=== PATIENT | male | born 1965 | race Caucasian/White ===

== ENCOUNTER 2020-01-31 17:36 | Emergency (ER) | payer BC, SELFPAY ==
[2020-01-31 17:45] VITALS: BP 146/83; PULSE 76; RESP 20; TEMP 36.8; O2SAT 97
--- NOTE | 2020-01-31 18:13 | ED.LOWEXIN ---
HPI - Extremity Injury (Lower) General Chief Complaint: Extremity Injury, Lower Stated Complaint: leg pain Source: patient Mode of arrival: ambulatory Limitations: no limitations History of Present Illness HPI Narrative: 54-year-old male presents to express care with complaints of erythema and swelling to his bilateral lower legs for the past 2 days. Patient reports that he has history of cellulitis to his bilateral lower legs for the past 5 to 7 years. Patient reports that he has increased his Lasix to 40 mg twice daily for the past 2 days but has noticed a decreased urine output. Patient reports history of congestive heart failure and stage III kidney failure. Patient denies chest pain, shortness of breath, fever, body aches or chills. Patient reports that he has not been wearing his compression stockings as instructed. MD complaint: other (BLE swelling and erythema ) Onset (ago): day(s) (2) Relieving factors: nothing Exacerbating factors: nothing Other symptoms: none Related Data Home Medications Medication Instructions Recorded Confirmed allopurinol 100 mg PO 01/31/20 amlodipine 5 mg PO DAILY 01/31/20 01/31/20 atorvastatin 40 mg PO DAILY 01/31/20 01/31/20 buspirone 5 mg PO BID 01/31/20 01/31/20 carvedilol 25 mg PO BID 01/31/20 01/31/20 furosemide 20 mg PO DAILY 01/31/20 01/31/20 gabapentin 300 mg PO TID 01/31/20 01/31/20 isosorbide mononitrate 30 mg PO DAILY 01/31/20 01/31/20 paroxetine HCl 10 mg PO DAILY 01/31/20 01/31/20 Allergies Allergy/AdvReac Type Severity Reaction Status Date / Time No Known Allergies Allergy Verified 01/31/20 17:56 Review of Systems Constitutional: Constitutional: Denies chills, Denies fatigue, Denies fever(s) and Denies weakness ENT: Denies dysphagia, Denies dizziness, Denies epistaxis, Denies nasal congestion and Denies sore throat Cardiovascular: Cardiovascular: Denies chest pain, Denies rapid heart rate, Denies radiating jaw, neck or arm pain and Denies slow heart rate Respiratory: Respiratory: Denies cough, Denies dyspnea and Denies wheezing Gastrointestinal: Gastrointestinal: Denies abdominal pain, Denies diarrhea, Denies nausea and Denies vomiting Integumentary/Breasts: Comments: Erythema and swelling to bilateral lower legs with radial forearm and the last medium minutes Endocrine: Endocrine: Denies fatigue PMFSH Past Medical History Medical History (Updated 01/31/20 @ 18:20 by Shantel Tomlinson APRN) CHF (congestive heart failure) Kidney failure Social History Social History (Updated 01/31/20 @ 18:16 by Shantel Tomlinson APRN) Smoking status: Never smoker Exam Const: General: no acute distress and alert Nutritional Appearance: well nourished and obese Orientation/consciousness: patient oriented x3 Neck: Neck: normal visual inspection Resp: Effort & Inspection: normal respiratory effort Auscultation: clear to auscultation bilaterally Cardio: Rate: regular rate, not bradycardic and not tachycardic Rhythm: regular rhythm Heart sounds: no murmurs Back/Spine/Pelvis: Back: no CVA tenderness Skin: General skin exam: normal color Other: Erythema noted to bilateral lower legs. 2+ edema noted to bilateral lower legs. Full range of motion noted. Neuro: General: patient oriented x3, moves all extremities, no meningeal signs and no focal motor deficits Extrem: General: edema (2+) bilateral (lower legs) Other: Mild cellulitis noted to bilateral lower legs. There are some areas of excoriation noted to lower legs. Psych: Appearance: grossly normal Mental Status: mental status grossly normal Affect: normal affect Attitude: cooperative Course Vital Signs Vital signs: Vital Signs Temperature 36.8 C 01/31/20 17:45 Pulse Rate 76 01/31/20 17:45 Respiratory Rate 20 01/31/20 17:45 Blood Pressure 146/83 H 01/31/20 17:45 Pulse Oximetry 97 01/31/20 17:45 Temperature 36.8 C 01/31/20 17:45 Pulse Rate 76 01/31/20 17:45 Respiratory Rate 2
== END 2020-01-31 18:14 | disposition short-term general hospital (02) ==
LOC: EXPGLEN 17:41
PROVIDERS: Emergency Provider Nurse Practitioner Family; PCP Physician Assistant
DX: L03.116 Cellulitis of left lower limb (principal); L03.115 Cellulitis of right lower limb; R60.0 Localized edema; I13.0 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 chronic kidney disease, or unspecified chronic kidney disease; N18.3 Chronic kidney disease, stage 3 (moderate); I50.9 Heart failure, unspecified
CPT/HCPCS: 99212; G0463

== ENCOUNTER 2020-01-31 18:41 | Emergency (ER) | payer BC, SELFPAY ==
--- NOTE | ~2020-01-31 | XR_ITS ---
EXAMINATION: XR chest 2V EXAM DATE: 01/31/2020 19:28 INDICATION: Shortness of breath, CHF. Leg swelling. Stage III kidney disease. TECHNIQUE: Portable AP frontal chest x-ray was obtained. There is no prior study for comparison. FINDINGS: There is mild cardiomegaly. There is pulmonary vascular congestion. No confluent consolidat ion, pneumothorax or pleural effusion suspected. There are no osseous abnormalities identified. IMPRESSION: Cardiomegaly, pulmonary vascular congestion. Reviewed, dictated and finalized at location A.
[2020-01-31 18:48] VITALS: PULSE 85; RESP 26; TEMP 37; O2SAT 98
[2020-01-31 18:56] VITALS: PULSE 82
--- NOTE | 2020-01-31 18:59 | ECG_ITS ---
Measurements Intervals [place] Rate: 83 P: 60 GA: 167 QRS: 44 QRSD: 118 T: 18 QT: 403 QTc: 476 Interpretive Statements SINUS RHYTHM LEFT ATRIAL ENLARGEMENT INTRAVENTRICULAR CONDUCTION DELAY BASELINE ARTIFACT- I, II, III, AVR, AVL, AVF, V1 BORDERLINE ECG Electronically Signed On 02-01-2020 7:03:59 CDT by José Kline D.O.
[2020-01-31 19:09] LABS: Basophils Absolute Auto 0.1 K/mm3 (0.0-0.1); Basophils Percent Auto 0.5 % (0.2-1.2); Eosinophils Absolute Auto 0.7 K/mm3 (0-0.3); Eosinophils Percent Auto 5.2 % (0-4.4); Hematocrit 41.1 % (42.0-52.0); Immature Granulocyte Absolute 0.04 K/mm3 (0.00-0.031); Immature Granulocyte Percent A 0.3 % (0-0.5); Lymphocytes Absolute Auto 3.29 K/mm3 (0.9-3.2); Lymphocytes Percent Auto 25.3 % (18.3-44.2); Mean Corpuscular HGB Conc 31.6 g/dl (32-36); Mean Corpuscular Volume 91.5 fl (80-100); Mean Platelet Volume 11.7 fl (7.4-10.4); Monocytes Percent Auto 7.9 % (2.6-8.5); Neutrophils Absolute Auto 7.9 K/mm3 (1.3-6.7); Neutrophils Percent Auto 60.8 % (45.5-73.1); Platelet Count Result 271 k/mm3 (150-375); Red Blood Count 4.49 M/mm3 (4.6-6.20); Red Cell Distribution Width 15.3 % (11.5-14.5)
--- NOTE | 2020-01-31 19:09 | ED.SOB ---
HPI - SOB/Dyspnea General Chief Complaint: Shortness of Breath/Dyspnea Stated Complaint: Cellulitis bilateral legs Time Seen by Provider: 01/31/20 18:56 Source: patient Mode of arrival: ambulatory Limitations: no limitations History of Present Illness HPI Narrative: This patient is a 54 year old male with history Chronic kidney disease, CHF, sleep apnea who presents from [facility] care for evaluation of leg swelling and shortness of breath. He states over the past 2 days he has had increase swelling to bilateral leg and he reports some orthopnea. He noticed walking into ER he is little more sob. He also noticed some redness to both of his legs. He denies fever , chills, nausea, vomiting or chest pain. 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 He reports negative stress test in November, Related Data Home Medications Medication Instructions Recorded Confirmed allopurinol 200 mg PO BID 01/31/20 amlodipine 5 mg PO DAILY 01/31/20 01/31/20 atorvastatin 40 mg PO DAILY 01/31/20 01/31/20 buspirone 5 mg PO BID 01/31/20 01/31/20 carvedilol 25 mg PO BID 01/31/20 01/31/20 furosemide 20 mg PO BID 01/31/20 01/31/20 gabapentin 300 mg PO TID 01/31/20 01/31/20 isosorbide mononitrate 45 mg PO DAILY 01/31/20 01/31/20 paroxetine HCl 10 mg PO DAILY 01/31/20 01/31/20 Allergies Allergy/AdvReac Type Severity Reaction Status Date / Time No Known Allergies Allergy Verified 01/31/20 17:56 Review of Systems Review of Systems: All systems reviewed & are unremarkable except as noted in HPI and below Constitutional: Constitutional: Denies chills and Denies fever(s) Respiratory: Respiratory: Denies chest congestion, Denies cough, Reports dyspnea and Denies wheezing Gastrointestinal: Gastrointestinal: Denies abdominal pain, Denies diarrhea, Denies nausea and Denies vomiting [facility] Past Medical History Medical History (Updated 01/31/20 @ 21:55 by Meg Delgado MD) CHF (congestive heart failure) Kidney failure Social History Social History (Updated 01/31/20 @ 18:16 by Shantel Tomlinson APRN) Smoking status: Never smoker Exam Const: General: alert Nutritional Appearance: obese Orientation/consciousness: patient oriented x3 HENMT: Face and sinus: face symmetric Mouth: Yes Normal oral and palatal mucosa present, Yes lip normal and Yes oropharynx normal Eyes: EOM: EOMs intact bilaterally Chest: Chest palpation & inspection: normal inspection of the chest Resp: Effort & Inspection: normal respiratory effort, no retractions and no use of accessory muscles Auscultation: clear to auscultation bilaterally Cardio: Rate: regular rate Rhythm: regular rhythm Heart sounds: no murmurs GI: GI Palp: Yes Soft to palpation, No Tenderness to palpation present (GI), No Guarding due to palpation present (GI) and No Rigid due to palpation Back/Spine/Pelvis: Back: no CVA tenderness Skin: Other: bilateral lower legs with dry scaly mildly erythematous skin, stasis dermatitis Neuro: General: patient oriented x3, moves all extremities and No CN's II-XI intact bilaterally Extrem: General: edema bilateral (leg) Psych: Mental Status: mental status grossly normal Affect: normal affect Course Reevaluation(s) Reevaluation #1: I discussed with patient that chest xray shows congestion and chronic kidney disease. He is not requiring oxygen and he is no acute distress. I discussed option of IV lasix in hospital versus going home. HE states he is comfortable with discharge home . He has follow up with his sheet tailer next week. Date: 01/31/20 Time: 21:49 Vital Signs Vital signs: Vital Signs Temperature 98.6 F 01/31/20 18:48 Pulse Rate 85 01/31/20 18:48 Respiratory Rate 26 H 01/31/20 18:48 Pulse Oximetry 98 01/31/20 18:48 Temperature 98.4 F 01/31/20 22:19 Pulse Rate 96 01/31/20 22:19 Respiratory Rate 18 01/31/20 22:19 Blood Pressure 156/95 H 01/31/20 22:19 Pulse Oximetry 95 01/31/20 22
[2020-01-31 19:14] LABS: INR 1.1; Prothrombin Time 13.4 Seconds (11.1-14.7)
[2020-01-31 19:15] LABS: Partial Thromboplastin Time 20.1 SECONDS (22.3-36.8)
[2020-01-31 19:18] LABS: Anion Gap 6 mmol/L (8-16); Blood Urea Nitrogen 31 mg/dL (9-20); Calcium 8.6 mg/dL (8.4-10.2); Carbon Dioxide 33 mmol/L (22-30); Chloride 100 mmol/L (98-107); Estimated Glomerular Filt Rate 42; Glucose 93 mg/dL (75-110); Potassium 4.3 mmol/L (3.4-5.0); Sodium 139 mmol/L (137-145)
[2020-01-31 19:30] LABS: NT Pro B Type Natriuretic Pept 1360 PG/ML (5-100); Troponin I < 0.012 ng/mL (0.000-0.034)
[2020-01-31] MEDS: FUROSEMIDE INJ 40 MG/4 ML VIAL IV PUSH (20:11)
[2020-01-31 22:19] VITALS: BP 156/95; PULSE 96; RESP 18; TEMP 36.9; O2SAT 95
== END 2020-01-31 22:11 | disposition home or self-care (01) ==
PROVIDERS: Emergency Provider General Practice; PCP Physician Assistant
DX: I50.9 Heart failure, unspecified (principal); N18.9 Chronic kidney disease, unspecified; G47.30 Sleep apnea, unspecified; I45.9 Conduction disorder, unspecified; R94.31 Abnormal electrocardiogram [ECG] [EKG]; I51.7 Cardiomegaly
CPT/HCPCS: 36415; 71046; 80048; 83880; 84484; 85025; 85610; 85730; 93005; 96374; 99284; J1940

== ENCOUNTER 2020-09-10 13:54 | Outpatient (CLI) | payer OTHER, BC, SELFPAY ==
--- NOTE | 2020-09-10 15:00 | NEURO_ITS ---
Impression: # Complains of left upper extremity pain. # No Carpal Tunnel Syndrome. # Left ulnar neuropathy. # Left median response on stimulation at the elbow is polyphasic; Suggestive of neuropathy above the wrist. # Normal needle/EMG exam. # Clinical correlation recommended. Nerve Conduction Studies Anti Sensory Summary Table Stim Site NR Peak (ms) P-T Amp (?V) Site1 Site2 Delta-P (ms) Dist (cm) Antoine (m/s) Left Median Anti Sensory (2-3nd Digit) Wrist 3.4 87.7 Wrist 2-3nd Digit 3.4 14.0 41 Wrist 3.7 55.0 Wrist 2-3nd Digit 3.4 14.0 41 Right Median Anti Sensory (2-3nd Digit) Wrist 3.6 21.1 Wrist 2-3nd Digit 3.6 14.0 39 Wrist 3.6 8.3 Wrist 2-3nd Digit 3.6 14.0 39 Left Radial Anti Sensory (Base 1st Digit) Wrist 2.2 14.1 Wrist Base 1st Digit 2.2 0.0 Right Radial Anti Sensory (Base 1st Digit) Wrist 2.7 10.9 Wrist Base 1st Digit 2.7 0.0 Left Ulnar Anti Sensory (5th Digit) Wrist 3.8 35.4 Wrist 5th Digit 3.8 14.0 37 Right Ulnar Anti Sensory (5th Digit) Wrist 3.0 32.6 Wrist 5th Digit 3.0 14.0 47 Motor Summary Table Stim Site NR Onset (ms) O-P Amp (mV) Site1 Site2 Delta-0 (ms) Dist (cm) Antoine (m/s) Left Median Motor (Abd Poll Brev) Wrist 3.6 2.3 Elbow Wrist 6.2 32.0 52 Elbow 9.8 0.3 Right Median Motor (Abd Poll Brev) Wrist 4.2 1.5 Elbow Wrist 5.6 30.0 54 Elbow 9.8 0.5 Left Ulnar Motor (Abd Dig Minimi) Wrist 3.1 5.6 A Elbow Wrist 6.9 32.0 46 A Elbow 10.0 2.9 B Elbow Wrist 6.1 30.0 49 B Elbow 9.2 4.6 Right Ulnar Motor (Abd Dig Minimi) Wrist 3.5 4.9 A Elbow Wrist 5.5 31.0 56 A Elbow 9.0 2.8 F Wave Studies NR F-Lat (ms) L-R F-Lat (ms) Left Median (Mrkrs) (Abd Poll Brev) 31.65 0.24 Right Median (Mrkrs) (Abd Poll Brev) 31.40 0.24 Left Ulnar (Mrkrs) (Abd Dig Min) 32.91 0.23 Right Ulnar (Mrkrs) (Abd Dig Min) 33.15 0.23 EMG Side Muscle Nerve Root Ins Act Fibs Amp Dur Recrt Comment Right 1stDorInt Ulnar C8-T1 Nml Nml Nml Nml Nml Right Ext Indicis Radial (Post Int) C7-8 Nml Nml Nml Nml Nml Right Ext Digitorum Radial (Post Int) C7-8 Nml Nml Nml Nml Nml Right BrachioRad Radial C5-6 Nml Nml Nml Nml Nml Right PronatorTeres Median C6-7 Nml Nml Nml Nml Nml Right Abd Poll Brev Median C8-T1 Nml Nml Nml Nml Nml Left 1stDorInt Ulnar C8-T1 Nml Nml Nml Nml Nml Left Ext Indicis Radial (Post Int) C7-8 Nml Nml Nml Nml Nml Left Ext Digitorum Radial (Post Int) C7-8 Nml Nml Nml Nml Nml Left BrachioRad Radial C5-6 Nml Nml Nml Nml Nml Left PronatorTeres Median C6-7 Nml Nml Nml Nml Nml Left Abd Poll Brev Median C8-T1 Nml Nml Nml Nml Nml MTDD
== END 2020-09-10 13:55 | disposition home or self-care (01) ==
PROVIDERS: Family Provider Emergency Medicine; PCP Physician Assistant; Visit Provider Orthopaedic Surgery
DX: G56.22 Lesion of ulnar nerve, left upper limb (principal); M48.02 Spinal stenosis, cervical region
CPT/HCPCS: 95886; 95911

== ENCOUNTER 2020-09-15 15:59 | Outpatient (CLI) | payer OTHER, BC, SELFPAY ==
--- NOTE | ~2020-09-15 | MR_ITS ---
EXAMINATION: MR cervical spine wo con DATE: 09/15/2020 16:53 INDICATION: Cervical spinal stenosis. Neck pain. TECHNIQUE: Magnetic resonance imaging (MRI) of the cervical spine was performed without intravenous c ontrast. Sequences included sagittal T2-weighted FSE, sagittal STIR FSE, sagittal T1-weighted FSE, ax ial MERGE, and axial T2-weighted FSE. COMPARISON: None FINDINGS: There is kyphosis of cervical spine. Vertebral body heights are normal. There is mildly dec reased disc height at C5-C6 and C6-C7. The spinal cord signal intensity is normal. The following disc levels are specifically discussed: C2-C3: The disc does not extend beyond the endplate margin. There is no uncovertebral joint osteoarth ritis. There is mild left facet joint osteoarthritis. There is ankylosis of right facet joint with mo derate hypertrophy. There is no neural foraminal stenosis. There is no central canal stenosis. C3-C4: The disc does not extend beyond the endplate margin. There is mild bilateral uncovertebral esther nt hypertrophy. There is mild right facet joint osteoarthritis. There is ankylosis of left facet join t with severe hypertrophy. There is mild left neural foraminal stenosis. There is no central canal st enosis. C4-C5: The disc is bulging. There is mild bilateral uncovertebral joint osteoarthritis. There is iwona re right and moderate left facet joint osteoarthritis. There is mild bilateral neural foraminal steno sis. There is mild central canal stenosis. C5-C6: The disc is bulging. There is severe bilateral uncovertebral joint osteoarthritis. There is mi ld left facet joint osteoarthritis. There is mild right and moderate left neural foraminal stenosis. There is mild central canal stenosis. C6-C7: The disc is bulging. There is severe bilateral uncovertebral joint osteoarthritis. There is no facet joint osteoarthritis. There is moderate right and mild left neural foraminal stenosis. There i s mild central canal stenosis. C7-T1: The disc is bulging. There is mild bilateral uncovertebral joint osteoarthritis. There is mild bilateral facet joint osteoarthritis. There is mild left neural foraminal stenosis. There is no cent ral canal stenosis. IMPRESSION: 1. Moderate cervical spondylosis. Reviewed, dictated and finalized at location A.
== END 2020-09-15 16:00 | disposition home or self-care (01) ==
PROVIDERS: PCP Physician Assistant; Visit Provider Orthopaedic Surgery
DX: M48.02 Spinal stenosis, cervical region (principal); M47.812 Spondylosis without myelopathy or radiculopathy, cervical region
CPT/HCPCS: 72141

== ENCOUNTER 2024-05-15 08:05 | Outpatient (CLI) | payer BC, SELFPAY ==
--- NOTE | ~2024-05-15 | MR_ITS ---
EXAMINATION: MR cervical spine wo con DATE: 05/15/2024 08:45 INDICATION: Neck pain. TECHNIQUE: Magnetic resonance imaging (MRI) of the cervical spine was performed without intravenous c ontrast. COMPARISON: MR cervical spine 09/15/2010 FINDINGS: There is kyphosis of cervical spine. There is 2 mm anterolisthesis of C4 on C5. Vertebral b jody heights are normal. There is mildly decreased disc height at C4-C5, C5-C6, and C6-C7 and moderate ly decreased disc height at C7-T1. The spinal cord signal intensity is normal. The following disc lev els are specifically discussed: C2-C3: The disc does not extend beyond the endplate margin. There is no uncovertebral joint osteoarth ritis. There is ankylosis of the right facet joint with moderate hypertrophy. There is mild right jean ral foraminal stenosis. There is no central canal stenosis. C3-C4: The disc does not extend beyond the endplate margin. There is no uncovertebral joint hypertrop hy. There is moderate right facet joint osteoarthritis. There is ankylosis of left facet joint with m oderate hypertrophy. There is mild bilateral neural foraminal stenosis. There is no central canal ladan nosis. C4-C5: The disc is bulging. There is mild bilateral uncovertebral joint osteoarthritis. There is iwona re bilateral facet joint osteoarthritis. There is mild bilateral neural foraminal stenosis. There is mild central canal stenosis. C5-C6: The disc is bulging. There is moderate right and severe left uncovertebral joint osteoarthriti s. There is mild bilateral facet joint osteoarthritis. There is mild bilateral neural foraminal steno sis. There is mild central canal stenosis. C6-C7: The disc is bulging. There is severe bilateral uncovertebral joint osteoarthritis. There is mi ld bilateral facet joint osteoarthritis. There is mild bilateral neural foraminal stenosis. There is no central canal stenosis. C7-T1: The disc is bulging. There is mild right and moderate left uncovertebral joint osteoarthritis. There is severe bilateral facet joint osteoarthritis. There is mild bilateral neural foraminal steno sis. There is mild central canal stenosis. IMPRESSION: 1. Moderate cervical spondylosis, mildly worsened from 09/15/2020. Reviewed, dictated and finalized at location A. D [facility]
--- OUTSIDE RECORDS SUMMARY | 2024-05-22 05:40 | XMS_ITS | Clinical Summary ---
Author Organization [facility] Address [address] [place] [address] Care Team Providers Care Philosophy And Religion Instructor Name Role Phone Puneet Hughes MD Primary Care Provider [phone] Source Comments [facility],non-owned Affiliates and Associated Physician Practices is amultiple site organization consisting of ambulatory clinics and hospital sitesin [place], [place], [place] and [place]. This disclosure is being madepursuant to the Care Everywhere program and may not contain all information available regarding this patient. Last updated 18.[facility] Allergies Active Allergy Reactions Criticality Noted Date Comments Aspirin Unknown Medium 08/04/2020 hematuria Medications * Be aware that medications may not be up to date on this document. Alwaysverify current medications with the patient. Medication Sig Dispensed Refills Start Date End Date Status atorvastatin (LIPITOR) 40 MG tablet every 24 hours Active Multiple Vitamin (DAILY-RAKESH) TABS Take 1 tablet by mouth once daily Active Cyanocobalamin (B-12 PO) Active CALCIUM PO Active furosemide (LASIX) 40 MG tablet Take 0.5 (one-half) tablet by mouth every other day as needed 05/13/2020 Active acetaminophen (TYLENOL) 325 MG tablet Take 2 (two) tablets by mouth 11/07/2019 Active allopurinol (ZYLOPRIM) 100 MG tablet 03/03/2021 Active gabapentin (NEURONTIN) 600 MG tablet 03/05/2021 Active loratadine (Claritin) 10 MG tablet Take 1 (one) tablet by mouth once daily as directed. 03/03/2023 Active aspirin (Aspirin) 81 MG chew tabletIndications:Ch est pain, unspecified type Take 1 (one) tablet by mouth once daily 100 tablet 4 06/21/2023 Active nitroGLYCERIN (Nitrostat) 0.4 MG tabletIndications:Ch est pain, unspecified type Dissolve 1 (one) tablet under the tongue every 5 minutes as needed for Angina 30 tablet 06/21/2023 Active metoprolol succinate XL 24hr (Toprol XL) 25 MG tabletIndications:Ch est pain, unspecified type TAKE 1 TABLET BY MOUTH EVERY DAY 90 tablet 06/21/2023 Active Active Problems Problem Noted Date Diagnosed Date Chest pain, unspecified type 06/23/2023 Bilateral leg edema 01/16/2021 Lymphedema of both lower extremities 01/16/2021 Acute pain of right knee 11/20/2020 Heart palpitations 07/24/2020 Assessment & Plan (08/26/2020 9:33 AM CDT): Device with no concern for arrhythmia or PVC burden, continue BB. No further work up at this time. Assessment & Plan (07/24/2020 12:59 PM RUBBER GOODS SUPERVISOR): Unclear Etiology, 14 day Holter, BB. Congestive heart failure 02/01/2020 Assessment & Plan (07/24/2020 12:04 PM RU[employer]ER [employer] SUPERVISOR): Stable and Euvolemicon Exam. HFpEF. Continue Coreg 25 mg BID and Imdur 30mg daily. No maco, aldactone or ARB given CKD and Hyperkalemia in the past. Morbid obesity 02/01/2020 Assessment & Plan (05/04/2021 1:46 PM [employer]ER [employer] SUPERVISOR): SP gastric sleeve. Now with weight loss of 90lbs. Stable. Will need to monitor blood pressure as weight loss stabilizes. Pulmonary hypertension 11/07/2019 Assessment & Plan (11/09/2019 11:32 AM CDT): CT mentioned, however ECHO in May said no PHNT, pt has follow up with OSH Pulmonary team. Continue Lasix, CPAP and Oxygen therapy. Orthostasis 11/07/2019 Assessment & Plan (11/09/2019 11:31 AM CDT): Resolved in the setting of dehydration and ETOH and antihypertensives. No further work up at this time. Acute on chronic diastolic heart failure 020 Assessment & Plan (08/26/2020 9:32 AM CDT): Chronic HFpEF with 40lb weight loss since 08/04 following gastric sleeve. Now with orthostatic changes and hypotension at home. No MACO?ARB given CKD. Stop Imdur and change lasix to PRN weight gain, edema. Decrease Coreg to 12.5mg BID. Message in one week with update on SBP at home. Follow up as scheduled with Dr. Moreno in January 2021. Near syncope 11/03/2019 Chest pain 06/11/2019 Assessment & Plan (06/21/2023 8:23 PM RU[employer]ER [employer] SUPERVISOR): The history is very concerning. The characteristics, recent onset, exertional onset, alleviated by rest, frequency and duration are concerning. Conversely, the fact that he had the pain in 2019 for which he underwent cardiac cath demonstrating nonobstructive coronary arteries perhaps makes it slightly less likely to be cardiac. In sum, I still think urgent evaluation is warranted given the history. -Arrange urgent cardiac catheterization within days -Advised the patient if the symptomatology changes (especially duration and intensity), he should revisit the ER before arranged outpatient cardiac catheterization -Start aspirin -Start metoprolol succinate, nitroglycerin as needed -Obtain echo Need for influenza vaccination 05/13/2019 Class 3 severe obesity due t o excess calories without serious comorbidity with body mass index (BMI) of 45.0 to 49.9 in adult 05/13/2019 Essential hypertension 05/13/2019 Assessment & Plan (06/21/2023 8:25 PM RU[employer]ER [employer] SUPERVISOR): Endorses blood pressure within goal at home. Adding metoprolol as mentioned. Assessment & Plan (05/07/2021 11:24 AM RU[employer]ER [employer] SUPERVISOR): SBP 120 at home, with DBP in the 70's per his report. Will continue to monitor at home, can consider resuming low dose Coreg 3.125mg BID if needed. Pt will reach out if warrants. After review of his medications, he has no contraindication to ED medications, PRN. Assessment & Plan (11/09/2019 11:30 AM CDT): Continue Coreg, Norvasc and Lasix. LVH (left ventricular hypert rophy) due to hypertensive disease, with heart failure 05/13/2019 Assessment & Plan (06/21/2023 8:24 PM RU[employer]ER [employer] SUPERVISOR): Repeat echo Assessment & Plan (11/09/2019 11:29 AM CDT): Pt resumed Coreg and Norvasc after hospital discharge. Continue Coreg 25g BID, Norvasc 5mg daily and Lasix 20mg BID BMP next week. Lisinopril stopped hyperklemia. Mixed hyperlipidemia 05/13/2019 Assessment & Plan (06/21/2023 8:24 PM RU[employer]ER [employer] SUPERVISOR): Continue atorvastatin Check lipid profile Pedal edema 05/13/2019 Assessment & Plan (05/04/2021 1:48 PM RU[employer]ER [employer] SUPERVISOR): Resume Lasix daily, will help with hyperkalemia and lower extremity edema. Assessment & Plan (11/09/2019 11:30 AM CDT): Support stockings and Lasix 20mg BID. CRD (chronic renal disease), stage II 05/13/2019 Assessment & Plan (08/26/2020 9:34 AM CDT): Follow up with Nephrology for recs on Hyperkalemia, off all potassium sparing agents. Their team for recs for resuming Valtessa. Appreciate their rec, imdur stopped, coreg decreased and lasix changed to PRN. Assessment & Plan (07/24/2020 12:07 PM RU[employer]ER [employer] SUPERVISOR): Follow up with Nephrology for recs on Hyperkalemia, off all potassium sparing agents. Their team for recs for resuming Valtessa. Chronic right heart failure 05/13/2019 Snoring 05/13/2019 MIRELLA (obstructive sleep apnea) 05/13/2019 Assessment & Plan (08/26/2020 9:34 AM CDT): Compliant with CPAP. Assessment & Plan (07/24/2020 12:04 PM RU[employer]ER [employer] SUPERVISOR): Compliant with CPAP. Assessment & Plan (11/09/2019 11:31 AM CDT): CPAP. Resolved Problems Problem Noted Date Diagnosed Date Resolved Date Cerebrovascular accident (CV A) due to occlusion of cerebral artery 11/20/2020 11/21/2020 Immunizations Name Administration Dates Next Due INFLUENZA 02/24/2020 INFLUENZA VACCINE, QUADR. (F LUZONE; FLULAVAL; FLUARIX; AFLURIA QUADRIVALENT; 6MO+), 0.5 ML (IIV4) 05/11/2019 PNEUMOCOCCAL PPSV23 03/31/2020,04/29/2015 Family History Medical History Relation Name Comments Other Mother pulmonary hyper tension Other Nephew pulmonary hyper tension Relation Name Status Comments Mother Nephew Social History Tobacco Use Types Packs/Day Years Used Date Smoking Tobacco: Never Smokeless Tobacco: Never Tobacco Cessation:Counseling Given: Not Answered Alcohol Use Standard Drinks/Week Comments Yes 0 (1 standard drink = 0.6 oz pur e alcohol) 2 drinks per month Sex and Gender Information Value Date Recorded Sex Assigned at Not on file Gender Identity Not on file Sexual Orientation Not on file Last Filed Vital Signs Vital Sign Reading Time Taken Comments Blood Pressure 130/81 06/23/2023 7:01 PM [employer]ER [employer] SUPERVISOR Pulse 51 06/23/2023 7:01 PM [employer] SUPERVISOR Temperature 36.7 ??C (98.1 ??F) 06/23/2023 4:28 PM CS T Respiratory Rate 15 06/23/2023 7:01 PM [employer] SUPERVISOR Oxygen Saturation 95% 06/23/2023 7:01 PM [employer] SUPERVISOR Inhaled Oxygen Concentration 30% 11/21/2020 4 :22 AM CDT Weight 122.7 kg (270 lb 9.6 oz) 024 11:51 AM [employer]ER [employer] SUPERVISOR Height 185.4 cm (6' 1 ) 06/23/2023 11:5 1 AM [employer] SUPERVISOR Body Mass Index 35.7 06/23/2023 11:51 AM [employer]ER [employer] SUPERVISOR Plan of Treatment Health Maintenance Due Date Last Done Comments COLOGUARD (AGES 45-75) - COLON CA SCREENING 1964 COLON MONITORING 1964 COLONOSCOPY - COLON CA SCREENING 1964 CT COLONOGRAPHY - COLON CA SCREENING 1964 Colorectal Cancer Screening 1964 FIT - COLON CA SCREENING 1964 FLEX SIG - COLON CA SCREENING 1964 DTAP/TDAP/TD VACCINES (1 - Tdap) 11/13/1983 HEPATITIS B VACCINE (1 of 3 - 19+ 3-dose series) 11/13/1983 ZOSTER VACCINE (1 of 2) 2014 PNEUMOCOCCAL VACCINE (2 of 2 - PCV) 03/31/2021 03/31/2020, 04/29/2015 DEPRESSION SCREENING 05/23/2023 COVID-19 VACCINE (4 - season) 2024 04/27/2021, 07/09/2020, 06/06/2020 INFLUENZA VACCINE (#1) 2024 2, 02/24/2020, 05/11/2019, Additional history exists SCREENING FOR DIABETES 06/19/2026 4, 04/20/2021, 04/20/2021, Additional history exists HEPATITIS C SCREENING Completed 06/11/2019 HIV SCREENING Completed 06/11/2019 HIB VACCINE Aged Out No longer eligi ble based on patient's age to complete this topic HPV VACCINE Aged Out No longer eligi ble based on patient's age to complete this topic MENINGOCOCCAL VACCINE Aged Out No leigh ann negrita eligible based on patient's age to complete this topic Goals Goal Patient Goal Type Associated Problems Recent Progress Patient-Stated? Author Medication Management General On track( 021 3:13 PM CDT) Zoraida Conde, RN Note: Expected end date: ongoing Interventions: Take all medications as prescribed Let your doctor know right away about any changes in your medications Make sure to request a refill of your medication at least one week prior to your last dose Procedures Procedure Name Priority Date/Time Associated Diagnosis Comments COMPREHENSIVE METABOLIC PANEL STAT 06/19/2023 3:57 PM [employer]ER [employer] SUPERVISOR HEPATITIS C AB SCREEN RFLX NAAT QUANT STAT 06/11/2019 10:29 PM [employer] SUPERVISOR HIV-1 HIV-2 ANTIGEN/ANTIBODY STAT 06/11/2019 10:29 PM [employer]ER [employer] SUPERVISOR from Last 3 Months or Most Recently Relevant to Health Maintenance Results * (ABNORMAL) COMPREHENSIVE METABOLIC PANEL (06/19/2023 3:57 PM [employer]ER [employer] SUPERVISOR) BUN 23 7 - 26 mg/dL 06/19/2023 4:57 PM [facility] Creatinine 1.36(H) 0.71 - 1.16 mg/dL 06/19/2023 4:57 PM [facility] Sodium 142 136 - 145 mmol/L 06/19/2023 4:57 PM [facility] Potassium 4.2 3.5 - 4.5 mmol/L 06/19/2023 4:57 PM [facility] Chloride 106 98 - 107 mmol/L 06/19/2023 4:57 PM [facility] CO2 28 22 - 29 mmol/L 06/19/2023 4:57 PM [facility] Glucose 88 70 - 115 mg/dL 06/19/2023 4:57 PM [facility] Calcium 9.2 8.4 - 10.2 mg/dL 06/19/2023 4:57 PM [facility] Protein Total 7.5 6.0 - 8.3 g/dL 06/19/2023 4:57 PM [facility] Albumin 3.4 3.4 - 5.0 g/dL 06/19/2023 4:57 PM [facility] Bilirubin Total 0.5 0.2 - 1.2 mg/dL 06/19/2023 4:57 PM [facility] Alkaline Phosphatase 105 40 - 150 U/L 06/19/2023 4:57 PM [facility] ALT 18 5 - 55 U/L 06/19/2023 4:57 PM [facility] AST 24 5 - 34 U/L 06/19/2023 4:57 PM [facility] Anion Gap 8 6 - 16 06/19/2023 4:57 PM [facility] BUN/Creatinine Ratio 17 7 - 23 06/19/2023 4:57 PM [facility] Osmolality Calculated 297(H) 275 - 295 mOsm/kg 06/19/2023 4:57 PM [facility] Albumin/Globulin Ratio 0.8(L) 1.1 - 2.3 06/19/2023 4:57 PM [facility] eGFR by CKD-EPI 60(L) >=90 mL/min/1.7 3 m2 06/19/2023 4:57 PM [facility] Blood BLOOD SPECIMEN / Unknown Venipuncture / Unknown 06/19/2023 3:57 PM [employer] SUPERVISOR 06/19/2023 4:27 PM [employer] SUPERVIS[employer] Nena Ro PA-C LAB - CHEMISTRY OR DERABLES Performing Organization Address [facility]/ZIP Co de Phone Number [facility] [address] [place] [address], [place] [phone] * HIV-1 HIV-2 ANTIGEN/ANTIBODY (06/11/2019 10:29 PM [employer]ER [employer] SUPERVISOR) HIV Antigen/Antibod y 1 & 2 Non-reacti ve Non-react almaz 06/11/2019 11:16 [address] [employer] [facility] Comment: Neither HIV-1 p24 Antigen nor HIV-1/HIV-2 Antibodies are detected. ? Blood BLOOD SPECIMEN / Unknown Venipuncture / Unknown 06/11/2019 10:29 PM [employer]ER [employer] SUPERVISOR 06/11/2019 10:32 PM [employer] SUPERVIS[employer] Yonas Lao MD LAB - HEMATOLOGY ORD ERABLES [facility] [address] [place] [address], [facility] [phone] * HEPATITIS C AB SCREEN RFLX NAAT QUANT (06/11/2019 10:29 PM RU[employer]ER [employer] SUPERVISOR) Hepatitis C Antibody Non-react almaz Non-reac tive 06/11/2019 11:[address] [employer] [address] [facility] Comment: Hepatitis C Antibody screen indicates no serologic evidence of past or current infection with Hepatitis C Virus. Patients with unexplained liver disease who are immunocompromised or suspected of having acute Hepatitis C infection may benefit from Nucleic Acid Test (EARL) for Hepatitis C Viral RNA to confirm Hepatitis C status. Blood BLOOD SPECIMEN / Unknown Venipuncture / Unknown 06/11/2019 10:29 PM RU[employer]ER [employer] SUPERVISOR 06/11/2019 10:32 PM [employer]ER [employer] SUPERVISOR Yonas Lao MD LAB - CHEMISTRY [facility]NAN[facility] Organization Address City/State/ZIP Co de Phone Number [address] [phone] from Last 3 Months or Most Recently Relevant to Health Maintenance Advance Directives * Full Code (Latest Code Status on File) Date Activated Date Inactivated Comments 06/23/2023 4:39 PM 06/23/2023 8:33 PM * Full Code Date Activated Date Inactivated Comments 11/20/2020 8:16 AM 11/21/2020 6:45 PM * Full Code Date Activated Date Inactivated Comments 11/20/2020 8:08 AM 11/20/2020 8:16 AM * Full Code Date Activated Date Inactivated Comments 02/01/2020 11:23 PM 02/04/2020 11:32 AM * Full Code Date Activated Date Inactivated Comments 11/03/2019 10:16 PM 11/07/2019 12:27 PM Care Teams Philosophy And Religion Instructor Relationship Specialty Start Date End Date Puneet Hughes MD PCP - General Internal Medicine 06/21/23
--- OUTSIDE RECORDS SUMMARY | 2024-05-22 05:40 | XMS_ITS | Encounter Summary ---
Author Organization [facility] Address [address] [place] [address] Care Team Providers Care Package Handler Name Role Phone Puneet Hughes MD Primary Care Provider [phone] Encounter Details Date Type Department Care Team (Late st Contact Info) Description 07/27/2023 Orders Only [facility] - Cardiology [address], [facility] [address] [place] [id number] Chen Longoria RN Mixed hyperlipidemia ; LVH (left ventricular hypertrophy) due to hypertensive disease, with heart failure (HCC); Chronic right heart failure (HCC); Chest pain, unspecified type Social History Tobacco Use Types Packs/Day Years Used Date Smoking Tobacco: Never Smokeless Tobacco: Never Alcohol Use Standard Drinks/Week Comments Yes 0 (1 standard drink = 0.6 oz pur e alcohol) 2 drinks per month Sex and Gender Information Value Date Recorded Sex Assigned at Not on file Gender Identity Not on file Sexual Orientation Not on file documented as of this encounter Functional Status Functional Status Response Date of Assess ment Is person deaf or have serious hearing difficult y? No 06/23/2023 Is person blind or have serious difficulty seein g? Yes 06/23/2023 Does person have serious dif ficulty walking/climbing stairs? No 06/23/2023 Does person have difficulty dressing/bathing? No 06/23/2023 Does person have difficulty doing errands alone? No 06/23/2023 Cognitive Status Response Date of Assessm ent Does person have difficulty concentrating/remembering/making decisions? No 06/23/2023 documented as of this encounter Miscellaneous Notes * Addendum Note - Chen Longoria RN - 07/27/2023 2:59 PM CSTAddended by: CHEN LONGORIA on: 07/27/2023 02:59 PM Modules accepted: Orders ALTY CLAIMS SUPERVISOR documented in this encounter Plan of Treatment Scheduled Orders Name Type Priority Associated Diagnoses Orde r Schedule LIPID PROFILE Lab Routine Mixed hyperlipidemia Ordered: 07/27/2023 CBC W AUTO DIFFERENTIAL Lab Routine Mixed hyperlipidemia LVH (left ventricular hypertrophy) due to hypertensive disease, with heart failure (HCC) Chronic right heart failure (HCC) Chest pain, unspecified type 1 Occurrences starting 07/27/2023 until 08/26/2024 BASIC METABOLIC PANEL (CALCIUM TOTAL) Lab Routine Mixed hyperlipidemia LVH (left ventricular hypertrophy) due to hypertensive disease, with heart failure (HCC) Chronic right heart failure (HCC) Chest pain, unspecified type Ordered: 07/27/2023 documented as of this encounter Goals Goal Patient Goal Type Associated Problems Recent Progress Patient-Stated? Author Medication Management General On track( 021 3:13 PM CDT) No Zoraida Velasquez, RN Note: Expected end date: ongoing Interventions: Take all medications as prescribed Let your doctor know right away about any changes in your medications Make sure to request a refill of your medication at least one week prior to your last dose documented as of this encounter Visit Diagnoses Diagnosis Mixed hyperlipidemia- Primary LVH (left ventricular hypertrophy) due to hypertensive disease, with heart failure (HCC) Chronic right heart failure (HCC) Chest pain, unspecified type documented in this encounter Care Teams Package Handler Relationship Specialty Start Date End Date Puneet Hughes MD PCP - General Internal Medicine 06/21/23 documented as of this encounter
--- OUTSIDE RECORDS SUMMARY | 2024-05-22 05:40 | XMS_ITS | CONTINUITY OF CARE DOCUMENT ---
Author Name dwayne rice Address Unknown Organization [facility] Address [id number] [place] [address] [address] [place] [address] Phone [phone] Care Team Providers Care Lock Assembler Name Role Phone Dillon Savage MD Unavailable [phone] INSURANCE PROVIDERS Payer name Policy type / Coverage type [place] red green party ID [id number]
--- OUTSIDE RECORDS SUMMARY | 2024-05-22 05:40 | XMS_ITS | Referral Summary ---
Author Organization [facility] Address [address] [place] [address] Care Team Providers Care Print Shop Stenographer Name Role Phone Puneet Hughes MD Primary Care Provider [phone] Source Comments [facility],non-owned Affiliates and Associated Physician Practices is amultiple site organization consisting of ambulatory clinics and hospital sitesin [place], [place], [place] and [place]. This disclosure is being madepursuant to the Care Everywhere program and may not contain all information available regarding this patient. Last updated 18.[facility] Allergies Active Allergy Reactions Criticality Noted Date [...] time. Assessment & Plan (07/24/2020 12:59 PM MICROBIOLOGY TEACHER): Unclear Etiology, 14 day Holter, BB. Congestive heart failure 02/01/2020 Assessment & Plan (07/24/2020 12:04 PM MICROBIOLOGY TEACHER): Stable and Euvolemicon Exam. HFpEF. Continue Coreg 25 mg BID and Imdur 30mg daily. No maco, aldactone or ARB given CKD and Hyperkalemia in the past. Morbid obesity 02/01/2020 Assessment & Plan (05/04/2021 1:46 PM MICROBIOLOGY TEACHER): SP gastric sleeve. Now with weight loss [...] 06/11/2019 Assessment & Plan (06/21/2023 8:23 PM MICROBIOLOGY TEACHER): The history is very concerning. The characteristics, [...] 05/13/2019 Assessment & Plan (06/21/2023 8:25 PM MICROBIOLOGY TEACHER): Endorses blood pressure within goal at home. Adding metoprolol as mentioned. Assessment & Plan (05/07/2021 11:24 AM MICROBIOLOGY TEACHER): SBP 120 at home, with DBP in [...] 05/13/2019 Assessment & Plan (06/21/2023 8:24 PM MICROBIOLOGY TEACHER): Repeat echo Assessment & Plan (11/09/2019 11:29 AM CDT): Pt resumed Coreg and Norvasc after hospital discharge. Continue Coreg 25g BID, Norvasc 5mg daily and Lasix 20mg BID BMP next week. Lisinopril stopped hyperklemia. Mixed hyperlipidemia 05/13/2019 Assessment & Plan (06/21/2023 8:24 PM MICROBIOLOGY TEACHER): Continue atorvastatin Check lipid profile Pedal edema 05/13/2019 Assessment & Plan (05/04/2021 1:48 PM MICROBIOLOGY TEACHER): Resume Lasix daily, will help with hyperkalemia [...] PRN. Assessment & Plan (07/24/2020 12:07 PM MICROBIOLOGY TEACHER): Follow up with Nephrology for recs on Hyperkalemia, off all potassium sparing agents. Their team for recs for resuming Valtessa. Chronic right heart failure 05/13/2019 Snoring 05/13/2019 MIRELLA (obstructive sleep apnea) 05/13/2019 Assessment & Plan (08/26/2020 9:34 AM CDT): Compliant with CPAP. Assessment & Plan (07/24/2020 12:04 PM MICROBIOLOGY TEACHER): Compliant with CPAP. Assessment & Plan (11/09/2019 11:31 AM CDT): CPAP. Resolved Problems Problem Noted Date Diagnosed Date Resolved Date Cerebrovascular accident (CV A) due to occlusion of cerebral artery 11/20/2020 11/21/2020 Immunizations Name Administration Dates Next Due INFLUENZA 02/24/2020 INFLUENZA VACCINE, QUADR. (F LUZONE; FLULAVAL; FLUARIX; AFLURIA QUADRIVALENT; 6MO+), 0.5 ML (IIV4) 05/11/2019 PNEUMOCOCCAL PPSV23 03/31/2020,04/29/2015 Social History Tobacco Use Types Packs/Day Years [...] Comments Blood Pressure 130/81 06/23/2023 7:01 PM MICROBIOLOGY TEACHER Pulse 51 06/23/2023 7:01 PM MICROBIOLOGY TEACHER Temperature 36.7 ??C (98.1 ??F) 06/23/2023 4:28 PM CS T Respiratory Rate 15 06/23/2023 7:01 PM MICROBIOLOGY TEACHER Oxygen Saturation 95% 06/23/2023 7:01 PM MICROBIOLOGY TEACHER Inhaled Oxygen Concentration 30% 11/21/2020 4 :22 AM CDT Weight 122.7 kg (270 lb 9.6 oz) 024 11:51 AM MICROBIOLOGY TEACHER Height 185.4 cm (6' 1 ) 06/23/2023 11:5 1 AM MICROBIOLOGY TEACHER Body Mass Index 35.7 06/23/2023 11:51 AM MICROBIOLOGY TEACHER Functional Status Functional Status Response Date of [...] person have difficulty concentrating/remembering/making decisions? No 06/23/2023 Plan of Treatment Not on file Goals Goal Patient Goal Type Associated Problems [...] COMPREHENSIVE METABOLIC PANEL STAT 06/19/2023 3:57 PM MICROBIOLOGY TEACHER HEPATITIS C AB SCREEN RFLX NAAT QUANT STAT 06/11/2019 10:29 PM MICROBIOLOGY TEACHER HIV-1 HIV-2 ANTIGEN/ANTIBODY STAT 06/11/2019 10:29 PM MICROBIOLOGY TEACHER from Last 3 Months or Most Recently Relevant to Health Maintenance Results * (ABNORMAL) COMPREHENSIVE METABOLIC PANEL (06/19/2023 3:57 PM MICROBIOLOGY TEACHER) BUN 23 7 - 26 mg/dL 06/19/2023 4:57 PM [facility] Creatinine 1.36(H) 0.71 - 1.16 mg/dL 06/19/2023 4:57 PM [facility] Sodium 142 136 - 145 mmol/L 06/19/2023 4:57 PM [facility] Potassium 4.2 3.5 - 4.5 mmol/L 06/19/2023 4:57 PM [facility] Chloride 106 98 - 107 mmol/L 06/19/2023 4:57 PM [facility] CO2 28 22 - 29 mmol/L 06/19/2023 4:57 PM [facility] Glucose 88 70 - 115 mg/dL 06/19/2023 4:57 PM [facility] Calcium 9.2 8.4 - 10.2 mg/dL 06/19/2023 4:57 PM [facility] Protein Total 7.5 6.0 - 8.3 g/dL 06/19/2023 4:57 PM [facility] Albumin 3.4 3.4 - 5.0 g/dL 06/19/2023 4:57 PM [facility] Bilirubin Total 0.5 0.2 - 1.2 mg/dL 06/19/2023 4:57 PM [facility] Alkaline Phosphatase 105 40 - 150 U/L 06/19/2023 4:57 PM [facility] ALT 18 5 - 55 U/L 06/19/2023 4:57 PM [facility] AST 24 5 - 34 U/L 06/19/2023 4:57 PM [facility] Anion Gap 8 6 - 16 06/19/2023 4:57 PM [facility] BUN/Creatinine Ratio 17 7 - 23 06/19/2023 4:57 PM [facility] Osmolality Calculated 297(H) 275 - 295 mOsm/kg 06/19/2023 4:57 PM [facility] Albumin/Globulin Ratio 0.8(L) 1.1 - 2.3 06/19/2023 4:57 PM [facility] eGFR by CKD-EPI 60(L) >=90 mL/min/1.7 3 m2 06/19/2023 4:57 PM [facility] Blood BLOOD SPECIMEN / Unknown Venipuncture / Unknown 06/19/2023 3:57 PM MICROBIOLOGY TEACHER 06/19/2023 4:27 PM [facility] Nena Ro PA-C LAB - CHEMISTRY OR DERABLES [address] [address], [facility] [phone] * HIV-1 HIV-2 ANTIGEN/ANTIBODY (06/11/2019 10:29 PM MICROBIOLOGY TEACHER) HIV Antigen/Antibod y 1 & 2 Non-reacti ve Non-react almaz 06/11/2019 11:16 PM MICROBIOLOGY TEACHER [facility] Comment: Neither HIV-1 p24 Antigen nor HIV-1/HIV-2 Antibodies are detected. ? Blood BLOOD SPECIMEN / Unknown Venipuncture / Unknown 06/11/2019 10:29 PM MICROBIOLOGY TEACHER 06/11/2019 10:32 PM MICROBIOLOGY TEACHER Yonas Lao MD LAB - HEMATOLOGY ORD ERABLES [address] [phone] * HEPATITIS C AB SCREEN RFLX NAAT QUANT (06/11/2019 10:29 PM MICROBIOLOGY TEACHER) Pathologist [facility] Hepatitis C Antibody Non-react almaz Non-reac tive 06/11/2019 11:16 PM MICROBIOLOGY TEACHER [facility] Comment: Hepatitis C Antibody screen indicates no serologic evidence of past or current infection with Hepatitis C Virus. Patients with unexplained liver disease who are immunocompromised or suspected of having acute Hepatitis C infection may benefit from Nucleic Acid Test (EARL) for Hepatitis C Viral RNA to confirm Hepatitis C status. Blood BLOOD SPECIMEN / Unknown Venipuncture / Unknown 06/11/2019 10:29 PM MICROBIOLOGY TEACHER 06/11/2019 10:32 PM MICROBIOLOGY TEACHER Yonas Lao MD LAB - CHEMISTRY [facility] [address] [phone] from Last 3 Months or Most Recently [...] 10:16 PM 11/07/2019 12:27 PM Care Teams Print Shop Stenographer Relationship Specialty Start Date End Date Puneet Hughes MD PCP - General Internal Medicine 06/21/23
--- OUTSIDE RECORDS SUMMARY | 2024-05-22 05:40 | XMS_ITS | Patient Health Summary ---
Author Organization [facility] [employer] Address [address] [place] [address] Care Team Providers Care Event Promoter Name Role Phone Ashley Hughes MD Primary Care Provider [phone] Note from [facility],non-owned Affiliates and Associated Physician Practices is amultiple site organization consisting of ambulatory clinics and hospital sitesin [place], [place], [place] and [place]. This disclosure is being madepursuant to the Care Everywhere program and may not contain all information available regarding this patient. Last updated 18.[facility] Allergies * Aspirin(Unknown) -Medium Criticality Medications * Be aware that medications may not be up to date on this document. Alwaysverify current medications with the patient. * atorvastatin (LIPITOR) 40 MG tablet every 24 hours * Multiple Vitamin (DAILY-RAKESH) TABS Take 1 tablet by mouth once daily * Cyanocobalamin (B-12 PO) * CALCIUM PO * furosemide (LASIX) 40 MG tablet(Started 05/13/2020) Take 0.5 (one-half) tablet by mouth every other day as needed * acetaminophen (TYLENOL) 325 MG tablet(Started 11/07/2019) Take 2 (two) tablets by mouth * allopurinol (ZYLOPRIM) 100 MG tablet(Started 03/03/2021) * gabapentin (NEURONTIN) 600 MG tablet(Started 03/05/2021) * loratadine (Claritin) 10 MG tablet(Started 03/03/2023) Take 1 (one) tablet by mouth once daily as directed. * aspirin (Aspirin) 81 MG chew tablet(Started 06/21/2023) Take 1 (one) tablet by mouth once daily 4 refills by 06/20/2024 * nitroGLYCERIN (Nitrostat) 0.4 MG tablet(Started 06/21/2023) Dissolve 1 (one) tablet under the tongue every 5 minutes as needed for Angina * metoprolol succinate XL 24hr (Toprol XL) 25 MG tablet(Started 06/21/2023) TAKE 1 TABLET BY MOUTH EVERY DAY Active Problems Problem Noted Date Diagnosed Date Chest pain, unspecified type 06/23/2023 Bilateral leg edema 01/16/2021 Lymphedema of both lower extremities 01/16/2021 Acute pain of right knee 11/20/2020 Heart palpitations 07/24/2020 Congestive heart failure 02/01/2020 Morbid obesity 02/01/2020 Pulmonary hypertension 11/07/2019 Orthostasis 11/07/2019 Acute on chronic diastolic heart failure 020 Near syncope 11/03/2019 Chest pain 06/11/2019 Need for influenza vaccination 05/13/2019 Class 3 severe obesity due t o excess calories without serious comorbidity with body mass index (BMI) of 45.0 to 49.9 in adult 05/13/2019 Essential hypertension 05/13/2019 LVH (left ventricular hypert rophy) due to hypertensive disease, with heart failure 05/13/2019 Mixed hyperlipidemia 05/13/2019 Pedal edema 05/13/2019 CRD (chronic renal disease), stage II 05/13/2019 Chronic right heart failure 05/13/2019 Snoring 05/13/2019 MIRELLA (obstructive sleep apnea) 05/13/2019 Resolved Problems Problem Noted Date Diagnosed Date Resolved Date Cerebrovascular accident (CV A) due to occlusion of cerebral artery 11/20/2020 11/21/2020 Immunizations * INFLUENZA(Given 02/24/2020) * INFLUENZA VACCINE, QUADR. (FLUZONE; FLULAVAL; FLUARIX; AFLURIA QUADRIVALENT; 6MO+), 0.5 ML (IIV4)(Given 05/11/2019) * PNEUMOCOCCAL PPSV23(Given 03/31/2020, 04/29/2015) Social History Tobacco Use Types Packs/Day Years [...] Comments Blood Pressure 130/81 06/23/2023 7:01 PM CLERICAL PROOFREADER Pulse 51 06/23/2023 7:01 PM CLERICAL PROOFREADER Temperature 36.7 ??C (98.1 ??F) 06/23/2023 4:28 PM CS T Respiratory Rate 15 06/23/2023 7:01 PM CLERICAL PROOFREADER Oxygen Saturation 95% 06/23/2023 7:01 PM CLERICAL PROOFREADER Inhaled Oxygen Concentration 30% 11/21/2020 4 :22 AM CDT Weight 122.7 kg (270 lb 9.6 oz) 024 11:51 AM CLERICAL PROOFREADER Height 185.4 cm (6' 1 ) 06/23/2023 11:5 1 AM CLERICAL PROOFREADER Body Mass Index 35.7 06/23/2023 11:51 AM CLERICAL PROOFREADER Procedures * CORONARY ANGIOGRAPHY(Performed 06/23/2023) Performed for Chest pain, unspecified type * CCL LEFT HEART CATH(Performed 06/23/2023) Performed for Chest pain, unspecified type * EKG 12-LEAD(Performed 06/23/2023) Performed for Chest pain, unspecified type * ECHO COMPLETE(Performed 06/23/2023) Performed for Chest pain, unspecified type * CARDIAC EKG ORDER(Performed 06/21/2023) * EKG 12-LEAD(Performed 06/21/2023) Performed for Palpitations * EKG 12-LEAD(Performed 06/19/2023) Performed for Chest pain, unspecified type * TROPONIN-I HIGH SENSITIVE REFLEX 1HOUR(Performed 06/19/2023) * XR CHEST 1VW PORTABLE(Performed 06/19/2023) Performed for Chest pain, unspecified type * TROPONIN-I HIGH SENSITIVE BASELINE + 1HR(Performed 06/19/2023) * B-TYPE NATRIURETIC PEPTIDE(Performed 06/19/2023) * COMPREHENSIVE METABOLIC PANEL(Performed 06/19/2023) * CBC W AUTO DIFFERENTIAL(Performed 06/19/2023) * SARS-COV-2 (COVID-19)+INFLU A+B PCR RAPID(Performed 06/19/2023) * PROC EKG IN CLINIC(Performed 03/18/2022) Performed for Palpitations * CARDIAC HOLTER MONITOR ORDER(Performed 03/18/2022) * TX DESTRUCT BENIGN LESION, 1-14(Performed 05/06/2021) Performed for Seborrheic keratosis, inflamed * URINALYSIS MICROSCOPIC ONLY REFLEXED(Performed 04/20/2021) Performed for Stage 3a chronic kidney disease (HCC) * OSMOLALITY URINE(Performed 04/20/2021) Performed for Stage 3a chronic kidney disease (HCC) * SODIUM URINE RANDOM(Performed 04/20/2021) Performed for Stage 3a chronic kidney disease (HCC) * CHLORIDE URINE RANDOM(Performed 04/20/2021) Performed for Stage 3a chronic kidney disease (HCC) * POTASSIUM URINE RANDOM(Performed 04/20/2021) Performed for Stage 3a chronic kidney disease (HCC) * PROTEIN CREATININE RATIO URINE RANDOM PNL(Performed 04/20/2021) Performed for Stage 3a chronic kidney disease (HCC) * URINALYSIS W/MICROSCOPIC NO CULTURE(Performed 04/20/2021) Performed for Stage 3a chronic kidney disease (HCC) * CBC W AUTO DIFFERENTIAL(Performed 04/20/2021) Performed for Stage 3a chronic kidney disease (HCC) * RENAL FUNCTION PANEL(Performed 04/20/2021) Performed for Stage 3a chronic kidney disease (HCC) * HEMOGLOBIN A1C(Performed 04/20/2021) Performed for Morbid obesity (HCC) * RENAL FUNCTION PANEL(Performed 04/01/2021) Performed for Hyperkalemia, CRD (chronic renal disease), stage II * MRI LUMBAR SPINE WO CONTRAST(Performed 03/12/2021) Performed for Lumbar radiculopathy * BASIC METABOLIC PANEL (CALCIUM TOTAL)(Performed 02/17/2021) Performed for Hyperkalemia * XR TIBIA FIBULA RIGHT 2VW(Performed 12/22/2020) Performed for Closed fracture of proximal end of right fibula, unspecified fracture morphology, initial encounter * CARDIAC EKG ORDER(Performed 11/25/2020) * GLUCOSE - POINT OF CARE(Performed 11/21/2020) * GLUCOSE - POINT OF CARE(Performed 11/21/2020) * TSH(Performed 11/21/2020) * CBC W/O DIFFERENTIAL(Performed 11/21/2020) * BASIC METABOLIC PANEL (CALCIUM TOTAL)(Performed 11/21/2020) * GLUCOSE - POINT OF CARE(Performed 11/20/2020) * ECHO COMPLETE W BUBBLE STUDY(Performed 11/20/2020) Performed for Expressive aphasia * LIPID PROFILE(Performed 11/20/2020) * TROPONIN I(Performed 11/20/2020) * TROPONIN I(Performed 11/20/2020) * XR STRESS ANY JOINT(Performed 11/20/2020) Performed for Closed fracture of proximal end of right fibula, unspecified fracture morphology, initial encounter * XR ANKLE RIGHT 3VW OR MORE(Performed 11/20/2020) Performed for Closed fracture of proximal end of right fibula, unspecified fracture morphology, initial encounter * MRI BRAIN WO CONTRAST(Performed 11/20/2020) Performed for Expressive aphasia * SARS-COV-2 (COVID-19)+INFLU A+B PCR RAPID(Performed 11/20/2020) * BLOOD TYPE VERIFICATION(Performed 11/20/2020) * TROPONIN I(Performed 11/20/2020) * B-TYPE NATRIURETIC PEPTIDE(Performed 11/20/2020) * TROPONIN I(Performed 11/20/2020) * ALCOHOL ETHYL BLOOD(Performed 11/20/2020) * BLOOD GASES CRISTY + COOX PANEL(Performed 11/20/2020) * URINE DRUG SCREEN IMMUNOASSAY(Performed 11/20/2020) * URINALYSIS W/MICROSCOPIC REFLEX TO CULTURE(Performed 11/20/2020) * CT CERVICAL SPINE WO CONTRAST(Performed 11/20/2020) Performed for Expressive aphasia * XR TIBIA FIBULA RIGHT 2VW(Performed 11/20/2020) Performed for Acute pain of right knee * XR KNEE RIGHT 3VW(Performed 11/20/2020) Performed for Expressive aphasia * XR PELVIS W RIGHT HIP 2VW(Performed 11/20/2020) Performed for Expressive aphasia * XR CHEST 1VW PORTABLE(Performed 11/20/2020) Performed for Expressive aphasia * TYPE + SCREEN PANEL(Performed 11/20/2020) * HEMOGLOBIN A1C(Performed 11/20/2020) * TROPONIN I(Performed 11/20/2020) * PT-INR [facility](Performed 11/20/2020) * COMPREHENSIVE METABOLIC PANEL(Performed 11/20/2020) * CBC W AUTO DIFFERENTIAL(Performed 11/20/2020) * EKG 12-LEAD(Performed 11/20/2020) Performed for Expressive aphasia * CT ANGIO BRAIN NECK STROKE(Performed 11/20/2020) Performed for Expressive aphasia * CREATININE - POCT INTERFACED(Performed 11/20/2020) * CT BRAIN STROKE(Performed 11/20/2020) Performed for Expressive aphasia * RENAL FUNCTION PANEL(Performed 09/22/2020) Performed for Essential hypertension, Stage 3 chronic kidney disease, unspecified whether stage 3a or 3b CKD (HCC) * PROC TAX LAWYER READ, 14 DAY(Performed 08/19/2020) Performed for Palpitations * PROTEIN CREATININE RATIO URINE RANDOM PNL(Performed 08/18/2020) Performed for CKD (chronic kidney disease) stage 2, GFR 60-89 ml/min * BASIC METABOLIC PANEL (CALCIUM TOTAL)(Performed 08/18/2020) Performed for LVH (left ventricular hypertrophy) * URINALYSIS MICROSCOPIC ONLY REFLEXED(Performed 08/18/2020) Performed for Essential hypertension, CRD (chronic renal disease), stage II * PROTEIN CREATININE RATIO URINE RANDOM PNL(Performed 08/18/2020) Performed for Essential hypertension, CRD (chronic renal disease), stage II * URINALYSIS W/MICROSCOPIC NO CULTURE(Performed 08/18/2020) Performed for Essential hypertension, CRD (chronic renal disease), stage II * CBC W AUTO DIFFERENTIAL(Performed 08/18/2020) Performed for Essential hypertension, CRD (chronic renal disease), stage II * RENAL FUNCTION PANEL(Performed 08/18/2020) Performed for Essential hypertension, CRD (chronic renal disease), stage II * CARDIAC EKG ORDER(Performed 07/28/2020) * PROC EKG IN CLINIC(Performed 07/24/2020) Performed for Palpitations * CARDIAC HOLTER MONITOR ORDER(Performed 07/24/2020) * PFT OXYGEN DESATURATION STUDY(Performed 04/30/2020) Performed for Dyspnea on exertion * SIX MINUTE WALK(Performed 04/30/2020) Performed for Dyspnea on exertion * COMPLETE PFT W/WO BRONCHODILATOR(Performed 04/30/2020) Performed for Dyspnea on exertion, Pulmonary hypertension (HCC) * COMPLEMENT C3 C4 PANEL(Performed 04/22/2020) Performed for CKD (chronic kidney disease) stage 2, GFR 60-89 ml/min * LAB RESULTS ORDER(Performed 02/20/2020) * BASIC METABOLIC PANEL (CALCIUM TOTAL)(Performed 02/19/2020) * BASIC METABOLIC PANEL (CALCIUM TOTAL)(Performed 02/19/2020) Performed for Heart failure with preserved ejection fraction, unspecified HF chronicity (HCC) * BASIC METABOLIC PANEL (CALCIUM TOTAL)(Performed 02/13/2020) Performed for Heart failure with preserved ejection fraction, unspecified HF chronicity (HCC) * BASIC METABOLIC PANEL (CALCIUM TOTAL)(Performed 02/04/2020) Performed for Congestive heart failure, unspecified HF chronicity, unspecified heart failure type (HCC) * CBC W AUTO DIFFERENTIAL(Performed 02/04/2020) Performed for Congestive heart failure, unspecified HF chronicity, unspecified heart failure type (HCC) * XR CHEST 1VW(Performed 02/04/2020) Performed for Pleural effusion * BASIC METABOLIC PANEL (CALCIUM TOTAL)(Performed 02/03/2020) Performed for Congestive heart failure, unspecified HF chronicity, unspecified heart failure type (HCC) * CBC W AUTO DIFFERENTIAL(Performed 02/03/2020) Performed for Congestive heart failure, unspecified HF chronicity, unspecified heart failure type (HCC) * CARDIAC EKG ORDER(Performed 02/02/2020) * CREATININE URINE RANDOM(Performed 02/02/2020) * PROTEIN URINE RANDOM QUANTITATIVE(Performed 02/02/2020) * BASIC METABOLIC PANEL (CALCIUM TOTAL)(Performed 02/02/2020) Performed for Congestive heart failure, unspecified HF chronicity, unspecified heart failure type (HCC) * CBC W AUTO DIFFERENTIAL(Performed 02/02/2020) Performed for Congestive heart failure, unspecified HF chronicity, unspecified heart failure type (HCC) * SARS-COV-2 (COVID-19) IN HOUSE(Performed 02/02/2020) * XR CHEST 1VW PORTABLE(Performed 02/01/2020) Performed for Congestive heart failure, unspecified HF chronicity, unspecified heart failure type (HCC) * EKG 12-LEAD(Performed 02/01/2020) Performed for Congestive heart failure, unspecified HF chronicity, unspecified heart failure type (HCC) * B-TYPE NATRIURETIC PEPTIDE(Performed 02/01/2020) * TROPONIN I(Performed 02/01/2020) * COMPREHENSIVE METABOLIC PANEL(Performed 02/01/2020) * CBC W AUTO DIFFERENTIAL(Performed 02/01/2020) * CARDIAC HOLTER MONITOR ORDER(Performed 01/11/2020) * CARDIAC PROCEDURE ORDER(Performed 01/07/2020) * US RETROPERITONEAL COMPLETE(Performed 01/03/2020) Performed for Chronic kidney disease (CKD), stage III (moderate) (HCC), ERIC (acute kidney injury) (HCC) * CARDIAC EKG ORDER(Performed 12/31/2019) * PFT(Performed 12/27/2019) * CREATININE URINE RANDOM(Performed 12/26/2019) Performed for Chronic kidney disease (CKD), stage III (moderate) (HCC), ERIC (acute kidney injury) (HCC) * PROTEIN URINE RANDOM QUANTITATIVE(Performed 12/26/2019) Performed for Chronic kidney disease (CKD), stage III (moderate) (HCC), ERIC (acute kidney injury) (HCC) * URINALYSIS REFLEX TO MICROSCOPIC NO CULTURE(Performed 12/26/2019) Performed for Chronic kidney disease (CKD), stage III (moderate) (HCC), ERIC (acute kidney injury) (HCC) * RENAL FUNCTION PANEL(Performed 12/26/2019) Performed for Chronic kidney disease (CKD), stage III (moderate) (HCC), ERIC (acute kidney injury) (HCC) * CCL CATH RIGHT HEART(Performed 12/20/2019) Performed for Chest pain, unspecified type * BASIC METABOLIC PANEL (CALCIUM TOTAL)(Performed 12/20/2019) Performed for Chest pain, unspecified type * PT-INR [facility](Performed 12/14/2019) Performed for Chest pain, unspecified type * BASIC METABOLIC PANEL (CALCIUM TOTAL)(Performed 12/14/2019) Performed for Chest pain, unspecified type * CBC W/O DIFFERENTIAL(Performed 12/14/2019) Performed for Chest pain, unspecified type * CARDIAC PROCEDURE ORDER(Performed 11/28/2019) * CARDIAC PROCEDURE ORDER(Performed 11/08/2019) * CARDIAC EKG ORDER(Performed 11/08/2019) * CARDIAC PROCEDURE ORDER(Performed 11/08/2019) * BASIC METABOLIC PANEL (CALCIUM TOTAL)(Performed 11/07/2019) * CBC W/O DIFFERENTIAL(Performed 11/07/2019) * MAGNESIUM BLOOD(Performed 11/06/2019) Performed for Near syncope * RENAL FUNCTION PANEL(Performed 11/06/2019) Performed for Near syncope * CBC W/O DIFFERENTIAL(Performed 11/06/2019) Performed for Near syncope * CT HEAD WO CONTRAST(Performed 11/05/2019) Performed for Near syncope * CT ANGIO CHEST PULM EMBOLISM(Performed 11/05/2019) Performed for Near syncope * TYPE + SCREEN PANEL(Performed 11/05/2019) Performed for Gross hematuria * PT-INR [facility](Performed 11/05/2019) Performed for Gross hematuria * BASIC METABOLIC PANEL (CALCIUM TOTAL)(Performed 11/05/2019) Performed for Gross hematuria * CBC W/O DIFFERENTIAL(Performed 11/05/2019) Performed for Gross hematuria * PT EVAL AND TREAT(Performed 11/04/2019) * OT EVAL AND TREAT(Performed 11/04/2019) * URINALYSIS REFLEX TO MICROSCOPIC NO CULTURE(Performed 11/04/2019) Performed for Gross hematuria * URINALYSIS REFLEX TO MICROSCOPIC NO CULTURE(Performed 11/04/2019) Performed for Dysuria * CULTURE URINE(Performed 11/04/2019) Performed for Dysuria * SARS-COV-2 (COVID-19) IN HOUSE(Performed 11/03/2019) Performed for Near syncope * CULTURE BLOOD(Performed 11/03/2019) Performed for Near syncope * TSH(Performed 11/03/2019) Performed for Near syncope * CK BLOOD(Performed 11/03/2019) Performed for Near syncope * B-TYPE NATRIURETIC PEPTIDE(Performed 11/03/2019) Performed for Near syncope * PT-INR SL[facility](Performed 11/03/2019) Performed for Near syncope * TROPONIN I(Performed 11/03/2019) Performed for Near syncope * LACTIC ACID BLOOD(Performed 11/03/2019) Performed for Near syncope * PHOSPHORUS BLOOD(Performed 11/03/2019) Performed for Near syncope * MAGNESIUM BLOOD(Performed 11/03/2019) Performed for Near syncope * COMPREHENSIVE METABOLIC PANEL(Performed 11/03/2019) Performed for Near syncope * CBC W AUTO DIFFERENTIAL(Performed 11/03/2019) Performed for Near syncope * CULTURE BLOOD(Performed 11/03/2019) Performed for Near syncope * OXYGEN WITH TITRATION PROTOCOL (ADULT)(Performed 11/03/2019) * EKG 12-LEAD(Performed 11/03/2019) Performed for Near syncope * BASIC METABOLIC PANEL (CALCIUM TOTAL)(Performed 10/30/2019) Performed for Chronic heart failure with preserved ejection fraction (HCC) * RENAL FUNCTION PANEL(Performed 10/30/2019) Performed for CRD (chronic renal disease), stage II * ALDOSTERONE BLOOD(Performed 10/30/2019) Performed for Essential hypertension, CRD (chronic renal disease), stage II * BASIC METABOLIC PANEL (CALCIUM TOTAL)(Performed 07/24/2019) Performed for Chronic kidney disease (CKD), stage II (mild), Hyperkalemia * LIPID PROFILE(Performed 07/24/2019) Performed for Chronic heart failure with preserved ejection fraction (HCC) * SODIUM URINE RANDOM(Performed 07/24/2019) Performed for Chronic kidney disease (CKD), stage II (mild), Hyperkalemia * CARDIAC EKG ORDER(Performed 07/11/2019) * CARDIAC EKG ORDER(Performed 07/11/2019) * HEMOGLOBIN A1C(Performed 07/05/2019) Performed for Establishing care with new doctor, encounter for * BASIC METABOLIC PANEL (CALCIUM TOTAL)(Performed 07/05/2019) Performed for Hyperpotassemia, Kidney dysfunction * CARDIAC EKG ORDER(Performed 07/02/2019) * CARDIAC EKG ORDER(Performed 06/20/2019) * CARDIAC PROCEDURE ORDER(Performed 06/16/2019) * RENAL FUNCTION PANEL(Performed 06/13/2019) * CBC W/O DIFFERENTIAL(Performed 06/13/2019) * BASIC METABOLIC PANEL (CALCIUM TOTAL)(Performed 06/12/2019) * LIPID PROFILE(Performed 06/12/2019) * PROCALCITONIN LEVEL(Performed 06/12/2019) * XR ABDOMEN KUB(Performed 06/11/2019) Performed for Chest pain, unspecified type * LIPASE BLOOD(Performed 06/11/2019) * COMPREHENSIVE METABOLIC PANEL(Performed 06/11/2019) * CBC W AUTO DIFFERENTIAL(Performed 06/11/2019) * HIV-1 HIV-2 ANTIGEN/ANTIBODY(Performed 06/11/2019) * HEPATITIS C AB SCREEN RFLX NAAT QUANT(Performed 06/11/2019) * CARDIAC EKG ORDER(Performed 06/11/2019) * NM MYOCARD PERF STRESS ONLY(Performed 06/11/2019) Performed for Chest pain, unspecified type * ECHO COMPLETE(Performed 06/11/2019) Performed for Hypoxia * TROPONIN I(Performed 06/11/2019) * BLOOD GASES CRISTY(Performed 06/11/2019) * B-TYPE NATRIURETIC PEPTIDE(Performed 06/11/2019) * CT ANGIO CHEST PULM EMBOLISM(Performed 06/11/2019) Performed for Chest pain, unspecified type * D-DIMER(Performed 06/11/2019) * TROPONIN I(Performed 06/11/2019) * EKG 12-LEAD(Performed 06/11/2019) Performed for Chest pain, unspecified type * XR CHEST 2VW(Performed 06/10/2019) Performed for Chest pain, unspecified type * DIFFERENTIAL MANUAL(Performed 06/10/2019) * COMPREHENSIVE METABOLIC PANEL(Performed 06/10/2019) * CBC W AUTO DIFFERENTIAL(Performed 06/10/2019) * TROPONIN I(Performed 06/10/2019) * EKG 12-LEAD(Performed 06/10/2019) Performed for Chest pain, unspecified type * CARDIAC EKG ORDER(Performed 05/28/2019) * PROC EKG IN CLINIC(Performed 05/11/2019) Performed for Establishing care with new doctor, encounter for * CHLORIDE URINE RANDOM(Performed 04/18/2019) Performed for Kidney dysfunction, Hyperpotassemia * POTASSIUM URINE RANDOM(Performed 04/18/2019) Performed for Hyperpotassemia, Kidney dysfunction * RENAL FUNCTION PANEL(Performed 04/18/2019) Performed for Kidney dysfunction * CBC W AUTO DIFFERENTIAL(Performed 04/18/2019) Performed for Kidney dysfunction Results * CCL LEFT HEART CATH, CORONARY ANGIOGRAPHY (06/23/2023 4:07 PM CLERICAL PROOFREADER) Anatomical Region Laterality Modality X-Ray Angiograph y Narrative 06/27/2023 9:58 AM CLERICAL PROOFREADER ?The coronary vessels are normal. ?LVEDP: 25 mmHg. ?Right radial artery access. Reason for Procedure 57 year old male with past medical history HFpEF, HTN, Morbid obesity status post gastric sleeve surgery 07/2020, HLD, MIRELLA presents for [facility]. Has been experiencing pressure-like chest pain over past week- worse with stress and physical activity and alleviated by rest. Procedure Details Estimated Blood Loss: 5 mL Coronary Findings Diagnostic Dominance: Right Left Main: The vessel is large in size and is angiographically normal. Left Anterior Descending: The vessel is large in size. First Diagonal Branch: The vessel is moderate in size and is angiographically normal. Second Diagonal Branch: The vessel is moderate in size and is angiographically normal. Third Diagonal Branch: The vessel is small in size. Left Circumflex: The vessel is large in size and is angiographically normal. First Obtuse Marginal Branch: The vessel is large in size and is angiographically normal. Second Obtuse Marginal Branch: The vessel is moderate in size and is angiographically normal. Right Coronary Artery: The vessel is large in size and is angiographically normal. Intervention No interventions have been documented. Left Ventricle LVEDP: 25 mmHg. Common Conclusions The coronary vessels are normal. Recommendations - Resume previous medications. - Plan for lifestyle intervention with diet, exercise, and weight loss. Kaylynn Pillai MD CV CARDIAC CATH CUPI D PROCS * EKG 12-LEAD (06/23/2023 12:25 PM CLERICAL PROOFREADER) Only the most recent of8 resultswithin the time period is included. Ventricular Rate 51 BPM [facility] MUSE Atrial Rate 51 BPM SL MUSE P-R Interval 162 ms [facility]USE QRS Duration ms 116 ms [facility] MUSE Q-T Interval ms 466 ms SL MUSE QTC Calculation (Bezet) 429 ms [facility] MUSE Calculated P [place] 21 degrees [facility] MUSE Calculated R [place] 45 degrees [facility] MUSE Calculated T [place] 32 degrees [facility] MUSE Interpretation EKG SINUS BRADYCARDIA POSSIBLE LEFT ATRIAL ENLARGEMENT BORDERLINE ECG WHEN COMPARED WITH ECG OF 21-JUN-2023 14:14, SINUS BRADYCARDIA HAS REPLACED NORMAL SINUS RHYTHM Confirmed by MD RITESH, KIMBERLY ([id number]) on 06/24/2023 1:43:17 PM [facility] 06/23/2023 12:2 5 PM CLERICAL PROOFREADER 06/24/2023 1:43 PM CLERICAL PROOFREADER Christie ROGERS ECG ORDERABLES [facility] * ECHO COMPLETE (06/23/2023 10:27 AM CLERICAL PROOFREADER) BSA 2.8859250 m2 [facility] CV FUJ I PACS LV biplane EF 60 52 - 72 % [facility] CV FUJI PACS LV A2C EF 59 48 - 76 % [facility] CV FUJ I PACS LV A4C EF 63 46 - 74 % [facility] CV FUJ I PACS LV stroke vol BP 99.3 mL [facility] CV FUJI PACS LV stroke vol BP index 38.8 mL/m2 [facility] CV FUJI PACS LVOT stroke vol 105.58 mL [facility] CV FUJI PACS LVOT stroke vol index 41.28 mL/m2 [facility] CV FUJI PACS LV stroke vol 2D teich 65.127 ml [facility] CV FUJI PACS LV Stroke Index 2D Teich 25.46 mL/m2 [facility] CV FUJI PACS LV stroke vol index A4C MOD 118.033 ml/m2 [facility] CV FUJI PACS LVIDd 4.75 4.2 - 5.8 cm [facility] CV FUJI PACS LVIDs 3.17 2.5 - 4.0 cm [facility] CV FUJI PACS IVSd 2D 1.454 0.6 - 1 cm [facility] CV FUJI PACS LVPWd 1.49 0.6 - 1 cm [facility] CV FUJI PACS Fractional Shortening 2D 33 28 - 44 % [facility] CV FUJI PACS LV ESV BP 64.96 21 - 61 mL [facility] CV FUJI PACS LV ESV index BP 25.4 11 - 31 mL/m2 [facility] CV FUJI PACS LV ESV A2C 69.455 15 - 75 mL [facility]SM CV FUJI PACS LV ESV index A2C 27.15 9 - 37 mL/m2 [facility] CV FUJI PACS LV EDV BP 164.213 62 - 150 mL SSM CV FUJI PACS LV ESV A4C 59.297 22 - 78 mL SSM CV FUJI PACS LV ESV index A4C 23.18 12 - 40 mL/m2 [facility]SM CV FUJI PACS LV EDV index BP 64.2 34 - 74 mL/m2 [facility]SM CV FUJI PACS LV EDV A2C 143.319 59 - 175 mL SSM CV FUJI PACS LV EDV index A2C 56.03 31 - 87 mL/m2 SSM CV FUJI PACS LV EDV A4C 187.488 mL SSM CV FU JI PACS LV ESV 2D 40.005 21 - 61 mL SSM CV FUJI PACS LV EDV index A4C 73.30 37 - 93 mL/m2 SSM CV FUJI PACS LV ESV index 2D 15.64 11 - 31 mL/m2 SSM CV FUJI PACS LV EDV 2D 105.131 62 - 150 mL SSM CV FUJI PACS LV EDV index 2D 41.10 34 - 74 mL/m2 SSM CV FUJI PACS LVOT diam 2.3 cm SSM CV FUJ I PACS LVOT area 4.04 cm2 SSM CV FUJ I PACS LV RWT 0.626 SSM CV FUJ I PACS LV Ponce A2C 9.697 cm SSM CV F UJI PACS LV [place] A4C 9.755 cm SSM CV F UJI PACS IVS/LVPW 0.977 SSM CV FUJ I PACS LV mass 2D 241.06025 [id number] 96 - 200 g SSM CV FUJI PACS LV mass index 2D 94.49 50 - 102 g/m2 SSM CV FUJI PACS MV E pk bony 78.512 cm/s SSM CV F UJI PACS MV avg E/e' ratio 11.22 SS M CV FUJI PACS MV A pk bony 76.755 cm/s SSM CV F UJI PACS MV E A ratio 1.02 SSM CV FUJI PACS MV E' lateral bony 9.77 cm/s SS M CV FUJI PACS MV DT 244 ms SSM CV FUJ I PACS MV E' septal bony 5.452 cm/s SSM CV FUJI PACS MV A duration 156 ms SSM CV FUJI PACS MV E/e' septal 14.402 SSM C V FUJI PACS MV E/e' lateral 8.036 SSM CV FUJI PACS LA vol BP 93.84 mL SSM CV [facility] I PACS TR pk bony 251.1 cm/s SSM CV [facility] I PACS P vein A bony 24.0 cm/s SSM CV FUJI PACS P vein A duration 152 msec SS M CV FUJI PACS P vein S/D ratio 0.89 SSM CV FUJI PACS LVOT pk bony 1.11 m/s SSM CV F UJI PACS LVOT mn bony 0.71 m/s SSM CV F UJI PACS LVOT mn grad 2.3 mmHg SSM CV FUJI PACS LVOT Cardiac Output 5.09 l/min SSM CV FUJI PACS LVOT Cardiac Index 1.99 l/min/m2 SSM CV FUJI PACS LA vol index 36.7 16 - 34 mL/m2 SSM CV FUJI PACS LA size 4.376 3.0 - 4.0 cm SSM CV FUJI PACS LA vol BP A-L 102.162 mL SSM CV FUJI PACS RVIDd 4.2 cm SSM CV FUJ I PACS TV S' bony 16.584 cm/s SSM CV FUJ I PACS TAPSE 2.656 1.7 cm SSM CV FUJ I PACS AV mn grad 5 mmHg SSM CV FU JI PACS AV pk grad 8 mmHg SSM CV FU JI PACS AV mn bony 1.08 m/s SSM CV FUJ I PACS AV pk bony 1.43 m/s SSM CV FUJ I PACS AV VTI 35.614 cm SSM CV FUJ I PACS LVOT pk grad 4.889 mmHg SSM CV FUJI PACS LVOT VTI 26.109 cm SSM CV FUJ I PACS AV area cont VTI 3.0 cm2 SSM CV FUJI PACS AV area pk bony 3.1 cm2 SSM C V FUJI PACS AV Doppler bony index pk bony 0.772 SSM CV FUJI PACS Dimensionless Index 0.733 SSM CV FUJI PACS MV mn grad 1 mmHg SSM CV FU JI PACS MV pk grad 5 mmHg SSM CV FU JI PACS MV mn bony 0.48 m/s SSM CV FUJ I PACS MV pk bony 107.525 cm/s SSM CV FUJ I PACS MV area cont eq 2.59 cm2 SSM CV FUJI PACS MV VTI 40.782 cm SSM CV FUJ I PACS MV decel slope 321.566 cm/s2 SSM C V FUJI PACS TR VTI 92.7 cm SSM CV FUJ I PACS TR pk grad 25 mmHg SSM CV FU JI PACS TX pk bony 94.839 cm/s SSM CV FUJ I PACS TX pk grad 3 mmHg SSM CV FU JI PACS PV mn grad 2 mmHg SSM CV FU JI PACS PV pk bony 100.898 cm/s SSM CV FUJ I PACS PV pk grad 3 mmHg SSM CV FU JI PACS PV VTI 27.903 cm SSM CV FUJ I PACS PV mn bony 63.55 cm/s SSM CV FUJ I PACS Ascending aorta 3.88 cm SSM CV FUJI PACS IVC size 2.4 cm SSM CV FUJ I PACS LA ESV A4C MOD Index 30 ml/m2 SSM CV FUJI PACS LA ESV A2C MOD Index 43 ml/m2 SSM CV FUJI PACS [id number] 8.639 cm SSM CV FUJ I PACS [id number] 8.318 cm SSM CV FUJ I PACS Prox Asc Ao Diameter Index 1.516 cm SSM CV FUJI PACS LVIDs index 1.24 1.3 - 2.1 cm/m2 SSM CV FUJI PACS LV LVIDd index 1.86 2.2 - 3.0 cm/m2 SSM CV FUJI PACS Sinus of Valsalva 3.70 cm SS M CV FUJI PACS ST junction 3.0 cm SSM CV F UJI PACS Sinus of valsalva index 1.45 cm/m2 SSM CV FUJI PACS ST junction index 1.17 cm/m2 SS M CV FUJI PACS Anatomical Region Laterality Modality Ultrasound Narrative 06/23/2023 11:40 AM CLERICAL PROOFREADER ?Concentric LV hypertrophy. Normal systolic function. EF by 2D Handy biplane is 60%. Normal wall motion. Grade II diastolic dysfunction with elevated left atrial pressure. ?Right ventricle is mildly dilated. Normal systolic function. ?No significant valvular abnormalities. ?PASP est 30 mmHg. ?Biatrial enlargement. ?Dilated IVC with respiratory collapse. ?Normal visualized portion of aorta. Left Ventricle Left ventricle size is normal. Mildly increased wall thickness. Findings consistent with concentric hypertrophy. Normal systolic function. EF by 2D Handy biplane is 60%. Normal wall motion. Grade II diastolic dysfunction with elevated left atrial pressure. Right Ventricle Right ventricle is mildly dilated. Normal systolic function. Left Atrium Left atrium is mildly dilated. Left atrium volume index is 36.7 mL/m2. Right Atrium Right atrium is moderately dilated. IVC/SVC IVC diameter is greater than 21 mm and decreases greater than 50% during inspiration; therefore the estimated right atrial pressure is intermediate (~8 mmHg). Mitral Valve Valve structure is normal. No restricted motion. Trace regurgitation. No stenosis. Tricuspid Valve Valve structure is normal. No restricted motion. Trace regurgitation. No stenosis. Aortic Valve Valve structure is trileaflet. No restricted motion. No regurgitation. No stenosis. Pulmonic Valve Valve structure is normal. No restricted motion. No regurgitation. No stenosis. Ascending Aorta Normal sized sinus of Valsalva (aortic root) and ascending aorta. Pericardium No pericardial effusion. Study Details Study quality was adequate. A complete 2D, color Doppler, spectral Doppler and M-mode echocardiogram was performed. The apical, parasternal, subcostal and suprasternal views were obtained. Patient exhibited sinus rhythm. Technical difficulties due to patient's body habitus. Kaylynn Pillai MD ECHO CUPID * CARDIAC EKG ORDER (06/21/2023 3:13 PM CLERICAL PROOFREADER) Only the most recent of12 resultswithin the time period is included. Narrative 06/21/2023 3:13 PM CLERICAL PROOFREADER Ordered by an unspecified provider. Scanned Document CARDIAC SERVICES ORD ERABLES * TROPONIN-I HIGH SENSITIVE REFLEX 1HOUR (06/19/2023 5:58 PM CLERICAL PROOFREADER) Troponin I High Sensitive 9 <=35 ng/L 06/19/2023 6:39 PM CLERICAL PROOFREADER [facility] Delta Troponin I HS 06/19/2023 6:39 PM CLERICAL PROOFREADER [facility] Comment:Delta value intentio william not calculated. Baseline to 1 hour specimen collection interval exceeded. Blood BLOOD SPECIMEN / Unknown Venipuncture / Unknown 06/19/2023 5:58 PM CLERICAL PROOFREADER 06/19/2023 6:08 PM CLERICAL PROOFREADER Nena Ro PA-C LAB - CHEMISTRY OR DERABLES [facility] [address] [place] [address], [facility] [place] [phone] * XR CHEST 1VW PORTABLE (06/19/2023 4:13 PM CLERICAL PROOFREADER) Only the most recent of3 resultswithin the time period is included. Anatomical Region Laterality Modality Chest Radiographic Maribel ging 06/19/2023 7:40 PM CLERICAL PROOFREADER Impressions 06/20/2023 12:03 AM CLERICAL PROOFREADER IMPRESSION: No acute pulmonary process. Report dictated by Evan Harrison MD, PhD (sr vice president). I, Brandin Mendez MD have personally reviewed and interpreted this examination/study. > Interpreting Provider: Brandin Mendez MD on 06/20/2023 12:03 AM Narrative 06/20/2023 12:03 AM CLERICAL PROOFREADER PROCEDURE: ??XR CHEST 1VW PORTABLE, DATE/TIME OF EXAM: ??06/19/2023 4:13 PM, LOCATION ??[facility] INDICATION: R07.9: Chest pain, unspecified type ADDITIONAL CLINICAL INFORMATION: Ordering Provider Reason For Exam: ??r/o acute process Technologist Note: Additional: COMPARISON: None. FINDINGS: There is no focal consolidation, pleural effusion, or pneumothorax. The mediastinal and cardiac contours are normal. No acute osseous abnormality is seen. Procedure Note Brandin Mendez MD - 06/20/2023 PROCEDURE: XR CHEST 1VW PORTABLE, DATE/TIME OF EXAM: 06/19/2023 4:13PM, LOCATION [facility] INDICATION: R07.9: Chest pain, unspecified type ADDITIONAL CLINICAL INFORMATION: Ordering Provider Reason For Exam: r/o acute process Technologist Note: Additional: COMPARISON: None. FINDINGS: There is no focal consolidation, pleural effusion, or pneumothorax. The mediastinal and cardiac contours are normal. No acute osseousabnormality is seen. IMPRESSION: No acute pulmonary process. Report dictated by Evan Harrison MD, PhD (sr vice president). I, Brandin Mendez MD have personally reviewed and interpreted this examination/study. > Interpreting Provider: Brandin Mendez MD on 06/20/2023 12:03 AM Nena Ro PA-C DIAGNOSTIC IMAGING ORDERABLES * TROPONIN-I HIGH SENSITIVE BASELINE + 1HR (06/19/2023 3:57 PM CLERICAL PROOFREADER) Troponin I High Sensitive 8 <=35 ng/L 06/19/2023 5:01 PM CLERICAL PROOFREADER [facility] Blood BLOOD SPECIMEN / Unknown Venipuncture / Unknown 06/19/2023 3:57 PM CLERICAL PROOFREADER 06/19/2023 4:27 PM CLERICAL PROOFREADER Nena Ro PA-C LAB - CHEMISTRY OR DERABLES [facility] [address] [place] [address], [facility] [place] [phone] * (ABNORMAL) CBC W AUTO DIFFERENTIAL (06/19/2023 3:57 PM [facility]) Only the most recent of12 resultswithin the time period is included. WBC 8.5 4.0 - 10.7 x10E9/L 06/19/2023 4:31 PM [facility] RBC Count 4.44 4.30 - 5.80 x10E12/L 06/19/2023 4:31 PM [facility] Hemoglobin 12.7(L) 13.3 - 17.5 g/dL 06/19/2023 4:31 PM [facility] Hematocrit 39.6 38.7 - 51.1 % 06/19/2023 4:31 PM [facility] MCV 89.2 80.0 - 98.0 fL 06/19/2023 4:31 PM [facility] MCH 28.6 26.7 - 33.6 pg 06/19/2023 4:31 PM [facility] MCHC 32.1 31.7 - 36.3 g/dL 06/19/2023 4:31 PM [facility] RDW-CV 15.3(H) 11.3 - 14.8 % 06/19/2023 4:31 PM [facility] Platelet Count 233 150 - 420 x10E9/L 06/19/2023 4:31 PM [facility] MPV 11.7(H) 7.8 - 11.4 fL 06/19/2023 4:31 PM [facility] Neutrophil % 52.2 41.0 - 74.0 % 06/19/2023 4:31 PM [facility] Lymphocyte % 32.2 17.0 - 47.0 % 06/19/2023 4:31 PM [facility] Monocyte % 10.3 3.0 - 11.0 % 06/19/2023 4:31 PM [facility] Eosinophil % 4.5 0.0 - 7.0 % 06/19/2023 4:31 PM [facility] Basophil % 0.6 0.0 - 1.6 % 06/19/2023 4:31 PM [facility] Immature Granulocytes % 0.2 0.0 - 1.0 % 06/19/2023 4:31 PM [facility] Neutrophil Absolute 4.45 1.60 - 7.50 x10E9/L 06/19/2023 4:31 PM [facility] Lymphocyte Absolute 2.75 1.00 - 4.40 x10E9/L 06/19/2023 4:31 PM [facility] Monocyte Absolute 0.88 0.15 - 1.00 x10E9/L 06/19/2023 4:31 PM [facility] Eosinophil Absolute 0.38 0.00 - 0.60 x10E9/L 06/19/2023 4:31 PM [facility] Basophil Absolute 0.05 0.00 - 0.13 x10E9/L 06/19/2023 4:31 PM [facility] Blood BLOOD SPECIMEN / Unknown Venipuncture / Unknown 06/19/2023 3:57 PM CLERICAL PROOFREADER 06/19/2023 4:27 PM [facility] Nena Ro PA-C LAB - HEMATOLOGY O RDERABLES [facility] [address] [place] [address], [facility] [place] [phone] * (ABNORMAL) B-TYPE NATRIURETIC PEPTIDE (06/19/2023 3:57 PM [facility]) Only the most recent of5 resultswithin the time period is included. BNP 187(H) <100 pg/mL 06/19/2023 5:00 PM [facility] Comment: A decision threshold of 100 pg/mL has been demonstrated to provide the maximal combination of sensitivity, specificity and predictive value for the diagnosis of congestive heart failure (CHF). ??Virtually all patients with no evidence of CHF have BNP values less than 100 pg/mL. A BNP value greater than 100 pg/mL is consistent with the diagnosis of CHF in the appropriate clinical setting. In a study of 693 patients (male and female) with diagnosed CHF, the following values were determined based on the NYHA functional classification system: NYHA Functional Class ?Mean Valule (pg/mL) ? % >100 pg/mL ?I ?320 ? 58.1 ?II ? 432 ? 73.0 ?III ?656 ? 79.0 ?IV ?1635 ? 98.3 ? Blood BLOOD SPECIMEN / Unknown Venipuncture / Unknown 06/19/2023 3:57 PM CLERICAL PROOFREADER 06/19/2023 4:27 PM CLERICAL PROOFREADER Nena Ro PA-C LAB - CHEMISTRY OR DERABLES Performing Organization Address [facility] Phone Number [facility] [address] [place] [address], [facility] [place] [phone] * (ABNORMAL) COMPREHENSIVE METABOLIC PANEL (06/19/2023 3:57 PM CLERICAL PROOFREADER) Only the most recent of6 resultswithin the time period is included. BUN 23 7 - 26 mg/dL 06/19/2023 4:57 PM CLERICAL PROOFREADER [facility] Creatinine 1.36(H) 0.71 - 1.16 mg/dL 06/19/2023 4:57 PM CLERICAL PROOFREADER [facility] Sodium 142 136 - 145 mmol/L 06/19/2023 4:57 PM [facility] Potassium 4.2 3.5 - 4.5 mmol/L 06/19/2023 4:57 PM [facility] Chloride 106 98 - 107 mmol/L 06/19/2023 4:57 PM [facility] CO2 28 22 - 29 mmol/L [...] Unknown Venipuncture / Unknown 06/19/2023 3:57 PM CLERICAL PROOFREADER 06/19/2023 4:27 PM [facility] Nena Ro PA-C LAB - CHEMISTRY OR DERABLES [facility] [address] [place] [address], [facility] [place] [phone] * SARS-COV-2 (COVID-19)+INFLU A+B PCR RAPID (06/19/2023 3:56 PM CLERICAL PROOFREADER) Only the most recent of2 resultswithin the time period is included. COVID-19 PCR Not detected Not detected 06/19/19 4:55 PM CLERICAL PROOFREADER [facility] Influenza A Rapid JERARDO Not Detected Not Detected 06/19/2023 4:55 PM CLERICAL PROOFREADER [facility] Influenza B JERARDO Rapid Not Detected Not Detected 06/19/2023 4:55 PM CLERICAL PROOFREADER [facility] Microbiology SPECIMEN FROM NASOPHARYNGEAL STRUCTURE / Unknown Collection / Unknown 06/19/2023 3:56 PM CLERICAL PROOFREADER 06/19/2023 4:11 PM CLERICAL PROOFREADER Narrative [facility] - 06/19/2023 4:55 PM CLERICAL PROOFREADER Influenza assay performed by Nucleic Acid Amplification. Results do not exclude the possibility of a mixed viral infection. NOTE: ??Detecting and identifying specific viral nucleic acids from individuals exhibiting signs and symptoms of respiratory infection aids in the diagnosis of respiratory infection, if used in conjunction with other clinical and laboratory findings. The results of this test should not be used as the sole basis for diagnosis, treatment, or patient management decisions. This nucleic acid amplification assay performance was validated by [facility]. This test has been authorized by the Food and Drug administration (FDA)under an Emergency??Use Authorization (EUA). This test has been validated in accordance with the FDA's guidance document Policy for Diagnostic Testing in Laboratories Certified to perform High Complexity Testing under CLIA prior to Emergency Use Authorization for Coronavirus Disease-2019 during the Public Health Emergency issued on July 21, 2019. FDA independent review of this validation is pending. This test is only authorized for the duration of time the declaration that circumstances exist justifying the authorization of emergency use of in vitro diagnostic tests for detection of SARS-CoV-2 virus and/or diagnosis of COVID-19 infection under section 564(b)(1) of the Act, 21 U.S.C 360bbb-3 (b)(1), unless the authorization is terminated or revoked sooner. Fact Sheets for this EUA assay are available upon request. Nena Ro PA-C LAB - MICROBIOLOGY ORDERABLES [facility] [address] [place] [address], [facility] [place] [phone] * PROC EKG IN CLINIC (03/18/2022 10:26 AM CDT) Only the most recent of3 resultswithin the time period is included. Narrative Loli Bell. - 03/18/2022 10:26 AM CDT Christie Darby PA ? 03/18/2022 10:38 AM EKG shows NSR Procedure Note Christie Darby PA - 03/18/2022 10:26 AM CDT EKG shows NSR Christie ROGERS ECG ORDERABLES * CARDIAC HOLTER MONITOR ORDER (03/18/2022) Only the most recent of3 resultswithin the time period is included. Narrative 03/18/2022 Ordered by an unspecified provider. Scanned Document CARDIAC SERVICES ORD ERABLES * TX DESTRUCT BENIGN LESION, 1-14 (05/06/2021 12:31 PM CLERICAL PROOFREADER) Narrative Jeremias Haile MD - 05/06/2021 12:31 PM CLERICAL PROOFREADER Ashley Monroy MD ? 05/06/2021 12:31 PM Diagnosis and treatment options discussed. Liquid nitrogen was applied to 1 lesion (R postauricular neck) for 5-7 seconds for 1 cycle. Wound care reviewed. Ashley Monroy MD [facility] Dermatology Resident, PGY-II Jeremias Haile MD PROCEDURE/MINOR SURG ICAL ORDERABLES * (ABNORMAL) URINALYSIS MICROSCOPIC ONLY REFLEXED (04/20/2021 1:24 PM CLERICAL PROOFREADER) Only the most recent of2 resultswithin the time period is included. WBC UA 11-30(A) 0 - 5 /hpf [facility] INSURANCE BILL RBC UA None seen 0 - 2 /hpf [facility] INSURANCE BILL Epithelial Cells (non renal) >10(A) 0 - 10 /hpf [facility] INSURANCE BILL Epithelial Cells (renal) NOT NEEDED [facility] INSURANCE BILL Comment:Ancillary determined the test is not needed. Casts ua None seen None seen /lpf [facility] INSURANCE BILL Casts UA NOT NEEDED [facility] INSURANCE BILL Comment:Ancillary determined the test is not needed. Crystals UA NOT NEEDED [facility] INSURANCE BILL Comment:Ancillary determined the test is not needed. Crystals UA NOT NEEDED [facility] INSURANCE BILL Comment:Ancillary determined the test is not needed. Mucus UA NOT NEEDED [facility] INSURANCE BILL Comment:Ancillary determined the test is not needed. Bacteria UA None seen None seen/Few [facility] INSURANCE BILL Yeast UA NOT NEEDED [facility] INSURANCE BILL Comment:Ancillary determined the test is not needed. Trichomonas UA NOT NEEDED [facility] INSURANCE BILL Comment:Ancillary determined the test is not needed. Comment Urine NOT NEEDED [facility] INSURANCE BILL Comment: FASTING Ancillary determined the test is not needed. 04/20/2021 1:24 PM CLERICAL PROOFREADER 04/20/2021 Narrative Resulting Agency Comment Lab Testing performed at: [facility] [id number] [facility] ??[facility]ly [facility] [phone] Gerardo Oneal MD LAB - UR INALYSIS ORDERABLES [facility] INSURANCE BILL [address] [place] [address] * (ABNORMAL) URINALYSIS W/MICROSCOPIC NO CULTURE (04/20/2021 1:24 PM CLERICAL PROOFREADER) Only the most recent of2 resultswithin the time period is included. Specific [place] UA 1.018 1.005 - 1.030 [facility] INSURANCE BILL pH UA 5.5 5.0 - 7.5 [facility] INSURANCE BILL Color UA Yellow Yellow [facility] INSURANCE BILL Appearance Clear Clear [facility] INSURANCE BILL Leukocyte UA Trace(A) Negative [facility] INSURANCE BILL Protein UA 2+(A) Negative/Tra ce [facility] INSURANCE BILL Glucose UA Negative Negative [facility] INSURANCE BILL Ketone UA Negative Negative [facility] INSURANCE BILL Occult Blood Urine Negative Negative [facility] INSURANCE BILL Bilirubin UA Negative Negative [facility] INSURANCE BILL Urobilinogen 0.2 0.2 - 1.0 mg/dL [facility] INSURANCE BILL Nitrite UA Negative Negative [facility] INSURANCE BILL Microscopic Examination Urine See below: [facility] INSURANCE BILL Comment: Microscopic was indicated and was performed. FASTING Microscopic Examination Urine NOT NEEDED [facility] INSURANCE BILL Comment: FASTING Ancillary determined the test is not needed. Urine URINE SPECIMEN OBTAINED BY CLEAN CATCH PROCEDURE / Unknown 04/20/2021 1:24 PM CLERICAL PROOFREADER 04/20/2021 Narrative Resulting Agency Comment [facility]: [facility] [address] ??[facility] [phone] Gerardo Oneal MD LAB - UR INALYSIS ORDERABLES Performing Organization Address [facility] de Phone Number [facility] [address] [place] [address] * HEMOGLOBIN A1C (04/20/2021 1:24 PM CLERICAL PROOFREADER) Only the most recent of3 resultswithin the time period is included. Hemoglobin A1c 5.5 4.8 - 5.6 % [facility] INSURANCE BILL Comment: ? . ? Prediabetes: 5.7 - 6.4 ? Diabetes: >6.4 ? Glycemic control for adults with diabetes: <7.0 FASTING Blood BLOOD SPECIMEN / Unknown 04/20/2021 1:24 PM CLERICAL PROOFREADER 04/20/2021 Narrative Resulting Agency Comment Lab Testing performed at: [email or web address] [address] ??[facility] [phone] Gerardo Oneal MD LAB - CH EMISTRY ORDERABLES Performing Organization Address [facility] de Phone Number [facility] INSURANCE BILL [address] [place] [address] * SODIUM URINE RANDOM (04/20/2021 1:24 PM CLERICAL PROOFREADER) Only the most recent of2 resultswithin the time period is included. Sodium Urine 51 Not Estab. mmol/L [facility] INSURANCE BILL Comment:FASTING Urine URINE SPECIMEN OBTAINED BY CLEAN CATCH PROCEDURE / Unknown 04/20/2021 1:24 PM CLERICAL PROOFREADER 04/20/2021 Narrative Resulting Agency Comment Lab Testing performed at: [facility] [address] [facility] ??[facility]ly [facility] [phone] Gerardo Oneal MD LAB - UR INE CHEMISTRY ORDERABLES [facility] INSURANCE BILL [address] [place] [address] * (ABNORMAL) RENAL FUNCTION PANEL (04/20/2021 1:24 PM CLERICAL PROOFREADER) Only the most recent of9 resultswithin the time period is included. Pathologist [facility] Glucose 77 65 - 99 mg/dL [facility] INSURANCE BILL BUN 22 6 - 24 mg/dL [facility] INSURANCE BILL Creatinine 1.33(H) 0.76 - 1.27 mg/dL [facility] INSURANCE BILL eGFR by MDRD 59(L) >59 mL/min/1. 73 [facility] INSURANCE BILL eGFR by MDRD 69 >59 mL/min/1. 73 [facility] INSURANCE BILL Comment: In accordance with recommendations from the NKF-ASN Task force, ??[facility] is in the process of updating its eGFR calculation to the ??2020 CKD-EPI creatinine equation that estimates kidney function ??without a race variable. BUN/Creatinine Ratio 17 9 - 20 [facility] INSURANCE BILL Sodium 144 134 - 144 mmol/L [facility] INSURANCE BILL Potassium 5.2 3.5 - 5.2 mmol/L [facility] INSURANCE BILL Chloride 106 96 - 106 mmol/L [facility] INSURANCE BILL CO2 27 20 - 29 mmol/L [facility] INSURANCE BILL Calcium 9.1 8.7 - 10.2 mg/dL [facility] INSURANCE BILL Phosphorus 3.9 2.8 - 4.1 mg/dL [facility] INSURANCE BILL Albumin 3.2(L) 3.8 - 4.9 g/dL [facility] INSURANCE BILL Comment:FASTING Blood BLOOD SPECIMEN / Unknown 04/20/2021 1:24 PM CLERICAL PROOFREADER 04/20/2021 Narrative Resulting Agency Comment Lab Testing performed at: [facility] ??[facility]ly [facility] [phone] Gerardo Oneal MD LAB - CH EMISTRY ORDERABLES Performing Organization Address [facility] de Phone Number [facility] INSURANCE BILL [address] [place] [address] * POTASSIUM URINE RANDOM (04/20/2021 1:24 PM CLERICAL PROOFREADER) Only the most recent of2 resultswithin the time period is included. Potassium Urine 39.7 Not Estab. mmol/L [facility] INSURANCE BILL Comment:FASTING Urine URINE SPECIMEN OBTAINED BY CLEAN CATCH PROCEDURE / Unknown 04/20/2021 1:24 PM CLERICAL PROOFREADER 04/20/2021 Narrative Resulting Agency Comment Lab Testing performed at: [facility] ??[facility]ly [facility] [phone] Gerardo Oneal MD LAB - UR INE CHEMISTRY ORDERABLES Performing Organization Address [facility] Phone Number [facility] INSURANCE BILL [address] [place] [address] * (ABNORMAL) PROTEIN CREATININE RATIO URINE RANDOM PNL (04/20/2021 1:24 PM CLERICAL PROOFREADER) Only the most recent of3 resultswithin the time period is included. Creatinine Urine 121.7 Not Estab. mg/dL [facility] INSURANCE BILL Protein Urine 96.6 Not Estab. mg/dL [facility] INSURANCE BILL Protein/Creatin ine Ratio 794(H) 0 - 200 mg/g creat [facility] INSURANCE BILL Comment:FASTING Urine URINE SPECIMEN OBTAINED BY CLEAN CATCH PROCEDURE / Unknown 04/20/2021 1:24 PM CLERICAL PROOFREADER 04/20/2021 Narrative Resulting Agency Comment Lab Testing performed at: [email or web address] [address] [facility] ??[facility]ly [facility] [phone] Gerardo Oneal MD LAB - UR INE CHEMISTRY ORDERABLES Performing Organization Address [facility] de Phone Number [facility] INSURANCE BILL [address] [place] [address] * OSMOLALITY URINE (04/20/2021 1:24 PM CLERICAL PROOFREADER) Osmolality Urine 478 mOsmol/kg [facility] INSURANCE BILL Comment: ? 24 hr : ?? 300 - ??900 ? Random: ?50 - 1400 ? After 12hr fluid ? restriction: ?>850 FASTING Urine URINE SPECIMEN OBTAINED BY CLEAN CATCH PROCEDURE / Unknown 04/20/2021 1:24 PM CLERICAL PROOFREADER 04/20/2021 Narrative Resulting Agency Comment Lab Testing performed at: [address] ??[facility] [phone] Gerardo Oneal MD LAB - UR INE CHEMISTRY ORDERABLES Performing Organization [facility] System/[facility] de Phone Number [facility] INSURANCE BILL [address] [place] [address] * CHLORIDE URINE RANDOM (04/20/2021 1:24 PM CLERICAL PROOFREADER) Only the most recent of2 resultswithin the time period is included. Chloride Urine 58 Not Estab. mmol/L [facility] INSURANCE BILL Comment:FASTING Urine URINE SPECIMEN OBTAINED BY CLEAN CATCH PROCEDURE / Unknown 04/20/2021 1:24 PM CLERICAL PROOFREADER 04/20/2021 Narrative Resulting Agency Comment Lab Testing performed [facility]: [facility] [address] ??Formerly [facility] [phone] Gerardo Oneal MD LAB - UR INE CHEMISTRY ORDERABLES [facility] INSURANCE BILL [address] [place] [address] * MRI LUMBAR SPINE WO CONTRAST (03/12/2021 12:36 PM CDT) Anatomical Region Laterality Modality Spine Magnetic Resonan ce 03/12/2021 2:33 PM CDT Impressions 03/13/2021 1:59 PM CDT IMPRESSION: 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 There is severe left foraminal stenosis at L4-L5. Dictated by Freya Chowdhury MD (sr vice president). This report was approved ??by Freya Chowdhury ?? on 03/13/2021 1:58 PM . I, Dr. FABRIZIO HENDERSON have personally reviewed and interpreted this examination/study. This report was electronically signed by FABRIZIO HENDERSON ??on 03/13/2021 1:59 PM . Narrative 03/13/2021 1:59 PM CDT MRI LUMBAR SPINE WO CONTRAST DATE: 03/12/2021 12:36 PM EXAMINATION: Magnetic resonance imaging (MRI) of the lumbar spine without contrast HISTORY: M54.16: Lumbar radiculopathy TECHNIQUE: MRI of the lumbar spine was performed without intravenous contrast according to standard protocol. COMPARISON: None FINDINGS: The image quality is degraded by motion artifact. The last well-formed disc is labeled as L5-S1. Straightening of the lumbar lordosis. Mild levocurvature of the lumbar spine. The alignment is otherwise maintained. Vertebral bodies are normal in height without evidence of compression fractures. Marrow signal intensity is normal. The conus medullaris terminates at the level of L1 and the distal spinal cord signal intensity is normal. The anterior and posterior longitudinal ligaments as well as the posterior ligamentous complex appear intact. There is mild disc height loss at multiple levels, worst at L2-L3, and L5-S1. Disc desiccation at multiple levels. Mild fatty atrophy of the paraspinal muscles. Retroperitoneal the lipomatosis displaces the kidneys anteriorly. No soft tissue abnormality is identified. Individual level analysis is as follows: L1-L2: There is mild disc bulge. There is no central canal stenosis. There is moderate to severe facet osteoarthritis. There is mild to moderate bilateral neural foraminal stenosis. L2-L3: There is diffuse disc bulge. There is thickening of the ligamentum flavum. There is no significant central canal stenosis. Mild lateral recess stenosis. There is moderate facet osteoarthritis. There is moderate right and minimal left neural foraminal stenosis. L3-L4: There is diffuse disc bulge. Thickening of the ligamentum flavum. There is moderate left and mild right lateral recess stenosis. There is mild central canal stenosis. There is moderate to severe facet osteoarthritis. There is mild right and ibcb-ji-coribisa left neural foraminal stenosis. L4-L5: There is mild diffuse disc bulge. There is mild thickening of the ligamentum flavum. There is no significant central canal stenosis. There is moderate to severe facet osteoarthritis, worse on the left side. There is mild right and severe left neural foraminal stenosis. L5-S1: There is mild disc bulge eccentric to the left/foraminal/extraforaminal. There is no significant central canal stenosis. There is mild bilateral facet osteoarthritis. There is moderate left neural foraminal stenosis. Procedure Note Fabrizio Henderson MD - 03/13/2021 MRI LUMBAR SPINE WO CONTRAST DATE: 03/12/2021 12:36 PM EXAMINATION: Magnetic resonance imaging (MRI) of the lumbar spinewithout contrast HISTORY: M54.16: Lumbar radiculopathy TECHNIQUE: MRI of the lumbar spine was performed without intravenous contrast according to standard protocol. COMPARISON: None FINDINGS: The image quality is degraded by motion artifact. The last well-formed disc is labeled as L5-S1. Straightening of the lumbar lordosis. Mild levocurvature of the lumbar spine. The alignment is otherwise maintained. Vertebral bodies arenormal in height without evidence of compression fractures. Marrow signal intensity is normal. The conus medullaris terminates at the level of L1 and the distal spinal cord signal intensity is normal. The anterior and posterior longitudinal ligaments as well as the posterior ligamentous complex appear intact. There is mild disc height loss at multiplelevels, worst at L2-L3, and L5-S1. Disc desiccation at multiple levels. Mildfatty atrophy of the paraspinal muscles. Retroperitoneal the lipomatosis displaces the kidneys anteriorly. No soft tissue abnormality is identified. Individual level analysis is as follows: L1-L2: There is mild disc bulge. There is no central canal stenosis.There is moderate to severe facet osteoarthritis. There is mild to moderate bilateral neural foraminal stenosis. L2-L3: There is diffuse disc bulge. There is thickening of theligamentum flavum. There is no significant central canal stenosis. Mild lateral recess stenosis. There is moderate facet osteoarthritis. There ismoderate right and minimal left neural foraminal stenosis. L3-L4: There is diffuse disc bulge. Thickening of the ligamentum flavum. There is moderate left and mild right lateral recess stenosis. There is mild central canal stenosis. There is moderate to severe facet osteoarthritis. There is mild right and dlla-yt-djcjoqpe left neural foraminal stenosis. L4-L5: There is mild diffuse disc bulge. There is mild thickening of the ligamentum flavum. There is no significant central canal stenosis. There is moderate to severe facet osteoarthritis, worse on the left side.There is mild right and severe left neural foraminal stenosis. L5-S1: There is mild disc bulge eccentric to the left/foraminal/extraforaminal. There is no significant central canal stenosis. There is mild bilateral facet osteoarthritis. There ismoderate left neural foraminal stenosis. 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 There is severe left foraminal stenosisat L4-L5. Dictated by Freya Chowdhury MD (sr vice president). This report was approved by Freya Chowdhury on 03/13/2021 1:58 PM . I, Dr. FABRIZIO HENDERSON have personally reviewed and interpreted this examination/study. This report was electronically signed by FABRIZIO HENDERSON on 03/13/2021 1:59 PM . Se Vargas MD MR ORDERABLES * (ABNORMAL) BASIC METABOLIC PANEL (CALCIUM TOTAL) (02/17/2021 11:49 AM CDT) Only the most recent of17 resultswithin the time period is included. Glucose 87 65 - 99 mg/dL [facility] INSURANCE BILL BUN 26(H) 6 - 24 mg/dL [facility] INSURANCE BILL Creatinine 1.45(H) 0.76 - 1.27 mg/dL [facility] INSURANCE BILL eGFR by MDRD 53(L) >59 mL/min/1.7 3 [facility] INSURANCE BILL eGFR by MDRD 62 >59 mL/min/1.7 3 [facility] INSURANCE BILL Comment: [facility] currently reports eGFR in compliance with the current ??recommendations of the National Kid[employer] Foundation. [facility] will ??update reporting as new guidelines are published from the NKF-ASN ??Task force. BUN/Creatinine Ratio 18 9 - 20 [facility] INSURANCE BILL Sodium 145(H) 134 - 144 mmol/L [facility] INSURANCE BILL Potassium 4.9 3.5 - 5.2 mmol/L [facility] INSURANCE BILL Chloride 105 96 - 106 mmol/L [facility] INSURANCE BILL CO2 28 20 - 29 mmol/L [facility] INSURANCE BILL Calcium 9.0 8.7 - 10.2 mg/dL [facility] INSURANCE BILL Comment:FASTING Blood BLOOD SPECIMEN / Unknown 02/17/2021 11:49 AM CDT 02/17/2021 Narrative Resulting Agency Comment Lab Testing performed at: [address] ??Formerly [facility] [phone] Muriel Moreno MD LAB - CHEMISTRY HERNANDEZ SAL [facility] INSURANCE BILL [address] [place] [address] * XR TIBIA FIBULA RIGHT 2VW (12/22/2020 9:46 AM CDT) Only the most recent of2 resultswithin the time period is included. Anatomical Region Laterality Modality Lower Extremity Radiographic Maribel ging 12/22/2020 2:24 PM CDT Impressions 12/22/2020 7:55 PM CDT IMPRESSION: Healing changes of fibular head fracture. Dictated by Flaquito Hernandez MD (sr vice president). Dr. CHAMP Resendiz have personally reviewed and interpreted this examination/study. This report was electronically signed by CHAMP LARSON ??on 12/22/2020 7:55 PM . Narrative 12/22/2020 7:55 PM CDT EXAMINATION: XR TIBIA FIBULA RIGHT 2VW HISTORY: S82.831A: Closed fracture of proximal end of right fibula, unspecified fracture morphology, initial encounter COMPARISON: Tibia-fibula radiograph dated 11/20/2020 FINDINGS: Minimally displaced fracture of the fibular head is redemonstrated with increased sclerosis, less discernible fracture lines, and unchanged alignment. Procedure Note Champ Larson MD - 12/22/2020 EXAMINATION: XR TIBIA FIBULA RIGHT 2VW HISTORY: S82.831A: Closed fracture of proximal end of right fibula, unspecified fracture morphology, initial encounter COMPARISON: Tibia-fibula radiograph dated 11/20/2020 FINDINGS: Minimally displaced fracture of the fibular head is redemonstrated with increased sclerosis, less discernible fracture lines, and unchanged alignment. IMPRESSION: Healing changes of fibular head fracture. Dictated by Flaquito Hernandez MD (sr vice president). Dr. CHAMP Resendiz have personally reviewed and interpreted this examination/study. This report was electronically signed by CHAMP LARSON on 17:55 PM . Tito Crowe MD DIAGNOSTIC IMAGING ORDERABLES * GLUCOSE - POINT OF CARE (11/21/2020 11:29 AM CDT) Only the most recent of3 resultswithin the time period is included. Glucose WB/POC 105 70 - 115 mg/dL 11/21/2020 11:46 AM CDT [facility] Specimen Type Arterial 11/21/2020 11:46 AM CDT [facility] Blood BLOOD SPECIMEN / Unknown 11/21/2020 11:29 AM CDT 11/21/2020 11:46 AM CDT Provider Unknown LAB - POINT OF CARE ORDERABLES [facility] [address] [place] [address], [facility] [place] [phone] * (ABNORMAL) CBC W/O DIFFERENTIAL (11/21/2020 1:44 AM CDT) Only the most recent of6 resultswithin the time period is included. WBC 10.4 3.5 - 10.5 10? 3 /uL 11/21/2020 2:57 AM [facility] RBC 4.27(L) 4.30 - 5.70 10? 6 /uL 11/21/2020 2:57 AM [facility] Hemoglobin 13.1 12.0 - 17.6 g/dL 11/21/2020 2:57 AM [facility] Hematocrit 39.3 35.2 - 51.7 % 11/21/2020 2:57 AM [facility] MCV 92.0 80.7 - 98.3 fL 11/21/2020 2:57 AM [facility] MCH 30.7 26.7 - 34.0 pg 11/21/2020 2:57 AM [facility] MCHC 33.3 30.8 - 35.9 g/dL 11/21/2020 2:57 AM [facility] Platelet Count 189 150 - 400 10? 3 /uL 11/21/2020 2:57 AM [facility] RDW-SD 54.4(H) 36.0 - 50.0 fL 11/21/2020 2:57 AM [facility] RDW-CV 16.3(H) 11.2 - 14.8 % 11/21/2020 2:57 AM [facility] MPV 13.0(H) 9.4 - 12.9 fL 11/21/2020 2:57 AM [facility] nRBC Absolute 0.00 0 10? 3 /uL 11/21/2020 2:57 AM [facility] nRBC Auto 0.0 0 /100 WBC 11/21/2020 2:57 AM [facility] Blood BLOOD SPECIMEN / Unknown Lab Venipuncture / Unknown 11/21/2020 1:44 AM CDT 11/21/2020 2:32 AM CDT Dann Mendoza MD LAB - HEMATOLOGY ORD ERABLES Performing Organization Address City/[facility]/ZIP Co de Phone Number [address] [address], [facility] [place] [phone] * TSH (11/21/2020 1:44 AM CDT) Only the most recent of2 resultswithin the time period is included. TSH 1.443 0.350 - 4.940 uIU/mL 11/21/2020 3:20 AM CDT [facility] Blood BLOOD SPECIMEN / Unknown Lab Venipuncture / Unknown 11/21/2020 1:44 AM CDT 11/21/2020 2:32 AM CDT Calos Marques APRN-LOAN WORKOUT OFFICER LAB - CHEMISTR Y ORDERABLES Performing Organization Address City/[facility]/ZIP Co de Phone Number [address] [address], [facility] [place] [phone] * ECHO COMPLETE W BUBBLE STUDY (11/20/2020 3:36 PM CDT) Anatomical Region Laterality Modality Chest Echo 11/20/2020 2:30 PM CDT Narrative Procedure Note Marely Walker MD - 11/21/2020 Dann Mendoza MD ECHOCARDIOGRAPHY RAD IANT * TROPONIN I (11/20/2020 1:42 PM CDT) Only the most recent of10 resultswithin the time period is included. Troponin I 0.016 <0.032 ng/mL 11/20/2020 2:28 PM CDT [facility] Blood BLOOD SPECIMEN / Unknown Venipuncture / Unknown 11/20/2020 1:42 PM CDT 11/20/2020 1:50 PM CDT Dann Mendoza MD LAB - CHEMISTRY HERNANDEZ SAL [facility] [address] [place] [address], [facility] [place] [phone] * (ABNORMAL) LIPID PROFILE (11/20/2020 1:42 PM CDT) Only the most recent of3 resultswithin the time period is included. [facility] Signature Cholesterol Total 95 <200 mg/dL 11/20/2020 2:21 PM [facility] HDL 34(L) >40 mg/dL 11/20/2020 2:21 PM [facility] Comment: ATP III Classification of HDL Cholesterol: ? <40 mg/dL: ??Considered a major risk factor. ? >60 mg/dL: ??Considered a negative risk factor. ? LDL Calculated 49 <100 mg/dL 11/20/2020 2:21 PM [facility] Comment: ATP III Classification of LDL Cholesterol: ?<100 mg/dL: ??Optimal ? 100 - 129 mg/dL: ??Near Optimal/Above Optimal ? 130 - 159 mg/dL: ??Borderline High ? 160 - 189 mg/dL: ??High ?>190 mg/dL: ??Very High ? Triglycerides 61 <150 mg/dL 11/20/2020 2:21 PM [facility] Comment: ATP III Classification of Triglycerides: ?<150 mg/dL: ??Normal ? 150 - 199 mg/dL: ??Borderline High ? 200 - 400 mg/dL: ??High ?>500 mg/dL: ??Very High Blood BLOOD SPECIMEN / Unknown Venipuncture / Unknown 11/20/2020 1:42 PM CDT 11/20/2020 1:50 PM CDT Dann Mendoza MD LAB - CHEMISTRY HERNANDEZ SAL [facility] Organization Address City/State/ZIP Co de Phone Number [address] [address], [facility] [place] [phone] * XR STRESS ANY JOINT (11/20/2020 1:32 PM CDT) Anatomical Region Laterality Modality Lower Extremity, Upper Extremity Radiographic Imaging 11/20/2020 2:13 PM CDT Impressions 11/20/2020 2:27 PM CDT FINDINGS/IMPRESSION: A single internal oblique stress view of the right ankle shows no widening of the medial clear space. Deformity of the distal tibia is redemonstrated which may indicate a nondisplaced fracture. IDr. HARRISON have personally reviewed and interpreted this examination/study. This report was electronically signed by HARRISON SANDHU ??on 11/20/2020 2:27 PM . Narrative 11/20/2020 2:27 PM CDT EXAMINATION: XR STRESS ANY JOINT HISTORY: S82.831A: Closed fracture of proximal end of right fibula, unspecified fracture morphology, initial encounter COMPARISON: Concurrent radiographs of the ankle Procedure Note Harrison Sandhu, DO - 11/20/2020 EXAMINATION: XR STRESS ANY JOINT HISTORY: S82.831A: Closed fracture of proximal end of right fibula, unspecified fracture morphology, initial encounter COMPARISON: Concurrent radiographs of the ankle FINDINGS/IMPRESSION: A single internal oblique stress view of the right ankle shows nowidening of the medial clear space. Deformity of the distal tibia isredemonstrated which may indicate a nondisplaced fracture. IDr. HARRISON have personally reviewed and interpreted this examination/study. This report was electronically signed by HARRISON SANDHU on 11/20/2020 2:27 PM . Tito Crowe MD DIAGNOSTIC IMAGING ORDERABLES * XR ANKLE RIGHT 3VW OR MORE (11/20/2020 1:31 PM CDT) Anatomical Region Laterality Modality Lower Extremity Radiographic Maribel ging 11/20/2020 2:16 PM CDT Impressions 11/20/2020 2:43 PM CDT IMPRESSION: No acute osseous injury. Report drafted by Kiel Vu M.D. (resident) Dr. HARRISON Resendiz have personally reviewed and interpreted this examination/study. This report was electronically signed by HARRISON SANDHU ??on 11/20/2020 2:43 PM . Narrative 11/20/2020 2:43 PM CDT EXAMINATION: XR ANKLE RIGHT 3VW OR MORE HISTORY: S82.831A: Closed fracture of proximal end of right fibula, unspecified fracture morphology, initial encounter COMPARISON: Same day radiographs of the right tibia/fibula FINDINGS: The osseous structures are intact and well aligned without acute fracture or dislocation. The ankle mortise is intact. No joint effusion is seen. There is a bony island in the distal tibia. Bone density and texture are normal. No soft tissue swelling is present. Procedure Note Harrison Sandhu, - 11/20/2020 EXAMINATION: XR ANKLE RIGHT 3VW OR MORE HISTORY: S82.831A: Closed fracture of proximal end of right fibula, unspecified fracture morphology, initial encounter COMPARISON: Same day radiographs of the right tibia/fibula FINDINGS: The osseous structures are intact and well aligned without acutefracture or dislocation. The ankle mortise is intact. No joint effusion is seen. There is a bony island in the distal tibia. Bone density and texture are normal. No soft tissue swelling is present. IMPRESSION: No acute osseous injury. Report drafted by Kiel Vu M.D. (resident) Dr. HARRISON Resendiz have personally reviewed and interpreted this examination/study. This report was electronically signed by HARRISON SANDHU on 11/20/2020 2:43 PM . Radha Haile MD DIAGNOSTIC IMAGING O RDERABLES * MRI BRAIN WO CONTRAST (11/20/2020 10:54 AM CDT) Anatomical Region Laterality Modality Head Magnetic Resonan ce 11/20/2020 11:2 8 AM CDT Impressions 11/20/2020 1:42 PM CDT IMPRESSION: 1. No acute intracranial hemorrhage or evidence of acute ischemic infarct. This report was approved ??by Lj Womack ?? on 11/20/2020 1:42 PM . I, Dr. FABRIZIO HENDERSON have personally reviewed and interpreted this examination/study. This report was electronically signed by FABRIZIO HENDERSON ??on 11/20/2020 1:42 PM . Narrative 11/20/2020 1:42 PM CDT MRI BRAIN WO CONTRAST DATE: 11/20/2020 10:55 AM EXAM: MR BRAIN WITHOUT CONTRAST CLINICAL INDICATION: R47.01: Expressive aphasia TECHNIQUE: Sagittal T1, axial diffusion, T2 FLAIR, T2, T1, SWI and coronal T2 FLAIR weighted images of the brain were obtained without intravenous contrast administration. COMPARISON: Same day CT head. FINDINGS: No evidence of acute or chronic hemorrhage is identified. No evidence of acute cerebral infarction is seen. The ventricles are of normal size, shape, and morphology. No mass effect or midline shift is seen. Mild periventricular white matter FLAIR hyperintensities are nonspecific, but can be seen in the setting of chronic small vessel ischemic disease. There is a partially empty sella. The corpus callosum is unremarkable. The posterior fossa, brainstem, and craniocervical junction appear normal. The visualized portions of the orbits, paranasal sinuses, and mastoids appear normal aside from a trace mucosal thickening in the ethmoid air cells. Normal flow voids are demonstrated in the carotid arteries and basilar artery. The calvarium and visualized cervical spine appear normal. Procedure Note Fabrizio Henderson MD - 11/20/2020 MRI BRAIN WO CONTRAST DATE: 11/20/2020 10:55 AM EXAM: MR BRAIN WITHOUT CONTRAST CLINICAL INDICATION: R47.01: Expressive aphasia TECHNIQUE: Sagittal T1, axial diffusion, T2 FLAIR, T2, T1, SWI andcoronal T2 FLAIR weighted images of the brain were obtained without intravenous contrast administration. COMPARISON: Same day CT head. FINDINGS: No evidence of acute or chronic hemorrhage is identified. No evidence of acute cerebral infarction is seen. The ventricles are of normal size, shape, and morphology. No mass effect or midline shift is seen. Mild periventricular white matter FLAIR hyperintensities are nonspecific, but can be seen in the setting of chronic small vessel ischemic disease.There is a partially empty sella. The corpus callosum is unremarkable. The posterior fossa, brainstem, and craniocervical junction appear normal. The visualized portions of the orbits, paranasal sinuses, and mastoids appear normal aside from a trace mucosal thickening in the ethmoid air cells. Normal flow voids are demonstrated in the carotid arteries and basilar artery. The calvarium and visualized cervical spine appearnormal. IMPRESSION: 1. No acute intracranial hemorrhage or evidence of acute ischemicinfarct. This report was approved by Lj Womack on 11/20/2020 1:42 PM . I, Dr. FABRIZIO HENDERSON have personally reviewed and interpreted this examination/study. This report was electronically signed by FABRIZIO HENDERSON on11/20/2020 1:42 PM . Sy Cordero MD MR ORDERABLES * (ABNORMAL) BLOOD GASES CRISTY + COOX PANEL (11/20/2020 10:05 AM [facility]) pH Venous 7.37 7.32 - 7.42 pH 11/20/2020 10:35 AM [facility] pO2 Venous 32(L) 35 - 40 mmHg 11/20/2020 10:35 AM [facility] pCO2 Venous 59(H) 40 - 50 mmHg 11/20/2020 10:35 AM [facility] HCO3 Venous 34.1(HH) 20 - 30 mmol/L 11/20/2020 10:35 AM [facility] Comment:Critical value(s) maldonado ve been verified and called to and read back by Audra Solis RN at 10:34 on . Base Excess Venous 6.9(H) -2.0 - 2.0 mmol/L 11/20/2020 10:35 AM [facility] Oxyhemoglobin Venous 51.7 % 05/2020 10:35 AM [facility] Deoxyhemoglobin (HHB) Venous % 47.0 % 11/20/2020 10:35 AM [facility] Methemoglobin <0.8 0.0 - 2.0 % 11/20/2020 10:35 AM [facility] Carboxyhemoglobin 1.1 0.0 - 2.0 % 2020 10:35 AM [facility] O2 Content Venous 9.7 Interpret within clinical context mg/dL 11/20/2020 10:35 AM [facility] Hemoglobin by COOX 13.3 12.0 - 17.6 g/dL 11/20/2020 10:35 AM [facility] O2 Saturation Venous 52(L) >=70 % 05/2020 10:35 AM [facility] FI O2 Mixed Venous 21.0 % 2020 10:35 AM T [facility] Blood BLOOD SPECIMEN / Unknown Venipuncture / Unknown 11/20/2020 10:05 AM CDT 11/20/2020 10:27 AM CDT Narrative [facility] - 11/20/2020 10:35 AM CDT Carboxyhemoglobin Normal Concentration: Non-smokers: 0-2%; Smokers: 0-9%; Toxic: >20% Radha Haile MD LAB - BLOOD GASES OR DERABLES [address] [address], [facility] [place] [phone] * BLOOD TYPE VERIFICATION (11/20/2020 10:05 AM CDT) ABO Rh A POS 11/20/2020 11:05 AM [facility] Blood Bank BLOOD SPECIMEN / Unknown Venipuncture / Unknown 11/20/2020 10:05 AM CDT 11/20/2020 10:36 AM CDT Sy Cordero MD LAB - BLOOD BAN K ORDERABLES [facility] [address] [place] [address], [facility] [phone] * ALCOHOL ETHYL BLOOD (11/20/2020 10:05 AM CDT) Ethanol (mg/dL) <10 <10 mg/dL 10:55 AM [facility] Ethanol Calculated (g/dL) <0.010 <0.010 g/dL 11/20/2020 10:55 AM [facility] Blood BLOOD SPECIMEN / Unknown Venipuncture / Unknown 11/20/2020 10:05 AM CDT 11/20/2020 10:31 AM [facility] - 11/20/2020 10:55 AM [facility] Ethanol Interp <10: None Detected. Depression of C.O.D. CLERK: >100 mg/dl Potentially Critical: >250 mg/dl Potentially Fatal >400 mg/dl Ethanol in the patient's blood will contribute to the osmolar gap. Ethanol's contribution to the osmolar gap can be estimated by dividing the concentration of ethanol in mg/dL by 4.6. This test is for clinical use only and does not equal a BRISSA for legal purposes. Sy Cordero MD LAB - CHEMISTRY ORDERABLES [facility] [address] [place] [phone], [facility] [place] [phone] * URINALYSIS W/MICROSCOPIC REFLEX TO CULTURE (11/20/2020 9:59 AM [facility]) Color UA Straw Straw, Yellow 11/20/2020 10:47 AM [facility] Clarity UA Clear Clear 11/20/2020 10:47 AM [facility] Specific [place] UA 1.012 1.005 - 1.030 11/20/2020 10:47 AM [facility] pH UA 7.0 5.0 - 8.0 pH 11/20/2020 10:47 AM [facility] Protein UA Negative Negative 11/20/2020 10:47 AM [facility] Glucose UA Negative Negative 11/20/2020 10:47 AM [facility] Ketone UA Negative Negative 11/20/2020 10:47 AM [facility] Bilirubin UA Negative Negative 11/20/2020 10:47 AM [facility] Blood UA Negative Negative 11/20/2020 10:47 AM [facility] Nitrite UA Negative Negative 11/20/2020 10:47 AM [facility] Leukocyte Esterase Negative Negative 11/20/2020 10:47 AM [facility] Urobilinogen UA Negative Negative mg/dL 11/20/2020 10:47 AM [facility] RBC UA 0-2 None Seen, 0-2, 3-5 /HPF 11/20/2020 10:47 AM [facility] WBC UA None Seen None Seen, 0-5 /HPF 11/20/2020 10:47 AM [facility] Squamous Epithelial Cells UA None Seen None Seen, 0-2, 3-5 /HPF 11/20/2020 10:47 AM [facility] Urine URINE SPECIMEN OBTAINED BY CLEAN CATCH PROCEDURE / Unknown Collection / Unknown 11/20/2020 9:59 AM T 11/20/2020 10:27 AM [facility] - 11/20/2020 10:47 AM [facility] Culture Not Indicated Radha Haile MD LAB - URINALYSIS ORD ERABLES [facility] [address] [place] [address], [facility] [place] [phone] * URINE DRUG SCREEN IMMUNOASSAY (11/20/2020 9:59 AM [facility]) [facility] Amphetamines Screen Urine Negative Negative: < 1000 ng/mL 11/20/2020 10:46 AM [facility] Barbiturates Screen Urine Negative Negative: < 200 ng/mL 11/20/2020 10:46 AM [facility] Benzodiazepine Screen Urine Negative Negative: < 200 ng/mL 11/20/2020 10:46 AM [facility] Opiates Urine Negative Negative: < 300 ng/mL 11/20/2020 10:46 AM [facility] Cocaine Metabolites Urine Negative Negative: < 300 ng/mL 11/20/2020 10:46 AM [facility] Phencyclidine Screen Urine Negative Negative: < 25 ng/ml 11/20/2020 10:46 AM [facility] Cannabinoids Screen Urine Negative Negative: <50 ng/mL 11/20/2020 10:46 AM [facility] Methadone Screen Urine Negative Negative: < 300 ng/mL 11/20/2020 10:46 AM CDT [facility] Fentanyl Screen Urine Negative Negative: <1.0 ng/mL 11/20/2020 10:46 AM CDT [facility] Urine URINE / Unknown Collection / Unknown 11/20/2020 9:59 AM CDT 11/20/2020 10:27 AM CDT Narrative [facility] - 11/20/2020 10:46 AM CDT The Urine Toxicology Screening Panel does not screen for Propoxyphene, Meprobamate, Carisoprodol, Trazodone, dejc-hxy-cujnryw medications and/or volatiles (Acetone, Isopropanol, Methanol or Ethylene Glycol). Ethanol, Salicylate, Acetaminophen, Tricyclic Antidepressants and several therapeutic drugs may be individually assayed in serum or plasma specimen. Toxicology testing by the [facility] is an aid to medical diagnosis and treatment of patients. No documented chain of custody was maintained. Results are intended to be used for clinical purposes only. ? Radha Haile MD LAB - URINE CHEMISTR Y ORDERABLES Performing Organization Address [facility]/State/[facility] Co de Phone Number [address] [address], [place] [phone] * CT CERVICAL SPINE WO CONTRAST (11/20/2020 9:12 AM CDT) Anatomical Region Laterality Modality Spine Computed Tomogra phy 11/20/2020 9:16 AM CDT Impressions 11/20/2020 11:21 AM CDT IMPRESSION: 1.No acute osseous abnormality. 2.Degenerative changes without critical spinal canal stenosis. 3.Diffuse enlargement and heterogeneity of the thyroid gland. Further evaluation with thyroid sonogram is recommended. Dictated by Mariana Orr M.D. (sr vice president) I, Dr. DIVINA DUDLEY have personally reviewed and interpreted this examination/study. This report was electronically signed by DIVINA DUDLEY ??on 11/20/2020 11:21 AM . Narrative 11/20/2020 11:[address] CERVICAL SPINE WO CONTRAST DATE: 11/20/2020 9:12 AM EXAMINATION: Computed tomography (CT) of the cervical spine without contrast HISTORY: R47.01: Expressive aphasia TECHNIQUE: CT of the cervical spine was performed without contrast according to standard protocol COMPARISON: No prior study is available for comparison at the time of this dictation. FINDINGS: There is straightening of the cervical curvature without significant subluxation. The vertebrae are normal in height without fracture. No aggressive appearing osseous lytic or sclerotic lesions are seen. There is no prevertebral soft tissue swelling. Multilevel degenerative changes are seen, as described below: C2-3: No focal disc herniation. Fusion of right C2-3 facet joint. Uncovertebral hypertrophy, right greater than left. No significant spinal canal or foraminal stenosis. C3-4: Fusion of C3-4 vertebral bodies, development of. Fusion of left C3-4 facet joint. No spinal canal stenosis. Moderate left foraminal stenosis. C4-5: No focal disc herniation. Facet degenerative changes. No spinal canal stenosis. Mild bilateral foraminal stenosis. C5-6: Mild loss of disc space height with endplate degenerative changes. Mild disc bulge. Bilateral facet degenerative changes. Mild spinal canal stenosis. Mild left foraminal stenosis. C6-7: Mild loss of disc space height. Endplate spurring. Mild facet degenerative changes. Mild spinal canal stenosis. Mild bilateral foraminal stenosis. C7-T1: Mild loss of disc space height. Endplate spurring. Mild facet degenerative changes. No significant spinal canal stenosis. Mild bilateral foraminal stenosis. There is diffuse enlargement and heterogeneity of the thyroid gland. Procedure Note Divina Dudley MD - 11/20/2020 CT CERVICAL SPINE WO CONTRAST DATE: 11/20/2020 9:12 AM EXAMINATION: Computed tomography (CT) of the cervical spine without contrast HISTORY: R47.01: Expressive aphasia TECHNIQUE: CT of the cervical spine was performed without contrast according to standard protocol COMPARISON: No prior study is available for comparison at the time ofthis dictation. FINDINGS: There is straightening of the cervical curvature without significant subluxation. The vertebrae are normal in height without fracture. No aggressive appearing osseous lytic or sclerotic lesions are seen. Thereis no prevertebral soft tissue swelling. Multilevel degenerative changes are seen, as described below: C2-3: No focal disc herniation. Fusion of right C2-3 facet joint. Uncovertebral hypertrophy, right greater than left. No significantspinal canal or foraminal stenosis. C3-4: Fusion of C3-4 vertebral bodies, development of. Fusion of leftC3-4 facet joint. No spinal canal stenosis. Moderate left foraminal stenosis. C4-5: No focal disc herniation. Facet degenerative changes. No spinal canal stenosis. Mild bilateral foraminal stenosis. C5-6: Mild loss of disc space height with endplate degenerative changes. Mild disc bulge. Bilateral facet degenerative changes. Mild spinal canal stenosis. Mild left foraminal stenosis. C6-7: Mild loss of disc space height. Endplate spurring. Mild facet degenerative changes. Mild spinal canal stenosis. Mild bilateralforaminal stenosis. C7-T1: Mild loss of disc space height. Endplate spurring. Mild facet degenerative changes. No significant spinal canal stenosis. Mildbilateral foraminal stenosis. There is diffuse enlargement and heterogeneity of the thyroid gland. IMPRESSION: 1.No acute osseous abnormality. 2.Degenerative changes without critical spinal canal stenosis. 3.Diffuse enlargement and heterogeneity of the thyroid gland. Further evaluation with thyroid sonogram is recommended. Dictated by Mariana Orr M.D. (sr vice president) I, Dr. DIVINA DUDLEY have personally reviewed and interpreted this examination/study. This report was electronically signed by DIVINA DUDLEY on 11/20/2020 11:21AM . Radha Haile MD CT ORDERABLES * XR KNEE RIGHT 3VW (11/20/2020 6:57 AM CDT) Anatomical Region Laterality Modality Lower Extremity Radiographic Maribel ging 11/20/2020 8:44 AM CDT Impressions 11/20/2020 8:46 AM CDT IMPRESSION: Fracture of the fibular head. This report was electronically signed by EUGENIO SCHWARTZ M.D. ??on 11/20/2020 8:46 AM . Narrative 11/20/2020 8:46 AM CDT Exam: XR KNEE RIGHT 3VW Date: 11/20/2020 6:58 AM History: R47.01: Expressive aphasia, right knee pain COMPARISON: None FINDINGS: There is a minimally displaced fracture of the fibular head. There are mild tricompartment degenerative changes, greatest at the medial compartment. Bone density is normal. There is minimal joint effusion. Procedure Note Eugenio Schwartz MD - 11/20/2020 Exam: XR KNEE RIGHT 3VW Date: 11/20/2020 6:58 AM History: R47.01: Expressive aphasia, right knee pain COMPARISON: None FINDINGS: There is a minimally displaced fracture of the fibular head. There are mild tricompartment degenerative changes, greatest at themedial compartment. Bone density is normal. There is minimal joint effusion. IMPRESSION: Fracture of the fibular head. This report was electronically signed by EUGENIO SCHWARTZ M.D. on 11/20/2020 8:46 AM . Sy Cordero MD DIAGNOSTIC IMAG ING ORDERABLES * XR PELVIS W RIGHT HIP 2VW (11/20/2020 6:42 AM CDT) Anatomical Region Laterality Modality Pelvis Radiographic Maribel ging 11/20/2020 10:0 4 AM CDT Impressions 11/20/2020 10:31 AM CDT IMPRESSION: No acute osseous abnormality. Report drafted by Shamar Stapleton DO, MPH (resident) IDr. EUGENIO M.D. have personally reviewed and interpreted this examination/study. This report was electronically signed by EUGENIO SCHWARTZ M.D. ??on 11/20/2020 10:31 AM . Narrative 11/20/2020 10:31 AM CDT EXAMINATION: XR PELVIS W RIGHT HIP 2VW HISTORY: R47.01: Expressive aphasia COMPARISON: None. FINDINGS: No acute fracture is identified. The femoral heads appear well-seated within their respective acetabula. The joint spaces are preserved. The pubic symphysis is intact. The osseous architecture and density are normal. The sacroiliac joints are normal. The urinary bladder is distended. Degenerative changes are seen in the lower lumbar spine. Procedure Note Eugenio Schwartz MD - 11/20/2020 EXAMINATION: XR PELVIS W RIGHT HIP 2VW HISTORY: R47.01: Expressive aphasia COMPARISON: None. FINDINGS: No acute fracture is identified. The femoral heads appear well-seated within their respective acetabula. The joint spaces are preserved. The pubic symphysis is intact. The osseous architecture and density are normal. The sacroiliac joints are normal. The urinary bladder is distended. Degenerative changes are seen in the lower lumbar spine. IMPRESSION: No acute osseous abnormality. Report drafted by Shamar Stapleton DO, MPH (resident) I, Dr. EUGENIO SCHWARTZ M.D. have personally reviewed and interpreted this examination/study. This report was electronically signed by EUGENIO SCHWARTZ M.D. on 11/20/2020 10:31 AM . Sy Cordero MD DIAGNOSTIC IMAG ING ORDERABLES * PT-INR [facility] (11/20/2020 6:00 AM CDT) Only the most recent of4 resultswithin the time period is included. PT 13.9 12.1 - 14.8 Seconds 11/20/2020 6:22 AM CDT [facility] INR 1.1 See Comment 11/20/2020 6:22 AM T [facility] Comment:The suggested therap eutic range for standard coumadin (warfarin) therapy is an INR of 2.0-3.0. For high-risk patients (Mechanical Mitral Valve Prosthesis, etc.), the suggested prophylactic therapeutic range is an INR of 2.5-3.5. Blood BLOOD SPECIMEN / Unknown Venipuncture / Unknown 11/20/2020 6:00 AM CDT 11/20/2020 6:04 AM CDT Sy Cordero MD LAB - COAGULATI ON ORDERABLES [facility] [address] [place] [address], [facility] [place] [phone] * TYPE + SCREEN PANEL (11/20/2020 6:00 AM CDT) Only the most recent of2 resultswithin the time period is included. Antibody Screen NEG 6:49 AM CDT [facility] ABO Rh A POS 11/20/2020 6:49 AM CDT [facility] Blood Bank BLOOD SPECIMEN / Unknown Venipuncture / Unknown 11/20/2020 6:00 AM CDT 11/20/2020 6:09 AM CDT Sy Cordero MD LAB - BLOOD BAN K ORDERABLES Performing Organization Address [facility] Co de Phone Number [facility] [address] [place] [address], [facility] [place] [phone] * CT ANGIO BRAIN NECK STROKE (11/20/2020 5:51 AM CDT) Anatomical Region Laterality Modality Head Computed Tomogra phy 11/20/2020 7:45 AM CDT Addenda Addendum by Divina Dudley MD on 11/20/2020 2:10 PM CDT ORIGINAL REPORT EXAMINATION: CT angiography of the brain CT angiography of the neck HISTORY: R47.01: Expressive aphasia TECHNIQUE: CT angiography of the head and neck was obtained after the uneventful administration of 100 mL Isovue 370 intravenous contrast. Three dimensional postprocessing was performed by the technologist and sent to the workstation for review. NASCET criteria was utilized for evaluation of carotid stenosis. COMPARISON: No prior FINDINGS: The common and internal carotid arteries are patent bilaterally without wall calcification or hemodynamically significant stenosis. There is occlusion of a left MCA M3 branch in the distal sylvian fissure (series 8 image). The anterior and middle cerebral arteries are otherwise within normal limits. ??There is a normal anterior communicating artery. The vertebral arteries are normal in intracranial and extracranial course. The basilar artery is normal. ??The posterior cerebral arteries are within normal limits. The right posterior communicating artery is visualized There is fusion of right C2-3 and left C3-4 facet joints. There is fusion of C3-4 vertebrae across the disc, developmental. There is critical stenosis of left C3-4 and mild to moderate stenosis of left C4-5. 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 Otherwise, no abnormality of the intracranial arteries. 2.No stenosis of the cervical segment of carotid and vertebral arteries. The findings were discussed with Dr. Turner at 7:[address] Dudley. This report was electronically signed by DIVINA DUDLEY ??on 11/20/2020 8:00 AM . ADDENDUM #1 Upon further review, the left MCA branch vessel that was originally thought to be occluded is probably a vein. This report was electronically signed by DIVINA DUDLEY ??on 11/20/2020 2:07 PM . Impressions 11/20/2020 8:00 AM CDT IMPRESSION: 1.Occlusion of left MCA M3 branch in the distal sylvian fissure. Otherwise, no abnormality of the intracranial arteries. 2.No stenosis of the cervical segment of carotid and vertebral arteries. The findings were discussed with Dr. Turner at 7:[address] Dudley. This report was electronically signed by DIVINA DUDLEY ??on 11/20/2020 8:00 AM . Narrative 11/20/2020 8:00 AM CDT EXAMINATION: CT angiography of the brain CT angiography of the neck HISTORY: R47.01: Expressive aphasia TECHNIQUE: CT angiography of the head and neck was obtained after the uneventful administration of 100 mL Isovue 370 intravenous contrast. Three dimensional postprocessing was performed by the technologist and sent to the workstation for review. NASCET criteria was utilized for evaluation of carotid stenosis. COMPARISON: No prior FINDINGS: The common and internal carotid arteries are patent bilaterally without wall calcification or hemodynamically significant stenosis. There is occlusion of a left MCA M3 branch in the distal sylvian fissure (series 8 image). The anterior and middle cerebral arteries are otherwise within normal limits. ??There is a normal anterior communicating artery. The vertebral arteries are normal in intracranial and extracranial course. The basilar artery is normal. ??The posterior cerebral arteries are within normal limits. The right posterior communicating artery is visualized There is fusion of right C2-3 and left C3-4 facet joints. There is fusion of C3-4 vertebrae across the disc, developmental. There is critical stenosis of left C3-4 and mild to moderate stenosis of left C4-5. Procedure Note Divina Dudley MD - 11/20/2020 EXAMINATION: CT angiography of the brain CT angiography of the neck HISTORY: R47.01: Expressive aphasia TECHNIQUE: CT angiography of the head and neck was obtained after the uneventful administration of 100 mL Isovue 370 intravenous contrast.Three dimensional postprocessing was performed by the technologist and sent to the workstation for review. NASCET criteria was utilized for evaluationof carotid stenosis. COMPARISON: No prior FINDINGS: The common and internal carotid arteries are patent bilaterally without wall calcification or hemodynamically significant stenosis. There is occlusion of a left MCA M3 branch in the distal sylvian fissure (series8 image). The anterior and middle cerebral arteries are otherwise within normal limits. There is a normal anterior communicating artery. The vertebral arteries are normal in intracranial and extracranialcourse. The basilar artery is normal. The posterior cerebral arteries arewithin normal limits. The right posterior communicating artery is visualized There is fusion of right C2-3 and left C3-4 facet joints. There isfusion of C3-4 vertebrae across the disc, developmental. There is critical stenosis of left C3-4 and mild to moderate stenosis of left C4-5. 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 Otherwise, no abnormality of the intracranial arteries. 2.No stenosis of the cervical segment of carotid and vertebral arteries. The findings were discussed with Dr. Turner at 7:[address] Dudley. This report was electronically signed by DIVINA DUDLEY on 11/20/2020 8:[address] Dann Mendoza MD CT ORDERABLES * INR WHOLE BLOOD - POINT OF CARE (IP) STROKE (11/20/2020 5:47 AM CDT) Blood BLOOD SPECIMEN / Unknown 11/20/2020 5:47 AM CDT 11/20/2020 5:59 AM CDT Provider Unknown LAB - POINT OF CARE ORDERABLES Performing Organization Address City/[facility]/ZIP Co de Phone Number [address] [address], [facility] [place] [phone] * CREATININE - POCT INTERFACED (11/20/2020 5:47 AM CDT) Creatinine POCT 0.99 0.30 - 1.30 mg/dL 11/20/2020 6:09 AM CDT [facility] eGFR >60 >60 mL/min/1.7 3 m2 11/20/2020 6:09 AM CDT [facility] Blood BLOOD SPECIMEN / Unknown 11/20/2020 5:47 AM CDT 11/20/2020 6:09 AM CDT Provider Unknown LAB - POINT OF CARE ORDERABLES Performing Organization Address [facility] Co de Phone Number [address] [address], [facility] [place] [phone] * CT BRAIN - Stroke (11/20/2020 5:45 AM CDT) Anatomical Region Laterality Modality Head Computed Tomogra phy 11/20/2020 7:43 AM CDT Impressions 11/20/2020 7:45 AM CDT IMPRESSION: No acute intracranial abnormality. The preliminary findings were discussed by Dr. Egan with Dr. Burris at 5:57 AM on 11/20/2020. This report was electronically signed by DIVINA DUDLEY ??on 11/20/2020 7:45 AM . Narrative 11/20/2020 7:45 AM CDT EXAMINATION: Computed tomography (CT) of the head without contrast HISTORY: Code Stroke TECHNIQUE: CT of the head was performed without contrast according to standard protocol. COMPARISON: No prior study is available for comparison at the time of this dictation.. FINDINGS: There is no CT evidence of acute infarct. There is no acute hemorrhage. There is no hydrocephalus, midline shift or extra-axial fluid collection. There is no significant parenchymal abnormality. The paranasal sinuses and tympanomastoid cavities are aerated. The orbits are unremarkable. There is no skull fracture. Mild scalp swelling is seen at the vertex. Procedure Note Divina Dudley MD - 11/20/2020 EXAMINATION: Computed tomography (CT) of the head without contrast HISTORY: Code Stroke TECHNIQUE: CT of the head was performed without contrast according to standard protocol. COMPARISON: No prior study is available for comparison at the time ofthis dictation.. FINDINGS: There is no CT evidence of acute infarct. There is no acute hemorrhage. There is no hydrocephalus, midline shift or extra-axial fluidcollection. There is no significant parenchymal abnormality. The paranasal sinuses and tympanomastoid cavities are aerated. Theorbits are unremarkable. There is no skull fracture. Mild scalp swelling isseen at the vertex. IMPRESSION: No acute intracranial abnormality. The preliminary findings were discussed by Dr. Egan with Dr. Salinas 5:57 AM on 11/20/2020. This report was electronically signed by DIVINA DUDLEY on 11/20/2020 7:45 AM. Sy Cordero MD CT ORDERABLES * Holter Read - 14 Day (08/19/2020 8:44 PM CDT) Narrative Luis Wylie MD - 08/19/2020 8:44 PM CDT Luis Wylie MD ? 08/19/2020 ??8:49 PM HOLTER MONITOR REPORT: Patient name: Howie Delaney Patient : ??1965 Patient Age: [age] year old Indication: Palpitations Requesting provider: Berenice Plaza Study Duration: Test Start 24-Jul-2020 10:33:37 Sushila Test End 05-Aug-2020 10:11:58 Tue Test Duration 11d 23h 38min Analysis Duration 9d 18h 29min Summary: *The predominant rhythm was sinus bradycardia to sinus tachycardia with sinus arrhythmia. *The Maximum Heart Rate recorded was 128 bpm, Day :34:20 am, the Minimum Heart Rate recorded was 47 bpm, Day :14:04 am and the Average Heart Rate was 70 bpm. 1. ??289 supraventricular ectopic beats occurred (0.03 % of complexes) mainly as isolated ectopy. 3 couplets and 8 runs of supraventricular ectopy occurred, with the longest run lasting 15 complexes at a rate of 110 BPM, and the fastest run at a rate of 128 BPM. 2. ??0 ventricular ectopic beats occurred. 3. ??No significant bradycardia or pauses occurred. 4. ??Atrial fibrillation/flutter was not detected Manually Triggered events: ??There was 1 manually triggered events. ??During this triggered episode, the patient reported no symptoms and sinus rhythm without rhythm or conduction abnormalities were noted. Other tracings mainly demonstrated sinus rhythm with rare ectopic atrial beats. Conclusion: No sustained arrhythmias. ?? Luis Wylie MD PROCEDURE/MINOR SURG ICAL ORDERABLES * PFT OXYGEN DESATURATION STUDY (04/30/2020 4:15 PM CLERICAL PROOFREADER) Impressions Jasson Mcclure MD - 04/30/2020 4:15 PM CLERICAL PROOFREADER [facility] DEPARTMENT OF PULMONARY, CRITICAL CARE, AND SLEEP MEDICINE OXYGEN TITRATION STUDY Howie Delaney 04/30/2020 INTERPRETATION The test was performed by walking freely for 236 feet at room air. ??The patient was able to complete 2 minutes with lowest SpO2 of 97%. Patient had to stop due to dyspnea. IMPRESSION 1. At the above level of activity the patient's oxygen saturation remained 97 % and above on room air. We can't comment on the need for supplemental oxygen as the test is inadequate. Saba Aldana MD Pulmonary & Critical Care Fellow Division of Pulmonary, Critical Care and Sleep Medicine [facility] Pager: [phone] I have personally reviewed pulmonary function test data and finding. I concur with fellow's note. Jasson Mcclure MD Narrative Jasson Mcclure MD - 04/30/2020 4:15 PM CLERICAL PROOFREADER Saba Aldana MD ? 04/30/2020 ??4:57 PM Jesus Welch MD PFT ORDERABLES * SIX MINUTE WALK (04/30/2020 4:13 PM CLERICAL PROOFREADER) Impressions Jasson Mcclure MD - 04/30/2020 4:13 PM CLERICAL PROOFREADER [facility] DEPARTMENT OF PULMONARY, CRITICAL CARE, AND SLEEP MEDICINE SIX MINUTE WALK TEST Howie Delaney 04/30/2020 Interpretation: The patient walked for 6 minutes on room air and covered total distance of 207 meters. On the Neli scale at baseline, reported dyspnea was 0.5 and fatigue was 2. ??At the end of the study, the Neli reported dyspnea was 3 and fatigue was 5. ??There was dizziness reported and oxygen saturation remained above 97% throughout the test. IMPRESSION: 1. Total 6 minute walk distance is 207 meters, which is below the lower limit of normal of 348 meters for this patient. 2. There is no available study for comparison. Saba Aldana MD Pulmonary & Critical Care Fellow Division of Pulmonary, Critical Care and Sleep Medicine [facility] Pager: [phone] I have personally reviewed pulmonary function test data and finding. I concur with fellow's note. Jasson Mcclure MD Narrative Jasson Mcclure MD - 04/30/2020 4:13 PM CLERICAL PROOFREADER Saba Aldana MD ? 04/30/2020 ??4:57 PM Jesus Welch MD RESPIRATORY THERAPY ORDERABLES * COMPLETE PFT W/WO BRONCHODILATOR (04/30/2020 4:07 PM CLERICAL PROOFREADER) Impressions Jasson Mcclure MD - 04/30/2020 4:07 PM CLERICAL PROOFREADER [facility] DEPARTMENT OF PULMONARY, CRITICAL CARE, AND SLEEP MEDICINE PULMONARY FUNCTION TEST Please see technologist's comments mentioned in the report. INTERPRETATION: SPIROMETRY: ?FVC: decreased ?FEV1: decreased ?FEV1/FVC ratio is normal. BRONCHODILATOR RESPONSE: There is no response to bronchodilators however does not mean the patient wont benefit from bronchodilator therapy FLOW-VOLUME LOOPS: Scooping of the expiratory limbs LUNG VOLUMES: Lung volumes by body plethysmography: TLC is below the lower limit of normal. ERV is low. DLCO: ??not able to perform AIRWAY RESISTANCE: The airway resistance is normal and the specific conductance is decreased ARTERIAL BLOOD GAS ANALYSIS: not performed IMPRESSION: 1. ??Moderate Restrictive Ventilatory Limitation - low ERV is suggestive of extraparenchymal restriction. 2. No bronchodilator response, however this does not preclude the use of bronchodilators 3. There is no previous study available for comparison Saba Aldana MD Pulmonary & Critical Care Fellow Division of Pulmonary, Critical Care and Sleep Medicine [facility] Pager: [phone] I have personally reviewed pulmonary function test data and finding. I concur with fellow's note. Jasson Mcclure MD Narrative Jasson Mcclure MD - 04/30/2020 4:07 PM CLERICAL PROOFREADER Saba Aldana MD ? 04/30/2020 ??4:57 PM Jesus Welch MD RESPIRATORY THERAPY ORDERABLES * COMPLEMENT C3 C4 PANEL (04/22/2020 11:52 AM CLERICAL PROOFREADER) Complement C3 141 82 - 167 mg/dL [facility] INSURANCE BILL Complement C4 30 12 - 38 mg/dL [facility] INSURANCE BILL Blood BLOOD SPECIMEN / Unknown 04/22/2020 11:52 AM CLERICAL PROOFREADER 04/22/2020 Narrative Resulting Agency Comment Lab Testing performed at: [facility] ??Formerly [facility] [phone] Angela Sheikh MD LAB - CHEMISTRY HERNANDEZ [facility] Organization Address City/State/ZIP Co de Phone Number [facility] INSURANCE BILL [address] [place] [address] * LAB RESULTS ORDER (02/20/2020 9:46 AM CDT) Narrative 02/20/2020 9:46 AM CDT Ordered by an unspecified provider. Scanned Document LAB - THERAPEUTIC DR AYALA MONITORING ORDERABLES * XR CHEST 1VW (02/04/2020 5:03 AM CDT) Anatomical Region Laterality Modality Chest Radiographic Maribel ging 02/04/2020 9:18 AM CDT Impressions 02/04/2020 9:52 AM CDT FINDINGS/IMPRESSION: Hazy opacity at the left base may be due to small pleural effusion and/or atelectasis/airspace disease; alternatively, this may be due to large epicardial fat as demonstrated on CT done 11/05/2019. The right lung is clear. There is no right pleural effusion. No pneumothorax. The pulmonary vasculature is borderline congested. Heart size is not well assessed. Mediastinal contours are normal. There is no acute osseous abnormality. IMPRESSION: Hazy opacity in the left lower chest, not definitely due to pleural effusion. Dictated by Freya Chowdhury MD (sr vice president). Dr. EUGENIO Resendiz M.D. have personally reviewed and interpreted this examination/study. This report was electronically signed by EUGENIO SCHWARTZ M.D. ??on 02/04/2020 9:52 AM . Narrative 02/04/2020 9:52 AM CDT EXAMINATION: XR CHEST 1VW HISTORY: The study is ordered to reevaluate left pleural effusion COMPARISON: Portable chest x-ray dated 02/01/2020 Procedure Note Eugenio Schwartz MD - 02/04/2020 EXAMINATION: XR CHEST 1VW HISTORY: The study is ordered to reevaluate left pleural effusion COMPARISON: Portable chest x-ray dated 02/01/2020 FINDINGS/IMPRESSION: Hazy opacity at the left base may be due to small pleural effusionand/or atelectasis/airspace disease; alternatively, this may be due to large epicardial fat as demonstrated on CT done 11/05/2019. The right lung is clear. There is no right pleural effusion. No pneumothorax. Thepulmonary vasculature is borderline congested. Heart size is not well assessed. Mediastinal contours are normal. There is no acute osseous abnormality. IMPRESSION: Hazy opacity in the left lower chest, not definitely due to pleural effusion. Dictated by Freya Chowdhury MD (sr vice president). Dr. EUGENIO Resendiz M.D. have personally reviewed and interpreted this examination/study. This report was electronically signed by EUGENIO SCHWARTZ M.D. on 02/04/2020 9:52 AM . Raul Gonzalez MD DIAGNOSTIC IMAGING O RDERABLES * PROTEIN URINE RANDOM QUANTITATIVE (02/02/2020 8:47 AM CDT) Only the most recent of2 resultswithin the time period is included. Protein Urine 27 Not Established mg/dL 02/02/2020 9:35 AM CDT [facility] Urine URINE SPECIMEN OBTAINED BY CLEAN CATCH PROCEDURE / Unknown Collection / Unknown 02/02/2020 8:47 AM CDT 02/02/2020 9:07 AM CDT Raul Gonzalez MD LAB - URINE CHEMISTR Y ORDERABLES Performing Organization Address City/[facility]/ZIP Co de Phone Number [address] [address], [facility] [place] [phone] * CREATININE URINE RANDOM (02/02/2020 8:47 AM CDT) Only the most recent of2 resultswithin the time period is included. Creatinine Urine 45 Not Established mg/dL 02/02/2020 9:35 AM CDT [facility] Comment:Result obtained by césar hardy. Urine URINE SPECIMEN OBTAINED BY CLEAN CATCH PROCEDURE / Unknown Collection / Unknown 02/02/2020 8:47 AM CDT 02/02/2020 9:07 AM CDT Raul Gonzalez MD LAB - URINE CHEMISTR Y ORDERABLES Performing Organization Address [facility] Co de Phone Number [address] [address], [facility] [place] [phone] * SARS-COV-2 (COVID-19) IN HOUSE (02/02/2020 1:16 AM CDT) Only the most recent of2 resultswithin the time period is included. COVID-19 PCR Not detected Not detected, Invalid 02/03/2020 5:58 AM CDT [facility] Microbiology SPECIMEN FROM NASOPHARYNGEAL STRUCTURE / Unknown Collection / Unknown 02/02/2020 1:16 AM CDT 02/02/2020 1:35 AM CDT Narrative [facility] - 02/03/2020 5:58 AM CDT This Real Time RT-PCR assay was developed and its performance characteristics determined by [facility]. This test has been authorized by the Food and Drug administration (FDA)under an Emergency Use Authorization (EUA). This test has been validated in accordance with the FDA's guidance document Policy for Diagnostic Testing in Laboratories Certified to perform High Complexity Testing under CLIA prior to Emergency Use Authorization for Coronavirus Disease-2019 during the Public Health Emergency issued on July 21, 2019. FDA independent review of this validation is pending. This test is only authorized for the duration of time the declaration that circumstances exist justifying the authorization of emergency use of in vitro diagnostic tests for detection of SARS-CoV-2 virus and/or diagnosis of COVID-19 infection under section 564(b)(1) of the Act, 21 U.S.C 360bbb-3 (b)(1), unless the authorization is terminated or revoked sooner. Anusha Hinds MD LAB - MICROBIOLOGY ORDERABLES [facility] [address] [place] [address], [facility] [place] [phone] * CARDIAC PROCEDURE ORDER (01/07/2020 4:27 PM CDT) Only the most recent of5 resultswithin the time period is included. Narrative 01/07/2020 4:27 PM CDT Ordered by an unspecified provider. Scanned Document CARDIAC SERVICES ORD ERABLES * US RETROPERITONEAL COMPLETE (01/03/2020 3:57 PM CDT) Anatomical Region Laterality Modality Abdomen Ultrasound 01/03/2020 3:46 PM CDT Impressions 01/03/2020 4:19 PM CDT IMPRESSION: Simple appearing right renal cyst. Normal background renal echotexture bilaterally. No evidence of hydronephrosis. Dictated by Dash Barnes MD (Resident). I, Dr. ASHLEY VANEGAS have personally reviewed and interpreted this examination/study. This report was electronically signed by ASHLEY VANEGAS ??on 01/03/2020 4:19 PM . Narrative 01/03/2020 4:19 PM CDT EXAMINATION: Complete retroperitoneal sonogram HISTORY: N18.3: Chronic kidney disease (CKD), stage III (moderate) N17.9: ERIC (acute kidney injury) COMPARISON: Report on abdominal CT on 07/27/2017 FINDINGS: Right kidney: 14 x 6.5 x 5.7 cm Left kidney: 14.5 x 6.2 x 5 cm Renal parenchymal echogenicity is normal. There is a simple cyst measuring 1.8 cm in the upper pole of the right kidney. There is no evidence of a solid renal mass, renal calculi, or hydronephrosis. Blood flow is seen within the renal arteries and veins. The bladder is partially distended. 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 Procedure Note Ashley Vanegas MD - 01/03/2020 EXAMINATION: Complete retroperitoneal sonogram HISTORY: N18.3: Chronic kidney disease (CKD), stage III (moderate) N17.9: ERIC (acute kidney injury) COMPARISON: Report on abdominal CT on 07/27/2017 FINDINGS: Right kidney: 14 x 6.5 x 5.7 cm Left kidney: 14.5 x 6.2 x 5 cm Renal parenchymal echogenicity is normal. There is a simple cystmeasuring 1.8 cm in the upper pole of the right kidney. There is no evidence of a solid renal mass, renal calculi, or hydronephrosis. Blood flow is seen within the renal arteries and veins. The bladder is partially distended. There is a cystic-appearing rounded structure anterior and to the rightof the bladder, likely representing reservoir of the artificial urinary sphincter. IMPRESSION: Simple appearing right renal cyst. Normal background renal echotexture bilaterally. No evidence of hydronephrosis. Dictated by Dash Barnes MD (Resident). I, Dr. ASHLEY VANEGAS have personally reviewed and interpreted this examination/study. This report was electronically signed by ASHLEY VANEGAS on 01/03/2020 4:19 PM . Gerardo Oneal MD ORDER MONTEZ * PFT (12/27/2019 12:47 PM CDT) Narrative 12/27/2019 12:47 PM CDT Ordered by an unspecified provider. Scanned Document SCANNING ONLY * (ABNORMAL) URINALYSIS REFLEX TO MICROSCOPIC NO CULTURE (12/26/2019 3:07 PM CDT) Only the most recent of3 resultswithin the time period is included. Color UA Yellow Straw, Yellow, Colorless 12/26/2019 4:17 PM CDT [facility] Clarity UA Clear Clear, Slt Cloudy 12/26/2019 4:17 PM [facility] Specific [place] UA 1.011 1.005 - 1.030 12/26/2019 4:17 PM [facility] pH UA 5.0 5.0 - 8.0 pH 12/26/2019 4:17 PM [facility] Protein UA 1+(A) Negative mg/dL 12/26/2019 4:17 PM [facility] Glucose UA Negative Negative mg/dL 12/26/2019 4:17 PM [facility] Ketone UA Negative Negative mg/dL 12/26/2019 4:17 PM [facility] Bilirubin UA Negative Negative mg/dL 12/26/2019 4:17 PM [facility] Blood UA Negative Negative 12/26/2019 4:17 PM [facility] Nitrite UA Negative Negative 12/26/2019 4:17 PM [facility] Leukocyte Esterase Negative Negative 12/26/2019 4:17 PM [facility] Urobilinogen UA Negative Negative mg/dL 12/26/2019 4:17 PM [facility] RBC UA 0-2 None Seen, 0-2, 3-5 /HPF 12/26/2019 4:17 PM [facility] WBC UA 6-10(A) None Seen, 0-5 /HPF 12/26/2019 4:17 PM [facility] Bacteria UA Trace None, Trace /HPF 12/26/2019 4:17 PM [facility] Squamous Epithelial Cells UA 11-20(A) None Seen, 0-2 /HPF 12/26/2019 4:17 PM [facility] Urine URINE SPECIMEN OBTAINED BY CLEAN CATCH PROCEDURE / Unknown Collection / Unknown 12/26/2019 3:07 PM CDT 12/26/2019 3:54 PM CDT [facility] - 12/26/2019 4:17 PM CDT Gerardo Oneal MD LAB - UR INALYSIS ORDERABLES [address] [address], [facility] [place] [phone] * CCL CATH RIGHT HEART (12/20/2019 9:27 AM CDT) Anatomical Region Laterality Modality Chest X-Ray Angiograph y Narrative 12/24/2019 12:12 PM CDT [facility] Cardiac Catheterization Procedure Note Patient: Howie Delaney Age: [age] year old Date of : 1965 Procedure Date: 12/20/19 FELLOW / TOOL GRINDER: Ernst Babin MD, Hubert Avila MD ATTENDING PHYSICIAN: Jazmine Lee MD PREVIOUS STRESS STUDIES WITHIN 6 MONTHS: Lexiscan MPI 05/2019 normal DIAGNOSTIC APPROPRIATENESS CRITERIA: Heart failure with preserved ejection fraction with worsening angina and exertional dyspnea HISTORY: Mr. Delaney is a 54 yo gentleman with a known medical history of heart failure with preserved EF, Hypertension, suspected obesity hypoventilation syndrome vs. MIRELLA and family history of pulmonary hypertension (mother) is here in our??Cardiac Catheterization lab??in view of his ongoing anginal symptoms. ACCESS SITE(S): ?? right radial artery and right antecubital vein PROCEDURAL OVERVIEW: After obtaining informed consent and positioning the patient on the catheterization table, a timeout was performed to confirm the patient? s name, date of , and procedure. ??Sedation was initiated and the patient was prepped and draped using standard sterile technique. ?? Lidocaine was used for local anesthesia over the access site, after which the vessel was accessed and a sheath was placed using the modified Seldinger technique. ??Access was uncomplicated. Following catheters and wires were utilized to obtain: hemodynamics: 5F Blythe Marychuy catheter; selective coronary angiography: 6F TIG catheter, short InQwire wire (150cm). At the conclusion of the procedure, hemostasis was achieved using manual compression and a radial compression device after removal of all catheters, wires, and sheaths. ?? SEDATION: Moderate sedation on this adult patient was ordered, administered intravenously in their presence, and monitored by the procedure nurse as an independent trained observer who was present throughout the procedure. The following parameters were monitored: oxygen saturation, heart rate, blood pressure, and response to care. Intra-service sedation start time was 0837 am and end time was 0920 am during which the attending was present. Total physician intra-service sedation time was 45 minutes. For details on pre-moderate sedation and post-moderate sedation patient evaluation, please review the evaluation forms in Epic. For details on monitored clinical parameters during the intra-service sedation time, please review the procedure nurse documentation in [facility]. Total sedation administered as follows: 100 mcg IV fentanyl, 0.5 mg IV midazolam. 6 cc ml of 1% lidocaine was administered subcutaneously at the access site. COMPLICATIONS: None HEMODYNAMIC FINDINGS: ?? Pressures: LV: ??116/24 mmHg LVEDP: ??24 mmHg Aorta: ??100/64 mmHg with MAP of 80 mmHg RA: 15 mmHg RV: 34/14 mmHg RVEDP: ??14 mmHg PA: 36/23 mmHg Mean PA: ??30 mmHg PCWP: ??unable to wedge further. ? Hb: ??11.5 g/dl ? O2 saturation: RA O2 saturation: ??66 on room air PA O2 sauration: ??66 on room air Arterial O2 saturation: ??90 on room air ? Cardiac output: ??8.98 ??L/min Cardiac index: ??3.12 ??L/min/m2 ? Transpulmonary gradient: ??6 mmHg Pulmonary vascular resistance: ??0.67 Lockett units ANGIOGRAPHY: ?? i. Left main: Patent with no angiographic disease. ii. LAD: Patent LAD and its OM branches with no angiographic disease. Wraps around the apex. iii. LCx: Patent LCx and marginal branches. iv. RCA: Non-dominant RCA that is a patent vessel and provides RPDA. DOMINANCE: Left CONTRAST: 15 ml ?? RADIATION DOSE: Cumulative AK: 551.53 mGy Cumulative DAP: 33487 mGycm2 DIAGNOSTIC INTERPRETATIONS: 1) Elevated filling pressure with moderate pulmonary venous hypertension (RA 15 mmHg, PAD 30 mmHg, LVEDP 24 mmHg). 2) Normal coronaries RECOMMENDATIONS AFTER DIAGNOSTIC CATHETERIZATION: ?? Medical management for worsening dyspnea to achieve euvolemic status. Hubert Avila MD? Cardiovascular Medicine Fellow [facility] I was present for the entirety of the described procedure. Jazmine Booth MD Tylor Salazar MD CARDIAC ACADEMIC INTERN RAD IANT * MAGNESIUM BLOOD (11/06/2019 5:59 AM CDT) Only the most recent of2 resultswithin the time period is included. Magnesium 2.2 1.6 - 2.6 mg/dL 11/06/2019 6:44 AM CDT [facility] Blood BLOOD SPECIMEN / Unknown Lab Venipuncture / Unknown 11/06/2019 5:59 AM CDT 11/06/2019 6:19 AM CDT Gemma Heart MD LAB - CHEMISTRY OR DERABLES [address] [address] [phone] * CT HEAD WO CONTRAST (11/05/2019 10:22 PM CDT) Anatomical Region Laterality Modality Head Computed Tomogra phy 11/06/2019 9:13 AM CDT Impressions 11/06/2019 11:09 AM CDT IMPRESSION: No acute intracranial hemorrhage, midline shift, or significant mass effect. Dictated by Veronique Sorto MD (sr vice president). I, Dr. FREDDY MAYO have personally reviewed and interpreted this examination/study. This report was electronically signed by FREDDY MAYO ??on 11/06/2019 11:09 AM . Narrative 11/06/2019 11:09 AM CDT EXAMINATION: CT OF THE HEAD WITHOUT CONTRAST DATE: 11/05/2019 10:22 PM HISTORY: R55: Near syncope TECHNIQUE: CT of the head was performed without contrast according to standard protocol. COMPARISON: No prior study is available for comparison at the time of this dictation. FINDINGS: No acute intracranial hemorrhage or extra-axial fluid collections are identified. ??The brain volume is normal. The ventricles are of normal size, shape, and morphology. The basal cisterns are patent. No mass effect or midline shift is seen. The payton-white matter differentiation is normal. There are no visible white matter changes. No acute calvarial fracture is identified. The orbits appear normal. The paranasal sinuses are clear except for partial opacification of some of bilateral ethmoid air cells. The mastoid air cells are clear. No soft tissue abnormality is identified. Procedure Note Freddy Mayo MD - 11/06/2019 EXAMINATION: CT OF THE HEAD WITHOUT CONTRAST DATE: 11/05/2019 10:22 PM HISTORY: R55: Near syncope TECHNIQUE: CT of the head was performed without contrast according to standard protocol. COMPARISON: No prior study is available for comparison at the time ofthis dictation. FINDINGS: No acute intracranial hemorrhage or extra-axial fluid collections are identified. The brain volume is normal. The ventricles are of normal size, shape, and morphology. The basal cisterns are patent. No masseffect or midline shift is seen. The payton-white matter differentiation isnormal. There are no visible white matter changes. No acute calvarial fractureis identified. The orbits appear normal. The paranasal sinuses are clear except for partial opacification of some of bilateral ethmoid air cells. The mastoid air cells are clear. No soft tissue abnormality isidentified. IMPRESSION: No acute intracranial hemorrhage, midline shift, or significant mass effect. Dictated by Veronique Sorto MD (sr vice president). Dr. FREDDY Resendiz have personally reviewed and interpreted this examination/study. This report was electronically signed by FREDDY MAYO on 11/06/201911:09 AM . Kary Sheikh MD CT ORDERABLES * CT ANGIO CHEST PULM EMBOLISM (11/05/2019 1:19 PM CDT) Only the most recent of2 resultswithin the time period is included. Anatomical Region Laterality Modality Chest Computed Tomogra phy 11/05/2019 1:09 PM CDT Impressions 11/05/2019 1:45 PM CDT IMPRESSION: 1. No evidence of central pulmonary embolism. Evaluation of segmental and subsegmental pulmonary arteries is degraded by suboptimal contrast opacification. 2. Mild air trapping in the bilateral lungs may represent sequelae of reactive airways disease such as asthma. 3. Pulmonary hypertension. Dictated by Lj Womack MD (sr vice president). Dr. ISELA Resendiz M.D. have personally reviewed and interpreted this examination/study. This report was electronically signed by ISELA CHRISTOPHER M.D. ??on 11/05/2019 1:45 PM . Narrative 11/05/2019 1:45 PM CDT EXAMINATION: Computed tomography (CT) of the chest with contrast HISTORY: R55: Near syncope TECHNIQUE: CT of the chest was performed following the uneventful administration of 100 mL of Isovue 370 intravenous contrast according to a pulmonary embolism protocol. COMPARISON: 06/11/2019 FINDINGS: Evaluation for segmental and subsegmental pulmonary embolism is degraded secondary to suboptimal contrast opacification of the distal pulmonary arteries. Otherwise there are no central filling defects in the pulmonary arteries to suggest central pulmonary embolism. There is a left-sided aortic arch. The main pulmonary artery is dilated, measuring 4.6 cm in diameter. The aorta is normal in course and caliber. Scattered regions of linear atelectasis are seen. There are scattered regions of increased lung parenchymal attenuation suggestive of air trapping. No pleural effusion or focal pleural thickening is identified. There is no evidence of pneumothorax. No suspicious pulmonary nodule is identified. The trachea is patent and midline. Layering debris is seen in the trachea. The heart size is normal. No pericardial effusion is present. No mediastinal, hilar, supraclavicular, or axillary lymphadenopathy is seen. The visible portions of the upper abdomen are unremarkable. Bone windows demonstrate no suspicious lytic or blastic lesions. The visible osseous structures are intact. Mild degenerative changes are seen in the spine. Procedure Note Becky Christopher MD - 11/05/2019 EXAMINATION: Computed tomography (CT) of the chest with contrast HISTORY: R55: Near syncope TECHNIQUE: CT of the chest was performed following the uneventful administration of 100 mL of Isovue 370 intravenous contrast according toa pulmonary embolism protocol. COMPARISON: 06/11/2019 FINDINGS: Evaluation for segmental and subsegmental pulmonary embolism is degraded secondary to suboptimal contrast opacification of the distal pulmonary arteries. Otherwise there are no central filling defects in thepulmonary arteries to suggest central pulmonary embolism. There is a left-sided aortic arch. The main pulmonary artery is dilated, measuring 4.6 cm in diameter. The aorta is normal in course and caliber. Scattered regions of linear atelectasis are seen. There are scattered regions of increased lung parenchymal attenuation suggestive of air trapping. No pleural effusion or focal pleural thickening is identified. There is no evidence of pneumothorax. No suspicious pulmonary nodule is identified. The trachea is patent and midline. Layering debris is seenin the trachea. The heart size is normal. No pericardial effusion is present. No mediastinal, hilar, supraclavicular, or axillary lymphadenopathy isseen. The visible portions of the upper abdomen are unremarkable. Bone windows demonstrate no suspicious lytic or blastic lesions. The visible osseous structures are intact. Mild degenerative changes areseen in the spine. IMPRESSION: 1. No evidence of central pulmonary embolism. Evaluation of segmentaland subsegmental pulmonary arteries is degraded by suboptimal contrast opacification. 2. Mild air trapping in the bilateral lungs may represent sequelae of reactive airways disease such as asthma. 3. Pulmonary hypertension. Dictated by Lj Womack MD (sr vice president). I, Dr. ISELA CHRISTOPHER M.D. have personally reviewed and interpretedthis examination/study. This report was electronically signed by ISELA CHRISTOPHER M.D. on 11/05/2019 1:45 PM . Gemma Heart MD CT ORDERABLES * CULTURE URINE (11/04/2019 12:55 AM CDT) Culture Urine No growth (<100 CFU/mL) JAIME 11/05/2019 7:24 AM CDT [facility] Urine URINE SPECIMEN OBTAINED BY CLEAN CATCH PROCEDURE / Unknown Collection / Unknown 11/04/2019 12:55 AM CDT 11/04/2019 1:00 AM CDT Kary Sheikh MD LAB - MICROBIOLOGY O [place] Performing Organization Address [facility] Co de Phone Number [facility] [address] [place] [address], [facility] [place] [phone] * CULTURE BLOOD (11/03/2019 11:50 PM CDT) Only the most recent of2 resultswithin the time period is included. Culture No growth day 5 JAIME 11/09/2019 5:30 AM CDT [facility] Blood PERIPHERAL BLOOD / Unknown Lab Venipuncture / Unknown 11/03/2019 11:50 PM CDT 11/04/2019 12:00 AM CDT Kary Sheikh MD LAB - MICROBIOLOGY O AL [facility] [address] [place] [place] [address], [facility] [place] [phone] * PHOSPHORUS BLOOD (11/03/2019 11:37 PM CDT) Phosphorus 3.9 2.3 - 4.7 mg/dL 11/04/2019 12:07 AM CDT [facility] Blood BLOOD SPECIMEN / Unknown Lab Venipuncture / Unknown 11/03/2019 11:37 PM CDT 11/03/2019 11:45 PM CDT Kary Sheikh MD LAB - CHEMISTRY [facility] [address] [address], [facility] [place] [phone] * LACTIC ACID BLOOD (11/03/2019 11:37 PM CDT) Lactic Acid-Stat 0.8 0.5 - 2.2 mmol/L 11/04/2019 12:03 AM CDT [facility] Blood BLOOD SPECIMEN / Unknown Lab Venipuncture / Unknown 11/03/2019 11:37 PM CDT 11/03/2019 11:45 PM CDT Kary Sheikh MD LAB - CHEMISTRY [facility] [address] [address], [facility] [place] [phone] * CK BLOOD (11/03/2019 11:37 PM CDT) CK Total 94 30 - 200 Units/L 11/04/2019 12:07 AM CDT [facility] Blood BLOOD SPECIMEN / Unknown Lab Venipuncture / Unknown 11/03/2019 11:37 PM CDT 11/03/2019 11:45 PM CDT Kary Sheikh MD LAB - CHEMISTRY [facility] [address] [address] [phone] * ALDOSTERONE BLOOD (10/30/2019 1:49 PM CDT) Aldosterone 2.1 0.0 - 30.0 ng/dL [facility] Comment: This test was developed and its performance characteristics determined by [facility]. It has not been cleared or approved by the Food and Drug Administration. Blood BLOOD SPECIMEN / Unknown 10/30/2019 1:49 PM CDT 10/30/2019 Narrative Resulting Agency Comment Lab Testing performed at: [address] ??[facility] [phone] Gerardo Oneal MD LAB - CH EMISTRY ORDERABLES [facility] INSURANCE BILL [address] [place] [address] * PROCALCITONIN LEVEL (06/12/2019 3:15 AM CLERICAL PROOFREADER) PROCALCITONIN 0.09 <=0.10 ng/mL 06/12/2019 4:38 AM CLERICAL PROOFREADER [facility] Blood BLOOD SPECIMEN / Unknown Lab Venipuncture / Unknown 06/12/2019 3:15 AM CLERICAL PROOFREADER 06/12/2019 3:26 AM CLERICAL PROOFREADER Narrative [facility] - 06/12/2019 4:38 AM CLERICAL PROOFREADER The change in procalcitonin (PCT) concentration over time provides support in decision making on antibiotic discontinuation for suspected or confirmed septic patients. Follow-up samples should be tested once every 1-2 days based upon physician discretion taking into account the patient? s evolution and progress. Consider discontinuation of ??antibiotic therapy ??if the PCT current ??is <= 0.5 ng/mL or if the delta PCT is > 80%. ??Duration of antibiotics should not be determined solely on PCT; established guidelines for the indication should be followed. ? PCT peak: ??Highest observed PCT concentration ? PCT current: Most recent PCT concentration ? Calculate delta PCT using the following equation: ?Delta PCT ??= ?? PCT Peak ? PCT current ??X 100% ? PCT Peak The Change in Procalcitonin Calculator is available at [email or web address] ?? If clinical picture has not improved and PCT remains high, reevaluate and consider treatment failure or other causes. Steve Smith MD LAB - CHEMISTRY [facility] [address] [phone] * XR ABDOMEN KUB (06/11/2019 11:52 PM CLERICAL PROOFREADER) Anatomical Region Laterality Modality Abdomen Radiographic Maribel ging 06/12/2019 9:51 AM CLERICAL PROOFREADER Impressions 06/12/2019 9:55 AM CLERICAL PROOFREADER IMPRESSION: Nonobstructive bowel gas pattern. Dictated by Flaquito Hernandez MD (sr vice president). I, Dr. HARRISON SANDHU have personally reviewed and interpreted this examination/study. This report was electronically signed by HARRISON SANDHU ??on 06/12/2019 9:55 AM . Narrative 06/12/2019 9:55 AM CLERICAL PROOFREADER EXAMINATION: XR ABDOMEN KUB HISTORY: Rule out obstruction COMPARISON: No prior study is available for comparison. FINDINGS: There is no dilatation of small or large bowel. Gas is present within the rectum. No pathological calcifications are seen. Free air cannot be excluded on this supine exam. The visible osseous structures are intact. Procedure Note Harrison Sandhu, DO - 06/12/2019 EXAMINATION: XR ABDOMEN KUB HISTORY: Rule out obstruction COMPARISON: No prior study is available for comparison. FINDINGS: There is no dilatation of small or large bowel. Gas is present withinthe rectum. No pathological calcifications are seen. Free air cannot be excluded on this supine exam. The visible osseous structures are intact. IMPRESSION: Nonobstructive bowel gas pattern. Dictated by Flaquito Hernandez MD (sr vice president). I, Dr. HARRISON SANDHU have personally reviewed and interpreted this examination/study. This report was electronically signed by HARRISON SANDHU on 06/12/2019 9:55 AM . Fabián Lo MD DIAGNOSTIC IMAGI NG ORDERABLES * HIV-1 HIV-2 ANTIGEN/ANTIBODY (06/11/2019 10:29 PM CLERICAL PROOFREADER) Pathologist [facility] HIV Antigen/Antibod y 1 & 2 Non-reacti ve Non-react almaz 06/11/2019 11:16 PM CLERICAL PROOFREADER [facility] Comment: Neither HIV-1 p24 Antigen nor HIV-1/HIV-2 Antibodies are detected. ? Blood BLOOD SPECIMEN / Unknown Venipuncture / Unknown 06/11/2019 10:29 PM CLERICAL PROOFREADER 06/11/2019 10:32 PM CLERICAL PROOFREADER Yonas Lao MD LAB - HEMATOLOGY ORD ANILA Performing Organization Address [facility]/ZIP Co de Phone Number [address] [phone] * HEPATITIS C AB SCREEN RFLX NAAT QUANT (06/11/2019 10:29 PM CLERICAL PROOFREADER) Pathologist [facility] Hepatitis C Antibody Non-react almaz Non-reac tive 06/11/2019 11:16 PM CLERICAL PROOFREADER [facility] Comment: Hepatitis C Antibody screen indicates no serologic evidence of past or current infection with Hepatitis C Virus. Patients with unexplained liver disease who are immunocompromised or suspected of having acute Hepatitis C infection may benefit from Nucleic Acid Test (EARL) for Hepatitis C Viral RNA to confirm Hepatitis C status. Blood BLOOD SPECIMEN / Unknown Venipuncture / Unknown 06/11/2019 10:29 PM CLERICAL PROOFREADER 06/11/2019 10:32 PM CLERICAL PROOFREADER Yonas Lao MD LAB - CHEMISTRY [facility] Performing Organization Address City/[facility]/ZIP Co de Phone Number [place] [phone] [place] [address] * LIPASE BLOOD (06/11/2019 10:29 PM CLERICAL PROOFREADER) Lipase 12 8 - 78 Units/L 06/11/2019 10:53 PM CLERICAL PROOFREADER [facility] Blood BLOOD SPECIMEN / Unknown Venipuncture / Unknown 06/11/2019 10:29 PM CLERICAL PROOFREADER 06/11/2019 10:32 PM CLERICAL PROOFREADER Fabián Lo MD LAB - CHEMISTRY ORDERABLES [place] [id number] [place] [address], [facility] [place] [phone] * NM MYOCARD PERF STRESS ONLY (06/11/2019 5:03 PM CLERICAL PROOFREADER) Anatomical Region Laterality Modality Chest Nuclear Medicine 06/11/2019 5:02 PM CLERICAL PROOFREADER Impressions 06/11/2019 5:08 PM CLERICAL PROOFREADER Impression: 1. No evidence of myocardial infarction or stress-induced ischemia. 2. Normal left ventricular wall motion and thickening. 3. The calculated left ventricular ejection fraction of 71%. This report was electronically signed by MARGE BOLAÑOS D.O. ??on 06/11/2019 5:08 PM . Narrative 06/11/2019 5:08 PM CLERICAL PROOFREADER Pharmacologic stress SPECT/CT myocardial imaging with gating- 1 day protocol History: 53-year-old male with chest pain. Procedure: Pharmacologic stress testing was performed with 0.4 mg of Regadenoson administered IV in the right hand over 10 seconds. No low-level exercise was performed in conjunction with the vasodilator infusion. The patient experienced no chest pain. Preliminary stress ECG demonstrated no evidence of ischemic changes. After approximately 10 seconds, the patient was injected with 26.1 mCi of Tc-99m Myoview IV in the right hand. Gated SPECT/CT myocardial perfusion imaging was performed 30 minutes post-injection. Patient's height 185 cm; weight 345 lb. Low-dose noncontrast CT of the region of the heart was performed for attenuation correction only. Rest images were not needed since the stress images were normal. The heart rate at rest was 70 at baseline and increased to 98 beats per minute during the vasodilator infusion. The BP was 122/55 at rest and 127/66 after the stress procedure. A separate ECG report will be read by Cardiology. Findings: The image quality is technically adequate despite adjacent bowel activity and reduced counts. In the stress and rest SPECT/CT images, the left ventricle is normal in size. The stress SPECT/CT images show a normal pattern of myocardial perfusion. Gated SPECT/CT images show normal myocardial thickening and normal wall motion. The calculated left ventricular ejection fraction is 71%. Procedure Note Marge Bolaños, DO - 06/11/2019 Pharmacologic stress SPECT/CT myocardial imaging with gating- 1 day protocol History: 53-year-old male with chest pain. Procedure: Pharmacologic stress testing was performed with 0.4 mg of Regadenoson administered IV in the right hand over 10 seconds. No low-level exercise was performed in conjunction with the vasodilator infusion. The patient experienced no chest pain. Preliminary stress ECG demonstrated noevidence of ischemic changes. After approximately 10 seconds, the patient was injected with 26.1 mCi of Tc-99m Myoview IV in the right hand. Gated SPECT/CT myocardial perfusion imaging was performed 30 minutes post-injection. Patient's height 185 cm; weight 345 lb. Low-dose noncontrast CT of the region of the heart was performed for attenuation correction only. Rest images were not needed since the stress imageswere normal. The heart rate at rest was 70 at baseline and increased to 98 beats per minute during the vasodilator infusion. The BP was 122/55 at rest and 127/66 after the stress procedure. A separate ECG report will be read by Cardiology. Findings: The image quality is technically adequate despite adjacent bowelactivity and reduced counts. In the stress and rest SPECT/CT images, the left ventricle is normal in size. The stress SPECT/CT images show a normal pattern of myocardial perfusion. Gated SPECT/CT images show normal myocardial thickening and normal wall motion. The calculated left ventricular ejection fraction is 71%. Impression: 1. No evidence of myocardial infarction or stress-induced ischemia. 2. Normal left ventricular wall motion and thickening. 3. The calculated left ventricular ejection fraction of 71%. This report was electronically signed by MARGE BOLAÑOS D.O. on06/11/2019 5:08 PM . Tobias VIRGEN ORDERABLES * ECHO COMPLETE (06/11/2019 3:06 PM CLERICAL PROOFREADER) Anatomical Region Laterality Modality Echo 06/11/2019 2:23 PM CLERICAL PROOFREADER Narrative Procedure Note Kimberly Rodriguez MD - 06/11/2019 Tobias Pagan MD ECHOCARDIOGRAPHY RAD IANT * (ABNORMAL) BLOOD GASES CRISTY (06/11/2019 2:15 AM CLERICAL PROOFREADER) pH Mixed Venous 7.35 7.30 - 7.40 06/11/2019 2:25 AM [facility] pCO2 Mixed Venous 54(H) 40 - 46 mmHg 06/11/2019 2:25 AM [facility] pO2 Mixed Venous 32(L) 35 - 42 mmHg 06/11/2019 2:25 AM [facility] HCO3 Mixed Venous 29.0(H) 22.0 - 26.0 mmol/L 06/11/2019 2:25 AM [facility] TCO2 Mixed Venous 30.7(H) 25.0 - 29.0 mmol/L 06/11/2019 2:25 AM [facility] Base Excess Venous 2.4(H) -2.0 - 2.0 mmol/L 06/11/2019 2:25 AM [facility] Hemoglobin Mixed Venous 12.5(L) 13.5 - 17.5 g/dL 06/11/2019 2:25 AM [facility] Oxyhemoglobin Mixed Venous 63.3(L) 66.0 - 77.0 % 06/11/2019 2:25 AM [facility] Carboxyhemoglobin Venous 0.2 0.0 - 3.0 % 06/11/2019 2:25 AM [facility] Methemoglobin 0.3 0.0 - 2.0 % 06/11/2019 2:25 AM [facility] FI O2 Mixed Venous 27.0 % 2019 2:25 AM [facility] Blood BLOOD SPECIMEN / Unknown Venipuncture / Unknown 06/11/2019 2:15 AM CLERICAL PROOFREADER 06/11/2019 2:21 AM CLERICAL PROOFREADER Mery Meza MD LAB - BLOOD GASES OR DERABLES [facility] [address] [place] [address], [facility] [place] [phone] * (ABNORMAL) D-DIMER (06/11/2019 12:49 AM CLERICAL PROOFREADER) D-Dimer Quantitative 1.21(H) <=0.50 mcg/mL FEU 06/11/2019 1:07 AM CLERICAL PROOFREADER [facility] Comment: In the absence of clinical symptoms, a value less than or equal to 0.5 mcg/mL FEU significantly decreases the probability of PE/DVT (negative predictive value >95%). 1 mcg/mL FEU = 1 Fibrinogen Equivalent Unit (approximates 0.5 mcg/ml of D- Dimer). ?ISTH DIAGNOSTIC SCORING SYSTEM FOR DIC ?Score ?0 ? 1 ? 2 ?3 ?? Platelet Count(x10^3/uL) ?> 100 ?? < 100 ?? < 50 ?N/A PT Prolongation above ? upper limit of normal ?0-3 ? 3-6 ? > 6 ?N/A range (seconds) ? Fibrinogen (mg/dL) ?> 100 ?? < 100 ?N/A ?N/A D-Dimer (mcg/mL FEU) ? < 0.50 ?N/A ? 0.50-5.0 ??> 5 Calculate Cumulative Score: > or = 5 :compatible with overt DIC ? < 5 :suggestive for non-overt DIC N/A = Non applicable Reference: Br. J. Haematol. 145:24-33,2009. Blood BLOOD SPECIMEN / Unknown Venipuncture / Unknown 06/11/2019 12:49 AM CLERICAL PROOFREADER 06/11/2019 12:51 AM CLERICAL PROOFREADER Vincent Harman MD LAB - COAGULATION OR DERABLES [address] [phone] * XR CHEST 2VW (06/10/2019 11:44 PM CLERICAL PROOFREADER) Anatomical Region Laterality Modality Chest Radiographic Maribel ging 06/11/2019 12:1 1 AM CLERICAL PROOFREADER Impressions 06/11/2019 7:38 AM CLERICAL PROOFREADER IMPRESSION: Left lower lobe opacity may represent atelectasis and/or airspace disease. Small left pleural effusion may contribute. Dictated by Adelaide Wiggins MD (sr vice president). Dr. HARRISON Resendiz have personally reviewed and interpreted this examination/study. This report was electronically signed by HARRISON SANDHU ??on 06/11/2019 7:38 AM . Narrative 06/11/2019 7:38 AM CLERICAL PROOFREADER EXAMINATION: XR CHEST 2VW HISTORY: R07.9: Chest pain, unspecified type COMPARISON: ??No prior study is available for comparison at the time of this dictation. FINDINGS: A left lower lobe opacity is identified, likely represent atelectasis and/or airspace disease. Small left pleural effusion may contribute. Right infrahilar opacity is identified. ??There is no pneumothorax. The cardiomediastinal silhouette is normal. The visible bony thorax is intact. Procedure Note Harrison Sandhu DO - 06/11/2019 EXAMINATION: XR CHEST 2VW HISTORY: R07.9: Chest pain, unspecified type COMPARISON: No prior study is available for comparison at the time of this dictation. FINDINGS: A left lower lobe opacity is identified, likely represent atelectasis and/or airspace disease. Small left pleural effusion may contribute.Right infrahilar opacity is identified. There is no pneumothorax. The cardiomediastinal silhouette is normal. The visible bony thorax isintact. IMPRESSION: Left lower lobe opacity may represent atelectasis and/or airspacedisease. Small left pleural effusion may contribute. Dictated by Adelaide Wiggins MD (sr vice president). Dr. HARRISON Resendiz have personally reviewed and interpreted this examination/study. This report was electronically signed by HARRISON SANDHU on 06/11/2019 7:38 AM . Vincent Harman MD DIAGNOSTIC IMAGING O RDERABLES * (ABNORMAL) DIFFERENTIAL MANUAL (06/10/2019 10:57 PM CLERICAL PROOFREADER) WBC (corrected for NRBC) 15.2 10? 3 /uL 06/10/2019 11:46 PM [facility] Total Cell Count 100 06/10/2019 11:46 PM [facility] Neutrophils Absolute Manual 8.82(H) 1.60 - 7.00 10? 3 /uL 06/10/2019 11:46 PM [facility] Comment:(BANDS+SEGS) x WBC = NEUT # (ANC) Lymphocyte Absolute Manual 5.32(H) 0.80 - 2.90 10? 3 /uL 06/10/2019 11:46 PM [facility] Monocytes Absolute Manual 0.61 0.14 - 0.66 10? 3 /uL 06/10/2019 11:46 PM [facility] Eosinophils Absolute Manual 0.46(H) 0.00 - 0.22 10? 3 /uL 06/10/2019 11:46 PM [facility] Neutrophil % Manual 58 30 - 60 % 06/10/2019 11:46 PM [facility] Lymphocyte % Manual 35 20 - 45 % 06/10/2019 11:46 PM [facility] Monocytes % Manual 4 2 - 10 % 06/10/2019 11:46 PM [facility] Eosinophils % Manual 3 1 - 6 % 06/10/2019 11:46 PM [facility] Platelet Estimate Adequate Adequate 06/10/2019 11:46 PM [facility] RBC Morphology Normal 06/10/2019 11:46 PM [facility] Blood BLOOD SPECIMEN / Unknown Venipuncture / Unknown 06/10/2019 10:57 PM CLERICAL PROOFREADER 06/10/2019 11:17 PM CLERICAL PROOFREADER Mery Meza MD LAB - HEMATOLOGY ORD ERABLES [address] [phone] Care Teams Event Promoter Relationship Specialty Start Date End Date Ashley Hughes MD PCP - General Internal Medicine 06/21/23
--- OUTSIDE RECORDS SUMMARY | 2024-05-22 05:40 | XMS_ITS | Encounter Summary ---
Author Organization [facility] Health Address [address] [place] [address] Care Team Providers Care Manager Field Investigations Name Role Phone Puneet Hughes MD Primary Care Provider [phone] Encounter Details Date Type Department Care Team (Latest Contact Info) Description 06/23/2023 Travel Social History Tobacco Use Types Packs/Day Years [...] No 06/23/2023 documented as of this encounter Plan of Treatment Not on file documented as of this encounter Goals Goal [...] documented as of this encounter Visit Diagnoses Not on filedocumented in this encounter Care Teams Manager Field Investigations Relationship Specialty Start Date End Date Puneet Hughes MD PCP - General Internal Medicine 06/21/23 documented as of this encounter
--- OUTSIDE RECORDS SUMMARY | 2024-05-22 05:41 | XMS_ITS | Encounter Summary ---
Author Organization [facility] Health Address [address] [place] [address] Care Team Providers Care Washer Meat Name Role Phone Natasha Bates PA-C Primary Care Provider + Encounter Details Date Type Department Care Team (Late st Contact Info) Description 07/29/2021 Orders Only [facility] - Nephrology [address] [place] [address], [place] [address] Gerardo Zavala MD [address] [place] [address] [place] [phone] Stage 3 chronic kidney disease, unspecified whether stage 3a or 3b CKD (HCC) Social History Tobacco Use Types Packs/Day Years [...] or have serious hearing difficult y? No 11/21/2020 Is person blind or have serious difficulty seein g? Yes 11/21/2020 Does person have serious dif ficulty walking/climbing stairs? No 11/21/2020 Does person have difficulty dressing/bathing? No 11/21/2020 Does person have difficulty doing errands alone? No 11/21/2020 Cognitive Status Response Date of Assessm ent Does person have difficulty concentrating/remembering/making decisions? No 11/21/2020 documented as of this encounter Plan of [...] as of this encounter Visit Diagnoses Diagnosis Stage 3 chronic kidney disease, unspecified whether stage 3a or 3b CKD (HCC)- Primary documented in this encounter Care Teams Washer Meat Relationship Specialty Start Date End Date Natasha Bates PA-C [address] [place] [phone] PCP - General 03/21/19 06/20/23 documented as of this encounter
--- OUTSIDE RECORDS SUMMARY | 2024-05-22 05:41 | XMS_ITS | Encounter Summary ---
Author Organization [facility] Health Address [address] [place] [address] Care Team Providers Care Camp Dining Room Attendant Name Role Phone Natasha Bates PA-C Primary Care Provider + Encounter Details Date Type Department Care Team (Late st Contact Info) Description 11/13/2020 Orders Only [facility] - Nephrology [address] [place] [address], [place] [address] Gerardo Zavala MD [address] [place] [address] [place] [id number] Stage 3a chronic kidney disease (HCC) ; Morbid obesity (HCC) Social History Tobacco Use Types Packs/Day Years Used Date Smoking Tobacco: Never Smokeless Tobacco: Never Alcohol Use Standard Drinks/Week Comments Yes 0 (1 standard drink = 0.6 oz pur e alcohol) maybe 4 drinks a month Sex and Gender Information Value Date Recorded Sex Assigned at Not on file Gender Identity Not on file Sexual Orientation Not on file documented as of this encounter Functional Status Functional Status Response Date of Assess ment Is person deaf or have serious hearing difficult y? No 02/02/2020 Is person blind or have serious difficulty seein g? No 02/02/2020 Does person have serious dif ficulty walking/climbing stairs? No 02/02/2020 Does person have difficulty dressing/bathing? No 02/02/2020 Does person have difficulty doing errands alone? No 02/02/2020 Cognitive Status Response Date of Assessm ent Does person have difficulty concentrating/remembering/making decisions? No 02/02/2020 documented as of this encounter Plan of Treatment Not on file documented as of this encounter Procedures Procedure Name Priority Date/Time Associated Diagnosis Comments URINALYSIS MICROSCOPIC ONLY REFLEXED Routine 04/20/2021 1:24 PM DEMURRAGE AGENT Stage 3a chronic kidney disease (HCC) URINALYSIS W/MICROSCOPIC NO CULTURE Routine 04/20/2021 1:24 PM DEMURRAGE AGENT Stage 3a chronic kidney disease (HCC) HEMOGLOBIN A1C Routine 04/20/2021 1:24 PM DEMURRAGE AGENT Morbid obesity (HCC) CBC W AUTO DIFFERENTIAL Routine 04/20/2021 1:24 PM DEMURRAGE AGENT Stage 3a chronic kidney disease (HCC) SODIUM URINE RANDOM Routine 04/20/2021 1 :24 PM DEMURRAGE AGENT Stage 3a chronic kidney disease (HCC) RENAL FUNCTION PANEL Routine 04/20/2021 1:24 PM DEMURRAGE AGENT Stage 3a chronic kidney disease (HCC) POTASSIUM URINE RANDOM Routine 04/20/2021 1:24 PM DEMURRAGE AGENT Stage 3a chronic kidney disease (HCC) PROTEIN CREATININE RATIO URINE RANDOM PNL Routine 04/20/2021 1:24 PM DEMURRAGE AGENT Stage 3a chronic kidney disease (HCC) OSMOLALITY URINE Routine 04/20/2021 1:24 PM DEMURRAGE AGENT Stage 3a chronic kidney disease (HCC) CHLORIDE URINE RANDOM Routine 04/20/2021 1:24 PM DEMURRAGE AGENT Stage 3a chronic kidney disease (HCC) documented in this encounter Results * (ABNORMAL) URINALYSIS MICROSCOPIC ONLY REFLEXED (04/20/2021 1:24 PM DEMURRAGE AGENT) WBC UA 11-30(A) 0 - 5 /hpf [...] test is not needed. 04/20/2021 1:24 PM DEMURRAGE AGENT 04/20/2021 Narrative Resulting Agency Comment Lab Testing performed at: [facility] ??[facility] [id number] Gerardo Oneal MD LAB - UR INALYSIS ORDERABLES [facility] INSURANCE BILL [address] [place] [address] * OSMOLALITY URINE (04/20/2021 1:24 PM DEMURRAGE AGENT) Osmolality Urine 478 mOsmol/kg [facility] INSURANCE BILL Comment: ? 24 hr : ?? 300 - ??900 ? Random: ?50 - 1400 ? After 12hr fluid ? restriction: ?>850 FASTING Urine URINE SPECIMEN OBTAINED BY CLEAN CATCH PROCEDURE / Unknown 04/20/2021 1:24 PM DEMURRAGE AGENT 04/20/2021 Narrative Resulting Agency Comment Lab Testing performed at: [facility] ??[facility] [id number] Gerardo Oneal MD LAB - UR INE CHEMISTRY ORDERABLES Performing Organization Address [facility] de Phone Number [facility] INSURANCE BILL [address] [place] [address] * SODIUM URINE RANDOM (04/20/2021 1:24 PM DEMURRAGE AGENT) Sodium Urine 51 Not Estab. mmol/L [facility] INSURANCE BILL Comment:FASTING Urine URINE SPECIMEN OBTAINED BY CLEAN CATCH PROCEDURE / Unknown 04/20/2021 1:24 PM DEMURRAGE AGENT 04/20/2021 Narrative Resulting Agency Comment [facility]: [facility] [address] ??[facility] [id number] Gerardo Oneal MD LAB - UR INE CHEMISTRY ORDERABLES Performing Organization Address [facility] de Phone Number [facility] INSURANCE BILL [address] [place] [address] * CHLORIDE URINE RANDOM (04/20/2021 1:24 PM DEMURRAGE AGENT) Chloride Urine 58 Not Estab. mmol/L [facility] INSURANCE BILL Comment:FASTING Urine URINE SPECIMEN OBTAINED BY CLEAN CATCH PROCEDURE / Unknown 04/20/2021 1:24 PM DEMURRAGE AGENT 04/20/2021 Narrative Resulting Agency Comment Lab Testing performed at: [facility] [address] ??[facility] [phone] Gerardo Oneal MD LAB - UR INE CHEMISTRY ORDERABLES Performing Organization Address [facility] de Phone Number [facility] INSURANCE BILL [address] [place] [address] * POTASSIUM URINE RANDOM (04/20/2021 1:24 PM DEMURRAGE AGENT) Potassium Urine 39.7 Not Estab. mmol/L [facility] INSURANCE BILL Comment:FASTING Urine URINE SPECIMEN OBTAINED BY CLEAN CATCH PROCEDURE / Unknown 04/20/2021 1:24 PM DEMURRAGE AGENT 04/20/2021 Narrative Resulting Agency Comment Lab Testing performed at: [address] ??[facility] [phone] Gerardo Oneal MD LAB - UR INE CHEMISTRY ORDERABLES Performing Organization Address [facility] Number [facility] INSURANCE BILL [address] [place] [address] * (ABNORMAL) PROTEIN CREATININE RATIO URINE RANDOM PNL (04/20/2021 1:24 PM DEMURRAGE AGENT) Creatinine Urine 121.7 Not Estab. mg/dL [facility] INSURANCE BILL Protein Urine 96.6 Not Estab. mg/dL [facility] INSURANCE BILL Protein/Creatin ine Ratio 794(H) 0 - 200 mg/g creat [facility] INSURANCE BILL Comment:FASTING Urine URINE SPECIMEN OBTAINED BY CLEAN CATCH PROCEDURE / Unknown 04/20/2021 1:24 PM DEMURRAGE AGENT 04/20/2021 Narrative Resulting Agency Comment Lab Testing performed at: [facility] [address] ??[facility] [phone] Gerardo Oneal MD LAB - UR INE CHEMISTRY ORDERABLES Performing Organization Address [facility] de Phone Number [facility] INSURANCE BILL [address] [place] [address] * (ABNORMAL) URINALYSIS W/MICROSCOPIC NO CULTURE (04/20/2021 1:24 PM DEMURRAGE AGENT) Specific [place] UA 1.018 1.005 - 1.030 [facility] INSURANCE [...] CATCH PROCEDURE / Unknown 04/20/2021 1:24 PM DEMURRAGE AGENT 04/20/2021 Narrative Resulting Agency Comment Lab Testing performed at: [employer] ??[facility] [id number] Gerardo Oneal MD LAB - UR INALYSIS ORDERABLES [facility] INSURANCE BILL [address] [place] [address] * (ABNORMAL) CBC WITH DIFFERENTIAL (04/20/2021 1:24 PM DEMURRAGE AGENT) WBC 10.3 3.4 - 10.8 x10E3/uL [facility] INSURANCE BILL RBC 4.26 4.14 - 5.80 x10E6/uL [facility] INSURANCE BILL Hemoglobin 13.6 13.0 - 17.7 g/dL [facility] INSURANCE BILL Hematocrit 41.9 37.5 - 51.0 % [facility] INSURANCE BILL MCV 98(H) 79 - 97 fL [facility] INSURANCE BILL MCH 31.9 26.6 - 33.0 pg [facility] INSURANCE BILL MCHC 32.5 31.5 - 35.7 g/dL [facility] INSURANCE BILL RDW 14.2 11.6 - 15.4 % [facility] INSURANCE BILL Platelet Count 226 150 - 450 x10E3/uL [facility] INSURANCE BILL Granulocytes % 61 Not Estab. % [facility] INSURANCE BILL Lymphocytes % 27 Not Estab. % [facility] INSURANCE BILL Monocytes % 7 Not Estab. % [facility] INSURANCE BILL Eosinophils % 4 Not Estab. % [facility] INSURANCE BILL Basophils % 1 Not Estab. % [facility] INSURANCE BILL Immature Cells NOT NEEDED [facility] INSURANCE BILL Comment:Ancillary determined the test is not needed. Granulocytes Absolute 6.2 1.4 - 7.0 x10E3/uL [facility] INSURANCE BILL Lymphocytes Absolute 2.8 0.7 - 3.1 x10E3/uL [facility] INSURANCE BILL Monocytes Absolute 0.8 0.1 - 0.9 x10E3/uL [facility] INSURANCE BILL Eosinophils Absolute 0.4 0.0 - 0.4 x10E3/uL [facility] INSURANCE BILL Basophils Absolute 0.1 0.0 - 0.2 x10E3/uL [facility] INSURANCE BILL Immature Granulocytes 0 Not Estab. % [facility] INSURANCE BILL Immature Granulocytes Absolute 0.0 0.0 - 0.1 x10E3/uL [facility] INSURANCE BILL nRBC NOT NEEDED [facility] INSURANCE BILL Comment:Ancillary determined the test is not needed. Comment Hematology NOT NEEDED [facility] INSURANCE BILL Comment: FASTING Ancillary determined the test is not needed. Blood BLOOD SPECIMEN / Unknown 04/20/2021 1:24 PM DEMURRAGE AGENT 04/20/2021 Narrative Resulting Agency Comment Lab Testing performed at: [address] ??[facility] [id number] Gerardo Oneal MD LAB - HE MATOLOGY ORDERABLES [facility] INSURANCE BILL [address] [place] [address] * (ABNORMAL) RENAL FUNCTION PANEL (04/20/2021 1:24 PM DEMURRAGE AGENT) Glucose 77 65 - 99 mg/dL [facility] INSURANCE BILL BUN 22 6 - 24 mg/dL [facility] INSURANCE BILL Creatinine 1.33(H) 0.76 - 1.27 mg/dL [facility] INSURANCE BILL eGFR by MDRD 59(L) >59 mL/min/1. 73 [facility] INSURANCE BILL eGFR by MDRD 69 >59 mL/min/1. 73 [facility] INSURANCE BILL Comment: In accordance with recommendations from the NKF-ASN Task force, ??[facility] is in the process of updating its [...] BLOOD SPECIMEN / Unknown 04/20/2021 1:24 PM DEMURRAGE AGENT 04/20/2021 Narrative Resulting Agency Comment Lab Testing performed at: [address] ??[facility] [phone] Gerardo Oneal MD LAB - CH EMISTRY ORDERABLES [facility] INSURANCE BILL [address] [place] [address] * HEMOGLOBIN A1C (04/20/2021 1:24 PM DEMURRAGE AGENT) Hemoglobin A1c 5.5 4.8 - 5.6 % [facility] INSURANCE BILL Comment: ? . ? Prediabetes: 5.7 - 6.4 ? Diabetes: >6.4 ? Glycemic control for adults with diabetes: <7.0 FASTING Blood BLOOD SPECIMEN / Unknown 04/20/2021 1:24 PM DEMURRAGE AGENT 04/20/2021 Narrative Resulting Agency Comment [facility]: [facility] [address] [facility] ??[facility] [phone] Gerardo Oneal MD LAB - CH EMISTRY ORDERABLES [facility] INSURANCE BILL [address] [place] [address] documented in this encounter Visit Diagnoses Diagnosis Stage 3a chronic kidney disease (HCC)- Primary Morbid obesity (HCC) Morbid obesity documented in this encounter Care Teams Camp Dining Room Attendant Relationship Specialty Start Date End Date Natasha Bates PA-C [facility] [place] [phone] PCP - General 03/21/19 06/20/23 documented as of this encounter
--- OUTSIDE RECORDS SUMMARY | 2024-05-22 05:41 | XMS_ITS | Encounter Summary ---
Author Organization [facility] Health Address [address] [place] [address] Care Team Providers Care Sales Director Name Role Phone Natasha Bates PA-C Primary Care Provider + Encounter Details Date Type Department Care Team (Late st Contact Info) Description 08/20/2020 Orders Only [facility] - Nephrology [address] [place] [address], [place] [address] Gerardo Zavala MD [address] [place] [address] [place] [address] Essential hypertension ; Stage 3 chronic kidney disease, unspecified whether [...] Procedure Name Priority Date/Time Associated Diagnosis Comments RENAL FUNCTION PANEL Routine 09/22/2020 1:43 PM CDT Essential hypertension Stage 3 chronic kidney disease, unspecified whether stage 3a or 3b CKD (HCC) documented in this encounter Results * (ABNORMAL) RENAL FUNCTION PANEL (09/22/2020 1:43 PM CDT) Glucose 94 65 - 99 mg/dL [facility] INSURANCE BILL BUN 26(H) 6 - 24 mg/dL [facility] INSURANCE BILL Creatinine 1.35(H) 0.76 - 1.27 mg/dL [facility] INSURANCE BILL eGFR by MDRD 59(L) >59 mL/min/1.7 3 [facility] INSURANCE BILL eGFR by MDRD 68 >59 mL/min/1.7 3 [facility] INSURANCE BILL Comment: [facility] currently reports eGFR in compliance with the current ??recommendations of the National Kidney Foundation. [facility] will ??update reporting as new guidelines are published from the NKF-ASN ??Task force. BUN/Creatinine Ratio 19 9 - 20 [facility] INSURANCE BILL Sodium 144 134 - 144 mmol/L [facility] INSURANCE BILL Potassium 5.0 3.5 - 5.2 mmol/L [facility] INSURANCE BILL Chloride 101 96 - 106 mmol/L [facility] INSURANCE BILL CO2 28 20 - 29 mmol/L [facility] INSURANCE BILL Calcium 9.3 8.7 - 10.2 mg/dL [facility] INSURANCE BILL Phosphorus 3.2 2.8 - 4.1 mg/dL [facility] INSURANCE BILL Albumin 3.3(L) 3.8 - 4.9 g/dL [facility] INSURANCE BILL Comment:FASTING Blood BLOOD SPECIMEN / Unknown 09/22/2020 1:43 PM CDT 09/22/2020 Narrative Resulting Agency Comment Lab Testing performed at: [facility] [address] ??On license of [facility] [id number] Gerardo Oneal MD LAB - CH EMISTRY ORDERABLES [facility] INSURANCE BILL [address] [place] [address] documented in this encounter Visit Diagnoses Diagnosis Essential hypertension- Primary Stage 3 chronic kidney disease, unspecified whether stage 3a or 3b CKD (HCC) documented in this encounter Care Teams Sales Director Relationship Specialty Start Date End Date Natasha Bates PA-C [address] [place] [phone] PCP - General 03/21/19 06/20/23 documented as of this encounter
--- OUTSIDE RECORDS SUMMARY | 2024-05-22 05:41 | XMS_ITS | Encounter Summary ---
Author Organization [facility] Address [address] [place] [address] Care Team Providers Care Fleet Service Clerk Name Role Phone Natasha Bates PA-C Primary Care Provider + Reason for Visit * Reason Comments Chronic Kidney Disease kidney function a nd K+ and Na elevated Encounter Details Date Type Department Care Team (Late st Contact Info) Description 02/18/2021 3:30 PM CDT Office Visit [facility] - Nephrology [address] [place] [address], [facility] [place] [address] America Zavala MD [address] [place] [address] [place] [address] Stage 3 chronic kidney disease, unspecified whether stage 3a or 3b CKD (HCC) (Primary Dx); Chronic kidney disease, unspecified CKD stage; ERIC (acute kidney injury) (HCC) Social History Tobacco Use Types Packs/Day Years Used Date Smoking Tobacco: Never Smokeless Tobacco: Never Alcohol Use Standard Drinks/Week Comments Yes 0 (1 standard drink = 0.6 oz pur e alcohol) maybe 4 drinks a month Sex and Gender Information Value Date Recorded Sex Assigned at Not on file Gender Identity Not on file Sexual Orientation Not on file COVID-19 Exposure Response Date Recorded In the last month, have you been in contact with someone who was confirmed or suspected to have Coronavirus / COVID-19? No / Unsure 03/12/2021 11:19 AM CDT documented as of this encounter Last Filed Vital Signs Vital Sign Reading Time Taken Comments Blood Pressure 116/68 02/18/2021 3:10 PM CDT Pulse 82 02/18/2021 3:10 PM CDT Temperature 36.8 ??C (98.3 ??F) 02/18/2021 3:10 PM CD T Respiratory Rate - - Oxygen Saturation 95% 02/18/2021 3:10 PM CDT Inhaled Oxygen Concentration - - Weight 132.9 kg (293 lb) 02/18/2021 3:10 PM CDT Height 182.9 cm (6') 02/18/2021 3:10 PM CDT Body Mass Index 39.74 02/18/2021 3:10 PM CDT documented in this encounter Functional Status Functional Status Response [...] No 11/21/2020 documented as of this encounter Progress Notes * America Zavala MD - 02/18/2021 4:21 PM CDT Nephrology Clinic Note Date of Visit: 02/18/2021 Time of Visit: 4:21 PM Chief Complaint Patient presents with ??? Chronic Kidney Disease kidney function and K+ and Na elevated Mr. Delaney is a 54 year old male who presents for follow up of CKD stage 3 and hyperkalemia. Patient has history significant for pulmonary HTN, MIRELLA, obesity, heart failure, with preserved EF. Admitted for syncope in 2019, cardiac catheterization showed normal coronaries, elevated filling pressures. RA 15 mmHg, PAP 30 mmHg, LVEDP 24 mmHg. His kidney function has been relatively stable with a serum creatinine in the range of 1.3 to 1.4, and serum K in the range of 4.7 to 5.8 with moderate proteinuria (0.4 to 0.6 mg/g creatinine). - Patient underwent a gastric sleeve surgery on 08/04/2020. When he was seen in this clinic after surgery he had lost about 24 lbs of weight and had evidence of volume contraction and hypotension. Hiscreatinine was 1.74 and K 4.8. Furosemide and BP medications were omitted and his clinical situation improved. - Het was admitted to [facility] on 11/20/2020 due to fall after sleeping. At that time, he had fallen asleep without his CPAP machine. His labs at [facility] showed respiratory acidosis with hypoxia, creatinine 1.66. CT head did not show evidence of hemorrhage. Fibul XR showed a minimally displaced fracture of the fibular head. MEDS: Carvedilol was ommitted for low BPO. Continues on furosemide 20 mg BID around 1 to 2 times a week for occasional edema in LE. 11/21/2020: serum creatinine 1.32 and K 3.7 with a CO2 of 31. 02/07/2020: creatinine 1.85, BUN 31, Na 139, K 5.7, Cl 103, Ca 8.8, alb 3.3, AST 24, AT 23. WBC 10.9, Hgb 12.4, plt 216. cholesterol 112, triglycerides 65, HDL cholesterol 42, LDL cholesterol 56, VLDL 14. Subjective: Patient has lost about 84 lbs since he underwent gastric sleeve surgery in July/2020 Weakness some times, feels drained . Related to low BP. Good appetite, ingest proteins every day. 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 Device was removed and a souza catheter was placed temporarily Pain in his urethral and bladder area. Denies SB, chest pain or cough. He has minimal or no edema in his legs for which he takes furosemide 40 mg irregularly Some times feels dizzy when his BP is low. Usual BP at home around 110 systolic. Patient Active Problem List Diagnosis Date Noted ??? Bilateral leg edema 01/16/2021 Priority: Not Prioritized ??? Lymphedema of both lower extremities 01/16/2021 Priority: Not Prioritized ??? Acute pain of right knee 11/20/2020 Priority: Not Prioritized ??? Heart palpitations 07/24/2020 Priority: Not Prioritized ??? Congestive heart failure 02/01/2020 Priority: Not Prioritized ??? Morbid obesity 02/01/2020 Priority: Not Prioritized ??? Pulmonary hypertension 11/07/2019 Priority: Not Prioritized ??? Orthostasis 11/07/2019 Priority: Not Prioritized ??? Acute on chronic diastolic heart failure 11/07/2019 Priority: Not Prioritized ??? Near syncope 11/03/2019 Priority: Not Prioritized ??? Chest pain 06/11/2019 Priority: Not Prioritized ??? Need for influenza vaccination 05/13/2019 Priority: Not Prioritized ??? Class 3 severe obesity due to excess calories without serious comorbidity with body mass index (BMI) of 45.0 to 49.9 in adult 05/13/2019 Priority: Not Prioritized ??? Essential hypertension 05/13/2019 Priority: Not Prioritized ??? LVH (left ventricular hypertrophy) due to hypertensive disease, with heart failure 05/13/2019 Priority: Not Prioritized ??? Mixed hyperlipidemia 05/13/2019 Priority: Not Prioritized ??? Pedal edema 05/13/2019 Priority: Not Prioritized ??? CRD (chronic renal disease), stage II 05/13/2019 Priority: Not Prioritized ??? Chronic right heart failure 05/13/2019 Priority: Not Prioritized ??? Snoring 05/13/2019 Priority: Not Prioritized ??? MIRELLA (obstructive sleep apnea) 05/13/2019 Priority: Not Prioritized Current Outpatient Medications on File Prior to Visit Medication Sig Dispense Refill ??? acetaminophen (TYLENOL) 325 MG tablet Take 650 mg by mouth ??? atorvastatin (LIPITOR) 40 MG tablet every 24 hours ??? CALCIUM PO ??? Cyanocobalamin (B-12 PO) ??? furosemide (LASIX) 40 MG tablet Take 20 mg by mouth as needed ??? gabapentin (NEURONTIN) 100 MG capsule Take 200 mg by mouth once daily ??? Multiple Vitamin (DAILY-RAKESH) TABS Take 1 tablet by mouth once daily ??? oxybutynin (DITROPAN) 5 MG tablet TAKE 1 TABLET BY MOUTH TWICE DAILY DIRECTED ??? solifenacin (VESICARE) 10 MG tablet Take 10 mg by mouth once daily No current facility-administered medications on file prior to visit. Allergies Allergen Reactions ??? Aspirin Unknown hematuria Past Surgical History: Procedure Laterality Date ??? BARIATRIC SURGERY, GASTRIC gastric sleeve ??? BLADDER PROCEDURE/SURGERY arteficial EUS Family History Problem Relation Name Age of Onset ??? Other Mother pulmonary hypertension ??? Other Nephew pulmonary hypertension Social History Tobacco Use ??? Smoking status: Never Smoker ??? Smokeless tobacco: Never Used Vaping Use ??? Vaping Use: Never used Substance Use Topics ??? Alcohol use: Yes Comment: maybe 4 drinks a month ??? Drug use: Never Objective: Vitals: 02/18/21 1510 BP: 116/68 Pulse: 82 Temp: 98.3 ??F (36.8 ??C) SpO2: 95% Weight: 132.9 kg (293 lb) Height: 1.829 m (6') Estimated body mass index is 39.74 kg/m?? as calculated from the following: Height as of this encounter: 1.829 m (6'). Weight as of this encounter: 132.9 kg (293 lb). General: Alert, cooperative, no distress, appears stated age. Head/Neck: Normocephalic, without obvious abnormality, atraumatic. Neck supple, symmetrical, trachea midline, no carotid bruit and no thyromegaly. ENT/Mouth: Conjunctivae/corneas clear. Nares normal. Mucus membranes moist, no erythema, drainage or edema. No cervical or supraclavicular LAD. CV: Regular rate and rhythm, S1, S2 normal, no murmur, click, rub or gallop. Pulses + BLE, no lower extremity edema. Respiratory: Clear to auscultation bilaterally. GI: Soft, non-tender. Bowel sounds normal. No masses, No organomegaly. M/S: Back symmetric, no curvature. ROM normal. No CVA tenderness. Extremities normal, atraumatic, no cyanosis. Skin: Skin color normal. No rashes or lesions. Neurologic: Grossly normal. No asterixis. Psychiatric: Normal range mood/affect. Data Review Recent Labs Component Name 11/21/20 0144 11/20/20 0600 08/18/20 1659 02/04/20 0518 02/03/20 0402 02/03/20 0402 06/11/19 2229 06/10/19 2257 WBC 10.4 11.0* 12.7* 9.0 - 9.5 - 15.2* RBC 4.27* 4.28* 4.60 4.54 - 4.20* - 4.67 HGB 13.1 12.9 13.7 12.7* - 12.1* - 13.3* HCT 39.3 39.9 41.6 40.7 - 37.8* - 43.1 MCV 92.0 93.2 90 89.6 - 90.0 - 92.3 MCH 30.7 30.1 29.8 28.0 - 28.8 - 28.5 MCHC 33.3 32.3 32.9 31.2* - 32.0 - 30.9* RDWSD 54.4* 55.0* - 47.8 - 48.1 - 48.3 RDW 16.3* 16.2* 15.3 14.6 - 14.7 - 14.4 MPV 13.0* 12.7 - 11.9 - 11.8 - 11.9 NRBCABS 0.00 0.00 - 0.00 - 0.00 - 0.00 NRBCAUTOPCT 0.0 0.0 - 0.0 - 0.0 - 0.0 NEUTPCT - 56.1 - 57.5 - 55.9 - - LYMPHSPCT - 30.9 - 27.4 - 28.3 - - MONOPCT - 7.6 - 8.4 - 8.6 - - EOSPCT - 4.5 - 6.1* - 6.5* - 3 BASOPCT - 0.5 1 0.4 - 0.5 - - IMMGRANSPCT - 0.4 - 0.2 - 0.2 - - NEUTABS - 6.2 - 5.2 - 5.3 - 8.82* LYMPHS - 3.4 - 2.5 - 2.7 - 5.32* MONO - 0.84 - 0.76* - 0.81* - 0.61 EOS - 0.50* - 0.55* - 0.62* - 0.46* BASO - 0.06 - 0.04 - 0.05 - - TOTCELLCNT - - - - - - - 100 - = values in this interval not displayed. Recent Labs Component Name 02/17/21 1149 11/21/20 0144 11/20/20 0600 08/18/20 1659 02/19/20 1532 02/13/20 1416 02/04/20 0518 02/02/2043502/01/20201312/26/19 1507 12/26/19 1507 11/05/1943511/03/19 2337 BUN 26* 26 29* - 41* - 28* - 30* - 27* - 31* CREATININE 1.45* 1.32* 1.66* - 1.56* - 1.4* - 1.5* - 1.5* - 1.4* NA - 141 141 - - - 136 - 139 - 143 - 146* POTASSIUM 4.9 3.7 4.2 - 4.9 - 3.4* - 4.0 - 5.0* - 4.9* CL - 103 101 - - - 96* - 98 - 105 - 107 CO2 28 31* 31* - 30 - 34* - 35* - 34* - 30* CALCIUM 9.0 8.5 8.6 - 9.4 - 8.9 - 9.3 - 8.6 - 8.9 PROT - - 6.2 - - - - - 7.5 - - - 7.1 ALB - - 2.7* - - - - - 2.9* - 2.8* - 2.7* TBILI - - 0.5 - - - - - 0.7 - - - 0.5 ALKPHOS - - 79 - - - - - 97 - - - 87 ALT - - 16 - - - - - 32 - - - 15 AST - - 20 - - - - - 28 - - - 18 ANIONGAP - 11 13 - 11 - 9 - 10 - 9 - 14 BCR - 20 17 - - - 20 - 20 - 18 - 22 OSMOLALITY - 296 297 - - - 287 - 293 - 301* - 309* AGRATIO - - 0.8* - - - - - 0.6* - - - 0.6* EGFR 53* 60* 45* - 46* - 53* - 49* - 49* - 53* - = values in this interval not displayed. No results for input(s): DSDNAIGGAB in the last 92889 hours. Recent Labs Lab 11/21/20 0144 11/03/19 2337 TSH 1.443 1.196 Recent Labs Component Name 11/20/20 0600 07/05/19 1232 HGBA1C 5.4 5.7* EAG 108 - No results for input(s): FERRITIN in the last 18469 hours. No results for input(s): IRON, TIBC in the last 80140 hours. No results for input(s): PTHINTACT in the last 14710 hours. Lab results smartLinks are not currently available Lab results smartLinks are not currently available Lab results smartLinks are not currently available Urine Studies Recent Labs Component Name 11/20/20 0959 COLORU Straw CLARITYU Clear LABSPEC 1.012 PROTEINU Negative GLUCOSERUR Negative KETONES Negative BILIRUBINUR Negative BLOODU Negative NITRITE Negative LEUKOCYTE Negative UROBILINUA Negative RBCUA 0-2 WBCU None Seen SQUAMOUS None Seen No results for input(s): ALBUMINRA in the last 63898 hours. Invalid input(s): CREATININEUR No results for input(s): MICROALB in the last 00720 hours. Assessment: # ERIC on CKD stage 3. Baseline creatinine usually in the range of 1.3 to 1.6. Moderate proteinuria,443 mg/g creatinine on 08/18/2020. Last creatinine on 11/20/2020, 1.3. Creatinine increased to 1.85 and K 5.7 by 01/06/2021, likely associated to obstructive component dueto dysfunction in his artificial urethral artificial sphincter dysfunction. Device was disabled tod souza catheter was placed. Labs obtained yesterday showed an improvement of creatinine and K to 1.45 and 4.9, respectively. - Will continue follow up - Renal function panel in one week # HTN: BP controlled without medication. BP today 116/68. He is taking furosemide 40 mg irregularly, less bridges 2 times/week as needed for peripheral edema. # Hyperkalemia: K level increased to 5.7 in association with ERIC likely obstructive, see above. K yesterday, 4.9. - Will add veltassa 8.4 g/day - Renal function panel in a week. America Oneal MD Internal Medicine, Div of Nephrology Addendum 04/15/2021 Labs of 04/01/2021 were reviewed: Moderate hyperkalemia, K 5.2. Patient taking veltassa 8.4 mg. Lasix PRN less than once a week. - Plan: Continue veltassa. Lasix 3 times a week. - Follow up in clinic in May 2021 - Renal function panel TRICAL HELPER documented in this encounter Miscellaneous Notes * Addendum Note - America Zavala MD - 04/15/2021 10:47 AM ELECTRICAL HELPER Addended by: AMERICA ZAVALA on: 04/15/2021 10:47 AM Modules accepted: Orders TRICAL HELPER documented in this encounter Plan of Treatment Not on [...] stage 3a or 3b CKD (HCC)- Primary Chronic kidney disease, unspecified CKD stage ERIC (acute kidney injury) (HCC) Acute kidney failure, unspecified documented in this encounter Care Teams Fleet Service Clerk Relationship Specialty Start Date End Date Natasha Bates PA-C [address] [place] [address] PCP - General 03/21/19 06/20/23 documented as of this encounter
--- OUTSIDE RECORDS SUMMARY | 2024-05-22 05:41 | XMS_ITS | Encounter Summary ---
Author Organization [facility] Health Address [address] [place] [address] Care Team Providers Care Boring Machine Operator Helper Name Role Phone Ntaasha Bates PA-C Primary Care Provider + Encounter Details Date Type Department Care Team (Late st Contact Info) Description 08/25/2020 3:00 PM CDT Video Visit [facility] [address] [facility] [address] [place] [address] Berenice Plaza, LIQUOR STORE MANAGER-BAIT PAINTER [address] [facility] [address] [place] [address] Heart palpitations ; MIRELLA (obstructive sleep apnea); CRD (chronic renal disease), stage II; Acute on chronic diastolic heart failure (HCC) Social History Tobacco Use Types Packs/Day [...] on file documented as of this encounter Last Filed Vital Signs Vital Sign Reading Time Taken Comments Blood Pressure - - Pulse - - Temperature - - Respiratory Rate - - Oxygen Saturation - - Inhaled Oxygen Concentration - - Weight 151.5 kg (334 lb) 08/25/2020 2:28 PM CDT Height 185.4 cm (6' 1 ) 08/25/2020 2:28 PM CDT Body Mass Index 44.07 08/25/2020 2:28 PM CDT documented in this encounter Functional [...] No 02/02/2020 documented as of this encounter Patient Instructions * Patient Instructions* Berenice Plaza APRN-CNP - 08/25/2020 3:10 PM CDT Ht 6' 1 (1.854 m) Wt 334 lb (151.5 kg) BMI 44.07 kg/m2 Stop Isosorbide and Decrease Coreg to 12.5mg twice a day. My chart message Berenice in 1 week. Hold COreg for blood pressure under 100. Lasix as needed. documented in this encounter Progress Notes * Berenice Plaza APRN-CNP - 08/25/2020 3:04 PM CDT Telephone Note Today's visit was conducted virtually due to COVID-19 countermeasures. The patient has given verbalconsent to have today's visit conducted by this same means with treatment provided remotely. The patient verbally consents to the billing and collection practices of [facility] and [facility]. Assessment & Plan Howie is a 54 year old male who has completed a telephone encounter regarding: Encounter duration: 12 minutes Patient location: Home This encounter was performed using: Telephone Reason for not using video for visit: Pt preference The plan was reviewed with the patient and the patient confirmed understanding of the plan and all follow-up steps. All aspects of patient's medical history were reviewed and updated as documented in Epic Assessment and Plan: Problem List Items Addressed This Visit Cardiovascular Acute on chronic diastolic heart failure Chronic HFpEF with 40lb weight loss since 08/04 following gastric sleeve. Now with orthostatic changes and hypotension at home. No MACO?ARB given CKD. Stop Imdur and change lasix to PRN weight gain, edema. Decrease Coreg to 12.5mg BID. Message in one week with update on SBP at home. Follow up as scheduled with Dr. Moreno in January 2021. Heart palpitations - Primary Device with no concern for arrhythmia or PVC burden, continue BB. No further work up at this time. Respiratory MIRELLA (obstructive sleep apnea) Compliant with CPAP. Genitourinary CRD (chronic renal disease), stage II Follow up with Nephrology for recs on Hyperkalemia, off all potassium sparing agents. Their team for recs for resuming Valtessa. Appreciate their rec, imdur stopped, coreg decreased and lasix changed to PRN. Follow up with Dr. Moreno in January 2021. Subjective Chief Complaint: Hypotension and LH HPI: Howie Delaney is a 54 year old male with PMH significant for significant for CKD, HTN, Obestiy,HLD, MIRELLA on CPAP, who was last seen in clinic??by Dr. Moreno and Dr. Salazar virtually in July 2020 and at the time had just been doing well following gastric sleeve surgery released from the hospital following on 08/04/20. Has lost 41lbs since 08/04/20. He was seen recently by Nephrology with concern for orthostatic hypotension and his Isosorbide was decreased to 30mg daily and his lasix was stopped he was having dizziness and LH, no syncope. His breathing has improved and has no edema. He decreased his coreg to 25mg daily on his own. He is not having chest pain, palpitations, syncope or pre-syncope ROS is negative except for stated in the HPI. Past Medical History: Diagnosis Date ??? CKD (chronic kidney disease) ??? HFrEF (heart failure with reduced ejection fraction) ??? HLD (hyperlipidemia) ??? HTN (hypertension) ??? MIRELLA (obstructive sleep apnea) 05/13/2019 Objective PHYSICAL EXAM: Unable to complete, telemedicine visit. Reviewed and negative for ankle edema, abdominal swelling. Body mass index is 44.07 kg/m??. Current Outpatient Medications Medication Sig Dispense Refill ??? acetaminophen (TYLENOL) 325 MG tablet Take 2 tablets by mouth every 6 hours as needed Maximum allowable Acetaminophen amount = 4 Grams (4000 mg) / 24 hours. ??? Acetaminophen-Codeine 300-30 MG acetaminophen 300 mg-codeine 30 mg tablet TAKE 1 TABLET BY MOUTH EVERY 8 HOURS FOR 7 DAYS NEEDED ??? albuterol HFA (PROAIR HFA) 108 (90 Base) MCG/ACT inhaler Inhale 2 puffs by mouth every 4 hours as needed for Shortness of Breath, Wheezing or Cough 1 Inhaler 1 ??? allopurinol (ZYLOPRIM) 100 MG tablet Take 100 mg by mouth 2 times daily ??? atorvastatin (LIPITOR) 40 MG tablet every 24 hours ??? CALCIUM PO ??? carvedilol (COREG) 12.5 MG tablet Take 1 (one) tablet by mouth 2 times daily with morning and evening meal 60 tablet 1 ??? Cyanocobalamin (B-12 PO) ??? furosemide (LASIX) 20 MG tablet Take 1 (one) tablet by mouth once daily (Patient not taking: Reported on 08/25/2020) 360 tablet 0 ??? gabapentin (NEURONTIN) 300 MG capsule Take 300 mg by mouth 3 times daily ??? Multiple Vitamin (DAILY-RAKESH) TABS Take 1 tablet by mouth once daily ??? patiromer (VELTASSA) 16.8 g packet Take 1 (one) packet by mouth daily with food Measure 1/3 cupof water. Pour half into a glass, add Veltassa and stir. Add the remaining half and stir. The mixture will look cloudy. Add more water to the mixture as needed for desired consistency. Drink immediately. If powder remains in the glass after drinking, add more water, stir and drink immediately. Repeat as needed. Avoid taking other oral medications 3 hours before or after. 30 packet 3 ??? zolpidem (AMBIEN) 5 MG tablet Take 1 (one) tablet by mouth nightly as needed for Insomnia 30 tablet 3 No current facility-administered medications for this visit. DATA: ECHO: 05/2019 ?? The right atrium is mildly enlarged. The left atrium is mildly enlarged. There is concentric remodeling of the left ventricle. The left ventricle is normal size. Left ventricular segmental wall motion is normal. Left ventricular systolic function is hyperdynamic with an ejection fraction by Biplane Method of Discs of 75 %. The left ventricular diastolic function is normal, consistent with normal left ventricle filling pressures. No significant valvular abnormalities. ?? CATH/STRESS TESTING: [facility] 11/2019 ?? Pressures: LV: ??116/24 mmHg LVEDP: ??24 [...] mmHg Pulmonary vascular resistance: ??0.67 Lockett units ?? ANGIOGRAPHY: ?? i. Left main: Patent with no angiographic disease. ii. LAD: Patent LAD and its OM branches with no angiographic disease. Wraps around the apex. iii. LCx: Patent LCx and marginal branches. iv. RCA: Non-dominant RCA that is a patent vessel and provides RPDA. ?? DOMINANCE: Left ?? CONTRAST:??15 ml ? RADIATION DOSE: Cumulative AK: 551.53 mGy Cumulative DAP: 06763 mGycm2 ?? DIAGNOSTIC INTERPRETATIONS: 1) Elevated filling pressure with moderate pulmonary venous hypertension (RA 15 mmHg, PAD 30 mmHg, LVEDP 24 mmHg). 2) Normal coronaries ?? RECOMMENDATIONS AFTER DIAGNOSTIC CATHETERIZATION:? Medical management for worsening dyspnea to achieve euvolemic status. ?? Hubert Avila MD? Cardiovascular Medicine Fellow [facility] Cardiovascular Care [facility] DEVICE: 08/10 There was 1 manually triggered events. During this triggered episode, the patient reported no symptoms and sinus rhythm without rhythm or conduction abnormalities were noted. NATALIE Aj documented in this encounter Plan of Treatment Not on file documented as of this encounter Visit Diagnoses Diagnosis Heart palpitations- Primary Palpitations MIRELLA (obstructive sleep apnea) Obstructive sleep apnea (adult) (pediatric) CRD (chronic renal disease), stage II Chronic kidney disease, Stage II (mild) Acute on chronic diastolic heart failure (HCC) Acute on chronic diastolic heart failure * Assessment & Plan Note - Berenice Plaza APRN-CNP - 08/26/2020 9:34 AM CDT Associated Problem(s): MIRELLA (obstructive sleep apnea) Compliant with CPAP. * Assessment & Plan Note - Berenice Plaza APRN-CNP - 08/26/2020 9:33 AM CDT Associated Problem(s): CRD (chronic renal disease), stage II Follow up with Nephrology for recs on Hyperkalemia, off all potassium sparing agents. Their team for recs for resuming Valtessa. Appreciate their rec, imdur stopped, coreg decreased and lasix changed to PRN. * Assessment & Plan Note - Berenice Plaza APRN-CNP - 08/26/2020 9:32 AM CDT Associated Problem(s): Heart palpitations Device with no concern for arrhythmia or PVC burden, continue BB. No further work up at this time. * Assessment & Plan Note - Berenice Plaza APRN-CNP - 08/26/2020 9:30 AM CDT Associated Problem(s): Acute on chronic diastolic heart failure (HCC) Chronic HFpEF with 40lb weight loss since 08/04 following gastric sleeve. Now with orthostatic changes and hypotension at home. No MACO?ARB given CKD. Stop Imdur and change lasix to PRN weight gain, edema. Decrease Coreg to 12.5mg BID. Message in one week with update on SBP at home. Follow up as scheduled with Dr. Moreno in January 2021. documented in this encounter Care Teams Boring Machine Operator Helper Relationship Specialty Start Date End Date Natasha Bates PA-C [address] [place] [id number] PCP - General 03/21/19 06/20/23 documented as of this encounter
--- OUTSIDE RECORDS SUMMARY | 2024-05-22 05:41 | XMS_ITS | Encounter Summary ---
Author Organization [facility] Health Address [address] [facility] [place] [address] Care Team Providers Care Top Lift Cutter Name Role Phone Natasha Bates PA-C Primary Care Provider + Reason for Visit * Reason Comments Obstructive Sleep Apnea Encounter Details Date Type Department Care Team (Late st Contact Info) Description 08/29/2020 11:00 AM CDT Video Visit [facility] Sleep Disorder Center [address] [place] [address] Sunshine Mayo, DO [address] [place] [address] MIRELLA (obstructive sleep apnea) ; Sleep related hypoxia; Insomnia, unspecified type Social History Tobacco Use Types [...] - - Weight 151.5 kg (334 lb) 08/29/2020 9:09 AM CDT Height 185.4 cm (6' 1 ) 08/29/2020 9:09 AM CDT Body Mass Index 44.07 08/29/2020 9:09 AM CDT documented in this encounter Functional Status [...] No 02/02/2020 documented as of this encounter Progress Notes * Sunshine Mayo DO - 08/29/2020 11:20 AM CDT [facility] Sleep Disorders Center [facility], First Floor [address] [facility] [place] [address] Telephone : [phone] or Medical Records AUTOMATIC POSITIVE AIRWAY PRESSURE (APAP) PRESCRIPTION FORM Patient Name: Howie Delaney Date of : 1965 Date of Visit: 08/29/2020 Age: [age] year old Sex: male Diagnosis: [x] Obstructive sleep apnea [] Other: APAP Settings: Minimum pressure = 4 cmH2O Maximum pressure = 20 cmH2O Interface: Brand: [] nasal pillows [] nasal mask [] full-face mask [x] fit for mask Size: [] extra-small [] small [] medium [x] Fit for mask [x] Humidifier: [x] heated [] non-heated [x] Heated tubing [] Chin strap [x] Other necessary positive airway pressure therapy supplies (e.g., filters, etc.) [x] Oxygen flow rate = 3 L/min side flow via CPAP [] Overnight oximetry on above settings Sunshine Mayo DO [facility] Sleep Medicine Specialist [facility] This note was electronically signed on 08/29/2020. * Sunshine Mayo DO - 08/29/2020 11:08 AM CDT Telemedicine Note Today's visit was conducted virtually due to COVID-19 countermeasures. The patient has given verbalconsent to have today's visit conducted by this same means with treatment provided remotely. The patient verbally consents to the billing and collection practices of the provider's medical group. Patient location: Home This encounter was performed using: audio Reason for not using video for visit: patient does not have the technology Total time spent on visit on date of encounter is: 15 minutes with 15 minutes spent in medical discussion Subjective Chief Complaint Patient presents with ??? Obstructive Sleep Apnea Had bypass surgery about 3 weeks ago Already lost 40 lb Has been having more difficulty sleeping since surgery, not taking ambien however. It was not helping and he was still staying up very late. His normal sleep time is not until 2 AM. Sleep late until 9-10 AM if not working. If having to get up early for work, feels very tired. Also had a difficult time waking up in the AM after taking Ambien. CPAP: appbackr called to tell him he was not compliant with CPAP, due to the insomnia. Feels CPAP pressure is too high, panic feeling when wearing the machine, like too much air. He is on fixed pressure 10 cmH2o. He was told however he does have an APAP machine. Would like to Eyes: negative Respiratory: negative Musculoskeletal:negative Neurological: negative Behavioral/Psych: negative Allergic/Immunologic: negative Objective General: Well sounding CPAP Compliance Information (06/04-07/03/20): Fixed settin cmH2O % days with device use =87% Average use = 5 hours and 33 min Time in large leak 95th percentile: 17.5 min Average AHI = 2.4/hr Assessment & Plan Howie is a 54 year old male who has completed a telemedicine encounter regarding: ASSESSMENT: 1.??Severe obstructive sleep apnea on PSG 10/10/19 in [place]?? 2. CPAP at the fixed pressure??of 12 cmH2O is effective in eliminating obstructive events. 3. CPAP Adherence: ??[x]??? Good (> 70% of the nights and average use > 4 hours/night) []??? Poor (< 70% of the nights and/or average use < 4 hours/night 4. Pulmonary hypertension (idopathic vs long standing MIRELLA)??. 5.??Recent cardiac cath no blockage but showed??PAD 30 mmHg 6??Shortness of breath, following with pulmonology 7. Obesity - interval weight loss, s/p gastric bypass in 07/2020?? 8. History of chronic respiratory failure with suspected obesity hypoventilation syndrome, 3L??oxygen at night with CPAP.?? 9. Sleep onset and sleep maintenance insomnia PLAN: 1. Adjust CPAP to autotitration given interval weight loss s/p gastric bypass. Would recommend repeat PSG (Split) when wt is stable to re-assess need for CPAP, also to re-evaluate the hypoxia, may not need O2 with CPAP. Send new APAP order to DME today. 2. Will try melatonin for sleep onset; ambien causing daytime drowsiness. 3. Follow up in 3 months or sooner if needed. Sunshine Mayo DO documented in this encounter Plan of Treatment Not on file documented as of this encounter Visit Diagnoses Diagnosis MIRELLA (obstructive sleep apnea)- Primary Obstructive sleep apnea (adult) (pediatric) Sleep related hypoxia Idiopathic sleep related nonobstructive alveolar hypoventilation Insomnia, unspecified type documented in this encounter Care Teams Top Lift Cutter Relationship Specialty Start Date End Date Natasha Bates PA-C [address] [place] [phone] PCP - General 03/21/19 06/20/23 documented as of this encounter
--- OUTSIDE RECORDS SUMMARY | 2024-05-22 05:41 | XMS_ITS | Encounter Summary ---
Author Organization [facility] Health Address [address] [facility] [address] Care Team Providers Care Superintendent Transportation Name Role Phone Natasha Bates PA-C Primary Care Provider + Encounter Details Date Type Department Care Team (Late st Contact Info) Description 02/12/2021 1:40 PM CDT Office Visit [facility] [id number] [place] [address] Muriel Moreno MD [address] [place] [address] Hyperkalemia (Primary Dx) Social History Tobacco Use Types Packs/Day Years [...] Sign Reading Time Taken Comments Blood Pressure 108/72 02/12/2021 1:44 PM CDT Pulse 61 02/12/2021 1:44 PM CDT Temperature 36.6 ??C (97.8 ??F) 02/12/2021 1:44 PM CD T Respiratory Rate - - Oxygen Saturation 97% 02/12/2021 1:44 PM CDT Inhaled Oxygen Concentration - - Weight 133.4 kg (294 lb) 02/12/2021 1:44 PM CDT Height 182.9 cm (6') 02/12/2021 1:44 PM CDT Body Mass Index 39.87 02/12/2021 1:44 PM CDT documented in this encounter Functional [...] No 11/21/2020 documented as of this encounter Patient Instructions * Patient Instructions* Muriel Moreno MD - 02/12/2021 2:13 PM CDT Stop carvedilol Get a blood test to recheck potassium. Reach out to you kidney doctor Follow up in 1 month to check on blood pressure (with Berenice). In the mean time keep a blood pressure log at home. Follow up with me in 6 months documented in this encounter Progress Notes * Muriel Moreno MD - 02/12/2021 1:40 PM CDT Images from the original note were not included. HPI: This a follow up for Mr. Delaney For ongoing evaluation of chest pain and HFpEF. Since 05/2019 - has had ischemic eval for CP with breana scan stress - normal. LHC also normal coronaries but increasedfilling pressures. Post gastric sleeve surgery Fall at home 11/2020 - admitted at [facility]. Pt thinks he had LOC. Recent BPs have been lower and HR also lower - this was the case also during bladder surgery. Review of Systems: History obtained from the patient Negative after 10 pt. system review except for what is already noted in the HPI. Medications (reviewed with patient): Current Outpatient Medications Medication Sig Dispense Refill ??? acetaminophen (TYLENOL) 325 MG tablet Take 650 mg by mouth ??? atorvastatin (LIPITOR) 40 MG tablet every 24 hours ??? CALCIUM PO ??? carvedilol (COREG) 12.5 MG tablet TAKE 1 TABLET BY MOUTH TWICE DAILY WITH THE MORNING AND EVENING MEAL 180 tablet 2 ??? Cyanocobalamin (B-12 PO) ??? furosemide (LASIX) 40 MG tablet Take 20 mg by mouth once daily ??? gabapentin (NEURONTIN) 100 MG capsule Take 200 mg by mouth once daily ??? Multiple Vitamin (DAILY-RAKESH) TABS Take 1 tablet by mouth once daily No current facility-administered medications for this visit. Physical Exam BP 108/72 Pulse 61 Temp 97.8 ??F (36.6 ??C) (Temporal) Ht 6' (1.829 m) Wt 294 lb (133.4 kg) SpO2 97% BMI 39.87 kg/m2 General: NAD HEENT: Mucous membranes are moist. CARDS: Regular rate and rhythm. Normal S1/S2. No gallops. No high-grade murmurs.No JVD. PULM: Clear to auscultation bilaterally Abdomen: Nontender Extremities: No edema. Neuro: AAO x 3. No focal deficits. Skin: no rashes on any exposed skin areas. Data: CBC: Recent Labs Component Name 11/21/20 0144 11/20/20 0600 08/18/20 1659 WBC 10.4 11.0* 12.7* RBC 4.27* 4.28* 4.60 HGB 13.1 12.9 13.7 HCT 39.3 39.9 41.6 BMP: Recent Labs Component Name 11/21/20 0144 11/20/20 0600 09/22/20 1343 02/13/20 1416 02/04/20 0518 NA 141 141 - - 136 CL 103 101 - - 96* CO2 31* 31* 28 - 34* BUN 26 29* 26* - 28* CREATININE 1.32* 1.66* 1.35* - 1.4* CALCIUM 8.5 8.6 9.3 - 8.9 - = values in this interval not displayed. Magnesium: No results for input(s): MG in the last 03495 hours. Phosphorus: Recent Labs Component Name 09/22/20 1343 08/18/20 1659 12/26/19 1507 PHOS 3.2 3.7 3.9 Coagulation: Recent Labs Component Name 11/20/20 0600 11/20/20 0547 12/14/19 0745 11/05/19 0436 11/05/19 0436 PT 13.9 - 13.1 - 13.6 INR 1.1 1.1 1.0 - 1.1 - = values in this interval not displayed. Cardiac profile: Recent Labs Component Name 11/20/20 1342 11/20/20 1005 11/20/20 0600 02/01/20 2014 11/03/19 2337 06/11/19 0556 06/11/19 0215 06/11/19 0049 06/10/19 2257 TROPONINI 0.016 0.027 0.017 0.017 0.013 0.013 0.018 0.017 - 0.024 0.020 BNP - 193* - 124* 328* - 225* - - Cholesterol: Recent Labs Component Name 11/20/20 1342 07/24/19 1304 06/12/19 0315 CHOL 95 110 129 Triglycerides: Recent Labs Component Name 11/20/20 1342 07/24/19 1304 06/12/19 0315 TRIG 61 63 72 HDL: Recent Labs Component Name 11/20/20 1342 07/24/19 1304 06/12/19 0315 HDL 34* 37* 39* LDL: Recent Labs Component Name 11/20/20 1342 07/24/19 1304 06/12/19 0315 LDLCALC 49 60 76 HgbA1c: Recent Labs Component Name 11/20/20 0600 07/05/19 1232 HGBA1C 5.4 5.7* ECHo 11/2020 Technically difficult/suboptimal echocardiogram. Left ventricular systolic function is hyperdynamic with an ejection fraction of 75-80%. The left ventricular diastolic function is normal, consistent with normal left ventricle filling pressures. Normal right ventricular systolic function. No significant valvular dysfuntion. Mild pulmonary hypertension, estimated pulmonary arterial systolic pressure is 37 mmHg. There is no evidence of ASD/PFO by color Doppler and bubble study interrogation LHC/RHC HEMODYNAMIC FINDINGS: ?? Pressures: LV: 116/24 mmHg LVEDP: 24 mmHg Aorta: 100/64 mmHg with MAP of 80 mmHg RA: 15 mmHg RV: 34/14 mmHg RVEDP: 14 mmHg PA: 36/23 mmHg Mean PA: ??30 mmHg PCWP: ??unable to wedge further. ? Hb: 11.5 g/dl ? O2 saturation: RA O2 saturation: 66 on room air PA O2 sauration: 66 on room air Arterial O2 saturation: ??90 on room air ? Cardiac output: 8.98 L/min Cardiac index: 3.12 L/min/m2 ? Transpulmonary gradient: 6 mmHg Pulmonary vascular resistance: ??0.67 Lockett units ?? ANGIOGRAPHY: i. Left main: Patent with no angiographic disease. ii. LAD: Patent LAD and its OM branches with no angiographic disease. Wraps around the apex. iii. LCx: Patent LCx and marginal branches. iv. RCA: Non-dominant RCA that is a patent vessel and provides RPDA. ?? Most recent echo: 05/2019 The right atrium is mildly enlarged. The [...] ventricle filling pressures. No significant valvular abnormalities. Myocardial perfusion 05/2019 Impression: 1. No evidence of myocardial infarction or stress-induced ischemia. 2. Normal left ventricular wall motion and thickening. 3. The calculated left ventricular ejection fraction of 71%. Impression and Plan: 1. HFpEF 2. HTN, not controlled 3. Obesity 4. Likely obesity hypoventilation and sleep apnea 5. Family hx of primary pulmonary HTN; Patient has enlarged PA on CT 6. Recently Fall Stop carvedilol; Recently Fall may be in setting of Low BP and weight loss Get a blood test to recheck potassium. Reach out to you kidney doctor Follow up in 1 month to check on blood pressure (with Berenice). In the mean time keep a blood pressure log at home. Follow up with me in 6 months Muriel Moreno MD, MD Associate Faculty [facility] 02/12/2021 Addendum: BMP with normal K; Cr at baseline documented in this encounter Plan of Treatment [...] last dose documented as of this encounter Procedures Procedure Name Priority Date/Time Associated Diagnosis Comments BASIC METABOLIC PANEL (CALCIUM TOTAL) Routine 02/17/2021 11:49 AM CDT Hyperkalemia documented in this encounter Results * (ABNORMAL) BASIC METABOLIC PANEL (CALCIUM TOTAL) (02/17/2021 11:49 AM CDT) Glucose 87 65 - 99 mg/dL [facility] [...] Resulting Agency Comment Lab Testing performed at: [facility] [address] ??[facility] [id number] Muriel Moreno MD LAB - CHEMISTRY HERNANDEZ [facility] INSURANCE BILL [address] [place] [address] documented in this encounter Visit Diagnoses Diagnosis Hyperkalemia- Primary Hyperpotassemia documented in this encounter Care Teams Superintendent Transportation Relationship Specialty Start Date End Date Natasha Bates PA-C [address] [place] [address] PCP - General 03/21/19 06/20/23 documented as of this encounter
--- OUTSIDE RECORDS SUMMARY | 2024-05-22 05:41 | XMS_ITS | Encounter Summary ---
Author Organization [facility] Health Address [address] [place] [address] Care Team Providers Care Hand Cloth Folder Name Role Phone Natasha Bates PA-C Primary Care Provider + Reason for Visit * Reason Comments Establish Care post MRI cervical sp inal stenosis Encounter Details Date Type Department Care Team (Latest Contact Info) Description 03/16/2021 11:45 AM CDT Office Visit [facility] Neurosurgery [facility] [facility], [address] [place] [address] Se Vargas MD [address] [place] [address] [place] [phone] Lumbar radiculopathy (Primary Dx) Social History Tobacco Use Types [...] Sign Reading Time Taken Comments Blood Pressure 132/74 03/16/2021 11:58 AM CDT Pulse 69 03/16/2021 11:58 AM CDT Temperature 36.5 ??C (97.7 ??F) 03/16/2021 11:58 AM C DT Respiratory Rate - - Oxygen Saturation 94% 03/16/2021 11:58 AM CDT Inhaled Oxygen Concentration - - Weight 130.2 kg (287 lb) 03/16/2021 11:58 AM CDT Height 182.9 cm (6') 03/16/2021 11:58 AM CDT Body Mass Index 38.92 03/16/2021 11:58 AM CDT documented in this encounter Functional [...] this encounter Patient Instructions * Patient Instructions* Qian Mercedes RN - 03/16/2021 12:13 PM CDT Recommend following up with pain management for spinal cord stimulator trial -follow up with Dr. Vargas if you have benefit from trial To schedule an appointment please call [phone] To reach the [place] office please call [phone] For any nursing or surgery questions please call Qian RN at [phone] documented in this encounter Progress Notes * Se Vargas MD - 03/16/2021 12:28 PM CDT NAME: HOWIE DELANEY : 1965 AGE: 55 PROVIDER: Se Vargas MD SEX: M DATE: 03/16/2021 I had the pleasure of seeing Mr. Delaney in the neurosurgery office today. HISTORY OF PRESENT ILLNESS: Mr. Delaney is a very pleasant 55-year-old gentleman with a very complex history from a pain management standpoint. The patient has chronic axial low back pain. He also has chronic axial neck pain. He was diagnosed with a left ulnar neuropathy in the past, according to him from a work-related injury. He reports that the symptoms of left ulnar neuropathy seem to have significantly improved to the point that he is overall asymptomatic. He says that the back pain is his main problem. He has already tried some conservative treatment; however, he has not seen pain management yet. Past Medical History: Diagnosis Date ??? CKD (chronic kidney disease) ??? HFrEF (heart failure with reduced ejection fraction) ??? HLD (hyperlipidemia) ??? HTN (hypertension) ??? MIRELLA (obstructive sleep apnea) 05/13/2019 Past Surgical History: Procedure Laterality Date ??? BARIATRIC SURGERY, GASTRIC gastric sleeve ??? BLADDER PROCEDURE/SURGERY arteficial EUS Family History Problem Relation Name Age of Onset ??? Other Mother pulmonary hypertension ??? Other Nephew pulmonary hypertension Social History Socioeconomic History ??? Marital status: Single Spouse name: Not on file ??? Number of children: Not on file ??? Years of education: Not on file ??? 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 Smoking status: Never Smoker ??? Smokeless tobacco: Never Used Vaping Use ??? Vaping Use: Never used Substance and Sexual Activity ??? Alcohol use: Yes Comment: 2 drinks per month ??? Drug use: Never ??? Sexual activity: Never Other Topics Concern ??? Not on file Social History Narrative Merged History Encounter Social Determinants of Health Financial Resource Strain: Not on file Food Insecurity: Not on file Transportation Needs: Not on file Physical Activity: Not on file Stress: Not on file Social Connections: Not on file Intimate Partner Violence: Not on file Housing Stability: Not on file Current Medications acetaminophen (TYLENOL) 325 MG tablet Take 650 mg by mouth allopurinol (ZYLOPRIM) 100 MG tablet atorvastatin (LIPITOR) 40 MG tablet every 24 hours CALCIUM PO cephalexin (KEFLEX) 500 MG capsule Cyanocobalamin (B-12 PO) FLUoxetine (PROZAC) 20 MG capsule TAKE 1 CAPSULE BY MOUTH EVERY DAY IN THE MORNING furosemide (LASIX) 40 MG tablet Take 20 mg by mouth as needed gabapentin (NEURONTIN) 100 MG capsule Take 200 mg by mouth once daily gabapentin (NEURONTIN) 600 MG tablet Multiple Vitamin (DAILY-RAKESH) TABS Take 1 tablet by mouth once daily oxybutynin (DITROPAN) 5 MG tablet TAKE 1 TABLET BY MOUTH TWICE DAILY DIRECTED patiromer (VELTASSA) 8.4 g packet Take 1 (one) packet by mouth daily with food Measure 1/3 cup of water. Pour half into a glass, add Veltassa and stir. Add the remaining half and stir. The mixture will look cloudy. Add more water to the mixture as needed for desired consistency. Drink immediately. If powder remains in the glass after drinking, add more water, stir and drink immediately. Repeat asneeded. Avoid taking other oral medications 3 hours before or after. solifenacin (VESICARE) 10 MG tablet Take 10 mg by mouth once daily PHYSICAL EXAMINATION: The patient is in mild discomfort, but in no acute distress. He has several myofascial tender points on palpation of the paraspinal muscles in the posterior lumbar and posteriorcervical region. Straight leg raise test is negative bilaterally. Negative Tinel on palpation of the left ulnar nerve at the cubital tunnel. Full strength in the upper limbs for all tested muscles. Negative Spurling, negative Lhermitte. REVIEW OF DIAGNOSTIC STUDIES: The patient had an MRI of the lumbar spine performed on 03/12/2021 that revealed multilevel degenerative disk disease with some degree of bilateral foraminal stenosis, worse at the level of L4-L5 on the left side. MEDICAL DECISION MAKING: I explained to the patient that he presents with a challenging condition with chronic axial low back pain that seems to be his main problem. I recommended him to continue conservative treatment for that. I referred him to pain management for evaluation of possible injections. If the patient fails injections, he may have the option of proceeding with a trial with a dorsal column stimulation system. Regarding his ulnar neuropathy, I released him to return to his regular level of physical activities. Thank you for allowing us to participate in the care of your patient. [email or web address] Doc ID: [id number] Voice Job ID: [id number] cc: documented in this encounter Plan of Treatment Not on file documented as of this encounter Goals Goal Patient Goal Type Associated Problems Recent Progress Patient-Stated? Author Medication Management General On track( 021 3:13 PM CDT) Zoraida Conde RN Note: Expected end date: ongoing Interventions: Take all medications as prescribed Let your doctor know right away about any changes in your medications Make sure to request a refill of your medication at least one week prior to your last dose documented as of this encounter Visit Diagnoses Diagnosis Lumbar radiculopathy- Primary Thoracic or lumbosacral neuritis or radiculitis, unspecified documented in this encounter Care Teams Hand Cloth Folder Relationship Specialty Start Date End Date Natasha Bates PA-C [address] [place] [phone] PCP - General 03/21/19 06/20/23 documented as of this encounter
--- OUTSIDE RECORDS SUMMARY | 2024-05-22 05:41 | XMS_ITS | Encounter Summary ---
Author Organization [facility] Health Address [address] [facility] [place] [address] Care Team Providers Care Treater Name Role Phone Natasha Bates PA-C Primary Care Provider + Encounter Details Date Type Department Care Team (Late st Contact Info) Description 05/26/2021 Orders Only [facility] - Nephrology [address] [place] [address], [place] [address] Gerardo Zavala MD [address] [place] [address] [place] [phone] Hyperkalemia ; Stage 3a chronic kidney disease (HCC); Essential hypertension Social History Tobacco Use Types Packs/Day Years [...] as of this encounter Visit Diagnoses Diagnosis Hyperkalemia- Primary Hyperpotassemia Stage 3a chronic kidney disease (HCC) Essential hypertension documented in this encounter Care Teams Treater Relationship Specialty Start Date End Date Natasha Bates PA-C [address] [place] [phone] PCP - General 03/21/19 06/20/23 documented as of this encounter
--- OUTSIDE RECORDS SUMMARY | 2024-05-22 05:41 | XMS_ITS | Encounter Summary ---
Author Organization [facility] Address [address] [place] [address] Care Team Providers Care Loan Officer Assistant Name Role Phone Natasha Bates PA-C Primary Care Provider + Reason for Visit * Reason Comments Chest Pain Pt states chest pain began this am. Pt states he also had a headache, left arm pain that he described at having a weight on it. Pt is followed by a mechanic helper and states he called them last week due to not feeling well. Pt states discomfort has a waxing waning presentation Encounter Details Date Type Department Care Team (Late st Contact Info) Description 06/19/2023 10:53 PM AGRICULTURAL ECONOMIST - 06/19/2023 11:06 PM [facility] Emergency [facility] EMERGENCY DEPARTMENT [address] [place] [phone] Chest pain, unspecified type Discharge Disposition: Left Against Medical Advice/Discontinued Care Social History Tobacco Use Types Packs/Day Years [...] Sign Reading Time Taken Comments Blood Pressure 143/84 06/19/2023 8:34 PM AGRICULTURAL ECONOMIST Pulse 54 06/19/2023 8:34 PM AGRICULTURAL ECONOMIST Temperature 36.7 ??C (98 ??F) 06/19/2023 8:34 PM AGRICULTURAL ECONOMIST Respiratory Rate 18 06/19/2023 8:34 PM AGRICULTURAL ECONOMIST Oxygen Saturation 100% 06/19/2023 8:34 PM AGRICULTURAL ECONOMIST Inhaled Oxygen Concentration - - Weight 115.7 kg (255 lb) 06/19/2023 3:09 PM AGRICULTURAL ECONOMIST Height 185.4 cm (6' 1 ) 06/19/2023 3:09 PM AGRICULTURAL ECONOMIST Body Mass Index 33.64 06/19/2023 3:09 PM AGRICULTURAL ECONOMIST documented in this encounter Functional Status Functional [...] No 11/21/2020 documented as of this encounter Medications at Time of Discharge Medication Sig Dispensed Refills Start Date End Date acetaminophen (TYLENOL) 325 MG tablet Take 2 (two) tablets by mouth 11/07/2019 allopurinol (ZYLOPRIM) 100 MG tablet 03/03/2021 atorvastatin (LIPITOR) 40 MG tablet every 24 hours CALCIUM PO Cyanocobalamin (B-12 PO) furosemide (LASIX) 40 MG tablet Take 0.5 (one-half) tablet by mouth every other day as needed 05/13/2020 gabapentin (NEURONTIN) 600 MG tablet 03/05/2021 loratadine (Claritin) 10 MG tablet Take 1 (one) tablet by mouth once daily as directed. 03/03/2023 Multiple Vitamin (DAILY-RAKESH) TABS Take 1 tablet by mouth once daily FLUoxetine (PROZAC) 20 MG capsule TAKE 1 CAPSULE BY MOUTH EVERY DAY IN THE MORNING 02/26/2021 06/21/2023 patiromer (VELTASSA) 16.8 g packet Take 1 [...] oral medications 3 hours before or after. Store packets in refrigerator. 30 packet 5 07/06/2021 06/21/2023 triamcinolone acetonide (KENALOG) 0.025 % creamIndications:Venou s stasis dermatitis of left lower extremity Apply to left nelson twice daily when inflamed. 30 days supply. 80 g 2 05/06/2021 06/21/2023 documented as of this encounter ED Notes * Marely Vance - 06/19/2023 10:52 PM CST Pt stated he is leaving, form signed. CULTURAL ECONOMIST * Nena Ro PA-C - 06/19/2023 3:41 PM CST Medical Screening Exam 06/19/2023 3:41 PM Provider contact with the patient Howie Delaney CC: Chest Pain (Pt states chest pain began this am. Pt states he also had a headache, left arm painthat he described at having a weight on it. Pt is followed by a mechanic helper and states he called them last week due to not feeling well) Chief complaint narrative was entered by triage nurse, not by provider Provider in Triage HPI: Howie Delaney is a 57 year old male PMH as noted below who presents with L side CP this AM. Constant but occasionally increases in intensity. No cough or SOB. Takes Lasix prn and last took 3 days ago w/ relief of swelling. No fever or chills, normal urine and BMs. Limited Chart History: Past Medical History: Diagnosis Date ??? CKD (chronic kidney disease) ??? HFrEF (heart failure with reduced ejection fraction) ([facility]) ??? HLD (hyperlipidemia) ??? HTN (hypertension) ??? MIRELLA (obstructive sleep apnea) 05/13/2019 Past Surgical History: Procedure Laterality Date ??? BARIATRIC SURGERY, GASTRIC gastric sleeve ??? BLADDER PROCEDURE/SURGERY arteficial EUS No current facility-administered medications for this encounter. Current Outpatient Medications Medication Sig Dispense Refill ??? acetaminophen (TYLENOL) 325 MG tablet Take 650 mg by mouth ??? allopurinol (ZYLOPRIM) 100 MG tablet ??? atorvastatin (LIPITOR) 40 MG tablet every 24 hours ??? CALCIUM PO ??? Cyanocobalamin (B-12 PO) (Patient not taking: Reported on 03/18/2022) ??? FLUoxetine (PROZAC) 20 MG capsule TAKE 1 CAPSULE BY MOUTH EVERY DAY IN THE MORNING (Patient nottaking: Reported on 03/18/2022) ??? furosemide (LASIX) 40 MG tablet Take 20 mg by mouth every other day as needed ??? gabapentin (NEURONTIN) 600 MG tablet ??? Multiple Vitamin (DAILY-RAKESH) TABS Take 1 [...] oral medications 3 hours before or after. Store packets in refrigerator. (Patient not taking: Reported on 03/18/2022) 30 packet 5 ??? triamcinolone acetonide (KENALOG) 0.025 % cream Apply to left nelson twice daily when inflamed. 30 days supply. (Patient not taking: Reported on 03/18/2022) 80 g 2 Allergies Allergen Reactions ??? Aspirin Unknown hematuria PCP: Natasha Bates PA-C (Above may be pending completion) Vital Signs reviewed in Triage BP 167/90 Pulse 60 Temp 97.6 ??F (36.4 ??C) Resp 20 Ht 1.854 m (6' 1 ) Wt 115.7 kg (255 lb) SpO2 97% Pertinent Physical Findings: Constitutional: vitals as above, WDWN Head: Head normocephalic, atraumatic Eyes: conjunctiva clear ENT: no rhinorrhea Neck: neck supple, no nuchal rigidity Resp: respirations even and unlabored, lungs clear bilaterally CV: Heart RRR, no m/c/r/g Abd: nondistended Skin: warm, dry,color normal for ethnicity MSK: ambulatory, moves all extremities Neuro: A&O x 3, CN 2-12 grossly intact bilat Psych: Normal affect Complete physical exam is limited due to patient sitting in up right position in chair MDM: I have reviewed all lab and imaging resulted ordered during this visit and available at the time ofthis note. Triage notes and available nursing notes reviewed. Previous medical record reviewed whenavailable. Management options include but not limited to: physical exam, laboratory testing, discussion with other providers. PLAN Diagnostic tests ordered: No orders of the defined types were placed in this encounter. MEDICATIONS FOR CURRENT ENCOUNTER: ?? SCHEDULED MEDICATIONS: ?? No current facility-administered medications for this encounter. ?? CONTINUOUS MEDICATIONS: ?? No current facility-administered medications for this encounter. ?? PRN MEDICATIONS: ?? No current facility-administered medications for this encounter. Based on the Medical Screening Exam performed and diagnostic tests at this time, further evaluationis indicated and will be performed. Patient will be transferred to a main ED room when one is available and care will be transferred to ER provider. Nena Ro PA-C CULTURAL ECONOMIST documented in this encounter Plan of Treatment [...] Procedure Name Priority Date/Time Associated Diagnosis Comments CARDIAC EKG ORDER 06/21/2023 3:1 3 PM AGRICULTURAL ECONOMIST EKG 12-LEAD Routine 06/19/2023 6:07 PM AGRICULTURAL ECONOMIST Chest pain, unspecified type TROPONIN-I HIGH SENSITIVE REFLEX 1HOUR Timed 06/19/2023 5:58 PM AGRICULTURAL ECONOMIST XR CHEST 1VW PORTABLE STAT 06/19/2023 4:13 PM AGRICULTURAL ECONOMIST Chest pain, unspecified type TROPONIN-I HIGH SENSITIVE BASELINE + 1HR STAT 06/19/2023 3:57 PM AGRICULTURAL ECONOMIST CBC W AUTO DIFFERENTIAL STAT 06/19/2023 3:57 PM AGRICULTURAL ECONOMIST B-TYPE NATRIURETIC PEPTIDE STAT 06/19/2023 3:57 PM AGRICULTURAL ECONOMIST COMPREHENSIVE METABOLIC PANEL STAT 06/19/2023 3:57 PM AGRICULTURAL ECONOMIST SARS-COV-2 (COVID-19)+INFLU A+B PCR RAPID STAT 06/19/2023 3:56 PM AGRICULTURAL ECONOMIST documented in this encounter Results * CARDIAC EKG ORDER (06/21/2023 3:13 PM AGRICULTURAL ECONOMIST) Narrative 06/21/2023 3:13 PM AGRICULTURAL ECONOMIST Ordered by an unspecified provider. Scanned Document CARDIAC SERVICES ORD ERABLES * EKG 12-LEAD (06/19/2023 6:07 PM AGRICULTURAL ECONOMIST) Ventricular Rate 55 BPM [facility] MUSE Atrial Rate [address] [facility] MUSE P-R Interval [address] [facility] M[facility] QRS Duration ms [address] [facility] MUSE Q-T Interval ms [address] [facility] MUSE QTC Calculation (Bezet) [address] [facility] M[facility] Calculated P [place] [address] [facility] MUSE Calculated R [place] [address] [facility] MUSE Calculated T [place] [address] [facility] M[facility] Interpretation EKG SINUS BRADYCARDIA OTHERWISE NORMAL ECG NO PREVIOUS ECGS AVAILABLE [place] ([id number]) on 06/21/2023 9:49:[address] [facility] MUSE 06/19/2023 6:07 PM AGRICULTURAL ECONOMIST 06/21/2023 9:49 PM AGRICULTURAL ECONOMIST Nena Ro PA-C ECG ORDERABLES [facility] MUSE * TROPONIN-I HIGH SENSITIVE REFLEX 1HOUR (06/19/2023 5:58 PM AGRICULTURAL ECONOMIST) Troponin I High Sensitive 9 <=35 ng/L 06/19/2023 6:[address] [facility] Delta Troponin I HS 06/19/2023 6:39 PM AGRICULTURAL ECONOMIST [facility] Comment:Delta value intentio william not calculated. Baseline to 1 hour specimen collection interval exceeded. Blood BLOOD SPECIMEN / Unknown Venipuncture / Unknown 06/19/2023 5:58 PM AGRICULTURAL ECONOMIST 06/19/2023 6:08 PM AGRICULTURAL ECONOMIST Nena Ro PA-C LAB - CHEMISTRY OR DERABLES [facility] [address] [place] [phone], [facility] [phone] * XR CHEST 1VW PORTABLE (06/19/2023 4:13 PM AGRICULTURAL ECONOMIST) Anatomical Region Laterality Modality Chest Radiographic Maribel ging 06/19/2023 7:40 PM AGRICULTURAL ECONOMIST Impressions 06/20/2023 12:03 AM AGRICULTURAL ECONOMIST IMPRESSION: No acute pulmonary process. Report dictated by Evan Harrison MD, PhD (residential treatment staff). I, Brandin Mendez MD have personally reviewed and interpreted this examination/study. > Interpreting Provider: Brandin Mendez MD on 06/20/2023 12:03 AM Narrative 06/20/2023 12:03 AM AGRICULTURAL ECONOMIST PROCEDURE: ??XR CHEST 1VW PORTABLE, DATE/TIME OF EXAM: ??06/19/2023 4:13 PM, LOCATION ??[facility] INDICATION: R07.9: Chest pain, unspecified type ADDITIONAL CLINICAL INFORMATION: Ordering Provider Reason For Exam: ??r/o acute process Technologist Note: Additional: COMPARISON: None. FINDINGS: There is no focal consolidation, pleural effusion, or pneumothorax. The mediastinal and cardiac contours are normal. No acute osseous abnormality is seen. Procedure Note Brandin Mendez MD - 06/20/2023 PROCEDURE: XR CHEST 1VW PORTABLE, DATE/TIME OF EXAM: 06/19/2023 4:13PM, LOCATION [facility] INDICATION: R07.9: Chest pain, unspecified type ADDITIONAL CLINICAL INFORMATION: Ordering Provider Reason For Exam: r/o acute process Technologist Note: Additional: COMPARISON: None. FINDINGS: There is no focal consolidation, pleural effusion, or pneumothorax. The mediastinal and cardiac contours are normal. No acute osseousabnormality is seen. IMPRESSION: No acute pulmonary process. Report dictated by Evan Harrison MD, PhD (residential treatment staff). I, Brandin Mendez MD have personally reviewed and interpreted this examination/study. > Interpreting Provider: Brandin Mendez MD on 06/20/2023 12:03 AM Nena Ro PA-C DIAGNOSTIC IMAGING ORDERABLES * TROPONIN-I HIGH SENSITIVE BASELINE + 1HR (06/19/2023 3:57 PM AGRICULTURAL ECONOMIST) Troponin I High Sensitive 8 <=35 ng/L 06/19/2023 5:01 PM AGRICULTURAL ECONOMIST [facility] Blood BLOOD SPECIMEN / Unknown Venipuncture / Unknown 06/19/2023 3:57 PM AGRICULTURAL ECONOMIST 06/19/2023 4:27 PM AGRICULTURAL ECONOMIST Nena Ro PA-C LAB - CHEMISTRY OR DERABLES Performing Organization Address [facility]/State/ZIP Co de Phone Number [facility] [address] [place] [phone], [facility] [phone] * (ABNORMAL) B-TYPE NATRIURETIC PEPTIDE (06/19/2023 3:57 PM AGRICULTURAL ECONOMIST) BNP 187(H) <100 pg/mL 06/19/2023 5:00 PM AGRICULTURAL ECONOMIST [facility] Comment: A decision threshold of 100 [...] Unknown Venipuncture / Unknown 06/19/2023 3:57 PM AGRICULTURAL ECONOMIST 06/19/2023 4:27 PM AGRICULTURAL ECONOMIST Nena Ro PA-C LAB - CHEMISTRY OR DERABLES Performing Organization Address [facility] Co de Phone Number [facility] [address] [place] [address], [facility] [phone] * (ABNORMAL) COMPREHENSIVE METABOLIC PANEL (06/19/2023 3:57 PM AGRICULTURAL ECONOMIST) BUN 23 7 - 26 mg/dL 06/19/2023 4:57 PM AGRICULTURAL ECONOMIST [facility] Creatinine 1.36(H) 0.71 - 1.16 mg/dL 06/19/2023 4:57 PM [facility] Sodium 142 136 - 145 mmol/L 06/19/2023 4:57 PM [facility] Potassium 4.2 3.5 - 4.5 mmol/L 06/19/2023 4:57 PM [facility] Chloride 106 98 - 107 mmol/L 06/19/2023 4:57 PM [facility] CO2 28 22 - 29 mmol/L 06/19/2023 4:57 PM [facility] Glucose 88 70 - 115 mg/dL 06/19/2023 4:57 PM [facility] Calcium 9.2 8.4 - 10.2 mg/dL 06/19/2023 4:57 PM [facility] Protein Total 7.5 6.0 - 8.3 g/dL 06/19/2023 4:57 PM [facility] Albumin 3.4 3.4 - 5.0 g/dL 06/19/2023 4:57 PM [facility] Bilirubin Total 0.5 0.2 - 1.2 mg/dL 06/19/2023 4:57 PM [facility] Alkaline Phosphatase 105 40 - 150 U/L 06/19/2023 4:57 PM [facility] ALT 18 5 - 55 U/L 06/19/2023 4:57 PM [facility] AST 24 5 - 34 U/L 06/19/2023 4:57 PM [facility] Anion Gap 8 6 - 16 06/19/2023 4:57 PM [facility] BUN/Creatinine Ratio 17 7 - 23 06/19/2023 4:57 PM [facility] Osmolality Calculated 297(H) 275 - 295 mOsm/kg 06/19/2023 4:57 PM [facility] Albumin/Globulin Ratio 0.8(L) 1.1 - 2.3 06/19/2023 4:57 PM [facility] eGFR by CKD-EPI 60(L) >=90 mL/min/1.7 3 m2 06/19/2023 4:57 PM [facility] Blood BLOOD SPECIMEN / Unknown Venipuncture / Unknown 06/19/2023 3:57 PM [facility] 06/19/2023 4:27 PM AGRICULTURAL ECONOMIST Nena Ro PA-C LAB - CHEMISTRY OR DERABLES [facility] [address] [place] [address], [facility] [phone] * (ABNORMAL) CBC W AUTO DIFFERENTIAL (06/19/2023 3:57 PM AGRICULTURAL ECONOMIST) WBC 8.5 4.0 - 10.7 x10E9/L 06/19/2023 4:31 PM [facility] RBC Count 4.44 4.30 - 5.80 x10E12/L 06/19/2023 4:31 PM [facility] Hemoglobin 12.7(L) 13.3 - 17.5 g/dL 06/19/2023 4:31 PM [facility] Hematocrit 39.6 38.7 - 51.1 % 06/19/2023 4:31 PM [facility] MCV 89.2 80.0 - 98.0 fL 06/19/2023 4:31 PM [facility] MCH 28.6 26.7 - 33.6 pg 06/19/2023 4:31 PM [facility] MCHC 32.1 31.7 - 36.3 g/dL 06/19/2023 4:31 PM [facility] RDW-CV 15.3(H) 11.3 - 14.8 % 06/19/2023 4:31 PM [facility] Platelet Count 233 150 - 420 x10E9/L 06/19/2023 4:31 PM [facility] MPV 11.7(H) 7.8 - 11.4 fL 06/19/2023 4:31 PM [facility] Neutrophil % 52.2 41.0 - 74.0 % 06/19/2023 4:31 PM [facility] Lymphocyte % 32.2 17.0 - 47.0 % 06/19/2023 4:31 PM [facility] Monocyte % 10.3 3.0 - 11.0 % 06/19/2023 4:31 PM [facility] Eosinophil % 4.5 0.0 - 7.0 % 06/19/2023 4:31 PM [facility] Basophil % 0.6 0.0 - 1.6 % 06/19/2023 4:31 PM [facility] Immature Granulocytes % 0.2 0.0 - 1.0 % 06/19/2023 4:31 PM [facility] Neutrophil Absolute 4.45 1.60 - 7.50 x10E9/L 06/19/2023 4:31 PM [facility] Lymphocyte Absolute 2.75 1.00 - 4.40 x10E9/L 06/19/2023 4:31 PM [facility] Monocyte Absolute 0.88 0.15 - 1.00 x10E9/L 06/19/2023 4:31 PM [facility] Eosinophil Absolute 0.38 0.00 - 0.60 x10E9/L 06/19/2023 4:31 PM [facility] Basophil Absolute 0.05 0.00 - 0.13 x10E9/L 06/19/2023 4:31 PM [facility] Blood BLOOD SPECIMEN / Unknown Venipuncture / Unknown 06/19/2023 3:57 PM AGRICULTURAL ECONOMIST 06/19/2023 4:27 PM AGRICULTURAL ECONOMIST Nena Ro PA-C LAB - HEMATOLOGY O RDERABLES Performing Organization Address City/State/[facility] Co de Phone Number [facility] [address] [place] [phone], [facility] [phone] * SARS-COV-2 (COVID-19)+INFLU A+B PCR RAPID (06/19/2023 3:56 PM AGRICULTURAL ECONOMIST) COVID-19 PCR Not detected Not detected 06/19/19 4:55 PM [facility] Influenza A Rapid JERARDO Not Detected Not Detected 06/19/2023 4:55 PM [facility] Influenza B JERARDO Rapid Not Detected Not Detected 06/19/2023 4:55 PM [facility] Microbiology SPECIMEN FROM NASOPHARYNGEAL STRUCTURE / Unknown Collection / Unknown 06/19/2023 3:56 PM AGRICULTURAL ECONOMIST 06/19/2023 4:11 PM AGRICULTURAL ECONOMIST Narrative [facility] - 06/19/2023 4:55 PM AGRICULTURAL ECONOMIST Influenza assay performed by [employer]. [...] acid amplification assay performance was validated by [facility]. This test has been [...] Nena Ro PA-C LAB - MICROBIOLOGY ORDERABLES Performing Organization Address City/State/[facility] Co de Phone Number [facility] [address] [place] [address], [facility] [phone] documented in this encounter Visit Diagnoses Diagnosis Chest pain, unspecified type documented in this encounter Care Teams Loan Officer Assistant Relationship Specialty Start Date End Date Natasha Bates PA-C [address] [place] [phone] PCP - General 03/21/19 06/20/23 documented as of this encounter
--- OUTSIDE RECORDS SUMMARY | 2024-05-22 05:41 | XMS_ITS | Encounter Summary ---
Author Organization [facility] Health Address [address] [place] [address] Care Team Providers Care Diesel Engine Tester Name Role Phone Natasha Bates PA-C Primary Care Provider + Reason for Visit * Reason Comments Establish Care Dov leg swelling Encounter Details Date Type Department Care Team (Late st Contact Info) Description 01/16/2021 10:45 AM CDT Office Visit [facility] Vascular Surgery [address] [place] [address]. [address] [place] [address] Summer Cid, BIOINFORMATICS SOFTWARE ENGINEER-[facility] [address] [facility] [address] [place] [address] Bilateral leg edema (Primary Dx); Lymphedema of both lower extremities; Chronic diastolic congestive heart failure (HCC); CRD (chronic renal disease), stage II Social History Tobacco Use Types Packs/Day Years [...] Sign Reading Time Taken Comments Blood Pressure 125/77 01/16/2021 10:51 AM CDT Pulse 61 01/16/2021 10:51 AM CDT Temperature 36.4 ??C (97.5 ??F) 01/16/2021 10:51 AM C DT Respiratory Rate 20 01/16/2021 10:51 AM CDT Oxygen Saturation - - Inhaled Oxygen Concentration - - Weight 140.2 kg (309 lb) 01/16/2021 10:51 AM CDT Height 182.9 cm (6') 01/16/2021 10:51 AM CDT Body Mass Index 41.91 01/16/2021 10:51 AM CDT documented in this encounter Functional [...] this encounter Patient Instructions * Patient Instructions* Summer Cdi, BIOINFORMATICS SOFTWARE ENGINEER-BOARD DESIGN ENGINEER - 01/16/2021 11:20 AM CDT Patient was given EVLT Brochure Wear compression stockings during the day, remove at bedtime- must be graduated medical grade compression stockings, 20-30mmHg or higher. DEXTER hose are not considered graduated compression. May wash by hand or place in machine on delicate cycle. Line dry only. Do not place in the dryer- this will break down the elastic in the stockings. Lotion to legs twice daily Leg elevation at or above level of the heart, when able Exercise such as walking will help the venous circulation. Biking and swimming are also good options. Anti-inflammatories for discomfort such as Aleve, Motrin/ibuprofen as needed. May also take Tylenolif you cannot tolerate NSAID's Ice to areas of discomfort, as needed May need referral to [facility] for lymphedema pump if cleared by your Nursing Admin Continue diuretic as ordered Varicose Vein Evaluation & Treatment 1. After today's visit, we will call you to schedule your venous reflux study. If you have not beencontacted within 1 week, please call Vascular office test scheduling at [phone]. A venous reflux study is a non-invasive, diagnostic test using an ultrasound to evaluate your veinsand establish whether or not you have venous reflux disease. Please drink plenty of non-caffeinatedbeverages(water or juice) starting 2-3 hours prior to ultrasound and DO NOT wear compression stockings the day of the test. 2. After you have completed the ultrasound, the office will contact you with results. If you have not heard from the office within 1 week, please call the office at the above numbers. If your test results confirm you have venous reflux disease and you desire treatment, there are several options that you may qualify for that may be covered by insurance. -EVLT(Endovenous Laser Vein Treatment) Heat is used to close the vein -Venaseal Adhesive glue seals the vein. Currently only approved for Medicare and [employer]/ patients. -Varithena(Foam Sclerotherapy) Solution is used to close the vein. -Surgery Ligation(tie off), Stripping(removal) or Ambulatory Micro Stab phlebectomy(surgical removal of varicose veins only) The Vascular Office will submit the information to your insurance company, after the appropriate time required to wear compression stockings. Each insurance company requirements differ. Once the pre-certification process has begun, it can take up to 1 month to obtain approval or denial. Please callBishnu Pratt at [phone] to check insurance status. Once your insurance company has authorized treatment, a [facility] Vascular Office staff member ([phone]) will contact you for scheduling and provide you with additional details. The procedures are performed in our [facility] office. The office will call in a script for Xanax for EVLT, and if you desire for Venaseal and Varithena. If you take Xanax, you will need to have someone drive you home. Compression Stockings Compression stockings may be purchased from the [facility] Vascular Surgery Office. You may also obtain a prescription for compression stockings to purchase through a medical supplier or online. We do not submit the purchase of stockings from the [facility] office to your insurance company. You may obtain a receipt of your purchase and submit it to your insurance company for possible reimbursement. Medical grade (20-30mmHg) thigh high compression stockings are required for 3 weeks following EVLT.These can be purchased on the day of the procedure for $30. documented in this encounter Progress Notes * Summer Cid APRN-CNS - 01/16/2021 11:45 AM CDT Images from the original note were not included. 01/16/2021 Howie Delaney 1965 Tylor Salazar MD No address on file Chief Complaint Patient presents with ??? Establish Care Dov leg swelling Patient reports the following: Howie Delaney is a 55 year old year old patient referred by PCP for evaluation of bilateral lower extremity venous problems/edema. PMH significant for significant for CKD, HTN, Obestiy, HLD, MIRELLA on CPAP and CHF. The patient reports the following: broken bones in leg right, aching or tiredness in thelegs bilateral, varicose veins bilateral, pain in legs bilateral, swelling in the legs bilateral, skin color changes bilateral, spider veins bilateral and interferes with activities of daily living. He denies history of DVT. Recently fell and sustained R fibular head fx- no surgical intervention. He also reports abdominal bloating. Family history of venous problems: Father: positive Patient is currently employed. 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 Functional Status Limitation of: Working, Walking, Climbing stairs and Bending/kneeling/stooping The Patient has been treated/evaluated with the following: Compression stockings without relief- 5+ years Exercise without relief- walks daily Anti-inflammatory medication without relief- only able to take Tylenol. No NSAID's due to CKD Leg elevation without relief Allergies Allergen Reactions ??? Aspirin Unknown hematuria Current Outpatient Medications Medication ??? albuterol HFA (PROAIR HFA) 108 (90 Base) MCG/ACT inhaler ??? allopurinol (ZYLOPRIM) 100 MG tablet ??? atorvastatin (LIPITOR) 40 MG tablet ??? CALCIUM PO ??? carvedilol (COREG) 12.5 MG tablet ??? Cyanocobalamin (B-12 PO) ??? furosemide (LASIX) 40 MG tablet ??? gabapentin (NEURONTIN) 300 MG capsule ??? Multiple Vitamin (DAILY-RAKESH) TABS ??? traMADol (ULTRAM) 50 MG tablet No current facility-administered medications for this visit. Past Medical History: Diagnosis Date ??? CKD (chronic kidney disease) ??? HFrEF (heart failure with reduced ejection fraction) ??? HLD (hyperlipidemia) ??? HTN (hypertension) ??? MIRELLA (obstructive sleep apnea) 05/13/2019 Past Surgical History: Procedure Laterality Date ??? BLADDER PROCEDURE/SURGERY arteficial EUS Review of Systems: Constitutional: weight loss. 75lbs since gastric sleeve 08/10 Eyes: Eye disease, Wears glasses / contacts ENT: Hearing loss Cardiovascular: Chest pain/ tightness, Palpitations, Syncope Respiratory: Shortness of breath Vascular: Leg pain with walking, Pain in toes at rest Gastrointestinal: Constipation Genitourinary: Frequent urination, Blood in urine, Impotence Musculoskeletal: Arthritis, Back pain Skin: Negative Neurological: Numbness/tingling Psychiatric: Memory loss, Depression/anxiety Labs/Imaging: CMP 11/20/20 BUN 7 - 26 mg/dL 29High Creatinine 0.71 - 1.16 mg/dL 1.66High Sodium 136 - 145 mmol/L 141 Potassium 3.5 - 4.5 mmol/L 4.2 Chloride 98 - 107 mmol/L 101 CO2 22 - 29 mmol/L 31High Glucose 70 - 115 mg/dL 88 Calcium 8.4 - 10.2 mg/dL 8.6 Protein Total 6.0 - 8.3 g/dL 6.2 Albumin 3.4 - 5.0 g/dL 2.7Low Bilirubin Total 0.2 - 1.2 mg/dL 0.5 Alkaline Phosphatase 40 - 150 U/L 79 ALT 5 - 55 U/L 16 AST 5 - 34 U/L 20 Anion Gap 8 - 18 13 BUN/Creatinine Ratio 7 - 23 17 Osmolality Calculated 270 - 300 mOsm/kg 297 Albumin/Globulin Ratio 1.1 - 2.3 0.8Low eGFR by CKD-EPI >=90 mL/min/1.73 m2 45Low Echo with bubble study- 11/20/20 Summary Technically difficult/suboptimal echocardiogram. Left ventricular systolic function is hyperdynamic with an ejection fraction of 75-80%. The left ventricular diastolic function is normal, consistent with normal left ventricle filling pressures. Normal right ventricular systolic function. No significant valvular dysfuntion. Mild pulmonary hypertension, estimated pulmonary arterial systolic pressure is 37 mmHg. There is no evidence of ASD/PFO by color Doppler and bubble study interrogation. Physical Exam: Lower Extremity: B DP's 1+ Varicose Veins: knee, left, anterior, posterior lower leg, left, anterior, medial Reticular/Spider Vein Locations: Scattered BLE's Edema: 2-3+ pitting present in the left greater than right lower leg(s) Tenderness: absent in the bilateral lower leg(s) Stasis Dermatitis: absent in the bilateral lower leg(s) Hemosiderin Staining: present in the bilateral lower leg(s) Photos taken: Yes Media Information To Print: ??Double Click Image Below Document Information Photographic Image: Photos/Images BLE???s 01/16/2021 11:25 AM Attached To: Office Visit on 01/16/21 with Summer Cid APRN-CNS Source Information Summer Cid APRN-CNS Aff Slu Vas-Uct 550 Measurements: Right thigh: 61 cm Left thigh: 63 cm Right calf: 48 cm Left calf: 49.5 cm Right ankle: 30.5 cm Left ankle: 34 cm Impression: This is a 55 year old year old male who has BLE edema(L>R), BLE truncal and lymphedema, possible venous insufficiency with CHF, CKD and morbid obesity. I discussed multiple causes of leg edema such as cardiac disease, renal disease, hepatic disease, medications, musculoskeletal disease, venous disease and lymphatic disease. I am recommending that he continue to wear medical grade compression stockings on a daily basis. I have discussed the importance of a daily exercise program such as walking and leg elevation when able. I also discussed the use of Tylenol for pain/discomfort.Continue diuretics per Nursing Admin. I will obtain bilateral lower extremity venous duplex examination to assess for chronic venous insufficiency with saphenofemoral/saphenopopliteal reflux. If this is present, he may be a candidate for laser vein ablation. I discussed the risks, benefits, and alternatives to this treatment option. I will contact him after reviewing the results of the venous duplex examination. May need referral to [facility] after venous reflux study is completed, but will need clearance from his Nursing Admin, as he has CHF. The total time spent for this patient's encounter on the date of service was 60 minutes, which included chart review, face to face interaction/examination/counseling and documentation. documented in this encounter Plan of Treatment Not on file documented as of this encounter Visit Diagnoses Diagnosis Bilateral leg edema- Primary Edema Lymphedema of both lower extremities Chronic diastolic congestive heart failure (HCC) Chronic diastolic heart failure CRD (chronic renal disease), stage II Chronic kidney disease, Stage II (mild) documented in this encounter Care Teams Diesel Engine Tester Relationship Specialty Start Date End Date Natasha Bates PA-C [address] [place] [address] PCP - General 03/21/19 06/20/23 documented as of this encounter
--- OUTSIDE RECORDS SUMMARY | 2024-05-22 05:41 | XMS_ITS | Encounter Summary ---
Author Organization [facility] Health Address [address] [facility] [place] [address] Care Team Providers Care Bushwalking Guide Name Role Phone Natasha Bates PA-C Primary Care Provider + Reason for Visit * Reason Comments Holter Monitor READ Encounter Details Date Type Department Care Team (Latest Contact Info) Description 04/12/2022 11:00 AM TYRE FINISHER AND EXAMINER Cardiology Testing [facility] Cardiology [address] [facility] [address] [place] [address] Palpitations ; Expressive aphasia Social History Tobacco Use Types Packs/Day Years [...] No 11/21/2020 documented as of this encounter Procedure Notes * Shahnaz Fernandez MD - 04/25/2022 2:41 PM CSTAssociated Order(s): EKG 12-LEAD Procedure(s): EKG 12-LEAD Pre-Procedure Diagnose(s): Expressive aphasia HOLTER MONITOR REPORT: Patient name: Howie Delaney Patient : 1965 Patient Age: [age] year old Indication: Palpitation Requesting provider: Dr. Darby Study Duration: 1 day 23 hours 52 minutes Summary: 1. Atrial ectopy / premature atrial complexes (PAC) - 196 PSVCs with a burden of 0.09 % with 3 couplet. 2. Ventricular ectopy / premature ventricular complexes (PVC) - 27 PVCs with a burden of 0.01 %, all as isolated PVCs. 3. No significant bradycardia or pauses occurred. 4. Atrial fibrillation/flutter was not detected Manually Triggered events: There were no manually triggered events. Other tracings demonstrated sinus rhythm with rare atrial and ventricular ectopy. Conclusion: No sustained arrhythmias. The patient did have second degree AVN block (Mobitz type 1), lowest HR of 51 bpm. FINISHER AND EXAMINER documented in this encounter Plan of Treatment [...] Procedure Name Priority Date/Time Associated Diagnosis Comments EKG 12-LEAD STAT 11/20/2020 5:52 AM CDT Expressive aphasia documented in this encounter Visit Diagnoses Diagnosis Palpitations- Primary Expressive aphasia Aphasia documented in this encounter Care Teams Bushwalking Guide Relationship Specialty Start Date End Date Natasha Bates PA-C [address] [place] [id number] PCP - General 03/21/19 06/20/23 documented as of this encounter
--- OUTSIDE RECORDS SUMMARY | 2024-05-22 05:41 | XMS_ITS | Encounter Summary ---
Author Organization [facility] Address [address] [place] [address] Care Team Providers Care Clinical Dental Technician Name Role Phone Puneet Hughes MD Primary Care Provider [phone] Reason for Visit * Auth/Cert (Routine) Specialty Diagnoses / Procedures Referred By Malena sagastume Referred To Contact Diagnoses Chest pain, unspecified type Chest pain, unspecified type [R07.9] Procedures CCL LEFT HEART CATH Referral ID Status Reason Start Date Expiration Date Visits Re quested Visits Authorized [id number] 1 1 Encounter Details Date Type Department Care Team (Late st Contact Info) Description 06/23/2023 3:35 PM GAS PROCESSING PLANT OPERATOR - 06/23/2023 4:30 PM GAS PROCESSING PLANT OPERATOR Surgery [facility] - Cardiac Haul Driver [address] [place] [address] Minerva Reeves MD [facility] [address] Coronary Angiography Surgery Details Date/Time Status Location OR Service Patient Class Case Class Case Type Trauma Case? 06/23/2023 3:35 PM Posted [facility] Haul Driver EP Lab Cardiac Cath CCL Outpatient Work Ins >24 Hrs to 5 Days Panel 1 Procedure LRB Anes Op Region Wound Class Comments Left Heart Cath N/A Moderate Sedation Coronary Angiography N/A Moderate Sedation Surgeon Surgeon Role Service Panel Minerva Reeves MD Primary Cardiac Cath CCL 1 Jaylen Gan MD Fellow Cardiac Cath CCL 1 Case Notes anyone to do. First available, within days documented in this encounter Social History Tobacco Use Types Packs/Day Years [...] Sign Reading Time Taken Comments Blood Pressure 130/78 06/23/2023 4:20 PM GAS PROCESSING PLANT OPERATOR Pulse 49 06/23/2023 12:30 PM GAS PROCESSING PLANT OPERATOR Temperature 36.7 ??C (98.1 ??F) 06/23/2023 4:28 PM CS T Respiratory Rate 16 06/23/2023 4:20 PM GAS PROCESSING PLANT OPERATOR Oxygen Saturation 95% 06/23/2023 4:28 PM GAS PROCESSING PLANT OPERATOR Inhaled Oxygen Concentration - - Weight 122.7 kg (270 lb 9.6 oz) 024 11:51 AM GAS PROCESSING PLANT OPERATOR Height 185.4 cm (6' 1 ) 06/23/2023 11:5 1 AM GAS PROCESSING PLANT OPERATOR Body Mass Index 35.7 06/23/2023 11:51 AM GAS PROCESSING PLANT OPERATOR documented in this encounter Functional Status Functional [...] No 06/23/2023 documented as of this encounter Discharge Instructions * Discharge Instructions* Cathy Hughes RN - 06/23/2023 5:09 PM GAS PROCESSING PLANT OPERATOR Avoid excessive bending, flexion, pushing, or pulling with affected arm for 2 days. May shower the next day and remove dressing at that time. No bathtub, hot tub, crawford, pool, or dishwashing for 1 week. No submersion of hand in water for 1 week. No heavy lifting (no more than 5 pounds) for 5 days with the affected arm. PROCESSING PLANT OPERATOR documented in this encounter Medications at Time of Discharge Medication Sig Dispensed Refills Start Date End Date acetaminophen (TYLENOL) 325 MG tablet Take 2 (two) tablets by mouth 11/07/2019 allopurinol (ZYLOPRIM) 100 MG tablet 03/03/2021 aspirin (Aspirin) 81 MG chew tabletIndications:Chest pain, unspecified type Take 1 (one) tablet by mouth once daily 100 tablet 4 06/21/2023 atorvastatin (LIPITOR) 40 MG tablet every 24 hours CALCIUM PO Cyanocobalamin (B-12 PO) furosemide (LASIX) 40 MG tablet Take 0.5 (one-half) tablet by mouth every other day as needed 05/13/2020 gabapentin (NEURONTIN) 600 MG tablet 03/05/2021 loratadine (Claritin) 10 MG tablet Take 1 (one) tablet by mouth once daily as directed. 03/03/2023 metoprolol succinate XL 24hr (Toprol XL) 25 MG tabletIndications:Chest pain, unspecified type TAKE 1 TABLET BY MOUTH EVERY DAY 90 tablet 06/21/2023 Multiple Vitamin (DAILY-RAKESH) TABS Take 1 tablet by mouth once daily nitroGLYCERIN (Nitrostat) 0.4 MG tabletIndications:Chest pain, unspecified type Dissolve 1 (one) tablet under the tongue every 5 minutes as needed for Angina 30 tablet 06/21/2023 documented as of this encounter H&P Notes * Christie Darby PA - 06/23/2023 10:59 AM CST [facility] PRE PROCEDURE H&P AND SEDATION NOTE Planned Course of Treatment/Procedure: Left Heart Cath History of Present Illness: 57 year old male with past medical history HFpEF, HTN, Morbid obesity status post gastric sleeve surgery 07/2020, HLD, MIRELLA presents for [facility] with Dr. Pillai. Has been experiencing pressure-like chest pain over past week- worse with stress and physical activity and alleviated by rest. Did have some chest pain laying in bed last night, as well as this morning walking into the hospital. No chest pain currently- went away after sitting down in pre-op waiting room. Taken 81mg ASA DIRECTOR SURFACE TRANSPORTATION. This patient's prior inpatient/outpatient H&P from last 30 days was reviewed, the patient was examined, and no change has occurred in the patient's condition since the prior H&P was completed. Heart Failure: Yes, History of Heart Failure NYHA Class l, Diastolic Stress Test Preformed: None Medications, vital signs and labs results reviewed prior to procedure: Yes Past Medical & Surgical History Illnesses: Past Medical History: Diagnosis Date ??? CKD (chronic kidney disease) ??? HFrEF (heart failure with reduced ejection fraction) ([facility]) ??? HLD (hyperlipidemia) ??? HTN (hypertension) ??? MIRELLA (obstructive sleep apnea) 05/13/2019 Past Surgical History: Procedure Laterality Date ??? BARIATRIC SURGERY, GASTRIC gastric sleeve ??? BLADDER PROCEDURE/SURGERY arteficial EUS Allergies Allergen Reactions ??? Aspirin Unknown hematuria General: Well-developed in NAD. HEENT: NC/AT. PERRL. Neck: Supple. No tenderness, enlargement, JVD. Lungs: CTAB. No respiratory distress. Heart: Bradycardic, regular rhythm. +S1, S2. No murmurs or gallops appreciated Abdomen: Soft. NT/ND. Ext/MS: No edema, no cyanosis Neuro: A&O x3. No focal deficits noted. Skin: No obvious rashes or lesions noted. Pulses: Radial : 2+ bilateral Pedal pulses: 2+ bilateral Recent Labs Component Name 06/19/23 1557 04/20/21 1324 11/21/20 0144 11/20/20 0600 08/18/20 1659 02/04/20 0518 WBC 8.5 10.3 10.4 11.0* 12.7* 9.0 RBC 4.44 4.26 4.27* 4.28* 4.60 4.54 HGB 12.7* 13.6 13.1 12.9 13.7 12.7* HCT 39.6 41.9 39.3 39.9 41.6 40.7 MCV 89.2 98* 92.0 93.2 90 89.6 MCHC 32.1 32.5 33.3 32.3 32.9 31.2* PLTCOUNT 233 226 189 219 223 235 NEUTPCT 52.2 - - 56.1 - 57.5 LYMPHPCT 32.2 - - - - - MONOCYTPCT - 7 - - 7 - EOSINPCT - 4 - - 9 - NEUTABS 4.45 - - 6.2 - 5.2 LYMPHABS 2.75 2.8 - - 3.5* - MONOCYTABS - 0.8 - - 0.9 - BASOABS 0.05 0.1 - - 0.1 - IMMGRANSABS - 0.0 - - 0.0 - Recent Labs Component Name 06/19/23 1557 04/20/21 1324 04/01/21 1447 02/17/21 1149 11/21/20 0144 11/20/20 0600 11/20/20 0547 09/22/20 1343 02/02/20 0436 02/01/202013 SODIUM - 144 144 145* - - - 144 - - POTASSIUM 4.2 5.2 5.2 4.9 - 4.2 - 5.0 - 4.0 CHLORIDE - 106 108* 105 - - - 101 - - CO2 28 27 28 28 - 31* - 28 - 35* BUN 23 22 26* 26* - 29* - 26* - 30* CREATININE 1.36* 1.33* 1.33* 1.45* - 1.66* - 1.35* - 1.5* GLUCOSE 88 77 71 87 - 88 - 94 - 82 CALCIUM 9.2 9.1 8.7 9.0 - 8.6 - 9.3 - 9.3 ALT 18 - - - - 16 - - - 32 ALKPHOS 105 - - - - 79 - - - 97 AST 24 - - - - 20 - - - 28 EGFR 60* 59* 59* 53* - 45* - 59* - 49* EGFRAFR - 69 69 62 - - - 68 - - ALBUMIN - 3.2* 3.2* - - - - 3.3* - - - = values in this interval not displayed. Recent Labs Component Name 11/20/20 0600 11/20/20 0547 12/14/19 0745 INR 1.1 1.1 1.0 Airway: Mallampati III (soft palate, base of uvula visible) ASA Class: {Class 3 - Severe Systemic Disease, Definite Functional Limitations Impression: Worsening Angina Chest Pain Symptom Assessment: Typical Angina Cardiac Instability: No Procedure Acuity Status: Urgent Sedation: Per cardiology Fentanyl and Versed Indication: Sedation is required to allow for performance of procedure. Monitoring: heart rate, quality assurance monitor, continuous pulse oximetry, frequent blood pressure checks,level of consciousness, IV access, constant attendance until patient recovered, and emergency airway equipment available. Other indicators of a difficult intubation include: Obesity Patient airway and condition has been evaluated immediately prior to sedation and/or analgesia: Yes Cardiology High Risk Variables HFpEF Were these present on admission? Yes Consent: Risk, benefits and alternatives were discussed with patient and consent for procedure was obtained. SUE Chawla 06/22/2023 11:00 AM PROCESSING PLANT OPERATOR documented in this encounter OR Notes * Brief Op Note - Jaylen Gan MD - 06/23/2023 3:37 PM CST [facility] BRIEF POST PROCEDURE AND SEDATION NOTE Howie Delaney is a 57 year old male born on 1965 Pre-Op Diagnosis: Angina Post-Op Diagnosis: Normal coronary arteries, right radial access Attending: Dr. reeves Airplane Pilot Photogrammetry(s): Jaylen Gan MD EBL: 5 cc Type of anesthesia: Moderate 50mcg IV fentanyl and 1mg IV midazolam, was used for sedation. 1% lidocaine was administered subcutaneously. Monitoring: Monitoring consisted of: heart rate, quality assurance monitor, continuous pulse oximetry, continuous capnometry, frequent blood pressure checks, level of consciousness, IV access, constant attendance by RN until patient recovered and constant attendance until patient stable. Response: Vital signs stable, airway patent and O2 saturations greater than 92%. Patient Status Post Procedure: Hemodynamically and neurologically stable. Complications: none Jaylen Gan MD 06/23/2023 PROCESSING PLANT OPERATOR documented in this encounter Plan of Treatment [...] Procedure Name Priority Date/Time Associated Diagnosis Comments CORONARY ANGIOGRAPHY Routine 06/23/2023 4:07 PM GAS PROCESSING PLANT OPERATOR Chest pain, unspecified type CCL LEFT HEART CATH Routine 06/23/2023 4 :07 PM GAS PROCESSING PLANT OPERATOR Chest pain, unspecified type EKG 12-LEAD Routine 06/23/2023 12:25 PM GAS PROCESSING PLANT OPERATOR Chest pain, unspecified type documented in this encounter Results * CCL LEFT HEART CATH, CORONARY ANGIOGRAPHY (06/23/2023 4:07 PM GAS PROCESSING PLANT OPERATOR) Anatomical Region Laterality Modality X-Ray Angiograph y Narrative 06/27/2023 9:58 AM GAS PROCESSING PLANT OPERATOR ?The coronary vessels are normal. ?LVEDP: 25 mmHg. ?Right radial artery access. Reason for Procedure 57 year old male with past medical history HFpEF, HTN, Morbid obesity status post gastric sleeve surgery 07/2020, HLD, MIRELLA presents for [facility]. Has been experiencing pressure-like chest pain over [...] PROCS * EKG 12-LEAD (06/23/2023 12:25 PM GAS PROCESSING PLANT OPERATOR) Ventricular Rate 51 BPM [facility] Atrial Rate 51 BPM [facility] P-R Interval 162 ms [facility] QRS Duration ms 116 ms [facility] Q-T Interval ms 466 ms [facility] QTC Calculation (Bezet) 429 ms [facility]USE Calculated P [place] 21 degrees [facility] Calculated R [place] 45 degrees [facility]USE Calculated T [place] 32 degrees [facility] MUSE Interpretation EKG SINUS BRADYCARDIA POSSIBLE LEFT ATRIAL ENLARGEMENT BORDERLINE ECG WHEN COMPARED WITH ECG OF 21-JUN-2023 14:14, SINUS BRADYCARDIA HAS REPLACED NORMAL SINUS RHYTHM Confirmed by MD RITESH, JAY ([id number]) on 06/24/2023 1:43:17 PM [facility] MUSE 06/23/2023 12:2 5 PM GAS PROCESSING PLANT OPERATOR 06/24/2023 1:43 PM GAS PROCESSING PLANT OPERATOR Christie ROGERS ECG ORDERABLES [facility] MUSE documented in this encounter Visit Diagnoses Diagnosis Chest pain, unspecified type Chest pain, unspecified type documented in this encounter Admitting Diagnoses Diagnosis Chest pain documented in this encounter Administered Medications Inactive Administered Medications - up to 3 most recent administrations Medication Order MAR Action Action Date Dose Rate Site 0.9% NaCl injection 1-10 mL 1-10 mL, Intracatheter, PRN, Other, peripheral line flush, Starting on Sushila 06/23/23 at 1639, Until Tue06/23/23 at 2032, Flush peripheral IV catheter with 1-10 mL of normal saline before and after medications and prn to clear blood from the line or to verify patency., Post-op 0.9% NaCl injection 3 mL 3 mL, Intracatheter, EVERY 8 HOURS, First dose on Sushila 06/23/23 at 1645, Until Discontinued, Flush peripheral IV catheter with 3 mL of normal saline every 8 hours., Post-op acetaminophen (Tylenol) tablet 325 mg 325 mg, Oral, EVERY 4 HOURS PRN, Moderate Pain, Starting on Sushila 06/23/23 at 1757, Until Sushila 06/23/23 at 1810, Patient preference for lesser PRN pain meds may be honored when the patient requests a less strong medication, a lower dose, or a less intrusive route of administration when the lesser drug, dose and route have been ordered for the patient. This patient request must be documented in the MAR. $ Given 06/23/2023 6:02 PM GAS PROCESSING PLANT OPERATOR 325 mg acetaminophen (Tylenol) tablet 325 mg 325 mg, Oral, EVERY 4 HOURS PRN, Moderate Pain, Mild Pain, Severe Pain, Starting on Sushila 06/23/23 at 1810, Until Sushila 06/23/23 at 2031, Patient preference for lesser PRN pain meds may be honored when the patient requests a less strong medication, a lower dose, or a less intrusive route of administration when the lesser drug, dose and route have been ordered for the patient. This patient request must be documented in the MAR. aspirin chew tablet 243 mg 243 mg, Oral, ONCE, 1 dose, On Sushila 06/23/23 at 1215 $ Given 06/23/2023 12:29 PM GAS PROCESSING PLANT OPERATOR 243 mg fentaNYL (PF) (Sublimaze) injection PRN, Starting on Sushila 06/23/23 at 1554, Until Sushila 06/23/23 at 2032, Intra-procedure (CATH) $ Given 06/23/2023 3:54 PM GAS PROCESSING PLANT OPERATOR 50 mcg iopamidol (Isovue 370) 76 % contrast PRN, Starting on Sushila 06/23/23 at 1610, Until Sushila 06/23/23 at 2032, Intra-procedure (CATH) $ Given 06/23/2023 4:10 PM GAS PROCESSING PLANT OPERATOR 70 mL lidocaine (Xylocaine) 1 % injection PRN, Starting on Sushila 06/23/23 at 1555, Until Sushila 06/23/23 at 2032, Intra-procedure (CATH) $ Given 06/23/2023 3:55 PM GAS PROCESSING PLANT OPERATOR 3 mL Right Wrist midazolam (Versed) injection PRN, Starting on Sushila 06/23/23 at 1554, Until Sushila 06/23/23 at 2032, Intra-procedure (CATH) $ Given 06/23/2023 3:54 PM GAS PROCESSING PLANT OPERATOR 1 mg nitroGLYCERIN 200 mcg, verapamil (Isoptin) 5 mg 4 mL Intra-arterial, PRN, Starting on Sushila 06/23/23 at 1558, Until Sushila 06/23/23 at 2032, Intra-procedure (CATH) $ Given 06/23/2023 3:58 PM GAS PROCESSING PLANT OPERATOR 4 mL documented in this encounter Active and Recently Administered Medications Times are shown in GAS PROCESSING PLANT OPERATOR. Scheduled Medication Order 06/21/2023 06/22/2023 06/23/2023 0.9% NaCl injection 3 mL(Linked Group 1) 3 mL, Intracatheter, EVERY 8 HOURS, First dose on Sushila 06/23/23 at 1645, Until Discontinued, Flush peripheral IV catheter with 3 mL of normal saline every 8 hours., Post-op 1645 (Due) aspirin chew tablet 243 mg (COMPLETED) 243 mg, Oral, ONCE, 1 dose, On Sushila 06/23/23 at 1215 1229 ($ Given - Prov ider: Rossana Matute RN) PRN Medication Order 06/21/2023 06/22/2023 06/23/2023 0.9% NaCl injection 1-10 mL(Linked Group 1) 1-10 mL, Intracatheter, PRN, Other, peripheral line flush, Starting on Sushila 06/23/23 at 1639, Until Sushila 06/23/23 at 2032, Flush peripheral IV catheter with 1-10 mL of normal saline before and after medications and prn to clear blood from the line or to verify patency., Post-op acetaminophen (Tylenol) tablet 325 mg (CANCELED) 325 mg, Oral, EVERY 4 HOURS PRN, Moderate Pain, Starting on Sushila 06/23/23 at 1757, Until Sushila 06/23/23 at 1810, Patient preference for lesser PRN pain meds may be honored when the patient requests a less strong medication, a lower dose, or a less intrusive route of administration when the lesser drug, dose and route have been ordered for the patient. This patient request must be documented in the 1801 ($ Given - Prov ider: Meenakshi Toledo RN) acetaminophen (Tylenol) tablet 325 mg 325 mg, Oral, EVERY 4 HOURS PRN, Moderate Pain, Mild Pain, Severe Pain, Starting on Sushila 06/23/23 at 1810, Until Sushila 06/23/23 at 2031, Patient preference for lesser PRN pain meds may be honored when the patient requests a less strong medication, a lower dose, or a less intrusive route of administration when the lesser drug, dose and route have been ordered for the patient. This patient request must be documented in the MAR. fentaNYL (PF) (Sublimaze) injection PRN, Starting on Sushila 06/23/23 at 1554, Until Sushila 06/23/23 at 203, Intra-procedure (CATH) 1554 ($ Given - Prov ider: Jose Roberto Leblanc RN) iopamidol (Isovue 370) 76 % contrast PRN, Starting on Sushila 06/23/23 at 1610, Until Sushila 06/23/23 at 2032, Intra-procedure (CATH) 1610 ($ Given - Prov ider: Minerva Reeves MD) lidocaine (Xylocaine) 1 % injection PRN, Starting on Sushila 06/23/23 at 1555, Until Sushila 06/23/23 at 2032, Intra-procedure (CATH) 1555 ($ Given - Prov ider: Minerva Reeves MD) midazolam (Versed) injection PRN, Starting on Sushila 06/23/23 at 1554, Until Sushila 06/23/23 at 2032, Intra-procedure (CATH) 1554 ($ Given - Prov ider: Jose Roberto Leblanc RN) nitroGLYCERIN 200 mcg, verapamil (Isoptin) 5 mg 4 mL Intra-arterial, PRN, Starting on Sushila 06/23/23 at 1558, Until Sushila 06/23/23 at 203, Intra-procedure (CATH) 1558 ($ Given - Prov ider: Jose Roberto Leblanc RN) Linked Groups Order Group 1: SALINE LOCK, INSERT AND MAINTAIN (CANCELED) Routine, CONTINUOUS, Starting on Sushila 06/23/23 at 1645, Until Specified, Post-op, New collection And 0.9% NaCl injection 3 mLJump to med 3 mL, Intracatheter, EVERY 8 HOURS, First dose on Sushila 06/23/23 at 1645, Until Discontinued, Flush peripheral IV catheter with 3 mL of normal saline every 8 hours., Post-op And 0.9% NaCl injection 1-10 mLJump to med 1-10 mL, Intracatheter, PRN, Other, peripheral line flush, Starting on Sushila 06/23/23 at 1639, Until Sushila 06/23/23 at 2033, Flush peripheral IV catheter with 1-10 mL of normal saline before and after medications and prn to clear blood from the line or to verify patency., Post-op documented in this encounter Care Teams Clinical Dental Technician Relationship Specialty Start Date End Date Puneet Hughes MD PCP - General Internal Medicine 06/21/23 documented as of this encounter
--- OUTSIDE RECORDS SUMMARY | 2024-05-22 05:41 | XMS_ITS | Encounter Summary ---
Author Organization [facility] Health Address [address] [place] [address] Care Team Providers Care Warehouse Laborer Name Role Phone Natasha Bates PA-C Primary Care Provider + Encounter Details Date Type Department Care Team (Late st Contact Info) Description 02/18/2021 Orders Only [facility] - Nephrology [address] [place] [address], [place] [address] Gerardo Zavala MD [address] [place] [address] [place] [id number] Hyperkalemia ; CRD (chronic renal disease), stage II Social [...] track( 021 3:13 PM CDT) No Zoraida Velasquez RN Note: Expected end date: ongoing Interventions: Take all medications as prescribed Let your doctor know right away about any changes in your medications Make sure to request a refill of your medication at least one week prior to your last dose documented as of this encounter Procedures Procedure Name Priority Date/Time Associated Diagnosis Comments RENAL FUNCTION PANEL Routine 04/01/2021 2:47 PM CONCRETE FLOOR INSTALLER Hyperkalemia CRD (chronic renal disease), stage II documented in this encounter Results * (ABNORMAL) RENAL FUNCTION PANEL (04/01/2021 2:47 PM CONCRETE FLOOR INSTALLER) Glucose 71 65 - 99 mg/dL [facility] INSURANCE BILL BUN 26(H) 6 - 24 mg/dL [facility] INSURANCE BILL Creatinine 1.33(H) 0.76 - 1.27 mg/dL [facility] INSURANCE BILL eGFR by MDRD 59(L) >59 mL/min/1. 73 [facility] INSURANCE BILL eGFR by MDRD 69 >59 mL/min/1. 73 [facility] INSURANCE BILL Comment: In accordance with recommendations from the NKF-ASN Task force, ??[facility] is in the process of updating its eGFR calculation to the ??2020 CKD-EPI creatinine equation that estimates kidney function ??without a race variable. BUN/Creatinine Ratio 20 9 - 20 [facility] INSURANCE BILL Sodium 144 134 - 144 mmol/L [facility] INSURANCE BILL Potassium 5.2 3.5 - 5.2 mmol/L [facility] INSURANCE BILL Chloride 108(H) 96 - 106 mmol/L [facility] INSURANCE BILL CO2 28 20 - 29 mmol/L [facility] INSURANCE BILL Calcium 8.7 8.7 - 10.2 mg/dL [facility] INSURANCE BILL Phosphorus 3.9 2.8 - 4.1 mg/dL [facility] INSURANCE BILL Albumin 3.2(L) 3.8 - 4.9 g/dL [facility] INSURANCE BILL Comment:FASTING Blood BLOOD SPECIMEN / Unknown 04/01/2021 2:47 PM CONCRETE FLOOR INSTALLER 04/01/2021 Narrative Resulting Agency Comment Lab Testing performed at: [facility] [address] [place] [address] Road ??[facility] [phone] Gerardo Oneal MD LAB - CH EMISTRY ORDERABLES [facility] INSURANCE BILL [address] [place] [address] documented in this encounter Visit Diagnoses Diagnosis Hyperkalemia- Primary Hyperpotassemia CRD (chronic renal disease), stage II Chronic kidney disease, Stage II (mild) documented in this encounter Care Teams Warehouse Laborer Relationship Specialty Start Date End Date Natasha Bates PA-C [address] [place] [phone] PCP - General 03/21/19 06/20/23 documented as of this encounter
--- OUTSIDE RECORDS SUMMARY | 2024-05-22 05:41 | XMS_ITS | Encounter Summary ---
Author Organization [facility] Health Address [address] [place] [address] Care Team Providers Care Route Driver Salesperson Name Role Phone Natasha Bates PA-C Primary Care Provider + Encounter Details Date Type Department Care Team (Latest Contact Info) Description 06/15/2023 Travel Social History Tobacco Use Types Packs/Day [...] on filedocumented in this encounter Care Teams Route Driver Salesperson Relationship Specialty Start Date End Date Natasha Bates PA-C [address] [place] [phone] PCP - General 03/21/19 06/20/23 documented as of this encounter
--- OUTSIDE RECORDS SUMMARY | 2024-05-22 05:41 | XMS_ITS | Encounter Summary ---
Author Organization [facility] Health Address [address] [facility] [place] [address] Care Team Providers Care Student Loan Counselor Name Role Phone Natasha Bates PA-C Primary Care Provider + Reason for Visit * Reason Onset Date Comments Follow-up 08/03/2021 Encounter Details Date Type Department Care Team (Late st Contact Info) Description 08/03/2021 Telephone [facility] - Nephrology [facility] [place] [address] Letitia Vidal RN Follow-up Social History Tobacco Use Types Packs/Day Years [...] No 11/21/2020 documented as of this encounter Miscellaneous Notes * Telephone Encounter - Letitia Vidal, RN - 08/03/2021 2:55 PM CDT No identified VM. Message to pt; scheduled f/u appointment with Dr. Camacho Oneal, 10/21/21 at 1230 pm.. Refill for Veltassa has been at [facility] since 07/06/21. documented in this encounter Plan of Treatment [...] on filedocumented in this encounter Care Teams Student Loan Counselor Relationship Specialty Start Date End Date Natasha Bates PA-C [address] [place] [phone] PCP - General 03/21/19 06/20/23 documented as of this encounter
--- OUTSIDE RECORDS SUMMARY | 2024-05-22 05:41 | XMS_ITS | Encounter Summary ---
Author Organization [facility] Health Address [address] [place] [address] Care Team Providers Care Tube Room Cashier Name Role Phone Natasha Bates PA-C Primary Care Provider + Encounter Details Date Type Department Care Team (Late st Contact Info) Description 12/22/2020 9:30 AM CDT Office Visit [facility] - Orthopedics [address] [place] [address], [place] [id number] Tito Crowe MD [address] [place] [address] [place] [address] Closed fracture of proximal end of right fibula, unspecified fracture morphology, initial encounter (Primary Dx) Social History Tobacco Use Types [...] this encounter Patient Instructions * Patient Instructions* Navya Helm MD - 12/22/2020 10:49 AM CDT Department of Orthopaedic Surgery Howie Campos Rhett 12/22/2020 Thank you for allowing us to care for you today. You were seen in clinic today for follow up Please use this note as a school/work excuse: patient had appointment on 12/22/2020. Diagnosis: Closed fracture of proximal end of right fibula, unspecified fracture morphology, initial encounter - Plan: Ref to Physical Therapy - [facility] PT Your weight bearing (WB) status will be WBAT of the right lower extremity We recommend that you try the following for your injury: 1. Activities as tolerated 2. 40 lbs weight lifting limits and limited stair climbing, use elevator for 1 month 3. OTC pain management consider gastric sleeve limitations 4. PRN follow up Prescriptions: Medications over the counter: - Acetaminophen (Tylenol) 500mg 1-2 tablets every 6 hours as needed for pain, not exceeding daily total of 4000mg. Please note that narcotic medications can consist of same ingredient. - Ibuprofen (Advil) 200mg 1-3 tablets every 8 hours as needed for pain, not exceeding daily total of 2400mg OR Naproxen (Aleve) 220mg 1-2 tablets every 12 hours as needed for pain. Take with food or milk to prevent stomach upset. Do not take any other NSAIDs while taking this medication. Please take the following to promote bone health: ?? Multivitamin 1 tablet daily ?? Vitamin D3 2000 IU 1 tablet daily ?? Calcium 600mg with Vitamin D 400 IU 2 tablets daily Please make a follow up : PRN Please call the clinic if you have any questions. [facility] Orthopaedic office contact information: [facility] ([facility]) - [address]st Floor [address] [place] [id number] Visit our website at [email or web address] for information about our practice and an interactive health encyclopedia. Please visit [email or web address] to access your health record, ask questions, request medication refills, and request appointments for non-urgent needs after you have configured your [employer] account. If you do not currently have access, please contact one of our staff members or call [phone]. For after hour emergencies, please call and press 0 for the glue line operator in order to page the orthopedic resident requisition approver. documented in this encounter Progress Notes * Navya Helm MD - 12/22/2020 10:43 AM CDT [facility] Orthopaedic Trauma Clinic Note 12/22/2020 Howie Delaney, 55 year old, male : 1965 CSN: [id number] Date of Injury: 11/20/20 Date of Surgery: n/a Time Since injury/surgery: n/a Diagnosis/Procedures: 1.) right fibular head fracture HPI: 55 year old male presents for follow-up clinic appointment, status post above noted injury complex. Patient has been ambulating with single cane since injury. He still complains of mild to moderate pain on the medial aspect of right knee. Lateral aspect knee pain has improved substantially. Heis loosing weight with gastric sleeve surgery he has lost 75 lbs. NSAIDs are contraindicated for him Objective: There were no vitals taken for this visit. Physical Exam General: Alert, cooperative, in no acute distress. Musculoskeletal: Pelvis: no pain with compression or rotational stresses. RUE -Skin: skin intact, compartments soft/compressible -Tenderness: nontender to palpation of clavicle, shoulder, elbow, wrist, fingers -ROM: nontender to passive range of motion of clavicle, shoulder, elbow, wrist, fingers. No crepitation -Motor: Fires EPL/FPL/ EDC/FDP/IO, Flexes/extends wrist -Neuro: SILT in Axillary/Median/Ulnar/Radial distributions -Vascular: 2+ radial pulse with brisk capillary refill, fingers warm and well perfused LUE -Skin: skin intact, compartments soft/compressible -Tenderness: nontender to palpation of clavicle, shoulder, elbow, wrist, fingers -ROM: nontender to passive range of motion of clavicle, shoulder, elbow, wrist, fingers. No crepitation. -Motor: Fires EPL/FPL/ EDC/FDP/IO, Flexes/extends wrist -Neuro: SILT in Axillary/Median/Ulnar/Radial distributions -Vascular: 2+ radial pulse with brisk capillary refill, fingers warm and well perfused RLE -Skin: skin intact, compartments soft/compressible -Tenderness: tenderness over right pes anserine -ROM: nontender to passive range of motion of hip, knee, ankle, foot. Negative log roll. Negative axial load. No crepitation -Motor: Fires EHL/FHL/Gastroc/TA -Neuro: SILT in DP/SP/Sural/Saphenous/Tibial nerve distributions -Vascular: 2+ DP/ PT pulse with brisk capillary refill, toes warm and well perfused LLE -Skin: skin intact, compartments soft/compressible -Tenderness: nontender to palpation of hip, knee, ankle, foot -ROM: nontender to passive range of motion of hip, knee, ankle, foot. Negative log roll. Negative axial load. No crepitation -Motor: Fires EHL/FHL/Gastroc/TA -Neuro: SILT in DP/SP/Sural/Saphenous/Tibial nerve distributions -Vascular: 2+ DP/ PT pulse with brisk capillary refill, toes warm and well perfused Radiographs: Right tib/fib XR demonstrates adequate healing of right fibular head fracture. Assessment/Plan: 55 year old male one month status post Right fibular head fracture with routine healing. Activity as tolerated No more than 40 lbs weight lifting for one month Limited climbing stairs and wherever possible use elevator. Follow up PRN Navya Helm MD Patient seen and examined with Resident. I confirm the previously stated history and exam. I have personally reviewed the imaging and agree with the assessment and plan. Note: 55M w/ R fibula head fx 1 month ago. Doing well. No pain. Ambulating well. neurovascularly intact My review of XRays today show: maintained good alignment of fracture with interval healing. WBAT RLE NSAIDs PRN Rx for PT Released from clinic. Can return as needed. Tito Crowe MD [facility] documented in this encounter Plan of Treatment Not on file documented as of this encounter Visit Diagnoses Diagnosis Closed fracture of proximal end of right fibula, unspecified fracture morphology, initial encounter- Primary documented in this encounter Care Teams Tube Room Cashier Relationship Specialty Start Date End Date Natasha Bates PA-C [address] [place] [address] PCP - General 03/21/19 06/20/23 documented as of this encounter
--- OUTSIDE RECORDS SUMMARY | 2024-05-22 05:41 | XMS_ITS | Encounter Summary ---
Author Organization [facility] Health Address [address] [facility] [place] [address] Care Team Providers Care Grinder Lap Name Role Phone Natasha Bates PA-C Primary Care Provider + Reason for Visit * Reason Comments Follow-up no complaints Encounter Details Date Type Department Care Team (Late st Contact Info) Description 08/20/2020 2:30 PM CDT Office Visit [facility] - Nephrology [address] [place] [address], [place] [address] Gerardo Zavala MD [address] [place] [address] [place] [address] Stage 2 chronic kidney disease (Primary Dx); Essential hypertension Social History Tobacco Use Types [...] Sign Reading Time Taken Comments Blood Pressure 123/78 08/20/2020 2:46 PM CDT Pulse 73 08/20/2020 2:46 PM CDT Temperature 36.4 ??C (97.5 ??F) 08/20/2020 2:46 PM CD T Respiratory Rate - - Oxygen Saturation 92% 08/20/2020 2:46 PM CDT Inhaled Oxygen Concentration - - Weight 155.6 kg (343 lb) 08/20/2020 2:46 PM CDT Height - - Body Mass Index 45.25 08/07/2020 10:49 AM CDT documented in this encounter Functional [...] as of this encounter Progress Notes * Angela Sheikh MD - 08/20/2020 3:48 PM CDT Nephrology Clinic Note CC: follow up his renal function HPI: Howie Delaney is a 54 year-old, male with PMH of HTN, Morbid obesity, HFpEF, MIRELLA, pulmonary HTN, CKD Stage 3 who presented for follow up his renal function after gastric sleeve surgery at [facility] 08/04/20. He states he lost 24 lbs in 2 week. He says he is thirsty and having nausea, mild diarrhea (twice). He feels dizziness while standing up. He states swelling in legs decreased after surgery. He is taking furosemide 10 mg qd, carvedilol 25 bid, ISMN 45 mg, and allopurinol 200 mg. After surgery stopped veltassa. His bl crea level was 1.4-1.5 in 01/2020. Crea increased to 1.74 on 08/18/20 His last Blood work (08/18) showed BUN 31 Na 141 K 4.8 Hgb 13.7 WBC 12.7 UA: 1017 prot+2 No wbc, 0-2 RBC UPCR 438 mg/g crea Review of Systems: Review of Systems Constitutional: Negative for chills and fever. Respiratory: Positive for shortness of breath. Negative for cough and sputum production. Cardiovascular: Positive for leg swelling. Negative for chest pain. Gastrointestinal: Positive for diarrhea and nausea. Negative for abdominal pain and vomiting. Genitourinary: Negative for dysuria, frequency, hematuria and urgency. Neurological: Positive for dizziness. Chronic Conditions: HTN - on carvedilol 25 bid, acceptable BP s at home. He states dizziness while standing up. On PE, he has postural hypotension. sitting BP 110/70 standing BP 98/64 MIRELLA: CPAP for 1 year Past Medical History: Past Medical History: Diagnosis Date ??? CKD (chronic kidney disease) ??? HFrEF (heart failure with reduced ejection fraction) ??? HLD (hyperlipidemia) ??? HTN (hypertension) ??? MIRELLA (obstructive sleep apnea) 05/13/2019 Past Surgical History: Past Surgical History: Procedure Laterality Date ??? BLADDER PROCEDURE/SURGERY arteficial EUS Social History: Social History Socioeconomic History ??? Marital status: Spouse name: Not on file ??? Number of children: Not on file ??? Years of education: Not on file ??? 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 Smoking status: Never Smoker ??? Smokeless tobacco: Never Used Substance and Sexual Activity ??? Alcohol use: Yes Frequency: 2-4 times a month Drinks per session: 1 or 2 Binge frequency: Never Comment: maybe 4 drinks a month ??? Drug use: Never ??? Sexual activity: Never Other Topics Concern ??? Not on file Social History Narrative ??? Not on file Family History: Family History Problem Relation Name Age of Onset ??? Other Mother pulmonary hypertension ??? Other Nephew pulmonary hypertension Allergies: No Known Allergies Medications: Current Outpatient Medications Medication Sig ??? acetaminophen (TYLENOL) 325 MG tablet Take [...] for Shortness of Breath, Wheezing or Cough (Patient not taking: Reported on 08/07/2020) ??? allopurinol (ZYLOPRIM) 100 MG tablet Take 100 mg by mouth 2 times daily ??? atorvastatin (LIPITOR) 40 MG tablet every 24 hours ??? carvedilol (COREG) 25 MG tablet Take 25 mg by mouth 2 times daily with morning and evening meal ??? furosemide (LASIX) 20 MG tablet Take 1 (one) tablet by mouth once daily (Patient taking differently: Take 20 mg by mouth once daily Taking 1/2 pill a day) ??? gabapentin (NEURONTIN) 300 MG capsule Take 300 mg by mouth 3 times daily ??? isosorbide mononitrate CR 24hr (IMDUR) 30 MG tablet Take 1.5 tablets by mouth once daily ??? patiromer (VELTASSA) [...] oral medications 3 hours before or after. (Patient not taking: Reported on 08/20/2020) ??? zolpidem (AMBIEN) 5 MG tablet Take 1 (one) tablet by mouth nightly as needed for Insomnia (Patient not taking: Reported on 08/20/2020) No current facility-administered medications for this visit. Vitals: Vitals: 08/20/20 1446 BP: 123/78 Pulse: 73 Temp: 97.5 ??F (36.4 ??C) SpO2: 92% Weight: (!) 155.6 kg (343 lb) Physical Exam: General: Awake, sitting comfortable, not in acute distress, well developed, morbid obese HEENT: Normocephalic and atraumatic without tenderness, visible or palpable masses, depressions, orscarring, dry mucus membrane Neck: supple without adenopathy. Trachea is midline. Thyroid gland is normal without masses. No JVD. Respiratory: Normal vesicular breathing with equal air entry bilaterally without rales, ronchi, or wheezes. CVS: Heart rate and rhythm are normal. S1 and S2 are heard and are of normal intensity. No murmurs,gallops, or rubs are auscultated. Abdomen: Soft, Lax, Non-distended, Non-tender, audible Bowel sounds, without bruit or visible pulsation, no palpable organomegaly. Musculoskeletal: no tenderness or deformity, no joint swelling, 1+ LE edema. Neuro: AxOx3, no focal signs, no asterixis Skin: Skin in warm, dry and intact without rashes or lesions. Data Review Recent Labs Component Name 08/18/20 1659 02/04/20 0518 02/03/20 0402 02/02/20 0434 02/01/20201312/14/19 0745 11/05/19 0436 11/05/19 0436 11/03/19 2337 HGB 13.7 12.7* 12.1* 11.7* 12.4* 12.1* - 11.9* 12.1* WBC 12.7* 9.0 9.5 11.6* 12.4* 11.3* - 10.8* 12.4* HCT 41.6 40.7 37.8* 37.7* 40.3 39.4 - 39.0 38.5* MCV 90 89.6 90.0 91.3 91.0 92.7 - 94.7 92.8 PT - - - - - 13.1 - 13.6 13.4 INR - - - - - 1.0 - 1.1 1.1 - = values in this interval not displayed. ) Recent Labs Component Name 08/18/20 1704 08/18/20 1659 02/19/20 1532 02/19/20 0000 02/13/20 1416 02/04/20 0518 02/03/20 0402 02/02/20 0436 02/01/20201312/26/19 1507 11/06/19 0559 11/06/19 0559 11/03/19 2337 11/03/19 2337 10/30/19 1350 10/30/19 1350 BUN 31* 30* 41* 41.0* 40* 28* 28* 27* 30* 27* - 18 - 31* - 27* CREATININE 1.74* 1.65* 1.56* 1.56* 1.78* 1.4* 1.5* 1.4* 1.5* 1.5* - 1.3* - 1.4* - 1.41* NA - - - - - 136 138 138 139 143 - 144 - 146* - - CL - - - - - 96* 97* 98 98 105 - 107 - 107 - - CO2 26 24 30 30 32* 34* 33* 34* 35* 34* - 30* - 30* - 30* CALCIUM 9.0 9.0 9.4 9.40 9.3 8.9 9.0 9.0 9.3 8.6 - 8.5 - 8.9 - 9.3 PHOS - 3.7 - - - - - - - 3.9 - 3.1 - 3.9 - 3.5 - = values in this interval not displayed. Recent Labs Component Name 02/01/20201312/26/19 1507 11/06/19 0559 11/03/19 2337 06/13/19 0355 06/11/19 2229 06/10/19 2257 ALB 2.9* 2.8* 2.5* 2.7* 2.7* 2.7* 2.9* TBILI 0.7 - - 0.5 - 0.6 0.4 ALT 32 - - 15 - 18 21 AST 28 - - 18 28 No results for input(s): PHART, OIQ4LLF, PO2ART, BLE1GBZ in the last 80669 hours. Ur WBC: Ur RBC: Ur blood: Ur Protein: UPCr: Assessment and Plan: # CKD stage 3 - The last crea level 1.74 on 08/18/20 - bl crea 1.4-1.5 in 01/2020 - increasing crea level is more likely secondary to dehydration due to decreased fluid intake, diarrhea, and furosemide intake - suggest to stop furosemide tb - recommend to increase PO fluid intake - will check renal function 1 week later - Recommend to avoid nephrotoxins i.e. chronic NSAID use # HTN - orthostatic hypotension (sitting BP 110/70 standing BP 98/64) - was given some information about postural hypotension - will stop furosemide - suggest to decrease ISMN dose to 30 mg. He will follow up cardiology - continue Carvedilol 25 mg bid Patient was seen and discussed with attending physician, Dr. Camacho Sheikh MD Nephrology Fellow #[phone] Associated attestation - Gerardo Zavala MD - 08/20/2020 5:57 PM CDT I have seen and examined the patient with house-staff at nephrology clinic. I agree with the house-staff note with the additions/modificiations listed below. Mr. Delaney is a 54 year old male who presents for follow up of CKD stage 3 and hyperkalemia. Patient has history significant for pulmonary HTN, MIRELLA, heart failure with preserved EF. Admitted for syncope in 2019, cardiac catheterization showed normal coronaries, elevated filling pressures. RA 15 mmHg,PAP 30 mmHg, LVEDP 24 mmHg. Patient underwent gastric sleeve surgery on 08/04/2020. Since then, he has lost more than 24 pounds of weight. He has been feeling dry and dizzy on standing. In addition, he has had diarrhea and his edema in lower extremities has decreased. He reduced his furosemide dose to 10 mg daily, and he did not take his BP medication today. He also stopped veltassa because of diarrhea. I reviewed his labs performed two days ago (08/18/2020) which showed: Na 140, K 4.8, CO2 26, creatinine 1.74, and BUN 31. Protein/creatinine ratio 443 mg/g (from 550 mg/g creatinine). Baseline serum creatinine since 02/13/2020 1.5 to 1.7; previously 1.3-1.4 - Decrease in kidney function likely related with volume contraction due to diuresis, furosemide, diarrhea and relatively low fluid intake. - Orthostatic hypotension: BP 110/70 sitting and 98/64 standing -- Will stop furosemide -- Decrease dose of isosorbide monitrate CR 45 mg from 45 to 30 mg. Suggested to call his high risk ob -- Reccommended to increase fluid intake - Recommended to decrease K intake in his diet. - Ordered renal function panel in a week. - Patient was informed about orthostatic hypotension and recommendation to avoid fall. documented in this encounter Miscellaneous Notes * Communication Body - Letitia Vidal RN - 08/20/2020 2:55 PM CDT No complaints during this assessment documented in this encounter Plan of Treatment Not on file documented as of this encounter Visit Diagnoses Diagnosis Stage 2 chronic kidney disease- Primary Essential hypertension documented in this encounter Care Teams Grinder Lap Relationship Specialty Start Date End Date Natasha Bates PA-C [address] [place] [address] PCP - General 03/21/19 06/20/23 documented as of this encounter
--- OUTSIDE RECORDS SUMMARY | 2024-05-22 05:41 | XMS_ITS | Encounter Summary ---
Author Organization [facility] Address [address] [facility] [address] Care Team Providers Care Tax Compliance Manager Name Role Phone Puneet Hughes MD Primary Care Provider [phone] Reason for Referral * Cardiac (Routine) - Closed Specialty Diagnoses / Procedures Referred By Malena sagastume Referred To Contact Cardiac Rehab Diagnoses Chest pain, unspecified type Procedures Referral to Cardiac Rehab Phase II Kaylynn Pillai MD [address] [facility] [address] [place] [address] Referral ID Status Reason Start Date Expiration Date Visits Re quested Visits Authorized [id number] Closed 06/23/2023 06/22/2024 1 1 CONSULTANT Reason for Visit * Auth/Cert (Routine) Specialty Diagnoses / Procedures Referred By Malena sagastume Referred To Contact Diagnoses Chest pain, unspecified type Chest pain, unspecified type [R07.9] Procedures CCL LEFT HEART CATH Referral ID Status Reason Start Date Expiration Date Visits Re quested Visits Authorized [id number] 1 1 Encounter Details Date Type Department Care Team (Latest Contact Info) Description 06/23/2023 10:45 AM CROP CONSULTANT - 06/23/2023 7:27 PM CROP CONSULTANT Hospital Encounter [facility] [address] [place] [phone] Kaylynn Pillai MD [address] [facility] [address] [place] [address] Cardiac Catheterization Discharge Disposition: Home or Self Care Social History Tobacco Use Types Packs/Day [...] Comments Blood Pressure 130/81 06/23/2023 7:01 PM CROP CONSULTANT Pulse 51 06/23/2023 7:01 PM CROP CONSULTANT Temperature 36.7 ??C (98.1 ??F) 06/23/2023 4:28 PM CS T Respiratory Rate 15 06/23/2023 7:01 PM CROP CONSULTANT Oxygen Saturation 95% 06/23/2023 7:01 PM CROP CONSULTANT Inhaled Oxygen Concentration - - Weight 122.7 kg (270 lb 9.6 oz) 024 11:51 AM CROP CONSULTANT Height 185.4 cm (6' 1 ) 06/23/2023 11:5 1 AM CROP CONSULTANT Body Mass Index 35.7 06/23/2023 11:51 AM CROP CONSULTANT documented in this encounter Functional Status Functional [...] encounter Discharge Instructions * Discharge Instructions* Cathy Hughes, AVA - 06/23/2023 5:09 PM CROP CONSULTANT Avoid excessive bending, flexion, pushing, or pulling with affected arm for 2 days. May shower the next day and remove dressing at that time. No bathtub, hot tub, crawford, pool, or dishwashing for 1 week. No submersion of hand in water for 1 week. No heavy lifting (no more than 5 pounds) for 5 days with the affected arm. CONSULTANT documented in this encounter Medications at Time [...] Darby PA - 06/23/2023 10:59 AM CST [facility] PRE PROCEDURE H&P AND SEDATION NOTE Planned Course of Treatment/Procedure: Left Heart Cath History of Present Illness: 57 year old male with past medical history HFpEF, HTN, Morbid obesity status post gastric sleeve surgery 07/2020, HLD, MIRELLA presents for [facility] with Dr. Pillai. Has been experiencing pressure-like chest pain over past week- worse with stress and physical activity and alleviated by rest. Did have some chest pain laying in bed last night, as well as this morning walking into the hospital. No chest pain currently- went away after sitting down in pre-op waiting room. Taken 81mg ASA REVERSE UNIT OPERATOR. This patient's prior inpatient/outpatient H&P from last [...] HFrEF (heart failure with reduced ejection fraction) ([facility]) ??? HLD (hyperlipidemia) ??? HTN (hypertension) ??? [...] for performance of procedure. Monitoring: heart rate, manager monitoring, continuous pulse oximetry, frequent blood pressure checks,level [...] was obtained. SUE Chawla 06/22/2023 11:00 AM CONSULTANT documented in this encounter OR Notes * Brief Op Note - Jaylen Gan MD - 06/23/2023 3:37 PM CST [facility] BRIEF POST PROCEDURE AND SEDATION NOTE Howie Delaney is a 57 year old male born on 1965 Pre-Op Diagnosis: Angina Post-Op Diagnosis: Normal coronary arteries, right radial access Attending: Dr. reeves Well Shooter(s): Jaylen Gan MD EBL: 5 cc Type of anesthesia: Moderate 50mcg IV fentanyl and 1mg IV midazolam, was used for sedation. 1% lidocaine was administered subcutaneously. Monitoring: Monitoring consisted of: heart rate, manager monitoring, continuous pulse oximetry, continuous capnometry, frequent blood pressure checks, level of consciousness, IV access, constant attendance by RN until patient recovered and constant attendance until patient stable. Response: Vital signs stable, airway patent and O2 saturations greater than 92%. Patient Status Post Procedure: Hemodynamically and neurologically stable. Complications: none Jaylen Gan MD 06/23/2023 CONSULTANT documented in this encounter Plan of Treatment [...] Comments CORONARY ANGIOGRAPHY Routine 06/23/2023 4:07 PM CROP CONSULTANT Chest pain, unspecified type CCL LEFT HEART CATH Routine 06/23/2023 4 :07 PM CROP CONSULTANT Chest pain, unspecified type EKG 12-LEAD Routine 06/23/2023 12:25 PM CROP CONSULTANT Chest pain, unspecified type documented in this encounter Results * CCL LEFT HEART CATH, CORONARY ANGIOGRAPHY (06/23/2023 4:07 PM CROP CONSULTANT) Anatomical Region Laterality Modality X-Ray Angiograph y Narrative 06/27/2023 9:58 AM CROP CONSULTANT ?The coronary vessels are normal. ?LVEDP: 25 mmHg. ?Right radial artery access. Reason for Procedure 57 year old male with past medical history HFpEF, HTN, Morbid obesity status post gastric sleeve surgery 07/2020, HLD, MIRELLA presents for [facility]. Has been experiencing pressure-like chest pain [...] PROCS * EKG 12-LEAD (06/23/2023 12:25 PM CROP CONSULTANT) Ventricular Rate 51 BPM [facility] Atrial Rate 51 BPM [facility] P-R Interval 162 ms [facility] QRS Duration ms 116 ms [facility] Q-T Interval ms 466 ms [facility] QTC Calculation (Bezet) 429 ms [facility] Calculated P [place] 21 degrees [facility] Calculated R [place] 45 degrees [facility] Calculated T [place] 32 degrees [facility] Interpretation EKG SINUS BRADYCARDIA POSSIBLE LEFT ATRIAL ENLARGEMENT BORDERLINE ECG WHEN COMPARED WITH ECG OF 21-JUN-2023 14:14, SINUS BRADYCARDIA HAS REPLACED NORMAL SINUS RHYTHM Confirmed by MD RITESH, JAY ([id number]) on 06/24/2023 1:43:17 PM [facility] MUSE 06/23/2023 12:2 5 PM CROP CONSULTANT 06/24/2023 1:43 PM CROP CONSULTANT Christie ROGERS ECG ORDERABLES [facility] MUSE documented in this encounter Visit Diagnoses [...] PRN, Other, peripheral line flush, Starting on Tue06/23/23 at 1639, Until Tue06/23/23 at 2032, Flush peripheral IV catheter with 1-10 mL of normal saline before and after medications and prn to clear blood from the line or to verify patency., Post-op 0.9% NaCl injection 3 mL 3 mL, Intracatheter, EVERY 8 HOURS, First dose on Tue06/23/23 at 1645, Until Discontinued, Flush peripheral IV catheter with 3 mL of normal saline every 8 hours., Post-op acetaminophen (Tylenol) tablet 325 mg 325 mg, Oral, EVERY 4 HOURS PRN, Moderate Pain, Starting on Tue06/23/23 at 1757, Until Sushila 06/23/23 at 1810, Patient preference for lesser PRN pain meds may be honored when the patient requests a less strong medication, a lower dose, or a less intrusive route of administration when the lesser drug, dose and route have been ordered for the patient. This patient request must be documented in the MAR. $ Given 06/23/2023 6:02 PM CROP CONSULTANT 325 mg acetaminophen (Tylenol) tablet 325 mg 325 mg, Oral, EVERY 4 HOURS PRN, Moderate Pain, Mild Pain, Severe Pain, Starting on Sushila 06/23/23 at 1810, Until Sushila 06/23/23 at 2032, Patient preference for lesser PRN pain meds [...] at 1215 $ Given 06/23/2023 12:29 PM CROP CONSULTANT 243 mg fentaNYL (PF) (Sublimaze) injection PRN, Starting on Sushila 06/23/23 at 1554, Until Sushila 06/23/23 at 2032, Intra-procedure (CATH) $ Given 06/23/2023 3:54 PM CROP CONSULTANT 50 mcg iopamidol (Isovue 370) 76 % contrast PRN, Starting on Sushila 06/23/23 at 1610, Until Sushila 06/23/23 at 2032, Intra-procedure (CATH) $ Given 06/23/2023 4:10 PM CROP CONSULTANT 70 mL lidocaine (Xylocaine) 1 % injection PRN, Starting on Sushila 06/23/23 at 1555, Until Sushila 06/23/23 at 2033, Intra-procedure (CATH) $ Given 06/23/2023 3:55 PM CROP CONSULTANT 3 mL Right Wrist midazolam (Versed) injection PRN, Starting on Sushila 06/23/23 at 1554, Until Sushila 06/23/23 at 2033, Intra-procedure (CATH) $ Given 06/23/2023 3:54 PM CROP CONSULTANT 1 mg nitroGLYCERIN 200 mcg, verapamil (Isoptin) 5 mg 4 mL Intra-arterial, PRN, Starting on Sushila 06/23/23 at 1558, Until Sushila 06/23/23 at 2032, Intra-procedure (CATH) $ Given 06/23/2023 3:58 PM CROP CONSULTANT 4 mL documented in this encounter Active and Recently Administered Medications Times are shown in CROP CONSULTANT. Scheduled Medication Order 06/21/2023 06/22/2023 06/23/2023 0.9% [...] (PF) (Sublimaze) injection PRN, Starting on Sushila 224 at 1554, Until Sushila 2/24 at 2033, Intra-procedure (CATH) 1554 ($ Given - Prov ider: Jose Roberto Leblanc RN) iopamidol (Isovue 370) 76 % contrast PRN, Starting on Sushila 06/23/23 at 1610, Until Sushila 2/24 at 2033, Intra-procedure (CATH) 1610 ($ Given - Prov ider: Minerva Reeves MD) lidocaine (Xylocaine) 1 % injection PRN, Starting on Sushila 06/23/23 at 1555, Until Sushila 224 at 2033, Intra-procedure (CATH) 1555 ($ Given - Prov ider: Minerva Reeves MD) midazolam (Versed) injection PRN, Starting on Sushila 06/23/23 at 1554, Until Sushila 224 at 2033, Intra-procedure (CATH) 1554 ($ Given - Prov ider: Jose Roberto Leblanc RN) nitroGLYCERIN 200 mcg, verapamil (Isoptin) 5 mg 4 mL Intra-arterial, PRN, Starting on Sushila 06/23/23 at 1558, Until Sushila 06/23/23 at 2033, Intra-procedure (CATH) 1558 ($ Given - Prov [...] Post-op documented in this encounter Care Teams Tax Compliance Manager Relationship Specialty Start Date End Date Puneet Hughes MD PCP - General Internal Medicine 06/21/23 documented as of this encounter
--- OUTSIDE RECORDS SUMMARY | 2024-05-22 05:41 | XMS_ITS | Encounter Summary ---
Author Organization [facility] Health Address [address] [place] [address] Care Team Providers Care Shroudman Name Role Phone Natasha Bates PA-C Primary Care Provider + Encounter Details Date Type Department Care Team (Latest Contact Info) Description 06/19/2023 Travel Social History Tobacco Use Types Packs/Day [...] Diagnoses Not on filedocumented in this encounter Additional Health Concerns Infection Onset Date Last Indicated Resolved Time COVID-19 Under Investigation 06/19/2023 06/19/2023 06/19/2023 4:55 PM WHIPPER BEATER documented as of this encounter Care Teams Shroudman Relationship Specialty Start Date End Date Natasha Bates PA-C [address] [place] [phone] PCP - General 03/21/19 06/20/23 documented as of this encounter
--- OUTSIDE RECORDS SUMMARY | 2024-05-22 05:41 | XMS_ITS | Encounter Summary ---
Author Organization [facility] Health Address [address] [place] [address] Care Team Providers Care Induction Furnace Operator Name Role Phone Natasha Bates PA-C Primary Care Provider + Encounter Details Date Type Department Care Team (Latest Contact Info) Description 03/12/2021 Travel Social History Tobacco Use Types Packs/Day [...] AM CDT documented as of this encounter Functional Status [...] on filedocumented in this encounter Care Teams Induction Furnace Operator Relationship Specialty Start Date End Date Natasha Bates PA-C [address] [place] [phone] PCP - General 03/21/19 06/20/23 documented as of this encounter
--- OUTSIDE RECORDS SUMMARY | 2024-05-22 05:41 | XMS_ITS | Encounter Summary ---
Author Organization [facility] Health Address [address] [facility] [place] [address] Care Team Providers Care Marine Cargo Surveyor Name Role Phone Natsaha Bates PA-C Primary Care Provider + Reason for Visit * Reason Comments Refill Request Encounter Details Date Type Department Care Team (Late st Contact Info) Description 01/06/2021 Refill [facility] [address] [facility] [address] [place] [address] [address], FLEET DISPATCH MANAGER-TAPER AND FLOATER [address] [facility] [address] [place] [address] Refill Request Social History Tobacco Use Types Packs/Day Years [...] on filedocumented in this encounter Care Teams Marine Cargo Surveyor Relationship Specialty Start Date End Date Natasha Bates PA-C [address] [place] [phone] PCP - General 03/21/19 06/20/23 documented as of this encounter
--- OUTSIDE RECORDS SUMMARY | 2024-05-22 05:41 | XMS_ITS | Encounter Summary ---
Author Organization [facility] Health Address [address] [place] [address] Care Team Providers Care Traffic Routing Engineer Name Role Phone Natasha Bates PA-C Primary Care Provider + Reason for Visit * Reason Comments Skin Lesion new patient, spot on taoist Rosacea new patient , on fac e Encounter Details Date Type Department Care Team (Late st Contact Info) Description 05/06/2021 11:20 AM NURSING SCHEDULER Office Visit [facility] General Dermatology [address] [facility] [place] [phone] Jeremias Haile MD [address] [place] [address] Venous stasis dermatitis of left lower extremity (Primary Dx); Seborrheic keratosis, inflamed; Seborrheic keratosis; Other rosacea Social History Tobacco Use Types Packs/Day Years [...] this encounter Patient Instructions * Patient Instructions* Puneet Monroy MD - 05/06/2021 11:54 AM NURSING SCHEDULER Thank you for visiting the [facility] today! Please follow these instructions as we discussed in clinic today: 1) Contact our [facility] Dermatology office to schedule consultation for treatment of facial redness / rosacea. Their telephone number is [phone]. 2) We have prescribed a steroid cream (triamcinolone 0.025% cream) for your left nelson that you can apply twice daily to help resolve skin irritation from venous stasis, which we call stasis dermatitis. Wearing your compression stockings regularly will be helpful in preventing recurrence. 3) Please schedule a full body skin exam to check you all over given your family history of melanoma. 4) For wound care of spot we froze, see wound care below. POST CRYOTHERAPY CARE ?? Redness and swelling may occur within minutes of thawing. ?? Avoid any trauma to the treated site. ?? A clear blister or a blood blister may appear on the skin in the treated area within 12 to 48 hours. ?? If the blister is painful, you may drain the blister using a sterile pin. To sterilize the pin, hold it over the flame of a match or wipe the tip with an alcohol-soaked cotton ball. Poke a hole inthe blister and drain the fluid. Do not remove the skin of the blister; this blister acts as a bandage for the area. ?? After 24 hours, clean the areas twice a day with mild soap and water. Pat dry and apply petroleum jelly with a cotton swab. The petroleum jelly will help keep the area moist, help prevent a scab from forming, and less the chance of infection. If you wish, you may cover the area with a bandage. Notify your physician if you have: ?? Yellowish/greenish discharge from the treated area ?? Increasing tenderness or pain ?? Warmth of the area and/or fever over 101 F ?? Red streaks up the arm or leg close to the treated area ING SCHEDULER documented in this encounter Progress Notes * Puneet Monroy MD - 05/06/2021 11:41 AM CST Chief Complaint Patient presents with ??? Skin Lesion new patient, spot on taoist ??? Rosacea new patient , on face HPI: Howie Delaney is a 55 year old male who presents for spot check. Concerns: 1. Left forehead pigmented lesion - has been present for 2-4 months - seems to be enlarging - wants to make sure it is not cancerous. 2. R postauricular neck lesion - pruritic, gets inflamed when gets caught on masks - desires treatment 3. Rosacea - present for many years - described as redness, dilated blood vessels without papules or pustules - no known triggers - previous treatments: benzocaine cream (no relief) - has not tried topicals, orals, or laser treatment in past 4. L nelson rash - has been present for several months - history of venous stasis in left leg - seems to be worsened/irritated by wearing compression stockings - typically is very itchy but has been better recently - reports he has taken multiple courses of antibiotics for this issue in the past for suspected cellulitis Personal history of skin cancer: none Family history of skin cancer: mother and maternal grandmother with MM Physical exam: No acute distress. Mood clear, affect appropriate. Alert and oriented. Sclera anicteric, conjunctiva clear. Mucous membranes moist. Skin exam was conducted to include the scalp, face, neck, and left lower leg, and was normal with the following exceptions: - brown waxy stuck-on flat-topped symmetric papule on L forehead - 2-3 mm pedunculated verrucous keratosis with surrounding inflammation on R postauricular neck - bilateral cheeks: erythematous patches with several telangiectasias - LLE: mild erythema, induration of nelson; 1+ pitting edema Assessment/Plan: Stasis dermatitis, LLE - uncontrolled - rx triamcinolone 0.025% cream bid affected areas - rec daily compression stockings once irritation improved Rosacea, ET type - uncontrolled - discussed treatment options are limited given subtype - provided pt phone number of cosmetics department to discuss treatment with V beam laser, which would likely be most efficacious treatment - discussed daily use of broad-spectrum SPF30+ sunscreen, avoid triggers Inflamed verrucous keratosis, R postauricular neck - LN2 to 1 lesion - see proc note Seborrheic keratosis, L forehead - benign, reassurance Return to clinic in 3 months for TBSE given strong family history of MM Coding Rationale New or est? New Patient Highest problem complexity: 1 or more chronic illnesses with exacerbation, progression, or side effects of treatment Highest level of risk: Moderate Suggested code: 94085 Puneet Monroy MD [facility] Dermatology Resident, PGY-2 ING SCHEDULER Associated attestation - Jeremias Haile MD - 05/12/2021 3:41 PM NURSING SCHEDULER I have seen and examined the patient with the resident and I agree with the findings and plan of care as documented by the resident. Date of Service: 05/06/2021 Jeremias Haile MD documented in this encounter Procedure Notes * Puneet Monroy MD - 05/06/2021 12:31 PM CSTAssociated Order(s): PROC DESTRUCT BENIGN LESION NOT SKIN TAG Procedure(s): IL DESTRUCT BENIGN LESION, 1-14 Pre-Procedure Diagnose(s): Seborrheic keratosis, inflamed Diagnosis and treatment options discussed. Liquid nitrogen was applied to 1 lesion (R postauricularneck) for 5-7 seconds for 1 cycle. Wound care reviewed. Puneet Monroy MD [facility] Dermatology Resident, PGY-II ING SCHEDULER Associated attestation - Jeremias Haile MD - 05/13/2021 12:49 PM NURSING SCHEDULER A procedure was performed. I was present for the stokes and critical portions of the procedure. See procedure note. Jeremias Haile MD documented in this encounter Plan of Treatment [...] Procedure Name Priority Date/Time Associated Diagnosis Comments IL DESTRUCT BENIGN LESION, 1-14 Routine 05/06/2021 12:31 PM NURSING SCHEDULER Seborrheic keratosis, inflamed documented in this encounter Results * IL DESTRUCT BENIGN LESION, -14 (05/06/2021 12:31 PM NURSING SCHEDULER) Narrative Jeremias Haile MD - 05/06/2021 12:31 PM NURSING SCHEDULER Puneet Monroy MD ? 05/06/2021 12:31 PM Diagnosis and treatment options discussed. Liquid nitrogen was applied to 1 lesion (R postauricular neck) for 5-7 seconds for 1 cycle. Wound care reviewed. Puneet Monroy MD [facility] Dermatology Resident, PGY-II Jeremias Haile MD PROCEDURE/MINOR SURG ICAL ORDERABLES documented in this encounter Visit Diagnoses Diagnosis Venous stasis dermatitis of left lower extremity- Primary Seborrheic keratosis, inflamed Inflamed seborrheic keratosis Seborrheic keratosis Other rosacea documented in this encounter Care Teams Traffic Routing Engineer Relationship Specialty Start Date End Date Natasha Bates PA-C [address] [place] [phone] PCP - General 03/21/19 06/20/23 documented as of this encounter
--- OUTSIDE RECORDS SUMMARY | 2024-05-22 05:41 | XMS_ITS | Encounter Summary ---
Author Organization [facility] Health Address [address] [facility] [place] [address] Care Team Providers Care Kettle Coordinator Name Role Phone Natasha Bates PA-C Primary Care Provider + Encounter Details Date Type Department Care Team (Late st Contact Info) Description 03/18/2022 Orders Only [facility] [address] [facility] [address] [place] [address] Christie Darby, PA [address] [place] [address] Palpitations Social History Tobacco Use Types Packs/Day Years [...] as of this encounter Visit Diagnoses Diagnosis Palpitations documented in this encounter Care Teams Kettle Coordinator Relationship Specialty Start Date End Date Natasha Bates PA-C [address] [place] [phone] PCP - General 03/21/19 06/20/23 documented as of this encounter
--- OUTSIDE RECORDS SUMMARY | 2024-05-22 05:41 | XMS_ITS | Encounter Summary ---
Author Organization [facility] Health Address [address] [place] [address] Care Team Providers Care Mail Processing Equipment Mechanic Name Role Phone Puneet Hughes MD Primary Care Provider [phone] Encounter Details Date Type Department Care Team (Latest Contact Info) Description 06/21/2023 Travel Social History Tobacco Use Types Packs/Day [...] on filedocumented in this encounter Care Teams Mail Processing Equipment Mechanic Relationship Specialty Start Date End Date Puneet Hughes MD PCP - General Internal Medicine 06/21/23 documented as of this encounter
--- OUTSIDE RECORDS SUMMARY | 2024-05-22 05:41 | XMS_ITS | Encounter Summary ---
Author Organization [facility] Address [address] [place] [address] Care Team Providers Care Silver Lap Machine Tender Name Role Phone Natasha Bates PA-C Primary Care Provider + Reason for Referral * Radiology Services (Routine) - Canceled Specialty Diagnoses / Procedures Referred By Malena t Referred To Contact Echosonography Diagnoses Palpitations Procedures ECHO COMPLETE Christie Darby PA [address] [place] [address] [facility] Echo-Uct [facility] [address] [facility], [address] [facility] [place] [address] Referral ID Status Reason Start Date Expiration Date V isits Requested Visits Authorized [id number] Canceled 03/18/2022 03/18/2023 1 1 Reason for Visit * Reason Comments Follow-up 6 mos f/u Encounter Details Date Type Department Care Team (Late st Contact Info) Description 03/18/2022 9:30 AM CDT Office Visit [facility] [address] [facility] [address] [facility] [place] [address] Christie Darby PA [address] [place] [address] Palpitations (Primary Dx) Social History Tobacco Use Types [...] Sign Reading Time Taken Comments Blood Pressure 110/64 03/18/2022 9:36 AM CDT Pulse 86 03/18/2022 9:36 AM CDT Temperature - - Respiratory Rate - - Oxygen Saturation 95% 03/18/2022 9:36 AM CDT Inhaled Oxygen Concentration - - Weight 116.6 kg (257 lb) 03/18/2022 9:36 AM CDT Height 182.9 cm (6') 03/18/2022 9:36 AM CDT Body Mass Index 34.86 03/18/2022 9:36 AM CDT documented in this encounter Functional [...] this encounter Patient Instructions * Patient Instructions* Christie Darby PA - 03/18/2022 10:11 AM CDT Follow up in 1 month with Christie Darby with same day echo 48 hour holter documented in this encounter Progress Notes * Christie Darby PA - 03/18/2022 10:24 AM CDT Assessment and Plan: Problem List Items Addressed This Visit None Visit Diagnoses Palpitations - Primary Relevant Orders ECHO COMPLETE Holter Hookup - 24 or 48 hr 1. Palpitations -EKG shows NSR, no PACs or PVCs -LHC in 2019 showed no evidence of coronary disease. Lipid panel in August 2021 well controlled -Likely benign extra beats, Holter in past has been unremarkable -Patient wanting reassurance- will repeat 48 hour holter -Encouraged avoiding stress, caffeine, and other triggers 2. CHFpEF -No longer on medications, takes PRN lasix -Repeat TTE next visit -Follow-up in 1 month 3. HTN -Controlled, no longer requiring medication since gastric sleeve Chief Complaint: palpitations History of Present Illness: 56 year old male with PMHx significant for CKD, HTN,??Obesity s/p gastric sleeve 07/2020 and weight loss of 90lbs, HLD, MIRELLA on CPAP presents to clinic for follow- up. He reports since sleeve doing well, off all blood pressure medications. Lost 100 lbs. Reports for past week has had squeezing sensation in chest with fluttering. Episodes are brief and last seconds to minutes, not correlated with exertion. No caffeine use. 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 If cardiac work-up unremarkable wondering if he should see his PCP regarding anxiety. Review of Systems: ROS negative unless stated in the HPI PHYSICAL EXAM: BP 110/64 Pulse 86 Ht 6' (1.829 m) Wt 257 lb (116.6 kg) SpO2 95% Body mass index is 34.86 kg/m??. GENERAL: No acute distress, pleasant, appears stated age SKIN: Warm and dry with good turgor EYES: Normal sclera LUNGS: Clear to auscultation, no wheezing, crackles, or rales NECK: No JVD, no carotid bruits HEART: Regular rate and rhythm, S1, S2. No murmurs gallups or rubs EXTREMITIES: No edema, cyanosis or clubbing. Pulses are 1-2 plus and symmetrical. NEURO: No focal deficit. MEDICATIONS FOR CURRENT ENCOUNTER: Current Outpatient Medications Medication ??? acetaminophen (TYLENOL) 325 MG tablet ??? allopurinol (ZYLOPRIM) 100 MG tablet ??? atorvastatin (LIPITOR) 40 MG tablet ??? CALCIUM PO ??? Cyanocobalamin (B-12 PO) ??? FLUoxetine (PROZAC) 20 MG capsule ??? furosemide (LASIX) 40 MG tablet ??? gabapentin (NEURONTIN) 600 MG tablet ??? Multiple Vitamin (DAILY-RAKESH) TABS ??? patiromer (VELTASSA) 16.8 g packet ??? triamcinolone acetonide (KENALOG) 0.025 % cream No current facility-administered medications for this visit. DATA: ECHO: 12/10 Summary Technically difficult/suboptimal echocardiogram. Left ventricular systolic function is hyperdynamic with an ejection fraction of 75-80%. The left ventricular diastolic function is normal, consistent with normal left ventricle filling pressures. Normal right ventricular systolic function. No significant valvular dysfuntion. Mild pulmonary hypertension, estimated pulmonary arterial systolic pressure is 37 mmHg. There is no evidence of ASD/PFO by color Doppler and bubble study interrogation. Findings Left Ventricle Left ventricular systolic function is hyperdynamic with an ejection fraction of 75-80%. The left ventricle is normal size. There is mild concentric left ventricular hypertrophy. Left ventricular segmental wall motion is normal. The leftventricular diastolic function is normal, consistent with normal left ventricle filling pressures. Right Ventricle The right ventricular cavity size is normal. Normal right ventricular systolic function. Ventricular Septum The ventricular septum is intact by two-dimensional and color flow interrogation. Left Atrium The left atrium is normal. Right Atrium The right atrium is normal. Atrial Septum There is no evidence of ASD/PFO by color Doppler and bubble study interrogation. Aortic Valve The aortic valve is trileaflet. Heavily calcified non coronary cusp with restricted motion. There is no aortic stenosis with a peak velocity of 1.8 m/sec, mean gradient of 8 mmHg, aortic valve area of 5.7 cm??, and an NSDI of 0.75. There is no aortic regurgitation. Pulmonary Valve The pulmonic valve is structurally normal. There is no Doppler evidence of pulmonic valve sclerosisor stenosis. There is mild pulmonic regurgitation. Agitated Saline 10.00 ml Definity 0.50 ml Mitral Valve The mitral valve leaflets are structurally normal. There is no mitral stenosis. There is mild mitral regurgitation. Tricuspid Valve The tricuspid valve leaflets are structurally normal. There is no tricuspid stenosis. There is mildtricuspid regurgitation. Mild pulmonary hypertension, estimated pulmonary arterial systolic pressure is 37 mmHg. Aorta The aortic measurements are indexed to age and body surface area. The aortic root at the sinus of valsalva is borderline dilated measuring 3.7 cm.. The proximal ascending aorta is normal in size measuring 3.53 cm with an index of 1.28 cm/m2. Inferior Vena Cava The IVC is normal in size (< 2.1 cm), > 50% respiratory variance, RA pressure normal at 3 mmHg. Pericardium / Pleural Effusion The pericardium is normal. There is trace circumferential pericardial effusion visualized. Wall Motion CATH/STRESS TESTIN11/2019 HEMODYNAMIC FINDINGS: ?? Pressures: LV: 116/24 mmHg [...] and provides RPDA. ?? DOMINANCE: Left ?? CONTRAST: 15 ml RADIATION DOSE: Cumulative AK: 551.53 mGy Cumulative DAP: 85459 mGycm2 ?? DIAGNOSTIC INTERPRETATIONS: 1) Elevated filling pressure with moderate pulmonary venous hypertension (RA 15 mmHg, PAD 30 mmHg, LVEDP 24 mmHg). 2) Normal coronaries ?? RECOMMENDATIONS AFTER DIAGNOSTIC CATHETERIZATION: Medical management for worsening dyspnea to achieve euvolemic status. EKG: EKG shows NSR documented in this encounter Procedure Notes * Christie Darby PA - 03/18/2022 10:26 AM CDTAssociated Order(s): PROC EKG IN CLINIC Procedure(s): PROC EKG IN CLINIC Pre-Procedure Diagnose(s): Palpitations EKG shows NSR documented in this encounter Plan of Treatment Scheduled Orders Name Type Priority Associated Diagnoses Orde r Schedule ECHO COMPLETE Echocardiography Radiant Routine Palpitations Expected: 03/18/2022, Expires: 03/18/2023 documented as of this encounter Goals Goal [...] Procedure Name Priority Date/Time Associated Diagnosis Comments PROC EKG IN CLINIC Routine 03/18/2022 10 :26 AM CDT Palpitations documented in this encounter Results * PROC EKG IN CLINIC (03/18/2022 10:26 AM CDT) Narrative Loli Bell. - 03/18/2022 10:26 AM CDT Christie Darby PA ? 03/18/2022 10:38 AM EKG shows NSR Procedure Note Christie Darby PA - 03/18/2022 10:26 AM CDT EKG shows NSR Christie ROGERS ECG ORDERABLES documented in this encounter Visit Diagnoses Diagnosis Palpitations- Primary documented in this encounter Care Teams Silver Lap Machine Tender Relationship Specialty Start Date End Date Natasha Bates PA-C [address] [place] [phone] PCP - General 03/21/19 06/20/23 documented as of this encounter
--- OUTSIDE RECORDS SUMMARY | 2024-05-22 05:41 | XMS_ITS | Encounter Summary ---
Author Organization [facility] Address [address] [facility] [place] [address] Care Team Providers Care Director Of Teenage Activities Name Role Phone Puneet Hughes MD Primary Care Provider [phone] Reason for Visit * Reason Comments Refill Request Encounter Details Date Type Department Care Team (Late st Contact Info) Description 06/21/2023 Refill [facility] - Cardiology [address] [phone] Kaylynn Pillai MD [address] [address] Refill Request Social History Tobacco Use Types [...] as of this encounter Visit Diagnoses Diagnosis Chest pain, unspecified type documented in this encounter Care Teams Director Of Teenage Activities Relationship Specialty Start Date End Date Puneet Hughes MD PCP - General Internal Medicine 06/21/23 documented as of this encounter
--- OUTSIDE RECORDS SUMMARY | 2024-05-22 05:41 | XMS_ITS | Encounter Summary ---
Author Organization [facility] Address [address] [facility] [place] [address] Care Team Providers Care Abrasive Sawyer Name Role Phone Natasha Bates PA-C Primary Care Provider + Encounter Details Date Type Department Care Team (Late st Contact Info) Description 07/06/2021 Orders Only [facility] - Nephrology [address] [place] [address], [place] [address] Gerardo Zavala MD [address] [place] [address] [place] [id number] Social History Tobacco Use Types Packs/Day Years [...] on filedocumented in this encounter Care Teams Abrasive Sawyer Relationship Specialty Start Date End Date Natasha Bates PA-C [address] [place] [phone] PCP - General 03/21/19 06/20/23 documented as of this encounter
--- OUTSIDE RECORDS SUMMARY | 2024-05-22 05:41 | XMS_ITS | Encounter Summary ---
Author Organization [facility] Address [address] [facility] [place] [address] Care Team Providers Care Revenue Accounting Manager Name Role Phone Natasha Bates PA-C Primary Care Provider + Reason for Visit * Reason Comments Follow-up no complaints Encounter Details Date Type Department Care Team (Late st Contact Info) Description 06/17/2021 12:30 PM OPERATION MANAGER Office Visit [facility] - Nephrology [address] [place] [address], [place] [address] Gerardo Zavala MD [address] [place] [address] [place] [address] Hyperkalemia (Primary Dx); CRD (chronic renal disease), stage II; Essential hypertension Social History Tobacco Use Types [...] Sign Reading Time Taken Comments Blood Pressure 115/72 06/17/2021 12:43 PM OPERATION MANAGER Pulse 79 06/17/2021 12:43 PM OPERATION MANAGER Temperature - - Respiratory Rate 24 06/17/2021 12:4 3 PM OPERATION MANAGER Oxygen Saturation 97% 06/17/2021 12: 43 PM OPERATION MANAGER Inhaled Oxygen Concentration - - Weight 125.8 kg (277 lb 6.4 oz) 022 12:43 PM OPERATION MANAGER Height - - Body Mass Index 37.62 05/04/2021 11:00 AM OPERATION MANAGER documented in this encounter Functional Status Functional [...] Progress Notes * Angela Sheikh MD - 06/17/2021 1:40 PM CST Nephrology Clinic Note CC: F/u his kidney function HPI: Mr. Howie Delaney is a 55 year old male PMH of HTN, Morbid obesity, HFpEF (EF 75% in 06/11/19), MIRELLA Home O2 since 05/2019, CPAP for ~ 1 year, pulmonary HTN, CKD Stage 3 , s/p gastric sleeve at [facility] 08/04/20, lost 110 lbs since 11/13, who presents to the clinic for f/u his kidney function. He states He was placed artificial urinary sphincter in 2016 after prostat/bladder procedure. It was taken out in 01/2021 and placed second artificial sphincter on 05/24/2021. After surgery, he experienced difficulty urination, swelling in scrotum and LE edema. Found crea of 1.9 and K 5.8. He states he takes furoemide 20 mg twice a week. He was admitted to [facility] for evaluation. CT revealed no obstruction. He had alsofound asymptomatic COVID19 infection. He states he got 2 vaccine with booster. His crea level decrease to 1.3 on 06/12 within baseline level and K of 5.3. He states that they said his high crea level was more likely due to dehydration. His last Renal US (01/09) revealed that renal size is normal. Renal par echogenicity is normal. There is a simple cyst measuring 1.8 cm in the upper pole of the right kidney. He is on Allopurinol 100 mg, furosemide 20 mg as needed, veltassa 8.4, Prozac , Lipitor 40 Review of Systems: Review of Systems Constitutional: Negative for chills and fever. Respiratory: Negative for cough, hemoptysis, sputum production and shortness of breath. Cardiovascular: Negative for chest pain, palpitations and leg swelling. Gastrointestinal: Negative for abdominal pain, diarrhea, nausea and vomiting. Genitourinary: Positive for dysuria and frequency. Neurological: Negative for dizziness and headaches. Past Medical History: Past Medical History: Diagnosis Date ??? CKD (chronic kidney disease) ??? HFrEF (heart failure with reduced ejection fraction) ??? HLD (hyperlipidemia) ??? HTN (hypertension) ??? MIRELLA (obstructive sleep apnea) 05/13/2019 Past Surgical History: Past Surgical History: Procedure Laterality Date ??? BARIATRIC SURGERY, GASTRIC gastric sleeve ??? BLADDER PROCEDURE/SURGERY arteficial EUS Social History: [...] file Social History Narrative Merged History Encounter Family History: Family History Problem Relation Name Age of Onset ??? Other Mother pulmonary hypertension ??? Other Nephew pulmonary hypertension Allergies: Allergies Allergen Reactions ??? Aspirin Unknown hematuria Medications: Current Outpatient Medications Medication Sig ??? acetaminophen (TYLENOL) 325 MG tablet Take 650 mg by mouth ??? allopurinol (ZYLOPRIM) 100 MG tablet ??? atorvastatin (LIPITOR) 40 MG tablet every 24 hours ??? CALCIUM PO ??? Cyanocobalamin (B-12 PO) ??? FLUoxetine (PROZAC) 20 MG capsule TAKE 1 CAPSULE BY MOUTH EVERY DAY IN THE MORNING ??? furosemide (LASIX) 40 MG tablet Take 20 mg by mouth every other day as needed ??? gabapentin (NEURONTIN) 600 MG tablet ??? Multiple Vitamin (DAILY-RAKESH) TABS Take 1 tablet by mouth once daily ??? patiromer (VELTASSA) 8.4 g packet Take 1 [...] oral medications 3 hours before or after. ??? triamcinolone acetonide (KENALOG) 0.025 % cream Apply to left nelson twice daily when inflamed. 30 days supply. No current facility-administered medications for this visit. Vitals: Vitals: 06/17/21 1243 BP: 115/72 Pulse: 79 Resp: 24 SpO2: 97% Weight: 125.8 kg (277 lb 6.4 oz) Physical Exam: General: sitting comfortable, not in acute distress, well developed, hydrated, nourished, appears stated age. HEENT: Normocephalic and atraumatic without tenderness, visible or palpable masses, depressions, orscarring, moist mucus membrane Neck: supple without adenopathy. Trachea is midline. Thyroid gland is normal without masses. No JVD. Respiratory: Normal vesicular breathing with equal air entry bilaterally without rales, ronchi, or wheezes. CVS: Heart rate and rhythm are normal. S1 and S2 are heard and are of normal intensity. No murmurs,gallops, or rubs are auscultated. Abdomen: Soft, Lax, Non-distended, Non-tender, audible Bowel sounds, Musculoskeletal: no tenderness or deformity, no joint swelling, no LE edema. Neuro: AxOx3, no focal signs, Skin: Skin in warm, dry and intact without rashes or lesions. Data Review Recent Labs Component Name 04/20/21 1324 11/21/20 0144 11/20/20 0600 11/20/20 0547 08/18/20 1659 02/04/20 0518 02/01/20201312/14/19 0745 11/06/19 0559 11/05/19 0436 11/03/19 2337 11/03/19 2337 HGB 13.6 13.1 12.9 - 13.7 12.7* - 12.1* - 11.9* - 12.1* WBC 10.3 10.4 11.0* - 12.7* 9.0 - 11.3* - 10.8* - 12.4* HCT 41.9 39.3 39.9 - 41.6 40.7 - 39.4 - 39.0 - 38.5* MCV 98* 92.0 93.2 - 90 89.6 - 92.7 - 94.7 - 92.8 PT - - 13.9 - - - - 13.1 - 13.6 - 13.4 INR - - 1.1 1.1 - - - 1.0 - 1.1 - 1.1 - = values in this interval not displayed. ) Recent Labs Component Name 04/20/21 1324 04/01/21 1447 02/17/21 1149 11/21/20 0144 11/20/20 0600 09/22/20 1343 08/18/20 1704 08/18/20 1659 02/13/20 1416 02/04/20 0518 02/04/20 0518 02/03/20 0402 02/03/20 0402 02/02/20 0436 02/02/20 0436 02/01/20201312/26/19 1507 BUN 22 26* 26* 26 29* 26* - 30* - - 28* - 28* - 27* - 27* CREATININE 1.33* 1.33* 1.45* 1.32* 1.66* 1.35* - 1.65* - - 1.4* - 1.5* - 1.4* - 1.5* NA - - - 141 141 - - - - - 136 - 138 - 138 - 143 CL - - - 103 101 - - - - - 96* - 97* - 98 - 105 CO2 27 28 28 31* 31* 28 - 24 - - 34* - 33* - 34* - 34* CALCIUM 9.1 8.7 9.0 8.5 8.6 9.3 - 9.0 - - 8.9 - 9.0 - 9.0 - 8.6 PHOS 3.9 3.9 - - - 3.2 - 3.7 - - - - - - - - 3.9 - = values in this interval not displayed. Recent Labs Component Name 11/20/20 0600 02/01/20201312/26/19 1507 11/06/19 0559 11/03/19 2337 06/13/19 0355 06/11/19 2229 06/10/19 2257 06/10/19 225 ALB 2.7* 2.9* 2.8* 2.5* 2.7* - 2.7* - 2.9* TBILI 0.5 0.7 - - 0.5 - 0.6 - 0.4 ALT 16 32 - - AST 20 28 - - - = values in this interval not displayed. No results for input(s): PHART, XJD5XLQ, PO2ART, FAA8HIK in the last 71215 hours. Ur WBC: Ur RBC: Ur blood: Ur Protein: UPCr: Assessment and Plan: Pt is a 55 year old male HTN, Morbid obesity, HFpEF, HTN, CKD Stage 2/3, s/p gastric sleeve at [facility] 08/04/20, lost 110 lbs since 11/13, who presents to the clinic for f/u his kidney function. 1. ERIC on CKD stage 2/3 - crea was 1.9 on 06/03/21 (baseline crea 1.3-1.5 since 2018) - crea reduced to 1.3 on 06/12/2021 - FENa 2.8 FEUrea 48.8 on 06/03/2021 - UPCR 733 mg/g 06/04/2021 - CT abd (06/03/2021) excluded obstruction - ERIC on CKD on 06/03 likely due to dehydration vs relatively obstruction component given newly placed artificial sphincter - Recommend to avoid nephrotoxins i.e. chronic NSAID use 2. Hyperkalemia - Last K level 5.3 on 06/12 - He is on veltassa 8.4 - suggested to increase veltassa to 16.8 g daily Patient was seen and discussed with attending physician, Dr. Suresh Sheikh MD Nephrology Fellow #[phone] ATION MANAGER Associated attestation - Gerardo Zavala MD - 06/18/2021 7:12 PM OPERATION MANAGER I have seen and examined the patient with house-staff at nephrology clinic. I agree with Dr. Sheikh's note the additions/modificiations listed below. Mr. Delaney is a 54 year old male who presents for follow up of CKD stage 3 and hyperkalemia. Patient has history significant for pulmonary HTN, MIRELLA, obesity, heart failure, with preserved EF, artificial urinary sphincter. His artificial sphincter was taken out in Jan 2021 for malfunctioning and patient required permanent souza catheter. A new sphincter was placed early this month. Creatinine elevated to 1.8-1.9 but has now decreased to his baseline of 1.3. At the same time, his K level increasedto 5.3-5.4. # EIRC on CKD stage 3 likely due to obstructive component related with artificial sphincter. Now creatinine is at his baseline. eGFR 64 ml/min/1.73 m2 # Hyperkalemia - Continue veltassa. Increase dose to 16.8 g/day documented in this encounter Plan of Treatment [...] II Chronic kidney disease, Stage II (mild) Essential hypertension documented in this encounter Care Teams Revenue Accounting Manager Relationship Specialty Start Date End Date Natasha Bates PA-C [address] [place] [phone] PCP - General 03/21/19 06/20/23 documented as of this encounter
--- OUTSIDE RECORDS SUMMARY | 2024-05-22 05:41 | XMS_ITS | Encounter Summary ---
Author Organization [facility] Health Address [address] [place] [address] Care Team Providers Care Pet Adoption Counselor Name Role Phone Natasha Bates PA-C Primary Care Provider + Reason for Visit * Reason Comments Follow-up no complaints Encounter Details Date Type Department Care Team (Late st Contact Info) Description 11/26/2020 3:30 PM CDT Office Visit [facility] - Nephrology [address] [place] [address], [place] [address] Gerardo Zavala MD [address] [place] [address] [place] [address] Stage 3 chronic kidney disease, unspecified whether stage 3a or 3b CKD (HCC) (Primary Dx) Social History Tobacco Use Types [...] Sign Reading Time Taken Comments Blood Pressure 116/74 11/26/2020 4:02 PM CDT Pulse 58 11/26/2020 4:02 PM CDT Temperature 36.3 ??C (97.4 ??F) 11/26/2020 4:02 PM CD T Respiratory Rate - - Oxygen Saturation 96% 11/26/2020 4:02 PM CDT Inhaled Oxygen Concentration - - Weight 142 kg (313 lb) 11/26/2020 4:02 PM CDT Height - - Body Mass Index 41.3 11/20/2020 11:13 PM CDT documented in this encounter Functional [...] as of this encounter Progress Notes * Gerardo Zavala MD - 11/26/2020 4:34 PM CDT Nephrology Clinic Note Date of Visit: 11/26/2020 Time of Visit: 4:34 PM No chief complaint on file. Mr. Delaney is a 54 year old [...] the range of 1.3 to 1.4, and K in the range of 4.7 to 5.8 with moderate proteinuria (0.4 to 0.6 mg/g creatinine). Patient underwent a gastric sleeve surgery on 08/04/2020. When he was seen in this clinic after surgery he had lost about 24 lbs of weight and had evidence of volume contraction and hypotension. His creatinine was 1.74 and K 4.8. Furosemide and BP medications were omitted and his clinical situation improved. Het was admitted to [facility] on 11/20/2020 due to fall after sleeping. At that time he had falen asleep without his CPAP machine. His labs at [facility] showed respiratory acidosis with hypoxia, creatinine 1.66. CT head did not show evidence of hemorrhage. Fibul XR showed a minimally displaced fracture of the fibular head. On 11/21/2020, serum creatinine was 1.32 and K 3.7 with a CO2 of 31. Subjective: Patient feels fine now. Denies SB, chest pain or cough. He has some pain in his right ankle and knee as well as moderate limitation to walk after his recent fall. Denies urinary symptoms Denies dizziness He has minimal or no edema in his legs for which he takes furosemide 40 mg irregularly Medications: allopurinol 200 mg BID, atorvastatin 40 mg, carvedilol 12.5 BID, Gabapentin 300 mg. Patient Active Problem List Diagnosis Date Noted ??? Acute pain of right knee 11/20/2020 [...] to Visit Medication Sig Dispense Refill ??? albuterol HFA (PROAIR HFA) 108 (90 [...] DAILY WITH THE MORNING AND EVENING MEAL 60 tablet 1 ??? Cyanocobalamin (B-12 PO) ??? furosemide (LASIX) 40 MG tablet Take 40 mg by mouth 2 times daily ??? gabapentin (NEURONTIN) 300 MG capsule Take 300 mg by mouth 3 times daily ??? Multiple Vitamin (DAILY-RAKESH) TABS Take 1 tablet by mouth once daily ??? traMADol (ULTRAM) 50 MG tablet Take 1 (one) tablet by mouth every 6 hours as needed for Pain 12tablet 0 No current facility-administered medications on file prior to visit. Allergies Allergen Reactions ??? Aspirin Unknown hematuria Past Surgical History: Procedure Laterality Date ??? BLADDER PROCEDURE/SURGERY arteficial EUS Family History Problem Relation Name Age of Onset ??? Other Mother pulmonary hypertension ??? Other Nephew pulmonary hypertension Social History Tobacco Use ??? Smoking status: Never Smoker ??? Smokeless tobacco: Never Used Vaping Use ??? Vaping Use: Never used Substance Use Topics ??? Alcohol use: Yes Comment: maybe 4 drinks a month ??? Drug use: Never Objective: Vitals: 11/26/20 1602 BP: 116/74 Pulse: 58 Temp: 97.4 ??F (36.3 ??C) SpO2: 96% Weight: (!) 142 kg (313 lb) Estimated body mass index is 41.3 kg/m?? as calculated from the following: Height as of 11/20/20: 1.854 m (6' 1 ). Weight as of this encounter: 142 kg (313 lb). General: Alert, cooperative, no distress, appears stated age. Head/Neck: Normocephalic, without obvious abnormality, atraumatic. Neck supple, symmetrical, trachea midline, no carotid bruit and no thyromegaly. ENT/Mouth: Conjunctivae/corneas clear. Nares normal. No cervical or supraclavicular LAD. CV: Regular rate and rhythm, S1, S2 normal, no murmur, click, rub or gallop. Pulses + BLE, trace lower extremity edema. Respiratory: Clear to auscultation bilaterally. GI: Soft, non-tender. Bowel sounds normal. No masses, No organomegaly. M/S: Back symmetric, no curvature. ROM normal. No CVA tenderness. Extremities normal. Moderate pain on palpation on right knee and ankle. Trace edema bilaterally. . Skin: Skin color normal. No rashes or lesions. Neurologic: Grossly normal. No asterixis. Psychiatric: Normal range mood/affect. Data Review Recent Labs Component Name 11/21/20 0144 11/20/20 0600 08/18/20 1659 02/04/20 0518 02/03/20 0402 06/10/19 2257 WBC 10.4 11.0* 12.7* 9.0 9.5 15.2* RBC 4.27* 4.28* 4.60 4.54 4.20* 4.67 HGB 13.1 12.9 13.7 12.7* 12.1* 13.3* HCT 39.3 39.9 41.6 40.7 37.8* 43.1 MCV 92.0 93.2 90 89.6 90.0 92.3 MCH 30.7 30.1 29.8 28.0 28.8 28.5 MCHC 33.3 32.3 32.9 31.2* 32.0 30.9* RDWSD 54.4* 55.0* - 47.8 48.1 48.3 RDW 16.3* 16.2* 15.3 14.6 14.7 14.4 MPV 13.0* 12.7 - 11.9 11.8 11.9 NRBCABS 0.00 0.00 - 0.00 0.00 0.00 NRBCAUTOPCT 0.0 0.0 - 0.0 0.0 0.0 NEUTPCT - 56.1 - 57.5 55.9 - LYMPHSPCT - 30.9 - 27.4 28.3 - MONOPCT - 7.6 - 8.4 8.6 - EOSPCT - 4.5 - 6.1* 6.5* 3 BASOPCT - 0.5 1 0.4 0.5 - IMMGRANSPCT - 0.4 - 0.2 0.2 - NEUTABS - 6.2 - 5.2 5.3 8.82* LYMPHS - 3.4 - 2.5 2.7 5.32* MONO - 0.84 - 0.76* 0.81* 0.61 EOS - 0.50* - 0.55* 0.62* 0.46* BASO - 0.06 - 0.04 0.05 - TOTCELLCNT - - - - - 100 Recent Labs Component Name 11/21/20 0144 11/20/20 0600 11/20/20 0547 09/22/20 1343 02/19/20 1532 02/04/20 0518 02/02/20 0436 02/01/20201312/26/19 1507 11/05/19 0436 11/03/19 2337 BUN 26 29* - 26* 41* 28* - 30* 27* - 31* CREATININE 1.32* 1.66* - 1.35* 1.56* 1.4* - 1.5* 1.5* - 1.4* NA 141 141 - - - 136 - 139 143 - 146* POTASSIUM 3.7 4.2 - 5.0 4.9 3.4* - 4.0 5.0* - 4.9* CL 103 101 - - - 96* - 98 105 - 107 CO2 31* 31* - 28 30 34* - 35* 34* - 30* CALCIUM 8.5 8.6 - 9.3 9.4 8.9 - 9.3 8.6 - 8.9 PROT - 6.2 - - - - - 7.5 - - 7.1 ALB - 2.7* - - - - - 2.9* 2.8* - 2.7* TBILI - 0.5 - - - - - 0.7 - - 0.5 ALKPHOS - 79 - - - - - 97 - - 87 ALT - 16 - - - - - 32 - - 15 AST - 20 - - - - - 28 - - 18 ANIONGAP 11 13 - - 11 9 - 10 9 - 14 BCR 20 17 - - - 20 - 20 18 - 22 OSMOLALITY 296 297 - - - 287 - 293 301* - 309* AGRATIO - 0.8* - - - - - 0.6* - - 0.6* EGFR 60* 45* >60 59* 46* 53* - 49* 49* - 53* - = values in this interval not displayed. No results for input(s): DSDNAIGGAB in the last 21315 hours. Recent Labs Lab 11/21/20 0144 11/03/19 2337 TSH 1.443 1.196 Recent Labs Component Name 11/20/20 0600 07/05/19 1232 HGBA1C 5.4 5.7* EAG 108 - No results for input(s): FERRITIN in the last 64420 hours. No results for input(s): IRON, TIBC in the last 40650 hours. No results for input(s): PTHINTACT in the last 70659 hours. Lab results smartLinks are not currently [...] results for input(s): ALBUMINRA in the last 75563 hours. Invalid input(s): CREATININEUR No results for input(s): MICROALB in the last 14400 hours. Assessment: # CKD stage 3. Creatinine has been stable in the range of 1.3 to 1.6.Moderate proteinuria, 443 mg/gcreatinine on 08/18/2020.Last creatinine on 11/20/2020, 1.3 - Will continue follow up -Renal function panel - Protein/creatinine ratio. # HTN: JOSE controlled without medication. He is taking furosemide 40 mg irregularly. # Hyperkalemia: K level controlled. Now 3.7. he has continued taking furosemide 40 mg daily irregularly. Elevated CO2, 31, likely due to volume contraction dur t furosemide. - Decrease furosemide to 20 mg daily # Hyperuricemia: Taking 200 mg allopurinol BID - Uric acid level Follow up in 6 months No orders of the defined types were placed in this encounter. Gerardo Oneal MD Internal Medicine, Div of Nephrology documented in this encounter Miscellaneous Notes * Communication Body - Letitia Vidal RN - 11/26/2020 6:07 PM CDT No complaints during assessment documented in this encounter Plan of Treatment Not on file documented as of this encounter Visit Diagnoses Diagnosis Stage 3 chronic kidney disease, unspecified whether stage 3a or 3b CKD (HCC)- Primary documented in this encounter Care Teams Pet Adoption Counselor Relationship Specialty Start Date End Date Natasha Bates PA-C [address] [place] [phone] PCP - General 03/21/19 06/20/23 documented as of this encounter
--- OUTSIDE RECORDS SUMMARY | 2024-05-22 05:41 | XMS_ITS | Encounter Summary ---
Author Organization [facility] Health Address [address] [facility] [place] [address] Care Team Providers Care Sock Turner Name Role Phone Natasha Bates PA-C Primary Care Provider + Puneet Hughes MD Primary Care Provider [phone] Reason for Visit * Reason Comments Refill Request Encounter Details Date Type Department Care Team (Late st Contact Info) Description 06/28/2021 Refill [facility] - Nephrology [address] [place] [address], [place] [address] Gerardo Zavala MD [address] [place] [address] [place] [address] Refill Request Social History Tobacco Use Types [...] Under Investigation 06/19/2023 06/19/2023 06/19/2023 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
--- OUTSIDE RECORDS SUMMARY | 2024-05-22 05:41 | XMS_ITS | Encounter Summary ---
Author Organization [facility] Address [address] [facility] [place] [address] Care Team Providers Care Dietetics Director Name Role Phone Natasha Bates PA-C Primary Care Provider + Reason for Visit * Radiology Services (Routine) - Closed Specialty Diagnoses / Procedures Referred By Malena sagastume Referred To Contact MRI Diagnoses Lumbar radiculopathy Procedures MRI LUMBAR SPINE WO CONTRAST Se Vargas MD [address] [facility] [address] [place] [address] [facility] Mri [address] [place] [address] Referral ID Status Reason Start Date Expiration Date Visits Re quested Visits Authorized [id number] Closed 02/20/2021 04/20/2021 1 1 Encounter Details Date Type Department Care Team (Latest Contact Info) Description 03/12/2021 11:29 AM CDT - 03/12/2021 11:59 PM CDT Hospital Encounter [facility] MRI [address] [place] [address] Se Vargas MD [facility] [facility] [address] [place] [address] Discharge Disposition: Home or Self Care Social [...] 05/13/2020 gabapentin (NEURONTIN) 600 MG tablet 03/05/2021 Multiple Vitamin (DAILY-RAKESH) TABS Take 1 tablet by mouth once daily cephalexin (KEFLEX) 500 MG capsule 03/05/2021 05/06/2021 FLUoxetine (PROZAC) 20 MG capsule TAKE 1 CAPSULE BY MOUTH EVERY DAY IN THE MORNING 02/26/2021 06/21/2023 gabapentin (NEURONTIN) 100 MG capsule Take 200 mg by mouth once daily 05/06/2021 oxybutynin (DITROPAN) 5 MG tablet TAKE 1 TABLET BY MOUTH TWICE DAILY DIRECTED 02/10/2021 05/06/2021 patiromer (VELTASSA) 8.4 g packet Take 1 [...] hours before or after. 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 There is severe left foraminal stenosis at L4-L5. Dictated by Freya Chowdhury MD (vice president of customer service). This report was approved ??by Freya Chowdhury ?? on 03/13/2021 1:58 PM . I, Dr. FABRIZIO GUAN have personally reviewed and interpreted this examination/study. This report was electronically signed by FABRIZIO GUAN ??on 03/13/2021 1:59 PM . Narrative 03/13/2021 [...] facet osteoarthritis. There is mild right and [id number] left neural foraminal stenosis. L4-L5: There is [...] left neural foraminal stenosis. Procedure Note Fabrizio Guan MD - 03/13/2021 MRI LUMBAR SPINE WO [...] facet osteoarthritis. There is mild right and soyi-hn-yubyifgu left neural foraminal stenosis. L4-L5: There is [...] stenosisat L4-L5. Dictated by Freya Chowdhury MD (vice president of customer service). This report was approved by Freya Chowdhury on 03/13/2021 1:58 PM . I, Dr. FABRIZIO GUAN have personally reviewed and interpreted this examination/study. This report was electronically signed by FABRIZIO GUAN on 03/13/2021 1:59 PM . Se Vargas MD MR ORDERABLES documented in this encounter Visit Diagnoses Diagnosis Lumbar radiculopathy Thoracic or lumbosacral neuritis or radiculitis, unspecified documented in this encounter Care Teams Dietetics Director Relationship Specialty Start Date End Date Natasha Bates PA-C [address] [place] [phone] PCP - General 03/21/19 06/20/23 documented as of this encounter
--- OUTSIDE RECORDS SUMMARY | 2024-05-22 05:41 | XMS_ITS | Encounter Summary ---
Author Organization [facility] Health Address [address] [place] [address] Care Team Providers Care Double End Tenoner Operator Name Role Phone Natasha Bates PA-C Primary Care Provider + Reason for Visit * Reason Onset Date Comments Future Appointment Hospitalization 06/11/2021 Encounter Details Date Type Department Care Team (Late st Contact Info) Description 06/11/2021 Telephone [facility] - [address] [address] Tenisha Cross RN Future Appointment; Hospitalization Social History Tobacco Use Types Packs/Day Years [...] encounter Miscellaneous Notes * Telephone Encounter - Tenisha Cross RN - 06/11/2021 3:52 PM CST Patient called triage requesting for a sooner appointment with Gerardo Beckham. Was recently hospitalized at [facility] d/t abnormal lab work, covid +,and bladder issue ( records should be in care everywhere) Patient continues to have pain in kidney areas, decreased urine output and abnormal lab work. Patient urologist Through [facility] is requesting patient to be seen maryam. [employer] documented in this encounter Plan of Treatment [...] on filedocumented in this encounter Care Teams Double End Tenoner Operator Relationship Specialty Start Date End Date Natasha Bates PA-C [address] [place] [phone] PCP - General 03/21/19 06/20/23 documented as of this encounter
--- OUTSIDE RECORDS SUMMARY | 2024-05-22 05:41 | XMS_ITS | Encounter Summary ---
Author Organization [facility] Health Address [address] [facility] [place] [address] Care Team Providers Care Glove Parts Inspector Name Role Phone Natasha Bates PA-C Primary Care Provider + Encounter Details Date Type Department Care Team (Late st Contact Info) Description 12/22/2020 9:40 AM CDT - 12/22/2020 11:59 PM CDT Hospital Encounter [facility] [address] [facility] [place] [phone] Tito Crowe MD [facility] [facility] [place] [address] Discharge Disposition: Home or Self Care Social [...] Take 2 (two) tablets by mouth 11/07/2019 atorvastatin (LIPITOR) 40 MG tablet every 24 hours CALCIUM PO Cyanocobalamin (B-12 PO) furosemide (LASIX) 40 MG tablet Take 0.5 (one-half) tablet by mouth every other day as needed 05/13/2020 Multiple Vitamin (DAILY-RAKESH) TABS Take 1 tablet by mouth once daily albuterol HFA (PROAIR HFA) 108 (90 Base) MCG/ACT inhalerIndications:Whe ezing Inhale 2 puffs by mouth every 4 hours as needed for Shortness of Breath, Wheezing or Cough 1 Inhaler 1 03/18/2020 01/29/2021 allopurinol (ZYLOPRIM) 100 MG tablet Take 100 mg by mouth 2 times daily 01/29/2021 carvedilol (COREG) 12.5 MG tablet TAKE 1 TABLET BY MOUTH TWICE DAILY WITH THE MORNING AND EVENING MEAL 60 tablet 1 10/30/2020 01/06/2021 gabapentin (NEURONTIN) 300 MG capsule Take 300 mg by mouth 3 times daily 01/29/2021 traMADol (ULTRAM) 50 MG tablet Take 1 (one) tablet by mouth every 6 hours as needed for Pain 12 tablet 11/21/2020 01/29/2021 documented as of this encounter Plan of Treatment Not on file documented as of this encounter Procedures Procedure Name Priority Date/Time Associated Diagnosis Comments XR TIBIA FIBULA RIGHT 2VW Routine 12/22/2020 9:46 AM CDT Closed fracture of proximal end of right fibula, unspecified fracture morphology, initial encounter documented in this encounter Results * XR TIBIA FIBULA RIGHT 2VW (12/22/2020 9:46 AM CDT) Anatomical Region Laterality Modality Lower Extremity Radiographic Maribel ging 12/22/2020 2:24 PM CDT Impressions 12/22/2020 7:55 PM CDT IMPRESSION: Healing changes of fibular head fracture. Dictated by Flaquito Hernandez MD (radiology therapist). Dr. KODAK Resendiz have personally reviewed and interpreted this examination/study. This report was electronically signed by KODAK HIDALGO ??on 12/22/2020 7:55 PM . Narrative 12/22/2020 7:55 PM CDT EXAMINATION: XR TIBIA FIBULA RIGHT 2VW HISTORY: S82.831A: Closed fracture of proximal end of right fibula, unspecified fracture morphology, initial encounter COMPARISON: Tibia-fibula radiograph dated 11/20/2020 FINDINGS: Minimally displaced fracture of the fibular head is redemonstrated with increased sclerosis, less discernible fracture lines, and unchanged alignment. Procedure Note Kodak Hidalgo MD - 12/22/2020 EXAMINATION: XR TIBIA FIBULA RIGHT 2VW HISTORY: S82.831A: Closed fracture of proximal end of right fibula, unspecified fracture morphology, initial encounter COMPARISON: Tibia-fibula radiograph dated 11/20/2020 FINDINGS: Minimally displaced fracture of the fibular head is redemonstrated with increased sclerosis, less discernible fracture lines, and unchanged alignment. IMPRESSION: Healing changes of fibular head fracture. Dictated by Flaquito Hernandez MD (radiology therapist). Dr. KODAK Resendiz have personally reviewed and interpreted this examination/study. This report was electronically signed by KODAK HIDALGO on 17:55 PM . Tito Crowe MD DIAGNOSTIC IMAGING ORDERABLES documented in this encounter Visit Diagnoses Diagnosis Closed fracture of proximal end of right fibula, unspecified fracture morphology, initial encounter documented in this encounter Care Teams Glove Parts Inspector Relationship Specialty Start Date End Date Natasha Bates PA-C [address] [place] [phone] PCP - General 03/21/19 06/20/23 documented as of this encounter
--- OUTSIDE RECORDS SUMMARY | 2024-05-22 05:41 | XMS_ITS | Encounter Summary ---
Author Organization [facility] Health Address [address] [facility] [place] [address] Care Team Providers Care Employee Development Director Name Role Phone Natasha Bates PA-C Primary Care Provider + Reason for Visit * Reason Onset Date Comments Pain Knee 11/28/2020 Encounter Details Date Type Department Care Team (Late st Contact Info) Description 11/28/2020 Telephone [facility] - Orthopedics [facility] [facility], [place] [address] Rajni Babin PA-C [address] [place] [address] [place] [address] Pain Knee Social History Tobacco Use Types Packs/Day Years [...] encounter Miscellaneous Notes * Telephone Encounter - Rajni Babin PA-C - 11/28/2020 12:44 PM CDT Ortho Trauma Telephone Encounter Howie Delaney ( 63) H/o right proximal fibula fracture and possible MCL injury Discharge: 11/21/20 Next OV: 12/08/20 Returned patient voicemail. States he was kneeling on his LLE and pulled his R knee. He reports increased pain in the R medial knee. A/w swelling. Pt has not really been using the KI as he was instructed at discharge to limit KI to prevent knee stiffness. WBAT. Advised pt that he had a possible MCLinjury and that he may have strained or re-injured the area. Unable to take NSAIDs. Advised him to use ice for inflammation and swelling. Tylenol for pain. He can also use an MACO wrap or knee sleeve for compression and support. Pt agreeable to plan. Comfortable keeping his appointment for 12/08. Allquestions addressed. Ofelia Babin PA-C 11/28/20 12:44PM documented in this encounter Plan of Treatment Not on file documented as of this encounter Visit Diagnoses Not on filedocumented in this encounter Care Teams Employee Development Director Relationship Specialty Start Date End Date Natasha Bates PA-C [address] [place] [phone] PCP - General 03/21/19 06/20/23 documented as of this encounter
--- OUTSIDE RECORDS SUMMARY | 2024-05-22 05:41 | XMS_ITS | Encounter Summary ---
Author Organization [facility] Address [address] [place] [address] Care Team Providers Care Floorwalker Name Role Phone Natasha Bates PA-C Primary Care Provider + Reason for Referral * Radiology Services (Routine) - Closed Specialty Diagnoses / Procedures Referred By Malena sagastume Referred To Contact MRI Diagnoses Lumbar radiculopathy Procedures MRI LUMBAR SPINE WO CONTRAST Se Vargas MD [address] [facility] 2L [place] [address] [facility] Mri [address] [place] [address] Referral ID Status Reason Start Date Expiration Date Visits Re quested Visits Authorized [id number] Closed 02/20/2021 04/20/2021 1 1 Reason for Visit * Reason Comments Establish Care cervical spinal sten osis Encounter Details Date Type Department Care Team (Latest Contact Info) Description 01/29/2021 12:00 PM CDT Office Visit [facility] Neurosurgery [address] [facility], [address] [place] [address] Se Vargas MD [address] [facility] [address]L [place] [address] Lumbar radiculopathy (Primary Dx) Social History Tobacco [...] Sign Reading Time Taken Comments Blood Pressure 138/70 01/29/2021 12:07 PM CDT Pulse 67 01/29/2021 12:07 PM CDT Temperature - - Respiratory Rate - - Oxygen Saturation 93% 01/29/2021 12:07 PM CDT Inhaled Oxygen Concentration - - Weight 140.2 kg (309 lb) 01/29/2021 12:07 PM CDT Height 182.9 cm (6') 01/29/2021 12:07 PM CDT Body Mass Index 41.91 01/29/2021 12:07 PM CDT documented in this encounter Functional [...] encounter Patient Instructions * Patient Instructions* Summer Kent - 01/29/2021 12:30 PM CDT To schedule an appointment please call [phone]. To reach the [place]'s office please call [phone]. For any nursing or surgery questions please call AVA Laughlin at [phone]. documented in this encounter Progress Notes * Se Vargas MD - 01/30/2021 9:11 AM CDT NAME: HOWIE DELANEY : 1965 AGE: 55 PROVIDER: Se Vargas MD SEX: M DATE: 01/29/2021 I had the pleasure of seeing Mr. Delaney in the neurosurgery office today. HISTORY OF PRESENT ILLNESS: Mr. Delaney is a very pleasant 55-year-old gentleman with a very complex history from the pain management standpoint. The patient has chronic axial neck pain as well as chronic axial low back pain. He has been diagnosed with left ulnar neuropathy and a surgeon in [place] proposed a left ulnar nerve release. He comes for evaluation of the MRI of the cervical spine. Past Medical History: Diagnosis Date ??? CKD [...] Sexual Activity ??? Alcohol use: Yes Comment: maybe 4 drinks a month ??? Drug use: Never ??? Sexual activity: Never Other Topics Concern ??? Not on file Social History Narrative Merged History Encounter Social Determinants of Health Financial Resource Strain: ??? Difficulty of Paying Living Expenses: Not on file Food Insecurity: ??? Worried About Running Out of Food in the Last Year: Not on file ??? Ran Out of Food in the Last Year: Not on file Transportation Needs: ??? Lack of Transportation (Medical): Not on file ??? Lack of Transportation (Non-Medical): Not on file Physical Activity: ??? Days of Exercise per Week: Not on file ??? Minutes of Exercise per Session: Not on file Stress: ??? Feeling of Stress : Not on file Social Connections: ??? Frequency of Communication with Friends and Family: Not on file ??? Frequency of Social Gatherings with Friends and Family: Not on file ??? Attends [employer] Services: Not on file ??? Active Member of Clubs or Organizations: Not on file ??? Attends Club or Organization Meetings: Not on file ??? Marital Status: Not on file Intimate Partner Violence: ??? Fear of Current or Ex-Partner: Not on file ??? Emotionally Abused: Not on file ??? Physically Abused: Not on file ??? Sexually Abused: Not on file Housing Stability: ??? Unable to Pay for Housing in the Last Year: Not on file ??? Number of Places Lived in the Last Year: Not on file ??? Unstable Housing in the Last Year: Not on file Current Medications acetaminophen (TYLENOL) 325 MG tablet Take 650 mg by mouth atorvastatin (LIPITOR) 40 MG tablet every 24 hours CALCIUM PO carvedilol (COREG) 12.5 MG tablet TAKE 1 TABLET BY MOUTH TWICE DAILY WITH THE MORNING AND EVENING MEAL Cyanocobalamin (B-12 PO) furosemide (LASIX) 40 MG tablet Take 20 mg by mouth once daily gabapentin (NEURONTIN) 100 MG capsule Take 200 mg by mouth once daily Multiple Vitamin (DAILY-RAKESH) TABS Take 1 tablet by mouth once daily PHYSICAL EXAMINATION: The patient is in mild discomfort, but in no acute distress. He has several myofascial tender points on palpation of the paraspinal muscles in the posterior cervical region as well as posterior lumbar region. Straight leg raise test is negative bilaterally. Reflexes are physiologic and symmetric at 1+ in the lower limbs. Sensation is normal in the lower limbs. Negative Tinelon palpation of median nerves at the carpal tunnel, as well as palpation of the ulnar nerves at thecubital tunnel bilaterally. He has full strength in the upper limbs for all tested muscles. Negative Spurling's, negative Lhermitte. REVIEW OF DIAGNOSTIC STUDIES: Unfortunately, there is no available image for review regarding his lumbar spine. According to him, he had an x-ray with a chiropractor, which revealed some degree of spondylosis. MRI of the cervical spine performed in August 2020 revealed multilevel degenerative disk disease with reversal of the physiological cervical lordosis, and moderate degree of bilateral foraminal stenosis at C4-C5, C5-C6 and C6-C7. According to him, the EMG did not show any signs of cervicalradiculopathy. Unfortunately, we do not have those results for review today. MEDICAL DECISION MAKING: I told the patient that he presents with a challenging condition with chronic axial low back pain. I proposed to obtain an MRI of the lumbar spine for investigation. I recommended him to continue conservative treatment with physical therapy. I told him that at this point I am not convinced that an anterior cervical diskectomy and fusion would lead to significant improvement of his symptoms, especially as the patient has no signs of cervical radiculopathy or myelopathy and the MRI shows multilevel spondylosis. Thank you for allowing us to participate in the care of your patient. DILAN/[email or web address].[email or web address] Doc ID: [id number] Voice Job ID: [id number] cc: documented in this encounter Plan of Treatment Not on file documented as of this encounter Results * MRI LUMBAR SPINE WO CONTRAST (03/12/2021 12:36 PM CDT) Anatomical Region Laterality Modality Spine Magnetic Resonan ce 03/12/2021 2:33 PM CDT Impressions 03/13/2021 1:59 PM CDT IMPRESSION: 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 There is severe left foraminal stenosis at L4-L5. Dictated by Freya Chowdhury MD (vice president process). This report was approved ??by Freya Chowdhury [...] facet osteoarthritis. There is mild right and [id number] left neural foraminal stenosis. L4-L5: There is [...] facet osteoarthritis. There is mild right and essc-kb-ipjnsehx left neural foraminal stenosis. L4-L5: There is [...] Dictated by Freya Chowdhury MD (vice president process). This report was approved by Freya Chowdhury on 03/13/2021 1:58 PM . I, Dr. FABRIZIO GUAN have personally reviewed and interpreted this examination/study. This report was electronically signed by FABRIZIO GUAN on 03/13/2021 1:59 PM . Se Vargas MD MR ORDERABLES documented in this encounter Visit Diagnoses Diagnosis Lumbar radiculopathy- Primary Thoracic or lumbosacral neuritis or radiculitis, unspecified Lumbar radiculopathy Thoracic or lumbosacral neuritis or radiculitis, unspecified documented in this encounter Care Teams Floorwalker Relationship Specialty Start Date End Date Natasha Bates PA-C [address] [place] [phone] PCP - General 03/21/19 06/20/23 documented as of this encounter
--- OUTSIDE RECORDS SUMMARY | 2024-05-22 05:41 | XMS_ITS | Encounter Summary ---
Author Organization [facility] Address [address] [place] [address] Care Team Providers Care Endocrinology Specialist Name Role Phone Puneet Hughes MD Primary Care Provider [phone] Reason for Referral * Cardiac (Routine) - Closed Specialty Diagnoses / Procedures Referred By Malena sagastume Referred To Contact Cardiology Diagnoses Chest pain, unspecified type Procedures ECHO TRANSTHORACIC NE TTE W/DOPPLER, COMPLETE NE TTE W/O DOPPLER, COMPLETE Kaylynn Pillai MD [address] [address] Referral ID Status Reason Start Date Expiration Date Visits Re quested Visits Authorized [id number] Closed 06/22/2023 08/20/2023 1 1 MITE PACKING MACHINE OPERATOR Reason for Visit * Auth/Cert (Routine) Specialty Diagnoses / Procedures Referred By Malena sagastume Referred To Contact Diagnoses Chest pain, unspecified type Chest pain, unspecified type [R07.9] Procedures CCL LEFT HEART CATH Referral ID Status Reason Start Date Expiration Date Visits Re quested Visits Authorized [id number] 1 1 Encounter Details Date Type Department Care Team (Late st Contact Info) Description 06/23/2023 9:23 AM DYNAMITE PACKING MACHINE OPERATOR - 06/23/2023 10:44 AM DYNAMITE PACKING MACHINE OPERATOR Hospital Encounter [facility] ECHO [address] [place] [phone] Kaylynn Pillai MD [address] [facility] [address] [place] [id number] Discharge Disposition: Home or Self Care Social [...] - Inhaled Oxygen Concentration - - Weight 122.9 kg (271 lb) 06/23/2023 9:24 AM DYNAMITE PACKING MACHINE OPERATOR Height 185.4 cm (6' 1 ) 06/23/2023 9:24 AM DYNAMITE PACKING MACHINE OPERATOR Body Mass Index 35.75 06/23/2023 9:24 AM DYNAMITE PACKING MACHINE OPERATOR documented in this encounter Functional Status [...] No 06/23/2023 documented as of this encounter Medications at [...] tablet 06/21/2023 documented as of this encounter Plan of [...] Procedure Name Priority Date/Time Associated Diagnosis Comments ECHO COMPLETE Routine 06/23/2023 10:27 AM DYNAMITE PACKING MACHINE OPERATOR Chest pain, unspecified type documented in this encounter Results * ECHO COMPLETE (06/23/2023 10:27 AM DYNAMITE PACKING MACHINE OPERATOR) BSA 2.4664603 m2 [facility] CV FUJ I PACS LV [...] CV FUJ I PACS LV mass 2D 241.33271 [id number] 96 - 200 g [facility] CV FUJI [...] LA vol BP 93.84 mL [facility] CV FUJ I PACS TR pk bony 251.1 cm/s [facility] CV FUJ I PACS P vein A bony 24.0 [...] MV mn bony 0.48 m/s [facility] CV [facility] I PACS MV pk bony 107.525 cm/s [facility] CV FUJ I PACS MV area cont eq 2.59 cm2 [facility] CV FUJI PACS MV VTI 40.782 cm [facility] CV FUJ I PACS MV decel slope 321.566 cm/s2 S[facility] C V FUJI PACS TR VTI 92.7 cm S[facility] CV FUJ I PACS TR pk grad 25 mmHg S[facility] CV FU JI PACS NE pk bony 94.839 cm/s [facility] CV FUJ I PACS NE pk grad 3 mmHg SSM CV FU [...] Index 43 ml/m2 SSM CV FUJI PACS [id number] 8.639 cm SSM CV FUJ I PACS [id number] 8.318 cm SSM CV FUJ I PACS [...] Laterality Modality Ultrasound Narrative 06/23/2023 11:40 AM DYNAMITE PACKING MACHINE OPERATOR ?Concentric LV hypertrophy. Normal systolic function. EF [...] body habitus. Kaylynn Pillai MD [facility] documented in this encounter Visit Diagnoses Diagnosis Chest pain, unspecified type documented in this encounter Care Teams Endocrinology Specialist Relationship Specialty Start Date End Date Puneet Hughes MD PCP - General Internal Medicine 06/21/23 documented as of this encounter
--- OUTSIDE RECORDS SUMMARY | 2024-05-22 05:41 | XMS_ITS | Encounter Summary ---
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
--- OUTSIDE RECORDS SUMMARY | 2024-05-22 05:41 | XMS_ITS | Encounter Summary ---
Author Organization [facility] Address [address] [facility] [place] [address] Care Team Providers Care Cdl Team Truck Driver Name Role Phone Natasha Bates PA-C Primary Care Provider + Encounter Details Date Type Department Care Team (Late st Contact Info) Description 12/16/2021 Orders Only [facility] [address] [facility] [address] [place] [address] [address], POWER GENERATING PLANT OPERATOR-PUMPER BREWERY [address] [facility] [address] [place] [address] Social History Tobacco Use Types Packs/Day Years [...] on filedocumented in this encounter Care Teams Cdl Team Truck Driver Relationship Specialty Start Date End Date Natasha Bates PA-C [address] [place] [phone] PCP - General 03/21/19 06/20/23 documented as of this encounter
--- OUTSIDE RECORDS SUMMARY | 2024-05-22 05:41 | XMS_ITS | Encounter Summary ---
Author Organization [facility] Health Address [address] [place] [address] Care Team Providers Care Cushion Spring Assembler Name Role Phone Natasha Bates PA-C Primary Care Provider + Reason for Visit * Reason Comments Aphasia Pt FESTUS (Letitia larry) presents to the ED with c/o stroke-like symptoms including expressive aphasia and slurred speech. Pt LKW 0430. Per EMS, daughter found patient leaning against his car and was incoherently babbling. Per EMS, pt fell twice d/t symptoms. C-collar applied to patient on scene. Per EMS, pt was not responding to verbal/painful stimuli en route but became more alert upon ED arrival. Pt arrives with c-collar in place. Pt AOx4. Encounter Details Date Type Department Care Team (Late st Contact Info) Description 11/20/2020 5:44 AM CDT - 11/21/2020 5:40 PM CDT Hospital Encounter [facility] ACUTE [address] [place] [id number] Sy Cordero MD [address] [facility] DIV [place] [address] Dann Mendoza MD [address] [place] [address] Camilo Berrios MD [address] [place] [address] Internal Medicine Discharge Disposition: Home or Self Care Social History Tobacco Use Types Packs/Day Years Used Date Smoking Tobacco: Never Smokeless Tobacco: Never Tobacco Cessation:Counseling Given: No Alcohol Use Standard Drinks/Week Comments Yes 0 (1 standard drink = 0.6 oz pur e alcohol) maybe 4 drinks a month Sex and Gender Information Value Date Recorded Sex Assigned at Not on file Gender Identity Not on file Sexual Orientation Not on file documented as of this encounter Last Filed Vital Signs Vital Sign Reading Time Taken Comments Blood Pressure 106/55 11/21/2020 3:58 PM CDT Pulse 60 11/21/2020 3:58 PM CDT Temperature 36.7 ??C (98.1 ??F) 11/21/2020 3:58 PM CD T Respiratory Rate 16 11/21/2020 3:58 PM CDT Oxygen Saturation 100% 11/21/2020 11:50 AM CDT Inhaled Oxygen Concentration 30% 11/21/2020 4 :22 AM CDT Weight 143.3 kg (316 lb) 11/20/2020 11:13 PM CDT Height 185.4 cm (6' 1 ) 11/20/2020 11:13 PM CDT Body Mass Index 41.69 11/20/2020 11:13 PM CDT documented in this [...] No 11/21/2020 documented as of this encounter Discharge Summaries * Calos Marques, KNOCKOUT MACHINE OPERATOR-BLIND INSTALLER - 11/21/2020 5:40 PM CDT Hospital Discharge Summary Patient ID: Howie Delaney [id number] 55 year old 1965 Admit date: 11/20/2020 Discharge date: 11/21/2020 Admitting Physician: Dann Mendoza MD Discharge Physician: Camilo Berrios Present on admission: Discharge Diagnoses: Admission Condition: poor Discharged Condition: good Indication for Admission: Altered mental status Hospital Course: Howie Delaney is a 55 year old male with history of MIRELLA with nightly CPAP, OSH, CHRF, HTN, HLD, gout, peripheral neuropathy, CKD stage 3, HFpEF with EF75% (05/2020) who presented to [facility] this morning after a fall at home. Per the pt, he normally sleeping with a CPAP with 4L nightly but last night fellasleep while reading a book without the CPAP. Pt expressed difficulty remembering exact details of the event, but at ~0400 he awoke and walked to the restroom to urinate. He believes that he may havefell in the bathroom but unsure. He then walked to the kitchen were he fell on the floor and started to experience what seems to be expressive aphasia. His daughter was alerted to the noise and called EMS. Pt denied recent dizziness, lightheadedness, falls, palpations, chest pain, ADIS, N/V/D, F/C. Pt endorsed constipation, +LUZ, and increased pedal edema. Pt endorsed recently increasing his use of Lasix to 40mg BID d/t BLE swelling. Upon arrival to [facility], pt a afebrile with stable VS. Labs notable for partially compensated respiratory acidosis with hypoxia, trop negative, BNP 193 (chronically elevated), Cr 1.66 (baseline), WBC 11.0, flu and covid negative. Overnight the pt remained stable with VSS. Echocardiogram with EF 75%, normal LV function, no significant valvular dysfunction, mild pulmonary hypertension. Without clearly identifiable neurological or metabolic causes of the transient alert mental status it is possible that the episode may have been related to AHHRF 2/2 the pt not wearing his CPAP the night of the event. VBG showed partially compensated respiratory acidosis with hypoxia that resolved with supplemental oxygen. Stroke service believed that no stroke occurred. Consults: Neurology Pending Labs and Studies: None Discharge Communication: Patient's hospital course was conveyed to Natasha ROGERS. Significant Diagnostic Studies: CBC: Recent Labs Lab Units 11/21/20 0144 11/20/20 0600 WBC 10??3/uL 10.4 11.0* RBC 10??6/uL 4.27* 4.28* HGB g/dL 13.1 12.9 HCT % 39.3 39.9 BMP: Recent Labs Lab Units 11/21/20 0144 11/20/20 0600 NA mmol/L 141 141 CL mmol/L 103 101 CO2 mmol/L 31* 31* BUN mg/dL 26 29* CREATININE mg/dL 1.32* 1.66* CALCIUM mg/dL 8.5 8.6 Magnesium: No results for input(s): MG in the last 168 hours. Phosphorus: No results for input(s): PHOS in the last 168 hours. Coagulation: Recent Labs Lab Units 11/20/20 0600 11/20/20 0547 PT Seconds 13.9 -- INR 1.1 1.1 Endocrine: Recent Labs Lab Units 11/21/20 0144 TSH uIU/mL 1.443 LFTs: Recent Labs Lab Units 11/20/20 0600 AST U/L 20 ALT U/L 16 TBILI mg/dL 0.5 ALB g/dL 2.7* XR TIBIA FIBULA RIGHT 2VW Result Date: 11/20/2020 IMPRESSION: Minimally displaced fracture of the fibular head. Report drafted by Shamar Stapleton DO, MPH(resident) Dr. EUGENIO Resendiz M.D. have personally reviewed and interpreted this examination/study. This report was electronically signed by EUGENIO BENÍTEZ M.D. on 11/20/2020 10:01 AM . XR ANKLE RIGHT 3VW OR MORE Result Date: 11/20/2020 IMPRESSION: No acute osseous injury. Report drafted by Kiel Vu M.D. (resident) IDr. HARRISON have personally reviewed and interpreted this examination/study. This report was electronically signed by HARRISON SANDHU on 11/20/2020 2:[address] CERVICAL SPINE WO CONTRAST Result Date: 11/20/2020 IMPRESSION: 1.No acute osseous abnormality. 2.Degenerative changes without critical spinal canal stenosis. 3.Diffuse enlargement and heterogeneity of the thyroid gland. Further evaluation with thyroid sonogram is recommended. Dictated by Mariana Orr M.D. (cath lab radiology technician) Dr. DIVINA Resendiz have personally reviewed and interpreted this examination/study. This report was electronically signed by DIVINA DUDLEY on 11/20/2020 11:21 AM . MRI BRAIN WO CONTRAST Result Date: 11/20/2020 IMPRESSION: 1. No acute intracranial hemorrhage or evidence of acute ischemic infarct. This report was approved by Lj Womack on 11/20/2020 1:[address] FABRIZIO Resendiz have personally reviewedand interpreted this examination/study. This report was electronically signed by FABRIZIO GUAN on 11/20/2020 1:42 PM . XR CHEST 1VW PORTABLE Result Date: 11/20/2020 FINDINGS/IMPRESSION: The lungs are hypoinflated with associated bronchovascular crowding. Opacity seen in the left lower lung may represent atelectasis versus airspace disease; small left pleural effusion may be associated. No right pleural effusion. No pneumothorax is seen. The cardiac silhouette is borderline enlarged. Evaluation of the mediastinum is limited by mild patient rotation to the left. No acute fractures are seen. Report drafted by Shamar Stapleton DO, MPH (cath lab radiology technician) Dr. EUGENIO Resendiz M.D. have personally reviewed and interpreted this examination/study. This report was electronically signed by EUGENIO BENÍTEZ M.D. on 11/20/2020 10:34 AM . XR KNEE RIGHT 3VW Result Date: 11/20/2020 IMPRESSION: Fracture of the fibular head. This report was electronically signed by EUGENIO BENÍTEZ M.D. on 11/20/2020 8:46 AM . XR PELVIS W RIGHT HIP 2VW Result Date: 11/20/2020 IMPRESSION: No acute osseous abnormality. Report drafted by Shamar Stapleton DO, MPH (resident) Dr. EUGENIO Resendiz M.D. have personally reviewed and interpreted this examination/study. This report was electronically signed by EUGENIO BENÍTEZ M.D. on 11/20/2020 10:[address] ANGIO BRAIN NECK STROKE Addendum Date: 11/20/2020 ORIGINAL REPORT EXAMINATION: CT angiography of the [...] without wall calcification or hemodynamically significant stenosis. Thereis occlusion of a left MCA M3 branch in the distal sylvian fissure (series 8 image). The anterior and middle cerebral arteries are otherwise within normal limits. There is a normal anterior communicating artery. The vertebral arteries are normal in intracranial and extracranial course. The basilar artery is normal. The posterior cerebral arteries are within normal limits. The right posterior commu nicating artery is visualized There is fusion of [...] signed by DIVINA DUDLEY on 11/20/2020 8:00 AM . ADDENDUM #1 Upon further review, the left MCA branch vessel that was originally thought to be occluded is p robably a vein. This report was electronically signed by DIVINA DUDLEY on 11/20/2020 2:07 PM . Result Date: 11/20/2020 IMPRESSION: 1.Occlusion of left MCA M3 branch in the distal sylvian fissure. Otherwise, no abnormality of the intracranial arteries. 2.No stenosis of the cervical segment of carotid and vertebral arteries. The findings were discussed with Dr. Turner at 7:[address] Dudley. This report was electronically signed by DIVINA DUDLEY on 11/20/2020 8:[address] BRAIN - Stroke Result Date: 11/20/2020 IMPRESSION: No acute intracranial abnormality. The preliminary findings were discussed by Dr. Egan with Dr. Burris at 5:57 AM on 11/20/2020. This report was electronically signed by DIVINA DUDLEY on 11/20/2020 7:45 AM . XR STRESS ANY JOINT Result Date: 11/20/2020 FINDINGS/IMPRESSION: A single internal oblique stress view of the right ankle shows no widening of the medial clear space. Deformity of the distal tibia is redemonstrated which may indicate a nondisplaced fracture. I, Dr. HARRISON SANDHU have personally reviewed and interpreted this examination/study. This report was electronically signed by HARRISON SANDHU on 11/20/2020 2:27 PM . Discharge Exam: Blood pressure 106/55, pulse 60, temperature 98.1 ??F (36.7 ??C), resp. rate 16, height 1.854 m (6'1 ), weight (!) 143.3 kg (316 lb), SpO2 100 %. GEN: Well and in NAD CHEST: Clear to auscultation bilaterally HEART: Regular rate and rhythm, Nl S1 and S2 No gallops. GI: Abdomen soft and non tender, non-distended, +BS EXT: KI to RLL. No edema. PSYCH: Alert and oriented to person place time and situation. Good mood, appropriate affect. Disposition: Home Patient Instructions: Medication List START taking these medications traMADol 50 MG tablet Commonly known as: Ultram Take 1 (one) tablet by mouth every 6 hours as needed for Pain CHANGE how you take these medications allopurinol 100 MG tablet Commonly known as: Zyloprim What changed: Another medication with the same name was removed. Continue taking this medication, and follow the directions you see here. atorvastatin 40 MG tablet Commonly known as: Lipitor What changed: Another medication with the same name was removed. Continue taking this medication, and follow the directions you see here. carvedilol 12.5 MG tablet Commonly known as: Coreg TAKE 1 TABLET BY MOUTH TWICE DAILY WITH THE MORNING AND EVENING MEAL What changed: Another medication with the same name was removed. Continue taking this medication, and follow the directions you see here. gabapentin 300 MG capsule Commonly known as: Neurontin What changed: Another medication with the same name was removed. Continue taking this medication, and follow the directions you see here. CONTINUE taking these medications albuterol HFA 108 (90 Base) MCG/ACT inhaler Commonly known as: ProAir HFA Inhale 2 puffs by mouth every 4 hours as needed for Shortness of Breath, Wheezing or Cough B-12 PO CALCIUM PO Daily-Maynor Tabs furosemide 40 MG tablet Commonly known as: Lasix STOP taking these medications acetaminophen 325 MG tablet Commonly known as: Tylenol Acetaminophen-Codeine 300-30 MG zolpidem 5 MG tablet Commonly known as: Ambien Where to Get Your Medications These medications were sent to [id number] - [address] [facility] [address] [address], [facility] [id number] ?? traMADol 50 MG tablet Follow-up Information Natasha Bates PA-C . Specialty: Physician Keyboarding Clerk Why: Follow within two weeks. Contact information: [address] [facility] [address] Discharge Instructions Orthopaedic Surgery follow up appointment for your right leg injury with Dr. Crowe is scheduled on 12/08/2020 at 12:15pm [facility] Medicine, Level I-Orthopaedic Surgery [address] [place] [id number] -You are weight bearing as tolerated to your right leg -Wear knee immobilizer brace to your right leg as instructed. IMPORTANT to remove knee immobilizer brace every 12 hours to check skin while laying down with your leg straight. Do not bend your knee until instructed by your physician. Keep knee immobilizer brace clean and dry. Remove it daily for hyg iene/washing. -No Driving -You may take over the counter or non prescription laxatives as needed for constipation followingyour injury/surgery. The hospital uses generic Miralax and Magnesium Citrate. -Do not smoke cigarettes, vape, chew tobacco or use any nicotine products. Nicotine in any form will delay and can prevent healing. -Please contact the clinic with your current insurance information. If you do not have health insurance coverage you will be expected to pay for your visit. -For after hours orthopaedic emergency calls dial [phone] and page the orthopaedic surgery resident health education aide Howie Delaney, HOSPITAL COURSE: You were admitted for confusion and difficulty speaking after a fall. You were initially seen by our Stroke team that performed a CT without contrast, a CT angiogram, and a MRI. From those images they determined that you did not have a stroke. A echocardiogram show normal function. EKG did not reveal dysrhythmias. Your electrolytes were normal. On one of the CT scans it was noted that your thyroid was enlarged, your TSH level was normal, it is recommended that you speak to you PCP about having a thyroid sonogram performed. You were found to have a right fibula fracture. Our Ortho team and Physical/Occupational therapist evaluated you and felt you were safe to go home with a wheeled walker and follow up as above. It was our pleasure to assist in your care and wish you a speedy recovery. If you need to call [facility] for any reason, you may reach us at [phone] and dial 0 for the gang bore operator. PROBLEM LIST: Patient Active Problem List: Acute pain of right knee Need for influenza vaccination Class 3 severe obesity due to excess calories without serious comorbidity with body mass index (BMI) of 45.0 to 49.9 in adult Essential hypertension LVH (left ventricular hypertrophy) due to hypertensive disease, with heart failure Mixed hyperlipidemia Pedal edema CRD (chronic renal disease), stage II Chronic right heart failure Snoring MIRELLA (obstructive sleep apnea) Chest pain Near syncope Pulmonary hypertension Orthostasis Acute on chronic diastolic heart failure Congestive heart failure Morbid obesity Heart palpitations DISCHARGE MEDICATIONS: You were discharged on the following medications: Howie Delaney Home Medication Instructions BROOKE:[id number] Printed on:11/21/20 1256 Medication Information albuterol HFA (PROAIR HFA) 108 (90 Base) MCG/ACT inhaler Inhale 2 puffs by mouth every 4 hours as needed for Shortness of Breath, Wheezing or Cough allopurinol (ZYLOPRIM) 100 MG tablet Take 100 mg by mouth 2 times daily atorvastatin (LIPITOR) 40 MG tablet every 24 hours CALCIUM PO carvedilol (COREG) 12.5 MG tablet TAKE 1 TABLET BY MOUTH TWICE DAILY WITH THE MORNING AND EVENING MEAL Cyanocobalamin (B-12 PO) furosemide (LASIX) 40 MG tablet Take 40 mg by mouth 2 times daily gabapentin (NEURONTIN) 300 MG capsule Take 300 mg by mouth 3 times daily Multiple Vitamin (DAILY-MAYNOR) TABS Take 1 tablet by mouth once daily traMADol (ULTRAM) 50 MG tablet Take 1 (one) tablet by mouth every 6 hours as needed for Pain Below were changes made to your home medications: Stop Ambien. If you have any questions about your medications, please be sure to ask the pharmacy when you pickle solution maker your prescription. You may also call your primary provider if you are uncertain if you should be taking your medication. INSTRUCTIONS: CONCERNING SYMPTOMS: When to call your healthcare provider: Call your healthcare provider immediately if you have any of the following: - Fever of 100.4??F (38??C) or higher - Shaking chills - Intractable nausea and vomiting - Severe headache - Confusion/altered mental status - Seizures (convulsions) - Weakness in arms/legs - Dizziness If you are unable to reach your primary provider, please go to the nearest emergency room or call EMS (911). FOLLOW-UP: No follow-ups on file. It is essential that you keep all of your follow-up appointments and go to your doctors appointments as scheduled. If a follow-up with your primary care provider has not been scheduled, you need to schedule an appointment tofollow-up on your hospitalization. If there is a conflict, please call the clinic ahead of time and reschedule the appointment. Thanks! Internal Medicine Department [address] [address] Signed: NATALIE Jackson 11/21/2020 Time spent on discharge: 45 minutes. Time was spent on preparation of discharge records, prescriptions, counseling patient, working withsocial work and nursing. documented in this encounter Discharge Instructions * Discharge Instructions* Calos Marques APRN-CNP - 11/21/2020 4:33 PM CDT Orthopaedic Surgery follow up appointment for your right leg injury with Dr. Crowe is scheduled on 12/08/2020 at 12:15pm [facility] Medicine, Level I-Orthopaedic Surgery [address] [place] [id number] -You are weight bearing as tolerated to your right leg -Wear knee immobilizer brace to your right leg as instructed. IMPORTANT to remove knee immobilizer brace every 12 hours to check skin while laying down with your leg straight. Do not bend your knee until instructed by your physician. Keep knee immobilizer brace clean and dry. Remove it daily for hyg iene/washing. -No Driving -You may take over the counter or non prescription laxatives as needed for constipation followingyour injury/surgery. The hospital uses generic Miralax and Magnesium Citrate. -Do not smoke cigarettes, vape, chew tobacco or use any nicotine products. Nicotine in any form will delay and can prevent healing. -Please contact the clinic with your current insurance information. If you do not have health insurance coverage you will be expected to pay for your visit. -For after hours orthopaedic emergency calls dial [phone] and page the orthopaedic surgery resident health education aide Howie Delaney [facility] H[facility] COURSE: You were admitted for confusion and difficulty speaking after a fall. You were initially seen by our Stroke team that performed a CT without contrast, a CT angiogram, and a MRI. From those images they determined that you did not have a stroke. A echocardiogram show normal function. EKG did not reveal dysrhythmias. Your electrolytes were normal. On one of the CT scans it was noted that your thyroid was enlarged, your TSH level was normal, it is recommended that you speak to you PCP about having a thyroid sonogram performed. You were found to have a right fibula fracture. Our Ortho team and Physical/Occupational therapist evaluated you and felt you were safe to go home with a wheeled walker and follow up as above. It was our pleasure to assist in your care and wish you a speedy recovery. If you need to call [facility] for any reason, you may reach us at [phone] and dial 0 for the gang bore operator. PROBLEM LIST: Patient Active Problem List: Acute pain of right knee Need for influenza vaccination Class 3 severe obesity due to excess calories without serious comorbidity with body mass index (BMI) of 45.0 to 49.9 in adult Essential hypertension LVH (left ventricular hypertrophy) due to hypertensive disease, with heart failure Mixed hyperlipidemia Pedal edema CRD (chronic renal disease), stage II Chronic right heart failure Snoring MIRELLA (obstructive sleep apnea) Chest pain Near syncope Pulmonary hypertension Orthostasis Acute on chronic diastolic heart failure Congestive heart failure Morbid obesity Heart palpitations DISCHARGE MEDICATIONS: You were discharged on the following medications: Howie Delaney Home Medication Instructions BROOKE:[id number] Printed on:11/21/20 7151 Medication Information albuterol HFA (PROAIR HFA) 108 (90 Base) MCG/ACT inhaler Inhale 2 puffs by mouth every 4 hours as needed for Shortness of Breath, Wheezing or Cough allopurinol (ZYLOPRIM) 100 MG tablet Take 100 mg by mouth 2 times daily atorvastatin (LIPITOR) 40 MG tablet every 24 hours CALCIUM PO carvedilol (COREG) 12.5 MG tablet TAKE 1 TABLET BY MOUTH TWICE DAILY WITH THE MORNING AND EVENING MEAL Cyanocobalamin (B-12 PO) furosemide (LASIX) 40 MG tablet Take 40 mg by mouth 2 times daily gabapentin (NEURONTIN) 300 MG capsule Take 300 mg by mouth 3 times daily Multiple Vitamin (DAILY-MAYNOR) TABS Take 1 tablet by mouth once daily traMADol (ULTRAM) 50 MG tablet Take 1 (one) tablet by mouth every 6 hours as needed for Pain Below were changes made to your home medications: Stop Ambien. If you have any questions about your medications, please be sure to ask the pharmacy when you pickle solution maker your prescription. You may also call your primary provider if you are uncertain if you should be taking your medication. INSTRUCTIONS: CONCERNING SYMPTOMS: When to call your healthcare provider: Call your healthcare provider immediately if you have any of the following: - Fever of 100.4??F (38??C) or higher - Shaking chills - Intractable nausea and vomiting - Severe headache - Confusion/altered mental status - Seizures (convulsions) - Weakness in arms/legs - Dizziness If you are unable to reach your primary provider, please go to the nearest emergency room or call EMS (911). FOLLOW-UP: No follow-ups on file. It is essential that you keep all of your follow-up appointments and go to your doctors appointments as scheduled. If a follow-up with your primary care provider has not been scheduled, you need to schedule an appointment tofollow-up on your hospitalization. If there is a conflict, please call the clinic ahead of time and reschedule the appointment. Thanks! Internal Medicine Department [address] [id number] documented in this encounter Medications at Time of Discharge Medication Sig Dispensed Refills Start Date End Date acetaminophen (TYLENOL) 325 MG tablet Take 2 (two) tablets by mouth 11/07/2019 atorvastatin (LIPITOR) 40 MG tablet every 24 hours CALCIUM PO Cyanocobalamin (B-12 PO) furosemide (LASIX) 40 MG tablet Take 0.5 (one-half) tablet by mouth every other day as needed 05/13/2020 Multiple Vitamin (DAILY-MAYNOR) TABS Take 1 tablet by mouth once [...] 11/21/2020 01/29/2021 documented as of this encounter Progress Notes * Dc Kenyon RN - 11/21/2020 5:40 PM CDT Case Management Progress Note Anticipated level of care at discharge: Home Discharge Plan: Patient discharged home with no DME or further CM needs. Basic Needs Assessment (BNA) Score: Anticipated Discharge Date: Anticipated Discharge Date: 11/22/20 Transportation at Discharge: Family Transportation to MD:Drives self Equipment at Home: Equipment At Home: Home O2 Additional DME needed: Hunger Screening: Within the past 12 months the food we bought just didn't last and we didn't have money to get more.: Never true Within the past 12 months we worried whether our food would run out before we got money to buy more: Never true Medication affordability concerns: No Auth Number (if required) [place]: DME: Medications: Transportation: Name: Dc Kenyon RN Phone: [phone] * Dc Kenyon RN - 11/21/2020 2:34 PM CDT A Chart Review has been conducted by Case Management. Anticipated level of care at discharge: Home Discharge Plan: Discharge needs pending response to clinical treatment and therapies recommendations. Basic Needs Assessment (BNA) Score: 4 Anticipated Discharge Date: 11/22/20 PCP: Natasha Bates PA-C Per nursing assessments: A/O x 4. VSS Transportation at discharge: Family Transportation (who): Daughter or girlfriend Maintenance Mechanic Technician/Support: Maintenance Mechanic Technician/Support Person - Relationship:: Candis Delaney - Daughter Maintenance Mechanic Technician person: Maintenance Mechanic Technician/Support Person Contact #: [phone] Home/Functional Status: Functional and Cognitive Status Is person deaf or have serious hearing difficulty?: No Is person blind or have serious difficulty seeing?: No Does person have serious difficulty walking/climbing stairs?: Yes Does person have difficulty dressing/bathing?: No Does person have difficulty doing errands alone?: Yes Does person have difficulty concentrating/remembering/making decisions?: No Equipment with patient: None Assistive Devices: None ?. Will continue to follow. For any questions or needs please contact: Doubler Operator Name/Phone number: Dc Kenyon RN [phone] * Ingrid Ding PT - 11/21/2020 11:13 AM CDT [facility] Physical Therapy Initial Evaluation Note Patient: Howie Delaney [facility] Record Number: [id number] Date of : 1965 Age: [age] year old PPE: PT wore procedural mask and gloves. Patient wore procedural mask outside of room. Discharge Recommendation: Patient currently requires stand by assist with wheeled walker for ambulation and min/stand by assist to ascend/descend 1 step. Will continue PT to advance to independence. Patient will need wheeled walker for home. Message sent to CM and RN regarding the need for walker for home. Patient is s/p fx of R proximal fibula and will benefit from use of a wheeled walker to allow the patient to ambulate functional household distances (kitchen, bedroom, bathroom) in a reasonable time frame. Patient continues to be instructed in safety with the device and without the device would otherwise be unable to complete gait/mobility activites. In addition to the 1:1 evaluation of the patient, additional eval time was spent completing the chart review prior to the assessment, completing the multidisciplinary plan of care and education plan post evaluation and communicating results of the eval to other treatment team members. Patient currently using Wheeled Walker and needs equipment if d/c home. OT contacted regarding patient status and/or discharge plan. Physician Orders: Evaluation and Treat PRECAUTIONS: Activity Level as tolerated DIAGNOSIS: Patient Active Problem List: Acute pain of right knee Cerebrovascular accident (CVA) due to occlusion of cerebral artery Need for influenza vaccination Class 3 severe obesity due to excess calories without serious comorbidity with body mass index (BMI) of 45.0 to 49.9 in adult Essential hypertension LVH (left ventricular hypertrophy) due to hypertensive disease, with heart failure Mixed hyperlipidemia Pedal edema CRD (chronic renal disease), stage II Chronic right heart failure Snoring MIRELLA (obstructive sleep apnea) Chest pain Near syncope Pulmonary hypertension Orthostasis Acute on chronic diastolic heart failure Congestive heart failure Morbid obesity Heart palpitations Past Medical History: Diagnosis Date ??? CKD (chronic kidney disease) ??? HFrEF (heart failure with reduced ejection fraction) ??? HLD (hyperlipidemia) ??? HTN (hypertension) ??? MIRELLA (obstructive sleep apnea) 05/13/2019 SUBJECTIVE: Reports he would feel better about going home tomorrow. 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 However, pt c/o pain at ankle and calf, especially with manualmuscle testing. See objective below. Follow-up for pain: Yes, Informed nurse/physician about pain issue and results of LE testing noted below. OBJECTIVE: General Appearance: Large build male sitting EOB in NAD, wearing KI R LE (OK to remove, for comfort, per Ortho notes) Precautions: Skin, Incisions, Edema: Other: Vitals: (*Assess the 3 levels of oxygen saturations both for room air and 02 unless rest on room air is 88% or less). Rest BP: 119/80 HR: Sp02 Sp02 Room Air L O2 Ex/Gait/Activity Without 02 BP: HR: Sp02 Room Air Ex/Gait/Activity With 02 BP: HR: Sp02 L O2 Post Activity BP: HR: Sp02 Sp02 L O2 Room Air Observations: MENTAL STATUS: Alert and oriented times 3 DIRECTION FOLLOWING: Able to follow multi-step commands 100% ROM: Limited R knee ext and R ankle DF due to pain. STRENGTH: R quads at least 4-/5, but limited by pain SENSATION: equal light touch B LE TONE: NORMAL NEGLECT: none OTHER: (+) tenderness in calf, questionable warmth, pain with passive ankle DF. RN informed. FUNCTIONAL MOBILITY Not Tested Not Applicable Independent Stand by Assist Minimal Moderate Maximum Dependent Sit to/from Stand x Bed to/ chair x Observation: after cues BALANCE: Sitting Static: good Dynamic: good Standing Static: good minus Dynamic: fair plus Observation: standing with walker GAIT: Weight Bearing: WBAT R LE (KI optional, for comfort, per ortho note). Patient reported ambulation and transfers was easier without it. Distance: 40 feet Device: Wheeled Walker Assistance: Stand By Assist after cues for 3 point pattern Balance: fair plus Steps: ascended/descended step stool to simulate platform curb/step to enter home with minimal assist and cues for proper sequencing, use of wheeled walker. fair endurance Observation: antalgic with decreased WB R LE due to pain, especially wincing after up/down step stool ACTIVITY TOLERANCE: Patient's activity tolerance: good minus TREATMENT/INTERVENTIONS: evaluation, ROM (A/AAROM LAQ R LE), transfer training, gait training and curb training EDUCATION: While performing PT, Patient was instructed in:Functional mobility training/weight bearing status, Safety awareness/fall precaution and Discharge plan Patient demonstrated Good understanding of instructions given. Patient not applicable for education due to . INFORMED CONSENT TO TREATMENT: Plan of care including recommended therapy, goals and frequency, discussed with patient who understands and agrees to proceed. ASSESSMENT: Patient's functional performance presently limited due to: pain, fracture, decreased ROM, endurance, transfers and gait and Patient would benefit from additional Physical Therapy to achieve the following functional goals to enhance independence. Short Term Goals: Goal Formation With patient Patient will transfer sit to/from stand: Independent Patient will ambulate 100 feet with Independent and appropriate AD Patient will ascend/descend 1 step: Stand By Assist Senior Living Goal(s): Patient to be independent/baseline with functional mobility and self care and be able to safely discharge to prior level of care Equipment Issued: gait belt Plan: If patient is discharged from the facility, this note serves as a discharge summary if further physical therapy visits did not occur. Following therapy session, patient left in patient bedside chair and with chair alarm on, cues on white board for mobility. * Marisel Obrien, OT - 11/21/2020 10:48 AM CDT [facility] Occupational Therapy Initial Evaluation Note Co-eval with PT 2/2 unknown level of assist Patient: Howie Delaney [facility] Record Number: [id number] Date of : 1965 Age: [age] year old Face Mask: Therapist wearing procedural mask and eyewear throughout. Tech: No Discharge Recommendation: Patient should be able to return home when medically cleared by physicianteam. Therapy will continue to treat patient while in hospital. See current amount of assist neededbelow. In addition to the 1:1 evaluation of the patient, additional eval time was spent completing the chart review prior to the assessment, completing the multidisciplinary plan of care and education plan post evaluation and communicating results of the eval to other treatment team members. Plan: ADL training Adaptive equipment training Functional transfer training Endurance training Bed mobility Safety awareness Physician Orders: Evaluation and Treat Precautions: Weight Bearing Status: Lower Extremity (RLE) Weight Bearing: WBAT (in KI) DIAGNOSIS: Patient Active Problem List: Acute pain of right knee Cerebrovascular accident (CVA) due to occlusion of cerebral artery Need for influenza vaccination Class 3 severe obesity due to excess calories without serious comorbidity with body mass index (BMI) of 45.0 to 49.9 in adult Essential hypertension LVH (left ventricular hypertrophy) due to hypertensive disease, with heart failure Mixed hyperlipidemia Pedal edema CRD (chronic renal disease), stage II Chronic right heart failure Snoring MIRELLA (obstructive sleep apnea) Chest pain Near syncope Pulmonary hypertension Orthostasis Acute on chronic diastolic heart failure Congestive heart failure Morbid obesity Heart palpitations Past Medical History: Diagnosis Date ??? CKD (chronic kidney disease) ??? HFrEF (heart failure with reduced ejection fraction) ??? HLD (hyperlipidemia) ??? HTN (hypertension) ??? MIRELLA (obstructive sleep apnea) 05/13/2019 SUBJECTIVE: I'd feel better going home tomorrow. 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 Pain: Patient has 2/10 pain in RLE at rest, increasing with mobility. Follow-up for pain: Yes, Informed nurse/physician about pain issue OBJECTIVE: General Appearance: Pt is a 55 year old male resting comfortably, NAD. Precautions: IV's: Peripheral line Edema: None noted Vitals: Rest BP: 119/20 HR: 73 SpO2 SpO2 98% Room Air L 02 Ex/Gait/Activity Without 02 BP: HR: SpO2 Room Air Ex/Gait/Activity With 02 BP: HR: SpO2 L 02 Post Activity BP: HR: SpO2 SpO2 L 02 Room Air Observations: No c/o dizziness or SOB throughout. Cognitive: A&Ox4. Pt is able to make needs known, demonstrates fair safety awareness and insight, and follows multi-step commands 100% of the time. Perceptual: Pt wears glasses. Upper extremity range of motion: BUE AROM WFL Upper extremity strength: BUE WFL Tone: Normal Coordination: BUE serial opposition intact Sensation: BUE light touch intact Patient's activity tolerance: good minus FUNCTIONAL MOBILITY Not tested Independent Stand by Assist Minimal Moderate Maximum Dependent Rolling x Supine to/from sit x Sit to/from Standing x Bed to/from chair x Functional mobility of ambulation to sink/bathroom with: SBA assist using wheeled walker Balance: Static Sitting: good Dynamic Sitting: good Static Standing: good minus Dynamic Standing: fair plus Activities of Daily Living Feeding: hand to mouth intact Grooming/Bathing: Stand By Assist to complete hand, oral, and facial hygiene while standing at sink. Pt leaning B elbows onto sink for increased balance while allowing hands to be free for tasks. Pt educated to use of long handled sponge for LB bathing and pt reports understanding. Lower Extremity Dressing: Maximal assist to doff and don B socks while seated EOB. Pt educated to sock aid - pt attempted to don R sock using sock aid, but unable 2/2 pain in knee. Pt reports understanding of use. Pt educated to use of fleet service clerk for donning pants, but reports understanding, but politely declines to attempt 2/2 pain. Toileting/Transfers: not tested - pt declined need Splint Issued/Checked: none TREATMENT / EDUCATION / EVALUATION: Purpose of Occupational Therapy evaluation explained. While performing mobility, exercise and self care, Patient was instructed in: Functional mobility training/weight bearing status, Safety awareness/fall precaution, Discharge plan, Self care training and Use of adaptive equipment Presented to patient who demonstrates Good understanding of instructions given. INFORMED CONSENT TO TREATMENT: Plan of care including recommended therapy, goals and frequency, as well as potential risks and benefits of treatment/assessment explained to patient. Patient understands and agrees to proceed. ASSESSMENT: Functional performance limited due to: limited activities of daily living, pain, decreased mobilityand endurance, Patient continues to benefit from skilled Occupational Therapy to achieve the following functional goals. and Equipment Issued: fleet service clerk, sock aide, long handled sponge and gait belt Nurse and PT contacted regarding patient status and/or discharge plan. Short Term Goals: Patient will perform grooming Standing at sink and Independently Patient will perform lower extremity dressing Independently and With adaptive equipment Patient will tolerate treatment 25 minutes and with good endurance Education: good, safety education, weight bearing status and adaptive equipment Retail Shift Supervisor Goal: Patient to be independent/baseline with functional mobility and self care and be able to safely discharge to prior level of care If patient is discharged from the facility, this note serves as a discharge summary if further occupational therapy visits did not occur. Following therapy session, patient left in patient bedside chair, with chair alarm on, with call light within reach and with RN, Pricilla razo. * Elsa Grande, MARIANA - 11/21/2020 9:48 AM CDT [facility] Bedside Swallow Evaluation Patient: Howie Delaney [facility] Record Number: [id number] Date of : 1965 Age: [age] year old Patient Active Problem List: Acute pain of right knee Cerebrovascular accident (CVA) due to occlusion of cerebral artery Need for influenza vaccination Class 3 severe obesity due to excess calories without serious comorbidity with body mass index (BMI) of 45.0 to 49.9 in adult Essential hypertension LVH (left ventricular hypertrophy) due to hypertensive disease, with heart failure Mixed hyperlipidemia Pedal edema CRD (chronic renal disease), stage II Chronic right heart failure Snoring MIRELLA (obstructive sleep apnea) Chest pain Near syncope Pulmonary hypertension Orthostasis Acute on chronic diastolic heart failure Congestive heart failure Morbid obesity Heart palpitations Past Medical History: Diagnosis Date ??? CKD (chronic kidney disease) ??? HFrEF (heart failure with reduced ejection fraction) ??? HLD (hyperlipidemia) ??? HTN (hypertension) ??? MIRELLA (obstructive sleep apnea) 05/13/2019 In addition to the 1:1 evaluation of the patient, additional eval time was spent completing the chart review prior to the assessment, completing the multidisciplinary plan of care and education plan post evaluation and communicating results of the eval to other treatment team members. PPE: N95 mask, gloves, goggles Impressions: Pt referred to PALS NURSE for assessment of swallow. Patient is A&Ox4, currently receiving regular diet and thin liquids. Patient denies any difficulty with PO intake. Patient trialed with thin liquids, puree, and solid. Patient demonstrated 0 overt ssx aspiration. Patient endorsed slurred speech but states it has resolved. Recommend patient continue to receive regular diet and thin liquids, no further ST needs are anticipated Swallow Recommendations Liquids: Thin Diet: Regular Swallowing guidelines: Sit at 90 degrees Sit at 90 degrees 15 to 30 minutes after intake Recommended tests/consults: Other: N/A Discharge Recommendations: No ST needs anticipated at discharge Speech therapy is not recommended at this time. Goals noted above met. Current Diet: DIET CARDIAC SUBJECTIVE: Patient Goals: to go home Pain: Patient has 0/10 pain Follow-up for pain: No follow-up for pain indicated and patient agreed to proceed with treatment OBJECTIVE: Mental Status: Alert and responsive Positioning: Seated in a chair Breathing Status: Room Air Oral function Exam: Grossly intact Laryngeal Function Exam: Grossly intact Trial Swallows: Thin Liquids, Pureed and Solid Oral Phase: Grossly Intact Pharyngeal Phase: Grossly Intact Signs of Aspiration: No overt signs and symptoms of aspiration/penetration Modifications: None attempted ASSESSMENT: Swallow: WFL Behavior: Cooperative Cognitive-Communication: WFL with no further need for assessment. Speech/Language: WFL with no further need for assessment. TREATMENT: Evaluation EDUCATION: Patient instructed in recommendations and indicated understanding. INFORMED CONSENT TO TREATMENT: Plan of care including recommended therapy, goals, and frequency, as well as potential risks and benefits of treatment/assessment explained to patient. Patient understands and agrees to proceed. Short Term Goals Met Retail Shift Supervisor Goal (s): Met Elsa Bobby Speech-Language Pathologist * Dax Fenton MD - 11/21/2020 7:42 AM CDT [facility] Orth[facility] Surgery Progress Note Admit Date: 11/20/2020 5:44 AM November 21, 2020 Subjective Pt. Seen and examined on morning rounds. No acute ortho events overnight. Pain controlled. Data BP 104/58 Pulse 64 Temp 97.3 ??F (36.3 ??C) (Axillary) Resp 13 Ht 6' 1 (1.854 m) Wt 316 lb (143.3 kg) SpO2 96% BMI 41.69 kg/m2Temp (24hrs), Av.3 ??F (36.3 ??C), Min:97.3 ??F (36.3 ??C), Max:97.3??F (36.3 ??C) Labs Recent Labs Component Name 11/21/20 0144 11/20/20 0600 WBC 10.4 11.0* HGB 13.1 12.9 HCT 39.3 39.9 PLTCOUNT 189 219 Recent Labs Component Name 11/20/20 0600 11/20/20 0547 INR 1.1 1.1 Physical Exam General: sleeping comfortably, cooperative Extremities: bilateral Upper Extremity: Exam shows no tenderness. Motor was intact in Median/Radial/Ulnar/Anterior Interosseous/Posterior Interosseous nerve distributions as evidenced by making thumbs up/OK sign/crossing fingers, Flexing/extending all fingers, AB and ADducting all fingers. Sensation to light touch was intact distally. Fingers are warm and well perfused. right Lower Extremity: Exam shows tenderness to knee. Motor was intact EHL/FHL/GS/AT/quad/hamstring/Hip flexion/extension. Sensation to light touch was intact distally. Toes were warm and well perfused. 03016} left Lower Extremity: Exam shows no tenderness. Motor was intact EHL/FHL/GS/AT/quad/hamstring/Hip flexion/extension. Sensation to light touch was intact distally. Toes were warm and well perfused. Assessment/Plan Howie Delaney is a 55 year old male with right proximal fibula fracture and possible MCL injury s/p syncopal episode 1. right lower extremity: WBAT in KI 2. D/c KI before discharge or can use for comfort 3. PT/OT 4. Pain Control 5. DVT Prophylaxis: per primary 6. No ortho intervention 7. Follow up Dr. Flores in 2 weeks after d/c 8. Ortho will follow Please page ortho trauma through the ortho trauma pager via gang bore operator or Amion, rather than securechat Dax Fenton MD Orthopaedic Surgery Resident 11/21/20 7:42 AM * Marta Peraza RN - 11/20/2020 9:20 PM CDT Pt arrival to the floor. Oriented to unit and call light. No distress noted at this time. Dr. Wayne notified of pt arrival. Call light in reach, Bed locked and low position with bed alarm on. Will continue to monitor. documented in this encounter H&P Notes * Dann Mendoza MD - 11/20/2020 3:23 PM CDT I saw and examined the patient with the resident. I have verified all details of the residents' note and agree with the residents documentation with additions and modifications as listed in my separate note. Multidisciplinary rounds were held at 9am and the patient's care and recovery plan were reviewed and developed with the assembled team. The pt is a 55y M who was found down by his daughter with impaired speech. He recalls passing out x1 after a BM in the bathroom and possibly a second time in the kitchen. CTA negative for LVO and MRappears negative for acute infarction. Will need to investigate causes of syncope, including cardiogenic vs orthostatic vs dysautonomia. 0 Disposition: tbd Date Estimated to be Medically Ready for Discharge: 11/21 MEDICATIONS FOR CURRENT ENCOUNTER: ?? SCHEDULED MEDICATIONS: ?? *Hold/Avoid Medication, Other, 0800 and 1999 ?? *Hold/Avoid Medication, Other, DIRECTED ?? 0.9% NaCl injection 10 mL, Intracatheter, intra-Procedure multiple ?? 0.9% NaCl injection 3 mL, Intracatheter, q8h ?? 0.9% NaCl injection 3 mL, Intracatheter, q8h ?? iopamidol (Isovue 370) 76 % contrast, Intravenous, Contrast - Once ?? perflutren Lipid Microsphere (Definity) injection SUSP 0.5 mL, Intravenous, intra-Procedure multiple ?? [COMPLETED] 0.9% NaCl IV bolus, Intravenous, Once ?? [COMPLETED] fentaNYL (PF) (Sublimaze) injection 50 mcg, Intravenous, Now ?? [COMPLETED] fentaNYL (PF) (Sublimaze) injection 50 mcg, Intravenous, Once ?? CONTINUOUS MEDICATIONS: ?? 0.9% NaCl infusion, Intravenous, Continuous ?? PRN MEDICATIONS: ?? Or ?? 0.9% NaCl injection 1-10 mL, Intracatheter, PRN ?? 0.9% NaCl injection 3 mL, Intracatheter, PRN ?? hydrALAZINE (Apresoline) injection 10 mg, Intravenous, q20 min PRN ?? labetalol (Normodyne; Trandate) injection 10 mg, Intravenous, q15 min PRN ?? metoclopramide (Reglan) injection 5 mg, Intramuscular, q6h PRN ?? metoclopramide (Reglan) injection 5 mg, Intravenous, q6h PRN ?? ondansetron (disintegrating) (Zofran ODT) tablet 4 mg, Oral, q6h PRN ?? ondansetron (Zofran) injection 4 mg, Intravenous, q6h PRN ?? polyethylene glycol 3350 (Miralax) packet 17 g, Oral, QDAY PRN Patient Vitals for the past 24 hrs: Temp Pulse Resp BP 11/20/20 1130 -- 64 -- 115/74 11/20/20 0945 -- 68 13 123/70 11/20/20 0930 -- 67 14 119/71 11/20/20 0915 -- 65 22 118/74 11/20/20 0845 -- 70 15 111/67 11/20/20 0830 -- 71 15 113/67 11/20/20 0815 -- 70 15 117/66 11/20/20 0800 -- -- -- 124/72 11/20/20 0759 -- 75 20 -- 11/20/20 0745 -- 71 (!) 8 128/77 11/20/20 0730 -- 71 19 126/71 11/20/20 0715 -- -- -- 134/84 11/20/20 0714 -- 64 12 -- 11/20/20 0700 -- 62 15 120/78 11/20/20 0609 97.3 ??F (36.3 ??C) 76 18 105/95 Recent Labs Component Name 11/20/20 0600 NA 141 CL 101 CO2 31* BUN 29* CREATININE 1.66* CALCIUM 8.6 Recent Labs Component Name 11/20/20 0600 WBC 11.0* RBC 4.28* HGB 12.9 HCT 39.9 Recent Labs Component Name 11/20/20 1342 CHOL 95 TRIG 61 HDL 34* LDLCALC 49 Recent Labs Component Name 11/20/20 0600 HGBA1C 5.4 EAG 108 Recent Labs Component Name 11/20/20 0600 PLTCOUNT 219 * Tre Burris MD - 11/20/2020 5:49 AM CDT [facility] Stroke History and Physical Howie Delaney Age: [age] year old Date of : 11/13/1956 Date of Admission: 11/20/2020 Hospital Day: 0 Subjective COVID-19 Screening questionnaire for Code Stroke 1. Do you have a fever, cough, shortness of breath or other respiratory complaints? a. Yes b. No 2. Do you have nausea, vomiting, diarrhea or any other GI symptoms? a. Yes b. No 3. Have you recently traveled? (interstate or international) a. Yes b. No 4. Have you been around anyone who has been ill with similar symptoms? a. Yes b. No 5. Have you been in close contact with someone suspected or known to be positive for COVID-19? a. Yes b. No In addition to this list: Is this a young patient with few comorbidities that presents as an atypical candidate for acute stroke? N/A Patient is a 64 year old male presents with aphasia. Date last known well: 11/20/20 Time last known well: 1:00 AM Blood Glucose: 86 Blood Pressure: 105/95 Timeline Code Stroke Paged 5:28 Arrival at [facility] ED 5:32 NIHSS Completed 5:37 First Imaging Slice 5:45 tPA orders placed N/A tPA begun N/A History of Present Illness 55 year old male presented with expressive aphasia that started upon awakening from his sleep. Spoke to patient's daughter over the phone who explained he was last known normal at 1AM when he went tobed. He woke up and had a fall in the kitchen yelled out her name. She went to find him on the floor with extremely slurred speech and unintelligible words. On arrival to [facility] ED his NIHSS was 23 mostly secondary to severe aphasia and inability to follow commands. He had significant right hip pain limiting movement on the right lower extremity. CTH was done which showed NAICP. CTA on prelim read showed no concern for LVO per radiology. Later attending aclled with final read that showed occlusion of left MCA M3 branch in the distal sylvian fissure. Medical history significant for HFpEF No past medical history on file. No past surgical history on file. (Not in a hospital admission) Allergy No Known Allergies Family History No family history on file. Social History Social History Socioeconomic History ??? Marital status: Not on file Spouse name: Not on file ??? Number of children: Not on file ??? Years of education: Not on file ??? Highest education level: Not on file Occupational History ??? Not on file Tobacco Use ??? Smoking status: Not on file Substance and Sexual Activity ??? Alcohol use: Not on file ??? Drug use: Not on file ??? Sexual activity: Not on file Other Topics Concern ??? Not on file Social History Narrative ??? Not on file Review of Systems Unable to review 2/2 AMS Objective No data found. Exam: General: Expressive aphasia HEENT: HC/AT Heart: RRR Lungs: NLB on RA Abdomen: ND Neuro Exam: Mental Status: Severe expressive aphasia with babbling of unintelligible words. Cranial Nerves: PERRL, EOMI, VF intact, facial expression symmetric, hearing intact to voice. Motor: Normal muscle bulk Normal muscle tone Moves b/l UE against gravity with out drift Unable to move RLE against garvity 2/2 right hip pain Unable to move LLE against gravity 2.2 to pain Reflexes: Diminished throughout Sensory: ARASELI Cerebellar: ARASELI Gait and Station: deferred ECG: pending Ischemic Stroke Documentation Comorbidities CHF Cardiovascular/Cerebrovascular Comorbidities CHF NIHSS Stroke Scale: Interval: Baseline Time: 5:37 Person Administering Scale: Tre Burris MD 1a Level of consciousness 0 = Alert; keenly responsive. 1b LOC questions 2 = Answers neither question correctly. 1c LOC commands 2 = Performs neither task correctly. 2 Best gaze 0 = Normal. 3 Visual 0 = No visual loss. 4 Facial Palsy 0 = Symmetrical movements. 5a Motor Left Arm 3 = No effort against gravity; limb falls. 5b Motor Right Arm 3 = No effort against gravity; limb falls. 6a Motor Left Leg 4 = No movement. 6b Motor Right Leg 4 = No movement. 7 Limb Ataxia 0 = Absent. 8 Sensory 0 = Normal; no sensory loss. 9 Best Language 3 = Mute, global aphasia; no usable speech or auditory comprehension. 10 Dysarthria 2 = Severe dysarthria; patient's speech is so slurred as to be unintelligible in the absence of or out of proportion to any dysphasia, or is mute/anarthric. 11 Extinction/Inattention 0 = No abnormality. Total - 23 tPA - INCLUSION criteria for treatment 0-3 hours from last known well: 1. Age greater than or equal to 18 years old? Y 2. Clinical presentation consistent with acute ischemic stroke? Y 3. Head CT excludes ICH as primary cause of stroke symptoms? Y tPA - EXCLUSION criteria for treatment 0-3 hours from last known well: 1. Current intracranial hemorrhage or subarachnoid hemorrhage? N 2. Active internal bleeding? N 3. Recent (<3 months) intracranial/intra-spinal surgery or serious head trauma? N 4. Presence of intracranial conditions that may increase the risk of bleeding (some neoplasms, AVMs, or aneurysms)? N 5. Bleeding diathesis? N 6. Current severe uncontrolled hypertension? N tPA - Additional EXCLUSION criteria for treatment 3-4.5 hours from last known well: 1. Age greater than 80 years old? N 2. NIHSS greater than 25? N 3. History of stroke and diabetes mellitus? N 4. Oral anticoagulant use regardless of INR? N tPA was not given due to: LKW > 4.5 hrs Alteplase Administered?: No IF NO - Contraindication: Last Known Well > 4.5 Hours or Unknown IF YES - Door to Needle >30 Minutes? No IF YES - Reason for Delay: Not Applicable Large Vessel Occlusion Suspected?: Yes IF YES - Thrombectomy Candidate?: NO IF YES - IVR Activated: YES Mechanical Thrombectomy - INCLUSION criteria: 1. Age greater than or equal to 18 years old? Y 2. Clinical presentation consistent with acute ischemic stroke? Y 3. Head CT excludes ICH as primary cause of stroke symptoms? Y Mechanical Thrombectomy - EXCLUSION criteria: 1. Evidence of proximal large vessel intracranial occlusion? N 2. Completed large infarction on neuroimaging? N 3. Baseline disability with modified [place] score greater than or equal to 3? N 4. Patient and/or family refusal of treatment? N 5. Mild/non-disabling neurological deficits? N Mechanical Thrombectomy not considered due to: Distal M3 occlusion Assessment Howie Delaney is a 64 year old male presenting for expressive aphasia. Stroke Type: Ischemic Stroke Mechanism: Cardioembolic vs Large Artery vs Small Vessel/HTN vs Cryptogenic vs Aneurysm vs. AVM Plan TIA/Stroke Workup; active - Patient will be admitted to the stroke service. - MRI brain - TTE and Telemetry; if TTE negative, consider SEAN - HbA1C, Lipid Panel, Cardiac Enzymes - UA and UDS - NPO until passes swallow - q4h vitals and neurological checks Blood Pressure Goals: Stroke/TIA without tPA < 220/120 Core Measures tPA administration: no Anti-thrombotic: ASA Statin: pending DVT prophylaxis: pending Swallow Evaluation: pending PT/OT Evaluation: pending Smoking cessation; will membership counselor: pending Individual Modifiable Risk Factors Hypertension: no Hyperlipidemia: no Diabetes: no Atrial Fibrillation: no Tobacco: no Additional Hospital Problems: Right hip pain -Xray right hip with fracture Tre Burris MD Neurology Resident documented in this encounter Consult Notes * Nanda Powell RD/SAHARA - 11/21/2020 10:33 AM CDTAssociated Order(s): IP CONSULT TO NUTRITIONAL SERV Clinical Nutrition Comments: Consult per Stroke Protocol. MRI negative for stroke. Pt on Cardiac diet, no intakes noted as of yet; will continue to follow for supplement need. 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 Skin intact. A1c 5.4%. No nutrition intervention warranted at this time. Will continue to follow Pt and plan of care through admission. Diet order accuracy Current diet order: Cardiac Standard Nutrition recommendation: agree with current nutrition order P.O.Intake for the past 48 hrs:No data recorded Height: 6' 1 (185.4 cm) Weight: (!) 316 lb (143.3 kg) Body mass index is 41.69 kg/m??.BMI Range: Morbidly Obese Class 3 Laboratory values and medication reviewed. No acute nutrition issues identified at this time. Recommendations: Continue with Cardiac diet as ordered and encourage adequate intakes. Monitoring per nutrition guidelines. RD Office: [id number] Pager: [phone] * Savi Spangler SLP - 11/21/2020 7:49 AM CDTAssociated Order(s): IP CONSULT TO PHYSICAL MED AND REHAB [facility] Acute Rehab received this consult through stroke protocol. Will follow and update pending medical work up and completion of therapy evaluations. Will need to verify financial status for further consideration. Thank you for this referral. Savi Spangler MA/CCC-PALS NURSE Clinical Liaison [facility] * Calos Marques APRN-BLIND INSTALLER - 11/20/2020 4:02 PM CDTAssociated Order(s): IP CONSULT TO INTERNAL MEDICINE Images from the original note were not included. GENERAL INTERNAL MEDICINE Consult Note Chief Complaint: Fall History of Present Illness: Howie Delaney is a 55 year old male with history of MIRELLA with nightly CPAP, OSH, CHRF, HTN, HLD, gout, peripheral neuropathy, CKD stage 3, HFpEF with EF75% (05/2020) who presented to [facility] this morning after a fall at home. Per the pt, he normally sleeping with a CPAP with 4L nightly but last night fellasleep while reading a book without the CPAP. Pt expressed difficulty remembering exact details of the event, but at ~0400 he awoke and walked to the restroom to urinate. He believes that he may havefell in the bathroom but unsure. He then walked to the kitchen were he fell on the floor and started to experience what seems to be expressive aphasia. His daughter was alerted to the noise and called EMS. Notably, the pt ED chart was not connected with his primary chart under name Howie Delaney, 1965. CSN: [id number] E#: [id number] Pt denied recent dizziness, lightheadedness, falls, palpations, chest pain, ADIS, N/V/D, F/C. Pt endorsed constipation, +LUZ, and increased pedal edema. Pt endorsed recently increasing his use of Lasix to 40mg BID d/t BLE swelling. Upon arrival to [facility], pt a afebrile with stable VS. Labs notable for partially compensated respiratory acidosis with hypoxia, trop negative, BNP 193 (chronically elevated), Cr 1.66 (baseline), WBC 11.0, flu and covid negative. Review of Systems: Pertinent positives in bold Constitutional: Negative for fevers, chills, fatigue, appetite changes, weight gain or weight loss. Eyes: Negative for visual disturbance. Ears, nose, mouth, throat, and face: Negative for sore throat, rhinorrhea. Respiratory: +LUZ. Negative for cough, shortness of breath or wheezing. Cardiovascular: Negative for chest pain or palpitations. Gastrointestinal: constipation. Negative for abdominal pain, nausea, vomiting, diarrhea, hematemesis, hematochezia and melena. Genitourinary: Negative for dysuria, frequency, urgency or incontinence. Hematologic/lymphatic: Negative for bleeding or easy bruising Integument: Negative for rash or ulcers Musculoskeletal: Negative for myalgias or arthralgias. Neurological: Negative for dizziness, lightheadedness, headache. Past Medical History: No past medical history on file. Surgical History: No past surgical history on file. Social History: Social History Socioeconomic History ??? Marital status: Single Spouse name: Not on file ??? Number of children: Not on file ??? Years of education: Not on file ??? Highest education level: Not on file Occupational History ??? Not on file Tobacco Use ??? Smoking status: Not on file Substance and Sexual Activity ??? Alcohol use: Not on file ??? Drug use: Not on file ??? Sexual activity: Not on file Other Topics Concern ??? Not on file Social History Narrative ??? Not on file Family History: No family history on file. Allergies: No Known Allergies Physical Examination: Pertinent positives in bold BP 115/74 Pulse 64 Temp 97.3 ??F (36.3 ??C) (Temporal) Resp 13 Wt 141.5 kg (312 lb) SpO2 97% GEN: Obese, well appearing in NAD HEENT: NCAT, EOMI, MMM RESP: Clear to auscultation bilaterally CARDIO: heart tone distant, regular rate and rhythm, Nl S1 and S2 No gallops. GI: Abdomen soft and non tender, non-distended, +BS, no organomegaly EXT: Fracture to RLE, 1+ pedal edema. NEURO: No focal deficits PSYCH: A+Ox3 SKIN: Warm and dry, no rashes or lesions Labs: CBC: Recent Labs Lab Units 11/20/20 0600 WBC 10??3/uL 11.0* RBC 10??6/uL 4.28* HGB g/dL 12.9 HCT % 39.9 BMP: Recent Labs Lab Units 11/20/20 0600 NA mmol/L 141 CL mmol/L 101 CO2 mmol/L 31* BUN mg/dL 29* CREATININE mg/dL 1.66* CALCIUM mg/dL 8.6 Magnesium: No results for input(s): MG in the last 168 hours. Phosphorus: No results for input(s): PHOS in the last 168 hours. Coagulation: Recent Labs Lab Units 11/20/20 0600 11/20/20 0547 PT Seconds 13.9 -- INR 1.1 1.1 Endocrine: No results for input(s): TSH, A1C in the last 168 hours. LFTs: Recent Labs Lab Units 11/20/20 0600 AST U/L 20 ALT U/L 16 TBILI mg/dL 0.5 ALB g/dL 2.7* Radiology: XR TIBIA FIBULA RIGHT 2VW Result Date: 11/20/2020 IMPRESSION: Minimally displaced fracture of the fibular head. Report drafted by Shamar Stapleton DO, MPH(resident) Dr. EUGENIO Resendiz M.D. have personally reviewed and interpreted this examination/study. This report was electronically signed by EUGENIO BENÍTEZ M.D. on 11/20/2020 10:01 AM . XR ANKLE RIGHT 3VW OR MORE Result Date: 11/20/2020 IMPRESSION: No acute osseous injury. Report drafted by Kiel Vu M.D. (resident) Dr. HARRISON Resendiz have personally reviewed and interpreted this examination/study. This report was electronically signed by HARRISON SANDHU on 11/20/2020 2:[address] CERVICAL SPINE WO CONTRAST Result Date: 11/20/2020 IMPRESSION: 1.No acute osseous abnormality. 2.Degenerative changes without critical spinal canal stenosis. 3.Diffuse enlargement and heterogeneity of the thyroid gland. Further evaluation with thyroid sonogram is recommended. Dictated by Mariana Orr M.D. (cath lab radiology technician) Dr. DIVINA Resendiz have personally reviewed and interpreted this examination/study. This report was electronically signed by DIVINA DUDLEY on 11/20/2020 11:21 AM . MRI BRAIN WO CONTRAST Result Date: 11/20/2020 IMPRESSION: 1. No acute intracranial hemorrhage or evidence of acute ischemic infarct. This report was approved by Lj Womack on 11/20/2020 1:[address] FABRIZIO Resendiz have personally reviewedand interpreted this examination/study. This report was electronically signed by FABRIZIO GUAN on 11/20/2020 1:42 PM . XR CHEST 1VW PORTABLE Result Date: 11/20/2020 FINDINGS/IMPRESSION: The lungs are hypoinflated with associated bronchovascular crowding. Opacity seen in the left lower lung may represent atelectasis versus airspace disease; small left pleural effusion may be associated. No right pleural effusion. No pneumothorax is seen. The cardiac silhouette is borderline enlarged. Evaluation of the mediastinum is limited by mild patient rotation to the left. No acute fractures are seen. Report drafted by Shamar Stapleton DO, MPH (cath lab radiology technician) Dr. EUGENIO Resendiz M.D. have personally reviewed and interpreted this examination/study. This report was electronically signed by EUGENIO BENÍTEZ M.D. on 11/20/2020 10:34 AM . XR KNEE RIGHT 3VW Result Date: 11/20/2020 IMPRESSION: Fracture of the fibular head. This report was electronically signed by EUGENIO BENÍTEZ M.D. on 11/20/2020 8:46 AM . XR PELVIS W RIGHT HIP 2VW Result Date: 11/20/2020 IMPRESSION: No acute osseous abnormality. Report drafted by Shamar Stapleton DO, MPH (resident) Dr. EUGENIO Resendiz M.D. have personally reviewed and interpreted this examination/study. This report was electronically signed by EUGENIO BENÍTEZ M.D. on 11/20/2020 10:[address] ANGIO BRAIN NECK STROKE Addendum Date: 11/20/2020 ORIGINAL REPORT EXAMINATION: CT angiography of the [...] without wall calcification or hemodynamically significant stenosis. Thereis occlusion of a left MCA M3 branch in the distal sylvian fissure (series 8 image). The anterior and middle cerebral arteries are otherwise within normal limits. There is a normal anterior communicating artery. The vertebral arteries are normal in intracranial and extracranial course. The basilar artery is normal. The posterior cerebral arteries are within normal limits. The right posterior commu nicating artery is visualized There is fusion of [...] signed by DIVINA DUDLEY on 11/20/2020 8:00 AM . ADDENDUM #1 Upon further review, the left MCA branch vessel that was originally thought to be occluded is probably a vein. This report was electronically signed by DIVINA DUDLEY on 11/20/2020 2:07 PM . Result Date: 11/20/2020 IMPRESSION: 1.Occlusion of left MCA M3 branch in the distal sylvian fissure. Otherwise, no abnormality of the intracranial arteries. 2.No stenosis of the cervical segment of carotid and vertebral arteries. The findings were discussed with Dr. Turner at 7:[address] Dudley. This report was electronically signed by DIVINA DUDLEY on 11/20/2020 8:[address] BRAIN - Stroke Result Date: 11/20/2020 IMPRESSION: No acute intracranial abnormality. The preliminary findings were discussed by Dr. Egan with Dr. Burris at 5:57 AM on 11/20/2020. This report was electronically signed by DIVINA DUDLEY on 11/20/2020 7:45 AM . XR STRESS ANY JOINT Result Date: 11/20/2020 FINDINGS/IMPRESSION: A single internal oblique stress view of the right ankle shows no widening of the medial clear space. Deformity of the distal tibia is redemonstrated which may indicate a nondisplaced fracture. I, Dr. HARRISON SANDHU have personally reviewed and interpreted this examination/study. This report was electronically signed by HARRISON SANDHU on 11/20/2020 2:27 PM . Assessment: Howie Delaney is a 55 year old male with history of MIRELLA with nightly CPAP, OSH, CHRF, HTN, HLD, gout, peripheral neuropathy, CKD stage 3, HFpEF with EF75% (05/2020) who presented to [facility] this morning after a fall at home. Recommendations: # Fall # Near syncope # Alerted mental status, resolved - CT Stroke without evidence of acute infarct or hemorrhage, no skull fx - CT Brain angio with occlusion of left MCA M3 branch - CT Cervical Spine without acute osseous abnormality, degenerative changes without critical spinalcanal stenosis - MRI without acute intracranial hemorrhage or evidence of acute ischemic infarct To Do: - Assess orthostatic VS - F/U ECHO with bubble study # Acute on chronic hypoxic hypercapniec respiratory faliure - VBG with ph 7.37, pco2 59, po2 32, hco3 34.1 To Do: - Titrate O2 with keep SpO2 >92% - Nightly CPAP, at home settings # Enlarged thyroid gland - Incidental finding on CT cervical spine To Do: - Order thyroid sonogram - Check TSH # HTN # HFpEF - Home coreg 12.5 BID - Lasix 40mg BID To Do: - Hold if normotensive pending ECHO # CKD - Cr 1.66, at baseline # RLE fracture - Per Ortho management Internal Medicine Team 1 will become primary for this pt at 0700 11/21/2020, thank you. DVT PPx: Hold per Neurology order, consider heparin given CKD once neurological cleared. Code Status: Full This will be discussed with the Attending Physician. Calos Marques APRN-BLIND INSTALLER General Internal Medicine 11/20/2020 4:03 PM Associated attestation - Evan TomlinDO - 11/20/2020 8:28 PM CDT Symptoms resolved. TIA vs cardiac vs blood pressure vs respiratory etiology. Plan to transfer to medicine on 11/21/20. Evan Tomlin DO 11/20/2020 * Lucinda Castro MD - 11/20/2020 1:11 PM CDT [facility] Orthopedic Tra[facility] Surgery Consultation Note Howie Delaney, 55 year old, male : 1965 CSN: [id number] Primary Care Physician: No primary care provider on file. Chief Complaint Chief Complaint Patient presents with ??? Aphasia Pt FESTUS ([place]) presents to the ED with c/o stroke-like symptoms including expressive aphasia and slurred speech. Pt LKW 0430. Per EMS, daughter found patient leaning against his car and wasincoherently babbling. Per EMS, pt fell twice d/t symptoms. C-collar applied to patient on scene. Per EMS, pt was not responding to verbal/painful stimuli en route but became more alert upon ED arrival. Pt arrives with c-collar in place. Pt AOx4. Admission Date/Time: 11/20/2020 5:44 AM Today's Date/Time: 11/20/2020 1:12 PM HPI Consulting Service: Emergency Dept [facility] Orthopedic Trauma Surgery consulted for evaluation/management of: right knee pain Howie Delaney is a 55 year old male who presented to [facility] on 11/20/2020 after sustaining a syncopal episode. Patient presents with right knee pain and head pain. Patient is unsure if he hit his head when he fell and is amnestic to the event. Patient was ambulatory on the scene. Patient describes the pain as sharp/shooting without radiation. Symptoms are aggravated by movement. Symptoms improve with rest. Patient denies numbness/paresthesias. 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 PSHx No past surgical history on file. Social Hx Social History Tobacco Use ??? Smoking status: Not on file Substance Use Topics ??? Alcohol use: Not on file Family Hx family history is not on file. Allergies No Known Allergies Medications Current Facility-Administered Medications Medication ??? *Hold/Avoid Medication ??? *Hold/Avoid Medication ??? 0.9% NaCl infusion ??? 0.9% NaCl injection 3 mL And ??? 0.9% NaCl injection 1-10 mL ??? 0.9% NaCl injection 3 mL And ??? 0.9% NaCl injection 3 mL ??? labetalol (Normodyne; Trandate) injection 10 mg Or ??? hydrALAZINE (Apresoline) injection 10 mg ??? iopamidol (Isovue 370) 76 % contrast ??? metoclopramide (Reglan) injection 5 mg ??? metoclopramide (Reglan) injection 5 mg ??? ondansetron (disintegrating) (Zofran ODT) tablet 4 mg ??? ondansetron (Zofran) injection 4 mg ??? polyethylene glycol 3350 (Miralax) packet 17 g No current outpatient medications on file. Review of Systems A 12 point review of systems was performed and was negative except for: what was mentioned in the HPI Physical Exam Blood pressure 115/74, pulse 64, temperature 97.3 ??F (36.3 ??C), temperature source Temporal, resp. rate 13, weight (!) 141.5 kg (312 lb), SpO2 97 %. General: Awake, cooperative, in no acute distress. CV: Regular rate Pulm: No audible wheezing, no use of accessory muscles Abd: soft, nontender, nondistended Musculoskeletal: Right lower extremity: -Appearance: skin intact, compartments soft/compressible -Tenderness: TTP over fibular head, TTP over medial knee and with valgus stress, TTP over anterior ankle -ROM: mild tenderness to passive range of motion of knee and ankle; no tenderness to passive range of motion of hip and foot. Negative log roll. Negative axial load. No crepitation -Motor: Able to plantarflex ankle, able to dorsiflex ankle, able to plantarflex great toe, able to dorsiflex great toe -Sensation: intact to light touch in DP/SP/Sural/Saphenous/Tibial nerve distributions -Vascular: toes warm and well perfused Imaging - XR right knee reviewed. Demonstrates fibular head fracture. - Stress XR of right ankle negative Assessment/Plan: 55 year old male with right fibular head fracture s/p syncopal episode 1. Weight bearing Status: RLE WBAT in KI with assistive device 2. Dispo: Patient is OK for Discharge from OrthoTrauma perspective. They can follow up with Dr. Crowe in 2 week(s) with XR views of right knee. They will need to call [phone] to schedule/confirm appointment. Please call with any questions or concerns 3. Patient was counseled to the nature of their diagnosis and demonstrated understanding. Questionssolicited and answered Lucinda Castro MD 11/20/2020 1:12 PM Follow up Contact Information: Orthopaedic Surgery [facility] Medicine, Level I-Orthopaedic Surgery [address] [place] [id number] Visit our website at [email or web address] for information about our practice and an interactive health encyclopedia. Please visit [email or web address] to access your health record, ask questions, request medication refills, and request appointments for non-urgent needs after you have configured your [employer] account. If you do not currently have access, please contact one of our staff members or call [phone]. For after hour emergencies, please call and press 0 for the gang bore operator in order to page the orthopedic resident health education aide. documented in this encounter ED Notes * Flaquito Tejada RN - 11/20/2020 7:20 PM CDT Bedside NIH and handoff done with Audra ESCALANTE * Audra Solis RN - 11/20/2020 6:16 PM CDT Pt resting in bed at this time ordering dinner. Respirations even unlabored, NAD noted. All concerns addressed. Fiance at bedside. * Audra Solis RN - 11/20/2020 4:47 PM CDT Ortho Resident to pt bedside to apply knee immoblizer. * Audra Solis RN - 11/20/2020 4:46 PM CDT IM NUT SORTER Jerald to pt bedside for assessment at this time. * Audra Solis RN - 11/20/2020 2:20 PM CDT Pt resting in bed eating meal tray at this time. NAD noted. Pt fiance at bedside. * Audra Solis RN - 11/20/2020 1:22 PM CDT Ortho & X-ray to pt bedside at this time. * Yamila Bettencourt RN - 11/20/2020 12:50 PM CDT c-collar removed per erp. * Audra Solis RN - 11/20/2020 11:41 AM CDT Pt appears asleep at this time. Respirations even, unlabored. NAD noted. Fiance at bedside. Call light w/in reach. * Audra Solis RN - 11/20/2020 10:09 AM CDT Pt to MRI at this time. * Audra Solis RN - 11/20/2020 9:04 AM CDT Pt to CT at this time. * Radha Haile MD - 11/20/2020 7:04 AM CDT ASSUMED CARE NOTE Patient signed out to me by Dr. Cordero at 7:04 AM. Howie Delaney is a 55 year old male with history of CHF with preserved ejection fraction, HTN, MIRELLA on CPAP being evaluated for altered mental status. Arrived as stroke alert as patient could not get outwords, gradually improving over time in the ED. Following commands, RLE pain/?pain-limited weaknessnoted on examination with NIHSS. Head CT with no ICH, CTA head/neck with no obvious occlusion. Arrived as stroke alert, not tPA candidate. CXR with LLL opacity but similar to prior X-rays. At this time the patient's condition is Stable. Plan for f/u on stroke recommendations. Vitals: 11/20/20 0609 BP: 105/95 Pulse: 76 Resp: 18 Temp: 97.3 ??F (36.3 ??C) SpO2: 96% Weight: (!) 141.5 kg (312 lb) ED Course: 7:30am - Patient reassessed, LLE weakness, aphasic, tearful in room as he cannot get words out. Concern for CVA, called stroke team to discuss. 8:00am - Stroke team called, they state that M3 occlusion noted on CTA. Possible still tPA candidate. They will come to assess. 9:00am - Upon reassessment by stroke team, the initial time of onset was fairly vague, and patient is not good tPA candidate. Will plan on admission to stroke floor. Clinical Impression: 1. Expressive aphasia 2. Acute pain of right knee Disposition: Admission to stroke floor. * Ella Jasso - 11/20/2020 6:09 AM CDT Pt [place]ST[place] ([place]) presents to the ED with c/o stroke-like symptoms including expressive aphasia and slurred speech. Pt LKW 0430. Per EMS, daughter found patient leaning against his car and wasincoherently babbling. Per EMS, pt fell twice d/t symptoms. C-collar applied to patient on scene. Per EMS, pt was not responding to verbal/painful stimuli en route but became more alert upon ED arrival. Pt arrives with c-collar in place. Pt AOx4. No past medical history on file. No past surgical history on file. * Raul Sauceda RN - 11/20/2020 6:00 AM CDT Bed: [facility] Expected date: Expected time: Means of arrival: Comments: CODE STROKE @ 0527 * Sy Cordero MD - 11/20/2020 5:46 AM CDT Emergency Medicine Attending Note Interval History : Chief Complaint Patient presents with ??? Aphasia Pt FESTUS [facility]) presents to the ED with c/o stroke-like symptoms including expressive aphasia and slurred speech. Pt LKW 0430. Per EMS, daughter found patient leaning against his car and wasincoherently babbling. Per EMS, pt fell twice d/t symptoms. C-collar applied to patient on scene. Per EMS, pt was not responding to verbal/painful stimuli en route but became more alert upon ED arrival. Pt arrives with c-collar in place. Pt AOx4. Howie Delaney is a 55 year old male with a PMHx (per daughter) of COPD, CHF, unspecified lung and kidney problems, and recent gastric bypass surgery who was BIBEMS to the ED c/o stroke-like symptoms. Ptwas found leaning over his car at home incoherently babbling. Per EMS, pt stated his sx started within the last hour and his daughter states he has fallen twice d/t the symptoms. His LKW was 0430. Hehas slurred speech and expressive aphasia. En route pt went unresponsive even to painful stimuli, but returned to his symptomatic condition prior to arrival in the ED. HPI limited 2/2 AMS and acuity of condition. No past medical history on file. No past surgical history on file. Social History Socioeconomic History ??? Marital status: Single Spouse name: Not on file ??? Number of children: Not on file ??? Years of education: Not on file ??? Highest education level: Not on file Occupational History ??? Not on file Tobacco Use ??? Smoking status: Not on file Substance and Sexual Activity ??? Alcohol use: Not on file ??? Drug use: Not on file ??? Sexual activity: Not on file Other Topics Concern ??? Not on file Social History Narrative ??? Not on file Social Determinants of Health Financial Resource Strain: ??? Difficulty of Paying Living Expenses: Food Insecurity: ??? Worried About Running Out of Food in the Last Year: ??? Ran Out of Food in the Last Year: Transportation Needs: ??? Lack of Transportation (Medical): ??? Lack of Transportation (Non-Medical): Physical Activity: ??? Days of Exercise per Week: ??? Minutes of Exercise per Session: Stress: ??? Feeling of Stress : Social Connections: ??? Frequency of Communication with Friends and Family: ??? Frequency of Social Gatherings with Friends and Family: ??? Attends Orthodox Services: ??? Active Member of Clubs or Organizations: ??? Attends Club or Organization Meetings: ??? Marital Status: Intimate Partner Violence: ??? Fear of Current or Ex-Partner: ??? Emotionally Abused: ??? Physically Abused: ??? Sexually Abused: No Known Allergies Review of Systems: (+) positive Review of Systems Reason unable to perform ROS: AMS. Physical Exam Vitals: 11/20/20 0609 BP: 105/95 Pulse: 76 Resp: 18 Temp: 97.3 ??F (36.3 ??C) SpO2: 96% Weight: (!) 141.5 kg (312 lb) Physical Exam Vitals and nursing note reviewed. Constitutional: General: He is awake. He is not in acute distress. Appearance: He is well-developed and well-groomed. HENT: Head: Normocephalic and atraumatic. Mouth/Throat: Mouth: Mucous membranes are moist. Eyes: Conjunctiva/sclera: Conjunctivae normal. Pupils: Pupils are equal, round, and reactive to light. Comments: Pupils 3 mm Cardiovascular: Rate and Rhythm: Normal rate and regular rhythm. Pulmonary: Effort: Pulmonary effort is normal. No respiratory distress. Breath sounds: Normal breath sounds. No wheezing. Abdominal: General: There is no distension. Palpations: Abdomen is soft. Tenderness: There is no abdominal tenderness. There is no guarding or rebound. Musculoskeletal: Cervical back: Normal range of motion and neck supple. Comments: no point ttp of pelvis or lower extremities Skin: General: Skin is warm and dry. Neurological: Mental Status: He is alert. Comments: expressive aphasia repetitive nonsensical babbling follows commands no drift of upper or lower extremities however yells with movement of RLE Medical Decision Making: Problem List: 1. Expressive aphasia 2. RLE pain - Ddx: ICH vs ischemic CVA vs ACS vs electrolyte abnormality vs EtOH intoxication vs polysubstance use vs hip fracture vs conversion disorder vs other - PLAN: labs, CXR, CT imaging, stroke neuro at bedside on arrival see below for further orders/plan. Orders Placed This Encounter ??? SARS-COV-2 (COVID-19)+INFLU A+B PCR RAPID ??? CT BRAIN - Stroke ??? CT ANGIO BRAIN NECK STROKE ??? XR PELVIS W RIGHT HIP 2VW ??? XR CHEST 1VW PORTABLE ??? XR KNEE RIGHT 3VW ??? CBC W AUTO DIFFERENTIAL ??? COMPREHENSIVE METABOLIC PANEL ??? PT-INR [facility] ??? TROPONIN I ??? TROPONIN I ??? URINALYSIS W/MICROSCOPIC REFLEX TO CULTURE ??? URINE DRUG SCREEN IMMUNOASSAY ??? BLOOD GASES CRISTY + COOX PANEL ??? ALCOHOL ETHYL BLOOD ??? CONSULT TO MEDICAL EQUIPMENT TECHNICIAN ??? INR WHOLE BLOOD - POINT OF CARE (IP) STROKE ??? EKG 12-LEAD ??? AND Linked Order Group ??? 0.9% NaCl injection 3 mL ??? 0.9% NaCl injection 1-10 mL ??? iopamidol (Isovue 370) 76 % contrast Data Review: (All Labs/Imaging/ECG, other diagnostics independently interpreted by me.) - MONITORING: The patient's Produce Buyer Rhythm was interpreted by me. The machine cloth measurer showed 76. The patient's Oxygen Saturation Monitor was interpreted by me. The reading was 96%. The patient wason RA at the time of the reading. This is interpreted as nml. - ECG: Interpreted by me: Date: 11/20/2020 Time: 0552 R&R: NSR with a ventricular rate of 70 bpm Additional findings: No ST elevation or depression QTC - 475 Otherwise nml EKG No prior EKG for comparison - LABS: Labs Reviewed CBC W AUTO DIFFERENTIAL - Abnormal; Notable for the following components: Result Value WBC 11.0 (*) RBC 4.28 (*) RDW-SD 55.0 (*) RDW-CV 16.2 (*) Eosinophils Absolute 0.50 (*) All other components within normal limits COMPREHENSIVE METABOLIC PANEL - Abnormal; Notable for the following components: BUN 29 (*) Creatinine 1.66 (*) CO2 31 (*) Albumin 2.7 (*) Albumin/Globulin Ratio 0.8 (*) eGFR by CKD-EPI 45 (*) All other components within normal limits PT-INR [facility] - Normal TROPONIN I - Normal CREATININE - POCT INTERFACED - Normal SARS-COV-2 (COVID-19)+INFLU A+B PCR RAPID URINALYSIS W/MICROSCOPIC REFLEX TO CULTURE URINE DRUG SCREEN IMMUNOASSAY BLOOD GASES CRISTY + COOX PANEL ALCOHOL ETHYL BLOOD TROPONIN I INR WHOLE BLOOD - POINT OF CARE (IP) STROKE TYPE + SCREEN PANEL BLOOD TYPE VERIFICATION - IMAGING: CT BRAIN - Stroke (Results Pending) CT ANGIO BRAIN NECK STROKE (Results Pending) XR PELVIS W RIGHT HIP 2VW (Results Pending) XR CHEST 1VW PORTABLE (Results Pending) XR KNEE RIGHT 3VW (Results Pending) No results found. - MEDS: Medications 0.9% NaCl injection 3 mL (has no administration in time range) And 0.9% NaCl injection 1-10 mL (has no administration in time range) iopamidol (Isovue 370) 76 % contrast (100 mL Intravenous $ Given - Contrast 11/20/20 0553) ED COURSE 4:42 AM - Pt arrived in the ED with Stroke Neuro at bedside. Creatinine 1.66, remainder of electrolytes overall within reasonable normal limits. Hemoglobin normal at 12.9, WBC not significantly elevated at 11. Preliminary radiology report: CTA Brain Neck: 11/20/2020 6:03:42 AM? No large vessel stenosis, occlusion or aneurysm of the head or neck CT Head: 11/20/2020 6:17:47 AM? Correction: There is no area of focal hypoattenuation in the left insular lobe No large vessel occlusions noted CT imaging per Radiology reads, however high concern for stroke given patient's aphasia. Following commands in no focal weakness appreciated. Awaiting stroke neurology recommendations. 6:50 AM - Spoke with daughter. Per daughter, pt fell prior to symptoms. He states this has never happened before. Pt also states that he can not have a souza d/t foreign body in bladder. 7:00 AM - Signed out to Dr. Haile, pending Stroke Neuro recommendations and further workup. This patient was evaluated during the COVID-19 pandemic. CRITICAL CARE IN THE ED: Patient is critically ill due to: 1. Expressive aphasia 2. Acute pain of right knee - Patient is at high risk for complications and morbidity or mortality. YES - Patient is critically ill with vital organ impairment or failure. YES - There is high probability of imminent or life threatening deterioration in the patient's condition. YES - Patient is unable or incompetent to participate in giving a history and/or making decisions and discussion is necessary for determining treatment decisions. YES Time involved in the performance of separately billable procedures, teaching, reviewing education material was not counted towards critical care time. Time with bedside care: 20 minutes Time in discussion with family: 5 minutes Time reviewing old medical records: 0 minutes Time reviewing labs/radiographs/ECG (and other diagnostics): 5 minutes Time with Tv Host services: 5 minutes Time completing documentation: 5 minutes I was directly involved in the patient's care for a Total Critical Care Time of: 40 minutes Orders and Medicine administered during this encounter: Orders Placed This Encounter ??? SARS-COV-2 (COVID-19)+INFLU A+B PCR RAPID ??? CT BRAIN - Stroke ??? CT ANGIO BRAIN NECK STROKE ??? XR PELVIS W RIGHT HIP 2VW ??? XR CHEST 1VW PORTABLE ??? XR KNEE RIGHT 3VW ??? CBC W AUTO DIFFERENTIAL ??? COMPREHENSIVE METABOLIC PANEL ??? PT-INR [facility] ??? TROPONIN I ??? TROPONIN I ??? URINALYSIS W/MICROSCOPIC REFLEX TO CULTURE ??? URINE DRUG SCREEN IMMUNOASSAY ??? BLOOD GASES CRISTY + COOX PANEL ??? ALCOHOL ETHYL BLOOD ??? CONSULT TO MEDICAL EQUIPMENT TECHNICIAN ??? INR WHOLE BLOOD - POINT OF CARE (IP) STROKE ??? EKG 12-LEAD ??? AND Linked Order Group ??? 0.9% NaCl injection 3 mL ??? 0.9% NaCl injection 1-10 mL ??? iopamidol (Isovue 370) 76 % contrast Medications 0.9% NaCl injection 3 mL (has no administration in time range) And 0.9% NaCl injection 1-10 mL (has no administration in time range) iopamidol (Isovue 370) 76 % contrast (100 mL Intravenous $ Given - Contrast 11/20/20 4581) Clinical Impression: 1. Expressive aphasia 2. Acute pain of right knee Disposition: Signed out to Dr. Haile By signing my name below, I, Felix Puentes, attest that this documentation has been prepared under the direction and in the presence of Dr. Cordero. Signed: Richard Molina. Date: 11/20/2020. I, Dr. Cordero, personally performed the services described in this documentation. All medical record entries made by the scribe were at my direction and in my presence. I have reviewed the chart and agree that the record reflects my personal performance and is accurate and complete. documented in this encounter Plan of Treatment Scheduled Orders Name Type Priority Associated Diagnoses Order Schedule INR WHOLE BLOOD - POINT OF CARE (IP) STROKE Point of Care Testing Routine ONCE for 1 Occurrences starting 11/20/2020 until 11/20/2020 REASSESSMENT PARAMETERS Respiratory Care Routine ONCE for 1 Occurrences starting 11/20/2020 until 11/20/2020 documented as of this encounter Procedures Procedure Name Priority Date/Time Associated Diagnosis Comments CARDIAC EKG ORDER 11/25/2020 7:1 1 AM CDT GLUCOSE - POINT OF CARE Routine 11/21/2020 11:29 AM CDT GLUCOSE - POINT OF CARE Routine 11/21/2020 7:29 AM CDT CBC W/O DIFFERENTIAL Routine 11/21/2020 1:44 AM CDT BASIC METABOLIC PANEL (CALCIUM TOTAL) Routine 11/21/2020 1:44 AM CDT TSH AM Draw 11/21/2020 1:44 AM CDT GLUCOSE - POINT OF CARE Routine 11/20/2020 9:37 PM CDT ECHO COMPLETE W BUBBLE STUDY Routine 11/20/2020 3:36 PM CDT Expressive aphasia TROPONIN I Timed 11/20/2020 1:42 PM CDT TROPONIN I Timed 11/20/2020 1:42 PM CDT LIPID PROFILE STAT 11/20/2020 1:42 PM CDT XR STRESS ANY JOINT STAT 11/20/2020 1 :32 PM CDT Closed fracture of proximal end of right fibula, unspecified fracture morphology, initial encounter XR ANKLE RIGHT 3VW OR MORE STAT 11/20/2020 1:31 PM CDT Closed fracture of proximal end of right fibula, unspecified fracture morphology, initial encounter MRI BRAIN WO CONTRAST STAT 11/20/2020 10:54 AM CDT Expressive aphasia SARS-COV-2 (COVID-19)+INFLU A+B PCR RAPID STAT 11/20/2020 10:09 AM CDT BLOOD GASES CRISTY + COOX PANEL STAT 11/20/2020 10:05 AM CDT BLOOD TYPE VERIFICATION STAT 11/20/2020 10:05 AM CDT TROPONIN I Timed 11/20/2020 10:05 AM CDT TROPONIN I Timed 11/20/2020 10:05 AM CDT B-TYPE NATRIURETIC PEPTIDE STAT 11/20/2020 10:05 AM CDT ALCOHOL ETHYL BLOOD STAT 11/20/2020 1 0:05 AM CDT URINALYSIS W/MICROSCOPIC REFLEX TO CULTURE STAT 11/20/2020 9:59 AM CDT URINE DRUG SCREEN IMMUNOASSAY STAT 11/20/2020 9:[address] CERVICAL SPINE WO CONTRAST STAT 11/20/2020 9:12 AM CDT Expressive aphasia XR TIBIA FIBULA RIGHT 2VW STAT 11/20/2020 7:57 AM CDT Acute pain of right knee XR KNEE RIGHT 3VW STAT 11/20/2020 6:5 7 AM CDT Expressive aphasia XR PELVIS W RIGHT HIP 2VW STAT 11/20/2020 6:42 AM CDT Expressive aphasia XR CHEST 1VW PORTABLE STAT 11/20/2020 6:42 AM CDT Expressive aphasia PT-INR [facility] STAT 11/20/2020 6:00 AM CDT TROPONIN I STAT 11/20/2020 6:00 AM CDT HEMOGLOBIN A1C Add on 11/20/2020 6:00 AM CDT TYPE + SCREEN PANEL STAT 11/20/2020 6 :00 AM CDT CBC W AUTO DIFFERENTIAL STAT 11/20/2020 6:00 AM CDT COMPREHENSIVE METABOLIC PANEL STAT 11/20/2020 6:[address] ANGIO BRAIN NECK STROKE STAT 11/20/2020 5:51 AM CDT Expressive aphasia CREATININE - POCT INTERFACED Routine 11/20/2020 5:[address] BRAIN STROKE STAT 11/20/2020 5:45 AM CDT Expressive aphasia documented in this encounter Results * CARDIAC EKG ORDER (11/25/2020 7:11 AM CDT) Narrative 11/25/2020 7:11 AM CDT Ordered by an unspecified provider. Scanned Document CARDIAC SERVICES ORD ERABLES * GLUCOSE - POINT OF CARE (11/21/2020 11:29 AM CDT) Glucose WB/POC 105 70 - 115 mg/dL 11/21/2020 11:46 AM CDT [facility] Specimen Type Arterial 11/21/2020 11:46 AM CDT [facility] Blood BLOOD SPECIMEN / Unknown 11/21/2020 11:29 AM CDT 11/21/2020 11:46 AM CDT Provider Unknown LAB - POINT OF CARE ORDERABLES [facility] [address] [place] [address], [facility] [phone] * GLUCOSE - POINT OF CARE (11/21/2020 7:29 AM CDT) Glucose WB/POC 84 70 - 115 mg/dL 11/21/2020 7:38 AM CDT [facility] Specimen Type Arterial 11/21/2020 7:38 AM CDT [facility] Blood BLOOD SPECIMEN / Unknown 11/21/2020 7:29 AM CDT 11/21/2020 7:38 AM CDT Provider Unknown LAB - POINT OF CARE ORDERABLES [facility] [address] [place] [address], [facility] [phone] * (ABNORMAL) CBC W/O DIFFERENTIAL (11/21/2020 1:44 AM CDT) WBC 10.4 3.5 - 10.5 10? 3 /uL 11/21/2020 2:57 AM [facility] RBC 4.27(L) 4.30 - 5.70 10? 6 /uL 11/21/2020 2:57 AM [facility] Hemoglobin 13.1 12.0 - 17.6 g/dL 11/21/2020 2:57 AM [facility] Hematocrit 39.3 35.2 - 51.7 % 11/21/2020 2:57 AM [facility] MCV 92.0 80.7 - 98.3 fL 11/21/2020 2:57 AM [facility] MCH 30.7 26.7 - 34.0 pg 11/21/2020 2:57 AM [facility] MCHC 33.3 30.8 - 35.9 g/dL 11/21/2020 2:57 AM [facility] Platelet Count 189 150 - 400 10? 3 /uL 11/21/2020 2:57 AM [facility] RDW-SD 54.4(H) 36.0 - 50.0 fL 11/21/2020 2:57 AM [facility] RDW-CV 16.3(H) 11.2 - 14.8 % 11/21/2020 2:57 AM [facility] MPV 13.0(H) 9.4 - 12.9 fL 11/21/2020 2:57 AM [facility] nRBC Absolute 0.00 0 10? 3 /uL 11/21/2020 2:57 AM [facility] nRBC Auto 0.0 0 /100 WBC 11/21/2020 2:57 AM [facility] Blood BLOOD SPECIMEN / Unknown Lab Venipuncture / Unknown 11/21/2020 1:44 AM CDT 11/21/2020 2:32 AM CDT Dann Mendoza MD LAB - HEMATOLOGY ORD ERABLES [facility] [address] [place] [address], [facility] [phone] * (ABNORMAL) BASIC METABOLIC PANEL (CALCIUM TOTAL) (11/21/2020 1:44 AM CDT) BUN 26 7 - 26 mg/dL 11/21/2020 3:02 AM [facility] Creatinine 1.32(H) 0.71 - 1.16 mg/dL 11/21/2020 3:02 AM [facility] Sodium 141 136 - 145 mmol/L 11/21/2020 3:02 AM [facility] Potassium 3.7 3.5 - 4.5 mmol/L 11/21/2020 3:02 AM [facility] Chloride 103 98 - 107 mmol/L 11/21/2020 3:02 AM [facility] CO2 31(H) 22 - 29 mmol/L 11/21/2020 3:02 AM [facility] Glucose 81 70 - 115 mg/dL 11/21/2020 3:02 AM [facility] Calcium 8.5 8.4 - 10.2 mg/dL 11/21/2020 3:02 AM [facility] Anion Gap 11 8 - 18 11/21/2020 3:02 AM [facility] BUN/Creatinine Ratio 20 7 - 23 11/21/2020 3:02 AM [facility] Osmolality Calculated 296 270 - 300 mOsm/kg 11/21/2020 3:02 AM [facility] eGFR by CKD-EPI 60(L) >=90 mL/min/1.7 3 m2 11/21/2020 3:02 AM [facility] Blood BLOOD SPECIMEN / Unknown Lab Venipuncture / Unknown 11/21/2020 1:44 AM CDT 11/21/2020 2:32 AM CDT Dann Mendoza MD LAB - CHEMISTRY ORDE JONELLE [address] [address], [facility] [phone] * TSH (11/21/2020 1:44 AM CDT) Pathologist [facility] TSH 1.443 0.350 - 4.940 uIU/mL 11/21/2020 3:20 AM CDT [facility] Blood BLOOD SPECIMEN / Unknown Lab Venipuncture / Unknown 11/21/2020 1:44 AM CDT 11/21/2020 2:32 AM CDT Calos Marques KNOCKOUT MACHINE OPERATOR-BLIND INSTALLER LAB - CHEMISTR Y ORDERABLES Performing Organization Address City/[facility]/ZIP Co de Phone Number [address] [address], [facility] [phone] * (ABNORMAL) GLUCOSE - POINT OF CARE (11/20/2020 9:37 PM CDT) Pathologist [facility] Glucose WB/POC 143(H) 70 - 115 mg/dL 11/20/2020 9:46 PM CDT [facility] Specimen Type Cap Fingerstick 2020 9:46 PM CDT [facility] Blood BLOOD SPECIMEN / Unknown 11/20/2020 9:37 PM CDT 11/20/2020 9:46 PM CDT Dann Mendoza MD LAB - POINT OF CARE ORDERABLES Performing Organization Address City/[facility]/ZIP Co de Phone Number [address] [address], [facility] [phone] * ECHO COMPLETE W BUBBLE STUDY (11/20/2020 3:36 PM CDT) Anatomical Region Laterality Modality Chest Echo 11/20/2020 2:30 PM CDT Narrative Procedure Note Marely Walker MD - 11/21/2020 Dann Mendoza MD ECHOCARDIOGRAPHY RAD IANT * (ABNORMAL) LIPID PROFILE (11/20/2020 1:42 PM CDT) Cholesterol Total 95 <200 mg/dL 11/20/2020 2:21 PM T [facility] HDL 34(L) >40 mg/dL 11/20/2020 2:21 PM CDT [facility] Comment: ATP III Classification of HDL Cholesterol: ? <40 mg/dL: ??Considered a major risk factor. ? >60 mg/dL: ??Considered a negative risk factor. ? LDL Calculated 49 <100 mg/dL 11/20/2020 2:21 PM T [facility] Comment: ATP III Classification of LDL Cholesterol: ?<100 mg/dL: ??Optimal ? 100 - 129 mg/dL: ??Near Optimal/Above Optimal ? 130 - 159 mg/dL: ??Borderline High ? 160 - 189 mg/dL: ??High ?>190 mg/dL: ??Very High ? Triglycerides 61 <150 mg/dL 11/20/2020 2:21 PM [facility] Comment: ATP III Classification of Triglycerides: ?<150 mg/dL: ??Normal ? 150 - 199 mg/dL: ??Borderline High ? 200 - 400 mg/dL: ??High ?>500 mg/dL: ??Very High Blood BLOOD SPECIMEN / Unknown Venipuncture / Unknown 11/20/2020 1:42 PM CDT 11/20/2020 1:50 PM CDT Dann Mendoza MD LAB - CHEMISTRY HERNANDEZ SAL Performing Organization Address [facility]/State/ZIP Co de Phone Number [facility] [address] [place] [phone], [facility] [phone] * TROPONIN I (11/20/2020 1:42 PM CDT) Troponin I 0.016 <0.032 ng/mL 11/20/2020 2:28 PM CDT [facility] Blood BLOOD SPECIMEN / Unknown Venipuncture / Unknown 11/20/2020 1:42 PM CDT 11/20/2020 1:50 PM CDT Dann Mendoza MD LAB - CHEMISTRY HERNANDEZ SAL Performing Organization Address City/[facility]/ZIP Co de Phone Number [address] [address], [facility] [phone] * TROPONIN I (11/20/2020 1:42 PM CDT) Pathologist [facility] Troponin I 0.027 <0.032 ng/mL 11/20/2020 2:27 PM CDT [facility] Blood BLOOD SPECIMEN / Unknown Venipuncture / Unknown 11/20/2020 1:42 PM CDT 11/20/2020 1:50 PM CDT Sy Cordero MD LAB - CHEMISTRY ORDERABLES Performing Organization Address [facility]/ZIP Co de Phone Number [address] [address], [facility] [phone] * XR STRESS ANY JOINT (11/20/2020 1:32 PM CDT) Anatomical Region Laterality Modality Lower Extremity, Upper Extremity Radiographic Imaging 11/20/2020 2:13 PM CDT Impressions 11/20/2020 2:27 PM CDT FINDINGS/IMPRESSION: A single internal oblique stress view of the right ankle shows no widening of the medial clear space. Deformity of the distal tibia is redemonstrated which may indicate a nondisplaced fracture. I, Dr. HARRISON SANDHU have personally reviewed [...] isredemonstrated which may indicate a nondisplaced fracture. Dr. HARRISON Resendiz have personally reviewed and [...] swelling is present. Procedure Note Harrison Sandhu, DO - 11/20/2020 EXAMINATION: XR ANKLE RIGHT 3VW [...] Womack ?? on 11/20/2020 1:[address] FABRIZIO Resendiz have personally reviewed and interpreted this examination/study. This report was electronically signed by FABRIZIO GUAN ??on 11/20/2020 1:42 PM . Narrative 11/20/2020 [...] cervical spine appear normal. Procedure Note Fabrizio Guan MD - 11/20/2020 MRI BRAIN WO CONTRAST [...] 11/20/2020 1:42 PM . I, Dr. FABRIZIO GUAN have personally reviewed and interpreted this examination/study. This report was electronically signed by FABRIZIO GUAN on11/20/2020 1:42 PM . Sy Cordero MD MR ORDERABLES * SARS-COV-2 (COVID-19)+INFLU A+B PCR RAPID (11/20/2020 10:09 AM CDT) COVID-19 PCR Not detected Not detected 11/21/19 10:54 AM CDT [facility] Influenza A Rapid JERARDO Not Detected Not Detected 11/20/2020 10:54 AM CDT [facility] Influenza B JERARDO Rapid Not Detected Not Detected 11/20/2020 10:54 AM CDT [facility] Microbiology SPECIMEN FROM NASOPHARYNGEAL STRUCTURE / Unknown Collection / Unknown 11/20/2020 10:09 AM CDT 11/20/2020 10:24 AM CDT Narrative [facility] - 11/20/2020 10:54 AM CDT Influenza assay performed by Nucleic Acid Amplification. [...] acid amplification assay performance was validated by [facility]. This test has been authorized by the [...] this EUA assay are available upon request. Radha Haile MD LAB - MICROBIOLOGY O AL [address] [address], [facility] [phone] * TROPONIN I (11/20/2020 10:05 AM CDT) Troponin I 0.017 <0.032 ng/mL 11/20/2020 11:01 AM CDT [facility] Blood BLOOD SPECIMEN / Unknown Venipuncture / Unknown 11/20/2020 10:05 AM CDT 11/20/2020 10:31 AM CDT Dann Mendoza MD LAB - CHEMISTRY HERNANDEZ SAL Performing Organization Address City/State/[facility] de Phone Number [facility] [address] [place] [address], [facility] [phone] * (ABNORMAL) B-TYPE NATRIURETIC PEPTIDE (11/20/2020 10:05 AM CDT) BNP 193(H) <100 pg/mL 11/20/2020 11:01 AM CDT [facility] Comment: A decision threshold of 100 [...] 11/20/2020 10:05 AM CDT 11/20/2020 10:31 AM CDT Radha Haile MD LAB - CHEMISTRY ORDE JONELLE Performing Organization Address [facility] de Phone Number [address] [address], [facility] [phone] * ALCOHOL ETHYL BLOOD (11/20/2020 10:05 AM CDT) Ethanol (mg/dL) <10 <10 mg/dL 10:55 AM CDT [facility] Ethanol Calculated (g/dL) <0.010 <0.010 g/dL 11/20/2020 10:55 AM CDT [facility] Blood BLOOD SPECIMEN / Unknown Venipuncture / Unknown 11/20/2020 10:05 AM CDT 11/20/2020 10:31 AM CDT Narrative [facility] - 11/20/2020 10:55 AM CDT Ethanol Interp <10: None Detected. Depression of GREEN LUMBER GRADER: >100 mg/dl Potentially Critical: >250 mg/dl Potentially Fatal >400 mg/dl Ethanol in the patient's blood will contribute to the osmolar gap. Ethanol's contribution to the osmolar gap can be estimated by dividing the concentration of ethanol in mg/dL by 4.6. This test is for clinical use only and does not equal a BRISSA for legal purposes. Sy Cordero MD LAB - CHEMISTRY ORDERABLES Performing Organization Address [facility] de Phone Number [address] [address], [facility] [phone] * BLOOD TYPE VERIFICATION (11/20/2020 10:05 AM CDT) ABO Rh A POS 11/20/2020 11:05 AM T [facility] Blood Bank BLOOD SPECIMEN / Unknown Venipuncture / Unknown 11/20/2020 10:05 AM CDT 11/20/2020 10:36 AM CDT Sy Cordero MD LAB - BLOOD BAN K ORDERABLES [facility] [address] [place] [address], [facility] [phone] * (ABNORMAL) BLOOD GASES CRISTY + COOX PANEL (11/20/2020 10:05 AM CDT) pH Venous 7.37 7.32 - 7.42 pH 11/20/2020 10:35 AM [facility] pO2 Venous 32(L) 35 - 40 mmHg 11/20/2020 10:35 AM [facility] pCO2 Venous 59(H) 40 - 50 mmHg 11/20/2020 10:35 AM [facility] HCO3 Venous 34.1(HH) 20 - 30 mmol/L 11/20/2020 10:35 AM [facility] Comment:Critical value(s) maldonado ve been verified and called to and read back by Audra Solis RN at 10:34 on . Base Excess Venous 6.9(H) -2.0 - 2.0 mmol/L 11/20/2020 10:35 AM [facility] Oxyhemoglobin Venous 51.7 % 05/2020 10:35 AM [facility] Deoxyhemoglobin (HHB) Venous % 47.0 % 11/20/2020 10:35 AM [facility] Methemoglobin <0.8 0.0 - 2.0 % 11/20/2020 10:35 AM [facility] Carboxyhemoglobin 1.1 0.0 - 2.0 % 2020 10:35 AM [facility] O2 Content Venous 9.7 Interpret within clinical context mg/dL 11/20/2020 10:35 AM [facility] Hemoglobin by COOX 13.3 12.0 - 17.6 g/dL 11/20/2020 10:35 AM [facility] O2 Saturation Venous 52(L) >=70 % 05/2020 10:35 AM [facility] FI O2 Mixed Venous 21.0 % 2020 10:35 AM T [facility] Blood BLOOD SPECIMEN / Unknown Venipuncture / Unknown 11/20/2020 10:05 AM CDT 11/20/2020 10:27 AM CDT Narrative [facility] - 11/20/2020 10:35 AM CDT Carboxyhemoglobin Normal Concentration: Non-smokers: 0-2%; Smokers: 0-9%; Toxic: >20% Radha Haile MD LAB - BLOOD GASES OR DERABLES [address] [address], [facility] [phone] * TROPONIN I (11/20/2020 10:05 AM CDT) [facility] Troponin I 0.017 <0.032 ng/mL 11/20/2020 11:01 AM T [facility] Blood BLOOD SPECIMEN / Unknown Venipuncture / Unknown 11/20/2020 10:05 AM CDT 11/20/2020 10:31 AM CDT Sy Cordero MD LAB - CHEMISTRY ORDERABLES [address] [address], [facility] [phone] * URINE DRUG SCREEN IMMUNOASSAY (11/20/2020 9:59 AM CDT) Pathologist [facility] Amphetamines Screen Urine Negative Negative: < 1000 ng/mL 11/20/2020 10:46 AM T [facility] Barbiturates Screen Urine Negative Negative: < 200 ng/mL 11/20/2020 10:46 AM [facility] Benzodiazepine Screen Urine Negative Negative: < 200 ng/mL 11/20/2020 10:46 AM [facility] Opiates Urine Negative Negative: < 300 ng/mL 11/20/2020 10:46 AM [facility] Cocaine Metabolites Urine Negative Negative: < 300 ng/mL 11/20/2020 10:46 AM [facility] Phencyclidine Screen Urine Negative Negative: < 25 ng/ml 11/20/2020 10:46 AM [facility] Cannabinoids Screen Urine Negative Negative: <50 ng/mL 11/20/2020 10:46 AM [facility] Methadone Screen Urine Negative Negative: < 300 ng/mL 11/20/2020 10:46 AM [facility] Fentanyl Screen Urine Negative Negative: <1.0 ng/mL 11/20/2020 10:46 AM [facility] Urine URINE / Unknown Collection / Unknown 11/20/2020 9:59 AM T 11/20/2020 10:[address] [facility] Narrative [facility] - 11/20/2020 10:[address] [facility] The Urine Toxicology Screening Panel does not screen for Propoxyphene, Meprobamate, Carisoprodol, Trazodone, idvq-koo-uthnfyo medications and/or volatiles (Acetone, Isopropanol, Methanol or Ethylene Glycol). Ethanol, Salicylate, Acetaminophen, Tricyclic Antidepressants and several therapeutic drugs may be individually assayed in serum or plasma specimen. Toxicology testing by the [facility] is an aid to medical diagnosis and treatment of patients. No documented chain of custody was maintained. Results are intended to be used for clinical purposes only. ? Radha Haile MD LAB - URINE CHEMISTR Y ORDERABLES Performing Organization Address [facility]/State/ZIP Co de Phone Number [facility] [address] [place] [address], [facility] [phone] * URINALYSIS W/MICROSCOPIC REFLEX TO CULTURE (11/20/2020 9:[address] [facility]) Color UA Straw Straw, Yellow 11/20/2020 10:47 AM [facility] Clarity UA Clear Clear 11/20/2020 10:47 AM [facility] Specific [place] UA 1.012 1.005 - 1.030 11/20/2020 10:47 AM [facility] pH UA 7.0 5.0 - 8.0 pH 11/20/2020 10:47 AM [facility] Protein UA Negative Negative 11/20/2020 10:47 AM [facility] Glucose UA Negative Negative 11/20/2020 10:47 AM [facility] Ketone UA Negative Negative 11/20/2020 10:47 AM [facility] Bilirubin UA Negative Negative 11/20/2020 10:47 AM [facility] Blood UA Negative Negative 11/20/2020 10:47 AM [facility] Nitrite UA Negative Negative 11/20/2020 10:47 AM [facility] Leukocyte Esterase Negative Negative 11/20/2020 10:47 AM [facility] Urobilinogen UA Negative Negative mg/dL 11/20/2020 10:47 AM [facility] RBC UA 0-2 None Seen, 0-2, 3-5 /HPF 11/20/2020 10:47 AM [facility] WBC UA None Seen None Seen, 0-5 /HPF 11/20/2020 10:47 AM [facility] Squamous Epithelial Cells UA None Seen None Seen, 0-2, 3-5 /HPF 11/20/2020 10:47 AM CDT [facility] Urine URINE SPECIMEN OBTAINED BY CLEAN CATCH PROCEDURE / Unknown Collection / Unknown 11/20/2020 9:59 AM CDT 11/20/2020 10:27 AM CDT Narrative [facility] - 11/20/2020 10:47 AM CDT Culture Not Indicated Radha Haile MD LAB - URINALYSIS ORD ERABLES Performing Organization Address City/State/[facility] Co de Phone Number [facility] [address] [place] [address], [facility] [phone] * CT CERVICAL SPINE WO CONTRAST (11/20/2020 9:12 AM CDT) Anatomical Region Laterality Modality Spine Computed Tomogra phy 11/20/2020 9:16 AM CDT Impressions 11/20/2020 11:21 AM CDT IMPRESSION: 1.No acute osseous abnormality. 2.Degenerative changes without critical spinal canal stenosis. 3.Diffuse enlargement and heterogeneity of the thyroid gland. Further evaluation with thyroid sonogram is recommended. Dictated by Mariana Orr M.D. (cath lab radiology technician) I, Dr. DIVINA DUDLEY have personally reviewed [...] is recommended. Dictated by Mariana Orr M.D. (cath lab radiology technician) IDr. DIVINA have personally reviewed and interpreted this examination/study. This report was electronically signed by DIVINA DUDLEY on 11/20/2020 11:21AM . Radha Haile MD CT ORDERABLES * XR TIBIA FIBULA RIGHT 2VW (11/20/2020 7:57 AM CDT) Anatomical Region Laterality Modality Lower Extremity Radiographic Maribel ging 11/20/2020 8:44 AM CDT Impressions 11/20/2020 10:01 AM CDT IMPRESSION: Minimally displaced fracture of the fibular head. Report drafted by Shamar Stapleton DO, MPH (resident) IDr. EUGENIO M.D. have personally reviewed and interpreted this examination/study. This report was electronically signed by EUGENIO BENÍTEZ M.D. ??on 11/20/2020 10:01 AM . Narrative 11/20/2020 10:01 AM CDT EXAMINATION: XR TIBIA FIBULA RIGHT 2VW HISTORY: M25.561: Acute pain of right knee COMPARISON: None. FINDINGS: There is a minimally displaced fracture of the fibular head. There is no dislocation. Mild degenerative change is seen at the knee. Bone density and texture are normal. Procedure Note Eugenio Benítez MD - 11/20/2020 EXAMINATION: XR TIBIA FIBULA RIGHT 2VW HISTORY: M25.561: Acute pain of right knee COMPARISON: None. FINDINGS: There is a minimally displaced fracture of the fibular head. There is no dislocation. Mild degenerative change is seen at the knee. Bone density and texture are normal. IMPRESSION: Minimally displaced fracture of the fibular head. Report drafted by Shamar Stapleton DO, MPH (resident) Dr. EUGENIO Resendiz M.D. have personally reviewed and interpreted this examination/study. This report was electronically signed by EUGENIO BENÍTEZ M.D. on 11/20/2020 10:01 AM . Sy Cordero MD DIAGNOSTIC IMAG ING ORDERABLES * XR KNEE RIGHT 3VW (11/20/2020 6:57 AM CDT) Anatomical Region Laterality Modality Lower Extremity Radiographic Maribel ging 11/20/2020 8:44 AM CDT Impressions 11/20/2020 8:46 AM CDT IMPRESSION: Fracture of the fibular head. This report was electronically signed by EUGENIO BENÍTEZ M.D. ??on 11/20/2020 8:46 AM . Narrative 11/20/2020 8:46 AM CDT Exam: XR KNEE RIGHT 3VW Date: 11/20/2020 6:58 AM History: R47.01: Expressive aphasia, right knee pain COMPARISON: None FINDINGS: There is a minimally displaced fracture of the fibular head. There are mild tricompartment degenerative changes, greatest at the medial compartment. Bone density is normal. There is minimal joint effusion. Procedure Note Eugenio Benítez MD - 11/20/2020 Exam: XR KNEE RIGHT [...] This report was electronically signed by EUGENIO BENÍTEZ M.D. on 11/20/2020 8:46 AM . Sy Cordero MD DIAGNOSTIC IMAG ING ORDERABLES * XR PELVIS W RIGHT HIP 2VW (11/20/2020 6:42 AM CDT) Anatomical Region Laterality Modality Pelvis Radiographic Maribel ging 11/20/2020 10:0 4 AM CDT Impressions 11/20/2020 10:31 AM CDT IMPRESSION: No acute osseous abnormality. Report drafted by Shamar Stapleton DO, MPH (resident) Dr. EUGENIO Resendiz M.D. have personally reviewed and interpreted this examination/study. This report was electronically signed by EUGENIO BENÍTEZ M.D. ??on 11/20/2020 10:31 AM . Narrative [...] the lower lumbar spine. Procedure Note Eugenio Benítez MD - 11/20/2020 EXAMINATION: XR PELVIS W [...] drafted by Shamar Stapleton DO, MPH (resident) Dr. EUGENIO Resendiz M.D. have personally reviewed and interpreted this examination/study. This report was electronically signed by EUGENIO BENÍTEZ M.D. on 11/20/2020 10:31 AM . Sy Cordero MD DIAGNOSTIC IMAG ING ORDERABLES * XR CHEST 1VW PORTABLE (11/20/2020 6:42 AM CDT) Anatomical Region Laterality Modality Chest Radiographic Maribel ging 11/20/2020 9:53 AM CDT Impressions 11/20/2020 10:34 AM CDT FINDINGS/IMPRESSION: The lungs are hypoinflated with associated bronchovascular crowding. Opacity seen in the left lower lung may represent atelectasis versus airspace disease; small left pleural effusion may be associated. No right pleural effusion. No pneumothorax is seen. The cardiac silhouette is borderline enlarged. Evaluation of the mediastinum is limited by mild patient rotation to the left. No acute fractures are seen. Report drafted by Shamar Stapleton DO, MPH (cath lab radiology technician) Dr. EUGENIO Resendiz M.D. have personally reviewed and interpreted this examination/study. This report was electronically signed by EUGENIO BENÍTEZ M.D. ??on 11/20/2020 10:34 AM . Narrative 11/20/2020 10:34 AM CDT EXAMINATION: XR CHEST 1VW PORTABLE HISTORY: R47.01: Expressive aphasia COMPARISON: None. Procedure Note Eugenio Benítez MD - 11/20/2020 EXAMINATION: XR CHEST 1VW PORTABLE HISTORY: R47.01: Expressive aphasia COMPARISON: None. FINDINGS/IMPRESSION: The lungs are hypoinflated with associated bronchovascular crowding. Opacity seen in the left lower lung may represent atelectasis versus airspace disease; small left pleural effusion may be associated. Noright pleural effusion. No pneumothorax is seen. The cardiac silhouette is borderline enlarged. Evaluation of the mediastinum is limited by mild patient rotation to the left. No acute fractures are seen. Report drafted by Shamar Stapleton DO, MPH (cath lab radiology technician) Dr. EUGENIO Resendiz M.D. have personally reviewed and interpreted this examination/study. This report was electronically signed by EUGENIO BENÍTEZ M.D. on 11/20/2020 10:34 AM . Radha Haile MD DIAGNOSTIC IMAGING O RDERABLES * HEMOGLOBIN A1C (11/20/2020 6:00 AM CDT) Hemoglobin A1c 5.4 4.4 - 6.3 % 11/20/2020 10:21 AM CDT [facility] Estimated Average Glucose 108 mg/dL 11/20/2020 10:21 AM CDT [facility] Comment: HbA1c Interpretation: Treatment target values recommended by ADA and other clinical organizations should be used to evaluate metabolic control in patients. Treatment Target Values: Normal : < 5.7% Pre-diabetes: 5.7-6.4% Diabetes: Equal to or greater than 6.5% Reference: [place] [employer] Standards of Care in Diabetes -2014 In patients 70 years and older consider HbA1c target range of 7.0-7.5% Reference: ??Diabetes Mellitus in Older People: Position Statement on behalf of the International Association of Gerontology and Geriatrics (IAGG), the Diabetes Working Constitution Party for Older People (EDWPOP), and the International Task Force of Experts in Diabetes. ??Crispin Willams, et al. J [place] [employer]. 2012 Test results diagnostic of diabetes should be repeated for confirmation. The Sebia Capillary 2 assay for the measurement of HbA1c is a National Glycohemoglobin Standardization Program (NGSP)certified method. Blood BLOOD SPECIMEN / Unknown Venipuncture / Unknown 11/20/2020 6:00 AM CDT 11/20/2020 6:05 AM CDT Dann Mendoza MD LAB - CHEMISTRY HERNANDEZ SAL Performing Organization Address City/[facility]/ZIP Co de Phone Number [address] [address], [facility] [phone] * TYPE + SCREEN PANEL (11/20/2020 6:00 AM CDT) Antibody Screen NEG 6:49 AM CDT [facility] ABO Rh A POS 11/20/2020 6:49 AM CDT [facility] Blood Bank BLOOD SPECIMEN / Unknown Venipuncture / Unknown 11/20/2020 6:00 AM CDT 11/20/2020 6:09 AM CDT Sy Cordero MD LAB - BLOOD BAN K ORDERABLES [facility] [address] [place] [phone], [facility] [phone] * TROPONIN I (11/20/2020 6:00 AM CDT) Troponin I 0.013 <0.032 ng/mL 11/20/2020 6:36 AM CDT [facility] Blood BLOOD SPECIMEN / Unknown Venipuncture / Unknown 11/20/2020 6:00 AM CDT 11/20/2020 6:05 AM CDT Sy Cordero MD LAB - CHEMISTRY ORDERABLES Performing Organization Address [facility] Co de Phone Number [address] [address], [facility] [phone] * PT-INR [facility] (11/20/2020 6:00 AM CDT) PT 13.9 12.1 - 14.8 Seconds 11/20/2020 6:22 AM T [facility] INR 1.1 See Comment 11/20/2020 6:22 AM [facility] Comment:The suggested therap eutic range for standard coumadin (warfarin) therapy is an INR of 2.0-3.0. For high-risk patients (Mechanical Mitral Valve Prosthesis, etc.), the suggested prophylactic therapeutic range is an INR of 2.5-3.5. Blood BLOOD SPECIMEN / Unknown Venipuncture / Unknown 11/20/2020 6:00 AM CDT 11/20/2020 6:04 AM CDT Sy Cordero MD LAB - COAGULATI ON ORDERABLES Performing Organization Address [facility] Co de Phone Number [address] [address], [facility] [phone] * (ABNORMAL) COMPREHENSIVE METABOLIC PANEL (11/20/2020 6:00 AM CDT) BUN 29(H) 7 - 26 mg/dL 11/20/2020 6:31 AM T [facility] Creatinine 1.66(H) 0.71 - 1.16 mg/dL 11/20/2020 6:31 AM T [facility] Sodium 141 136 - 145 mmol/L 11/20/2020 6:31 AM T [facility] Potassium 4.2 3.5 - 4.5 mmol/L 11/20/2020 6:31 AM [facility] Chloride 101 98 - 107 mmol/L 11/20/2020 6:31 AM [facility] CO2 31(H) 22 - 29 mmol/L 11/20/2020 6:31 AM [facility] Glucose 88 70 - 115 mg/dL 11/20/2020 6:31 AM [facility] Calcium 8.6 8.4 - 10.2 mg/dL 11/20/2020 6:31 AM [facility] Protein Total 6.2 6.0 - 8.3 g/dL 11/20/2020 6:31 AM [facility] Albumin 2.7(L) 3.4 - 5.0 g/dL 11/20/2020 6:31 AM [facility] Bilirubin Total 0.5 0.2 - 1.2 mg/dL 11/20/2020 6:31 AM [facility] Alkaline Phosphatase 79 40 - 150 U/L 11/20/2020 6:31 AM [facility] ALT 16 5 - 55 U/L 11/20/2020 6:31 AM [facility] AST 20 5 - 34 U/L 11/20/2020 6:31 AM [facility] Anion Gap 13 8 - 18 11/20/2020 6:31 AM [facility] BUN/Creatinine Ratio 17 7 - 23 11/20/2020 6:31 AM [facility] Osmolality Calculated 297 270 - 300 mOsm/kg 11/20/2020 6:31 AM [facility] Albumin/Globulin Ratio 0.8(L) 1.1 - 2.3 11/20/2020 6:31 AM [facility] eGFR by CKD-EPI 45(L) >=90 mL/min/1.7 3 m2 11/20/2020 6:31 AM [facility] Blood BLOOD SPECIMEN / Unknown Venipuncture / Unknown 11/20/2020 6:00 AM T 11/20/2020 6:[address] [facility] Sy Cordero MD LAB - CHEMISTRY ORDERABLES [facility] [address] [address] [phone] * (ABNORMAL) CBC W AUTO DIFFERENTIAL (11/20/2020 6:00 AM CDT) [facility] WBC 11.0(H) 3.5 - 10.5 10? 3 /uL 11/20/2020 6:18 AM [facility] RBC 4.28(L) 4.30 - 5.70 10? 6 /uL 11/20/2020 6:18 AM [facility] Hemoglobin 12.9 12.0 - 17.6 g/dL 11/20/2020 6:18 AM [facility] Hematocrit 39.9 35.2 - 51.7 % 11/20/2020 6:18 AM [facility] MCV 93.2 80.7 - 98.3 fL 11/20/2020 6:18 AM [facility] MCH 30.1 26.7 - 34.0 pg 11/20/2020 6:18 AM [facility] MCHC 32.3 30.8 - 35.9 g/dL 11/20/2020 6:18 AM [facility] Platelet Count 219 150 - 400 10? 3 /uL 11/20/2020 6:18 AM [facility] RDW-SD 55.0(H) 36.0 - 50.0 fL 11/20/2020 6:18 AM [facility] RDW-CV 16.2(H) 11.2 - 14.8 % 11/20/2020 6:18 AM [facility] MPV 12.7 9.4 - 12.9 fL 11/20/2020 6:18 AM [facility] nRBC Absolute 0.00 0 10? 3 /uL 11/20/2020 6:18 AM [facility] nRBC Auto 0.0 0 /100 WBC 11/20/2020 6:18 AM [facility] Neutrophils % 56.1 35.0 - 70.0 % 11/20/2020 6:18 AM [facility] Lymphocytes % 30.9 20.0 - 43.0 % 11/20/2020 6:18 AM [facility] Monocytes % 7.6 5.0 - 13.0 % 11/20/2020 6:18 AM [facility] Eosinophils % 4.5 0.0 - 6.0 % 11/20/2020 6:18 AM [facility] Basophil % 0.5 0.0 - 2.0 % 11/20/2020 6:18 AM [facility] Neutrophils Absolute 6.2 1.6 - 7.0 10? 3 /uL 11/20/2020 6:18 AM [facility] Lymphocyte Absolute 3.4 1.1 - 3.9 10? 3 /uL 11/20/2020 6:18 AM [facility] Monocytes Absolute 0.84 0.26 - 1.07 10? 3 /uL 11/20/2020 6:18 AM [facility] Eosinophils Absolute 0.50(H) 0.00 - 0.47 10? 3 /uL 11/20/2020 6:18 AM [facility] Basophils Absolute 0.06 0.00 - 0.08 10? 3 /uL 11/20/2020 6:18 AM [facility] Immature Granulocytes % 0.4 0.0 - 1.0 % 11/20/2020 6:18 AM [facility] Immature Granulocytes Absolute 0.04 11/20/2020 6:18 AM [facility] Blood BLOOD SPECIMEN / Unknown Venipuncture / Unknown 11/20/2020 6:00 AM CDT 11/20/2020 6:05 AM CDT Sy Cordero MD LAB - HEMATOLOG Y ORDERABLES [facility] [address] [place] [address], [facility] [phone] * EKG 12-LEAD (11/20/2020 5:52 AM CDT) Ventricular Rate 70 BPM [facility] MUSE Atrial Rate 70 BPM [facility] P-R Interval 172 ms [facility] QRS Duration ms 116 ms [facility] Q-T Interval ms 440 ms [facility] QTC Calculation (Bezet) 475 ms [facility] M[facility] Calculated P [place] 70 degrees [facility] M[facility] Calculated R [place] 63 degrees [facility] Calculated T [place] 49 degrees [facility] Interpretation EKG NORMAL SINUS RHYTHM POSSIBLE LEFT ATRIAL ENLARGEMENT BORDERLINE ECG NO PREVIOUS ECGS AVAILABLE Confirmed by MD Michael, Kimberly ([id number]) on 11/21/2020 12:46:33 PM [facility] 11/20/2020 5:52 AM CDT 11/21/2020 12:46 PM CDT Narrative [facility] - 11/21/2020 12:46 PM CDT Luis Wylie MD ? 04/26/2022 ??4:12 AM [facility] REPORT: Patient name: Howie Delaney Patient : ??1965 Patient Age: [age] year old Indication: Palpitation Requesting provider: Dr. Darby Study Duration: 1 day 23 hours 52 minutes Summary: 1. ??Atrial ectopy / premature atrial complexes (PAC) ??- 196 PSVCs with a burden of 0.09 % with 3 couplet. 2. ??Ventricular ectopy / premature ventricular complexes (PVC) ??- 27 PVCs with a burden of 0.01 %, all as isolated PVCs. 3. ??No significant bradycardia or pauses occurred. 4. ??Atrial fibrillation/flutter was not detected Manually Triggered events: ??There were no manually triggered events. ?? Other tracings demonstrated sinus rhythm with rare atrial and ventricular ectopy. ?? Conclusion: No sustained arrhythmias. ?? The patient did have second degree AVN block (Mobitz type 1), lowest HR of 51 bpm. Sy Cordero MD ECG ORDERABLES [facility] * CT ANGIO BRAIN NECK STROKE (11/20/2020 [...] AM. Dann Mendoza MD CT ORDERABLES * CREATININE - POCT INTERFACED (11/20/2020 5:47 AM CDT) [facility] Creatinine POCT 0.99 0.30 - 1.30 mg/dL 11/20/2020 6:09 AM CDT [facility] eGFR >60 >60 mL/min/1.7 3 m2 11/20/2020 6:09 AM CDT [facility] Blood BLOOD SPECIMEN / Unknown 11/20/2020 5:47 AM CDT 11/20/2020 6:09 AM CDT Provider Unknown LAB - POINT OF CARE ORDERABLES [address] [id number], [facility] [phone] * INR WHOLE BLOOD - POINT OF CARE (IP) STROKE (11/20/2020 5:47 AM CDT) Blood BLOOD SPECIMEN / Unknown 11/20/2020 5:47 AM CDT 11/20/2020 5:59 AM CDT Provider Unknown LAB - POINT OF CARE ORDERABLES [address] [id number], [facility] [phone] * CT BRAIN - Stroke (11/20/2020 5:45 [...] 7:45 AM. Sy Cordero MD CT ORDERABLES documented in this encounter Visit Diagnoses Diagnosis Expressive aphasia- Primary Aphasia Acute pain of right knee Cerebrovascular accident (CVA) due to occlusion of cerebral artery (HCC) Closed fracture of proximal end of right fibula, unspecified fracture morphology, initial encounter Acute pain of right knee documented in this encounter Administered Medications Inactive Administered Medications - up to 3 most recent administrations Medication Order MAR Action Action Date Dose Rate Site *Hold/Avoid Medication DIRECTED, Starting on Sushila 11/20/20 at 0805, Until Tue11/21/20 at 1840, Medications to be held/avoided: NO ANTICOAGULANTS OR ANTIPLATELET AGENTS. *Hold/Avoid Medication EVERY 12 HOURS (08 and 20), First dose on Tue11/20/20 at 0815, Until Discontinued, Please place medication(s) named below on MAR hold. See Tip Sheet for instructions. 0.9% NaCl infusion at 50 mL/hr, Intravenous, CONTINUOUS, Starting on Tue11/20/20 at 0845, Until Tue11/21/20 at 1840, .. Right AC preferred site. 0.9% NaCl injection 1-10 mL 1-10 mL, Intracatheter, PRN, Other, peripheral line flush, Starting on Tue11/20/20 at 0533, Until Tue11/21/20 at 1840, Flush peripheral IV catheter with 1-10 mL of normal saline before and after medications and prn to clear blood from the line or to verify patency. 0.9% NaCl injection 10 mL 10 mL, Intracatheter, INTRA-PROCEDURE MULTIPLE, Starting on Tue11/20/20 at 1515, Until Tue11/20/20 at 1914, For Echo Procedure - Per Protocol Agitate saline before administration. $ Given 11/20/2020 3:36 PM CDT 10 mL $ Given 11/20/2020 3:35 PM CDT 10 mL 0.9% NaCl injection 3 mL 3 mL, Intracatheter, EVERY 8 HOURS, First dose on Tue11/20/20 at 0615, Until Discontinued, Flush peripheral IV catheter with 3 mL of normal saline every 8 hours. $ Given 11/21/2020 1:50 PM CDT 3 mL $ Given 11/20/2020 2:00 PM CDT 3 mL $ Given 11/20/2020 10:10 AM CDT 3 mL 0.9% NaCl injection 3 mL 3 mL, Intracatheter, EVERY 8 HOURS, First dose on Tue11/20/20 at 0845, Until Discontinued $ Given 11/21/2020 1:50 PM CDT 3 mL $ Given 11/20/2020 10:02 PM CDT 3 mL $ Given 11/20/2020 2:00 PM CDT 3 mL 0.9% NaCl injection 3 mL 3 mL, Intracatheter, PRN, Other, peripheral line flush, Starting on Sushila 11/20/20 at 0805, Until Tue11/21/20 at 1840, Flush after each use and blood draws. $ Given 11/20/2020 10:03 PM CDT 3 mL 0.9% NaCl IV bolus 1,000 mL, at 983.61 mL/hr, Administer over 61 Minutes, ONCE, 1 dose, On Tue11/20/20 at 0845 $ New Bag/Syringe 11/20/2020 11:40 AM CDT 1,000 mL 983.61 mL/hr acetaminophen (Tylenol) tablet 650 mg 650 mg, Oral, EVERY 4 HOURS PRN, Fever, Mild Pain, Starting on Sushila 11/20/20 at 2228, Until Tue11/21/20 at 1840 $ Given 11/21/2020 1:52 PM CDT 650 mg $ Given 11/20/2020 11:14 PM CDT 650 mg fentaNYL (PF) (Sublimaze) injection 50 mcg 50 mcg, Intravenous, ONCE, 1 dose, On Tue11/20/20 at 1300 $ Given 11/20/2020 1:01 PM CDT 50 mcg fentaNYL (PF) (Sublimaze) injection 50 mcg 50 mcg, Intravenous, NOW, 1 dose, On Tue11/20/20 at 1330 $ Given 11/20/2020 1:44 PM CDT 50 mcg hydrALAZINE (Apresoline) injection 10 mg 10 mg, Intravenous, EVERY 20 MIN PRN, Hypertension, SBP > 220, Starting on Sushila 11/20/20 at 0813, Until Tue11/21/20 at 1840, Over 1-2 minutes until target BP is reached. Use if labetalol is ineffective or patient meets exclusion criteria for labetalol. iopamidol (Isovue 370) 76 % contrast Intravenous, CONTRAST ONCE, Starting on Sushila 11/20/20 at 0547, Until Tue11/21/20 at 1840 $ Given - Contrast 11/20/2020 5:48 AM CDT 100 mL labetalol (Normodyne; Trandate) injection 10 mg 10 mg, Intravenous, EVERY 15 MIN PRN, Hypertension, SBP > 220, Starting on Sushila 11/20/20 at 0813, Until Tue11/21/20 at 1840, IVP over 1-2 minutes until target blood pressure goal is reached. If BP out of goal range after 2 doses may use alternative agent or contact physician. Cumulative dose not to exceed 300 mg/24 hrs. Exclusion criteria for Labetolol: Asthma, Cardiac Failure, Heart Block, Heart rate less than 60, or Severe Cardiac Abnormalites. metoclopramide (Reglan) injection 5 mg 5 mg, Intravenous, EVERY 6 HOURS PRN, Nausea/Vomiting, Starting on Sushila 11/20/20 at 0815, Until Tue11/21/20 at 1840, If no relief from ondansetron (ZOFRAN), use metoclopramide (REGLAN) in addition to ondansetron. metoclopramide (Reglan) injection 5 mg 5 mg, Intramuscular, EVERY 6 HOURS PRN, Nausea/Vomiting, Starting on Sushila 11/20/20 at 0815, Until Tue11/21/20 at 1840, If no relief from ondansetron (ZOFRAN), use metoclopramide (REGLAN) in addition to ondansetron. Use IM route if IV is unavailable. ondansetron (disintegrating) (Zofran ODT) tablet 4 mg 4 mg, Oral, EVERY 6 HOURS PRN, Nausea/Vomiting, Starting on Sushila 11/20/20 at 0815, Until Tue11/21/20 at 1840, Dissolved orally on tongue Dissolved orally on tongue ondansetron (Zofran) injection 4 mg 4 mg, Intravenous, EVERY 6 HOURS PRN, Nausea/Vomiting, Starting on Sushila 11/20/20 at 0815, Until Tue11/21/20 at 1840, Administer IV if patient is NPO, actively vomiting, or unable to swallow. perflutren Lipid Microsphere (Definity) injection SUSP 0.5 mL 0.5 mL, Intravenous, INTRA-PROCEDURE MULTIPLE, 6 doses, Starting on Sushila 11/20/20 at 1515, Until Tue11/21/20 at 1840, For Echo Procedure - Per Protocol Give slowly Shake well before using. $ Given 11/20/2020 3:36 PM CDT 0.5 mL polyethylene glycol 3350 (Miralax) packet 17 g 17 g, Oral, DAILY PRN, Constipation, Starting on Tue11/20/20 at 0815, Until Tue11/21/20 at 1840, Mix in 8 ounces of water, juice, soda, coffee or tea prior to administration documented in this encounter Active and Recently Administered Medications Times are shown in CDT. Scheduled Medication Order 11/19/2020 11/20/2020 11/21/2020 *Hold/Avoid Medication DIRECTED, Starting on Sushila 11/20/20 at 0805, Until Tue11/21/20 at 1840, Medications to be held/avoided: NO ANTICOAGULANTS OR ANTIPLATELET AGENTS. *Hold/Avoid Medication EVERY 12 HOURS (08 and 20), First dose on Sushila 11/20/20 at 0815, Until Discontinued, Please place medication(s) named below on MAR hold. See Tip Sheet for instructions. 0815 (Due)2202 (*Reviewed - Provider: Marta Peraza RN) 1200 (Held - Provider: Pricilla Su RN - Reason: Procedural Hold) 0.9% NaCl injection 10 mL () 10 mL, Intracatheter, INTRA-PROCEDURE MULTIPLE, Starting on Sushila 11/20/20 at 1515, Until Sushila 11/20/20 at 1914, For Echo Procedure - Per Protocol Agitate saline before administration. 1535 ($ Given - Provider: Rachelle Mckenna RDCS)1536 ($ Given - Provider: Rachelle Mckenna RDCS) 0.9% NaCl injection 3 mL(Linked Group 1) 3 mL, Intracatheter, EVERY 8 HOURS, First dose on Sushila 11/20/20 at 0615, Until Discontinued, Flush peripheral IV catheter with 3 mL of normal saline every 8 hours. 1010 ($ Given - Provider: Audra Solis RN)1400 ($ Given - Provider: Audra Solis RN)2203 (Canceled Entry - Provider: Marta Peraza RN) 0635 (Not Administered - Provider: Marta Peraza RN - Reason: Patient sleeping)1350 ($ Given - Provider: Pricilla Su RN) 0.9% NaCl injection 3 mL(Linked Group 2) 3 mL, Intracatheter, EVERY 8 HOURS, First dose on Sushila 11/20/20 at 0845, Until Discontinued 1003 ($ Given - Provider: Audra Solis RN)1400 ($ Given - Provider: Audra Solis RN)2202 ($ Given - Provider: Marta Peraza, AVA) 0635 (Not Administered - Provider: Marta Peraza RN - Reason: Patient sleeping)1350 ($ Given - Provider: Pricilla Su RN) 0.9% NaCl IV bolus (COMPLETED) 1,000 mL, at 983.61 mL/hr, Administer over 61 Minutes, ONCE, 1 dose, On Sushila 11/20/20 at 0845 1140 ($ New Bag/Syringe - Provider: Audra Solis RN)1808 (Stopped - Provider: Audra Solis RN) fentaNYL (PF) (Sublimaze) injection 50 mcg (COMPLETED) 50 mcg, Intravenous, ONCE, 1 dose, On Sushila 11/20/20 at 1300 1301 ($ Given - Provider: Yamila Bettencourt RN) fentaNYL (PF) (Sublimaze) injection 50 mcg (COMPLETED) 50 mcg, Intravenous, NOW, 1 dose, On Sushila 11/20/20 at 1330 1344 ($ Given - Provider: Audra Solis RN) iopamidol (Isovue 370) 76 % contrast Intravenous, CONTRAST ONCE, Starting on Sushila 11/20/20 at 0547, Until Tue11/21/20 at 1840 0548 ($ Given - Contrast - Provider: Roland Pearson, RT(R)CT) perflutren Lipid Microsphere (Definity) injection SUSP 0.5 mL 0.5 mL, Intravenous, INTRA-PROCEDURE MULTIPLE, 6 doses, Starting on Sushila 11/20/20 at 1515, Until Tue11/21/20 at 1840, For Echo Procedure - Per Protocol Give slowly Shake well before using. 1536 ($ Given - Provider: Rachelle Mckenna [facility]) Continuous Medication Order 11/19/2020 11/20/2020 11/21/2020 0.9% NaCl infusion at 50 mL/hr, Intravenous, CONTINUOUS, Starting on Sushila 11/20/20 at 0845, Until Tue11/21/20 at 1840, .. Right AC preferred site. 0845 (Due) PRN Medication Order 11/19/2020 11/20/2020 11/21/2020 0.9% NaCl injection 1-10 mL(Linked Group 1) 1-10 mL, Intracatheter, PRN, Other, peripheral line flush, Starting on Tue11/20/20 at 0533, Until Tue11/21/20 at 1840, Flush peripheral IV catheter with 1-10 mL of normal saline before and after medications and prn to clear blood from the line or to verify patency. 0.9% NaCl injection 3 mL(Linked Group 2) 3 mL, Intracatheter, PRN, Other, peripheral line flush, Starting on Tue11/20/20 at 0805, Until Tue11/21/20 at 1840, Flush after each use and blood draws. 2203 ($ Given - Provider: Marta Peraza, AVA) acetaminophen (Tylenol) tablet 650 mg 650 mg, Oral, EVERY 4 HOURS PRN, Fever, Mild Pain, Starting on Tue11/20/20 at 2228, Until Tue11/21/20 at 1840 2314 ($ Given - Provider: Marta Peraza, AVA) 1352 ($ Given - Provider: Pricilla Su RN) hydrALAZINE (Apresoline) injection 10 mg(Linked Group 3) 10 mg, Intravenous, EVERY 20 MIN PRN, Hypertension, SBP > 220, Starting on Tue11/20/20 at 0813, Until Tue11/21/20 at 1840, Over 1-2 minutes until target BP is reached. Use if labetalol is ineffective or patient meets exclusion criteria for labetalol. labetalol (Normodyne; Trandate) injection 10 mg(Linked Group 3) 10 mg, Intravenous, EVERY 15 MIN PRN, Hypertension, SBP > 220, Starting on Tue11/20/20 at 0813, Until Tue11/21/20 at 1840, IVP over 1-2 minutes until target blood pressure goal is reached. If BP out of goal range after 2 doses may use alternative agent or contact physician. Cumulative dose not to exceed 300 mg/24 hrs. Exclusion criteria for Labetolol: Asthma, Cardiac Failure, Heart Block, Heart rate less than 60, or Severe Cardiac Abnormalites. metoclopramide (Reglan) injection 5 mg 5 mg, Intravenous, EVERY 6 HOURS PRN, Nausea/Vomiting, Starting on Tue11/20/20 at 0815, Until Tue11/21/20 at 1840, If no relief from ondansetron (ZOFRAN), use metoclopramide (REGLAN) in addition to ondansetron. metoclopramide (Reglan) injection 5 mg 5 mg, Intramuscular, EVERY 6 HOURS PRN, Nausea/Vomiting, Starting on Tue11/20/20 at 0815, Until Tue11/21/20 at 1840, If no relief from ondansetron (ZOFRAN), use metoclopramide (REGLAN) in addition to ondansetron. Use IM route if IV is unavailable. ondansetron (disintegrating) (Zofran ODT) tablet 4 mg 4 mg, Oral, EVERY 6 HOURS PRN, Nausea/Vomiting, Starting on Tue11/20/20 at 0815, Until Tue11/21/20 at 1840, Dissolved orally on tongue Dissolved orally on tongue ondansetron (Zofran) injection 4 mg 4 mg, Intravenous, EVERY 6 HOURS PRN, Nausea/Vomiting, Starting on Tue11/20/20 at 0815, Until Tue11/21/20 at 1840, Administer IV if patient is NPO, actively vomiting, or unable to swallow. polyethylene glycol 3350 (Miralax) packet 17 g 17 g, Oral, DAILY PRN, Constipation, Starting on Tue11/20/20 at 0815, Until Tue11/21/20 at 1840, Mix in 8 ounces of water, juice, soda, coffee or tea prior to administration Linked Groups Order Group 1: SALINE LOCK, INSERT AND MAINTAIN (CANCELED) Routine, CONTINUOUS, Starting on Tue11/20/20 at 0545, Until Specified, New collection, Task Completed: Yes And 0.9% NaCl injection 3 mLJump to med 3 mL, Intracatheter, EVERY 8 HOURS, First dose on Tue11/20/20 at 0615, Until Discontinued, Flush peripheral IV catheter with 3 mL of normal saline every 8 hours. And 0.9% NaCl injection 1-10 mLJump to med 1-10 mL, Intracatheter, PRN, Other, peripheral line flush, Starting on Tue11/20/20 at 0533, Until Tue11/21/20 at 1840, Flush peripheral IV catheter with 1-10 mL of normal saline before and after medications and prn to clear blood from the line or to verify patency. Group 2: SALINE LOCK, INSERT AND MAINTAIN (CANCELED) Routine, CONTINUOUS, Starting on Sushila 11/20/20 at 0815, Until Specified, IN OPPOSITE ARM., New collection And 0.9% NaCl injection 3 mLJump to med 3 mL, Intracatheter, EVERY 8 HOURS, First dose on Sushila 11/20/20 at 0845, Until Discontinued And 0.9% NaCl injection 3 mLJump to med 3 mL, Intracatheter, PRN, Other, peripheral line flush, Starting on Tue11/20/20 at 0805, Until Tue11/21/20 at 1840, Flush after each use and blood draws. Group 3: labetalol (Normodyne; Trandate) injection 10 mgJump to med 10 mg, Intravenous, EVERY 15 MIN PRN, Hypertension, SBP > 220, Starting on Sushila 11/20/20 at 0813, Until Tue11/21/20 at 1840, IVP over 1-2 minutes until target blood pressure goal is reached. If BP out of goal range after 2 doses may use alternative agent or contact physician. Cumulative dose not to exceed 300 mg/24 hrs. Exclusion criteria for Labetolol: Asthma, Cardiac Failure, Heart Block, Heart rate less than 60, or Severe Cardiac Abnormalites. Or hydrALAZINE (Apresoline) injection 10 mgJump to med 10 mg, Intravenous, EVERY 20 MIN PRN, Hypertension, SBP > 220, Starting on Sushila 11/20/20 at 0813, Until Tue11/21/20 at 1840, Over 1-2 minutes until target BP is reached. Use if labetalol is ineffective or patient meets exclusion criteria for labetalol. documented in this encounter Care Teams Cushion Spring Assembler Relationship Specialty Start Date End Date Natasha Bates PA-C [address] [place] [phone] PCP - General 03/21/19 06/20/23 documented as of this encounter
--- OUTSIDE RECORDS SUMMARY | 2024-05-22 05:41 | XMS_ITS | Encounter Summary ---
Author Organization [facility] Health Address [address] [facility] [address] Care Team Providers Care Boarder Steam Name Role Phone Natasha Bates PA-C Primary Care Provider + Encounter Details Date Type Department Care Team (Late st Contact Info) Description 02/18/2021 Orders Only [facility] - Nephrology [address] [place] [address], [place] [address] Gerardo Zavala MD [address] [place] [address] [place] [phone] Social History Tobacco Use Types Packs/Day Years [...] on filedocumented in this encounter Care Teams Boarder Steam Relationship Specialty Start Date End Date Natasha Bates PA-C [address] [place] [phone] PCP - General 03/21/19 06/20/23 documented as of this encounter
--- OUTSIDE RECORDS SUMMARY | 2024-05-22 05:41 | XMS_ITS | Encounter Summary ---
Author Organization [facility] Health Address [address] [facility] [place] [address] Care Team Providers Care Quality Systems Engineer Name Role Phone Natasha Bates PA-C Primary Care Provider + Reason for Visit * Reason Onset Date Comments Follow-up 06/12/2021 Encounter Details Date Type Department Care Team (Late st Contact Info) Description 06/12/2021 Telephone [facility] - Nephrology [facility] [place] [address] Letitia Vidal RN Follow-up Social [...] Notes * Telephone Encounter - Letitia Vidal, AVA - 06/12/2021 2:40 PM CST Spoke with pt. Scheduled appointment with Dr. Camacho Oneal 07/18/21 at 1230 pm. Pt instructed to bring discharge information from [facility] to clinic visit. Pt verbalized understanding. Pt had no concerns/questions at end to telephone conversation. GER WEB documented in this encounter Plan of Treatment [...] on filedocumented in this encounter Care Teams Quality Systems Engineer Relationship Specialty Start Date End Date Natasha Bates PA-C [address] [place] [phone] PCP - General 03/21/19 06/20/23 documented as of this encounter
--- OUTSIDE RECORDS SUMMARY | 2024-05-22 05:41 | XMS_ITS | Encounter Summary ---
Author Organization [facility] Health Address [address] [facility] [place] [address] Care Team Providers Care High School Guidance Counselor Name Role Phone Puneet Hughes MD Primary Care Provider [phone] Reason for Visit * Reason Onset Date Comments Pre-op Instructions 06/21/2023 Updates for cardiac cath instructions Encounter Details Date Type Department Care Team (Late st Contact Info) Description 06/21/2023 Telephone [facility] - Cardiology [address] [facility] [address] [place] [address] Cassia Crespo RN Pre-op Instructions (Updates for cardiac cath instructions) Social History Tobacco Use Types Packs/Day Years [...] on filedocumented in this encounter Care Teams High School Guidance Counselor Relationship Specialty Start Date End Date Puneet Hughes MD PCP - General Internal Medicine 06/21/23 documented as of this encounter
--- OUTSIDE RECORDS SUMMARY | 2024-05-22 05:41 | XMS_ITS | Encounter Summary ---
Author Organization [facility] Health Address [address] [facility] [place] [address] Care Team Providers Care Training Project Manager Name Role Phone Natasha Bates PA-C Primary Care Provider + Reason for Visit * Reason Onset Date Comments Follow-up 08/25/2020 Encounter Details Date Type Department Care Team (Late st Contact Info) Description 08/25/2020 Telephone [facility] [address] [facility] [address] [place], [place] [id number] Rajni Webb RN Follow-up Social History Tobacco Use Types [...] No 02/02/2020 documented as of this encounter Miscellaneous Notes * Telephone Encounter - Rajni Webb RN - 08/25/2020 9:03 AM CDT Pt called and left vm message Tuesday that he has lost 40 lbs after gastric sleeve and now with low b/p.pt states that proof machine operator asked him to review with cardiology. Called pt back and left vm message x 2-please call office appt made to tele health visit for today @ 3 pm with Berenice Plaza ANP-per 08/20/2020 nephrology note: I reviewed his labs performed two days [...] to 30 mg. 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 - Ordered renal function panel in a week. - Patient was informed about orthostatic hypotension and recommendation to avoid fall. Pt called back-aware of telehealth visit this afternoon @ 3 pm today documented in this encounter Plan of Treatment Not on file documented as of this encounter Visit Diagnoses Not on filedocumented in this encounter Care Teams Training Project Manager Relationship Specialty Start Date End Date Natasha Bates PA-C [address] [place] [phone] PCP - General 03/21/19 06/20/23 documented as of this encounter
--- OUTSIDE RECORDS SUMMARY | 2024-05-22 05:41 | XMS_ITS | Encounter Summary ---
Author Organization [facility] Health Address [address] [place] [address] Care Team Providers Care Custom Garment Designer Name Role Phone Natasha Bates PA-C Primary Care Provider + Encounter Details Date Type Department Care Team (Late st Contact Info) Description 07/29/2021 Orders Only [facility] - Nephrology [address] [place] [address], [place] [address] Gerardo Zavala MD [address] [place] [address] [place] [phone] Chronic kidney disease, stage 3b (HCC); Proteinuria, unspecified type; Hyperkalemia Social History Tobacco Use Types Packs/Day Years [...] as of this encounter Plan of Treatment Scheduled Orders Name Type Priority Associated Diagnoses Orde r Schedule PROTEIN CREATININE RATIO URINE RANDOM PNL Lab Routine Chronic kidney disease, stage 3b (HCC) Proteinuria, unspecified type Hyperkalemia Ordered: 07/29/2021 URINALYSIS REFLEX TO MICROSCOPIC NO CULTURE Lab Routine Chronic kidney disease, stage 3b (HCC) Proteinuria, unspecified type Hyperkalemia Ordered: 07/29/2021 CBC WITH DIFFERENTIAL Lab Routine Chronic kidney disease, stage 3b (HCC) Proteinuria, unspecified type Hyperkalemia Ordered: 07/29/2021 RENAL FUNCTION PANEL Lab Routine Chronic kidney disease, stage 3b (HCC) Proteinuria, unspecified type Hyperkalemia Ordered: 07/29/2021 documented as of this encounter Goals Goal [...] as of this encounter Visit Diagnoses Diagnosis Chronic kidney disease, stage 3b (HCC) Proteinuria, unspecified type Hyperkalemia Hyperpotassemia documented in this encounter Care Teams Custom Garment Designer Relationship Specialty Start Date End Date Natasha Bates PA-C [address] [place] [phone] PCP - General 03/21/19 06/20/23 documented as of this encounter
--- OUTSIDE RECORDS SUMMARY | 2024-05-22 05:41 | XMS_ITS | Encounter Summary ---
Author Organization [facility] Health Address [address] [facility] [place] [address] Care Team Providers Care Wheel Cutter Name Role Phone Natasha Bates PA-C Primary Care Provider + Reason for Visit * Reason Onset Date Comments LABS ONLY 11/13/2020 Encounter Details Date Type Department Care Team (Late st Contact Info) Description 11/13/2020 Telephone [facility] - [address] [phone] Tenisha Cross, AVA LABS ONLY Social History Tobacco Use Types Packs/Day Years [...] Telephone Encounter - Tenisha Cross RN - 11/13/2020 10:03 AM CDT Patient called triage regarding upcoming appointment with Dr. Camacho Oneal on 11/19. He plans to goto [facility] for these & he is inquiring if he can have full work up including A1C as patient has lost 70 lbs. Patient plans to go to [facility] tomorrow or Tuesday. documented in this encounter Plan of Treatment Not on file documented as of this encounter Visit Diagnoses Not on filedocumented in this encounter Care Teams Wheel Cutter Relationship Specialty Start Date End Date Natasha Bates PA-C [address] [place] [phone] PCP - General 03/21/19 06/20/23 documented as of this encounter
--- OUTSIDE RECORDS SUMMARY | 2024-05-22 05:41 | XMS_ITS | Encounter Summary ---
Author Organization [facility] Health Address [address] [facility] [place] [address] Care Team Providers Care Extruder Operator Name Role Phone Natasha Bates PA-C Primary Care Provider + Encounter Details Date Type Department Care Team (Late st Contact Info) Description 12/05/2020 Orders Only [facility] - Orthopedics [address] [place] [address], [place] [address] Tito Crowe MD [address] [place] [address] [place] [address] Closed fracture of proximal end of right fibula, unspecified fracture morphology, initial encounter Social History Tobacco Use Types Packs/Day [...] documented as of this encounter Results * XR TIBIA FIBULA RIGHT 2VW (12/22/2020 9:46 AM CDT) Anatomical Region Laterality Modality Lower Extremity Radiographic Maribel ging 12/22/2020 2:24 PM CDT Impressions 12/22/2020 7:55 PM CDT IMPRESSION: Healing changes of fibular head fracture. Dictated by Flaquito Hernandez MD (president sales and marketing). Dr. KODAK Resendiz have personally reviewed and [...] head fracture. Dictated by Flaquito Hernandez MD (president sales and marketing). Dr. KODAK Resendiz have personally reviewed and interpreted this examination/study. This report was electronically signed by KODAK HIDALGO on 17:55 PM . Tito Crowe MD DIAGNOSTIC IMAGING ORDERABLES documented in this encounter Visit Diagnoses Diagnosis Closed fracture of proximal end of right fibula, unspecified fracture morphology, initial encounter- Primary Closed fracture of proximal end of right fibula, unspecified fracture morphology, initial encounter documented in this encounter Care Teams Extruder Operator Relationship Specialty Start Date End Date Natasha Bates PA-C [address] [place] [phone] PCP - General 03/21/19 06/20/23 documented as of this encounter
--- OUTSIDE RECORDS SUMMARY | 2024-05-22 05:41 | XMS_ITS | Encounter Summary ---
Author Organization [facility] Address [address] [place] [address] Care Team Providers Care [place] Marshal Name Role Phone Puneet Hughes MD Primary Care Provider [phone] Reason for Referral * Cardiac (Routine) - Closed Specialty Diagnoses / Procedures Referred By Contac t Referred To Contact Cardiology Diagnoses Chest pain, unspecified type Procedures ECHO TRANSTHORACIC AK TTE W/DOPPLER, COMPLETE AK TTE W/O DOPPLER, COMPLETE Kaylynn Hopkins MD [address] [address] Referral ID Status Reason Start Date Expiration Date Visits Re quested Visits Authorized [id number] Closed 06/22/2023 08/20/2023 1 1 VISION NEWS VIDEO EDITOR * OP/Amb RFL Auth (Routine) - Closed Specialty Diagnoses / Procedures Referred By Contac t Referred To Contact Cardiology Diagnoses Palpitations Procedures EKG 12-LEAD Kaylynn Hopkins MD [address] [address] [facility] [address] [facility] [place] [address] Referral ID Status Reason Start Date Expiration Date Visits Re quested Visits Authorized [id number] Closed 06/21/2023 06/20/2024 1 1 VISION NEWS VIDEO EDITOR Reason for Visit * Reason Comments Annual Follow-Up Encounter Details Date Type Department Care Team (Late st Contact Info) Description 06/21/2023 2:00 PM TELEVISION NEWS VIDEO EDITOR Office Visit [facility] - Cardiology [address] [facility] [place] [address] Kaylynn Hopkins MD [id number] [place] [address] Palpitations (Primary Dx); Mixed hyperlipidemia; Chest pain, unspecified type; Essential hypertension Social History Tobacco Use Types [...] Taken Comments Blood Pressure - - Pulse 69 06/21/2023 2:02 PM TELEVISION NEWS VIDEO EDITOR Temperature - - Respiratory Rate - - Oxygen Saturation 95% 06/21/2023 2:02 PM TELEVISION NEWS VIDEO EDITOR Inhaled Oxygen Concentration - - Weight 122.9 kg (271 lb) 06/21/2023 2:02 PM TELEVISION NEWS VIDEO EDITOR Height 185.4 cm (6' 1 ) 06/21/2023 2:02 PM TELEVISION NEWS VIDEO EDITOR Body Mass Index 35.75 06/21/2023 2:02 PM TELEVISION NEWS VIDEO EDITOR documented in this encounter Functional Status Functional [...] this encounter Patient Instructions * Patient Instructions* Cassia Crespo, RN - 06/21/2023 2:52 PM TELEVISION NEWS VIDEO EDITOR Please start Aspirin daily. Please start Metoprolol daily. Please try Nitroglycerin as needed. Please obtain blood work at [facility] We will obtain echo (ultrasound of your heart). They will call you to schedule. To schedule echocardiogram at the hospital, call [phone] We will obtain cardiac catheterization They will call you to schedule. If symptoms worsen, please go to ER. I look forward to seeing you back in clinic in 1 months. = You have been scheduled for a cardiac cath in the [facility] at [facility] on 23 June at [address] [facility] is located at [address] [place] [address], turn in at the Main Entrance or you can enter by going west on [facility]. You may park on the Bertie side of garage directly across from the Hospital. Parking tickets will not print until after 5:30am. Press help button on parking meter if not open. Please bring your parking ticket with you for validation. Take elevator to Level 1, exit the elevator to your right and walk straight down the hallway to [facility] desk then the [employer] unge. During the hours of 8-8:30, visitors will also need to check in at the [facility]. Please arrive to the [facility] on First Level at [facility] by 1000 (two hours before start time). The doors will be locked prior 5:30 am. Before your surgery, you can expect to have an IV catheter placed, blood drawn, and vital signs measured. You will also clean your skin with a surgical soap and change into a hospital gown. You can expect to store your belongings in a small locker while in the confectionery laboratory manager. After sedation, you can expect to spend a few hours being monitored while you wake up. Visitors are not allowed in therecovery area during this monitoring period. If groin access was used, you can expect to lay flat for 4-6 hours. Please contact the office with any questions you may have prior to your procedure at [phone]. To schedule / re-schedule a procedure, call [phone] If you have questions for the hospital on the day of procedure call [phone] DO NOT eat any solid food after midnight the night before surgery including gum, cough drops, candy. You may have CLEAR LIQUIDS UNTIL: 1000 (2 HOURS PRIOR TO YOUR SCHEDULED START TIME) (Examples: Water, clear fruit juice (no pulp, no orange juice, vegetable juice), Gatorade, clear soda such as Sprite or 7-up (No radha or root beer), fruit flavored carbonated beverages, coffee or tea (no cream, milk or sugar), fat-free broth. This does NOT include alcoholic beverages Bring a list of your current medications. Please bring an overnight bag in case you are admitted to the hospital following your procedure. Leave all valuables at home. Leave all home medications at home. If needed, the hospital will provide medications for you. If you are discharged the same day you will NOT be able to drive, please arrange for a ride home. Wear comfortable clothing that is loose fitting and not restrictive. Bring your insurance card and a photo ID. If you have an Advanced Directive please bring a copy with you. Medication instructions: Continue these medications: Aspirin 81mg Do not take these medications below: Lasix (furosemide): do not take morning of the procedure Continue all other medications as prescribed if not listed above. AVA Antony [phone] VISION NEWS VIDEO EDITOR documented in this encounter Progress Notes * Kaylynn Hopkins MD - 06/21/2023 8:14 PM CST [facility] CONSULTATION NOTE Howie Delaney Age: [age] year old Date of : 1965 Date: 06/21/2023 REASON FOR CONSULT: Chest pain REFERRING PROVIDER: Natasha Bates PA-C CHIEF COMPLAINT: Chest pain DIAGNOSES: -Heart failure with preserved LVEF -Hypertension -Morbid obesity status post gastric sleeve surgery 07/2020 -Hyperlipidemia -MIRELLA on CPAP HISTORY: It was my pleasure to see Mr. Howie Delaney in consultation at [facility]. He is a 57 year old years-old male with a history of above-mentioned issues. Presents today for chest pain. Started last week. Characteristic is pressure- like. Location is leftchest, radiating to shoulder. Associated with lightheadedness dizziness, nausea. Aggravated by emotional stress and physical activity. Alleviated by rest. Occurring multiple times daily. Lasting few m inutes. Went to [facility] ER on 06/19/2023 when high-sensitivity troponin was negative x 2. Left due to having to wait multiple multiple hours. Presents today for evaluation as such. Notably, in 2019 he has had similar symptoms and underwent cardiac catheterization. Coronary angiography demonstrated no obstructive CAD. The symptoms subsequently resolved after bariatric surgery and loss of weight. He did notice recently the symptomatic development is associated with him gaining a bout 20 pounds. At baseline he is physically active, able to work more than 10-hour days. Since last week, he has intentionally reduced work hours as a result. The patient denies shortness of breath, dyspnea of exertion, orthopnea, paroxysmal nocturnal dyspnea, lower extremity swelling, palpitations, syncope, presyncopal symptoms. PAST MEDICAL HISTORY: He has a past medical history of CKD (chronic kidney disease), HFrEF (heart failure with reduced ejection fraction) ([facility]), HLD (hyperlipidemia), HTN (hypertension), and MIRELLA (obstructive sleep apnea) (05/13/2019). PAST SURGICAL HISTORY: His has a past surgical history that includes bladder procedure/surgery and bariatric surgery, gastric. FAMILY HISTORY: His family history includes Other in his mother and nephew . He He indicated that the status of his mother is unknown. He indicated that the status of his nephew is unknown. SOCIAL HISTORY: He reports that he has never smoked. He has never used smokeless tobacco. He reports current alcohol use. He reports that he does not use drugs. ALLERGIES: Allergies Allergen Reactions ??? Aspirin Unknown hematuria HOME MEDICATIONS: Current Outpatient Medications Medication Sig Dispense Refill ??? acetaminophen (TYLENOL) 325 MG tablet Take 2 (two) tablets by mouth ??? allopurinol (ZYLOPRIM) 100 MG tablet ??? aspirin (Aspirin) 81 MG chew tablet Take 1 (one) tablet by mouth once daily 100 tablet 4 ??? atorvastatin (LIPITOR) 40 MG tablet every 24 hours ??? CALCIUM PO ??? Cyanocobalamin (B-12 PO) ??? furosemide (LASIX) 40 MG tablet Take 0.5 (one-half) tablet by mouth every other day as needed ??? gabapentin (NEURONTIN) 600 MG tablet ??? loratadine (Claritin) 10 MG tablet Take 1 (one) tablet by mouth once daily as directed. ??? metoprolol succinate XL 24hr (Toprol XL) 25 MG tablet TAKE 1 TABLET BY MOUTH EVERY DAY 90 tablet 0 ??? Multiple Vitamin (DAILY-RAKESH) TABS Take 1 tablet by mouth once daily ??? nitroGLYCERIN (Nitrostat) 0.4 MG tablet Dissolve 1 (one) tablet under the tongue every 5 minutes as needed for Angina 30 tablet 0 No current facility-administered medications for this visit. REVIEW OF SYSTEMS: All other systems negative except noted in HPI. PHYSICAL EXAM: Pulse 69 Ht 1.854 m (6' 1 ) Wt 122.9 kg (271 lb) SpO2 95% Estimated body mass index is 35.75 kg/m?? as calculated from the following: Height as of this encounter: 1.854 m (6' 1 ). Weight as of this encounter: 122.9 kg (271 lb). General appearance: Well developed, well nourished. No pain, distress. HEENT: Normocephalic. Neck: The thyroid is not enlarged and is symmetric, without tenderness, masses or nodules. Chest: Clear to auscultation bilaterally. Heart: regular rate and rhythm. S1, S2. No murmur, clicks, rubs or gallops. There is no jugular venous distension noted. Normal carotid upstrokes without bruits. Abdomen: Soft, non-tender. Normal appearance. Bowel sounds normal. Extremities: No cyanosis, ulcers. No edema. Musculoskeletal: Normal range of motion. Pulses: All pulses 2+ and symmetric. Skin: Skin color, texture, turgor normal. No rashes or lesions. Neuro: Awake, alert, oriented, no focal deficits. DATA REVIEWED: LABS: CBC: Recent Labs Component Name 06/19/23 1557 04/20/21 1324 11/21/20 0144 WBC 8.5 10.3 10.4 HGB 12.7* 13.6 13.1 HCT 39.6 41.9 39.3 MCV 89.2 98* 92.0 BMP: Recent Labs Component Name 06/19/23 1557 04/20/21 1324 04/01/21 1447 02/17/21 1149 11/21/20 0144 11/20/20 0600 NA 142 - - - 141 141 CL 106 - - - 103 101 CO2 28 27 28 - 31* 31* BUN 23 22 26* - 26 29* CREATININE 1.36* 1.33* 1.33* - 1.32* 1.66* CALCIUM 9.2 9.1 8.7 - 8.5 8.6 - = values in this interval not displayed. Lipid Panel: Recent Labs Component Name 11/20/20 1342 LDLCALC 49 HDL 34* ECG: I independently interpreted. Obtained 06/21/2023. Normal sinus rhythm. Left atrial enlargement.Nonspecific ST changes with less than [address] elevation seen in all leads, a finding present in prior EKG 02/2022. 2-D ECHO: 11/2020 Summary Technically difficult/suboptimal echocardiogram. Left ventricular systolic function is??hyperdynamic??with an ejection fraction of 75-80%. The left ventricular diastolic function is normal, consistent with normal left ventricle filling pressures. Normal??right ventricular systolic function.No significant valvular dysfuntion.?? Mild??pulmonary hypertension, estimated pulmonary??arterial systolic pressure is?? 37 mmHg. There is no evidence of ASD/PFO by color Doppler and bubble study interrogation.?? HEART CATHETERIZATION: I independently interpreted. 11/2019. Nonobstructive coronary arteries. I personally reviewed EKG, echo, cath from our archives. Impression: Palpitations (primary encounter diagnosis) Mixed hyperlipidemia Chest pain, unspecified type Essential hypertension Plan: Chest pain The history is very concerning. The characteristics, [...] metoprolol succinate, nitroglycerin as needed -Obtain echo LVH (left ventricular hypertrophy) due to hypertensive disease, with heart failure ([facility]) Repeat echo Mixed hyperlipidemia Continue atorvastatin Check lipid profile Essential hypertension Endorses blood pressure within goal at home. Adding metoprolol as mentioned. Patient Instructions Please start Aspirin daily. Please start Metoprolol daily. Please try Nitroglycerin as needed. Please obtain blood work at [facility] We will obtain echo (ultrasound of your heart). They will call you to schedule. To schedule echocardiogram at the hospital, call [phone] We will obtain cardiac catheterization They will call you to schedule. If symptoms worsen, please go to ER. I look forward to seeing you back in clinic in 1 months. = You have been scheduled for a cardiac cath in the [facility] at [facility] on 23 June at [address] [facility] is located at [address] [place] [address], turn in at the Main Entrance or you can enter by going west on [facility]. You may park on the Bertie side of garage directly across from the Hospital. Parking tickets will not print until after 5:30am. Press help button on parking meter if not open. Please bring your parking ticket with you for validation. Take elevator to Level 1, exit the elevator to your right and walk straight down the hallway to [facility] desk then the [employer]. During the hours of 8-8:30, visitors will also need to check in at the [employer]. Please arrive to the [facility] on First Level at [facility] by 1000 (two hours before start time). The doors will be locked prior 5:30 am. Before your surgery, you can expect to have an IV catheter placed, blood drawn, and vital signs measured. You will also clean your skin with a surgical soap and change into a hospital gown. You can expect to store your belongings in a small locker while in the confectionery laboratory manager. After sedation, you can expect to spend a few hours being monitored while you wake up. Visitors are not allowed in therecovery area during this monitoring period. If groin access was used, you can expect to lay flat for 4-6 hours. Please contact the office with any questions you may have prior to your procedure at [phone]. To schedule / re-schedule a procedure, call [phone] If you have questions for the hospital on the day of procedure call [phone] DO NOT eat any solid food after midnight the night before surgery including gum, cough drops, candy. You may have CLEAR LIQUIDS UNTIL: 1000 (2 HOURS PRIOR TO YOUR SCHEDULED START TIME) (Examples: Water, clear fruit juice (no pulp, no orange juice, vegetable juice), Gatorade, clear soda such as Sprite or 7-up (No radha or root beer), fruit flavored carbonated beverages, coffee or tea (no cream, milk or sugar), fat-free broth. This does NOT include alcoholic beverages Bring a list of your current medications. Please bring an overnight bag in case you are admitted to the hospital following your procedure. Leave all valuables at home. Leave all home medications at home. If needed, the hospital will provide medications for you. If you are discharged the same day you will NOT be able to drive, please arrange for a ride home. Wear comfortable clothing that is loose fitting and not restrictive. Bring your insurance card and a photo ID. If you have an Advanced Directive please bring a copy with you. Medication instructions: Continue these medications: Aspirin 81mg Do not take these medications below: Lasix (furosemide): do not take morning of the procedure Continue all other medications as prescribed if not listed above. AVA Antony [phone] DISPOSITION: We plan to see the patient back in clinic in 1 months' time, or sooner if issues arise. Thank you for your consultation and please do not hesitate to contact us with any question or concern. I appreciate the opportunity to participate in the care of your patients and look forward to being of service in the future as well. Kaylynn Hopkins MD, PhD Reagent Tenderhandle attacher Interventional Cardiology Division of Cardiology [facility] Pager: [phone] VISION NEWS VIDEO EDITOR documented in this encounter Plan of Treatment Scheduled Orders Name Type Priority Associated Diagnoses Orde r Schedule LIPID PROFILE Lab Routine Mixed hyperlipidemia 1 Occurrences starting 06/21/2023 until 07/15/2024 documented as of this encounter Goals Goal [...] Priority Date/Time Associated Diagnosis Comments EKG 12-LEAD Routine 06/21/2023 2:14 PM TELEVISION NEWS VIDEO EDITOR Palpitations documented in this encounter Results * ECHO COMPLETE (06/23/2023 10:27 AM TELEVISION NEWS VIDEO EDITOR) BSA 2.3344655 m2 [facility] CV FUJ I PACS LV [...] CV FUJ I PACS LV mass 2D 241.14235 [id number] 96 - 200 g SSM CV FUJI [...] TR pk bony 251.1 cm/s [facility] CV [facility] I PACS P vein A bony 24.0 cm/s SSM CV FUJI PACS P vein A duration 152 msec SS M CV FUJI PACS P vein S/D ratio 0.89 S[facility] CV FUJI PACS LVOT pk bony 1.11 m/s SSM CV F U PACS LVOT mn bony 0.71 m/s SSM [...] vol BP A-L 102.162 mL [facility] RVIDd 4.2 cm [facility] CV [facility] I PACS TV S' bony 16.584 cm/s [facility] CV [facility] I PACS TAPSE 2.656 1.7 cm [facility] CV [facility] I PACS AV mn grad 5 mmHg SSM CV FU JI PACS AV pk grad 8 mmHg SSM CV FU JI PACS AV mn bony 1.08 m/s S[facility] CV [facility] I PACS AV pk bony 1.43 m/s S[facility] CV [facility] I PACS AV VTI 35.614 cm [facility] CV [facility] I PACS LVOT pk grad 4.889 mmHg [facility] LVOT VTI 26.109 cm [facility] CV [facility] I PACS AV area cont VTI 3.0 cm2 S[facility] CV FUJI PACS AV area pk bony 3.1 cm2 SSM C V FUJI PACS AV Doppler bony index pk bony 0.772 [facility] Dimensionless Index 0.733 [facility] CV FUJI [...] 25 mmHg SSM CV FU JI PACS AK pk bony 94.839 cm/s SSM CV FUJ I PACS AK pk grad 3 mmHg SSM CV FU [...] Index 43 ml/m2 SSM CV FUJI PACS [id number] 8.639 cm SSM CV FUJ I PACS [id number] 8.318 cm SSM CV FUJ I PACS [...] Laterality Modality Ultrasound Narrative 06/23/2023 11:40 AM TELEVISION NEWS VIDEO EDITOR ?Concentric LV hypertrophy. Normal systolic function. EF [...] difficulties due to patient's body habitus. Kaylynn Hopkins MD ECHO CUPID * EKG 12-LEAD (06/21/2023 2:14 PM TELEVISION NEWS VIDEO EDITOR) Ventricular Rate 62 BPM [facility] Atrial Rate 62 BPM [facility] P-R Interval 148 ms [facility] QRS Duration ms 108 ms [facility] Q-T Interval ms 428 ms [facility] QTC Calculation (Bezet) 434 ms [facility] Calculated P [place] 30 degrees [facility] Calculated R [place] 34 degrees [facility] Calculated T [place] 32 degrees [facility] Interpretation EKG NORMAL SINUS RHYTHM POSSIBLE LEFT ATRIAL ENLARGEMENT BORDERLINE ECG NO PREVIOUS ECGS AVAILABLE Confirmed by KAYLYNN HOPKINS MD ([id number]) on 07/26/2023 2:25:34 PM KENNEDY LOPEZ 06/21/2023 2:14 PM TELEVISION NEWS VIDEO EDITOR 07/26/2023 2:25 PM TELEVISION NEWS VIDEO EDITOR Kaylynn Hopkins MD ECG ORDERABLES KENNEDY LOPEZ documented in this encounter Visit Diagnoses Diagnosis Palpitations- Primary Mixed hyperlipidemia Chest pain, unspecified type Essential hypertension Chest pain, unspecified type * Assessment & Plan Note - Kaylynn Hopikns MD - 06/21/2023 8:25 PM TELEVISION NEWS VIDEO EDITOR Associated Problem(s): Essential hypertension Endorses blood pressure within goal at home. Adding metoprolol as mentioned. VISION NEWS VIDEO EDITOR * Assessment & Plan Note - Kaylynn Hopkins MD - 06/21/2023 8:24 PM TELEVISION NEWS VIDEO EDITOR Associated Problem(s): Mixed hyperlipidemia Continue atorvastatin Check lipid profile VISION NEWS VIDEO EDITOR * Assessment & Plan Note - Kaylynn Hopkins MD - 06/21/2023 8:24 PM TELEVISION NEWS VIDEO EDITOR Associated Problem(s): LVH (left ventricular hypertrophy) due to hypertensive disease, with heart failure (HCC) Repeat echo VISION NEWS VIDEO EDITOR * Assessment & Plan Note - Kaylynn Hopkins MD - 06/21/2023 8:21 PM TELEVISION NEWS VIDEO EDITOR Associated Problem(s): Chest pain The history is very concerning. The characteristics, [...] metoprolol succinate, nitroglycerin as needed -Obtain echo VISION NEWS VIDEO EDITOR documented in this encounter Care Teams United [place] Marshal Relationship Specialty Start Date End Date Puneet Hughes MD PCP - General Internal Medicine 06/21/23 documented as of this encounter
--- OUTSIDE RECORDS SUMMARY | 2024-05-22 05:41 | XMS_ITS | Encounter Summary ---
Author Organization [facility] Address [address] [place] [address] Care Team Providers Care Sales And Marketing Coordinator Name Role Phone Natasha Bates PA-C Primary Care Provider + Encounter Details Date Type Department Care Team (Latest Contact Info) Description 05/06/2023 Travel Social History Tobacco Use Types Packs/Day [...] on filedocumented in this encounter Care Teams Sales And Marketing Coordinator Relationship Specialty Start Date End Date Natasha Bates PA-C [address] [place] [id number] PCP - General 03/21/19 06/20/23 documented as of this encounter
--- OUTSIDE RECORDS SUMMARY | 2024-05-22 05:41 | XMS_ITS | Encounter Summary ---
Author Organization [facility] Address [address] [facility] [place] [address] Care Team Providers Care Economics Consultant Name Role Phone Natasha Bates PA-C Primary Care Provider + Encounter Details Date Type Department Care Team (Late st Contact Info) Description 05/04/2021 11:00 AM SEWAGE SCREEN OPERATOR Office Visit [facility] [address] [facility] [address] [place] [address] Berenice Plaza, NURSE PLASTICS-MARKETING PLANNER [address] [facility] [address] [place] [phone] Essential hypertension (Primary Dx); Morbid obesity (HCC); LVH (left ventricular hypertrophy) due to hypertensive disease, with heart failure (HCC); Pedal edema Social History Tobacco Use Types Packs/Day Years [...] Sign Reading Time Taken Comments Blood Pressure 132/80 05/04/2021 11:27 AM SEWAGE SCREEN OPERATOR Pulse 83 05/04/2021 11:27 AM SEWAGE SCREEN OPERATOR Temperature 36.4 ??C (97.5 ??F) 05/04/2021 11:[address] Respiratory Rate - - Oxygen Saturation 97% 05/04/2021 11:00 AM SEWAGE SCREEN OPERATOR Inhaled Oxygen Concentration - - Weight 134.7 kg (297 lb) 05/04/2021 11:00 AM SEWAGE SCREEN OPERATOR Height 182.9 cm (6') 05/04/2021 11:00 AM SEWAGE SCREEN OPERATOR Body Mass Index 40.28 05/04/2021 11:00 AM SEWAGE SCREEN OPERATOR documented in this encounter Functional Status [...] * Patient Instructions* Berenice Plaza APRN-CNP - 05/04/2021 11:26 AM SEWAGE SCREEN OPERATOR BP 138/70 Pulse 83 Temp 97.5 ??F (36.4 ??C) (Temporal) Ht 6' (1.829 m) Wt 297 lb (134.7 kg) SpO2 97% BMI 40.28 kg/m2 Continue to monitor your blood pressure if your blood pressure remains consistently above 130 at home then let me know, we can consider adding back a small dose of Coreg. Follow up with Berenice in 6 months. GE SCREEN OPERATOR documented in this encounter Progress Notes * Berenice Plaza APRN-CNP - 05/04/2021 11:00 AM CST Assessment and Plan: Problem List Items Addressed This Visit Endocrine Morbid obesity SP gastric sleeve. Now with weight loss of 90lbs. Stable. Will need to monitor blood pressure as weight loss stabilizes. Cardiovascular Essential hypertension - Primary SBP 120 at home, with DBP in the 70's per his report. Will continue to monitor at home, can consider resuming low dose Coreg 3.125mg BID if needed. Pt will reach out if warrants. After review of his medications, he has no contraindication to ED medications, PRN. LVH (left ventricular hypertrophy) due to hypertensive disease, with heart failure Pedal edema Resume Lasix daily, will help with hyperkalemia and lower extremity edema. Follow up with Berenice in 6 months. Log BP. Chief Complaint: BP Follow Up History of Present Illness: Howie Delaney is a 55 year old male with PMH significant for CKD, HTN,??Obesity sp gastric sleeve 07/2020 and weight loss of 90lbs, HLD, MIRELLA on CPAP, who was last seen in clinic??by??Dr. Moreno??inSeptember and his coreg was stopped for orthostasis in the setting of weight loss. And today he is following up for BP check, since we have last seen him he,??states at home his BP is in the 12-130/70s at home. Dizziness and LH is much improved since stopping Coreg. No chest pain, residual LUZ and SOB he is walking 3x a week at a gym which he just started. No palpitations. ROS is negative except for stated in the HPI. Past Medical History: Diagnosis Date ??? CKD (chronic kidney disease) ??? HFrEF (heart failure with reduced ejection fraction) ??? HLD (hyperlipidemia) ??? HTN (hypertension) ??? MIRELLA (obstructive sleep apnea) 05/13/2019 PHYSICAL EXAM: BP 132/80 (BP SITE: RIGHT ARM, BP POSITION: SITTING) Pulse 83 Temp 97.5 ??F (36.4 ??C) (Temporal) Ht 6' (1.829 m) Wt 297 lb (134.7 kg) SpO2 97% BMI 40.28 kg/m2 Body mass index is 40.28 kg/m??. GENERAL: No acute distress, pleasant, appears stated age alert and oriented x 3 SKIN: Warm and dry with good turgor EYES: PERRLA, EOMI LUNGS: Clear to auscultation, no wheezing, crackles, or rales HEAD: Normocephalic atraumatic, Moist mucus membranes NECK: No JVD, no carotid bruits or thyromegaly HEART: Regular rate and rhythm, S1, S2. No murmurs gallups or rubs ABDOMEN: No organomegaly. Soft. Nontender, no guarding or rigidity, normoactive bowel sounds x 4 EXTREMITIES: Bilateral lower extremity Right>Left edema, cyanosis or clubbing. Pulses are 1-2 plus and symmetrical. NEURO: Cranial nerves II-XII grossly intact, no focal deficit. Current Outpatient Medications Medication Sig Dispense Refill [...] before or after. 30 packet 3 ??? triamcinolone acetonide (KENALOG) 0.025 % cream Apply to left nelson twice daily when inflamed. 30 days supply. 80 g 2 No current facility-administered medications for this visit. DATA: ECHO: 11/2020 ?? Technically difficult/suboptimal echocardiogram. Left ventricular systolic function is hyperdynamic with an ejection fraction of 75-80%. The left ventricular diastolic function is normal, consistent with normal left ventricle filling pressures. Normal right ventricular systolic function. No significant valvular dysfuntion. Mild pulmonary hypertension, estimated pulmonary arterial systolic pressure is 37 mmHg. There is no evidence of ASD/PFO by color Doppler and bubble study interrogation. ?? 05/2019 ?? The right atrium is mildly [...] pressures. No significant valvular abnormalities. ?? CATH/STRESS TESTING:??[facility] 11/2019 ?? Pressures: LV: ??116/24 mmHg LVEDP: [...] DOSE: Cumulative AK: 551.53 mGy Cumulative DAP: 23829 mGycm2 ?? DIAGNOSTIC INTERPRETATIONS: 1) Elevated filling pressure with moderate pulmonary venous hypertension (RA 15 mmHg, PAD 30 mmHg, LVEDP 24 mmHg). 2) Normal coronaries ?? RECOMMENDATIONS AFTER DIAGNOSTIC CATHETERIZATION:? Medical management for worsening dyspnea to achieve euvolemic status. ?? Hubert Avila MD? Cardiovascular Medicine Fellow [facility] ?? DEVICE:??08/10 ?There was 1??manually triggered events. ??During this??triggered episode, the patient reported??no symptoms??and sinus rhythm without rhythm or conduction abnormalities were noted. No orders found for this or any previous visit. GE SCREEN OPERATOR documented in this encounter Plan of [...] as of this encounter Visit Diagnoses Diagnosis Essential hypertension- Primary Morbid obesity (HCC) Morbid obesity LVH (left ventricular hypertrophy) due to hypertensive disease, with heart failure (HCC) Pedal edema Edema * Assessment & Plan Note - Berenice Plaza APRN-CNP - 05/04/2021 1:48 PM SEWAGE SCREEN OPERATOR Associated Problem(s): Pedal edema Resume Lasix daily, will help with hyperkalemia and lower extremity edema. GE SCREEN OPERATOR * Assessment & Plan Note - Berenice Plaza APRN-CNP - 05/04/2021 1:44 PM SEWAGE SCREEN OPERATOR Associated Problem(s): Morbid obesity (HCC) SP gastric sleeve. Now with weight loss of 90lbs. Stable. Will need to monitor blood pressure as weight loss stabilizes. GE SCREEN OPERATOR * Assessment & Plan Note - Berenice Plaza APRN-CNP - 05/04/2021 1:43 PM SEWAGE SCREEN OPERATOR Associated Problem(s): Essential hypertension SBP 120 at home, with DBP in the 70's per his report. Will continue to monitor at home, can consider resuming low dose Coreg 3.125mg BID if needed. Pt will reach out if warrants. After review of his medications, he has no contraindication to ED medications, PRN. GE SCREEN OPERATOR documented in this encounter Care Teams Economics Consultant Relationship Specialty Start Date End Date Natasha Bates PA-C [address] [place] [phone] PCP - General 03/21/19 06/20/23 documented as of this encounter
--- OUTSIDE RECORDS SUMMARY | 2024-05-22 05:42 | XMS_ITS | Encounter Summary ---
Author Organization [facility] Address [address] [place] [address] Care Team Providers Care Director Of Sports Performance Name Role Phone Natasha Bates PA-C Primary Care Provider + Reason for Visit * Reason Comments Follow-up Encounter Details Date Type Department Care Team (Late st Contact Info) Description 02/04/2020 Telephone [facility] - Nephrology [address] [address], [place] [address] Letitia Vidal, RN Follow-up Social History Tobacco Use Types [...] as of this encounter Progress Notes * Letitia Vidal, RN - 02/04/2020 2:05 PM CDT Pt in hospital, Dr. Camacho [place] notified. documented in this encounter Plan of Treatment Not on file documented as of this encounter Visit Diagnoses Not on filedocumented in this encounter Care Teams Director Of Sports Performance Relationship Specialty Start Date End Date Natasha Bates PA-C [address] [place] [phone] PCP - General 03/21/19 06/20/23 documented as of this encounter
--- OUTSIDE RECORDS SUMMARY | 2024-05-22 05:42 | XMS_ITS | Encounter Summary ---
Author Organization [facility] Address [address] [facility] [place] [address] Care Team Providers Care Computational Sciences Professor Name Role Phone Natasha Bates PA-C Primary Care Provider + Encounter Details Date Type Department Care Team (Latest Contact Info) Description 04/30/2020 Travel Social History Tobacco Use Types Packs/Day [...] have Coronavirus / COVID-19? No / Unsure 04/30/2020 1:48 PM ROOF TILE LAYER documented as of this encounter Functional Status [...] on filedocumented in this encounter Care Teams Computational Sciences Professor Relationship Specialty Start Date End Date Natasha Bates PA-C [facility] [place] [phone] PCP - General 03/21/19 06/20/23 documented as of this encounter
--- OUTSIDE RECORDS SUMMARY | 2024-05-22 05:42 | XMS_ITS | Encounter Summary ---
Author Organization [facility] Address [address] [facility] [place] [address] Care Team Providers Care Freight And Passenger Agent Name Role Phone Natasha Bates PA-C Primary Care Provider + Reason for Visit * Reason Comments Follow-up Encounter Details Date Type Department Care Team (Late st Contact Info) Description 12/27/2019 Telephone [facility] - Nephrology [address] [place] [address], [facility] [place] [address] Letitia Vidal RN Follow-up Social [...] or suspected to have Coronavirus / COVID-19? Unable to assess 12/14/2019 11:06 AM CDT documented as of this encounter Functional Status Functional Status Response Date of Assess ment Is person deaf or have serious hearing difficult y? No 11/06/2019 Is person blind or have serious difficulty seein g? No 11/06/2019 Does person have serious dif ficulty walking/climbing stairs? No 11/06/2019 Does person have difficulty dressing/bathing? No 11/06/2019 Does person have difficulty doing errands alone? No 11/06/2019 Cognitive Status Response Date of Assessm ent Does person have difficulty concentrating/remembering/making decisions? No 11/06/2019 documented as of this encounter Progress Notes * Letitia Vidal RN - 12/27/2019 11:58 AM CDT Progress notes faxed to insurance; bariatric surgery attn Chelsea per pt's request. documented in this encounter Plan of Treatment Not on file documented as of this encounter Visit Diagnoses Not on filedocumented in this encounter Care Teams Freight And Passenger Agent Relationship Specialty Start Date End Date Natasha Bates PA-C [address] [place] [phone] PCP - General 03/21/19 06/20/23 documented as of this encounter
--- OUTSIDE RECORDS SUMMARY | 2024-05-22 05:42 | XMS_ITS | Encounter Summary ---
Author Organization [facility] Address [address] [facility] [place] [address] Care Team Providers Care Hand I Cutter Name Role Phone Natasha Bates PA-C Primary Care Provider + Encounter Details Date Type Department Care Team (Latest Contact Info) Description 04/30/2020 2:06 PM CAR SEAT COVERER - 04/30/2020 11:59 PM CAR SEAT COVERER Hospital Encounter [facility] [address] [place] [phone] Jesus Welch MD [address] [place] [phone] Discharge Disposition: Home or Self Care Social [...] COVID-19? No / Unsure 04/30/2020 1:48 PM CAR SEAT COVERER documented as of this encounter Functional Status [...] No 02/02/2020 documented as of this encounter Medications at Time of Discharge Medication Sig Dispensed Refills Start Date End Date acetaminophen (TYLENOL) 325 MG tablet Take 2 (two) tablets by mouth 11/07/2019 atorvastatin (LIPITOR) 40 MG tablet every 24 hours acetaminophen (TYLENOL) 325 MG tablet Take 2 tablets by mouth every 6 hours as needed Maximum allowable Acetaminophen amount = 4 Grams (4000 mg) / 24 hours. 11/07/2019 11/21/2020 albuterol HFA (PROAIR HFA) 108 (90 Base) MCG/ACT inhalerIndications:W heezing Inhale 2 puffs by mouth every 4 hours as needed for Shortness of Breath, Wheezing or Cough 1 Inhaler 1 03/18/2020 01/29/2021 allopurinol (ZYLOPRIM) 100 MG tablet Take 100 mg by mouth 2 times daily 01/29/2021 amLODIPine (NORVASC) 5 MG tablet Take 1 tablet by mouth once daily 90 tablet 4 12/10/2019 05/08/2020 carvedilol (COREG) 25 MG tablet Take 12.5 mg by mouth 2 times daily with morning and evening meal 08/25/2020 furosemide (LASIX) 40 MG tablet Take 2 tablets by mouth 2 times daily for 90 days 360 tablet 3 02/07/2020 05/07/2020 gabapentin (NEURONTIN) 300 MG capsule Take 300 mg by mouth 3 times daily 01/29/2021 isosorbide mononitrate CR 24hr (IMDUR) 30 MG tablet Take 1.5 tablets by mouth once daily 90 tablet 4 12/14/2019 08/25/2020 PARoxetine (PAXIL) 10 MG tablet Take 10 mg by mouth once daily 05/02/2020 traZODone (DESYREL) 50 MG tabletIndications:OS A (obstructive sleep apnea),Anxiety Take 1 tablet by mouth at bedtime 30 tablet 5 03/18/2020 05/02/2020 traZODone (DESYREL) 50 MG tabletIndications:OS A (obstructive sleep apnea) Take 1 tablet by mouth at bedtime 30 tablet 5 03/18/2020 05/02/2020 documented as of this encounter Plan of Treatment Not on file documented as of this encounter Procedures Procedure Name Priority Date/Time Associated Diagnosis Comments SIX MINUTE WALK Routine 04/30/2020 4:13 PM CAR SEAT COVERER Dyspnea on exertion documented in this encounter Results * SIX MINUTE WALK (04/30/2020 4:13 PM CAR SEAT COVERER) Impressions Jasson Mcclure MD - 04/30/2020 4:13 PM CAR SEAT COVERER [facility] DEPARTMENT OF PULMONARY, CRITICAL CARE, AND SLEEP [...] of Pulmonary, Critical Care and Sleep Medicine [facility] Pager: [phone] I have personally reviewed pulmonary function test data and finding. I concur with fellow's note. Jasson Mcclure MD Narrative Jasson Mcclure MD - 04/30/2020 4:13 PM CAR SEAT COVERER Saba Aldana MD ? 04/30/2020 ??4:57 PM Jesus Welch MD RESPIRATORY THERAPY ORDERABLES documented in this encounter Visit Diagnoses Diagnosis Dyspnea on exertion Other dyspnea and respiratory abnormality documented in this encounter Care Teams Hand I Cutter Relationship Specialty Start Date End Date Natasha Bates PA-C [address] [place] [phone] PCP - General 03/21/19 06/20/23 documented as of this encounter
--- OUTSIDE RECORDS SUMMARY | 2024-05-22 05:42 | XMS_ITS | Encounter Summary ---
Author Organization [facility] Address [address] [facility] [place] [address] Care Team Providers Care Allied Health Teacher Name Role Phone Natasha Bates PA-C Primary Care Provider + Reason for Visit * Reason Onset Date Comments Follow-up 06/02/2020 Encounter Details Date Type Department Care Team (Late st Contact Info) Description 06/02/2020 Telephone [facility] [address] [facility] [address] [place], [place] [phone] Rajni Webb RN Follow-up Social History Tobacco [...] Telephone Encounter - Rajni Webb RN - 06/02/2020 12:57 PM NOZZLE CEMENT SPRAYER HELPER Pt called to request cardiac stress test and R heart cath be sent to [facility] for pre-op for bariatricsurgery Pre-op referenced in office note from 04/28/2020 information faxed to [phone] Pt asking about order for labs Pt aware that BMP ordered 04/28/2020 [facility] Lab ordered mailed to pt LE CEMENT SPRAYER HELPER documented in this encounter Plan of Treatment Not on file documented as of this encounter Visit Diagnoses Not on filedocumented in this encounter Care Teams Allied Health Teacher Relationship Specialty Start Date End Date Natasha Bates PA-C [address] [place] [phone] PCP - General 03/21/19 06/20/23 documented as of this encounter
--- OUTSIDE RECORDS SUMMARY | 2024-05-22 05:42 | XMS_ITS | Encounter Summary ---
Author Organization [facility] Address [address] [place] [address] Care Team Providers Care Crop Scout Name Role Phone Natasha Bates PA-C Primary Care Provider + Reason for Visit * Reason Comments Shortness of Breath PBIBEMS for shortnes s of breath and BLE edema x4 days. Per EMS SPO2 on RA was 88%-EMS placed patient on 4L/NC-SPO2 then 100%. Patient reports h/o HTN, CHF, HLD and recent cardiac cath that showed possible pulm. HTN. Swelling Leg * Auth/Cert Specialty Diagnoses / Procedures Referred By Malena t Referred To Contact Referral ID Status Reason Start Date Expiration Date Visits Re quested Visits Authorized [id number] 1 1 Encounter Details Date Type Department Care Team (Late st Contact Info) Description 02/01/2020 6:01 PM CDT - 02/04/2020 10:27 AM CDT Emergency [facility] 6S ACUTE [address] [place] [phone] Robert Weldon MD [address] [facility] DIV [place] [phone] Estevan Lerma MD [address] [place] [address] Raul Gonzalez MD [address] [facility] 2L DIV OF [facility] [place] [address] Ash Wayne MD [address] [place] [address] General Medicine Discharge Disposition: Home or Self Care [...] Sign Reading Time Taken Comments Blood Pressure 117/75 02/04/2020 8:05 AM CDT Pulse 70 02/04/2020 8:05 AM CDT Temperature 36.5 ??C (97.7 ??F) 02/04/2020 8:05 AM CD T Respiratory Rate 18 02/04/2020 8:05 AM CDT Oxygen Saturation 94% 02/04/2020 8:05 AM CDT Inhaled Oxygen Concentration - - Weight 165.5 kg (364 lb 13.8 oz) 2019 12:42 AM CDT Height 185.4 cm (6' 1 ) 02/01/2020 6:12 PM CDT Body Mass Index 48.14 02/01/2020 6:12 PM CDT documented in this encounter Functional [...] No 02/02/2020 documented as of this encounter Discharge Summaries * Raul Gonzalez MD - 02/04/2020 8:14 AM CDT Physician Discharge Summary ?? Patient ID: Howie Delaney [id number] 54 year old 1965 Admit date: 02/01/2020 ?? Discharge date: 02/04/2020 ?? Admitting Physician: Ash Wayne MD ?? Discharge Physician: Raul Gonzalez MD ?? Admission Diagnoses: Acute on Chronic HFpEF, Acute on Chronic Hypoxic Respiratory Failure ?? Discharge Diagnoses: Same ?? Discharged Condition: Excellent ?? Hospital Course: Mr. Delaney is a 54yo male with a PMH of Morbid Obesity, MIRELLA, Pulmonary Hypertension, Essential HTN, Chronic Hypoxic Respiratory Failure, HFpEF and CKD who presented to the hospital on 01/31 with worsening orthopnea, PND, and lower extremity edema despite having increased his home dose of lasix. On arrival he was noted to require more oxygen than normal (required 4L but was usually on 2 at home) and and had significantly worse LE edema. CXR revealed a worsening left pleural effusion however interestingly BNP was only 124. He was treated with aggressive diuresis (40mg IV BID) to good effect and onday of discharge had significantly reduced edema and was able to lie in bed without requiring oxygen while awake. Of note given ECHO from May did not show significant diastolic dysfunction or lowEF and recent left/right heart cath did not reveal significant evidence of heart failure (although PCWP could not be completed per report) I pursued additional workup to look for significant proteinuria. However spot urine creatinine/protein estimated only 600g of proteinuria daily. As mentioned above he improved dramatically with diuresis and was discharged in excellent condition on 02/03. Of note his home diuretics were temporarily increased to 80mg PO lasix BID until his followup with cardiology in 3 days time. ?? Consults: None ?? Significant Diagnostic Studies: Xr Chest 1vw Result Date: 02/04/2020 FINDINGS/IMPRESSION: Hazy opacity at the left base [...] pleural effusion. Dictated by Freya Chowdhury MD (head resident). I, Dr. SELIN BENÍTEZ M.D. have personally reviewed and interpreted this examination/study. This report was electronically signed by SEILN BENÍTEZ M.D. on 02/04/2020 9:52 AM . Xr Chest 1vw Portable Result Date: 02/03/2020 FINDINGS/IMPRESSION: There is interval worsening of small to moderate left pleural effusion with associated left lower lobe atelectasis. Streaky/linear retrocardiac opacities may represent subsegmental atelectasis and/or airspace disease. Slight prominence of interstitial markings. There is no right pleural effusion, or pneumothorax. The cardiomediastinal silhouette is normal. Dictated by Roshan Whittaker MD (head resident). I, Dr. HARRISON SANDHU have personally reviewed and interpreted this examination/study. This report was electronically signed by HARRISON SANDHU on 02/03/2020 9:52 AM . ?? Discharge Exam: ?? Vitals: 02/04/20 0040 02/04/20 0042 02/04/20 0347 02/04/20 0805 BP: 107/69 112/62 117/75 Pulse: 54 75 70 Resp: 19 15 18 Temp: 98.1 ??F (36.7 ??C) 98 ??F (36.7 ??C) 97.7 ??F (36.5 ??C) SpO2: 95% 91% 94% Weight: (!) 165.5 kg (364 lb 13.8 oz) Height: Estimated body mass index is 48.14 kg/m?? as calculated from the following: Height as of this encounter: 1.854 m (6' 1 ). Weight as of this encounter: 165.5 kg (364 lb 13.8 oz). Gen: Alert cooperative male sitting in chair in no acute distress HEENT: Normocephalic, Atraumatic, Oropharynx Clear Neck: Unable to assess for JVD due to body habitus. CV: Heart sounds are distant, likely due to body habitus but within confines of limited exam, has regular rate and rhythm without murmur, rub or gallop. Lungs: Clear to Auscultation Bilaterally, No Cough Abdomen: Obese, Soft, Non-tender, Non-distended. No Rebound/Guarding, Normoactive Bowel Sounds Extremities: Trace to 1+ edema bilaterally. Skin: No rashes, wounds or color changes noted Neuro: Alert and oriented to person, place and time. No gross focal deficits. Disposition: Home ?? Patient Instructions: ?? Discharge Instructions Dear Mr. Delaney, You were admitted to the hospital with shortness of breath and swelling. We determined your symptoms were due to excessive volume and think the most likely explanation for this is blood backing up behind your heart which we call heart failure . To continue caring for this condition we recommend the followin) For the next few days please take an INCREASED dose of the diuretic Lasix. I have prescribed a week's worth of 40mg tablets. You will take 80mg twice a day (which will be 2 40mg tablets twice per day). 2) Please take your weight daily and record these to bring to your next doctor's appointment 3) Please attend your follow up visit with Cardiology on 02/06. Make sure to discuss your lasix doseand get recommendations on any changes they might recommend at that time. 4) If you experience any worsening shortness of breath, chest pain, fevers, chills or other concerning symptoms please contact your doctor right away, or if severe call 911 and go to the nearest emergency room for treatment and further evaluation. It was a pleasure taking care of you and we wish you good health moving forward! Medication List CHANGE how you take these medications furosemide 40 MG tablet Commonly known as: LASIX Take 2 tablets by mouth 2 times daily for 7 days What changed: ?? medication strength ?? how much to take ?? when to take this CONTINUE taking these medications acetaminophen 325 MG tablet Commonly known as: TYLENOL Take 2 tablets by mouth every 6 hours as needed Maximum allowable Acetaminophen amount = 4 Grams (4000 mg) / 24 hours. allopurinol 100 MG tablet Commonly known as: ZYLOPRIM amLODIPine 5 MG tablet Commonly known as: NORVASC Take 1 tablet by mouth once daily atorvastatin 40 MG tablet Commonly known as: LIPITOR busPIRone 5 MG tablet Commonly known as: BUSPAR carvedilol 25 MG tablet Commonly known as: COREG gabapentin 300 MG capsule Commonly known as: NEURONTIN isosorbide mononitrate CR 24hr 30 MG tablet Commonly known as: IMDUR Take 1.5 tablets by mouth once daily PARoxetine 10 MG tablet Commonly known as: PAXIL Where to Get Your Medications These medications were sent to [id number] - [address] [facility] [phone] [address], [facility] [phone] Hours: 24-hours ?? furosemide 40 MG tablet ??I personally participated in greater than 30 minutes of discharge related activities for this patient. Signed: Raul Gonzalez MD 02/04/2020 8:14 AM documented in this encounter Discharge Instructions * Discharge Instructions* Raul Gonzalez MD - 02/04/2020 8:12 AM CDT Dear Mr. Delaney, You were admitted to the hospital with shortness of breath and swelling. We determined your symptoms were due to excessive volume and think the most likely explanation for this is blood backing up behind your heart which we call heart failure . To continue caring for this condition we recommend the followin) For the next few days please take an INCREASED dose of the diuretic Lasix. I have prescribed a week's worth of 40mg tablets. You will take 80mg twice a day (which will be 2 40mg tablets twice per day). 2) Please take your weight daily and record these to bring to your next doctor's appointment 3) Please attend your follow up visit with Cardiology on 02/06. Make sure to discuss your lasix doseand get recommendations on any changes they might recommend at that time. 4) If you experience any worsening shortness of breath, chest pain, fevers, chills or other concerning symptoms please contact your doctor right away, or if severe call 911 and go to the nearest emergency room for treatment and further evaluation. It was a pleasure taking care of you and we wish you good health moving forward! documented in this encounter Medications at Time [...] (4000 mg) / 24 hours. 11/07/2019 11/21/2020 allopurinol (ZYLOPRIM) 100 MG tablet Take 100 mg by mouth 2 times daily 01/29/2021 amLODIPine (NORVASC) 5 MG tablet Take 1 tablet by mouth once daily 90 tablet 4 12/10/2019 05/08/2020 busPIRone (BUSPAR) 5 MG tablet Take 10 mg by mouth 2 times daily 03/18/2020 carvedilol (COREG) 25 MG tablet Take 12.5 mg by mouth 2 times daily with morning and evening meal 08/25/2020 furosemide (LASIX) 40 MG tablet Take 2 tablets by mouth 2 times daily for 7 days 28 tablet 02/04/2020 02/07/2020 gabapentin (NEURONTIN) 300 MG capsule Take 300 mg by mouth 3 times daily 01/29/2021 isosorbide mononitrate CR 24hr (IMDUR) 30 MG tablet Take 1.5 tablets by mouth once daily 90 tablet 4 12/14/2019 08/25/2020 PARoxetine (PAXIL) 10 MG tablet Take 10 mg by mouth once daily 05/02/2020 documented as of this encounter Progress Notes * Eda Rocha RN - 02/04/2020 1:45 AM CDT Problem: Fall Risk Goal: Fall risk and fall related injury risk are minimized Outcome: Ongoing * Raul Gonzalez MD - 02/03/2020 1:11 PM CDT INTERNAL MEDICINE DAILY PROGRESS NOTE Date: 02/03/2020 Patient: Howie Delaney Age: [age] year old Admit Date: 02/01/2020 Subjective: Overnight no significant events. On exam today reports significant improvement in shortness of breath and swelling although not quite back to baseline. No new concerns/complaints. Objective: Physical Exam: BP 119/66 Pulse 68 Temp 97.8 ??F (36.6 ??C) (Oral) Resp 17 Ht 1.854 m (6' 1 ) Wt 171 kg (377 lb) SpO2 91% BMI 49.74 kg/m2 GEN: Alert male sitting in chair in NAD HEENT: NCAT, MMM, Oropharynx clear. Neck: Unable to assess for JVD given body habitus. RESP: Clear to auscultation bilaterally, Lung sounds in bases much improved from yesterday. CARDIO: Heart sounds still somewhat distant, likely 2/2 body habitus. Within confines of limited exam heart regular rate and rhythm, No murmurs/rubs/gallops GI: Abdomen obese, soft and non tender, non-distended, +BS EXT: 1+ Edema in LE bilaterally left somewhat larger than right, much improved from yesterday. SKIN: warm and dry, no rashes/wounds/sores appreciated. NEURO: Alert and oriented to person, place, time and situation. No focal deficits Labs Reviewed Assessment & Plan: Acute on Chronic Hypoxic Respiratory Failure, Lower Extremity Edema, Worsening Left Pleural Effusion, Appears to be volume overloaded. Exact etiology is not entirely clear. - Symptoms and presentation seem consistent with HF exacerbation, however patient has unimpressive cardiac workup recently relative to the severity of his presentation - BNP on arrival 124 - ECHO on 06/11 with EF 75%, mild LA enlargement but normal noted diastolic dysfunction - Had recent Left/Right Heart Cath on 12/19 with findings of moderate pulmonary HTN, Elevated PA pressures but they were unable to obtain a wedge pressure. - Spot Urine/Protein ratio without significant proteineuria. - Improving significantly with diuresis. - Will convert to 80mg PO lasix BID today. - Continue supplemental Oxygen, now back to baseline requirements (reportedly on 2L at night/with exertion) ?? HFpEF/Essential HTN - Continue Carvedilol 25mg BID - Continue Imdur 45mg QD - Continue Amlodipine 5mg QD, may be culprit in LE edema but doesn't explain hypoxia/pleural effusion ?? Pulm HTN/MIRELLA - CPAP ?? CKD, Baseline Creatinine ~1.4 - Remains at baseline - Urine creatinine/protein ratio estamates ~600mg of proteinuria daily. Consider ACEI but will defer to outpatient Ballistics Professor. - Continue to monitor - Minimize nephrotoxic agents ?? Depression - Continue Paroxetine 10mg QD ?? Chronic Pain - Continue Gabapentin 300mg TID ?? HLD - Continue Atorvastatin 40mg QD ?? Gout - Continue Allopurinol 100mg BID ?? Diet - Cardiac/Low Sodium ?? DVT Prophylaxis - Lovenox ?? Code Status - Full, TSL1 Raul Gonzalez MD 02/03/2020 1:11 PM * Raul Gonzalez MD - 02/03/2020 7:54 AM CDT COVID testing done on admission negative. OK to discontinue COVID isolation at this time. Raul Gonzalez MD 02/03/2020 7:55 AM * Raul Gonzalez MD - 02/02/2020 7:28 AM CDT INTERNAL MEDICINE DAILY PROGRESS NOTE Date: 02/02/2020 Patient: Howie eDlaney Age: [age] year old Admit Date: 02/01/2020 Subjective: Overnight no significant events. On exam today patient reports still having significant orthopnea and swelling but that both are improved since arrival. Denies any new symptoms or concerns. Objective: Physical Exam: BP 108/69 Pulse 62 Temp 98 ??F (36.7 ??C) (Oral) Resp 15 Ht 1.854 m (6' 1 ) Wt 171 kg (377 lb) DiJ782% BMI 49.74 kg/m2 GEN: Alert male sitting upright in bed in NAD HEENT: NCAT, MMM, Oropharynx clear. Neck: Due to body habitus unable to assess accurately for JVD RESP: Lung sounds blunted in left lung base. No CARDIO: Heart sounds distant, likey 2/2 body habitus. Within confines of limited exam, Regular rateand rhythm, No murmurs/rubs/gallops GI: Abdomen obese, soft and non tender, not significantly distended EXT: 1-2+ LE edema to knee bilaterally. SKIN: warm and dry, no rashes/wounds/sores appreciated. NEURO: Alert and oriented to person, place, time and situation. No focal deficits Labs Reviewed Imaging Reviewed Assessment & Plan: Acute on Chronic Hypoxic Respiratory Failure, Lower Extremity Edema, Worsening Left Pleural Effusion, Appears to be volume overloaded. Exact etiology is not entirely clear. - Symptoms and presentation seem consistent with HF exacerbation, however patient has unimpressive cardiac workup recently relative to the severity of his presentation - BNP on arrival 124 - ECHO on 06/11 with EF 75%, mild LA enlargement but normal noted diastolic dysfunction - Had recent Left/Right Heart Cath on 12/19 with findings of moderate pulmonary HTN, Elevated PA pressures but they were unable to obtain a wedge pressure. - Given known CKD and recent proteinuria on 12/25, will screen for any significant proteinuria but obtaining spot Urine Protien/Creatinine, consider 24 hour urine study depending on results - No significant derangement in LFTs and recent INR WNL. Will obtain RUQ US to estimate portal venous pressure. - Continue diuresis for now with Lasix 40mg IV BID and monitor volume status closely - Continue supplemental Oxygen (reportedly on 2L at night/with exertion) HFpEF/Essential HTN - Continue Carvedilol 25mg BID - Continue Imdur 45mg QD - Continue Amlodipine 5mg QD, may be culprit in LE edema but doesn't explain hypoxia/pleural effusion Pulm HTN/MIRELLA - CPAP CKD, Baseline Creatinine ~1.4 - At baseline, but will evaluate for significant proteinuria as per above. - Continue to monitor - Minimize nephrotoxic agents Depression - Continue Paroxetine 10mg QD Chronic Pain - Continue Gabapentin 300mg TID HLD - Continue Atorvastatin 40mg QD Gout - Continue Allopurinol 100mg BID Diet - Cardiac/Low Sodium DVT Prophylaxis - Lovenox Code Status - Full, TSL1 Raul Gonzalez MD 02/02/2020 7:28 AM documented in this encounter H&P Notes * Ash Wayne MD - 02/01/2020 11:25 PM CDT Hospital Medicine History and Physical Name: Howie Delaney Age: [age] year old [facility]: [facility] Date Admitted: 02/01/2020 Chief Complaint: Shortness of breath and B/l Lower extremity swelling History of Present Illness: Howie Delaney is a 54 year old male with past medical history significant for CKD, HFrEF, HLD, HTN, MIRELLA, and pulmonary hypertension who presents to the ER for bilateral lower extremity swelling and shortness of breath that started on 01/29/20 for which he visited an ER in [place]. He was thought to be in heart failure and was given 1 dose of IV lasix and was discharged. On 01/30/20 his PCP had increased his lasix from 20 mg BID to 40 mg BID. His symptoms did not improve at home and his PCP told him to come to the [facility] ER where all his care is based. He says he does not walk more than a block because he gets short of breath at baseline but in the past two days it has been worst where he has trouble walking around his home. He also sleeps with his bed elevated because of shortness of breath and says that he has found that he is more short of breath while laying on an inclined bed as well. He currently does not have any chest pain and has been compliant with all his medications. He is supposed to be on NC O2 at 3L at home as per his surgical specialist but he does not take it. He has a portable oxygen tank and uses it when his O2 sats drop. He does not remember checking his O2 sats at home recently. In the ER CXR reveals a prominence of interstitial markings and left sided pleural effusion. He is given IV Bumex 2 mg. 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 CKD (chronic kidney disease) ??? HFrEF (heart failure with reduced ejection fraction) ??? HLD (hyperlipidemia) ??? HTN (hypertension) ??? MIRELLA (obstructive sleep apnea) 05/13/2019 Past Surgical History: Past Surgical History: Procedure Laterality Date ??? BLADDER PROCEDURE/SURGERY arteficial EUS Family History: Family History Problem Relation Name Age of Onset ??? Other Mother pulmonary hypertension ??? Other Nephew pulmonary hypertension Home Medications: No current facility-administered medications on file prior to encounter. Current Outpatient Medications on File Prior to Encounter Medication Sig Dispense Refill ??? acetaminophen (TYLENOL) 325 MG tablet Take 2 tablets by mouth every 6 hours as needed Maximum allowable Acetaminophen amount = 4 Grams (4000 mg) / 24 hours. ??? allopurinol (ZYLOPRIM) 100 MG tablet Take 100 mg by mouth 2 times daily ??? amLODIPine (NORVASC) 5 MG tablet Take 1 tablet by mouth once daily 90 tablet 4 ??? atorvastatin (LIPITOR) 40 MG tablet every 24 hours ??? busPIRone (BUSPAR) 5 MG tablet Take 10 mg by mouth 2 times daily ??? carvedilol (COREG) 25 MG tablet Take 25 mg by mouth 2 times daily with morning and evening meal ??? furosemide (LASIX) 20 MG tablet Take 1 tablet by mouth once daily (Patient taking differently: Take 20 mg by mouth 2 times daily ) 60 tablet 11 ??? gabapentin (NEURONTIN) 300 MG capsule Take 300 mg by mouth 3 times daily ??? isosorbide mononitrate CR 24hr (IMDUR) 30 MG tablet Take 1.5 tablets by mouth once daily 90 tablet 4 ??? PARoxetine (PAXIL) 10 MG tablet Take 10 mg by mouth once daily Allergies: No Known Allergies Review of Systems: Review of Systems Constitutional: Negative for chills and fever. HENT: Negative for congestion, sinus pain and sore throat. Eyes: Negative for blurred vision. Respiratory: Positive for cough and shortness of breath. Negative for hemoptysis, sputum productionand wheezing. Cardiovascular: Positive for orthopnea and leg swelling. Negative for chest pain and palpitations. Gastrointestinal: Negative for abdominal pain, constipation, diarrhea, heartburn, nausea and vomiting. Genitourinary: Negative for dysuria, frequency, hematuria and urgency. Musculoskeletal: Negative for back pain and myalgias. Neurological: Negative for dizziness, weakness and headaches. Objective: Vitals: 02/01/20 1812 02/01/20 2200 02/01/20 2240 02/01/20 2312 BP: 111/62 104/59 Pulse: 80 62 67 Resp: 21 13 Temp: 98.7 ??F (37.1 ??C) 97.8 ??F (36.6 ??C) SpO2: 100% 98% Weight: (!) 152 kg (335 lb) Height: 1.854 m (6' 1 ) Estimated body mass index is 44.2 kg/m?? as calculated from the following: Height as of this encounter: 1.854 m (6' 1 ). Weight as of this encounter: 152 kg (335 lb). Physical Exam: General: Alert, cooperative, NAD, overweight, NC O2 @3L Skin: No rashes or lesions noted HEENT: NC,AT, PERRL, EOMI, thick neck Neck: Supple, no JVD Heart: RRR, normal S1 and S2 Lungs: Clear to auscultation. No wheezes, rales or rhonchi Abdomen: Soft, non-tender, normal bowel sounds Extremities: Bilateral lower extremity pitting edema with some erythema and scaly skin, cool to touch minimal tenderness Pulses: 2+ and symmetric MSKL: Normal bulk and tone. Intact ROM in all extremities Neuro: Alert and oriented X 3 Labs: Recent Labs Component Name 02/01/20201312/26/19 1507 12/14/19 0745 WBC 12.4* - - 11.3* HGB 12.4* - - 12.1* HCT 40.3 - - 39.4 NA 139 143 - 141 CL 98 105 - 105 BUN 30* 27* - 37* CREATININE 1.5* 1.5* - 1.7* PHOS - 3.9 - - CALCIUM 9.3 8.6 - 8.7 PT - - - 13.1 INR - - - 1.0 AST 28 - - - ALT 32 - - - ALKPHOS 97 - - - TBILI 0.7 - - - - = values in this interval not displayed. Microbiology: Imaging: No results found. Assessment and Plan: 54 year old male with past medical history significant for CKD, HFrEF, HLD, HTN, MIRELLA, and pulmonaryhypertension who presents to the ER for shortness of breath and bilateral lower extremity swelling starting 01/29/20 1. Acute on chronic HFpEF exacerbation: BNP not extremely elevated (obesity can underestimate actually number), CXR with pleural effusion, start IV lasix 40 mg BID, monitor IO and daily weights, COVID sent in ER 2. Pulmonary hypertension: observe 3. MIRELLA: continue CPAP 4. CKD: CR at baseline; continue diuresis 5. HLD: continue Lipitor 6. Stasis dermatitis: keep legs elevated and continue diuresis 7. Obesity: bariatric surgery workup in progress as out patient Lines: PIV Disposition: Inpatient Diet: Cardiac Prophylaxis: sq heparin Code: Full Ash Wayne MD Acid Crane Operator, Internal Medicine documented in this encounter ED Notes * Vanessa Meyers RN - 02/02/2020 10:09 AM CDT Pt appears to be resting on ED bed with eyes closed. Bed brakes locked and side rails in up position for Pt's safety. NAD, VS as documented, even and unlabored respirations noted. No new orders at this time. * Vanessa Meyers RN - 02/02/2020 7:45 AM CDT MD Lisa Corey, called for consult on heparin administration. Per MD: Heparin to be changed to Lovenox. * Leonardo Marin RN - 02/02/2020 6:50 AM CDT Pt reports previous events of hematuria after receiving heparin. Medication withheld until consulting medic team which was paged * Oh Crawford MD - 02/02/2020 6:09 AM CDT Physician Transition Note 6:09 AM Care assumed from Dr. Lao Briefly, this is a 54 year old male with Chief Complaint Patient presents with ??? Shortness of Breath PBIBEMS for shortness of breath and BLE edema x4 days. Per EMS SPO2 on RA was 88%-EMS placed patient on 4L/NC-SPO2 then 100%. Patient reports h/o HTN, CHF, HLD and recent cardiac cath that showed possible pulm. HTN. ??? Swelling Leg Significant Findings: PTN, PUI Workup (labs/Imaging) pending:none Working Differential: Pulm Htn Current Plan/Dispo: admit Please refer to previous Attending note for further details. BP 113/68 Pulse 67 Temp 97.8 ??F (36.6 ??C) (Oral) Resp 15 Ht 1.854 m (6' 1 ) Wt 171 kg (377 lb) SpO2 96% BMI 49.74 kg/m2 ED Course Labs Reviewed CBC W AUTO DIFFERENTIAL - Abnormal; Notable for the following components: Result Value WBC 12.4 (*) Hemoglobin 12.4 (*) MCHC 30.8 (*) RDW-CV 14.9 (*) Neutrophils Absolute 8.1 (*) Monocytes Absolute 0.97 (*) Eosinophils Absolute 0.57 (*) All other components within normal limits COMPREHENSIVE METABOLIC PANEL - Abnormal; Notable for the following components: BUN 30 (*) Creatinine 1.5 (*) CO2 35 (*) Albumin 2.9 (*) Albumin/Globulin Ratio 0.6 (*) eGFR 49 (*) All other components within normal limits B-TYPE NATRIURETIC PEPTIDE - Abnormal; Notable for the following components: BNP 124 (*) All other components within normal limits CBC W AUTO DIFFERENTIAL - Abnormal; Notable for the following components: WBC 11.6 (*) RBC 4.13 (*) Hemoglobin 11.7 (*) Hematocrit 37.7 (*) MCHC 31.0 (*) RDW-CV 14.9 (*) Lymphocyte Absolute 3.0 (*) Monocytes Absolute 1.06 (*) Eosinophils Absolute 0.70 (*) All other components within normal limits BASIC METABOLIC PANEL (CALCIUM TOTAL) - Abnormal; Notable for the following components: BUN 27 (*) Creatinine 1.4 (*) CO2 34 (*) eGFR 53 (*) All other components within normal limits TROPONIN I - Normal SARS-COV-2 (COVID-19) IN HOUSE 6:54 AM In no distress awaiting admission DX: 1. Pulmonary hypertension 2. Congestive heart failure, unspecified HF chronicity, unspecified heart failure type 3. Morbid obesity * Leonardo Marin RN - 02/01/2020 11:51 PM CDT Pt weighed at bedside on scale per provider request * Yonas Lao MD - 02/01/2020 10:05 PM CDT ASSUMED CARE NOTE Patient signed out to me by Dr. Weldon at 10:05 PM. Briefly, Howie Delaney is a 54 year old male with pmhx of CKD, HFrEF, HLD, HTN, MIRELLA, and pulmonary hypertension is being evaluated for SOB and leg swelling. Patient was discharged from [facility] yesterday for the same complaint and was discharged with IV Lasix. Patient uses L NC as well as CPAP at night. At this time the patient's condition is Stable. Pending EKG. Plan is likely admission to Medicine. Vitals: 02/02/20 0259 02/02/20 0300 02/02/20 0429 02/02/20 0430 BP: 118/65 113/68 Pulse: 67 65 63 67 Resp: 16 18 15 15 Temp: SpO2: 95% 96% Weight: Height: Clinical Impression: 1. Pulmonary hypertension 2. Congestive heart failure, unspecified HF chronicity, unspecified heart failure type 3. Morbid obesity ED Course: 10:43 PM: After discussion with Medicine, the patient will be admitted to their service for furthermanagement of care. -I have reviewed the diagnostic findings with the patient and they have had an opportunity to ask me any questions they have about care, diagnosis, and reason for admission. The patient states understanding and agrees to admission. Disposition: Admit to Medicine Sign out to Dr. Wayne By signing my name below, I, Andrew Hawthorne, attest that this documentation has been prepared under thedirection and in the presence of Dr. Lao. Signed: Richard Urbano. I, Dr. Lao, personally performed the services described in this documentation. All medical record entries made by the scribe were at my direction and in my presence. I have reviewed the chart and agree that the record reflects my personal performance and is accurate and complete. * Robert Weldon MD - 02/01/2020 8:42 PM CDT [facility] ED Attending Note HPI: Howie Delaney is a 54 year old male with hx of CKD, HFrEF, HLD, HTN, MIRELLA, and pulmonary hypertensionwho presents to the ED today with a chief complaint of shortness of breath. Patient reports worsening shortness of breath and leg swelling for the past 4 days. He states he went to [facility] yesterday for evaluation of these complaints and was discharged home after receiving IV Lasix. He then called his PCP today who told him he should have been admitted to the hospital so he came here for evaluation. Patient states he has been taking double his daily Lasix dose for the past two days but has had a decrease in frequency of urination. He notes additional symptoms of orthopnea, dyspnea on exertion, and intermittent chest pain associated with SOB. Patient states he uses 3L NC at home aswell as CPAP at night. Denies cough, fever, or chills. Other PMHx as listed below. No other questions or complaints at this time. Past Medical History: Diagnosis Date ??? CKD (chronic kidney disease) ??? HFrEF (heart failure with reduced ejection fraction) ??? HLD (hyperlipidemia) ??? HTN (hypertension) ??? MIRELLA (obstructive sleep apnea) 05/13/2019 Past Surgical History: Procedure Laterality Date ??? BLADDER PROCEDURE/SURGERY arteficial EUS Social History Socioeconomic History ??? Marital status: Spouse name: Not on file ??? Number of children: Not on file ??? Years of education: Not on file ??? 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 Financial resource strain: Not on file ??? Food insecurity Worry: Not on file Inability: Not on file ??? Transportation needs Medical: Not on file Non-medical: Not on file Tobacco Use ??? Smoking status: Never Smoker ??? Smokeless tobacco: Never Used Substance and Sexual Activity ??? Alcohol use: Yes Frequency: 2-4 times a month Drinks per session: 1 or 2 Binge frequency: Never Comment: maybe 4 drinks a month ??? Drug use: Never ??? Sexual activity: Never Lifestyle ??? Physical activity Days per week: Not on file Minutes per session: Not on file ??? Stress: Not on file Relationships ??? Social connections Talks on phone: Not on file Gets together: Not on file Attends quaker service: Not on file Active member of club or organization: Not on file Attends meetings of clubs or organizations: Not on file Relationship status: Not on file ??? Intimate partner violence Fear of current or ex partner: Not on file Emotionally abused: Not on file Physically abused: Not on file Forced sexual activity: Not on file Other Topics Concern ??? Not on file Social History Narrative ??? Not on file Review of Systems: Review of Systems Constitutional: Negative for chills, diaphoresis, fever and malaise/fatigue. HENT: Negative for congestion and sore throat. Eyes: Negative for blurred vision and double vision. Respiratory: Positive for shortness of breath. Negative for cough, sputum production and wheezing. Cardiovascular: Positive for chest pain, orthopnea and leg swelling. Negative for palpitations. Gastrointestinal: Negative for abdominal pain, constipation, diarrhea, melena, nausea and vomiting. Genitourinary: Negative for dysuria, frequency and hematuria. Musculoskeletal: Negative for joint pain and myalgias. Skin: Negative for itching and rash. Neurological: Negative for dizziness, sensory change, speech change, focal weakness, weakness and headaches. Endo/Heme/Allergies: Negative. Psychiatric/Behavioral: Negative for depression and substance abuse. All other systems reviewed and are negative. Vitals: 02/01/20 1812 02/01/20 2200 BP: 111/62 104/59 Pulse: 80 62 Resp: 21 13 Temp: 98.7 ??F (37.1 ??C) SpO2: 100% 98% Weight: (!) 152 kg (335 lb) Height: 1.854 m (6' 1 ) Physical Exam: Physical Exam Vitals signs and nursing note reviewed. Constitutional: General: He is not in acute distress. Appearance: Normal appearance. He is well-developed. He is not diaphoretic. Comments: Morbidly obese HENT: Head: Normocephalic and atraumatic. Nose: No rhinorrhea. Mouth/Throat: Mouth: Mucous membranes are moist. Pharynx: Oropharynx is clear. Eyes: Extraocular Movements: Extraocular movements intact. Conjunctiva/sclera: Conjunctivae normal. Neck: Musculoskeletal: Normal range of motion and neck supple. Thyroid: No thyromegaly. Vascular: No carotid bruit or JVD. Trachea: No tracheal deviation. Cardiovascular: Rate and Rhythm: Normal rate and regular rhythm. Pulses: Normal pulses. Heart sounds: S1 normal and S2 normal. No murmur. Pulmonary: Effort: Pulmonary effort is normal. No respiratory distress. Breath sounds: No stridor. Comments: Lung sounds clear but distant d/t body habitus Chest: Chest wall: No tenderness. Abdominal: General: Bowel sounds are normal. There is no distension. Palpations: Abdomen is soft. Tenderness: There is no abdominal tenderness. Musculoskeletal: General: No tenderness or deformity. Comments: Anasarca Lymphadenopathy: Cervical: No cervical adenopathy. Skin: General: Skin is warm and dry. Coloration: Skin is not pale. Findings: No rash. Neurological: Mental Status: He is alert and oriented to person, place, and time. GCS: GCS eye subscore is 4. GCS verbal subscore is 5. GCS motor subscore is 6. Cranial Nerves: No cranial nerve deficit. Motor: No tremor or abnormal muscle tone. Gait: Gait normal. Deep Tendon Reflexes: Reflexes are normal and symmetric. Psychiatric: Behavior: Behavior normal. MDM/DDx: Anasarca and SOB, likely CHF exacerbation vs worsening kidney disease Plan: Labs, EKG, CXR Data: Labs Reviewed CBC W AUTO DIFFERENTIAL - Abnormal; Notable for the following components: Result Value WBC 12.4 (*) Hemoglobin 12.4 (*) MCHC 30.8 (*) RDW-CV 14.9 (*) Neutrophils Absolute 8.1 (*) Monocytes Absolute 0.97 (*) Eosinophils Absolute 0.57 (*) All other components within normal limits COMPREHENSIVE METABOLIC PANEL - Abnormal; Notable for the following components: BUN 30 (*) Creatinine 1.5 (*) CO2 35 (*) Albumin 2.9 (*) Albumin/Globulin Ratio 0.6 (*) eGFR 49 (*) All other components within normal limits B-TYPE NATRIURETIC PEPTIDE - Abnormal; Notable for the following components: BNP 124 (*) All other components within normal limits TROPONIN I - Normal SARS-COV-2 (COVID-19) IN HOUSE XR CHEST 1VW PORTABLE (Results Pending) Pulse oximetry was interpreted by me. The reading was 100% on 4L NC at the time of the reading. This is interpreted as adequate with supplementation. ED Course: 9:52 PM- Labs reviewed- BNP 124. Cr 1.5 (baseline). WBC 12.4. CXR appears similar to prior. EKG pending. Will discuss admission with internal medicine. Consults: NO Procedures: NO Ultrasound: NO CRITICAL CARE IN THE ED: NO Orders and Medications: Orders Placed This Encounter ??? SARS-COV-2 (COVID-19) IN HOUSE ??? XR CHEST 1VW PORTABLE ??? CBC W AUTO DIFFERENTIAL ??? COMPREHENSIVE METABOLIC PANEL ??? TROPONIN I ??? B-TYPE NATRIURETIC PEPTIDE ??? EKG 12-LEAD ??? bumetanide (BUMEX) injection 2 mg Medications bumetanide (BUMEX) injection 2 mg (has no administration in time range) Clinical Impression: 1. Pulmonary hypertension 2. Congestive heart failure, unspecified HF chronicity, unspecified heart failure type 3. Morbid obesity Disposition: Pending admit By signing my name below, I, Harrison Del Cid, attest that this documentation has been prepared under the direction and in the presence of Dr. Weldon. Signed: Richard Butts. I personally performed the services described in this documentation. All medical record entries made by the scribe were at my direction and in my presence. I have reviewed the chart and agree that the record reflects my personal performance and is accurate and complete. * Wilman Nelson - 02/01/2020 7:47 PM CDT Howie Delaney [id number] [facility] EMERGENCY DEPARTMENT History Chief Complaint Patient presents with ??? Shortness of Breath PBIBEMS for shortness of breath and BLE edema x4 days. Per EMS SPO2 on RA was 88%-EMS placed patient on 4L/NC-SPO2 then 100%. Patient reports h/o HTN, CHF, HLD and recent cardiac cath that showed possible pulm. HTN. ??? Swelling Leg Mr. Delaney is a 54yo M with a PMH of HfpEF, HTN, CKD stage 3 with hyperkalemia, obesity, MIRELLA, and possible pulmonary HTN who presents to the ED for increased SOB and swelling. He was seen at an OSH yesterday and was found to have pulmonary edema but was discharged after being given IV lasix. Since Tuesday, he has been taking 40mg Lasix BID which is double his dose, but he has been having reduced urine output, increased shortness of breath, and swelling. He reports orthopnea and sleeps in an electric chair propped up. He also reports transient L chest pain chronically that has historically resulted in negative troponins. He is following with cardiology, nephrology, and pulmonology here at [facility] and has multiple follow up appointments in the near future. Past Medical History: Diagnosis Date ??? 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 Financial resource strain: Not on file ??? Food insecurity Worry: Not on file Inability: Not on file ??? Transportation needs Medical: Not on file Non-medical: Not on file Tobacco Use ??? Smoking status: Never Smoker ??? Smokeless tobacco: Never Used Substance and Sexual Activity ??? Alcohol use: Yes Frequency: 2-4 times a month Drinks per session: 1 or 2 Binge frequency: Never Comment: maybe 4 drinks a month ??? Drug use: Never ??? Sexual activity: Never Lifestyle ??? Physical activity Days per week: Not on file Minutes per session: Not on file ??? Stress: Not on file Relationships ??? Social connections Talks on phone: Not on file Gets together: Not on file Attends quaker service: Not on file Active member of club or organization: Not on file Attends meetings of clubs or organizations: Not on file Relationship status: Not on file ??? Intimate partner violence Fear of current or ex partner: Not on file Emotionally abused: Not on file Physically abused: Not on file Forced sexual activity: Not on file Other Topics Concern ??? Not on file Social History Narrative ??? Not on file Review of Systems Review of Systems Constitutional: Negative for chills and fever. HENT: Negative for congestion, sinus pain and sore throat. Respiratory: Positive for shortness of breath. Negative for cough and hemoptysis. Cardiovascular: Positive for chest pain, orthopnea and leg swelling. Negative for palpitations. Gastrointestinal: Positive for abdominal pain. Negative for nausea. Genitourinary: Negative for flank pain. Neurological: Negative for tingling, tremors and focal weakness. Physical Exam BP 111/62 Pulse 80 Temp 98.7 ??F (37.1 ??C) (Oral) Resp 21 Ht 1.854 m (6' 1 ) Wt (!) 152 kg (335 lb) SpO2 100% BMI 44.20 kg/m?? Physical Exam Constitutional: General: He is not in acute distress. Appearance: He is obese. He is not ill-appearing. HENT: Head: Normocephalic and atraumatic. Eyes: Extraocular Movements: Extraocular movements intact. Pupils: Pupils are equal, round, and reactive to light. Neck: Musculoskeletal: Normal range of motion. Vascular: No JVD. Cardiovascular: Rate and Rhythm: Normal rate and regular rhythm. Pulses: Normal pulses. Heart sounds: Normal heart sounds. No murmur. No friction rub. No gallop. Pulmonary: Effort: Pulmonary effort is normal. Breath sounds: Normal breath sounds. No wheezing, rhonchi or rales. Abdominal: Comments: Abdomen is markedly distended. Also tender bilaterally on the upper quadrants to palpation Musculoskeletal: Right lower leg: Edema present. Left lower leg: Edema present. Skin: General: Skin is warm. Findings: No erythema. Neurological: General: No focal deficit present. Mental Status: He is alert. Psychiatric: Mood and Affect: Mood normal. Behavior: Behavior normal. Medications Current Outpatient Medications Medication Sig Dispense Refill ??? acetaminophen (TYLENOL) 325 MG tablet Take 2 tablets by mouth every 6 hours as needed Maximum allowable Acetaminophen amount = 4 Grams (4000 mg) / 24 hours. ??? allopurinol (ZYLOPRIM) 100 MG tablet Take 100 mg by mouth 2 times daily ??? amLODIPine (NORVASC) 5 MG tablet Take 1 tablet by mouth once daily 90 tablet 4 ??? atorvastatin (LIPITOR) 40 MG tablet every 24 hours ??? busPIRone (BUSPAR) 5 MG tablet Take 10 mg by mouth 2 times daily ??? carvedilol (COREG) 25 MG tablet Take 25 mg by mouth 2 times daily with morning and evening meal ??? furosemide (LASIX) 20 MG tablet Take 1 tablet by mouth once daily (Patient taking differently: Take 20 mg by mouth 2 times daily ) 60 tablet 11 ??? gabapentin (NEURONTIN) 300 MG capsule Take 300 mg by mouth 3 times daily ??? isosorbide mononitrate CR 24hr (IMDUR) 30 MG tablet Take 1.5 tablets by mouth once daily 90 tablet 4 ??? PARoxetine (PAXIL) 10 MG tablet Take 10 mg by mouth once daily Procedures Procedures Lab/SPO2 Interpretation No results found for this visit on 02/01/20. XR CHEST 1VW PORTABLE (Results Pending) Progress Notes ED Course Clinical Impressions as of Jan 31 1947 Congestive heart failure, unspecified HF chronicity, unspecified heart failure type Medical Decision Making #Anasarca - DDx: likely multifactorial; CHF, pulmonary HTN, renal failure, cirrhosis. - ordered CMP and BNP Reassessment: renal function unchanged from previously, liver function wnl, BNP is 124 - could benefit from a formal echo - patient wants to be admitted for IV lasix and more workup ; he also says his symptoms have worsened to a point where he can't perform his job and endure standing for long #Shortness of breath - likely associated with swelling - DDx: pulmonary edema 2/2 CHF and/or renal failure - CXR unchanged from previous imaging and troponins are negative - benign EKG, suggestive of R heart strain Dispo: admit to medicine Wilmna Nelson, * Jimmy Reaves RN - 02/01/2020 7:32 PM CDT Report given to AVA Reed for care handoff. * Jimmy Reaves RN - 02/01/2020 6:11 PM CDT PBIBEMS for shortness of breath and BLE edema x4 days. Per EMS SPO2 on RA was 88%-EMS placed patient on 4L/NC-SPO2 then 100%. Patient reports h/o HTN, CHF, HLD and recent cardiac cath that showed possible pulm. HTN. * Sunshine Vargas RN - 02/01/2020 6:01 PM CDT Bed: [facility] Expected date: Expected time: Means of arrival: Comments: [place]: CHF exac, 4 liters, 94% documented in this encounter Plan of Treatment Not on file documented as of this encounter Procedures Procedure Name Priority Date/Time Associated Diagnosis Comments CBC W AUTO DIFFERENTIAL Routine 02/04/2020 5:18 AM CDT Congestive heart failure, unspecified HF chronicity, unspecified heart failure type (HCC) BASIC METABOLIC PANEL (CALCIUM TOTAL) Routine 02/04/2020 5:18 AM CDT Congestive heart failure, unspecified HF chronicity, unspecified heart failure type (HCC) XR CHEST 1VW Routine 02/04/2020 5:03 AM CDT Pleural effusion CBC W AUTO DIFFERENTIAL Routine 02/03/2020 4:02 AM CDT Congestive heart failure, unspecified HF chronicity, unspecified heart failure type (HCC) BASIC METABOLIC PANEL (CALCIUM TOTAL) Routine 02/03/2020 4:02 AM CDT Congestive heart failure, unspecified HF chronicity, unspecified heart failure type (HCC) CARDIAC EKG ORDER 02/02/2020 9:3 3 PM CDT PROTEIN URINE RANDOM QUANTITATIVE STAT 02/02/2020 8:47 AM CDT CREATININE URINE RANDOM STAT 02/02/2020 8:47 AM CDT BASIC METABOLIC PANEL (CALCIUM TOTAL) STAT 02/02/2020 4:36 AM CDT Congestive heart failure, unspecified HF chronicity, unspecified heart failure type (HCC) CBC W AUTO DIFFERENTIAL STAT 02/02/2020 4:34 AM CDT Congestive heart failure, unspecified HF chronicity, unspecified heart failure type (HCC) SARS-COV-2 (COVID-19) IN HOUSE STAT 02/02/2020 1:16 AM CDT XR CHEST 1VW PORTABLE STAT 02/01/2020 8:39 PM CDT Congestive heart failure, unspecified HF chronicity, unspecified heart failure type (HCC) EKG 12-LEAD Routine 02/01/2020 8:20 PM CDT Congestive heart failure, unspecified HF chronicity, unspecified heart failure type (HCC) TROPONIN I STAT 02/01/2020 8:14 PM CDT CBC W AUTO DIFFERENTIAL STAT 02/01/2020 8:14 PM CDT B-TYPE NATRIURETIC PEPTIDE STAT 02/01/2020 8:14 PM CDT COMPREHENSIVE METABOLIC PANEL STAT 02/01/2020 8:14 PM CDT documented in this encounter Results * (ABNORMAL) BASIC METABOLIC PANEL (CALCIUM TOTAL) (02/04/2020 5:18 AM CDT) BUN 28(H) 7 - 26 mg/dL 02/04/2020 6:18 AM [facility] Creatinine 1.4(H) 0.6 - 1.2 mg/dL 02/04/2020 6:18 AM [facility] Sodium 136 136 - 145 mmol/L 02/04/2020 6:18 AM [facility] Potassium 3.4(L) 3.5 - 4.5 mmol/L 02/04/2020 6:18 AM [facility] Chloride 96(L) 98 - 107 mmol/L 02/04/2020 6:18 AM [facility] CO2 34(H) 22 - 29 mmol/L 02/04/2020 6:18 AM [facility] Glucose 87 70 - 115 mg/dL 02/04/2020 6:18 AM [facility] Calcium 8.9 8.4 - 10.2 mg/dL 02/04/2020 6:18 AM [facility] Anion Gap 9 8 - 18 02/04/2020 6:18 AM [facility] BUN/Creatinine Ratio 20 7 - 23 02/04/2020 6:18 AM [facility] Osmolality Calculated 287 270 - 300 mOsm/kg 02/04/2020 6:18 AM [facility] eGFR 53(L) >60 mL/min/1.7 3 m2 02/04/2020 6:18 AM [facility] Blood BLOOD SPECIMEN / Unknown Lab Venipuncture / Unknown 02/04/2020 5:18 AM CDT 02/04/2020 5:45 AM CDT Ash Wayne MD LAB - CHEMISTRY ORD ERABLES [facility] [address] [place] [address], [facility] [phone] * (ABNORMAL) CBC W AUTO DIFFERENTIAL (02/04/2020 5:18 AM CDT) WBC 9.0 3.5 - 10.5 10? 3 /uL 02/04/2020 5:59 AM [facility] RBC 4.54 4.30 - 5.70 10? 6 /uL 02/04/2020 5:59 AM [facility] Hemoglobin 12.7(L) 13.5 - 17.5 g/dL 02/04/2020 5:59 AM [facility] Hematocrit 40.7 39.0 - 50.0 % 02/04/2020 5:59 AM [facility] MCV 89.6 81.0 - 97.0 fL 02/04/2020 5:59 AM [facility] MCH 28.0 28.0 - 34.0 pg 02/04/2020 5:59 AM [facility] MCHC 31.2(L) 32.0 - 36.0 g/dL 02/04/2020 5:59 AM [facility] Platelet Count 235 150 - 400 10? 3 /uL 02/04/2020 5:59 AM [facility] RDW-SD 47.8 36.0 - 50.0 fL 02/04/2020 5:59 AM [facility] RDW-CV 14.6 11.2 - 14.8 % 02/04/2020 5:59 AM [facility] MPV 11.9 9.3 - 12.8 fL 02/04/2020 5:59 AM [facility] nRBC Absolute 0.00 0 10? 3 /uL 02/04/2020 5:59 AM [facility] nRBC Auto 0.0 0 /100 WBC 02/04/2020 5:59 AM [facility] Neutrophils % 57.5 35.0 - 70.0 % 02/04/2020 5:59 AM [facility] Lymphocytes % 27.4 19.7 - 55.1 % 02/04/2020 5:59 AM [facility] Monocytes % 8.4 3.0 - 15.0 % 02/04/2020 5:59 AM [facility] Eosinophils % 6.1(H) 0.0 - 6.0 % 02/04/2020 5:59 AM [facility] Basophil % 0.4 0.0 - 1.5 % 02/04/2020 5:59 AM [facility] Neutrophils Absolute 5.2 1.6 - 7.0 10? 3 /uL 02/04/2020 5:59 AM [facility] Lymphocyte Absolute 2.5 0.8 - 2.9 10? 3 /uL 02/04/2020 5:59 AM [facility] Monocytes Absolute 0.76(H) 0.14 - 0.66 10? 3 /uL 02/04/2020 5:59 AM [facility] Eosinophils Absolute 0.55(H) 0.00 - 0.45 10? 3 /uL 02/04/2020 5:59 AM [facility] Basophils Absolute 0.04 0.00 - 0.06 10? 3 /uL 02/04/2020 5:59 AM [facility] Immature Granulocytes % 0.2 0.0 - 1.0 % 02/04/2020 5:59 AM [facility] Blood BLOOD SPECIMEN / Unknown Lab Venipuncture / Unknown 02/04/2020 5:18 AM CDT 02/04/2020 5:48 AM CDT Ash Wayne MD LAB - HEMATOLOGY OR DERABLES [address] [address], [facility] [phone] * XR CHEST 1VW (02/04/2020 5:03 AM [...] pleural effusion. Dictated by Freya Chowdhury MD (head resident). IDr. SELIN M.D. have personally reviewed and interpreted this examination/study. This report was electronically signed by SELIN BENÍTEZ M.D. ??on 02/04/2020 9:52 AM . Narrative 02/04/2020 9:52 AM CDT EXAMINATION: XR CHEST 1VW HISTORY: The study is ordered to reevaluate left pleural effusion COMPARISON: Portable chest x-ray dated 02/01/2020 Procedure Note Selin Benítez MD - 02/04/2020 EXAMINATION: XR CHEST 1VW [...] pleural effusion. Dictated by Freya Chowdhury MD (head resident). I, Dr. SELIN BENÍTEZ M.D. have personally reviewed and interpreted this examination/study. This report was electronically signed by SELIN BENÍTEZ M.D. on 02/04/2020 9:52 AM . Raul Gonzalez MD DIAGNOSTIC IMAGING O RDERABLES * (ABNORMAL) BASIC METABOLIC PANEL (CALCIUM TOTAL) (02/03/2020 4:02 AM CDT) BUN 28(H) 7 - 26 mg/dL 02/03/2020 4:38 AM [facility] Creatinine 1.5(H) 0.6 - 1.2 mg/dL 02/03/2020 4:38 AM [facility] Sodium 138 136 - 145 mmol/L 02/03/2020 4:38 AM [facility] Potassium 3.5 3.5 - 4.5 mmol/L 02/03/2020 4:38 AM [facility] Chloride 97(L) 98 - 107 mmol/L 02/03/2020 4:38 AM [facility] CO2 33(H) 22 - 29 mmol/L 02/03/2020 4:38 AM [facility] Glucose 86 70 - 115 mg/dL 02/03/2020 4:38 AM [facility] Calcium 9.0 8.4 - 10.2 mg/dL 02/03/2020 4:38 AM [facility] Anion Gap 12 8 - 18 02/03/2020 4:38 AM [facility] BUN/Creatinine Ratio 19 7 - 23 02/03/2020 4:38 AM [facility] Osmolality Calculated 291 270 - 300 mOsm/kg 02/03/2020 4:38 AM [facility] eGFR 49(L) >60 mL/min/1.7 3 m2 02/03/2020 4:38 AM [facility] Blood BLOOD SPECIMEN / Unknown Lab Venipuncture / Unknown 02/03/2020 4:02 AM CDT 02/03/2020 4:08 AM T Ash Wayne MD LAB - CHEMISTRY ORD ERABLES [address] [address], [facility] [phone] * (ABNORMAL) CBC W AUTO DIFFERENTIAL (02/03/2020 4:02 AM CDT) WBC 9.5 3.5 - 10.5 10? 3 /uL 02/03/2020 4:22 AM [facility] RBC 4.20(L) 4.30 - 5.70 10? 6 /uL 02/03/2020 4:22 AM [facility] Hemoglobin 12.1(L) 13.5 - 17.5 g/dL 02/03/2020 4:22 AM [facility] Hematocrit 37.8(L) 39.0 - 50.0 % 02/03/2020 4:22 AM [facility] MCV 90.0 81.0 - 97.0 fL 02/03/2020 4:22 AM [facility] MCH 28.8 28.0 - 34.0 pg 02/03/2020 4:22 AM [facility] MCHC 32.0 32.0 - 36.0 g/dL 02/03/2020 4:22 AM [facility] Platelet Count 220 150 - 400 10? 3 /uL 02/03/2020 4:22 AM [facility] RDW-SD 48.1 36.0 - 50.0 fL 02/03/2020 4:22 AM [facility] RDW-CV 14.7 11.2 - 14.8 % 02/03/2020 4:22 AM [facility] MPV 11.8 9.3 - 12.8 fL 02/03/2020 4:22 AM [facility] nRBC Absolute 0.00 0 10? 3 /uL 02/03/2020 4:22 AM [facility] nRBC Auto 0.0 0 /100 WBC 02/03/2020 4:22 AM [facility] Neutrophils % 55.9 35.0 - 70.0 % 02/03/2020 4:22 AM [facility] Lymphocytes % 28.3 19.7 - 55.1 % 02/03/2020 4:22 AM [facility] Monocytes % 8.6 3.0 - 15.0 % 02/03/2020 4:22 AM [facility] Eosinophils % 6.5(H) 0.0 - 6.0 % 02/03/2020 4:22 AM [facility] Basophil % 0.5 0.0 - 1.5 % 02/03/2020 4:22 AM [facility] Neutrophils Absolute 5.3 1.6 - 7.0 10? 3 /uL 02/03/2020 4:22 AM [facility] Lymphocyte Absolute 2.7 0.8 - 2.9 10? 3 /uL 02/03/2020 4:22 AM [facility] Monocytes Absolute 0.81(H) 0.14 - 0.66 10? 3 /uL 02/03/2020 4:22 AM [facility] Eosinophils Absolute 0.62(H) 0.00 - 0.45 10? 3 /uL 02/03/2020 4:22 AM [facility] Basophils Absolute 0.05 0.00 - 0.06 10? 3 /uL 02/03/2020 4:22 AM [facility] Immature Granulocytes % 0.2 0.0 - 1.0 % 02/03/2020 4:22 AM [facility] Blood BLOOD SPECIMEN / Unknown Lab Venipuncture / Unknown 02/03/2020 4:02 AM CDT 02/03/2020 4:08 AM CDT Ash Wayne MD LAB - HEMATOLOGY OR DERABLES Performing Organization Address [facility] Co de Phone Number [facility] [address] [place] [address], [facility] [phone] * CARDIAC EKG ORDER (02/02/2020 9:33 PM CDT) Narrative 02/02/2020 9:33 PM CDT Ordered by an unspecified provider. Scanned Document CARDIAC SERVICES ORD ERABLES * CREATININE URINE RANDOM (02/02/2020 8:47 AM CDT) Creatinine Urine 45 Not Established mg/dL 02/02/2020 9:35 AM T [facility] Comment:Result obtained by césar hardy. Urine URINE SPECIMEN OBTAINED BY CLEAN CATCH PROCEDURE / Unknown Collection / Unknown 02/02/2020 8:47 AM CDT 02/02/2020 9:07 AM CDT Raul Gonzalez MD LAB - URINE CHEMISTR Y ORDERABLES Performing Organization Address City/[facility]/ZIP Co de Phone Number [address] [address], [facility] [phone] * PROTEIN URINE RANDOM QUANTITATIVE (02/02/2020 8:47 AM CDT) Protein Urine 27 Not Established mg/dL 02/02/2020 9:35 AM CDT [facility] Urine URINE SPECIMEN OBTAINED BY CLEAN CATCH PROCEDURE / Unknown Collection / Unknown 02/02/2020 8:47 AM CDT 02/02/2020 9:07 AM CDT Raul Gonzalez MD LAB - URINE CHEMISTR Y ORDERABLES Performing Organization Address City/[facility]/ZIP Co de Phone Number [address] [address], [facility] [phone] * (ABNORMAL) BASIC METABOLIC PANEL (CALCIUM TOTAL) (02/02/2020 4:36 AM CDT) BUN 27(H) 7 - 26 mg/dL 02/02/2020 5:16 AM [facility] Creatinine 1.4(H) 0.6 - 1.2 mg/dL 02/02/2020 5:16 AM [facility] Sodium 138 136 - 145 mmol/L 02/02/2020 5:16 AM [facility] Potassium 3.9 3.5 - 4.5 mmol/L 02/02/2020 5:16 AM [facility] Chloride 98 98 - 107 mmol/L 02/02/2020 5:16 AM [facility] CO2 34(H) 22 - 29 mmol/L 02/02/2020 5:16 AM [facility] Glucose 81 70 - 115 mg/dL 02/02/2020 5:16 AM [facility] Calcium 9.0 8.4 - 10.2 mg/dL 02/02/2020 5:16 AM [facility] Anion Gap 10 8 - 18 02/02/2020 5:16 AM [facility] BUN/Creatinine Ratio 19 7 - 23 02/02/2020 5:16 AM [facility] Osmolality Calculated 290 270 - 300 mOsm/kg 02/02/2020 5:16 AM [facility] eGFR 53(L) >60 mL/min/1.7 3 m2 02/02/2020 5:16 AM [facility] Blood BLOOD SPECIMEN / Unknown Venipuncture / Unknown 02/02/2020 4:36 AM CDT 02/02/2020 4:51 AM T Ash Wayne MD LAB - CHEMISTRY ORD ERABLES [facility] [address] [place] [address], [facility] [phone] * (ABNORMAL) CBC W AUTO DIFFERENTIAL (02/02/2020 4:34 AM T) WBC 11.6(H) 3.5 - 10.5 10? 3 /uL 02/02/2020 5:04 AM [facility] RBC 4.13(L) 4.30 - 5.70 10? 6 /uL 02/02/2020 5:04 AM [facility] Hemoglobin 11.7(L) 13.5 - 17.5 g/dL 02/02/2020 5:04 AM [facility] Hematocrit 37.7(L) 39.0 - 50.0 % 02/02/2020 5:04 AM [facility] MCV 91.3 81.0 - 97.0 fL 02/02/2020 5:04 AM [facility] MCH 28.3 28.0 - 34.0 pg 02/02/2020 5:04 AM [facility] MCHC 31.0(L) 32.0 - 36.0 g/dL 02/02/2020 5:04 AM [facility] Platelet Count 245 150 - 400 10? 3 /uL 02/02/2020 5:04 AM [facility] RDW-SD 49.7 36.0 - 50.0 fL 02/02/2020 5:04 AM [facility] RDW-CV 14.9(H) 11.2 - 14.8 % 02/02/2020 5:04 AM [facility] MPV 11.8 9.3 - 12.8 fL 02/02/2020 5:04 AM [facility] nRBC Absolute 0.00 0 10? 3 /uL 02/02/2020 5:04 AM [facility] nRBC Auto 0.0 0 /100 WBC 02/02/2020 5:04 AM [facility] Neutrophils % 58.7 35.0 - 70.0 % 02/02/2020 5:04 AM [facility] Lymphocytes % 25.4 19.7 - 55.1 % 02/02/2020 5:04 AM [facility] Monocytes % 9.1 3.0 - 15.0 % 02/02/2020 5:04 AM [facility] Eosinophils % 6.0 0.0 - 6.0 % 02/02/2020 5:04 AM [facility] Basophil % 0.5 0.0 - 1.5 % 02/02/2020 5:04 AM [facility] Neutrophils Absolute 6.8 1.6 - 7.0 10? 3 /uL 02/02/2020 5:04 AM [facility] Lymphocyte Absolute 3.0(H) 0.8 - 2.9 10? 3 /uL 02/02/2020 5:04 AM [facility] Monocytes Absolute 1.06(H) 0.14 - 0.66 10? 3 /uL 02/02/2020 5:04 AM [facility] Eosinophils Absolute 0.70(H) 0.00 - 0.45 10? 3 /uL 02/02/2020 5:04 AM [facility] Basophils Absolute 0.06 0.00 - 0.06 10? 3 /uL 02/02/2020 5:04 AM [facility] Immature Granulocytes % 0.3 0.0 - 1.0 % 02/02/2020 5:04 AM [facility] Blood BLOOD SPECIMEN / Unknown Venipuncture / Unknown 02/02/2020 4:34 AM CDT 02/02/2020 4:51 AM CDT Ash Wayne MD LAB - HEMATOLOGY OR DERABLES [facility] [address] [facility] [place] [address], [facility] [phone] * SARS-COV-2 (COVID-19) IN HOUSE (02/02/2020 1:16 AM CDT) COVID-19 PCR Not detected Not detected, Invalid 02/03/2020 5:58 AM CDT [facility] Microbiology SPECIMEN FROM NASOPHARYNGEAL STRUCTURE / Unknown Collection / Unknown 02/02/2020 1:16 AM CDT 02/02/2020 1:35 AM CDT Narrative [facility] - 02/03/2020 5:58 AM CDT This Real Time RT-PCR assay was developed and its performance characteristics determined by [facility]. This test has been authorized [...] Anusha Hinds MD LAB - MICROBIOLOGY ORDERABLES [facility] [address] [place] [address], [facility] [phone] * XR CHEST 1VW PORTABLE (02/01/2020 8:39 PM CDT) Anatomical Region Laterality Modality Chest Radiographic Maribel ging 02/01/2020 10:1 7 PM CDT Impressions 02/03/2020 9:52 AM CDT FINDINGS/IMPRESSION: There is interval worsening of small to moderate left pleural effusion with associated left lower lobe atelectasis. Streaky/linear retrocardiac opacities may represent subsegmental atelectasis and/or airspace disease. Slight prominence of interstitial markings. There is no right pleural effusion, or pneumothorax. The cardiomediastinal silhouette is normal. Dictated by Roshan Whittaker MD (head resident). Dr. HARRISON Resendiz have personally reviewed and interpreted this examination/study. This report was electronically signed by HARRISON SANDHU ??on 02/03/2020 9:52 AM . Narrative 02/03/2020 9:52 AM CDT EXAMINATION: XR CHEST 1VW PORTABLE HISTORY: I50.9: Congestive heart failure, unspecified HF chronicity, unspecified heart failure type COMPARISON: 06/10/2019 Procedure Note Harrison Sandhu DO - 02/03/2020 EXAMINATION: XR CHEST 1VW PORTABLE HISTORY: I50.9: Congestive heart failure, unspecified HF chronicity, unspecified heart failure type COMPARISON: 06/10/2019 FINDINGS/IMPRESSION: There is interval worsening of small to moderate left pleural effusion with associated left lower lobe atelectasis. Streaky/linear retrocardiac opacities may represent subsegmental atelectasis and/or airspacedisease. Slight prominence of interstitial markings. There is no right pleural effusion, or pneumothorax. Thecardiomediastinal silhouette is normal. Dictated by Roshan Whittaker MD (head resident). Dr. HARRSION Resendiz have personally reviewed and interpreted this examination/study. This report was electronically signed by HARRISON SANDHU on 02/03/2020 9:52 AM . Anusha Hinds MD DIAGNOSTIC IMAGING ORDERABLES * EKG 12-LEAD (02/01/2020 8:20 PM CDT) Ventricular Rate 63 BPM [facility] MUSE Atrial Rate 63 BPM [facility] P-R Interval 154 ms [facility] QRS Duration ms 110 ms [facility] Q-T Interval ms 456 ms [facility] QTC Calculation (Bezet) 466 ms [facility] Calculated P Canadian 56 degrees [facility] Calculated R Canadian 46 degrees [facility] Calculated T Canadian 37 degrees [facility] Interpretation EKG NORMAL SINUS RHYTHM POSSIBLE LEFT ATRIAL ENLARGEMENT BORDERLINE ECG WHEN COMPARED WITH ECG OF 03-NOV-2019 22:17, NO SIGNIFICANT CHANGE WAS FOUND Confirmed by Luis Wylie ([id number]) on 03/08/2020 11:09:19 PM [facility] 02/01/2020 8:20 PM CDT 03/08/2020 11:09 PM CDT Anusha Hinds MD ECG ORDERABLES [facility] * (ABNORMAL) B-TYPE NATRIURETIC PEPTIDE (02/01/2020 8:14 PM CDT) BNP 124(H) See Comment pg/mL 02/01/2020 9:03 PM CDT [facility] Comment: * Disclaimer: BNP results may be falsely high by 20% due * * to shift observed secondary to new reagent lot. Lab ?* * working with voice pathologist to resolve. ?* * ?* * Please contact [facility] Speech Correction Consultant with any questions ??* A decision threshold of 100 pg/mL has [...] BLOOD SPECIMEN / Unknown Venipuncture / Unknown 02/01/2020 8:14 PM CDT 02/01/2020 6:13 PM CDT Anusha Hinds MD LAB - CHEMISTRY OR DERABLES [facility] [address] [place] [address], [facility] [phone] * TROPONIN I (02/01/2020 8:14 PM CDT) [facility] Troponin I 0.013 <0.032 ng/mL 02/01/2020 9:03 PM [facility] Blood BLOOD SPECIMEN / Unknown Venipuncture / Unknown 02/01/2020 8:14 PM CDT 02/01/2020 6:13 PM CDT Anusha Hinds MD LAB - CHEMISTRY OR DERABLES [facility] [address] [place] [address], [facility] [phone] * (ABNORMAL) COMPREHENSIVE METABOLIC PANEL (02/01/2020 8:14 PM CDT) [facility] BUN 30(H) 7 - 26 mg/dL 02/01/2020 8:56 PM [facility] Creatinine 1.5(H) 0.6 - 1.2 mg/dL 02/01/2020 8:56 PM [facility] Sodium 139 136 - 145 mmol/L 02/01/2020 8:56 PM [facility] Potassium 4.0 3.5 - 4.5 mmol/L 02/01/2020 8:56 PM [facility] Chloride 98 98 - 107 mmol/L 02/01/2020 8:56 PM [facility] CO2 35(H) 22 - 29 mmol/L 02/01/2020 8:56 PM [facility] Glucose 82 70 - 115 mg/dL 02/01/2020 8:56 PM [facility] Calcium 9.3 8.4 - 10.2 mg/dL 02/01/2020 8:56 PM [facility] Protein Total 7.5 6.0 - 8.3 g/dL 02/01/2020 8:56 PM [facility] Albumin 2.9(L) 3.4 - 5.0 g/dL 02/01/2020 8:56 PM [facility] Bilirubin Total 0.7 0.2 - 1.2 mg/dL 02/01/2020 8:56 PM [facility] Alkaline Phosphatase 97 40 - 150 Units/L 02/01/2020 8:56 PM [facility] ALT 32 0 - 55 Units/L 02/01/2020 8:56 PM [facility] AST 28 5 - 34 Units/L 02/01/2020 8:56 PM [facility] Anion Gap 10 8 - 18 02/01/2020 8:56 PM [facility] BUN/Creatinine Ratio 20 7 - 23 02/01/2020 8:56 PM [facility] Osmolality Calculated 293 270 - 300 mOsm/kg 02/01/2020 8:56 PM [facility] Albumin/Globulin Ratio 0.6(L) 1.1 - 2.3 02/01/2020 8:56 PM [facility] eGFR 49(L) >60 mL/min/1.7 3 m2 02/01/2020 8:56 PM [facility] Blood BLOOD SPECIMEN / Unknown Venipuncture / Unknown 02/01/2020 8:14 PM CDT 02/01/2020 6:13 PM CDT Anusha Hinds MD LAB - CHEMISTRY OR DERABLES Performing Organization Address City/State/[facility] Co de Phone Number [facility] [address] [place] [address], [facility] [phone] * (ABNORMAL) CBC W AUTO DIFFERENTIAL (02/01/2020 8:14 PM CDT) WBC 12.4(H) 3.5 - 10.5 10? 3 /uL 02/01/2020 8:56 PM [facility] RBC 4.43 4.30 - 5.70 10? 6 /uL 02/01/2020 8:56 PM [facility] Hemoglobin 12.4(L) 13.5 - 17.5 g/dL 02/01/2020 8:56 PM [facility] Hematocrit 40.3 39.0 - 50.0 % 02/01/2020 8:56 PM [facility] MCV 91.0 81.0 - 97.0 fL 02/01/2020 8:56 PM [facility] MCH 28.0 28.0 - 34.0 pg 02/01/2020 8:56 PM [facility] MCHC 30.8(L) 32.0 - 36.0 g/dL 02/01/2020 8:56 PM [facility] Platelet Count 257 150 - 400 10? 3 /uL 02/01/2020 8:56 PM [facility] RDW-SD 49.5 36.0 - 50.0 fL 02/01/2020 8:56 PM [facility] RDW-CV 14.9(H) 11.2 - 14.8 % 02/01/2020 8:56 PM [facility] MPV 11.9 9.3 - 12.8 fL 02/01/2020 8:56 PM [facility] nRBC Absolute 0.00 0 10? 3 /uL 02/01/2020 8:56 PM [facility] nRBC Auto 0.0 0 /100 WBC 02/01/2020 8:56 PM [facility] Neutrophils % 65.9 35.0 - 70.0 % 02/01/2020 8:56 PM [facility] Lymphocytes % 20.9 19.7 - 55.1 % 02/01/2020 8:56 PM [facility] Monocytes % 7.9 3.0 - 15.0 % 02/01/2020 8:56 PM [facility] Eosinophils % 4.6 0.0 - 6.0 % 02/01/2020 8:56 PM [facility] Basophil % 0.4 0.0 - 1.5 % 02/01/2020 8:56 PM [facility] Neutrophils Absolute 8.1(H) 1.6 - 7.0 10? 3 /uL 02/01/2020 8:56 PM [facility] Lymphocyte Absolute 2.6 0.8 - 2.9 10? 3 /uL 02/01/2020 8:56 PM [facility] Monocytes Absolute 0.97(H) 0.14 - 0.66 10? 3 /uL 02/01/2020 8:56 PM [facility] Eosinophils Absolute 0.57(H) 0.00 - 0.45 10? 3 /uL 02/01/2020 8:56 PM CDT [facility] Basophils Absolute 0.05 0.00 - 0.06 10? 3 /uL 02/01/2020 8:56 PM CDT [facility] Immature Granulocytes % 0.3 0.0 - 1.0 % 02/01/2020 8:56 PM CDT [facility] Blood BLOOD SPECIMEN / Unknown Venipuncture / Unknown 02/01/2020 8:14 PM CDT 02/01/2020 6:13 PM CDT Anusha Hinds MD LAB - HEMATOLOGY O RDERABLES [facility] [address] [place] [address], [facility] [phone] documented in this encounter Visit Diagnoses Diagnosis Pulmonary hypertension (HCC)- Primary Other chronic pulmonary heart diseases Congestive heart failure, unspecified HF chronicity, unspecified heart failure type (HCC) Pulmonary hypertension (HCC) Other chronic pulmonary heart diseases Morbid obesity (HCC) Morbid obesity Pleural effusion Unspecified pleural effusion Encounter for screening for other viral diseases Congestive heart failure (HCC) Congestive heart failure, unspecified Morbid obesity (HCC) Morbid obesity documented in this encounter Administered Medications Inactive Administered Medications - up to 3 most recent administrations Medication Order MAR Action Action Date Dose Rate Site 0.9% NaCl injection 1-10 mL 1-10 mL, Intracatheter, PRN, Other, peripheral line flush, Starting on Tue02/01/20 at 2323, Until Tue02/04/20 at 1127, Flush peripheral IV catheter with 1-10 mL of normal saline before and after medications and prn to clear blood from the line or to verify patency. $ Given 02/03/2020 5:35 PM CDT 10 mL 0.9% NaCl injection 3 mL 3 mL, Intracatheter, EVERY 8 HOURS, First dose on 02/02/20 at 0600, Until Discontinued, Flush peripheral IV catheter with 3 mL of normal saline every 8 hours. $ Given 02/04/2020 6:30 AM CDT 3 mL $ Given 02/03/2020 9:21 PM CDT 3 mL $ Given 02/03/2020 1:15 PM CDT 3 mL acetaminophen (TYLENOL) tablet 650 mg 650 mg, Oral, EVERY 6 HOURS, 20 doses, First dose on Tue02/02/20 at 0000, Last dose on Tue02/06/20 at 1800 $ Given 02/04/2020 6:29 AM CDT 650 mg $ Given 02/03/2020 5:35 PM CDT 650 mg $ Given 02/03/2020 1:14 PM CDT 650 mg allopurinol (ZYLOPRIM) tablet 100 mg 100 mg, Oral, 2 TIMES DAILY, First dose on 02/02/20 at 0900, Until Discontinued $ Given 02/04/2020 9:31 AM CDT 100 mg $ Given 02/03/2020 9:20 PM CDT 100 mg $ Given 02/03/2020 9:31 AM CDT 100 mg amLODIPine (NORVASC) tablet 5 mg 5 mg, Oral, DAILY, First dose on 02/02/20 at 0900, Until Discontinued $ Given 02/04/2020 9:31 AM CDT 5 mg $ Given 02/03/2020 9:31 AM CDT 5 mg $ Given 02/02/2020 8:33 AM CDT 5 mg atorvastatin (LIPITOR) tablet 40 mg 40 mg, Oral, AT BEDTIME, First dose on 02/02/20 at 2100, Until Discontinued $ Given 02/03/2020 9:20 PM CDT 40 mg $ Given 02/02/2020 8:47 PM CDT 40 mg bumetanide (BUMEX) injection 2 mg 2 mg, Intravenous, ONCE, 1 dose, On Tue02/01/20 at 2245 $ Given 02/01/2020 11:05 PM CDT 2 mg carvedilol (COREG) tablet 25 mg 25 mg, Oral, 2 TIMES DAILY WITH MEALS, First dose on 02/02/20 at 0800, Until Discontinued, Take with food $ Given 02/04/2020 9:31 AM CDT 25 mg $ Given 02/03/2020 5:35 PM CDT 25 mg $ Given 02/03/2020 9:31 AM CDT 25 mg enoxaparin (LOVENOX) injection 40 mg 40 mg, Subcutaneous, DAILY, First dose on 02/02/20 at 0900, Until Discontinued, (for prefilled syringes) do not expel air bubble from the syringe prior to the injection Remind Patient to not rub injection site. Could cause hematoma. $ Given 02/04/2020 9:30 AM CDT 40 mg Ab dominal Tissue $ Given 02/03/2020 9:31 AM CDT 40 mg Ab dominal Tissue $ Given 02/02/2020 8:34 AM CDT 40 mg Ab d Right Lower Quadrant furosemide (LASIX) injection 40 mg 40 mg, Intravenous, 2 TIMES DAILY, First dose on 02/02/20 at 0900, Until Discontinued $ Given 02/02/2020 5:50 PM CDT 40 mg $ Given 02/02/2020 8:34 AM CDT 40 mg furosemide (LASIX) tablet 80 mg 80 mg, Oral, 2 TIMES DAILY, First dose on 02/03/20 at 0915, Until Discontinued $ Given 02/04/2020 9:31 AM CDT 80 m g $ Given 02/03/2020 5:35 PM CDT 80 mg $ Given 02/03/2020 9:31 AM CDT 80 mg gabapentin (NEURONTIN) capsule 300 mg 300 mg, Oral, 3 TIMES DAILY, First dose on 02/02/20 at 0900, Until Discontinued $ Given 02/04/2020 9:30 AM CDT 300 mg $ Given 02/03/2020 9:20 PM CDT 300 mg $ Given 02/03/2020 1:04 PM CDT 300 mg isosorbide mononitrate CR 24hr (IMDUR) tablet 45 mg 45 mg, Oral, DAILY, First dose on 02/02/20 at 0900, Until Discontinued, May cut in half but do not crush or chew $ Given 02/04/2020 9:31 AM CDT 45 mg $ Given 02/03/2020 9:31 AM CDT 45 mg $ Given 02/02/2020 8:34 AM CDT 45 mg PARoxetine (PAXIL) tablet 10 mg 10 mg, Oral, DAILY, First dose on 02/02/20 at 0900, Until Discontinued $ Given 02/04/2020 9:31 AM CDT 10 mg $ Given 02/03/2020 9:31 AM CDT 10 mg $ Given 02/02/2020 8:34 AM CDT 10 mg potassium chloride ER (KLOR-CON M) tablet 40 mEq 40 mEq, Oral, ONCE, 1 dose, On 02/04/20 at 0800, Do not crush or chew. $ Given 02/04/2020 9:30 AM CDT 40 mEq documented in this encounter Active and Recently Administered Medications Times are shown in CDT. Scheduled Medication Order 02/02/2020 02/03/2020 02/04/2020 0.9% NaCl injection 3 mL(Linked Group 1) 3 mL, Intracatheter, EVERY 8 HOURS, First dose on 02/02/20 at 0600, Until Discontinued, Flush peripheral IV catheter with 3 mL of normal saline every 8 hours. 0647 ($ Given - Provider: Leonardo Marin RN)1441 ($ Given - Provider: Vanessa Meyers RN)2047 ($ Given - Provider: Sunshine Marina RN) 0546 (Not Administered - Provider: Sunshine Marina RN - Reason: Patient sleeping)1315 ($ Given - Provider: Zenaida Wells RN)2121 ($ Given - Provider: Eda Rocha RN) 0630 ($ Given - Provider: Eda Rocha RN) acetaminophen (TYLENOL) tablet 650 mg 650 mg, Oral, EVERY 6 HOURS, 20 doses, First dose on 02/02/20 at 0000, Last dose on Tue02/06/20 at 1800 0040 ($ Given - Provider: Leonardo Marin RN)0644 ($ Given - Provider: Leonardo Marin RN)1203 ($ Given - Provider: Vanessa Meyers RN)1750 ($ Given - Provider: Maria Del Rosario Barros RN) 0022 ($ Given - Provider: Sunshine Marina RN)0546 (Not Administered - Provider: Sunshine Marina RN - Reason: Patient sleeping)1314 ($ Given - Provider: Zenaida Wells RN)1735 ($ Given - Provider: Zenaida Wells RN) 0034 (Not Administered - Provider: Eda Rocha RN - Reason: Refused-Patient)0629 ($ Given - Provider: Eda Rocha, AVA) allopurinol (ZYLOPRIM) tablet 100 mg 100 mg, Oral, 2 TIMES DAILY, First dose on 02/02/20 at 0900, Until Discontinued 0833 ($ Given - Provider: Vanessa Meyers RN)2047 ($ Given - Provider: Sunshine Marina RN) 0931 ($ Given - Provider: Zenaida Wells RN)2120 ($ Given - Provider: Eda Rocha, AVA) 09 ($ Given - Provider: Nola Scherer, RN) amLODIPine (NORVASC) tablet 5 mg 5 mg, Oral, DAILY, First dose on 02/02/20 at 0900, Until Discontinued 0833 ($ Given - Provider: Vanessa Meyers RN) 0931 ($ Given - Provider: Zenaida Wells, AVA) 0931 ($ Given - Provider: Nola Scherer, RN) atorvastatin (LIPITOR) tablet 40 mg 40 mg, Oral, AT BEDTIME, First dose on 02/02/20 at 2100, Until Discontinued 2046 ($ Given - Provider: Sunshine Marina RN) 2119 ($ Given - Provider: Eda Rocha, AVA) carvedilol (COREG) tablet 25 mg 25 mg, Oral, 2 TIMES DAILY WITH MEALS, First dose on 02/02/20 at 0800, Until Discontinued, Take with food 0833 ($ Given - Provider: Vanessa Meyers RN)1750 ($ Given - Provider: Maria Del Rosario Barros, AVA) 09 ($ Given - Provider: Zenaida Wells, AVA)1735 ($ Given - Provider: Zenaida Wells, AVA) 09 ($ Given - Provider: Nola Scherer, AVA) enoxaparin (LOVENOX) injection 40 mg 40 mg, Subcutaneous, DAILY, First dose on 02/02/20 at 0900, Until Discontinued, (for prefilled syringes) do not expel air bubble from the syringe prior to the injection Remind Patient to not rub injection site. Could cause hematoma. 0834 ($ Given - Provider: Vanessa Meyers RN) 0931 ($ Given - Provider: Zenaida Wells, AVA) 0930 ($ Given - Provider: Nola Scherer, RN) furosemide (LASIX) injection 40 mg (CANCELED) 40 mg, Intravenous, 2 TIMES DAILY, First dose on 02/02/20 at 0900, Until Discontinued 0834 ($ Given - Provider: Vanessa Meyers RN)1750 ($ Given - Provider: Maria Del Rosario Barros RN) furosemide (LASIX) tablet 80 mg 80 mg, Oral, 2 TIMES DAILY, First dose on 02/02/20 at 0915, Until Discontinued 0931 ($ Given - Provider: Zenaida Wells RN)1735 ($ Given - Provider: Zenaida Wells RN) 0931 ($ Given - Provider: Nola Scherer, AVA) gabapentin (NEURONTIN) capsule 300 mg 300 mg, Oral, 3 TIMES DAILY, First dose on 02/02/20 at 0900, Until Discontinued 0833 ($ Given - Provider: Vanessa Meyers RN)1441 ($ Given - Provider: Vanessa Meyers RN)2047 ($ Given - Provider: Sunshine Marina RN) 0931 ($ Given - Provider: Zenaida Wells, AVA)1304 ($ Given - Provider: Zenaida Wells RN)2120 ($ Given - Provider: Eda Rocha RN) 0930 ($ Given - Provider: Nola Scherer, AVA) isosorbide mononitrate CR 24hr (IMDUR) tablet 45 mg 45 mg, Oral, DAILY, First dose on 02/02/20 at 0900, Until Discontinued, May cut in half but do not crush or chew 0834 ($ Given - Provider: Vanessa Meyers RN) 0931 ($ Given - Provider: Zenaida Wells RN) 0931 ($ Given - Provider: Nola Scherer, AVA) PARoxetine (PAXIL) tablet 10 mg 10 mg, Oral, DAILY, First dose on 02/02/20 at 0900, Until Discontinued 0834 ($ Given - Provider: Vanessa Meyers RN) 0931 ($ Given - Provider: Zenaida Wells, AVA) 0931 ($ Given - Provider: Nola Scherer, RN) potassium chloride ER (KLOR-CON M) tablet 40 mEq (COMPLETED) 40 mEq, Oral, ONCE, 1 dose, On 02/04/20 at 0800, Do not crush or chew. 0930 ($ Given - Provider: Nola Scherer, AVA) PRN Medication Order 02/02/2020 02/03/2020 02/04/2020 0.9% NaCl injection 1-10 mL(Linked Group 1) 1-10 mL, Intracatheter, PRN, Other, peripheral line flush, Starting on Tue02/01/20 at 2323, Until Tue02/04/20 at 1127, Flush peripheral IV catheter with 1-10 mL of normal saline before and after medications and prn to clear blood from the line or to verify patency. 1735 ($ Given - Provider: Jeana Wells, RN) Linked Groups Order Group 1: SALINE LOCK, INSERT AND MAINTAIN (CANCELED) Routine, CONTINUOUS, Starting on Tue02/01/20 at 2330, Until Specified, New collection And 0.9% NaCl injection 3 mLJump to med 3 mL, Intracatheter, EVERY 8 HOURS, First dose on Tue02/02/20 at 0600, Until Discontinued, Flush peripheral IV catheter with 3 mL of normal saline every 8 hours. And 0.9% NaCl injection 1-10 mLJump to med 1-10 mL, Intracatheter, PRN, Other, peripheral line flush, Starting on Tue02/01/20 at 2323, Until Tue02/04/20 at 1127, Flush peripheral IV catheter with 1-10 mL of normal saline before and after medications and prn to clear blood from the line or to verify patency. 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
--- OUTSIDE RECORDS SUMMARY | 2024-05-22 05:42 | XMS_ITS | Encounter Summary ---
Author Organization [facility] Health Address [address] [facility] [place] [address] Care Team Providers Care Offset Platemaker Name Role Phone Natasha Bates PA-C Primary Care Provider + Reason for Visit * Reason Onset Date Comments Forms 05/07/2020 Encounter Details Date Type Department Care Team (Late st Contact Info) Description 05/07/2020 Telephone [facility] Pulmonary, Critical Care and Sleep Medicine [address] [facility] [place] [address] Jesus Welch MD [address] [place] [address] Forms Social History Tobacco Use Types Packs/Day Years [...] COVID-19? No / Unsure 04/30/2020 1:48 PM KETTLE SKIMMER documented as of this encounter Functional Status [...] encounter Miscellaneous Notes * Telephone Encounter - Ashley Fowler LPN - 05/07/2020 8:43 AM CST Pt will be faxing over paper work to give to Dr Welch for surgical clearance. LE SKIMMER documented in this encounter Plan of Treatment Not on file documented as of this encounter Visit Diagnoses Not on filedocumented in this encounter Care Teams Offset Platemaker Relationship Specialty Start Date End Date Natasha Bates PA-C [address] [place] [phone] PCP - General 03/21/19 06/20/23 documented as of this encounter
--- OUTSIDE RECORDS SUMMARY | 2024-05-22 05:42 | XMS_ITS | Encounter Summary ---
Author Organization [facility] Address [address] [place] [address] Care Team Providers Care Plumber Supervisor Name Role Phone Natasha Bates PA-C Primary Care Provider + Reason for Referral * Procedure (Routine) - Closed Specialty Diagnoses / Procedures Referred By Malena sagastume Referred To Contact Pulmonary Disease Diagnoses Dyspnea on exertion Pulmonary hypertension (HCC) Procedures COMPLETE PFT W/WO BRONCHODILATOR Jesus Welch MD [address] [place] [address] [facility] Pft [address] [place] [phone] Referral ID Status Reason Start Date Expiration Date Visits Re quested Visits Authorized [id number] Closed 12/31/2019 12/30/2020 1 1 DETASSELER MACHINE OPERATOR Reason for Visit * Procedure (Routine) - Closed Specialty Diagnoses / Procedures Referred By Contjhonny t Referred To Contact Pulmonary Disease Diagnoses Dyspnea on exertion Pulmonary hypertension (HCC) Procedures COMPLETE PFT W/WO BRONCHODILATOR Jesus Welch MD [address] [place] [address] [facility] Pft [address] [place] [address] Referral ID Status Reason Start Date Expiration Date Visits Re quested Visits Authorized [id number] Closed 12/31/2019 12/30/2020 1 1 Encounter Details Date Type Department Care Team (Latest Contact Info) Description 04/30/2020 2:06 PM CORN DETASSELER MACHINE OPERATOR - 04/30/2020 11:59 PM CORN DETASSELER MACHINE OPERATOR Hospital Encounter [facility] PFT [address] [place] [address] Jesus Welch MD [address] [place] [address] Discharge Disposition: Home or Self [...] COVID-19? No / Unsure 04/30/2020 1:48 PM CORN DETASSELER MACHINE OPERATOR documented as of this encounter Functional Status [...] 03/18/2020 05/02/2020 documented as of this encounter Procedure Notes * Saba Aldana MD - 04/30/2020 4:15 PM CSTAssociated Order(s): PFT OXYGEN DESATURATION STUDY Images from the original note were not included. DETASSELER MACHINE OPERATOR * Saba Aldana MD - 04/30/2020 4:13 PM CSTAssociated Order(s): SIX MINUTE WALK Images from the original note were not included. DETASSELER MACHINE OPERATOR * Saba Aldana MD - 04/30/2020 4:07 PM CSTAssociated Order(s): COMPLETE PFT W/WO BRONCHODILATOR Images from the original note were not included. DETASSELER MACHINE OPERATOR documented in this encounter Plan of Treatment Not on file documented as of this encounter Procedures Procedure Name Priority Date/Time Associated Diagnosis Comments PFT OXYGEN DESATURATION STUDY Routine 04/30/2020 4:15 PM CORN DETASSELER MACHINE OPERATOR Dyspnea on exertion SIX MINUTE WALK Routine 04/30/2020 4:13 PM CORN DETASSELER MACHINE OPERATOR Dyspnea on exertion COMPLETE PFT W/WO BRONCHODILATOR Routine 04/30/2020 4:07 PM CORN DETASSELER MACHINE OPERATOR Dyspnea on exertion Pulmonary hypertension (HCC) documented in this encounter Results * PFT OXYGEN DESATURATION STUDY (04/30/2020 4:15 PM CORN DETASSELER MACHINE OPERATOR) Impressions Jasson Mcclure MD - 04/30/2020 4:15 PM CORN DETASSELER MACHINE OPERATOR [facility] DEPARTMENT OF PULMONARY, CRITICAL CARE, AND SLEEP [...] of Pulmonary, Critical Care and Sleep Medicine [facility] Pager: [phone] I have personally reviewed pulmonary function test data and finding. I concur with fellow's note. Jasson Mcclure MD Narrative Jasson Mcclure MD - 04/30/2020 4:15 PM CORN DETASSELER MACHINE OPERATOR Saba Aldana MD ? 04/30/2020 ??4:57 PM Jesus Welch MD PFT ORDERABLES * COMPLETE PFT W/WO BRONCHODILATOR (04/30/2020 4:07 PM CORN DETASSELER MACHINE OPERATOR) Impressions Jasson Mcclure MD - 04/30/2020 4:07 PM CORN DETASSELER MACHINE OPERATOR [facility] DEPARTMENT OF PULMONARY, CRITICAL CARE, [...] of Pulmonary, Critical Care and Sleep Medicine [facility] Pager: [phone] I have personally reviewed pulmonary function test data and finding. I concur with fellow's note. Jasson Mcclure MD Narrative Jasson Mcclure MD - 04/30/2020 4:07 PM CORN DETASSELER MACHINE OPERATOR Saba Aldana MD ? 04/30/2020 ??4:57 PM Jesus Welch MD RESPIRATORY THERAPY ORDERABLES documented in this encounter Visit Diagnoses Diagnosis Dyspnea on exertion Other dyspnea and respiratory abnormality Pulmonary hypertension (HCC) Other chronic pulmonary heart diseases documented in this encounter Care Teams Plumber Supervisor Relationship Specialty Start Date End Date Natasha Bates PA-C [address] [place] [phone] PCP - General 03/21/19 06/20/23 documented as of this encounter
--- OUTSIDE RECORDS SUMMARY | 2024-05-22 05:42 | XMS_ITS | Encounter Summary ---
Author Organization [facility] Health Address [address] [facility] [place] [address] Care Team Providers Care Emergency Detail Driver Name Role Phone Natasha Bates PA-C Primary Care Provider + Reason for Visit * Reason Onset Date Comments Medication Issue 02/14/2020 Encounter Details Date Type Department Care Team (Late st Contact Info) Description 02/14/2020 Telephone [facility] Cardiology [address] [facility] [address] [place] [address] Tylor Salazar MD [address] [facility] [address] [place] [address] Medication Issue Social History Tobacco Use Types Packs/Day Years [...] encounter Miscellaneous Notes * Telephone Encounter - Tylor Salazar MD - 02/14/2020 12:44 PM CDT Spoke to patient regarding Cr 1.78 (b/l 1.4). I have asked him to decrease lasix from 80mg BID to 40mg BID with BMP in one week. He was also asked to watch out for swelling, LUZ, and/or 5lb weight gain in about 24-48hrs and to give our office a call. Patient voiced understanding. documented in this encounter Plan of Treatment Not on file documented as of this encounter Results * (ABNORMAL) BASIC METABOLIC PANEL (CALCIUM TOTAL) (02/19/2020 12:00 AM CDT) Glucose 82 74 - 106 mg/dL [facility] ACCOUNT BILL BUN 41.0(H) 8.4 - 25.7 mg/dL [facility] ACCOUNT BILL Creatinine 1.56(H) 0.50 - 1.30 mg/dL [facility] ACCOUNT BILL eGFR by MDRD 46 >60 [facility] ACCOUNT BILL Comment:mL/min/1.73m2 eGFR by MDRD 56 >60 [facility] ACCOUNT BILL Comment:mL/min/1.73m2 Sodium 142 136 - 145 mmol/L [facility] ACCOUNT BILL Potassium 4.9 3.5 - 5.1 mmol/L [facility] ACCOUNT BILL Chloride 101 98 - 107 mmol/L [facility] ACCOUNT BILL CO2 30 22 - 31 mmol/L [facility] ACCOUNT BILL Calcium 9.40 8.40 - 10.20 mg/dL [facility] ACCOUNT BILL Blood BLOOD SPECIMEN / Unknown 02/19/2020 02/19/2020 Narrative [facility] ACCOUNT BILL - 02/20/2020 10:36 AM CDT CALLED TO DR VAZQUEZ, 02-19-20,8:25PM,EST,SKYLER N Resulting Agency Comment Lab Testing performed at: [address] ??[place] [id number] Tylor Salazar MD LAB - CHEMISTRY HERNANDE[facility] Organization Address City/State/ZIP Co de Phone Number [facility] ACCOUNT BILL [address] [place] [address] documented in this encounter Visit Diagnoses Diagnosis Heart failure with preserved ejection fraction, unspecified HF chronicity (HCC)- Primary Heart failure with preserved ejection fraction, unspecified HF chronicity (HCC) documented in this encounter Care Teams Emergency Detail Driver Relationship Specialty Start Date End Date Natasha Bates PA-C [address] [place] [phone] PCP - General 03/21/19 06/20/23 documented as of this encounter
--- OUTSIDE RECORDS SUMMARY | 2024-05-22 05:42 | XMS_ITS | Encounter Summary ---
Author Organization [facility] Address [address] [facility] [place] [address] Care Team Providers Care Manufacturers Service Representative Name Role Phone Natasha Bates PA-C Primary Care Provider + Reason for Referral * Radiology Services (Routine) - Closed Specialty Diagnoses / Procedures Referred By Malena sagastume Referred To Contact Ultrasound Diagnoses Chronic kidney disease (CKD), stage III (moderate) (HCC) ERIC (acute kidney injury) (HCC) Procedures US RETROPERITONEAL COMPLETE US ABDOMEN COMPLETE Gerardo Zavala MD [address] [place] [address] [facility] Us [address] [place] [phone] Referral ID Status Reason Start Date Expiration Date Visits Re quested Visits Authorized [id number] Closed 01/03/2020 12/25/2020 1 1 Reason for Visit * Radiology Services (Routine) - Closed Specialty Diagnoses / Procedures Referred By Malena sagastume Referred To Contact Ultrasound Diagnoses Chronic kidney disease (CKD), stage III (moderate) (HCC) ERIC (acute kidney injury) (HCC) Procedures US RETROPERITONEAL COMPLETE US ABDOMEN COMPLETE Gerardo Zavala MD [address] [place] [address] [facility] [address] [place] [address] Referral ID Status Reason Start Date Expiration Date Visits Re quested Visits Authorized [id number] Closed 01/03/2020 12/25/2020 1 1 Encounter Details Date Type Department Care Team (Latest Contact Info) Description 01/03/2020 2:30 PM CDT - 01/03/2020 11:59 PM CDT Hospital Encounter [facility] [address] [place] [phone] Gerardo Zavala MD [address] [place] [address] Discharge Disposition: Home or Self [...] have Coronavirus / COVID-19? Unable to assess 12/31/2019 2:00 PM CDT documented as of this encounter Functional [...] No 11/06/2019 documented as of this encounter Medications at [...] morning and evening meal 08/25/2020 furosemide (LASIX) 20 MG tablet Take 1 tablet by mouth once daily 60 tablet 11 11/07/2019 02/04/2020 gabapentin (NEURONTIN) 300 MG capsule Take 300 mg by mouth 3 times daily 01/29/2021 isosorbide mononitrate CR 24hr (IMDUR) 30 MG tablet Take 1.5 tablets by mouth once daily 90 tablet 4 12/14/2019 08/25/2020 sertraline (ZOLOFT) 25 MG tablet Take 25 mg by mouth once daily 01/15/2020 documented as of this encounter Plan of Treatment Not on file documented as of this encounter Procedures Procedure Name Priority Date/Time Associated Diagnosis Comments US RETROPERITONEAL COMPLETE Routine 01/03/2020 3:57 PM CDT Chronic kidney disease (CKD), stage III (moderate) (HCC) ERIC (acute kidney injury) (HCC) documented in this encounter Results * US RETROPERITONEAL COMPLETE (01/03/2020 3:57 PM CDT) Anatomical Region Laterality Modality Abdomen Ultrasound 01/03/2020 3:46 PM CDT Impressions 01/03/2020 4:19 PM CDT IMPRESSION: Simple appearing right renal cyst. Normal background renal echotexture bilaterally. No evidence of hydronephrosis. Dictated by Dash Barnes MD (Resident). I, Dr. PUNEET VANEGAS have personally reviewed and interpreted this examination/study. This report was electronically signed by PUNEET VANEGAS ??on 01/03/2020 4:19 PM . Narrative [...] of the artificial urinary sphincter. Procedure Note Puneet Vanegas MD - 01/03/2020 EXAMINATION: Complete retroperitoneal [...] by Dash Barnes MD (Resident). I, Dr. PUNEET VANEGAS have personally reviewed and interpreted this examination/study. This report was electronically signed by PUNEET VANEGAS on 01/03/2020 4:19 PM . Gerardo Oneal MD US ORDER MONTEZ documented in this encounter Visit Diagnoses Diagnosis Chronic kidney disease (CKD), stage III (moderate) (HCC) Chronic kidney disease, Stage III (moderate) ERIC (acute kidney injury) (HCC) Acute kidney failure, unspecified documented in this encounter Care Teams Manufacturers Service Representative Relationship Specialty Start Date End Date Natasha Bates PA-C [address] [place] [phone] PCP - General 03/21/19 06/20/23 documented as of this encounter
--- OUTSIDE RECORDS SUMMARY | 2024-05-22 05:42 | XMS_ITS | Encounter Summary ---
Author Organization [facility] Health Address [address] [facility] [place] [address] Care Team Providers Care Cassandra Developer Name Role Phone Natasha Bates PA-C Primary Care Provider + Reason for Visit * Reason Comments Chronic Kidney Disease Encounter Details Date Type Department Care Team (Late st Contact Info) Description 02/01/2020 Telephone [facility] - Nephrology [address] [place] [address], [facility] [place] [address] Ying Aranda sba business development officer Kidney Disease Social History Tobacco Use Types Packs/Day Years [...] No 11/06/2019 documented as of this encounter Miscellaneous Notes * Telephone Encounter - Ying Aranda RN - 02/01/2020 11:31 AM CDT Pt called and wants to speak with Dr Camacho Oneal concerning his condition. Says he went to ER at [facility] concerning his swelling in his legs and SOB. Also says he has been taking double dose of Lasix 40 mg and still is not having a good urine output. Pt was given IV lasix in the ER twice and still had minimal urine output. Did not want to be admitted to hospital, told to follow up with his Formulator. documented in this encounter Plan of Treatment Not on file documented as of this encounter Visit Diagnoses Not on filedocumented in this encounter Care Teams Cassandra Developer Relationship Specialty Start Date End Date Natasha Bates PA-C [address] [place] [phone] PCP - General 03/21/19 06/20/23 documented as of this encounter
--- OUTSIDE RECORDS SUMMARY | 2024-05-22 05:42 | XMS_ITS | Encounter Summary ---
Author Organization [facility] Health Address [address] [place] [address] Care Team Providers Care Automotive Tire Tester Name Role Phone Natasha Bates PA-C Primary Care Provider + Encounter Details Date Type Department Care Team (Late st Contact Info) Description 07/23/2020 Orders Only [facility] - Nephrology [address] [place] [address], [place] [address] Gerardo Zavala MD [address] [place] [address] [place] [phone] Social History Tobacco Use Types Packs/Day Years [...] on filedocumented in this encounter Care Teams Automotive Tire Tester Relationship Specialty Start Date End Date Natasha Bates PA-C [address] [place] [phone] PCP - General 03/21/19 06/20/23 documented as of this encounter
--- OUTSIDE RECORDS SUMMARY | 2024-05-22 05:42 | XMS_ITS | Encounter Summary ---
Author Organization [facility] Address [address] [place] [address] Care Team Providers Care Assistant Manager/Embalmer Name Role Phone Natasha Bates PA-C Primary Care Provider + Reason for Referral * Evaluate & Treat (Routine) - Closed Specialty Diagnoses / Procedures Referred By Malena sagastume Referred To Contact Sleep Center Diagnoses MIRELLA (obstructive sleep apnea) Jesus Welch MD [address] [place] [phone] [facility] [address] [place] [id number] Referral ID Status Reason Start Date Expiration Date V isits Requested Visits Authorized [id number] Closed Specialty Services Required 12/31/2019 12/30/2020 1 1 * Procedure (Routine) - Closed Specialty Diagnoses / Procedures Referred By Malena sagastume Referred To Contact Pulmonary Disease Diagnoses Dyspnea on exertion Pulmonary hypertension (HCC) Procedures COMPLETE PFT W/WO BRONCHODILATOR Jesus Welch MD [address] [place] [phone] [facility] [address]ft [address] [place] [phone] Referral ID Status Reason Start Date Expiration Date Visits Re quested Visits Authorized [id number] Closed 12/31/2019 12/30/2020 1 1 Reason for Visit * Reason Comments Establish Care Encounter Details Date Type Department Care Team (Late st Contact Info) Description 12/31/2019 1:00 PM CDT Office Visit [facility] [address] [place] [address] Jesus Welch MD [address] [place] [phone] Dyspnea on exertion (Primary Dx); MIRELLA (obstructive sleep apnea); Pulmonary hypertension (HCC); Class 3 severe obesity with serious comorbidity and body mass index (BMI) of 45.0 to 49.9 in adult, unspecified obesity type (HCC) Social History Tobacco Use Types Packs/Day [...] PM CDT documented as of this encounter Last Filed Vital Signs Vital Sign Reading Time Taken Comments Blood Pressure 118/76 12/31/2019 1:07 PM CDT Pulse 86 12/31/2019 1:07 PM CDT Temperature 37.3 ??C (99.1 ??F) 12/31/2019 1 :07 PM CDT Respiratory Rate - - Oxygen Saturation 89% 12/31/2019 1:0 7 PM CDT Room air uses oxygen under 90% Inhaled Oxygen Concentration - - Weight 165.7 kg (365 lb 6.4 oz) 12/31/2019 1:07 PM CDT Height 185.4 cm (6' 1 ) 12/31/2019 1:07 PM CDT Body Mass Index 48.21 12/31/2019 1:07 PM CDT documented in this encounter Functional [...] No 11/06/2019 documented as of this encounter Patient Instructions * Patient Instructions* Jesus Welch MD - 12/31/2019 1:47 PM CDT Six minute walk test Complete PFT w/wo bronchodilator Desaturation study Continue using 2L nasal oxygen with exertion until desaturation study is resulted Ambulatory referral to sleep specialist Follow up in 6 weeks documented in this encounter Progress Notes * Jesus Welch MD - 12/31/2019 1:00 PM CDT Images from the original note were not included. PULMONARY CLINIC NOTE The patient is a 54 year old male who was referred to the Pulmonary Clinic for elevated pulmonary pressure. HPI: Howie Delaney is a 54 year old male with pmhx of CKD, HFpEF, HLD, MIRELLA recently started on CPAP and oxygen PRN, morbid obesity presents to Pulmonary Clinic for evaluation of Pulmonary hypertension. Recent admission with syncope and upon evaluation, he was found to have elevated pulmonary artery pressures. And was referred to pulmonary clinic for further management. Shortness of breath on minimal exertion, can walk up to half a block without getting short of breath. Has to stop many times while climbing flight of stairs. History of chest pain with negative ischemic work up and was likely related heart failure- improved now. History of PND and orthopnea. Swelling of feet and gets worse at the end of the day. History of one episode of non exertional syncope with negative work up for work. History of MIRELLA and sleeps with CPAP with 2L oxygen bleed in at night. F/h/o PAH in mother, aunt and nephew. Trying to get bariatric surgery, as he is trying to lose weight. Systemic ROS: negative as below (unless BOLDED) Gen: fever, chills, weight changes, night sweats, HEENT: Swollen glands, Nasal discharge, blurred vision CV: palpitations, chest pain, edema GI: diarrhea, constipation, nausea, vomiting : dysuria, frequency, hematuria, urgency. Hem: bleeding, easy bruising. Skin: rash, pruritus Neuro:weakness, numbness, headache. Psych: depression, suicidal ideation, homicidal ideation. Past Medical History: Diagnosis Date ??? CKD (chronic kidney disease) ??? HFrEF (heart failure with reduced ejection fraction) ??? HLD (hyperlipidemia) ??? HTN (hypertension) ??? MIRELLA (obstructive sleep apnea) 05/13/2019 No past surgical history on file. No Known Allergies No family history on file. Social History Socioeconomic History [...] ??? Drug use: Never ??? Sexual activity: Not on file Other Topics Concern ??? Not on file Social History Narrative ??? Not on file Current Outpatient Medications: ??? acetaminophen (TYLENOL) 325 MG tablet, Take 2 tablets by mouth every 6 hours as needed Maximum allowable Acetaminophen amount = 4 Grams (4000 mg) / 24 hours., Disp: , Rfl: ??? allopurinol (ZYLOPRIM) 100 MG tablet, Take 100 mg by mouth 2 times daily, Disp: , Rfl: ??? amLODIPine (NORVASC) 5 MG tablet, Take 1 tablet by mouth once daily, Disp: 90 tablet, Rfl: 4 ??? atorvastatin (LIPITOR) 20 MG tablet, Take 40 mg by mouth at bedtime , Disp: 90 tablet, Rfl: 4 ??? Biotin 5 MG, , Disp: , Rfl: ??? busPIRone (BUSPAR) 5 MG tablet, Take 10 mg by mouth 2 times daily , Disp: , Rfl: ??? carvedilol (COREG) 25 MG tablet, Take 25 mg by mouth 2 times daily with morning and evening meal, Disp: , Rfl: ??? furosemide (LASIX) 20 MG tablet, Take 1 tablet by mouth once daily (Patient taking differently:Take 20 mg by mouth 2 times daily ), Disp: 60 tablet, Rfl: 11 ??? gabapentin (NEURONTIN) 300 MG capsule, Take 300 mg by mouth at bedtime, Disp: , Rfl: ??? isosorbide mononitrate CR 24hr (IMDUR) 30 MG tablet, Take 1.5 tablets by mouth once daily, Disp: 90 tablet, Rfl: 4 ??? sertraline (ZOLOFT) 25 MG tablet, Take 25 mg by mouth once daily, Disp: , Rfl: Cannot display prior to admission medications because the patient has not been admitted in this contact. Immunization History Administered Date(s) Administered ??? FLU VACCINE QUAD IIV4 SPLIT PF IM 05/11/2019 Immunizations: Uptodate with influenza, will schedule Pneumovax next visit PE: There were no vitals filed for this visit. Estimated body mass index is 49.34 kg/m?? as calculated from the following: Height as of 12/20/19: 6' 1 (1.854 m). Weight as of 12/26/19: 374 lb (169.6 kg). Gen: Morbidly obese HEENT: NC/AT, EOMI. Sclera non-icteric, clear conjunctiva, MMM. Neck: No LAD, or cartoid bruit. Trachea midline. CV: RRR, Normal S1 and S2. No murmur. No JVD. Chest: CTAB no wheezing, crackles, or rhonchi appreciated. Non-labored breathing. Abd: Soft, NT/ND, + normal bowel sounds, no HSM. Neuro: No focal neurologic deficits noted. Skin: Warm and dry, no rashes or lesions Ext: +2 bilateral pitting edema LABS: Reviewed Recent Labs Component Name 12/14/19 0745 11/07/19 0413 11/06/19 0559 11/03/19 2337 06/11/19 2229 06/10/19 2257 04/18/19 1505 WBC 11.3* 8.8 10.3 - 12.4* - 11.7* 15.2* 13.7* RBC 4.25* 4.26* 4.18* - 4.15* - 4.32 4.67 4.66 HGB 12.1* 12.1* 12.0* - 12.1* - 12.2* 13.3* 13.2* HCT 39.4 39.0 38.7* - 38.5* - 39.5 43.1 42.9 MCV 92.7 91.5 92.6 - 92.8 - 91.4 92.3 92.1 MCHC 30.7* 31.0* 31.0* - 31.4* - 30.9* 30.9* 30.8* PLTCOUNT 233 201 193 - 235 - 239 276 263 NEUTPCT - - - - 73.7* - 64.1 - 60.3 NEUTABS - - - - 9.1* - 7.5* 8.82* 8.3* - = values in this interval not displayed. Recent Labs Component Name 12/26/19 1507 12/20/19 0700 12/14/19 0745 11/03/19 2337 10/30/19 1351 10/30/19 1350 07/24/19 1304 06/11/19 2229 06/10/19 2257 SODIUM - - - - - 144 144 142 - - - POTASSIUM 5.0* 4.1 4.5 - 4.9* 4.2 4.3 5.0 - 4.0 4.7* CHLORIDE - - - - - 100 100 100 - - - CO2 34* 26 28 - 30* 29 30* 29 - 30* 23 BUN 27* 36* 37* - 31* 26* 27* 20 - 20 26 CREATININE 1.5* 1.7* 1.7* - 1.4* 1.43* 1.41* 1.32* - 1.3* 1.4* GLUCOSE 90 105 103 - 100 88 89 94 - 86 91 CALCIUM 8.6 8.8 8.7 - 8.9 9.4 9.3 9.6 - 9.4 9.2 ALT - - - - 15 - - - - 18 21 ALKPHOS - - - - 87 - - - - 81 80 AST - - - - 18 - - - - 18 28 EGFR 49* 42* 42* - 53* 55* 56* 61 - 58* 53* EGFRAFR - - - - - 64 65 70 - - - ALBUMIN - - - - - - 3.7* - - - - - = values in this interval not displayed. Recent Labs Component Name 11/03/19 2337 TSH 1.196 IMAGING REVIEWED: Computed tomography (CT) of the chest with contrast 11/05/2019 ?? FINDINGS: ?? Evaluation for segmental and subsegmental pulmonary embolism is degraded secondary to suboptimal contrast opacification of the distal pulmonary arteries. Otherwise there are no central filling defects in the pulmonary arteries to suggest central pulmonary embolism. There is a left-sided aortic arch. The main pulmonary artery is dilated, measuring 4.6 cm in diameter. The aorta is normal in course and caliber. ??Scattered regions of linear atelectasis are seen. There are scattered regions of increased lung parenchymal attenuation suggestive of air trapping. No pleural effusion or focal pleural thickening is identified. There is no evidence of pneumothorax. No suspicious pulmonary nodule is identified. The trachea is patent and midline. Layering debris is seen in the trachea. ?? The heart size is normal. No pericardial effusion is present. No mediastinal, hilar, supraclavicular, or axillary lymphadenopathy is seen. The visible portions of the upper abdomen are unremarkable. Bone windows demonstrate no suspicious lytic or blastic lesions. The visible osseous structures are intact. Mild degenerative changes are seen in the spine. ? IMPRESSION: ?? 1. No evidence of central pulmonary embolism. Evaluation of segmental and subsegmental pulmonary arteries is degraded by suboptimal contrast opacification. ?? 2. Mild air trapping in the bilateral lungs may represent sequelae of reactive airways disease suchas asthma. 3. Pulmonary hypertension. Right heart catheterization done on 12/20/19 ?? HEMODYNAMIC FINDINGS: ?? Pressures: LV: 116/24 mmHg LVEDP: 24 mmHg Aorta: 100/64 mmHg with MAP of 80 mmHg RA: 15 mmHg RV: 34/14 mmHg RVEDP: 14 mmHg PA: 36/23 mmHg Mean PA: ??30 mmHg PCWP: ??unable to wedge further. Echo done on 06/11/2019 ??Summary The right atrium is mildly enlarged. The [...] ventricle filling pressures. No significant valvular abnormalities. ASSESSMENT: # Dyspnea on exertion likely 2/2 morbid obesity, Heart failure with preserved EF, and CKD with volume overload # MIRELLA on CPAP with bleed in oxygen 2L at night # Chronic hypoxic respiratory failure, uses oxygen as needed # Pulmonary hypertension likely related to Group II and Group V- PVR is low and less likely to be due to Group III # Morbid obesity and following up with Bariatric surgery PLAN: Diagnostic: - Six minute walk test - Oxygen Desaturation study - Complete PFT with and without Bronchodilator Therapeutic: - To complete diagnostic work up - Use 2L oxygen with exertion until desaturation study is resulted - follow up with cardiology and nephrology to optimize diuretic regimen and to keep him euvolemic - Ambulatory referral to Sleep clinic - will evaluate surgical risk for bariatric surgery after the testing Follow-up in [address]. [address] Wolfe (Pulmonary Attending) Jesus Welch MD Pulmonary Disease and Critical Care Medicine- PGY4 12/31/2019 11:48 AM Associated attestation - Jose Wolfe MD - 12/31/2019 2:45 PM CDT I have seen and examined the patient with the resident and I agree with the findings and plan of care as documented by the resident except as noted below: Patient referred for pulmonary HTN. The patient has been having LUZ for > 1 year, can walk around 1 block. No dyspnea at rest. Has orthopnea and PND. Uses o2 prn and with CPAP at night. Recently admitted for syncope, had LHC and RHCperformed, showed increased mPAP and elevated LVEDP with normal PVR. Prior CT chest was unrevealing. Has elevated BMI. Wants to have bariatric surgery. Echo shows dilated RA and LA. BP 118/76 Pulse 86 Temp 99.1 ??F (37.3 ??C) (Temporal) Ht 6' 1 (1.854 m) Wt 365 lb 6.4 oz (165.7 kg) SpO2 89% BMI 48.21 kg/m2 Dyspnea on exertion likely multifactorial including obesity, fluid overload, pulmonary HTN and HFpEF Chronic respiratory failure with hypoxia Pulmonary HTN likely group 3 and 5 MIRELLA on CPAP - Obtain PFT's, O2 desat study and 6 MWT - Optimize diuretics per cardiology and keep euvolemic as much as possible - Continue CPAP with o2 at night - I told him to use 2 liters o2 with exertion until we do the above tests, he already has O2 at home - Flu vaccine in the fall RTC in 6 months. See fellow's note for more details. Date of service: 12/31/2019 Jose Wolfe MD General [facility] of Internal Medicine Division of Pulmonary, Critical Care and Sleep Medicine [facility] Pager: [phone] documented in this encounter Plan of Treatment Scheduled Referrals Name Type Priority Associated Diagnoses Order Schedule AMB Ref to [place] Specialist - [facility] [place] Referral Routine MIRELLA (obstructive sleep apnea) 1 Occurrences starting 12/31/2019 until 12/30/2020 documented as of this encounter Results * PFT OXYGEN DESATURATION STUDY (04/30/2020 4:15 PM RECREATION WORKER) Impressions Jasson Mcclure MD - 04/30/2020 4:15 PM RECREATION WORKER [facility] DEPARTMENT OF PULMONARY, CRITICAL CARE, AND SLEEP MEDICINE OXYGEN TITRATION STUDY Howei Campos Rhett 04/30/2020 INTERPRETATION The test was performed by [...] of Pulmonary, Critical Care and Sleep Medicine [facility] Pager: [phone] I have personally reviewed pulmonary function test data and finding. I concur with fellow's note. Jasson Mcclure MD Narrative Jasson Mcclure MD - 04/30/2020 4:15 PM RECREATION WORKER Saba Aldana MD ? 04/30/2020 ??4:57 PM Jesus Welch MD PFT ORDERABLES * SIX MINUTE WALK (04/30/2020 4:13 PM RECREATION WORKER) Impressions Jasson Mcclure MD - 04/30/2020 4:13 PM RECREATION WORKER [facility] DEPARTMENT OF PULMONARY, CRITICAL [...] of Pulmonary, Critical Care and Sleep Medicine [facility] Pager: [phone] I have personally reviewed pulmonary function test data and finding. I concur with fellow's note. Jasson Mcclure MD Narrative Jasson Mcclure MD - 04/30/2020 4:13 PM RECREATION WORKER Saba Aldana MD ? 04/30/2020 ??4:57 PM Jesus Welch MD RESPIRATORY THERAPY ORDERABLES * COMPLETE PFT W/WO BRONCHODILATOR (04/30/2020 4:07 PM RECREATION WORKER) Impressions Jasson Mcclure MD - 04/30/2020 4:07 PM RECREATION WORKER [facility] DEPARTMENT OF PULMONARY, CRITICAL [...] of Pulmonary, Critical Care and Sleep Medicine [facility] Pager: [phone] I have personally reviewed pulmonary function test data and finding. I concur with fellow's note. Jasson Mcclure MD Narrative Jasson Mcclure MD - 04/30/2020 4:07 PM RECREATION WORKER Saba Aldana MD ? 04/30/2020 ??4:57 PM Jesus Welch MD RESPIRATORY THERAPY ORDERABLES documented in this encounter Visit Diagnoses Diagnosis Dyspnea on exertion- Primary Other dyspnea and respiratory abnormality MIRELLA (obstructive sleep apnea) Obstructive sleep apnea (adult) (pediatric) Pulmonary hypertension (HCC) Other chronic pulmonary heart diseases Class 3 severe obesity with serious comorbidity and body mass index (BMI) of 45.0 to 49.9 in adult, unspecified obesity type (HCC) Dyspnea on exertion Other dyspnea and respiratory abnormality Pulmonary hypertension (HCC) Other chronic pulmonary heart diseases Dyspnea on exertion Other dyspnea and respiratory abnormality documented in this encounter Care Teams Assistant Manager/Embalmer Relationship Specialty Start Date End Date Natasha Bates PA-C [address] [place] [phone] PCP - General 03/21/19 06/20/23 documented as of this encounter
--- OUTSIDE RECORDS SUMMARY | 2024-05-22 05:42 | XMS_ITS | Encounter Summary ---
Author Organization [facility] Address [address] [place] [address] Care Team Providers Care Hog Scraper Name Role Phone Natasha Bates PA-C Primary Care Provider + Reason for Referral * Consultation (Routine) - Closed Specialty Diagnoses / Procedures Referred By Malena sagastume Referred To Contact Nutrition Services Diagnoses Heart failure with preserved ejection fraction, unspecified HF chronicity (HCC) Tylor Salazar MD [address] [facility] [address] [place] [address] Referral ID Status Reason Start Date Expiration Date V isits Requested Visits Authorized [id number] Closed Specialty Services Required 02/07/2020 02/06/2021 1 1 Encounter Details Date Type Department Care Team (Late st Contact Info) Description 02/07/2020 12:00 PM CDT Office Visit [facility] [address] [facility] [address] [place] [address] Tylor Salazar MD [address] [facility] [address] [place] [address] Heart failure with preserved ejection fraction, unspecified HF chronicity (HCC) (Primary Dx) Social History Tobacco Use [...] Sign Reading Time Taken Comments Blood Pressure 110/68 02/07/2020 12:01 PM CDT Pulse 66 02/07/2020 12:01 PM CDT Temperature - - Respiratory Rate - - Oxygen Saturation 95% 02/07/2020 12:01 PM CDT Inhaled Oxygen Concentration - - Weight 167.8 kg (370 lb) 02/07/2020 12:01 PM CDT Height 185.4 cm (6' 1 ) 02/07/2020 12:01 PM CDT Body Mass Index 48.82 02/07/2020 12:01 PM CDT documented in this encounter Functional [...] this encounter Patient Instructions * Patient Instructions* Tylor Salazar MD - 02/07/2020 12:37 PM CDT Continue with lasix 80mg twice a day. We will see you back in 3 months. Watch your salt intake. documented in this encounter Progress Notes * Tylor Salazar MD - 02/07/2020 12:45 PM CDT [facility] History Of Present Illness: Howie Delaney is a 54 year old with CKD, HTN, morbid obesity, HLD who presents to critical access hospital care. SOB with 1-2 flights. Sleep study ordered. Remote history of cardiac catherization 10 years ago at [facility], per patient report. No chest pain, chest discomfort, light headedness/dizziness, palpitations, claudications, edema, orthopnea or PND. In the interm, patient hospitalized with HFpEF (LUZ with 50-100 feet) that improved with IV fursemide (patient mistakingly taking 10mg furosemide instead of 20mg BID). Lexiscan negative. Still fatigued since hospitalization. Denies chest discomfort. Baseline 3-4 city blocks. Still some LUZ. 02/07/2020: Hospitalized for ADHF due to dietary indiscretion with increase to lasix from 40mg BID to 80mg BID. Feels better today. FHx: -HTN SHx: -Tobacco: Denies -EtoH: Occasional -Illicits: Denies Review of Systems: As per HPI. Past Medical/Surgical History: Past Medical History: Diagnosis Date ??? CKD (chronic kidney disease) ??? HFrEF (heart failure with reduced ejection fraction) ??? HLD (hyperlipidemia) ??? HTN (hypertension) ??? MIRELLA (obstructive sleep apnea) 05/13/2019 Past Surgical History: Procedure Laterality Date ??? BLADDER PROCEDURE/SURGERY arteficial EUS Family History: Family History Problem Relation Name Age of Onset ??? Other Mother pulmonary hypertension ??? Other Nephew pulmonary hypertension Social History: Social History Tobacco Use ??? Smoking status: Never Smoker ??? Smokeless tobacco: Never Used Substance Use Topics ??? Alcohol use: Yes Frequency: 2-4 times a month Drinks per session: 1 or 2 Binge frequency: Never Comment: maybe 4 drinks a month ??? Drug use: Never Home Medications: Current Outpatient Medications Medication Sig Dispense Refill [...] morning and evening meal ??? furosemide (LASIX) 40 MG tablet Take 2 tablets by mouth 2 times daily for 90 days 360 tablet 3 ??? gabapentin (NEURONTIN) 300 MG capsule Take 300 mg by mouth 3 times daily ??? isosorbide mononitrate CR 24hr (IMDUR) 30 MG tablet Take 1.5 tablets by mouth once daily 90 tablet 4 ??? PARoxetine (PAXIL) 10 MG tablet Take 10 mg by mouth once daily No current facility-administered medications for this visit. Allergies: No Known Allergies OBJECTIVE: Vitals: 02/07/20 1201 BP: 110/68 Pulse: 66 SpO2: 95% Weight: (!) 370 lb (167.8 kg) Height: 6' 1 (1.854 m) Body mass index is 48.82 kg/m??. PHYSICAL EXAM: General: Morbidly Obese, Alert and Oriented to person, place, time and situation, no acute distress Eyes: Anicteric sclerae, moist conjunctiva Neck: Unable to assess JVD. Trachea midline. Heart: RRR, Normal S1 and S2, No S3/S4. No murmurs appreciated. Respiratory: Normal breath sounds and effort, no wheezes or rhonchi Chest: Non-tender Abdomen: Soft, Non-tender, Non-distended MSK: +1 lower extremity edema, Normal ROM Integumentary: No rashes, lesions, or ulcers Psychiatric: Appropriate affect. Judgement intact Neurological: CN II-XII grossly intact LABS: Reviewed EKG: Reviewed. HOLTER/EVENT MONITOR: TTE/SEAN: 06/11/2019 The right atrium is mildly enlarged. The [...] ventricle filling pressures. No significant valvular abnormalities. STRESS: 2018 Lexiscan normal, per patient report ([facility]) 06/11/2019 Lexiscan Findings: The image quality is technically adequate despite adjacent bowel activity and reduced counts. In the stress and rest SPECT/CT images, the left ventricle is normal in size. The stress SPECT/CT images show a normal pattern of myocardial perfusion. Gated SPECT/CT images show normal myocardial thickening and normal wall motion. The calculated left ventricular ejection fraction is 71%. ?? Impression: 1. No evidence of myocardial infarction or stress-induced ischemia. 2. Normal left ventricular wall motion and thickening. 3. The calculated left ventricular ejection fraction of 71%. CTA CORONARY: n/a CATHERIZATIONS: 11/2019 LHC/RHC 1) Elevated filling pressure with moderate pulmonary venous hypertension (RA 15 mmHg, PAD 30 mmHg, LVEDP 24 mmHg). 2) Normal coronaries Assessment/Plan: Morbid Obesity -Coronary angiogram normal with LVEDP 24mmHg -Low risk patient from cardiac stand-point; will need meticulous volume status assessment jerry-op -atorvastatin 40mg qday HFpEF -TTE with diastolic dysfunction -Lasix 80mg BID (BMP pending); continue this dose if BMP ok -Coreg 25mg BID -Imdur 45mg qday for atypical chest pain (can consider discontinuing at next OV) HLD -Atorvastatin 40mg qday Tylor Salazar MD Cardiovascular [facility] P: [phone] * Muriel Moreno MD - 02/07/2020 12:14 PM CDT Patient seen and examined with the fellow. I agree with their findings, assessment, and plan. In addition I note: HPI: Mr. Delaney presents for evaluation of chest pain. Since 05/2019 - has had ischemic eval for CP with breana scan stress - normal. Recent LHC with increased LVEDP (24) and normal coronary arteries; RA was 15 Review of Systems: History obtained from the [...] morning and evening meal ??? furosemide (LASIX) 40 MG tablet Take 2 tablets by mouth 2 times daily for 7 days 28 tablet 0 ??? gabapentin (NEURONTIN) 300 MG capsule Take 300 mg by mouth 3 times daily ??? isosorbide mononitrate CR 24hr (IMDUR) 30 MG tablet Take 1.5 tablets by mouth once daily 90 tablet 4 ??? PARoxetine (PAXIL) 10 MG tablet Take 10 mg by mouth once daily No current facility-administered medications for this visit. Physical Examination: BP at home 140/150/90s Data: CBC: Recent Labs Component Name 02/04/20 0518 02/03/20 0402 02/02/20 0434 WBC 9.0 9.5 11.6* RBC 4.54 4.20* 4.13* HGB 12.7* 12.1* 11.7* HCT 40.7 37.8* 37.7* BMP: Recent Labs Component Name 02/04/20 0518 02/03/20 0402 02/02/20 0436 NA 136 138 138 CL 96* 97* 98 CO2 34* 33* 34* BUN 28* 28* 27* CREATININE 1.4* 1.5* 1.4* CALCIUM 8.9 9.0 9.0 Magnesium: No results for input(s): MG in the last [id number] hours. Phosphorus: Recent Labs Component Name 12/26/19 1507 11/06/19 0559 11/03/19 2337 PHOS 3.9 3.1 3.9 Coagulation: Recent Labs Component Name 12/14/19 0745 11/05/19 0436 11/03/19 2337 PT 13.1 13.6 13.4 INR 1.0 1.1 1.1 Cardiac profile: Recent Labs Component Name 02/01/20201311/03/19 2337 06/11/19 0556 06/11/19 0215 06/11/19 0049 06/10/19 2257 TROPONINI 0.013 0.018 0.017 - 0.024 0.020 BNP 124* 328* - 225* - - Cholesterol: Recent Labs Component Name 07/24/19 1304 06/12/19 0315 CHOL 110 129 Triglycerides: Recent Labs Component Name 07/24/19 1304 06/12/19 0315 TRIG 63 72 HDL: Recent Labs Component Name 07/24/19 1304 06/12/19 0315 HDL 37* 39* LDL: Recent Labs Component Name 07/24/19 1304 06/12/19 0315 LDLCALC 60 76 HgbA1c: Recent Labs Component Name 07/05/19 1232 HGBA1C 5.7* LHC/RHC HEMODYNAMIC FINDINGS: ?? Pressures: LV: 116/24 [...] HTN; Patient has enlarged PA on CT Plan to further increase lasix and check BMP Rest of plan per fellow note. Muriel Moreno MD, MD Mop Worker [facility] 02/07/2020 documented in this encounter Plan of Treatment Scheduled Referrals Name Type Priority Associated Diagnoses Orde r Schedule AMB Ref Dietitian - CAR-UCT 1120 Outpatient Referral Routine Heart failure with preserved ejection fraction, unspecified HF chronicity (HCC) 1 Occurrences starting 02/07/2020 until 02/06/2021 documented as of this encounter Procedures Procedure Name Priority Date/Time Associated Diagnosis Comments BASIC METABOLIC PANEL (CALCIUM TOTAL) Routine 02/13/2020 2:16 PM CDT Heart failure with preserved ejection fraction, unspecified HF chronicity (HCC) documented in this encounter Results * (ABNORMAL) BASIC METABOLIC PANEL (CALCIUM TOTAL) (02/13/2020 2:16 PM CDT) Glucose 94 65 - 99 mg/dL [facility] INSURANCE BILL BUN 40(H) 6 - 24 mg/dL [facility] INSURANCE BILL Creatinine 1.78(H) 0.76 - 1.27 mg/dL [facility] INSURANCE BILL eGFR by MDRD 42(L) >59 mL/min/1.7 3 [facility] INSURANCE BILL eGFR by MDRD 49(L) >59 mL/min/1.7 3 [facility] INSURANCE BILL BUN/Creatinine Ratio 22(H) 9 - 20 [facility] INSURANCE BILL Sodium 146(H) 134 - 144 mmol/L [facility] INSURANCE BILL Potassium 4.8 3.5 - 5.2 mmol/L [facility] INSURANCE BILL Chloride 99 96 - 106 mmol/L [facility] INSURANCE BILL CO2 32(H) 20 - 29 mmol/L [facility] INSURANCE BILL Calcium 9.3 8.7 - 10.2 mg/dL [facility] INSURANCE BILL Comment:FASTING Blood BLOOD SPECIMEN / Unknown 02/13/2020 2:16 PM CDT 02/13/2020 Narrative Resulting Agency Comment Lab Testing performed at: [facility] [address] ??[facility] [phone] Tylor Salazar MD LAB - CHEMISTRY HERNANDEZ SAL [facility] INSURANCE BILL [address] [place] [address] documented in this encounter Visit Diagnoses Diagnosis Heart failure with preserved ejection fraction, unspecified HF chronicity (HCC)- Primary documented in this encounter Care Teams [place] Scraper Relationship Specialty Start Date End Date Natasha Bates PA-C [address] [place] [phone] PCP - General 03/21/19 06/20/23 documented as of this encounter
--- OUTSIDE RECORDS SUMMARY | 2024-05-22 05:42 | XMS_ITS | Encounter Summary ---
Author Organization [facility] Address [address] [place] [address] Care Team Providers Care Benefits Consulting Analyst Name Role Phone Natasha Bates PA-C Primary Care Provider + Encounter Details Date Type Department Care Team (Latest Contact Info) Description 04/30/2020 2:00 PM MOSAICIST - 04/30/2020 2:05 PM MOSAICIST Hospital Encounter [facility] PFT [address] [place] [phone] Jesus Welch MD [address] [place] [phone] Discharge Disposition: Home or Self Care Social [...] COVID-19? No / Unsure 04/30/2020 1:48 PM MOSAICIST documented as of this encounter Functional Status [...] on filedocumented in this encounter Care Teams Benefits Consulting Analyst Relationship Specialty Start Date End Date Natasha Bates PA-C [address] [place] [address] PCP - General 03/21/19 06/20/23 documented as of this encounter
--- OUTSIDE RECORDS SUMMARY | 2024-05-22 05:42 | XMS_ITS | Encounter Summary ---
Author Organization [facility] Address [address] [place] [address] Care Team Providers Care Commissioned Police Officer Name Role Phone Natasha Bates PA-C Primary Care Provider + Reason for Visit * Reason Onset Date Comments Follow-up 07/22/2020 Encounter Details Date Type Department Care Team (Late st Contact Info) Description 07/22/2020 Telephone [facility] [address] [facility] [address] [place], [place] [id number] Rajni Webb RN Follow-up Social History Tobacco [...] Telephone Encounter - Rajni Webb RN - 07/22/2020 11:11 AM SENIOR CHEMIST Pt called and left vm message to report that he had labs @ [facility] in preporation for upcoming gastric shelve surgery. K+was 5.4 @ [facility]-still having skipped beats and chest pressure. Called pt back-he is aware that we have not received labs Per 07/03/2020 note- pt has dc'd spironolactone per Dr Moreno K+ 5.3 07/01/2020. Pt aware that for skipped beats and chest pressure-he should be evaluated in ER if sxs persist or increase in frequency, duration, intensity. Pt mentioned that his cfo had had him taking veltassa in past-and then dc'd-asked pt aboutf/u with nephrology-he states he missed last appt with that office. Advised that he please follow up with nephrology office CB for recommendation regarding hyperkalemia. Asked that pt please send copy of labs to this office. Pt scheduled with this office 07/24/2020 as surgery scheduled for August 04, 2020- but aware that for skipped beats, chest pressure ER if sxs merit immediate evaluation- as per previous instructions as well-see 07/01/2020 note OR CHEMIST documented in this encounter Plan of Treatment Not on file documented as of this encounter Visit Diagnoses Not on filedocumented in this encounter Care Teams Commissioned Police Officer Relationship Specialty Start Date End Date Natasha Bates PA-C [address] [place] [phone] PCP - General 03/21/19 06/20/23 documented as of this encounter
--- OUTSIDE RECORDS SUMMARY | 2024-05-22 05:42 | XMS_ITS | Encounter Summary ---
Author Organization [facility] Address [address] [place] [address] Care Team Providers Care Fat Pressroom Worker Name Role Phone Natasha Bates PA-C Primary Care Provider + Reason for Referral * Radiology Services (Routine) - Closed Specialty Diagnoses / Procedures Referred By Malena sagastume Referred To Contact Cardiac Cath Diagnoses Chest pain, unspecified type Procedures CCL CATH RIGHT HEART Tylor Salazar MD [address] [place] [address] [facility] Cardiac Ticket Attendant [address] [place] [address] Referral ID Status Reason Start Date Expiration Date Visits Re quested Visits Authorized [id number] Closed 12/20/2019 12/13/2020 1 1 Reason for Visit * Auth/Cert Specialty Diagnoses / Procedures Referred By Contjhonny t Referred To Contact Diagnoses Chest pain, unspecified type Procedures CCL CATH RIGHT HEART Referral ID Status Reason Start Date Expiration Date Visits Re quested Visits Authorized [id number] 1 1 Encounter Details Date Type Department Care Team (Late st Contact Info) Description 12/20/2019 6:52 AM CDT - 12/20/2019 1:30 PM CDT Hospital Encounter [facility] Cardiac Ticket Attendant/EPS [address] [place] [address] Tylor Salazar MD [address] [address] [address] [place] [address] Carroll Thakur MD [address] [place] [address] Cardiology Discharge Disposition: Home or Self Care Social [...] Sign Reading Time Taken Comments Blood Pressure 114/63 12/20/2019 11:30 AM CDT Pulse 62 12/20/2019 11:30 AM CDT Temperature - - Respiratory Rate 18 12/20/2019 11:30 AM CDT Oxygen Saturation 91% 12/20/2019 11:30 AM CDT Inhaled Oxygen Concentration - - Weight 161 kg (355 lb) 12/20/2019 7:07 AM CDT Height 185.4 cm (6' 1 ) 12/20/2019 7:07 AM CDT Body Mass Index 46.84 12/20/2019 7:07 AM CDT documented in this encounter Functional [...] No 11/06/2019 documented as of this encounter Discharge Instructions * Discharge Instructions* Hubert Avila MD - 12/20/2019 11:51 AM CDT No tub bathing, hot tubs or swimming for 1 week. May remove dressing and shower tomorrow but do not scrub site, lightly wipe area and allow the water to rinse off. No lifting more than 5-7 lbs for 1 week. No driving for 24 hours. If there is any questions or concerns please call and ask the hospital mill and coal transport operator to contact the dna analyst window air conditioner installer. Follow up with Doctor as directed. If you develop bleeding hold pressure for 10 min if you are unable to control bleeding please go the nearest Emergency Department. MEDICATION INSTRUCTIONS: RESUME YOUR LASIX TO 20MG ORALLY TWICE DAILY. documented in this encounter Medications at Time of Discharge Medication Sig Dispensed Refills Start Date End Date acetaminophen (TYLENOL) 325 MG tablet Take 2 (two) tablets by mouth 11/07/2019 acetaminophen (TYLENOL) 325 MG tablet Take 2 tablets by mouth every 6 hours as needed Maximum allowable Acetaminophen amount = 4 Grams (4000 mg) / 24 hours. 11/07/2019 11/21/2020 allopurinol (ZYLOPRIM) 100 MG tablet Take 100 mg by mouth 2 times daily 01/29/2021 amLODIPine (NORVASC) 5 MG tablet Take 1 tablet by mouth once daily 90 tablet 4 12/10/2019 05/08/2020 atorvastatin (LIPITOR) 20 MG tablet Take 40 mg by mouth at bedtime 90 tablet 4 07/06/2019 01/01/2020 Biotin 5 MG 01/01/2020 busPIRone (BUSPAR) 5 MG tablet Take 10 mg by mouth 2 times daily 03/18/2020 furosemide (LASIX) 20 MG tablet Take 1 tablet by mouth once daily 60 tablet 11 11/07/2019 02/04/2020 gabapentin (NEURONTIN) 300 MG capsule Take 300 mg by mouth 3 times daily 01/29/2021 isosorbide mononitrate CR 24hr (IMDUR) 30 MG tablet Take 1.5 tablets by mouth once daily 90 tablet 4 12/14/2019 08/25/2020 documented as of this encounter Progress Notes * Lizandro Lamb RN - 12/20/2019 1:10 PM CDT Discharged via wheelchair to go home with daughter * Jesscia Niño RN - 12/20/2019 12:43 PM CDT Pt states his nausea has resolved. * Lizandro Lamb RN - 12/20/2019 12:00 PM CDT Pt ambulated to bathroom to void, pt states that he voided yellow urine no blood present. No bleeding or hematoma noted to right wrist circulation good to right hand, dressing remains in place to right AC no bleeding or hematoma noted. * Lizandro Lamb RN - 12/20/2019 11:30 AM CDT Takes juice without problems, states that he has had intermittent slight nausea after heart cath. title i paraprofessional cont without problems. * Lizandro Lamb RN - 12/20/2019 11:20 AM CDT Air removed from radial compression device no bleeding or hematoma noted circulations good to righthand, color pink skin warm and dry. 4x4 and tegaderm dressing applied. * Lizandro Lamb RN - 12/20/2019 11:00 AM CDT Resting quietly at present, no pain to right wrist. No bleeding or hematoma to right wrist noted, no bleeding or hematoma to right A/C. title i paraprofessional NSR to Sinus bradycardia no ectopy noted. Resp non labored. * Lizandro Lamb RN - 12/20/2019 10:15 AM CDT Color of right hand improved, states that pain in right hand has improved. No bleeding or hematoma to right wrist or right A/C. title i paraprofessional NSR - Sinus bradycardia no ectopy noted. Resp non labored, takes sips of water but does not wish any food at this time. * Lizandro Lamb RN - 12/20/2019 10:00 AM CDT Pt seems more comfortable, States right hand cont to hurt some, slight cyanosis noted, 1 ml of air removed from hand, no bleeding or hematoma noted, dressing dry and in place to right AC no bleeding or hematoma noted. title i paraprofessional cont NSR no ectopy noted. * Lizandro Lamb RN - 12/20/2019 9:45 AM CDT Pt uncomfortable, states that right hand is painful, hand warm slight cyanosis noted, no bleeding or hematoma noted. title i paraprofessional sinus bradycardia no ectopy noted. Dressing dry and in place to right AC * Yonas Jonas RN - 12/20/2019 9:21 AM CDT Patient able to ambulate self off table and to stretcher. SBAR with AVA Bone in cath bay 4 for postprocedure recovery. documented in this encounter H&P Notes * Hubert Avila MD - 12/20/2019 7:12 AM CDT CARDIAC SALES OPERATIONS ASSOCIATE PRE PROCEDURE APPROPRIATE USE CRITERIA TOOL History of Present Illness: ?? Mr. Delaney is a 54 yo gentleman with a known medical history of heart failure with preserved EF, Hypertension, suspected obesity hypoventilation syndrome vs. MIRELLA and family history of pulmonary hypertension (mother) is here in our Cardiac Catheterization lab in view of his ongoing anginal symptoms. ?? Heart Failure: Yes, History of Heart Failure NYHA Class ll Diastolic ?? Stress Test Preformed: Nuc Med MPI, Result: Negative ?? Home Med List: Current Outpatient Medications Medication Sig Dispense Refill [...] daily 90 tablet 4 ??? atorvastatin (LIPITOR) 20 MG tablet Take 40 mg by mouth at bedtime 90 tablet 4 ??? Biotin 5 MG ??? busPIRone (BUSPAR) 5 MG tablet Take 10 mg by mouth 2 times daily ??? furosemide (LASIX) 20 MG tablet Take 1 tablet by mouth once daily (Patient taking differently: Take 20 mg by mouth 2 times daily ) 60 tablet 11 ??? gabapentin (NEURONTIN) 300 MG capsule Take 300 mg by mouth at bedtime ??? isosorbide mononitrate CR 24hr (IMDUR) 30 MG tablet Take 1.5 tablets by mouth once daily 90 tablet 4 ??? PARoxetine (PAXIL) 10 MG tablet Take 10 mg by mouth once daily No current facility-administered medications for this visit. Anti-Anginal Medication within 2 Weeks: Yes: Beta Wade, Calcium Channel Wade and Long Acting Nitrates Past Medical & Surgical History Illnesses: Past Medical History: Diagnosis Date ??? CKD (chronic kidney disease) ??? HFrEF (heart failure with reduced ejection fraction) ??? HLD (hyperlipidemia) ??? HTN (hypertension) ??? MIRELLA (obstructive sleep apnea) 05/13/2019 No past surgical history on file. No Known Allergies Physical Exam: General: well appearing Neck: supple, non-tender, with full ROM, and no lymphadenopathy Cardiovascular: regular rate and rhythm, normal S1 and S2, no murmurs Chest: breath sounds symmetrical without rales or wheezes Abdomen: soft, non-tender, non-distended and no hepatosplenomegaly or masses Pulses: Barbeau test normal bilaterally, 2+ femoral pulses with palpable distal dorsalis pedis. ?? This patient's prior H&P was reviewed, the patient was examined, and no change has occurred in the patient's condition since the prior H&P was completed. ?? Consent: Risk, benefits and alternatives were discussed with patient and consent for procedure was obtained. Airway: Mallampati III (soft palate, base of uvula visible) ?? ASA Class: {Class 2 - Mild Systemic Disease,No Acute Problems, No Functional Limitations. ?? Impression/Cardiac Catheterization Indication(Choose all that apply): Suspected Coronary Artery Disease/Stable Angina ?? Chest Pain Symptom Assessment: Typical Angina ?? Cardiac Instability: No ?? Procedure Acuity Status: Elective ?? Planned Course of Treatment/Procedure: Coronary angiography and Left and Right Heart Cath ?? Sedation: Fentanyl and Versed Expected Level: Minimal anxiolysis Indication: Sedation is required to allow for performance of procedure. Monitoring: heart rate, welder railcar mechanic, continuous pulse oximetry, frequent blood pressure checks,level of consciousness, IV access, constant attendance by RN until patient recovered, and emergencyairway equipment available. ?? Based on the above criteria, I believe that patient meets clinical indications for a cardiac catheterization. ?? Hubert Avila MD? Cardiovascular Medicine Fellow [facility] documented in this encounter Procedure Notes * Hubert Avila MD - 12/20/2019 9:30 AM CDT Post Sedation Note Howie Delaney is a 54 year old male born on 1965 Unit that procedure is to be preformed: Cardiac Catheterization lab Pre-Procedure Diagnosis: heart failure with preserved EF, Hypertension, suspected obesity hypoventilation syndrome vs. MIRELLA Procedure: Left and Right Heart Catheterization and Coronary Angiography Post Procedure Diagnosis: Normal coronaries, elevated filling pressures. RA 15 mmHg, PAP 30 mmHg, LVEDP 24 mmHg Complications: none Monitoring: Monitoring consisted of: heart rate, welder railcar mechanic, continuous pulse oximetry, continuous capnometry, frequent blood pressure checks, level of consciousness, IV access, constant attendance by RN until patient recovered and constant attendance by MD until patient stable. Response: Vital signs stable, airway patent and O2 saturations greater than 92%. Patient Status Post Procedure: Activity: Able to move four extremities voluntarily on command = 2 Respiration: Able to breathe deeply and cough freely = 2 Circulation: Blood pressure +/- 20mm Hg of normal = 2 Consciousness: Fully awake =2 Color: 2 - color is WNL Rustam Score: 10 Temperature: Normalthermic Pain: 0 Post sedation nausea & vomiting present: no nausea and no vomiting Post-sedation hydration status Is adequate: Yes Total Physician Drug Administration / Monitoring Time: 45 minutes. Patient was monitored during recovery and returned to pre-procedure baseline. Discharge plan: Recovery Hubert Avila MD? Cardiovascular Medicine Fellow [facility] Cardiovascular [facility] * Hubert Aivla MD - 12/20/2019 7:12 AM CDT Pre-Sedation Note Howie Delaney is a 54 year old male born on 1965 Unit where the procedure was preformed: Cardiac Catheterization lab H&P I have reviewed this H&P written on 12/20/2019 and there are no significant changes since the time of the exam. Pertinent review of system Cardiac - no chest pain or dyspnea on exertion Resp - no cough, shortness of breath, or wheezing Patient status - alert Allergies No Known Allergies Home Meds Current Outpatient Medications Medication Sig Dispense Refill [...] daily 90 tablet 4 ??? atorvastatin (LIPITOR) 20 MG tablet Take 40 mg by mouth at bedtime 90 tablet 4 ??? Biotin 5 MG ??? busPIRone (BUSPAR) 5 MG tablet Take 10 mg by mouth 2 times daily ??? furosemide (LASIX) 20 MG tablet Take 1 tablet by mouth once daily (Patient taking differently: Take 20 mg by mouth 2 times daily ) 60 tablet 11 ??? gabapentin (NEURONTIN) 300 MG capsule Take 300 mg by mouth at bedtime ??? isosorbide mononitrate CR 24hr (IMDUR) 30 MG tablet Take 1.5 tablets by mouth once daily 90 tablet 4 ??? PARoxetine (PAXIL) 10 MG tablet Take 10 mg by mouth once daily No current facility-administered medications for this visit. Patient Active Problem List: Need for influenza vaccination Class 3 severe [...] Orthostasis Acute on chronic diastolic heart failure There were no vitals filed for this visit. Status Test none Anesthesis History no past endotracheal intubation no past general anesthesia no past regional anesthesia History of airway problems: none Expected Level: Moderate Sedation Indication: Sedation is required to allow for Left and right Heart Catheterization and Coronary Angiography. Consent: Risks, benefits and alternatives were discussed with patient and consent for procedure wasobtained. PO Intake: Clear Liquids > 2 hours and Regular Meal > 8 hours ASA Class: Class 2 - Mild Systemic Disease,No Acute Problems, No Functional Limitations. Mallampati: Grade 3: Soft palate visible, posterior pharyngeal wall not visible. Medication: Fentanyl: IV and Versed: IV. Immediate Pre-Procedure Assessment: Review of vital signs:Yes Patient reports or my clinical evaluation indicates there have been no changes in the patient's condition prior to the start of the procedure: Yes Hubert Avila MD? Cardiovascular Medicine Fellow [facility] documented in this encounter OR Notes * Brief Op Note - Ernst Babin MD - 12/20/2019 9:23 AM CDT Brief Op Note Procedure: RHC and LHC Patient Name: Howie Delaney Date of Service: 12/20/2019 Pre-Op Diagnosis: Angina equivalent Post-Op Diagnosis: Clean coronaries, elevated filling pressures. RA 15 mmHg, PAD 30 mmHg, LVEDP 24 mmHg Cost Estimating Clerk(s): Dr. Ernst Babin, Dr. Cheko Avila Anesthesia Type: Moderate sedation Complications: none Ernst Babin MD documented in this encounter Plan of Treatment Not on file documented as of this encounter Procedures Procedure Name Priority Date/Time Associated Diagnosis Comments CARDIAC PROCEDURE ORDER 01/07/2020 4:27 PM CDT CCL CATH RIGHT HEART Routine 12/20/2019 9:27 AM CDT Chest pain, unspecified type BASIC METABOLIC PANEL (CALCIUM TOTAL) STAT 12/20/2019 7:00 AM CDT Chest pain, unspecified type documented in this encounter Results * CARDIAC PROCEDURE ORDER (01/07/2020 4:27 PM CDT) Narrative 01/07/2020 4:27 PM CDT Ordered by an unspecified provider. Scanned Document CARDIAC SERVICES ORD ERABLES * CCL CATH RIGHT HEART (12/20/2019 9:27 AM CDT) Anatomical Region Laterality Modality Chest X-Ray Angiograph y Narrative 12/24/2019 12:12 PM CDT [facility] Cardiac Catheterization Procedure Note Patient: Howie Delaney Age: [age] year old Date of : 1965 Procedure Date: 12/20/19 FELLOW / SALES MARKETING COORDINATOR: Ernst Babin MD, Hubert Avila MD ATTENDING [...] wires were utilized to obtain: hemodynamics: 5F [place] catheter; selective coronary angiography: 6F TIG [...] evaluation, please review the evaluation forms in [facility]. For details on monitored clinical parameters during the intra-service sedation time, please review the procedure nurse documentation in [facility]. Total sedation administered as follows: 100 [...] DOSE: Cumulative AK: 551.53 mGy Cumulative DAP: 14810 mGycm2 DIAGNOSTIC INTERPRETATIONS: 1) Elevated filling pressure with moderate pulmonary venous hypertension (RA 15 mmHg, PAD 30 mmHg, LVEDP 24 mmHg). 2) Normal coronaries RECOMMENDATIONS AFTER DIAGNOSTIC CATHETERIZATION: ?? Medical management for worsening dyspnea to achieve euvolemic status. Hubert Avila MD? Cardiovascular Medicine Fellow [facility] I was present for the entirety of the described procedure. Jazmine Booth MD Tylor Salazar MD CARDIAC SALES OPERATIONS ASSOCIATE RAD IANT * (ABNORMAL) BASIC METABOLIC PANEL (CALCIUM TOTAL) (12/20/2019 7:00 AM CDT) BUN 36(H) 7 - 26 mg/dL 12/20/2019 7:28 AM [facility] Creatinine 1.7(H) 0.6 - 1.2 mg/dL 12/20/2019 7:28 AM [facility] Sodium 137 136 - 145 mmol/L 12/20/2019 7:28 AM [facility] Potassium 4.1 3.5 - 4.5 mmol/L 12/20/2019 7:28 AM [facility] Chloride 107 98 - 107 mmol/L 12/20/2019 7:28 AM [facility] CO2 26 22 - 29 mmol/L 12/20/2019 7:28 AM [facility] Glucose 105 70 - 115 mg/dL 12/20/2019 7:28 AM [facility] Calcium 8.8 8.4 - 10.2 mg/dL 12/20/2019 7:28 AM CDT [facility] Anion Gap 8 8 - 18 12/20/2019 7:28 AM CDT [facility] BUN/Creatinine Ratio 21 7 - 23 12/20/2019 7:28 AM CDT [facility] Osmolality Calculated 293 270 - 300 mOsm/kg 12/20/2019 7:28 AM CDT [facility] eGFR 42(L) >60 mL/min/1.7 3 m2 12/20/2019 7:28 AM T [facility] Blood BLOOD SPECIMEN / Unknown Venipuncture / Unknown 12/20/2019 7:00 AM CDT 12/20/2019 7:04 AM CDT Tylor Salazar MD LAB - CHEMISTRY HERNANDEZ SAL [facility] Organization Address City/State/ZIP Co de Phone Number [address] [address], [facility] [phone] documented in this encounter Visit Diagnoses Diagnosis Chest pain, unspecified type documented in this encounter Administered Medications Inactive Administered Medications - up to 3 most recent administrations Medication Order MAR Action Action Date Dose Rate Site 0.9% NaCl infusion Intravenous, CONTINUOUS PRN, Starting on Sushila 12/20/19 at 0825, Until Sushila 12/20/19 at 0919 $ New Bag/Syringe 12/20/2019 8:25 AM CDT 50 mL/hr 50 mL/hr fentaNYL (PF) (SUBLIMAZE) injection Intravenous, ONCE PRN, Starting on Sushila 12/20/19 at 0836, Until Sushila 12/20/19 at 0905 $ Given 12/20/2019 9:05 AM CDT 50 mcg $ Given 12/20/2019 8:51 AM CDT 25 mcg $ Given 12/20/2019 8:36 AM CDT 25 mcg heparin injection Intravenous, ONCE PRN, Starting on Sushila 12/20/19 at 0900, Until Sushila 12/20/19 at 0900 $ Given 12/20/2019 9:00 AM CDT 8,200 Units heparinized saline 2 units/ml infusion Intravenous, CONTINUOUS PRN, Starting on Sushila 12/20/19 at 0825, Until Sushila 12/20/19 at 0825 $ New Bag/Syringe 12/20/2019 8:25 AM CDT 1,500 mL iopamidol (ISOVUE 370) 76 % contrast Intravenous, ONCE PRN, Starting on Sushila 12/20/19 at 0920, Until Sushila 12/20/19 at 0920 $ Given 12/20/2019 9:20 AM CDT 15 mL lidocaine (XYLOCAINE) 1 % injection Infiltration, ONCE PRN, Starting on Sushila 12/20/19 at 0849, Until Sushila 12/20/19 at 0900 $ Given 12/20/2019 9:00 AM CDT 4 mL $ Given 12/20/2019 8:51 AM CDT 2 mL $ Given 12/20/2019 8:49 AM CDT 2 mL midazolam (VERSED) injection Intravenous, ONCE PRN, Starting on Sushila 12/20/19 at 0837, Until Sushila 12/20/19 at 0837 $ Given 12/20/2019 8:37 A M CDT 0.5 mg nitroGLYCERIN 100 mcg/ml injection Intra-coronary, ONCE PRN, Starting on Sushila 12/20/19 at 0901, Until Sushila 12/20/19 at 0901 $ Given 12/20/2019 9:01 A M CDT 200 mcg documented in this encounter Active and Recently Administered Medications Times are shown in CDT. PRN Medication Order 12/18/2019 12/19/2019 12/20/2019 0.9% NaCl infusion (COMPLETED) Intravenous, CONTINUOUS PRN, Starting on Sushila 12/20/19 at 0825, Until Sushila 12/20/19 at 0919 0825 ($ New Bag/Syri nge - Provider: Yonas Jonas RN)0919 (Stopped - Provider: Yonas Jonas RN) fentaNYL (PF) (SUBLIMAZE) injection (COMPLETED) Intravenous, ONCE PRN, Starting on Sushila 12/20/19 at 0836, Until Sushila 12/20/19 at 0905 0836 ($ Given - Prov ider: Yonas Jonas RN)0851 ($ Given - Provider: Yonas Jonas RN)0905 ($ Given - Provider: Yonas Jonas, AVA) heparin injection (COMPLETED) Intravenous, ONCE PRN, Starting on Sushila 12/20/19 at 0900, Until Sushila 12/20/19 at 0900 0900 ($ Given - Prov ider: Yonas Jonas, AVA) heparinized saline 2 units/ml infusion (COMPLETED) Intravenous, CONTINUOUS PRN, Starting on Sushila 12/20/19 at 0825, Until Sushila 12/20/19 at 0825 0825 ($ New Bag/Syri nge - Provider: Yonas Jonas, RN - Comment: For table and Acist) iopamidol (ISOVUE 370) 76 % contrast (COMPLETED) Intravenous, ONCE PRN, Starting on Sushila 12/20/19 at 0920, Until Sushila 12/20/19 at 0920 0920 ($ Given - Prov ider: Jazmine Booth MD) lidocaine (XYLOCAINE) 1 % injection (COMPLETED) Infiltration, ONCE PRN, Starting on Sushila 12/20/19 at 0849, Until Sushila 12/20/19 at 0900 0849 ($ Given - Prov ider: Ernst Babin MD - Comment: R radial)0851 ($ Given - Provider: Ernst Babin MD - Comment: R radial)0900 ($ Given - Provider: Ernst Babin MD - Comment: R radial) midazolam (VERSED) injection (COMPLETED) Intravenous, ONCE PRN, Starting on Sushila 12/20/19 at 0837, Until Sushila 12/20/19 at 0837 0837 ($ Given - Prov ider: Yonas Jonas, AVA) nitroGLYCERIN 100 mcg/ml injection (COMPLETED) Intra-coronary, ONCE PRN, Starting on Sushila 12/20/19 at 0901, Until Sushila 12/20/19 at 0901 0901 ($ Given - Prov ider: Jazmine Booth MD) documented in this encounter Care Teams Fat Pressroom Worker Relationship Specialty Start Date End Date Natasha Bates PA-C [address] [place] [phone] PCP - General 03/21/19 06/20/23 documented as of this encounter
--- OUTSIDE RECORDS SUMMARY | 2024-05-22 05:42 | XMS_ITS | Encounter Summary ---
Author Organization [facility] Health Address [address] [facility] [place] [address] Care Team Providers Care Pie Icer Machine Name Role Phone Natasha Bates PA-C Primary Care Provider + Reason for Visit * Reason Onset Date Comments Follow-up 07/01/2020 Encounter Details Date Type Department Care Team (Late st Contact Info) Description 07/01/2020 Telephone [facility] [address] [facility] [address] [place], [place] [id number] Rajni Webb RN Follow-up Social History Tobacco [...] Telephone Encounter - Rajni Webb RN - 07/03/2020 2:48 PM PARTS BACK COUNTER MAN Labs reviewed by Dr Moreno Called pt with her recommendations Pt to dc spironolactone Will repeat BMP week before next office visit-08/07/2020 Lab ordered mailed to pt S BACK COUNTER MAN * Telephone Encounter - Rajni Webb RN - 07/02/2020 9:02 AM PARTS BACK COUNTER MAN Called pt he states that he is feeling ok this am-is aware that Dr Moreno agrees with recommendation if pt with chest pressure and dizziness and palpitations to ER Pt states he had labs @ PCP office and they will fax to this office Pt aware we have not received results S BACK COUNTER MAN * Telephone Encounter - Rajni Webb RN - 07/01/2020 3:16 PM PARTS BACK COUNTER MAN Pt called and left vm message that he was feeling dizzy, lightheaded and having palpitations Called pt back-asked about sxs-he states he has been out of town and feeling as above last 4-5 days Pt also states that he is feeling chest pressure CR 1.6 K+ 5.5 06/18/2920 spironolactone decreased to 12.5 and pt was to get repeat labs Pt aware that for increased chest pressure/pain along with palpitations and dizziness he should be evaluated in ER. Pt states he understands and will call back with update or for any change in status. S BACK COUNTER MAN documented in this encounter Plan of Treatment Not on file documented as of this encounter Procedures Procedure Name Priority Date/Time Associated Diagnosis Comments BASIC METABOLIC PANEL (CALCIUM TOTAL) Routine 08/18/2020 5:04 PM CDT LVH (left ventricular hypertrophy) documented in this encounter Results * (ABNORMAL) BASIC METABOLIC PANEL (CALCIUM TOTAL) (08/18/2020 5:04 PM CDT) Glucose 83 65 - 99 mg/dL [facility] INSURANCE BILL BUN 31(H) 6 - 24 mg/dL [facility] INSURANCE BILL Creatinine 1.74(H) 0.76 - 1.27 mg/dL [facility] INSURANCE BILL eGFR by MDRD 43(L) >59 mL/min/1.7 3 [facility] INSURANCE BILL eGFR by MDRD 50(L) >59 mL/min/1.7 3 [facility] INSURANCE BILL BUN/Creatinine Ratio 18 9 - 20 [facility] INSURANCE BILL Sodium 141 134 - 144 mmol/L [facility] INSURANCE BILL Potassium 4.8 3.5 - 5.2 mmol/L [facility] INSURANCE BILL Chloride 100 96 - 106 mmol/L [facility] INSURANCE BILL CO2 26 20 - 29 mmol/L [facility] INSURANCE BILL Calcium 9.0 8.7 - 10.2 mg/dL [facility] INSURANCE BILL Comment:FASTING Blood BLOOD SPECIMEN / Unknown 08/18/2020 5:04 PM CDT 08/18/2020 Narrative Resulting Agency Comment Lab Testing performed at: [facility] [address] [facility] ??[facility] [id number] Muriel Moreno MD LAB - CHEMISTRY HERNANDEZ SAL [facility] INSURANCE BILL [address] [place] [address] documented in this encounter Visit Diagnoses Diagnosis LVH (left ventricular hypertrophy)- Primary Cardiomegaly documented in this encounter Care Teams Pie Icer Machine Relationship Specialty Start Date End Date Natasha Bates PA-C [address] [place] [phone] PCP - General 03/21/19 06/20/23 documented as of this encounter
--- OUTSIDE RECORDS SUMMARY | 2024-05-22 05:42 | XMS_ITS | Encounter Summary ---
Author Organization [facility] Health Address [address] [place] [address] Care Team Providers Care Show Dog Trainer Name Role Phone Natasha Bates PA-C Primary Care Provider + Reason for Visit * Reason Comments General Encounter Details Date Type Department Care Team (Late st Contact Info) Description 02/01/2020 Telephone [facility] - [address] [place] [phone] Kimberly Solis, RN General Social History Tobacco Use Types Packs/Day Years [...] encounter Miscellaneous Notes * Telephone Encounter - Kimberly Solis RN - 02/01/2020 4:12 PM CDT Patient calls in to see if there were any new messages from Dr. Camacho Oneal about his previous phone call this AM. He states that his PCP told him that he has fluid around his heart, I encouraged him that he needed go to an ER for treatment. Patient asked if Dr. Dima Oneal would direct admit him to [facility], I told him he needed to come over to ER to be seen. Patient asks that Dr. Camacho Oneal call himback when he gets the messages. documented in this encounter Plan of Treatment Not on file documented as of this encounter Visit Diagnoses Not on filedocumented in this encounter Care Teams Show Dog Trainer Relationship Specialty Start Date End Date Natasha Bates PA-C [address] [place] [address] PCP - General 03/21/19 06/20/23 documented as of this encounter
--- OUTSIDE RECORDS SUMMARY | 2024-05-22 05:42 | XMS_ITS | Encounter Summary ---
Author Organization [facility] Health Address [address] [facility] [place] [address] Care Team Providers Care Welder 2Nd Shift Name Role Phone Natasha Bates PA-C Primary Care Provider + Encounter Details Date Type Department Care Team (Latest Contact Info) Description 12/14/2019 Travel Social History Tobacco Use Types Packs/Day [...] No 11/06/2019 documented as of this encounter Plan of Treatment Not on file documented as of this encounter Visit Diagnoses Not on filedocumented in this encounter Care Teams Welder 2Nd Shift Relationship Specialty Start Date End Date Natasha Bates PA-C [facility] [place] [address] PCP - General 03/21/19 06/20/23 documented as of this encounter
--- OUTSIDE RECORDS SUMMARY | 2024-05-22 05:42 | XMS_ITS | Encounter Summary ---
Author Organization [facility] Health Address [address] [facility] [place] [address] Care Team Providers Care Mannequin Sander And Finisher Name Role Phone Natasha Bates PA-C Primary Care Provider + Reason for Visit * Reason Onset Date Comments MEDICATION REFILL 12/07/2019 Encounter Details Date Type Department Care Team (Late st Contact Info) Description 12/07/2019 Refill [facility] [id number] [place] [address] Muriel Moreno MD [id number] [place] [address] MEDICATION REFILL Social History Tobacco Use Types Packs/Day Years [...] Telephone Encounter - Rajni Webb RN - 12/10/2019 10:42 AM CDT start amlodipine 5 mg daily ??per 12/07/2019 office note documented in this encounter Plan of Treatment Not on file documented as of this encounter Visit Diagnoses Not on filedocumented in this encounter Care Teams Mannequin Sander And Finisher Relationship Specialty Start Date End Date Natasha Bates PA-C [address] [place] [phone] PCP - General 03/21/19 06/20/23 documented as of this encounter
--- OUTSIDE RECORDS SUMMARY | 2024-05-22 05:42 | XMS_ITS | Encounter Summary ---
Author Organization [facility] Health Address [address] [place] [address] Care Team Providers Care Absorber Operator Name Role Phone Natasha Bates PA-C Primary Care Provider + Encounter Details Date Type Department Care Team (Late st Contact Info) Description 02/19/2020 Orders Only [facility] [address] [facility] [address] [place] [address] Tylor Salazar MD [address] [facility] [address] [place] [address] Heart failure with preserved ejection fraction, unspecified HF chronicity (HCC) Social History Tobacco Use Types Packs/Day [...] Comments BASIC METABOLIC PANEL (CALCIUM TOTAL) Routine 02/19/2020 12:00 AM CDT Heart failure with preserved ejection fraction, [...] 10:36 AM CDT CALLED TO [address] VAZQUEZ, 02-19-20,8:25PM,[facility],[place] Resulting Agency Comment Lab Testing performed at: [facility] [address] [facility] ??[facility] [id number] Tylor Salazar MD LAB - CHEMISTRY HERNANDEZ SAL [facility] ACCOUNT BILL [address] [place] [address] documented in this encounter Visit Diagnoses Diagnosis Heart failure with preserved ejection fraction, unspecified HF chronicity (HCC) documented in this encounter Care Teams Absorber Operator Relationship Specialty Start Date End Date Natasha Bates PA-C [address] [place] [address] PCP - General 03/21/19 06/20/23 documented as of this encounter
--- OUTSIDE RECORDS SUMMARY | 2024-05-22 05:42 | XMS_ITS | Encounter Summary ---
Author Organization [facility] Health Address [address] [facility] [place] [address] Care Team Providers Care Instrumental Musician Name Role Phone Natasha Bates PA-C Primary Care Provider + Reason for Visit * Reason Comments Holter Monitor READ Encounter Details Date Type Department Care Team (Late st Contact Info) Description 08/14/2020 4:15 PM CDT Cardiology Testing [facility] Cardiology [address] [facility] [address] [place] [address] Palpitations Social History Tobacco Use Types Packs/Day [...] No 02/02/2020 documented as of this encounter Procedure Notes * Luis Wylie MD - 08/19/2020 8:44 PM CDTAssociated Order(s): PROC ROAD MAKER READ, 14 DAY Pre-Procedure Diagnose(s): Palpitations HOLTER MONITOR REPORT: Patient name: Howie Delaney Patient : 1965 Patient Age: [age] year old Indication: Palpitations [...] Average Heart Rate was 70 bpm. 1. 289 supraventricular ectopic beats occurred (0.03 % of complexes) mainly as isolated ectopy. 3 couplets and 8 runs of supraventricular ectopy occurred, with the longest run lasting 15 complexes latrell rate of 110 BPM, and the fastest run at a rate of 128 BPM. 2. 0 ventricular ectopic beats occurred. 3. No significant bradycardia or pauses occurred. 4. Atrial fibrillation/flutter was not detected Manually Triggered events: There was 1 manually triggered events. During this triggered episode, the patient reported no symptoms and sinus rhythm without rhythm or conduction abnormalities were noted. Other tracings mainly demonstrated sinus rhythm with rare ectopic atrial beats. Conclusion: No sustained arrhythmias. documented in this encounter Plan of Treatment Not on file documented as of this encounter Procedures Procedure Name Priority Date/Time Associated Diagnosis Comments PROC ROAD MAKER READ, 14 DAY Routine 08/19/2020 8:44 PM CDT Palpitations documented in this encounter Results * Holter Read - 14 Day (08/19/2020 [...] Luis Wylie MD PROCEDURE/MINOR SURG ICAL ORDERABLES documented in this encounter Visit Diagnoses Diagnosis Palpitations- Primary documented in this encounter Care Teams Instrumental Musician Relationship Specialty Start Date End Date Natasha Bates PA-C [address] [place] [phone] PCP - General 03/21/19 06/20/23 documented as of this encounter
--- OUTSIDE RECORDS SUMMARY | 2024-05-22 05:42 | XMS_ITS | Encounter Summary ---
Author Organization [facility] Health Address [address] [facility] [place] [address] Care Team Providers Care Core Analysis Operator Name Role Phone Natasha Bates PA-C Primary Care Provider + Encounter Details Date Type Department Care Team (Late st Contact Info) Description 05/08/2020 11:00 AM ETIOLOGIST Video Visit [facility] Cardiology [address] [facility] [address] [place] [address] Tylor Salazar MD [address] [facility] [address] [place] [address] Heart failure with preserved ejection [...] COVID-19? No / Unsure 04/30/2020 1:48 PM ETIOLOGIST documented as of this encounter Last Filed Vital Signs Vital Sign Reading Time Taken Comments Blood Pressure 126/72 05/08/2020 10:41 AM ETIOLOGIST Pulse - - Temperature - - Respiratory Rate - - Oxygen Saturation - - Inhaled Oxygen Concentration - - Weight 168.3 kg (371 lb) 05/08/2020 10:41 AM ETIOLOGIST Height 185.4 cm (6' 1 ) 05/08/2020 10:41 AM ETIOLOGIST Body Mass Index 48.95 05/08/2020 10:41 AM ETIOLOGIST documented in this encounter Functional Status Functional [...] as of this encounter Progress Notes * Muriel Moreno MD - 05/08/2020 11:16 AM CST Patient Verification & Telemedicine Based Consent I am proceeding with this evaluation at the direct request of the patient. I have verified this is the correct patient and have obtained verbal consent from the patient/surrogate to perform this voluntary telemedicine encounter evaluation. I have explained risks (including potential loss of confiden tiality), benefits, alternatives, and the potential need for subsequent face to face care. Patient/surrogate understands that there is a risk of medical inaccuracies given that our recommendations will be made based on reported data. Knowing that there is a risk that this information is not reported accurately, and that the telemedicine audio, or data feed may be incomplete, the patient agrees toproceed with evaluation and holds us harmless knowing these risks. In this evaluation, we will be providing recommendations only. The patient/surrogate has been notified that other healthcare professionals (including students, residents and technical personnel) may be involved in this audio evaluation. All laws concerning confidentiality and patient access to medical records and copies of medicalrecords apply to telemedicine. I have reviewed this above verification and consent paragraph with the patient/surrogate. Patient current location: In a Parked Car Type of encounter: Video Patient seen and examined with the fellow. I agree with their findings, assessment, and plan. In addition I note: HPI: This a telephone visit for Mr. Delaney For ongoing evaluation of chest pain and HFpEF. Since 05/2019 - has had ischemic eval for CP with breana scan stress - normal. LHC also normal coronaries but increased filling pressures. Currently on 40 BID of lasix - this was increased from 20 BID by nephrology. This works well - getsswelling when standing for a long time at work. No chest pain. No increased SOB. Review of Systems: History obtained from the [...] daily with morning and evening meal ??? gabapentin (NEURONTIN) 300 MG capsule Take 300 mg by mouth 3 times daily ??? isosorbide mononitrate CR 24hr (IMDUR) 30 MG tablet Take 1.5 tablets by mouth once daily 90 tablet 4 No current facility-administered medications for this visit. Physical Examination: General: NAD on the video Pulm: no labored breathing Data: CBC: Recent Labs Component Name 02/04/20 0518 02/03/20 0402 02/02/20 0434 WBC 9.0 9.5 11.6* RBC 4.54 4.20* 4.13* HGB 12.7* 12.1* 11.7* HCT 40.7 37.8* 37.7* BMP: Recent Labs Component Name 02/19/20 1532 02/19/20 0000 02/13/20 1416 02/04/20 0518 02/03/20 0402 02/02/20 0436 NA - - - 136 138 138 CL - - - 96* 97* 98 CO2 30 30 32* 34* 33* 34* BUN 41* 41.0* 40* 28* 28* 27* CREATININE 1.56* 1.56* 1.78* 1.4* 1.5* 1.4* CALCIUM 9.4 9.40 9.3 8.9 9.0 9.0 Magnesium: No results for input(s): MG in the last 00814 hours. Phosphorus: Recent Labs Component Name 12/26/19 1507 11/06/19 0559 11/03/19 2337 PHOS 3.9 3.1 3.9 Coagulation: Recent Labs Component Name 12/14/19 0745 11/05/19 0436 11/03/19 2337 PT 13.1 13.6 13.4 INR 1.0 1.1 1.1 Cardiac profile: Recent Labs Component Name 02/01/20 2014 11/03/19 2337 06/11/19 0556 06/11/19 [...] HTN; Patient has enlarged PA on CT Stop amlodipine (which may be contribute to leg swelling). Start aldactone 25 daily - however need the Cr and K level after starting Continue all other meds Continue Imdure for anginal pain (possible microvascular disease) Rest of plan per fellow note. Total of 25 minutes was spent reviewing history, current symptoms, medications, and plan. Muriel Moreno MD, MD Enrollment Management Coordinator [facility] 05/08/2020 LOGIST * Tylor Salazar MD - 05/08/2020 11:00 AM CST [facility] History Of Present Illness: Howie Delaney is a 54 year old with CKD, HTN, morbid obesity, HLD who presents to establish care. SOB with 1-2 flights. Sleep study ordered. Remote history of cardiac catherization 10 years ago at [facility], per patient report. No chest pain, chest [...] BID to 80mg BID. Feels better today. 05/08/20: Feeling back to baseline despite having some lower extremity edema after a long days of work standing. Denies chest discomfort, light- headedness/dizziness. BP controlled. Bariatric surgery in May, at [facility]. Today's visit was conducted virtually due to COVID-19 countermeasures. The patient has given verbalconsent to have today's visit conducted by this same means with treatment provided remotely. The patient verbally consents to the billing and collection practices of the provider's medical group. Patient location: Home This encounter was performed using: audio and video Total time spent on visit on date of encounter is: 25 minutes with 10 minutes spent in medical discussion FHx: -HTN SHx: -Tobacco: Denies -EtoH: Occasional [...] daily with morning and evening meal ??? gabapentin (NEURONTIN) 300 MG capsule Take 300 mg by mouth 3 times daily ??? isosorbide mononitrate CR 24hr (IMDUR) 30 MG tablet Take 1.5 tablets by mouth once daily 90 tablet 4 No current facility-administered medications for this visit. Allergies: No Known Allergies OBJECTIVE: Vitals: 05/08/20 1041 BP: 126/72 Weight: (!) 371 lb Height: 6' 1 Body mass index is 48.95 kg/m??. PHYSICAL EXAM: Not obtained as this was a tele-medicine visit. LABS: Reviewed EKG: Reviewed. HOLTER/EVENT MONITOR: TTE/SEAN: [...] STRESS: 2018 Lexiscan normal, per patient report ([facility]) 06/11/2019 Lexiscan Findings: The image quality is [...] of 71%. CTA CORONARY: n/a CATHERIZATIONS: 11/2019 C/[facility] 1) Elevated filling pressure with moderate pulmonary venous hypertension (RA 15 mmHg, PAD 30 mmHg, LVEDP 24 mmHg). 2) Normal coronaries Assessment/Plan: HFpEF -TTE with diastolic dysfunction -Lasix 40mg BID (BMP pending) -Start Spironolactone 25mg qday for HFpEF and in lieu of amlodipine 5mg (as it can cause LE edema) -Coreg 25mg BID -Imdur 45mg qday for atypical chest pain (can consider discontinuing at next OV) Morbid Obesity -Coronary angiogram normal with LVEDP 24mmHg -Low risk patient from cardiac stand-point; will need meticulous volume status assessment jerry-op (pre-op risk stratification for bariatric surgery at [facility] signed). -Atorvastatin 40mg qday HLD -Atorvastatin 40mg qday RTC 3 months. Tylor Salazar MD Cardiovascular Fellow [facility] P: [phone] documented in this encounter Plan of Treatment Not on file documented as of this encounter Visit Diagnoses Diagnosis Heart failure with preserved ejection fraction, unspecified HF chronicity (HCC)- Primary documented in this encounter Care Teams Core Analysis Operator Relationship Specialty Start Date End Date Natasha Bates PA-C [address] [place] [phone] PCP - General 03/21/19 06/20/23 documented as of this encounter
--- OUTSIDE RECORDS SUMMARY | 2024-05-22 05:42 | XMS_ITS | Encounter Summary ---
Author Organization [facility] Health Address [address] [facility] [place] [address] Care Team Providers Care Benzene Still Utility Operator Name Role Phone Natasha Bates PA-C Primary Care Provider + Encounter Details Date Type Department Care Team (Late st Contact Info) Description 07/29/2020 Orders Only [facility] - Nephrology [address] [place] [address], [place] [address] Gerardo Zavala MD [address] [place] [address] [place] [id number] Essential hypertension ; CRD (chronic renal disease), stage II [...] Diagnosis Comments URINALYSIS MICROSCOPIC ONLY REFLEXED Routine 08/18/2020 4:59 PM CDT Essential hypertension CRD (chronic renal disease), stage II URINALYSIS W/MICROSCOPIC NO CULTURE Routine 08/18/2020 4:59 PM CDT Essential hypertension CRD (chronic renal disease), stage II CBC W AUTO DIFFERENTIAL Routine 08/18/2020 4:59 PM CDT Essential hypertension CRD (chronic renal disease), stage II RENAL FUNCTION PANEL Routine 08/18/2020 4:59 PM CDT Essential hypertension CRD (chronic renal disease), stage II PROTEIN CREATININE RATIO URINE RANDOM PNL Routine 08/18/2020 4:59 PM CDT Essential hypertension CRD (chronic renal disease), stage II documented in this encounter Results * (ABNORMAL) URINALYSIS MICROSCOPIC ONLY REFLEXED (08/18/2020 4:59 PM CDT) WBC UA 0-5 0 - 5 /hpf [facility] INSURANCE BILL RBC UA 0-2 0 - 2 /hpf [facility] INSURANCE BILL Epithelial Cells (non renal) 0-10 0 - 10 /hpf [facility] INSURANCE BILL Epithelial Cells (renal) NOT NEEDED [facility] INSURANCE BILL Comment:Ancillary determined the test is not needed. Casts ua Present(A) None seen /lpf [facility] INSURANCE BILL Casts UA Hyaline casts N/A [facility] INSURANCE BILL Crystals UA NOT NEEDED [facility] INSURANCE BILL Comment:Ancillary determined the test is not needed. Crystals UA NOT NEEDED [facility] INSURANCE BILL Comment:Ancillary determined the test is not needed. Mucus UA Present Not Estab. [facility] INSURANCE BILL Bacteria UA None seen None seen/Few [facility] INSURANCE BILL Yeast UA NOT NEEDED [facility] INSURANCE BILL Comment:Ancillary determined the test is not needed. Trichomonas UA NOT NEEDED [facility] INSURANCE BILL Comment:Ancillary determined the test is not needed. Comment Urine NOT NEEDED [facility] INSURANCE BILL Comment: FASTING Ancillary determined the test is not needed. 08/18/2020 4:59 PM CDT 08/18/2020 Narrative Resulting Agency Comment Lab Testing performed at: [facility] ??[facility] [id number] Gerardo Oneal MD LAB - UR INALYSIS ORDERABLES Performing Organization Address [facility] Co de Phone Number [facility] INSURANCE BILL [address] [place] [address] * (ABNORMAL) PROTEIN CREATININE RATIO URINE RANDOM PNL (08/18/2020 4:59 PM CDT) Pathologist [facility] Creatinine Urine 165.7 Not Estab. mg/dL [facility] INSURANCE BILL Protein Urine 72.6 Not Estab. mg/dL [facility] INSURANCE BILL Protein/Creatin ine Ratio 438(H) 0 - 200 mg/g creat [facility] INSURANCE BILL Comment:FASTING Urine URINE SPECIMEN OBTAINED BY CLEAN CATCH PROCEDURE / Unknown 08/18/2020 4:59 PM CDT 08/18/2020 Narrative Resulting Agency Comment Lab Testing performed at: [facility] [address] ??[facility] [id number] Gerardo Oneal MD LAB - UR INE CHEMISTRY ORDERABLES Performing Organization Address [facility] [[email or web address]] de Phone Number [facility] INSURANCE BILL [address] [place] [address] * (ABNORMAL) URINALYSIS W/MICROSCOPIC NO CULTURE (08/18/2020 4:59 PM CDT) Specific [place] UA 1.017 1.005 - 1.030 [facility] INSURANCE BILL pH UA 5.5 5.0 - 7.5 [facility] INSURANCE BILL Color UA Yellow Yellow [facility] INSURANCE BILL Appearance Clear Clear [facility] INSURANCE BILL Leukocyte UA Negative Negative [facility] INSURANCE BILL Protein UA 2+(A) Negative/Tra ce [facility] INSURANCE BILL Glucose UA Negative Negative [facility] INSURANCE BILL Ketone UA Trace(A) Negative [facility] INSURANCE BILL Occult Blood Urine [...] OBTAINED BY CLEAN CATCH PROCEDURE / Unknown 08/18/2020 4:59 PM CDT 08/18/2020 Narrative Resulting Agency Comment Lab Testing performed at: [facility] ??[facility] [id number] Gerardo Oneal MD LAB - UR INALYSIS ORDERABLES [facility] INSURANCE BILL [address] [place] [address] * (ABNORMAL) CBC WITH DIFFERENTIAL (08/18/2020 4:59 PM CDT) WBC 12.7(H) 3.4 - 10.8 x10E3/uL [facility] INSURANCE BILL RBC 4.60 4.14 - 5.80 x10E6/uL [facility] INSURANCE BILL Hemoglobin 13.7 13.0 - 17.7 g/dL [facility] INSURANCE BILL Hematocrit 41.6 37.5 - 51.0 % [facility] INSURANCE BILL MCV 90 79 - 97 fL [facility] INSURANCE BILL MCH 29.8 26.6 - 33.0 pg [facility] INSURANCE BILL MCHC 32.9 31.5 - 35.7 g/dL [facility] INSURANCE BILL RDW 15.3 11.6 - 15.4 % [facility] INSURANCE BILL Platelet Count 223 150 - 450 x10E3/uL [facility] INSURANCE BILL Granulocytes % 55 Not Estab. % [facility] INSURANCE BILL Lymphocytes % 28 Not Estab. % [facility] INSURANCE BILL Monocytes % 7 Not Estab. % [facility] INSURANCE BILL Eosinophils % 9 Not Estab. % [facility] INSURANCE BILL Basophils % 1 Not Estab. % [facility] INSURANCE BILL Immature Cells NOT NEEDED [facility] INSURANCE BILL Comment:Ancillary determined the test is not needed. Granulocytes Absolute 7.0 1.4 - 7.0 x10E3/uL [facility] INSURANCE BILL Lymphocytes Absolute 3.5(H) 0.7 - 3.1 x10E3/uL [facility] INSURANCE BILL Monocytes Absolute 0.9 0.1 - 0.9 x10E3/uL [facility] INSURANCE BILL Eosinophils Absolute 1.2(H) 0.0 - 0.4 x10E3/uL [facility] INSURANCE BILL [...] not needed. Blood BLOOD SPECIMEN / Unknown 08/18/2020 4:59 PM CDT 08/18/2020 Narrative Resulting Agency Comment Lab Testing performed at: [facility] ??[facility] [id number] Gerardo Oneal MD LAB - HE MATOLOGY ORDERABLES [facility] INSURANCE BILL [address] [place] [address] * (ABNORMAL) RENAL FUNCTION PANEL (08/18/2020 4:59 PM CDT) Glucose 82 65 - 99 mg/dL [facility] INSURANCE BILL BUN 30(H) 6 - 24 mg/dL [facility] INSURANCE BILL Creatinine 1.65(H) 0.76 - 1.27 mg/dL [facility] INSURANCE BILL eGFR by MDRD 46(L) >59 mL/min/1.7 3 [facility] INSURANCE BILL eGFR by MDRD 53(L) >59 mL/min/1.7 3 [facility] INSURANCE BILL BUN/Creatinine Ratio 18 9 - 20 [facility] INSURANCE BILL Sodium 138 134 - 144 mmol/L [facility] INSURANCE BILL Potassium 4.6 3.5 - 5.2 mmol/L [facility] INSURANCE BILL Chloride 98 96 - 106 mmol/L [facility] INSURANCE BILL CO2 24 20 - 29 mmol/L [facility] INSURANCE BILL Calcium 9.0 8.7 - 10.2 mg/dL [facility] INSURANCE BILL Phosphorus 3.7 2.8 - 4.1 mg/dL [facility] INSURANCE BILL Albumin 3.7(L) 3.8 - 4.9 g/dL [facility] INSURANCE BILL Comment:FASTING Blood BLOOD SPECIMEN / Unknown 08/18/2020 4:59 PM CDT 08/18/2020 Narrative Resulting Agency Comment Lab Testing performed at: [facility] [address] ??[facility] [id number] Gerardo Oneal MD LAB - CH EMISTRY ORDERABLES [facility] INSURANCE BILL [address] [place] [address] documented in this encounter Visit Diagnoses Diagnosis Essential hypertension- Primary CRD (chronic renal disease), stage II Chronic kidney disease, Stage II (mild) documented in this encounter Care Teams Benzene Still Utility Operator Relationship Specialty Start Date End Date Natasha Bates PA-C [address] [place] [phone] PCP - General 03/21/19 06/20/23 documented as of this encounter
--- OUTSIDE RECORDS SUMMARY | 2024-05-22 05:42 | XMS_ITS | Encounter Summary ---
Author Organization [facility] Health Address [address] [facility] [place] [address] Care Team Providers Care Sulfur Burner Name Role Phone Natasha Bates PA-C Primary Care Provider + Reason for Visit * Reason Comments Follow-up some shortness of br eath; lasix lower 2 weeks ago by clinical courier noticed swelling in legs Encounter Details Date Type Department Care Team (Late st Contact Info) Description 02/27/2020 1:00 PM CDT Office Visit [facility] - Nephrology [address] [place] [address], [place] [address] Gerardo Zavala MD [address] [place] [address] [place] [address] CKD (chronic kidney disease) stage 2, GFR 60-89 ml/min (Primary Dx) Social History Tobacco Use Types [...] Sign Reading Time Taken Comments Blood Pressure 131/70 02/27/2020 12:45 PM CDT Pulse 68 02/27/2020 12:45 PM CDT Temperature 36.2 ??C (97.1 ??F) 02/27/2020 1 2:45 PM CDT Respiratory Rate - - Oxygen Saturation 95% 02/27/2020 12: 45 PM CDT Inhaled Oxygen Concentration - - Weight 171.7 kg (378 lb 9.6 oz) 020 12:45 PM CDT Height 185.4 cm (6' 1 ) 02/27/2020 12:4 5 PM CDT Body Mass Index 49.95 02/27/2020 12:45 PM CDT documented in this encounter Functional [...] Progress Notes * Angela Sheikh MD - 02/27/2020 1:38 PM CDT Nephrology Clinic Note CC: f/u for CKD stage 3 and hyperkalemia HPI: Pt is a 54 year old male with PMH of MIRELLA, pulmonary HTN, HFpEF, CKD stage 3 and hyperkalemia who visit this clinic for follow up CKD and potassium level. He said he has home O2 since May 2019 and CPAP for six months. He states [facility] with shortness of breath (sPO2: 87).and swelling in his legs 3-4 weeks ago and stayed 3 days at ER. After taking Lasix 80 mg tb BID (about 2 weeks), He is on lasix 20 mg BID now as his clinical courier suggested him. The patient also states he lost 13 pounds but gained again. His bl crea level 1.3-1.4 between 03/2019-10/2019. Crea level increased to 1.7 on 12/14/2019. Crea level is stable at 1.56 last month. 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 This was followed by placement of AUS in 2018. Review of Systems: Review of Systems Constitutional: Negative for chills and fever. Respiratory: Positive for cough, shortness of breath and wheezing. Negative for hemoptysis and sputum production. Cardiovascular: Positive for leg swelling. Negative for chest pain and palpitations. Gastrointestinal: Negative for abdominal pain, diarrhea, nausea and vomiting. Genitourinary: Negative for dysuria and flank pain. Neurological: Positive for weakness. Negative for headaches. Chronic Conditions: MIRELLA, Pulmonary HTN CKD Stage 3 Past Medical History: Past Medical History: Diagnosis [...] pulmonary hypertension ??? Other Nephew pulmonary hypertension Family history of renal disease: Allergies: No Known Allergies Medications: Current Outpatient [...] 1 tablet by mouth once daily ??? atorvastatin (LIPITOR) 40 MG tablet every 24 hours ??? busPIRone (BUSPAR) 5 MG tablet Take 10 mg by mouth 2 times daily ??? carvedilol (COREG) 25 MG tablet Take 25 mg by mouth 2 times daily with morning and evening meal ??? furosemide (LASIX) 40 MG tablet Take 2 tablets by mouth 2 times daily for 90 days (Patient taking differently: Take 20 mg by mouth 2 times daily ) ??? gabapentin (NEURONTIN) 300 MG capsule Take 300 mg by mouth 3 times daily ??? isosorbide mononitrate CR 24hr (IMDUR) 30 MG tablet Take 1.5 tablets by mouth once daily ??? PARoxetine (PAXIL) 10 MG tablet Take 10 mg by mouth once daily No current facility-administered medications for this visit. Vitals: Vitals: 02/27/20 1245 BP: 131/70 Pulse: 68 Temp: 97.1 ??F (36.2 ??C) SpO2: 95% Weight: (!) 171.7 kg (378 lb 9.6 oz) Height: 1.854 m (6' 1 ) Physical Exam: General: morbid obesity, in nad, no O2 therapy Cardiovascular: s1s2, rrr, no murmur, no rubs Respiratory: lungs clear b/l GI: obese, abd distend, bs+ Extremities: Bilaterally LE edema + no joint deformities Neuro: grossly normal Psych: normal mood Skin: no skin lesions apparent Data Review Recent Labs Component Name 02/04/20 0518 02/03/20 0402 02/02/20 0434 02/01/20201312/14/19 0745 11/05/19 0436 11/03/19 2337 HGB 12.7* 12.1* 11.7* 12.4* 12.1* - 11.9* 12.1* WBC 9.0 9.5 11.6* 12.4* 11.3* - 10.8* 12.4* HCT 40.7 37.8* 37.7* 40.3 39.4 - 39.0 38.5* MCV 89.6 90.0 91.3 91.0 92.7 - 94.7 92.8 PT - - - - 13.1 - 13.6 13.4 INR - - - - 1.0 - 1.1 1.1 - = values in this interval not displayed. ) Recent Labs Component Name 02/19/20 1532 02/19/20 0000 02/13/20 1416 02/04/20 0518 02/03/20 0402 02/02/20 0436 02/01/20201312/26/19 1507 11/06/19 0559 11/03/19 2337 10/30/19 1350 06/13/19 0355 BUN 41* 41.0* 40* 28* 28* 27* 30* 27* - 18 - 31* - 27* - 21 CREATININE 1.56* 1.56* 1.78* 1.4* 1.5* 1.4* 1.5* 1.5* - 1.3* - 1.4* - 1.41* - 1.5* NA - - - 136 138 138 139 143 - 144 - 146* - - - 142 CL - - - 96* 97* 98 98 105 - 107 - 107 - - - 102 CO2 30 30 32* 34* 33* 34* 35* 34* - 30* - 30* - 30* - 29 CALCIUM 9.4 9.40 9.3 8.9 9.0 9.0 9.3 8.6 - 8.5 - 8.9 - 9.3 - 9.2 PHOS - - - - - - - 3.9 - 3.1 - 3.9 - 3.5 - 3.5 - = values in this interval not displayed. Recent Labs Component Name 02/01/20201312/26/19 1507 11/06/19 0559 11/03/19 2337 06/13/19 0355 06/11/19 2229 06/10/19 2257 ALB 2.9* 2.8* 2.5* 2.7* 2.7* 2.7* 2.9* TBILI 0.7 - - 0.5 - 0.6 0.4 ALT 32 - - 15 - 18 21 AST 28 - - 18 - 18 28 No results for input(s): PHART, GFS4LWE, PO2ART, UAW8DJK in the last 89981 hours. Ur WBC: Ur RBC: Ur blood: Ur Protein: UPCr: Assessment and Plan: Pt is a 54 year old male with PMH of MIRELLA, pulmonary HTN, HFpEF, CKD stage 3 and hyperkalemia who admitted to this clinic for follow up CKD stage 3 and hyperkalemia. CKD stage 3 - Most recent Cr was 1.56 on 02/19/2020. Increased creatinine levels may be due to heart failure and2/2 diuretic therapy - ordered renal panels, urin analysis, complement C3/4, and urine prot/crea ratio - Recommend to avoid nephrotoxins i.e. chronic NSAID use Hyperkalemia - last K level is 4.9 on 02/19/2020 MIRELLA Pulmonary HTN - on CPAP and home O2 therapy Patient was seen and discussed with attending physician, Dr. Oneal-Camacho Sheikh MD Nephrology Fellow #[phone] Associated attestation - Gerardo Zavala MD - 02/27/2020 4:41 PM CDT I have seen and examined the patient with house-staff at outpatient clinic. I agree with the house-staff note with the additions/modificiations listed below. Patient is a 54 year old male who presents for follow up of CKD stage 3. Baseline creatinine around1.3 to 1.4, and episodes of hyperkalemia. Patient has history significant for pulmonary HTN, MIRELLA, heart failure with preserved EF. Patient was admitted for for presyncope in October 2019. A cardiac catheterization showed normal coronaries, elevated filling pressures. RA 15 mmHg, PAP 30 mmHg, LVEDP 24 mmHg. Recently admitted to ED or SOB and edema. Improved with increasing dose of furosemide. Patientstates he lost about 13 pounds, but has gained it again since his furosemide dose was decreased from 80 mg BID to 20 mg BID. In addition, he is been having SOB with regular exercise. Creatinine during recent admission increased to 1.78 and then, decreased to 1.56 by the time of discharge (02/19/2020). # CKD stage 3, etiology not clear. He has a proteinuria of 600 mg/g creatinine. Renal function relatively stable, with a recent increase in creatinine during episode of decompensated heart failure. Consider also, side effect of high dose furosemide. - Will increase furosemide to 40 mg BID (from 20 mg BID) given progressive weight gain and edema together with SOB. - Follow labs in 2 weeks. documented in this encounter Miscellaneous Notes * Communication Body - Letitia Vidal RN - 02/27/2020 12:55 PM CDT Shortness upon exertion. Fatigue more. Swelling to lower legs after lowering lasix beny 20 mg BID. documented in this encounter Plan of Treatment Not on file documented as of this encounter Procedures Procedure Name Priority Date/Time Associated Diagnosis Comments PROTEIN CREATININE RATIO URINE RANDOM PNL Routine 08/18/2020 5:05 PM CDT CKD (chronic kidney disease) stage 2, GFR 60-89 ml/min COMPLEMENT C3 C4 PANEL Routine 04/22/2020 11:[address] CLERK CKD (chronic kidney disease) stage 2, GFR 60-89 ml/min documented in this encounter Results * (ABNORMAL) PROTEIN CREATININE RATIO URINE RANDOM PNL (08/18/2020 5:05 PM CDT) Creatinine Urine 167.6 Not Estab. mg/dL [facility] INSURANCE BILL Protein Urine 72.2 Not Estab. mg/dL [facility] INSURANCE BILL Protein/Creatin ine Ratio 431(H) 0 - 200 mg/g creat [facility] INSURANCE BILL Comment:FASTING Urine URINE SPECIMEN OBTAINED BY CLEAN CATCH PROCEDURE / Unknown 08/18/2020 5:05 PM CDT 08/18/2020 Narrative Resulting Agency Comment Lab Testing performed at: [place] [address] [facility] ??[facility] [id number] Angela Sheikh MD LAB - URINE CHEMISTR Y ORDERABLES [facility] INSURANCE BILL [address] [place] [address] * COMPLEMENT C3 C4 PANEL (04/22/2020 11:[address] CLERK) Complement C3 141 82 - 167 mg/dL [facility] INSURANCE BILL Complement C4 30 12 - 38 mg/dL [facility] INSURANCE BILL Blood BLOOD SPECIMEN / Unknown 04/22/2020 11:[address] CLERK 04/22/2020 Narrative Resulting Agency Comment Lab Testing performed at: [facility] [address] ??[facility] [id number] Angela Sheikh MD LAB - CHEMISTRY HERNANDEZ SAL [facility] INSURANCE BILL [address] [place] [address] documented in this encounter Visit Diagnoses Diagnosis CKD (chronic kidney disease) stage 2, GFR 60-89 ml/min- Primary Chronic kidney disease, Stage II (mild) documented in this encounter Care Teams Sulfur Burner Relationship Specialty Start Date End Date Natasha Bates PA-C [address] [place] [phone] PCP - General 03/21/19 06/20/23 documented as of this encounter
--- OUTSIDE RECORDS SUMMARY | 2024-05-22 05:42 | XMS_ITS | Encounter Summary ---
Author Organization [facility] Health Address [address] [facility] [place] [address] Care Team Providers Care Drug And Alcohol Counselor Name Role Phone Natasha Bates PA-C Primary Care Provider + Reason for Visit * Reason Comments CHF Follow-up Encounter Details Date Type Department Care Team (Late st Contact Info) Description 08/07/2020 11:00 AM CDT Video Visit [facility] Cardiology [address] [facility] [address] [place] [address] Tylor Salazar MD [address] [facility] [address] [place] [address] Chronic heart failure with preserved ejection fraction (HCC) Social History Tobacco Use Types Packs/Day [...] Sign Reading Time Taken Comments Blood Pressure 112/74 08/07/2020 10:49 AM CDT Pulse - - Temperature - - Respiratory Rate - - Oxygen Saturation - - Inhaled Oxygen Concentration - - Weight 159.2 kg (351 lb) 08/07/2020 10:49 AM CDT Height 185.4 cm (6' 1 ) 08/07/2020 10:49 AM CDT Body Mass Index 46.31 08/07/2020 10:49 AM CDT documented in this [...] * Patient Instructions* Tylor Salazar MD - 08/07/2020 11:42 AM CDT Continue with current medications. We will see you back in 6 months. documented in this encounter Progress Notes * Muriel Moreno MD - 08/07/2020 11:37 AM CDT Patient seen and examined with the fellow. I agree with their findings, assessment, and plan. In addition I note: Patient Verification & Telemedicine Based Consent I [...] also normal coronaries but increased filling pressures. Just got a gastric sleeve. Previously had high K and aldactone stopped. Most recent labs have been normal at [facility]. Also recently palpitaotins and just sent in a 14 day monitor. Decreased his lasix 40 BID to 20 BID because his mouth was getting dry. No worsening edema. BP at home 110-120s/70-80s Review of Systems: History obtained from the [...] Cough (Patient not taking: Reported on 08/07/2020) 1 Inhaler 1 ??? allopurinol (ZYLOPRIM) 100 [...] mouth once daily 90 tablet 4 ??? patiromer (VELTASSA) 16.8 g packet Take [...] results for input(s): MG in the last 16054 hours. Phosphorus: Recent Labs Component Name 12/26/19 1507 11/06/19 0559 11/03/19 2337 PHOS 3.9 3.1 3.9 Coagulation: Recent Labs Component Name 12/14/19 0745 11/05/19 0436 11/03/19 2337 PT 13.1 13.6 13.4 INR 1.0 1.1 1.1 Cardiac profile: Recent Labs Component Name 02/01/20 2014 11/03/19 2337 06/11/19 0556 06/11/19 0215 06/11/19 0049 06/10/197 TROPONINI 0.013 0.018 0.017 - 0.024 0.020 [...] HTN; Patient has enlarged PA on CT Continue imdur, coreg Continue lasix at 20 BID Continue statin No aldactone due to prior hyper K Rest of plan per fellow note. Total of 25 minutes was spent reviewing history, current symptoms, medications, and plan. Muriel Moreno MD, MD Chucking And Sawing Machine Operator [facility] 08/07/2020 * Tylor Salazar MD - 08/07/2020 11:10 AM CDT [facility] History Of Present Illness: Howie Delaney is a 54 year old with CKD, HTN, morbid obesity, HLD who presents to [facility] care. SOB with 1-2 flights. Sleep study ordered. Remote history of cardiac catherization 10 years ago at [facility], per patient report. No chest pain, chest [...] BID to 80mg BID. Feels better today. 05/08/2021 Feeling back to baseline despite having some lower extremity edema after a long days of work standing. Denies chest discomfort, light- headedness/dizziness. BP controlled. Bariatric surgeryin May, at [facility]. Today's visit was conducted virtually due to [...] with 10 minutes spent in medical discussion 08/07/2020: S/p Gastric Sleeve at [facility] 08/04/2020 and lost 24lbs since. Did have hyperkalemia with spironolactone (d/c'ed now). 08/05/2020 K+4.6 and Cr 1.6 at [facility]. 112/74 at [facility]. Heart Monitor 2 weeks. PalpitationsLasix self decreased 20mg BID 1 month, legs w/o edema. No chest pain, chest discomfort, dypsnea, light headedness/dizziness, claudications, edema, orthopnea or PND. FHx: -HTN SHx: -Tobacco: Denies -EtoH: Occasional [...] Cough (Patient not taking: Reported on 08/07/2020) 1 Inhaler 1 ??? allopurinol (ZYLOPRIM) 100 [...] mouth once daily 90 tablet 4 ??? patiromer (VELTASSA) 16.8 g packet Take [...] visit. Allergies: No Known Allergies OBJECTIVE: Vitals: 08/07/20 1049 BP: 112/74 Weight: (!) 351 lb (159.2 kg) Height: 6' 1 (1.854 m) Body mass index is 46.31 kg/m??. PHYSICAL EXAM: Not obtained as this [...] STRESS: 2018 Lexiscan normal, per patient report ([facility]) 06/11/2019 Lexiscan Findings: The image quality [...] of 71%. CTA CORONARY: n/a CATHERIZATIONS: 11/2019 C/C 1) Elevated filling pressure with moderate pulmonary venous hypertension (RA 15 mmHg, PAD 30 mmHg, LVEDP 24 mmHg). 2) Normal coronaries Assessment/Plan: HFpEF -TTE with diastolic dysfunction -BP well controlled 110-120/70s with Coreg 25mg BID and Imdur 45mg qday -Lasix 20mg BID and euvolemic -Imdur 45mg qday for atypical chest pain (can consider first discontinuing if BP cannot tolerate) -No spironolactone due to hyperkalemia. Palpitations -14d Monitor pending HLD -Atorvastatin 40mg qday RTC 6 months. Tylor Salazar MD Cardiovascular Fellow [facility] P: [phone] documented in this encounter Plan of Treatment Not on file documented as of this encounter Visit Diagnoses Diagnosis Chronic heart failure with preserved ejection fraction (HCC)- Primary documented in this encounter Care Teams Drug And Alcohol Counselor Relationship Specialty Start Date End Date Natasha Bates PA-C [address] [place] [phone] PCP - General 03/21/19 06/20/23 documented as of this encounter
--- OUTSIDE RECORDS SUMMARY | 2024-05-22 05:42 | XMS_ITS | Encounter Summary ---
Author Organization [facility] Health Address [address] [place] [address] Care Team Providers Care Pants Cutter Name Role Phone Natasha Bates PA-C Primary Care Provider + Encounter Details Date Type Department Care Team (Late st Contact Info) Description 07/04/2020 11:20 AM BODY AND FENDER MECHANIC Office Visit [facility] [address] [place] [address] Sunshine Mayo, DO [address] [address] MIRELLA (obstructive sleep apnea) (Primary Dx); Insomnia, unspecified type; Pulmonary hypertension (HCC); Acute on chronic diastolic heart failure (HCC); Morbid obesity (HCC); Essential hypertension; CPAP use counseling Social History Tobacco Use Types Packs/Day Years [...] Progress Notes * Sunshine Mayo DO - 07/04/2020 11:56 AM CST [facility] Sleep Disorders [facility], First Floor [address] [place] [address] Telephone : [phone] or Medical Records AUTOMATIC POSITIVE AIRWAY PRESSURE (APAP) PRESCRIPTION FORM Patient Name: Howie Delaney Date of : 1965 Date of Visit: 07/04/2020 Age: [age] year old Sex: male Diagnosis: [x] Obstructive sleep apnea [] Other: CPAP Settings: Fixed settin cmH2O Interface: Brand: [] nasal pillows [] nasal mask [] full-face mask [x] fit for mask Size: [] extra-small [] small [] medium [] large [x] Humidifier: [x] heated [] non-heated [x] Heated tubing [] Chin strap [x] Other necessary positive airway pressure therapy supplies (e.g., filters, etc.) [] Oxygen flow rate = L/min side flow via CPAP [] Overnight oximetry on above settings Sunshine Mayo DO Family and Community Medicine Sleep Medicine Specialist [facility] NPI #[id number] This note was electronically signed on 07/04/2020. AND FENDER MECHANIC * Sunshine Mayo DO - 07/04/2020 11:29 AM CST [facility] Sleep Disorders [facility], First Floor [address] [place] [address] Telephone : [phone] Medical Records Patient Name: Howie Delaney Date of :1965 Date of Visit: 07/04/2020 Age: [age] year old Sex: male CPAP ADHERENCE CLINIC VISIT NOTE The patient is a 54 year old male who follows-up for obstructive sleep apnea. S> Since the patient's last visit in 03/18, the patient has had no new health problems. Insomnia continues; difficulty falling back asleep after waking up, is up for at least 30 min before being able to fall asleep again. He estimates he sleeps 5-6 hours/ night. He has also been busy with work and working long hours lately. Tried trazadone for a few weeks but did not like it, caused him to feel extra groggy the next day. Tried other medication for anxiety with PCP including ave, did not like it either. It didn't really help him sleep, it just made him feel drowsy. He is being evaluated for gastric bypass and plans to have surgery in the next month or two. He is following with pulmonology and is instructed to use O2 with exertion but he does not do this often. Millis Sleepiness Scale Score = 20 Sleep Schedule: Bedtime: sometimes late, 10:30- 11 PM: usually ok to fall asleep, but sometimes it takes a long time. sometimes reads quietly, wakes up 2- 3 times due to using the bathroom, sometimes hard to fall back asleep. Usually up by 7-8 AM. Rarely naps. Interface: [] nasal pillows [] Airfit P10 [] Morris FX [] Dreamwear [] nasal mask [] Airfit N20 [x] full face mask [] Combination nasal pillows oral mask Other: Patient's Subjective Report of PAP Compliance : [x] Nightly, throughout the night [] Nightly, part of the night [x] > 4 hr/night [] < 4 hr/night [] Not nightly [] 4-6 nights/week [] 1-3 nights/week [] Not at all Humidifier: [] Yes [] No Heat setting: Distilled H2O: [x] Yes [] No, specify: Problems with PAP therapy: [x] none [] excessive airflow pressure [] air leak Medications: Current Outpatient Medications on File Prior to [...] mouth once daily 90 tablet 4 ??? spironolactone (ALDACTONE) 25 MG tablet Take 0.5 (one-half) tablet by mouth once daily 90 tablet 4 No current facility-administered medications on file prior to visit. No Known Allergies Social History Socioeconomic History ??? Marital status: [...] file Gets together: Not on file Attends pentecostal service: Not on file Active member of [...] Social History Narrative ??? Not on file Exercise: [] Yes [x] No : stands frequently at work Type: [] walking [] jogging/running [] cycling [] weights/machines [] swimming [] other, describe: Immunization History Administered Date(s) Administered ??? FLU VACCINE QUAD IIV4 SPLIT PF IM 05/11/2019 ??? PNEUMOCOCCAL PPSV23 03/31/2020 Physical Examination: There were no vitals taken for this visit. General: The patient is coherent and not in cardiopulmonary distress. [place] and anicteric conjunctivae. Normal tympanic membranes. No nasal congestion or drainage. No tonsillopharyngeal congestion. Mallampati score = Neck circumference = inches No cervical lymphadenopathy. No JVD. No thyromegaly. Vesicular breath sounds. No crackles. No rhonchi. No wheezing. Regular heart rhythm. No S3 or S4. No murmurs. No cyanosis. No clubbing. No edema. CPAP Compliance Information (06/04-07/03/20): Fixed settin cmH2O % days with device use =87% Average use = 5 hours and 33 min Time in large leak 95th percentile: 17.5 min Average AHI = 2.4/hr Overnight oximetry report reviewed on 3L w/CPAP (01/23/2020): >90% for 95.7% of the night <90% for 18 min Low 77% Mean 93.5% ASSESSMENT: 1.??Severe obstructive sleep apnea on PSG 10/10/19 in [place]?? 2. CPAP at the fixed pressure of 12 cmH2O is effective in eliminating obstructive events. 3. CPAP Adherence: [x] Good (> 70% of the nights and average use > 4 hours/night) [] Poor (< 70% of the nights and/or average use < 4 hours/night 4. Pulmonary hypertension (idopathic vs long standing MIRELLA)??. 5.??Recent cardiac cath no blockage but showed??PAD 30 mmHg 6 Shortness of breath, following with pulmonology 7. Obesity BMI 44. - plan for bariatric surgery soon. 8. History of chronic respiratory failure with suspected obesity hypoventilation syndrome, 3L oxygen at night with CPAP.?? 9. Sleep onset and sleep maintenance insomnia PLAN: 1. Continue Continue CPAP fixed 10 cmH2O with oxygen 3L 2. OK to try ambien for sleep onset / maitenence insomnia. We also discussed good sleep hygiene techniques. 3. Gastric bypass coming up soon: encouraged to bring CPAP to the hospital overnight, continue using nightly after surgery. 4. Follow up in 3 months after surgery; if significant wt loss may repeat split study. He does not have an APAP machine; fixed CPAP only, settings may need to be adjusted. 5. Needs new supplies- has never changed filters in the machine, and is due for new mask. Rx sent to supply [email or web address] ([employer]) Sunshine Mayo DO Family and Community Medicine Sleep Medicine Specialist [facility] AND FENDER MECHANIC documented in this encounter Plan of Treatment Not on file documented as of this encounter Visit Diagnoses Diagnosis MIRELLA (obstructive sleep apnea)- Primary Obstructive sleep apnea (adult) (pediatric) Insomnia, unspecified type Pulmonary hypertension (HCC) Other chronic pulmonary heart diseases Acute on chronic diastolic heart failure (HCC) Acute on chronic diastolic heart failure Morbid obesity (HCC) Morbid obesity Essential hypertension CPAP use counseling documented in this encounter Care Teams Pants Cutter Relationship Specialty Start Date End Date Natasha Bates PA-C [address] [place] [phone] PCP - General 03/21/19 06/20/23 documented as of this encounter
--- OUTSIDE RECORDS SUMMARY | 2024-05-22 05:42 | XMS_ITS | Encounter Summary ---
Author Organization [facility] Health Address [address] [place] [address] Care Team Providers Care Donor Recruiter Name Role Phone Natasha Bates PA-C Primary Care Provider + Encounter Details Date Type Department Care Team (Latest Contact Info) Description 12/31/2019 Travel Social History Tobacco Use Types Packs/Day [...] on filedocumented in this encounter Care Teams Donor Recruiter Relationship Specialty Start Date End Date Natasha Bates PA-C [facility] [place] [address] PCP - General 03/21/19 06/20/23 documented as of this encounter
--- OUTSIDE RECORDS SUMMARY | 2024-05-22 05:42 | XMS_ITS | Encounter Summary ---
Author Organization [facility] Health Address [address] [place] [address] Care Team Providers Care Supervisor Opening And Picking Name Role Phone Natasha Bates PA-C Primary Care Provider + Encounter Details Date Type Department Care Team (Latest Contact Info) Description 12/28/2019 Travel Social History Tobacco Use Types Packs/Day [...] have Coronavirus / COVID-19? Unable to assess 12/28/2019 8:56 AM CDT documented as of this encounter [...] on filedocumented in this encounter Care Teams Supervisor Opening And Picking Relationship Specialty Start Date End Date Natasha Bates PA-C [facility] [place] [address] PCP - General 03/21/19 06/20/23 documented as of this encounter
--- OUTSIDE RECORDS SUMMARY | 2024-05-22 05:42 | XMS_ITS | Encounter Summary ---
Author Organization [facility] Health Address [address] [place] [address] Care Team Providers Care Machine Inspector Name Role Phone Natasha Bates PA-C Primary Care Provider + Encounter Details Date Type Department Care Team (Late st Contact Info) Description 11/09/2019 10:30 AM CDT Video Visit [facility] [address] [facility] [address] [place] [address] Berenice Plaza, PROFESSOR OF OCEANOGRAPHY-ECOLOGY PROFESSOR [address] [facility] [address] [place] [address] Hyperkalemia ; LVH (left ventricular hypertrophy) due to hypertensive disease, with heart failure (HCC); Essential hypertension; Pedal edema; Orthostasis; MIRELLA (obstructive sleep apnea); Pulmonary hypertension (HCC) Social History Tobacco Use Types Packs/Day [...] * Patient Instructions* Berenice Plaza APRN-CNP - 11/09/2019 4:48 PM CDT Follow up [address] Salazar in 6 months. Resume Coreg 25mg BID, Norvaac 5 mg and BMP in on week Lasix BID. documented in this encounter Progress Notes * Berenice Plaza APRN-CNP - 11/09/2019 10:30 AM CDT Telephone Note Today's visit was conducted virtually due to COVID-19 countermeasures. The patient has given verbalconsent to have today's visit conducted by this same means with treatment provided remotely. The patient verbally consents to the billing and collection practices of [facility] and [facility]. Assessment & Plan Howie is a 53 year old male who has completed a telephone encounter regarding: Encounter duration: 30 minutes Patient location: Home This encounter was performed using: Telephone. Reason for not using video for visit: pt preference The plan was reviewed with the patient and the patient confirmed understanding of the plan and all follow-up steps. All aspects of patient's medical history were reviewed and updated as documented in Epic Assessment and Plan: Problem List Items Addressed This Visit Cardiovascular Essential hypertension Continue Coreg, Norvasc and Lasix. LVH (left ventricular hypertrophy) due to hypertensive disease, with heart failure Pt resumed Coreg and Norvasc after hospital discharge. Continue Coreg 25g BID, Norvasc 5mg daily and Lasix 20mg BID BMP next week. Lisinopril stopped hyperklemia. Pedal edema Support stockings and Lasix 20mg BID. Pulmonary hypertension CT mentioned, however ECHO in May said no PHNT, pt has follow up with OSH Pulmonary team. Continue Lasix, CPAP and Oxygen therapy. Orthostasis Resolved in the setting of dehydration and ETOH and antihypertensives. No further work up at this time. Respiratory MIRELLA (obstructive sleep apnea) CPAP. Other Visit Diagnoses Hyperkalemia - Primary Relevant Orders BASIC METABOLIC PANEL (CALCIUM TOTAL) Follow up with Dr. Salazar in 6 months. Subjective Chief Complaint: Hospital Follow Up HPI: Howie Delaney is a 53 year old male with PMH significant for CKD, HTN, OBestiy, HLD, who was last seen in clinic by Dr. Stratton/Tylor in April 2019 to establish care for upcoming bariatric surgery. He was seen by Dr. Moreno in August and was doing well, his BP was elevated and his medications were adjusted. He was recently discharged from [facility] on 11/06, for presyncopal episodes that was thought secondary to dehydration and ETOH consumption. His coreg, Norvasc, valtessa were stopped and his lasix was changed to 20mg daily. He was contacted today for follow up, since he has been home he has resumed his Coreg at 25mg BID, Norvasc 5mg and Lasix 20mg BID and he feels much better he continues to have some edema. It is over all improved. His BP is 120/70 at home back on his BP medications and he denies any syncopal or presyncopal episodes and he denies palpations. . ROS is negative except for stated in the HPI. Past Medical History: Diagnosis Date ??? CKD (chronic kidney disease) ??? HFrEF (heart failure with reduced ejection fraction) ??? HLD (hyperlipidemia) ??? HTN (hypertension) ??? MIRELLA (obstructive sleep apnea) 05/13/2019 Objective PHYSICAL EXAM: Unable to complete, telemedicine visit. Reviewed and + for ankle edema, abdominal swelling. Current Outpatient Medications Medication Sig Dispense Refill ??? acetaminophen (TYLENOL) 325 MG tablet Take 2 tablets by mouth every 6 hours as needed Maximum allowable Acetaminophen amount = 4 Grams (4000 mg) / 24 hours. ??? allopurinol (ZYLOPRIM) 100 MG tablet Take 100 mg by mouth 2 times daily ??? atorvastatin (LIPITOR) 20 MG tablet Take [...] Take 300 mg by mouth at bedtime No current facility-administered medications for this visit. DATA: ECHO: 05/2019 The right atrium is mildly enlarged. [...] ventricle filling pressures. No significant valvular abnormalities. CATH/STRESS TESTING: Nuclear Study: Impression: 1. No evidence of myocardial infarction or stress-induced ischemia. 2. Normal left ventricular wall motion and thickening. 3. The calculated left ventricular ejection fraction of 71%. NATALIE Aj documented in this encounter Plan of Treatment Not on file documented as of this encounter Visit Diagnoses Diagnosis Hyperkalemia- Primary Hyperpotassemia LVH (left ventricular hypertrophy) due to hypertensive disease, with heart failure (HCC) Essential hypertension Pedal edema Edema Orthostasis Orthostatic hypotension MIRELLA (obstructive sleep apnea) Obstructive sleep apnea (adult) (pediatric) Pulmonary hypertension (HCC) Other chronic pulmonary heart diseases * Assessment & Plan Note - Berenice Plaza APRN-CNP - 11/09/2019 11:32 AM CDT Associated Problem(s): Pulmonary hypertension (HCC) CT mentioned, however ECHO in May said no PHNT, pt has follow up with OSH Pulmonary team. Continue Lasix, CPAP and Oxygen therapy. * Assessment & Plan Note - Berenice Plaza APRN-CNP - 11/09/2019 11:31 AM CDT Associated Problem(s): MIRELLA (obstructive sleep apnea) CPAP. * Assessment & Plan Note - Berenice Plaza APRN-CNP - 11/09/2019 11:30 AM CDT Associated Problem(s): Orthostasis Resolved in the setting of dehydration and ETOH and antihypertensives. No further work up at this time. * Assessment & Plan Note - Berenice Plaza APRN-CNP - 11/09/2019 11:30 AM CDT Associated Problem(s): Pedal edema Support stockings and Lasix 20mg BID. * Assessment & Plan Note - Berenice Plaza APRN-CNP - 11/09/2019 11:30 AM CDT Associated Problem(s): Essential hypertension Continue Coreg, Norvasc and Lasix. * Assessment & Plan Note - eBrenice Plaza APRN-CNP - 11/09/2019 11:28 AM CDT Associated Problem(s): LVH (left ventricular hypertrophy) due to hypertensive disease, with heart failure (HCC) Pt resumed Coreg and Norvasc after hospital discharge. Continue Coreg 25g BID, Norvasc 5mg daily and Lasix 20mg BID BMP next week. Lisinopril stopped hyperklemia. documented in this encounter Care Teams Machine Inspector Relationship Specialty Start Date End Date Natasha Bates PA-C [address] [place] [phone] PCP - General 03/21/19 06/20/23 documented as of this encounter
--- OUTSIDE RECORDS SUMMARY | 2024-05-22 05:42 | XMS_ITS | Encounter Summary ---
Author Organization [facility] Address [address] [place] [address] Care Team Providers Care Crown Presser Name Role Phone Natasha Bates PA-C Primary Care Provider + Reason for Referral * Radiology Services (Routine) - Closed Specialty Diagnoses / Procedures Referred By Contac t Referred To Contact Cardiac Cath Diagnoses Angina pectoris (HCC) Procedures CCL CARDIAC CATH RIGHT AND LEFT Muriel Moreno MD [address] [address] [facility] Cardiac Annealing Operator [address] [place] [address] Referral ID Status Reason Start Date Expiration Date Visits Re quested Visits Authorized [id number] Closed 12/14/2019 12/05/2020 1 1 * Radiology Services (Routine) - Closed Specialty Diagnoses / Procedures Referred By Contjhonny t Referred To Contact Diagnoses Angina pectoris (HCC) Procedures CCL CATH RIGHT HEART Muriel Moreno MD [address] [address] Referral ID Status Reason Start Date Expiration Date Visits Re quested Visits Authorized [id number] Closed 12/06/2019 12/05/2020 1 1 * Radiology Services (Routine) - Closed Specialty Diagnoses / Procedures Referred By Malena t Referred To Contact Diagnoses Angina pectoris (HCC) Procedures CCL CARDIAC CATH LEFT HEART ONLY Muriel Moreno MD [address] [address] Referral ID Status Reason Start Date Expiration Date Visits Re quested Visits Authorized [id number] Closed 12/06/2019 12/05/2020 1 1 Reason for Visit * Reason Comments CHF Follow-up Encounter Details Date Type Department Care Team (Late st Contact Info) Description 12/06/2019 11:00 AM CDT Office Visit [facility] [address] [address] Muriel Moreno MD [address] [address] Angina pectoris (HCC) (Primary Dx) Social History Tobacco Use [...] Sign Reading Time Taken Comments Blood Pressure 150/90 12/06/2019 11:01 AM CDT Pulse 67 12/06/2019 11:01 AM CDT Temperature - - Respiratory Rate - - Oxygen Saturation 93% 12/06/2019 11:01 AM CDT Inhaled Oxygen Concentration - - Weight 169.2 kg (373 lb) 12/06/2019 11:01 AM CDT Height 185.4 cm (6' 1 ) 12/06/2019 11:01 AM CDT Body Mass Index 49.21 12/06/2019 11:01 AM CDT documented in this encounter Functional [...] Progress Notes * Muriel Moreno MD - 12/06/2019 9:04 AM CDT HPI: Mr. Delaney presents for evaluation of chest pain. Since 05/2019 - has had ischemic eval for CP with breana scan stress - normal. Today reports exertional chest pressure when walking and also lasting at rest. Used to be on isosorbide - came off this n BP now controlled - in past CP attributed to elevated BP Now takes coreg25 BID Amlodipine 5 mg once a day Atovastatin at night Lasix 20 BID Taken off isosorbide likely in the hospital Review of Systems: History obtained from the [...] 140/150/90s Data: CBC: Recent Labs Component Name 11/07/19 0413 11/06/19 0559 11/05/19 0436 WBC 8.8 10.3 10.8* RBC 4.26* 4.18* 4.12* HGB 12.1* 12.0* 11.9* HCT 39.0 38.7* 39.0 BMP: Recent Labs Component Name 11/07/19 0413 11/06/19 0559 11/05/19 0436 NA 141 144 144 CL 106 107 107 CO2 30* 30* 30* BUN 17 18 22 CREATININE 1.4* 1.3* 1.3* CALCIUM 8.3* 8.5 8.5 Magnesium: No results for input(s): MG in the last 77475 hours. Phosphorus: Recent Labs Component Name 11/06/19 0559 11/03/19 2337 10/30/19 1350 PHOS 3.1 3.9 3.5 Coagulation: Recent Labs Component Name 11/05/19 0436 11/03/19 2337 PT 13.6 13.4 INR 1.1 1.1 Cardiac profile: Recent Labs Component Name 11/03/19 2337 06/11/19 0556 06/11/19 0215 06/11/19 0049 06/10/19 2257 TROPONINI 0.018 0.017 - 0.024 0.020 BNP 328* - 225* - - Cholesterol: Recent Labs Component Name 07/24/19 1304 06/12/19 0315 CHOL 110 129 Triglycerides: Recent Labs Component Name 07/24/19 1304 06/12/19 0315 TRIG 63 72 HDL: Recent Labs Component Name 07/24/19 1304 06/12/19 0315 HDL 37* 39* LDL: Recent Labs Component Name 07/24/19 1304 06/12/19 0315 LDLCALC 60 76 HgbA1c: Recent Labs Component Name 07/05/19 1232 HGBA1C 5.7* Most recent echo: 05/2019 The right atrium [...] HTN; Patient has enlarged PA on CT Recommend ER evaluation for typical chest pain. EKG in the office is normal. Patient reluctant to go to the ER. Restart isosorbide and also given SL Nitro If CP resolves and decides against ER eval - will plan for a [facility] for the typical anginal symptoms Also has an enlarged PA on prior chest CT and concern for PHTN - this was not seen on echo. Patienthas Fhx (mother) with primary pulmonary HTN - plan to follow up in 6 months Muriel Moreno MD, MD Distributor [facility] 12/06/2019 documented in this encounter Plan of Treatment Scheduled Orders Name Type Priority Associated Diagnoses Orde r Schedule CCL CARDIAC CATH LEFT HEART ONLY Cardiac Annealing Operator Radiant Routine Angina pectoris (HCC) Expected: 12/06/2019, Expires: 12/05/2020 CCL CATH RIGHT HEART Cardiac Annealing Operator Radiant Routine Angina pectoris (HCC) Expected: 12/06/2019, Expires: 12/05/2020 CCL CARDIAC CATH RIGHT AND LEFT Cardiac Annealing Operator Radiant Routine Angina pectoris (HCC) Expected: 12/06/2019, Expires: 12/05/2020 documented as of this encounter Visit Diagnoses Diagnosis Angina pectoris (HCC)- Primary documented in this encounter Care Teams Crown Presser Relationship Specialty Start Date End Date Natasha Bates PA-C [address] [place] [phone] PCP - General 03/21/19 06/20/23 documented as of this encounter
--- OUTSIDE RECORDS SUMMARY | 2024-05-22 05:42 | XMS_ITS | Encounter Summary ---
Author Organization [facility] Health Address [address] [place] [address] Care Team Providers Care Concrete Smoother Name Role Phone Natasha Bates PA-C Primary Care Provider + Reason for Visit * Reason Onset Date Comments Transitions Of Care 2019 Transition C are Coordinator post discharge scheduling outreach Encounter Details Date Type Department Care Team (Late st Contact Info) Description 2019 Telephone [facility] [address] [place] [phone] Calos Tinoco, [facility] Transitions Of Care ([employer] Assistant Football Coach post discharge scheduling outreach ) Social History Tobacco Use Types Packs/Day Years [...] encounter Miscellaneous Notes * Telephone Encounter - Calos Tinoco, TELEPRINTER INSTALLER - 2019 2:47 PM CDT ?? 11/12/19 1432 Follow up appointment/arrangements made Physician Follow Up Appointment(s) Made No Appointment(s) made with the following physician providers PCP Follow up date with PCP 11/13/19 Follow up time with PCP 0815 Reason why no appointment was made with physician Appointment already made ?? [employer] Assistant Football Coach (TCC) care management screening/scheduling request: TCC providing assistance to and coverage for discharge senior scheduler (Edd Bennett) and received request from Dr. Cancino re: Patient admitted for Acute on chronic diastolic heart failure and needs follow-up with his PCP (Natasha Bates PA-C) within 1-2 weeks of discharge. ?? TCC confirmed Patient already had an appointment scheduled prior to discharge with [facility] Cardiology within 2 days on 11/09/2019 at 10:30 AM with CARBURETOR REBUILDER Berenice Plaza via Video. ?? TCC completed outreach call today (2019) with Patient to inquire about scheduling PCP appointment. Patient informed this service writer that he is already scheduled to see his PCP (Natasha Bates PA-C) tomorrow (11/13/2019) at 8:15 AM. Patient inquired how he could obtain some outpatient test results from Cardiology with [facility]. TCC encouraged Patient to contact clinic directly to inquire whether records can be faxed to his requesting Supervisor [employer] and/or to have his Supervisor Kos[employer] Dietary Service or PCP request the records via [facility] Everywhere. Patient verbalized understanding and thanked TCC for the call. ?? No further scheduling needs indicated. ?? Discharge Date: 11/07/2019 Discharge Disposition: Home Or Self Care Discharge Patient Class/Status: Inpatient ?? Patient's current BNA score is: 6 ?? Screenings: Social Support Domain Score: not applicable (BNA < 10) Complex Needs Assessment Score: not applicable (BNA < 10) Care Management: BNA/ELECTRIC POWER LINE EXAMINER < 10. 30 day telephonic care management post discharge from hospital transitional care team is not indicated. ?? No further f/u needs are indicated for this TCC. Case Closed. ?? Future Appointments ?? Thursday November 21, 2019 2:00 PM ?? Appointment with Gerardo Zavala at [facility] 308 ([phone]) [address], [address] [facility] [address] ? February 2:40 PM ?? Appointment with Muriel Moreno at [facility] Cardiology ([phone]) [address] [facility] [address] ? April 11:30 AM ?? Appointment with Tylor Salazar at [facility] Cardiology ([phone]) [address] [facility] [address] ? As directed ?? Cardiac Services: MONITOR - HOLTER ? Contact Information for Follow-Up Providers ? Natasha Bates PA-C Specialty: Physician Development Administrator Relationship: PCP - General [facility] Henrietta (PROJECTION ENGINEER) [address] [place] [phone] ?? Follow-up on 11/13/2019 at 8:15 AM with your PCP. ?? Our records show your Primary Care Provider (PCP) is Natasha Bates PA-C. ?? Follow Up Instructions: Follow-up in 1-2 weeks ? Call Duration: 3 minutes SHIRIN Kuo, TRUCK BRACER [employer] Assistant Football Coach Office: [phone] 2019 documented in this encounter Plan of Treatment Not on file documented as of this encounter Visit Diagnoses Not on filedocumented in this encounter Care Teams Concrete Smoother Relationship Specialty Start Date End Date Natasha Bates PA-C [address] [place] [phone] PCP - General 03/21/19 06/20/23 documented as of this encounter
--- OUTSIDE RECORDS SUMMARY | 2024-05-22 05:42 | XMS_ITS | Encounter Summary ---
Author Organization [facility] Health Address [address] [facility] [place] [address] Care Team Providers Care Commodity Manager Name Role Phone Natasha Bates PA-C Primary Care Provider + Reason for Visit * Reason Comments Obstructive Sleep Apnea Cpap Follow-up Encounter Details Date Type Department Care Team (Late st Contact Info) Description 03/18/2020 3:20 PM CDT Office Visit [facility] [address] [place] [address] Sunshine Mayo, DO [address] [address] MIRELLA (obstructive sleep apnea) (Primary Dx); Sleep related hypoxia; Insomnia, unspecified type; Anxiety; Wheezing Social History Tobacco Use Types Packs/Day Years [...] - Inhaled Oxygen Concentration - - Weight 172.8 kg (381 lb) 03/18/2020 3:30 PM CDT Height 185.4 cm (6' 1 ) 03/18/2020 3:30 PM CDT Body Mass Index 50.27 03/18/2020 3:30 PM CDT documented in this encounter Functional [...] of this encounter Progress Notes * Sunshine Mayo, DO - 03/18/2020 3:35 PM CDT [facility], First Floor [address] [facility] [place] [address] Telephone : [phone] Medical Records Patient Name: Howie Delaney Date of :1965 Date of Visit: 03/18/2020 Age: [age] year old Sex: male SLEEP DISORDERS CLINIC SUBSEQUENT VISIT NOTE The patient is a 54 year old male who follows-up for obstructive sleep apnea. S> Since the patient's last visit in 12/2019, Mr. Delaney had to be in the hospital for fluid build up realted to ? CHF exacerbation. Lately he feels he has been wheezing more, wondering if it is related to fluid build up. He has PFTS coming up soon. He has been using the CPAP. He has an electric bed and has to keep the head of the bed elevated. Hefinds sometimes he wakes up without the machine on. Not every day but at least once a week. He feels his lungs are still tired . He is using a full face mask goes over the nose, mouth and forehead. Used 2-3 masks and has tried a few nasal masks but didn't work as well. If lying flat he feels he would not be able to breathe at all. He has been using 3L O2 bled throughCPAP machine at night and was supposed to use it during the day as needed but hasnt' really used it. Needs to rest when walking any long distance really. Going to work on diet and exercise more, possibly gastric bypass/band coming up beginning of next year. He has been keeping track of his oxygen levels with pulse ox. He notices that with exertion his oxygen levels are around 89, he believes that with the O2 it is around 95 while sleeping. [place] Sleepiness Scale Score = 19 Sleep Schedule: Bedtime: sometimes late, 10:30- 11 PM: usually ok to fall asleep, but sometimes it takes a long time. sometimes reads quietly, wakes up 2- 3 times due to using the bathroom, sometimes hard to fall back asleep. Usually up by 7-8 AM. Rarely naps. Medications: Current Outpatient Medications on File Prior [...] mg by mouth 2 times daily ) 360 tablet 3 ??? gabapentin (NEURONTIN) 300 [...] file Gets together: Not on file Attends sikh service: Not on file Active member of [...] History Narrative ??? Not on file Exercise: No Immunization History Administered Date(s) Administered ??? FLU VACCINE QUAD IIV4 SPLIT PF IM 05/11/2019 Physical Examination: Ht 6' 1 (1.854 m) Wt 381 lb (172.8 kg) BMI 50.27 kg/m2 General: The patient is coherent and not in cardiopulmonary distress. [place] and anicteric conjunctivae. Normal tympanic membranes. No nasal congestion or drainage. No tonsillopharyngeal congestion. Mallampati score = 4 No cervical lymphadenopathy. No JVD. No thyromegaly. Vesicular breath sounds. No crackles. No rhonchi. No wheezing. Regular heart rhythm. No S3 or S4. No murmurs. No cyanosis. No clubbing. No edema. 12/18-03/17 Usage : 86/90: 96% Usage > 4 hours: 71% Average usage (days used): 5 hours 30 min Set pressure: 10 cmH2O Leak: 7.7 l/min AHI: 2.9 per hour Emir wilkes: 1 min (1%). ASSESSMENT: 1. Severe obstructive sleep apnea on PSG 10/10/19 in [place] 2. CPAP at the fixed pressure of 12 cmH2O is effective in eliminating obstructive events. 3. Excellent CPAP compliance. 4. Pulmonary hypertension (idopathic vs long standing MIRELLA) . 5. Recent cardiac cath no blockage but showed PAD 30 mmHg 6 Shortness of breath, following with pulmonology 7. Obesity BMI 44. - plan for bariatric surgery soon. 8. History of chronic respiratory failure with suspected obesity hypoventilation syndrome, 3L oxygen at night with CPAP. 9. Sleep onset and sleep maintenance insomnia PLAN: Diagnostic: 1. Still needs overnight oximetery- we will plan to get this done soon. Order sent again to DME. Therapeutic: 1. Continue efforts at weight loss via healthy eating and exercise. Exercise (e.g., walking) up to 30-60 minutes 3-5 days a week. Eat more fruits, vegetables, beans, nuts, seeds, whole grains, etc. Avoid or minimize meat, dairy, eggs, fast food, processed foods, or refined carbohydrates. Avoid or mi nimize salt intake. 2. Following with pulmonology re: pulm HTN 3. For sleep onset insomnia/anxiety: ok to add trazadone 50 mg tab at bedtime. 4. He has continued dyspnea on exertion and has PFT coming up this week. He would like to try an inhaler in the meantime to see if this gives him any relief. Albuterol sent to pharmacy. Follow-up in 4-6 weeks. Sunshine Mayo DO [facility] Sleep Medicine Specialist [facility] This note was electronically signed on 03/18/2020. documented in this encounter Plan of Treatment Not on file documented as of this encounter Visit Diagnoses Diagnosis MIRELLA (obstructive sleep apnea)- Primary Obstructive sleep apnea (adult) (pediatric) Sleep related hypoxia Idiopathic sleep related nonobstructive alveolar hypoventilation Insomnia, unspecified type Anxiety Anxiety state, unspecified Wheezing documented in this encounter Care Teams Commodity Manager Relationship Specialty Start Date End Date Natasha Bates PA-C [address] [place] [phone] PCP - General 03/21/19 06/20/23 documented as of this encounter
--- OUTSIDE RECORDS SUMMARY | 2024-05-22 05:42 | XMS_ITS | Encounter Summary ---
Author Organization [facility] Health Address [address] [place] [address] Care Team Providers Care Fiberglass Luggage Molder Name Role Phone Natasha Bates PA-C Primary Care Provider + Reason for Visit * Reason Comments Follow-up Encounter Details Date Type Department Care Team (Late st Contact Info) Description 11/07/2019 Telephone [facility] [phone], [address]ER[address] [place], [place] [phone] Henrietta Walker, RN Follow-up Social History Tobacco Use Types [...] as of this encounter Progress Notes * Henrietta Walker RN - 11/07/2019 10:30 AM CDT Pt calls triage line, states he is currently admitted at [facility] with tentative discharge home today. Pt will be unable to keep neph appt today, but states he had his neph labs drawn at [facility] approx 1 week ago. Pt can be reached at mobile # on file if any new orders from Dr. Camacho Oneal based on results. Transferred call to scheduling line for new follow up appt. documented in this encounter Plan of Treatment Not on file documented as of this encounter Visit Diagnoses Not on filedocumented in this encounter Care Teams Fiberglass Luggage Molder Relationship Specialty Start Date End Date Natasha Bates PA-C [address] [place] [phone] PCP - General 03/21/19 06/20/23 documented as of this encounter
--- OUTSIDE RECORDS SUMMARY | 2024-05-22 05:42 | XMS_ITS | Encounter Summary ---
Author Organization [facility] Health Address [address] [facility] [place] [address] Care Team Providers Care Welder Production Line Gas Name Role Phone Natasha Bates PA-C Primary Care Provider + Encounter Details Date Type Department Care Team (Latest Contact Info) Description 12/26/2019 2:54 PM CDT - 12/26/2019 11:59 PM CDT Hospital Encounter [facility] DRAW [facility]ATION [address] [place] [address] Gerardo Zavala MD [address] [facility] [address] [facility] [place] [phone] Discharge Disposition: Home or Self Care Social [...] Name Priority Date/Time Associated Diagnosis Comments URINALYSIS REFLEX TO MICROSCOPIC NO CULTURE Routine 12/26/2019 3:07 PM CDT Chronic kidney disease (CKD), stage III (moderate) (HCC) ERIC (acute kidney injury) (HCC) PROTEIN URINE RANDOM QUANTITATIVE Routine 12/26/2019 3:07 PM CDT Chronic kidney disease (CKD), stage III (moderate) (HCC) ERIC (acute kidney injury) (HCC) RENAL FUNCTION PANEL Routine 12/26/2019 3:07 PM CDT Chronic kidney disease (CKD), stage III (moderate) (HCC) ERIC (acute kidney injury) (HCC) CREATININE URINE RANDOM Routine 12/26/2019 3:07 PM CDT Chronic kidney disease (CKD), stage III (moderate) (HCC) ERIC (acute kidney injury) (HCC) documented in this encounter Results * CREATININE URINE RANDOM (12/26/2019 3:07 PM CDT) Creatinine Urine 85 Not Established mg/dL 12/26/2019 4:13 PM CDT [facility] Comment:Result obtained by césar hardy. Urine URINE SPECIMEN OBTAINED BY CLEAN CATCH PROCEDURE / Unknown Collection / Unknown 12/26/2019 3:07 PM CDT 12/26/2019 3:54 PM CDT Gerardo nOeal MD LAB - UR INE CHEMISTRY ORDERABLES Performing Organization Address [facility]/ZIP Co de Phone Number [address] [phone] [phone] * PROTEIN URINE RANDOM QUANTITATIVE (12/26/2019 3:07 PM CDT) Protein Urine 47 Not Established mg/dL 12/26/2019 4:13 PM CDT [facility] Urine URINE SPECIMEN OBTAINED BY CLEAN CATCH PROCEDURE / Unknown Collection / Unknown 12/26/2019 3:07 PM CDT 12/26/2019 3:54 PM CDT Gerardo Oneal MD LAB - UR INE CHEMISTRY ORDERABLES [address] [phone] [phone] * (ABNORMAL) URINALYSIS REFLEX TO MICROSCOPIC NO CULTURE (12/26/2019 3:07 PM T) Color UA Yellow Straw, Yellow, Colorless 12/26/2019 4:17 PM [facility] Clarity UA Clear Clear, t Cloudy 12/26/2019 4:17 PM [facility] Specific [place] UA 1.011 1.005 - 1.030 12/26/2019 4:17 PM [facility] pH UA 5.0 5.0 - 8.0 pH 12/26/2019 4:17 PM [facility] Protein UA 1+(A) Negative mg/dL 12/26/2019 4:17 PM [facility] Glucose UA Negative Negative mg/dL 12/26/2019 4:17 PM [facility] Ketone UA Negative Negative mg/dL 12/26/2019 4:17 PM [facility] Bilirubin UA Negative Negative mg/dL 12/26/2019 4:17 PM [facility] Blood UA Negative Negative 12/26/2019 4:17 PM [facility] Nitrite UA Negative Negative 12/26/2019 4:17 PM [facility] Leukocyte Esterase Negative Negative 12/26/2019 4:17 PM [facility] Urobilinogen UA Negative Negative mg/dL 12/26/2019 4:17 PM [facility] RBC UA 0-2 None Seen, 0-2, 3-5 /HPF 12/26/2019 4:17 PM [facility] WBC UA 6-10(A) None Seen, 0-5 /HPF 12/26/2019 4:17 PM [facility] Bacteria UA Trace None, Trace /HPF 12/26/2019 4:17 PM [facility] Squamous Epithelial Cells UA 11-20(A) None Seen, 0-2 /HPF 12/26/2019 4:17 PM [facility] Urine URINE SPECIMEN OBTAINED BY CLEAN CATCH PROCEDURE / Unknown Collection / Unknown 12/26/2019 3:07 PM CDT 12/26/2019 3:54 PM [facility] - 12/26/2019 4:17 PM CDT Gerardo Nam Oneal MD LAB - UR INALYSIS ORDERABLES [facility] [address] [place] [phone], [facility] [phone] * (ABNORMAL) RENAL FUNCTION PANEL (12/26/2019 3:07 PM CDT) BUN 27(H) 7 - 26 mg/dL 12/26/2019 4:12 PM [facility] Creatinine 1.5(H) 0.6 - 1.2 mg/dL 12/26/2019 4:12 PM [facility] Sodium 143 136 - 145 mmol/L 12/26/2019 4:12 PM [facility] Potassium 5.0(H) 3.5 - 4.5 mmol/L 12/26/2019 4:12 PM [facility] Chloride 105 98 - 107 mmol/L 12/26/2019 4:12 PM [facility] CO2 34(H) 22 - 29 mmol/L 12/26/2019 4:12 PM [facility] Glucose 90 70 - 115 mg/dL 12/26/2019 4:12 PM [facility] Albumin 2.8(L) 3.4 - 5.0 g/dL 12/26/2019 4:12 PM [facility] Calcium 8.6 8.4 - 10.2 mg/dL 12/26/2019 4:12 PM [facility] Phosphorus 3.9 2.3 - 4.7 mg/dL 12/26/2019 4:12 PM [facility] Anion Gap 9 8 - 18 12/26/2019 4:12 PM [facility] BUN/Creatinine Ratio 18 7 - 23 12/26/2019 4:12 PM [facility] Osmolality Calculated 301(H) 270 - 300 mOsm/kg 12/26/2019 4:12 PM [facility] eGFR 49(L) >60 mL/min/1.7 3 m2 12/26/2019 4:12 PM [facility] Blood BLOOD SPECIMEN / Unknown Lab Venipuncture / Unknown 12/26/2019 3:07 PM CDT 12/26/2019 3:54 PM CDT Gerardo Oneal MD LAB - CH EMISTRY ORDERABLES [address] [phone], [facility] [phone] documented in this encounter Visit Diagnoses Diagnosis Chronic kidney disease (CKD), stage III (moderate) (HCC) Chronic kidney disease, Stage III (moderate) ERIC (acute kidney injury) (HCC) Acute kidney failure, unspecified documented in this encounter Care Teams Welder Production Line Gas Relationship Specialty Start Date End Date Natasha Bates PA-C [address] [place] [phone] PCP - General 03/21/19 06/20/23 documented as of this encounter
--- OUTSIDE RECORDS SUMMARY | 2024-05-22 05:42 | XMS_ITS | Encounter Summary ---
Author Organization [facility] Address [address] [facility] [place] [address] Care Team Providers Care Credit Relationship Manager Name Role Phone Natasha Bates PA-C Primary Care Provider + Reason for Visit * Reason Comments Dyspnea Encounter Details Date Type Department Care Team (Late st Contact Info) Description 03/31/2020 4:00 PM AUTOMATION MECHANIC Office Visit [facility] [address] [facility], [facility] [address] Jesus Welch MD [address] [place] [address] Pneumococcal vaccine administered (Primary Dx); Dyspnea on exertion; MIRELLA (obstructive sleep apnea); Pulmonary hypertension (HCC); Class 3 severe obesity with serious comorbidity and body mass index (BMI) of 45.0 to 49.9 in adult, unspecified obesity type (HCC) Social History Tobacco Use Types Packs/Day Years Used Date Smoking Tobacco: Never Smokeless Tobacco: Never Tobacco Cessation:Counseling Given: Yes Alcohol Use Standard Drinks/Week Comments Yes 0 [...] as of this encounter Progress Notes * Jesus Welch MD - 03/31/2020 4:03 PM CST Images from the original note were not included. PULMONARY CLINIC NOTE HPI: Howie Delaney is a 54 year old male with pmhx of CKD, HFpEF, HLD, MIRELLA recently started on CPAP and oxygen PRN, morbid obesity presents to Pulmonary Clinic after his recent hospital admission. [facility] for acute on chronic hypoxic respiratory failure with worsening of LE edema, CXR with left pleural effusion, treated for volume overload with IV diuretic and was discharged. His home lasix was temporarily increased to Lasix 80 mg BID upon discharge. Shortness of breath on minimal exertion, can [...] Laterality Date ??? BLADDER PROCEDURE/SURGERY arteficial EUS No Known Allergies Family History Problem Relation Name Age of [...] / 24 hours., Disp: , Rfl: ??? albuterol HFA (PROAIR HFA) 108 (90 Base) MCG/ACT inhaler, Inhale 2 puffs by mouth every 4 hoursas needed for Shortness of Breath, Wheezing or Cough, Disp: 1 Inhaler, Rfl: 1 ??? allopurinol (ZYLOPRIM) 100 MG tablet, Take 100 mg by mouth 2 times daily, Disp: , Rfl: ??? amLODIPine (NORVASC) 5 MG tablet, Take 1 tablet by mouth once daily, Disp: 90 tablet, Rfl: 4 ??? atorvastatin (LIPITOR) 40 MG tablet, every 24 hours, Disp: , Rfl: ??? carvedilol (COREG) 25 MG tablet, Take 25 mg by mouth 2 times daily with morning and evening meal, Disp: , Rfl: ??? furosemide (LASIX) 40 MG tablet, Take 2 tablets by mouth 2 times daily for 90 days (Patient taking differently: Take 20 mg by mouth 2 times daily ), Disp: 360 tablet, Rfl: 3 ??? gabapentin (NEURONTIN) 300 MG capsule, Take 300 mg by mouth 3 times daily , Disp: , Rfl: ??? isosorbide mononitrate CR 24hr (IMDUR) 30 MG tablet, Take 1.5 tablets by mouth once daily, Disp: 90 tablet, Rfl: 4 ??? PARoxetine (PAXIL) 10 MG tablet, Take 10 mg by mouth once daily, Disp: , Rfl: ??? traZODone (DESYREL) 50 MG tablet, Take 1 tablet by mouth at bedtime (Patient not taking: Reported on 03/31/2020), Disp: 30 tablet, Rfl: 5 ??? traZODone (DESYREL) 50 MG tablet, Take 1 tablet by mouth at bedtime (Patient not taking: Reported on 03/31/2020), Disp: 30 tablet, Rfl: 5 Cannot display prior to admission medications because the patient has not been admitted in this contact. Immunization History Administered Date(s) Administered ??? FLU VACCINE QUAD IIV4 SPLIT PF IM 05/11/2019 Immunizations: Uptodate with influenza, will schedule Pneumovax next visit PE: There were no vitals filed for this visit. Estimated body mass index is 50.27 kg/m?? as calculated from the following: Height as of 03/18/20: 6' 1 (1.854 m). Weight as of 03/18/20: 381 lb (172.8 kg). Gen: Morbidly obese HEENT: NC/AT, EOMI. [...] edema LABS: Reviewed Recent Labs Component Name 02/04/20 0518 02/03/20 0402 02/02/20 0434 WBC 9.0 9.5 11.6* RBC 4.54 4.20* 4.13* HGB 12.7* 12.1* 11.7* HCT 40.7 37.8* 37.7* MCV 89.6 90.0 91.3 MCHC 31.2* 32.0 31.0* PLTCOUNT 235 220 245 NEUTPCT 57.5 55.9 58.7 NEUTABS 5.2 5.3 6.8 Recent Labs Component Name 02/19/20 1532 02/19/20 0000 02/13/20 1416 02/01/20201302/01/20201311/03/19 2337 11/03/19 2337 10/30/19 1350 10/30/19 1350 06/11/199 06/11/192228 SODIUM 142 142 146* - - - - - 144 - - POTASSIUM 4.9 4.9 4.8 - 4.0 - 4.9* - 4.3 - 4.0 CHLORIDE 101 101 99 - - - - - 100 - - CO2 30 30 32* - 35* - 30* - 30* - 30* BUN 41* 41.0* 40* - 30* - 31* - 27* - 20 CREATININE 1.56* 1.56* 1.78* - 1.5* - 1.4* - 1.41* - 1.3* GLUCOSE 82 82 94 - 82 - 100 - 89 - 86 CALCIUM 9.4 9.40 9.3 - 9.3 - 8.9 - 9.3 - 9.4 ALT - - - - 32 - 15 - - - 18 ALKPHOS - - - - 97 - 87 - - - 81 AST - - - - 28 - 18 - - - 18 EGFR 46* 46 42* - 49* - 53* - 56* - 58* EGFRAFR 56* 56 49* - - - - - 65 - - ALBUMIN - - - - - - - - 3.7* - - - = values in this [...] 2/2 morbid obesity, Heart failure with preserved EF with volume overload # MIRELLA on CPAP with bleed in oxygen 2L at night # Chronic hypoxic respiratory failure, uses oxygen as needed # Pulmonary hypertension likely related to Group II and Group III # Morbid obesity and following up with Bariatric surgery PLAN: Diagnostic: Follow up on- - Six minute walk test - Oxygen Desaturation study - Complete PFT with and without Bronchodilator Therapeutic: - To complete diagnostic work up - Use 2L oxygen with exertion and with CPAP until desaturation study is resulted - follow up with cardiology and nephrology to optimize diuretic regimen and to keep him euvolemic Surgical risk Evaluation: - KINGASCAT score of 41 places him at intermediate risk for post-operative complication - Consider extubation to CPAP after the surgery and encourage patient to bring his CPAP to the hospital - Consider optimization of volume status prior to the surgery- kindly follow cardiology recommedation Follow-up after the testing. Jesus Welch MD Pulmonary Disease and Critical Care Medicine- PGY4 12/31/2019 4:04 PM MATION MECHANIC Associated attestation - Andrew Lam MD - 03/31/2020 9:11 PM AUTOMATION MECHANIC I have seen, examined and discussed the patient with the fellow and I agree with the the findings and plan of care/recommendations as documented by the fellow. Date of service: 03/31/2020 Andrew Lam M.D. Air Brakes Inspector of Internal Medicine Division of Pulmonary, Critical Care and Sleep Medicine [facility] documented in this encounter Plan of Treatment Not on file documented as of this encounter Visit Diagnoses Diagnosis Pneumococcal vaccine administered- Primary Dyspnea on exertion Other dyspnea and respiratory abnormality MIRELLA (obstructive sleep apnea) Obstructive sleep apnea (adult) (pediatric) Pulmonary hypertension (HCC) Other chronic pulmonary heart diseases Class 3 severe obesity with serious comorbidity and body mass index (BMI) of 45.0 to 49.9 in adult, unspecified obesity type (HCC) documented in this encounter Care Teams Credit Relationship Manager Relationship Specialty Start Date End Date Natasha Bates PA-C [address] [place] [address] PCP - General 03/21/19 06/20/23 documented as of this encounter
--- OUTSIDE RECORDS SUMMARY | 2024-05-22 05:42 | XMS_ITS | Encounter Summary ---
Author Organization [facility] Address [address] [facility] [place] [address] Care Team Providers Care Electrophysiology Scientist Name Role Phone Natasha Bates PA-C Primary Care Provider + Encounter Details Date Type Department Care Team (Late st Contact Info) Description 08/15/2020 Orders Only [facility] - COVID Vaccine [address] [place] [address] Agusto Smart MD [address] [place] [address] Need for vaccination Social History Tobacco Use Types Packs/Day Years [...] as of this encounter Visit Diagnoses Diagnosis Need for vaccination Need for prophylactic vaccination and inoculation against unspecified single disease documented in this encounter Care Teams Electrophysiology Scientist Relationship Specialty Start Date End Date Natasha Bates PA-C [address] [place] [address] PCP - General 03/21/19 06/20/23 documented as of this encounter
--- OUTSIDE RECORDS SUMMARY | 2024-05-22 05:42 | XMS_ITS | Encounter Summary ---
Author Organization [facility] Address [address] [place] [address] Care Team Providers Care Sheet Ironworker Name Role Phone Natasha Bates PA-C Primary Care Provider + Reason for Visit * Reason Onset Date Comments Follow-up 06/19/2020 Encounter Details Date Type Department Care Team (Late st Contact Info) Description 06/19/2020 Telephone [facility] [address] [facility] [address] [place], [place] [id number] Rajni Webb RN Follow-up Social History Tobacco [...] Telephone Encounter - Rajni Webb RN - 06/23/2020 3:16 PM ORDER PACKER OR PACKAGER Cr 1.6-per Dr Moreno repeat in 2 weeks Called pt and reviewed labs results Pt is aware repeat BMP order mailed to pt R PACKER OR PACKAGER documented in this encounter Plan of Treatment Not on file documented as of this encounter Visit Diagnoses Diagnosis Congestive heart failure, unspecified HF chronicity, unspecified heart failure type (HCC)- Primary Renal insufficiency Unspecified disorder of kidney and ureter documented in this encounter Care Teams Sheet Ironworker Relationship Specialty Start Date End Date Natasha Bates PA-C [address] [place] [address] PCP - General 03/21/19 06/20/23 documented as of this encounter
--- OUTSIDE RECORDS SUMMARY | 2024-05-22 05:42 | XMS_ITS | Encounter Summary ---
Author Organization [facility] Address [address] [facility] [place] [address] Care Team Providers Care Project Consultant Name Role Phone Natasha Bates PA-C Primary Care Provider + Reason for Visit * Reason Comments Obstructive Sleep Apnea Cpap Follow-up * Evaluate & Treat (Routine) - Closed Specialty Diagnoses / Procedures Referred By Malena sagastume Referred To Contact Sleep Center Diagnoses MIRELLA (obstructive sleep apnea) Jesus Welch MD [address] [place] [address] Aff u [facility] [address] [place] [address] Referral ID Status Reason Start Date Expiration Date V isits Requested Visits Authorized [id number] Closed Specialty Services Required 12/31/2019 12/30/2020 1 1 Encounter Details Date Type Department Care Team (Late st Contact Info) Description 01/15/2020 4:00 PM CDT Video Visit [facility] [address] [place] [address] Jesus Welch MD [address] [place] [address] Sunshine Mayo DO [address] [address] MIRELLA (obstructive sleep apnea) ; Sleep related hypoxia Social History Tobacco Use Types Packs/Day Years [...] - Inhaled Oxygen Concentration - - Weight 152 kg (335 lb) 01/15/2020 3:35 PM CDT Height 185.4 cm (6' 1 ) 01/15/2020 3:35 PM CDT Body Mass Index 44.2 01/15/2020 3:35 PM CDT documented in this encounter Functional [...] Progress Notes * Sunshine Mayo, DO - 01/15/2020 4:19 PM CDT [facility], First Floor [address] [place] [address] Telephone : [phone] Medical Records OVERNIGHT OXIMETRY REQUEST FORM Name: Howie Delaney Date of : 1965 Date of Request: 01/15/2020 Age: [age] year old Sex: male Test Ordered: [] Room air [x] O2 at 3 L/min (through CPAP) [] CPAP at ___ cmH2O [x] APAP at : current settings [] BPAP at EPAP = ___ cmH2O and IPAP = ___ cmH2O Impression: [x] Obstructive sleep apnea [x] Sleep-related hypoxemia disorder [] Sleep-related hypoventilation syndrome [] Central sleep apnea [] Chronic obstructive pulmonary disease (COPD) [] Interstitial lung disease, specify: [x] Pulmonary hypertension [] Hepatopulmonary syndrome [x] Other causes, specify: chronic respiratory failure, obesity hypoventilation syndrome, DME Provider: Please fax results to . Sunshine Mayo DO Family and [facility] Medicine Sleep Medicine Specialist [facility] NPI #[id number] This note was electronically signed on 01/15/2020. * Sunshine Mayo DO - 01/15/2020 3:51 PM CDT Telemedicine Note Today's visit was conducted [...] on visit on date of encounter is: 20 minutes with 20 minutes spent in medical discussion [facility], First Floor [address] [place] [address] Telephone : [phone] Medical Records SLEEP DISORDERS CLINIC INITIAL VISIT NOTE Patient Name:Howie Delaney Date of : 1965 Date of Visit: 01/15/2020 Age: [age] year old Sex: male Chief Complaint: [x] Snoring [x] Excessive sleepiness [x] Sleep apnea History of Present Illness: He believes he has a long hisroy of snoring for many years. He has not been told he stops breathingduring sleep. His weight has been high for a long time (BMI 44). He had a sleep study at [facility] about 3 months ago. He has had CPAP for about 3 months he uses it nightly. Additionally, he has been bleeding oxygen through his CPAP. He states that priorto that, he was only on oxygen at night time. He has been feeling more rested since using the PAP but notes that he sometiems wakes up in the middle of the night wihout the machine on. His lungs feel somewhat dry / dry mouth in the AM after using machine. He feels his lungs are still tired . He is using a full face mask goes over the nose, mouth and forehead. Used 2-3 masks and has tried a few nasal masks but didn't work as well. His DME is: [facility] in [place]. Fax: Phone number: [phone] About a month ago he had chest pains with a syncopal episode. He was found on the floor and taken by ambulace to [place], transferred to [facility]. Sleep ROS: No sleep walking, sleep talking, sleep terrors. No nightmares or dream-enactment behaviors. No bruxism. No RLS or leg cramps No cataplexy, sleep paralysis, hypnagogic/hypnopompic hallucinations, or automatic behavior No dozing or falling asleep while driving No car accidents due to sleepiness No sleep attacks Past Medical History: Diagnosis Date ??? CKD (chronic kidney disease) ??? HFrEF (heart failure with reduced ejection fraction) ??? HLD (hyperlipidemia) ??? HTN (hypertension) ??? MIRELLA (obstructive sleep apnea) 05/13/2019 Past Surgical History: Procedure Laterality Date ??? 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 Exercise: [] Yes [x] No Type: [] walking [] jogging/running [] cycling [] weights/machines [] swimming [] other, describe: Family History Problem Relation Name Age of Onset ??? Other Mother pulmonary hypertension ??? Other Nephew pulmonary hypertension Current Outpatient Medications: ??? acetaminophen (TYLENOL) 325 [...] every 24 hours, Disp: , Rfl: ??? busPIRone (BUSPAR) 5 [...] by mouth once daily, Disp: , Rfl: No Known Allergies Social History Socioeconomic History [...] file Gets together: Not on file Attends confucianist service: Not on file Active member of [...] Social History Narrative ??? Not on file Sleep Screening Tools [place] = 16 STOP-BANG = 8 REVIEW OF OTHER SYSTEMS The patient denies any current respiratory symptoms: no cough, phlegm, chest pain, wheezing, dyspnea, orthopnea, or paroxysmal nocturnal dyspnea. No nasal congestion or drainage. Heartburn is controlled. No fever, chills No weight loss No nausea, vomiting No abdominal pain No heartburn No diarrhea, constipation No rash No joint pains All other systems unremarkable. Data review: PSG 09/21/19: (split) Baseline AHI: 30.2 Low O2 sat: 86 % mintues with O2 below 88%: not reported CPAP titration: did best on 11-12 cmH2o however no AHI at this level is reported. It is not clear if he has sleep hypoxemia or if it resolved on adequate levels of PAP as this information is not reported. Physical Examination: General Survey: General: The patient is coherent and not in cardiopulmonary distress. Ht 6' 1 (1.854 m) Wt 335 lb (152 kg) BMI 44.2 kg/m2 [place] and anicteric conjunctivae. Normal tympanic membranes. No cervical lymphadenopathy. No JVD. No thyromegaly. Vesicular breath sounds. No crackles. No rhonchi. No wheezing. Regular heart rhythm. No S3 or S4. No murmurs. No cyanosis. No clubbing. No edema. No rash No joint swelling or tenderness ASSESSMENT: 1. Severe obstructive sleep apnea on PSG 10/10/19 in [place] 2. Pulmonary hypertension (idopathic vs long standing MIRELLA) 3. Recent cardiac cath no blockage but showed PAD 30 mmHg 4. Shortness of breath, following with pulmonology 5. Obesity BMI 44. - plan for bariatric surgery soon. 6. History of chronic respiratory failure with suspected obesity hypoventilation syndrome on oxygenat night with CPAP. PLAN: 1. MIRELLA (obstructive sleep apnea) I explained to the patient the mechanism and adverse health effects of untreated MIRELLA. Adverse health effects may include sleepiness, fatigue, depression, and insomnia as well as and increased risk ofmotor vehicle accidents, hypertension, heart disease, stroke, diabetes, pulmonary hypertension, arrhythmia, and . I discussed the efficacy, benefits, and risks of the following therapeutic options for MIRELLA: Continuous positive airway pressure (CPAP). If he is not able to tolerate CPAP, additional treatment options will be discussed. PSG reviewed from [place] in 09/2019. Baseline AHI is reported as 30.2. He did best on 11-12 cmH2O however no AHI at this level is reported. He reports a history of sleep hypoxemia though this isnot well documented. It is not clear if he has sleep hypoxemia or if it resolved on adequate levelsof PAP. He is currently using PAP with 3L O2 bled through the machine. We will order overnight oximetry on this setting. We will have him follow up in 4-6 weeks to review the overnight oximetery study and also CPAP download. He has PFT's coming up soon. Sunshine Mayo DO Family and Community [facility] Sleep Medicine Specialist [facility] documented in this encounter Plan of Treatment Not on file documented as of this encounter Visit Diagnoses Diagnosis MIRELLA (obstructive sleep apnea)- Primary Obstructive sleep apnea (adult) (pediatric) Sleep related hypoxia Idiopathic sleep related nonobstructive alveolar hypoventilation documented in this encounter Care Teams Project Consultant Relationship Specialty Start Date End Date Natasha Bates PA-C [facility] [place] [address] PCP - General 03/21/19 06/20/23 documented as of this encounter
--- OUTSIDE RECORDS SUMMARY | 2024-05-22 05:42 | XMS_ITS | Encounter Summary ---
Author Organization [facility] Health Address [address] [place] [address] Care Team Providers Care Audit Tech Name Role Phone Natasha Bates PA-C Primary Care Provider + Reason for Visit * Reason Comments Establish Care INCONTINENCE Encounter Details Date Type Department Care Team (Late st Contact Info) Description 01/01/2020 9:00 AM CDT Office Visit [facility] Urology [address] [place] [address] Deric Hamilton MD Urinary incontinence, stress, male (Primary Dx); Recurrent UTI; History of gross hematuria; Erectile dysfunction following prostate ablative therapy Social History Tobacco Use Types Packs/Day Years [...] Sign Reading Time Taken Comments Blood Pressure 119/76 01/01/2020 8:46 AM CDT Pulse 72 01/01/2020 8:46 AM CDT Temperature 36.2 ??C (97.2 ??F) 01/01/2020 8:46 AM CD T Respiratory Rate - - Oxygen Saturation 92% 01/01/2020 8:46 AM CDT Inhaled Oxygen Concentration - - Weight 165.6 kg (365 lb) 01/01/2020 8:46 AM CDT Height 185.4 cm (6' 1 ) 01/01/2020 8:46 AM CDT Body Mass Index 48.16 01/01/2020 8:46 AM CDT documented in this encounter Functional [...] as of this encounter Progress Notes * Deric Hamilton MD - 01/01/2020 10:26 AM CDT [facility] Division of Urologic Surgery Deric Hamilton MD Date of Visit: 01/01/2020 Patient Name: Howie Delaney : 1965 Medical Record: [id number] Contact (home) Age: [age] year old Sex: male Referring Physician: No referring provider defined for this encounter. Chief Complaint: Incontinence, ED, intermittent gross hematuria History of Present Illness: 54 y.o. male with extensive urologic history - has been followed by [facility], but is transferring care to [facility] at this time and is here to establish care. 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 This was followed by placement of AUS in 2018. Pt is mostly dry with this, but still have urgency and post void dribbling. Also has intermittent gross hematuriawhich has had negative workups in the past. Most recently was scoped by Dr. Rogers at [facility] just 2 months ago with a normal post TUR prostate and an appropriately functioning AUS without erosion. Pt has had some recurrent uti's. Finally, pt has had ED since his TURP as well. Unable to get any erections. Has not tried any treatments. Is unable to take oral meds due to isosorbide use. Past Medical History; Past Medical History: Diagnosis Date ??? CKD (chronic kidney disease) ??? HFrEF (heart failure with reduced ejection fraction) ??? HLD (hyperlipidemia) ??? HTN (hypertension) ??? MIRELLA (obstructive sleep apnea) 05/13/2019 Past Surgical History: Past Surgical History: Procedure Laterality Date ??? BLADDER PROCEDURE/SURGERY arteficial EUS Current Medications: Current Outpatient Medications Medication Sig Dispense [...] mouth once daily 90 tablet 4 ??? sertraline (ZOLOFT) 25 MG tablet Take 25 mg by mouth once daily No current facility-administered medications for this visit. Allergies; Patient has no known allergies. Family History: Family History Problem Relation Name Age of Onset ??? Other Mother pulmonary hypertension ??? Other Nephew pulmonary hypertension Fam history is noncontributory to this problem. Social History: Social History Socioeconomic History ??? [...] file Gets together: Not on file Attends mosque service: Not on file Active member of [...] ??? Not on file Review of Systems: General: Negative Skin: Negative Eyes: Negative Ears/nose/mouth: Negative Lungs:+ SOB on exertion Heart:Negative Gastrointestinal: negative Genitourinary: See HPI Musculoskeletal: Negative Nervous system: Negative Reproductive system: Negative Hematologic: Negative Lymphatic: Negative Endocrine: Negative Physical Exam: Vital Signs: BP 119/76 Pulse 72 Temp 97.2 ??F (36.2 ??C) (Temporal Artery) Ht 6' 1 (1.854 m) Wt 365 lb (165.6 kg) SpO2 92% BMI 48.16 kg/m2 Gen - WN, WD male in NAD HEENT - NC/AT, EOMI Chest - normal respiratory rate and effort CV - RRR Abd - nondistended, obese Ext - no c/c/e Skin - no rash/erythema noted, good skin turgor Neuro - normal gait, normal speech, A&Ox3 UA today + protein only, otherwise normal PVR by noninvasive bladder scan is 30 ml Diagnosis: ED, incontinence, recurrent uti, and hx of hematuria Recommendations: As far as his incontinence, he already has an AUS in place that is working appropriately and looks fine on cysto (by Dr. Rogers, his operative surgeon). I offered uds to look further but advised pt thateven with an AUS, he can still have a small amount of leakage. He does not wish to pursue this as he has problems with invasive office procedures. As for his hematuria - this has also been previously looked at and he had a cysto within the past few months. I do not feel he needs to have this repeated. We did discuss addition of proscar in case there is still a prostatic source of the bleed. He declines. For his UTI's, he has already been scoped. His urine looks fine today and he empties well. Without a surgically correctable cause for his uti's, I recommend these be treated as needed by his primary care. Finally, his ED cannot be treated with oral medications due to his isosorbide. We discussed muse, ici, and luc as options. I would not consider IPP until after weight loss - pt is currently seeing a bariatric surgeon. Pt is not interested in the other treatments mentioned. Plan follow up in one year, sooner as needed. Pt understands and agrees with treatment plan. Deric Hamilton MD 01/01/2020 10:26 AM documented in this encounter Plan of Treatment Not on file documented as of this encounter Visit Diagnoses Diagnosis Urinary incontinence, stress, male- Primary Stress incontinence, male Recurrent UTI Urinary tract infection, site not specified History of gross hematuria Erectile dysfunction following prostate ablative therapy documented in this encounter Care Teams Audit Tech Relationship Specialty Start Date End Date Natasha Bates PA-C [address] [place] [id number] PCP - General 03/21/19 06/20/23 documented as of this encounter
--- OUTSIDE RECORDS SUMMARY | 2024-05-22 05:42 | XMS_ITS | Encounter Summary ---
Author Organization [facility] Address [address] [place] [address] Care Team Providers Care Inventory And Pricing Associate Name Role Phone Natasha Bates PA-C Primary Care Provider + Reason for Referral * Radiology Services (Routine) - Closed Specialty Diagnoses / Procedures Referred By Malena sagastume Referred To Contact Ultrasound Diagnoses Chronic kidney disease (CKD), stage III (moderate) (HCC) ERIC (acute kidney injury) (HCC) Procedures US RETROPERITONEAL COMPLETE US ABDOMEN COMPLETE Gerardo Zavala MD [address] [place] [address] [facility] [address] [place] [address] Referral ID Status Reason Start Date Expiration Date Visits Re quested Visits Authorized [id number] Closed 01/03/2020 12/25/2020 1 1 Reason for Visit * Reason Comments Follow-up shortness of breath, lower extremity swelling wearing support socks Encounter Details Date Type Department Care Team (Late st Contact Info) Description 12/26/2019 1:00 PM CDT Office Visit [facility] - Nephrology [address] [place] [address], [place] [address] Gerardo Zavala MD [address] [place] [address] [place] [address] ERIC (acute kidney injury) (HCC) (Primary Dx); CRD (chronic renal disease), stage II; Chronic kidney disease (CKD), stage III (moderate) (HCC) Social History Tobacco Use Types Packs/Day [...] Sign Reading Time Taken Comments Blood Pressure 120/63 12/26/2019 12:57 PM CDT Pulse 65 12/26/2019 12:57 PM CDT Temperature 36.4 ??C (97.6 ??F) 12/26/2019 12:57 PM C DT Respiratory Rate 18 12/26/2019 12:57 PM CDT Oxygen Saturation 99% 12/26/2019 12:57 PM CDT Inhaled Oxygen Concentration - - Weight 169.6 kg (374 lb) 12/26/2019 12:57 PM CDT Height - - Body Mass Index 49.34 12/20/2019 7:07 AM CDT documented in this [...] this encounter Patient Instructions * Patient Instructions* Toya Jameson - 12/26/2019 2:37 PM CDT PLEASE CALL [facility] TO SCHEDULE ULTRASOUND AT [phone]. documented in this encounter Progress Notes * Gerardo Zavala MD - 12/26/2019 1:52 PM CDT Nephrology Clinic Note Date of Visit: 12/26/2019 Time of Visit: 1:52 PM Chief Complaint Patient presents with ??? Follow-up shortness of breath, lower extremity swelling wearing support socks Patient is a 53 year old male who presents for follow up of CKD stage 3 and hyperkalemia.Patient has history significant for pulmonary HTN, MIRELLA, heart failure with preserved EF. He was initially referred by his PCP for hyperkalemia and CKD. His renal function was moderately decreased with a creatinine of 1.37 (eGFR 58) and hyperkalemia with serum K 5 to 6 meq/l. Patient was started on f urosemide and veltassa and K levels improved Recently, he was admitted for presyncope in October 2019. A cardiac catheterization on 12/20/2019 showed normal coronaries, elevated filling pressures. RA 15 mmHg, PAP 30 mmHg, LVEDP 24 mmHg. He did not get IV contrast because creatinine was elevated. Recent labs: 12/20/2019: Na 137, K 4.1, CO2 26, creatinine and BUN 1.7 and 36, respectively (stable). Subjective: Patient is feeling relatively fine, except for shortness of breath on exercise. He had to stop twice from the parking garage to this office. At night he uses CPAP He has swelling in his legs, which increases during the day and improves at night when resting. Denies chest pain, but it has occurred several times, reason for which he has consulted several times to ED. He urinates by pressure over his lower abdomen as he had an implanted sphincter. He urinates about 3 times at night. He has gain weight. Medications: Furosemide 20 mg BID, amlodipine 5, carvedilol 25 BID. Patient Active Problem List Diagnosis Date Noted ??? Pulmonary hypertension 11/07/2019 Priority: Not Prioritized [...] file prior to visit. No Known Allergies No past surgical history on file. No family history on file. Social History Tobacco Use ??? Smoking status: Never Smoker ??? Smokeless tobacco: Never Used Substance Use Topics ??? Alcohol use: Yes Frequency: 2-4 times a month Drinks per session: 1 or 2 Binge frequency: Never Comment: maybe 4 drinks a month ??? Drug use: Never Objective: Vitals: 12/26/19 1257 BP: 120/63 Pulse: 65 Resp: 18 Temp: 97.6 ??F (36.4 ??C) SpO2: 99% Weight: (!) 169.6 kg (374 lb) Estimated body mass index is 49.34 kg/m?? as calculated from the following: Height as of 12/20/19: 1.854 m (6' 1 ). Weight as of this encounter: 169.6 kg (374 lb). General: Alert, cooperative, no distress, appears stated age. Obese Head/Neck: Normocephalic, without obvious abnormality, atraumatic. Neck supple, symmetrical, trachea midline, no carotid bruit and no thyromegaly. ENT/Mouth: Conjunctivae/corneas clear. No cervical or supraclavicular LAD. CV: Regular rate and rhythm, S1, S2 normal, no murmur, click, rub or gallop. Pulses + symmetric BLE, 2+ edema in lower extremities Respiratory: Clear to auscultation bilaterally. GI: Soft, non-tender. Bowel sounds normal. No masses, No organomegaly. M/S: Back symmetric, no curvature. ROM normal. No CVA tenderness. Extremities normal, atraumatic, no cyanosis. Skin: Skin color normal. No rashes or lesions. Neurologic: No asterixis. Patient can walk, mobilizes all extremities. Psychiatric: Normal range mood/affect. Data Review Recent Labs Component Name 12/14/19 0745 11/07/19 [...] 92.6 - 92.8 - 91.4 92.3 92.1 MCH 28.5 28.4 28.7 - 29.2 - 28.2 28.5 28.3 MCHC 30.7* 31.0* 31.0* - 31.4* - 30.9* 30.9* 30.8* RDWSD 52.0* 49.1 50.0 - 49.8 - 48.2 48.3 49.1 RDW 15.3* 14.8 14.8 - 14.7 - 14.4 14.4 14.6 MPV 12.1 12.0 12.2 - 12.0 - 11.2 11.9 12.0 NRBCABS 0.00 0.00 0.00 - 0.00 - 0.00 0.00 0.00 NRBCAUTOPCT 0.0 0.0 0.0 - 0.0 - 0.0 0.0 0.0 NEUTPCT - - - - 73.7* - 64.1 - 60.3 LYMPHSPCT - - - - 18.2* - 23.6 - 27.2 MONOPCT - - - - 6.1 - 7.7 - 7.4 EOSPCT - - - - 1.5 - 4.0 3 4.1 BASOPCT - - - - 0.3 - 0.3 - 0.6 IMMGRANSPCT - - - - 0.2 - 0.3 - 0.4 NEUTABS - - - - 9.1* - 7.5* 8.82* 8.3* LYMPHS - - - - 2.3 - 2.8 5.32* 3.7* MONO - - - - 0.75* - 0.90* 0.61 1.02* EOS - - - - 0.18 - 0.47* 0.46* 0.56* BASO - - - - 0.04 - 0.04 - 0.08* TOTCELLCNT - - - - - - - 100 - - = values in this interval not displayed. Recent Labs Component Name 12/20/19 0700 12/14/19 0745 11/07/19 0413 11/06/19 0559 11/03/19 2337 06/13/19 0355 06/11/19 2229 06/10/19 2257 BUN 36* 37* 17 18 - 31* - 21 - 20 26 CREATININE 1.7* 1.7* 1.4* 1.3* - 1.4* - 1.5* - 1.3* 1.4* NA 137 141 141 144 - 146* - 142 - 145 142 POTASSIUM 4.1 4.5 3.6 3.7 - 4.9* - 3.9 - 4.0 4.7* CL 107 105 106 107 - 107 - 102 - 106 106 CO2 26 28 30* 30* - 30* - 29 - 30* 23 CALCIUM 8.8 8.7 8.3* 8.5 - 8.9 - 9.2 - 9.4 9.2 PROT - - - - - 7.1 - - - 7.1 7.8 ALB - - - 2.5* - 2.7* - 2.7* - 2.7* 2.9* TBILI - - - - - 0.5 - - - 0.6 0.4 ALKPHOS - - - - - 87 - - - 81 80 ALT - - - - - 15 - - - 18 21 AST - - - - - 18 - - - 18 28 ANIONGAP 8 13 9 11 - 14 - 15 - 13 18 BCR 21 22 12 14 - 22 - 14 - 15 19 OSMOLALITY 293 301* 293 299 - 309* - 296 - 302* 298 AGRATIO - - - - - 0.6* - - - 0.6* 0.6* EGFR 42* 42* 53* 58* - 53* - 49* - 58* 53* - = values in this interval not displayed. No results for input(s): DSDNAIGGAB in the last 12877 hours. Recent Labs Lab 11/03/19 2337 TSH 1.196 Recent Labs Component Name 07/05/19 1232 HGBA1C 5.7* No results for input(s): FERRITIN in the last 39633 hours. No results for input(s): IRON, TIBC in the last 65014 hours. No results for input(s): PTHINTACT in the last 25064 hours. Lab results smartLinks are not currently available Lab results smartLinks are not currently available Lab results smartLinks are not currently available Urine Studies Recent Labs Component Name 11/04/19 1441 COLORU Yellow CLARITYU Clear LABSPEC 1.010 PROTEINU 1+* GLUCOSERUR Negative KETONES Negative BILIRUBINUR Negative BLOODU 3+* NITRITE Negative LEUKOCYTE Negative UROBILINUA Negative RBCUA 51-100* WBCU 0-5 SQUAMOUS 0-2 No results for input(s): ALBUMINRA in the last 72335 hours. Invalid input(s): CREATININEUR No results for input(s): MICROALB in the last 36677 hours. Assessment: # CKD stage 3: Creatinine 1.7 (increased from his previous BL 1.3 to 1.5) until October 2019. Possiblypre-renal (?). No clear cause of CKD. Pending results of proteinuria - Renal function panel - Protein/creatinine ratio - Urinalysis - Renal ultrasound # Hyperkalemia: Potassium controlled, recent level 4.1. - Maintain furosemide dose 20 mg PO BID - Follow K level and kidney function closely. # HF, cardiology following. See cardiac cath # Obesity: BMI 47. - Patient counseled about risks associated to obesity including renal disease, heart disease. - Strongly recommend important weight loss. - Suggest evaluation by pulmonology. Addendum 12/27/2019, 9:28 AM Lab results from were reviewed: K 5.0, creatinine decreased from 1.7 to 1.5. Urine protein/creatinine ratio 0.55. Urinalysis showed WBC WBC. Called patient and explained results. Patient understood Will follow K level in 2 weeks. Will order urine culture Follow up in 2 months No orders of the defined types were placed in this encounter. Gerardo Oneal MD Internal Medicine, Div of Nephrology documented in this encounter Miscellaneous Notes * Communication Body - Letitia Vidal RN - 12/26/2019 1:20 PM CDT No complaints during this assessment documented in this encounter Plan of Treatment Not on file documented as of this encounter Results * US RETROPERITONEAL COMPLETE [...] PUNEET VANEGAS on 01/03/2020 4:19 PM . Gerardojose Oneal MD US ORDER MONTEZ * (ABNORMAL) URINALYSIS REFLEX TO MICROSCOPIC NO CULTURE (12/26/2019 3:07 PM CDT) Color UA Yellow Straw, Yellow, Colorless 12/26/2019 4:17 PM [facility] Clarity UA Clear Clear, Slt Cloudy 12/26/2019 4:17 PM [facility] Specific [place] UA 1.011 1.005 - 1.030 12/26/2019 4:17 PM [facility] pH UA 5.0 5.0 - 8.0 pH 12/26/2019 4:17 PM [facility] Protein UA 1+(A) Negative mg/dL 12/26/2019 4:17 PM [facility] Glucose UA Negative Negative mg/dL 12/26/2019 4:17 PM [facility] Ketone UA Negative Negative mg/dL 12/26/2019 4:17 PM [facility] Bilirubin UA Negative Negative mg/dL 12/26/2019 4:17 PM [facility] Blood UA Negative Negative 12/26/2019 4:17 PM [facility] Nitrite UA Negative Negative 12/26/2019 4:17 PM [facility] Leukocyte Esterase Negative Negative 12/26/2019 4:17 PM [facility] Urobilinogen UA Negative Negative mg/dL 12/26/2019 4:17 PM [facility] RBC UA 0-2 None Seen, 0-2, 3-5 /HPF 12/26/2019 4:17 PM [facility] WBC UA 6-10(A) None Seen, 0-5 /HPF 12/26/2019 4:17 PM [facility] Bacteria UA Trace None, Trace /HPF 12/26/2019 4:17 PM [facility] Squamous Epithelial Cells UA 11-20(A) None Seen, 0-2 /HPF 12/26/2019 4:17 PM [facility] Urine URINE SPECIMEN OBTAINED BY CLEAN CATCH PROCEDURE / Unknown Collection / Unknown 12/26/2019 3:07 PM CDT 12/26/2019 3:54 PM CDT [facility] - 12/26/2019 4:17 PM CDT Gerardo Oneal MD LAB - UR INALYSIS ORDERABLES [address] [address], [facility] [phone] * (ABNORMAL) RENAL FUNCTION PANEL (12/26/2019 3:07 PM CDT) BUN 27(H) 7 - 26 mg/dL 12/26/2019 4:12 PM [facility] Creatinine 1.5(H) 0.6 - 1.2 mg/dL 12/26/2019 4:12 PM [facility] Sodium 143 136 - 145 mmol/L 12/26/2019 4:12 PM [facility] Potassium 5.0(H) 3.5 - 4.5 mmol/L 12/26/2019 4:12 PM [facility] Chloride 105 98 - 107 mmol/L 12/26/2019 4:12 PM [facility] CO2 34(H) 22 - 29 mmol/L 12/26/2019 4:12 PM [facility] Glucose 90 70 - 115 mg/dL 12/26/2019 4:12 PM [facility] Albumin 2.8(L) 3.4 - 5.0 g/dL 12/26/2019 4:12 PM [facility] Calcium 8.6 8.4 - 10.2 mg/dL 12/26/2019 4:12 PM [facility] Phosphorus 3.9 2.3 - 4.7 mg/dL 12/26/2019 4:12 PM [facility] Anion Gap 9 8 - 18 12/26/2019 4:12 PM [facility] BUN/Creatinine Ratio 18 7 - 23 12/26/2019 4:12 PM [facility] Osmolality Calculated 301(H) 270 - 300 mOsm/kg 12/26/2019 4:12 PM [facility] eGFR 49(L) >60 mL/min/1.7 3 m2 12/26/2019 4:12 PM [facility] Blood BLOOD SPECIMEN / Unknown Lab Venipuncture / Unknown 12/26/2019 3:07 PM CDT 12/26/2019 3:54 PM CDT Gerardo Oneal MD LAB - CH EMISTRY ORDERABLES Performing Organization Address City/State/[facility] Co de Phone Number [address] [address], [facility] [phone] documented in this encounter Visit Diagnoses Diagnosis ERIC (acute kidney injury) (HCC)- Primary Acute kidney failure, unspecified CRD (chronic renal disease), stage II Chronic kidney disease, Stage II (mild) Chronic kidney disease (CKD), stage III (moderate) (HCC) Chronic kidney disease, Stage III (moderate) Chronic kidney disease (CKD), stage III (moderate) (HCC) Chronic kidney disease, Stage III (moderate) ERIC (acute kidney injury) (HCC) Acute kidney failure, unspecified documented in this encounter Care Teams Inventory And Pricing Associate Relationship Specialty Start Date End Date Natasha Bates PA-C [address] [place] [address] PCP - General 03/21/19 06/20/23 documented as of this encounter
--- OUTSIDE RECORDS SUMMARY | 2024-05-22 05:42 | XMS_ITS | Encounter Summary ---
Author Organization [facility] Health Address [address] [facility] [place] [address] Care Team Providers Care Senior Clinical Consultant Name Role Phone Natasha Bates PA-C Primary Care Provider + Reason for Visit * Reason Comments Palpitations Encounter Details Date Type Department Care Team (Late st Contact Info) Description 07/24/2020 9:30 AM WARE FINISHER Office Visit [facility] [address] [facility] [address] [place] [address] Berenice Plaza, URGENT CARE TECHNICIAN-CLINICAL SUPERVISOR [address] [facility] [address] [place] [address] Palpitations (Primary Dx); Chronic diastolic congestive heart failure (HCC); MIRELLA (obstructive sleep apnea); CRD (chronic renal disease), stage II; Heart palpitations Social History Tobacco Use Types Packs/Day Years [...] Sign Reading Time Taken Comments Blood Pressure 118/72 07/24/2020 9:27 AM WARE FINISHER Pulse 57 07/24/2020 9:27 AM WARE FINISHER Temperature 36.4 ??C (97.5 ??F) 07/24/2020 9:27 AM CS T Respiratory Rate - - Oxygen Saturation - - Inhaled Oxygen Concentration - - Weight 170.1 kg (375 lb) 07/24/2020 9:27 AM WARE FINISHER Height 185.4 cm (6' 1 ) 07/24/2020 9:27 AM WARE FINISHER Body Mass Index 49.48 07/24/2020 9:27 AM WARE FINISHER documented in this encounter Functional Status Functional [...] * Patient Instructions* Berenice Plaza APRN-CNP - 07/24/2020 10:16 AM WARE FINISHER BP 118/72 Pulse 57 Temp 97.5 ??F (36.4 ??C) (Temporal) Ht 6' 1 (1.854 m) Wt 375 lb (170.1 kg) BMI 49.48 kg/m2 Follow up with Kidney team this week. 14 day holter and follow up as scheduled Dr. Snider 08/07. FINISHER documented in this encounter Progress Notes * Berenice Plaza APRN-CNP - 07/24/2020 9:30 AM CST Assessment and Plan: Problem List Items Addressed This Visit Cardiovascular Congestive heart failure Stable and Euvolemicon Exam. HFpEF. Continue Coreg 25 mg BID and Imdur 30mg daily. No prisca, aldactone or ARB given CKD and Hyperkalemia in the past. Heart palpitations Unclear Etiology, 14 day Holter, BB. Respiratory MIRELLA (obstructive sleep apnea) Compliant with CPAP. Genitourinary CRD (chronic renal disease), stage II Follow up with Nephrology for recs on Hyperkalemia, off all potassium sparing agents. Their team for recs for resuming Valtessa. Other Visit Diagnoses Palpitations - Primary Relevant Orders EKG - Clinic Performed (Completed) Holter Read - 14 Day Chief Complaint: Palpitations. History of Present Illness: Howie Delaney is a 54 year old male with PMH significant for significant for CKD, HTN, Obestiy, HLD,MIRELLA on CPAP, who was last seen in clinic by Dr. Moreno and Dr. Salazar virtually in April 2020 and at the time had just been released from the hospital following a HFpEF exacerbation. He called clinic today with complaints of chest palpations, heart thumps , no syncope. Does have baseline o rthostatic hypotension. Some chest discomfort with the palpations, he has these multiple times a week for several seconds at at time. He called nephrology to review his high potassium and remains offAldactone. Has been on Valtessa in the past. He does has noticed for the past few weeks he has had worsening fatigue as well, no SOB or chest pain, edema, PND or orthopnea. ROS is negative except for stated in the HPI. Past Medical History: Diagnosis Date ??? CKD (chronic kidney disease) ??? HFrEF (heart failure with reduced ejection fraction) ??? HLD (hyperlipidemia) ??? HTN (hypertension) ??? MIRELLA (obstructive sleep apnea) 05/13/2019 PHYSICAL EXAM: BP 118/72 Pulse 57 Temp 97.5 ??F (36.4 ??C) (Temporal) Ht 6' 1 (1.854 m) Wt 375 lb (170.1 kg) BMI 49.48 kg/m2 GENERAL: No acute distress, pleasant, appears stated [...] rigidity, normoactive bowel sounds x 4 EXTREMITIES: No edema, cyanosis or clubbing. Pulses [...] before or after. 30 packet 3 ??? spironolactone (ALDACTONE) 25 MG tablet Take 0.5 (one-half) tablet by mouth once daily 90 tablet 4 ??? zolpidem (AMBIEN) 5 MG tablet Take [...] pressures. No significant valvular abnormalities. CATH/STRESS TESTING: [facility] 11/2019 Pressures: LV: 116/24 mmHg LVEDP: 24 mmHg [...] DOSE: Cumulative AK: 551.53 mGy Cumulative DAP: 71124 mGycm2 ?? DIAGNOSTIC INTERPRETATIONS: 1) Elevated filling pressure with moderate pulmonary venous hypertension (RA 15 mmHg, PAD 30 mmHg, LVEDP 24 mmHg). 2) Normal coronaries ?? RECOMMENDATIONS AFTER DIAGNOSTIC CATHETERIZATION: Medical management for worsening dyspnea to achieve euvolemic status. ?? Hubert Avila MD? Cardiovascular Medicine Fellow [facility] ?? EKG; Sinus Jude 57 FINISHER documented in this encounter Plan of Treatment Not on file documented as of this encounter Procedures Procedure Name Priority Date/Time Associated Diagnosis Comments PROC EKG IN CLINIC Routine 07/24/2020 9:27 AM WARE FINISHER Palpitations documented in this encounter Results * EKG - Clinic Performed (07/24/2020 9:27 AM WARE FINISHER) Berenice ESTRADA ECG ORDERABLES documented in this encounter Visit Diagnoses Diagnosis Palpitations- Primary Chronic diastolic congestive heart failure (HCC) Chronic diastolic heart failure MIRELLA (obstructive sleep apnea) Obstructive sleep apnea (adult) (pediatric) CRD (chronic renal disease), stage II Chronic kidney disease, Stage II (mild) Heart palpitations Palpitations * Assessment & Plan Note - Berenice Plaza APRN-CNP - 07/24/2020 12:58 PM WARE FINISHER Associated Problem(s): Heart palpitations Unclear Etiology, 14 day Holter, BB. FINISHER * Assessment & Plan Note - Berenice Plaza APRN-CNP - 07/24/2020 12:04 PM WARE FINISHER Associated Problem(s): CRD (chronic renal disease), stage II Follow up with Nephrology for recs on Hyperkalemia, off all potassium sparing agents. Their team for recs for resuming Valtessa. FINISHER * Assessment & Plan Note - Berenice Plaza APRN-CNP - 07/24/2020 12:04 PM WARE FINISHER Associated Problem(s): MIRELLA (obstructive sleep apnea) Compliant with CPAP. FINISHER * Assessment & Plan Note - Berenice Plaza APRN-CNP - 07/24/2020 12:02 PM WARE FINISHER Associated Problem(s): Congestive heart failure (HCC) Stable and Euvolemicon Exam. HFpEF. Continue Coreg 25 mg BID and Imdur 30mg daily. No prisca, aldactone or ARB given CKD and Hyperkalemia in the past. FINISHER documented in this encounter Care Teams Senior Clinical Consultant Relationship Specialty Start Date End Date Natasha Bates PA-C [address] [place] [phone] PCP - General 03/21/19 06/20/23 documented as of this encounter
--- OUTSIDE RECORDS SUMMARY | 2024-05-22 05:42 | XMS_ITS | Encounter Summary ---
Author Organization [facility] Health Address [address] [place] [address] Care Team Providers Care Contract Administrative Assistant Name Role Phone Natasha Bates PA-C Primary Care Provider + Reason for Visit * Reason Comments Refill Request Encounter Details Date Type Department Care Team (Late st Contact Info) Description 05/31/2020 Refill [facility] [address] [place] [address] Sunshine Mayo, DO [address] [place] [address] Refill Request Social History Tobacco Use Types [...] as of this encounter Visit Diagnoses Diagnosis Wheezing documented in this encounter Care Teams Contract Administrative Assistant Relationship Specialty Start Date End Date Natasha Bates PA-C [address] [place] [phone] PCP - General 03/21/19 06/20/23 documented as of this encounter
--- OUTSIDE RECORDS SUMMARY | 2024-05-22 05:42 | XMS_ITS | Encounter Summary ---
Author Organization [facility] Health Address [address] [facility] [place] [address] Care Team Providers Care Fish Fryer Name Role Phone Natasha Bates PA-C Primary Care Provider + Encounter Details Date Type Department Care Team (Latest Contact Info) Description 12/12/2019 Travel Social History Tobacco Use Types Packs/Day [...] have Coronavirus / COVID-19? Unable to assess 12/12/2019 4:07 PM CDT documented as of this encounter [...] on filedocumented in this encounter Care Teams Fish Fryer Relationship Specialty Start Date End Date Natasha Bates PA-C [facility] [place] [address] PCP - General 03/21/19 06/20/23 documented as of this encounter
--- OUTSIDE RECORDS SUMMARY | 2024-05-22 05:42 | XMS_ITS | Encounter Summary ---
Author Organization [facility] Health Address [address] [facility] [place] [address] Care Team Providers Care Cut Filer Name Role Phone Natasha Bates PA-C Primary Care Provider + Encounter Details Date Type Department Care Team (Late st Contact Info) Description 12/06/2019 Orders Only [facility] [id number] [place] [address] Muriel Moreno MD [address] [facility] [address] [place] [address] Angina pectoris (HCC) Social History Tobacco Use Types Packs/Day [...] this encounter Visit Diagnoses Diagnosis Angina pectoris (HCC) documented in this encounter Care Teams Cut Filer Relationship Specialty Start Date End Date Natasha Bates PA-C [address] [place] [phone] PCP - General 03/21/19 06/20/23 documented as of this encounter
--- OUTSIDE RECORDS SUMMARY | 2024-05-22 05:42 | XMS_ITS | Encounter Summary ---
Author Organization [facility] Health Address [address] [place] [address] Care Team Providers Care Speaker Mounter Name Role Phone Natasha Bates PA-C Primary Care Provider + Puneet Hughes MD Primary Care Provider [phone] Encounter Details Date Type Department Care Team (Late st Contact Info) Description 02/19/2020 Lab Requisition [facility] [address] [place] [address] Tylor Salazar MD [facility] [address] [facility] [address] [place] [address] Social History Tobacco Use Types Packs/Day Years [...] Diagnosis Comments BASIC METABOLIC PANEL (CALCIUM TOTAL) STAT 02/19/2020 3:32 PM CDT documented in this encounter Results * (ABNORMAL) BASIC METABOLIC PANEL (CALCIUM TOTAL) (02/19/2020 3:32 PM CDT) Glucose 82 70 - 105 mg/dL 02/19/2020 6:00 PM CDT [facility] Sodium 142 136 - 145 mmol/L 02/19/2020 6:00 PM CDT [facility] Potassium 4.9 3.5 - 5.1 mmol/L 02/19/2020 6:00 PM CDT [facility] Chloride 101 98 - 107 mmol/L 02/19/2020 6:00 PM CDT [facility] CO2 30 23 - 31 mmol/L 02/19/2020 6:00 PM CDT [facility] Calcium 9.4 8.4 - 10.4 mg/dL 02/19/2020 6:00 PM CDT [facility] Anion Gap 11 8 - 16 mmol/L 02/19/2020 6:00 PM CDT [facility] BUN 41(H) 8.4 - 25.7 mg/dL 02/19/2020 6:00 PM CDT [facility] Creatinine 1.56(H) 0.72 - 1.25 mg/dL 02/19/2020 6:00 PM CDT [facility] eGFR by MDRD 46(L) >60 mL/min/1.7 3m2 02/19/2020 6:00 PM CDT [facility] eGFR by MDRD 56(L) >60 mL/min/1.7 3m2 02/19/2020 6:00 PM CDT [facility] Blood BLOOD SPECIMEN / Unknown Venipuncture / Unknown 02/19/2020 3:32 PM CDT 02/19/2020 5:36 PM CDT Tylor Salazar MD LAB - CHEMISTRY HERNANDEZ SAL [facility] Organization Address City/State/ZIP Co de Phone Number [facility] [address] [place] [address] documented in this encounter Visit Diagnoses Not on filedocumented in this encounter Additional Health Concerns Infection Onset Date Last Indicated Resolved Time COVID-19 Under Investigation 06/19/2023 06/19/2023 06/19/2023 4:55 PM MEMBER SERVICES COORDINATOR documented as of this encounter Care Teams Speaker Mounter Relationship Specialty Start Date End Date Natasha Bates PA-C [address] [place] [phone] PCP - General 03/21/19 06/20/23 Puneet Hughes MD [address] [place] [phone] PCP - General Internal Medicine 06/21/23 documented as of this encounter
--- OUTSIDE RECORDS SUMMARY | 2024-05-22 05:42 | XMS_ITS | Encounter Summary ---
Author Organization [facility] Health Address [address] [facility] [place] [address] Care Team Providers Care Shroud Line Tier Name Role Phone Natasha Bates PA-C Primary Care Provider + Reason for Visit * Reason Onset Date Comments Follow-up 12/06/2019 Encounter Details Date Type Department Care Team (Late st Contact Info) Description 12/06/2019 Telephone [facility] [address] [facility] [address] [place], [place] [id number] Rajni Webb RN Follow-up Social History Tobacco [...] Encounter - Rajni Webb RN - 12/10/2019 10:28 AM CDT Called and left message for [place] in [facility] Pt in clinic 12/07/[address] Moreno-cath CB Pt awaiting call to schedule R and L cath * Telephone Encounter - Rajni Webb RN - 12/06/2019 12:42 PM CDT Pt in clinic with chest pain Dr Morataya recommended ER Pt declined-cath ordered by Dr Moreno Cath instructions reviewed with pt message left for [place] in [facility] Needs scheduled CB per Dr. Moreno-pt with angina documented in this encounter Plan of Treatment Not on file documented as of this encounter Visit Diagnoses Not on filedocumented in this encounter Care Teams Shroud Line Tier Relationship Specialty Start Date End Date Natasha Bates PA-C [facility] [place] [phone] PCP - General 03/21/19 06/20/23 documented as of this encounter
--- OUTSIDE RECORDS SUMMARY | 2024-05-22 05:42 | XMS_ITS | Encounter Summary ---
Author Organization [facility] Address [address] [facility] [place] [address] Care Team Providers Care Wall Mirror Department Supervisor Name Role Phone Natasha Bates PA-C Primary Care Provider + Reason for Referral * Radiology Services (Routine) - Closed Specialty Diagnoses / Procedures Referred By Malena t Referred To Contact Cardiac Cath Diagnoses Chest pain, unspecified type Procedures CCL CATH RIGHT HEART Tylor Salazar MD [address] [facility] [address] [place] [address] [facility] Cardiac Qualitative Executive Researcher [address] [place] [phone] Referral ID Status Reason Start Date Expiration Date Visits Re quested Visits Authorized [id number] Closed 12/20/2019 12/13/2020 1 1 Reason for Visit * Radiology Services (Routine) - Closed Specialty Diagnoses / Procedures Referred By Contac t Referred To Contact Cardiac Cath Diagnoses Angina pectoris (HCC) Procedures CCL CARDIAC CATH RIGHT AND LEFT Muriel Moreno MD [address] [facility] [address] [place] [address] [facility] Cardiac Qualitative Executive Researcher [facility] [place] [address] Referral ID Status Reason Start Date Expiration Date Visits Re quested Visits Authorized [id number] Closed 12/14/2019 12/05/2020 1 1 Encounter Details Date Type Department Care Team (Late st Contact Info) Description 12/14/2019 7:25 AM CDT - 12/14/2019 11:58 PM CDT Hospital Encounter [facility] Cardiac Qualitative Executive Researcher/EPS [address] [place] [address] Muriel Moreno MD [address] [facility] [address] [place] [address] Carroll Thakur MD [address] [place], [place] [id number] Discharge Disposition: Home or Self Care Social [...] Sign Reading Time Taken Comments Blood Pressure 113/58 12/14/2019 7:51 AM CDT Pulse 68 12/14/2019 7:51 AM CDT Temperature - - Respiratory Rate 18 12/14/2019 7:51 AM CDT Oxygen Saturation 94% 12/14/2019 7:51 AM CDT Inhaled Oxygen Concentration - - Weight 171.5 kg (378 lb) 12/14/2019 7:51 AM CDT Height 185.4 cm (6' 1 ) 12/14/2019 7:51 AM CDT Body Mass Index 49.87 12/14/2019 7:51 AM CDT documented in this encounter Functional [...] this encounter Discharge Instructions * Discharge Instructions* Tylor Salazar MD - 12/14/2019 9:24 AM CDT Increase your Imdur from 30mg once a day (1tablet) to 45mg once a day (1 tablet and a half). Decrease your lasix to 20mg once a day on Tuesday and Tuesday. Do not take any lasix morning. Please return here on 12/20/2019 at 0630. All other medications stay the same. If your chest discomfort worsens, please visit nearest emergency room. documented in this encounter Medications at Time [...] Take 10 mg by mouth once daily 12/20/2019 documented as of this encounter Progress Notes * Letitia Edwards RN - 12/14/2019 9:31 AM CDT Discharge instructions given to patient by Richardson Niño RN. Medication changes discussed with patientby Dr. Salazar. Patient and his daughter escorted to [facility] and discharged home. * Tylor aSlazar MD - 12/14/2019 9:06 AM CDT Patient's creatinine 1.7 (b/l 1.3). Reports improvement with Imdur 30mg qday although still some exertional chest discomfort, not a rest. Will increase Imdur to 45mg qday (SBP 110s), continue Coreg 25mg BID and have patient decrease lasix to 20mg qday two days before LHC/RHC on 12/20/2019 (patient reported becoming severely dyspneic with complete cessation of lasix, even for a few days). On date of admission, if Cr 1.3-1.5, will hydrate patient for three hours and repeat Cr, if still elevated, will likely admit and hydrate further for next day LHC/RHC. Patient voiced understanding. documented in this encounter Procedure Notes * Hubert Avila MD - 12/14/2019 8:01 AM CDT Pre-Sedation Note Howie Delaney is a 54 year old male born on 1965 Unit where the procedure was preformed: Cardiac Catheterization lab H&P I have reviewed this H&P written on 12/14/2019 and there are no significant changes since the time of the exam. Pertinent review of system Cardiac - no chest pain or dyspnea on exertion Resp - no cough, shortness of breath, or wheezing Patient status - alert Allergies No Known Allergies Home Meds No medications prior to admission. Patient Active Problem List: Need for influenza [...] Orthostasis Acute on chronic diastolic heart failure Vitals: 12/14/19 0751 BP: 113/58 Pulse: 68 Resp: 18 SpO2: 94% Weight: (!) 378 lb Height: 6' 1 Status Test none Anesthesis History no past endotracheal intubation no past general anesthesia no past regional anesthesia History of airway problems: none Expected Level: Moderate Sedation Indication: Sedation is required to allow for Left Heart Catheterization and Coronary Angiography. Consent: Risks, [...] Medicine Fellow [facility] documented in this encounter Plan of Treatment Scheduled Orders Name Type Priority Associated Diagnoses Orde r Schedule CCL CATH RIGHT HEART Cardiac Qualitative Executive Researcher Radiant Routine MIRELLA (obstructive sleep apnea) Pulmonary hypertension (HCC) For radiant use only for 1 Occurrences starting 12/14/2019 until 12/14/2019 CCL CARDIAC CATH LEFT Cardiac Qualitative Executive Researcher Radiant Routine Chest pain, unspecified type For radiant use only for 1 Occurrences starting 12/14/2019 until 12/14/2019 documented as of this encounter Procedures Procedure Name Priority Date/Time Associated Diagnosis Comments PT-INR [facility] STAT 12/14/2019 7:45 AM CDT Chest pain, unspecified type CBC W/O DIFFERENTIAL STAT 12/14/2019 7:45 AM CDT Chest pain, unspecified type BASIC METABOLIC PANEL (CALCIUM TOTAL) STAT 12/14/2019 7:45 AM CDT Chest pain, unspecified type documented in this encounter Results * CCL CATH RIGHT HEART (12/20/2019 9:27 AM CDT) Anatomical Region Laterality Modality Chest X-Ray Angiograph y Narrative 12/24/2019 12:12 PM CDT [facility] Cardiac Catheterization Procedure Note Patient: Howie Delaney Age: [age] year old Date of : 1965 Procedure Date: 12/20/19 FELLOW / MOTION GRAPHICS ARTIST: Ernst Babin MD, Hubert Avila MD ATTENDING PHYSICIAN: Nilay Lee MD PREVIOUS STRESS STUDIES WITHIN 6 [...] wires were utilized to obtain: hemodynamics: 5F [place] catheter; selective coronary angiography: 6F TIG [...] evaluation, please review the evaluation forms in [facility]. For details on monitored clinical parameters during the intra-service sedation time, please review the procedure nurse documentation in [facility]. Total sedation administered as follows: 100 [...] DOSE: Cumulative AK: 551.53 mGy Cumulative DAP: 34779 mGycm2 DIAGNOSTIC INTERPRETATIONS: 1) Elevated filling pressure with moderate pulmonary venous hypertension (RA 15 mmHg, PAD 30 mmHg, LVEDP 24 mmHg). 2) Normal coronaries RECOMMENDATIONS AFTER DIAGNOSTIC CATHETERIZATION: ?? Medical management for worsening dyspnea to achieve euvolemic status. Hubert Avila MD? Cardiovascular Medicine Fellow [facility] Cardiovascular Care [facility] I was present for the entirety of the described procedure. Nilay Booth MD Tylor Salazar MD CARDIAC UTILITY AGENT RAD IANT * PT-INR [facility] (12/14/2019 7:45 AM CDT) PT 13.1 12.1 - 14.8 Seconds 12/14/2019 8:30 AM CDT [facility] INR 1.0 See Comment 12/14/2019 8:30 AM T [facility] Comment:The suggested therap eutic range for standard coumadin (warfarin) therapy is an INR of 2.0-3.0. For high-risk patients (Mechanical Mitral Valve Prosthesis, etc.), the suggested prophylactic therapeutic range is an INR of 2.5-3.5. Blood BLOOD SPECIMEN / Unknown Venipuncture / Unknown 12/14/2019 7:45 AM CDT 12/14/2019 8:00 AM CDT Nilay Booth MD LAB - COAGULATION O RDERABLES [address] [address] [phone] * (ABNORMAL) BASIC METABOLIC PANEL (CALCIUM TOTAL) (12/14/2019 7:45 AM CDT) BUN 37(H) 7 - 26 mg/dL 12/14/2019 8:22 AM CDT [facility] Creatinine 1.7(H) 0.6 - 1.2 mg/dL 12/14/2019 8:22 AM CDT [facility] Sodium 141 136 - 145 mmol/L 12/14/2019 8:22 AM CDT [facility] Potassium 4.5 3.5 - 4.5 mmol/L 12/14/2019 8:22 AM T [facility] Chloride 105 98 - 107 mmol/L 12/14/2019 8:22 AM [facility] CO2 28 22 - 29 mmol/L 12/14/2019 8:22 AM [facility] Glucose 103 70 - 115 mg/dL 12/14/2019 8:22 AM [facility] Calcium 8.7 8.4 - 10.2 mg/dL 12/14/2019 8:22 AM [facility] Anion Gap 13 8 - 18 12/14/2019 8:22 AM [facility] BUN/Creatinine Ratio 22 7 - 23 12/14/2019 8:22 AM [facility] Osmolality Calculated 301(H) 270 - 300 mOsm/kg 12/14/2019 8:22 AM [facility] eGFR 42(L) >60 mL/min/1.7 3 m2 12/14/2019 8:22 AM [facility] Blood BLOOD SPECIMEN / Unknown Venipuncture / Unknown 12/14/2019 7:45 AM CDT 12/14/2019 8:00 AM CDT Nilay Booth MD LAB - CHEMISTRY ORD ERABLES [address] [address], [facility] [phone] * (ABNORMAL) CBC W/O DIFFERENTIAL (12/14/2019 7:45 AM CDT) WBC 11.3(H) 3.5 - 10.5 10? 3 /uL 12/14/2019 8:08 AM [facility] RBC 4.25(L) 4.30 - 5.70 10? 6 /uL 12/14/2019 8:08 AM [facility] Hemoglobin 12.1(L) 13.5 - 17.5 g/dL 12/14/2019 8:08 AM [facility] Hematocrit 39.4 39.0 - 50.0 % 12/14/2019 8:08 AM [facility] MCV 92.7 81.0 - 97.0 fL 12/14/2019 8:08 AM [facility] MCH 28.5 28.0 - 34.0 pg 12/14/2019 8:08 AM [facility] MCHC 30.7(L) 32.0 - 36.0 g/dL 12/14/2019 8:08 AM [facility] Platelet Count 233 150 - 400 10? 3 /uL 12/14/2019 8:08 AM [facility] RDW-SD 52.0(H) 36.0 - 50.0 fL 12/14/2019 8:08 AM [facility] RDW-CV 15.3(H) 11.2 - 14.8 % 12/14/2019 8:08 AM [facility] MPV 12.1 9.3 - 12.8 fL 12/14/2019 8:08 AM [facility] nRBC Absolute 0.00 0 10? 3 /uL 12/14/2019 8:08 AM [facility] nRBC Auto 0.0 0 /100 WBC 12/14/2019 8:08 AM [facility] Blood BLOOD SPECIMEN / Unknown Venipuncture / Unknown 12/14/2019 7:45 AM CDT 12/14/2019 8:00 AM [facility] Nilay Booth MD LAB - HEMATOLOGY OR DERABLES Performing Organization Address City/State/[facility] Co de Phone Number [address] [address] [phone] documented in this encounter Visit Diagnoses Diagnosis Chest pain, unspecified type- Primary MIRELLA (obstructive sleep apnea) Obstructive sleep apnea (adult) (pediatric) Pulmonary hypertension (HCC) Other chronic pulmonary heart diseases Chest pain, unspecified type documented in this encounter Care Teams Wall Mirror Department Supervisor Relationship Specialty Start Date End Date Natasha Bates PA-C [address] [place] [address] PCP - General 03/21/19 06/20/23 documented as of this encounter
--- OUTSIDE RECORDS SUMMARY | 2024-05-22 05:42 | XMS_ITS | Encounter Summary ---
Author Organization [facility] Health Address [address] [place] [address] Care Team Providers Care Otr Owner Operator Truck Driver Name Role Phone Natasha Bates PA-C Primary Care Provider + Reason for Visit * Reason Onset Date Comments Chest Pain 12/05/2019 Encounter Details Date Type Department Care Team (Late st Contact Info) Description 12/05/2019 Telephone [facility] [address] [facility] [address] [place], [place] [phone] Rajni Webb RN Chest Pain Social History Tobacco Use Types Packs/Day Years [...] Telephone Encounter - Rajni Webb RN - 12/05/2019 1:43 PM CDT Called pt after reviewing schedule for tomorrow am -pt added on to Dr Moreno'a schedule for tomorrow. Pt states he called call center for appt because he was having chest pain Pt is aware that for chest pain, accompanied by SOB and/or n/v, lightheadedness he needs to be evaluated in ER. Pt states he has appt with pulmonary this afternoon and understands in sxs increase he needs to go to ED Pt will call for any change in status. documented in this encounter Plan of Treatment Not on file documented as of this encounter Visit Diagnoses Not on filedocumented in this encounter Care Teams Otr Owner Operator Truck Driver Relationship Specialty Start Date End Date Natasha Bates PA-C [address] [place] [address] PCP - General 03/21/19 06/20/23 documented as of this encounter
--- OUTSIDE RECORDS SUMMARY | 2024-05-22 05:42 | XMS_ITS | Encounter Summary ---
Author Organization [facility] Health Address [address] [place] [address] Care Team Providers Care Wafer Fabrication Operator Name Role Phone Natasha Bates PA-C Primary Care Provider + Reason for Visit * Reason Comments Follow-up Encounter Details Date Type Department Care Team (Late st Contact Info) Description 05/05/2020 1:30 PM TYPEWRITER REPAIRER Video Visit [facility] Pulmonary, Critical Care and Sleep Medicine [address] [facility] [place] [address] Jesus Welch MD [address] [place] [address] Dyspnea on exertion ; Pulmonary hypertension (HCC); MIRELLA (obstructive sleep apnea); Class 3 severe obesity with serious comorbidity [...] COVID-19? No / Unsure 04/30/2020 1:48 PM TYPEWRITER REPAIRER documented as of this encounter Functional Status [...] of this encounter Progress Notes * Jesus Welhc MD - 05/05/2020 1:39 PM CST Images from the original note were not included. PULMONARY CLINIC TELEMEDICINE NOTE Today's visit was conducted virtually due to [...] date of encounter is: 25 minutes with 20 minutes spent in medical discussion HPI: Howie Delaney is a 54 year old male with pmhx of CKD, HFpEF, HLD, MIRELLA recently started on CPAP and oxygen PRN, morbid obesity presents to Pulmonary Clinic for video visit for follow up of his pulmonary testing. Shortness of breath on minimal exertion, can [...] once daily, Disp: 90 tablet, Rfl: 4 Cannot display prior to admission medications because the patient has not been admitted in this contact. Immunization History Administered Date(s) Administered ??? FLU VACCINE QUAD IIV4 SPLIT PF IM 05/11/2019 ??? PNEUMOCOCCAL PPSV23 03/31/2020 Immunizations: Uptodate with influenza, will schedule Pneumovax next visit PE: There were no vitals filed for this visit. Estimated body mass index is 50.27 kg/m?? as calculated from the following: Height as of 03/18/20: 6' 1 (1.854 m). Weight as of 03/18/20: 381 lb (172.8 kg). Gen: Morbidly obese HEENT: NC/AT, EOMI. LABS: Reviewed Recent Labs Component Name 02/04/20 [...] 2337 11/03/19 2337 10/30/19 1350 10/30/19 1350 06/11/19 2229 06/11/19 222 SODIUM 142 142 146* - - - [...] ventricle filling pressures. No significant valvular abnormalities. Pulmonary Function test done on 04/30/2020 IMPRESSION: 1. ??Moderate Restrictive Ventilatory Limitation - low ERV is suggestive of extraparenchymal restriction. 2. No bronchodilator response, however this does not preclude the use of bronchodilators 3. There is no previous study available for comparison Six minute walk test done on 04/30/2020 IMPRESSION: 1. Total 6 minute walk distance is 207 meters, which is below the lower limit of normal of 348 meters for this patient. 2. There is no available study for comparison. Oxygen desaturation study done on 04/30/2020 At the above level of activity the patient's oxygen saturation remained 97 % and above on room air. We can't comment on the need for supplemental oxygen as the test is inadequate. ASSESSMENT: # Dyspnea on exertion likely 2/2 morbid obesity, Heart failure with preserved EF with volume overload # MIRELLA on CPAP with bleed in oxygen 2L at night # Chronic hypoxic respiratory failure, uses oxygen as needed # Pulmonary hypertension likely related to Group II and Group III # Morbid obesity and following up with Bariatric surgery PLAN: Therapeutic: - To complete diagnostic work up - Take albuterol inhaler Q6H prn for wheezing - Use 2L oxygen with exertion and with CPAP until desaturation study is resulted - follow up with cardiology and nephrology to optimize diuretic regimen and to keep him euvolemic Surgical risk Evaluation: - ARISCAT score of 41 places him at intermediate risk for post-operative complication - Consider extubation to CPAP after the surgery and encourage patient to bring his CPAP to the hospital - Consider optimization of volume status prior to the surgery- kindly follow cardiology recommedation No further follow up needed in Pulmonary clinic. Discussed with Dr. Lam (Pulmonary attending) Jesus Welch MD Pulmonary Disease and Critical Care Medicine- PGY4 12/31/2019 1:41 PM WRITER REPAIRER Associated attestation - Andrew Lam MD - 05/05/2020 4:07 PM TYPEWRITER REPAIRER I have spoken with the patient (for approximately 5 mins) and discussed the patient with the fellowand I agree with the the findings and plan of care/recommendations as documented by the fellow. Date of service: 05/05/2020 Andrew Lam M.D. Supervisor In Circuit Testing of Internal Medicine Division of Pulmonary, Critical Care and Sleep Medicine [facility] documented in this encounter Plan of Treatment Not on file documented as of this encounter Visit Diagnoses Diagnosis Dyspnea on exertion- Primary Other dyspnea and respiratory abnormality Pulmonary hypertension (HCC) Other chronic pulmonary heart diseases MIRELLA (obstructive sleep apnea) Obstructive sleep apnea (adult) (pediatric) Class 3 severe obesity with serious comorbidity and body mass index (BMI) of 45.0 to 49.9 in adult, unspecified obesity type (HCC) documented in this encounter Care Teams Wafer Fabrication Operator Relationship Specialty Start Date End Date Natasha Bates PA-C [facility] [place] [address] PCP - General 03/21/19 06/20/23 documented as of this encounter
--- OUTSIDE RECORDS SUMMARY | 2024-05-22 05:43 | XMS_ITS | Encounter Summary ---
Author Organization [facility] Address [address] [facility] [place] [address] Care Team Providers Care Hebrew Cantor Name Role Phone Natasha Bates PA-C Primary Care Provider + Reason for Visit * Reason Comments Follow-up Encounter Details Date Type Department Care Team (Late st Contact Info) Description 04/13/2019 Telephone [facility] - Nephrology [address] [place] [phone] Letitia Vidal, RN Follow-up Social History Tobacco Use Types Packs/Day Years Used Date Smoking Tobacco: Never Assessed Sex and Gender Information Value Date Recorded Sex Assigned at Not on file Gender Identity Not on file Sexual Orientation Not on file documented as of this encounter Progress Notes * Letitia Vidal, RN - 04/13/2019 12:25 PM CST Spoke with patient, confirmed appointment with Dr. Nelson 04/18 at 110 pm. UNT EXECUTIVE TRAINEE documented in this encounter Plan of Treatment Not on file documented as of this encounter Visit Diagnoses Not on filedocumented in this encounter Care Teams Hebrew Cantor Relationship Specialty Start Date End Date Natasha Bates PA-C [address] [place] [address] PCP - General 03/21/19 06/20/23 documented as of this encounter
--- OUTSIDE RECORDS SUMMARY | 2024-05-22 05:43 | XMS_ITS | Encounter Summary ---
Author Organization [facility] Health Address [address] [facility] [place] [address] Care Team Providers Care Medical Program Specialist Name Role Phone Natasha Bates PA-C Primary Care Provider + Encounter Details Date Type Department Care Team (Late st Contact Info) Description 04/18/2019 Orders Only [facility] - Nephrology [address] [place] [address], [place] [address] Gerardo Zavala MD [address] [place] [address] [place] [phone] Hyperpotassemia ; Kidney dysfunction Social History Tobacco Use Types Packs/Day Years [...] on file documented as of this encounter Plan of Treatment Not on file documented as of this encounter Procedures Procedure Name Priority Date/Time Associated Diagnosis Comments BASIC METABOLIC PANEL (CALCIUM TOTAL) Routine 07/05/2019 12:31 PM COLLAR TURNER Hyperpotassemia Kidney dysfunction documented in this encounter Results * (ABNORMAL) BASIC METABOLIC PANEL (CALCIUM TOTAL) (07/05/2019 12:31 PM COLLAR TURNER) Glucose 92 65 - 99 mg/dL [facility] INSURANCE BILL BUN 26(H) 6 - 24 mg/dL [facility] INSURANCE BILL Creatinine 1.28(H) 0.76 - 1.27 mg/dL [facility] INSURANCE BILL eGFR by MDRD 63 >59 mL/min/1.7 3 [facility] INSURANCE BILL eGFR by MDRD 73 >59 mL/min/1.7 3 [facility] INSURANCE BILL BUN/Creatinine Ratio 20 9 - 20 [facility] INSURANCE BILL Sodium 143 134 - 144 mmol/L [facility] INSURANCE BILL Potassium 5.8(H) 3.5 - 5.2 mmol/L [facility] INSURANCE BILL Chloride 103 96 - 106 mmol/L [facility] INSURANCE BILL CO2 28 20 - 29 mmol/L [facility] INSURANCE BILL Calcium 9.6 8.7 - 10.2 mg/dL [facility] INSURANCE BILL Comment:FASTING Blood BLOOD SPECIMEN / Unknown 07/05/2019 12:31 PM COLLAR TURNER 07/05/2019 Narrative Resulting Agency Comment Lab Testing performed at: [facility] [address] ??[facility] [phone] Gerardo Oneal MD LAB - CH EMISTRY ORDERABLES [facility] INSURANCE BILL [address] [place] [address] documented in this encounter Visit Diagnoses Diagnosis Hyperpotassemia- Primary Kidney dysfunction Unspecified disorder of kidney and ureter documented in this encounter Care Teams Medical Program Specialist Relationship Specialty Start Date End Date Natasha Bates PA-C [address] [place] [phone] PCP - General 03/21/19 06/20/23 documented as of this encounter
--- OUTSIDE RECORDS SUMMARY | 2024-05-22 05:43 | XMS_ITS | Encounter Summary ---
Author Organization [facility] Address [address] [facility] [place] [address] Care Team Providers Care Mushroom Farmer Name Role Phone Natasha Bates PA-C Primary Care Provider + Reason for Visit * Reason Comments Refill Request [email or web address] Encounter Details Date Type Department Care Team (Late st Contact Info) Description 05/21/2019 Refill [facility] - Nephrology [address] [place] [address], [place] [address] Gerardo Zavala MD [address] [place] [address] [place] [phone] Refill Request ([email or web address]) Social History Tobacco Use Types Packs/Day Years [...] on filedocumented in this encounter Care Teams Mushroom Farmer Relationship Specialty Start Date End Date Natasha Bates PA-C [address] [place] [address] PCP - General 03/21/19 06/20/23 documented as of this encounter
--- OUTSIDE RECORDS SUMMARY | 2024-05-22 05:43 | XMS_ITS | Encounter Summary ---
Author Organization [facility] Health Address [address] [place] [address] Care Team Providers Care Assemblies And Installations Inspector Name Role Phone Natasha Bates PA-C Primary Care Provider + Reason for Visit * Auth/Cert Specialty Diagnoses / Procedures Referred By Malena sagastume Referred To Contact Diagnoses Near Syncope Referral ID Status Reason Start Date Expiration Date Visits Re quested Visits Authorized [id number] 1 1 Encounter Details Date Type Department Care Team (Latest Contact Info) Description 11/03/2019 10:00 PM CDT - 11/07/2019 11:22 AM CDT Hospital Encounter [facility] [address] [address] Kary Sheikh MD [address] [place] [id number] Camilo William MD [address] [place] [phone] Gemma Heart MD [address] [place] [id number] Coleman Cancino MD [address] [place] [id number] Internal Medicine Discharge Disposition: Home or Self [...] Sign Reading Time Taken Comments Blood Pressure 111/62 11/07/2019 8:32 AM CDT Pulse 63 11/07/2019 8:32 AM CDT Temperature 36.4 ??C (97.5 ??F) 11/07/2019 8:32 AM CD T Respiratory Rate 18 11/07/2019 5:41 AM CDT Oxygen Saturation 97% 11/07/2019 8:32 AM CDT Inhaled Oxygen Concentration - - Weight 164.5 kg (362 lb 11.2 oz) 11/07/2019 6:11 AM CDT Height 185.4 cm (6' 1 ) 11/03/2019 11:0 9 PM CDT Body Mass Index 47.85 11/03/2019 11:09 PM CDT documented in this encounter Functional [...] 11/06/2019 documented as of this encounter Discharge Summaries * Coleman Cancino MD - 11/07/2019 9:43 AM CDT Hospital Discharge Summary Patient ID: Sandy Carr [id number] 53 year old 1965 Admit date: 11/03/2019 Discharge date: 11/07/2019 Admitting Physician: Kary Sheikh MD Discharge Physician: Coleman Cancino MD Present on Admission: ??? Near syncope ??? Essential hypertension ??? LVH (left ventricular hypertrophy) due to hypertensive disease, with heart failure ??? MIRELLA (obstructive sleep apnea) ??? Chronic right heart failure ??? Chest pain ??? Acute on chronic diastolic heart failure Discharge Diagnoses: Acute on chronic diastolic heart failure, pulmonary hypertension, obstructive sleep apnea, presyncope Admission Condition: poor Discharged Condition: good Indication for Admission: presyncope Hospital Course: Sandy Carr is a 53 year old male with past medical history of diastolic heart failure and sleep apnea who presented with presyncope. He stated that he felt lightheaded and had R sided chest pain while attempting ambulate about his house. He reported that prior to presentation he had drank 3-4 beers which was unusual for him. The etiology for his presyncope was unclear initially. Consideration wa raised for orthostasis given his presumed dehydration in the setting of his alcohol intake and numerous antihypertensive and diuretic medications he takes at his baseline. - He was placed on telemetry that revealed no significant abnormalities. - He had undergone echocardiogram and stress test May which revealed no significant abnormalities. No indication to repeat the studies at this time. - EKG and troponin were obtained and found to be unremarkable. - No signs of PE on CT PE. - CT head obtained and without abnormalities. Ultimately it was felt that his presentation was secondary to dehydration as noted above, likely exacerbated by worsening of his diastolic heart failure and pulmonary hypertension. His case was discussed with the specialty molder patient relations representative on November 05 who felt that he may benefit from outpatient evaluation as previously scheduled. He was evaluated for resting and ambulatory hypoxia which was not noted. He remained asymptomatic throughout the remainder of his hospitalization. He was felt to be medically stable and appropriate for discharge on November 06. A Holter monitor was ordered and would be provided to him shortly after discharge. Of note he reports recurrent hematuria at time his presentation. He has history of TURP an artificial urethral sphincter. His case was discussed with Urology who recommended continued follow-up as previously scheduled with his established outpatient providers. Consults: Urology Pending Labs and Studies: None Discharge Communication: Patient's hospital course was conveyed via discharge summary completed at the time of discharge. Significant Diagnostic Studies: CBC: Recent Labs Lab Units 11/07/19 0413 11/06/19 0559 11/05/19 0436 WBC 10??3/uL 8.8 10.3 10.8* RBC 10??6/uL 4.26* 4.18* 4.12* HGB g/dL 12.1* 12.0* 11.9* HCT % 39.0 38.7* 39.0 BMP: Recent Labs Lab Units 11/07/19 0413 11/06/19 0559 11/05/19 0436 NA mmol/L 141 144 144 CL mmol/L 106 107 107 CO2 mmol/L 30* 30* 30* BUN mg/dL 17 18 22 CREATININE mg/dL 1.4* 1.3* 1.3* CALCIUM mg/dL 8.3* 8.5 8.5 Magnesium: No results for input(s): MG in the last 168 hours. Phosphorus: Recent Labs Lab Units 11/06/19 0559 11/03/19 2337 PHOS mg/dL 3.1 3.9 Coagulation: Recent Labs Lab Units 11/05/19 0436 11/03/19 2337 PT Seconds 13.6 13.4 INR 1.1 1.1 Endocrine: Recent Labs Lab Units 11/03/19 2337 TSH uIU/mL 1.196 LFTs: Recent Labs Lab Units 11/06/19 0559 11/03/19 2337 AST Units/L -- 18 ALT Units/L -- 15 TBILI mg/dL -- 0.5 ALB g/dL 2.5* 2.7* Ct Head Wo Contrast Result Date: 11/06/2019 IMPRESSION: No acute intracranial hemorrhage, midline shift, or significant mass effect. Dictated by Veronique Sorto MD (oral and maxillofacial surgery resident). IDr. RED have personally reviewed and interpreted this examination/study. This report was electronically signed by RED FRIED on 11/06/2019 11:[address] Angio Chest Pulm Embolism Result Date: 11/05/2019 IMPRESSION: 1. No evidence of central pulmonary embolism. Evaluation of segmental and subsegmental pulmonary arteries is degraded by suboptimal contrast opacification. 2. Mild air trapping in the bilateral lungs may represent sequelae of reactive airways disease such as asthma. 3. Pulmonary hypertension. Dictated by Lj Womack MD (oral and maxillofacial surgery resident). Dr. ISELA Resendiz M.D. have personallyreviewed and interpreted this examination/study. This report was electronically signed by ISELA CONNELL M.D. on 11/05/2019 1:45 PM . Discharge Exam: Blood pressure 111/62, pulse 63, temperature 97.5 ??F (36.4 ??C), temperature source Axillary, resp. rate 18, height 1.854 m (6' 1 ), weight (!) 164.5 kg (362 lb 11.2 oz), SpO2 97 %. GEN:??NAD. RESP: Clear to auscultation bilaterally. No wheezing or??crackles noted. CARDIAC: Regular rate and rhythm. No murmurs, rubs, or gallops noted. GI: Abdomen soft, non tender, and non-distended. Bowel sounds noted. NEURO:??Alert and interactive Disposition: Home Patient Instructions: Medication List START taking these medications acetaminophen 325 MG tablet Commonly known as: TYLENOL Take 2 tablets by mouth every 6 hours as needed Maximum allowable Acetaminophen amount = 4 Grams (4000 mg) / 24 hours. CHANGE how you take these medications furosemide 20 MG tablet Commonly known as: LASIX Take 1 tablet by mouth once daily What changed: when to take this CONTINUE taking these medications allopurinol 100 MG tablet Commonly known as: ZYLOPRIM atorvastatin 20 MG tablet Commonly known as: LIPITOR Biotin 5 MG busPIRone 5 MG tablet Commonly known as: BUSPAR gabapentin 300 MG capsule Commonly known as: NEURONTIN STOP taking these medications amLODIPine 5 MG tablet Commonly known as: NORVASC carvedilol 25 MG tablet Commonly known as: COREG isosorbide mononitrate CR 24hr 30 MG tablet Commonly known as: IMDUR patiromer 8.4 g packet Commonly known as: VELTASSA Where to Get Your Medications You can get these medications from any pharmacy You don't need a prescription for these medications ?? acetaminophen 325 MG tablet Information about where to get these medications is not yet available Ask your nurse or doctor about these medications ?? furosemide 20 MG tablet Discharge Instructions Please contact your primary care provider or go to emergency room for worsening chest pain, worsening trouble breathing, feeling your heart skipping beats, or if you have episodes where you feel you may pass out or if you do pass out. Signed: Coleman Cancino MD 11/07/2019 Time spent on discharge: 30 minutes. Time was spent on preparation of discharge records, prescriptions, counseling patient, working withsocial work and nursing. documented in this encounter Discharge Instructions * Discharge Instructions* Coleman Cancino MD - 11/07/2019 9:43 AM CDT Please contact your primary care provider or go to emergency room for worsening chest pain, worsening trouble breathing, feeling your heart skipping beats, or if you have episodes where you feel you may pass out or if you do pass out. documented in this encounter Medications at Time [...] mg by mouth 2 times daily 01/29/2021 atorvastatin (LIPITOR) 20 MG tablet Take 40 [...] mg by mouth 3 times daily 01/29/2021 documented as of this encounter Progress Notes * Calos Tinoco MSW - 11/07/2019 11:22 AM CDT 11/12/19 1432 Follow up appointment/arrangements made Physician Follow Up Appointment(s) Made No Appointment(s) made with the following physician providers PCP Follow up date with PCP 11/13/19 Follow up time with PCP 0815 Reason why no appointment was made with physician Appointment already made Transition Fire Protection Engineer (TCC) care management screening/scheduling request: TCC providing assistance to and coverage for discharge wire turning machine operator (Edd Bennett) and received request from Dr. Cancino re: Patient admitted for Acute on chronic diastolic heart failure and needs follow-up with his PCP (Natasha Bates PA-C) within 1-2 weeks of discharge. TCC confirmed Patient already had an appointment scheduled prior to discharge with [facility] within 2 days on 11/09/2019 at 10:30 AM with LITHOGRAPHERS PRINTER Berenice Plaza via Video. TCC completed outreach call today (2019) with Patient to inquire about scheduling PCP appointment. Patient informed this designer/writer that he is already scheduled to see his PCP (aNtasha Bates PA-C) tomorrow (11/13/2019) at 8:15 AM. Patient inquired how he could obtain some outpatient test results from Cardiology with [facility]. TCC encouraged Patient to contact clinic directly to inquire whether records can be faxed to his requesting Surgical Nurse and/or to have his Surgical Nurse or PCP request the records via [facility] Everywhere. Patient verbalized understanding and thanked [facility] for the call. No further scheduling needs indicated. Discharge Date: 11/07/2019 Discharge Disposition: Home Or Self Care Discharge Patient Class/Status: Inpatient Patient's current BNA score is: 6 Screenings: Social Support Domain Score: not applicable (BNA < 10) Complex Needs Assessment Score: not applicable (BNA < 10) Care Management: BNA/LEAD CASTER HELPER < 10. 30 day telephonic care management post discharge from hospital transitional care team is not indicated. No further f/u needs are indicated for this TCC. Case Closed. Future Appointments Thursday November 21, 2019 2:00 PM Appointment with Gerardo Zavala at [facility] 308 ([phone]) [address] [facility] [address] [facility] [address] February 2:40 PM Appointment with Muriel Moreno at [facility] ([phone]) [address] [address] April 11:30 AM Appointment with Tylor Salazar at [facility] ([phone]) [address] [place] [id number] As directed Cardiac Services: MONITOR - HOLTER Contact Information for Follow-Up Providers Natasha Bates PA-C Specialty: Physician Oven Technician Relationship: PCP - General JAKOBGustabo Shrestha (SQL DATA ARCHITECT) [address] [place] [phone] Follow-up on 11/13/2019 at 8:15 AM with your PCP. Our records show your Primary Care Provider (PCP) is Natasha Bates PA-C. Follow Up Instructions: Follow-up in 1-2 weeks Call Duration: 3 minutes SHIRIN Kuo, CAR CARDER Transition Fire Protection Engineer Office: [phone] 2019 * Lakesha Galindo RN - 11/07/2019 10:39 AM CDT Mr Carr received discharge orders. He stated understanding of orders, medicine changes and follow up, Iv was removed. He is waiting for his ride. * Lakesha Galindo RN - 11/07/2019 10:22 AM CDT Left message with Edd Bennett for follow up appointment. * Lakesha Galindo RN - 11/07/2019 9:30 AM CDT Problem: Fall Risk Goal: Patient will remain free of falls Outcome: Ongoing Problem: Hemodynamic Status/Cardiac Output Goal: Patient has stable vital signs and fluid balance Outcome: Ongoing Problem: Fall Risk Goal: Fall risk and fall related injury risk are minimized Outcome: Ongoing * Coleman Cancino MD - 11/06/2019 12:08 PM CDT GENERAL INTERNAL MEDICINE Progress note 11/06/2019 12:09 PM Admit Date: 11/03/2019 Subjective: Mr. Carr reports that he noted a few episodes of dyspnea overnight. He reports no associated anginaor palpitations. He does not report any recurrence of his pre-syncopal symptoms. He does not endorse any new concerns at this time: no fevers, chills, nausea, or vomiting. No acute events reported overnight per staff. Medications: MAR reviewed Physical Examination: BP 114/57 Pulse 60 Temp 97.5 ??F (36.4 ??C) (Oral) Resp 18 Ht 1.854 m (6' 1 ) Wt 166.3 kg (366 lb 9.6 oz) SpO2 97% BMI 48.37 kg/m2 GEN: NAD, resting in bed. RESP: Clear to auscultation bilaterally. No wheezing or crackles noted. CARDIAC: Regular rate and rhythm. No murmurs, rubs, or gallops noted. GI: Abdomen soft, non tender, and non-distended. Bowel sounds noted. NEURO: Alert and interactive Labs: Relevant labs reviewed, discussed below Radiology: Relevant imaging reviewed, discussed below Assessment: Sandy Carr is a 53 year old male who presented with Dyspnea with exertion / presyncopal symptoms Plan: # Presyncope # Dyspnea on exertion # Heart failure with preserved ejection fraction at # Pulmonary hypertension - Etiology for his symptoms remains unclear. - EKG and troponin obtained at presentation were unremarkable. COVID-19 negative. D-dimer positive with CT PE without signs of pulmonary embolism. No abnormalities noted on telemetry overnight. - CT PE was suggestive of pulmonary hypertension which appears to be new compared to echocardiogramobtained in May,. We would expect Mr. Carr to have displayed an ambulatory oxygen requirement if his symptoms were secondary to hypoxia from his pulmonary hypertension, There were no signs ambulatory hypoxia when he was evaluated physical therapy - We will discuss his case with cardiology as he may benefit from Holter monitoring and further evaluation as an outpatient. - Should he remain asymptomatic during other 24 hr period of observation likely be stable appropriate for discharge on . # Hematuria # History of TURP, artificial urethral sphincter - Hematuria at presentation appears to have improved. - His case was discussed with Urology who recommended that he continue to follow-up with his outpatient urology team. - EMR review of neruology note that he had previously been diagosed with a a urinary tract infection and his outpatient urologist recommended treatment with Macrobid. Mr. Carr did not pick pulling machine operator this prescription. We will not reinitiate this treatment as Mr. Ndiaye appears to be asymptomatic and his UA presentation was not suggestive of a urinary tract infection. # Chronic medical conditions - Hypertension: Holding home amlodipine, carvedilol, isosorbide, and furosemide to concern for S possibly relating to his presyncopal symptoms. Will resume his able. - Hyperlipidemia : Continue home atorvastatin - CKD stage 3: Creatinine baseline. Continue home valtessa - Obstructive sleep apnea: Continue CPAP with 2 L supplemental oxygen q.h.s. - Depression: Continue home buspirone DVT PPx: SCDs, pharmacologic prophylaxis held due to hematuria. Coleman Cancino MD General Internal Medicine 11/06/2019 12:09 PM * Meg Dudley RN - 11/05/2019 9:09 PM CDT Asked RR nurse and MD to eval pt as pt reports difficulty with word choice, slight weakness noted to LUE. Oriented to 4. Tongue midline and can easily perform side to side motion. Clenches teeth whenasked to smile, very difficult to assess as symptoms seem intermittent. Bedside eval by MD at RR nurse [phone], pt to head CT for eval. * Becky Caruso OT - 11/05/2019 1:08 PM CDT [facility] Department of Physical Medicine & Rehabilitation Progress Note Patient: Sandy Carr [facility] Record Number: [id number] Date of : 1965 Age: [age] year old 11/05/19 1300 Evaluation Status Initial evaluation done Yes (11/04 independent) Per PT, pt is independent with ADLs and functional transfers and has no skilled OT needs at this time. D/C Occupational Therapy. Becky Caruso OT 11/05/2019 1:09 PM * Gemma Heart MD - 11/05/2019 10:22 AM CDT GENERAL INTERNAL MEDICINE Progress note 11/05/2019 10:22 AM Admit Date: 11/03/2019 Subjective: Patient was seen and examined at bedside. He is complaining of hematuria. He denies chest pain, shortness of breath, abdominal pain, nausea vomiting. No acute event overnight. Medications:: Current Facility-Administered Medications Medication ??? 0.9% NaCl injection 3 mL And ??? 0.9% NaCl injection 1-10 mL ??? acetaminophen (TYLENOL) tablet 650 mg ??? allopurinol (ZYLOPRIM) tablet 100 mg ??? atorvastatin (LIPITOR) tablet 20 mg ??? busPIRone (BUSPAR) tablet 10 mg ??? docusate sodium (COLACE) capsule 100 mg ??? famotidine (PEPCID) tablet 20 mg ??? gabapentin (NEURONTIN) capsule 300 mg ??? ondansetron (ZOFRAN) injection 4 mg ??? polyethylene glycol 3350 (MIRALAX) packet 17 g Physical Examination: BP 116/61 Pulse 65 Temp 97.8 ??F (36.6 ??C) (Oral) Resp 20 Ht 1.854 m (6' 1 ) Wt 166.4 kg (366 lb 12.8 oz) SpO2 95% BMI 48.39 kg/m2 GEN: Alert and oriented in NAD HEENT: NCAT, EOMI, MMM RESP: Clear to auscultation bilaterally CARDIO: Regular rate and rhythm, Nl S1 and S2 No gallops. GI: Abdomen soft and non tender, non-distended, +BS, no organomegaly EXT: No edema. NEURO: No focal deficits PSYCH: A+Ox3 SKIN: Warm and dry, no rashes or lesions Labs: CBC: Recent Labs Lab Units 11/05/1943511/03/19 2337 WBC 10??3/uL 10.8* 12.4* RBC 10??6/uL 4.12* 4.15* HGB g/dL 11.9* 12.1* HCT % 39.0 38.5* BMP: Recent Labs Lab Units 11/05/19 0436 11/03/19 2337 10/30/19 1351 NA mmol/L 144 146* -- CL mmol/L 107 107 -- CO2 mmol/L 30* 30* 29 BUN mg/dL 22 31* 26* CREATININE mg/dL 1.3* 1.4* 1.43* CALCIUM mg/dL 8.5 8.9 9.4 Magnesium: No results for input(s): MG in the last 168 hours. Phosphorus: Recent Labs Lab Units 11/03/19 2337 10/30/19 1350 PHOS mg/dL 3.9 3.5 Coagulation: Recent Labs Lab Units 11/05/19 0436 11/03/19 2337 PT Seconds 13.6 13.4 INR 1.1 1.1 Endocrine: Recent Labs Lab Units 11/03/19 2337 TSH uIU/mL 1.196 LFTs: Recent Labs Lab Units 11/03/19 2337 AST Units/L 18 ALT Units/L 15 TBILI mg/dL 0.5 ALB g/dL 2.7* Radiology: No results found. Microbiology Results (Displays last 21 days for this encounter ONLY) Procedure Component Value - Date/Time CULTURE URINE [[id number]] (Normal) Collected: 11/04/19 0055 Lab Status: Final result Specimen: Urine Clean Catch Updated: 11/05/19 0724 Culture Urine No growth (<100 CFU/mL) SARS-COV-2 (COVID-19) IN HOUSE [[id number]] (Normal) Collected: 11/03/192358 Lab Status: Final result Specimen: Microbiology from Nasopharyngeal Updated: 11/04/19 1340 COVID-19 Not detected Narrative: This nucleic acid amplification assay performance was validated by [facility]. This test has been authorized by the Food and Drug administration (FDA)under an Emergency??Use Authorization (EUA). This test has been validated in accordance withthe FDA's guidance document Policy for Diagnostic Testing in Laboratories Certified to perform High Complexity Testing under CLIA prior to Emergency Use Authorization for Coronavirus Disease-2019 during the Public Health Emergency issued on July 21, 2019. FDA independent review of this validation is pending. This test is only authorized for the duration of time the declaration that circums tances exist justifying the authorization of emergency use of in vitro diagnostic tests for detection of SARS-CoV-2 virus and/or diagnosis of COVID-19 infection under section 564(b)(1) of the Act, 21U.S.C 360bbb-3 (b)(1), unless the authorization is terminated or revoked sooner. CULTURE BLOOD [[id number]] Collected: 11/03/192349 Lab Status: Preliminary result Specimen: Blood Peripheral Updated: 11/05/19 0530 Culture No growth 24 hours CULTURE BLOOD [[id number]] Collected: 11/03/19 2337 Lab Status: Preliminary result Specimen: Blood Peripheral Updated: 11/05/19 0530 Culture No growth 24 hours Assessment: Problem List/Plan: # presyncope: EKG negative for acute ischemic changes Troponin negative Echo and stress test on 06/11/[address] chest rule out PE On tele monitoring Will continue monitor # hematuria: UA showed 3+ blood, 51-100 RBC Urology team on board Need CT urogram and cystoscopy as outpatient # gout: Continue with allopurinol # GERD: Continue with Pepcid # MIRELLA: CPAP # HLD: On statin DVT PPx: SCDs Code Status: Full Discharge Planning: Inpatient Gemma Heart MD General Internal Medicine 11/05/2019 10:22 AM * Elaine Block, PT - 11/05/2019 10:00 AM CDT [facility] Physical Therapy Initial Evaluation Discharge Note Patient: Sandy Carr Med Record Number: [id number] Date of : 1965 Age: [age] year old Face mask: PT wore throughout Tech: none Discharge Recommendation: home Patient currently using no assistive device. Nurse and Occupational Therapy contacted regarding patient status and/or discharge plan. Physician Orders: Evaluation and Treat PRECAUTIONS: Fall Activity Level as tolerated DIAGNOSIS: Patient Active Problem List: Need for influenza [...] (obstructive sleep apnea) Chest pain Near syncope Past Medical History: Diagnosis Date ??? CKD (chronic kidney disease) ??? HFrEF (heart failure with reduced ejection fraction) ??? HLD (hyperlipidemia) ??? HTN (hypertension) ??? MIRELLA (obstructive sleep apnea) 05/13/2019 SUBJECTIVE: pt denies SOB, lightheadedness throughout PATIENT GOALS: pt would like to go home Home living: Type of Residence: Private Residence Lives with:: Daughter Steps to Enter: 1 Ramp: No Handrails: None Home Structure: One Story Primary Bedroom: First Floor Primary Bathroom: First Floor Bathroom : Tub/Shower Combo Equipment At Home: None Prior Function: Mobility: Ambulate-In Community;Independent;Without Assistive Device;Driving Fallen Within 6 Mos: No Have Help at Home?: Yes, there is help at home now Level of Help Sufficient?: Yes Oxygen at Home: 2L;CPAP at night Activity at Home: Active Vision: Corrected with glasses Hearing Exceptions: Hearing concerns Who manages medications?: (self) At start of therapy session, patient found in bed and with no alarm Pain: Patient has no c/o pain and pt agrees to participate OBJECTIVE: General Appearance: Obese, UE PIV, NAD Vitals: (*Assess the 3 levels of oxygen saturations both for room air and 02 unless rest on room air is 88% or less). Rest BP: HR: Sp02 Sp02 Room Air L O2 Ex/Gait/Activity Without 02: at EOB BP: 137/73 HR: 74 Sp02 90 Room Air RA Standing BP: 116/59 HR: 78 Sp02 90 L O2 RA Post Activity BP: HR: Sp02 Sp02 94 L O2 Room Air RA Observations: pt reports some LUZ; pt to continue using 2L home O2 as needed during activity MENTAL STATUS: Alert and oriented times 3 DIRECTION FOLLOWING: Able to follow multi-step commands 100% ROM: B LE WFL STRENGTH: B LE WFL SENSATION: B LE SILT TONE: B LE WNL NEGLECT: none noted COORDINATION: No deficits noted FUNCTIONAL MOBILITY Not Tested Not Applicable Independent Stand by Assist Minimal Moderate Maximum Dependent Rolling x Scooting x Supine to/from sit x Sit to/from Stand x Bed to/ chair x Observation: pt chose back to bed after eval; RNBella, aware; call light and needs within reach BALANCE: Sitting Static: good Dynamic: good Standing Static: good Dynamic: good minus Observation: cues for upright posture GAIT: Weight Bearing: no WBing restrictions Distance: 300 feet Device: none Assistance: Independent Balance: Good Steps: ascend/descend one step independently fair endurance Observation: cues for energy efficiency, pacing, upright posture ACTIVITY TOLERANCE: Patient's activity tolerance: fair TREATMENT/INTERVENTIONS: evaluation, bed mobility training, transfer training, gait training, stairtraining, balance activities and monitoring of vitals EDUCATION: While performing PT, Patient was instructed in:Functional mobility training/weight bearing status, Energy conservation, Pulmonary education, Safety awareness/fall precaution, Home exerciseprogram and Discharge plan Patient demonstrated Good understanding of instructions given. INFORMED CONSENT TO TREATMENT: Plan of care including recommended therapy, goals and frequency, discussed with patient who understands and agrees to proceed. ASSESSMENT: Patient demonstrates independence/ baseline with mobility/exercise. No continued Physical Therapy indicated at this time. Equipment Issued: gait belt Plan: If patient is discharged from the facility, this note serves as a discharge summary if further physical therapy visits did not occur. Elaine Block, PT 11/05/2019 * Damion Ty RN - 11/05/2019 5:18 AM CDT Pt urine yellow with no notable blood in urinal; however, pt states he has some bleeding AFTER urinating and wipes it away with kleenex. Pt confirms no actual blood in the stream and no tinge noted. * Damion Ty RN - 11/04/2019 11:41 PM CDT EMR reviewed and POC continued. Denies pain or needs. Still has some dyspnea at times and on exertion. Telemetry shows sinus bradycardia at present. Will continue to monitor. * Camilo William MD - 11/04/2019 4:25 PM CDT Hospitalist Progress Note Subjective: Patient resting in bed this morning. Reports chronic dyspnea and is on 3 L NC. No new cardiopulmonary symptoms. Patient reports gross hematuria and dysuria. Objective: Blood pressure 115/63, pulse 72, temperature 97.3 ??F (36.3 ??C), temperature source Oral, resp. rate 20, height 1.854 m (6' 1 ), weight (!) 166.4 kg (366 lb 12.8 oz), SpO2 95 %. Gen: NAD. Morbidly obese male. HEENT: NCAT, EOMI. On 3 L NC. RESP: Clear to auscultation. Nonlabored breathing. CV: Nl S1 and S2 No gallops. GI: Soft and non tender. +BS, obese belly. EXT: No edema. NEURO: A&O x 3. Moving all extremity. MAR reviewed Relevant labs reviewed Relevant imaging reviewed Assessment/Plan: Presyncope Unclear etiology. TTE and stress testing 06/11/2019 largely normal. EKG and troponin remarkable. COVID negative. D-dimer +ve, awaiting V/Q test. Could be related to low BP. PT/OT. Telemetry monitoring. Gross hematuria History of TURP, AUS placement and male stress incontinence Patient with gross hematuria. Pictures in media tab. Urology consulted, appreciate recommendations.No straight cath. Patient reports dysuria but no evidence of UTI on UA. His urine culture from 11/01/2019 (Care everywhere records) was also negative. HTN/cardiomyopathy Holding home antihypertensives due to low-normal BP. Hyperlipidemia: Continue statin CKD/hyperkalemia: Creatinine at baseline. Continue home veltassa. Morbid obesity Sleep apnea Continue supplemental oxygen 3 L NC. CPAP at night. Diet: Renal DVT prophylaxis: SCD given gross hematuria Code status: Full Camilo William MD Hospital Medicine 11/04/2019 Feel free to text page me through [employer], login [employer] * Evan Alvarez MD - 11/04/2019 1:14 PM CDT Urologic Surgery Plan of Care Note Reason for consult: hematuria Sandy Crar is a 53 year old male With history BPH s/p TURP who then developed stress incontinenceand had AUS placed 08/2017 (Dr. Rogers, [facility], records in care everywhere) who presented to [facility] 11/02 withpre-syncopal episode. Workup of syncopal episode thus far with unclear etiology, however since arrival he has had episode of samantha blood at his meatus. Patient was recently seen by his outside urologist Dr. Rogers on 10/31 with complaints of intermittent scrotal swelling, scrotal pain and dysuria. Examand cystoscopy by Dr. Rogers was done 10/31 to ensure no erosion of AUS, which was found to be well functioning and not eroding. He was found to have positive urine culture (Enterococcus) on 10/[address] Rogers prescribed him course of macrobid, however patient reportedly did not pick pulling machine operator or start prescription. Urinalysis at [facility] shows 0-2 RBC , 0-5WBC, no LE or nitrite. Urine culture in process. Repeat UAordered but not collected after episode of reported hematuria. He has not been catheterized since arriving at [facility]. Not on anti-coagulation. Non-smoker. PMH: CKD, CHF, HTN, HLD, MIRELLA, PSH: TURP, AUS placement SocHx: non-smoker. Infrequent alcohol use ROS and physical exam deferred until patient is cleared of COVID-19 Plan: -No acute urologic intervention -If patient has subsequent episode of blood in his urine, please collect and document picture in chart. -Patient recently seen by outside urologist and diagnosed with UTI, treat accordingly with antibiotics (urine culture record in care everywhere, enterococcus sensitive to macrobid) -If patient would require catheterization, please do not attempt souza without calling urology for AUS deactivation -When discharge patient can follow up with outside urologist for his urologic care -As consult is non-urgent, if hematuria persists can see patient after he is cleared of COVID Evan Alvarez MD Urology Resident, PGY-1 11/04/2019 1:14 PM Associated attestation - Deric Hamilton MD - 11/04/2019 8:16 PM CDT Agree with documentation. Pt may follow up with his operative urologist, especially given the recent placement of his AUS. No catheter placement without urology involvement. Deric Hamilton MD * Coleman Woods RN - 11/04/2019 10:39 AM CDT Problem: Fall Risk Goal: Patient will remain free of falls Outcome: Ongoing Problem: Hemodynamic Status/Cardiac Output Goal: Patient has stable vital signs and fluid balance Outcome: Ongoing Problem: Fall Risk Goal: Fall risk and fall related injury risk are minimized Outcome: Ongoing Problem: Thrombocytopenia/Bleeding Precautions Goal: Excessive bleeding will be minimized Outcome: Ongoing Goal: Precautionary measures taken to prevent bleeding Outcome: Ongoing * Yumiko Morales MSW - 11/04/2019 7:19 AM CDT A Chart Review has been conducted by Case Management. Anticipated level of care at discharge: Home Discharge Plan: home Basic Needs Assessment (BNA) Score: 9 ..Extended Emergency Contact Information Primary Emergency Contact: Candis Carr Mobile Relation: Daughter Secondary Emergency Contact: Candis Carr [address]: [address] [place] [address] Relation: Other .. Payor/Plan Subscriber Name Rel Member # Group # ANTHEM - STEVEN ENGEL O* SANDY CARR [id number] Anticipated Discharge Date: 11/05/19 PCP: Natasha Bates PA-C Per nursing assessments: Transportation at discharge: Family Transportation (who): Appeals Representative/Support: Appeals Representative person: Home/Functional Status: Pt A and Ox4 and independent in ADLs prior to admission. Equipment with patient: None Assistive Devices: None ?. Will continue to follow. For any questions or needs please contact: AVA Mendozaoverlay plastician [phone] Wheelchair Van Driver Name/Phone number: SHIRIN Sue, ED Hand Heel Seat Fitter [phone] * Dot Moss RN - 11/03/2019 11:32 PM CDT Problem: Fall Risk Goal: Patient will remain free of falls Outcome: Ongoing Problem: Hemodynamic Status/Cardiac Output Goal: Patient has stable vital signs and fluid balance Outcome: Ongoing documented in this encounter H&P Notes * Kary Sheikh MD - 11/03/2019 10:04 PM CDT Images from the original note were not included. GENERAL INTERNAL MEDICINE HISTORY AND PHYSICAL Chief Complaint: Near syncope and chest pain History of Present Illness: Sandy Carr is a 53 year old male with history of CKD3, HFpEF, HTN, HLD, MIRELLA (recently started on CPAP a week ago and on oxygen prn), hematuria, artificial urethral sphincter, morbid obesity, transferred from OSH for near syncopal episode. Patient was feeling weak today, then around 3:30 pm, he felt dizzy and lightheaded and felt he was about to pass out. He didn't fall but brought himself down to the floor and laid there for an hour. He also had multiple episodes of non bloody, yellow vomiting. He denies fall or head trauma. He denie s loss of consciousness. He had 4 beers last night which is not usual for him (rarely drinks alcohol). His girlfriend found him and called EMS. He complained of sharp, non radiating, right-sided chest pain and shortness of breath in the ambulance which improved with nitro. Her refused aspirin because of prior serious history of hematuria. He presented to [facility] where BP was 104/62, HR 71, afebrile, SpO2 98% on 2L. EKG showed NSR and no ST-T abnormalities. Troponin was negative. BNP 550. D-Ddimer positive at 0.88. Creatinine 1.3 with eGFR 58 (around baseline). CXR showed cardiomegaly with increased Insterstitial markings. They don't do V/Q scans on the weekend and his creative director is here at [facility] which is why they transferred him here. He currently denies any chest pain or shortness of breath. He has had some chills in the past few days but no fevers. He also had mild abdominal pain in the past week which he attributes to constipation and some left flank pain. He was diagnosed with UTI yesterday by his urologist at [facility] but didn'tpick up his prescription yet. 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 Review of Systems: Positives in bold Constitutional: fevers, chills, sweats, fatigue, weight loss/gain, chronic pain HEENT: head trauma, vision/hearing/voice changes, eye/ear/throat pain Respiratory: cough, shortness of breath, hemoptysis, sputum Cardiovascular: chest pain/discomfort, dyspnea on exertion, orthopnea, PND, palpitations Gastrointestinal: nausea/vomiting, diarrhea, constipation, melena, abdominal pain Genitourinary: dysuria, urgency, frequency, incontinence, hematuria Integument: rash, ulcers, itching Hematologic/lymphatic: easy bruising, bleeding Musculoskeletal: myalgias, arthralgias, leg swelling (chronic) Neurological: headaches, dizziness, numbness, tingling, seizures, pre-syncope Behavioral/Psych: anxiety, depression, memory problems Endocrine: polyuria, polydipsia, polyphagia, heat/cold intolerance Past Medical History: Past Medical History: Diagnosis Date ??? CKD (chronic kidney disease) ??? HFrEF (heart failure with reduced ejection fraction) ??? HLD (hyperlipidemia) ??? HTN (hypertension) ??? MIRELLA (obstructive sleep apnea) 05/13/2019 Surgical History: No past surgical history Social History: Social History Socioeconomic History ??? [...] Narrative ??? Not on file Family History: Non contributory Allergies: No Known Allergies Home Medications: Current Medications allopurinol (ZYLOPRIM) 100 MG tablet Take 100 mg by mouth 2 times daily amLODIPine (NORVASC) 5 MG tablet Take 1 tablet by mouth once daily atorvastatin (LIPITOR) 20 MG tablet Take 40 mg by mouth at bedtime Biotin 5 MG busPIRone (BUSPAR) 5 MG tablet Take 10 mg by mouth 2 times daily carvedilol (COREG) 25 MG tablet Take 1 tablet by mouth 2 times daily with morning and evening meal furosemide (LASIX) 20 MG tablet Take 1 tablet by mouth 2 times daily gabapentin (NEURONTIN) 300 MG capsule Take 300 mg by mouth at bedtime isosorbide mononitrate CR 24hr (IMDUR) 30 MG tablet Take 30 mg by mouth once daily patiromer (VELTASSA) 8.4 g packet Take 2 packets by mouth daily with food Measure 1/3 cup of water.Pour half into a glass, add Veltassa and stir. Add the remaining half and stir. The mixture will look cloudy. Add more water to the mixture as needed for desired consistency. Drink immediately. If powder remains in the glass after drinking, add more water, stir and drink immediately. Repeat as needed. Avoid taking other oral medications 3 hours before or after. Physical Examination: BP 106/67 Pulse 61 Temp 97.6 ??F (36.4 ??C) (Oral) Resp 20 Ht 1.854 m (6' 1 ) SpO2 93% BMI 47.01 kg/m2 GEN: in no acute distress. Morbidly obese HEENT: NCAT, MMM NECK: Supple PULM: lungs clear to auscultation bilaterally on anterior ausculation. No crackles or wheezes CARDIO: Regular rate and rhythm, Nl S1 and S2. No murmurs or gallops. GI: Abdomen obese, soft, non tender, non-distended. Normoactive bowel sounds EXT: 2+ lower extremity edema bilaterally NEURO: Alert and oriented x 3. Follows commands, moves all 4 extremities. No focal deficits appreciated. MSK: no joint tenderness, no decrease in ROM SKIN: Warm and dry, no rashes or lesions Labs: pending EKG 11/03/2019: per my personal interpretation: NSR. QTc 467 msec. Radiology: OSH CXR: cardiomegaly with increased interstitial markings. Left basilar opacity (old and unchangedfrom prior) Review of outside records/Care Everywhere revealed: As summarized in HPI Assessment and plan Sandy Carr is a 53 year old male with history of CKD3, HFpEF, HTN, HLD, MIRELLA (recently started on CPAP a week ago), hematuria, artificial urethral sphincter, morbid obesity, transferred from OSH fornear syncopal episode. # near-syncope associated with right-sided atypical chest pain and vomiting - EKG without ST-T changes. Troponin negative. Stress test in May negative so unlikely cardiac - check orthostatics. He drank 4 beers last night which is not typical for him and it likely made him dehydrated - hold home amlodipine, coreg and lasix. Can resume if orthostatics are negative - D-Dimer positive. Obtain V/Q scan given history of CKD - rule out COVID-19 given exposure and + chills - monitor on telemetry - start pepcid for possible gastritis # UTI: diagnosed yesterday by his urologist but doesn't know what antibiotics he was prescribed. Didn't fill his prescription yet. Will check UA and urine culture Other chronic medical problems # HFrEF/HTN: Holding home amlodipine, coreg, Imdur and lasix as above # HLD: continue home lipitor # CKD3 with hyperkalemia: creatinine at baseline. Continue home Veltassa # MIRELLA: CPAP qhs if COVID-19 negative. Continuous pulse ox and supplemental oxygen as needed # morbid obesity: He is scheduled for bariatric surgery in December # depression/anxiety: continue home Buspirone # artificial urethral sphincter: please no straight cath (CI) # constipation: bowel regimen Diet: renal Activity: as tolerated DVT PPx: SQH TID Code Status: Full code PT/OT Consulted: no Dispo: inpatient monitoring This patient was seen by me at 22:00 on 11/03/2019 and total time spent on this admission including review of outside records was about 60 minutes. Kary Sheikh MD Oil Drilling Engineer of Internal Medicine Hospitalist 11/03/2019 11:11 PM documented in this encounter Consult Notes * Evan Alvarez MD - 11/04/2019 6:48 PM CDT [facility] Division of Urologic Surgery New Consult Note Attending: Deric Hamilton III, MD Patient Name: Sandy Carr Age/Gender: 53 year old male : 1965 Date: 11/04/2019 Reason for Consult: gross hematuria HPI: Sandy Carr is a 53 year old male with PMH hematuria s/p TURP , stress urinary incontinence with AUS placement [id number] (Dr. Rogers, [facility], record in care everywhere) who presented to [facility] ??11/02 with pre-syncopal episode. Workup of syncopal episode thus far with unclear cause, however since arrival hehas had episode of gross hematuria prompting consult. Patient was recently seen by his outside urologist Dr. Rogers on 10/31 with complaints of intermittent scrotal swelling, scrotal pain and dysuria.Exam and cystoscopy by Dr. Rogers was done 10/31 to ensure no erosion of AUS, which was found to be well functioning and not eroding. He was found to have positive urine culture (Enterococcus) on 10/[address] Rogers prescribed him course of macrobid, however patient reportedly did not pick pulling machine operator or start prescription. At [facility] initially his urine culture was negative for blood or any evidence of infection. (0-2 RBC, 0-5WBC, - nitrite and LE, urine culture currently in progress). He was given two doses of SQH, and later in the day developed gross hematuria (picutre in epic media tab, fruit punch red, 50-100RBC on repeat UA). SQH was then held. Continues to to have dysuria however his void following the hematuria was clear yellow. Patient cycled AUS pump for me during my exam and urine was again clear yellow. He does have history of prior gross hematuria, per patient in 2017 had ~20 day hospital stay at OSH, requiring CBI and OR cystoscopy and TURP (patient says urologist did not think prostate was sourceof hematuria). It was during this surgery that damage occurred to his sphincter requiring his AUS. Also says outside urologist said bladder looks as if it had been radiated. He has no radiation history. 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 Non-smoker. His family history is pertinent for mother and brother both with bladder cancer. (mother from metastatic disease, brother non-invasive). No further episodes of gross hematuria since 2017 until now. He does not recall if CT was ever done to complete initial hematuria workup. Also per patient (and Dr. Rogers note), bladder not evaluated on recent cystoscopy, only urethra. Past Medical History: Diagnosis Date ??? CKD (chronic kidney disease) ??? HFrEF (heart failure with reduced ejection fraction) ??? HLD (hyperlipidemia) ??? HTN (hypertension) ??? MIRELLA (obstructive sleep apnea) 05/13/2019 No current facility-administered medications on file prior to encounter. Current Outpatient Medications on File Prior to Encounter Medication Sig Dispense Refill ??? allopurinol (ZYLOPRIM) 100 MG tablet Take [...] ??? carvedilol (COREG) 25 MG tablet Take 1 tablet by mouth 2 times daily with morning and evening meal 180 tablet 4 ??? furosemide (LASIX) 20 MG tablet Take 1 tablet by mouth 2 times daily (Patient taking differently: Take 40 mg by mouth 2 times daily ) 60 tablet 11 ??? gabapentin (NEURONTIN) 300 MG capsule Take 300 mg by mouth at bedtime ??? isosorbide mononitrate CR 24hr (IMDUR) 30 MG tablet Take 30 mg by mouth once daily ??? patiromer (VELTASSA) 8.4 g packet Take 2 packets by mouth daily with food Measure 1/3 [...] hours before or after. 30 packet 3 No Known Allergies No past surgical history on file. Social [...] Social History Narrative ??? Not on file No family history on file. REVIEW OF SYSTEMS Constitutional: Negative for fatigue, fevers, chills, weight change Eyes: Negative for visual changes CV: Negative for chest pain Pulm: Negative for dyspnea GI: Negative for abdominal pain, nausea, vomiting, diarrhea : Negative for dysuria, hematuria MSK: Negative for myalgias, arthralgias Skin: Negative for skin changes Neuro: Negative for weakness, +lightheadedness Remainder of ROS negative unless documented in HPI PHYSICAL EXAM Vitals: 11/04/19 0400 11/04/19 0444 11/04/19 0907 11/04/19 1729 BP: 112/67 115/63 117/67 Pulse: 73 72 71 Resp: Temp: 97.2 ??F (36.2 ??C) 97.3 ??F (36.3 ??C) 97.3 ??F (36.3 ??C) SpO2: 96% 95% 95% Weight: (!) 366 lb 12.8 oz (166.4 kg) Height: Estimated body mass index is 48.39 kg/m?? as calculated from the following: Height as of this encounter: 6' 1 (1.854 m). Weight as of this encounter: 366 lb 12.8 oz (166.4 kg). Gen: No acute distress, obese HEENT: AT/NC, EOMI CV: Regular rate Pulm: Nonlabored respirations, on nasal cannula Abd: Soft, non-distended, mild lower abdominal TTP. Non-peritoneal. : male phallus, circumcised. Hypoglandular erosion of meatus. AUS pump palpable in right hemiscrotum. Patient cycled pump during exam and cycles appropriately, voided clear yellow urine. Small red clot at meatus following void. Testicles seem enlarged, R>L (unclear baseline), no palpable masses. MSK: WWP, no cyanosis Skin: Normal color and turgor, no lesions noted Neuro: Moving all extremities spontaneously, no focal deficits Psych: Appropriate mood and affect Recent Labs: CBC: Recent Labs Component Name 11/03/19 2337 WBC 12.4* HGB 12.1* HCT 38.5* BMP: Recent Labs Component Name 11/03/19 2337 NA 146* CL 107 CO2 30* BUN 31* CREATININE 1.4* Recent Labs Component Name 11/03/19 2337 PT 13.4 INR 1.1 Imaging: No pertinent imaging available Microbiology: Urine culture (11/03) in process Blood culture (11/02) in process COVID-19 (11/02): negative Pathology: None available Assessment and Plan: Sandy Carr is a 53 year old male history of TURP, c/b LIZET With AUS placement 2017 and history of gross hematuria in 2017 (undetermined cause reported), who presented to [facility] with gross pre-syncope, developed gross hematuria while admitted. Possibly due to UTI, anti-coagulation, vs possible bladderpathology. -No acute urologic intervention -Urine currently clear yellow, continue to monitor for recurrence of hematuira -Continue to hold anti-coagulation and anti-platelets -Follow up urine culture, if positive treat accordingly -Strict I/Os, trend Hb and Cr -If patient unable to void and requires catheterization, do not perform CIC or place souza in patient, please call for assistance as patient has artificial urinary sphincter, needs to be deflated prior to any instrumentation -If hematuria recurs please upload picture in Epic chart -Given fam history of bladder cancer and occupational exposures, patient requires CT urogram and cystoscopy to rule out bladder malignancy. Can be done with patient's outside established urologist asoutpatient, will discuss this with attending. Evan Alvarez MD Urology Resident, PGY-1 11/04/2019 6:48 PM Associated attestation - Deric Hamilton MD - 11/05/2019 7:10 AM CDT Discussed with team. Agree with documentation. Pt does need full hematuria workup, this may be completed as an outpatient with his operative urologist. Deric Hamilton MD documented in this encounter Plan of Treatment Scheduled Orders Name Type Priority Associated Diagnoses Order Schedule REASSESSMENT PARAMETERS Respiratory Care Routine ONCE for 1 Occurrences starting 11/03/2019 until 11/03/2019 SIX MINUTE WALK Respiratory Care Routine ONC E for 1 Occurrences starting 11/06/2019 until 11/06/2019 documented as of this encounter Procedures Procedure Name Priority Date/Time Associated Diagnosis Comments CARDIAC PROCEDURE ORDER 11/08/2019 8:27 PM CDT CARDIAC EKG ORDER 11/08/2019 8:2 7 PM CDT CBC W/O DIFFERENTIAL AM Draw 11/07/2019 4:13 AM CDT BASIC METABOLIC PANEL (CALCIUM TOTAL) AM Draw 11/07/2019 4:13 AM CDT CBC W/O DIFFERENTIAL AM Draw 11/06/2019 5:59 AM CDT Near syncope RENAL FUNCTION PANEL AM Draw 11/06/2019 5:59 AM CDT Near syncope MAGNESIUM BLOOD Routine 11/06/2019 5:[address] HEAD WO CONTRAST STAT 11/05/2019 1 0:[address] ANGIO CHEST PULM EMBOLISM Routine 11/05/2019 1:19 PM CDT Near syncope PT-INR [facility] AM Draw 11/05/2019 4:36 AM CDT Gross hematuria TYPE + SCREEN PANEL Routine 11/05/2019 4 :36 AM CDT Gross hematuria CBC W/O DIFFERENTIAL AM Draw 11/05/2019 4:36 AM CDT Gross hematuria BASIC METABOLIC PANEL (CALCIUM TOTAL) AM Draw 11/05/2019 4:36 AM CDT Gross hematuria OT EVAL AND TREAT Routine 11/04/2019 4:2 9 PM CDT PT EVAL AND TREAT Routine 11/04/2019 4:2 9 PM CDT URINALYSIS REFLEX TO MICROSCOPIC NO CULTURE Routine 11/04/2019 2:41 PM CDT Gross hematuria URINALYSIS REFLEX TO MICROSCOPIC NO CULTURE Routine 11/04/2019 12:55 AM CDT Dysuria CULTURE URINE Routine 11/04/2019 12:55 AM CDT Dysuria SARS-COV-2 (COVID-19) IN HOUSE Routine 11/03/2019 11:59 PM CDT Near syncope CULTURE BLOOD STAT 11/03/2019 11:50 PM CDT Near syncope PT-INR [facility] STAT 11/03/2019 11:37 PM CDT Near syncope TROPONIN I STAT 11/03/2019 11:37 PM CDT Near syncope CULTURE BLOOD STAT 11/03/2019 11:37 PM CDT Near syncope CBC W AUTO DIFFERENTIAL STAT 11/03/2019 11:37 PM CDT Near syncope B-TYPE NATRIURETIC PEPTIDE STAT 11/03/2019 11:37 PM CDT Near syncope COMPREHENSIVE METABOLIC PANEL STAT 11/03/2019 11:37 PM CDT Near syncope PHOSPHORUS BLOOD STAT 11/03/2019 11:3 7 PM CDT Near syncope MAGNESIUM BLOOD STAT 11/03/2019 11:37 PM CDT Near syncope LACTIC ACID BLOOD STAT 11/03/2019 11: 37 PM CDT Near syncope CK BLOOD STAT 11/03/2019 11:37 PM CDT Near syncope TSH CB 11/03/2019 11:37 PM CDT Near syncope OXYGEN WITH TITRATION PROTOCOL (ADULT) Routine 11/03/2019 10:28 PM CDT EKG 12-LEAD STAT 11/03/2019 10:17 PM CDT Near syncope documented in this encounter Results * CARDIAC PROCEDURE ORDER (11/08/2019 8:27 PM CDT) Narrative 11/08/2019 8:27 PM CDT Ordered by an unspecified provider. Scanned Document CARDIAC SERVICES ORD ERABLES * CARDIAC EKG ORDER (11/08/2019 8:27 PM CDT) Narrative 11/08/2019 8:27 PM CDT Ordered by an unspecified provider. Scanned Document CARDIAC SERVICES ORD ERABLES * (ABNORMAL) BASIC METABOLIC PANEL (CALCIUM TOTAL) (11/07/2019 4:13 AM CDT) BUN 17 7 - 26 mg/dL 11/07/2019 4:52 AM [facility] Creatinine 1.4(H) 0.6 - 1.2 mg/dL 11/07/2019 4:52 AM [facility] Sodium 141 136 - 145 mmol/L 11/07/2019 4:52 AM [facility] Potassium 3.6 3.5 - 4.5 mmol/L 11/07/2019 4:52 AM [facility] Chloride 106 98 - 107 mmol/L 11/07/2019 4:52 AM [facility] CO2 30(H) 22 - 29 mmol/L 11/07/2019 4:52 AM [facility] Glucose 89 70 - 115 mg/dL 11/07/2019 4:52 AM [facility] Calcium 8.3(L) 8.4 - 10.2 mg/dL 11/07/2019 4:52 AM [facility] Anion Gap 9 8 - 18 11/07/2019 4:52 AM [facility] BUN/Creatinine Ratio 12 7 - 23 11/07/2019 4:52 AM [facility] Osmolality Calculated 293 270 - 300 mOsm/kg 11/07/2019 4:52 AM [facility] eGFR 53(L) >60 mL/min/1.7 3 m2 11/07/2019 4:52 AM [facility] Blood BLOOD SPECIMEN / Unknown Lab Venipuncture / Unknown 11/07/2019 4:13 AM CDT 11/07/2019 4:25 AM CDT Coleman Cancino MD LAB - CHEMISTRY HERNANDEZ SAL [facility] [address] [place] [phone], [facility] [phone] * (ABNORMAL) CBC W/O DIFFERENTIAL (11/07/2019 4:13 AM CDT) WBC 8.8 3.5 - 10.5 10? 3 /uL 11/07/2019 4:37 AM T [facility] RBC 4.26(L) 4.30 - 5.70 10? 6 /uL 11/07/2019 4:37 AM [facility] Hemoglobin 12.1(L) 13.5 - 17.5 g/dL 11/07/2019 4:37 AM [facility] Hematocrit 39.0 39.0 - 50.0 % 11/07/2019 4:37 AM [facility] MCV 91.5 81.0 - 97.0 fL 11/07/2019 4:37 AM [facility] MCH 28.4 28.0 - 34.0 pg 11/07/2019 4:37 AM [facility] MCHC 31.0(L) 32.0 - 36.0 g/dL 11/07/2019 4:37 AM [facility] Platelet Count 201 150 - 400 10? 3 /uL 11/07/2019 4:37 AM [facility] RDW-SD 49.1 36.0 - 50.0 fL 11/07/2019 4:37 AM [facility] RDW-CV 14.8 11.2 - 14.8 % 11/07/2019 4:37 AM [facility] MPV 12.0 9.3 - 12.8 fL 11/07/2019 4:37 AM [facility] nRBC Absolute 0.00 0 10? 3 /uL 11/07/2019 4:37 AM [facility] nRBC Auto 0.0 0 /100 WBC 11/07/2019 4:37 AM [facility] Blood BLOOD SPECIMEN / Unknown Lab Venipuncture / Unknown 11/07/2019 4:13 AM CDT 11/07/2019 4:25 AM CDT Coleman Cancino MD LAB - HEMATOLOGY ORD ERABLES Performing Organization Address [place]/[facility]/ZIP Co de Phone Number [address] [address], [facility] [phone] * MAGNESIUM BLOOD (11/06/2019 5:59 AM CDT) Magnesium 2.2 1.6 - 2.6 mg/dL 11/06/2019 6:44 AM T [facility] Blood BLOOD SPECIMEN / Unknown Lab Venipuncture / Unknown 11/06/2019 5:59 AM CDT 11/06/2019 6:19 AM CDT Gemma Heart MD LAB - CHEMISTRY OR DERABLES [address] [address], [facility] [phone] * (ABNORMAL) RENAL FUNCTION PANEL (11/06/2019 5:59 AM CDT) BUN 18 7 - 26 mg/dL 11/06/2019 6:44 AM [facility] Creatinine 1.3(H) 0.6 - 1.2 mg/dL 11/06/2019 6:44 AM [facility] Sodium 144 136 - 145 mmol/L 11/06/2019 6:44 AM T [facility] Potassium 3.7 3.5 - 4.5 mmol/L 11/06/2019 6:44 AM [facility] Chloride 107 98 - 107 mmol/L 11/06/2019 6:44 AM [facility] CO2 30(H) 22 - 29 mmol/L 11/06/2019 6:44 AM [facility] Glucose 85 70 - 115 mg/dL 11/06/2019 6:44 AM [facility] Albumin 2.5(L) 3.4 - 5.0 g/dL 11/06/2019 6:44 AM [facility] Calcium 8.5 8.4 - 10.2 mg/dL 11/06/2019 6:44 AM [facility] Phosphorus 3.1 2.3 - 4.7 mg/dL 11/06/2019 6:44 AM [facility] Anion Gap 11 8 - 18 11/06/2019 6:44 AM [facility] BUN/Creatinine Ratio 14 7 - 23 11/06/2019 6:44 AM [facility] Osmolality Calculated 299 270 - 300 mOsm/kg 11/06/2019 6:44 AM [facility] eGFR 58(L) >60 mL/min/1.7 3 m2 11/06/2019 6:44 AM [facility] Blood BLOOD SPECIMEN / Unknown Lab Venipuncture / Unknown 11/06/2019 5:59 AM CDT 11/06/2019 6:19 AM CDT Gemma Heart MD LAB - CHEMISTRY OR DERABLES Performing Organization Address [place]/State/ZIP Co de Phone Number [address] [address], [facility] [phone] * (ABNORMAL) CBC W/O DIFFERENTIAL (11/06/2019 5:59 AM CDT) WBC 10.3 3.5 - 10.5 10? 3 /uL 11/06/2019 6:33 AM [facility] RBC 4.18(L) 4.30 - 5.70 10? 6 /uL 11/06/2019 6:33 AM [facility] Hemoglobin 12.0(L) 13.5 - 17.5 g/dL 11/06/2019 6:33 AM [facility] Hematocrit 38.7(L) 39.0 - 50.0 % 11/06/2019 6:33 AM [facility] MCV 92.6 81.0 - 97.0 fL 11/06/2019 6:33 AM [facility] MCH 28.7 28.0 - 34.0 pg 11/06/2019 6:33 AM [facility] MCHC 31.0(L) 32.0 - 36.0 g/dL 11/06/2019 6:33 AM CDT [facility] Platelet Count 193 150 - 400 10? 3 /uL 11/06/2019 6:33 AM CDT [facility] RDW-SD 50.0 36.0 - 50.0 fL 11/06/2019 6:33 AM CDT [facility] RDW-CV 14.8 11.2 - 14.8 % 11/06/2019 6:33 AM CDT [facility] MPV 12.2 9.3 - 12.8 fL 11/06/2019 6:33 AM CDT [facility] nRBC Absolute 0.00 0 10? 3 /uL 11/06/2019 6:33 AM CDT [facility] nRBC Auto 0.0 0 /100 WBC 11/06/2019 6:33 AM CDT [facility] Blood BLOOD SPECIMEN / Unknown Lab Venipuncture / Unknown 11/06/2019 5:59 AM CDT 11/06/2019 6:19 AM CDT Gemma Heart MD LAB - HEMATOLOGY O RDERABLES [address] [address] [phone] * CT HEAD WO CONTRAST (11/05/2019 10:22 PM CDT) Anatomical Region Laterality Modality Head Computed Tomogra phy 11/06/2019 9:13 AM CDT Impressions 11/06/2019 11:09 AM CDT IMPRESSION: No acute intracranial hemorrhage, midline shift, or significant mass effect. Dictated by Veronique Sorto MD (oral and maxillofacial surgery resident). I, Dr. RED FRIED have personally reviewed and interpreted this examination/study. This report was electronically signed by RED FRIED ??on 11/06/2019 11:09 AM . Narrative 11/06/2019 [...] soft tissue abnormality is identified. Procedure Note Red Fried MD - 11/06/2019 EXAMINATION: CT OF THE [...] mass effect. Dictated by Veronique Sorto MD (oral and maxillofacial surgery resident). IDr. RED have personally reviewed and interpreted this examination/study. This report was electronically signed by RED FRIED on 11/06/201911:09 AM . Kary Sheikh MD CT ORDERABLES * CT ANGIO CHEST PULM EMBOLISM (11/05/2019 1:19 PM CDT) Anatomical Region Laterality Modality Chest Computed Tomogra [...] Pulmonary hypertension. Dictated by Lj Womack MD (oral and maxillofacial surgery resident). I, Dr. ISELA CONNELL M.D. have personally reviewed and interpreted this examination/study. This report was electronically signed by ISELA CONNELL M.D. ??on 11/05/2019 1:45 PM . Narrative [...] seen in the spine. Procedure Note Becky Connell MD - 11/05/2019 EXAMINATION: Computed tomography (CT) [...] Pulmonary hypertension. Dictated by Lj Womack MD (oral and maxillofacial surgery resident). I, Dr. ISELA CONNELL M.D. have personally reviewed and interpretedthis examination/study. This report was electronically signed by ISELA CONNELL M.D. on 11/05/2019 1:45 PM . Gemma Heart MD CT ORDERABLES * TYPE + SCREEN PANEL (11/05/2019 4:36 AM CDT) Antibody Screen NEG 0 5:27 AM CDT [facility] BLOOD BANK LAB ABO Rh A POS 11/05/2019 5:27 AM CDT [facility] BLOOD B[facility] LAB Blood Bank BLOOD SPECIMEN / Unknown Lab Venipuncture / Unknown 11/05/2019 4:36 AM CDT 11/05/2019 4:50 AM CDT Camilo William MD LAB - BLOOD BANK ORD ERABLES [facility] BLOOD [facility] LAB [address] [place] [phone], [facility] * PT-INR [facility] (11/05/2019 4:36 AM CDT) PT 13.6 12.1 - 14.8 Seconds 11/05/2019 5:00 AM [facility] INR 1.1 See Comment 11/05/2019 5:00 AM [facility] Comment:The suggested therap eutic range for standard coumadin (warfarin) therapy is an INR of 2.0-3.0. For high-risk patients (Mechanical Mitral Valve Prosthesis, etc.), the suggested prophylactic therapeutic range is an INR of 2.5-3.5. Blood BLOOD SPECIMEN / Unknown Lab Venipuncture / Unknown 11/05/2019 4:36 AM CDT 11/05/2019 4:47 AM CDT Camilo William MD LAB - COAGULATION OR DERABLES Performing Organization Address [place]/State/ZIP Co de Phone Number [address] [address] [phone] * (ABNORMAL) BASIC METABOLIC PANEL (CALCIUM TOTAL) (11/05/2019 4:36 AM CDT) BUN 22 7 - 26 mg/dL 11/05/2019 5:05 AM [facility] Creatinine 1.3(H) 0.6 - 1.2 mg/dL 11/05/2019 5:05 AM [facility] Sodium 144 136 - 145 mmol/L 11/05/2019 5:05 AM [facility] Potassium 3.7 3.5 - 4.5 mmol/L 11/05/2019 5:05 AM [facility] Chloride 107 98 - 107 mmol/L 11/05/2019 5:05 AM [facility] CO2 30(H) 22 - 29 mmol/L 11/05/2019 5:05 AM [facility] Glucose 85 70 - 115 mg/dL 11/05/2019 5:05 AM [facility] Calcium 8.5 8.4 - 10.2 mg/dL 11/05/2019 5:05 AM [facility] Anion Gap 11 8 - 18 11/05/2019 5:05 AM [facility] BUN/Creatinine Ratio 17 7 - 23 11/05/2019 5:05 AM [facility] Osmolality Calculated 301(H) 270 - 300 mOsm/kg 11/05/2019 5:05 AM [facility] eGFR 58(L) >60 mL/min/1.7 3 m2 11/05/2019 5:05 AM [facility] Blood BLOOD SPECIMEN / Unknown Lab Venipuncture / Unknown 11/05/2019 4:36 AM CDT 11/05/2019 4:47 AM CDT Camilo William MD LAB - CHEMISTRY HERNANDEZ SAL [address] [address], [facility] [phone] * (ABNORMAL) CBC W/O DIFFERENTIAL (11/05/2019 4:36 AM CDT) WBC 10.8(H) 3.5 - 10.5 10? 3 /uL 11/05/2019 4:54 AM [facility] RBC 4.12(L) 4.30 - 5.70 10? 6 /uL 11/05/2019 4:54 AM [facility] Hemoglobin 11.9(L) 13.5 - 17.5 g/dL 11/05/2019 4:54 AM [facility] Hematocrit 39.0 39.0 - 50.0 % 11/05/2019 4:54 AM [facility] MCV 94.7 81.0 - 97.0 fL 11/05/2019 4:54 AM [facility] MCH 28.9 28.0 - 34.0 pg 11/05/2019 4:54 AM [facility] MCHC 30.5(L) 32.0 - 36.0 g/dL 11/05/2019 4:54 AM [facility] Platelet Count 195 150 - 400 10? 3 /uL 11/05/2019 4:54 AM [facility] RDW-SD 52.1(H) 36.0 - 50.0 fL 11/05/2019 4:54 AM [facility] RDW-CV 14.9(H) 11.2 - 14.8 % 11/05/2019 4:54 AM [facility] MPV 12.1 9.3 - 12.8 fL 11/05/2019 4:54 AM [facility] nRBC Absolute 0.00 0 10? 3 /uL 11/05/2019 4:54 AM [facility] nRBC Auto 0.0 0 /100 WBC 11/05/2019 4:54 AM [facility] Blood BLOOD SPECIMEN / Unknown Lab Venipuncture / Unknown 11/05/2019 4:36 AM CDT 11/05/2019 4:47 AM CDT Camilo William MD LAB - HEMATOLOGY ORD ERABLES [address] [address], [facility] [phone] * (ABNORMAL) URINALYSIS REFLEX TO MICROSCOPIC NO CULTURE (11/04/2019 2:41 PM CDT) Color UA Yellow Straw, Yellow, Colorless 11/04/2019 3:03 PM [facility] Clarity UA Clear Clear, Slt Cloudy 11/04/2019 3:03 PM [facility] Specific [place] UA 1.010 1.005 - 1.030 11/04/2019 3:03 PM [facility] pH UA 6.0 5.0 - 8.0 pH 11/04/2019 3:03 PM [facility] Protein UA 1+(A) Negative mg/dL 11/04/2019 3:03 PM [facility] Glucose UA Negative Negative mg/dL 11/04/2019 3:03 PM [facility] Ketone UA Negative Negative mg/dL 11/04/2019 3:03 PM [facility] Bilirubin UA Negative Negative mg/dL 11/04/2019 3:03 PM [facility] Blood UA 3+(A) Negative 11/04/2019 3:03 PM [facility] Nitrite UA Negative Negative 11/04/2019 3:03 PM [facility] Leukocyte Esterase Negative Negative 11/04/2019 3:03 PM CDT [facility] Urobilinogen UA Negative Negative mg/dL 11/04/2019 3:03 PM CDT [facility] RBC UA 51-100(A) None Seen, 0-2, 3-5 /HPF 11/04/2019 3:03 PM CDT [facility] WBC UA 0-5 None Seen, 0-5 /HPF 11/04/2019 3:03 PM CDT [facility] Bacteria UA Trace None, Trace /HPF 11/04/2019 3:03 PM CDT [facility] Squamous Epithelial Cells UA 0-2 None Seen, 0-2 /HPF 11/04/2019 3:03 PM CDT [facility] Mucus UA 1+ None, 1+ /LPF 11/04/2019 3:03 PM CDT [facility] Urine URINE SPECIMEN OBTAINED BY CLEAN CATCH PROCEDURE / Unknown Collection / Unknown 11/04/2019 2:41 PM CDT 11/04/2019 2:50 PM CDT Narrative [facility] - 11/04/2019 3:03 PM CDT Camilo William MD LAB - URINALYSIS ORD ERABLES [facility] [address] [place] [phone], [facility] [phone] * CULTURE URINE (11/04/2019 12:55 AM CDT) Culture Urine No growth (<100 CFU/mL) JAIME 11/05/2019 7:24 AM CDT [facility] Urine URINE SPECIMEN OBTAINED BY CLEAN CATCH PROCEDURE / Unknown Collection / Unknown 11/04/2019 12:55 AM CDT 11/04/2019 1:00 AM CDT Kary Sheikh MD LAB - MICROBIOLOGY O RDERABLES [facility] [address] [place] [address], [facility] [phone] * (ABNORMAL) URINALYSIS REFLEX TO MICROSCOPIC NO CULTURE (11/04/2019 12:55 AM CDT) Color UA Straw Straw, Yellow, Colorless 11/04/2019 1:13 AM [facility] Clarity UA Clear Clear, Slt Cloudy 11/04/2019 1:13 AM [facility] Specific Norton UA 1.011 1.005 - 1.030 11/04/2019 1:13 AM [facility] pH UA 5.0 5.0 - 8.0 pH 11/04/2019 1:13 AM [facility] Protein UA 1+(A) Negative mg/dL 11/04/2019 1:13 AM [facility] Glucose UA Negative Negative mg/dL 11/04/2019 1:13 AM [facility] Ketone UA Negative Negative mg/dL 11/04/2019 1:13 AM [facility] Bilirubin UA Negative Negative mg/dL 11/04/2019 1:13 AM [facility] Blood UA Negative Negative 11/04/2019 1:13 AM [facility] Nitrite UA Negative Negative 11/04/2019 1:13 AM [facility] Leukocyte Esterase Negative Negative 11/04/2019 1:13 AM [facility] Urobilinogen UA Negative Negative mg/dL 11/04/2019 1:13 AM [facility] RBC UA 0-2 None Seen, 0-2, 3-5 /HPF 11/04/2019 1:13 AM [facility] WBC UA 0-5 None Seen, 0-5 /HPF 11/04/2019 1:13 AM [facility] Squamous Epithelial Cells UA 0-2 None Seen, 0-2 /HPF 11/04/2019 1:13 AM [facility] Urine URINE SPECIMEN OBTAINED BY CLEAN CATCH PROCEDURE / Unknown Collection / Unknown 11/04/2019 12:55 AM T 11/04/2019 1:00 AM [facility] - 11/04/2019 1:13 AM [facility] Kary Sheikh MD LAB - URINALYSIS ORD ERABLES [address] [address], [facility] [phone] * SARS-COV-2 (COVID-19) IN HOUSE (11/03/2019 11:59 PM CDT) COVID-19 PCR Not detected Not detected, Invalid 11/04/2019 1:40 PM CDT [facility] Microbiology SPECIMEN FROM NASOPHARYNGEAL STRUCTURE / Unknown Collection / Unknown 11/03/2019 11:59 PM CDT 11/04/2019 12:06 AM CDT Narrative [facility] - 11/04/2019 1:40 PM CDT This nucleic acid amplification assay performance was validated by [facility]. This test has been [...] the authorization is terminated or revoked sooner. Kary Sheikh MD LAB - MICROBIOLOGY O RDERAIVÁN [facility] [address] [place], [place] [address] [place] [address] * CULTURE BLOOD (11/03/2019 11:50 PM CDT) Culture No growth day 5 JAIME 11/09/2019 5:30 AM CDT [facility] Blood PERIPHERAL BLOOD / Unknown Lab Venipuncture / Unknown 11/03/2019 11:50 PM CDT 11/04/2019 12:00 AM CDT Kary Sheikh MD LAB - MICROBIOLOGY O RDERAIVÁN Performing Organization Address City/[facility]/ZIP Co de Phone Number [facility] [address] [place] [address], [facility] [phone] * TSH (11/03/2019 11:37 PM CDT) Pathologist [facility] TSH 1.196 0.350 - 4.940 uIU/mL 11/04/2019 12:28 AM CDT [facility] Blood BLOOD SPECIMEN / Unknown Lab Venipuncture / Unknown 11/03/2019 11:37 PM CDT 11/03/2019 11:45 PM CDT Kary Sheikh MD LAB - CHEMISTRY HERNANDEZ SAL Performing Organization Address [place]/[facility] Co de Phone Number [address] [address], [facility] [phone] * CK BLOOD (11/03/2019 11:37 PM CDT) [facility] CK Total 94 30 - 200 Units/L 11/04/2019 12:07 AM CDT [facility] Blood BLOOD SPECIMEN / Unknown Lab Venipuncture / Unknown 11/03/2019 11:37 PM CDT 11/03/2019 11:45 PM CDT Kary Sheikh MD LAB - CHEMISTRY HERNANDEZ SAL Performing Organization Address [place]/[facility] Co de Phone Number [address] [address], [facility] [phone] * CULTURE BLOOD (11/03/2019 11:37 PM CDT) [facility] Culture No growth day 5 JAIME 11/09/2019 5:30 AM CDT [facility] Blood PERIPHERAL BLOOD / Unknown Lab Venipuncture / Unknown 11/03/2019 11:37 PM CDT 11/03/2019 11:44 PM CDT Kary Sheikh MD LAB - MICROBIOLOGY O RDERABLES [facility] [address] [place], [place] [address], [facility] [phone] * (ABNORMAL) B-TYPE NATRIURETIC PEPTIDE (11/03/2019 11:37 PM CDT) [facility] Signature BNP 328(H) See Comment pg/mL 11/04/2019 12:13 AM CDT [facility] Comment: * Disclaimer: BNP results may be falsely high by 20% due * * to shift observed secondary to new reagent lot. Lab ?* * working with butcher helper to resolve. ?* * ?* * Please contact Core Lab Manager Women with any questions ??* A decision threshold [...] 98.3 ? Blood BLOOD SPECIMEN / Unknown Lab Venipuncture / Unknown 11/03/2019 11:37 PM CDT 11/03/2019 11:45 PM CDT Kary Sheikh MD LAB - CHEMISTRY HERNANDEZ SAL Performing Organization Address [place]/State/[facility] Co de Phone Number [address] [address], [facility] [phone] * PT-INR [facility] (11/03/2019 11:37 PM CDT) PT 13.4 12.1 - 14.8 Seconds 11/03/2019 11:56 PM CDT [facility]OR[facility] INR 1.1 See Comment 11/03/2019 11:56 PM CDT [facility] Comment:The suggested therap eutic range for standard coumadin (warfarin) therapy is an INR of 2.0-3.0. For high-risk patients (Mechanical Mitral Valve Prosthesis, etc.), the suggested prophylactic therapeutic range is an INR of 2.5-3.5. Blood BLOOD SPECIMEN / Unknown Lab Venipuncture / Unknown 11/03/2019 11:37 PM CDT 11/03/2019 11:45 PM CDT Kary Sheikh MD LAB - COAGULATION OR DERABLES [address] [address], [facility] [phone] * TROPONIN I (11/03/2019 11:37 PM CDT) Troponin I 0.018 <0.032 ng/mL 11/04/2019 12:13 AM CDT [facility] Blood BLOOD SPECIMEN / Unknown Lab Venipuncture / Unknown 11/03/2019 11:37 PM CDT 11/03/2019 11:45 PM CDT Kary Sheikh MD LAB - CHEMISTRY HERNANDEZ SAL Performing Organization Address City/[facility]/ZIP Co de Phone Number [address], [facility] [phone] * LACTIC ACID BLOOD (11/03/2019 11:37 PM CDT) Lactic Acid-Stat 0.8 0.5 - 2.2 mmol/L 11/04/2019 12:03 AM CDT [facility] Blood BLOOD SPECIMEN / Unknown Lab Venipuncture / Unknown 11/03/2019 11:37 PM CDT 11/03/2019 11:45 PM CDT Kary Sheikh MD LAB - CHEMISTRY HERNANDEZ SAL [address] [address], [facility] [phone] * PHOSPHORUS BLOOD (11/03/2019 11:37 PM CDT) Phosphorus 3.9 2.3 - 4.7 mg/dL 11/04/2019 12:07 AM CDT [facility] Blood BLOOD SPECIMEN / Unknown Lab Venipuncture / Unknown 11/03/2019 11:37 PM CDT 11/03/2019 11:45 PM CDT Kary Sheikh MD LAB - CHEMISTRY HERNANDEZ SAL [address] [address], [facility] [phone] * MAGNESIUM BLOOD (11/03/2019 11:37 PM CDT) Pathologist [facility] Magnesium 2.1 1.6 - 2.6 mg/dL 11/04/2019 12:07 AM [facility] Blood BLOOD SPECIMEN / Unknown Lab Venipuncture / Unknown 11/03/2019 11:37 PM CDT 11/03/2019 11:45 PM CDT Kary Sheikh MD LAB - CHEMISTRY HERNANDEZ SAL Performing Organization Address [place]/[facility]/ZIP Co de Phone Number [address] [address], [facility] [phone] * (ABNORMAL) COMPREHENSIVE METABOLIC PANEL (11/03/2019 11:37 PM CDT) BUN 31(H) 7 - 26 mg/dL 11/04/2019 12:07 AM [facility] Creatinine 1.4(H) 0.6 - 1.2 mg/dL 11/04/2019 12:07 AM [facility] Sodium 146(H) 136 - 145 mmol/L 11/04/2019 12:07 AM [facility] Potassium 4.9(H) 3.5 - 4.5 mmol/L 11/04/2019 12:07 AM [facility] Chloride 107 98 - 107 mmol/L 11/04/2019 12:07 AM [facility] CO2 30(H) 22 - 29 mmol/L 11/04/2019 12:07 AM [facility] Glucose 100 70 - 115 mg/dL 11/04/2019 12:07 AM [facility] Calcium 8.9 8.4 - 10.2 mg/dL 11/04/2019 12:07 AM [facility] Protein Total 7.1 6.0 - 8.3 g/dL 11/04/2019 12:07 AM [facility] Albumin 2.7(L) 3.4 - 5.0 g/dL 11/04/2019 12:07 AM [facility] Bilirubin Total 0.5 0.2 - 1.2 mg/dL 11/04/2019 12:07 AM [facility] Alkaline Phosphatase 87 40 - 150 Units/L 11/04/2019 12:07 AM [facility] ALT 15 0 - 55 Units/L 11/04/2019 12:07 AM [facility] AST 18 5 - 34 Units/L 11/04/2019 12:07 AM [facility] Anion Gap 14 8 - 18 11/04/2019 12:07 AM [facility] BUN/Creatinine Ratio 22 7 - 23 11/04/2019 12:07 AM [facility] Osmolality Calculated 309(H) 270 - 300 mOsm/kg 11/04/2019 12:07 AM [facility] Albumin/Globulin Ratio 0.6(L) 1.1 - 2.3 11/04/2019 12:07 AM [facility] eGFR 53(L) >60 mL/min/1.7 3 m2 11/04/2019 12:07 AM [facility] Blood BLOOD SPECIMEN / Unknown Lab Venipuncture / Unknown 11/03/2019 11:37 PM CDT 11/03/2019 11:45 PM T Kary Sheikh MD LAB - CHEMISTRY [facility] SAL [address] [id number] [phone] * (ABNORMAL) CBC W AUTO DIFFERENTIAL (11/03/2019 11:37 PM CDT) WBC 12.4(H) 3.5 - 10.5 10? 3 /uL 11/03/2019 11:48 PM [facility] RBC 4.15(L) 4.30 - 5.70 10? 6 /uL 11/03/2019 11:48 PM [facility] Hemoglobin 12.1(L) 13.5 - 17.5 g/dL 11/03/2019 11:48 PM [facility] Hematocrit 38.5(L) 39.0 - 50.0 % 11/03/2019 11:48 PM [facility] MCV 92.8 81.0 - 97.0 fL 11/03/2019 11:48 PM [facility] MCH 29.2 28.0 - 34.0 pg 11/03/2019 11:48 PM [facility] MCHC 31.4(L) 32.0 - 36.0 g/dL 11/03/2019 11:48 PM [facility] Platelet Count 235 150 - 400 10? 3 /uL 11/03/2019 11:48 PM [facility] RDW-SD 49.8 36.0 - 50.0 fL 11/03/2019 11:48 PM [facility] RDW-CV 14.7 11.2 - 14.8 % 11/03/2019 11:48 PM [facility] MPV 12.0 9.3 - 12.8 fL 11/03/2019 11:48 PM [facility] nRBC Absolute 0.00 0 10? 3 /uL 11/03/2019 11:48 PM [facility] nRBC Auto 0.0 0 /100 WBC 11/03/2019 11:48 PM [facility] Neutrophils % 73.7(H) 35.0 - 70.0 % 11/03/2019 11:48 PM [facility] Lymphocytes % 18.2(L) 19.7 - 55.1 % 11/03/2019 11:48 PM [facility] Monocytes % 6.1 3.0 - 15.0 % 11/03/2019 11:48 PM [facility] Eosinophils % 1.5 0.0 - 6.0 % 11/03/2019 11:48 PM [facility] Basophil % 0.3 0.0 - 1.5 % 11/03/2019 11:48 PM [facility] Neutrophils Absolute 9.1(H) 1.6 - 7.0 10? 3 /uL 11/03/2019 11:48 PM [facility] Lymphocyte Absolute 2.3 0.8 - 2.9 10? 3 /uL 11/03/2019 11:48 PM CDT [facility] Monocytes Absolute 0.75(H) 0.14 - 0.66 10? 3 /uL 11/03/2019 11:48 PM CDT [facility] Eosinophils Absolute 0.18 0.00 - 0.45 10? 3 /uL 11/03/2019 11:48 PM CDT [facility] Basophils Absolute 0.04 0.00 - 0.06 10? 3 /uL 11/03/2019 11:48 PM CDT [facility] Immature Granulocytes % 0.2 0.0 - 1.0 % 11/03/2019 11:48 PM CDT [facility] Blood BLOOD SPECIMEN / Unknown Lab Venipuncture / Unknown 11/03/2019 11:37 PM CDT 11/03/2019 11:45 PM CDT Kary Sheikh MD LAB - HEMATOLOGY ORD ERABLES [address] [id number] [phone] * EKG 12-LEAD (11/03/2019 10:17 PM CDT) Pathologist [facility] Ventricular Rate 61 BPM SL MUSE Atrial Rate 61 BPM [facility] MUSE P-R Interval 154 ms [facility] QRS Duration ms 104 ms [facility] Q-T Interval ms 464 ms [facility] QTC Calculation (Bezet) 467 ms [facility] M[facility] Calculated P [place] 33 degrees [facility] M[facility] Calculated R [place] 40 degrees [facility] M[facility] Calculated T [place] 40 degrees [facility] M[facility] Interpretation EKG NORMAL SINUS RHYTHM POSSIBLE LEFT ATRIAL ENLARGEMENT BORDERLINE ECG WHEN COMPARED WITH ECG OF 11-JUN-2019 00:22, NO SIGNIFICANT CHANGE WAS FOUND Confirmed by Luis Wylie ([id number]) on 11/06/2019 5:51:23 PM [facility] MUSE 11/03/2019 10:1 7 PM CDT 11/06/2019 5:51 PM CDT Kary Sheikh MD ECG ORDERABLES H MUSE documented in this encounter Visit Diagnoses Diagnosis Acute on chronic diastolic heart failure (HCC)- Primary Acute on chronic diastolic heart failure Near syncope Syncope and collapse Dysuria Gross hematuria LVH (left ventricular hypertrophy) due to hypertensive disease, with heart failure (HCC) Pulmonary hypertension (HCC) Other chronic pulmonary heart diseases Near syncope Syncope and collapse Essential hypertension LVH (left ventricular hypertrophy) due to hypertensive disease, with heart failure (HCC) MIRELLA (obstructive sleep apnea) Obstructive sleep apnea (adult) (pediatric) Chronic right heart failure (HCC) Chest pain Pulmonary hypertension (HCC) Other chronic pulmonary heart diseases Orthostasis Orthostatic hypotension documented in this encounter Administered Medications Inactive Administered Medications - up to 3 most recent administrations Medication Order MAR Action Action Date Dose Rate Site 0.9% NaCl injection 1-10 mL 1-10 mL, Intracatheter, PRN, Other, peripheral line flush, Starting on 11/03/19 at 2215, Until Tue11/07/19 at 1222, Flush peripheral IV catheter with 1-10 mL of normal saline before and after medications and prn to clear blood from the line or to verify patency. 0.9% NaCl injection 3 mL 3 mL, Intracatheter, EVERY 8 HOURS, First dose on 11/03/19 at 2300, Until Discontinued, Flush peripheral IV catheter with 3 mL of normal saline every 8 hours. $ Given 11/07/2019 5:50 AM CDT 3 mL $ Given 11/06/2019 8:12 PM CDT 3 mL $ Given 11/06/2019 6:26 AM CDT 3 mL acetaminophen (TYLENOL) tablet 650 mg 650 mg, Oral, EVERY 6 HOURS PRN, Mild Pain, Starting on 11/03/19 at 2216, Until 11/07/19 at 1222 $ Given 11/07/2019 5:53 AM CDT 650 mg $ Given 11/06/2019 8:10 PM CDT 650 mg $ Given 11/06/2019 11:18 AM CDT 650 mg allopurinol (ZYLOPRIM) tablet 100 mg 100 mg, Oral, 2 TIMES DAILY, First dose on 11/04/19 at 0900, Until Discontinued $ Given 11/07/2019 8:12 AM CDT 100 mg $ Given 11/06/2019 8:09 PM CDT 100 mg $ Given 11/06/2019 8:12 AM CDT 100 mg atorvastatin (LIPITOR) tablet 20 mg 20 mg, Oral, AT BEDTIME, First dose on 11/03/19 at 2330, Until Discontinued $ Given 11/06/2019 8:10 PM CDT 20 mg $ Given 11/05/2019 9:05 PM CDT 20 mg $ Given 11/04/2019 9:28 PM CDT 20 mg busPIRone (BUSPAR) tablet 10 mg 10 mg, Oral, 2 TIMES DAILY, First dose on 11/03/19 at 2330, Until Discontinued $ Given 11/07/2019 8:12 AM CDT 10 m g $ Given 11/06/2019 8:10 PM CDT 10 mg $ Given 11/06/2019 8:12 AM CDT 10 mg docusate sodium (COLACE) capsule 100 mg 100 mg, Oral, DAILY, First dose on 11/03/19 at 2245, Until Discontinued $ Given 11/07/2019 8:12 AM CDT 100 mg $ Given 11/06/2019 8:13 AM CDT 100 mg $ Given 11/04/2019 12:41 AM CDT 100 mg famotidine (PEPCID) tablet 20 mg 20 mg, Oral, 2 TIMES DAILY, First dose on 11/03/19 at 2330, Until Discontinued $ Given 11/07/2019 8:12 AM CDT 20 m g $ Given 11/06/2019 8:10 PM CDT 20 mg $ Given 11/06/2019 8:12 AM CDT 20 mg gabapentin (NEURONTIN) capsule 300 mg 300 mg, Oral, AT BEDTIME, First dose on 11/04/19 at 2100, Until Discontinued $ Given 11/06/2019 8:10 PM CDT 300 mg $ Given 11/05/2019 9:05 PM CDT 300 mg $ Given 11/04/2019 9:28 PM CDT 300 mg heparin injection 5,000 Units 5,000 Units, Subcutaneous, EVERY 8 HOURS, First dose on 11/03/19 at 2300, Until Discontinued $ Given 11/04/2019 7:18 AM CDT 5,000 Units Left Arm $ Given 11/04/2019 12:41 AM CDT 5,000 Units Abdominal Tissue iopamidol (ISOVUE 370) 76 % contrast Intravenous, CONTRAST ONCE, Starting on 11/05/19 at 1116, Until Tue11/07/19 at 1115 $ Given - Contrast 11/05/2019 12:55 PM CDT 100 mL ondansetron (ZOFRAN) injection 4 mg 4 mg, Intravenous, EVERY 6 HOURS PRN, Nausea/Vomiting, Starting on 11/03/19 at 2241, Until Tue11/07/19 at 1222, Administer over 2 to 5 minutes. patiromer (VELTASSA) packet 16.8 g 16.8 g, Oral, DAILY WITH FOOD, First dose on Tue11/04/19 at 0900, Until Discontinued, Measure 1/3 cup of water. Pour half [...] other oral medications 3 hours before or after.? $ Given 11/04/2019 9:10 AM CDT 16.8 g polyethylene glycol 3350 (MIRALAX) packet 17 g 17 g, Oral, DAILY, First dose on 11/03/19 at 2245, Until Discontinued, Mix in 8 ounces of water, juice, soda, coffee or tea prior to administration $ Given 11/07/2019 8:12 AM CDT 17 g $ Given 11/06/2019 8:13 AM CDT 17 g $ Given 11/05/2019 8:07 AM CDT 17 g documented in this encounter Active and Recently Administered Medications Times are shown in CDT. Scheduled Medication Order 11/05/2019 11/06/2019 11/07/2019 0.9% NaCl injection 3 mL(Linked Group 1) 3 mL, Intracatheter, EVERY 8 HOURS, First dose on 11/03/19 at 2300, Until Discontinued, Flush peripheral IV catheter with 3 mL of normal saline every 8 hours. 0440 ($ Given - Provider: Damion Ty RN)1356 (Not Administered - Provider: Bella Urias RN - Reason: See Comments)2105 ($ Given - Provider: Meg Dudley RN) 0626 ($ Given - Provider: Meg Dudely RN)1426 (Not Administered - Provider: Cecy Cazares RN - Reason: Patient sleeping)2011 ($ Given - Provider: Shorty Persaud RN) 0550 ($ Given - Provider: Shorty Persaud RN) allopurinol (ZYLOPRIM) tablet 100 mg 100 mg, Oral, 2 TIMES DAILY, First dose on 11/04/19 at 0900, Until Discontinued 806 ($ Given - Provider: Bella Urias RN)2104 ($ Given - Provider: Meg Dudley RN) 811 ($ Given - Provider: Cecy Cazares RN)2008 ($ Given - Provider: Shorty Persaud RN) 811 ($ Given - Provider: Lakesha Galindo, AVA) atorvastatin (LIPITOR) tablet 20 mg 20 mg, Oral, AT BEDTIME, First dose on 11/03/19 at 2330, Until Discontinued 2104 ($ Given - Provider: Meg Dudley RN) 2009 ($ Given - Provider: Shorty Persaud RN) busPIRone (BUSPAR) tablet 10 mg 10 mg, Oral, 2 TIMES DAILY, First dose on 11/03/19 at 2330, Until Discontinued 806 ($ Given - Provider: Bella Urias RN)2104 ($ Given - Provider: Meg Dudley RN) 811 ($ Given - Provider: Cecy Cazares RN)2009 ($ Given - Provider: Shorty Persaud RN) 811 ($ Given - Provider: Lakesha Galindo, AVA) docusate sodium (COLACE) capsule 100 mg 100 mg, Oral, DAILY, First dose on 11/03/19 at 2245, Until Discontinued 806 (Not Administered - Provider: Bella Urias RN - Reason: Refused-Patient) 812 ($ Given - Provider: Cecy Cazares RN) 811 ($ Given - Provider: Lakesha Galindo, AVA) famotidine (PEPCID) tablet 20 mg 20 mg, Oral, 2 TIMES DAILY, First dose on 11/03/19 at 2330, Until Discontinued 806 ($ Given - Provider: Bella Urias RN)2104 ($ Given - Provider: Meg Dudley RN) 811 ($ Given - Provider: Cecy Cazares RN)2009 ($ Given - Provider: Shorty Persaud, RN) 811 ($ Given - Provider: Lakesha Galindo, RN) gabapentin (NEURONTIN) capsule 300 mg 300 mg, Oral, AT BEDTIME, First dose on 11/04/19 at 2100, Until Discontinued 2105 ($ Given - Provider: Meg Dudley, RN) 2009 ($ Given - Provider: Shorty Persaud, RN) iopamidol (ISOVUE 370) 76 % contrast () Intravenous, CONTRAST ONCE, Starting on 11/05/19 at 1116, Until 11/07/19 at 1115 1255 ($ Given - Contrast - Provider: Tiffani Parra, RT(R)) polyethylene glycol 3350 (MIRALAX) packet 17 g 17 g, Oral, DAILY, First dose on 11/03/19 at 2245, Until Discontinued, Mix in 8 ounces of water, juice, soda, coffee or tea prior to administration 0807 ($ Given - Provider: Bella Urias RN) 08 ($ Given - Provider: Cecy Cazares RN) 08 ($ Given - Provider: Lakesha Galindo, RN) PRN Medication Order 11/05/2019 11/06/2019 11/07/2019 0.9% NaCl injection 1-10 mL(Linked Group 1) 1-10 mL, Intracatheter, PRN, Other, peripheral line flush, Starting on 11/03/19 at 2215, Until Tue11/07/19 at 1222, Flush peripheral IV catheter with 1-10 mL of normal saline before and after medications and prn to clear blood from the line or to verify patency. acetaminophen (TYLENOL) tablet 650 mg 650 mg, Oral, EVERY 6 HOURS PRN, Mild Pain, Starting on 11/03/19 at 2216, Until 11/07/19 at 1222 1118 ($ Given - Provider: Cecy Cazares RN)2009 ($ Given - Provider: Shorty Persaud, RN) 05 ($ Given - Provider: Shorty Persaud, RN) ondansetron (ZOFRAN) injection 4 mg 4 mg, Intravenous, EVERY 6 HOURS PRN, Nausea/Vomiting, Starting on 11/03/19 at 2241, Until 11/07/19 at 1222, Administer over 2 to 5 minutes. Linked Groups Order Group 1: SALINE LOCK, INSERT AND MAINTAIN (COMPLETED) Routine, CONTINUOUS, Starting on 11/03/19 at 2230, Until Specified, New collection And 0.9% NaCl injection 3 mLJump to med 3 mL, Intracatheter, EVERY 8 HOURS, First dose on 11/03/19 at 2300, Until Discontinued, Flush peripheral IV catheter with 3 mL of normal saline every 8 hours. And 0.9% NaCl injection 1-10 mLJump to med 1-10 mL, Intracatheter, PRN, Other, peripheral line flush, Starting on 11/03/19 at 2215, Until 11/07/19 at 1222, Flush peripheral IV catheter with 1-10 mL of normal saline before and after medications and prn to clear blood from the line or to verify patency. documented in this encounter Additional Health Concerns Infection Onset Date Last Indicated Resolved Time COVID-19 Under Investigation 11/03/2019 11/03/2019 11/04/2019 1:40 PM CDT documented as of this encounter Care Teams Assemblies And Installations Inspector Relationship Specialty Start Date End Date Natasha Bates PA-C [address] [place] [address] PCP - General 03/21/19 06/20/23 documented as of this encounter
--- OUTSIDE RECORDS SUMMARY | 2024-05-22 05:43 | XMS_ITS | Encounter Summary ---
Author Organization [facility] Health Address [address] [place] [address] Care Team Providers Care Field Pipe Lines Supervisor Name Role Phone Natasha Bates PA-C Primary Care Provider + Encounter Details Date Type Department Care Team (Latest Contact Info) Description 08/14/2019 Travel Social History Tobacco Use Types Packs/Day [...] or have serious hearing difficult y? No 06/13/2019 Is person blind or have serious difficulty seein g? No 06/13/2019 Does person have serious dif ficulty walking/climbing stairs? No 06/13/2019 Does person have difficulty dressing/bathing? No 06/13/2019 Does person have difficulty doing errands alone? No 06/13/2019 Cognitive Status Response Date of Assessm ent Does person have difficulty concentrating/remembering/making decisions? No 06/13/2019 documented as of this encounter Plan of Treatment Not on file documented as of this encounter Visit Diagnoses Not on filedocumented in this encounter Care Teams Field Pipe Lines Supervisor Relationship Specialty Start Date End Date Natasha Bates PA-C [address] [place] [address] PCP - General 03/21/19 06/20/23 documented as of this encounter
--- OUTSIDE RECORDS SUMMARY | 2024-05-22 05:43 | XMS_ITS | Encounter Summary ---
Author Organization [facility] Health Address [address] [address] Care Team Providers Care Au Pair Name Role Phone Natasha Bates PA-C Primary Care Provider + Encounter Details Date Type Department Care Team (Late st Contact Info) Description 04/26/2019 Orders Only [facility] - Nephrology [address] [place] [address], [place] [phone] Gerardo Zavala MD [address] [place] [address] [place] [id number] Social History Tobacco Use Types Packs/Day Years [...] on filedocumented in this encounter Care Teams Au Pair Relationship Specialty Start Date End Date Natasha Bates PA-C [address] [place] [address] PCP - General 03/21/19 06/20/23 documented as of this encounter
--- OUTSIDE RECORDS SUMMARY | 2024-05-22 05:43 | XMS_ITS | Encounter Summary ---
Author Organization [facility] Health Address [address] [facility] [address] [facility] [place] [address] Care Team Providers Care Casino Investigator Name Role Phone Natasha Bates PA-C Primary Care Provider + Reason for Visit * Reason Comments Follow-up Encounter Details Date Type Department Care Team (Late st Contact Info) Description 05/21/2019 Telephone [facility] - Nephrology [address] [place] [address], [place] [phone] Letitia Vidal, RN Follow-up Social History Tobacco [...] Progress Notes * Letitia Vidal, RN - 05/21/2019 3:41 PM CST Message to patient; appointment scheduled for 05/30/19 at 210 pm. Labs needs to be done prior to clinic visit. F DIETITIAN documented in this encounter Plan of Treatment Not on file documented as of this encounter Visit Diagnoses Not on filedocumented in this encounter Care Teams Casino Investigator Relationship Specialty Start Date End Date Natasha Bates PA-C [address] [place] [address] PCP - General 03/21/19 06/20/23 documented as of this encounter
--- OUTSIDE RECORDS SUMMARY | 2024-05-22 05:43 | XMS_ITS | Encounter Summary ---
Author Organization [facility] Health Address [address] [facility] [place] [address] Care Team Providers Care Sterile Tech Name Role Phone Natasha Bates PA-C Primary Care Provider + Encounter Details Date Type Department Care Team (Late st Contact Info) Description 10/12/2019 Orders Only [facility] - Nephrology [address] [place] [address], [place] [address] Gerardo Zavala MD [address] [place] [address] [place] [address] Essential hypertension ; CRD (chronic renal disease), [...] Procedure Name Priority Date/Time Associated Diagnosis Comments ALDOSTERONE BLOOD Routine 10/30/2019 1:4 9 PM CDT Essential hypertension CRD (chronic renal disease), stage II documented in this encounter Results * ALDOSTERONE BLOOD (10/30/2019 1:49 PM CDT) Aldosterone 2.1 0.0 - 30.0 ng/dL [facility] INSURANCE BILL Comment: This test was developed and its performance characteristics determined by [facility]. It has not been cleared or approved by the Food and Drug Administration. Blood BLOOD SPECIMEN / Unknown 10/30/2019 1:49 PM CDT 10/30/2019 Narrative Resulting Agency Comment Lab Testing performed at: [address] ??[facility] [id number] Gerardo Oneal MD LAB - CH EMISTRY ORDERABLES [facility] INSURANCE BILL [address] [place] [address] documented in this encounter Visit Diagnoses Diagnosis Essential hypertension- Primary CRD (chronic renal disease), stage II Chronic kidney disease, Stage II (mild) documented in this encounter Care Teams Sterile Tech Relationship Specialty Start Date End Date Natasha Bates PA-C [address] [place] [phone] PCP - General 03/21/19 06/20/23 documented as of this encounter
--- OUTSIDE RECORDS SUMMARY | 2024-05-22 05:43 | XMS_ITS | Encounter Summary ---
Author Organization [facility] Health Address [address] [place] [address] Care Team Providers Care Cnc Set Up Operator Name Role Phone Natasha Bates PA-C Primary Care Provider + Reason for Visit * Reason Comments Refill Request [email or web address] Encounter Details Date Type Department Care Team (Late st Contact Info) Description 08/23/2019 Refill [facility] - Nephrology [address] [place] [address], [place] [address] Gerardo Zavala MD [address] [place] [address] [place] [phone] Refill Request ([email or web address]) Social History Tobacco Use [...] on filedocumented in this encounter Care Teams Cnc Set Up Operator Relationship Specialty Start Date End Date Natasha Bates PA-C [address] [place] [address] PCP - General 03/21/19 06/20/23 documented as of this encounter
--- OUTSIDE RECORDS SUMMARY | 2024-05-22 05:43 | XMS_ITS | Encounter Summary ---
Author Organization [facility] Health Address [address] [facility] [place] [address] Care Team Providers Care Fishing Tool Operator Name Role Phone Natasha Bates PA-C Primary Care Provider + Reason for Visit * Reason Comments Follow-up Encounter Details Date Type Department Care Team (Late st Contact Info) Description 08/23/2019 Telephone [facility] - Nephrology [address] [place] [address], [place] [address] Letitia Vidal, RN Follow-up Social [...] No 06/13/2019 documented as of this encounter Progress Notes * Letitia Vidal, RN - 08/23/2019 9:21 AM CDT Spoke with patient. Informed refill sent to pharmacy listed for [facility]. Instructed to get labs done prior to scheduled appointment 10/10/19. Patient confirmed scheduled appointment and will get labsdone prior to clinic visit at [facility]. No concerns/questions asked at end of telephone conversation. documented in this encounter Plan of Treatment Not on file documented as of this encounter Visit Diagnoses Not on filedocumented in this encounter Care Teams Fishing Tool Operator Relationship Specialty Start Date End Date Natasha Bates PA-C [facility] [place] [phone] PCP - General 03/21/19 06/20/23 documented as of this encounter
--- OUTSIDE RECORDS SUMMARY | 2024-05-22 05:43 | XMS_ITS | Encounter Summary ---
Author Organization [facility] Address [address] [place] [address] Care Team Providers Care Assistant Infant Toddler Teacher Name Role Phone Natasha Bates PA-C Primary Care Provider + Encounter Details Date Type Department Care Team (Latest Contact Info) Description 04/18/2019 3:00 PM DOT COMPLIANCE COORDINATOR - 04/18/2019 11:59 PM [facility] Hospital Encounter SL LAB DRAW STATION [address] [place] [phone] Gerardo Zavala MD [address] [facility] [place] [address] [place] [address] Discharge Disposition: Home or Self Care Social [...] on file documented as of this encounter Medications at Time of Discharge Medication Sig Dispensed Refills Start Date End Date amitriptyline (ELAVIL) 25 MG tablet Take 25 mg by mouth at bedtime 11/03/2019 amoxicillin (AMOXIL) 500 MG tablet Take 500 mg by mouth every 8 hours 06/13/2019 Biotin 5 MG 01/01/2020 busPIRone (BUSPAR) 5 MG tablet Take 10 mg by mouth 2 times daily 03/18/2020 dexlansoprazole (DEXILANT) 60 MG capsule Take 60 mg by mouth once daily 11/03/2019 furosemide (LASIX) 20 MG tablet Take 20 mg by mouth once daily 07/06/2019 ISOSORBIDE MONONITRATE PO Take 30 mg by mouth 2 times daily 06/13/2019 metoprolol succinate XL 24hr (TOPROL XL) 50 MG tablet Take 50 mg by mouth 2 times daily 06/13/2019 pravastatin (PRAVACHOL) 20 MG tablet Take 20 mg by mouth at bedtime 07/06/2019 documented as of this encounter Plan of Treatment Not on file documented as of this encounter Procedures Procedure Name Priority Date/Time Associated Diagnosis Comments CBC W AUTO DIFFERENTIAL Routine 04/18/2019 3:05 PM DOT COMPLIANCE COORDINATOR Kidney dysfunction RENAL FUNCTION PANEL Routine 04/18/2019 3:05 PM DOT COMPLIANCE COORDINATOR Kidney dysfunction POTASSIUM URINE RANDOM Routine 04/18/2019 3:05 PM DOT COMPLIANCE COORDINATOR Hyperpotassemia Kidney dysfunction CHLORIDE URINE RANDOM Routine 04/18/2019 3:05 PM DOT COMPLIANCE COORDINATOR Kidney dysfunction Hyperpotassemia documented in this encounter Results * CHLORIDE URINE RANDOM (04/18/2019 3:05 PM DOT COMPLIANCE COORDINATOR) Chloride Random Urine 85 Not Established mmol/L 04/18/2019 4:24 PM DOT COMPLIANCE COORDINATOR [facility] Urine URINE SPECIMEN OBTAINED BY CLEAN CATCH PROCEDURE / Unknown Collection / Unknown 04/18/2019 3:05 PM DOT COMPLIANCE COORDINATOR 04/18/2019 3:54 PM DOT COMPLIANCE COORDINATOR Gerardo Oneal MD LAB - UR INE CHEMISTRY ORDERABLES [address] [phone] * POTASSIUM URINE RANDOM (04/18/2019 3:05 PM DOT COMPLIANCE COORDINATOR) Potassium Urine 40 Not Established mmol/L 04/18/2019 4:24 PM DOT COMPLIANCE COORDINATOR [facility] Urine URINE SPECIMEN OBTAINED BY CLEAN CATCH PROCEDURE / Unknown Collection / Unknown 04/18/2019 3:05 PM DOT COMPLIANCE COORDINATOR 04/18/2019 3:54 PM DOT COMPLIANCE COORDINATOR Gerardo Nam Oneal MD LAB - UR INE CHEMISTRY ORDERABLES [facility] [address] [phone] * (ABNORMAL) RENAL FUNCTION PANEL (04/18/2019 3:05 PM DOT COMPLIANCE COORDINATOR) BUN 24 7 - 26 mg/dL 04/18/2019 4:13 PM [facility] Creatinine 1.3(H) 0.6 - 1.2 mg/dL 04/18/2019 4:13 PM [facility] Sodium 144 136 - 145 mmol/L 04/18/2019 4:13 PM [facility] Potassium 5.4(H) 3.5 - 4.5 mmol/L 04/18/2019 4:13 PM [facility] Chloride 104 98 - 107 mmol/L 04/18/2019 4:13 PM [facility] CO2 32(H) 22 - 29 mmol/L 04/18/2019 4:13 PM [facility] Glucose 87 70 - 115 mg/dL 04/18/2019 4:13 PM [facility] Albumin 2.9(L) 3.4 - 5.0 g/dL 04/18/2019 4:13 PM [facility] Calcium 9.4 8.4 - 10.2 mg/dL 04/18/2019 4:13 PM [facility] Phosphorus 3.0 2.3 - 4.7 mg/dL 04/18/2019 4:13 PM [facility] Anion Gap 13 8 - 18 04/18/2019 4:13 PM [facility] BUN/Creatinine Ratio 18 7 - 23 04/18/2019 4:13 PM [facility] Osmolality Calculated 301(H) 270 - 300 mOsm/kg 04/18/2019 4:13 PM [facility] eGFR 58(L) >60 mL/min/1.7 3 m2 04/18/2019 4:13 PM [facility] Blood BLOOD SPECIMEN / Unknown Lab Venipuncture / Unknown 04/18/2019 3:05 PM DOT COMPLIANCE COORDINATOR 04/18/2019 3:15 PM DOT COMPLIANCE COORDINATOR Gerardo Oneal MD LAB - CH EMISTRY ORDERABLES [facility] [address] [place] [address] * (ABNORMAL) CBC WITH DIFFERENTIAL (04/18/2019 3:05 PM DOT COMPLIANCE COORDINATOR) WBC 13.7(H) 3.5 - 10.5 10? 3 /uL 04/18/2019 3:49 PM [facility] RBC 4.66 4.30 - 5.70 10? 6 /uL 04/18/2019 3:49 PM [facility] Hemoglobin 13.2(L) 13.5 - 17.5 g/dL 04/18/2019 3:49 PM [facility] Hematocrit 42.9 39.0 - 50.0 % 04/18/2019 3:49 PM [facility] MCV 92.1 81.0 - 97.0 fL 04/18/2019 3:49 PM [facility] MCH 28.3 28.0 - 34.0 pg 04/18/2019 3:49 PM [facility] MCHC 30.8(L) 32.0 - 36.0 g/dL 04/18/2019 3:49 PM [facility] Platelet Count 263 150 - 400 10? 3 /uL 04/18/2019 3:49 PM [facility] RDW-SD 49.1 36.0 - 50.0 fL 04/18/2019 3:49 PM [facility] RDW-CV 14.6 11.2 - 14.8 % 04/18/2019 3:49 PM [facility] MPV 12.0 9.3 - 12.8 fL 04/18/2019 3:49 PM [facility] nRBC Absolute 0.00 0 10? 3 /uL 04/18/2019 3:49 PM [facility] nRBC Auto 0.0 0 /100 WBC 04/18/2019 3:49 PM [facility] Neutrophils % 60.3 35.0 - 70.0 % 04/18/2019 3:49 PM [facility] Lymphocytes % 27.2 19.7 - 55.1 % 04/18/2019 3:49 PM [facility] Monocytes % 7.4 3.0 - 15.0 % 04/18/2019 3:49 PM [facility] Eosinophils % 4.1 0.0 - 6.0 % 04/18/2019 3:49 PM [facility] Basophil % 0.6 0.0 - 1.5 % 04/18/2019 3:49 PM [facility] Neutrophils Absolute 8.3(H) 1.6 - 7.0 10? 3 /uL 04/18/2019 3:49 PM [facility] Lymphocyte Absolute 3.7(H) 0.8 - 2.9 10? 3 /uL 04/18/2019 3:49 PM [facility] Monocytes Absolute 1.02(H) 0.14 - 0.66 10? 3 /uL 04/18/2019 3:49 PM [facility] Eosinophils Absolute 0.56(H) 0.00 - 0.45 10? 3 /uL 04/18/2019 3:49 PM [facility] Basophils Absolute 0.08(H) 0.00 - 0.06 10? 3 /uL 04/18/2019 3:49 PM [facility] Immature Granulocytes % 0.4 0.0 - 1.0 % 04/18/2019 3:49 PM [facility] Blood BLOOD SPECIMEN / Unknown Lab Venipuncture / Unknown 04/18/2019 3:05 PM DOT COMPLIANCE COORDINATOR 04/18/2019 3:15 PM DOT COMPLIANCE COORDINATOR Gerardo Oneal MD LAB - HE MATOLOGY ORDERABLES [facility] [address] [place] [address] documented in this encounter Visit Diagnoses Diagnosis Kidney dysfunction Unspecified disorder of kidney and ureter Hyperpotassemia documented in this encounter Care Teams Assistant Infant Toddler Teacher Relationship Specialty Start Date End Date Natasha Bates PA-C [address] [place] [phone] PCP - General 03/21/19 06/20/23 documented as of this encounter
--- OUTSIDE RECORDS SUMMARY | 2024-05-22 05:43 | XMS_ITS | Encounter Summary ---
Author Organization [facility] Address [address] [facility] [place] [address] Care Team Providers Care Convenience Store Clerk Name Role Phone Natasha Bates PA-C Primary Care Provider + Reason for Visit * Reason Comments Med Question Encounter Details Date Type Department Care Team (Late st Contact Info) Description 04/18/2019 Telephone [facility] [phone] [place] [address] Radha Duron RN Med Question Social History Tobacco Use Types Packs/Day Years [...] as of this encounter Progress Notes * Radha Duron RN - 04/18/2019 4:15 PM CST Pt contacts triage line asking about the veltassa script that Dr Shipley told him he would write. Informed pt it has not been written yet. Also informed pt that most likely he will not be able to afford it and to call back on Mon if this is the case. Pt will not have insurance until May 23. TENDER documented in this encounter Plan of Treatment Not on file documented as of this encounter Visit Diagnoses Not on filedocumented in this encounter Care Teams Convenience Store Clerk Relationship Specialty Start Date End Date Natasha Bates PA-C [address] [place] [address] PCP - General 03/21/19 06/20/23 documented as of this encounter
--- OUTSIDE RECORDS SUMMARY | 2024-05-22 05:43 | XMS_ITS | Encounter Summary ---
Author Organization [facility] Address [address] [facility] [place] [address] Care Team Providers Care Mash Filter Press Operator Name Role Phone Natasha Bates PA-C Primary Care Provider + Encounter Details Date Type Department Care Team (Late st Contact Info) Description 05/11/2019 Orders Only [facility] [address] [facility] [address] [place] [address] Tylor Salazar MD [address] [facility] [address] [place] [address] Establishing care with new doctor, encounter for Social History Tobacco Use Types Packs/Day Years [...] as of this encounter Visit Diagnoses Diagnosis Establishing care with new doctor, encounter for documented in this encounter Care Teams Mash Filter Press Operator Relationship Specialty Start Date End Date Natasha Bates PA-C [address] [place] [address] PCP - General 03/21/19 06/20/23 documented as of this encounter
--- OUTSIDE RECORDS SUMMARY | 2024-05-22 05:43 | XMS_ITS | Encounter Summary ---
Author Organization [facility] Address [address] [place] [address] Care Team Providers Care Stud Sheep Farmer Name Role Phone Natasha Bates PA-C Primary Care Provider + Reason for Visit * Reason Comments Follow-up Encounter Details Date Type Department Care Team (Late st Contact Info) Description 08/14/2019 Telephone [facility] - Nephrology [address] [place] [address], [place] [address] Letitia Vidal, RN Follow-up Social [...] Progress Notes * Letitia Vidal, RN - 08/14/2019 10:34 AM CDT Spoke with patient. Appointment scheduled for 08/15/19 has been cancelled due to COVD-19 precautions. Patient agreeable to rescheduling of appointment to 10/10/[address] Nelson. documented in this encounter Plan of Treatment Not on file documented as of this encounter Visit Diagnoses Not on filedocumented in this encounter Care Teams Stud Sheep Farmer Relationship Specialty Start Date End Date Natasha Bates PA-C [address] [place] [phone] PCP - General 03/21/19 06/20/23 documented as of this encounter
--- OUTSIDE RECORDS SUMMARY | 2024-05-22 05:43 | XMS_ITS | Encounter Summary ---
Author Organization [facility] Address [address] [facility] [place] [address] Care Team Providers Care Curb Attendant Name Role Phone Natasha Bates PA-C Primary Care Provider + Reason for Visit * Reason Comments Hospital Discharge Encounter Details Date Type Department Care Team (Late st Contact Info) Description 07/06/2019 4:00 PM CUSTOMER ADVISOR Office Visit [facility] Cardiology [address] [facility] [address] [place] [address] Tylor Salazar MD [address] [facility] [address] [place] [address] Chronic heart failure with preserved ejection fraction (HCC) (Primary Dx); Class 3 severe obesity due to excess calories without serious comorbidity with body mass index (BMI) of 45.0 to 49.9 in adult (HCC); Essential hypertension; LVH (left ventricular hypertrophy) due to hypertensive disease, with heart failure (HCC); Mixed hyperlipidemia; Chronic right heart failure (HCC); MIRELLA (obstructive sleep apnea) Social History Tobacco Use Types Packs/Day Years [...] Sign Reading Time Taken Comments Blood Pressure 110/66 07/06/2019 4:02 PM CUSTOMER ADVISOR Pulse 72 07/06/2019 4:02 PM CUSTOMER ADVISOR Temperature - - Respiratory Rate - - Oxygen Saturation - - Inhaled Oxygen Concentration - - Weight 162.4 kg (358 lb) 07/06/2019 4:02 PM CUSTOMER ADVISOR Height 185.4 cm (6' 1 ) 07/06/2019 4:02 PM CUSTOMER ADVISOR Body Mass Index 47.23 07/06/2019 4:02 PM CUSTOMER ADVISOR documented in this encounter Functional Status Functional [...] No 06/13/2019 documented as of this encounter Patient Instructions * Patient Instructions* Tylor Salazar MD - 07/06/2019 5:26 PM CUSTOMER ADVISOR Water pill (fursemide) 20mg twice a day Stop metoprolol and start Carvedilol 12.5mg twice a day Lab work in one week Return to clinic 2 months OMER ADVISOR documented in this encounter Progress Notes * Yonas Stratton MD - 07/06/2019 5:17 PM CST ATTENDING PHYSICIAN NOTE Patient seen and examined with the resident. I confirm the history, exam, assessment and plan. In addition I note: Chief complaint: HTN, HL, CKD not near HD History: Obese and HTN, LVH/HL. Mild CRF. Cath 10 yrs ago and nonobstructive. ECHO also done at [facility]. Followed by PCP. LUZ 1-2 flights. Edema. Bariatric surgery to be considered. Sleep study planned. No FH of CAD. No CP. Lasix 20 mg QD. Edema for yrs. ImDur for 10 years. ? After bout of CP 10 yrs ago. On BB and statin. Under 400 lbs. BP up. ECG with sinus rhythm. No LVH. Compression stockings. No recent fever chills. 07/06/19 Admitted for volume overload. ECHO with HFpEF. ECHO with severe LV diastolic dysfunction. PV to MV A duration difference > 80 msec. Very high filling pressure. Better now. Social History Socioeconomic History Marital status: Single Spouse name: Not on file Number of children: Not on file Years of education: Not on file Highest education level: Not on file Occupational History Not on file Tobacco Use Smoking status: Never Smoker Smokeless tobacco: Never Used Substance and Sexual Activity Alcohol use: Yes Comment: maybe 4 drinks a month Drug use: Never Sexual activity: Not on file Other Topics Concerns: Not on file Social History Narrative Not on file family history is not on file. No Known Allergies No past medical history on file. A full 12 point review of systems was performed and was otherwise negative besides what was mentioned in the HPI. Exam: BP 164/84 Pulse 78 Ht 6' 2 (1.88 m) Wt 370 lb (167.8 kg) SpO2 94% BMI 47.51 kg/m2 NAD. HEENT: neck supple. Atraumatic. Cor: RRR. No JVD. S4 no murmur .No S3 Resp: clear bilaterally. GI: soft. NT. Ext: 1-2+ edema Medications were reviewed; please see the resident's note for complete list. Data Review: pertinent lab and cardiac data reviewed Lab Results: Recent Labs Component Name 06/13/19 0355 06/11/19222806/10/192256 WBC 11.1* 11.7* 15.2* HGB 12.6* 12.2* 13.3* HCT 40.8 39.5 43.1 PLTCOUNT 239 239 276 Recent Labs Component Name 07/05/19 1231 06/13/19 0355 06/12/19 0315 SODIUM 143 - - POTASSIUM 5.8* 3.9 3.6 CHLORIDE 103 - - CO2 28 29 27 BUN 26* 21 18 CREATININE 1.28* 1.5* 1.2 GLUCOSE 92 - - CALCIUM 9.6 9.2 9.3 No results for input(s): INR, PT, PTT in the last 53856 hours. Recent Labs Component Name 06/11/19222806/10/19 2257 ALKPHOS 81 80 ALT 18 21 AST 18 28 No results for input(s): TSH in the last 80878 hours. No results for input(s): CKMB, TROPONIN, MYOGLOBIN in the last 92349 hours. Recent Labs Component Name 06/11/19 0215 FIO2 27.0 Recent Labs Component Name 06/12/19 0315 CHOL 129 HDL 39* TRIG 72 LDLCALC 76 ECG reviewed: Sinus normal ECG. CXR reviewed: none Assessment/Plan: Obese and HTN, LVH/HL. Mild CRF. Cath 10 yrs ago and nonobstructive. ECHO also done at [facility]. Followed by PCP. LUZ 1-2 flights. Edema. Bariatric surgery to be considered. Sleep study planned. No FH of CAD. No CP. Lasix 20 mg QD. Edema for yrs. ImDur for 10 years. ? After bout of CP 10 yrs ago. On BB and statin. Under 400 lbs. BP up. ECG with sinus rhythm. No LVH. Compression stockings. No recent fever chills. 07/06/19 Admitted for volume overload. ECHO with HFpEF. ECHO with severe LV diastolic dysfunction. PV to MV A duration difference > 80 msec. Very high filling pressure. Better now. No Dobi ECHO. CT if nondiagnostic. Headed for bariatric surgery. Final plans for statin after lipid panel. K issues. No ACEI. Needs vasodilation. Switch metoprolol to coreg 12.5 mg bid. Follow status, weight, vitals and edema, Titrate meds prn. Keep K > 4, Mg > 2, SaO2 > 92% and Hgb > 9. FU in 4 weeks. Please see the resident's note for further details. Yonas Stratton MD, F.A.C.C. mechanical press operator 05/11/2019 2:00 PM OMER ADVISOR * Tylor Salazar MD - 07/06/2019 4:02 PM CST [facility] History Of Present Illness: Howie Delaney is a 53 year old with CKD, HTN, morbid obesity, HLD who presents to [facility] care. SOB with 1-2 flights. Sleep study ordered. Remote history of cardiac catherization 10 years ago at [facility], per patient report. No chest pain, chest discomfort, light headedness/dizziness, palpitations, claudications, edema, orthopnea or PND. In the interm, patient hospitalized with HFpEF (LUZ with 50-100 feet) that improved with IV fursemide (patient mistakingly taking 10mg furosemide instead of 20mg BID). Lexiscan negative. Still fatigued since hospitalization. Denies chest discomfort. Baseline 3-4 city blocks. Still some LUZ. FHx: -HTN SHx: -Tobacco: Denies -EtoH: Occasional -Illicits: Denies Review of Systems: As per HPI. Past Medical/Surgical History: Past Medical History: Diagnosis Date ??? HTN (hypertension) ??? Kidney disease ??? MIRELLA (obstructive sleep apnea) 05/13/2019 No past surgical history on file. Family History: No family history on file. Social History: Social History Tobacco Use ??? Smoking status: Never Smoker ??? Smokeless tobacco: Never Used Substance Use Topics ??? Alcohol use: Yes Comment: maybe 4 drinks a month ??? Drug use: Never Home Medications: Current Outpatient Medications Medication Sig Dispense Refill ??? amitriptyline (ELAVIL) 25 MG tablet Take 25 mg by mouth at bedtime ??? Biotin 5 MG ??? busPIRone (BUSPAR) 5 MG tablet Take 10 mg by mouth 2 times daily ??? dexlansoprazole (DEXILANT) 60 MG capsule Take 60 mg by mouth once daily ??? furosemide (LASIX) 20 MG tablet Take 20 mg by mouth once daily ??? isosorbide mononitrate CR 24hr (IMDUR) 30 MG tablet Take 1 tablet by mouth once daily for 30 days 30 tablet 0 ??? metoprolol succinate XL 24hr (TOPROL XL) 50 MG tablet Take 1 tablet by mouth once daily 30 tablet 1 ??? patiromer (VELTASSA) 8.4 g packet Take 1 packet by mouth daily with food Measure 1/3 cup of water. Pour half into a glass, add Veltassa and stir. Add the remaining half and stir. The mixture willlook cloudy. Add more water to the mixture as needed for desired consistency. Drink immediately. Ifpowder remains in the glass after drinking, add more water, stir and drink immediately. Repeat as needed. Avoid taking other oral medications 3 hours before or after. 30 packet 1 ??? pravastatin (PRAVACHOL) 20 MG tablet Take 20 mg by mouth at bedtime No current facility-administered medications for this visit. Allergies: No Known Allergies OBJECTIVE: Vitals: 07/06/19 1602 Weight: (!) 358 lb (162.4 kg) Height: 6' 1 (1.854 m) Body mass index is 47.23 kg/m??. PHYSICAL EXAM: General: Morbidly Obese, Alert and Oriented to person, place, time and situation, no acute distress Eyes: Anicteric sclerae, moist conjunctiva Neck: Unable to assess JVD. Trachea midline. Heart: RRR, Normal S1 and S2, No S3/S4. No murmurs appreciated. Respiratory: Normal breath sounds and effort, no wheezes or rhonchi Chest: Non-tender Abdomen: Soft, Non-tender, Non-distended MSK: Mild lower extremity edema, Normal ROM Integumentary: No [...] filling pressures. No significant valvular abnormalities. STRESS: 2017 Lexiscan normal, per patient report ([facility]) 06/11/2019 Lexiscan Findings: The image quality is technically adequate despite adjacent bowel activity and reduced counts. In the stress and rest SPECT/CT images, the left ventricle is normal in size. The stress SPECT/CT images show a normal pattern of myocardial perfusion. Gated SPECT/CT images show normal myocardial thickening and normal wall motion. The calculated left ventricular ejection fraction is 71%. ? Impression: 1. No evidence of myocardial infarction or stress-induced ischemia. 2. Normal left ventricular wall motion and thickening. 3. The calculated left ventricular ejection fraction of 71%. CTA CORONARY: n/a CATHERIZATIONS:2006 Normal, per patient report. Assessment/Plan: Morbid Obesity -DSE to risk stratify for bariatric surgery -Lipid panel and likely atorvastatin 40mg qday HFpEF -TTE with diastolic dysfunction -Increase lisinopril from 10mg qday to 20mg BID -Coreg 12.5mg BID for after-load reduction as he cannot take MACO-I with hyperkalemia (stopped metoprolol) Hyperkalemia -K 5.8 -Lasix 20mg BID -BMP in one week HLD -Atorvastatin 20mg qday -Lipid panel pending Tylor Salazar MD [facility] P: [phone] OMER ADVISOR documented in this encounter Plan of Treatment Not on file documented as of this encounter Procedures Procedure Name Priority Date/Time Associated Diagnosis Comments BASIC METABOLIC PANEL (CALCIUM TOTAL) Routine 10/30/2019 1:51 PM CDT Chronic heart failure with preserved ejection fraction (HCC) LIPID PROFILE Routine 07/24/2019 1:04 PM CUSTOMER ADVISOR Chronic heart failure with preserved ejection fraction (HCC) documented in this encounter Results * (ABNORMAL) BASIC METABOLIC PANEL (CALCIUM TOTAL) (10/30/2019 1:51 PM CDT) Glucose 88 65 - 99 mg/dL [facility] INSURANCE BILL BUN 26(H) 6 - 24 mg/dL [facility] INSURANCE BILL Creatinine 1.43(H) 0.76 - 1.27 mg/dL [facility] INSURANCE BILL eGFR by MDRD 55(L) >59 mL/min/1.7 3 [facility] INSURANCE BILL eGFR by MDRD 64 >59 mL/min/1.7 3 [facility] INSURANCE BILL BUN/Creatinine Ratio 18 9 - 20 [facility] INSURANCE BILL Sodium 144 134 - 144 mmol/L [facility] INSURANCE BILL Potassium 4.2 3.5 - 5.2 mmol/L [facility] INSURANCE BILL Chloride 100 96 - 106 mmol/L [facility] INSURANCE BILL CO2 29 20 - 29 mmol/L [facility] INSURANCE BILL Calcium 9.4 8.7 - 10.2 mg/dL [facility] INSURANCE BILL Blood BLOOD SPECIMEN / Unknown 10/30/2019 1:51 PM CDT 10/30/2019 Narrative Resulting Agency Comment Lab Testing performed at: [facility] [address] ??[facility] [phone] Tylor Salazar MD LAB - CHEMISTRY HERNANDEZ SAL [facility] INSURANCE BILL [address] [place] [address] * (ABNORMAL) LIPID PROFILE (07/24/2019 1:04 PM CUSTOMER ADVISOR) Cholesterol 110 100 - 199 mg/dL [facility] INSURANCE BILL Triglycerides 63 0 - 149 mg/dL [facility] INSURANCE BILL HDL Cholesterol 37(L) >39 mg/dL [facility] INSURANCE BILL VLDL Calculated 13 5 - 40 mg/dL [facility] INSURANCE BILL LDL Calculated 60 0 - 99 mg/dL [facility] INSURANCE BILL Comment NOT NEEDED [facility] INSURANCE BILL Comment: FASTING Ancillary determined the test is not needed. Blood BLOOD SPECIMEN / Unknown 07/24/2019 1:04 PM CUSTOMER ADVISOR 07/24/2019 Narrative Resulting Agency Comment Lab Testing performed at: [facility] [address] [facility] ??[facility] [phone] Tylor Salazar MD LAB - CHEMISTRY HERNANDEZ SAL Performing Organization Address City/[facility] Co de Phone Number [facility] INSURANCE BILL [address] [place] [address] documented in this encounter Visit Diagnoses Diagnosis Chronic heart failure with preserved ejection fraction (HCC)- Primary Class 3 severe obesity due to excess calories without serious comorbidity with body mass index (BMI) of 45.0 to 49.9 in adult (HCC) Essential hypertension LVH (left ventricular hypertrophy) due to hypertensive disease, with heart failure (HCC) Mixed hyperlipidemia Chronic right heart failure (HCC) MIRELLA (obstructive sleep apnea) Obstructive sleep apnea (adult) (pediatric) documented in this encounter Care Teams Curb Attendant Relationship Specialty Start Date End Date Natasha Bates PA-C [address] [place] [phone] PCP - General 03/21/19 06/20/23 documented as of this encounter
--- OUTSIDE RECORDS SUMMARY | 2024-05-22 05:43 | XMS_ITS | Encounter Summary ---
Author Organization [facility] Health Address [address] [facility] [place] [address] Care Team Providers Care Blocker And Polisher Name Role Phone Natasha Bates PA-C Primary Care Provider + Reason for Visit * Reason Comments Medication Issue Encounter Details Date Type Department Care Team (Late st Contact Info) Description 08/22/2019 Telephone [facility] - [address], [place] [phone] Star Davidson, periodicals clerk Issue Social History Tobacco Use Types Packs/Day [...] No 06/13/2019 documented as of this encounter Miscellaneous Notes * Telephone Encounter - Star Davidson RN - 08/22/2019 4:09 PM CDT Calls triage seeking refill of [facility] pharmacy has attempted to obtain this. [facility]/pharmacy #[id number] - [address] [facility] [address] (Phone) [phone] (Fax documented in this encounter Plan of Treatment Not on file documented as of this encounter Visit Diagnoses Not on filedocumented in this encounter Care Teams Blocker And Polisher Relationship Specialty Start Date End Date Natasha Bates PA-C [address] [place] [phone] PCP - General 03/21/19 06/20/23 documented as of this encounter
--- OUTSIDE RECORDS SUMMARY | 2024-05-22 05:43 | XMS_ITS | Encounter Summary ---
Author Organization [facility] Health Address [address] [facility] [place] [address] Care Team Providers Care Radio Sportscaster Name Role Phone Natasha Bates PA-C Primary Care Provider + Encounter Details Date Type Department Care Team (Late st Contact Info) Description 08/14/2019 Orders Only [facility] - Nephrology [address] [place] [address], [place] [address] Gerardo Zavala MD [address] [place] [address] [place] [phone] CRD (chronic renal disease), stage II Social [...] Associated Diagnosis Comments RENAL FUNCTION PANEL Routine 10/30/2019 1:50 PM CDT CRD (chronic renal disease), stage II documented in this encounter Results * (ABNORMAL) RENAL FUNCTION PANEL (10/30/2019 1:50 PM CDT) Glucose 89 65 - 99 mg/dL [facility] INSURANCE BILL BUN 27(H) 6 - 24 mg/dL [facility] INSURANCE BILL Creatinine 1.41(H) 0.76 - 1.27 mg/dL [facility] INSURANCE BILL eGFR by MDRD 56(L) >59 mL/min/1.7 3 [facility] INSURANCE BILL eGFR by MDRD 65 >59 mL/min/1.7 3 [facility] INSURANCE BILL BUN/Creatinine Ratio 19 9 - 20 [facility] INSURANCE BILL Sodium 144 134 - 144 mmol/L [facility] INSURANCE BILL Potassium 4.3 3.5 - 5.2 mmol/L [facility] INSURANCE BILL Chloride 100 96 - 106 mmol/L [facility] INSURANCE BILL CO2 30(H) 20 - 29 mmol/L [facility] INSURANCE BILL Calcium 9.3 8.7 - 10.2 mg/dL [facility] INSURANCE BILL Phosphorus 3.5 2.8 - 4.1 mg/dL [facility] INSURANCE BILL Albumin 3.7(L) 3.8 - 4.9 g/dL [facility] INSURANCE BILL Blood BLOOD SPECIMEN / Unknown 10/30/2019 1:50 PM CDT 10/30/2019 Narrative Resulting Agency Comment [facility] at: [facility] [address] [facility] [phone] Gerardo Oneal MD LAB - CH EMISTRY ORDERABLES [facility] INSURANCE BILL [address] [place] [address] documented in this encounter Visit Diagnoses Diagnosis CRD (chronic renal disease), stage II- Primary Chronic kidney disease, Stage II (mild) documented in this encounter Care Teams Radio Sportscaster Relationship Specialty Start Date End Date Natasha Bates PA-C [address] [place] [phone] PCP - General 03/21/19 06/20/23 documented as of this encounter
--- OUTSIDE RECORDS SUMMARY | 2024-05-22 05:43 | XMS_ITS | Encounter Summary ---
Author Organization [facility] Health Address [address] [facility] [place] [address] Care Team Providers Care Area Mechanic Name Role Phone Natasha Bates PA-C Primary Care Provider + Encounter Details Date Type Department Care Team (Late st Contact Info) Description 09/07/2019 3:30 PM CDT Video Visit [facility] [address] [place] [address] Muriel Moreno MD [address] [place] [address] Essential hypertension Social History Tobacco Use Types [...] * Patient Instructions* Muriel Moreno MD - 09/07/2019 2:38 PM CDT Please increase Coreg to 25 mg twice a day Please start taking amlodipine 5 mg once a day Please follow up in 6 months documented in this encounter Progress Notes * Muriel Moreno MD - 09/07/2019 2:18 PM CDT Patient Verification & Telephone Based Consent: I am proceeding with this evaluation at the direct request of the patient. I have verified this is the correct patient and have obtained verbal consent from the patient/surrogate to perform this voluntary telephone encounter evaluation. I have explained risks (including potential loss of confidentiality), benefits, alternatives, and the potential need for subsequent face to face care. Patient/ surrogate understands that there is a risk of medical inaccuracies given that our recommendations willbe made based on reported data. Knowing that there is a risk that this information is not reported accurately, and that the telemedicine audio, or data feed may be incomplete, the patient agrees to proceed with evaluation and holds us harmless knowing these risks. In this evaluation, we will be providing recommendations only. The patient/surrogate has been notified that other healthcare professionals (including students, residents and technical personnel) may be involved in this audio evaluation. All laws concerning confidentiality and patient access to medical records and copies of medical re cords apply to telemedicine. I have reviewed this above verification and consent paragraph with thepatient/surrogate. Patient current location: HOME Type of encounter: Telephone HPI: Mr. Delaney presents telephone visit for follow-up of . Since his last visit, he states that he feels better with the increased dose of lasix. Still has the O2 at home while sleeping (3L). Sleeps upright. Also has a sleep study set up now. Still occasionally gets chest pain - much less than in the past. Still has some LUZ/SOB but not worsening. BP now runs 150-140/90 Was taken off the lisinopril (due to hyperkalemia) Planning on bariatric surgery for December to January. Medications reviewed Review of Systems: History obtained from the patient Negative after 10 pt. system review except for what is already noted in the HPI. Medications (reviewed with patient): Current Outpatient Medications Medication Sig Dispense Refill ??? amitriptyline (ELAVIL) 25 MG tablet Take 25 mg by mouth at bedtime ??? atorvastatin (LIPITOR) 20 MG tablet Take 1 tablet by mouth once daily 90 tablet 4 ??? Biotin 5 MG ??? busPIRone (BUSPAR) 5 MG tablet Take 10 mg by mouth 2 times daily ??? carvedilol (COREG) 12.5 MG tablet Take 1 tablet by mouth 2 times daily with morning and eveningmeal 180 tablet 4 ??? dexlansoprazole (DEXILANT) 60 MG capsule Take 60 mg by mouth once daily ??? furosemide (LASIX) 20 MG tablet Take 1 tablet by mouth 2 times daily 60 tablet 11 ??? patiromer (VELTASSA) 8.4 g packet Take [...] before or after. 30 packet 3 No current facility-administered medications for this visit. Physical Examination: BP at home 140/150/90s Data: CBC: Recent Labs Component Name 06/13/19 0355 06/11/19 2229 06/10/19 2257 WBC 11.1* 11.7* 15.2* RBC 4.46 4.32 4.67 HGB 12.6* 12.2* 13.3* HCT 40.8 39.5 43.1 BMP: Recent Labs Component Name 07/24/19 1304 07/05/19 1231 06/13/19 0355 06/12/19 0315 06/11/19 2229 NA - - 142 143 145 CL - - 102 106 106 CO2 29 28 29 27 30* BUN 20 26* 21 18 20 CREATININE 1.32* 1.28* 1.5* 1.2 1.3* CALCIUM 9.6 9.6 9.2 9.3 9.4 Magnesium: No results for input(s): MG in the last 14831 hours. Phosphorus: Recent Labs Component Name 06/13/19 0355 04/18/19 1505 PHOS 3.5 3.0 Coagulation: No results for input(s): PT, INR, APTT in the last 29259 hours. Cardiac profile: Recent Labs Component Name 06/11/19 0556 06/11/19 0215 06/11/19 0049 06/10/19 2257 TROPONINI 0.017 - 0.024 0.020 BNP - 225* - - Cholesterol: Recent Labs [...] 4. Likely obesity hypoventilation and sleep apnea - BP not controlled now that he is off lisinopril (due to hyperkalemia) Previously controlled on two agents Plan to increase coreg to 25 BID and start amlodipine 5 mg daily - upcoming bariatric surgery: perioperative evaluation - patient OK to proceed with surgery withoutadditional cardiac testing; main risks include respiratory given the likely presence of sleep apneaand volume overload given the HFpEF. Recommend fluid monitoring and as need diuresis in the post operative period Total of 19 minutes was spent reviewing history, current symptoms, medications, and plan. - plan to follow up in 6 months Muriel Moreno MD, MD [facility] 09/07/2019 documented in this encounter Plan of Treatment Not on file documented as of this encounter Visit Diagnoses Diagnosis Essential hypertension- Primary documented in this encounter Care Teams Area Mechanic Relationship Specialty Start Date End Date Natasha Bates PA-C [address] [place] [phone] PCP - General 03/21/19 06/20/23 documented as of this encounter
--- OUTSIDE RECORDS SUMMARY | 2024-05-22 05:43 | XMS_ITS | Encounter Summary ---
Author Organization [facility] Address [address] [facility] [place] [address] Care Team Providers Care Sports Psychologist Name Role Phone Natasha Bates PA-C Primary Care Provider + Reason for Visit * Reason Comments Follow-up Encounter Details Date Type Department Care Team (Late st Contact Info) Description 04/18/2019 Telephone [facility] - Nephrology [address] [place] [address], [place] [address] Letitia Vidal, RN Follow-up Social [...] Progress Notes * Letitia Vidal, RN - 04/18/2019 4:33 PM CST [place] 8.4 gr packets, called into patient's pharmacy. 30 days suppy with no refills. Unable to escribe medication. ICULTURALIST documented in this encounter Plan of Treatment Not on file documented as of this encounter Visit Diagnoses Not on filedocumented in this encounter Care Teams Sports Psychologist Relationship Specialty Start Date End Date Natasha Bates PA-C [address] [place] [phone] PCP - General 03/21/19 06/20/23 documented as of this encounter
--- OUTSIDE RECORDS SUMMARY | 2024-05-22 05:43 | XMS_ITS | Encounter Summary ---
Author Organization [facility] Address [address] [place] [place] [address] Care Team Providers Care Green End Worker Name Role Phone Natasha Bates PA-C Primary Care Provider + Reason for Visit * Reason Comments Chronic Kidney Disease past hx hematuria . thick,bright yellow with odor. slight burning during urination. * Evaluate & Treat (Routine) - Closed Specialty Diagnoses / Procedures Referred By Malena sagastume Referred To Contact Nephrology Diagnoses CKD (chronic kidney disease) ckd 3 Procedures DE OFFICE/OUTPT VISIT,SOTO RILEY IV, Taylor Marie, PA-C [address] [place] [address] Gerardo Zavala MD [address] [place] [address] Referral ID Status Reason Start Date Expiration Date Visits Re quested Visits Authorized [id number] Closed 03/28/2019 09/24/2019 1 1 Encounter Details Date Type Department Care Team (Late st Contact Info) Description 04/18/2019 1:10 PM BOOTH OPERATOR Office Visit [facility] - Nephrology [address] [place] [address], [place] [address] Gerardo Zavala MD [address] [place] [address] [place] [address] Hyperpotassemia (Primary Dx); Kidney dysfunction Social History Tobacco Use Types [...] Sign Reading Time Taken Comments Blood Pressure 132/73 04/18/2019 1:23 PM BOOTH OPERATOR Pulse 73 04/18/2019 1:23 PM BOOTH OPERATOR Temperature 36.8 ??C (98.3 ??F) 04/18/2019 1:23 PM CS T Respiratory Rate 18 04/18/2019 1:23 PM BOOTH OPERATOR Oxygen Saturation 94% 04/18/2019 1:23 PM BOOTH OPERATOR Inhaled Oxygen Concentration - - Weight 168.4 kg (371 lb 4.8 oz) 04/18/2019 1:23 PM BOOTH OPERATOR Height 188 cm (6' 2 ) 04/18/2019 1:23 PM BOOTH OPERATOR Body Mass Index 47.67 04/18/2019 1:23 PM BOOTH OPERATOR documented in this encounter Progress Notes * Gerardo Zavala MD - 04/26/2019 2:14 PM CST Lab results from 04/18/19 showed creatinine stable, 1.3; moderate hyperkalemia. Patient receiving partiromer (Veltassa) 8.4 mg for the last 3 days. Will continue same dose. Will see him as a follow up in one month approximately. Patient was informed by phone and agreed to continue treatment H OPERATOR * Gerardo Zavala MD - 04/18/2019 2:39 PM CST Nephrology Clinic Note Date of Visit: 04/18/2019 Time of Visit: 2:40 PM Chief Complaint Patient presents with ??? Chronic Kidney Disease past hx hematuria. thick,bright yellow with odor. slight burning during urination. PCP: Dr. Natasha Ulloa Subjective: Patient is a 53 year old male who presents referred from his PCP for hyperkjalemia and CKD. Patient PMH is also significant for obesity and angina with heart catheterization in 2018. Patient informs that results of catheterization was probable a spasm. His renal function is moderately decreased with a creatinine of 1.37 (eGFR 58). His serum K has been in the 5s. Last K was 6.1 8 weeks ago. Patient was on lisinopril, but it was stopped after his K was found elevated. Patient is taking furosemide 20 mg. Patient had hematuria in 2017. 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 He has been seen before by a Production Superintendent, Dr. Diop, who informed him that his renal function was altered. Patients brought recent labs that show creatinine 1.37, BUN 28, Na 142, K 5.6, Cl 104, CO2 27, glucose 107. Patient denies SOB, but he has had edema in lower extremity for quite some time. Denies use of NSAIDs. Denies SOB, chest pain. No recent hematuria. Chronic conditions: CKD, moderate with eGFR 58. Obesity: Patient has been obese for long time. He has made effort to loose weight, but has regained it again D: Patient denies DM HTN: Mild HTN. Was on lisinopril, but it was discontinued for hyperkalemia. Current Outpatient Medications on File Prior to Visit Medication Sig Dispense Refill ??? amitriptyline (ELAVIL) 25 MG tablet Take 25 mg by mouth at bedtime ??? amoxicillin (AMOXIL) 500 MG tablet Take 500 mg by mouth every 8 hours ??? Biotin 5 MG ??? busPIRone (BUSPAR) 5 MG tablet Take 5 mg by mouth 3 times daily ??? dexlansoprazole (DEXILANT) 60 MG capsule Take 60 mg by mouth once daily ??? furosemide (LASIX) 20 MG tablet Take 20 mg by mouth once daily ??? ISOSORBIDE MONONITRATE PO Take 30 mg by mouth ??? metoprolol succinate XL 24hr (TOPROL XL) 50 MG tablet Take 50 mg by mouth once daily ??? pravastatin (PRAVACHOL) 20 MG tablet Take 20 mg by mouth at bedtime No current facility-administered medications on file prior to visit. Allergies not on file Surgical Hx: Bladder surgery in 2017 for hematuria ?? Family Hx: Hypertension - mother, brother, sister Denies any family hx of chronic kidney disease or dialysis ?? 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 Smoking status: Never Smoker ??? Smokeless tobacco: Never Used Substance Use Topics ??? Alcohol use: Yes Comment: maybe 4 drinks a month ??? Drug use: Never Review of Systems - positive in bold General ROS: negative for - chills or fever ENT ROS: negative for - headaches or visual changes Respiratory ROS: no cough, shortness of breath, or wheezing Cardiovascular ROS: no chest pain or dyspnea on exertion Gastrointestinal ROS: no abdominal pain, change in bowel habits, or black or bloody stools Genito-Urinary ROS: negative for - dysuria, incontinence or nocturia Musculoskeletal ROS: negative for - muscular weakness or swelling in leg - bilateral Neurological ROS: negative for - bowel and bladder control changes, headaches, numbness/tingling ortremors Dermatological ROS: negative for - pruritus Objective: Vitals: 04/18/19 1323 BP: 132/73 Pulse: 73 Resp: 18 Temp: 98.3 ??F (36.8 ??C) SpO2: 94% Weight: (!) 168.4 kg (371 lb 4.8 oz) Height: 1.88 m (6' 2 ) Estimated body mass index is 47.67 kg/m?? as calculated from the following: Height as of this encounter: 1.88 m (6' 2 ). Weight as of this encounter: 168.4 kg (371 lb 4.8 oz). General: Alert, cooperative, no distress, appears stated age. Head/Neck: Normocephalic, without obvious abnormality, atraumatic. Neck supple, symmetrical, trachea midline, no carotid bruit and no thyromegaly. ENT/Mouth: Conjunctivae/corneas clear. Nares normal. Mucus membranes moist, no erythema, drainage or edema.Oropharynx clear, mucus membranes, moist, no erythema or edema. CV: Regular rate and rhythm, S1, S2 normal, no murmur, click, rub or gallop. Respiratory: Clear to auscultation bilaterally. GI: Soft, non-tender. Bowel sounds normal. No masses, No organomegaly. Extremities normal, atraumatic, no cyanosis. Skin: Skin color normal. No rashes or lesions. Neurologic: AOx3. Grossly normal Psychiatric: Normal range mood/affect. Data Review Urine Studies: Not available Assessment: # CKD stage 3: Creatinine 1.37, estimated GFR 58. No clear cause of CKD. - Renal function panel - Protein/creatinine ratio in random urine - Urine protein/creatinine ratio - Urine sodium, K and Cl - Urinanlysis # Hyperkalemia: Persistent high levels of serum K. For several months. Etiology not known at the present time. Levels of K to high than expected for the renal function. No apparent evidence of acidosis (CO2 27). - Will start veltassa 8.4 g PO daily - Increase furosemide dose from 20 mg daily to 20 mg BID - Patient was counseled on low potassium diet # Obesity: BMI 47. - Patient counseled about risks associated to obesity including renal disease, heart disease. FU in 1 months Plan: Renal function panel CBC Protein/creatinie ratio. Urine K, creatinine, Cl, Na Start veltassa 8.4 g daily Increases furosemide to 20 mg BID Orders Placed This Encounter ??? CBC WITH DIFFERENTIAL ??? RENAL FUNCTION PANEL ??? PROTEIN CREATININE RATIO URINE RANDOM PNL ??? POTASSIUM URINE RANDOM ??? CHLORIDE URINE RANDOM Gerardo Oneal MD Internal Medicine, Div of Nephrology H OPERATOR * Ranjana Lockwood - 04/18/2019 2:22 PM CST Nephrology Clinic Note - PA Student Note Date of Visit: 04/18/2019 Time of Visit: 2:48 PM Chief Complaint Patient presents with ??? Chronic Kidney Disease past hx hematuria. thick,bright yellow with odor. slight burning during urination. Subjective: HPI Patient is a 53 year old male who presents to establish care for hyperkalemia and chronickidney disease stage 3. PMH, per patient, is also significant for: cellulitis, hematuria, angina with heart catheterization in 2018, and fatty liver. Patient referred to clinic by PCP, Natasha Joseph, due to potassium levels of 5.4 for several months, with a level of 6.1 about 8 weeks ago. He states that he was stopped on his Lisinopril due to the high potassium, and that he has tried eatinga low potassium diet. He was seen by a micropaleontologist, Dr. Diop, about 3-4 years ago, and he doesn'trecall being told that he had hyperkalemia at the time. Patient brought in his lab work today with the following results: Na: 142, K 5.6, Cl 104, CO2 27, Cr: 1.37, Glucose 107, BUN 26. Patient states that he takes his blood pressures at home and it typically is 130/70. The patient has experienced lower extremity edema and hematuria, shortness of breath with exertion, and deeper yellow and thick urine. The patient has not experienced any nausea, vomiting, incontinence, chest pain, headache and weakness. He reports drinking lots of water. Patient reports having hematuria since Fall 2016. Per patient, he was treated at [facility] and received a procedure that damaged bladder sphincter and had to have repair of bladder with artifical muscle. 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 amitriptyline (ELAVIL) 25 MG tablet Take 25 mg by mouth at bedtime ??? amoxicillin (AMOXIL) 500 MG tablet Take 500 mg by mouth every 8 hours ??? Biotin 5 MG ??? busPIRone (BUSPAR) 5 MG tablet Take 5 mg by mouth 3 times daily ??? dexlansoprazole (DEXILANT) 60 MG capsule Take 60 mg by mouth once daily ??? furosemide (LASIX) 20 MG tablet Take 20 mg by mouth once daily ??? ISOSORBIDE MONONITRATE PO Take 30 mg by mouth ??? metoprolol succinate XL 24hr (TOPROL XL) 50 MG tablet Take 50 mg by mouth once daily ??? pravastatin (PRAVACHOL) 20 MG tablet Take 20 mg by mouth at bedtime No current facility-administered medications on file prior to visit. Social History Tobacco Use ??? Smoking status: Never Smoker ??? Smokeless tobacco: Never Used Substance Use Topics ??? Alcohol use: Yes Comment: maybe 4 drinks a month ??? Drug use: Never Review of Systems - positive in bold General ROS: negative for - chills or fever ENT ROS: negative for - headaches or visual changes Respiratory ROS: no cough, shortness of breath, or wheezing Cardiovascular ROS: no chest pain or dyspnea on exertion Gastrointestinal ROS: no abdominal pain, change in bowel habits, or black or bloody stools Genito-Urinary ROS: negative for - dysuria, hematuria, incontinence or nocturia Musculoskeletal ROS: negative for - muscular weakness or swelling in leg - bilateral Neurological ROS: negative for - bowel and bladder control changes, headaches, numbness/tingling ortremors Dermatological ROS: negative for - pruritus Objective: Vitals: 04/18/19 1323 BP: 132/73 Pulse: 73 Resp: 18 Temp: 98.3 ??F (36.8 ??C) SpO2: 94% Weight: (!) 168.4 kg (371 lb 4.8 oz) Height: 1.88 m (6' 2 ) Estimated body mass index is 47.67 kg/m?? as calculated from the following: Height as of this encounter: 1.88 m (6' 2 ). Weight as of this encounter: 168.4 kg (371 lb 4.8 oz). General: Alert, cooperative, no distress, appears stated age. Obesity Class III. Head/Neck: Normocephalic, without obvious abnormality, atraumatic. Neck supple, symmetrical, trachea midline, no carotid bruit and no thyromegaly. ENT/Mouth: Conjunctivae/corneas clear. Nares normal. No cervical or supraclavicular LAD. CV: Regular rate and rhythm, S1, S2 normal, no murmur, click, rub or gallop. Pulses 2+ BLE, 1+ lower extremity edema. Respiratory: Clear to auscultation bilaterally. GI: Soft, non-tender. Bowel sounds normal. No masses, No organomegaly. M/S: Back symmetric, no curvature. ROM normal. No CVA tenderness. Extremities normal, atraumatic, no cyanosis. Skin: Skin color normal. No rashes or lesions. Neurologic: No asterixis. Psychiatric: Normal range mood/affect. Data Review Assessment: 1. Hyperpotassemia 2. Kidney dysfunction Plan: #CKD Stage 3 - Cr 1.37, BUN 28. EGFR: 58 - repeat labs ordered today: CBC, RFP, UA with Cl and K, Pr/Cr UA - patient already has order per PCP for renal US - counseled on weight loss. #Hyperkalemia - K: 5.6 from most recent labs. Patient reports elevated potassium for months with level of 6.1 about 8 weeks ago. - start Veltassa once daily - increase Furosemide to 20mg BID - counseled on low potassium diet and cardiac arrhythmias Return to clinic in 1 month. CELIA Stewart PA-S 04/18/19 H OPERATOR documented in this encounter Miscellaneous Notes * Communication Body - Letitia Vidal, RN - 04/18/2019 1:37 PM CST Occasional kidney pain about twice a month. H OPERATOR documented in this encounter Plan of Treatment Not on file documented as of this encounter Results * CHLORIDE URINE RANDOM (04/18/2019 3:05 PM BOOTH OPERATOR) Chloride Random Urine 85 Not Established mmol/L 04/18/2019 4:24 PM BOOTH OPERATOR [facility] Urine URINE SPECIMEN OBTAINED BY CLEAN CATCH PROCEDURE / Unknown Collection / Unknown 04/18/2019 3:05 PM BOOTH OPERATOR 04/18/2019 3:54 PM BOOTH OPERATOR Gerardo Oneal MD LAB - UR INE CHEMISTRY ORDERABLES [address] [phone] * POTASSIUM URINE RANDOM (04/18/2019 3:05 PM BOOTH OPERATOR) Potassium Urine 40 Not Established mmol/L 04/18/2019 4:24 PM BOOTH OPERATOR [facility] Urine URINE SPECIMEN OBTAINED BY CLEAN CATCH PROCEDURE / Unknown Collection / Unknown 04/18/2019 3:05 PM BOOTH OPERATOR 04/18/2019 3:54 PM BOOTH OPERATOR Gerardo Oneal MD LAB - UR INE CHEMISTRY ORDERABLES [facility] [address] [phone] * (ABNORMAL) RENAL FUNCTION PANEL (04/18/2019 3:05 PM BOOTH OPERATOR) BUN 24 7 - 26 mg/dL 04/18/2019 4:13 PM [facility] Creatinine 1.3(H) 0.6 - 1.2 mg/dL 04/18/2019 4:13 PM [facility] Sodium 144 136 - 145 mmol/L 04/18/2019 4:13 PM [facility] Potassium 5.4(H) 3.5 - 4.5 mmol/L 04/18/2019 4:13 PM [facility] Chloride 104 98 - 107 mmol/L 04/18/2019 4:13 PM [facility] CO2 32(H) 22 - 29 mmol/L 04/18/2019 4:13 PM [facility] Glucose 87 70 - 115 mg/dL 04/18/2019 4:13 PM [facility] Albumin 2.9(L) 3.4 - 5.0 g/dL 04/18/2019 4:13 PM [facility] Calcium 9.4 8.4 - 10.2 mg/dL 04/18/2019 4:13 PM [facility] Phosphorus 3.0 2.3 - 4.7 mg/dL 04/18/2019 4:13 PM [facility] Anion Gap 13 8 - 18 04/18/2019 4:13 PM [facility] BUN/Creatinine Ratio 18 7 - 23 04/18/2019 4:13 PM [facility] Osmolality Calculated 301(H) 270 - 300 mOsm/kg 04/18/2019 4:13 PM [facility] eGFR 58(L) >60 mL/min/1.7 3 m2 04/18/2019 4:13 PM [facility] Blood BLOOD SPECIMEN / Unknown Lab Venipuncture / Unknown 04/18/2019 3:05 PM BOOTH OPERATOR 04/18/2019 3:15 PM BOOTH OPERATOR Gerardo Oneal MD LAB - CH EMISTRY ORDERABLES [facility] [address] [place] [address] * (ABNORMAL) CBC WITH DIFFERENTIAL (04/18/2019 3:05 PM BOOTH OPERATOR) WBC 13.7(H) 3.5 - 10.5 10? 3 /uL 04/18/2019 3:49 PM [facility] RBC 4.66 4.30 - 5.70 10? 6 /uL 04/18/2019 3:49 PM [facility] Hemoglobin 13.2(L) 13.5 - 17.5 g/dL 04/18/2019 3:49 PM [facility] Hematocrit 42.9 39.0 - 50.0 % 04/18/2019 3:49 PM [facility] MCV 92.1 81.0 - 97.0 fL 04/18/2019 3:49 PM [facility] MCH 28.3 28.0 - 34.0 pg 04/18/2019 3:49 PM [facility] MCHC 30.8(L) 32.0 - 36.0 g/dL 04/18/2019 3:49 PM [facility] Platelet Count 263 150 - 400 10? 3 /uL 04/18/2019 3:49 PM [facility] RDW-SD 49.1 36.0 - 50.0 fL 04/18/2019 3:49 PM [facility] RDW-CV 14.6 11.2 - 14.8 % 04/18/2019 3:49 PM [facility] MPV 12.0 9.3 - 12.8 fL 04/18/2019 3:49 PM [facility] nRBC Absolute 0.00 0 10? 3 /uL 04/18/2019 3:49 PM [facility] nRBC Auto 0.0 0 /100 WBC 04/18/2019 3:49 PM [facility] Neutrophils % 60.3 35.0 - 70.0 % 04/18/2019 3:49 PM [facility] Lymphocytes % 27.2 19.7 - 55.1 % 04/18/2019 3:49 PM [facility] Monocytes % 7.4 3.0 - 15.0 % 04/18/2019 3:49 PM [facility] Eosinophils % 4.1 0.0 - 6.0 % 04/18/2019 3:49 PM [facility] Basophil % 0.6 0.0 - 1.5 % 04/18/2019 3:49 PM [facility] Neutrophils Absolute 8.3(H) 1.6 - 7.0 10? 3 /uL 04/18/2019 3:49 PM [facility] Lymphocyte Absolute 3.7(H) 0.8 - 2.9 10? 3 /uL 04/18/2019 3:49 PM [facility] Monocytes Absolute 1.02(H) 0.14 - 0.66 10? 3 /uL 04/18/2019 3:49 PM [facility] Eosinophils Absolute 0.56(H) 0.00 - 0.45 10? 3 /uL 04/18/2019 3:49 PM [facility] Basophils Absolute 0.08(H) 0.00 - 0.06 10? 3 /uL 04/18/2019 3:49 PM [facility] Immature Granulocytes % 0.4 0.0 - 1.0 % 04/18/2019 3:49 PM [facility] Blood BLOOD SPECIMEN / Unknown Lab Venipuncture / Unknown 04/18/2019 3:05 PM BOOTH OPERATOR 04/18/2019 3:15 PM BOOTH OPERATOR Gerardo Oneal MD LAB - HE MATOLOGY ORDERABLES [facility] [address] [place] [address] documented in this encounter Visit Diagnoses Diagnosis Hyperpotassemia- Primary Kidney dysfunction Unspecified disorder of kidney and ureter documented in this encounter Care Teams Green End Worker Relationship Specialty Start Date End Date Natasha Bates PA-C [address] [place] [phone] PCP - General 03/21/19 06/20/23 documented as of this encounter
--- OUTSIDE RECORDS SUMMARY | 2024-05-22 05:43 | XMS_ITS | Encounter Summary ---
Author Organization [facility] Address [address] [place] [address] Care Team Providers Care Placement Officer Name Role Phone Natasha Bates PA-C Primary Care Provider + Reason for Visit * Reason Comments Chest Pain Pt complains of ches t pain and SOB x2 hours. Complains of left sided dull chest pain. Complains of pressure and left arm numbness. * Auth/Cert Specialty Diagnoses / Procedures Referred By Malena t Referred To Contact Referral ID Status Reason Start Date Expiration Date Visits Re quested Visits Authorized [id number] 1 1 Encounter Details Date Type Department Care Team (Late st Contact Info) Description 06/10/2019 11:00 PM WEIR FISHERMAN - 06/13/2019 3:45 PM [facility] Hospital Encounter [facility] [address] [address] Mery Meza MD [address] [place] [address] [place] [address] [facility] [place] [address] Benny Sánchez MD [address] [facility] [place] [address] Gemma Heart MD [address] [place], [place] [id number] Steve Smith MD [address] [place] [address] Internal Medicine Discharge Disposition: Home or Self [...] Sign Reading Time Taken Comments Blood Pressure 115/59 06/13/2019 11:30 AM WEIR FISHERMAN Pulse 69 06/13/2019 11:30 AM WEIR FISHERMAN Temperature 36.7 ??C (98.1 ??F) 06/13/2019 1 1:30 AM WEIR FISHERMAN Respiratory Rate 20 06/13/2019 11:3 0 AM WEIR FISHERMAN Oxygen Saturation 92% 06/13/2019 11: 30 AM WEIR FISHERMAN Inhaled Oxygen Concentration - - Weight 161.2 kg (355 lb 6.4 oz) 06/13/2019 6:48 AM WEIR FISHERMAN Height 185.4 cm (6' 1 ) 06/12/2019 12:1 0 AM WEIR FISHERMAN Body Mass Index 46.89 06/12/2019 12:10 AM WEIR FISHERMAN documented in this encounter Functional Status Functional [...] No 06/13/2019 documented as of this encounter Discharge Summaries * Gemma Heart MD - 06/13/2019 9:44 AM CST Images from the original note were not included. Hospital Discharge Summary Patient ID: Howie Armstrong [id number] 53 year old 1965 Admit date: 06/10/2019 Discharge date: 06/13/2019 Admitting Physician: Benny Sánchez MD Discharge Physician: Gemma Heart Present on Admission: None Discharge Diagnoses: Acute respiratory failure, fluid overload, small pleural effusion, chest pain, HTN, ERIC on CKD stage 3, MIRELLA, morbid obesity Admission Condition: Fair Discharged Condition: Good Indication for Admission: Acute respiratory failure Hospital Course: Howie Armstrong is a 53 year old male with past medical history of morbid obesity, CKD, HTN, sleep apnea, presenting with chest pain and shortness of breath. Shortness of breath was with activity. Chest was on middle of chest radiating to left arm. Troponin was negative. EKG was negative for acute ischemic changes. Cardiac stress test was unremarkable. Chest pain resolved. Chest x-ray showed small pleural effusion, CT PE protocol was negative for PE. BNP was slightly elevated. Echo showed EF 75 percent, normal diastolic function. No pulmonary hypertension. Treatment continued with IV Lasix. Patient was feeling better. His shortness of breath was improving. Patient also has chronic leg swelling. Swelling was getting better with Lasix. Physical therapy recommended 2 L oxygen with activity. Discussed with case assembler and oxygen was provided for patient. Patient was discharged home. He should follow up with his urologist, vice chairman, PCP. He should follow with PCP for a sleep study asoutpatient. Discussed with patient about weight loss, low-fat, low-salt diet. Patient should discuss with his vice chairman and his urologist about starting aspirin. Significant Diagnostic Studies: CBC: Recent Labs Lab Units 06/13/19 0355 06/11/199 06/10/19 2257 WBC 10??3/uL 11.1* 11.7* 15.2* RBC 10??6/uL 4.46 4.32 4.67 HGB g/dL 12.6* 12.2* 13.3* HCT % 40.8 39.5 43.1 BMP: Recent Labs Lab Units 06/13/19 0355 06/12/19 0315 06/11/19 2229 NA mmol/L 142 143 145 CL mmol/L 102 106 106 CO2 mmol/L 29 27 30* BUN mg/dL CREATININE mg/dL 1.5* 1.2 1.3* GLU mg/dL 85 98 86 CALCIUM mg/dL 9.2 9.3 9.4 Magnesium: No results for input(s): MG in the last 168 hours. Phosphorus: Recent Labs Lab Units 06/13/19 0355 PHOS mg/dL 3.5 Coagulation: No results for input(s): PT, INR, APTT in the last 168 hours. Endocrine: No results for input(s): TSH, A1C in the last 168 hours. LFTs: Recent Labs Lab Units 06/13/19 0355 06/11/19 2229 06/10/19 2257 AST Units/L -- 18 28 ALT Units/L -- 18 21 TBILI mg/dL -- 0.6 0.4 ALB g/dL 2.7* 2.7* 2.9* Xr Chest 2vw Result Date: 06/11/2019 IMPRESSION: Left lower lobe opacity may represent atelectasis and/or airspace disease. Small left pleural effusion may contribute. Dictated by Adelaide Hernandez MD (residential real estate agent). IDr. HARRISON have personally reviewed and interpreted this examination/study. This report was electronically signed by HARRISON SANDHU on 06/11/2019 7:38 AM . Xr Abdomen Kub Result Date: 06/12/2019 IMPRESSION: Nonobstructive bowel gas pattern. Dictated by Flaquito Hernandez MD (residential real estate agent). Dr. HARRISON Resendiz have personally reviewed and interpreted this examination/study. This report was electronically signed by HARRISON SANDHU on 06/12/2019 9:55 AM . Nm Myocard Perf Stress Only Result Date: 06/11/2019 Impression: 1. No evidence of myocardial infarction or stress-induced ischemia. 2. Normal left ventricular wall motion and thickening. 3. The calculated left ventricular ejection fraction of 71%. This report was electronically signed by KATHRYN TENORIO D.O. on 06/11/2019 5:[address] Angio Chest Pulm Embolism Result Date: 06/11/2019 IMPRESSION: 1. No evidence of central pulmonary embolism. Evaluation of segmental and subsegmental pulmonary arteries is degraded by suboptimal contrast opacification. 2. Dilated main pulmonary artery, likely representing pulmonary hypertension. 3. Enlarged thyroid gland. Dictated by Adelaide Wiggins MD (residential real estate agent). I, Dr. Sohail JOHNSON M.D. have personally reviewed and interpreted this examination/study. This report was electronically signed by Sohail JOHNSON M.D. on 06/11/2019 9:05 AM . Discharge Exam: Blood pressure 115/59, pulse 69, temperature 98.1 ??F (36.7 ??C), temperature source Oral, resp. rate 20, height 1.854 m (6' 1 ), weight (!) 161.2 kg (355 lb 6.4 oz), SpO2 92 %. GEN: Alert oriented in NAD CHEST: Clear to auscultation bilaterally HEART: Regular rate and rhythm, Nl S1 and S2 No gallops. GI: Abdomen soft and non tender, non-distended, +BS EXT: Bilateral lower extremities 1+ edema PSYCH: Alert and oriented to person place time and situation. Good mood, appropriate affect. Disposition: home Patient Instructions: Medication List START taking these medications isosorbide mononitrate CR 24hr 30 MG tablet Commonly known as: IMDUR Take 1 tablet by mouth once daily for 30 days Start taking on: June 14, 2019 Replaces: ISOSORBIDE MONONITRATE PO CHANGE how you take these medications metoprolol succinate XL 24hr 50 MG tablet Commonly known as: TOPROL XL Take 1 tablet by mouth once daily What changed: when to take this CONTINUE taking these medications amitriptyline 25 MG tablet Commonly known as: ELAVIL Biotin 5 MG busPIRone 5 MG tablet Commonly known as: BUSPAR DEXILANT 60 MG capsule Generic drug: dexlansoprazole furosemide 20 MG tablet Commonly known as: LASIX patiromer 8.4 g packet Commonly known as: VELTASSA Take 1 packet by mouth daily with [...] oral medications 3 hours before or after. pravastatin 20 MG tablet Commonly known as: PRAVACHOL STOP taking these medications amoxicillin 500 MG tablet Commonly known as: AMOXIL ISOSORBIDE MONONITRATE PO Replaced by: isosorbide mononitrate CR 24hr 30 MG tablet POTASSIUM PO Where to Get Your Medications These medications were sent to [facility]/pharmacy #[id number] - [address] [facility] [address] [address] [address] ?? isosorbide mononitrate CR 24hr 30 MG tablet ?? metoprolol succinate XL 24hr 50 MG tablet Follow-up Information Natasha Bates PA-C . Specialty: Physician Dope And Fabric Worker Why: Please follow with PCP in 1 week Contact information: [address] [facility] [address] Follow up with provider . Why: Please follow with your Cardiology in 2-4 weeks Follow up with provider . Why: Please follow with Nephrology Clinic in 1-2 weeks Discharge Instructions Patient Education Patient Education Chest Pain MOTORIZED SQUAD CAPTAIN: Chest pain can be caused by a range of conditions, from not serious to life- threatening. It may be caused by a heart attack or a blood clot in your lungs. Sometimes chest pain or pressure is caused by poor blood flow to your heart (angina). Infection, inflammation, or a fracture in the bones or cartilage in your chest can cause pain or discomfort. Chest pain can also be a symptom of a digestive problem, such as acid reflux or a stomach ulcer. An anxiety attack or a strong emotion such as anger can also cause chest pain. It is important to follow up with your healthcare provider to find the cause of your chest pain. Common symptoms you may have with chest pain: ?? Fever or sweating ?? Nausea or vomiting ?? Shortness of breath ?? Discomfort or pressure that spreads from your chest to your back, jaw, or arm ?? A racing or slow heartbeat ?? Feeling weak, tired, or faint Call 911 if: ?? You have any of the following signs of a heart attack: ? Squeezing, pressure, or pain in your chest ? You may also have any of the following: ?? Discomfort or pain in your back, neck, jaw, stomach, or arm ?? Shortness of breath ?? Nausea or vomiting ?? Lightheadedness or a sudden cold sweat Seek care immediately if: ?? You have chest discomfort that gets worse, even with medicine. ?? You cough or vomit blood. ?? Your bowel movements are black or bloody. ?? You cannot stop vomiting, or it hurts to swallow. Contact your healthcare provider if: ?? You have questions or concerns about your condition or care. Treatment for chest pain may include medicine to treat your symptoms while your healthcare providerfinds the cause of your chest pain. ?? Medicines may be given to treat the cause of your chest pain. Examples include pain medicine, anxiety medicine, or medicines to increase blood flow to your heart. ?? Do not take certain medicines without asking your healthcare provider first. These include NSAIDs, herbal or vitamin supplements, or hormones (estrogen or progestin). ?? One or more stents may need to be placed in your heart if pain was caused by blockage. A stent is a wire mesh tube that helps hold your artery open. Follow up with your healthcare provider within 72 hours, or as directed: You may need to return formore tests to find the cause of your chest pain. You may be referred to a specialist, such as a vice chairman or personal service representative. Write down your questions so you remember to ask them during your visits. Healthy living tips: The following are general healthy guidelines. If your chest pain is caused by a heart problem, your healthcare provider will give you specific guidelines to follow. ?? Do not smoke. Nicotine and other chemicals in cigarettes and cigars can cause lung and heart damage. Ask your healthcare provider for information if you currently smoke and need help to quit. E-cigarettes or smokeless tobacco still contain nicotine. Talk to your healthcare provider before you use these products. ?? Eat a variety of healthy, low-fat, low-salt foods. Healthy foods include fruits, vegetables, whole-grain breads, low-fat dairy products, beans, lean meats, and fish. Ask for more information abouta heart healthy diet. ?? Drink plenty of water every day. Your body is made of mostly water. Water helps your body to control your temperature and blood pressure. Ask your healthcare provider how much water you should drink every day. ?? Ask about activity. Your healthcare provider will tell you which activities to limit or avoid. Ask when you can drive, return to work, and have sex. Ask about the best exercise plan for you. ?? Maintain a healthy weight. Ask your healthcare provider how much you should weigh. Ask him or her to help you create a weight loss plan if you are overweight. ?? Get the flu and pneumonia vaccines. All adults should get the influenza (flu) vaccine. Get it every year as soon as it becomes available. The pneumococcal vaccine is given to adults aged 65 years or older. The vaccine is given every 5 years to prevent pneumococcal disease, such as pneumonia. If you have a stent: ?? Carry your stent card with you at all times. ?? Let all healthcare providers know that you have a stent. ?? Copyright [employer] 2019 Information is for End User's use only and may not be sold, redistributed or otherwise used for commercial purposes. All illustrations and images included in CareNotes?? are the copyrighted property of [employer] or [employer] The above information is an medicaid business analyst only. It is not intended as medical advice for individual conditions or treatments. Talk to your doctor, nurse or pharmacist before following any medical regimen to see if it is safe and effective for you. Chronic Kidney Disease WHAT YOU NEED TO KNOW: Chronic kidney disease (CKD) is the gradual and permanent loss of kidney function. It is also called chronic kidney failure, or chronic renal insufficiency. Normally, the kidneys remove fluid, chemicals, and waste from your blood. These wastes are turned into urine by your kidneys. CKD may worsen over time and lead to kidney failure. Your CKD team will help you and your family plan for your care at home. The team will help you create goals and find ways to meet your goals. Your care plan may foreign exchange student coordinator time as your needs change. DISCHARGE INSTRUCTIONS: Call your local emergency number (911 in the ) if: ?? You have a seizure. ?? You have shortness of breath. Call your doctor or library services assistant if: ?? You are confused and very drowsy. ?? You suddenly gain or lose more weight than your healthcare provider has told you is okay. ?? You have itchy skin or a rash. ?? You urinate more or less than you normally do. ?? You have blood in your urine. ?? You have nausea and are vomiting. ?? You have fatigue or muscle weakness. ?? You have hiccups that will not stop. ?? You have questions or concerns about your condition or care. Medicines: ?? Medicines may be given to decrease blood pressure and get rid of extra fluid. You may also receive medicine to manage health conditions that may occur with CKD, such as anemia, diabetes, and heartdisease. ?? Take your medicine as directed. Contact your healthcare provider if you think your medicine is not helping or if you have side effects. Tell him or her if you are allergic to any medicine. Keep a list of the medicines, vitamins, and herbs you take. Include the amounts, and when and why you take them. Bring the list or the pill bottles to follow-up visits. Carry your medicine list with you in case of an emergency. What you can do to manage CKD: Management may include making some lifestyle changes. Tell your healthcare provider if you have any concerns about being able to make the changes. He or she can help you find solutions, including working with specialists. Ask for help creating a plan to break large goals into smaller steps. Your plan may include any of the following: ?? Manage other health conditions. Your healthcare provider will work with you to make a care plan that meets your needs. You will be checked regularly for heart disease or other conditions that can make CKD worse, such as diabetes. Your blood pressure will be closely monitored. You will also get atarget blood pressure and help making a plan to reach your target. This may include taking your blood pressure at home. ?? Maintain a healthy weight. Extra weight can strain your kidneys. Ask what a healthy weight is for you. Your provider can help you create a weight loss plan if you are overweight. ?? Create an exercise plan. Regular exercise can help you manage CKD, high blood pressure, and diabetes. Exercise also helps control weight. Your provider can help you create exercise goals and a plan to reach those goals. For example, your goal may be to exercise for 30 minutes in a day. Your plancan include breaking exercise into 10 minute sessions, 3 times during the day. ?? Create a healthy eating plan. Your provider may tell you to eat food low in sodium (salt), potassium, phosphorus, or protein. A dietitian can help you plan meals if needed. Ask how much liquid to drink each day and which liquids are best for you. ?? Limit alcohol as directed. Alcohol can cause fluid retention and can affect your kidneys. Ask how much alcohol is safe for you. A drink of alcohol is 12 ounces of beer, 5 ounces of wine, or 1?? ounces of liquor. ?? Do not smoke. Nicotine and other chemicals in cigarettes and cigars can cause kidney damage. Askyour provider for information if you currently smoke and need help to quit. E-cigarettes or smokeless tobacco still contain nicotine. Talk to your provider before you use these products. ?? Ask about pfsa-pqm-dwbhsub medicines. Medicines such as NSAIDs and laxatives may harm your kidneys. Some cough and cold medicines can raise your blood pressure. Always ask if a medicine is safe before you take it. ?? Ask about vaccines you may need. Infections such as pneumonia, influenza, and hepatitis can be more harmful or more likely to occur in a person who has CKD. Vaccines lower your risk for infection. Follow up with your doctor as directed: You will need to return for tests to monitor your kidney and nerve function, and your parathyroid hormone level. Your medicines may be changed, based on certain test results. You may also be referred to a library services assistant (kidney specialist). Write down your questions so you remember to ask them during your visits. ?? Copyright [employer] 2019 Information is for End User's use only and may not be sold, redistributed or otherwise used for commercial purposes. All illustrations and images included in CareNotes?? are the copyrighted property of [employer] or [employer] The above information is an medicaid business analyst only. It is not intended as medical advice for individual conditions or treatments. Talk to your doctor, nurse or pharmacist before following any medical regimen to see if it is safe and effective for you. Patient Education Isosorbide Mononitrate (By mouth) Isosorbide Mononitrate (hqa-vtl-JIG-bide mxi-rl-LWS-trate) Prevents angina. This medicine is a nitrate. Brand Name(s): There may be other brand names for this medicine. When This Medicine Should Not Be Used: This medicine is not right for everyone. Do not use it if you had an allergic reaction to isosorbide or similar medicines. How to Use This Medicine: Tablet, Long Acting Tablet ?? Take your medicine as directed. Your dose may need to be changed several times to find what works best for you. You should take this medicine first thing in the morning. Carefully follow the same schedule each day so the medicine will work properly. ?? It is best to take this medicine on an empty stomach with at least half a glass of water. ?? Swallow the extended-release tablet whole. Do not crush, break, or chew it. ?? Missed dose: Take a dose as soon as you remember. If it is almost time for your next dose, wait until then and take a regular dose. Do not take extra medicine to make up for a missed dose. ?? Store the medicine in a closed container at room temperature, away from heat, moisture, and direct light. Drugs and Foods to Avoid: Ask your doctor or pharmacist before using any other medicine, including jgdk-rbb-hszywdp medicines, vitamins, and herbal products. ?? Do not use this medicine together with riociguat, sildenafil, tadalafil, or vardenafil. ?? Some foods and medicines can affect how isosorbide mononitrate works. Tell your doctor if you are using blood pressure medicine or if you drink alcohol. Warnings While Using This Medicine: ?? Tell your doctor if you are or . Tell him if you had a recent heart attackor you have heart failure, an enlarged heart, low blood pressure, or other heart problems. ?? This medicine may cause the following problems: ? Severe low blood pressure ? Worsening of chest pain caused by an enlarged heart ?? Medicines that treat chest pain sometimes cause headaches. These headaches are a sign that the medicine is working. Do not stop taking the medicine or change the time you take it in order to avoidthe headaches. Ask your doctor if you can take aspirin or acetaminophen to treat the headache. ?? This medicine may make you dizzy. Do not drive or do anything else that could be dangerous untilyou know how this medicine affects you. You may feel lightheaded when standing, so stand up slowly.Drinking alcohol may make these symptoms worse. ?? Do not stop using this medicine suddenly. Your doctor will need to slowly decrease your dose before you stop it completely. ?? Your doctor will do lab tests at regular visits to check on the effects of this medicine. Keep all appointments. ?? Keep all medicine out of the reach of children. Never share your medicine with anyone. Possible Side Effects While Using This Medicine: Call your doctor right away if you notice any of these side effects: ?? Allergic reaction: Itching or hives, swelling in your face or hands, swelling or tingling in your mouth or throat, chest tightness, trouble breathing ?? Severe or ongoing dizziness, lightheadedness, or fainting ?? Severe headache ?? Slow heartbeat, increased chest pain If you notice these less serious side effects, talk with your doctor: ?? Mild headache If you notice other side effects that you think are caused by this medicine, tell your doctor. Call your doctor for medical advice about side effects. You may report side effects to [facility] at 2-780-SVC-8521 ?? Copyright [employer] 2018 Information is for End User's use only and may not be sold, redistributed or otherwise used for commercial purposes. The above information is an medicaid business analyst only. It is not intended as medical advice for individual conditions or treatments. Talk to your doctor, nurse or pharmacist before following any medical regimen to see if it is safe and effective for you. Signed: Gemma Heart MD 06/13/2019 Time spent on discharge: 45 minutes. Time was spent on preparation of discharge records, prescriptions, counseling patient, working withsocial work and nursing. FISHERMAN documented in this encounter Discharge Instructions * Discharge Instructions* Becky Porras RN - 06/13/2019 12:06 PM WEIR FISHERMAN Images from the original note were not included. Patient Education Patient Education Chest Pain MOTORIZED SQUAD CAPTAIN: Chest pain can be caused by a range of conditions, from not serious to life- threatening. It may be caused by a heart attack or a blood clot in your lungs. Sometimes chest pain or pressure is caused by poor blood flow to your heart (angina). Infection, inflammation, or a fracture in the bones or cartilage in your chest can cause pain or discomfort. Chest pain can also be a symptom of a digestive problem, such as acid reflux or a stomach ulcer. An anxiety attack or a strong emotion such as anger can also cause chest pain. It is important to follow up with your healthcare provider to find the cause of your chest pain. Common symptoms you may have with chest pain: ?? Fever or sweating ?? Nausea or vomiting ?? Shortness of breath ?? Discomfort or pressure that spreads from your chest to your back, jaw, or arm ?? A racing or slow heartbeat ?? Feeling weak, tired, or faint Call 911 if: ?? You have any of the following signs of a heart attack: ? Squeezing, pressure, or pain in your chest ? You may also have any of the following: ?? Discomfort or pain in your back, neck, jaw, stomach, or arm ?? Shortness of breath ?? Nausea or vomiting ?? Lightheadedness or a sudden cold sweat Seek care immediately if: ?? You have chest discomfort that gets worse, even with medicine. ?? You cough or vomit blood. ?? Your bowel movements are black or bloody. ?? You cannot stop vomiting, or it hurts to swallow. Contact your healthcare provider if: ?? You have questions or concerns about your condition or care. Treatment for chest pain may include medicine to treat your symptoms while your healthcare providerfinds the cause of your chest pain. ?? Medicines may be given to treat the cause of your chest pain. Examples include pain medicine, anxiety medicine, or medicines to increase blood flow to your heart. ?? Do not take certain medicines without asking your healthcare provider first. These include NSAIDs, herbal or vitamin supplements, or hormones (estrogen or progestin). ?? One or more stents may need to be placed in your heart if pain was caused by blockage. A stent is a wire mesh tube that helps hold your artery open. Follow up with your healthcare provider within 72 hours, or as directed: You may need to return formore tests to find the cause of your chest pain. You may be referred to a specialist, such as a vice chairman or personal service representative. Write down your questions so you remember to ask them during your visits. Healthy living tips: The following are general healthy guidelines. If your chest pain is caused by a heart problem, your healthcare provider will give you specific guidelines to follow. ?? Do not smoke. Nicotine and other chemicals in cigarettes and cigars can cause lung and heart damage. Ask your healthcare provider for information if you currently smoke and need help to quit. E-cigarettes or smokeless tobacco still contain nicotine. Talk to your healthcare provider before you use these products. ?? Eat a variety of healthy, low-fat, low-salt foods. Healthy foods include fruits, vegetables, whole-grain breads, low-fat dairy products, beans, lean meats, and fish. Ask for more information abouta heart healthy diet. ?? Drink plenty of water every day. Your body is made of mostly water. Water helps your body to control your temperature and blood pressure. Ask your healthcare provider how much water you should drink every day. ?? Ask about activity. Your healthcare provider will tell you which activities to limit or avoid. Ask when you can drive, return to work, and have sex. Ask about the best exercise plan for you. ?? Maintain a healthy weight. Ask your healthcare provider how much you should weigh. Ask him or her to help you create a weight loss plan if you are overweight. ?? Get the flu and pneumonia vaccines. All adults should get the influenza (flu) vaccine. Get it every year as soon as it becomes available. The pneumococcal vaccine is given to adults aged 65 years or older. The vaccine is given every 5 years to prevent pneumococcal disease, such as pneumonia. If you have a stent: ?? Carry your stent card with you at all times. ?? Let all healthcare providers know that you have a stent. ?? Copyright [employer] 2019 Information is for End User's use only and may not be sold, redistributed or otherwise used for commercial purposes. All illustrations and images included in CareNotes?? are the copyrighted property of [employer]. or [employer] The above information is an medicaid business analyst only. It is not intended as medical advice for individual conditions or treatments. Talk to your doctor, nurse or pharmacist before following any medical regimen to see if it is safe and effective for you. Chronic Kidney Disease WHAT YOU NEED TO KNOW: Chronic kidney disease (CKD) is the gradual and permanent loss of kidney function. It is also called chronic kidney failure, or chronic renal insufficiency. Normally, the kidneys remove fluid, chemicals, and waste from your blood. These wastes are turned into urine by your kidneys. CKD may worsen over time and lead to kidney failure. Your CKD team will help you and your family plan for your care at home. The team will help you create goals and find ways to meet your goals. Your care plan may foreign exchange student coordinator time as your needs change. DISCHARGE INSTRUCTIONS: Call your local emergency number (911 in the [place]) if: ?? You have a seizure. ?? You have shortness of breath. Call your doctor or library services assistant if: ?? You are confused and very drowsy. ?? You suddenly gain or lose more weight than your healthcare provider has told you is okay. ?? You have itchy skin or a rash. ?? You urinate more or less than you normally do. ?? You have blood in your urine. ?? You have nausea and are vomiting. ?? You have fatigue or muscle weakness. ?? You have hiccups that will not stop. ?? You have questions or concerns about your condition or care. Medicines: ?? Medicines may be given to decrease blood pressure and get rid of extra fluid. You may also receive medicine to manage health conditions that may occur with CKD, such as anemia, diabetes, and heartdisease. ?? Take your medicine as directed. Contact your healthcare provider if you think your medicine is not helping or if you have side effects. Tell him or her if you are allergic to any medicine. Keep a list of the medicines, vitamins, and herbs you take. Include the amounts, and when and why you take them. Bring the list or the pill bottles to follow-up visits. Carry your medicine list with you in case of an emergency. What you can do to manage CKD: Management may include making some lifestyle changes. Tell your healthcare provider if you have any concerns about being able to make the changes. He or she can help you find solutions, including working with specialists. Ask for help creating a plan to break large goals into smaller steps. Your plan may include any of the following: ?? Manage other health conditions. Your healthcare provider will work with you to make a care plan that meets your needs. You will be checked regularly for heart disease or other conditions that can make CKD worse, such as diabetes. Your blood pressure will be closely monitored. You will also get atarget blood pressure and help making a plan to reach your target. This may include taking your blood pressure at home. ?? Maintain a healthy weight. Extra weight can strain your kidneys. Ask what a healthy weight is for you. Your provider can help you create a weight loss plan if you are overweight. ?? Create an exercise plan. Regular exercise can help you manage CKD, high blood pressure, and diabetes. Exercise also helps control weight. Your provider can help you create exercise goals and a plan to reach those goals. For example, your goal may be to exercise for 30 minutes in a day. Your plancan include breaking exercise into 10 minute sessions, 3 times during the day. ?? Create a healthy eating plan. Your provider may tell you to eat food low in sodium (salt), potassium, phosphorus, or protein. A dietitian can help you plan meals if needed. Ask how much liquid to drink each day and which liquids are best for you. ?? Limit alcohol as directed. Alcohol can cause fluid retention and can affect your kidneys. Ask how much alcohol is safe for you. A drink of alcohol is 12 ounces of beer, 5 ounces of wine, or 1?? ounces of liquor. ?? Do not smoke. Nicotine and other chemicals in cigarettes and cigars can cause kidney damage. Askyour provider for information if you currently smoke and need help to quit. E-cigarettes or smokeless tobacco still contain nicotine. Talk to your provider before you use these products. ?? Ask about szgv-sjt-isnqags medicines. Medicines such as NSAIDs and laxatives may harm your kidneys. Some cough and cold medicines can raise your blood pressure. Always ask if a medicine is safe before you take it. ?? Ask about vaccines you may need. Infections such as pneumonia, influenza, and hepatitis can be more harmful or more likely to occur in a person who has CKD. Vaccines lower your risk for infection. Follow up with your doctor as directed: You will need to return for tests to monitor your kidney and nerve function, and your parathyroid hormone level. Your medicines may be changed, based on certain test results. You may also be referred to a library services assistant (kidney specialist). Write down your questions so you remember to ask them during your visits. ?? Copyright [employer] 2019 Information is for End User's use only and may not be sold, redistributed or otherwise used for commercial purposes. All illustrations and images included in CareNotes?? are the copyrighted property of [employer] or [employer] The above information is an medicaid business analyst only. It is not intended as medical advice for individual conditions or treatments. Talk to your doctor, nurse or pharmacist before following any medical regimen to see if it is safe and effective for you. Patient Education Isosorbide Mononitrate (By mouth) Isosorbide Mononitrate (qyx-jjo-OOZ-bide aou-ac-KCQ-trate) Prevents angina. This medicine is a nitrate. Brand Name(s): There may be other brand names for this medicine. When This Medicine Should Not Be Used: This medicine is not right for everyone. Do not use it if you had an allergic reaction to isosorbide or similar medicines. How to Use This Medicine: Tablet, Long Acting Tablet ?? Take your medicine as directed. Your dose may need to be changed several times to find what works best for you. You should take this medicine first thing in the morning. Carefully follow the same schedule each day so the medicine will work properly. ?? It is best to take this medicine on an empty stomach with at least half a glass of water. ?? Swallow the extended-release tablet whole. Do not crush, break, or chew it. ?? Missed dose: Take a dose as soon as you remember. If it is almost time for your next dose, wait until then and take a regular dose. Do not take extra medicine to make up for a missed dose. ?? Store the medicine in a closed container at room temperature, away from heat, moisture, and direct light. Drugs and Foods to Avoid: Ask your doctor or pharmacist before using any other medicine, including tsdo-ffe-arphyfs medicines, vitamins, and herbal products. ?? Do not use this medicine together with riociguat, sildenafil, tadalafil, or vardenafil. ?? Some foods and medicines can affect how isosorbide mononitrate works. Tell your doctor if you are using blood pressure medicine or if you drink alcohol. Warnings While Using This Medicine: ?? Tell your doctor if you are or . Tell him if you had a recent heart attackor you have heart failure, an enlarged heart, low blood pressure, or other heart problems. ?? This medicine may cause the following problems: ? Severe low blood pressure ? Worsening of chest pain caused by an enlarged heart ?? Medicines that treat chest pain sometimes cause headaches. These headaches are a sign that the medicine is working. Do not stop taking the medicine or change the time you take it in order to avoidthe headaches. Ask your doctor if you can take aspirin or acetaminophen to treat the headache. ?? This medicine may make you dizzy. Do not drive or do anything else that could be dangerous untilyou know how this medicine affects you. You may feel lightheaded when standing, so stand up slowly.Drinking alcohol may make these symptoms worse. ?? Do not stop using this medicine suddenly. Your doctor will need to slowly decrease your dose before you stop it completely. ?? Your doctor will do lab tests at regular visits to check on the effects of this medicine. Keep all appointments. ?? Keep all medicine out of the reach of children. Never share your medicine with anyone. Possible Side Effects While Using This Medicine: Call your doctor right away if you notice any of these side effects: ?? Allergic reaction: Itching or hives, swelling in your face or hands, swelling or tingling in your mouth or throat, chest tightness, trouble breathing ?? Severe or ongoing dizziness, lightheadedness, or fainting ?? Severe headache ?? Slow heartbeat, increased chest pain If you notice these less serious side effects, talk with your doctor: ?? Mild headache If you notice other side effects that you think are caused by this medicine, tell your doctor. Call your doctor for medical advice about side effects. You may report side effects to FDA at 6-761-UWP-7143 ?? Copyright [employer] 2019 Information is for End User's use only and may not be sold, redistributed or otherwise used for commercial purposes. The above information is an medicaid business analyst only. It is not intended as medical advice for individual conditions or treatments. Talk to your doctor, nurse or pharmacist before following any medical regimen to see if it is safe and effective for you. FISHERMAN documented in this encounter Medications at Time of Discharge Medication Sig Dispensed Refills Start Date End Date amitriptyline (ELAVIL) 25 MG tablet Take 25 mg by mouth at bedtime 11/03/2019 Biotin 5 MG 01/01/2020 busPIRone (BUSPAR) 5 MG tablet Take 10 mg by mouth 2 times daily 03/18/2020 dexlansoprazole (DEXILANT) 60 MG capsule Take 60 mg by mouth once daily 11/03/2019 furosemide (LASIX) 20 MG tablet Take 20 mg by mouth once daily 07/06/2019 isosorbide mononitrate CR 24hr (IMDUR) 30 MG tablet Take 1 tablet by mouth once daily for 30 days 30 tablet 06/14/2019 07/14/2019 metoprolol succinate XL 24hr (TOPROL XL) 50 MG tablet Take 1 tablet by mouth once daily 30 tablet 1 06/13/2019 07/06/2019 patiromer (VELTASSA) 8.4 g packet Take 1 [...] hours before or after. 30 packet 1 05/21/2019 07/11/2019 pravastatin (PRAVACHOL) 20 MG tablet Take 20 mg by mouth at bedtime 07/06/2019 documented as of this encounter Progress Notes * Becky Porras RN - 06/13/2019 3:45 PM CST Patient discharged in stable condition. Discharge instructions given and understood. IV and telemetry removed. Patient sent with home oxygen tank. FISHERMAN * Kelly Zaragoza RN - 06/13/2019 11:39 AM CST Referral received for home oxygen. Referral completed with [facility]. Kelly Zaragoza RN Case Manager [phone] FISHERMAN * Becky Porras RN - 06/13/2019 11:03 AM CST Mr. Armstrong will be monitored on telemetry vitals and I/O's' q4h and prn. garde manager helping set up home oxygen for discharge. FISHERMAN * Deena Nance PT - 06/12/2019 3:30 PM CST [facility] Physical Medicine and Rehabilitation Physical Therapy Initial Evaluation Note Patient: Howie Armstrong Med Record Number: [id number] Date of : 1965 Age: [age] year old Discharge Recommendation: Patient should be able to return home when functionally able (see currentamount of assist needed below). Frequency: Patient to be scheduled 5x/week while in hospital. Patient currently using no assistive device. Nurse contacted regarding patient status and/or discharge plan. Physician Orders: Evaluation and Treat PRECAUTIONS: Fall Activity Level ambulate DIAGNOSIS: Patient Active Problem List: Need for [...] Snoring MIRELLA (obstructive sleep apnea) Chest pain Past Medical History: Diagnosis Date ??? HTN (hypertension) ??? Kidney disease ??? 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 Rest: BP: 129/69 HR: 82 75 O2 SAT: 94% 97% RA 2.0L Room Air L O2 Ex/Gait/Activity BP: HR: 94 96 O2 SAT: 85% 96% RA 2.0L Room Air L O2 Cool Down BP: HR: 88 O2 SAT: 93% 97% RA 2.0L Room Air L O2 Observations:pt with increased work of breathing during long distance gait MENTAL STATUS: Alert and oriented times 3 DIRECTION FOLLOWING: Able to follow 1 step commands 100 % ROM: WFL B LE STRENGTH: WFL B LE SENSATION:intact lt touch TONE: normal FUNCTIONAL MOBILITY Not Tested Not Applicable Independent Stand by Assist Minimal Moderate Maximum Dependent Rolling x Scooting x Supine to/from sit x Sit to/from Stand x Bed to/ chair x Observation: pt sat EOB several minutes working on upright posture BALANCE: Sitting Static: good Dynamic: good Standing Static: good Dynamic: good minus Observation: GAIT: Weight Bearing: no restrictions Distance: 270 feet, 150'x1 Device: none Assistance: Stand By Assist Balance: fair+ Steps: NT good endurance Observation: slow aston, brief standing rest break x 2 during long distance gait ACTIVITY TOLERANCE: Patient's activity tolerance: good TREATMENT/INTERVENTIONS: evaluation, bed mobility training, transfer training, gait training, balance activities and monitoring of vitals EDUCATION: While performing PT, Patient was instructed in:Functional mobility training/weight bearing status and Safety awareness/fall precaution Patient demonstrated Good understanding of instructions given. INFORMED CONSENT TO TREATMENT: Plan of care including recommended therapy, goals and frequency, discussed with patient who understands and agrees to proceed. ASSESSMENT: Patient's functional performance presently limited due to: medical condition, endurance, transfers,gait and balance and Patient would benefit from additional Physical Therapy to achieve the following functional goals to enhance independence. Short Term Goals: Goal Formation With patient Patient will perform bed mobility: Independent Patient will transfer sit to/from stand: Independent Patient will ambulate 270 feet with Independent and appropriate AD Long-Term Goal(s): Patient to be independent/baseline with functional mobility and self care and be able to safely discharge to prior level of care Equipment Issued: gait belt Plan: If patient is discharged from the facility, this note serves as a discharge summary if further physical therapy visits did not occur. Following therapy session, patient left in bed, with call light within reach, with family in room and with RNBecky, PT 06/12/2019 FISHERMAN * Gemma Heart MD - 06/12/2019 1:25 PM CST GENERAL INTERNAL MEDICINE Progress note 06/12/2019 1:25 PM Admit Date: 06/10/2019 Subjective: Patient was seen and examined at bedside. He is feeling better. His shortness of breath is improving. He denies chest pain, abdominal pain, nausea vomiting. No acute event overnight. Medications:: Current Facility-Administered Medications Medication ??? 0.9% NaCl injection 3 mL And ??? 0.9% NaCl injection 1-10 mL ??? amitriptyline (ELAVIL) tablet 25 mg ??? aspirin chew tablet 81 mg ??? busPIRone (BUSPAR) tablet 5 mg ??? furosemide (LASIX) injection 40 mg ??? iopamidol (ISOVUE 370) 76 % contrast ??? isosorbide mononitrate CR 24hr (IMDUR) tablet 30 mg ??? metoprolol succinate XL 24hr (TOPROL XL) tablet 50 mg ??? nitroGLYCERIN (NITROSTAT) tablet 0.4 mg ??? patiromer (VELTASSA) packet 8.4 g ??? perflutren Lipid Microsphere (DEFINITY) injection SUSP 0.5 mL ??? pravastatin (PRAVACHOL) tablet 20 mg Physical Examination: BP 112/63 Pulse 67 Temp 97.6 ??F (36.4 ??C) (Oral) Resp 20 Ht 1.854 m (6' 1 ) Wt 156.5 kg (345 lb) SpO2 95% BMI 45.52 kg/m2 GEN: Alert and oriented in NAD HEENT: NCAT, EOMI, MMM RESP: Clear to auscultation bilaterally CARDIO: Regular rate and rhythm, Nl S1 and S2 No gallops. GI: Abdomen soft and non tender, non-distended, +BS, no organomegaly EXT: Bilateral lower extremities 1+ edema NEURO: No focal deficits PSYCH: A+Ox3 SKIN: Warm and dry, no rashes or lesions Labs: CBC: Recent Labs Lab Units 06/11/19222806/10/19 2257 WBC 10??3/uL 11.7* 15.2* RBC 10??6/uL 4.32 4.67 HGB g/dL 12.2* 13.3* HCT % 39.5 43.1 BMP: Recent Labs Lab Units 06/12/19 0315 06/11/19222806/10/19 2257 NA mmol/L 143 145 142 CL mmol/L 106 106 106 CO2 mmol/L 27 30* 23 BUN mg/dL 18 20 26 CREATININE mg/dL 1.2 1.3* 1.4* GLU mg/dL 98 86 91 CALCIUM mg/dL 9.3 9.4 9.2 Magnesium: No results for input(s): MG in the last 168 hours. Phosphorus: No results for input(s): PHOS in the last 168 hours. Coagulation: No results for input(s): PT, INR, APTT in the last 168 hours. Endocrine: No results for input(s): TSH, A1C in the last 168 hours. LFTs: Recent Labs Lab Units 06/11/19 2229 06/10/19 2257 AST Units/L 18 28 ALT Units/L 18 21 TBILI mg/dL 0.6 0.4 ALB g/dL 2.7* 2.9* Radiology: Xr Chest 2vw Result Date: 06/11/2019 IMPRESSION: Left lower lobe opacity may represent atelectasis and/or airspace disease. Small left pleural effusion may contribute. Dictated by Adelaide Hernandez MD (residential real estate agent). IDr. HARRISON have personally reviewed and interpreted this examination/study. This report was electronically signed by HARRISON SANDHU on 06/11/2019 7:38 AM . Xr Abdomen Kub Result Date: 06/12/2019 IMPRESSION: Nonobstructive bowel gas pattern. Dictated by Flaquito Hernandez MD (residential real estate agent). Dr. HARRISON Resendiz have personally reviewed and interpreted this examination/study. This report was electronically signed by HARRISON SANDHU on 06/12/2019 9:55 AM . Nm Myocard Perf Stress Only Result Date: 06/11/2019 Impression: 1. No evidence of myocardial infarction or stress-induced ischemia. 2. Normal left ventricular wall motion and thickening. 3. The calculated left ventricular ejection fraction of 71%. This report was electronically signed by KATHRYN TENORIO D.O. on 06/11/2019 5:[address] Angio Chest Pulm Embolism Result Date: 06/11/2019 IMPRESSION: 1. No evidence of central pulmonary embolism. Evaluation of segmental and subsegmental pulmonary arteries is degraded by suboptimal contrast opacification. 2. Dilated main pulmonary artery, likely representing pulmonary hypertension. 3. Enlarged thyroid gland. Dictated by Adelaide Wiggins MD (residential real estate agent). Dr. Sohail Resendiz M.D. have personally reviewed and interpreted this examination/study. This report was electronically signed by Sohail JOHNSON M.D. on 06/11/2019 9:05 AM . Microbiology Results (Displays last 21 days for this encounter ONLY) No results found for the last 504 hours. Assessment: Problem List/Plan: # acute respiratory failure: Improving Possible secondary to fluid overload CT: Negative for PE Continue Lasix PT consulted for 5 min walk and evaluate O2 saturation with activity Will continue monitor # chest pain: Resolved Troponin negative EKG did not show acute ischemic changes Lexiscan unremarkable, EF 71 percent Continue with aspirin, statin, metoprolol Will continue monitor # history of CHF: Echo showed EF 75 percent Continue with aspirin, statin, metoprolol, Imdur Will continue monitor # HTN Continue with metoprolol, Lasix Will continue monitor # Eric on CKD stage III: Improving Continue Lasix Will continue monitor # MIRELLA Needs follow-up as outpatient # morbid obesity Encouraged on weight loss DVT PPx: Heparin Code Status: Full Discharge Planning: Inpatient Gemma Heart MD General Internal Medicine 06/12/2019 1:25 PM FISHERMAN * Kelly Zaragoza RN - 06/12/2019 10:51 AM CST A Chart Review has been conducted by Case Management. Anticipated level of care at discharge: Unknown Home Discharge Plan: discharge to home Basic Needs Assessment (BNA) Score: 9 PCP: Natasha Bates PA-C Per nursing assessments: Transportation (who): patient states he will have a ride home at discharge Commutator Inspector/Support: Commutator Inspector/Support Person - Relationship:: servando armstrong/tianna martinez Commutator Inspector person: Commutator Inspector/Support Person Contact #: [phone] / [phone] Home/Functional Status: Functional and Cognitive Status Is person deaf or have serious hearing difficulty?: No Is person blind or have serious difficulty seeing?: No Does person have serious difficulty walking/climbing stairs?: No Does person have difficulty dressing/bathing?: No Does person have difficulty doing errands alone?: No Does person have difficulty concentrating/remembering/making decisions?: No Equipment with patient: None Assistive Devices: None ?. Will continue to follow. For any questions or needs please contact: [employer] Name/Phone number: Kelly Zaragoza RN [phone] FISHERMAN * Becky Porras RN - 06/12/2019 10:15 AM CST Mr. Armstrong will be monitored continuously on telemetry and VS and I/O's monitored Q4H to assure stability. FISHERMAN * Livia Martinez RN - 06/11/2019 3:55 PM CST 1530 pt present for Nuc med Lexiscan stress test; possible 2 day stress test, pt aware; VSS; LS diminished throughout; pt on 2L RESEARCH RN SPEC sats 97%[id number] informed consent obtained per Dr. Call 1536 Lexiscan/ Myoview adm'd pt c/o mild chest pressure and nausea and mild headache; VSS 1540 test completed; pt tolerated well; chest pressure and headache resolved; nausea resolving; VSS; pt resting comfortably in bed; given water to sip; awaiting post stress images FISHERMAN * Tobias Pagan MD - 06/11/2019 10:06 AM CST GENERAL INTERNAL MEDICINE Progress note 06/11/2019 10:58 AM Admit Date: 06/10/2019 Subjective: Patient was seen and examined at bedside. Complaints of shortness breath that is improving. Also complaints of bilateral leg swelling. No fever, chills, cough, or sputum production. Medications:: Current Facility-Administered Medications Medication ??? 0.9% NaCl injection 3 mL And ??? 0.9% NaCl injection 1-10 mL ??? amitriptyline (ELAVIL) tablet 25 mg ??? aspirin chew tablet 324 mg ??? aspirin chew tablet 81 mg ??? busPIRone (BUSPAR) tablet 5 mg ??? furosemide (LASIX) injection 40 mg ??? iopamidol (ISOVUE 370) 76 % contrast ??? isosorbide mononitrate CR 24hr (IMDUR) tablet 30 mg ??? nitroGLYCERIN (NITROSTAT) tablet 0.4 mg ??? patiromer (VELTASSA) packet 8.4 g ??? pravastatin (PRAVACHOL) tablet 20 mg Current Outpatient Medications Medication Sig ??? amitriptyline (ELAVIL) 25 MG tablet Take [...] 50 mg by mouth once daily ??? patiromer [...] medications 3 hours before or after. ??? POTASSIUM PO ??? pravastatin (PRAVACHOL) 20 MG tablet Take 20 mg by mouth at bedtime Physical Examination: BP 123/43 Pulse 72 Temp 97.6 ??F (36.4 ??C) (Oral) Resp 20 Ht 1.854 m (6' 1 ) Wt 156.5 kg (345 lb) SpO2 95% BMI 45.52 kg/m2 GEN: Alert and oriented in NAD, morbidly obese HEENT: NCAT, EOMI, MMM RESP: Crackles on auscultation bilaterally CARDIO: Regular rate and rhythm, Nl S1 and S2 GI: Abdomen soft and non tender, non-distended, +BS EXT: 1 to 2+ edema in lower extremities bilaterally NE URO: No focal deficits Labs: CBC: Recent Labs Lab Units 06/10/19 2257 WBC 10??3/uL 15.2* RBC 10??6/uL 4.67 HGB g/dL 13.3* HCT % 43.1 BMP: Recent Labs Lab Units 06/10/19 2257 NA mmol/L 142 CL mmol/L 106 CO2 mmol/L 23 BUN mg/dL 26 CREATININE mg/dL 1.4* GLU mg/dL 91 CALCIUM mg/dL 9.2 Mag LFTs: Recent Labs Lab Units 06/10/19 2257 AST Units/L 28 ALT Units/L 21 TBILI mg/dL 0.4 ALB g/dL 2.9* Radiology: Xr Chest 2vw Result Date: 06/11/2019 IMPRESSION: Left lower lobe opacity may represent atelectasis and/or airspace disease. Small left pleural effusion may contribute. Dictated by Adelaide Hernandez MD (residential real estate agent). Dr. HARRISON Resendiz have personally reviewed and interpreted this examination/study. This report was electronically signed by HARRISON SANDHU on 06/11/2019 7:[address] Angio Chest Pulm Embolism Result Date: 06/11/2019 IMPRESSION: 1. No evidence of central pulmonary embolism. Evaluation of segmental and subsegmental pulmonary arteries is degraded by suboptimal contrast opacification. 2. Dilated main pulmonary artery, likely representing pulmonary hypertension. 3. Enlarged thyroid gland. Dictated by Adelaide Wiggins MD (residential real estate agent). Dr. Sohail Resendiz M.D. have personally reviewed and interpreted this examination/study. This report was electronically signed by Sohali JOHNSON M.D. on 06/11/2019 9:05 AM . Assessment: Howie Armstrong is a 53 year old male with history of morbid obesity, hypertension and obstructive sleep apnea who presented with complaints of chest pain and shortness of breath. Problem List/Plan: # chest pain rule out acute coronary syndrome. Will obtain Lexiscan stress test. Continue aspirin, pravastatin and resume metoprolol XL after stress test # acute CHF diastolic versus systolic/ possible pulmonary hypertension on CT chest; check echocardiogram to assess structure and function of heart. Continue IV Lasix. Resume metoprolol XL after stress test. Continue Imdur # possible pneumonia is ruled out. On CTA of chest there is no consolidation and patient denies anysymptoms of pneumonia including fever, chills, cough, mucus, sputum production. Will discontinue IVantibiotics # hypertension; continue Imdur and resume metoprolol XL after stress test # CKD stage 3; patient follows up with library services assistant at [facility]. monitor renal function while on IV Lasix # morbid obesity # obstructive sleep apnea; patient to follow up with PCP for sleep study and setting up CPAP at home DVT PPx: Lovenox Code Status: Code Tobias Pagan MD General Internal Medicine 06/11/2019 10:58 AM FISHERMAN documented in this encounter H&P Notes * Steve Smith MD - 06/11/2019 3:23 AM CST Images from the original note were not included. Internal Medicine Admission Note Name: Howie Armstrong Admit Date and Time: 06/10/2019 11:00 PM Chief Complaint: Chest Pain History of Present Illness: Howie Armstrong is a 53 year old male with history of morbid obesity, CKD, hypertension and sleep apnea presented to ER with chest pain and shortness of breath. His chest pain started 2 hrs prior to arrival to hospital. He also reports exertional dyspnea with a few steps since Tuesday. Before then hewas able to walk without having any problem. He describes his chest pain as dull/pressure, radiating to left arm, mild to moderate. Denies having any palpitation, nausea, vomiting, fever, chills, lightheadedness, dizziness, orthopnea or PND. He says he was having productive cough about a week ago and he thought he was having viral illness which has been improving since then. Patient reports he had chemical cardiac stress test 2 years ago and it was negative. He was recently seen by Cardiology in the clinic dobutamine stress test was scheduled. On presentation to ER; pt was found to have left lower opacity on chest x-ray. CT PE protocol was negative for PE. Troponin was unremarkable. His labs were remarkable for leukocytosis. BNP was slightly elevated. Care Everywhere/OSH MR reviewed. ROS Positives are in bold. GEN: Denies change in weight, appetite, fever, chills, fatigue, night sweats Eye/Ear/Nose: Denies visual changes, rhinitis, epistaxis Throat: Denies sore throat, dysphagia RESP: Denies cough, sputum, shortness of breath CARDIAC: Denies chest pain, palpitations, orthopnea, edema GI: Denies nausea, vomiting, abdominal pain, diarrhea, constipation : Denies urinary urgency, dysuria, incontinence Male/Female Denies sores, discharge M/S: Denies arthralgias, myalgias Heme: Denies bleeding, bruising SKIN: Denies rash, pruritis, erythema NEURO: Denies headache, dizziness, lightheadedness Past Medical History: Past Medical History: Diagnosis Date ??? HTN (hypertension) ??? Kidney disease ??? MIRELLA (obstructive sleep apnea) 05/13/2019 Surgical History: Bladder surgery in 2017 for hematuria Social History: Social History Socioeconomic History ??? [...] Narrative ??? Not on file Family History: Hypertension and some type of heart disease - mother, brother, sister Denies any family hx of chronic kidney disease or dialysis Allergies: No Known Allergies Home Medications: Current Medications amitriptyline (ELAVIL) 25 MG tablet Take 25 mg by mouth at bedtime amoxicillin (AMOXIL) 500 MG tablet Take 500 mg by mouth every 8 hours Biotin 5 MG busPIRone (BUSPAR) 5 MG tablet Take 5 mg by mouth 3 times daily dexlansoprazole (DEXILANT) 60 MG capsule Take 60 mg by mouth once daily furosemide (LASIX) 20 MG tablet Take 20 mg by mouth once daily ISOSORBIDE MONONITRATE PO Take 30 mg by mouth metoprolol succinate XL 24hr (TOPROL XL) 50 MG tablet Take 50 mg by mouth once daily patiromer (VELTASSA) 8.4 g packet Take 1 [...] oral medications 3 hours before or after. POTASSIUM PO pravastatin (PRAVACHOL) 20 MG tablet Take 20 mg by mouth at bedtime Objective: BP 122/71 Pulse 76 Temp 97.6 ??F (36.4 ??C) (Oral) Resp 19 Ht 1.854 m (6' 1 ) Wt 156.5 kg (345 lb) SpO2 99% BMI 45.52 kg/m2 Estimated body mass index is 45.52 kg/m?? as calculated from the following: Height as of this encounter: 1.854 m (6' 1 ). Weight as of this encounter: 156.5 kg (345 lb). Exam GEN No acute distress. Morbidly obese. HEENT Sclera anicteric. NECK Supple, no lymphadenopathy CHEST CTA&P B, normal diaphragmatic movement. HEART RRR, Normal S1, S2. No murmurs/rubs/gallops. ABD Soft, NT, ND, +BS. BACK No CVA tenderness. No scoliosis EXT No clubbing, cyanosis or edema. NEURO Alert, oriented, and appropriately interactive. Moving all extremities LABS: Labs reviewed Recent Labs Component Name 06/10/19225604/18/19 1505 WBC 15.2* 13.7* HGB 13.3* 13.2* HCT 43.1 42.9 MCV 92.3 92.1 Recent Labs Component Name 06/10/19225604/18/19 1505 NA 142 144 CL 106 104 CO2 23 32* BUN 26 24 CREATININE 1.4* 1.3* GLU 91 87 Recent Labs Component Name 06/10/19 2257 04/18/19 1505 PROT 7.8 - ALB 2.9* 2.9* ALKPHOS 80 - AST 28 - ALT 21 - TBILI 0.4 - Recent Labs Component Name 06/11/19 0049 06/10/192256 TROPONINI 0.024 0.020 ECG: My personal interpretation of the EKG: Normal rate and rhythm. Normal axis and intervals. Nonspecific ST-T changes. Enlarged left atrium. Imaging reviewed Assessment/Plan: Active Problems: Chest pain Chest pain-patient will need stress test. Will wait his respiratory distress to improve and do Lexiscan or dobutamine stress echo. Heart score is 3-4. -start aspirin, resume home dose metoprolol XL 50 daily and pravastatin. Check lipid panel. Respiratory distress-possible CHF (BNP might be falsely low in the setting of morbid obesity) and possible pneumonia. -start diuresis with IV Lasix -cap treatment with ceftriaxone and azithromycin. Check procalcitonin. -echo in the morning CKD stage 3-patient is following with Nephrology here. Morbid obesity Likely sleep apnea-patient will need sleep and CPAP at home. DVT PPx: Lovenox Code Status: Full code Diet: Regular diet Discharge Planning: PCP: Natasha Bates PA-C PT/OT Consulted: Yes SW/Dispo: inpatient This patient was seen by me at 5 am on 06/11/2019 and total time spent on this admission including review of outside records was about 50 minutes. Steve Smith MD 06/11/2019 6:06 AM [phone] FISHER[place] documented in this encounter Procedure Notes * Kimberly Rodriguez MD - 06/13/2019 3:45 PM CST [facility] Department Myocardial Perfusion Imaging Pharmacological Stress ECG Interpretation Procedure: 1. The patient received 0.4 mg of intravenous Lexiscan over ten seconds. 2. The resting heart rate was 77 bpm; maximum heart rate was 98 bpm. 3. The resting blood pressure was 122/55 mmHg and was 127/66 mmHg 4 minutes after termination of the pharmacologic vasodilator. 4. Side Effects:None 5. Chest pain: None Interpretation: 1. Rest ECG: NSR with PACs. 2. Stress ST segment depression: None 3. Stress ST segment elevation: None 4. T wave changes were absent Impression: Normal Lexiscan Cardiolyte stress test Please see nuclear imaging under separate report Electronically signed by: Kimberly Rodriguez MD FISHERMAN documented in this encounter ED Notes * Claudia Rossi RN - 06/12/2019 5:20 PM CST Spoke with Mr. Armstrong, verified and provided results. HIV Ag/Ab and HCV Ab screens negative. Educated patient about both communicable diseases. Pt verbalized understanding and gratitude. Claudia Rossi HARNESS TIER Nurse Navigator Emergency Department [place] [id number] FISHERMAN * Shirin Mckenna RN - 06/11/2019 11:30 PM CST Report called to [facility] for admit to [facility] FISHERMAN * Corina Wills MD - 06/11/2019 11:00 PM CST ASSUMED CARE NOTE Patient signed out to me by Dr. Lo at 11:00 PM. Briefly, Howie Armstrong is a 53 year old male is being evaluated for CP and SOB. Pmhx of CKD. At thistime the patient's condition is Stable. Thus far, studies reveal neg trop. Pending bed availability. Plan is Admit to medicine. Vitals: 06/11/19 1539 06/11/19 1540 06/11/19 1720 06/11/19 1728 BP: 120/70 127/66 124/69 Pulse: 93 83 77 75 Resp: 13 Temp: SpO2: 98% 98% 98% Weight: Height: ED Course: 11:59 PM: Pt assigned bed and admitted during rounds Clinical Impression: 1. Chest pain, unspecified type 2. Hypoxia Disposition: Admit to medicine By signing my name below, I, Andrew Casas, attest that this documentation has been prepared under the direction and in the presence of Dr. Wills. Signed: Richard Knapp. I, Dr. Wills, personally performed the services described in this documentation. All medical record entries made by the scribe were at my direction and in my presence. I have reviewed the chart and agree that the record reflects my personal performance and is accurate and complete. Electronically signed: Corina Wills MD, MPH FISHERMAN * Shirin Mckenna RN - 06/11/2019 8:33 PM CST Resting on stretcher in no apparent distress. FISHERMAN * Shirin Mckenna RN - 06/11/2019 6:01 PM CST Pt reports pain to left foot. States he is prone to getting cellulitis several times a year and thinks it is beginning again. has faint redness and warmth to top of foot near the 2d/3rd toe. FISHERMAN * Shirin Mckenna RN - 06/11/2019 5:29 PM CST Assumed care of pt. Pt resting in bed in no apparent distress. Denies any complaints at this time FISHERMAN * Fabián Lo MD - 06/11/2019 2:46 PM CST ASSUMED CARE NOTE Patient signed out to me by Dr. Martinez at 3:00 PM. Briefly, Howie Armstrong is a 53 year old male is being evaluated for chest pain and SOB. Pt has history of CKD. At this time the patient's condition is Stable. Thus far, studies reveal troponin negative Plan is admit to medicine Reassessment: 3:47 PM Patient is resting comfortably. Vitals are stable. Patient Vitals for the past 6 hrs: Pulse Resp BP 06/11/19 1728 75 -- -- 06/11/19 1720 77 13 124/69 ED Course: 10:03 PM: Spoke with patient regarding symptoms and workup at this time. Patient states he is having epigastric and periumbilucal fullness and minor pain since his stress test. Denies chest pain or symptoms from his previous admission symptoms. Patient ordered for repeat labs and KUB as he feels gassy . Will continue to monitor. Clinical Impression: 1. Chest pain, unspecified type 2. Hypoxia Disposition: Patient signed out to Dr. Wills at 11:00 PM. At this time the patient's condition is Stable. Pending bed availability Disposition admit to Medicine By signing my name below, I, Adrianne Mccormick, attest that this documentation has been prepared under the direction and in the presence of Dr. Lo. Signed: Richard Duenas. Date: 06/11/2019. Time:2:46 PM. I, Dr. Fabián Lo, personally performed the services described in this documentation. All medical record entries made by the scribe were at my direction and in my presence. I have reviewed the chart and agree that the record reflects my personal performance and is accurate and complete. Electronically signed: Dr. Fabián Lo Date: 06/13/2019 Time: 6:34 AM FISHERMAN * Khushi Martinez MD - 06/11/2019 6:56 AM CST ASSUMED CARE NOTE Patient signed out to me by Dr. Meza at 6:56 AM. Briefly, Howie Armstrong is a 53 year old male is being evaluated for SOB and chest pain. Hx of CKD. Pt followed with cardiology in April. He had dull, off-and-on chest pain beginning last night and decided to come in for evaluation. Here, pt became hypoxic to low 90s. Placed on 2L O2. At this timethe patient's condition is Stable. Thus far, studies reveal 2 negative trops, EKG unremarkable. Pending available bed. Plan is admit to medicine. Vitals: 06/11/19 0820 06/11/19 0900 06/11/19 1140 06/11/19 1200 BP: 123/43 103/50 114/53 Pulse: 72 67 66 Resp: Temp: 97.8 ??F (36.6 ??C) SpO2: 95% 96% 96% Weight: Height: ED Course: 7:36 AM: Pt has no complaints at this time. Awaiting admission. 2:03 PM: Pt going to stress test. Patient signed out to Dr. Lo at 3:00 PM. At this time the patient's condition is Stable . Pending available bed Disposition admit to medicine Clinical Impression: 1. Chest pain, unspecified type 2. Hypoxia Disposition: Signed out to Dr. Lo By signing my name below, I, Dennise Page, attest that this documentation has been prepared underthe direction and in the presence of Dr. Martinez. Signed: Richard Myrick. I, Dr. martinez, personally performed the services described in this documentation. All medical recordentries made by the scribe were at my direction and in my presence. I have reviewed the chart and agree that the record reflects my personal performance and is accurate and complete. Electronically signed: Dr. martinez Date: 06/11/19 Time: 3:11 PM FISHERMAN * Myriam Agudelo RN - 06/11/2019 4:01 AM CST Patient to room 4 for closer observation. Patient placed on inpatient hospital bed for increased comfort. FISHERMAN * Aby Fortune RN - 06/11/2019 12:29 AM CST Repeat EKG done, pt noted to have blue lips and be flushed in the checks. MD notified. Placed on 2LNC. 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 He states that it began while he was at rest at home. Nothing makes it better or worse. He thought the pain might have been indigestion but it did not improve when he took a Tums. He states SOB as an associated sx. He states that it began 24 hours ago. Pt states that he normally does not have a problem moving around but he cannot walk more than a few feet without getting winded since the onset of the SOB. Pt also reports that he had a viral illness with a productive cough a week ago that resolved a few days ago. He describes his CP as dull and like an ache. It sometimes radiates to the left arm but not to the back. Pt denies nausea and vomiting. Pthas no other medical complaints at this time. Past Medical History: Diagnosis Date ??? HTN (hypertension) ??? Kidney disease ??? MIRELLA (obstructive sleep apnea) 05/13/2019 No past surgical history on file. Social History Socioeconomic History ??? Marital status: Spouse name: Not on file ??? Number of children: Not on file ??? Years of education: Not on file ??? Highest education level: Not on file Occupational History ??? Not on file Social Needs ??? Financial resource strain: Not on file ??? Food insecurity: Worry: Not on file Inability: Not on file ??? Transportation needs: Medical: Not on file Non-medical: Not on file Tobacco Use ??? Smoking status: Never Smoker ??? Smokeless tobacco: Never Used Substance and Sexual Activity ??? Alcohol use: Yes Comment: maybe 4 drinks a month ??? Drug use: Never ??? Sexual activity: Not on file Lifestyle ??? Physical activity: Days per week: Not on file Minutes per session: Not on file ??? Stress: Not on file Relationships ??? Social connections: Talks on phone: Not on file Gets together: Not on file Attends [employer] service: Not on file Active member of club or organization: Not on file Attends meetings of clubs or organizations: Not on file Relationship status: Not on file ??? Intimate partner violence: Fear of current or ex partner: Not on file Emotionally abused: Not on file Physically abused: Not on file Forced sexual activity: Not on file Other Topics Concern ??? Not on file Social History Narrative ??? Not on file Review of Systems: (+) positive All systems negative except as marked. Constitutional: Negative for fever, +recent illness HENT: Negative for sore throat. Eyes: Negative for visual changes Respiratory: + SOB Cardiovascular: +CP Gastrointestinal: Negative abdominal pain, nausea, vomiting, diarrhea Genitourinary: Negative for difficulty urinating, hematuria, dysuria Musculoskeletal: Negative for neck pain, back pain, myalgia Skin: Negative for rash, itching Neurological: Negative for NEVAREZ, dizziness, weakness, numbness, tingling Psychiatric: Negative for SI, hallucinations, anxiety Vitals: 06/11/19 0029 06/11/19 0129 06/11/19 0346 06/11/19 0508 BP: 132/71 153/67 122/71 Pulse: 89 84 93 76 Resp: 14 16 16 19 Temp: SpO2: 92% 100% 95% 99% Weight: Height: Exam: Constitutional: well developed, well nourished, no acute distress HENT: normocephalic, atraumatic, moist oral mucosa, conjunctiva normal, cyanotic lips Eyes: PERRL, no drainage Neck: supple, normal ROM Cardiovascular: regular rate and rhythm, no murmur Respiratory: clear to auscultation bilaterally, no wheezes Abdomen: soft, non-tender, non-distended Musculoskeletal: no edema or deformities Skin: warm, dry, no lesions Neurological: awake, alert&Ox4, moving all extremities, no focal motor/sensation deficits. Psychiatric: mood and affect normal MDM: Problem List: 1) CP 2) SOB Differential diagnosis to evaluate in the emergent setting: ACS PNA PE other Workup: See lab testing and radiography ordered Treatment plan: Symptom control nitro, ASA, albuterol treatment. Workup with labs/imaging Reassess Results: Labs Reviewed CBC W AUTO DIFFERENTIAL - Abnormal; Notable for the following components: Result Value WBC 15.2 (*) Hemoglobin 13.3 (*) MCHC 30.9 (*) All other components within normal limits COMPREHENSIVE METABOLIC PANEL - Abnormal; Notable for the following components: Creatinine 1.4 (*) Potassium 4.7 (*) Albumin 2.9 (*) Albumin/Globulin Ratio 0.6 (*) eGFR 53 (*) All other components within normal limits DIFFERENTIAL MANUAL - Abnormal; Notable for the following components: Neutrophils Absolute Manual 8.82 (*) Lymphocyte Absolute 5.32 (*) Eosinophils Absolute Manual 0.46 (*) All other components within normal limits D-DIMER - Abnormal; Notable for the following components: D-Dimer Quantitative 1.21 (*) All other components within normal limits B-TYPE NATRIURETIC PEPTIDE - Abnormal; Notable for the following components: BNP 225 (*) All other components within normal limits BLOOD GASES CRISTY - Abnormal; Notable for the following components: pCO2 Mixed Venous 54 (*) pO2 Mixed Venous 32 (*) HCO3 Mixed Venous 29.0 (*) TCO2 Mixed Venous 30.7 (*) Base Excess Venous 2.4 (*) Hemoglobin Mixed Venous 12.5 (*) Oxyhemoglobin Mixed Venous 63.3 (*) All other components within normal limits TROPONIN I - Normal TROPONIN I - Normal TROPONIN I - Normal XR CHEST 2VW (Results Pending) CT ANGIO CHEST PULM EMBOLISM (Results Pending) EKG Interpretation: Interpreted by me: Date: 06/11/2019 Time: 12:22 R&R: NSR with a ventricular rate of 79 bpm Additional findings: Q waves anteriorly ED course: The patient's Oxygen Saturation Monitor was interpreted by me. The reading was 98%. The patient wason 2L NC at the time of the reading. This is interpreted as adequate with supplementation. D-dimer positive. Plan for PE scan. Drain ill last week, but just occasional cough presently. Afebrile. 3:10 AM Scan negative for PE, blood gas is within normal limits, BNP within normal limits, still requiring oxygen. Will admit to medicine. 3:21 AM After discussion with medicine, the patient will be admitted to their service for further management of care. -I have reviewed the diagnostic findings with the patient and they have had an opportunity to ask me any questions they have about care, diagnosis, and reason for admission. The patient states understanding and agrees to admission. Consult No Procedure done at this time No Ultrasound done at this time No CRITICAL CARE IN THE ED No Orders and Medicine administered during this encounter: Orders Placed This Encounter ??? XR CHEST 2VW ??? CT ANGIO CHEST PULM EMBOLISM ??? TROPONIN I ??? TROPONIN I ??? CBC W AUTO DIFFERENTIAL ??? COMPREHENSIVE METABOLIC PANEL ??? DIFFERENTIAL MANUAL ??? D-DIMER ??? B-TYPE NATRIURETIC PEPTIDE ??? BLOOD GASES CRISTY ??? PROCALCITONIN LEVEL ??? LIPID PROFILE ??? OXYGEN ??? EKG 12-LEAD ??? EKG 12-LEAD ??? AND Linked Order Group ??? 0.9% NaCl injection 3 mL ??? 0.9% NaCl injection 1-10 mL ??? aspirin chew tablet 324 mg ??? nitroGLYCERIN (NITROSTAT) tablet 0.4 mg ??? albuterol-ipratropium (DUO-NEB) nebulizer solution 3 mL ??? 0.9% NaCl IV Bolus ??? iopamidol (ISOVUE 370) 76 % contrast ??? furosemide (LASIX) injection 40 mg ??? aspirin chew tablet 81 mg ??? atorvastatin (LIPITOR) tablet 20 mg ??? busPIRone (BUSPAR) tablet 5 mg ??? metoprolol succinate XL 24hr (TOPROL XL) tablet 50 mg ??? patiromer (VELTASSA) packet 8.4 g ??? cefTRIAXone (ROCEPHIN) 2,000 mg in 0.9% NaCl 50 mL IVPB ??? azithromycin (ZITHROMAX) tablet 250 mg Medications 0.9% NaCl injection 3 mL (3 mL Intracatheter $ Given 06/11/19 0117) And 0.9% NaCl injection 1-10 mL (has no administration in time range) aspirin chew tablet 324 mg (324 mg Oral Not Administered 06/10/19 2257) nitroGLYCERIN (NITROSTAT) tablet 0.4 mg (0.4 mg Sublingual $ Given 06/11/19 0031) iopamidol (ISOVUE 370) 76 % contrast (100 mL Intravenous $ Given - Contrast 06/11/19 0148) furosemide (LASIX) injection 40 mg (has no administration in time range) aspirin chew tablet 81 mg (has no administration in time range) atorvastatin (LIPITOR) tablet 20 mg (has no administration in time range) busPIRone (BUSPAR) tablet 5 mg (has no administration in time range) metoprolol succinate XL 24hr (TOPROL XL) tablet 50 mg (has no administration in time range) patiromer (VELTASSA) packet 8.4 g (has no administration in time range) cefTRIAXone (ROCEPHIN) 2,000 mg in 0.9% NaCl 50 mL IVPB (has no administration in time range) azithromycin (ZITHROMAX) tablet 250 mg (has no administration in time range) albuterol-ipratropium (DUO-NEB) nebulizer solution 3 mL (3 mL Inhalation $ Given 06/11/19 0129) 0.9% NaCl IV Bolus (0 mL Intravenous Stopped 06/11/19 0322) Clinical Impression: 1. Chest pain, unspecified type 2. Hypoxia Scripts: Disposition: Patient signed out to Dr. Martinez at 7:00 AM. At this time the patient's condition is Stable . Pending bed availability Disposition admit to medicine Follow-up: By signing my name below, I, Marisel Alegre, attest that this documentation has been prepared under the direction and in the presence of Dr. Meza. Signed: Richard Humphrey. I, Dr. Meza, personally performed the services described in this documentation. All medical record entries made by the scribe were at my direction and in my presence. I have reviewed the chart and agree that the record reflects my personal performance and is accurate and complete. FISHERMAN documented in this encounter Miscellaneous Notes * Coding Query - Gemma Heart MD - 06/13/2019 3:45 PM CST DOCUMENTATION CLARIFICATION REQUEST TO: Dr. Herbert Heart FROM: No Reed, MSN, RN, CDS Email: [email or web address] Acute diastolic (congestive) heart failure treated and resolved. Acute diastolic heart failure ruled out. Other explanation of clinical findings Unable to determine (no explanation for clinical findings) The medical record reflects the following clinical evidence: Clinical Indicators: BNP 225; SOB; Echo: Left ventricular systolic function is hyperdynamic with anejection fraction by Biplane Method of Discs of 75 %. The left ventricular diastolic function is normal H&P: respiratory distress - poss CHF (BNP might be falsely low in the setting of morbid obesity) - start diuresis with IV Lasix 06/11 IM PN: acute CHF diastolic versus systolic. 1 to 2+ edema in lower extremities bilaterally 06/12 IM PN: acute respiratory failure improving, poss 2/2 fluid overload - cont Lasix. h/o CHF - Echo showed 75% - Continue with aspirin, statin, metoprolol, Imdur Risk Factor(s): hypertension; history of CHF Treatment: IV Lasix, ASA, statin, Metoprolol, Imdur, Echo Please clarify and document your clinical opinion in the progress notes and discharge summary including the definitive and/or presumptive diagnosis, (suspected or probable), related to the above clinical findings. Please include clinical findings supporting your diagnosis. PHYSICIAN CLARIFICATION OF PATIENT DIAGNOSIS/PROCEDURE Acute diastolic heart failure ruled out FISHERMAN documented in this encounter Plan of Treatment Not on file documented as of this encounter Procedures Procedure Name Priority Date/Time Associated Diagnosis Comments CARDIAC EKG ORDER 07/11/2019 10: 24 AM [facility] CARDIAC EKG ORDER 07/11/2019 10: 24 AM [facility] CARDIAC EKG ORDER 07/02/2019 12: 45 PM [facility] CARDIAC EKG ORDER 06/20/2019 3:5 6 PM [facility] CARDIAC PROCEDURE ORDER 06/16/2019 4:12 PM [facility] CBC W/O DIFFERENTIAL AM Draw 06/13/2019 3:55 AM [facility] RENAL FUNCTION PANEL AM Draw 06/13/2019 3:55 AM [facility] PROCALCITONIN LEVEL AM Draw 06/12/2019 3 :15 AM [facility] BASIC METABOLIC PANEL (CALCIUM TOTAL) AM Draw 06/12/2019 3:15 AM [facility] LIPID PROFILE Routine 06/12/2019 3:15 AM [facility] XR ABDOMEN KUB STAT 06/11/2019 11:52 PM [facility] Chest pain, unspecified type HIV-1 HIV-2 ANTIGEN/ANTIBODY STAT 06/11/2019 10:29 PM [facility] HEPATITIS C AB SCREEN RFLX NAAT QUANT STAT 06/11/2019 10:29 PM [facility] CBC W AUTO DIFFERENTIAL STAT 06/11/2019 10:29 PM [facility] COMPREHENSIVE METABOLIC PANEL STAT 06/11/2019 10:29 PM [facility] LIPASE BLOOD STAT 06/11/2019 10:29 PM [facility] CARDIAC EKG ORDER 06/11/2019 9:3 6 PM [facility] NM MYOCARD PERF STRESS ONLY STAT 06/11/2019 5:03 PM [facility] Chest pain, unspecified type ECHO COMPLETE Routine 06/11/2019 3:06 PM [facility] Hypoxia TROPONIN I Timed 06/11/2019 5:56 AM [facility] BLOOD GASES CRISTY STAT 06/11/2019 2:15 AM [facility] B-TYPE NATRIURETIC PEPTIDE STAT 06/11/2019 2:[address] ANGIO CHEST PULM EMBOLISM STAT 06/11/2019 2:00 AM [facility] Chest pain, unspecified type TROPONIN I Timed 06/11/2019 12:49 AM [facility] D-DIMER STAT 06/11/2019 12:49 AM [facility] EKG 12-LEAD Routine 06/11/2019 12:22 AM [facility] Chest pain, unspecified type XR CHEST 2VW STAT 06/10/2019 11:44 PM [facility] Chest pain, unspecified type TROPONIN I STAT 06/10/2019 10:57 PM [facility] DIFFERENTIAL MANUAL STAT 06/10/2019 1 0:57 PM [facility] CBC W AUTO DIFFERENTIAL STAT 06/10/2019 10:57 PM [facility] COMPREHENSIVE METABOLIC PANEL STAT 06/10/2019 10:57 PM [facility] EKG 12-LEAD STAT 06/10/2019 10:49 PM [facility] Chest pain, unspecified type documented in this encounter Results * CARDIAC EKG ORDER (07/11/2019 10:24 AM [facility]) Narrative 07/11/2019 10:24 AM [facility] Ordered by an unspecified provider. Scanned Document CARDIAC SERVICES ORD ERABLES * CARDIAC EKG ORDER (07/11/2019 10:24 AM [facility]) Narrative 07/11/2019 10:24 AM [facility] Ordered by an unspecified provider. Scanned Document CARDIAC SERVICES ORD ERABLES * CARDIAC EKG ORDER (07/02/2019 12:45 PM [facility]) Narrative 07/02/2019 12:45 PM [facility] Ordered by an unspecified provider. Scanned Document CARDIAC SERVICES ORD ERABLES * CARDIAC EKG ORDER (06/20/2019 3:56 PM [facility]) Narrative 06/20/2019 3:56 PM [facility] Ordered by an unspecified provider. Scanned Document CARDIAC SERVICES ORD ERABLES * CARDIAC PROCEDURE ORDER (06/16/2019 4:12 PM [facility]) Narrative 06/16/2019 4:12 PM [facility] Ordered by an unspecified provider. Scanned Document CARDIAC SERVICES ORD ERABLES * (ABNORMAL) RENAL FUNCTION PANEL (06/13/2019 3:55 AM [facility]) [facility] BUN 21 7 - 26 mg/dL 06/13/2019 5:17 AM [facility] Creatinine 1.5(H) 0.6 - 1.2 mg/dL 06/13/2019 5:17 AM [facility] Sodium 142 136 - 145 mmol/L 06/13/2019 5:17 AM [facility] Potassium 3.9 3.5 - 4.5 mmol/L 06/13/2019 5:17 AM [facility] Chloride 102 98 - 107 mmol/L 06/13/2019 5:17 AM [facility] CO2 29 22 - 29 mmol/L 06/13/2019 5:17 AM [facility] Glucose 85 70 - 115 mg/dL 06/13/2019 5:17 AM [facility] Albumin 2.7(L) 3.4 - 5.0 g/dL 06/13/2019 5:17 AM [facility] Calcium 9.2 8.4 - 10.2 mg/dL 06/13/2019 5:17 AM [facility] Phosphorus 3.5 2.3 - 4.7 mg/dL 06/13/2019 5:17 AM [facility] Anion Gap 15 8 - 18 06/13/2019 5:17 AM [facility] BUN/Creatinine Ratio 14 7 - 23 06/13/2019 5:17 AM [facility] Osmolality Calculated 296 270 - 300 mOsm/kg 06/13/2019 5:17 AM [facility] eGFR 49(L) >60 mL/min/1.7 3 m2 06/13/2019 5:17 AM [facility] Blood BLOOD SPECIMEN / Unknown Lab Venipuncture / Unknown 06/13/2019 3:55 AM [facility] 06/13/2019 4:54 AM [facility] Gemma Heart MD LAB - CHEMISTRY OR DERABLES Performing Organization Address City/State/[facility] Co de Phone Number [address] [phone] * (ABNORMAL) CBC W/O DIFFERENTIAL (06/13/2019 3:55 AM [facility]) WBC 11.1(H) 3.5 - 10.5 10? 3 /uL 06/13/2019 5:01 AM [facility] RBC 4.46 4.30 - 5.70 10? 6 /uL 06/13/2019 5:01 AM [facility] Hemoglobin 12.6(L) 13.5 - 17.5 g/dL 06/13/2019 5:01 AM [facility] Hematocrit 40.8 39.0 - 50.0 % 06/13/2019 5:01 AM [facility] MCV 91.5 81.0 - 97.0 fL 06/13/2019 5:01 AM [facility] MCH 28.3 28.0 - 34.0 pg 06/13/2019 5:01 AM [facility] MCHC 30.9(L) 32.0 - 36.0 g/dL 06/13/2019 5:01 AM [facility] Platelet Count 239 150 - 400 10? 3 /uL 06/13/2019 5:01 AM [facility] RDW-SD 48.0 36.0 - 50.0 fL 06/13/2019 5:01 AM [facility] RDW-CV 14.3 11.2 - 14.8 % 06/13/2019 5:01 AM [facility] MPV 11.7 9.3 - 12.8 fL 06/13/2019 5:01 AM [facility] nRBC Absolute 0.00 0 10? 3 /uL 06/13/2019 5:01 AM [facility] nRBC Auto 0.0 0 /100 WBC 06/13/2019 5:01 AM [facility] Blood BLOOD SPECIMEN / Unknown Lab Venipuncture / Unknown 06/13/2019 3:55 AM [facility] 06/13/2019 4:54 AM [facility] Gemma Heart MD LAB - HEMATOLOGY O RDERABLES Performing Organization Address City/State/[facility] Co de Phone Number [address] [phone] * BASIC METABOLIC PANEL (CALCIUM TOTAL) (06/12/2019 3:15 AM [facility]) BUN 18 7 - 26 mg/dL 06/12/2019 4:03 AM [facility] Creatinine 1.2 0.6 - 1.2 mg/dL 06/12/2019 4:03 AM [facility] Sodium 143 136 - 145 mmol/L 06/12/2019 4:03 AM [facility] Potassium 3.6 3.5 - 4.5 mmol/L 06/12/2019 4:03 AM [facility] Chloride 106 98 - 107 mmol/L 06/12/2019 4:03 AM [facility] CO2 27 22 - 29 mmol/L 06/12/2019 4:03 AM [facility] Glucose 98 70 - 115 mg/dL 06/12/2019 4:03 AM [facility] Calcium 9.3 8.4 - 10.2 mg/dL 06/12/2019 4:03 AM [facility] Anion Gap 14 8 - 18 06/12/2019 4:03 AM [facility] BUN/Creatinine Ratio 15 7 - 23 06/12/2019 4:03 AM [facility] Osmolality Calculated 298 270 - 300 mOsm/kg 06/12/2019 4:03 AM [facility] eGFR >60 >60 mL/min/1.7 3 m2 06/12/2019 4:03 AM [facility] Blood BLOOD SPECIMEN / Unknown Lab Venipuncture / Unknown 06/12/2019 3:15 AM [facility] 06/12/2019 3:25 AM [facility] Tobias Pagan MD LAB - CHEMISTRY [facility] Organization Address City/State/ZIP Co de Phone Number [address] [phone] * (ABNORMAL) LIPID PROFILE (06/12/2019 3:15 AM [facility]) Cholesterol Total 129 <200 mg/dL 06/12/2019 4:03 AM [facility] HDL 39(L) >40 mg/dL 06/12/2019 4:03 AM [facility] Comment: ATP III Classification of HDL Cholesterol: ? <40 mg/dL: ??Considered a major risk factor. ? >60 mg/dL: ??Considered a negative risk factor. ? LDL Calculated 76 <100 mg/dL 06/12/2019 4:03 AM [facility] Comment: ATP III Classification of LDL Cholesterol: ?<100 mg/dL: ??Optimal ? 100 - 129 mg/dL: ??Near Optimal/Above Optimal ? 130 - 159 mg/dL: ??Borderline High ? 160 - 189 mg/dL: ??High ?>190 mg/dL: ??Very High ? Triglycerides 72 <150 mg/dL 06/12/2019 4:03 AM [facility] Comment: ATP III Classification of Triglycerides: ?<150 mg/dL: ??Normal ? 150 - 199 mg/dL: ??Borderline High ? 200 - 400 mg/dL: ??High ?>500 mg/dL: ??Very High Blood BLOOD SPECIMEN / Unknown Lab Venipuncture / Unknown 06/12/2019 3:15 AM [facility] 06/12/2019 3:25 AM [facility] Steve Smith MD LAB - CHEMISTRY [facility] Performing Organization Address City/State/[facility] [place] [address], [facility] [phone] * PROCALCITONIN LEVEL (06/12/2019 3:15 AM [facility]) PROCALCITONIN 0.09 <=0.10 ng/mL 06/12/2019 4:38 AM [facility] Blood BLOOD SPECIMEN / Unknown Lab Venipuncture / Unknown 06/12/2019 3:15 AM [facility] 06/12/2019 3:26 AM [facility] Narrative [facility] - 06/12/2019 4:38 AM [facility] The change in procalcitonin (PCT) concentration over [...] Change in Procalcitonin Calculator is available at [email or web address] ?? If clinical picture has not improved and PCT remains high, reevaluate and consider treatment failure or other causes. Steve Smith MD LAB - CHEMISTRY [facility] [address] [phone] * XR ABDOMEN KUB (06/11/2019 11:52 PM [facility]) Anatomical Region Laterality Modality Abdomen Radiographic Maribel ging 06/12/2019 9:51 AM [facility] Impressions 06/12/2019 9:55 AM [facility] IMPRESSION: Nonobstructive bowel gas pattern. Dictated by Flaquito Hernandez MD (residential real estate agent). I, Dr. HARRISON SANDHU have personally reviewed and interpreted this examination/study. This report was electronically signed by HARRISON SANDHU ??on 06/12/2019 9:55 AM . Narrative 06/12/2019 9:55 AM [facility] EXAMINATION: XR ABDOMEN KUB HISTORY: Rule out obstruction COMPARISON: No prior study is available for comparison. FINDINGS: There is no dilatation of small or large bowel. Gas is present within the rectum. No pathological calcifications are seen. Free air cannot be excluded on this supine exam. The visible osseous structures are intact. Procedure Note Harrison Sandhu DO - 06/12/2019 EXAMINATION: XR ABDOMEN KUB [...] gas pattern. Dictated by Flaquito Hernandez MD (residential real estate agent). I, Dr. HARRISON SANDHU have personally reviewed and interpreted this examination/study. This report was electronically signed by HARRISON SANDHU on 06/12/2019 9:55 AM . Fabián Lo MD DIAGNOSTIC IMAGI NG ORDERABLES * LIPASE BLOOD (06/11/2019 10:29 PM [facility]) Pathologist [facility] Lipase 12 8 - 78 Units/L 06/11/2019 10:53 PM [facility] Blood BLOOD SPECIMEN / Unknown Venipuncture / Unknown 06/11/2019 10:29 PM [facility] 06/11/2019 10:32 PM [facility] Fabián Lo MD LAB - CHEMISTRY ORDERABLES [address] [phone] * (ABNORMAL) COMPREHENSIVE METABOLIC PANEL (06/11/2019 10:29 PM [facility]) Pathologist [facility] BUN 20 7 - 26 mg/dL 06/11/2019 10:54 PM [facility] Creatinine 1.3(H) 0.6 - 1.2 mg/dL 06/11/2019 10:54 PM [facility] Sodium 145 136 - 145 mmol/L 06/11/2019 10:54 PM [facility] Potassium 4.0 3.5 - 4.5 mmol/L 06/11/2019 10:54 PM [facility] Chloride 106 98 - 107 mmol/L 06/11/2019 10:54 PM [facility] CO2 30(H) 22 - 29 mmol/L 06/11/2019 10:54 PM [facility] Glucose 86 70 - 115 mg/dL 06/11/2019 10:54 PM [facility] Calcium 9.4 8.4 - 10.2 mg/dL 06/11/2019 10:54 PM [facility] Protein Total 7.1 6.0 - 8.3 g/dL 06/11/2019 10:54 PM [facility] Albumin 2.7(L) 3.4 - 5.0 g/dL 06/11/2019 10:54 PM [facility] Bilirubin Total 0.6 0.2 - 1.2 mg/dL 06/11/2019 10:54 PM [facility] Alkaline Phosphatase 81 40 - 150 Units/L 06/11/2019 10:54 PM [facility] ALT 18 0 - 55 Units/L 06/11/2019 10:54 PM [facility] AST 18 5 - 34 Units/L 06/11/2019 10:54 PM [facility] Anion Gap 13 8 - 18 06/11/2019 10:54 PM [facility] BUN/Creatinine Ratio 15 7 - 23 06/11/2019 10:54 PM [facility] Osmolality Calculated 302(H) 270 - 300 mOsm/kg 06/11/2019 10:54 PM [facility] Albumin/Globulin Ratio 0.6(L) 1.1 - 2.3 06/11/2019 10:54 PM [facility] eGFR 58(L) >60 mL/min/1.7 3 m2 06/11/2019 10:54 PM [facility] Blood BLOOD SPECIMEN / Unknown Venipuncture / Unknown 06/11/2019 10:29 PM [facility] 06/11/2019 10:32 PM [facility] Fabián Lo MD LAB - CHEMISTRY ORDERABLES [address] [phone] * (ABNORMAL) CBC W AUTO DIFFERENTIAL (06/11/2019 10:29 PM [facility]) WBC 11.7(H) 3.5 - 10.5 10? 3 /uL 06/11/2019 10:45 PM [facility] RBC 4.32 4.30 - 5.70 10? 6 /uL 06/11/2019 10:45 PM [facility] Hemoglobin 12.2(L) 13.5 - 17.5 g/dL 06/11/2019 10:45 PM [facility] Hematocrit 39.5 39.0 - 50.0 % 06/11/2019 10:45 PM [facility] MCV 91.4 81.0 - 97.0 fL 06/11/2019 10:45 PM [facility] MCH 28.2 28.0 - 34.0 pg 06/11/2019 10:45 PM [facility] MCHC 30.9(L) 32.0 - 36.0 g/dL 06/11/2019 10:45 PM [facility] Platelet Count 239 150 - 400 10? 3 /uL 06/11/2019 10:45 PM [facility] RDW-SD 48.2 36.0 - 50.0 fL 06/11/2019 10:45 PM [facility] RDW-CV 14.4 11.2 - 14.8 % 06/11/2019 10:45 PM [facility] MPV 11.2 9.3 - 12.8 fL 06/11/2019 10:45 PM [facility] nRBC Absolute 0.00 0 10? 3 /uL 06/11/2019 10:45 PM [facility] nRBC Auto 0.0 0 /100 WBC 06/11/2019 10:45 PM [facility] Neutrophils % 64.1 35.0 - 70.0 % 06/11/2019 10:45 PM [facility] Lymphocytes % 23.6 19.7 - 55.1 % 06/11/2019 10:45 PM [facility] Monocytes % 7.7 3.0 - 15.0 % 06/11/2019 10:45 PM [facility] Eosinophils % 4.0 0.0 - 6.0 % 06/11/2019 10:45 PM [facility] Basophil % 0.3 0.0 - 1.5 % 06/11/2019 10:45 PM [facility] Neutrophils Absolute 7.5(H) 1.6 - 7.0 10? 3 /uL 06/11/2019 10:45 PM [facility] Lymphocyte Absolute 2.8 0.8 - 2.9 10? 3 /uL 06/11/2019 10:45 PM [facility] Monocytes Absolute 0.90(H) 0.14 - 0.66 10? 3 /uL 06/11/2019 10:45 PM [facility] Eosinophils Absolute 0.47(H) 0.00 - 0.45 10? 3 /uL 06/11/2019 10:45 PM [facility] Basophils Absolute 0.04 0.00 - 0.06 10? 3 /uL 06/11/2019 10:45 PM [facility] Immature Granulocytes % 0.3 0.0 - 1.0 % 06/11/2019 10:45 PM [facility] Blood BLOOD SPECIMEN / Unknown Venipuncture / Unknown 06/11/2019 10:29 PM [facility] 06/11/2019 10:32 PM [facility] Fabián Lo MD LAB - HEMATOLOGY ORDERABLES Performing Organization Address [facility] Co de Phone Number [address] [phone] * HIV-1 HIV-2 ANTIGEN/ANTIBODY (06/11/2019 10:29 PM [facility]) Pathologist [facility] HIV Antigen/Antibod y 1 & 2 Non-reacti ve Non-react almaz 06/11/2019 11:16 PM [facility] Comment: Neither HIV-1 p24 Antigen nor HIV-1/HIV-2 Antibodies are detected. ? Blood BLOOD SPECIMEN / Unknown Venipuncture / Unknown 06/11/2019 10:29 PM [facility] 06/11/2019 10:32 PM [facility] Yonas Lao MD LAB - HEMATOLOGY ORD ERABLES Performing Organization Address [facility]/[place] [address], [facility] [phone] * HEPATITIS C AB SCREEN RFLX NAAT QUANT (06/11/2019 10:29 PM [facility]) Pathologist [facility] Hepatitis C Antibody Non-react almaz Non-reac tive 06/11/2019 11:16 PM [facility] Comment: Hepatitis C Antibody screen indicates no serologic evidence of past or current infection with Hepatitis C Virus. Patients with unexplained liver disease who are immunocompromised or suspected of having acute Hepatitis C infection may benefit from Nucleic Acid Test (EARL) for Hepatitis C Viral RNA to confirm Hepatitis C status. Blood BLOOD SPECIMEN / Unknown Venipuncture / Unknown 06/11/2019 10:29 PM [facility] 06/11/2019 10:32 PM [facility] Yonas Lao MD LAB - CHEMISTRY [place] JONELLE [address] [phone] * CARDIAC EKG ORDER (06/11/2019 9:36 PM [facility]) Narrative 06/11/2019 9:36 PM [facility] Ordered by an unspecified provider. Scanned Document CARDIAC SERVICES ORD ERABLES * NM MYOCARD PERF STRESS ONLY (06/11/2019 5:03 PM [facility]) Anatomical Region Laterality Modality Chest Nuclear Medicine 06/11/2019 5:02 PM [facility] Impressions 06/11/2019 5:08 PM [facility] Impression: 1. No evidence of myocardial infarction or stress-induced ischemia. 2. Normal left ventricular wall motion and thickening. 3. The calculated left ventricular ejection fraction of 71%. This report was electronically signed by KATHRYN TENORIO D.O. ??on 06/11/2019 5:08 PM . Narrative 06/11/2019 5:08 PM [facility] Pharmacologic stress SPECT/CT myocardial imaging with gating- [...] ventricular ejection fraction is 71%. Procedure Note Kathryn Tenorio, DO - 06/11/2019 Pharmacologic stress SPECT/CT myocardial [...] 71%. This report was electronically signed by KATHRYN TENORIO D.O. on06/11/2019 5:08 PM . Tobias Pagna MD NM ORDERABLES * ECHO COMPLETE (06/11/2019 3:06 PM [facility]) Anatomical Region Laterality Modality Echo 06/11/2019 2:23 PM [facility] Narrative Procedure Note Kimberly Rodriguez MD - 06/11/2019 Tobias Pagan MD ECHOCARDIOGRAPHY RAD IANT * TROPONIN I (06/11/2019 5:56 AM [facility]) Troponin I 0.017 <0.032 ng/mL 06/11/2019 6:23 AM [facility] Blood BLOOD SPECIMEN / Unknown Venipuncture / Unknown 06/11/2019 5:56 AM [facility] 06/11/2019 6:02 AM [facility] Mery Meza MD LAB - CHEMISTRY [facility] Organization Address City/State/ZIP Co de Phone Number [address] [phone] * (ABNORMAL) BLOOD GASES CRISTY (06/11/2019 2:15 AM [facility]) pH Mixed Venous 7.35 7.30 - 7.40 06/11/2019 2:25 AM [facility] pCO2 Mixed Venous 54(H) 40 - 46 mmHg 06/11/2019 2:25 AM [facility] pO2 Mixed Venous 32(L) 35 - 42 mmHg 06/11/2019 2:25 AM [facility] HCO3 Mixed Venous 29.0(H) 22.0 - 26.0 mmol/L 06/11/2019 2:25 AM [facility] TCO2 Mixed Venous 30.7(H) 25.0 - 29.0 mmol/L 06/11/2019 2:25 AM [facility] Base Excess Venous 2.4(H) -2.0 - 2.0 mmol/L 06/11/2019 2:25 AM [facility] Hemoglobin Mixed Venous 12.5(L) 13.5 - 17.5 g/dL 06/11/2019 2:25 AM [facility] Oxyhemoglobin Mixed Venous 63.3(L) 66.0 - 77.0 % 06/11/2019 2:25 AM [facility] Carboxyhemoglobin Venous 0.2 0.0 - 3.0 % 06/11/2019 2:25 AM [facility] Methemoglobin 0.3 0.0 - 2.0 % 06/11/2019 2:25 AM [facility] FI O2 Mixed Venous 27.0 % 2019 2:25 AM [facility] Blood BLOOD SPECIMEN / Unknown Venipuncture / Unknown 06/11/2019 2:15 AM [facility] 06/11/2019 2:21 AM [facility] Mery Meza MD LAB - BLOOD GASES OR DERABLES Performing Organization Address [facility]/State/ZIP Co de Phone Number [address] [phone] * (ABNORMAL) B-TYPE NATRIURETIC PEPTIDE (06/11/2019 2:15 AM [facility]) BNP 225(H) See Comment pg/mL 06/11/2019 2:46 AM [facility] Comment: * Disclaimer: BNP results may be falsely high by 20% due * * to shift observed secondary to new reagent lot. Lab ?* * working with director security management to resolve. ?* * ?* * Please contact [facility] with any questions ??* A decision threshold [...] Unknown Venipuncture / Unknown 06/11/2019 2:15 AM [facility] 06/11/2019 2:21 AM [facility] Mery Meza MD LAB - CHEMISTRY [facility] SAL [address] [phone] * CT ANGIO CHEST PULM EMBOLISM (06/11/2019 2:00 AM [facility]) Anatomical Region Laterality Modality Chest Computed Tomogra phy 06/11/2019 2:43 AM [facility] Impressions 06/11/2019 9:05 AM [facility] IMPRESSION: 1. No evidence of central pulmonary embolism. Evaluation of segmental and subsegmental pulmonary arteries is degraded by suboptimal contrast opacification. 2. Dilated main pulmonary artery, likely representing pulmonary hypertension. 3. Enlarged thyroid gland. Dictated by Adelaide Wiggins MD (residential real estate agent). I, Dr. Sohail JOHNSON M.D. have personally reviewed and interpreted this examination/study. This report was electronically signed by Sohail JOHNSON M.D. ??on 06/11/2019 9:05 AM . Narrative 06/11/2019 9:05 AM [facility] EXAMINATION: Computed tomography (CT) of the chest with contrast HISTORY: R07.9: Chest pain, unspecified type TECHNIQUE: CT of the chest was performed following the uneventful administration of 100 mL of Isovue 370 intravenous contrast according to a pulmonary embolism protocol. COMPARISON: No prior study is available for comparison. FINDINGS: Evaluation for segmental and subsegmental pulmonary embolism is degraded secondary to suboptimal contrast opacification of the distal pulmonary arteries. Otherwise there are no central filling defects in the pulmonary arteries to suggest central pulmonary embolism. There is a left-sided aortic arch. The main pulmonary artery is dilated, measuring 4.5 cm in diameter. The aorta is normal in course and caliber. Mild bilateral dependent atelectasis is present. Otherwise no focal consolidation is seen. No pleural effusion or focal pleural thickening is identified. There is no evidence of pneumothorax. No suspicious pulmonary nodule is identified. The trachea is patent and midline. The heart size is normal. No pericardial effusion is present. No mediastinal, hilar, supraclavicular, or axillary lymphadenopathy is seen. The thyroid gland is diffusely enlarged. Mild bilateral gynecomastia. The visible portion of the abdominal organs appear unremarkable. A 1 cm hypoattenuating structure in the right renal mid zone likely represents a cyst. Bone windows demonstrate no suspicious lytic or blastic lesions. The visible osseous structures are intact. Multilevel degenerative changes are noted in the spine. Procedure Note Citlalli Johnson MD - 06/11/2019 EXAMINATION: Computed tomography (CT) of the chest with contrast HISTORY: R07.9: Chest pain, unspecified type TECHNIQUE: CT of the chest was performed following the uneventful administration of 100 mL of Isovue 370 intravenous contrast according toa pulmonary embolism protocol. COMPARISON: No prior study is available for comparison. FINDINGS: Evaluation for segmental and subsegmental pulmonary embolism is degraded secondary to suboptimal contrast opacification of the distal pulmonary arteries. Otherwise there are no central filling defects in thepulmonary arteries to suggest central pulmonary embolism. There is a left-sided aortic arch. The main pulmonary artery is dilated, measuring 4.5 cm in diameter. The aorta is normal in course and caliber. Mild bilateral dependent atelectasis is present. Otherwise no focal consolidation is seen. No pleural effusion or focal pleural thickeningis identified. There is no evidence of pneumothorax. No suspiciouspulmonary nodule is identified. The trachea is patent and midline. The heart size is normal. No pericardial effusion is present. No mediastinal, hilar, supraclavicular, or axillary lymphadenopathy isseen. The thyroid gland is diffusely enlarged. Mild bilateral gynecomastia. The visible portion of the abdominal organs appear unremarkable. A 1 cm hypoattenuating structure in the right renal mid zone likely representsa cyst. Bone windows demonstrate no suspicious lytic or blastic lesions. The visible osseous structures are intact. Multilevel degenerative changesare noted in the spine. IMPRESSION: 1. No evidence of central pulmonary embolism. Evaluation of segmentaland subsegmental pulmonary arteries is degraded by suboptimal contrast opacification. 2. Dilated main pulmonary artery, likely representing pulmonary hypertension. 3. Enlarged thyroid gland. Dictated by Adelaide Wiggins MD (residential real estate agent). I, Dr. E. ISIN AKDUMAN, M.D. have personally reviewed and interpretedthis examination/study. This report was electronically signed by Sohail JOHNSON M.D. on 06/11/2019 9:05 AM . Vincent Harman MD CT ORDERABLES * (ABNORMAL) D-DIMER (06/11/2019 12:49 AM [facility]) D-Dimer Quantitative 1.21(H) <=0.50 mcg/mL FEU 06/11/2019 1:07 AM [facility] Comment: In the absence of clinical [...] Unknown Venipuncture / Unknown 06/11/2019 12:49 AM [facility] 06/11/2019 12:51 AM [facility] Vincent Harman MD LAB - COAGULATION OR DERABLES [address] [phone] * TROPONIN I (06/11/2019 12:49 AM [facility]) Pathologist [facility] Troponin I 0.024 <0.032 ng/mL 06/11/2019 1:12 AM [facility] Blood BLOOD SPECIMEN / Unknown Venipuncture / Unknown 06/11/2019 12:49 AM [facility] 06/11/2019 12:51 AM [facility] Mery Meza MD LAB - CHEMISTRY ORDE JONELLE Performing Organization Address City/[facility]/ZIP Co de Phone Number [address] [phone] * EKG 12-LEAD (06/11/2019 12:22 AM [facility]) Pathologist [facility] Ventricular Rate 79 BPM [facility] Atrial Rate 79 BPM [facility] P-R Interval 162 ms [facility] QRS Duration ms 104 ms [facility] Q-T Interval ms 398 ms [facility] QTC Calculation (Bezet) 456 ms [facility] Calculated P [place] 55 degrees [facility] Calculated R [place] 21 degrees [facility] Calculated T [place] 48 degrees [facility] Interpretation EKG NORMAL SINUS RHYTHM POSSIBLE LEFT ATRIAL ENLARGEMENT ABNORMAL ECG WHEN COMPARED WITH ECG OF 10-JUN-2019 22:49, NO SIGNIFICANT CHANGE WAS FOUND Confirmed by Adelaide Figueroa ([id number]), continuity editor NESHA MCMAHON ([id number]) on 06/24/2019 2:34:58 PM [facility] 06/11/2019 12:2 2 AM [facility] 06/24/2019 2:34 PM [facility] Mery Meza MD ECG ORDERABLES Performing Organization Address [facility] de Phone Number [facility] * XR CHEST 2VW (06/10/2019 11:44 PM [facility]) Anatomical Region Laterality Modality Chest Radiographic Maribel ging 06/11/2019 12:1 1 AM [facility] Impressions 06/11/2019 7:38 AM [facility] IMPRESSION: Left lower lobe opacity may represent atelectasis and/or airspace disease. Small left pleural effusion may contribute. Dictated by Adelaide Wiggins MD (residential real estate agent). IDr. HARRISON have personally reviewed and interpreted this examination/study. This report was electronically signed by HARRISON SANDHU ??on 06/11/2019 7:38 AM . Narrative 06/11/2019 7:38 AM [facility] EXAMINATION: XR CHEST 2VW HISTORY: R07.9: Chest [...] bony thorax is intact. Procedure Note Harrison Sandhu, - 06/11/2019 EXAMINATION: XR CHEST 2VW HISTORY: [...] may contribute. Dictated by Adelaide Wiggins MD (residential real estate agent). IDr. HARRISON have personally reviewed and interpreted this examination/study. This report was electronically signed by HARRISON SANDHU on 06/11/2019 7:38 AM . Vincent Harman MD DIAGNOSTIC IMAGING O RDERABLES * (ABNORMAL) DIFFERENTIAL MANUAL (06/10/2019 10:57 PM [facility]) WBC (corrected for NRBC) 15.2 10? 3 /uL 06/10/2019 11:46 PM [facility] Total Cell Count 100 06/10/2019 11:46 PM [facility] Neutrophils Absolute Manual 8.82(H) 1.60 - 7.00 10? 3 /uL 06/10/2019 11:46 PM [facility] Comment:(BANDS+SEGS) x WBC = NEUT # (ANC) Lymphocyte Absolute Manual 5.32(H) 0.80 - 2.90 10? 3 /uL 06/10/2019 11:46 PM [facility] Monocytes Absolute Manual 0.61 0.14 - 0.66 10? 3 /uL 06/10/2019 11:46 PM [facility] Eosinophils Absolute Manual 0.46(H) 0.00 - 0.22 10? 3 /uL 06/10/2019 11:46 PM [facility] Neutrophil % Manual 58 30 - 60 % 06/10/2019 11:46 PM [facility] Lymphocyte % Manual 35 20 - 45 % 06/10/2019 11:46 PM [facility] Monocytes % Manual 4 2 - 10 % 06/10/2019 11:46 PM [facility] Eosinophils % Manual 3 1 - 6 % 06/10/2019 11:46 PM [facility] Platelet Estimate Adequate Adequate 06/10/2019 11:46 PM [facility] RBC Morphology Normal 06/10/2019 11:46 PM [facility] Blood BLOOD SPECIMEN / Unknown Venipuncture / Unknown 06/10/2019 10:57 PM [facility] 06/10/2019 11:17 PM [facility] Mery Meza MD LAB - HEMATOLOGY ORD ERABLES [address] [phone] * (ABNORMAL) COMPREHENSIVE METABOLIC PANEL (06/10/2019 10:57 PM [facility]) BUN 26 7 - 26 mg/dL 06/10/2019 11:40 PM [facility] Creatinine 1.4(H) 0.6 - 1.2 mg/dL 06/10/2019 11:40 PM [facility] Sodium 142 136 - 145 mmol/L 06/10/2019 11:40 PM [facility] Potassium 4.7(H) 3.5 - 4.5 mmol/L 06/10/2019 11:40 PM [facility] Chloride 106 98 - 107 mmol/L 06/10/2019 11:40 PM [facility] CO2 23 22 - 29 mmol/L 06/10/2019 11:40 PM [facility] Glucose 91 70 - 115 mg/dL 06/10/2019 11:40 PM [facility] Calcium 9.2 8.4 - 10.2 mg/dL 06/10/2019 11:40 PM [facility] Protein Total 7.8 6.0 - 8.3 g/dL 06/10/2019 11:40 PM [facility] Albumin 2.9(L) 3.4 - 5.0 g/dL 06/10/2019 11:40 PM [facility] Bilirubin Total 0.4 0.2 - 1.2 mg/dL 06/10/2019 11:40 PM [facility] Alkaline Phosphatase 80 40 - 150 Units/L 06/10/2019 11:40 PM [facility] ALT 21 0 - 55 Units/L 06/10/2019 11:40 PM [facility] AST 28 5 - 34 Units/L 06/10/2019 11:40 PM [facility] Anion Gap 18 8 - 18 06/10/2019 11:40 PM [facility] BUN/Creatinine Ratio 19 7 - 23 06/10/2019 11:40 PM [facility] Osmolality Calculated 298 270 - 300 mOsm/kg 06/10/2019 11:40 PM [facility] Albumin/Globulin Ratio 0.6(L) 1.1 - 2.3 06/10/2019 11:40 PM [facility] eGFR 53(L) >60 mL/min/1.7 3 m2 06/10/2019 11:40 PM [facility] Blood BLOOD SPECIMEN / Unknown Venipuncture / Unknown 06/10/2019 10:57 PM [facility] 06/10/2019 11:17 PM [facility] Mery Meza MD LAB - CHEMISTRY [place]NDEZ SAL [address] [phone] * (ABNORMAL) CBC W AUTO DIFFERENTIAL (06/10/2019 10:57 PM [facility]) WBC 15.2(H) 3.5 - 10.5 10? 3 /uL 06/10/2019 11:27 PM [facility] RBC 4.67 4.30 - 5.70 10? 6 /uL 06/10/2019 11:27 PM [facility] Hemoglobin 13.3(L) 13.5 - 17.5 g/dL 06/10/2019 11:27 PM [facility] Hematocrit 43.1 39.0 - 50.0 % 06/10/2019 11:27 PM [facility] MCV 92.3 81.0 - 97.0 fL 06/10/2019 11:27 PM [facility] MCH 28.5 28.0 - 34.0 pg 06/10/2019 11:27 PM [facility] MCHC 30.9(L) 32.0 - 36.0 g/dL 06/10/2019 11:27 PM [facility] Platelet Count 276 150 - 400 10? 3 /uL 06/10/2019 11:27 PM [facility] RDW-SD 48.3 36.0 - 50.0 fL 06/10/2019 11:27 PM [facility] RDW-CV 14.4 11.2 - 14.8 % 06/10/2019 11:27 PM [facility] MPV 11.9 9.3 - 12.8 fL 06/10/2019 11:27 PM [facility] nRBC Absolute 0.00 0 10? 3 /uL 06/10/2019 11:27 PM [facility] nRBC Auto 0.0 0 /100 WBC 06/10/2019 11:27 PM [facility] Blood BLOOD SPECIMEN / Unknown Venipuncture / Unknown 06/10/2019 10:57 PM [facility] 06/10/2019 11:17 PM [facility] Mery Meza MD LAB - HEMATOLOGY ORD ERABLES [facility] [address] [place] [address] * TROPONIN I (06/10/2019 10:57 PM [facility]) Troponin I 0.020 <0.032 ng/mL 06/10/2019 11:43 PM [facility] Blood BLOOD SPECIMEN / Unknown Venipuncture / Unknown 06/10/2019 10:57 PM [facility] 06/10/2019 11:17 PM [facility] Mery Meza MD LAB - CHEMISTRY HERNANDEZ SAL Performing Organization Address City/[facility]/ZIP Co de Phone Number [place] [phone] [address] [phone] * EKG 12-LEAD (06/10/2019 10:49 PM [facility]) Ventricular Rate 88 BPM [facility] Atrial Rate 88 BPM [facility] M[facility] P-R Interval 154 ms [facility] QRS Duration ms 106 ms [facility] Q-T Interval ms 388 ms [facility] QTC Calculation (Bezet) 469 ms [facility] Calculated P [place] 64 degrees [facility] Calculated R [place] 70 degrees [facility] Calculated T [place] 50 degrees [facility] Interpretation EKG NORMAL SINUS RHYTHM POSSIBLE LEFT ATRIAL ENLARGEMENT BORDERLINE ECG NO PREVIOUS ECGS AVAILABLE Confirmed by Adelaide Figueroa ([id number]), continuity editor NESHA MCMAHON ([id number]) on 06/24/2019 2:37:47 PM [facility] 06/10/2019 10:4 9 PM [facility] 06/24/2019 2:37 PM [facility] Mery Meza MD ECG ORDERABLES Performing Organization Address [facility] Co de Phone Number [facility] documented in this encounter Visit Diagnoses Diagnosis Essential hypertension- Primary Chest pain, unspecified type Hypoxia Hypoxemia Pedal edema Edema Chest pain documented in this encounter Administered Medications Inactive Administered Medications - up to 3 most recent administrations Medication Order MAR Action Action Date Dose Rate Site 0.9% NaCl injection 1-10 mL 1-10 mL, Intracatheter, PRN, Other, peripheral line flush, Starting on 06/10/19 at 2247, Until Tue06/13/19 at 1717, Flush peripheral IV catheter with 1-10 mL of normal saline before and after medications and prn to clear blood from the line or to verify patency. 0.9% NaCl injection 3 mL 3 mL, Intracatheter, EVERY 8 HOURS, First dose on Tue06/10/19 at 2330, Until Discontinued, Flush peripheral IV catheter with 3 mL of normal saline every 8 hours. $ Given 06/12/2019 8:41 PM [facility] 3 mL $ Given 06/12/2019 2:11 PM [facility] 3 mL $ Given 06/12/2019 6:03 AM [facility] 3 mL 0.9% NaCl IV Bolus 1,000 mL, at 983.61 mL/hr, Administer over 61 Minutes, NOW, 1 dose, On Tue06/11/19 at 0115 $ New Bag/Syringe 06/11/2019 1:17 AM [facility] 1,000 mL 983.61 mL/hr albuterol-ipratropium (DUO-NEB) nebulizer solution 3 mL 3 mL, Inhalation, NOW, 1 dose, On Tue06/11/19 at 0045 $ Given 06/11/2019 1:29 AM [facility] 3 mL aluminum & magnesium hydroxide (MAALOX) suspension 30 mL 30 mL, Oral, ONCE, 1 dose, On Tue06/11/19 at 2300, Shake well before using. $ Given 06/11/2019 11:17 PM [facility] 30 mL amitriptyline (ELAVIL) tablet 25 mg 25 mg, Oral, AT BEDTIME, First dose on Tue06/11/19 at 2100, Until Discontinued $ Given 06/12/2019 8:41 PM [facility] 25 mg $ Given 06/11/2019 10:32 PM [facility] 25 mg azithromycin (ZITHROMAX) tablet 250 mg 250 mg, Oral, DAILY, 5 doses, First dose on Tue06/11/19 at 0900, Last dose on Tue06/15/19 at 0900, Indication for anti-infective therapy: Suspected infection, Site of anti-infective therapy: Lower Respiratory $ Given 06/11/2019 8:10 AM [facility] 250 mg busPIRone (BUSPAR) tablet 5 mg 5 mg, Oral, 3 TIMES DAILY, First dose on Tue06/11/19 at 0900, Until Discontinued $ Given 06/13/2019 8:29 AM [facility] 5 mg $ Given 06/12/2019 8:40 PM [facility] 5 mg $ Given 06/12/2019 2:05 PM [facility] 5 mg cefTRIAXone (ROCEPHIN) 2,000 mg in 0.9% NaCl 50 mL IVPB 2,000 mg (2 g), at 100 mL/hr, Intravenous, EVERY 24 HOURS, First dose on Tue06/11/19 at 0645, Until Discontinued, Ceftriaxone can cause precipitation when administered with calcium-containing fluids, including LR. Flush lines with a compatible fluid, such as D5W or NS before and after ceftriaxone dose. Admin through separate lumens is acceptable. , Indication for anti-infective therapy: Suspected infection, Site of anti-infective therapy: Lower Respiratory $ New Bag/Syringe 06/11/2019 6:48 AM [facility] 2,000 mg 100 mL/hr furosemide (LASIX) injection 20 mg 20 mg, Intravenous, DAILY, First dose (after last modification) on Tue06/13/19 at 0900, Until Discontinued $ Given 06/13/2019 8:32 AM [facility] 20 mg furosemide (LASIX) injection 40 mg 40 mg, Intravenous, 2 TIMES DAILY, First dose on Tue06/11/19 at 0615, Until Discontinued $ Given 06/11/2019 6:36 AM [facility] 40 mg furosemide (LASIX) injection 40 mg 40 mg, Intravenous, DAILY, First dose (after last modification) on Tue06/12/19 at 0900, Until Discontinued $ Given 06/12/2019 8:23 AM [facility] 40 mg iopamidol (ISOVUE 370) 76 % contrast Intravenous, CONTRAST ONCE, Starting on Tue06/11/19 at 0148, Until Tue06/13/19 at 0147 $ Given - Contrast 06/11/2019 1:48 AM [facility] 100 mL isosorbide mononitrate CR 24hr (IMDUR) tablet 30 mg 30 mg, Oral, DAILY, First dose on Tue06/11/19 at 0900, Until Discontinued, May cut in half but do not crush or chew $ Given 06/13/2019 8:29 AM [facility] 30 mg $ Given 06/12/2019 8:23 AM [facility] 30 mg $ Given 06/11/2019 8:10 AM [facility] 30 mg lidocaine (XYLOCAINE) 2 % viscous solution 10 mL 10 mL, Mouth/Throat, ONCE, 1 dose, On Tue06/11/19 at 2300, Maximum 8 doses per day. $ Given 06/11/2019 11:16 PM CS T 10 mL metoprolol succinate XL 24hr (TOPROL XL) tablet 50 mg 50 mg, Oral, DAILY, First dose on Tue06/11/19 at 1930, Until Discontinued, May cut in half but do not crush or chew $ Given 06/13/2019 8:29 AM [facility] 50 mg $ Given 06/12/2019 8:23 AM [facility] 50 mg $ Given 06/11/2019 7:33 PM [facility] 50 mg nitroGLYCERIN (NITROSTAT) tablet 0.4 mg 0.4 mg, Sublingual, EVERY 5 MIN PRN, Angina, Chest pain, 3 doses, Starting on Tue06/10/19 at 2247, Until Tue06/13/19 at 1717, Notify physician after 3 doses if chest pain not relieved. $ Given 06/11/2019 12:31 AM [facility] 0.4 mg patiromer (VELTASSA) packet 8.4 g 8.4 g, Oral, DAILY at 1300, First dose on Tue06/11/19 at 1300, Until Discontinued, Measure 1/3 cup of water. [...] 3 hours before or after.? $ Given 06/12/2019 2:06 PM [facility] 8.4 g $ Given 06/11/2019 5:59 PM [facility] 8.4 g perflutren Lipid Microsphere (DEFINITY) injection SUSP 0.5 mL 0.5 mL, Intravenous, INTRA-PROCEDURE MULTIPLE, 6 doses, Starting on Tue06/11/19 at 1410, Until Tue06/13/19 at 1717, For Echo Procedure - Per Protocol Give slowly Shake well before using. $ Given 06/11/2019 2:55 PM [facility] 0.5 mL pravastatin (PRAVACHOL) tablet 20 mg 20 mg, Oral, AT BEDTIME, First dose on Tue06/11/19 at 2100, Until Discontinued $ Given 06/12/2019 8:41 PM [facility] 20 mg $ Given 06/11/2019 10:32 PM [facility] 20 mg regadenoson (LEXISCAN) injection 0.4 mg 0.4 mg, Intravenous, ONCE, 1 dose, On Tue06/11/19 at 1615, Administer as a rapid injection over 10 seconds. Follow with 5ml saline flush. $ Given 06/11/2019 3:36 PM [facility] 0.4 mg Tc-99m tetrofosmin (MYOVIEW) injection KIT 26.1 millicurie 26.1 millicurie, Intravenous, ONCE, 1 dose, On Tue06/11/19 at 1615 $ Given 06/11/2019 3:36 PM [facility] 26.1 millicuries documented in this encounter Active and Recently Administered Medications Times are shown in [facility]. Scheduled Medication Order 06/11/2019 06/12/2019 06/13/2019 0.9% NaCl injection 3 mL(Linked Group 1) 3 mL, Intracatheter, EVERY 8 HOURS, First dose on Tue06/10/19 at 2330, Until Discontinued, Flush peripheral IV catheter with 3 mL of normal saline every 8 hours. 0117 ($ Given - Provider: Myriam Agudelo RN)0636 ($ Given - Provider: Elijah Bray, AVA)1400 (Due)2234 ($ Given - Provider: Shirin Mckenna RN) 0603 ($ Given - Provider: Reyna Reynolds RN)1411 ($ Given - Provider: Becky Porras, RN)2041 ($ Given - Provider: Rossana Downs, AVA) 0507 (Not Administered - Provider: Rossana Downs RN - Reason: Patient sleeping)1400 (Due) 0.9% NaCl IV Bolus (COMPLETED) 1,000 mL, at 983.61 mL/hr, Administer over 61 Minutes, NOW, 1 dose, On Tue06/11/19 at 0115 0117 ($ New Bag/Syringe - Provider: Myriam Agudelo RN)0322 (Stopped - Provider: Aby Fortune RN) albuterol-ipratropium (DUO-NEB) nebulizer solution 3 mL (COMPLETED) 3 mL, Inhalation, NOW, 1 dose, On Tue06/11/19 at 0045 0129 ($ Given - Provider: Edwar Jorge RCP) aluminum & magnesium hydroxide (MAALOX) suspension 30 mL (COMPLETED)(Linked Group 2) 30 mL, Oral, ONCE, 1 dose, On Tue06/11/19 at 2300, Shake well before using. 2317 ($ Given - Provider: Shirin Mckenna RN) amitriptyline (ELAVIL) tablet 25 mg 25 mg, Oral, AT BEDTIME, First dose on Tue06/11/19 at 2100, Until Discontinued 2232 ($ Given - Provider: Shirin Mckenna RN) 204 ($ Given - Provider: Rossana Downs, AVA) azithromycin (ZITHROMAX) tablet 250 mg (CANCELED) 250 mg, Oral, DAILY, 5 doses, First dose on Tue06/11/19 at 0900, Last dose on Tue06/15/19 at 0900, Indication for anti-infective therapy: Suspected infection, Site of anti-infective therapy: Lower Respiratory 0810 ($ Given - Provider: Jose Solis, AVA) busPIRone (BUSPAR) tablet 5 mg 5 mg, Oral, 3 TIMES DAILY, First dose on Tue06/11/19 at 0900, Until Discontinued 0810 ($ Given - Provider: Jose Solis RN)1759 ($ Given - Provider: Shirin Mckenna RN)2232 ($ Given - Provider: Shirin Mckenna RN) 0823 ($ Given - Provider: Becky Porras RN)1405 ($ Given - Provider: Becky Porras RN)2040 ($ Given - Provider: Rossana Downs, AVA) 0829 ($ Given - Provider: Becky Porras RN)1400 (Due) cefTRIAXone (ROCEPHIN) 2,000 mg in 0.9% NaCl 50 mL IVPB (CANCELED) 2,000 mg (2 g), at 100 mL/hr, Intravenous, EVERY 24 HOURS, First dose on Tue06/11/19 at 0645, Until Discontinued, Ceftriaxone can cause precipitation when administered with calcium-containing fluids, including LR. Flush lines with a compatible fluid, such as D5W or NS before and after ceftriaxone dose. Admin through separate lumens is acceptable. , Indication for anti-infective therapy: Suspected infection, Site of anti-infective therapy: Lower Respiratory 0648 ($ New Bag/Syringe - Provider: Elijah Bray, AVA)0718 (Stopped - Provider: Elijah Bray, AVA) furosemide (LASIX) injection 20 mg 20 mg, Intravenous, DAILY, First dose (after last modification) on Tue06/13/19 at 0900, Until Discontinued 0832 ($ Given - Provider: Becky Porras, AVA) furosemide (LASIX) injection 40 mg (CANCELED) 40 mg, Intravenous, 2 TIMES DAILY, First dose on Tue06/11/19 at 0615, Until Discontinued 0636 ($ Given - Provider: Elijah Bray RN) furosemide (LASIX) injection 40 mg (CANCELED) 40 mg, Intravenous, DAILY, First dose (after last modification) on Tue06/12/19 at 0900, Until Discontinued 0823 ($ Given - Provider: Becky Porras, AVA) iopamidol (ISOVUE 370) 76 % contrast () Intravenous, CONTRAST ONCE, Starting on Tue06/11/19 at 0148, Until Tue06/13/19 at 0147 0148 ($ Given - Contrast - Provider: Natalee Manzano, RT(R)CT) isosorbide mononitrate CR 24hr (IMDUR) tablet 30 mg 30 mg, Oral, DAILY, First dose on Tue06/11/19 at 0900, Until Discontinued, May cut in half but do not crush or chew 0810 ($ Given - Provider: Jose Solis RN) 0823 ($ Given - Provider: Becky Porras, AVA) 0829 ($ Given - Provider: Bceky Porras RN) lidocaine (XYLOCAINE) 2 % viscous solution 10 mL (COMPLETED)(Linked Group 2) 10 mL, Mouth/Throat, ONCE, 1 dose, On Tue06/11/19 at 2300, Maximum 8 doses per day. 2316 ($ Given - Provider: Shirin Mckenna, AVA) metoprolol succinate XL 24hr (TOPROL XL) tablet 50 mg 50 mg, Oral, DAILY, First dose on Tue06/11/19 at 1930, Until Discontinued, May cut in half but do not crush or chew 1933 ($ Given - Provider: Shirin Mckenna, RN) 0823 ($ Given - Provider: Becky Porras, AVA) 0829 ($ Given - Provider: Becky Porras, AVA) patiromer (VELTASSA) packet 8.4 g (CANCELED) 8.4 g, Oral, DAILY at 1300, First dose on Tue06/11/19 at 1300, Until Discontinued, Measure 1/3 cup of water. [...] oral medications 3 hours before or after.? 3347 ($ Given - Provider: Shirin Mckenna, RN) 1406 ($ Given - Provider: Becky Porras, RN) perflutren Lipid Microsphere (DEFINITY) injection SUSP 0.5 mL 0.5 mL, Intravenous, INTRA-PROCEDURE MULTIPLE, 6 doses, Starting on Tue06/11/19 at 1410, Until 06/13/19 at 1717, For Echo Procedure - Per Protocol Give slowly Shake well before using. 1455 ($ Given - Provider: Shmuel Wilson) pravastatin (PRAVACHOL) tablet 20 mg 20 mg, Oral, AT BEDTIME, First dose on Tue06/11/19 at 2100, Until Discontinued 2232 ($ Given - Provider: Shirin Mckenna RN) 2040 ($ Given - Provider: Rossana Downs, AVA) regadenoson (LEXISCAN) injection 0.4 mg (COMPLETED) 0.4 mg, Intravenous, ONCE, 1 dose, On Tue06/11/19 at 1615, Administer as a rapid injection over 10 seconds. Follow with 5ml saline flush. 1536 ($ Given - Provider: Livia Martinez, AVA) Tc-99m tetrofosmin (MYOVIEW) injection KIT 26.1 millicurie (COMPLETED) 26.1 millicurie, Intravenous, ONCE, 1 dose, On Tue06/11/19 at 1615 1536 ($ Given - Provider: Livia Martinez, RN) PRN Medication Order 06/11/2019 06/12/2019 06/13/2019 0.9% NaCl injection 1-10 mL(Linked Group 1) 1-10 mL, Intracatheter, PRN, Other, peripheral line flush, Starting on Tue06/10/19 at 2247, Until 06/13/19 at 1717, Flush peripheral IV catheter with 1-10 mL of normal saline before and after medications and prn to clear blood from the line or to verify patency. nitroGLYCERIN (NITROSTAT) tablet 0.4 mg 0.4 mg, Sublingual, EVERY 5 MIN PRN, Angina, Chest pain, 3 doses, Starting on Tue06/10/19 at 2247, Until Tue06/13/19 at 1717, Notify physician after 3 doses if chest pain not relieved. 0031 ($ Given - Provider: Aby Fortune RN) Linked Groups Order Group 1: SALINE LOCK, INSERT AND MAINTAIN (CANCELED) Routine, CONTINUOUS, Starting on Tue06/10/19 at 2300, Until Specified, New collection And 0.9% NaCl injection 3 mLJump to med 3 mL, Intracatheter, EVERY 8 HOURS, First dose on Tue06/10/19 at 2330, Until Discontinued, Flush peripheral IV catheter with 3 mL of normal saline every 8 hours. And 0.9% NaCl injection 1-10 mLJump to med 1-10 mL, Intracatheter, PRN, Other, peripheral line flush, Starting on Tue06/10/19 at 2247, Until Tue06/13/19 at 1717, Flush peripheral IV catheter with 1-10 mL of normal saline before and after medications and prn to clear blood from the line or to verify patency. Group 2: aluminum & magnesium hydroxide (MAALOX) suspension 30 mL (COMPLETED)Jump to med 30 mL, Oral, ONCE, 1 dose, On Tue06/11/19 at 2300, Shake well before using. And lidocaine (XYLOCAINE) 2 % viscous solution 10 mL (COMPLETED)Jump to med 10 mL, Mouth/Throat, ONCE, 1 dose, On Tue06/11/19 at 2300, Maximum 8 doses per day. documented in this encounter Care Teams Placement Officer Relationship Specialty Start Date End Date Natasha Bates PA-C [address] [place] [phone] PCP - General 03/21/19 06/20/23 documented as of this encounter
--- OUTSIDE RECORDS SUMMARY | 2024-05-22 05:43 | XMS_ITS | Encounter Summary ---
Author Organization [facility] Health Address [address] [place] [address] Care Team Providers Care Continuing Education Specialist Name Role Phone Natasha Bates PA-C Primary Care Provider + Reason for Visit * Reason Comments Follow-up no complaints * Auth/Cert Specialty Diagnoses / Procedures Referred By Malena t Referred To Contact Referral ID Status Reason Start Date Expiration Date Visits Re quested Visits Authorized [id number] 1 1 Encounter Details Date Type Department Care Team (Late st Contact Info) Description 07/11/2019 3:10 PM PRESSROOM WORKER Office Visit [facility] - Nephrology [address] [place] [address], [place] [id number] America Zavala MD [address] [place] [address] DIV OF [place] [phone] Hyperkalemia (Primary Dx); Chronic kidney disease (CKD), stage II (mild) Social History Tobacco Use Types Packs/Day Years [...] Sign Reading Time Taken Comments Blood Pressure 156/83 07/11/2019 3:24 PM PRESSROOM WORKER Pulse 84 07/11/2019 3:24 PM PRESSROOM WORKER Temperature 36.6 ??C (97.9 ??F) 07/11/2019 3:24 PM CS T Respiratory Rate 19 07/11/2019 3:24 PM PRESSROOM WORKER Oxygen Saturation 93% 07/11/2019 3:24 PM PRESSROOM WORKER Inhaled Oxygen Concentration - - Weight 161.6 kg (356 lb 4.8 oz) 07/11/2019 3:24 PM PRESSROOM WORKER Height 185.4 cm (6' 1 ) 07/11/2019 3:24 PM PRESSROOM WORKER Body Mass Index 47.01 07/11/2019 3:24 PM PRESSROOM WORKER documented in this encounter Functional Status Functional [...] Progress Notes * America Zavala MD - 07/30/2019 10:35 AM CDT New lab result reviewed. K level decreased to 5. Will keep current treatment for K control with veltassa and furosemide. Urine chemistry pending. Patient informed by phone * America Zavala MD - 07/23/2019 10:27 AM CST Addendum: Lab results showed hyperkalemia with K level 5.8. Valtassa dose was increased to 16.4 and Lasix to 20 mg BID at his clinic visit. Patient was called and informed. Will repeat BMP tomorrow. Order placed. SROOM WORKER * America Zavala MD - 07/11/2019 3:31 PM CST Nephrology Clinic Note Date of Visit: 07/11/2019 Time of Visit: 3:32 PM Patient is a 53 year old male who presents for follow up for hyperkalemia. He was initially referred by his PCP for hyperkalemia and CKD. Patient PMH is also significant for obesity and angina with heart catheterization in 2018. Patient informs that results of catheterization was probablean spasm. His renal function was moderately decreased with a creatinine of 1.37 (eGFR 58). His serum K has been in the 5s. Weeks before his first evaluation in our clinic, K was was 6.1o. Patient was on lisinopril, but it was stopped after his K was found elevated. Patient is taking furosemide 20 mg. ?? [facility] pain and volume overload.Troponin was negative. EKG was negative for acute ischemic changes.Cardiac stress test was unremarkable. Chest pain resolved. Subjective: today Recent labs on 07/05/19 by his PCP: K 5.8, creatinine 1.28 Patient taking veltassa 8.4 g daily and furosemide 20 mg BID. Denies SOB on resting, but he has had edema in lower extremity for quite some time. Denies use of NSAIDs. Planning bariatric surgery. Current meds: Amytriptiline 25, buspirone 5, coreg 12.5, lasix 20 bid, imdur 30, pqartiromer 8.4 Patient Active Problem List Diagnosis Date Noted ??? Chest pain 06/11/2019 Priority: Not Prioritized [...] 2 times daily 60 tablet 11 ??? isosorbide mononitrate CR 24hr (IMDUR) 30 MG tablet Take 1 tablet by mouth once daily for 30 days 30 tablet 0 ??? patiromer (VELTASSA) 8.4 g packet Take [...] hours before or after. 30 packet 1 No current facility-administered medications on file prior to visit. No Known Allergies No past surgical history on file. No family history on file. Social History Tobacco Use ??? Smoking status: Never Smoker ??? Smokeless tobacco: Never Used Substance Use Topics ??? Alcohol use: Yes Comment: maybe 4 drinks a month ??? Drug use: Never Review of Systems Negative except BOLD History obtained from patient General ROS: dyspnea on exercise about a block distance Psychological ROS: denies Ophthalmic: denies ENT ROS: denies Allergy and Immunology: denies Hematological and Lymphatic: denies Endocrine ROS: Denies Respiratory: dyspnea, O2 at home (2L) Cardiovascular: dyspnea, LE edema Gastrointestinal: denies Genito-Urinary: artificial sphincter 2017; some leakage Musculoskeletal : cramps at night, not recently Neurological ROS:denies Dermatological ROS: denies Objective: Vitals: 07/11/19 1524 BP: 156/83 Pulse: 84 Resp: 19 Temp: 97.9 ??F (36.6 ??C) SpO2: 93% Weight: (!) 161.6 kg (356 lb 4.8 oz) Height: 1.854 m (6' 1 ) Estimated body mass index is 47.01 kg/m?? as calculated from the following: Height as of this encounter: 1.854 m (6' 1 ). Weight as of this encounter: 161.6 kg (356 lb 4.8 oz). General: Alert, cooperative, no distress, appears stated age. Head/Neck: Normocephalic, without obvious abnormality, atraumatic. Neck supple, symmetrical, trachea midline, no carotid bruit and no thyromegaly. ENT/Mouth: Conjunctivae/corneas clear. Nares normal. Mucus membranes moist, no erythema, drainage or edema.Oropharynx clear, mucus membranes moist, no erythema or edema. No cervical or supraclavicular LAD. CV: Regular rate and rhythm, S1, S2 normal, no murmur, click, rub or gallop. Pulses + BLE, 1+lower extremity edema. Respiratory: Clear to auscultation bilaterally. GI: Soft, non-tender. Bowel sounds normal. No masses, No organomegaly. Extremities normal, atraumatic, no cyanosis. Skin: Skin color normal. No rashes or lesions. Neurologic: Oriented, conscious, grossly normal.. Psychiatric: Normal range mood/affect. Data Review Recent Labs Component Name 06/13/19 0355 06/11/19 2229 06/10/19 2257 04/18/19 1505 WBC 11.1* 11.7* 15.2* 13.7* RBC 4.46 4.32 4.67 4.66 HGB 12.6* 12.2* 13.3* 13.2* HCT 40.8 39.5 43.1 42.9 MCV 91.5 91.4 92.3 92.1 MCH 28.3 28.2 28.5 28.3 MCHC 30.9* 30.9* 30.9* 30.8* RDWSD 48.0 48.2 48.3 49.1 RDW 14.3 14.4 14.4 14.6 MPV 11.7 11.2 11.9 12.0 NRBCABS 0.00 0.00 0.00 0.00 NRBCAUTOPCT 0.0 0.0 0.0 0.0 NEUTPCT - 64.1 - 60.3 LYMPHSPCT - 23.6 - 27.2 MONOPCT - 7.7 - 7.4 EOSPCT - 4.0 3 4.1 BASOPCT - 0.3 - 0.6 IMMGRANSPCT - 0.3 - 0.4 NEUTABS - 7.5* 8.82* 8.3* LYMPHS - 2.8 5.32* 3.7* MONO - 0.90* 0.61 1.02* EOS - 0.47* 0.46* 0.56* BASO - 0.04 - 0.08* TOTCELLCNT - - 100 - Recent Labs Component Name 07/05/19 1231 06/13/19 0355 06/12/19 0315 06/11/19 2229 06/10/19 2257 BUN 26* 21 18 20 26 CREATININE 1.28* 1.5* 1.2 1.3* 1.4* NA - 142 143 145 142 POTASSIUM 5.8* 3.9 3.6 4.0 4.7* CL - 102 106 106 106 CO2 28 29 27 30* 23 CALCIUM 9.6 9.2 9.3 9.4 9.2 PROT - - - 7.1 7.8 ALB - 2.7* - 2.7* 2.9* TBILI - - - 0.6 0.4 ALKPHOS - - - 81 80 ALT - - - 18 21 AST - - - 18 28 ANIONGAP - 15 14 13 18 BCR - 14 15 15 19 OSMOLALITY - 296 298 302* 298 AGRATIO - - - 0.6* 0.6* EGFR 63 49* >60 58* 53* No results for input(s): DSDNAIGGAB in the last 27067 hours. No results for input(s): TSH in the last 66319 hours. Recent Labs Component Name 07/05/19 1232 HGBA1C 5.7* No results for input(s): FERRITIN in the last 98101 hours. No results for input(s): IRON, TIBC in the last 43954 hours. No results for input(s): PTHINTACT in the last 81530 hours. Lab results smartLinks are not currently available Lab results smartLinks are not currently available Lab results smartLinks are not currently available Urine Studies No results for input(s): COLORU, CLARITYU, LABSPEC, PHUR, PROTEINU, GLUCOSERUR, KETONES, BILIRUBINUR, BLOODU, NITRITE, LEUKOCYTE, UROBILINUA, RBCUA, WBCU, SQUAMOUS in the last 10787 hours. No results for input(s): ALBUMINRA in the last 13430 hours. Invalid input(s): CREATININEUR No results for input(s): MICROALB in the last 14971 hours. Assessment: # CKD stage 3: Creatinine 1.28, estimated GFR 63. No clear cause of CKD. Pending results of proteinuria - BMP - Protein/creatinine ratio in random urine - Urine creatinine, K, sodium, chloride and osmolality ?? # Hyperkalemia: Persistent high levels of serum K. For several months. Etiology not known at the present time. Levels of K higher than expected for the renal function. No apparent evidence of acidosis (CO2 27). - Will increase veltassa to 16.8 g PO daily - Maintain furosemide dose 20 mg BID (was taking only 20) - Patient was counseled on low potassium diet ?? # Obesity: BMI 47. - Patient counseled about risks associated to obesity including renal disease, heart disease. - He is planning bariatric surgery ?? FU in 3 omths ?? Plan: Renal function panel CBC Protein/creatinine ratio. Urine K, creatinine, Cl, Na Veltassa 16.4 g daily Increases furosemide to 20 mg BID Plan: No orders of the defined types were placed in this encounter. America Oneal MD Internal Medicine, Div of Nephrology SROOM WORKER documented in this encounter Miscellaneous Notes * Addendum Note - America Zavala MD - 07/24/2019 8:39 AM PRESSROOM WORKER Addended by: AMERICA ZAVALA on: 07/24/2019 08:39 AM Modules accepted: Orders SROOM WORKER * Addendum Note - America Zavala MD - 07/23/2019 10:31 AM PRESSROOM WORKER Addended by: AMERICA ZAVALA on: 07/23/2019 10:31 AM Modules accepted: Orders SROOM WORKER * Communication Body - Letitia Vidal RN - 07/11/2019 3:39 PM CST No complaints during this assessment SROOM WORKER documented in this encounter Plan of Treatment Scheduled Orders Name Type Priority Associated Diagnoses Orde r Schedule BMP8 ABAXIS (FLORES WAIVED) Lab Routine Chronic kidney disease (CKD), stage II (mild) Hyperkalemia Ordered: 07/11/2019 documented as of this encounter Procedures Procedure Name Priority Date/Time Associated Diagnosis Comments BASIC METABOLIC PANEL (CALCIUM TOTAL) Routine 07/24/2019 1:04 PM PRESSROOM WORKER Chronic kidney disease (CKD), stage II (mild) Hyperkalemia SODIUM URINE RANDOM Routine 07/24/2019 1 :03 PM PRESSROOM WORKER Chronic kidney disease (CKD), stage II (mild) Hyperkalemia documented in this encounter Results * (ABNORMAL) BASIC METABOLIC PANEL (CALCIUM TOTAL) (07/24/2019 1:04 PM PRESSROOM WORKER) Glucose 94 65 - 99 mg/dL [facility] INSURANCE BILL BUN 20 6 - 24 mg/dL [facility] INSURANCE BILL Creatinine 1.32(H) 0.76 - 1.27 mg/dL [facility] INSURANCE BILL eGFR by MDRD 61 >59 mL/min/1.7 3 [facility] INSURANCE BILL eGFR by MDRD 70 >59 mL/min/1.7 3 [facility] INSURANCE BILL BUN/Creatinine Ratio 15 9 - 20 [facility] INSURANCE BILL Sodium 142 134 - 144 mmol/L [facility] INSURANCE BILL Potassium 5.0 3.5 - 5.2 mmol/L [facility] INSURANCE BILL Chloride 100 96 - 106 mmol/L [facility] INSURANCE BILL CO2 29 20 - 29 mmol/L [facility] INSURANCE BILL Calcium 9.6 8.7 - 10.2 mg/dL [facility] INSURANCE BILL Comment:FASTING Blood BLOOD SPECIMEN / Unknown 07/24/2019 1:04 PM PRESSROOM WORKER 07/24/2019 Narrative Resulting Agency Comment Lab Testing performed at: [facility] [place] [address] ??[facility] [phone] America Oneal MD LAB - CH EMISTRY ORDERABLES [facility] INSURANCE BILL [address] [place] [address] * SODIUM URINE RANDOM (07/24/2019 1:03 PM PRESSROOM WORKER) Sodium Urine 53 Not Estab. mmol/L [facility] INSURANCE BILL Urine URINE SPECIMEN OBTAINED BY CLEAN CATCH PROCEDURE / Unknown 07/24/2019 1:03 PM PRESSROOM WORKER 10/30/2019 Narrative Resulting Agency Comment Lab Testing performed at: [facility] [place] [address] ??[facility] [phone] America Oneal MD LAB - UR INE CHEMISTRY ORDERABLES [facility] INSURANCE BILL [address] [place] [address] documented in this encounter Visit Diagnoses Diagnosis Hyperkalemia- Primary Hyperpotassemia Chronic kidney disease (CKD), stage II (mild) Chronic kidney disease, Stage II (mild) documented in this encounter Care Teams Continuing Education Specialist Relationship Specialty Start Date End Date Natasha Bates PA-C [address] [place] [phone] PCP - General 03/21/19 06/20/23 documented as of this encounter
--- OUTSIDE RECORDS SUMMARY | 2024-05-22 05:43 | XMS_ITS | Encounter Summary ---
Author Organization [facility] Address [address] [place] [address] Care Team Providers Care Hospice Home Health Aide Name Role Phone Natasha Bates PA-C Primary Care Provider + Reason for Referral * Radiology Services (Routine) - Closed Specialty Diagnoses / Procedures Referred By Malena sagastume Referred To Contact Echosonography Diagnoses Establishing care with new doctor, encounter for Procedures ECHO STRESS W DOBUTAMINE Tylor Salazar MD [address] [facility] [address] [place] [address] [facility] Echo [address] [place] [address] Referral ID Status Reason Start Date Expiration Date Visits Re quested Visits Authorized [id number] Closed 05/11/2019 11/07/2019 1 1 ARCH MANAGER Reason for Visit * Reason Comments Establish Care Encounter Details Date Type Department Care Team (Late st Contact Info) Description 05/11/2019 1:30 PM RESEARCH MANAGER Office Visit [facility] [address] [facility] [address] [place] [address] Tylor Salazar MD [address] [facility] [address] [place] [address] Class 3 severe obesity due to excess calories without serious comorbidity with body mass index (BMI) of 45.0 to 49.9 in adult (HCC) (Primary Dx); Establishing care with new doctor, encounter for; Need for influenza vaccination; Essential hypertension; LVH (left ventricular hypertrophy) due to hypertensive disease, with heart failure (HCC); Mixed hyperlipidemia; CRD (chronic renal disease), stage II; Pedal edema; Chronic right heart failure (HCC); Snoring; MIRELLA (obstructive sleep apnea) Social History Tobacco [...] Sign Reading Time Taken Comments Blood Pressure 164/84 05/11/2019 1:34 PM RESEARCH MANAGER Pulse 78 05/11/2019 1:34 PM RESEARCH MANAGER Temperature - - Respiratory Rate - - Oxygen Saturation 94% 05/11/2019 1:34 PM RESEARCH MANAGER Inhaled Oxygen Concentration - - Weight 167.8 kg (370 lb) 05/11/2019 1:34 PM RESEARCH MANAGER Height 188 cm (6' 2 ) 05/11/2019 1:34 PM RESEARCH MANAGER Body Mass Index 47.51 05/11/2019 1:34 PM RESEARCH MANAGER documented in this encounter Patient Instructions * Patient Instructions* Tylor Salazar MD - 05/11/2019 2:13 PM RESEARCH MANAGER Please obtain the stress test and lab work. We will see you back in 4-6 weeks to discuss the results. Increase your furosemide from 20mg once a day to 40mg once a day. Thank you. ARCH MANAGER documented in this encounter Progress Notes * Yonas Stratton MD - 05/11/2019 2:00 PM CST ATTENDING PHYSICIAN NOTE Patient seen and examined with the resident. I confirm the history, exam, assessment and plan. In addition I note: Chief complaint: HTN, HL, CKD not near HD History: Obese and HTN, LVH/HL. Mild CRF. Cath 10 yrs ago and nonobstructive. ECHO also done at [facility]. Followed by PCP. LUZ 1-2 flights. Edema. Bariatric surgery to be considered. Sleep study planned. No FH of CAD. No CP. Lasix 20 mg QD. Edema for yrs. ImDur for 10 years. ? After bout of CP 10 yrs ago. On BB and statin. Under 400 lbs. BP up. ECG with sinus rhythm. No LVH. Compression stockings. No recent fever chills. Social History Socioeconomic History Marital status: Single [...] reviewed Lab Results: Recent Labs Component Name 04/18/19 1505 WBC 13.7* HGB 13.2* HCT 42.9 PLTCOUNT 263 Recent Labs Component Name 04/18/19 1505 POTASSIUM 5.4* CO2 32* BUN 24 CREATININE 1.3* CALCIUM 9.4 No results for input(s): INR, PT, PTT in the last 69029 hours. No results for input(s): ALBUMIN, ALKPHOS, ALT, AST, TBIL, DBIL, TPROT in the last 94927 hours. No results for input(s): TSH in the last 85107 hours. No results for input(s): CKMB, TROPONIN, MYOGLOBIN in the last 85434 hours. No results for input(s): LMS0QUW, PO2ART, V1ZGFQDU, BEART, FIO2 in the last 27907 hours. Invalid input(s): PHART, PYR8PTC No results for input(s): CHOL, HDL, TRIG, LDLCALC in the last 94540 hours. ECG reviewed: Sinus normal ECG. CXR reviewed: none Assessment/Plan: Obese and HTN, LVH/HL. Mild CRF. Cath 10 yrs ago and nonobstructive. ECHO also done at [facility]. Followed by PCP. LUZ 1-2 flights. Edema. Bariatric surgery to be considered. Sleep study planned. No FH of CAD. No CP. Lasix 20 mg QD. Edema for yrs. ImDur for 10 years. ? After bout of CP 10 yrs ago. On BB and statin. Under 400 lbs. BP up. ECG with sinus rhythm. No LVH. Compression stockings. No recent fever chills. Dobi ECHO. CT if nondiagnostic. Headed for bariatric surgery. Final plans for statin after lipid panel. Follow status, weight, vitals and edema, Titrate meds prn. Keep K > 4, Mg > 2, SaO2 > 92% and Hgb > 9. FU in 6 weeks. Please see the resident's note for further details. Yonas Stratton MD, F.A.C.C. audit intern 05/11/2019 2:00 PM ARCH MANAGER * Tylor Salazar MD - 05/11/2019 1:47 PM CST [facility] History Of Present Illness: Howie Delaney is a 53 year old with CKD, HTN, morbid obesity, HLD who presents to [facility]. SOB with 1-2 flights. Sleep study ordered. Remote history of cardiac catherization 10 years ago at [facility], per patient report. No chest pain, chest discomfort, light headedness/dizziness, palpitations, claudications, edema, orthopnea or PND. The ASCVD Risk score ([place] KRZYSZTOF Baron, et al., 2013) failed to calculate for the following reasons: Cannot find a previous HDL lab Cannot find a previous total cholesterol lab FHx: -HTN SHx: -Tobacco: Denies -EtoH: Occasional -Illicits: Denies Review of Systems: As per HPI. Past Medical/Surgical History: No past medical history on file. No past surgical history on file. Family [...] ??? patiromer (VELTASSA) 8.4 g packet Take 8.4 g by mouth daily with food Measure 1/3 [...] oral medications 3 hours before or after.? POTASSIUM PO ??? pravastatin (PRAVACHOL) 20 MG tablet Take 20 mg by mouth at bedtime No current facility-administered medications for this visit. Allergies: No Known Allergies OBJECTIVE: Vitals: 05/11/19 1334 BP: 164/84 Pulse: 78 SpO2: 94% Weight: (!) 370 lb (167.8 kg) Height: 6' 2 (1.88 m) Body mass index is 47.51 kg/m??. PHYSICAL EXAM: General: Morbidly Obese, Alert [...] LABS: Reviewed EKG: Reviewed. HOLTER/EVENT MONITOR: TTE/SEAN: 2006 STRESS: 2017 Lexiscan normal, per patient report ([facility]) CTA CORONARY: n/a CATHERIZATIONS:2006 Normal, per patient report. Assessment/Plan: Morbid Obesity -DSE to risk stratify for bariatric surgery -Lipid panel and likely atorvastatin 40mg qday HFpEF (undiagonsed) -TTE -Increase lisinopril from 20mg qday to 40mg qday Tylor Salazar MD Cardiovascular Fellow [facility] P: [phone] ARCH MANAGER documented in this encounter Plan of Treatment Scheduled Orders Name Type Priority Associated Diagnoses Order Schedule ECHO STRESS W DOBUTAMINE Echocardiography Radiant Routine Establishing care with new doctor, encounter for Expected: 05/11/2019, Expires: 05/11/2020 documented as of this encounter Procedures Procedure Name Priority Date/Time Associated Diagnosis Comments HEMOGLOBIN A1C Routine 07/05/2019 12:32 PM RESEARCH MANAGER Establishing care with new doctor, encounter for PROC EKG IN CLINIC Routine 05/11/2019 1: 34 PM RESEARCH MANAGER Establishing care with new doctor, encounter for documented in this encounter Results * (ABNORMAL) HEMOGLOBIN A1C (07/05/2019 12:32 PM RESEARCH MANAGER) Hemoglobin A1c 5.7(H) 4.8 - 5.6 % [facility] INSURANCE BILL Comment: ? . ? Prediabetes: 5.7 - 6.4 ? Diabetes: >6.4 ? Glycemic control for adults with diabetes: <7.0 FASTING Blood BLOOD SPECIMEN / Unknown 07/05/2019 12:32 PM RESEARCH MANAGER 07/05/2019 Narrative Resulting Agency Comment Lab Testing performed at: [facility] [address] ??[facility] [phone] Tylor Salazar MD LAB - CHEMISTRY [facility] INSURANCE BILL [address] [place] [address] * EKG - Clinic Performed (05/11/2019 1:34 PM RESEARCH MANAGER) Tylor Salazar MD ECG ORDERABLES documented in this encounter Visit Diagnoses Diagnosis Class 3 severe obesity due to excess calories without serious comorbidity with body mass index (BMI) of 45.0 to 49.9 in adult (HCC)- Primary Establishing care with new doctor, encounter for Need for influenza vaccination Need for prophylactic vaccination and inoculation against influenza Essential hypertension LVH (left ventricular 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
--- OUTSIDE RECORDS SUMMARY | 2024-05-22 05:48 | XMS_ITS | Encounter Summary ---
Author Organization [facility] Address [address] [place] [address]. [place], [place] [id number] [place] [id number] Care Team Providers Care Tool Smith Name Role Phone Cristofer Cruz PA-C Primary Care Provider + Neurology, [facility] Unavailable [phone] Reason for Referral * Consultation (Routine) - Closed Specialty Diagnoses / Procedures Referred By Malena sagastume Referred To Contact NEUROLOGY Diagnoses Ptosis of both eyelids Emely Andersen DO Neurology, [facility] [address] [place] [address] Phone: tel: fax: Referral ID Status Reason Start Date Expiration Date V isits Requested Visits Authorized [id number] Closed Specialty Services 08/27/2021 09/26/2022 1 1 * Imaging (Urgent) - Closed Specialty Diagnoses / Procedures Referred By Malena sagastume Referred To Contact RADIOLOGY Procedures CT CHEST WO CON Ayush Abreu MD Phone: tel: fax: Referral ID Status Reason Start Date Expiration Date Visits Re quested Visits Authorized [id number] Closed 08/26/2021 09/25/2022 1 1 * (Routine) - Canceled Specialty Diagnoses / Procedures Referred By Malena sagastume Referred To Contact Procedures OT eval and treat Ayush Abreu MD Phone: tel: fax: Referral ID Status Reason Start Date Expiration Date V isits Requested Visits Authorized [id number] Canceled 08/26/2021 09/25/2022 1 1 * (Routine) - Canceled Specialty Diagnoses / Procedures Referred By Contac t Referred To Contact Procedures PT eval and treat Ayush Abreu MD Phone: tel: fax: Referral ID Status Reason Start Date Expiration Date V isits Requested Visits Authorized [id number] Canceled 08/26/2021 09/25/2022 1 1 * Imaging (Urgent) - Closed Specialty Diagnoses / Procedures Referred By Contac t Referred To Contact RADIOLOGY Procedures MRI BRAIN WWO CON Gregory Keith MD [address] [place] [address] Phone: tel: fax: Referral ID Status Reason Start Date Expiration Date Visits Re quested Visits Authorized [id number] Closed 08/26/2021 09/25/2022 1 1 * Imaging (Emergency) - Closed Specialty Diagnoses / Procedures Referred By Contac t Referred To Contact RADIOLOGY Procedures CTA HEAD+NECK Lori Garnica FNP [address] [facility] [address] [place] [address] Phone: tel: fax: Referral ID Status Reason Start Date Expiration Date Visits Re quested Visits Authorized [id number] Closed 08/26/2021 09/25/2022 1 1 * Imaging (Urgent) - Closed Specialty Diagnoses / Procedures Referred By Contac t Referred To Contact RADIOLOGY Procedures CT HEAD WO CON Lori Garnica FNP [address] [facility] [address] [place] [address] Phone: tel: fax: Referral ID Status Reason Start Date Expiration Date Visits Re quested Visits Authorized [id number] Closed 08/26/2021 09/25/2022 1 1 Reason for Visit * Reason Comments Eye Problem * Auth/Cert Specialty Diagnoses / Procedures Referred By Malena sagastume Referred To Contact Diagnoses 3rd cranial nerve palsy 3rd cranial nerve palsy Procedures GENERAL Referral ID Status Reason Start Date Expiration Date Visits Re quested Visits Authorized [id number] 1 1 Encounter Details Date Type Department Care Team (Late st Contact Info) Description 08/26/2021 6:22 PM CDT - 08/27/2021 4:28 PM CDT Hospital Encounter [facility] [place] [address] Gregory Keith MD [address] [facility] [address] [place], [place] [id number] Flaquito Gómez, [address] [facility] [address] [place] [id number] Eye Problem Discharge Disposition: Home or Self Care (Routine Discharge) Social History Tobacco Use Types Packs/Day Years Used Date Smoking Tobacco: Never Smokeless Tobacco: Never Alcohol Use Standard Drinks/Week Comments Never 0 (1 standard drink = 0.6 oz pur e alcohol) Sex and Gender Information Value Date Recorded Sex Assigned at Not on file Legal Sex Male 10:45 PM CDT Gender Identity Not on file Sexual Orientation Not on file COVID-19 Exposure Response Date Recorded In the last 10 days, have yo u been in contact with someone who was confirmed or suspected to have Coronavirus/COVID-19? No / Unsure 08/26/2021 6:07 PM CDT documented as of this encounter Last Filed Vital Signs Vital Sign Reading Time Taken Comments Blood Pressure 117/72 08/27/2021 1:35 PM CDT Pulse 80 08/27/2021 1:35 PM CDT Temperature 36.8 ??C (98.2 ??F) 08/27/2021 1:35 PM CD T Respiratory Rate 18 08/27/2021 1:35 PM CDT Oxygen Saturation 97% 08/27/2021 1:35 PM CDT Inhaled Oxygen Concentration - - Weight 118.7 kg (261 lb 11 oz) 08/26/2021 6:17 P M CDT Height 182.9 cm (6') 08/26/2021 6:17 PM CDT Body Mass Index 35.49 08/26/2021 6:17 PM CDT documented in this encounter Discharge Summaries * Emely Andersen, DO - 08/27/2021 1:08 PM CDT Images from the original note were not included. Discharge Summary Sandy Carr male 1965 Notes to PCP: - Recommend discontinuation of B12 supplementation as levels elevated on admission. Patient has hadgastric sleeve, so should follow up with surgeon to determine need for re-starting. Follow Up Appointments: Specialty: PCP, Date: 1 week, patient to schedule Specialty: Neurology, Date: 2 weeks, patient to schedule Specialty: Ophthalmology, Date: 2 weeks, patient to schedule Admit Date: 08/26/2021 6:22 PM Discharge date and time: 08/27/21 Discharged to home Admitting Physician: Dr. Gómez Primary Care Physician: CRISTOFER CRUZ PA-C Discharge Physician: Dr. 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 CT head, CTA head and neck and MRI brain WWO had no acute findings. Neurology was consulted, who evaluated the patient and found no evidence of oculomotor nerve palsy. They recommended myasthenia gravis labs and to follow up with neurology and ophthalmology in 2 weeks. At the time of discharge, the patient was hemodynamically stable and their questions were answered.They were given instructions to return to the emergency department if they developed any new concerning symptoms such as weakness, chest pain or shortness of breath. Imaging Requiring Follow Up: CTA Head + Neck: Diffuse enlargement and heterogeneous enhancement of the thyroid. Probable multinodular goiter which could be followed up with nonemergent ultrasound. Discharge Medications: Medication List CONTINUE taking these medications Morning Afternoon Evening Bedtime As Needed acetaminophen 500 MG tablet Commonly known as: TYLENOL Take 1,000 mg by mouth every 6 (six) hours as needed. allopurinol 100 MG tablet Commonly known as: ZYLOPRIM allopurinol 100 mg tablet TAKE 2 TABLETS BY MOUTH TWICE DAILY DIRECTED Last time this was given: 200 mg on August 27, 2021 11:12 AM atorvastatin 40 MG tablet Commonly known as: LIPITOR Take 40 mg by mouth daily. Calcium 1000 + D 1000-800 MG-UNIT Tabs Take 1 tablet by mouth daily. Last time this was given: Ask your nurse or doctor Generic drug: Calcium Carb-Cholecalciferol Daily-Maynor Tabs Take 1 tablet by mouth daily. FLUoxetine 20 MG capsule Commonly known as: PROzac Take 1 capsule by mouth every morning. Last time this was given: 20 mg on August 27, 2021 8:15 AM furosemide 20 MG tablet Commonly known as: LASIX Take 20 mg by mouth daily as needed. gabapentin 600 MG tablet Commonly known as: NEURONTIN Take 1,200 mg by mouth daily. Last time this was given: Ask your nurse or doctor triamcinolone 0.025 % cream Commonly known as: KENALOG Apply to left nelson twice daily when inflammed STOP taking these medications vitamin B-12 500 MCG tablet Commonly known as: CYANOCOBALAMIN Discharge Exam: Filed Vitals: 08/27/21 0700 08/27/21 0819 08/27/21 1118 08/27/21 1335 BP: 113/68 109/61 117/72 Pulse: 59 82 80 Resp: 18 18 18 Temp: 98.2 ??F (36.8 ??C) TempSrc: Oral SpO2: 95% 98% 94% 97% Weight: Height: Physical Exam Vitals and nursing note reviewed. Constitutional: General: He is not in acute distress. HENT: Head: Normocephalic and atraumatic. Eyes: General: Vision grossly intact. No visual field deficit. Extraocular Movements: Extraocular movements intact. Conjunctiva/sclera: Conjunctivae normal. Comments: Medial wandering of left eye on accomodation Cardiovascular: Rate and Rhythm: Normal rate and regular rhythm. Pulses: Normal pulses. Pulmonary: Effort: Pulmonary effort is normal. No respiratory distress. Abdominal: General: There is no distension. Palpations: Abdomen is soft. Musculoskeletal: General: No swelling. Normal range of motion. Cervical back: Normal range of motion and neck supple. Skin: General: Skin is warm and dry. Capillary Refill: Capillary refill takes less than 2 seconds. Neurological: Mental Status: He is alert and oriented to person, place, and time. GCS: GCS eye subscore is 4. GCS verbal subscore is 5. GCS motor subscore is 6. Cranial Nerves: Facial asymmetry (Left facial droop) present. No dysarthria. Psychiatric: Mood and Affect: Mood normal. Behavior: Behavior normal. Thought Content: Thought content normal. Judgment: Judgment normal. Emely Andersen DO PGY-1 Family Medicine Cosigned by Flaquito Gómez DO at 08/27/2021 4:58 PM CDT documented in this encounter Discharge Instructions * Discharge Instructions* Emely Andersen DO - 08/27/2021 3:37 PM CDT Ophthalmology referral was 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 placed, please contact your PCP and ask them to place an ophthalmology referral. * Attachments The following attachments cannot be sent through Care Everywhere. * Ramirez's Palsy (U[place]ayan) * Myasthenia Gravis Discharge Instructions (U[place]ayan) documented in this encounter Medications at Time of Discharge acetaminophen 500 MG tablet Take 1,000 mg by mouth every 6 (six) hours as needed. 01/30/2021 allopurinol 100 MG tablet allopurinol 100 mg tablet TAKE 2 TABLETS BY MOUTH TWICE DAILY DIRECTED 03/03/2021 atorvastatin 40 MG tablet Take 40 mg by mouth daily. Calcium Carb-Cholecalcif randal (CALCIUM 1000 + D) 1000-800 MG-UNIT Tab Take 1 tablet by mouth daily. FLUoxetine 20 MG capsule Take 1 capsule by mouth every morning. 02/26/2021 furosemide 20 MG tablet Take 20 mg by mouth daily as needed. gabapentin 600 MG tablet Take 1,200 mg by mouth daily. 06/29/2021 Multiple Vitamin (DAILY-MAYNOR) Tab Take 1 tablet by mouth daily. triamcinolone 0.025 % cream Apply to left nelson twice daily when inflammed 05/06/2021 documented as of this encounter Progress Notes * Tiffani Elias RN - 08/27/2021 1:44 PM CDT NCM performed bedside interview: Patient name and verified. Support: Family members. Home: Lives at home alone, daughter there when home from school. Ambulation: Reports independent prior to admission. DME products: None Medical Devices: None ADLs: Reports independent prior to admission. Transport Home: Self Skin/Bladder/Bowel: No deficits reported. A/O: Answers questions with intent and clarity. Communication: No deficits noted or reported. Home Health: None Occupation: None Pharmacy: [facility] Concerns: None PCP/Insurance Plan: Paulo / JOANNA Discharge needs: No needs identified at this time. NCM will provide discharge planning as needed, and will re-evaluate based on recommendations and treatment course. 08/27/21 1343 Referral Data Referral Reason Discharge Planning Source of Information Patient Patient Information Primary Caregiver Self Support System Immediate family Baseline ADL's Functional Status Independent Living Arrangements Alone Type of Residence Private residence Ambulation Assistance No Bathing/Grooming Assistance No Dressing Assistance No Behavior Cooperative;Oriented Communication Talks;Understands speaking;Understands [place] Anticipated DC Plan Living Arrangements Alone Support Systems Family members Type of Residence Private residence Assistance Needed No Patient expects to be discharged to: Home documented in this encounter H&P Notes * Ayush Abrue MD - 08/27/2021 1:09 AM CDT HISTORY AND PHYSICAL EXAM DATE: 08/26/2021 CC: eye weakness HPI: Sandy Carr is a 55-year-old male With pmhx of history of HTN, gout, HLD, CHF, pulmonary HTN, MIRELLA onCPAP with supplemental O2, fatty liver, CKD stage III, gastric sleeve in 2020 and AUS on 05/27. He is coming in with a 3 day history of eye weakness that occurs while he is driving. He went to an opthalmology appointment today for glasses but they became concerned for ptosis and pupil problems anddirected him to ED. He has no pain or pressure in eye as well as no headache. Resting makes it suzette and he says after prolonged driving, it gets worse. No other sx's except feels dehydrated. He is working more and having less sleep, per the fiance. She states that he is more tired than usual as heis working more and sleep on average 5 hours a night. 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 His diet is well balanced and consists of fish, chicken and carbs. He endorses no alcohol and no recreational drug use other than remote marijuana use. He does have 10 pack year smoking history He takes B12 and calcium, and multivitamin. Other than a father with thyroid and adrenal issues he has no personal or family history of autoimmune diseases or neuro history. REVIEW OF SYSTEMS: Review of Systems Constitutional: Negative. HENT: Negative. Respiratory: Negative. Cardiovascular: Negative. Gastrointestinal: Negative. Genitourinary: Negative. Musculoskeletal: Negative. Skin: Negative. Neurological: Positive for weakness. Negative for dizziness, tingling, tremors, sensory change, speech change, focal weakness, seizures, loss of consciousness and headaches. PAST MEDICAL HISTORY: Past Medical History: Diagnosis Date ??? CHF (congestive heart failure) (CMS/HCC) ??? Neuropathy ??? Renal disorder ??? Sleep apnea SURGICAL HISTORY: Past Surgical History: Procedure Laterality Date ??? IMPLANT ARTIFICIAL SPHINCTER ALLERGIES: No Known Allergies MEDICATIONS: Prior to Admission medications Medication Sig Start Date End Date Taking? Authorizing Provider allopurinol 100 MG tablet allopurinol 100 mg tablet TAKE 2 TABLETS BY MOUTH TWICE DAILY DIRECTED 03/03/21 Yes Doc Abstract FLUoxetine 20 MG capsule Take 1 capsule by mouth every morning. 02/26/21 Yes Doc Abstract Calcium Carb-Cholecalciferol (CALCIUM 1000 + D) 1000-800 MG-UNIT Tab Doc Abstract furosemide 20 MG tablet Take 20 mg by mouth daily as needed. Doc Abstract gabapentin 600 MG tablet Take 600 mg by mouth 3 (three) times daily as needed. 06/29/21 Doc Abstract vitamin B-12 (CYANOCOBALAMIN) 500 MCG tablet Take 1 capsule by mouth daily. Doc Abstract SOCIAL HISTORY: Social History Socioeconomic History ??? Marital status: Single Spouse name: Not on file ??? Number of children: Not on file ??? Years of education: Not on file ??? Highest education level: Not on file Occupational History ??? Not on file Tobacco Use ??? Smoking status: Never Smoker ??? Smokeless tobacco: Never Used Substance and Sexual Activity ??? Alcohol use: Never ??? Drug use: Not on file ??? [...] file Intimate Partner Violence: Not on file FAMILY HISTORY: No family history on file. PRIMARY CARE PROVIDER: CRISTOFER CRUZ PA-C CODE STATUS: Full Code PHYSICAL EXAM: Vitals: Blood pressure 128/85, pulse 65, temperature 97.2 ??F (36.2 ??C), resp. rate 20, height 6' (1.829 m), weight 118.7 kg (261 lb 11 oz), SpO2 100 %., Body mass index is 35.49 kg/m??. Temp: [97.2 ??F (36.2 ??C)] 97.2 ??F (36.2 ??C) Pulse: [65-70] 65 Resp: [18-20] 20 BP: (128-152)/(85-93) 128/85 Physical Exam HENT: Head: Normocephalic and atraumatic. Mouth/Throat: Mouth: Mucous membranes are moist. Cardiovascular: Pulses: Normal pulses. Heart sounds: Normal heart sounds. Pulmonary: Effort: Pulmonary effort is normal. Breath sounds: Normal breath sounds. Abdominal: General: Abdomen is flat. Palpations: Abdomen is soft. Neurological: Mental Status: He is alert and oriented to person, place, and time. Cranial Nerves: Cranial nerve deficit (right pupil does not constrict to light or accomdation as much as left eye, there is some ptosis w/ EOM, rest of cranial nerves intactr) and facial asymmetry present. Sensory: Sensation is intact. Motor: Motor function is intact. No weakness, tremor, atrophy or abnormal muscle tone. Coordination: Coordination is intact. Gait: Gait is intact. Psychiatric: Mood and Affect: Mood normal. Behavior: Behavior normal. Labs: Recent Labs Lab 08/26/21 1833 NA 139 K 3.8 CL 104 CO2 31.7 AGAP 3.3* BUN 23* GFR 72* GFRNON 62* CA 8.7 GLU 82 , Recent Labs Lab 08/26/21 1833 NA 139 K 3.8 CL 104 CO2 31.7 AGAP 3.3* CA 8.7 GLU 82 BUN 23* GFR 72* GFRNON 62* AST 23 ALT 26 ALB 2.9* TP 8.1 , Recent Labs Lab 08/26/21 1833 WBC 12.5* RBC 4.52* HGB 14.3 HCT 44.8 MCV 99.1* MCH 31.6* MCHC 31.9* RDW 14.8* PLT 235 MPV 12.3* PERLYM 29.9 PERMON 7.6 BASO 0.6 DTYPE AUTOMATED DIFFERENTIAL , Recent Labs Lab 08/26/21 1833 PTT 30.0 INR 1.1 , Recent Labs Lab 08/26/21 1833 TROP 15 TSH 1.84 Cultures: none Cardiac: Results for orders placed or performed during the hospital encounter of 08/26/21 ECG 12 lead Narrative [place] [address] Test Date: 2021-08-26 Pat Name: SANDY CARR Department: 41 Room: 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 A dose lowering technique was used for this procedure, which may include, but is not limited to, dose reduction technique, automated exposure control, iterative reconstruction, ALARA (As Low As Reasonably Achievable), or Image Gently techniques. Referred By: Interpreted By: Camilo Beckman MD, 08/26/2021 7:38 PM 08/26/211935 CTA HEAD+NECK Final result Impression: IMPRESSION: 1. Less than 50% stenosis in the proximal right ICA. 2. Tortuous internal carotid arteries bilaterally in the neck. 3. Probable multinodular goiter. Referred By: Interpreted By: Camilo Beckman MD, 08/26/2021 8:02 PM 08/26/21 185 XR CHEST PORTABLE Final result Impression: =====IMPRESSION:===== No definite focal infiltrates. Incomplete visualization of the right lower lateral rib cage and the chest wall as described. Would consider repeat chest radiograph. Ordered By: LORI GARNICA Interpreted By: Anjum Rivera MD, 08/26/2021 7:16 PM ASSESSMENT AND PLAN: Patient is a 55-year-old male with PMHx of HTN, gout, HLD, CHF, pulmonary HTN, MIRELLA on CPAP with supplemental O2, fatty liver, CKD stage III, gastric sleeve in 2020 and AUS on 05/27 admitted for bilateral ptosis and right sided cranial nerve 3 palsy. #cranial nerve 3 palsy #left facial droop Ddx includes ramirez's palsy vs TIA vs Myasthenia gravis vs Vitamin Deficiency vs Apical vs Mediastinal Tumor vs Fatigue. Less likely include thyroid opthalmopathy and B12 deficiency due to (TSH normal,Vitamin b12 1.506). CT head an neck are all reassuring. WBC is high at 12.5. ESR and CRP are elevated at 38 and 1.06, respectively. Lipid panel WNL. Patient does not endorse any other sick sx's. There are no other focal deficits or weakness in the body. -neurology is consulted -Nerve studies -MRI head -given 1 dose of ASA -ct chest -Vitamin E, magnesium, and folate levels Stable Chronic Conditions: HLD diet controlled HTN diet controlled CHF- on lasix 20mg PRN Pulm HTN/ can continue home MIRELLA CKD stage 3- see a nephrologists, NTD at this visit, Cr is 1.28 Fluids: none Diet: general VTE Prophylaxis: none Patient Status: Appropriate for observation due to history of cranial nerve 3 palsy with a extensive work up. Expected length of stay >48 hours. DISPOSITION: Will need to cleared by neurology prior to leaving Ayush Abreu MD PGY-1, Family Medicine Cosigned by Flaquito Gómez DO at 08/27/2021 8:58 AM CDT Associated attestation - Flaquito Gómez DO - 08/27/2021 8:58 AM CDT I saw the patient and discussed the plan with the residents. I agree with the documented assessmentand plan. Dg Gómez DO Staff Physician documented in this encounter Consult Notes * Kun Avila MD - 08/27/2021 3:20 PM CDT Consults Attending Provider: Flaquito Gómez* PCP: ADILSON HANNAmoises Carr is an 55-year-old male. Reason for Admission: 3rd cranial nerve palsy History of Present Illness: HPI Seen during telemedicine session, using secure, HIPAA compliant, real-time audiovideo connection. RN at bedside. Chart reviewed. Events noted. History was obtained from patient and chart. Patient was sent to emergency room by foam gun operator with a probable diagnosis of oculomotor nerve palsy. Dr abreu noted right pupil not reacting very well compared to left and left facial droop. Patient reports droopy eyelids for last few days while driving. No history of double vision, unusual fatigue, slurred speech, shortness of breath, tick bite, travail, consumption of canned food, tingling and numbness in extremities, focal weakness, headache and incoordination. Past Medical History: Diagnosis Date ??? CHF (congestive heart failure) (CMS/HCC) ??? Neuropathy ??? Renal disorder ??? Sleep apnea Allergies: Allergies Allergen Reactions ??? Aspirin Other (see comment) and Unknown hematuria hematuria Social History Tobacco Use ??? Smoking status: Never Smoker ??? Smokeless tobacco: Never Used Substance Use Topics ??? Alcohol use: Never Past Surgical History: Procedure Laterality Date ??? IMPLANT ARTIFICIAL SPHINCTER No family history on file. Travel Exposure: No current facility-administered medications on file prior to encounter. Current Outpatient Medications on File Prior to Encounter Medication Sig ??? acetaminophen 500 MG tablet Take 1,000 mg by mouth every 6 (six) hours as needed. ??? allopurinol 100 MG tablet allopurinol 100 mg tablet TAKE 2 TABLETS BY MOUTH TWICE DAILY DIRECTED ??? FLUoxetine 20 MG capsule Take 1 capsule by mouth every morning. ??? Patiromer Sorbitex Calcium 16.8 g Pack Take 16.8 g by mouth daily. ??? triamcinolone 0.025 % cream Apply to left nelson twice daily when inflammed ??? atorvastatin 40 MG tablet Take 40 mg by mouth daily. ??? Calcium Carb-Cholecalciferol (CALCIUM 1000 + D) 1000-800 MG-UNIT Tab ??? furosemide 20 MG tablet Take 20 mg by mouth daily as needed. ??? gabapentin 600 MG tablet Take 600 mg by mouth 3 (three) times daily as needed. Blood pressure 117/72, pulse 80, temperature 98.2 ??F (36.8 ??C), temperature source Oral, resp. rate 18, height 6' (1.829 m), weight 118.7 kg (261 lb 11 oz), SpO2 97 %. Review of Systems Constitutional: Negative. HENT: Negative. Eyes: Negative. Respiratory: Negative. Cardiovascular: Negative. Gastrointestinal: Negative. Genitourinary: Negative. Musculoskeletal: Negative. Skin: Negative. Neurological: Negative. Endo/Heme/Allergies: Negative. Psychiatric/Behavioral: Negative. Physical Exam Not in acute distress. Head: Normocephalic atraumatic. Nonlabored breathing. Neurological examination: Alert, awake, oriented ??4. Speech and language parameters are intact. Cranial nerves: 2-12 are intact. No objective diplopia, ptosis, nystagmus and facial asymmetry. Application of ice to eyelids did not affect. Sensory: Intact to light touch. Motor: Able to hold bilateral upper extremities at 90?? for 10 seconds and lower extremities at 45?? for 5 seconds. Coordination: Intact bilateral [id number] test. Gait: Deferred. Assessment: I am not able to confirm any oculomotor nerve palsy by clinical exam. Patient reports ptosis while driving for last few days raising possibility of myasthenia gravis. MRI brain: No acute finding, 6 mm focus of attenuation on FLAIR image appears nonspecific. Visualized cranial 3 unremarkable. CTA head and neck: Unremarkable. CT thorax: No mass in the lung apexes and mediastinum. Unremarkable B12, folate, TSH, lipid profile, A1c and RPR. Medical problems per chart noted. Recommendations: I have ordered acetyl choline receptor antibody panel. Patient should arrange follow-up with outside neurologist and grinder brake lining with the hospital record in 2 weeks. Lab results may take up to 1 week. I agree with the workup so far. No medication is prescribed. Diagnostic workup was discussed with patient. Patient can be discharged from neurological perspective Thanks for referral Time spent 30 minutes. My location: [facility] KUN AVILA MD 08/27/2021 documented in this encounter ED Notes * Gregory Keith MD - 08/27/2021 4:28 PM CDT + Lyme antibodies noted. I contacted the patient who has no history of Lyme disease. So, we will treat presumptively for early disseminated Lyme with 21 day course of doxycycline. Rx called in to [facility] [address] He is arranging neurology followup. Gregory Keith MD 08/30/21 1314 * Rambo Benitez RN - 08/27/2021 1:33 PM CDT Lunch has been ordered for PT * Lakshmi Paulino CNA - 08/27/2021 1:12 PM CDT Patient Experience rounding completed. Lakshmi Paulino CNA, Rn Lab, Patient Experience * Rambo Benitez RN - 08/27/2021 10:01 AM CDT Ordered Pt breakfast tray. * Aby White RN - 08/27/2021 1:52 AM CDT Updated with plan of care, jello and juice given per patient request. Declined ASA due to having issues with bleeding in his urine with aspirins and blood thinners on prior admits. * Gregory Keith MD - 08/26/2021 7:04 PM CDT Chief Complaint Chief Complaint Patient presents with ??? Eye Problem History of Present Illness This patient is a 55yo male with PMH HTN, HFpEF who presents to the ED for evaluation of ptosis. The patient reports that for the past week he has felt as though it is difficult to keep his eyelids open. This difficulty is rather constant and does not vary throughout the day/worsen in the evening. He denies headache, double vision, speech disturbance, or focal weakness/numbness. 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 He was then referred to the ED for evaluation. He reports that his eyes were otherwise normal. The patient does not eat canned food. Unrelated, he has experienced some vague chest pressure today. He reports a history of this issue that was evaluated at [facility]. Medical History ALLERGIES: No Known Allergies MEDICATIONS: Prior to Admission medications Not on File PAST MEDICAL HISTORY: Past Medical History: Diagnosis Date ??? CHF (congestive heart failure) (CMS/HCC) ??? Neuropathy ??? Renal disorder ??? Sleep apnea PAST SURGICAL HISTORY: Past Surgical History: Procedure Laterality Date ??? IMPLANT ARTIFICIAL SPHINCTER FAMILY HISTORY: No family history on file. SOCIAL HISTORY: Social History Tobacco Use ??? Smoking status: Never Smoker ??? Smokeless tobacco: Never Used Substance Use Topics ??? Alcohol use: Never ??? Drug use: Not on file Review of Systems Review of Systems Constitutional: Negative. HENT: Negative. Eyes: Positive for visual disturbance. Negative for photophobia. Respiratory: Negative. Cardiovascular: Positive for chest pain. Negative for palpitations and leg swelling. Gastrointestinal: Negative. Musculoskeletal: Negative. Skin: Negative. Neurological: Negative. All other systems reviewed and are negative. Physical Exam Filed Vitals: 08/26/21 1817 08/26/21 1950 BP: (!) 152/93 128/85 Pulse: 70 65 Resp: 18 20 Temp: 97.2 ??F (36.2 ??C) SpO2: 96% 100% Weight: 118.7 kg (261 lb 11 oz) Height: 6' (1.829 m) Physical Exam Vitals and nursing note reviewed. Constitutional: Appearance: Normal appearance. He is well-developed. HENT: Head: Normocephalic and atraumatic. Nose: Nose normal. Mouth/Throat: Mouth: Mucous membranes are moist. Eyes: Conjunctiva/sclera: Conjunctivae normal. Pupils: Pupils are equal, round, and reactive to light. Neck: Vascular: No JVD. Trachea: No tracheal deviation. Cardiovascular: Rate and Rhythm: Normal rate and regular rhythm. Heart sounds: Normal heart sounds. Pulmonary: Effort: Pulmonary effort is normal. Breath sounds: Normal breath sounds. Abdominal: General: There is no distension. Palpations: Abdomen is soft. There is no mass. Tenderness: There is no abdominal tenderness. There is no guarding or rebound. Musculoskeletal: General: Swelling (Mod symmetric LE edema.) present. Normal range of motion. Cervical back: Normal range of motion and neck supple. Skin: General: Skin is warm and dry. Capillary Refill: Capillary refill takes less than 2 seconds. Neurological: General: No focal deficit present. Mental Status: He is alert and oriented to person, place, and time. Sensory: No sensory deficit. Motor: No weakness. Comments: Left eye ptosis. Intranuclear ophthalmoplegia. Right eye lateral hemianopia. Left facial droop. Diagnostic Studies / Procedures ELECTROCARDIOGRAMS: I have interpreted the patient's EKG timed 18:30 as NSR at rate of [address]/T changes. No old EKG available for comparison. 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1965 Requested By: LORI GARNICA Order Number: [id number] Reading MD: Measurements Intervals [place] Rate: 65 P: 12 VT: 154 QRS: 31 QRSD: 111 T: 32 QT: 395 QTc: 413 Interpretive Statements SINUS RHYTHM LEFT ATRIAL ENLARGEMENT [-0.15mV P-WAVE IN V1/V2] MODERATE INTRAVENTRICULAR CONDUCTION DELAY [110+ ms QRS DURATION] Compared to ECG 04/27/2015 11:07:29 Intraventricular conduction delay now present T-wave abnormality no longer present LABORATORY STUDIES: Results for orders placed or performed during the hospital encounter of 08/26/21 PROTIME/INR, VENOUS Result Value Ref Range Protime 12.8 10.2 - 12.9 SEC INR 1.1 CBC W/DIFF AUTOMATED Result Value Ref Range WBC 12.5 (H) 4.5 - 11.0 x10'3/uL RBC 4.52 (L) 4.70 - 6.10 x10'6/uL HGB 14.3 14.0 - 18.0 G/DL HCT 44.8 43.0 - 54.0 % MCV 99.1 (H) 80.0 - 94.0 FL MCH 31.6 (H) 27.0 - 31.0 PG MCHC 31.9 (L) 32.0 - 36.0 G/DL RDW 14.8 (H) 11.5 - 14.5 % PLT 235 130 - 400 x10'3/uL MPV 12.3 (H) 9.3 - 12.2 FL DIFFERENTIAL TYPE AUTOMATED DIFFERENTIAL NEUTROPHILS 59.2 % LYMPHOCYTES 29.9 % MONOCYTES 7.6 % EOSINOPHILS 2.5 % BASOPHILS 0.6 % IMMATURE GRANS 0.2 % ABS. NEUTROPHILS TOTAL 7.40 1.80 - 7.70 x10'3/uL ABS. LYMPHOCYTES 3.73 1.00 - 4.80 x10'3/uL ABS. MONOCYTES 0.95 (H) 0.30 - 0.82 x10'3/uL ABS. EOSINOPHILS 0.31 0.04 - 0.54 x10'3/uL ABS. BASOPHILS 0.07 0.01 - 0.08 x10'3/uL ABS. IMMATURE GRANULOCYTES 0.03 0.00 - 0.49 x10'3/uL PARTIAL THROMBOPLASTIN TIME,PTT Result Value Ref Range PTT 30.0 25.1 - 36.5 SEC COMPREHENSIVE METABOLIC PANEL Result Value Ref Range GLUCOSE 82 70 - 99 MG/DL BUN 23 (H) 7 - 18 MG/DL CREATININE S/P/B 1.28 0.7 - 1.3 MG/DL SODIUM 139 136 - 145 MMOL/L POTASSIUM 3.8 3.5 - 5.1 MMOL/L CHLORIDE S/P/B 104 100 - 108 MMOL/L CO2 31.7 21 - 32 MMOL/L CALCIUM 8.7 8.5 - 10.1 MG/DL BILIRUBIN TOTAL S/P/B 0.5 0.2 - 1.2 MG/DL TOTAL PROTEIN S/P/B 8.1 6.4 - 8.2 G/DL ALBUMIN S/P/B 2.9 (L) 3.4 - 5.0 G/DL AST 23 15 - 37 U/L ALT 26 16 - 60 U/L ALKALINE PHOSPHATASE S/P/B 115 50 - 136 U/L ANION GAP 3.3 (L) 5 - 15 MMOL/L BUN CREATININE RATIO 18.0 6 - 26 A/G RATIO 0.6 (L) 1.0 - 2.0 RATIO eGFR Non-Afr. Amer. 62 (L) >90 ML/MIN/1.73 M2 eGFR Afr. Amer. 72 (L) >90 ML/MIN/1.73 M2 TROPONIN, QUANT Result Value Ref Range TROPONIN I HIGH SENSITIVITY 15 <79 ng/L URINALYSIS Result Value Ref Range Specimen Type URINE CLEAN CATCH COLOR (U) LIGHT YELLOW TRANSPARENCY CLEAR Specific [place] (U) 1.015 1.001 - 1.030 U PH 5.5 5.0 - 9.0 LEUKOCYTE ESTERASE NEGATIVE NEGATIVE NITRITES NEGATIVE NEGATIVE PROTEIN (U) 70 (H) <30 MG/DL URINE GLUCOSE NORMAL NORMAL MG/DL U KETONES NEGATIVE NEGATIVE MG/DL UROBILINOGEN NORMAL NORMAL MG/DL BILIRUBIN (U) NEGATIVE NEGATIVE MG/DL BLOOD NEGATIVE NEGATIVE CULTURE & SENSITIVITY INDICATED? CULTURE IS NOT INDICATED MUCUS RARE /LPF WBC/HPF 2 <6 /HPF RBC/HPF 1 <6 /HPF SQUAMOUS EPITHELIALS RARE /HPF CK (CPK) Result Value Ref Range CPK 114 35 - 232 U/L TSH W/REFLEX Result Value Ref Range TSH 1.840 0.358 - 3.74 uIU/ML IMAGING STUDIES CT HEAD WO CON Final Result by User, [id number] (08/27 1943) EXAM: CT HEAD WO CON DATE: 08/26/2021 COMPARISON: None INDICATION: 3rd nerve palsy. TECHNIQUE: Noncontrast imaging FINDINGS: No hemorrhage, mass effect, or extra-axial fluid collection. Normal ventricular size. No evidence of an acute stroke. Mild flattening of the pituitary gland by CSF can be associated with empty sella syndrome. Normal appearance of the eyes and orbits. Conjugate gaze. No acute bone findings. IMPRESSION: No acute findings. A dose lowering technique was used for this procedure, which may include, but is not limited to, dose reduction technique, automated exposure control, iterative reconstruction, ALARA (As Low As Reasonably Achievable), or Image Gently techniques. Referred By: Interpreted By: Camilo Beckman MD, 08/26/2021 7:38 PM CTA HEAD+NECK Final Result by User, [id number] (08/26 2014) EXAM: CT angiography of the head and neck TECHNIQUE: Study performed after intravenous administration of [address] dose reduction techniques were utilized. Internal carotid stenosis measured according to NASCET criteria. Additional 3D and/or MIP images were created. INDICATION: 3rd nerve palsy A dose lowering technique was used for this procedure, which may include, but is not limited to, dose reduction technique, automated exposure control, the use of iterative reconstruction, and ALARA (As Low As Reasonably Achievable) / Image Gently techniques. COMPARISON: None. FINDINGS: CTA NECK: Aorta and great vessel origins: Normal variation common origin of the brachiocephalic and left common carotid arteries. Right carotid artery: Small calcification at the proximal internal carotid artery. Less than 50% stenosis. Markedly tortuous mid ICA. Left carotid artery: No stenosis. Marked tortuosity of the mid ICA. Vertebral arteries: Normal. CTA HEAD: Small right posterior communicating artery is normal variation. No intracranial stenosis or occlusion. SOFT TISSUES: Diffuse enlargement and heterogeneous enhancement of the thyroid. Probable multinodular goiter which could be followed up with nonemergent ultrasound. Mild ill-defined densities in the upper lobes, left greater than right. Potential edema or infection. Diffuse degenerative disc disease in the cervical spine. IMPRESSION: 1. Less than 50% stenosis in the proximal right ICA. 2. Tortuous internal carotid arteries bilaterally in the neck. 3. Probable multinodular goiter. Referred By: Interpreted By: Camilo Beckman MD, 08/26/2021 8:02 PM XR CHEST PORTABLE Final Result by User, [id number] (08/26 1918) Examination: Chest x-ray 1 view Exam date/time: 08/26/2021 6:26 PM Reason For Exam: chest pressure Comparison: Old studies are from April 2015 Technique: Upright AP view of the chest demonstrated. Findings: Heart size is unchanged and within normal limits. Unremarkable mediastinum. Small atelectatic changes in the left lung base. In the right lung no definite focal infiltrates. There is no pneumothorax. The right lateral costophrenic angle is not completely included including the right lower lateral rib cage. There is a smoothly marginated opacity superimposed to the right lower lateral chest wall which may be a composite shadow due to superimposition of adjacent normal structures. Please correlate clinically and if indicated consider repeat chest imaging including coverage of the right lower chest, right lower rib cage. =====IMPRESSION:===== No definite focal infiltrates. Incomplete visualization of the right lower lateral rib cage and the chest wall as described. Would consider repeat chest radiograph. Ordered By: LORI GARNIAC Interpreted By: Anjum Rivera MD, 08/26/2021 7:16 PM MRI BRAIN WWO CON (Results Pending) ED Course / Medical Decision Making [facility] 12/20/19 -- no CAD. Mod pHTN. The patient rested comfortably throughout his ED stay. He has an odd combination of visual field deficit, left facial droop, ptosis, and internuclear ophthalmoplegia vs. 3rd CN deficit. Diagnostic studies thus far are unrevealing. He was seen in consultation by Dr. Ann (tele-neurology) who favors a neuromuscular etiology. (A brain process needs to be excluded, but a more diffuse process would be required for his constellation of symptoms.) He recommends assorted labs which were added on and admission for MRI with/without contrast and nerve conduction studies tomorrow. Clinical Impression Weakness (Primary) Disposition: Admit Gregory Keith MD 08/26/212107 * Luis Killian RN - 08/26/2021 6:14 PM CDT Pt ambulatory to ED complaining of not being able to keep his eyes open for approx 1 week. 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 Pt denies any other stroke like symptoms documented in this encounter Plan of Treatment Scheduled Referrals Name Type Priority Associated Diagnoses Orde r Schedule Ambulatory referral to Neurology Referral Routine Ptosis of both eyelids Ordered: 08/27/2021 documented as of this encounter Procedures Procedure Name Priority Date/Time Associated Diagnosis Comments ACHR BINDING AB STAT 08/27/2021 2:26 PM CDT ACETYLCHOLINE RECEPTOR BLK STAT 08/27/2021 2:26 PM CDT SYPHILIS IGG AB STAT 08/27/2021 10:12 AM CDT LYME DISEASE ANTIBODY STAT 08/27/2021 10:12 AM CDT LYME DISEASE WESTERN BLOT STAT 08/27/2021 10:12 AM CDT HEMOGLOBIN, GLYCOSYLATED STAT 08/27/2021 5:49 AM CDT COMPREHENSIVE METABOLIC PANEL STAT 08/27/2021 5:49 AM CDT CBC W/DIFF AUTOMATED STAT 08/27/2021 5:49 AM CDT VITAMIN E STAT 08/27/2021 5:[address] CHEST WO CON STAT 08/26/2021 11:46 PM CDT MRI BRAIN WWO CON STAT 08/26/2021 10: 26 PM CDT NERVE CONDUCTION TEST STAT 08/26/2021 9:39 PM CDT CTA HEAD+NECK STAT 08/26/2021 7:[address] HEAD WO CON STAT 08/26/2021 7:36 PM CDT XR CHEST PORTABLE STAT 08/26/2021 6:5 3 PM CDT SED RATE, ERYTHROCYTE (ESR) STAT 08/26/2021 6:37 PM CDT LIPID PANEL STAT 08/26/2021 6:37 PM CDT C-REACTIVE PROTEIN STAT 08/26/2021 6: 37 PM CDT FOLIC ACID SERUM STAT 08/26/2021 6:37 PM CDT MAGNESIUM STAT 08/26/2021 6:37 PM CDT TSH W/REFLEX Routine 08/26/2021 6:33 PM CDT HC URINALYSIS AUTO W/O MICRO STAT 08/26/2021 6:33 PM CDT VITAMIN B-12 Routine 08/26/2021 6:33 PM CDT PARTIAL THROMBOPLASTIN TIME,PTT STAT 08/26/2021 6:33 PM CDT PROTHROMBIN TIME, VENOUS STAT 08/26/2021 6:33 PM CDT COMPREHENSIVE METABOLIC PANEL STAT 08/26/2021 6:33 PM CDT CBC W/DIFF AUTOMATED STAT 08/26/2021 6:33 PM CDT TROPONIN, QUANT STAT 08/26/2021 6:33 PM CDT CK (CPK) Routine 08/26/2021 6:33 PM CDT ECG 12-LEAD Routine 08/26/2021 6:30 PM CDT documented in this encounter Results * ACHR BINDING AB (08/27/2021 2:26 PM CDT) [facility] ACHR BINDING AB <0.30 nmol/L 9:52 PM CDT [facility] Comment: Reference Ranges for Acetylcholine Receptor Binding Antibody: Negative: < or =0.30 nmol/L Equivocal: ??0.31-0.49 nmol/L Positive: > or =0.50 nmol/L Test performed by [facility] ? [address] [facility], ? [place] [address] ? Whittling Room Operator: Radha Knapp MD,PHD,TRUDY Test Reported by [facility] [employer] [place], [address] [place] [address] Shmuel Weldon M.D., Ph.D., Director of Laboratories , CLIA [id number] 08/27/2021 2:26 PM CDT Kun Avila MD LABORATORY Final Resu lt Performing Organization Address [facility] Co de Phone Number [facility] [address] , * ACETYLCHOLINE RECEPTOR BLK (08/27/2021 2:26 PM CDT) ACHR BLOCKING AB <15 <15 09/04/19 11:50 PM CDT [facility] Comment: Units: ??% Inhibition Test performed by [facility] ? [address], ? [place] [address] ? Whittling Room Operator: Radha Knapp MD,PHD,TRUDY Test Reported by [facility] [place], [employer] [place], [address] [place] [address] Shmuel Weldon M.D., Ph.D., Director of Laboratories , CLIA [id number] 08/27/2021 2:26 PM CDT Kun Avila MD LABORATORY Final Resu lt Performing Organization Address City/[facility]/ZIP Co de Phone Number [facility] [address] [place] [address], * (ABNORMAL) LYME DISEASE WESTERN BLOT (08/27/2021 10:12 AM CDT) [facility] LYME AB IGG WESTERN BLOT Negative Negative 09/01/2021 2:25 PM CDT [facility] LYME 18 KD IGG REACTIVE(A) 2 2:25 PM CDT [facility] LYME 23 KD IGG Nonreactive 2 2:25 PM CDT [facility] LYME 28 KD IGG Nonreactive 2 2:25 PM CDT [facility] LYME 30 KD IGG Nonreactive 2 2:25 PM CDT [facility] LYME 39 KD IGG Nonreactive 2 2:25 PM CDT [facility] LYME 41 KD IGG Nonreactive 2 2:25 PM CDT [facility] LYME 45 KD IGG Nonreactive 2 2:25 PM CDT [facility] LYME 58 KD IGG Nonreactive 2 2:25 PM CDT [facility] LYME 66 KD IGG Nonreactive 2 2:25 PM CDT [facility] LYME 93 KD IGG Nonreactive 2 2:25 PM CDT [facility] LYME AB IGM WESTERN BLOT Negative Negative 09/01/2021 2:25 PM CDT [facility] LYME 23 KD IGM Nonreactive 2 2:25 PM CDT [facility] LYME 39 KD IGM Nonreactive 2 2:25 PM CDT [facility] LYME 41 KD IGM Nonreactive 2 2:25 PM CDT [facility] Comment: As per CDC criteria, a Lyme disease IgG immunoblot must show reactivity to at least 5 of 10 specific borrelial proteins to be considered positive; similarly, a positive Lyme disease IgM immunoblot requires reactivity to 2 of 3 specific borrelial proteins. Although considered negative, IgG reactivity to fewer specific borrelial proteins or IgM reactivity to only 1 protein may indicate recent B. burgdorferi infection and warrant testing of a later sample. A positive IgM but negative IgG result obtained more than a month after onset of symptoms likely represents a false IgM result rather than acute Lyme disease. In rare instances, Lyme disease immunoblot reactivity may represent antibodies induced by exposure to other spirochetes. Lyme Immunoblot testing should only be performed on samples from patients who have had a Positive or Equivocal result in a screening assay. [facility], Article 1 of Chapter 5 of Title 32.1, section 32.1-137.06, requires that the following language must be included on every Lyme disease test report issued by a [place] laboratory: Patients undergoing a Lyme disease test should be aware that Lyme disease tests vary and may produce results that are inaccurate. This means a patient may not be able to rely on a positive or negative result. Health care providers are encouraged to discuss Lyme disease test results with the patient for whom the test was ordered. Test Performed by [facility], [facility], [address] [place] [address] Shmuel Weldon M.D., Ph.D., Director of Laboratories , [facility] [id number] 08/27/2021 10:1 2 AM CDT us Emely Allred Nathaly DO LABORATORY Final Result [facility] [address] [place] [address] , * (ABNORMAL) LYME DISEASE ANTIBODY (08/27/2021 10:12 AM CDT) [facility] LYME IGG/IGM 1.71(H) <0.90 Index 08/30/2021 12:48 PM CDT [facility] ANNABEL PAK Comment: Reference ranges: Index ? Interpretation ----- ? <0.90 ? Negative 0.90-1.09 ? Equivocal >1.09 ? Positive As recommended by the Food and Drug Administration (FDA), all samples with positive or equivocal results in a Borrelia burgdorferi antibody screen will be tested using a blot method. Positive or equivocal screening test results should not be interpreted as truly positive until verified as such using a supplemental assay (e.g., B. burgdorferi blot). The screening test and/or blot for B. burgdorferi antibodies may be falsely negative in early stages of Lyme disease, including the period when erythema migrans is apparent. [facility], Article 1 of Chapter 5 of Title 32.1, section 32.1-137.06, requires that the following language must be included on every Lyme disease test report issued by a [place] laboratory: Patients undergoing a Lyme disease test should be aware that Lyme disease tests vary and may produce results that are inaccurate. This means a patient may not be able to rely on a positive or negative result. Health care providers are encouraged to discuss Lyme disease test results with the patient for whom the test was ordered. Test Performed by [facility] [place], [employer] [place], [address] [place] [address] Shmuel Weldon M.D., Ph.D., Director of Laboratories , [facility] [id number] 08/27/2021 10:1 2 AM CDT us Emely Allred Nathaly DO LABORATORY Final Result [facility] [address], * SYPHILIS IGG AB (RPR) (08/27/2021 10:12 AM CDT) SYPHILIS IGG AB NON-REACTI VE NON-REACTI VE 08/27/2021 11:10 AM CDT [facility] 08/27/2021 10:1 2 AM CDT Emely Allred Nathaly DO LABORATORY Final Result [facility] [address] [place] [address], [place] [phone] * HEMOGLOBIN, GLYCOSYLATED (08/27/2021 5:49 AM CDT) HGB A1C 5.4 <5.7 % 08/27/2021 10:22 AM CDT [facility] Comment: ADA GUIDELINES 2010 5.7 TO 6.4% INCREASED RISK OF DIABETES > OR = 6.5% CONSISTENT WITH DIABETES ESTIMATED AVG GLUCOSE 108 mg/dL 08/27/2021 10:22 AM CDT [facility] 08/27/2021 5:49 AM CDT Emely Allred Nathaly DO LABORATORY Final Result Performing Organization Address City/[facility]/ZIP Co de Phone Number [facility] [address] [place] [address], [place] [phone] * VITAMIN E (08/27/2021 5:49 AM CDT) ALPHA-TOCOPHEROL S/P/B 6.4 5.7 - 19.9 mg/L 09/01/2021 11:41 PM CDT [facility] Comment: Levels of alpha-tocopherol <5 mg/L are consistent with Vitamin E deficiency in adults. BETA-GAMMA TOCOPHEROL S/P/B <1.0 <=4.3 mg/L 09/01/2021 11:41 PM CDT [facility] Comment: Vitamin supplementation within 24 hours prior to blood draw may affect the accuracy of the results. This test was developed and its analytical performance characteristics have been determined by [facility] [place], [place]. It has not been cleared or approved by the U.S. Food and Drug Administration. This assay has been validated pursuant to the CLIA regulations and is used for clinical purposes. Test Performed by [facility], [facility], [address] [place], [place] Shmuel Weldon M.D., Ph.D., Director of Laboratories , CLIA [id number] 08/27/2021 5:49 AM CDT Ayush Abreu MD LABORATORY Final Result [facility] [address] [place], [place] , * (ABNORMAL) COMPREHENSIVE METABOLIC PANEL (08/27/2021 5:49 AM CDT) GLUCOSE 85 70 - 99 MG/DL 08/27/2021 6:46 AM CDT [facility] BUN 19(H) 7 - 18 MG/DL 08/27/2021 6:46 AM CDT [facility] CREATININE S/P/B 1.05 0.7 - 1.3 MG/DL 08/27/2021 6:46 AM CDT [facility] SODIUM S/P/B 141 136 - 145 MMOL/L 08/27/2021 6:46 AM CDT [facility] POTASSIUM S/P/B 3.8 3.5 - 5.1 MMOL/L 08/27/2021 6:46 AM CDT [facility] CHLORIDE S/P/B 109(H) 100 - 108 MMOL/L 08/27/2021 6:46 AM CDT [facility] CO2 30.3 21 - 32 MMOL/L 08/27/2021 6:46 AM CDT [facility] CALCIUM S/P/B 8.9 8.5 - 10.1 MG/DL 08/27/2021 6:46 AM CDT [facility] BILIRUBIN TOTAL S/P/B 0.5 0.2 - 1.2 MG/DL 08/27/2021 6:46 AM [facility] Comment: THIS ASSAY IS NOT RECOMMENDED FOR PATIENTS UNDERGOING TREATMENT WITH ELTROMBOPAG DUE TO THE POTENTIAL FOR FALSELY ELEVATED RESULTS. TOTAL PROTEIN S/P/B 6.6 6.4 - 8.2 G/DL 08/27/2021 6:46 AM T [facility] ALBUMIN S/P/B 2.5(L) 3.4 - 5.0 G/DL 08/27/2021 6:46 AM T [facility] [facility] AST 17 15 - 37 U/L 08/27/2021 6:46 AM [facility] ALT 19 16 - 60 U/L 08/27/2021 6:46 AM [facility] ALKALINE PHOSPHATASE S/P/B 93 50 - 136 U/L 08/27/2021 6:46 AM [facility] ANION GAP 1.7(L) 5 - 15 MMOL/L 08/27/2021 6:46 AM [facility] BUN CREATININE RATIO 18.1 6 - 26 08/27/2021 6:46 AM [facility] A/G RATIO 0.6(L) 1.0 - 2.0 RATIO 08/27/2021 6:46 AM [facility] EGFR NON-AFR. AMER. 79(L) >90 ML/MIN/1.7 3 M2 08/27/2021 6:46 AM [facility] EGFR AFR. AMER. >90 >90 ML/MIN/1.7 3 M2 08/27/2021 6:46 AM [facility] Comment: NOTE: eGFR is not calculated for patients <18 years of age. This is an estimated GFR (CKD EPI) and should not be used for calculating drug doses. 08/27/2021 5:49 AM CDT Ayush Abreu MD LABORATORY Final Result [facility] [address] [place] [address], * (ABNORMAL) CBC W/DIFF AUTOMATED (08/27/2021 5:49 AM CDT) WBC 9.7 4.5 - 11.0 x10'3/uL 08/27/2021 6:10 AM CDT [facility] RBC 3.97(L) 4.70 - 6.10 x10'6/uL 08/27/2021 6:10 AM CDT [facility] HGB 12.7(L) 14.0 - 18.0 G/DL 08/27/2021 6:10 AM CDT [facility] HCT 38.3(L) 43.0 - 54.0 % 08/27/2021 6:10 AM CDT [facility] MCV 96.5(H) 80.0 - 94.0 FL 08/27/2021 6:10 AM CDT [facility] MCH 32.0(H) 27.0 - 31.0 PG 08/27/2021 6:10 AM CDT [facility] MCHC 33.2 32.0 - 36.0 G/DL 08/27/2021 6:10 AM CDT [facility] RDW 14.7(H) 11.5 - 14.5 % 08/27/2021 6:10 AM CDT [facility] PLT 191 130 - 400 x10'3/uL 08/27/2021 6:10 AM CDT [facility] MPV 12.1 9.3 - 12.2 FL 08/27/2021 6:10 AM CDT [facility] DIFFERENTIAL TYPE AUTOMATED DIFFERENTIAL 08/27/2021 6:10 AM CDT [facility] NEUTROPHILS % 57.4 % 08/27/2021 6:10 AM CDT [facility] LYMPHOCYTES % 30.7 % 08/27/2021 6:10 AM CDT [facility] MONOCYTES % 7.9 % 08/27/2021 6:10 AM CDT [facility] EOSINOPHILS 3.3 % 08/27/2021 6:10 AM CDT [facility] BASOPHILS 0.5 % 08/27/2021 6:10 AM CDT [facility] IMMATURE GRANS % 0.2 % 08/28/19 6:10 AM CDT [facility] ABS. NEUTROPHILS TOTAL 5.54 1.80 - 7.70 x10'3/uL 08/27/2021 6:10 AM CDT [facility] ABS. LYMPHOCYTES 2.96 1.00 - 4.80 x10'3/uL 08/27/2021 6:10 AM CDT [facility] ABS. MONOCYTES 0.76 0.30 - 0.82 x10'3/uL 08/27/2021 6:10 AM CDT [facility] ABS. EOSINOPHILS 0.32 0.04 - 0.54 x10'3/uL 08/27/2021 6:10 AM CDT [facility] ABS. BASOPHILS 0.05 0.01 - 0.08 x10'3/uL 08/27/2021 6:10 AM CDT [facility] ABS. IMMATURE GRANULOCYTES 0.02 0.00 - 0.49 x10'3/uL 08/27/2021 6:10 AM CDT [facility] 08/27/2021 5:49 AM CDT Ayush Abreu MD LABORATORY Final Result [facility] [address] [place] [address], * CT CHEST WO CON (08/26/2021 11:46 PM CDT) Anatomical Region Laterality Modality Chest Computed Tomogra phy 08/27/2021 1:07 AM CDT Impressions 08/27/2021 1:31 AM CDT IMPRESSION: 1. ??Findings suspect for bronchitis or bronchopneumonia in the left lower lobe 2. ??Chronic appearing underlying findings suggestive of reactive airway disease such as asthma or bronchitis 3. ??No consolidative pneumonia or pleural effusion or pulmonary edema 4. ??Apices of the lungs are clear and the upper ribs intact 5. ??SVC normal caliber, unremarkable 6. ??Bilateral thyroid gland enlargement and each lobe contains ill-defined hypodense nodules. 7. ??Consider further evaluation which can begin with thyroid panel and thyroid ultrasound and/or nuclear medicine thyroid scan and uptake. Referred By: ?? Interpreted By: Lakeshia Singh DO, 08/27/2021 1:07 AM Narrative 08/27/2021 1:31 AM CDT CLINICAL INDICATION: [id number] FOR POSSIBLE MASS LEADING TO SYMPATHETIC DISRUPTION AND PTOSIS OF EYES E: Pt ambulatory to ED complaining of not being able to keep his eyes open for approx 1 week. 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 Pt denies any other stroke like symptoms. 2 TECHNIQUE: CT of the chest is obtained at 2 mm increments without the use of oral or intravenous contrast. ??Images obtained from the thoracic inlet to the upper abdomen. ??Additional coronal and sagittal reconstructions were performed. .Dose lowering technique was used for this study which may include, but is not limited to, dose reduction techniques, automated exposure control, use of iterative ??reconstruction and ALARA (As low As Reasonably Achievable)/Image Gently techniques. COMPARISON: No previous CT chest FINDINGS: Interstitial thickening around area of smooth bronchial wall thickening with traction bronchiectasis in the medial basal segment of left lower lobe; possible interstitial pneumonia or bronchopneumonia.. ??Additionally there is segmental and subsegmental smooth bronchial wall thickening without traction bronchiectasis; this may indicate underlying chronic reactive airway disease such as asthma or bronchitis. ??No endobronchial lesion or mucous plugging. ??No CT findings that would suggest lobar pneumonia. ??There is no consolidation. ??There is no pleural effusion. ??No findings of pulmonary edema. ??There is no noncalcified pulmonary nodule. ??The apices of the lungs are clear. No mediastinal or hilar or axillary lymphadenopathy on this unenhanced study. ??The superior vena cava is normal in caliber into the right atrium. The heart is normal in size. ??No pericardial effusion. ??Scattered coronary artery calcifications. All segments of the thoracic aorta are normal in caliber. ??Conjoined origin brachiocephalic trunk left common carotid artery. ??No calcific or atheromatous disease in the thoracic aorta. Small, 3 cm diameter hiatal hernia with surgical clips which may represent bariatric surgery. ??Included portions of the liver and spleen and adrenal glands and pancreas are unremarkable. ??Hypodense cystic structure in the upper pole of each kidney incompletely included. Bone window imaging: No acute or pathologic abnormality in the thorax with special attention to each upper rib.. Soft tissue findings: Bilateral gynecomastia Bilateral thyroid gland enlargement each containing ill-defined hypodense nodules.. ??The entire thyroid gland is not included. Procedure Note Lakeshia Singh MD - 08/27/2021 CLINICAL INDICATION: [id number] FOR POSSIBLE MASS LEADING TO SYMPATHETIC DISRUPTIONAND PTOSIS OF EYES E: Pt ambulatory to ED complaining of not being able to keep his eyesopen for approx 1 week. Pt went to Eye doctor and they sent him in with dxof 3rd nerve palsy compressive, microvasuclar, pupil involvement. Ptdenies any other stroke like symptoms. 2 TECHNIQUE: CT of the chest is obtained at 2 mm increments without the use of oral orintravenous contrast. Images obtained from the thoracic inlet to theupper abdomen. Additional coronal and sagittal reconstructions wereperformed. .Dose lowering technique was used for this study which may include, but isnot limited to, dose reduction techniques, automated exposure control, useof iterative reconstruction and ALARA (As low As ReasonablyAchievable)/Image Gently techniques. COMPARISON: No previous CT chest FINDINGS: Interstitial thickening around area of smooth bronchial wall thickeningwith traction bronchiectasis in the medial basal segment of left lowerlobe; possible interstitial pneumonia or bronchopneumonia.. Additionallythere is segmental and subsegmental smooth bronchial wall thickeningwithout traction bronchiectasis; this may indicate underlying chronicreactive airway disease such as asthma or bronchitis. No endobronchiallesion or mucous plugging. No CT findings that would suggest lobarpneumonia. There is no consolidation. There is no pleural effusion. Nofindings of pulmonary edema. There is no noncalcified pulmonary nodule.The apices of the lungs are clear. No mediastinal or hilar or axillary lymphadenopathy on this unenhancedstudy. The superior vena cava is normal in caliber into the rightatrium. The heart is normal in size. No pericardial effusion. Scattered coronaryartery calcifications. All segments of the thoracic aorta are normal in caliber. Conjoinedorigin brachiocephalic trunk left common carotid artery. No calcific oratheromatous disease in the thoracic aorta. Small, 3 cm diameter hiatal hernia with surgical clips which may representbariatric surgery. Included portions of the liver and spleen and adrenalglands and pancreas are unremarkable. Hypodense cystic structure in theupper pole of each kidney incompletely included. Bone window imaging: No acute or pathologic abnormality in the thorax with special attention toeach upper rib.. Soft tissue findings: Bilateral gynecomastia Bilateral thyroid gland enlargement each containing ill-defined hypodensenodules.. The entire thyroid gland is not included. IMPRESSION: 1. Findings suspect for bronchitis or bronchopneumonia in the left lowerlobe 2. Chronic appearing underlying findings suggestive of reactive airwaydisease such as asthma or bronchitis 3. No consolidative pneumonia or pleural effusion or pulmonary edema 4. Apices of the lungs are clear and the upper ribs intact 5. SVC normal caliber, unremarkable 6. Bilateral thyroid gland enlargement and each lobe contains ill- definedhypodense nodules. 7. Consider further evaluation which can begin with thyroid panel andthyroid ultrasound and/or nuclear medicine thyroid scan and uptake. Referred By: Interpreted By: Lakeshia Singh DO, 08/27/2021 1:07 AM us Ayush Abreu MD CT Final Result * MRI BRAIN WWO CON (08/26/2021 10:26 PM CDT) Anatomical Region Laterality Modality Head Magnetic Resonan ce 08/26/2021 11:0 3 PM CDT Impressions 08/26/2021 11:36 PM CDT IMPRESSION: 1. ??No evidence of acute infarction or intracranial mass lesion. 2. ??No abnormal enhancement within the brain or meninges. 3. ??Short segment of symmetric cranial nerve III is visualized. 4. ??Single 6 mm rounded foci of attenuation seen only on FLAIR images most commonly indicates small vessel ischemic disease however other etiologies can cause this appearance as above. Referred By: ?? Interpreted By: Lakeshia Singh DO, 08/26/2021 11:03 PM Narrative 08/26/2021 11:36 PM CDT EXAMINATION: MRI BRAIN WITH AND WITHOUT CONTRAST. CLINICAL INDICATION: 55-year-old SENT FROM [facility] WITH CONCERN FOR 3RD NERVE PALSY WITH PUPIL INVOVLEMENT, DIFFICULTY KEEPING EYES OPEN FOR 3 DAYS Pt ambulatory to ED complaining of not being able to keep his eyes open for approx 1 week. 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 Pt denies any other stroke like symptoms TECHNIQUE: Sagittal and axial T1, and axial T2, FLAIR, gradient (T2*), and DWI images with ADC map reconstructions obtained. Additional axial and coronal post contrast T1 images were obtained after administration of ??20ML Dotarem ??intravenously without adverse event. COMPARISON: No previous MRI brain. ??Nonenhanced CT brain and CTA head and neck obtained this evening at 19:30. FINDINGS: There is no evidence of acute infarct or restricted diffusion. ??There is no evidence of abnormal enhancement within the brain or meninges. ??No evidence of abnormal intracranial mass or mass effect or midline shift.There is a single ??small, 6 mm rounded foci of attenuation on the FLAIR images and seen as subtle hyperintensity on the diffusion and ADC map without gradient echo correlate; nonspecific finding with broad differential, most commonly is small foci small vessel ischemic disease however can also be seen with small subacute to recent infarction, small foci of gliosis or focal demyelinating pathology such as MS.. ??Short segment of symmetric cranial nerve III is visualized. ??(best seen on axial image 64 of the 3-D MP rage contrast-enhanced sequence) The ventricles and extra-axial CSF spaces are symmetric and unremarkable. There are no abnormal extra-axial collections. ??No signal abnormality on the gradient echo images.. ??The major intracranial arterial flow voids are grossly patent. The craniocervical junction, sellar content, and pineal region appear unremarkable. Limited imaging of the orbits was grossly intact and symmetric. The included paranasal sinuses and mastoid air cells are clear. . Procedure Note Lakeshia Singh MD - 08/26/2021 EXAMINATION: MRI BRAIN WITH AND WITHOUT CONTRAST. CLINICAL INDICATION: 55-year-old SENT FROM [facility] WITH CONCERN FOR 3RD NERVE PALSY WITHPUPIL INVOVLEMENT, DIFFICULTY KEEPING EYES OPEN FOR 3 DAYS Pt ambulatory to ED complaining of not being able to keep his eyes openfor approx 1 week. Pt went to [facility] doctor and they sent him in with dx of3rd nerve palsy compressive, microvasuclar, pupil involvement. Pt deniesany other stroke like symptoms TECHNIQUE: Sagittal and axial T1, and axial T2, FLAIR, gradient (T2*), and DWI imageswith ADC map reconstructions obtained. Additional axial and coronal postcontrast T1 images were obtained after administration of 20ML Dotaremintravenously without adverse event. COMPARISON: No previous MRI brain. Nonenhanced CT brain and CTA head and neckobtained this evening at 19:30. FINDINGS: There is no evidence of acute infarct or restricted diffusion. There isno evidence of abnormal enhancement within the brain or meninges. Noevidence of abnormal intracranial mass or mass effect or midlineshift.There is a single small, 6 mm rounded foci of attenuation on theFLAIR images and seen as subtle hyperintensity on the diffusion and ADCmap without gradient echo correlate; nonspecific finding with broaddifferential, most commonly is small foci small vessel ischemic diseasehowever can also be seen with small subacute to recent infarction, smallfoci of gliosis or focal demyelinating pathology such as MS.. Shortsegment of symmetric cranial nerve III is visualized. (best seen on axialimage 64 of the 3-D MP rage contrast- enhanced sequence) The ventricles andextra-axial CSF spaces are symmetric and unremarkable. There are noabnormal extra-axial collections. No signal abnormality on the gradientecho images.. The major intracranial arterial flow voids are grosslypatent. The craniocervical junction, sellar content, and pineal regionappear unremarkable. Limited imaging of the orbits was grossly intact and symmetric. The included paranasal sinuses and mastoid air cells are clear. . IMPRESSION: 1. No evidence of acute infarction or intracranial mass lesion. 2. No abnormal enhancement within the brain or meninges. 3. Short segment of symmetric cranial nerve III is visualized. 4. Single 6 mm rounded foci of attenuation seen only on FLAIR images mostcommonly indicates small vessel ischemic disease however other etiologiescan cause this appearance as above. Referred By: Interpreted By: Lakeshia Singh DO, 08/26/2021 11:03 PM Gregory Keith MD MRI Final Re sult * CTA HEAD+NECK (08/26/2021 7:36 PM CDT) Anatomical Region Laterality Modality Head, Neck Computed Tomogra phy 08/26/2021 8:02 PM CDT Impressions 08/26/2021 8:13 PM CDT IMPRESSION: 1. ??Less than 50% stenosis in the proximal right ICA. 2. ??Tortuous internal carotid arteries bilaterally in the neck. 3. ??Probable multinodular goiter. Referred By: ?? Interpreted By: Camilo Beckman MD, 08/26/2021 8:02 PM Narrative 08/26/2021 8:13 PM CDT EXAM: CT angiography of the head and neck TECHNIQUE: Study performed after intravenous administration of [address] dose reduction techniques were utilized. Internal carotid stenosis measured according to NASCET criteria. Additional 3D and/or MIP images were created. INDICATION: 3rd nerve palsy A dose lowering technique was used for this procedure, which may include, but is not limited to, dose reduction technique, automated exposure control, the use of iterative reconstruction, and ALARA (As Low As Reasonably Achievable) / Image Gently techniques. COMPARISON: None. ? FINDINGS: CTA NECK: Aorta and great vessel origins: Normal variation common origin of the brachiocephalic and left common carotid arteries. Right carotid artery: Small calcification at the proximal internal carotid artery. ??Less than 50% stenosis. ??Markedly tortuous mid ICA. Left carotid artery: No stenosis. ??Marked tortuosity of the mid ICA. Vertebral arteries: Normal. ?? CTA HEAD: Small right posterior communicating artery is normal variation. ??No intracranial stenosis or occlusion. SOFT TISSUES: Diffuse enlargement and heterogeneous enhancement of the thyroid. ??Probable multinodular goiter which could be followed up with nonemergent ultrasound. ??Mild ill-defined densities in the upper lobes, left greater than right. ??Potential edema or infection. ??Diffuse degenerative disc disease in the cervical spine. Procedure Note Camilo Beckman MD - 08/26/2021 EXAM: CT angiography of the head and neck TECHNIQUE: Study performed after intravenous administration of [address] dose reduction techniques were utilized. Internal carotid stenosis measured according to NASCET criteria. Additional 3D and/or MIP images were created. INDICATION: 3rd nerve palsy A dose lowering technique was used for this procedure, which may include,but is not limited to, dose reduction technique, automated exposurecontrol, the use of iterative reconstruction, and ALARA (As Low AsReasonably Achievable) / Image Gently techniques. COMPARISON: None. FINDINGS: CTA NECK: Aorta and great vessel origins: Normal variation common origin of thebrachiocephalic and left common carotid arteries. Right carotid artery: Small calcification at the proximal internal carotidartery. Less than 50% stenosis. Markedly tortuous mid ICA. Left carotid artery: No stenosis. Marked tortuosity of the mid ICA. Vertebral arteries: Normal. CTA HEAD: Small right posterior communicating artery is normal variation. Nointracranial stenosis or occlusion. SOFT TISSUES: Diffuse enlargement and heterogeneous enhancement of the thyroid.Probable multinodular goiter which could be followed up with nonemergentultrasound. Mild ill-defined densities in the upper lobes, left greaterthan right. Potential edema or infection. Diffuse degenerative discdisease in the cervical spine. IMPRESSION: 1. Less than 50% stenosis in the proximal right ICA. 2. Tortuous internal carotid arteries bilaterally in the neck. 3. Probable multinodular goiter. Referred By: Interpreted By: Camilo Beckman MD, 08/26/2021 8:02 PM Lori Breen Jarrodnelda TRAINING DESIGNER CT Final Resul t * CT HEAD WO CON (08/26/2021 7:36 PM CDT) Anatomical Region Laterality Modality Head Computed Tomogra phy 08/26/2021 7:38 PM CDT Impressions 08/26/2021 7:43 PM CDT IMPRESSION: No acute findings. A dose lowering technique was used for this procedure, which may include, but is not limited to, dose reduction technique, automated exposure control, iterative reconstruction, ALARA (As Low As Reasonably Achievable), or Image Gently techniques. Referred By: ?? Interpreted By: Camilo Beckman MD, 08/26/2021 7:38 PM Narrative 08/26/2021 7:43 PM CDT EXAM: CT HEAD WO CON DATE: 08/26/2021 COMPARISON: None INDICATION: 3rd nerve palsy. TECHNIQUE: Noncontrast imaging FINDINGS: No hemorrhage, mass effect, or extra-axial fluid collection. ??Normal ventricular size. ??No evidence of an acute stroke. ??Mild flattening of the pituitary gland by CSF can be associated with empty sella syndrome. ??Normal appearance of the eyes and orbits. ??Conjugate gaze. ??No acute bone findings. Procedure Note Camilo Beckman MD - 08/26/2021 EXAM: CT HEAD WO CON DATE: 08/26/2021 COMPARISON: None INDICATION: 3rd nerve palsy. TECHNIQUE: Noncontrast imaging FINDINGS: No hemorrhage, mass effect, or extra-axial fluid collection.Normal ventricular size. No evidence of an acute stroke. Mild flatteningof the pituitary gland by CSF can be associated with empty sella syndrome.Normal appearance of the eyes and orbits. Conjugate gaze. No acute bonefindings. IMPRESSION: No acute findings. A dose lowering technique was used for this procedure, which may include,but is not limited to, dose reduction technique, automated exposurecontrol, iterative reconstruction, ALARA (As Low As ReasonablyAchievable), or Image Gently techniques. Referred By: Interpreted By: Camilo Beckman MD, 08/26/2021 7:38 PM Lori Garnica TRAINING DESIGNER CT Final Resul t * XR CHEST PORTABLE (08/26/2021 6:53 PM CDT) Anatomical Region Laterality Modality Chest Radiographic Maribel ging 08/26/2021 7:16 PM CDT Impressions 08/26/2021 7:18 PM CDT =====IMPRESSION:===== No definite focal infiltrates. Incomplete visualization of the right lower lateral rib cage and the chest wall as described. Would consider repeat chest radiograph. Ordered By: LORI GARNICA Interpreted By: Anjum Rivera MD, 08/26/2021 7:16 PM Narrative 08/26/2021 7:18 PM CDT Examination: Chest x-ray 1 view Exam date/time: 08/26/2021 6:26 PM Reason For Exam: ??chest pressure ? Comparison: Old studies are from April 2015 Technique: Upright AP view of the chest demonstrated. Findings: ??Heart size is unchanged and within normal limits. Unremarkable mediastinum. Small atelectatic changes in the left lung base. In the right lung no definite focal infiltrates. There is no pneumothorax. The right lateral costophrenic angle is not completely included including the right lower lateral rib cage. There is a smoothly marginated opacity superimposed to the right lower lateral chest wall which may be a composite shadow due to superimposition of adjacent normal structures. Please correlate clinically and if indicated consider repeat chest imaging including coverage of the right lower chest, right lower rib cage. Procedure Note Anjum Rivera MD - 08/26/2021 Examination: Chest x-ray 1 view Exam date/time: 08/26/2021 6:26 PM Reason For Exam: chest pressure Comparison: Old studies are from April 2015 Technique: Upright AP view of the chest demonstrated. Findings: Heart size is unchanged and within normal limits. Unremarkablemediastinum. Small atelectatic changes in the left lung base. In the rightlung no definite focal infiltrates. There is no pneumothorax. The rightlateral costophrenic angle is not completely included including the rightlower lateral rib cage. There is a smoothly marginated opacitysuperimposed to the right lower lateral chest wall which may be acomposite shadow due to superimposition of adjacent normal structures.Please correlate clinically and if indicated consider repeat chest imagingincluding coverage of the right lower chest, right lower rib cage. =====IMPRESSION:===== No definite focal infiltrates. Incomplete visualization of the right lower lateral rib cage and the chestwall as described. Would consider repeat chest radiograph. Ordered By: LORI GARNICA Interpreted By: Anjum Rivera MD, 08/26/2021 7:16 PM us Lori Garnica TRAINING DESIGNER GENERAL [facility] Final Resul t * (ABNORMAL) SED RATE, ERYTHROCYTE (ESR) (08/26/2021 6:37 PM CDT) ESR 38(H) <20 MM/HR 08/26/2021 10:43 PM CDT [facility] Comment:Testing performed on Alf iSABDELRAHMAN. 08/26/2021 6:37 PM CDT us Ayush Abreu MD LABORATORY Final Result Performing Organization Address City/[facility]/ZIP Co de Phone Number [facility] [address] [place] [address], [place] [phone] * (ABNORMAL) C-REACTIVE PROTEIN (08/26/2021 6:37 PM CDT) C-REACTIVE PROTEIN 1.06(H) <0.29 mg/dL 08/26/2021 10:56 PM CDT [facility] 08/26/2021 6:37 PM CDT us Ayush Abreu MD LABORATORY Final Result Performing Organization Address [facility]/ZIP Co de Phone Number [facility] [address] [place] [address], [place] [phone] * LIPID PANEL (08/26/2021 6:37 PM CDT) CHOLESTEROL 103 <200 MG/DL 08/26/2021 11:02 PM CDT [facility] TRIGLYCERIDES 40 <150 MG/DL 08/26/2021 11:02 PM CDT [facility] HDL 50 >40.0 MG/DL 08/26/2021 11:02 PM CDT [facility] LDL (CALCULATED) 45 <100 MG/DL 08/27/19 11:02 PM CDT [facility] LAB NON HDL CHOLESTEROL 53 <130 MG/DL 08/26 11:02 PM CDT [facility] CHOL/HDL RATIO 2.1 0.0 - 4.5 08/26/2021 11:02 PM CDT [facility] VLDL CALCULATION 8 5 - 55 MG/DL 08/26/2021 11:02 PM CDT [facility] LIPID INTERPRETATION 08/26/2021 11:02 PM CDT [facility] Comment: NIH CONCENSUS REPORT RECOMMENDATIONS: ?ADULT ?CHILD ??LOW RISK: ?CHOLESTEROL ? <200 ? <170 ?TRIGLYCERIDE ?<150 ?--- ?HDL ? >=60 ?--- ?LDL ? <100 ? <110 ??BORDERLINE: ?CHOLESTEROL ? 200-239 ?? 170-199 ?TRIGLYCERIDE ?150-199 ? --- ?HDL ?40-59 ?--- ?LDL ? 100-159 ?? 110-129 ??HIGH RISK: ?CHOLESTEROL ? >=240 ?>=200 ?TRIGLYCERIDE ?>=200 ? --- ?HDL ?<40 ?--- ?LDL ? >=160 ?>=130 08/26/2021 6:37 PM CDT us Ayush Abreu MD LABORATORY Final Result Performing Organization Address [facility] Co de Phone Number [facility] [address] [place] [address], [place] [phone] * FOLIC ACID SERUM (08/26/2021 6:37 PM CDT) FOLATE 8.0 3.1 - 17.5 NG/ML 08/26/2021 11:12 PM CDT [facility] 08/26/2021 6:37 PM CDT us Ayush Abreu MD LABORATORY Final Result Performing Organization Address [facility] Co de Phone Number [facility] [address] [place] [address], [place] [phone] * MAGNESIUM (08/26/2021 6:37 PM CDT) MAGNESIUM 1.9 1.8 - 2.4 MG/DL 08/26/2021 11:02 PM CDT [facility] 08/26/2021 6:37 PM CDT us Ayush Abreu MD LABORATORY Final Result Performing Organization Address City/[facility] Co de Phone Number [facility] [address] [place] [address], [place] [phone] * (ABNORMAL) VITAMIN B-12 (08/26/2021 6:33 PM CDT) VITAMIN B12 S/P/B 1,506(H) 254 - 1,320 PG/ML 08/26/2021 9:22 PM CDT [facility] 08/26/2021 6:33 PM CDT us Gregory Keith MD LABORATORY Final Re sult Performing Organization Address City/[facility]/ZIP Co de Phone Number [facility] [address] [place] [address], [place] [phone] * TSH W/REFLEX (08/26/2021 6:33 PM CDT) TSH 1.840 0.358 - 3.74 uIU/ML 08/26/2021 9:05 PM CDT [facility] Comment: HIGH DOSES OF BIOTIN MAY INTERFERE WITH THIS TEST RESULT. CORRELATION TO CLINICAL HISTORY AND PRESENTATION RECOMMENDED. FREE T4 NOT INDICATED 08/26/2021 6:33 PM CDT us Gregory Keith MD LABORATORY Final Re sult Performing Organization Address [facility]/ZIP Co de Phone Number [facility] [address] [place] [address], [place] [phone] * CK (CPK) (08/26/2021 6:33 PM CDT) CPK 114 35 - 232 U/L 08/26/2021 9:05 PM CDT [facility] 08/26/2021 6:33 PM CDT us Gregory Keith MD LABORATORY Final Re sult [facility] [address] [place] [address], [place] [phone] * (ABNORMAL) URINALYSIS (08/26/2021 6:33 PM CDT) SPECIMEN TYPE URINE CLEAN CATCH 08/26/2021 6:33 PM CDT [facility] COLOR (U) LIGHT YELLOW 08/26/2021 6:49 PM CDT [facility] TRANSPARENCY CLEAR 08/26/2021 6:49 PM CDT [facility] SPECIFIC GRAVITY (U) 1.015 1.001 - 1.030 08/26/2021 6:49 PM CDT [facility] U PH 5.5 5.0 - 9.0 08/26/2021 6:49 PM CDT [facility] LEUKOCYTES (U) NEGATIVE NEGATIVE 08/26/2021 6:49 PM CDT [facility] NITRITES NEGATIVE NEGATIVE 08/26/2021 6:49 PM CDT [facility] PROTEIN (U) 70(H) <30 MG/DL 08/26/2021 6:49 PM CDT [facility] URINE GLUCOSE NORMAL NORMAL MG/DL 08/26/2021 6:49 PM CDT [facility] KETONES MG/DL (U) NEGATIVE NEGATIVE MG/DL 08/26/2021 6:49 PM CDT [facility] UROBILINOGEN NORMAL NORMAL MG/DL 08/26/2021 6:49 PM CDT [facility] BILIRUBIN (U) NEGATIVE NEGATIVE MG/DL 08/26/2021 6:49 PM CDT [facility] BLOOD (U) NEGATIVE NEGATIVE 08/26/2021 6:49 PM CDT [facility] CULTURE & SENSITIVITY INDICATED? CULTURE IS NOT INDICATED 08/26/2021 6:49 PM CDT [facility] MUCUS RARE /LPF 08/26/2021 6:49 PM CDT [facility] WBC/HPF 2 <6 /HPF 08/26/2021 6:49 PM CDT [facility] RBC/HPF 1 <6 /HPF 08/26/2021 6:49 PM CDT [facility] SQUAMOUS EPITHELIALS RARE /HPF 08/26/2021 6:49 PM CDT [facility] URINE SPECIMEN OBTAINED BY CLEAN CATCH PROCEDURE / Unknown 08/26/2021 6:33 PM CDT Lori Garnica [facility] URINE ORDERABLES Final Resu lt Performing Organization Address City/[facility]/ZIP Co de Phone Number [facility] [address] [place] [address], [place] [phone] * TROPONIN, QUANT (08/26/2021 6:33 PM CDT) Pathologist [facility] TROPONIN I HIGH SENSITIVITY 15 <79 ng/L 08/26/2021 7:15 PM CDT [facility] Comment: HIGH DOSES OF BIOTIN, TROPONIN-SPECIFIC AUTOANTIBODIES, AND ANTIBODY THERAPY CONTAINING HAMA MAY INTERFERE WITH THIS TEST RESULT. CORRELATION TO CLINICAL HISTORY AND PRESENTATION RECOMMENDED. 08/26/2021 6:33 PM CDT Lori Garnica [facility] LABORATORY Final Resul t Performing Organization Address City/[facility]/ZIP Co de Phone Number [facility] [address] [place] [address], [place] [phone] * (ABNORMAL) COMPREHENSIVE METABOLIC PANEL (08/26/2021 6:33 PM CDT) GLUCOSE 82 70 - 99 MG/DL 08/26/2021 7:15 PM CDT [facility] BUN 23(H) 7 - 18 MG/DL 08/26/2021 7:15 PM CDT [facility] CREATININE S/P/B 1.28 0.7 - 1.3 MG/DL 08/26/2021 7:15 PM CDT [facility] SODIUM S/P/B 139 136 - 145 MMOL/L 08/26/2021 7:15 PM CDT [facility] POTASSIUM S/P/B 3.8 3.5 - 5.1 MMOL/L 08/26/2021 7:15 PM CDT [facility] CHLORIDE S/P/B 104 100 - 108 MMOL/L 08/26/2021 7:15 PM CDT [facility] CO2 31.7 21 - 32 MMOL/L 08/26/2021 7:15 PM CDT [facility] CALCIUM S/P/B 8.7 8.5 - 10.1 MG/DL 08/26/2021 7:15 PM CDT [facility] BILIRUBIN TOTAL S/P/B 0.5 0.2 - 1.2 MG/DL 08/26/2021 7:15 PM CDT [facility] Comment: THIS ASSAY IS NOT RECOMMENDED FOR PATIENTS UNDERGOING TREATMENT WITH ELTROMBOPAG DUE TO THE POTENTIAL FOR FALSELY ELEVATED RESULTS. TOTAL PROTEIN S/P/B 8.1 6.4 - 8.2 G/DL 08/26/2021 7:15 PM CDT [facility] ALBUMIN S/P/B 2.9(L) 3.4 - 5.0 G/DL 08/26/2021 7:15 PM CDT [facility] AST 23 15 - 37 U/L 08/26/2021 7:15 PM CDT [facility] ALT 26 16 - 60 U/L 08/26/2021 7:15 PM CDT [facility] ALKALINE PHOSPHATASE S/P/B 115 50 - 136 U/L 08/26/2021 7:15 PM CDT [facility] ANION GAP 3.3(L) 5 - 15 MMOL/L 08/26/2021 7:15 PM CDT [facility] BUN CREATININE RATIO 18.0 6 - 26 08/26/2021 7:15 PM CDT [facility] A/G RATIO 0.6(L) 1.0 - 2.0 RATIO 08/26/2021 7:15 PM CDT [facility] EGFR NON-AFR. AMER. 62(L) >90 ML/MIN/1.7 3 M2 08/26/2021 7:15 PM CDT [facility] EGFR AFR. AMER. 72(L) >90 ML/MIN/1.7 3 M2 08/26/2021 7:15 PM CDT [facility] Comment: NOTE: eGFR is not calculated for patients <18 years of age. This is an estimated GFR (CKD EPI) and should not be used for calculating drug doses. 08/26/2021 6:33 PM CDT Lori Garnica [facility] LABORATORY Final Resul t [facility] [address] [place], [place] [address], [place] [phone] * PARTIAL THROMBOPLASTIN TIME,PTT (08/26/2021 6:33 PM CDT) PTT 30.0 25.1 - 36.5 SEC 08/26/2021 7:10 PM CDT [facility] 08/26/2021 6:33 PM CDT Lori Garnica [facility] LABORATORY Final Resul t [facility] [address] [place] [address], [place] [phone] * (ABNORMAL) CBC W/DIFF AUTOMATED (08/26/2021 6:33 PM CDT) [facility] WBC 12.5(H) 4.5 - 11.0 x10'3/uL 08/26/2021 6:49 PM CDT [facility] RBC 4.52(L) 4.70 - 6.10 x10'6/uL 08/26/2021 6:49 PM CDT [facility] HGB 14.3 14.0 - 18.0 G/DL 08/26/2021 6:49 PM CDT [facility] HCT 44.8 43.0 - 54.0 % 08/26/2021 6:49 PM CDT [facility] MCV 99.1(H) 80.0 - 94.0 FL 08/26/2021 6:49 PM CDT [facility] MCH 31.6(H) 27.0 - 31.0 PG 08/26/2021 6:49 PM CDT [facility] MCHC 31.9(L) 32.0 - 36.0 G/DL 08/26/2021 6:49 PM CDT [facility] RDW 14.8(H) 11.5 - 14.5 % 08/26/2021 6:49 PM CDT [facility] PLT 235 130 - 400 x10'3/uL 08/26/2021 6:49 PM CDT [facility] MPV 12.3(H) 9.3 - 12.2 FL 08/26/2021 6:49 PM CDT [facility] DIFFERENTIAL TYPE AUTOMATED DIFFERENTIAL 08/26/2021 6:49 PM CDT [facility] NEUTROPHILS % 59.2 % 08/26/2021 6:49 PM CDT [facility] LYMPHOCYTES % 29.9 % 08/26/2021 6:49 PM CDT [facility] MONOCYTES % 7.6 % 08/26/2021 6:49 PM CDT [facility] EOSINOPHILS 2.5 % 08/26/2021 6:49 PM CDT [facility] BASOPHILS 0.6 % 08/26/2021 6:49 PM CDT [facility] IMMATURE GRANS % 0.2 % 08/27/19 6:49 PM CDT [facility] ABS. NEUTROPHILS TOTAL 7.40 1.80 - 7.70 x10'3/uL 08/26/2021 6:49 PM CDT [facility] ABS. LYMPHOCYTES 3.73 1.00 - 4.80 x10'3/uL 08/26/2021 6:49 PM CDT [facility] ABS. MONOCYTES 0.95(H) 0.30 - 0.82 x10'3/uL 08/26/2021 6:49 PM CDT [facility] ABS. EOSINOPHILS 0.31 0.04 - 0.54 x10'3/uL 08/26/2021 6:49 PM CDT [facility] ABS. BASOPHILS 0.07 0.01 - 0.08 x10'3/uL 08/26/2021 6:49 PM CDT [facility] ABS. IMMATURE GRANULOCYTES 0.03 0.00 - 0.49 x10'3/uL 08/26/2021 6:49 PM CDT [facility] 08/26/2021 6:33 PM CDT us Lori Garnica TRAINING DESIGNER LABORATORY Final Resul t [facility] [address] [place] [address], * PROTIME/INR, VENOUS (08/26/2021 6:33 PM CDT) PROTIME 12.8 10.2 - 12.9 SEC 08/26/2021 7:10 PM CDT [facility] INR 1.1 08/26/2021 7:10 PM CDT [facility] Comment: Recommended INR Therapeutic Goals: ??2.0-3.0 Routine Therapy ??2.5-3.5 Mechanical Prosthetic Valves (High Risk) 08/26/2021 6:33 PM CDT Lori Garnica TRAINING DESIGNER LABORATORY Final Resul t [address] [address], * ECG 12 lead (08/26/2021 6:30 PM CDT) 08/26/2021 6:30 PM CDT Narrative [facility] - 08/27/2021 9:54 PM CDT ?[place] [place] ? [address] [place] ? Test Date: ?2021-08-26 Pat Name: ? SANDY CARR ? Department: ?? 41 ? Room: ? EXAM21 Gender: ? Male ? 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 Requested By: LORI GARNICA Order Number: [id number] ? Reading MD: ?? Johnny Ochieng ? Measurements Intervals ?[place] ? Rate: ? 65 ? P: ?12 VT: ? 154 ?QRS: ?31 QRSD: ? 111 ?T: ?32 QT: ? 395 ? QTc: ?413 ? Interpretive Statements SINUS RHYTHM LEFT ATRIAL ENLARGEMENT ??[-0.15mV P-WAVE IN V1/V2] MODERATE INTRAVENTRICULAR CONDUCTION DELAY ??[110+ ms QRS DURATION] Compared to ECG 04/27/2015 11:07:29 Intraventricular conduction delay now present T-wave abnormality no longer present Procedure Note Johnny Fitzpatrick MD - 08/27/[address] [facility] 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, third or oculomotor nerve palsy, partial documented in this encounter Administered Medications Inactive Administered Medications - up to 3 most recent administrations Medication Order MAR Action Action Date Dose Rate Site allopurinol (ZYLOPRIM) tablet 200 mg 200 mg, Oral, 2 times daily, First dose on Sushila 08/27/21 at 0900, Until Discontinued Given 08/27/2021 11:12 AM CDT 200 mg calcium carbonate-vitamin D (OS-FRANCISCO + D) 500 mg-5 mcg tablet 1 tablet 1 tablet, Oral, Daily, First dose on Tue08/27/21 at 0900, Until Discontinued Given 08/27/2021 8:15 AM CDT 1 tablet FLUoxetine (PROzac) capsule 20 mg 20 mg, Oral, Every morning, First dose on Tue08/27/21 at 0700, Until Discontinued Given 08/27/2021 8:15 AM CDT 20 mg gabapentin (NEURONTIN) capsule 600 mg 600 mg, Oral, 3 times daily, First dose on Tue08/27/21 at 0900, Until Discontinued Given 08/27/2021 8:15 AM CDT 600 mg gadoterate meglumine (DOTAREM) 10 MMOL/20ML injection 20 mL 20 mL, Intravenous, IMG once as needed, Contrast, 1 dose, Starting on Tue08/26/21 at 2218, Until Tue08/26/21 at 2218 Given 08/26/2021 10:18 PM CDT 20 mLs Right Arm iopamidol (ISOVUE-370) 76 % injection 80 mL 80 mL, Intravenous, IMG once as needed, Contrast, 1 dose, Starting on Tue08/26/21 at 1936, Until Tue08/26/21 at 1936 Given 08/26/2021 7:36 PM CDT 80 mLs Right Arm thiamine (B-1) injection 100 mg 100 mg, Intravenous, Daily, First dose on Tue08/27/21 at 0900, Until Discontinued, IF diluting medication, dilute with normal saline to a volume of 10 mL. Administer over 5 minutes. Given 08/27/2021 11:13 AM CDT 100 mg vitamin B-12 (CYANOCOBALAMIN) tablet 500 mcg 500 mcg, Oral, Daily, First dose on Tue08/27/21 at 0900, Until Discontinued Given 08/27/2021 8:15 AM CDT 500 mcg documented in this encounter Active and Recently Administered Medications Times are shown in CDT. Scheduled Medication Order 08/25/2021 08/26/2021 08/27/2021 allopurinol (ZYLOPRIM) tablet 200 mg 200 mg, Oral, 2 times daily, First dose on Tue08/27/21 at 0900, Until Discontinued 1112 (Given - Provid er: Rambo Benitez RN) aspirin tablet 325 mg 325 mg, Oral, Once, 1 dose, On Tue08/27/21 at 0145 0147 (Not Given - Pr ovider: Aby White RN - Reason: Patient/family declined) calcium carbonate-vitamin D (OS-FRANCISCO + D) 500 mg-5 mcg tablet 1 tablet 1 tablet, Oral, Daily, First dose on Tue08/27/21 at 0900, Until Discontinued 0815 (Given - Provid er: Rambo Benitez RN) FLUoxetine (PROzac) capsule 20 mg 20 mg, Oral, Every morning, First dose on Tue08/27/21 at 0700, Until Discontinued 08 (Given - Provid er: Rambo Benitez RN) gabapentin (NEURONTIN) capsule 600 mg 600 mg, Oral, 3 times daily, First dose on Sushila 08/27/21 at 0900, Until Discontinued 08 (Given - Provid er: Rambo Benitez RN)1600 (Canceled Entry - Provider: Automatic Discharge Provider - Comment: Automatically canceled at discontinue of medication order) thiamine (B-1) injection 100 mg 100 mg, Intravenous, Daily, First dose on Sushila 08/27/21 at 0900, Until Discontinued, IF diluting medication, dilute with normal saline to a volume of 10 mL. Administer over 5 minutes. 1113 (Given - Provid er: Rambo Benitez RN) vitamin B-12 (CYANOCOBALAMIN) tablet 500 mcg 500 mcg, Oral, Daily, First dose on Tue08/27/21 at 0900, Until Discontinued 08 (Given - Provid er: Rambo Benitez RN) PRN Medication Order 08/25/2021 08/26/2021 08/27/2021 furosemide (LASIX) tablet 20 mg 20 mg, Oral, Daily as needed, swelling, Starting on Tue08/26/21 at 2139, Until Tue08/27/21 at 1828 gadoterate meglumine (DOTAREM) 10 MMOL/20ML injection 20 mL (COMPLETED) 20 mL, Intravenous, IMG once as needed, Contrast, 1 dose, Starting on Tue08/26/21 at 2218, Until Tue08/26/21 at 2218 2218 (Given - Provider: Ranjana Baker, RTR) iopamidol (ISOVUE-370) 76 % injection 80 mL (COMPLETED) 80 mL, Intravenous, IMG once as needed, Contrast, 1 dose, Starting on Tue08/26/21 at 1936, Until Tue08/26/21 at 1936 1936 (Given - Provider: Carmelo Mon, RTR) documented in this encounter Care Teams Tool Smith Relationship Specialty Start Date End Date Cristofer Cruz PA-C [address] [place] [phone] PCP - General PHYSICIAN [employer] 08/26/21 Neurology, [address] [address] NEUROLOGY 08/27/21 09/26/22 documented as of this encounter
--- OUTSIDE RECORDS SUMMARY | 2024-05-22 05:48 | XMS_ITS | Encounter Summary ---
Author Organization [facility] Address [address] [place] [address]. [place] [address] [place] [address] Care Team Providers Care Right Of Way Agent Name Role Phone Rossy Conn Conversion Primary Care Provider Unavailable Encounter Details Date Type Department Care Team (Late st Contact Info) Description 04/26/2015 Abstract [facility] [place] [address] Carmen San MD [address] [place] [address] Blanquita Dimas MD Social History Tobacco Use Types Packs/Day Years [...] Priority Date/Time Associated Diagnosis Comments COMPREHENSIVE METABOLIC PNL W/LIVER,RENAL Routine 04/29/2015 5:24 AM COMMERCIAL LOAN CLOSER LIPID PANEL Routine 04/29/2015 5:24 AM COMMERCIAL LOAN CLOSER CBC W/DIFF AUTOMATED Routine 04/29/2015 5:24 AM COMMERCIAL LOAN CLOSER MAGNESIUM Routine 04/29/2015 5:24 AM COMMERCIAL LOAN CLOSER BASIC METABOLIC PANEL Routine 04/28/2015 5:43 AM COMMERCIAL LOAN CLOSER CBC W/DIFF AUTOMATED Routine 04/28/2015 5:43 AM COMMERCIAL LOAN CLOSER MAGNESIUM Routine 04/28/2015 5:43 AM COMMERCIAL LOAN CLOSER VITAMIN B12 / FOLATE Routine 04/27/2015 1:45 PM COMMERCIAL LOAN CLOSER IRON SAT PANEL (IRON,IBC,%SAT) Routine 04/27/2015 1:45 PM COMMERCIAL LOAN CLOSER BNP TIMED 04/27/2015 1:45 PM COMMERCIAL LOAN CLOSER COMPREHENSIVE METABOLIC PANEL STAT 04/27/2015 1:45 PM COMMERCIAL LOAN CLOSER BLOOD GAS, ARTERIAL, W/LACTATE Routine 04/27/2015 11:22 AM COMMERCIAL LOAN CLOSER URINALYSIS WI REFLEX TO CULTURE Routine 04/27/2015 9:10 AM COMMERCIAL LOAN CLOSER BASIC METABOLIC PANEL Routine 04/27/2015 5:23 AM COMMERCIAL LOAN CLOSER CBC W/DIFF AUTOMATED Routine 04/27/2015 5:23 AM COMMERCIAL LOAN CLOSER MAGNESIUM Routine 04/27/2015 5:23 AM COMMERCIAL LOAN CLOSER TROPONIN, QUANT TIMED 04/26/2015 10:37 PM COMMERCIAL LOAN CLOSER COMPREHENSIVE METABOLIC PANEL STAT 04/26/2015 3:01 PM COMMERCIAL LOAN CLOSER CBC W/DIFF AUTOMATED STAT 04/26/2015 3:01 PM COMMERCIAL LOAN CLOSER AMYLASE STAT 04/26/2015 3:01 PM COMMERCIAL LOAN CLOSER LIPASE STAT 04/26/2015 3:01 PM COMMERCIAL LOAN CLOSER documented in this encounter Results * MAGNESIUM (04/29/2015 5:24 AM COMMERCIAL LOAN CLOSER) MAGNESIUM 2.1 1.70 - 2.55 mg/dL 04/29/2015 6:14 AM COMMERCIAL LOAN CLOSER [facility] SERUM OR PLASMA SPECIMEN / Unknown 04/29/2015 5:24 AM COMMERCIAL LOAN CLOSER 04/29/2015 5:27 AM COMMERCIAL LOAN CLOSER us Generic Conversion Md CONN LABORATORY Final R esult [facility] [address] [place] [address], * (ABNORMAL) LIPID PANEL (04/29/2015 5:24 AM COMMERCIAL LOAN CLOSER) LIPID INTERPRETATION 04/29/2015 6:14 AM COMMERCIAL LOAN CLOSER [facility] Comment: [facility] CONCENS[facility] REPORT RECOMMENDATIONS: ?ADULT ?CHILD ??LOW RISK: ?CHOLESTEROL ? <200 ? <170 ?TRIGLYCERIDE ?<150 ?--- ?HDL ? >=60 ?--- ?LDL ? <100 ? <110 ??BORDERLINE: ?CHOLESTEROL ? 200-239 ?? 170-199 ?TRIGLYCERIDE ?150-199 ? --- ?HDL ?40-59 ?--- ?LDL ? 100-159 ?? 110-129 ??HIGH RISK: ?CHOLESTEROL ? >=240 ?>=200 ?TRIGLYCERIDE ?>=200 ? --- ?HDL ?<40 ?--- ?LDL ? >=160 ?>=130 CHOL/HDL RATIO 4.9(H) 0.0 - 4.5 04/29/2015 6:14 AM [facility] CHOLESTEROL 117 <200 mg/dL 04/29/2015 6:14 AM [facility] Comment: NOTE: Acetaminophen, N Acetyl p benzoquinone imine (NAPQI), N acetylcysteine (NAC), Metamizole, 4 Aminoantipyrine (4 AAP) and 4 Methylamino antipyrine (4 MAP) at high concentrations can cause falsely low results on Lactate, Uric Acid, Cholesterol, Triglyceride, HDL, and Direct LDL. HDL 24(L) >59 mg/dL 04/29/2015 6:14 AM [facility] DIRECT LDL 78 <100 mg/dL 04/29/2015 6:14 AM [facility] NON HDL CHOLESTEROL 93 <130 mg/dL 04/29/2015 6:14 AM [facility] Comment: NOTE: WHEN THE TRIGLYCERIDES ARE >200 mg/dL, NON HDL C IS A SECONDARY TARGET OF THERAPY, WITH A GOAL 30 mg/dL HIGHER THAN THE IDENTIFIED LDL C GOAL. TRIGLYCERIDES 76 <150 mg/dL 04/29/2015 6:14 AM [facility] VLDL CALCULATION 15 5 - 55 mg/dL 04/29/2015 6:14 AM [facility] 04/29/2015 5:24 AM COMMERCIAL LOAN CLOSER 04/29/2015 5:27 AM COMMERCIAL LOAN CLOSER us Generic Conversion Md CONN LABORATORY Final R esult [facility] [address] [place] [address], [place] [phone] * (ABNORMAL) COMPREHENSIVE METABOLIC PNL W/LIVER,RENAL (04/29/2015 5:24 AM COMMERCIAL LOAN CLOSER) GLUCOSE 96 70 - 99 mg/dL 04/29/2015 6:14 AM [facility] BUN 7(L) 8 - 23 mg/dL 04/29/2015 6:14 AM [facility] CREATININE S/P/B 0.90 0.70 - 1.20 mg/dL 04/29/2015 6:14 AM [facility] SODIUM S/P/B 138 136 - 145 mmol/L 04/29/2015 6:14 AM [facility] POTASSIUM S/P/B 4.2 3.5 - 5.1 mmol/L 04/29/2015 6:14 AM [facility] CHLORIDE S/P/B 101 98 - 107 mmol/L 04/29/2015 6:14 AM [facility] CO2 28 22 - 29 mmol/L 04/29/2015 6:14 AM [facility] BILIRUBIN TOTAL S/P/B 0.2 0.2 - 1.2 mg/dL 04/29/2015 6:14 AM [facility] CALCIUM S/P/B 8.4(L) 8.6 - 10.2 mg/dL 04/29/2015 6:14 AM [facility] ALKALINE PHOSPHATASE S/P/B 42 40 - 129 IU/L 04/29/2015 6:14 AM [facility] AST 11 0 - 40 IU/L 04/29/2015 6:14 AM [facility] TOTAL PROTEIN S/P/B 6.4 6.4 - 8.3 g/dL 04/29/2015 6:14 AM [facility] ALBUMIN S/P/B 2.5(L) 3.5 - 5.2 g/dL 04/29/2015 6:14 AM [facility] ALT 8 0 - 41 IU/L 04/29/2015 6:14 AM [facility] BILIRUBIN DIRECT S/P/B <0.20 0.0 - 0.3 mg/dL 04/29/2015 6:14 AM [facility] PHOSPHORUS 3.0 2.7 - 4.5 mg/dL 04/29/2015 6:14 AM [facility] BILIRUBIN INDIRECT S/P/B NOT CALCULATED 0.0 - 0.9 mg/dL 04/29/2015 6:14 AM [facility] GLOBULIN 3.9(H) 2.3 - 3.6 g/dL 04/29/2015 6:14 AM [facility] A/G RATIO 0.6(L) 1.0 - 2.0 04/29/2015 6:14 AM [facility] ANION GAP 13 8 - 20 04/29/2015 6:14 AM [facility] EGFR NON-AFR. AMER. >60 >60 mL/min/1. 73m'2 04/29/2015 6:14 AM [facility] EGFR AFR. AMER. >60 >60 mL/min/1. 73m'2 04/29/2015 6:14 AM [facility] Comment: NOTE: eGFR is not calculated for patients <18 years of age. This is an estimated GFR (CKD EPI) and should not be used for calculating drug doses. 04/29/2015 5:24 AM COMMERCIAL LOAN CLOSER 04/29/2015 5:27 AM COMMERCIAL LOAN CLOSER us Generic Conversion Md CONN LABORATORY Final R esult [facility] [address] [place] [address], [place] [phone] * (ABNORMAL) CBC W/DIFF AUTOMATED (04/29/2015 5:24 AM COMMERCIAL LOAN CLOSER) [facility] WBC 10.2 4.8 - 10.8 X10'3/uL 04/29/2015 5:45 AM [facility] RBC 3.58(L) 4.70 - 6.10 X10'6/uL 04/29/2015 5:45 AM [facility] HGB 9.0(L) 14.0 - 18.0 g/dL 04/29/2015 5:45 AM [facility] HCT 30.0(L) 43.0 - 54.0 % 04/29/2015 5:45 AM [facility] MCV 83.8 80.0 - 94.0 fL 04/29/2015 5:45 AM [facility] MCH 25.1(L) 27.0 - 31.0 pg 04/29/2015 5:45 AM [facility] MCHC 30.0(L) 32.0 - 36.0 g/dL 04/29/2015 5:45 AM [facility] RDW 15.3(H) 11.5 - 14.5 % 04/29/2015 5:45 AM [facility] PLT 355 130 - 400 X10'3/uL 04/29/2015 5:45 AM [facility] MPV 11.2 9.3 - 12.2 fL 04/29/2015 5:45 AM [facility] DIFFERENTIAL TYPE AUTOMATED 04/29/2015 5:45 AM [facility] NEUTROPHILS % 68.6(H) 43.0 - 65.0 % 04/29/2015 5:45 AM [facility] LYMPHOCYTES % 19.1(L) 20.0 - 46.0 % 04/29/2015 5:45 AM COMMERCIAL LOAN CLOSER [facility] MONOCYTES % 6.3 5.0 - 12.0 % 04/29/2015 5:45 AM [facility] EOSINOPHILS 5.0(H) 1.0 - 3.0 % 04/29/2015 5:45 AM COMMERCIAL LOAN CLOSER [facility] BASOPHILS 0.6 0.0 - 1.0 % 04/29/2015 5:45 AM COMMERCIAL LOAN CLOSER [facility] IMMATURE GRANS % 0.4 0.0 - 1.0 % 04/29/2015 5:45 AM [facility] 04/29/2015 5:24 AM COMMERCIAL LOAN CLOSER 04/29/2015 5:27 AM COMMERCIAL LOAN CLOSER us Generic Conversion Md CONN LABORATORY Final R esult Performing Organization Address City/[facility]/ZIP Co de Phone Number [facility] [address] [place] [address], * MAGNESIUM (04/28/2015 5:43 AM COMMERCIAL LOAN CLOSER) MAGNESIUM 2.2 1.70 - 2.55 mg/dL 04/28/2015 6:26 AM [facility] SERUM OR PLASMA SPECIMEN / Unknown 04/28/2015 5:43 AM COMMERCIAL LOAN CLOSER 04/28/2015 5:45 AM COMMERCIAL LOAN CLOSER us Generic Conversion Md CONN LABORATORY Final R esult Performing Organization Address City/[facility]/ZIP Co de Phone Number [facility] [address] [place] [address], * (ABNORMAL) BASIC METABOLIC PANEL (04/28/2015 5:43 AM COMMERCIAL LOAN CLOSER) GLUCOSE 103(H) 70 - 99 mg/dL 04/28/2015 6:26 AM COMMERCIAL LOAN CLOSER [facility] BUN 13 8 - 23 mg/dL 04/28/2015 6:26 AM [facility] CREATININE S/P/B 1.16 0.70 - 1.20 mg/dL 04/28/2015 6:26 AM [facility] SODIUM S/P/B 137 136 - 145 mmol/L 04/28/2015 6:26 AM [facility] POTASSIUM S/P/B 4.3 3.5 - 5.1 mmol/L 04/28/2015 6:26 AM [facility] CHLORIDE S/P/B 100 98 - 107 mmol/L 04/28/2015 6:26 AM [facility] CO2 30(H) 22 - 29 mmol/L 04/28/2015 6:26 AM [facility] CALCIUM S/P/B 8.3(L) 8.6 - 10.2 mg/dL 04/28/2015 6:26 AM [facility] ANION GAP 11 8 - 20 04/28/2015 6:26 AM [facility] EGFR NON-AFR. AMER. >60 >60 mL/min/1.7 3m'2 04/28/2015 6:26 AM [facility] EGFR AFR. AMER. >60 >60 mL/min/1.7 3m'2 04/28/2015 6:26 AM [facility] Comment: NOTE: eGFR is not calculated for patients <18 years of age. This is an estimated GFR (CKD EPI) and should not be used for calculating drug doses. 04/28/2015 5:43 AM COMMERCIAL LOAN CLOSER 04/28/2015 5:45 AM COMMERCIAL LOAN CLOSER us Generic Conversion Md CONN LABORATORY Final R esult [facility] [address] [place] [address], * (ABNORMAL) CBC W/DIFF AUTOMATED (04/28/2015 5:43 AM COMMERCIAL LOAN CLOSER) [facility] WBC 11.8(H) 4.8 - 10.8 X10'3/uL 04/28/2015 6:08 AM [facility] RBC 3.54(L) 4.70 - 6.10 X10'6/uL 04/28/2015 6:08 AM [facility] HGB 9.1(L) 14.0 - 18.0 g/dL 04/28/2015 6:08 AM [facility] HCT 29.8(L) 43.0 - 54.0 % 04/28/2015 6:08 AM [facility] MCV 84.2 80.0 - 94.0 fL 04/28/2015 6:08 AM [facility] MCH 25.7(L) 27.0 - 31.0 pg 04/28/2015 6:08 AM [facility] MCHC 30.5(L) 32.0 - 36.0 g/dL 04/28/2015 6:08 AM [facility] RDW 15.4(H) 11.5 - 14.5 % 04/28/2015 6:08 AM [facility] PLT 381 130 - 400 X10'3/uL 04/28/2015 6:08 AM [facility] MPV 11.1 9.3 - 12.2 fL 04/28/2015 6:08 AM [facility] DIFFERENTIAL TYPE AUTOMATED 04/28/2015 6:08 AM [facility] NEUTROPHILS % 70.7(H) 43.0 - 65.0 % 04/28/2015 6:08 AM [facility] LYMPHOCYTES % 17.5(L) 20.0 - 46.0 % 04/28/2015 6:08 AM COMMERCIAL LOAN CLOSER [facility] MONOCYTES % 5.8 5.0 - 12.0 % 04/28/2015 6:08 AM COMMERCIAL LOAN CLOSER [facility] EOSINOPHILS 5.2(H) 1.0 - 3.0 % 04/28/2015 6:08 AM COMMERCIAL LOAN CLOSER [facility] BASOPHILS 0.4 0.0 - 1.0 % 04/28/2015 6:08 AM COMMERCIAL LOAN CLOSER [facility] IMMATURE GRANS % 0.4 0.0 - 1.0 % 04/28/2015 6:08 AM COMMERCIAL LOAN CLOSER [facility] 04/28/2015 5:43 AM COMMERCIAL LOAN CLOSER 04/28/2015 5:45 AM COMMERCIAL LOAN CLOSER us Generic Conversion Md CONN LABORATORY Final R esult Performing Organization Address City/[facility] Co de Phone Number [facility] [address] [place] [address], [place] [phone] * (ABNORMAL) IRON SATURATION PANEL (04/27/2015 1:45 PM COMMERCIAL LOAN CLOSER) IRON 15(L) 59 - 158 mcg/dL 04/27/2015 2:42 PM COMMERCIAL LOAN CLOSER [facility] IRON BINDING CAPACITY 163(L) 250 - 450 mcg/dL 04/27/2015 2:42 PM COMMERCIAL LOAN CLOSER [facility] IRON SATURATION 9(L) 20 - 55 % 5 2:42 PM COMMERCIAL LOAN CLOSER [facility] UNBOUND IRON BINDING CAPACITY 148 112 - 360 mcg/dL 04/27/2015 2:42 PM COMMERCIAL LOAN CLOSER [facility] 04/27/2015 1:45 PM COMMERCIAL LOAN CLOSER 04/27/2015 1:50 PM COMMERCIAL LOAN CLOSER us Generic Conversion Md CONN LABORATORY Final R esult Performing Organization Address City/[facility]/ZIP Co de Phone Number [facility] [address] [place] [address], [place] [phone] * (ABNORMAL) COMPREHENSIVE METABOLIC PANEL (04/27/2015 1:45 PM COMMERCIAL LOAN CLOSER) [facility] GLUCOSE 84 70 - 99 mg/dL 04/27/2015 2:35 PM COMMERCIAL LOAN CLOSER [facility] BUN 15 8 - 23 mg/dL 04/27/2015 2:35 PM [facility] CREATININE S/P/B 1.50(H) 0.70 - 1.20 mg/dL 04/27/2015 2:35 PM [facility] SODIUM S/P/B 138 136 - 145 mmol/L 04/27/2015 2:35 PM [facility] POTASSIUM S/P/B 4.4 3.5 - 5.1 mmol/L 04/27/2015 2:35 PM [facility] CHLORIDE S/P/B 99 98 - 107 mmol/L 04/27/2015 2:35 PM [facility] CO2 26 22 - 29 mmol/L 04/27/2015 2:35 PM [facility] BILIRUBIN TOTAL S/P/B 0.3 0.2 - 1.2 mg/dL 04/27/2015 2:35 PM [facility] CALCIUM S/P/B 8.7 8.6 - 10.2 mg/dL 04/27/2015 2:35 PM [facility] ALKALINE PHOSPHATASE S/P/B 47 40 - 129 IU/L 04/27/2015 2:35 PM [facility] AST 11 0 - 40 IU/L 04/27/2015 2:35 PM [facility] TOTAL PROTEIN S/P/B 6.9 6.4 - 8.3 g/dL 04/27/2015 2:35 PM [facility] ALBUMIN S/P/B 2.8(L) 3.5 - 5.2 g/dL 04/27/2015 2:35 PM COMMERCIAL LOAN CLOSER [facility] ALT 9 0 - 41 IU/L 04/27/2015 2:35 PM [facility] GLOBULIN 4.1(H) 2.3 - 3.6 g/dL 04/27/2015 2:35 PM [facility] A/G RATIO 0.7(L) 1.0 - 2.0 04/27/2015 2:35 PM COMMERCIAL LOAN CLOSER [facility] ANION GAP 17 8 - 20 04/27/2015 2:35 PM [facility] EGFR NON-AFR. AMER. 54(L) >60 mL/min/1.7 3m'2 04/27/2015 2:35 PM [facility] EGFR AFR. AMER. >60 >60 mL/min/1.7 3m'2 04/27/2015 2:35 PM [facility] Comment: NOTE: eGFR is not calculated for patients <18 years of age. This is an estimated GFR (CKD EPI) and should not be used for calculating drug doses. 04/27/2015 1:45 PM COMMERCIAL LOAN CLOSER 04/27/2015 1:50 PM COMMERCIAL LOAN CLOSER us Generic Conversion Md CONN LABORATORY Final R esult [facility] [address] [place] [address], * (ABNORMAL) BNP (04/27/2015 1:45 PM COMMERCIAL LOAN CLOSER) B TYPE NATRIURETIC PEPTIDE 163.0(H) <100.0 pg/mL 04/27/2015 2:30 PM COMMERCIAL LOAN CLOSER [facility] ORDERS INTERFACE WHOLE BLOOD SPECIMEN / Unknown 04/27/2015 1:45 PM COMMERCIAL LOAN CLOSER 04/27/2015 1:50 PM COMMERCIAL LOAN CLOSER us Generic Conversion Md CONN LABORATORY Final R esult [facility] [place] [address], [place] * VITAMIN B12 / FOLATE (04/27/2015 1:45 PM COMMERCIAL LOAN CLOSER) VITAMIN B12 S/P/B 581 211 - 946 pg/mL 04/27/2015 2:48 PM COMMERCIAL LOAN CLOSER [facility] FOLATE 11.0 7.3 - 26.1 ng/mL 04/27/2015 2:48 PM COMMERCIAL LOAN CLOSER [facility] 04/27/2015 1:45 PM COMMERCIAL LOAN CLOSER 04/27/2015 1:50 PM COMMERCIAL LOAN CLOSER us Generic Conversion Md CONN LABORATORY Final R esult [facility] [address] [place] [address], * (ABNORMAL) BLOOD GAS, ARTERIAL, W/LACTATE (04/27/2015 11:22 AM COMMERCIAL LOAN CLOSER) TIME TEST WAS PERFORMED: 1128 04/27/2015 11:30 AM [facility] SAMPLE TYPE ARTERIAL 04/27/2015 11:27 AM [facility] DRAW SITE RT RADIAL 04/27/2015 11:27 AM [facility] LENORA TEST LENORA TEST PERFORMED 04/27/2015 11:27 AM [facility] CERTIFIED SCRUM MASTER CODE 79,749 04/27/2015 11:27 AM [facility] PH ARTERIAL 7.38 7.35 - 7.45 04/27/2015 11:30 AM [facility] PCO2 49(H) 35.0 - 45.0 MM HG 04/27/2015 11:30 AM [facility] PO2 57(L) 80.0 - 100.0 MM HG 04/27/2015 11:30 AM [facility] BICARB ARTERIAL 29.0(H) 22.0 - 26.0 MEQ/L 04/27/2015 11:30 AM [facility] TCO2 30.5 MEQ/L 04/27/2015 11:30 AM [facility] BE/BASE EXCESS 3.3 MEQ/L 04/27/2015 11:30 AM [facility] HEMOGLOBIN ARTERIAL 9.5(L) 14.0 - 18.0 G/DL 04/27/2015 11:30 AM [facility] % O2 HEMOGLOBIN ARTERIAL 89.0(L) 90.0 - 100.0 % 04/27/2015 11:30 AM [facility] CARBON MONOXIDE 2.4 <3.0 % 5 11:30 AM [facility] METHEMOGLOBIN 0.8 <3.0 % 04/27/2015 11:30 AM [facility] O2 CONTENT 11.9 10 - 20 VOL% 04/27/2015 11:30 AM [facility] POC HEMATOCRIT 31.0(L) 43.0 - 54.0 % 04/27/2015 11:30 AM [facility] LACTIC ACID VENOUS 0.5 0.5 - 2.2 MMOL/L 04/27/2015 11:30 AM [facility] FIO2 21.0 % 04/27/2015 11:30 AM [facility] AADO2 31 04/27/2015 11:30 AM [facility] P/F RATIO (TIDAL VOL CALC) 271 04/27/2015 11:30 AM [facility] 04/27/2015 11:2 2 AM COMMERCIAL LOAN CLOSER 04/27/2015 11:26 AM COMMERCIAL LOAN CLOSER us Generic Conversion Md CONN LABORATORY Final R esult [facility] [address] [place] [address], * (ABNORMAL) URINALYSIS WI REFLEX TO CULTURE (04/27/2015 9:10 AM COMMERCIAL LOAN CLOSER) SOURCE (FLUID) URINE, CATHETERIZED 04/27/2015 10:17 AM [facility] COLOR (U) YELLOW 04/27/2015 12:58 PM [facility] TRANSPARENCY CLEAR 04/27/2015 12:58 PM [facility] SPECIFIC GRAVITY (U) 1.024 1.001 - 1.030 04/27/2015 12:58 PM [facility] U PH 5.0 5.0 - 9.0 04/27/2015 12:58 PM [facility] LEUKOCYTES (U) NEGATIVE NEGATIVE 04/27/2015 12:58 PM [facility] NITRITES NEGATIVE NEGATIVE 04/27/2015 12:58 PM [facility] PROTEIN (U) NEGATIVE <30 MG/DL 04/27/2015 12:58 PM [facility] URINE GLUCOSE NEGATIVE NEGATIVE MG/DL 04/27/2015 12:58 PM [facility] KETONES MG/DL (U) NEGATIVE NEGATIVE MG/DL 04/27/2015 12:58 PM [facility] UROBILINOGEN NEGATIVE NEGATIVE MG/DL 04/27/2015 12:58 PM [facility] BILIRUBIN (U) NEGATIVE NEGATIVE MG/DL 04/27/2015 12:58 PM [facility] BLOOD (U) SMALL(A) NEGATIVE 04/27/2015 12:58 PM [facility] CULTURE & SENSITIVITY INDICATED? CULTURE IS NOT INDICATED 04/27/2015 12:58 PM COMMERCIAL LOAN CLOSER [facility] SQUAMOUS EPITHELIALS FEW /LPF 04/27/2015 12:58 PM [facility] WBC/HPF 2 <6 /HPF 04/27/2015 12:58 PM [facility] RBC/HPF 3 <6 /HPF 04/27/2015 12:58 PM COMMERCIAL LOAN CLOSER [facility] 04/27/2015 9:10 AM COMMERCIAL LOAN CLOSER 04/27/2015 12:29 PM COMMERCIAL LOAN CLOSER us Generic Conversion Md CONN URINE ORDERABLES Final Result Performing Organization Address [facility] Co de Phone Number [facility] [address] [place] [address], * MAGNESIUM (04/27/2015 5:23 AM COMMERCIAL LOAN CLOSER) MAGNESIUM 2.1 1.70 - 2.55 mg/dL 04/27/2015 6:36 AM [facility] SERUM OR PLASMA SPECIMEN / Unknown 04/27/2015 5:23 AM [employer]CIAL LOAN [employer] 04/27/2015 5:26 AM COMMERCIAL LOAN [employer]ER us Generic Conversion Md CONN LABORATORY Final R esult Performing Organization Address City/[facility]/ZIP Co de Phone Number [facility] [address] [place] [address], [place] [phone] * (ABNORMAL) BASIC METABOLIC PANEL (04/27/2015 5:23 AM [employer]CIAL [employer]) GLUCOSE 89 70 - 99 mg/dL 04/27/2015 6:36 AM [employer]CIAL [employer] [facility] BUN 16 8 - 23 mg/dL 04/27/2015 6:36 AM [facility] CREATININE S/P/B 1.55(H) 0.70 - 1.20 mg/dL 04/27/2015 6:36 AM [facility] SODIUM S/P/B 135(L) 136 - 145 mmol/L 04/27/2015 6:36 AM [facility] POTASSIUM S/P/B 4.5 3.5 - 5.1 mmol/L 04/27/2015 6:36 AM [facility] CHLORIDE S/P/B 98 98 - 107 mmol/L 04/27/2015 6:36 AM [facility] CO2 29 22 - 29 mmol/L 04/27/2015 6:36 AM [facility] CALCIUM S/P/B 8.4(L) 8.6 - 10.2 mg/dL 04/27/2015 6:36 AM [facility] ANION GAP 13 8 - 20 04/27/2015 6:36 AM [facility] EGFR NON-AFR. AMER. 51(L) >60 mL/min/1.7 3m'2 04/27/2015 6:36 AM [facility] EGFR AFR. AMER. 60(L) >60 mL/min/1.7 3m'2 04/27/2015 6:36 AM [facility] Comment: NOTE: eGFR is not calculated for patients <18 years of age. This is an estimated GFR (CKD EPI) and should not be used for calculating drug doses. 04/27/2015 5:23 AM [employer]CIAL LOAN [employer] 04/27/2015 5:26 AM [employer]CIAL LOAN [employer] us Generic Conversion Md CONN LABORATORY Final R esult [facility] [address] [place] [address], * (ABNORMAL) CBC W/DIFF AUTOMATED (04/27/2015 5:23 AM [employer]ERCIAL LO[employer]ER) WBC 12.7(H) 4.8 - 10.8 X10'3/uL 04/27/2015 6:07 AM [facility] RBC 3.58(L) 4.70 - 6.10 X10'6/uL 04/27/2015 6:07 AM [facility] HGB 9.0(L) 14.0 - 18.0 g/dL 04/27/2015 6:07 AM [facility] HCT 30.1(L) 43.0 - 54.0 % 04/27/2015 6:07 AM [facility] MCV 84.1 80.0 - 94.0 fL 04/27/2015 6:07 AM [facility] MCH 25.1(L) 27.0 - 31.0 pg 04/27/2015 6:07 AM [facility] MCHC 29.9(L) 32.0 - 36.0 g/dL 04/27/2015 6:07 AM [facility] RDW 15.6(H) 11.5 - 14.5 % 04/27/2015 6:07 AM [facility] PLT 397 130 - 400 X10'3/uL 04/27/2015 6:07 AM [facility] MPV 11.1 9.3 - 12.2 fL 04/27/2015 6:07 AM [facility] DIFFERENTIAL TYPE AUTOMATED 04/27/2015 6:07 AM [facility] NEUTROPHILS % 73.8(H) 43.0 - 65.0 % 04/27/2015 6:07 AM [facility] LYMPHOCYTES % 14.7(L) 20.0 - 46.0 % 04/27/2015 6:07 AM [facility] MONOCYTES % 7.6 5.0 - 12.0 % 04/27/2015 6:07 AM [employer] LO[employer] [facility] EOSINOPHILS 3.1(H) 1.0 - 3.0 % 04/27/2015 6:07 AM [employer] LO[employer] [facility] BASOPHILS 0.4 0.0 - 1.0 % 04/27/2015 6:07 AM [employer]CIAL LO[employer] [facility] IMMATURE GRANS % 0.4 0.0 - 1.0 % 04/27/2015 6:07 AM COMMER[employer] LO[employer] [facility] 04/27/2015 5:23 AM COMM[employer]CIAL LOAN [employer]ER 04/27/2015 5:26 AM [employer] LOAN [employer]ER us Generic Conversion Md CONN LABORATORY Final R lakshmi Performing Organization Address City/[facility]/ZIP Co de Phone Number [facility] [address] [place] [address], * TROPONIN, QUANT (04/26/2015 10:37 PM COMMERCIAL LOAN CLOSER) TROPONIN I <0.30 <0.30 ng/mL 04/26/2015 11:28 PM [employer] LOAN [employer]ER [facility] SERUM OR PLASMA SPECIMEN / Unknown 04/26/2015 10:37 PM [employer]CIAL LO[employer]ER 04/26/2015 10:40 PM [employer]CIAL LOAN [employer]ER us Generic Conversion Md CONN LABORATORY Final R lakshmi [facility] [address] [place] [address], [place] [phone] * LIPASE (04/26/2015 3:01 PM COMMERCIAL LOAN CLOSER) LIPASE 15 13 - 60 U/L 04/26/2015 3:43 PM COMMERCIAL LOAN [employer]ER [facility] SERUM OR PLASMA SPECIMEN / Unknown 04/26/2015 3:01 PM COMMERCIAL LOAN [employer]ER 04/26/2015 3:02 PM COMMERCIAL LOAN [employer]ER us Generic Conversion Md CONN LABORATORY Final R esult [facility] [address] [place] [address], * (ABNORMAL) COMPREHENSIVE METABOLIC PANEL (04/26/2015 3:01 PM COMMERCIAL LOAN CLOSER) [facility] GLUCOSE 97 70 - 99 mg/dL 04/26/2015 3:43 PM [facility] BUN 13 8 - 23 mg/dL 04/26/2015 3:43 PM [facility] CREATININE S/P/B 1.03 0.70 - 1.20 mg/dL 04/26/2015 3:43 PM [facility] SODIUM S/P/B 135(L) 136 - 145 mmol/L 04/26/2015 3:43 PM [facility] POTASSIUM S/P/B 4.4 3.5 - 5.1 mmol/L 04/26/2015 3:43 PM [facility] CHLORIDE S/P/B 96(L) 98 - 107 mmol/L 04/26/2015 3:43 PM [facility] CO2 31(H) 22 - 29 mmol/L 04/26/2015 3:43 PM [facility] BILIRUBIN TOTAL S/P/B 0.4 0.2 - 1.2 mg/dL 04/26/2015 3:43 PM [facility] CALCIUM S/P/B 8.9 8.6 - 10.2 mg/dL 04/26/2015 3:43 PM [facility] ALKALINE PHOSPHATASE S/P/B 51 40 - 129 IU/L 04/26/2015 3:43 PM [facility] AST 13 0 - 40 IU/L 04/26/2015 3:43 PM [facility] TOTAL PROTEIN S/P/B 7.7 6.4 - 8.3 g/dL 04/26/2015 3:43 PM [facility] ALBUMIN S/P/B 3.0(L) 3.5 - 5.2 g/dL 04/26/2015 3:43 PM [facility] ALT 10 0 - 41 IU/L 04/26/2015 3:43 PM [facility] GLOBULIN 4.7(H) 2.3 - 3.6 g/dL 04/26/2015 3:43 PM [facility] A/G RATIO 0.6(L) 1.0 - 2.0 04/26/2015 3:43 PM [facility] ANION GAP 12 8 - 20 04/26/2015 3:43 PM [facility] EGFR NON-AFR. AMER. >60 >60 mL/min/1.7 '2 04/26/2015 3:43 PM [facility] EGFR AFR. AMER. >60 >60 mL/min/1.7 '2 04/26/2015 3:43 PM [facility] Comment: NOTE: eGFR is not calculated for patients <18 years of age. This is an estimated GFR (CKD EPI) and should not be used for calculating drug doses. 04/26/2015 3:01 PM [employer]CIAL LOAN [employer]OS[employer] 04/26/2015 3:02 PM COMMERCIAL LOAN CLOSER us Generic Conversion Md [facility] Final R esult [facility] [address] [place] [address], * (ABNORMAL) AMYLASE (04/26/2015 3:01 PM COMMERCIAL LOAN CLOSER) AMYLASE S/P/B 18(L) 28 - 100 U/L 04/26/2015 3:43 PM [facility] SERUM OR PLASMA SPECIMEN / Unknown 04/26/2015 3:01 PM COMMERCIAL LOAN CLOSER 04/26/2015 3:02 PM COMMERCIAL LOAN CLOSER us Generic Conversion Md [facility] Final R esult [facility] [address] [place] [id number], * (ABNORMAL) CBC W/DIFF AUTOMATED (04/26/2015 3:01 PM COMMERCIAL LOAN CLOSER) WBC 14.1(H) 4.8 - 10.8 X10'3/uL 04/26/2015 3:11 PM [facility] RBC 4.14(L) 4.70 - 6.10 X10'6/uL 04/26/2015 3:11 PM [facility] HGB 10.4(L) 14.0 - 18.0 g/dL 04/26/2015 3:11 PM COMMERCIAL LOAN CLOSER [facility] HCT 34.6(L) 43.0 - 54.0 % 04/26/2015 3:11 PM [facility] MCV 83.6 80.0 - 94.0 fL 04/26/2015 3:11 PM [facility] MCH 25.1(L) 27.0 - 31.0 pg 04/26/2015 3:11 PM [facility] MCHC 30.1(L) 32.0 - 36.0 g/dL 04/26/2015 3:11 PM [facility] RDW 15.5(H) 11.5 - 14.5 % 04/26/2015 3:11 PM [facility] PLT 420(H) 130 - 400 X10'3/uL 04/26/2015 3:11 PM [facility] MPV 10.8 9.3 - 12.2 fL 04/26/2015 3:11 PM COMMERCIAL LOAN CLOSER [facility] DIFFERENTIAL TYPE AUTOMATED 04/26/2015 3:11 PM COMMERCIAL LOAN [employer]OSER [facility] NEUTROPHILS % 65.6(H) 43.0 - 65.0 % 04/26/2015 3:11 PM COMMERCIAL LOAN [employer]ER [facility] LYMPHOCYTES % 23.2 20.0 - 46.0 % 04/26/2015 3:11 PM COMMERCIAL LOAN [employer]ER [facility] MONOCYTES % 6.5 5.0 - 12.0 % 04/26/2015 3:11 PM COMMERCIAL LOAN [employer]OSER [facility] EOSINOPHILS 3.8(H) 1.0 - 3.0 % 04/26/2015 3:11 PM [facility] BASOPHILS 0.6 0.0 - 1.0 % 04/26/2015 3:11 PM [facility] IMMATURE GRANS % 0.3 0.0 - 1.0 % 04/26/2015 3:11 PM [facility] 04/26/2015 3:01 PM COMMERCIAL LOAN CLOSER 04/26/2015 3:02 PM COMMERCIAL LOAN CLOSER us Generic Conversion Md [facility] Final R esult [facility] [address] [place] [address], documented in this encounter Visit Diagnoses Diagnosis Acute cholecystitis with chronic cholecystitis Acute and chronic cholecystitis documented in this encounter Care Teams Right Of Way Agent Relationship Specialty Start Date End Date Rossy Conn MD PCP - General 04/26/15 documented as of this encounter
--- OUTSIDE RECORDS SUMMARY | 2024-05-22 05:48 | XMS_ITS | Clinical Summary ---
Author Organization [facility] Address [address] [place] [address]. [place] [address] [place] [address] Care Team Providers Care Cop Examiner Name Role Phone Natasha Bates PA-C Primary Care Provider + Allergies Active Allergy Reactions Criticality Noted Date Comments Aspirin Other (see comment),Unknown Medium 08/04/2020 hematuria hematuria Medications Calcium Carb-Cholecalci ferol (CALCIUM 1000 + D) 1000-800 MG-UNIT Tab Take 1 tablet by mouth daily. Active allopurinol 100 MG tablet allopurinol 100 mg tablet TAKE 2 TABLETS BY MOUTH TWICE DAILY DIRECTED 1 Active FLUoxetine 20 MG capsule Take 1 capsule by mouth every morning. 1 Active furosemide 20 MG tablet Take 20 mg by mouth daily as needed. Active gabapentin 600 MG tablet Take 1,200 mg by mouth daily. 2 Active triamcinolone 0.025 % cream Apply to left nelson twice daily when inflammed 1 Active acetaminophen 500 MG tablet Take 1,000 mg by mouth every 6 (six) hours as needed. 1 Active atorvastatin 40 MG tablet Take 40 mg by mouth daily. Active Multiple Vitamin (DAILY-RAKESH) Tab Take 1 tablet by mouth daily. 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 Social History Tobacco Use Types Packs/Day Years [...] Mass Index 35.49 08/26/2021 6:17 PM CDT Plan of Treatment Health Maintenance Due Date Last Done Comments Colorectal Cancer Screening Colonoscopy (10 Years) 1964 Annual Physical 11/13/1967 Hepatitis C 1982 DTaP, Tdap and Td Vaccines (1 - Tdap) 11/13/1983 Zoster Vaccines (1 of 2) 2014 COVID-19 Vaccine ( - season) 2024 04/27/2021, 07/09/2020, 06/06/2020 Influenza Adult (#1) 2024 05/28/2021, 02/24/2020, 05/11/2019, Additional history exists Pneumococcal Vaccine: Pediatrics (0 to 5 Years) and At-Risk Patients (6 to 64 Years) Aged Out 03/31/2020, 04/29/2015 No longer eligibl e based on patient's age to complete this topic Meningococcal Vaccine Aged Out No leigh ann negrita eligible based on patient's age to complete this topic RSV Immunizations Under 20 Months Aged Out No longer eligible based on patient's age to complete this topic Insurance Advance Directives * Full Code (Latest Code Status on File) Date Activated Date Inactivated Comments 08/26/2021 9:39 PM 08/27/2021 6:33 PM Care Teams Cop Examiner Relationship Specialty Start Date End Date Natasha Bates PA-C [address] [place] [address] PCP - General PHYSICIAN RECORDING STUDIO SETUP WORKER 08/26/21
--- OUTSIDE RECORDS SUMMARY | 2024-05-22 05:48 | XMS_ITS | Encounter Summary ---
Author Organization [facility] Address [address] [place] [address]. [place], [place] [id number] [place] [id number] Care Team Providers Care Expansion Joint Builder Name Role Phone Rossy Ordoñez MD Primary Care Provider Unavailable Encounter Details Date Type Department Care Team (Late st Contact Info) Description 04/27/2015 Abstract [facility] [address] [place] [address] [phone] Rossy Ordoñez MD Social History Tobacco Use Types Packs/Day [...] on filedocumented in this encounter Care Teams Expansion Joint Builder Relationship Specialty Start Date End Date Rossy Ordoñez MD PCP - General 04/26/15 documented as of this encounter
--- OUTSIDE RECORDS SUMMARY | 2024-05-22 05:48 | XMS_ITS | Encounter Summary ---
Author Organization [facility] Address [address] [place] [address]. [place], [place] [id number] [place] [id number] Care Team Providers Care Deli Department Manager Name Role Phone Rossy Ordoñez MD Primary Care Provider Unavailable Encounter Details Date Type Department Care Team (Late st Contact Info) Description 04/27/2015 [facility] [address] [place] [address] [phone] Rossy Ordoñez MD Social History Tobacco Use [...] on filedocumented in this encounter Care Teams Deli Department Manager Relationship Specialty Start Date End Date Rossy Ordoñez MD PCP - General 04/26/15 documented as of this encounter
--- OUTSIDE RECORDS SUMMARY | 2024-05-22 05:48 | XMS_ITS | Encounter Summary ---
Author Organization [facility] Address [address] [place] [address]. [place], [place] [phone] [place] [address] Care Team Providers Care Psychiatric Aide Name Role Phone Natasha Bates PA-C Primary Care Provider + Encounter Details Date Type Department Care Team (Latest Contact Info) Description 08/26/2021 Travel Social History Tobacco Use Types Packs/Day [...] PM CDT documented as of this encounter Plan of Treatment Not on file documented as of this encounter Visit Diagnoses Not on filedocumented in this encounter Care Teams Psychiatric Aide Relationship Specialty Start Date End Date Natasha Bates PA-C [address] [place] [address] PCP - General PHYSICIAN QUESTIONED DOCUMENTS EXAMINER 08/26/21 documented as of this encounter
--- OUTSIDE RECORDS SUMMARY | 2024-05-22 05:50 | XMS_ITS | Clinical Summary ---
Author Organization [facility] Address [address] [place] [address] Phone Care Team Providers Care Rotogravure Press Operator Name Role Phone Puneet Hughes MD Primary Care Provider [phone] Allergies Active Allergy Reactions Criticality Noted Date Comments Aspirin Other (See Comments) Medium 08/04/2020 hematuria Medications Medication Sig Dispensed Refills Start Date End Date Status gabapentin (NEURONTIN) 300 mg capsule Take 600 mg by mouth daily at bedtime. Active atorvastatin (LIPITOR) 40 mg tablet Take 40 mg by mouth daily at bedtime. Active allopurinoL (ZYLOPRIM) 100 mg tablet Take 200 mg by mouth 2 times daily. Active albuterol HFA 90 mcg inhaler Take 2 Puffs by inhalation every 4 hours as needed for Shortness of Breath. 0 Active metoprolol succinate (TOPROL XL) 25 mg Extended Release 24 hour tablet Take 25 mg by mouth daily. Active oxyCODONE (ROXICODONE) 5 mg/5 mL solutionIndicat ions:Diaphragma tic hernia Take 5 mL (5 mg) by mouth every 4 hours as needed for Pain, Break-Through. Max Daily Amount: 30 mg 210 mL 4 Active omeprazole (PriLOSEC) 20 mg Capsule, Delayed Release(E.C.) Take 1 Capsule (20 mg) by mouth daily before breakfast. 30 Capsule 4 Active ondansetron (ZOFRAN ODT) 4 mg Tablet, Rapid Dissolve Take 1 Tablet (4 mg) by mouth every 8 hours as needed for Nausea. Dissolve tablet on top of tongue, then swallow with saliva. 28 Tablet 4 Active multivitamin (DAILY-RAKESH) tablet Take 1 Tablet by mouth daily. 05/03/20 Discontinued isosorbide mononitrate (IMDUR) 30 mg Extended Release 24 hour tablet Take 45 mg by mouth daily. 0 04/24/20 Discontinued(Alt ernate therapy prescribed) furosemide (LASIX) 20 mg tablet Take 40 mg by mouth 1 time daily as needed. 05/03/20 Discontinued carvediloL (COREG) 25 mg tablet Take 25 mg by mouth 2 times daily. 04/24/20 Discontinued(Alt ernate therapy prescribed) acetaminophen (TYLENOL) 325 mg tablet Take 650 mg by mouth every 6 hours as needed for Pain. Neck and arm pain 0 05/03/20 Discontinued ondansetron (Zofran ODT) 8 mg Tablet, Rapid Dissolve Dissolve 1 tablet on top of tongue then swallow with saliva every 8 hours as needed for nausea or vomiting 20 Tablet 2 1 05/03/20 Discontinued cyanocobalamin 1,000 mcg Tablet Take 5,000 mcg by mouth daily. 05/03/20 Discontinued cetirizine (ZyrTEC) 10 mg tablet Take 10 mg by mouth daily. 05/03/20 Discontinued semaglutide, weight loss, (WEGOVY) 1.7 mg/0.75 mL Pen Injector Inject 1.7 mg by subcutaneous injection every 7 days. 05/03/20 Discontinued ondansetron (ZOFRAN ODT) 4 mg Tablet, Rapid Dissolve Take 1 Tablet (4 mg) by mouth every 8 hours as needed for Nausea. Dissolve tablet on top of tongue, then swallow with saliva. 28 Tablet 4 05/03/20 Discontinued(Marta reynaga) Active Problems Problem Noted Date Diagnosed Date Severe obesity (BMI 35.0-39.9) with comorbidity 05/02/2024 Postoperative nausea 05/02/2024 Postoperative pain 05/02/2024 General medical exam 05/02/2024 Hypertension Hyperlipidemia Obstructive sleep apnea Overview (05/02/2024): C-pap Cervical stenosis of spine Encounters Date Type Department Care Team Description 05/08/2024 External Device Data STL ABSTRACTION Provider, Abstract 05/02/2024 9:16 AM REGIONAL ACCOUNT EXECUTIVE Anesthesia Event [facility] Operating Room [address] [address] [place] [address] Shmuel Guerra MD Hale, Eric K, CRNA 05/02/2024 8:14 AM REGIONAL ACCOUNT EXECUTIVE - 05/02/2024 11:39 AM REGIONAL ACCOUNT EXECUTIVE Surgery [facility] Operating Room [address] [address] [place] [address] Lilo Basilio MD GASTRIC BYPASS LAPAROSCOPIC, HERNIA HIATAL REPAIR LAPAROSCOPIC PEH REPAIR (REVISION) 05/02/2024 6:38 AM REGIONAL ACCOUNT EXECUTIVE - 05/03/2024 3:51 PM REGIONAL ACCOUNT EXECUTIVE Hospital Encounter [facility] Surgical [address] [address] [place] [address] Lilo Basilio MD Snow, Jay M, MD Crisp, Agusto Pickett MD Severe obesity (BMI 35.0-39.9) with comorbidity Discharge Disposition: Home or Self Care 05/02/2024 Travel 04/25/2024 Abstract [facility] Operating Room [address] [address] [place] [address] Gavin Pitts MD 04/24/2024 Travel 03/27/2024 External Device Data STL ABSTRACTION Provider, Abstract 03/06/2024 External Device Data STL ABSTRACTION Provider, Abstract 03/06/2024 External Device Data STL ABSTRACTION Provider, Abstract 03/02/2024 8:57 AM CDT Anesthesia Event [facility] [address] [place] [address] Wallace Brizuela MD 03/02/2024 8:45 AM CDT - 03/02/2024 9:00 AM CDT Surgery [facility] [address] [place] [address] Lilo Basilio MD ESOPHAGOGASTRODUODENOSCOPY 03/02/2024 7:38 AM CDT - 03/02/2024 9:50 AM CDT Hospital Encounter [facility] [address] [place] [address] Lilo Basilio MD Bariatric surgery status Discharge Disposition: Home or Self Care from Last 3 Months Immunizations Name Administration Dates Next Due INFLUENZA VACCINE QUADRIVALENT 6 MOS UP PF IM Influenza Seasonal Unspecified Formulation IM Pneumococcal Polysaccharide Vacc 23-charly IM SCHIP 03/31/2020 Family History Medical History Relation Name Comments Heart Disease Mother Relation Name Status Comments Mother Social History Tobacco Use Types Packs/Day Years Used Date Smoking Tobacco: Never Smokeless Tobacco: Never Alcohol Use Standard Drinks/Week Comments Not Currently 0 (1 standard drink = 0.6 oz pur e alcohol) Feeling Safe Answer Date Recorded Are you in a relationship wi th someone who hurts you emotionally and/or physically? No 05/02/2024 Food Insecurity Answer Date Recorded Social/Environmental Concerns No concerns Transportation Needs Answer Date Record ed Social/Environmental Concerns No concerns Housing Stability Answer Date Recorded Social/Environmental Concerns No concerns Utility Needs Answer Date Recorded Social/Environmental Concerns No concerns Sex and Gender Information Value Date Recorded Sex Assigned at Not on file Gender Identity Not on file Sexual Orientation Not on file Last Filed Vital Signs Vital Sign Reading Time Taken Comments Blood Pressure 147/76 05/03/2024 11:33 AM REGIONAL ACCOUNT EXECUTIVE RN notified Pulse 61 05/03/2024 11:33 AM REGIONAL ACCOUNT EXECUTIVE Temperature 36.6 ??C (97.8 ??F) 05/03/2024 11:[address] Respiratory Rate 18 05/03/2024 11:33 AM REGIONAL ACCOUNT EXECUTIVE Oxygen Saturation 96% 05/03/2024 11:33 AM REGIONAL ACCOUNT EXECUTIVE Inhaled Oxygen Concentration - - Weight 131.5 kg (290 lb) 05/02/2024 3:02 PM REGIONAL ACCOUNT EXECUTIVE Height 185.4 cm (6' 1 ) 05/02/2024 3:02 PM REGIONAL ACCOUNT EXECUTIVE Body Mass Index 38.26 05/02/2024 3:02 PM REGIONAL ACCOUNT EXECUTIVE Plan of Treatment Health Maintenance Due Date Last Done Comments Pre-Diabetes and Diabetes Screening 1965 DTAP/TDAP/TD VACCINES (1 - Tdap) 11/13/1983 HEPATITIS B VACCINES (1 of 3 - 19+ 3-dose series) 11/13/1983 COLORECTAL SCREENING 2009 Colorectal Cancer Screening 2009 FIT-DNA Q 3 years 2009 FIT/FOBT Q 1 year 2009 Flex Sig/CT Colonography Q 5 years 2009 ZOSTER VACCINE (1 of 2) 2014 PNEUMOCOCCAL VACCINE 0-64 YE ARS (2 of 2 - PCV) 03/31/2021 03/31/2020, 04/29/2015 INFLUENZA VACCINE (#1) 2023 2, 02/24/2020, 05/11/2019, Additional history exists Medical Devices Implanted Type Area Oil Rig Driller Device Identifier Shelf Expiration Date Model / Serial / Lot Seamguard Endogia 60 Blk [id number] - [id number] Implanted:Qty : 2 on 08/04/2020 by Kelvin Woods MD at [facility] [employer] 12/11/2022 12BSGTRI 60B / / [id number] Seamguard Endogia 60 Prpl [id number] - [id number] Implanted:Qty : 2 on 08/04/2020 by Kelvin Woods MD at [facility] N/A: Abdomen [employer] 02/11/2023 12BSGTRI 60P / / [id number] Seamguard Endogia 60 Prpl [id number] - [id number] Implanted:Qty : 1 on 05/02/2024 by Lilo Basilio MD at [facility] N/A: Duodenum [employer] [id number] 12/31/2026 12BSGTRI 60P / / [id number] Seamguard Endogia 60 Prpl [id number] - [id number] Implanted:Qty : 1 on 05/02/2024 by Lilo Basilio MD at [facility] N/A: Duodenum [employer] [id number] 12/31/2026 12BSGTRI 60P / / [id number] Seamguard Endogia 60 Prpl [id number] - [id number] Implanted:Qty : 1 on 05/02/2024 by Lilo Basilio MD at [facility] N/A: Duodenum [employer] [id number] 12/31/2026 12BSGTRI 60P / / [id number] Seamguard Endogia 60 Prpl [id number] - [id number] Implanted:Qty : 1 on 05/02/2024 by Lilo Basilio MD at [facility] Biological N/A: Duodenum [employer] [id number] 12/31/2026 12BSGTRI 60P / / [id number] Informal Waiter/Waitress Endoclip Iii 5mm W/Cliplogic [id number] - [id number] Implanted:Qty : 1 on 05/02/2024 by Lilo Basilio MD at [facility] Clip N/A: Duodenum [employer] [id number] 01/20/2027 [id number] / / [id number] Hemostatic Surgiflo 8ml W/ Thrombin 2994 - [id number] Implanted:Qty : 1 on 05/02/2024 by Lilo Basilio MD at [facility] Hemostatic N/A: Duodenum [employer] [id number] 03/22/2025 2994 / / [id number] Procedures Procedure Name Priority Date/Time Associated Diagnosis Comments HEMOGLOBIN AND HEMATOCRIT Routine 05/03/2024 1:01 PM REGIONAL ACCOUNT EXECUTIVE DIFFERENTIAL, MANUAL Routine 05/03/2024 5:15 AM REGIONAL ACCOUNT EXECUTIVE BASIC METABOLIC PANEL Routine 05/03/2024 5:15 AM REGIONAL ACCOUNT EXECUTIVE CBC WITH DIFFERENTIAL Routine 05/03/2024 5:15 AM REGIONAL ACCOUNT EXECUTIVE HEMOGLOBIN AND HEMATOCRIT Routine 05/02/2024 7:52 PM REGIONAL ACCOUNT EXECUTIVE HEMOGLOBIN AND HEMATOCRIT Routine 05/02/2024 3:38 PM REGIONAL ACCOUNT EXECUTIVE PATHOLOGY Pathology 05/02/2024 12:36 PM REGIONAL ACCOUNT EXECUTIVE Diaphragmatic hernia Morbid (severe) obesity due to excess calories MI ANES INSERT ENDOTRACHEAL AIRWAY Routine 05/02/2024 9:25 AM REGIONAL ACCOUNT EXECUTIVE MI LAPS GSTR RSTCV PX W/BYP HARSHA-EN-Y LIMB <150 CM 05/02/2024 8:14 AM REGIONAL ACCOUNT EXECUTIVE Diaphragmatic hernia Morbid (severe) obesity due to excess calories BASIC METABOLIC PANEL Routine 05/02/2024 7:28 AM REGIONAL ACCOUNT EXECUTIVE UPPER ENDOSCOPY REPORT 03/02/2024 9:08 AM CDT HELICOBACTER PYLORI RAPID UREASE TEST Routine 03/02/2024 9:00 AM CDT Bariatric surgery status MI EGD TRANSORAL BIOPSY SINGLE/MULTIPLE 03/02/2024 8:45 AM CDT Bariatric surgery status from Last 3 Months Results * (ABNORMAL) HEMOGLOBIN AND HEMATOCRIT (05/03/2024 1:01 PM REGIONAL ACCOUNT EXECUTIVE) Only the most recent of3 resultswithin the time period is included. HEMOGLOBIN 11.9(L) 13.5 - 17.0 g/dL 05/03/2024 1:09 PM [facility] [place] HEMATOCRIT 37.9(L) 40.0 - 54.0 % 05/03/2024 1:09 PM [facility] [employer] [facility] Blood Venipuncture / Unknown 05/03/2024 1:01 PM REGIONAL ACCOUNT EXECUTIVE 05/03/2024 1:08 PM REGIONAL ACCOUNT EXECUTIVE Lilo Basilio MD HEMATOLOGY ORDERAB LES [facility] [employer] [facility] - [place] CLIA # [id number] [facility] [address] [place] [address] * MANUAL DIFFERENTIAL (05/03/2024 5:15 AM REGIONAL ACCOUNT EXECUTIVE) PLATELET EST. Adequate 05/03/2024 5:53 AM [facility] [place] ANISOCYTOSIS 1+ /hpf 05/03/2024 5:53 AM [facility] [place] POIKILOCYTES 1+ /hpf 05/03/2024 5:53 AM [facility] [place] MACROCYTES 1+ /hpf 05/03/2024 5:53 AM [facility] [place] STOMATOCYTES Present /hpf 05/03/2024 5:53 AM [facility] [employer] [facility] Blood Venipuncture / Unknown 05/03/2024 5:15 AM REGIONAL ACCOUNT EXECUTIVE 05/03/2024 5:23 AM REGIONAL ACCOUNT EXECUTIVE Lilo Basilio MD HEMATOLOGY ORDERAB LES COM [facility] [employer] [facility] [place] CLIA # [id number] [address] [place] [address] * (ABNORMAL) CBC WITH DIFFERENTIAL (05/03/2024 5:15 AM REGIONAL ACCOUNT EXECUTIVE) WBC 10.5 4.0 - 11.0 K/uL 05/03/2024 5:53 AM [facility] [employer] [facility] [place] RBC 4.00(L) 4.60 - 6.20 M/uL 05/03/2024 5:53 AM [facility] [place] HEMOGLOBIN 11.7(L) 13.5 - 17.0 g/dL 05/03/2024 5:53 AM [facility] [employer] [facility] [place] HEMATOCRIT 37.5(L) 40.0 - 54.0 % 05/03/2024 5:53 AM [facility] [employer] - [place] MCV 93.8 80.0 - 98.0 fL 05/03/2024 5:53 AM [facility] [place] MCH 29.3 26.0 - 34.0 pg 05/03/2024 5:53 AM [facility] [place] MCHC 31.2 31.0 - 37.0 g/dL 05/03/2024 5:53 AM [facility] [employer] [facility] [place] RDW 16.9(H) 11.5 - 14.5 % 05/03/2024 5:53 AM [facility] RDW-STDEV 58.8(H) 34.0 - 54.0 fL 05/03/2024 5:53 AM [facility] [place] PLATELETS 172 150 - 400 K/uL 05/03/2024 5:53 AM [facility] [place] MPV 12.4 8.5 - 12.5 fL 05/03/2024 5:53 AM [facility] [employer] [facility] [place] NEUTROPHILS 79(H) 50 - 70 % 05/03/2024 5:53 AM [facility] [employer] [facility] [place] LYMPHOCYTES 12(L) 20 - 40 % 05/03/2024 5:53 AM [facility] [employer] [facility] [place] MONOCYTES 7 2 - 8 % 05/03/2024 5:53 AM REGIONAL ACCOUNT EXECUTIVE [employer] [facility] [place] EOSINOPHILS 2 1 - 3 % 05/03/2024 5:53 AM REGIONAL ACCOUNT EXECUTIVE [employer] [facility] [place] BASOPHILS 0 0 - 1 % 05/03/2024 5:53 AM REGIONAL ACCOUNT EXECUTIVE [employer] [facility] [place] IMMATURE GRANULOCYTES 0 0 - 2 % 05/03/2024 5:53 AM [facility] [employer] [facility] [place] NEUTROPHIL ABSOLUTE 8.26(H) 1.80 - 7.70 K/uL 05/03/2024 5:53 AM [facility] [employer] [facility] [place] LYMPHOCYTE ABSOLUTE 1.24 1.00 - 3.30 K/uL 05/03/2024 5:53 AM REGIONAL ACCOUNT EXECUTIVE [employer] [facility] [place] MONOCYTE ABSOLUTE 0.77 0.00 - 0.80 K/uL 05/03/2024 5:53 AM REGIONAL ACCOUNT EXECUTIVE [employer] [facility] [place] EOSINOPHIL ABSOLUTE 0.19 0.00 - 0.45 K/uL 05/03/2024 5:53 AM [facility] [employer] [facility] [place] BASOPHILS ABSOLUTE 0.04 0.00 - 0.20 K/uL 05/03/2024 5:53 AM [facility] [employer] [facility] [place] IMMATURE GRANULOCYTES ABSOLUTE 0.02 0.00 - 0.31 K/uL 05/03/2024 5:53 AM [facility] [employer] [facility] Blood Venipuncture / Unknown 05/03/2024 5:15 AM REGIONAL ACCOUNT EXECUTIVE 05/03/2024 5:23 AM REGIONAL ACCOUNT EXECUTIVE Lilo Basilio MD HEMATOLOGY ORDERAB LES [facility] [employer] [facility] [place] CLIA # [id number] [facility] [address] [place] [id number] * (ABNORMAL) BASIC METABOLIC PANEL (05/03/2024 5:15 AM REGIONAL ACCOUNT EXECUTIVE) Only the most recent of2 resultswithin the time period is included. SODIUM 140 136 - 145 mmol/L 05/03/2024 6:03 AM [facility] [employer] [facility] [place] POTASSIUM 5.1 3.5 - 5.1 mmol/L 05/03/2024 6:03 AM [facility] Comment:Moderate hemolysis p resent. Can cause significant falsely elevated result. Redraw if indicated. CHLORIDE 111(H) 98 - 107 mmol/L 05/03/2024 6:03 AM [facility] CO2 22 22 - 29 mmol/L 05/03/2024 6:03 AM [facility] CALCIUM 8.0(L) 8.6 - 10.0 mg/dL 05/03/2024 6:03 AM [facility] BUN 15 6 - 20 mg/dL 05/03/2024 6:03 AM [facility] CREATININE 1.04 0.67 - 1.17 mg/dL 05/03/2024 6:03 AM [facility] GLUCOSE 93 74 - 99 mg/dL 05/03/2024 6:03 AM [facility] GFR >60 >=60 mL/min/1.7 3 sq meter 05/03/2024 6:03 AM [facility] Comment:eGFR calculated with 2020 CKD-EPI equation. Vegetarian diet, extremely high or low muscle mass, and may affect results. Cystatin C with Glomerular Filtration Rate is a suitable alternative for these patients. ANION GAP 7 5 - 15 mmol/L 05/03/2024 6:03 AM [facility] [employer] [facility] Blood Venipuncture / Unknown 05/03/2024 5:15 AM REGIONAL ACCOUNT EXECUTIVE 05/03/2024 5:35 AM REGIONAL ACCOUNT EXECUTIVE Lilo Basilio MD CHEMISTRY ORDERABL ES [facility] [employer] [facility] CLIA # [id number] [facility] [address] [place] [address] * PATHOLOGY (05/02/2024 12:36 PM REGIONAL ACCOUNT EXECUTIVE) CASE REPORT Surgical Pathology Report ? Case: [id number] ? Authorizing Provider: ??Lilo Basilio MD ?Collected: ? 05/02/2024 12:36 PM ? Ordering Location: ? [facility] ?? Received: ?05/03/2024 10:55 AM ? Operating Room ? Pathologist: ? Nicolas Moura MD ? Specimen: ?Stomach, portion of ? 05/07/2024 7:53 AM REGIONAL ACCOUNT EXECUTIVE [facility] FINAL DIAGNOSIS Gastric, partial gastrectomy -Thickened gastric wall and focal chronic inflammation -See description 05/07/2024 7:53 AM [facility] [employer] [facility] S DESCRIPTION Received in a formalin container labeled with patient's name and stomach portion of is a segment of stomach, 5.8 x 3.4 x 2.4 cm. It is closed with a row of metal shannan. The specimen is opened to show a small amount of submucosal hemorrhage. Washer Off sections are submitted in 3 cassettes. 05/07/2024 7:53 AM [facility] MICROSCOPIC DESCRIPTION Sections from the partial gastrectomy specimen show partially tangential cuts of gastric mucosa and wall. The sections show a focally thickened muscular gastric wall and mucosa demonstrating occasional chronic inflammatory cells though these are not markedly increased. Some extravasated peripheral blood elements are present though this is presumed procedure related. Clinical correlation and continued follow-up are recommended. 05/07/2024 7:53 AM [facility] OPERATIVE PROCEDURE 1: GASTRIC BYPASS LAPAROSCOPIC 05/07/2024 7:53 AM [facility] CLINICAL INFORMATION Diaphragmatic hernia [K44.9] Morbid (severe) obesity due to excess calories [E66.01] K44.9-Diaphragmat ic hernia E66.01-Morbid (severe) obesity due to excess calories 05/07/2024 7:53 AM [facility] Tissue ENTIRE STOMACH / Unknown Collection / Unknown 05/02/2024 12:36 PM REGIONAL ACCOUNT EXECUTIVE 05/03/2024 10:55 AM REGIONAL ACCOUNT EXECUTIVE Lilo Basilio MD PATHOLOGY/CYTOLOGY ORDERABLES Performing Organization Address City/State/[facility] Co de Phone Number [facility] CLIA # [id number] [facility] [address] [place] [address] * [place] ANES INSERT ENDOTRACHEAL AIRWAY (05/02/2024 9:25 AM REGIONAL ACCOUNT EXECUTIVE) Narrative Elbert Lujan CRNA - 05/02/2024 9:25 AM REGIONAL ACCOUNT EXECUTIVE Elbert Lujan CRNA ? 05/02/2024 ??9:38 AM Airway Date/Time: 05/02/2024 9:25 AM Location: OR Plan: routine intubation Patient Identity Confirmed by: ??Verbally with patient and armband Staffing Performed: CHUTE LOADER/CAA Authorized by: Shmuel Guerra MD ?? Performed by: Elbert Lujan CRNA Indications and Patient Condition: ??Indications for Airway Management: ??Anesthesia ??Sedation Level: general anesthesia ??Preoxygenated: yes ?Patient Position: ??Sniffing ??Mask Difficulty Assessment: ??0 - not attempted ??Plan to extubate at end of case: Yes ?? Final Airway Details: ??Final Airway Type: ??Endotracheal airway ??ETT ??Cuffed: Yes ?Cuff Volume (mL): ??5 ??Technique Used for Successful ETT Placement: ??Direct laryngoscopy ??Devices/Methods Used in Placement: ??Cricoid pressure, intubating stylet and modified RSI ??Blade Type: straight blade ??Blade Size: ??2 ??Insertion Site: ??Oral ??ETT Size (mm): ??8.0 ??Measured from: ??Teeth ??Tube secured with: ??Tape ??Placement Verified by: auscultation, end tidal CO2 and chest rise ?Cormack-Lehane Classification: ??Grade I - full view of glottis ??Number of Attempts at Approach: ??1 Additional Procedure Information: atraumatic and dentition unchanged Shmuel Guerra MD PROCEDURE/MINOR SURG ICAL ORDERABLES * UPPER ENDOSCOPY REPORT (03/02/2024 9:08 AM CDT) Narrative Procedure Note Lilo Basilio MD - 03/02/2024 9:08 AM CDT [facility] Endoscopy Patient Name: Howie Delaney Procedure Date: 03/02/2024 Date of : 1965 Attending MD: Lilo Basilio MD, Procedure: Upper GI endoscopy Indications: Postoperative assessment Providers: Lilo Basilio MD Referring MD: Medicines: Monitored Anesthesia Care Complications: No immediate complications. Procedure: Informed consent was obtained for the procedure, including moderate sedation after risks were discussed. Based on the pre-procedure assessment, including review of the patient's medical history, medications, allergies, and review of systems, the patient was deemed to be an appropriate candidate for sedation. A timeout was performed. Continuous ECG monitoring, pulse oximetry, blood pressure monitoring, and direct observation were performed. The Endoscope was introduced through the mouth, and advanced to the second part of duodenum. The upper GI endoscopy was accomplished without difficulty. The patient tolerated the procedure well. Findings: No gross lesions were noted in the entire esophagus. The Z-line was irregular and was found 39 cm from the incisors. No gross lesions were noted in the entire examined stomach. Biopsies were taken with a cold forceps for Helicobacter pylori testing. A 2 cm hiatal hernia was present. Evidence of a sleeve gastrectomy was found in the stomach. This was characterized by healthy appearing mucosa. No gross lesions were noted in the entire examined duodenum. Impression: - No gross lesions in the entire esophagus. - Z-line irregular, 39 cm from the incisors. - No gross lesions in the entire stomach. Biopsied. - 2 cm hiatal hernia. - A sleeve gastrectomy was found, characterized by healthy appearing mucosa. - No gross lesions in the entire examined duodenum. Recommendation: - Discharge patient to home (ambulatory). - Return to my office as previously scheduled. Procedure Code(s): --- Professional --- 39558, Esophagogastroduodenoscopy, flexible, transoral; with biopsy, single or multiple CPT copyright 2020 [employer]. All rights reserved. The codes documented in this report are preliminary and upon senior pl sql developer review may be revised to meet current compliance requirements. Lilo Basilio MD 03/02/2024 9:08:01 AM Number of Addenda: [phone] [id number] [place] [address] Lilo Basilio MD GI PROCEDURE ORDER MONTEZ * HELICOBACTER PYLORI RAPID UREASE TEST (03/02/2024 9:00 AM CDT) H. PYLORI RAPID UREASE TEST Negative Negative, Indeterminate 03/03/2024 9:22 AM CDT [facility] Tissue ENTIRE STOMACH / Unknown Collection / Unknown 03/02/2024 9:00 AM CDT 03/02/2024 9:53 AM CDT Lilo Basilio MD MICROBIOLOGY - GEN ERAL ORDERABLES [facility]# [id number] [address] [place] [address] [address] from Last 3 Months Advance Directives For more information, please contact: [phone] Documents on File Type Date Recorded Patient Washer Off Expl anation Advance Directive POA 08/07/2020 3:57 PM A dvance Directive POA * Full Code (Latest Code Status on File) Date Activated Date Inactivated Comments 05/02/2024 3:08 PM 05/03/2024 5:51 PM * Full Code Date Activated Date Inactivated Comments 05/02/2024 8:22 AM 05/02/2024 3:08 PM * Full Code Date Activated Date Inactivated Comments 05/02/2024 7:01 AM 05/02/2024 8:22 AM Care Teams Rotogravure Press Operator Relationship Specialty Start Date End Date Puneet Hughes MD [address] [place] [address] PCP - General Internal Medicine 01/03/24
--- OUTSIDE RECORDS SUMMARY | 2024-05-22 05:50 | XMS_ITS | Encounter Summary ---
Author Organization [facility] Address [address] [place] [address] Care Team Providers Care Manager Grant Name Role Phone Puneet Hughes MD Primary Care Provider [phone] Reason for Visit * Auth/Cert (Routine) Specialty Diagnoses / Procedures Referred By Contac t Referred To Contact Perioperative Diagnoses Diaphragmatic hernia Morbid (severe) obesity due to excess calories Procedures AK LAPS RPR PARAESPHGL HRNA INCL FUNDPLSTY W/O MESH AK LAPS GSTR RSTCV PX W/BYP HARSHA-EN-Y LIMB <150 CM HERNIA HIATAL REPAIR LAPAROSCOPIC PEH REPAIR GASTRIC [place] [id number] [address] [place] [address] [place] [address] [facility] Operating Room [address] [address] Referral ID Status Reason Start Date Expiration Date Visits Re quested Visits Authorized [id number] 1 1 Encounter Details Date Type Department Care Team (Late st Contact Info) Description 05/02/2024 9:16 AM PRODUCTION OPERATOR Anesthesia Event [facility] Operating Room [address] [address] Shmuel Guerra MD [address] [place] [address] Elbert Lujan, ADULT DAY CARE WORKER [address] [address] Anesthesia Record Procedure Summary Procedure Name Responsible Anesthesiologist Anesthesia Start Time Anesthesia Stop Time GASTRIC BYPASS LAPAROSCOPIC, HERNIA HIATAL REPAIR LAPAROSCOPIC PEH REPAIR (REVISION) (Abdomen) Shmuel Guerra MD 05/02/24 0916 05/02/24 1314 Events Date Time Event Comment 05/02/2024 0815 AN Equip Check Anesthesia eq uipment and materials checked in accordance with local policy. 0821 0916 An Start 0916 An Start Data 0916 In Room This event disp lays the In Room time documented in the Surgical Log. Deleting this event will not remove it from the log but will remove it from the Grid and Graph timeline. 0920 Pre-Induction Immediate pre- induction anesthetic assessment performed. Vital signs as noted on graphic. 0924 An Induction 0925 An Intubation 0931 Anesthesia Ready 0945 Procedure Start This event d isplays the Procedure Start time documented in the Surgical Log. Deleting this event will not remove it from the log but will remove it from the Grid and Graph timeline. 1256 An Extubation Emergence unev entful Awake, spontaneous respirations. Adequate muscle strength demonstrated Adequate tidal volume. Orapharynx suctioned. Extubated with positive pressure ventilation. 1305 Procedure Stop This event di splays the Procedure Stop time documented in the Surgical Log. Deleting this event will not remove it from the log but will remove it from the Grid and Graph timeline. 1309 Out of Room This event disp lays the Out of Room time documented in the Surgical Log. Deleting this event will not remove it from the log but will remove it from the Grid and Graph timeline. 1309 an stop data 1314 An Stop 1314 Hand-off to Receiving Clinic moises Meds Name Total midazolam PF (VERSED) 1 mg/mL injection 2 mg fentaNYL (SUBLIMAZE) PF 50??mcg/mL injec tion 100 mcg lidocaine PF (XYLOCAINE MPF) 2% injectio n 2.5 mL propofol (DIPRIVAN) 10??mg/mL injection 2,868.19 mg rocuronium (ZEMURON) 10mg/mL injection 1 30 mg lidocaine (XYLOCAINE) 2% injection 391.5 1 mg dexmedetomidine (PRECEDEX) in NS 400??mc g/100??mL infusion 103.96 mcg norepinephrine (LEVOPHED) 4 mg in dextro se 5% 250 mL infusion 100 mcg ceFAZolin (ANCEF,KEFZOL) 2,0 00 mg in sodium chloride 0.9% 50 mL IVPB (MBP) 2,000 mg glycopyrrolate (ROBINUL) 0.2 mg/mL injec tion 0.4 mg phenylephrine 100 mcg/mL injection 100 m cg ondansetron (ZOFRAN) 4??mg/2 mL injectio n 8 mg sugammadex (BRIDION) 100 mg/mL injection 275 mg sodium chloride 0.9% infusion 3,400 mL * Agents Name Air Sevoflurane % Sevoflurane O2 N2O Inspired N2O O2 * Blood No blood administrations on file. Lines, Drains, and Airways Type Details Placement Removal Pain Pump 05/02/24; 1228; 05/02/24; No; On Q; [id number]; Abdomen; MARCAINE 0.5% 05/02/24 1228 by Leonela Lombardi, AVA Peripheral IV Pre-Hospital Start: No; Orientation: Lower, Posterior, Right; Location: Arm; Device: Angiocath; Gauge: 20 gauge; Removal Indication: no longer indicated; Removal Interventions: direct pressure 05/02/24 0733 by Massimo Lira RN 05/03/24 1507 by Tosha Fisher, RN Endotracheal Airway Type: ETT; Size: 8; Attempts: 1; Verification: Auscultated bilateral breath sounds, Equal chest movement, Continuous waveform capnography 05/02/24 0925 by Elbert Lujan, ADULT DAY CARE WORKER 05/02/24 1256 by Elbert Lujan CRNA Incision 05/02/24; 1009; surgical incision; abdomen; 05/04/24; 0351 05/02/24 1009 by Leonela Lombardi, AVA 05/04/24 0351 by PROVIDER, DISCHARGE PATIENT documented in this encounter Social History Tobacco [...] on file documented as of this encounter OR Notes * Anesthesia Postprocedure Evaluation - Shmuel Guerra MD - 05/02/2024 3:20 PM CST Phase I Postanesthesia Evaluation Including Modified Rustam Score Patient seen and evaluated: Modified Rustam Score: Score: 9 (05/02/24 144) COMMENTS: No apparent Anesthesia related complications RESPIRATORY FUNCTION: Respiration: able to breath and cough freely (05/02/241444) [2=able to breathe and cough freely, 1=dyspnea, limited breathing or tachypnea, 0=apnea or mechanicventilator] O2 Saturation: needs O2 inhalation to maintain O2 saturation greater than 90% (05/02/24 144) [2=able to maintain O2 saturation greater than 92% on room air, 1=needs O2 inhalation to maintain O2 saturation greater than 90%, 0=O2 saturation less than 90% even with O2 supplement] Resp: 12 (05/02/24 1502)SpO2: 98 % (05/02/24 1502) CARDIOVASCULAR FUNCTION: Heart Rate: (!) 49 bpm (05/02/24 1450) BP: 117/76 (05/02/24 1502) Circulation: BP within 20% of preanesthetic level (05/02/24 144) [2=BP within 20% of preanesthetic level, 1=BP within 20-49% of preanesthetic level, 0=BP within 50%of preanesthetic level] MENTAL STATUS, NEURO, ACTIVITY: PATIENT PARTICIPATION IN EVALUATION:yes Consciousness: fully awake (05/02/241444) [2=fully awake, 1=arousable on calling, 0=not responding] Activity: able to move 4 extremities voluntarily or on command (05/02/24 144) [2=able to move 4 extremities voluntarily or on command, 1=able to move 2 extremities voluntarily or on command, 0=unable to move extremities voluntarily or on command] TEMPERATURE: Temp: (!) 35.8 ??C (05/02/24 1312) PAIN: NAUSEA AND VOMITING: no nausea and no vomiting POSTOPERATIVE HYDRATION: well hydrated Intake/Output Summary (Last 24 hours) at 05/02/2024 1521 Last data filed at 05/02/2024 1301 Gross per 24 hour Intake 3400 ml Output 20 ml Net 3380 ml Shmuel Guerra MD 05/02/2024 3:21 PM Post Anesthesia Evaluation Vitals: Vitals Value Taken Time BP 117/76 05/02/24 1502 Temp 35.8 ??C 05/02/24 1312 Resp 12 05/02/24 1502 SpO2 98 % 05/02/24 1502 Pulse 52 05/02/24 1502 Heart Rate 49 bpm 05/02/24 1450 Pain Rating: Anesthesia Post Evaluation No notable events documented. Shmuel Guerra MD UCTION OPERATOR * Anesthesia Handoff - Elbert Lujan CRNA - 05/02/2024 1:14 PM CST Post-Anesthetic transfer of care report elements to appropriate post-anesthesia recovery environment completed in accordance with procedure. I completed my handoff to the receiving nurse during which we: 1. Identified the patient 2. Identified the responsible provider 3. Reviewed the pertinent medical history 4. Discussed the surgical course 5. Reviewed intra-op anesthesia management and issues during anesthesia 6. Set expectations for post-procedure period 7. Orders as necessary and appropriate for continuation of care are present in Epic. 8. Allowed opportunity for questions and acknowledgement of understanding. Vital Signs: Vitals Value Taken Time BP 97/54 05/02/24 1312 Temp 35.8 ??C 05/02/24 1312 Resp 10 05/02/24 1312 SpO2 97 % 05/02/24 1312 Pulse 61 05/02/24 1312 Heart Rate 63 bpm 05/02/24 1313 Vitals shown include unfiled device data. 1:14 PM Elbert Lujan CRNA UCTION OPERATOR * Anesthesia Procedure Notes - Elbert Lujan CRNA - 05/02/2024 9:38 AM PRODUCTION OPERATOR Associated Order(s): Airway Airway Date/Time: 05/02/2024 9:25 AM Location: OR Plan: routine intubation Patient Identity Confirmed by: Verbally with patient and armband Staffing Performed: ELLIS/CAA Authorized by: Shmuel Guerra MD Performed by: Elbert Lujan CRNA Indications and Patient Condition: Indications for Airway Management: Anesthesia Sedation Level: general anesthesia Preoxygenated: yes Patient Position: Sniffing Mask Difficulty Assessment: 0 - not attempted Plan to extubate at end of case: Yes Final Airway Details: Final Airway Type: Endotracheal airway ETT Cuffed: Yes Cuff Volume (mL): 5 Technique Used for Successful ETT Placement: Direct laryngoscopy Devices/Methods Used in Placement: Cricoid pressure, intubating stylet and modified RSI Blade Type: straight blade Blade Size: 2 Insertion Site: Oral ETT Size (mm): 8.0 Measured from: Teeth Tube secured with: Tape Placement Verified by: auscultation, end tidal CO2 and chest rise Cormack-Lehane Classification: Grade I - full view of glottis Number of Attempts at Approach: 1 Additional Procedure Information: atraumatic and dentition unchanged UCTION OPERATOR * Anesthesia Preprocedure Evaluation - Shmuel Guerra MD - 05/02/2024 8:04 AM CST Relevant Problems No relevant active problems Anesthesia Evaluation Airway Mallampati: II TM distance: >3 FB Neck ROM: full Dental Comment: No loose dentition Pulmonary breath sounds clear to auscultation (+) sleep apnea on CPAP (-) recent URI Cardiovascular Exercise tolerance: good (+) hypertension (toprol, lasix) (-) angina, murmur Rhythm: regular Rate: normal ROS comment: 2020 TTE: Technically difficult/suboptimal echocardiogram. Left ventricular systolic function is hyperdynamicwith an ejection fraction of 75-80%. The left ventricular diastolic function is normal, consistent with normal left ventricle filling pressures. Normal right ventricular systolic function. No significant valvular dysfuntion. Mild pulmonary hypertension, estimated pulmonary arterial systolic pressure is 37 mmHg. There is no evidence of ASD/PFO by color Doppler and bubble study interrogation. Neuro/Psych (+) psychiatric history GI/Hepatic/Renal (+) GERD, bowel prep (liquid diet x 7 days) Comments: 58 yo male presents for GASTRIC BYPASS LAPAROSCOPIC, HERNIA HIATAL REPAIR LAPAROSCOPIC PEH REPAIR (REVISION) (Abdomen) Notes severe nausea at present Endo/Other Comments: Body mass index is 38.29 kg/m??. Wegovy Abdominal Anesthesia History History of anesthetic complications (emergence agitation) and history of PONV. Other findings: 05/02/24 0714 BP: (!) 140/85 Pulse: 66 Resp: 18 Temp: 36.2 ??C SpO2: 99% Anesthesia Plan ASA Final: 3 General Intravenous induction Oral ETT airway maintenance NPO status > 8 hours Anesthetic plan and risks discussed with Patient and Spouse. Plan discussed with Compactor Driver. Post-op Pain Control Plan to use IV or IM medication for post-op pain control. Plan for postoperative opioid use Smoking Compliance patient did not smoke on day of surgery UCTION OPERATOR documented in this encounter Plan of Treatment Not on file documented as of this encounter Procedures Procedure Name Priority Date/Time Associated Diagnosis Comments AK ANES INSERT ENDOTRACHEAL AIRWAY Routine 05/02/2024 9:25 AM PRODUCTION OPERATOR documented in this encounter Results * AK ANES INSERT ENDOTRACHEAL AIRWAY (05/02/2024 9:25 AM PRODUCTION OPERATOR) Narrative Elbert Lujan CRNA - 05/02/2024 9:25 AM PRODUCTION OPERATOR Elbert Lujan CRNA ? 05/02/2024 ??9:38 AM Airway Date/Time: 05/02/2024 9:25 AM Location: OR Plan: routine intubation Patient Identity Confirmed by: ??Verbally with patient and armband Staffing Performed: ADULT DAY CARE WORKER/CAA Authorized by: Shmuel Guerra MD ?? Performed [...] Shmuel Guerra MD PROCEDURE/MINOR SURG ICAL ORDERABLES documented in this encounter Visit Diagnoses Not on filedocumented in this encounter Administered Medications Inactive Administered Medications - up to 3 most recent administrations Medication Order MAR Action Action Date Dose Rate Site ceFAZolin (ANCEF,KEFZOL) 2,000 mg in sodium chloride 0.9% 50 mL IVPB (MBP) 2,000 mg, IV, PRE-PROCEDURE ONCE, 1 dose, Starting on Tue05/02/24 at 0700, Until Tue05/02/24 at 0935, Stat, Pre-op, Antibiotic Indication: Surgical prophylaxis New Bag 05/02/2024 9:30 AM PRODUCTION OPERATOR 2,000 mg dexmedeTOMIDine in NS (PRECEDEX) 400 mcg/100 mL (4 mcg/mL) infusion IV, INTRA-PROCEDURE CONTINUOUS PRN, Starting on Tue05/02/24 at 0927, Until Tue05/02/24 at 1314, Anesthesia Intra-op Rate Change 05/02/2024 9:57 AM PRODUCTION OPERATOR 0.2 mcg/kg/hr 6.58 mL/hr New Bag 05/02/2024 9:27 AM PRODUCTION OPERATOR 0.4 mcg/kg/hr 13.16 mL/h r fentaNYL PF (SUBLIMAZE) 50 mcg/mL injection IV, INTRA-PROCEDURE PRN, Starting on Tue05/02/24 at 0924, Until Tue05/02/24 at 1314, Routine, Anesthesia Intra-op Given 05/02/2024 1:05 PM PRODUCTION OPERATOR 25 mcg Given 05/02/2024 1:00 PM PRODUCTION OPERATOR 25 mcg Given 05/02/2024 10:55 AM PRODUCTION OPERATOR 25 mcg glycopyrrolate (ROBINUL) injection IV, INTRA-PROCEDURE PRN, Starting on Tue05/02/24 at 0956, Until Tue05/02/24 at 1314, Routine, Anesthesia Intra-op Given 05/02/2024 10:07 AM PRODUCTION OPERATOR 0.2 mg Given 05/02/2024 9:56 AM PRODUCTION OPERATOR 0.2 mg lidocaine 2 % (XYLOCAINE) injection IV, INTRA-PROCEDURE CONTINUOUS PRN, Starting on Tue05/02/24 at 0927, Until Tue05/02/24 at 1314, Routine, Anesthesia Intra-op Rate Change 05/02/2024 9:58 AM PRODUCTION OPERATOR 0.75 mg/kg/hr 4.935 mL/hr New Bag 05/02/2024 9:27 AM PRODUCTION OPERATOR 1.5 mg/kg/hr 9.87 mL/hr lidocaine PF 2% (XYLOCAINE MPF) injection IV, INTRA-PROCEDURE PRN, Starting on Tue05/02/24 at 0924, Until Tue05/02/24 at 1314, Routine, Anesthesia Intra-op Given 05/02/2024 9:24 AM PRODUCTION OPERATOR 2.5 mL midazolam (PF) (VERSED) injection IV, INTRA-PROCEDURE PRN, Starting on Tue05/02/24 at 0912, Until Tue05/02/24 at 1314, Routine, Anesthesia Intra-op Given 05/02/2024 9:12 AM PRODUCTION OPERATOR 2 mg norepinephrine (LEVOPHED) 4 mg in dextrose 5% 250 mL infusion IV, INTRA-PROCEDURE CONTINUOUS PRN, Starting on Tue05/02/24 at 0935, Until Tue05/02/24 at 1314, Anesthesia Intra-op Bolus 05/02/2024 12:20 PM PRODUCTION OPERATOR 4 mcg Bolus 05/02/2024 12:17 PM PRODUCTION OPERATOR 4 mcg Bolus 05/02/2024 12:15 PM PRODUCTION OPERATOR 4 mcg ondansetron (ZOFRAN) 4 mg/2 mL injection IV, INTRA-PROCEDURE PRN, Starting on Tue05/02/24 at 1219, Until Tue05/02/24 at 1314, Routine, Anesthesia Intra-op Given 05/02/2024 12:33 PM PRODUCTION OPERATOR 4 mg Given 05/02/2024 12:19 PM PRODUCTION OPERATOR 4 mg phenylephrine syringe IV, INTRA-PROCEDURE PRN, Starting on Tue05/02/24 at 1133, Until Tue05/02/24 at 1314, Routine, Anesthesia Intra-op Given 05/02/2024 11:33 AM PRODUCTION OPERATOR 100 mcg propofoL (DIPRIVAN) injection IV, INTRA-PROCEDURE PRN, Starting on Tue05/02/24 at 0924, Until Tue05/02/24 at 1314, Anesthesia Intra-op Rate Change 05/02/2024 12:49 PM PRODUCTION OPERATOR 25 mcg/kg/min 19.74 mL/hr Rate Change 05/02/2024 12:39 PM PRODUCTION OPERATOR 50 mcg/kg/min 39.48 mL /hr Rate Change 05/02/2024 12:37 PM PRODUCTION OPERATOR 75 mcg/kg/min 59.22 mL /hr rocuronium injection IV, INTRA-PROCEDURE PRN, Starting on Tue05/02/24 at 0924, Until Tue05/02/24 at 1314, Routine, Anesthesia Intra-op Given 05/02/2024 11:59 AM PRODUCTION OPERATOR 10 mg Given 05/02/2024 11:35 AM PRODUCTION OPERATOR 10 mg Given 05/02/2024 10:59 AM PRODUCTION OPERATOR 10 mg sodium chloride 0.9% infusion IV, at 30 mL/hr, PRE-PROCEDURE CONTINUOUS, Starting on Tue05/02/24 at 0715, Until Tue05/02/24 at 1502, Routine, Pre-op New Bag 05/02/2024 11:46 AM PRODUCTION OPERATOR New Bag 05/02/2024 9:17 AM PRODUCTION OPERATOR Restarted 05/02/2024 9:16 AM PRODUCTION OPERATOR sugammadex (BRIDION) 100 mg/mL injection IV, INTRA-PROCEDURE PRN, Starting on Tue05/02/24 at 1240, Until Tue05/02/24 at 1314, Routine, Anesthesia Intra-op Given 05/02/2024 12:40 PM PRODUCTION OPERATOR 275 mg documented in this encounter Care Teams Manager Grant Relationship Specialty Start Date End Date Puneet Hughes MD [address] [place] [address] PCP - General Internal Medicine 01/03/24 documented as of this encounter
--- OUTSIDE RECORDS SUMMARY | 2024-05-22 05:50 | XMS_ITS | Encounter Summary ---
Author Organization [facility] Address [address] [place] [address] Care Team Providers Care Stone Carver Name Role Phone Puneet Hughes MD Primary Care Provider [phone] Encounter Details Date Type Department Care Team (Late st Contact Info) Description 04/25/[address] [facility] Operating Room [address] [place] [phone] Gavin Pitts MD [address] [place] [address] Social History Tobacco Use Types Packs/Day Years Used Date Smoking Tobacco: Never Smokeless Tobacco: Never Alcohol Use Standard Drinks/Week Comments Not Currently 0 (1 standard drink = 0.6 oz pur e alcohol) Feeling Safe Answer Date Recorded Are you in a relationship wi th someone who hurts you emotionally and/or physically? No 04/24/2024 Food Insecurity Answer Date Recorded Social/Environmental Concerns [...] on filedocumented in this encounter Care Teams Stone Carver Relationship Specialty [place] [address] [place] [phone] PCP - General Internal Medicine 01/03/24 documented as of this encounter
--- OUTSIDE RECORDS SUMMARY | 2024-05-22 05:50 | XMS_ITS | Encounter Summary ---
Author Organization [facility] Address [address] [place] [address] Care Team Providers Care Crinkling Machine Operator Name Role Phone Puneet Hughes MD Primary Care Provider [phone] Reason for Visit * Auth/Cert (Routine) Specialty Diagnoses / Procedures Referred By Malena t Referred To Contact Perioperative Diagnoses Diaphragmatic hernia Morbid (severe) obesity due to excess calories Procedures HI LAPS RPR PARAESPHGL HRNA INCL FUNDPLSTY W/O MESH HI LAPS GSTR RSTCV PX W/BYP HARSHA-EN-Y LIMB <150 CM HERNIA HIATAL REPAIR LAPAROSCOPIC PEH REPAIR GASTRIC [place] [address] [place] [address] [place] [address] [facility] Operating Room [address] [address] Referral ID Status Reason Start Date Expiration Date Visits Re quested Visits Authorized [id number] 1 1 Encounter Details Date Type Department Care Team (Late st Contact Info) Description 05/02/2024 8:14 AM FLASH DRIER OPERATOR - 05/02/2024 11:39 AM FLASH DRIER OPERATOR Surgery [facility] Operating Room [address] [address] [place] [address] [place] [address] [place] [address] GASTRIC BYPASS LAPAROSCOPIC, HERNIA HIATAL REPAIR LAPAROSCOPIC PEH REPAIR (REVISION) Surgery Details Date/Time Status Location OR Service Patient Class Case Class Case Type Trauma Case? 05/02/2024 8:14 AM Posted [facility] 01 General Surgery Surgical OP/Extended Care Elective No Panel 1 Procedure LRB Anes Op Region Wound Class Comments GASTRIC BYPASS LAPAROSCOPIC, HERNIA HIATAL REPAIR LAPAROSCOPIC PEH REPAIR (REVISION) N/A General Abdomen Clean Contaminated-II Surgeon Surgeon Role Service Panel Gavin Pitts MD Assisting General Surgery 1 Lilo Basilio MD Primary General Surgery 1 documented in this encounter Social History Tobacco [...] Sign Reading Time Taken Comments Blood Pressure 140/85 05/02/2024 7:14 AM FLASH DRIER OPERATOR Pulse 66 05/02/2024 7:14 AM FLASH DRIER OPERATOR Temperature 36.2 ??C (97.1 ??F) 05/02/2024 7:14 AM CS T Respiratory Rate 18 05/02/2024 7:14 AM FLASH DRIER OPERATOR Oxygen Saturation 99% 05/02/2024 7:14 AM FLASH DRIER OPERATOR Inhaled Oxygen Concentration - - Weight 131.6 kg (290 lb 3.2 oz) 05/02/2024 7:14 AM FLASH DRIER OPERATOR Height 185.4 cm (6' 1 ) 04/24/2024 2:35 PM FLASH DRIER OPERATOR Body Mass Index 38.26 05/02/2024 3:02 PM FLASH DRIER OPERATOR documented in this encounter Discharge Summaries * Aby Ferris, SIMONE - 05/03/2024 8:25 AM CST Shannon Ruizerson Adult Hospitalist Discharge Summary Howie Delaney 58 y.o. male 1965 CSN: [id number] Date of Admission: 05/02/2024 Date of Discharge: 05/03/2024 Discharging Physician: Dr. Montoya / Aby Ferris DNP LOS: 1 day PCP: Puneet Hughes MD Activity: Per Dr. Basilio. Dispo: home Diet: DIET BARIATRIC Additional restrictions: No Soda,, No Sugar,; Food Texture: Clear Liquid, Code Status at Discharge: Full Code Wound Care: Per Dr. Basilio Admitting Dx and Chief Complaint Severe obesity (BMI 35.0-39.9) with comorbidity Discharge Diagnoses: Principal Problem: Severe obesity (BMI 35.0-39.9) with comorbidity Active Problems: Postoperative nausea Postoperative pain Hypertension Hyperlipidemia Obstructive sleep apnea Overview: C-pap Cervical stenosis of spine General medical exam Discharge medications and new prescriptions: Medication List START taking these medications omeprazole 20 mg Capsule, Delayed Release(E.C.) Commonly known as: PriLOSEC Take 1 Capsule (20 mg) by mouth daily before breakfast. Signed by: Nurse Practitioner Екатерина Ferris Quantity: 30 Capsule Refills: 0 oxyCODONE 5 mg/5 mL solution Commonly known as: ROXICODONE Take 5 mL (5 mg) by mouth every 4 hours as needed for Pain, Break-Through. Max Daily Amount: 30 mg Signed by: Dr. Hayley Basilio Quantity: 260 mL Refills: 0 CHANGE how you take these medications ondansetron 4 mg Tablet, Rapid Dissolve Commonly known as: ZOFRAN ODT What changed: medication strength how much to take how to take this when to take this reasons to take this additional instructions Take 1 Tablet (4 mg) by mouth every 8 hours as needed for Nausea. Dissolve tablet on top of tongue,then swallow with saliva. Signed by: Nurse Practitioner Екатерина Ferris Quantity: 28 Tablet Refills: 0 CONTINUE taking these medications albuterol sulfate 90 mcg/Actuation inhaler Take 2 Puffs by inhalation every 4 hours as needed for Shortness of Breath. Refills: 0 allopurinoL 100 mg tablet Commonly known as: ZYLOPRIM Take 200 mg by mouth 2 times daily. Refills: 0 atorvastatin 40 mg tablet Commonly known as: LIPITOR Take 40 mg by mouth daily at bedtime. Refills: 0 gabapentin 300 mg capsule Commonly known as: NEURONTIN Take 600 mg by mouth daily at bedtime. Refills: 0 metoprolol succinate 25 mg Extended Release 24 hour tablet Commonly known as: TOPROL XL Take 25 mg by mouth daily. Refills: 0 STOP taking these medications acetaminophen 325 mg tablet Commonly known as: TYLENOL cetirizine 10 mg tablet Commonly known as: ZyrTEC cyanocobalamin 1,000 mcg Tablet furosemide 20 mg tablet Commonly known as: LASIX multivitamin tablet Commonly known as: DAILY-MAYNOR semaglutide (weight loss) 1.7 mg/0.75 mL Pen Injector Commonly known as: KENNEY Where to Get Your Medications These medications were sent to [facility] [address] [address] [address], [place] [address] Hours: Tuesday - Tuesday: 7:30 am - 5 pm, Tuesday: 9 am - 1 pm (Closed for Lunch 1:30 pm - 2 pm Tue-Tue) omeprazole 20 mg Capsule, Delayed Release(E.C.) ondansetron 4 mg Tablet, Rapid Dissolve Information about where to get these medications is not yet available Ask your nurse or doctor about these medications oxyCODONE 5 mg/5 mL solution Consultants: IP CONSULT TO HOSPITALIST Brief Synopsis of Diagnostic Studies This Admission (Please see full report for details): N/A Labs and Studies from this Hospitalization Needing Follow Up: None Discharge Lab Data (Please note date of lab as some may have preceeded admission) Lab Results Component Value Date WBC 10.5 05/03/2024 HGB 11.7 (L) 05/03/2024 HCT 37.5 (L) 05/03/2024 PLT 172 05/03/2024 NA 140 05/03/2024 CL 111 (H) 05/03/2024 K 5.1 05/03/2024 CO2 22 05/03/2024 BUN 15 05/03/2024 CREAT 1.04 05/03/2024 GLUCOSE 93 05/03/2024 AST 40 08/05/2020 ALT 27 08/05/2020 Discharge Exam: BP 119/62 (BP Location: Right arm, Patient Position (BP): Sitting) Pulse 60 Temp 97.7 ??F (36.5??C) (Oral) Resp 18 Ht 6' 1 (1.854 m) Wt 131.5 kg (290 lb) SpO2 96% BMI 38.26 kg/m?? Last documented weight: Weight: 131.5 kg (290 lb) (05/02/24 1502) Physical Exam: Appearance: Well-appearing, no pain distress, well-nourished, obese. HEENT: Normocephalic, atraumatic, EOMI, PERRLA. Neck: Full range of motion. No lymphadenopathy, no JVD or thyromegaly. Cardiovascular: s1,s2 Regular rate and rhythm without murmurs, rubs or clicks. Pulmonary: No dullness to percussion. Clear to all weir bilaterally. GI / : Abdomen, large, soft, nondistended. Bowel sounds normoactive. Laparoscopic incisions well approximated, dry, and intact. On-Q ball present and intact. Extremities: No clubbing, cyanosis or edema. MS: Strength / ROM intact, no calf tenderness. Skin: Warm and dry, color normal. Neurologic: Alert and oriented times 3. No apparent focal deficits. Psychiatric: Affect / mood appropriate. Hospital Course: Patient was admitted on a same day admission basis and underwent a Laparoscopic revision Divided Gastric Bypass with Short Limb Harsha-en-Y Intestinal Bypass with reduction and repair of paraesophagealhernia by Dr. Basilio. POD #1 patient was tolerating a clear liquid diet, up ad jude activity andreporting adequate pain management. Prior to discharge it was discussed with patient s/s to report to surgeon, ie fever, increased pain, incisional redness or drainage. Discussed pharmacy recommendations and scripts with patient. Patient was instructed no driving while on pain medications and to avoid NSAID medications. Patient voiced understanding. Discharge Condition: stable. Follow-up: You must follow up with Puneet Hughes MD in 5 DAYS. More than 48 minutes spent in the care of the patient today; more than 50% of time wasspent in discussion of plan of care, going over lab and test results, expected course of disease, prognosis, counselling, discharge planning, and coordination of care. Signed: Aby Ferris DNP 05/03/2024, 8:25 AM H DRIER OPERATOR documented in this encounter Discharge Instructions * Discharge Instructions* Aby Ferris DNP - 05/02/2024 3:34 PM FLASH DRIER OPERATOR MEDICATIONS: Zofralondra Hycet Home Medications: Acetaminophen (Tylenol) 3235 mg tablet - may crush, available in liquid and chewable forms also, (NOTE: Maximum combined Acetaminophen total daily dose is 3000 mg, (500 mg tablet x6 and 325 mg tabletx9). Use caution for total daily dosing when combination pain medication products used for post op pain). Albuterol HFA 90 mcg inhaler - inhaler Allopurinol (Zyloprim) 100 mg tablet - may crush Atorvastatin (Lipitor) 40 mg tablet - may be halved BUT divided portion should be swallowed whole, not crushed or chewed Furosemide (Lasix) 20 mg tablet -STOP- may crush Gabapentin (Neurontin) 300 mg capsule - Capsules may be opened, sprinkle contents over soft food and take immediately. Metoprolol Succinate (Toprol XL) 25 mg extended release 24 hour tablet - Extended release tablets may be divided in half; do not crush or chew. Recommend changing to Lopressor (immediate release), per physician dosing recommendation, which may be crushed. Monitor blood pressure. Multivitamin (Daily-Maynor) tablet - STOP- recommend change to chewable form if unable to swallow whole. Follow vitamin recommendation of surgeon or primary physician post surgery. Ondansetron (Zofran ODT) 8 mg rapid dissolve tablet- dissolve in mouth- CHANGED TO 4 MG Do not start vitamins for one week. Start on day #7 when you start your full liquid diet. Start protein water on your first day home. Start protein shakes at the direction of your surgeon. Pain ball: Remove as instructed on May [address] Basilio as scheduled. Follow up with Puneet Hughes MD in 5 days for continued medical management. NSAIDs: This includes all over the counter preparations containing a non- steroidal anti-inflammatory agent (i.e.: Motrin, Ibuprofen, Advil, Naprosyn, Aleve, Aspirin and Aspirin containing products, all combination products containing Ibuprofen or Naprosyn) Resume/take at the direction of your surgeon. SIGNS AND SYMPTOMS TO REPORT Contact your health care provider if you experience any of the following symptoms: fever greater than 100.4, redness from incision sites, or unrelieved nausea/vomiting. For Diabetic patients: Blood sugar consistently greater than 180 or less than 70. ACTIVITY Your activity level is: Per direction of surgeon. You may return to work/school once you follow up with your doctor. Weight restriction: less than [address] you are no longer taking pain medication. You may shower. Do not take any baths or submerge in water for 4 weeks or until instructed by your surgeon. DIET Your diet is: clear liquid, advance as instructed in your bariatric diet manual. WOUND CARE For your wound/incision: Shower daily. Notify Dr. Basilio if: There is redness, swelling, or increased pain at incision sites/wounds. Pus is coming from incision sites/wounds. You develop an unexplained oral temperature above 100.4?? F. You notice a foul smell coming from incision sites/wounds. You are unable to tolerate fluids. You have persistent nausea or vomiting. Blood Pressure Log Monitor blood pressure twice daily and record. Take your Blood pressure Log with you to your next doctors office appointment: Call your primary are physician for systolic blood pressure (top number) greater than 180 or less than 100 Call for diastolic blood pressure (bottom number) greater that 100 or less than 60. Date AM PM H DRIER OPERATOR documented in this encounter Medications at Time of Discharge Medication Sig Dispensed Refills Start Date End Date ondansetron (ZOFRAN ODT) 4 mg Tablet, Rapid Dissolve Take 1 Tablet (4 mg) by mouth every 8 hours as needed for Nausea. Dissolve tablet on top of tongue, then swallow with saliva. 28 Tablet 05/03/2024 oxyCODONE (ROXICODONE) 5 mg/5 mL solutionIndications:Di aphragmatic hernia Take 5 mL (5 mg) by mouth every 4 hours as needed for Pain, Break-Through. Max Daily Amount: 30 mg 210 mL 05/02/2024 omeprazole (PriLOSEC) 20 mg Capsule, Delayed Release(E.C.) Take 1 Capsule (20 mg) by mouth daily before breakfast. 30 Capsule 05/02/2024 metoprolol succinate (TOPROL XL) 25 mg Extended Release 24 hour tablet Take 25 mg by mouth daily. gabapentin (NEURONTIN) 300 mg capsule Take 600 mg by mouth daily at bedtime. atorvastatin (LIPITOR) 40 mg tablet Take 40 mg by mouth daily at bedtime. allopurinoL (ZYLOPRIM) 100 mg tablet Take 200 mg by mouth 2 times daily. albuterol HFA 90 mcg inhaler Take 2 Puffs by inhalation every 4 hours as needed for Shortness of Breath. 03/18/2020 documented as of this encounter Progress Notes * Sunshine Contreras RN - 05/03/2024 11:30 AM CST Discharge instructions and contents of discharge education folder were reviewed and discussed with patient. Included in that discussion were diet, activity, medications, use of Incentive Spirometer, incision care, removal of On Q ball and signs and symptoms of possible post-operative complications.Patient was given the opportunity to ask questions but he didn't ask any questions. H DRIER OPERATOR * Lilo Basilio MD - 05/03/2024 8:45 AM CST Hospital day: 1 This is a Virtual Visit. Subjective: Mr. Delaney denies heart racing, lightheadedness, shortness of breath/dyspnea, vomiting Medication side effects: none Current Facility-Administered Medications Medication Dose Route Frequency Provider Last Rate Last Admin sodium chloride flush injection 5 mL 5 mL IV every 12 hours (2 times daily) Agusto Montoya MD sodium chloride flush injection 5 mL 5 mL IV see admin instructions Agusto Montoya MD sodium chloride 0.9 % flush bag 25 mL 25 mL IV see admin instructions Agusto Montoya MD dextrose 5 % in water 250 mL flush bag 25 mL 25 mL IV see admin instructions Agusto Montoya MD scopolamine (TRANSDERM-SCOP) 1 mg/72 hr transdermal patch 1 Patch 1 Patch Transdermal ONE time Shmuel Dumont MD 1 Patch at 05/02/24 0735 [COMPLETED] ceFAZolin (ANCEF,KEFZOL) 2,000 mg in sodium chloride 0.9% 50 mL IVPB (MBP) 2,000 mg IV pre-proc one time Lilo Basilio MD Stopped at 05/02/24 0935 [COMPLETED] metroNIDAZOLE (FLAGYL) IVPB 500 mg 500 mg IV ONE time only Lilo Basilio MD Stopped at 05/02/24 0917 BUPivacaine PF (SENSORCAINE MPF) 5 mg/mL (0.5%) 270 mL unilateral fixed rate On- Q pump Infiltrationcontinuous Lilo Baislio MD 4 mL/hr at 05/02/24 1319 4 mL/hr at 05/02/24 1319 naloxone (NARCAN) 0.4 mg/mL injection 0.1-0.4 mg 0.1-0.4 mg IV see admin instructions Shmuel Guerra MD [COMPLETED] acetaminophen (OFIRMEV) 10 mg/mL injection 1,000 mg 1,000 mg IV ONE time only Lilo Basilio MD Stopped at 05/02/24 2246 [COMPLETED] acetaminophen (OFIRMEV) 10 mg/mL injection 1,000 mg 1,000 mg IV ONE time only Lilo Basilio MD Stopped at 05/02/24 1845 simethicone (MYLICON) 40 mg/0.6 mL drops 40 mg 40 mg Oral every 6 hours PRN Lilo Basilio MD lactated ringers infusion IV continuous Lilo Basilio MD Stopped at 05/03/24 0443 HYDROcodone-acetaminophen 2.5-108 mg/5 mL oral solution 15 mL 7.5 mg Oral every 4 hours PRN Lilo Basilio MD morphine 4 mg/mL injection 2 mg 2 mg IV every 4 hours PRN Lilo Basilio MD 2 mg at 05/03/24 0337 HYDROcodone-acetaminophen 2.5-108 mg/5 mL oral solution 15 mL 7.5 mg Oral every 4 hours PRN Lilo Basilio MD HYDROmorphone (PF) (DILAUDID) injection 0.3 mg 0.3 mg IV every 4 hours PRN Lilo Basilio MD morphine 4 mg/mL injection 2 mg 2 mg IV every 3 hours PRN Lilo Basilio MD ondansetron (ZOFRAN) 4 mg/2 mL injection 4 mg 4 mg IV every 6 hours PRN Lilo Basilio MD 4 mg at 05/03/24 0807 metoclopramide (REGLAN) 5 mg/mL injection 10 mg 10 mg IV every 6 hours PRN Lilo Baislio MD ondansetron (ZOFRAN) 4 mg/2 mL injection 4 mg 4 mg IV every 6 hours PRN Lilo Basilio MD diphenhydrAMINE (BENADRYL) injection 25 mg 25 mg IV every 6 hours PRN Lilo Basilio MD famotidine PF (PEPCID) 20 mg/2 mL injection 20 mg 20 mg IV BID Lilo Basilio MD 20 mg at 05/03/24 0808 [COMPLETED] ceFAZolin (ANCEF,KEFZOL) 2,000 mg in sodium chloride 0.9% 50 mL IVPB (MBP) 2,000 mg IV post-proc every 8 hours Lilo Basilio MD Stopped at 05/03/24 0513 And [COMPLETED] metroNIDAZOLE (FLAGYL) IVPB 500 mg 500 mg IV post-proc every 8 hours Lilo Basilio MD Stopped at 05/03/24 0354 metoprolol succinate (TOPROL XL) SR 24 hour tablet 25 mg 25 mg Oral daily Aby Ferris DNP 25 mg at 05/03/24 0808 albuterol (PROVENTIL,VENTOLIN) 2.5 mg /3 mL (0.083 %) inhalation solution 2.5 mg 2.5 mg Inhalation resp, every 6 hours PRN Aby Ferris DNP [COMPLETED] acetaminophen (OFIRMEV) 10 mg/mL injection 1,000 mg 1,000 mg IV ONE time only Lilo Basilio MD Stopped at 05/03/24 0418 cloNIDine HCL (CATAPRES) tablet 0.1 mg 0.1 mg Oral every 8 hours PRN Aby Ferris DNP [DISCONTINUED] sodium chloride 0.9% infusion IV pre-proc continuous Shmuel Guerra MD 30 mL/hr at107/03/23 0819 New Bag at 05/02/24 1146 [DISCONTINUED] sodium chloride 0.9% infusion IV continuous Shmuel Guerra MD [DISCONTINUED] HYDROmorphone (PF) (DILAUDID) injection 0.5 mg 0.5 mg IV post- proc every 5 minutes PRN Shmuel Guerra MD [DISCONTINUED] prochlorperazine (COMPAZINE) injection 5 mg 5 mg IV post-proc one time PRN Shmuel Guerra MD [DISCONTINUED] fentaNYL PF (SUBLIMAZE) 50 mcg/mL injection 25 mcg 25 mcg IV post-proc every 3 minutes PRN Shmuel Guerra MD [DISCONTINUED] BUPivacaine PF (SENSORCAINE MPF) 5 mg/mL (0.5%) injection intra- proc PRN Lilo Basilio MD 30 mL at 05/02/24 1006 [DISCONTINUED] lactated ringers irrigation solution intra-proc PRN Lilo Basilio MD 3,000 mLat 05/02/24 1007 [DISCONTINUED] sodium chloride 0.9% irrigation solution intra-proc PRN Lilo Basilio MD 1,000 mL at 05/02/24 1007 [DISCONTINUED] acetaminophen (OFIRMEV) 10 mg/mL injection 1,000 mg 1,000 mg IV ONE time only Lilo Basilio MD [DISCONTINUED] albuterol sulfate 90 mcg/Actuation inhaler 2 Puff 2 Puff Inhalation resp, every 6 hours PRN Aby Ferris DNP Facility-Administered Medications Ordered in Other Encounters Medication Dose Route Frequency Provider Last Rate Last Admin [DISCONTINUED] midazolam (PF) (VERSED) injection IV intra-proc PRN Lujan, Elbert K, WINE CONSULTANT 2 mg at 05/02/24 0912 [DISCONTINUED] fentaNYL PF (SUBLIMAZE) 50 mcg/mL injection IV intra-proc PRN Lujan, Elbert K, WINE CONSULTANT 25 mcg at 05/02/24 1305 [DISCONTINUED] lidocaine PF 2% (XYLOCAINE MPF) injection IV intra-proc PRN Lujan, Elbert K, WINE CONSULTANT 2.5 mL at 05/02/24 0924 [DISCONTINUED] propofoL (DIPRIVAN) injection IV intra-proc PRN Lujan, Elbert K, WINE CONSULTANT 25 mcg/kg/min at 05/02/24 1249 [DISCONTINUED] rocuronium injection IV intra-proc PRN Lujna, Elbert K, WINE CONSULTANT 10 mg at 05/02/24 1159 [DISCONTINUED] lidocaine 2 % (XYLOCAINE) injection IV intra-proc continuous PRN Lujan, Elbert K, WINE CONSULTANT Stopped at 05/02/24 1254 [DISCONTINUED] dexmedeTOMIDine in NS (PRECEDEX) 400 mcg/100 mL (4 mcg/mL) infusion IV intra-proc continuous PRN Lujan, Elbert K, WINE CONSULTANT Stopped at 05/02/24 1254 [DISCONTINUED] norepinephrine (LEVOPHED) 4 mg in dextrose 5% 250 mL infusion IV intra-proc continuous PRN Lujan, Elbert K, WINE CONSULTANT 4 mcg at 05/02/24 1220 [DISCONTINUED] glycopyrrolate (ROBINUL) injection IV intra-proc PRN Lujan, Elbert K, WINE CONSULTANT 0.2 mg at 05/02/24 1007 [DISCONTINUED] phenylephrine syringe IV intra-proc PRN Lujan, Elbert K, WINE CONSULTANT 100 mcg at 05/02/24 1133 [DISCONTINUED] ondansetron (ZOFRAN) 4 mg/2 mL injection IV intra-proc PRN Lujan, Elbert K, WINE CONSULTANT 4 mg at 05/02/24 1233 [DISCONTINUED] sugammadex (BRIDION) 100 mg/mL injection IV intra-proc PRN Lujan, Elbert K, WINE CONSULTANT 275 mgat 05/02/24 1240 Objective: Physical Exam: BP 119/62 (BP Location: Right arm, Patient Position (BP): Sitting) Pulse 60 Temp 97.7 ??F (36.5??C) (Oral) Resp 18 Ht 6' 1 (1.854 m) Wt 131.5 kg (290 lb) SpO2 96% BMI 38.26 kg/m?? General appearance: alert, in no distress Abdomen: Wounds healthy. Data Review: Chemistry: Lab Results Component Value Date/Time NA 140 05/03/2024 05:15 AM K 5.1 05/03/2024 05:15 AM CL 111 (H) 05/03/2024 05:15 AM CO2 22 05/03/2024 05:15 AM BUN 15 05/03/2024 05:15 AM CREAT 1.04 05/03/2024 05:15 AM CA 8.0 (L) 05/03/2024 05:15 AM CBC: Lab Results Component Value Date/Time WBC 10.5 05/03/2024 05:15 AM RBC 4.00 (L) 05/03/2024 05:15 AM HGB 11.7 (L) 05/03/2024 05:15 AM HCT 37.5 (L) 05/03/2024 05:15 AM PLT 172 05/03/2024 05:15 AM Cardiac markers: No results found for: CKMB Assessment: Expected post op day 1 recovery. Patient Active Problem List Diagnosis Date Noted Severe obesity (BMI 35.0-39.9) with comorbidity 05/02/2024 Postoperative nausea 05/02/2024 Postoperative pain 05/02/2024 General medical exam 05/02/2024 Hypertension Hyperlipidemia Obstructive sleep apnea Overview Note: C-pap Cervical stenosis of spine Plan: Plan: No other testing at this time I advised diet,ambulate and discharge planning. Instructions given regarding fluid intake,incentive spirometry and need for maintaining mobility. H DRIER OPERATOR * Sunshine Contreras RN - 04/26/2024 8:27 AM CST Spoke to patient via phone to obtain his CPAP settings and they are set between 11 and 20. Patient asked to bring his home CPAP machine, mask and hoses with him on the day of his Bariatric surgery which is scheduled for 05/02/24. H DRIER OPERATOR * Rosey Henson PHARMACIST - 04/25/2024 8:24 AM CST Bariatric Medication Review Per home medication list viewed 04-25-24 Acetaminophen (Tylenol) 3235 mg tablet - may crush, available in liquid and chewable forms also, (NOTE: Maximum combined Acetaminophen total daily dose is 3000 mg, (500 mg tablet x6 and 325 mg tabletx9). Use caution for total daily dosing when combination pain medication products used for post op pain). Albuterol HFA 90 mcg inhaler - inhaler Allopurinol (Zyloprim) 100 mg tablet - may crush Atorvastatin (Lipitor) 40 mg tablet - may be halved BUT divided portion should be swallowed whole, not crushed or chewed Furosemide (Lasix) 20 mg tablet - may crush Gabapentin (Neurontin) 300 mg capsule - Capsules may be opened, sprinkle contents over soft food and take immediately. Metoprolol Succinate (Toprol XL) 25 mg extended release 24 hour tablet - Extended release tablets may be divided in half; do not crush or chew. Recommend changing to Lopressor (immediate release), per physician dosing recommendation, which may be crushed. Monitor blood pressure. Multivitamin (Daily-Maynor) tablet - recommend change to chewable form if unable to swallow whole. Follow vitamin recommendation of surgeon or primary physician post surgery. Ondansetron (Zofran ODT) 8 mg rapid dissolve tablet- dissolve in mouth R Elaine Henson H DRIER OPERATOR documented in this encounter H&P Notes * Lilo Basilio MD - 05/02/2024 8:06 AM CST Subjective: The patient is a 58 y.o. obese male admitted for gastric bypass surgery. Body mass index is 38.29 kg/m??. Bariatric comorbidities present: GERD. There are no problems to display for this patient. Past Medical History: Diagnosis Date Anginal pain Anxiety Cervical stenosis of spine CHF (congestive heart failure) Chronic kidney failure, stage 3 (moderate) Depression Difficulty sleeping UNABLE TO LAY FLAT Edema legs Fainted with BP dropping Fatty liver and enlarged GERD (gastroesophageal reflux disease) h/o Gout Gross hematuria History of complications due to general anesthesia difficulty awakening, got belligerent, N/V Hyperlipidemia Hypertension Hypotension Generally runs low BP around 90/70, can be orthostatic Neuropathy feet Obstructive sleep apnea C-pap Panic attack Post-operative nausea and vomiting Prediabetes PVD (peripheral vascular disease) Possible, being tested for this-have numbess and tingling in legs 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 Varicose vein of leg Past Surgical History: Procedure Laterality Date HX BLADDER SURGERY 2016 x2- exploratory surgery, sphincter muscles were cut; prostate was damaged, and hole in bladder HX URETHRAL DILATION HX URINARY SURGERY Artificial urinary sphincter-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 catheterized HI EGD TRANSORAL BIOPSY SINGLE/MULTIPLE N/A 03/02/2024 ESOPHAGOGASTRODUODENOSCOPY performed by Lilo Basilio MD at [facility] ENDOSCOPY HI LAPS GSTRC RSTRICTIV PX LONGITUDINAL GASTRECTOMY N/A 08/04/2020 SLEEVE GASTRECTOMY performed by Kelvin Woods MD at [facility] OR Medications Prior to Admission Medication Sig Dispense Refill Last Dose cyanocobalamin 1,000 mcg Tablet Take 5,000 mcg by mouth daily. 05/01/2024 cetirizine (ZyrTEC) 10 mg tablet Take 10 mg by mouth daily. 05/01/2024 semaglutide, weight loss, (WEGOVY) 1.7 mg/0.75 mL Pen Injector Inject 1.7 mg by subcutaneous injection every 7 days. 04/25/2024 metoprolol succinate (TOPROL XL) 25 mg Extended Release 24 hour tablet Take 25 mg by mouth daily. 05/02/2024 gabapentin (NEURONTIN) 300 mg capsule Take 600 mg by mouth daily at bedtime. 05/01/2024 furosemide (LASIX) 20 mg tablet Take 40 mg by mouth 1 time daily as needed. Past Week atorvastatin (LIPITOR) 40 mg tablet Take 40 mg by mouth daily at bedtime. 05/01/2024 allopurinoL (ZYLOPRIM) 100 mg tablet Take 200 mg by mouth 2 times daily. 05/01/2024 acetaminophen (TYLENOL) 325 mg tablet Take 650 mg by mouth every 6 hours as needed for Pain. Neck and arm pain Past Month ondansetron (Zofran ODT) 8 mg Tablet, Rapid Dissolve Dissolve 1 tablet on top of tongue then swallow with saliva every 8 hours as needed for nausea or vomiting 20 Tablet 2 > Month multivitamin (DAILY-MAYNOR) tablet Take 1 Tablet by mouth daily. 04/25/2024 albuterol HFA 90 mcg inhaler Take 2 Puffs by inhalation every 4 hours as needed for Shortness of Breath. > Month Allergies Allergen Reactions Aspirin Other (See Comments) hematuria Social History Tobacco Use Smoking status: Never Smokeless tobacco: Never Substance Use Topics Alcohol use: Not Currently Family History Problem Relation Name Age of Onset Heart Disease Mother Review of Systems Negative Objective: Patient Vitals for the past 8 hrs: BP Temp Temp src Pulse Resp SpO2 Weight 05/02/24 0714 (!) 140/85 97.1 ??F (36.2 ??C) Temporal 66 18 99 % 131.6 kg (290 lb 3.2 oz) General appearance: alert, in no distress Lungs: clear to auscultation bilaterally, normal respiratory effort Heart: normal rate, regular rhythm, normal S1, S2, no murmurs, rubs, clicks or gallops Abdomen: Soft, non-tender. Bowel sounds normal. No masses, no organomegaly. Extremities: extremities normal, atraumatic, no cyanosis or edema, intact distal pulses, moves all extremities equally, no edema, redness or tenderness in the calves or thighs, normal strength, normal tone Skin: Skin color, texture, turgor normal. No rashes or lesions Data Review: CBC: Lab Results Component Value Date/Time WBC 8.5 08/05/2020 05:26 AM RBC 4.48 (L) 08/05/2020 05:26 AM HGB 13.3 (L) 08/05/2020 05:26 AM HCT 40.6 08/05/2020 05:26 AM PLT 215 08/05/2020 05:26 AM BMP: Lab Results Component Value Date/Time GLUCOSE 104 (H) 05/02/2024 07:28 AM NA 142 05/02/2024 07:28 AM K 3.8 05/02/2024 07:28 AM CL 106 05/02/2024 07:28 AM CO2 26 05/02/2024 07:28 AM BUN 20 05/02/2024 07:28 AM CREAT 1.33 (H) 05/02/2024 07:28 AM CA 9.4 05/02/2024 07:28 AM Assessment: Morbid obesity with failure of conservative therapy for gastric bypass surgery. Plan: The patient was informed that risks include, but are not limited to: , anastomotic leak, obstruction, bleeding, and sepsis. Any of these could require further surgery. Other risks include DVT, PE, pneumonia, wound dehiscence, hernia, wound infection, the need for dilatations of his gastrojejunostomy, and the inability to lose appropriate weight and keep it off. We discussed that our goal is to ameliorate his medical problems and not to obtain a specific body mass index. He understands the risks and benefits and wishes to proceed with the procedure. He has signed a consent form. Date of Surgery Update: There have been no significant clinical changes since the completion of theabove H&P. Patient identified by surgeon and surgical site confirmed by patient and surgeon. Lilo Basilio MD H DRIER OPERATOR documented in this encounter Consult Notes * Aby Ferris, DNP - 05/02/2024 4:00 PM CSTAssociated Order(s): IP CONSULT TO HOSPITALIST Hospitalist Consultation Note Patient Name: Howie Delaney [id number] Primary Care Doctor: Puneet Hughes MD Requesting Physician: Gavin Pitts MD Date of Admission: 05/02/2024 Date of Service: 05/02/2024 Reason for Consultation: Status post laparoscopic vertical sleeve gastrectomy with placement of tunneled abdominal wall catheters x2 secondary to morbid obesity by Dr. Basilio. Hospitalist group was consulted for ongoing medical issues: Cervical stenosis, hyperlipidemia, hypertension, obstructive sleep apnea, postoperative nausea, postoperative pain and general medical exam. HPI: Patient is 58 y.o. male patient who is status post Laparoscopic revision Divided Gastric Bypass with Short Limb Harsha-en-Y Intestinal Bypass with reduction and repair of paraesophageal hernia with placement of tunneled abdominal wall catheters x2 secondary to morbid obesity by Dr. Allison Hospitalist group was consulted for ongoing medical issues: Cervical stenosis, hyperlipidemia, hypertension, obstructive sleep apnea, postoperative nausea, postoperative pain and general medical exam. Seen while laying in bed. at bedside. Discussed health history and home medications. Reports ahistory of high cholesterol, MIRELLA, hypertension, cervical stenosis. Reports that he does have a history of CHF but no longer having that diagnosis since having sleeve surgery in 2020. Denies any othermedical needs or concerns at this time. Denies chest pain shortness of breath and GI upset. Past Medical History: Diagnosis Date Anginal pain Anxiety Cervical stenosis of spine CHF (congestive heart failure) Chronic kidney failure, stage 3 (moderate) Depression Difficulty sleeping UNABLE TO LAY FLAT Edema legs Fainted with BP dropping Fatty liver and enlarged GERD (gastroesophageal reflux disease) h/o Gout Gross hematuria History of complications due to general anesthesia difficulty awakening, got belligerent, N/V Hyperlipidemia Hypertension Hypotension Generally runs low BP around 90/70, can be orthostatic Neuropathy feet Obstructive sleep apnea C-pap Panic attack Post-operative nausea and vomiting Prediabetes PVD (peripheral vascular disease) Possible, being tested for this-have numbess and tingling in legs 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 Varicose vein of leg Past Surgical History: Procedure Laterality Date HX BLADDER SURGERY 2016 x2- exploratory surgery, sphincter muscles were cut; prostate was damaged, and hole in bladder HX URETHRAL DILATION HX URINARY SURGERY Artificial urinary sphincter-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 catheterized HI EGD TRANSORAL BIOPSY SINGLE/MULTIPLE N/A 03/02/2024 ESOPHAGOGASTRODUODENOSCOPY performed by Lilo Basilio MD at [facility] ENDOSCOPY HI LAPS [facility] RSTRICTIV PX LONGITUDINAL GASTRECTOMY N/A 08/04/2020 SLEEVE GASTRECTOMY performed by Kelvin Woods MD at [facility] OR Current Medications: Medications Prior to Admission Medication Sig Dispense Refill Last Dose cyanocobalamin 1,000 mcg Tablet Take 5,000 mcg by mouth daily. 05/01/2024 cetirizine (ZyrTEC) 10 mg tablet Take 10 mg by mouth daily. 05/01/2024 semaglutide, weight loss, (WEGOVY) 1.7 mg/0.75 mL Pen Injector Inject 1.7 mg by subcutaneous injection every 7 days. 04/25/2024 metoprolol succinate (TOPROL XL) 25 mg Extended Release 24 hour tablet Take 25 mg by mouth daily. 05/02/2024 gabapentin (NEURONTIN) 300 mg capsule Take 600 mg by mouth daily at bedtime. 05/01/2024 furosemide (LASIX) 20 mg tablet Take 40 mg by mouth 1 time daily as needed. Past Week atorvastatin (LIPITOR) 40 mg tablet Take 40 mg by mouth daily at bedtime. 05/01/2024 allopurinoL (ZYLOPRIM) 100 mg tablet Take 200 mg by mouth 2 times daily. 05/01/2024 acetaminophen (TYLENOL) 325 mg tablet Take 650 mg by mouth every 6 hours as needed for Pain. Neck and arm pain Past Month ondansetron (Zofran ODT) 8 mg Tablet, Rapid Dissolve Dissolve 1 tablet on top of tongue then swallow with saliva every 8 hours as needed for nausea or vomiting 20 Tablet 2 > Month multivitamin (DAILY-MAYNOR) tablet Take 1 Tablet by mouth daily. 04/25/2024 albuterol HFA 90 mcg inhaler Take 2 Puffs by inhalation every 4 hours as needed for Shortness of Breath. > Month Medication Allergies: Allergies Allergen Reactions Aspirin Other (See Comments) hematuria Family History Problem Relation Name Age of Onset Heart Disease Mother Social History: Social History Tobacco Use Smoking status: Never Smokeless tobacco: Never Substance Use Topics Alcohol use: Not Currently ROS: Constitutional: denies: chills, fever, diaphoresis HEENT: denies: nasal drainage, nasal congestion dysphagia or sore throat Respiratory: denies: cough, or shortness of breath Cardiovascular: denies: chest pain Gastrointestinal/Abdominal: denies: nausea, vomiting. Reports: Abdominal pain 0/10 Genitourinary: denies: discharge, dysuria, frequency, hematuria, pain Musculoskeletal: denies: back pain, joint swelling, muscle pain Skin: denies: dryness, rash Neurological/Psych: denies: headache, numbness, tingling, weakness All other systems reviewed and negative; non-contributory for chief complaint. Physical Exam: BP 117/76 (BP Location: Left arm, Patient Position (BP): Supine) Pulse (!) 52 Temp (!) 96.4 ??F(35.8 ??C) (Temporal) Resp 12 Ht 6' 1 (1.854 m) Wt 131.6 kg (290 lb 3.2 oz) SpO2 98% BMI38.29 kg/m?? Appearance: Morbidly obese, well-appearing, NAD HEENT: Normocephalic, atraumatic, PERRLA Neck: Supple, no lymphadenopathy, no JVD, full ROM Cardiovascular: Regular rate and rhythm, without murmurs, rubs or clicks Pulmonary: Respirations even and unlabored, lung sounds are clear bilaterally GI / : Abdomen soft, mild tenderness, non distended; abdominal incisions well approximated without erythema or drainage, tunneled abdominal wall catheters x2 and on-Q ball present and intact, bowelsounds hypoactive Extremities: No clubbing, cyanosis, or edema MS: Strength/ROM intact, no calf tenderness, SCDs intact Skin: Warm and dry, color normal Neurologic: Alert and oriented times 3 Data Base: Lab: Results for orders placed or performed during the hospital encounter of 05/02/24 (from the past 24 hour(s)) BASIC METABOLIC PANEL Result Value Ref Range SODIUM 142 136 - 145 mmol/L POTASSIUM 3.8 3.5 - 5.1 mmol/L CHLORIDE 106 98 - 107 mmol/L CO2 26 22 - 29 mmol/L CALCIUM 9.4 8.6 - 10.0 mg/dL BUN 20 6 - 20 mg/dL CREATININE 1.33 (H) 0.67 - 1.17 mg/dL GLUCOSE 104 (H) 74 - 99 mg/dL GFR >60 >=60 mL/min/1.73 sq meter ANION GAP 10 5 - 15 mmol/L Labs reviewed on chart by policy writer typist done prior to arrival Assessment:PLAN 1. Morbid obesity Status post Laparoscopic revision Divided Gastric Bypass with Short Limb Harsha-en-Y Intestinal Bypass with reduction and repair of paraesophageal hernia with placement of tunneled abdominal wall catheters x2 secondary to morbid obesity by Dr. Basilio. IV fluids/antiemetics/pain control using pain scale/incentive spirometer encourage frequently tolerating ice chips without difficulty/tolerated procedure well 2. DVT/GI prophylaxis Heparin/SCDs/H2 jim 3. Cervical stenosis Reports taking gabapentin as home medication May continue gabapentin after discharge 4. Hyperlipidemia Reports taking atorvastatin as home medication May continue atorvastatin after discharge 5. Hypertension Reports taking metoprolol as home medication May continue metoprolol and tolerating fluids 6. Obstructive sleep apnea CPAP compliant 7. Postop nausea Administer antiemetic as ordered 8. Postoperative pain Administer pain medication as ordered 9. General Medical exam As charted above This patient was discussed with Dr. Montoya and he agrees with the above plan. More than 35 minutes spent in the care of the patient today; more than 50% of time was spent in discussion of plan of care, going over lab and test results, expected course of disease, prognosis, counselling, discharge planning, and coordination of care. Thank you for consulting [facility]. We will gladly follow the patient throughout their stay. Aby Ferris, SIMONE This note was transcribed using Speech Recognition software. May contain unintended grammar and spelling errors. If there are any questions or major errors, please contact me. H DRIER OPERATOR documented in this encounter OR Notes * Operative Report - Lilo Basilio MD - 05/02/2024 1:47 PM CST PREOPERATIVE DIAGNOSIS: Severe GERD,Hiatal Hernia, Morbid Obesity POSTOPERATIVE DIAGNOSIS: Severe GERD,Hiatal Hernia, Morbid Obesity. PROCEDURE: 1.Laparoscopic Extensive Lysis of previous sleeve surgery adhesions. 2.Laparoscopic revision Divided Gastric Bypass with Short Limb Harsha-en-Y Intestinal Bypass.Conversion of sleeve to Harsha Y gastric Bypass. 3.Laparoscopic Partial Gastrectomy. 4.Insertion of Tunneled Abdominal Wall Catheters x2. 5.Reduction and repair of Para Esophageal Hernia 5.Intraoperative Upper GI endoscopy. SURGEON: Lilo Basilio MD STOCK PREPARER: Gavin Pitts MD Preoperative Diagnosis: 1. Severe GERD 2. Paraesophageal hernia ANESTHESIA: General Endotracheal SPECIMEN: Excised Jejunum was not sent to pathology. Partial gastrectomy specimen. ESTIMATED BLOOD LOSS: 25 ml COMPLICATIONS: None OPERATIVE PROCEDURE: Patient has had previous sleeve gastrectomy. She has intractable heartburn andongoing problems with her sleeve surgery and also she has developed weight regain. She was evaluated and decision was made about doing a revision surgery to gastric bypass. The patient was given intravenous antibiotics, sequential stockings, and subcutaneous heparin in the preoperative area. After informed consent, the patient was brought to the operating room, placed in a supine position, and underwent general anesthesia. The abdomen was prepped and draped in the usual sterile fashion. A supraumbilical incision was made with a scalpel. A 5 mm non-bladed obturator was placed into the peritoneal cavity under direct vision. Pneumoperitoneum was established with CO2 to a maximum pressure of 15. The camera was placed. The exposed liver was unremarkable without mass, and there was no protruding pelvic mass. Next a 12 mm right subcostal, 5 mm right upper quadrant, 12 mm cutting left flank, and 5 mm left subcostal trocars were placed. The supraumbilical trocar was replaced with a 12 mm non-bladed trocar, and the 45 degree 10 mm scopewas utilized. Findings as below was noticed: -Intra abdominal obesity. -The sleeve stomach was densely adherent to the liver,retroperitoneum and the diaphragm. -Hiatal Hernia - Thickened Residual stomach This needed 2 hours extra time and technical difficulty in completing the surgery. Procedure: The greater omentum was divided with the harmonic scalpel to the transverse colon. The ligament of Treitz was identified, then 50 cm of proximal jejunum was measured and the bowel was transected witha Covidien linear stapler. The mesentery was divided with the harmonic scalpel. The distal jejunum was measured for 150 cm. Openings were made in the jejunum with the harmonic scalpel. A Sim coloured linear stapler was placed in the lumen and fired. There was good hemostasis. The jejunal opening was closed with a running 2-0 Silk suture. The mesenteric opening was closed with continuous 2-0 V Loc sutures, which also helped to suspend the Harsha limb. The patient was placed in reverse trendelenberg position. I proceeded with dissection of the proximal part of the sleeve stomach.There was thick adhesions between liver, stomach, transverse colon and diaphragm. This was taken down by sharp and blunt dissection to achieve normal anatomy and liver was completely dissected free and a live retractor was placed. Further dissection was needed to free the stomach,colon and from diaphragm. All the adhesions and scar tissue were taken down to define the anatomy of the stomach.Due to denseadhesions the divion of the scar tissue was technically difficult.This needed extra amount of time to achieve the objective. This added 80 minutes of extra dissection time and technical difficulty. The liver was seperated from the proximal stomach. The proximal sleeve stomach itself was dissectedfree from the diaphragm. Dense omental adhesions to the sleeve stomach was lysed free. The stomach staple line was defined. The lumen and GE junction itself were defined with a VISIG tube being passed into the stomach. A paraesophageal hiatal hernia was noticed with stomach and paraesophageal structures herniated into the thorax.The Decision was made to reduce and repair the hernia in view of the anatomic abnormality and due to the patient's symptoms.The gastro hepatic ligament was incised.The right crura was identified. Dissection was performed along the right crura.The hernia sac and herniated stomach was dissected and freed.Left crura was identified. The hernia sac and the herniated stomach was dissected free and reduced.The esophagus was dissected free and the gastro esophageal junction was reduced backin to the abdomen for a length of 5 cms.The crura was approximated posteriorly by placing Non absorb able O V Loc sutures running fashion..Hemostasis was achieved and confirmed. Once this was done I made the conventional underwriter to insert a calibration tube.The gastric pouch sizeand shape was well defined with the help of the tube in the stomach. A sharp dissection was performed along the lesser curve at the site of the gastric pouch division. By sharp and blunt dissection the lesser sac was entered.A Purple color linear stapler with seamguard was used to divide the stomach and by serial firing the stomach pouch was created. There was a complete gastric division and good hemostasis. At this time, I noticed that the distal portion of the sleeve pouch was thickened. It was interposing in the site of future Gastric jejunal anastamosis. I decided to perform a partial gastrectomy. The distal stomach was dissected free from the lesser omentum and along the greater curvature. A Purple color linear stapler with seam guard was fired across the distal stomach just proximal to the antrum and partial gastrectomy was completed. The specimen was removed and sent for pathology. At this time the conventional underwriter inserted the Lyndon 21 mm anvil into the esophagus.This was guided by an orogastric tube.The tip of the orogastric tube was made to abett on the anterior wall of the stomach and using an L hook electrocautery,I made a gastrotomy on the gastric pouch at the site of the OG tube. The OG tube was pulled into the peritoneal cavity and out through the left subcostal 12 mm port. Care was taken to avoid contamination the operative field. The suture connecting the anvil and the OG tube was divided and the OG tube was removed. The anvil was in the right postion in the gastric pouch. The Harsha limb staple line was opened up with the harmonic scalpel, a 21 mm circular blue stapler was placed into the peritoneal cavity, and the jejunum was telescoped over the circular stapler. The connector was brought out through the antimesenteric border, it was attached to the anvil, the circular stapler was tightened with the proper orientation, and the stapler was fired. Both rings were inspected, they were both completely intact and they were discarded. The excess jejunum was resected with a Sim linear stapler. The excess jejunum was removed and discarded. The gastrojejunostomy was reinforced with 3-0 V Loc continuous running sutures. An upper GI endoscope was inserted into the esophagus. The anastamosis was found to be intact and no bleeding was noticed. The pouch was distended with air as the anastamosis was placed under water under irrigation fluid.There was excellent distension of the gastrojejunostomy and absolutely no evidence of an air leak. The endoscope was removed, the saline was suctioned free. The jejunojejunostomy defects was closed with running 2-0 V loc sutures. The cárdenas's space was closed using 2-0 V Loc continuous suture. Then an abdominal wall introducer was placed through a separate incision in the xiphoid region. It was tunneled through the subcutaneous fat, through the abdominal wall fascia, into the preperitonealplane along the right subcostal margin. A catheter was placed, the sheath was removed, and the catheter was irrigated with half percent Marcaine. A second abdominal wall introducer was placed througha separate incision in the xiphoid region. The second was tunneled through the subcutaneous fat, through the abdominal wall fascia into the preperitoneal plane along the left subcostal margin. A catheter was placed, the sheath was removed, and the catheter was irrigated with half percent Marcaine. Both catheters had good patency, they were secured to the skin with 4-0 PDS, Dermabond, Steri-Strips, and Tegaderm. Both catheters were placed under direct laparoscopic visualization. The 12 mm left flank trocar site was closed with an 0 Vicryl suture using the Granny needle.The prot site was infiltrated with marcaine.Then the pneumoperitoneum was released, as the trocars were removed, and there was no bleeding. The wound was irrigated, there was good hemostasis, and the skin edges were approximated with interrupted subcuticular 4-0 PDS suture. A 1 inch pack left in the left incision. The patient did tolerate the procedure well, there were no complications, and the patient was brought to the recovery room awake and in stable condition. H DRIER OPERATOR * Jessie-OP - Leonela Lombardi RN - 05/02/2024 10:25 AM CST [employer] [id number] LOT# [id number] EXP. 01/20/29 [employer] [id number] LOT# [id number] EXP. 12/20/28, LOT# EXP. 11/19/28 AND LOT# [id number] EXP. 11/19/28 H DRIER OPERATOR * Jessie-OP - Leonela Lombardi RN - 05/02/2024 9:16 AM CST IDENTIFIED VERBALLY/WRIST BAND AND PER DATE. PROCEDURE VERIFIED AND CONSENT NOTED. SEEN PER SURGEON. ASSISTED TO BATHROOM PRIOR TO COMING TO OR. TO OR PER CART. TRANSFERRED TO OR TABLE PER HOVER MAT. POSITIONED FOR SAFETY AND COMFORT. TIME OUT AND FIRE SAFETY DONE. H DRIER OPERATOR documented in this encounter Miscellaneous Notes * Care Plan - Tosha Fisher RN - 05/03/2024 12:18 PM CST Problem: Pain, Potential/Actual Goal: Verbalizes/displays acceptable comfort level or baseline comfort level Description: Outcome: Variance Problem: Gastrointestinal Goal: Achieve optimal gastrointestinal function by discharge or maintain baseline function Outcome: Variance Problem: Nutrition/Endocrine Goal: Achieve optimal nutrition and fluid status to meet metabolic needs throughout hospitalization Outcome: Variance Problem: Musculoskeletal Goal: Achieve optimal musculoskeletal function by discharge or maintain baseline function Outcome: Variance Problem: Infection Risk/Actual Goal: Infection Risk/Actual: Infection prevention, control, or resolution by discharge Description: Outcome: Progressing Problem: Safety/Fall Goal: Safety/Fall: Absence of fall, injury, harm during hospitalization Description: Absence of/reduce fall risk during current hospitalization related to: 1. History of falls 2. Mobility deficits 3. Medications 4. Mental status/LOC/awareness 5. Toileting needs 6. Volume/electrolyte status 7. Communication/sensory 8. Behavior Outcome: Progressing Problem: Discharge Planning Goal: Identify discharge needs upon admission and through discharge Description: Outcome: Progressing Problem: Cardiovascular Goal: Achieve optimal cardiovascular function by discharge or maintain baseline function Outcome: Progressing Problem: Genitourinary/Renal Goal: Achieve optimal genitourinary and renal function by discharge or maintain baseline function Outcome: Progressing Problem: Skin Goal: Maintain skin integrity and/or promote wound healing by discharge Outcome: Progressing Problem: Respiratory Goal: Achieve optimal respiratory function by discharge and/or maintain baseline function Outcome: Progressing Problem: Cognitive/Perceptual/Neuro Goal: Achieve optimal cognitive/perceptual/neurological function by discharge or maintain baseline function Outcome: Progressing Problem: Peripheral Neurovascular Goal: Achieve optimal peripheral neurovascular function by discharge or maintain baseline function Outcome: Progressing H DRIER OPERATOR * Care Plan - Kimberly Lu RN - 05/03/2024 10:09 AM CST Problem: Discharge Planning Goal: Identify discharge needs upon admission and through discharge Description: Outcome: Progressing Clinical documentation reviewed. Comprehensive Discharge Planning Risk Assessment was completed. Documentation Related to CDPA score CDPA Documentation Ambulation: independent Transferring: independent Toileting: independent Bathing: independent Dressing: independent Eating: independent Communication: understands/communicates w/o difficulty Weight-Bearing Status: no weight-bearing restrictions Living Arrangements: Lives with spouse/significant other Total Score of 9 or below does not identify immediate needs for discharge. CDPA Risk Score Total Score: 4 4 Age Criteria that do not apply: Self-reported walking limitation Disability Prior Living Status Please place consult if needs for discharge are identified. Care Management will continue to follow for discharge planning. CDPA-4. Readmit risk 0. Patient received surgery yesterday: PROCEDURE: 1.Laparoscopic Extensive Lysis of previous sleeve surgery adhesions. 2.Laparoscopic revision Divided Gastric Bypass with Short Limb Harsha-en-Y Intestinal Bypass.Conversion of sleeve to Harsha Y gastric Bypass. 3.Laparoscopic Partial Gastrectomy. 4.Insertion of Tunneled Abdominal Wall Catheters x2. 5.Reduction and repair of Para Esophageal Hernia 5.Intraoperative Upper GI endoscopy. RICKI Scott, RN, [facility] Care Management H DRIER OPERATOR * Care Plan - Kimberly Bell RN - 05/03/2024 4:46 AM CST Mr. Delaney continues to progress towards goals. He had bouts of dizziness at the start of the shift and was unable to ambulate without taking several breaks, however, he states the dizziness has reduced significantly throughout the night and he was able to ambulate longer distances each time. Pain was managed as well, with pt requesting pain relief x1 for pain 11/29. No nausea reported. Ice chips tolerated and pt is motivated to start clear liquids this morning. Spouse remains at bedside and call light is within reach. Problem: Cardiovascular Goal: Achieve optimal cardiovascular function by discharge or maintain baseline function Outcome: Variance Problem: Genitourinary/Renal Goal: Achieve optimal genitourinary and renal function by discharge or maintain baseline function Outcome: Variance Problem: Skin Goal: Maintain skin integrity and/or promote wound healing by discharge Outcome: Variance Problem: Gastrointestinal Goal: Achieve optimal gastrointestinal function by discharge or maintain baseline function Outcome: Variance H DRIER OPERATOR * Treatment Plan - Kimberly Bell RN - 05/03/2024 12:13 AM CST Images from the original note were not included. H DRIER OPERATOR * Treatment Plan - Azeb Loo RN - 05/02/2024 8:44 PM CST Initiate this protocol in place of provider order or pathway order for vital sign frequency while patient is admitted to Medical/Surgical unit. Discontinue the protocol if patient is transferred to anther unit of the hospital. The protocol will need to be re-ordered if the patient is readmitted to M edical/Surgical unit. Exclusions: Post-operative/procedure vitals signs Sepsis Bundle or Code Hour One Blood administration and vital signs FLAT EXAMINER medication administration Per nurse's discretion based on patient's condition. Clinical [place] Withdrawal Assessment (CIWA) patients Clinical Opiate Withdrawal Scale Rule out CVA patients Nursing Communication: If NEWS2 score is less than or equal to 4, two hours prior to 0001, nursing will hold the standard vital signs between 2300 and 0400. Standard Vital Signs will resume at 0400. Nursing Order by protocol to be placed: Enter the order in [facility] under [id number] Nursing Communication (aka Miscellaneous) with the following comment: Hold 2300 to 0400 Standard Vital Sign if NEWS2 Score is less than or equal to 4 while admitted to Medical/Surgical H DRIER OPERATOR * Care Plan - Ana Quinones RN - 05/02/2024 2:49 PM CST Potential for pain related to surgical/procedural intervention Interventions: Assess level of pain/comfort utilizing verbal/nonverbal pain scales; assess culturalor christian indicators attached to pain; administer pain medications as prescribed; utilize non-pharmacologic pain control and comfort measures Expected Outcome: Patient demonstrates and reports adequate pain control Outcome Met: Pt denies discomfort at this time. H DRIER OPERATOR * Treatment Plan - Massimo Lira RN - 05/02/2024 7:32 AM CST Knowledge deficit related to procedure/environment Interventions: Assess learning needs and willingness to learn; give clear, concise explanations of the environment and sequence of events surrounding the periop experience; address patient/family questions and concerns; provide teaching as indicated, provide teaching related to postoperative pain assessment utilizing pain scales Expected Outcome: Patient verbalizes or demonstrates awareness/understanding of surgery and perioperative experience Outcome Met: Discussed pre op protocols, questions answered, verbalized understanding. H DRIER OPERATOR documented in this encounter Plan of Treatment Not on file documented as of this encounter Procedures Procedure Name Priority Date/Time Associated Diagnosis Comments HEMOGLOBIN AND HEMATOCRIT Routine 05/03/2024 1:01 PM FLASH DRIER OPERATOR DIFFERENTIAL, MANUAL Routine 05/03/2024 5:15 AM FLASH DRIER OPERATOR CBC WITH DIFFERENTIAL Routine 05/03/2024 5:15 AM FLASH DRIER OPERATOR BASIC METABOLIC PANEL Routine 05/03/2024 5:15 AM FLASH DRIER OPERATOR HEMOGLOBIN AND HEMATOCRIT Routine 05/02/2024 7:52 PM FLASH DRIER OPERATOR HEMOGLOBIN AND HEMATOCRIT Routine 05/02/2024 3:38 PM FLASH DRIER OPERATOR PATHOLOGY Pathology 05/02/2024 12:36 PM FLASH DRIER OPERATOR Diaphragmatic hernia Morbid (severe) obesity due to excess calories HI LAPS GSTR RSTCV PX W/BYP HARSHA-EN-Y LIMB <150 CM 05/02/2024 8:14 AM FLASH DRIER OPERATOR Diaphragmatic hernia Morbid (severe) obesity due to excess calories BASIC METABOLIC PANEL Routine 05/02/2024 7:28 AM FLASH DRIER OPERATOR documented in this encounter Results * (ABNORMAL) HEMOGLOBIN AND HEMATOCRIT (05/03/2024 1:01 PM FLASH DRIER OPERATOR) HEMOGLOBIN 11.9(L) 13.5 - 17.0 g/dL 05/03/2024 1:09 PM FLASH DRIER OPERATOR [facility] HEMATOCRIT 37.9(L) 40.0 - 54.0 % 05/03/2024 1:09 PM FLASH DRIER OPERATOR [facility] Blood Venipuncture / Unknown 05/03/2024 1:01 PM FLASH DRIER OPERATOR 05/03/2024 1:08 PM FLASH DRIER OPERATOR Lilo Basilio MD HEMATOLOGY ORDERAB LES [facility] CLIA # [id number] [address] [place] [address] * MANUAL DIFFERENTIAL (05/03/2024 5:15 AM FLASH DRIER OPERATOR) PLATELET EST. Adequate 05/03/2024 5:53 AM FLASH DRIER OPERATOR [facility] [place] ANISOCYTOSIS 1+ /hpf 05/03/2024 5:53 AM FLASH DRIER OPERATOR [facility] [place] POIKILOCYTES 1+ /hpf 05/03/2024 5:53 AM FLASH DRIER OPERATOR [facility] [place] MACROCYTES 1+ /hpf 05/03/2024 5:53 AM FLASH DRIER OPERATOR [facility] [place] STOMATOCYTES Present /hpf 05/03/2024 5:53 AM FLASH DRIER OPERATOR [facility] Blood Venipuncture / Unknown 05/03/2024 5:15 AM FLASH DRIER OPERATOR 05/03/2024 5:23 AM FLASH DRIER OPERATOR Lilo Basilio MD HEMATOLOGY ORDERAB LES COM [facility] CLIA # [id number] [address] [place] [address] * (ABNORMAL) BASIC METABOLIC PANEL (05/03/2024 5:15 AM FLASH DRIER OPERATOR) SODIUM 140 136 - 145 mmol/L 05/03/2024 6:03 AM [facility] [employer] [facility] POTASSIUM 5.1 3.5 - 5.1 mmol/L 05/03/2024 6:03 AM [facility] Comment:Moderate hemolysis p resent. Can cause significant falsely elevated result. Redraw if indicated. CHLORIDE 111(H) 98 - 107 mmol/L 05/03/2024 6:03 AM [facility] CO2 22 22 - 29 mmol/L 05/03/2024 6:03 AM [facility] CALCIUM 8.0(L) 8.6 - 10.0 mg/dL 05/03/2024 6:03 AM [facility] BUN 15 6 - 20 mg/dL 05/03/2024 6:03 AM [facility] CREATININE 1.04 0.67 - 1.17 mg/dL 05/03/2024 6:03 AM [facility] GLUCOSE 93 74 - 99 mg/dL 05/03/2024 6:03 AM [facility] GFR >60 >=60 mL/min/1.7 3 sq meter 05/03/2024 6:03 AM [facility] Comment:eGFR calculated with 2020 CKD-EPI equation. Vegetarian diet, extremely high or low muscle mass, and may affect results. Cystatin C with Glomerular Filtration Rate is a suitable alternative for these patients. ANION GAP 7 5 - 15 mmol/L 05/03/2024 6:03 AM [facility] [employer] [facility] Blood Venipuncture / Unknown 05/03/2024 5:15 AM FLASH DRIER OPERATOR 05/03/2024 5:35 AM FLASH DRIER OPERATOR Lilo Basilio MD CHEMISTRY ORDERABL ES [facility] [employer] [facility] CLIA # [id number] [address] [place] [address] * (ABNORMAL) CBC WITH DIFFERENTIAL (05/03/2024 5:15 AM FLASH DRIER OPERATOR) [facility] WBC 10.5 4.0 - 11.0 K/uL 05/03/2024 5:53 AM [facility] [employer] [facility] [place] RBC 4.00(L) 4.60 - 6.20 M/uL 05/03/2024 5:53 AM [facility] [place] HEMOGLOBIN 11.7(L) 13.5 - 17.0 g/dL 05/03/2024 5:53 AM [facility] [employer] [facility] [place] HEMATOCRIT 37.5(L) 40.0 - 54.0 % 05/03/2024 5:53 AM [facility] [employer] [facility] [place] MCV 93.8 80.0 - 98.0 fL 05/03/2024 5:53 AM [facility] [employer] [facility] [place] MCH 29.3 26.0 - 34.0 pg 05/03/2024 5:53 AM [facility] [place] MCHC 31.2 31.0 - 37.0 g/dL 05/03/2024 5:53 AM [facility] [place] RDW 16.9(H) 11.5 - 14.5 % 05/03/2024 5:53 AM [facility] [place] RDW-STDEV 58.8(H) 34.0 - 54.0 fL 05/03/2024 5:53 AM [facility] [place] PLATELETS 172 150 - 400 K/uL 05/03/2024 5:53 AM [facility] [employer] [facility] [place] MPV 12.4 8.5 - 12.5 fL 05/03/2024 5:53 AM [facility] [place] NEUTROPHILS 79(H) 50 - 70 % 05/03/2024 5:53 AM [facility] [place] LYMPHOCYTES 12(L) 20 - 40 % 05/03/2024 5:53 AM [facility] [employer] [facility] [place] MONOCYTES 7 2 - 8 % 05/03/2024 5:53 AM [facility] [employer] [facility] [place] EOSINOPHILS 2 1 - 3 % 05/03/2024 5:53 AM FLASH DRIER OPERATOR [employer] [facility] [place] BASOPHILS 0 0 - 1 % 05/03/2024 5:53 AM FLASH DRIER OPERATOR [employer] [facility] IMMATURE GRANULOCYTES 0 0 - 2 % 05/03/2024 5:53 AM FLASH DRIER OPERATOR [facility] [place] NEUTROPHIL ABSOLUTE 8.26(H) 1.80 - 7.70 K/uL 05/03/2024 5:53 AM FLASH DRIER OPERATOR [employer] [facility] LYMPHOCYTE ABSOLUTE 1.24 1.00 - 3.30 K/uL 05/03/2024 5:53 AM FLASH DRIER OPERATOR [employer] [facility] [place] MONOCYTE ABSOLUTE 0.77 0.00 - 0.80 K/uL 05/03/2024 5:53 AM FLASH DRIER OPERATOR [employer] [facility] [place] EOSINOPHIL ABSOLUTE 0.19 0.00 - 0.45 K/uL 05/03/2024 5:53 AM FLASH DRIER OPERATOR [employer] [facility] [place] BASOPHILS ABSOLUTE 0.04 0.00 - 0.20 K/uL 05/03/2024 5:53 AM FLASH DRIER OPERATOR [employer] [facility] [place] IMMATURE GRANULOCYTES ABSOLUTE 0.02 0.00 - 0.31 K/uL 05/03/2024 5:53 AM FLASH DRIER OPERATOR [employer] [facility] Blood Venipuncture / Unknown 05/03/2024 5:15 AM FLASH DRIER OPERATOR 05/03/2024 5:23 AM FLASH DRIER OPERATOR Lilo Basilio MD HEMATOLOGY ORDERAB LES [facility] CLIA # [id number] [facility] [address] [place] [address] * (ABNORMAL) HEMOGLOBIN AND HEMATOCRIT (05/02/2024 7:52 PM FLASH DRIER OPERATOR) [facility] HEMOGLOBIN 12.3(L) 13.5 - 17.0 g/dL 05/02/2024 8:13 PM FLASH DRIER OPERATOR [employer] [facility] [place] HEMATOCRIT 40.0 40.0 - 54.0 % 05/02/2024 8:13 PM FLASH DRIER OPERATOR [employer] [facility] Blood Venipuncture / Unknown 05/02/2024 7:52 PM FLASH DRIER OPERATOR 05/02/2024 8:12 PM FLASH DRIER OPERATOR Lilo Basilio MD HEMATOLOGY ORDERAB LES Performing Organization Address [facility] Co de Phone Number [facility] [place] CLIA # [id number] [address] [address] * (ABNORMAL) HEMOGLOBIN AND HEMATOCRIT (05/02/2024 3:38 PM FLASH DRIER OPERATOR) HEMOGLOBIN 13.4(L) 13.5 - 17.0 g/dL 05/02/2024 3:44 PM FLASH DRIER OPERATOR [facility] [place] HEMATOCRIT 43.8 40.0 - 54.0 % 05/02/2024 3:44 PM FLASH DRIER OPERATOR [facility] Blood Venipuncture / Unknown 05/02/2024 3:38 PM FLASH DRIER OPERATOR 05/02/2024 3:43 PM FLASH DRIER OPERATOR Lilo Basilio MD HEMATOLOGY ORDERAB LES Performing Organization Address City/[facility] Co de Phone Number [facility] [place] CLIA # [id number] [address] [address] * PATHOLOGY (05/02/2024 12:36 PM FLASH DRIER OPERATOR) CASE REPORT Surgical Pathology Report ? Case: [id number] ? Authorizing Provider: ??Lilo Basilio MD ?Collected: ? 05/02/2024 12:36 PM ? Ordering Location: ? [facility] ?? Received: ?05/03/2024 10:55 AM ? Operating Room ? Pathologist: ? Nicolas Mouar MD ? Specimen: ?Stomach, portion of ? 05/07/2024 7:53 AM [facility] FINAL DIAGNOSIS Gastric, partial gastrectomy -Thickened gastric wall and focal chronic inflammation -See description 05/07/2024 7:53 AM [facility] S DESCRIPTION Received in a formalin container labeled with patient's name and stomach portion of is a segment of stomach, 5.8 x 3.4 x 2.4 cm. It is closed with a row of metal shannan. The specimen is opened to show a small amount of submucosal hemorrhage. Bender Hand sections are submitted in 3 cassettes. 05/07/2024 7:53 AM [facility] MICROSCOPIC DESCRIPTION Sections from the partial gastrectomy specimen show partially tangential cuts of gastric mucosa and wall. The sections show a focally thickened muscular gastric wall and mucosa demonstrating occasional chronic inflammatory cells though these are not markedly increased. Some extravasated peripheral blood elements are present though this is presumed procedure related. Clinical correlation and continued follow-up are recommended. 05/07/2024 7:53 AM [facility] OPERATIVE PROCEDURE 1: GASTRIC BYPASS LAPAROSCOPIC 05/07/2024 7:53 AM [facility] [employer] [facility] CLINICAL INFORMATION Diaphragmatic hernia [K44.9] Morbid (severe) obesity due to excess calories [E66.01] K44.9-Diaphragmat ic hernia E66.01-Morbid (severe) obesity due to excess calories 05/07/2024 7:53 AM [facility] Tissue ENTIRE STOMACH / Unknown Collection / Unknown 05/02/2024 12:36 PM FLASH DRIER OPERATOR 05/03/2024 10:55 AM FLASH DRIER OPERATOR Lilo Basilio MD PATHOLOGY/CYTOLOGY ORDERABLES [facility] [employer] [facility] CLIA # [id number] [address] [place] [address] * (ABNORMAL) BASIC METABOLIC PANEL (05/02/2024 7:28 AM FLASH DRIER OPERATOR) SODIUM 142 136 - 145 mmol/L 05/02/2024 7:58 AM [facility] POTASSIUM 3.8 3.5 - 5.1 mmol/L 05/02/2024 7:58 AM [facility] [place] CHLORIDE 106 98 - 107 mmol/L 05/02/2024 7:58 AM [facility] [place] CO2 26 22 - 29 mmol/L 05/02/2024 7:58 AM [facility] CALCIUM 9.4 8.6 - 10.0 mg/dL 05/02/2024 7:58 AM [facility] [place] BUN 20 6 - 20 mg/dL 05/02/2024 7:58 AM [facility] CREATININE 1.33(H) 0.67 - 1.17 mg/dL 05/02/2024 7:58 AM [facility] [employer] [facility] [place] GLUCOSE 104(H) 74 - 99 mg/dL 05/02/2024 7:58 AM [facility] GFR >60 >=60 mL/min/1.7 3 sq meter 05/02/2024 7:58 AM [facility] Comment:eGFR calculated with 2020 CKD-EPI equation. Vegetarian diet, extremely high or low muscle mass, and may affect results. Cystatin C with Glomerular Filtration Rate is a suitable alternative for these patients. ANION GAP 10 5 - 15 mmol/L 05/02/2024 7:58 AM FLASH DRIER OPERATOR [facility] Blood Venipuncture / Unknown 05/02/2024 7:28 AM FLASH DRIER OPERATOR 05/02/2024 7:43 AM FLASH DRIER OPERATOR Shmuel Guerra MD CHEMISTRY ORDERABLES [facility] CLIA # [id number] [address] [place] [id number] documented in this encounter Visit Diagnoses Diagnosis Diaphragmatic hernia Diaphragmatic hernia without mention of obstruction or gangrene Morbid (severe) obesity due to excess calories Diaphragmatic hernia Diaphragmatic hernia without mention of obstruction or gangrene Morbid (severe) obesity due to excess calories documented in this encounter Administered Medications Inactive Administered Medications - up to 3 most recent administrations Medication Order MAR Action Action Date Dose Rate Site albuterol (PROVENTIL,VENTOLIN) 2.5 mg /3 mL (0.083 %) inhalation solution 2.5 mg 2.5 mg, Inhalation, EVERY 6 HOURS PRN RESPIRATORY, Starting on Tue05/02/24 at 1538, Until Sushila 05/03/24 at 1801, Shortness of Breath, Routine BUPivacaine PF (SENSORCAINE MPF) 5 mg/mL (0.5%) 270 mL unilateral fixed rate On-Q pump Infiltration, CONTINUOUS, Starting on Tue05/02/24 at 0815, Until Tue05/03/24 at 1801, 270 mL, Routine, Pre-op, PUMP USE: Incisional Infiltration, FILL CAPACITY: 270-335 mL, LUMEN QTY: Dual Lumen, RATE: ALL OPTIONS EXCEED MAX RECOMMENDED RATE: EXCEED MAX RATE, SPECIFY RATE: 2 mL/hr/lumen (4 mL/hr total) New Bag 05/02/2024 1:19 PM FLASH DRIER OPERATOR 4 mL/hr 4 mL/hr BUPivacaine PF (SENSORCAINE MPF) 5 mg/mL (0.5%) injection INTRA-PROCEDURE PRN, Starting on Tue05/02/24 at 1006, Until Tue05/02/24 at 1309, Routine, Intra-op Given 05/02/2024 10:06 AM FLASH DRIER OPERATOR 30 mL Operative Site cloNIDine HCL (CATAPRES) tablet 0.1 mg 0.1 mg, Oral, EVERY 8 HOURS PRN, Starting on Tue05/02/24 at 1556, Until Sushila 05/03/24 at 1801, Blood Pressure, Blood pressure, Routine dextrose 5 % in water 250 mL flush bag 25 mL 25 mL, IV, SEE ADMIN INSTRUCTIONS, Starting on Tue05/03/24 at 0013, Until Tue05/03/24 at 1801, Routine diphenhydrAMINE (BENADRYL) injection 25 mg 25 mg, IV, EVERY 6 HOURS PRN, Starting on Tue05/02/24 at 1508, Until Sushila 05/03/24 at 1801, Itching, Routine, Post-op - Floor famotidine PF (PEPCID) 20 mg/2 mL injection 20 mg 20 mg, IV, TWO TIMES DAILY, First dose on Tue05/02/24 at 2100, Until Discontinued, Routine, Post-op - Floor Given 05/03/2024 8:08 AM FLASH DRIER OPERATOR 20 mg Given 05/02/2024 9:22 PM FLASH DRIER OPERATOR 20 mg HYDROcodone-acetaminophen 2.5-108 mg/5 mL oral solution 15 mL 15 mL (7.5 mg), Oral, EVERY 4 HOURS PRN, Starting on Tue05/03/24 at 1000, Until Sushila 05/03/24 at 1801, Pain (See admin instructions), Routine, Post-op - Floor HYDROcodone-acetaminophen 2.5-108 mg/5 mL oral solution 15 mL 15 mL (7.5 mg), Oral, EVERY 4 HOURS PRN, Starting on Tue05/03/24 at 1000, Until Sushila 05/03/24 at 1801, Pain (See admin instructions), Routine, Post-op - Floor HYDROmorphone (PF) (DILAUDID) injection 0.3 mg 0.3 mg, IV, EVERY 4 HOURS PRN, Starting on Tue05/02/24 at 1508, Until Sushila 05/03/24 at 1801, Pain (See admin instructions), Routine, Post-op - Floor lactated ringers infusion IV, at 200 mL/hr, CONTINUOUS, Starting on Tue05/02/24 at 1515, Until Tue05/03/24 at 1801, Routine, Post-op - Floor New Bag 05/03/2024 9:29 AM FLASH DRIER OPERATOR 200 mL/hr Restarted 05/03/2024 4:18 AM FLASH DRIER OPERATOR 200 mL/hr Restarted 05/03/2024 3:54 AM FLASH DRIER OPERATOR 200 mL/hr lactated ringers irrigation solution INTRA-PROCEDURE PRN, Starting on Tue05/02/24 at 1007, Until Tue05/02/24 at 1309, Intra-op Given 05/02/2024 10:07 AM FLASH DRIER OPERATOR 3,000 mL Operative Site metoclopramide (REGLAN) 5 mg/mL injection 10 mg 10 mg, IV, EVERY 6 HOURS PRN, Starting on Tue05/02/24 at 1508, Until Tue05/03/24 at 1801, Nausea/Emesis, Routine, Post-op - Floor metoprolol succinate (TOPROL XL) SR 24 hour tablet 25 mg 25 mg, Oral, DAILY, First dose on Tue05/03/24 at 0900, Until Discontinued, Routine, Previous Med: metoprolol succinate (TOPROL XL) 25 mg Extended Release 24 hour tablet - Orig Sig - Take 25 mg by mouth daily. Given 05/03/2024 8:08 AM FLASH DRIER OPERATOR 25 mg morphine 4 mg/mL injection 2 mg 2 mg, IV, EVERY 4 HOURS PRN, Starting on Tue05/02/24 at 1508, Until Sushila 05/03/24 at 1801, Pain (See admin instructions), Routine, Post-op - Floor Given 05/03/2024 9:00 AM FLASH DRIER OPERATOR 2 mg Given 05/03/2024 3:37 AM FLASH DRIER OPERATOR 2 mg morphine 4 mg/mL injection 2 mg 2 mg, IV, EVERY 3 HOURS PRN, Starting on Tue05/02/24 at 1508, Until Tue05/03/24 at 1801, Pain (See admin instructions), Routine, Post-op - Floor naloxone (NARCAN) 0.4 mg/mL injection 0.1-0.4 mg 0.1-0.4 mg, IV, SEE ADMIN INSTRUCTIONS, Starting on Tue05/02/24 at 0821, Until Sushila 05/03/24 at 1801, Routine, PACU ondansetron (ZOFRAN) 4 mg/2 mL injection 4 mg 4 mg, IV, EVERY 6 HOURS PRN, Starting on Tue05/02/24 at 1508, Until Tue05/03/24 at 1801, Nausea/Emesis, Routine, Post-op - Floor Given 05/03/2024 8:07 AM FLASH DRIER OPERATOR 4 mg ondansetron (ZOFRAN) 4 mg/2 mL injection 4 mg 4 mg, IV, EVERY 6 HOURS PRN, Starting on Tue05/02/24 at 1508, Until Tue05/03/24 at 1801, Nausea/Emesis, Routine, Post-op - Floor simethicone (MYLICON) 40 mg/0.6 mL drops 40 mg 40 mg, Oral, EVERY 6 HOURS PRN, Starting on Tue05/02/24 at 1508, Until Tue05/03/24 at 1801, Gas, Routine, Post-op - Floor sodium chloride 0.9 % flush bag 25 mL 25 mL, IV, SEE ADMIN INSTRUCTIONS, Starting on Tue05/03/24 at 0013, Until Tue05/03/24 at 1801, Routine sodium chloride 0.9% irrigation solution INTRA-PROCEDURE PRN, Starting on Tue05/02/24 at 1007, Until Tue05/02/24 at 1309, Routine, Intra-op Given 05/02/2024 10:07 AM FLASH DRIER OPERATOR 1,000 mL Oper ative Site sodium chloride flush injection 5 mL 5 mL, IV, EVERY 12 HOURS (BlD), First dose on Tue05/03/24 at 0900, Until Discontinued, Routine sodium chloride flush injection 5 mL 5 mL, IV, SEE ADMIN INSTRUCTIONS, Starting on Tue05/03/24 at 0013, Until Tue05/03/24 at 1801, Routine documented in this encounter Active and Recently Administered Medications Times are shown in FLASH DRIER OPERATOR. Scheduled Medication Order 05/01/2024 05/02/2024 05/03/2024 acetaminophen (OFIRMEV) 10 mg/mL injection 1,000 mg (COMPLETED) 1,000 mg, IV, ONE TIME ONLY, 1 dose, On Tue05/02/24 at 2200, Routine, Post-op - Floor 2231 (New Bag - Provider: Kimberly Bell RN)[id number] (Stopped - Provider: Kimberly Bell RN) acetaminophen (OFIRMEV) 10 mg/mL injection 1,000 mg (COMPLETED) 1,000 mg, IV, ONE TIME ONLY, 1 dose, On Tue05/02/24 at 1600, Routine, Post-op - Floor 1830 (New Bag - Provider: Nanda Darby RN)184 (Stopped - Provider: Nanda Darby RN)184 (Stopped - Provider: Kimberly Bell, RN) acetaminophen (OFIRMEV) 10 mg/mL injection 1,000 mg (COMPLETED) 1,000 mg, IV, ONE TIME ONLY, 1 dose, On Sushila 05/03/24 at 0400, Routine, Post-op - Floor 0403 (New Bag - Prov ider: Kimberly Bell RN)0418 (Stopped - Provider: Kimberly Bell RN) ceFAZolin (ANCEF,KEFZOL) 2,000 mg in sodium chloride 0.9% 50 mL IVPB (MBP) (COMPLETED) 2,000 mg, IV, PRE-PROCEDURE ONCE, 1 dose, Starting on Tue05/02/24 at 0700, Until Tue05/02/24 at 0935, Stat, Pre-op, Antibiotic Indication: Surgical prophylaxis 0930 (New Bag - Provider: Elbert Lujan CRNA)0935 (Stopped - Provider: Elbert Lujan CRNA) ceFAZolin (ANCEF,KEFZOL) 2,000 mg in sodium chloride 0.9% 50 mL IVPB (MBP) (COMPLETED)(Linked Group 1) 2,000 mg, IV, POST-PROCEDURE Q 8 HOURS, 2 doses, First dose on Tue05/02/24 at 1730, Last dose on Tue05/03/24 at 0130, Routine, Post-op - Floor, Antibiotic Indication: Surgical prophylaxis 2120 (New Bag - Provider: Kimberly Bell RN)2151 (Stopped - Provider: Kimberly Bell RN) 0443 (New Bag - Provider: Kimberly Bell RN)0453 (Rate Verify - Provider: Kimberly Bell RN)0513 (Stopped - Provider: Kimberly Bell, RN) dextrose 5 % in water 250 mL flush bag 25 mL 25 mL, IV, SEE ADMIN INSTRUCTIONS, Starting on Sushila 05/03/24 at 0013, Until Sushila 05/03/24 at 1801, Routine famotidine PF (PEPCID) 20 mg/2 mL injection 20 mg (COMPLETED) 20 mg, IV, PRE-PROCEDURE ONCE, 1 dose, Starting on Tue05/02/24 at 0700, Until Tue05/02/24 at 0736, Stat, Pre-op 0736 (Given - Provider: Massimo Lira, AVA) famotidine PF (PEPCID) 20 mg/2 mL injection 20 mg 20 mg, IV, TWO TIMES DAILY, First dose on Tue05/02/24 at 2100, Until Discontinued, Routine, Post-op - Floor 2121 (Given - Provider: Kimberly Bell, RN) 807 (Given - Provider: Tosha iFsher RN) heparin injection 5,000 Units (COMPLETED) 5,000 Units, subCUT, PRE-PROCEDURE ONCE, 1 dose, Starting on Tue05/02/24 at 0700, Until Tue05/02/24 at 0736, Stat, Pre-op 0736 (Given - Provider: Massimo Lira RN) metoprolol succinate (TOPROL XL) SR 24 hour tablet 25 mg 25 mg, Oral, DAILY, First dose on Sushila 05/03/24 at 0900, Until Discontinued, Routine, Previous Med: metoprolol succinate (TOPROL XL) 25 mg Extended Release 24 hour tablet - Orig Sig - Take 25 mg by mouth daily. 807 (Given - Provid er: Tosha Fisher RN) metroNIDAZOLE (FLAGYL) IVPB 500 mg (COMPLETED) 500 mg, IV, ONE TIME ONLY, 1 dose, On Tue05/02/24 at 0715, Stat, Pre-op, Antibiotic Indication: Surgical prophylaxis 816 (New Bag - Provider: Massimo Lira RN)916 (Stopped - Provider: Nanda Darby RN) metroNIDAZOLE (FLAGYL) IVPB 500 mg (COMPLETED)(Linked Group 1) 500 mg, IV, POST-PROCEDURE Q 8 HOURS, 2 doses, First dose on Tue05/02/24 at 1615, Last dose on Sushila 05/03/24 at 0015, Routine, Post-op - Floor, Antibiotic Indication: Surgical prophylaxis 1941 (New Bag - Provider: Nanda Darby RN)2041 (Stopped - Provider: Kimberly Bell, RN) 253 (New Bag - Provider: Kimberly Bell, RN)035 (Stopped - Provider: Kimberly Bell, RN) naloxone (NARCAN) 0.4 mg/mL injection 0.1-0.4 mg 0.1-0.4 mg, IV, SEE ADMIN INSTRUCTIONS, Starting on Tue05/02/24 at 0821, Until Tue05/03/24 at 1801, Routine, PACU ondansetron (ZOFRAN) 4 mg/2 mL injection 4 mg (COMPLETED) 4 mg, IV, ONE TIME ONLY, 1 dose, On Tue05/02/24 at 0815, Routine 0815 (Given - Provider: Massimo Lira, AVA) scopolamine (TRANSDERM-SCOP) 1 mg/72 hr transdermal patch 1 Patch (CANCELED) 1 Patch, Transdermal, ONE TIME ONLY, 1 dose, On Tue05/02/24 at 0715, Stat, Pre-op 0735 (Applied - Provider: Massimo Lira, AVA) 1551 (Due: Removed - Provider: PROVIDER, DISCHARGE PATIENT - Comment: Time automatically adjusted from order being discontinued) sodium chloride 0.9 % flush bag 25 mL 25 mL, IV, SEE ADMIN INSTRUCTIONS, Starting on Sushila 05/03/24 at 0013, Until Sushila 05/03/24 at 1801, Routine sodium chloride 0.9% bolus solution 2,000 mL (COMPLETED) 2,000 mL, IV, PRE-PROCEDURE ONCE, 1 dose, Starting on Tue05/02/24 at 0700, Until Tue05/02/24 at 0833, at 2,000 mL/hr, Administer over 60 Minutes, Stat, Pre-op 0733 (New Bag - Provider: Massimo Lira RN)0833 (Stopped - Provider: Massimo Lira RN) sodium chloride flush injection 5 mL 5 mL, IV, EVERY 12 HOURS (BlD), First dose on Tue05/03/24 at 0900, Until Discontinued, Routine 0900 (Not Given - Provider: Tosha Fisher RN - Reason: Clarify-Other (Comment) - Comment: IV fluids running.) sodium chloride flush injection 5 mL 5 mL, IV, SEE ADMIN INSTRUCTIONS, Starting on Sushila 05/03/24 at 0013, Until Tue05/03/24 at 1801, Routine Continuous Medication Order 05/01/2024 05/02/2024 05/03/2024 BUPivacaine PF (SENSORCAINE MPF) 5 mg/mL (0.5%) 270 mL unilateral fixed rate On-Q pump Infiltration, CONTINUOUS, Starting on Tue05/02/24 at 0815, Until Tue05/03/24 at 1801, 270 mL, Routine, Pre-op, PUMP USE: Incisional Infiltration, FILL CAPACITY: 270-335 mL, LUMEN QTY: Dual Lumen, RATE: ALL OPTIONS EXCEED MAX RECOMMENDED RATE: EXCEED MAX RATE, SPECIFY RATE: 2 mL/hr/lumen (4 mL/hr total) 1319 (New Bag - Provider: Ana Quinones RN) lactated ringers infusion IV, at 200 mL/hr, CONTINUOUS, Starting on Tue05/02/24 at 1515, Until Sushila 05/03/24 at 1801, Routine, Post-op - Floor 1526 (New Bag - Provider: Nanda Darby RN)1830 (Paused - Provider: Kimberly Bell RN)184 (Restarted - Provider: Kimberly Bell RN)194 (Paused - Provider: Kimberly Bell RN)194 (Paused - Provider: Kimberly Bell RN)2044 (Restarted - Provider: Kimberly Bell RN)212 (Stopped - Provider: Kimberly Bell RN)212 (Bag Switched - Provider: Kimberly Bell RN)212 (Paused - Provider: Kimberly Bell RN)215 (Restarted - Provider: Kimberly Bell RN)223 (Paused - Provider: Kimberly Bell RN)2246 (Restarted - Provider: Kimberly Bell RN) 0253 (Stopped - Provider: Kimberly Bell RN)0253 (Bag Switched - Provider: Kimberly Bell RN)0254 (Paused - Provider: Kimberly Bell RN)0354 (Restarted - Provider: Kimberly Bell RN)0403 (Paused - Provider: Kimberly Bell RN)0418 (Restarted - Provider: Kimberly Bell RN)0443 (Stopped - Provider: Kimberly Bell RN)0929 (New Bag - Provider: Tosha Fisher RN) sodium chloride 0.9% infusion (CANCELED) IV, at 30 mL/hr, PRE-PROCEDURE CONTINUOUS, Starting on Tue05/02/24 at 0715, Until Tue05/02/24 at 1502, Routine, Pre-op 0819 (New Bag - Provider: Massimo Lira, AVA)0915 (Paused - Provider: Elbert Lujan CRNA - Comment: Switch to gravity)0916 (Restarted - Provider: Elbert Lujan CRNA)0917 (New Bag - Provider: Elbert Lujan CRNA)1146 (New Bag - Provider: Elbert Lujan CRNA)1301 (Fluid Volume - Provider: Elbert Lujan CRNA) PRN Medication Order 05/01/2024 05/02/2024 05/03/2024 albuterol (PROVENTIL,VENTOLIN) 2.5 mg /3 mL (0.083 %) inhalation solution 2.5 mg 2.5 mg, Inhalation, EVERY 6 HOURS PRN RESPIRATORY, Starting on Tue05/02/24 at 1538, Until Tue05/03/24 at 1801, Shortness of Breath, Routine BUPivacaine PF (SENSORCAINE MPF) 5 mg/mL (0.5%) injection (CANCELED) INTRA-PROCEDURE PRN, Starting on Tue05/02/24 at 1006, Until Tue05/02/24 at 1309, Routine, Intra-op 1006 (Given - Provider: Lilo Basilio MD) cloNIDine HCL (CATAPRES) tablet 0.1 mg 0.1 mg, Oral, EVERY 8 HOURS PRN, Starting on Tue05/02/24 at 1556, Until Sushila 05/03/24 at 1801, Blood Pressure, Blood pressure, Routine diphenhydrAMINE (BENADRYL) injection 25 mg 25 mg, IV, EVERY 6 HOURS PRN, Starting on Tue05/02/24 at 1508, Until Sushila 05/03/24 at 1801, Itching, Routine, Post-op - Floor HYDROcodone-acetaminophen 2.5-108 mg/5 mL oral solution 15 mL 15 mL (7.5 mg), Oral, EVERY 4 HOURS PRN, Starting on Tue05/03/24 at 1000, Until Sushila 05/03/24 at 1801, Pain (See admin instructions), Routine, Post-op - Floor HYDROcodone-acetaminophen 2.5-108 mg/5 mL oral solution 15 mL 15 mL (7.5 mg), Oral, EVERY 4 HOURS PRN, Starting on Tue05/03/24 at 1000, Until Sushila 05/03/24 at 1801, Pain (See admin instructions), Routine, Post-op - Floor HYDROmorphone (PF) (DILAUDID) injection 0.3 mg 0.3 mg, IV, EVERY 4 HOURS PRN, Starting on Tue05/02/24 at 1508, Until Sushila 1224 at 1801, Pain (See admin instructions), Routine, Post-op - Floor lactated ringers irrigation solution (CANCELED) INTRA-PROCEDURE PRN, Starting on Tue05/02/24 at 1007, Until Tue05/02/24 at 1309, Intra-op 1007 (Given - Provider: Lilo Basilio MD) metoclopramide (REGLAN) 5 mg/mL injection 10 mg 10 mg, IV, EVERY 6 HOURS PRN, Starting on Tue05/02/24 at 1508, Until Sushila 12 at 1801, Nausea/Emesis, Routine, Post-op - Floor morphine 4 mg/mL injection 2 mg 2 mg, IV, EVERY 4 HOURS PRN, Starting on Tue05/02/24 at 1508, Until Sushila 12 at 1801, Pain (See admin instructions), Routine, Post-op - Floor 0337 (Given - Provid er: Kimberly Bell RN)0900 (Given - Provider: Tosha Fisher RN) morphine 4 mg/mL injection 2 mg 2 mg, IV, EVERY 3 HOURS PRN, Starting on Tue05/02/24 at 1508, Until Sushila 12 at 1801, Pain (See admin instructions), Routine, Post-op - Floor ondansetron (ZOFRAN) 4 mg/2 mL injection 4 mg 4 mg, IV, EVERY 6 HOURS PRN, Starting on Tue05/02/24 at 1508, Until Sushila 1224 at 1801, Nausea/Emesis, Routine, Post-op - Floor 0807 (Given - Provid er: Tosha Fisher RN) ondansetron (ZOFRAN) 4 mg/2 mL injection 4 mg 4 mg, IV, EVERY 6 HOURS PRN, Starting on Tue05/02/24 at 1508, Until Sushila 1224 at 1801, Nausea/Emesis, Routine, Post-op - Floor simethicone (MYLICON) 40 mg/0.6 mL drops 40 mg 40 mg, Oral, EVERY 6 HOURS PRN, Starting on Tue05/02/24 at 1508, Until Sushila 05/03/24 at 1801, Gas, Routine, Post-op - Floor sodium chloride 0.9% irrigation solution (CANCELED) INTRA-PROCEDURE PRN, Starting on Tue05/02/24 at 1007, Until Tue05/02/24 at 1309, Routine, Intra-op 1007 (Given - Provider: Lilo Basilio MD) Linked Groups Order Group 1: ceFAZolin (ANCEF,KEFZOL) 2,000 mg in sodium chloride 0.9% 50 mL IVPB (MBP) (COMPLETED)Jump to med 2,000 mg, IV, POST-PROCEDURE Q 8 HOURS, 2 doses, First dose on Tue05/02/24 at 1730, Last dose on Sushila 05/03/24 at 0130, Routine, Post-op - Floor, Antibiotic Indication: Surgical prophylaxis And metroNIDAZOLE (FLAGYL) IVPB 500 mg (COMPLETED)Jump to med 500 mg, IV, POST-PROCEDURE Q 8 HOURS, 2 doses, First dose on Tue05/02/24 at 1615, Last dose on Sushila 05/03/24 at 0015, Routine, Post-op - Floor, Antibiotic Indication: Surgical prophylaxis documented in this encounter Care Teams Crinkling Machine Operator Relationship Specialty Start Date End Date Puneet Hughes MD [address] [place] [address] PCP - General Internal Medicine 01/03/24 documented as of this encounter
--- OUTSIDE RECORDS SUMMARY | 2024-05-22 05:50 | XMS_ITS | Encounter Summary ---
Author Organization [facility] Address [address] [place]: Epic Prelude ADT [place] [address] Care Team Providers Care Airport Control Operator Name Role Phone Puneet Hughes MD Primary Care Provider [phone] Encounter Details Date Type Department Care Team (Latest Contact Info) Description 05/02/2024 Travel Social History Tobacco Use Types Packs/Day [...] on filedocumented in this encounter Care Teams Airport Control Operator Relationship Specialty Start Date End Date Puneet Hughes MD [address] [place] [address] PCP - General Internal Medicine 01/03/24 documented as of this encounter
--- OUTSIDE RECORDS SUMMARY | 2024-05-22 05:50 | XMS_ITS | Encounter Summary ---
Author Organization [facility] Address [address] [place] [address] Care Team Providers Care Faculty Administrator Name Role Phone Puneet Hughes MD Primary Care Provider [phone] Encounter Details Date Type Department Care Team (Late st Contact Info) Description 03/06/2024 External Device Data [facility] ABSTRACTION Provider, Abstract NO ADDRESS ON FILE Social History Tobacco Use Types Packs/Day Years Used Date Smoking Tobacco: Never Smokeless Tobacco: Never Alcohol Use Standard Drinks/Week Comments Yes 0 (1 standard drink = 0.6 oz pur e alcohol) Feeling Safe Answer Date Recorded Are you in a relationship wi th someone who hurts you emotionally and/or physically? No 03/02/2024 Sex and Gender Information Value Date Recorded Sex Assigned at Not on file Gender Identity Not on file Sexual Orientation Not on file documented as of this encounter Plan of Treatment Not on file documented as of this encounter Visit Diagnoses Not on filedocumented in this encounter Care Teams Faculty Administrator Relationship Specialty Start Date End Date Puneet Hughes MD [address] [place] [address] PCP - General Internal Medicine 01/03/24 documented as of this encounter
--- OUTSIDE RECORDS SUMMARY | 2024-05-22 05:50 | XMS_ITS | Encounter Summary ---
Author Organization [facility] Address [address] [place] [address] Care Team Providers Care Scuba Dive Training Instructor Name Role Phone Puneet Hughes MD Primary Care Provider [phone] Reason for Visit * Auth/Cert (Routine) Specialty Diagnoses / Procedures Referred By Contjhonny t Referred To Contact Perioperative Diagnoses Diaphragmatic hernia Morbid (severe) obesity due to excess calories Procedures TN LAPS RPR PARAESPHGL HRNA INCL FUNDPLSTY W/O MESH TN LAPS GSTR RSTCV PX W/BYP HARSHA-EN-Y LIMB <150 CM HERNIA HIATAL REPAIR LAPAROSCOPIC PEH REPAIR GASTRIC [place] [address] [place] [address] [place] [address] Jen Operating Room [address] [place] [phone] Referral ID Status Reason Start Date Expiration Date Visits Re quested Visits Authorized [id number] 1 1 Encounter Details Date Type Department Care Team (Latest Contact Info) Description 05/02/2024 6:38 AM MANAGER STUDIO - 05/03/2024 3:51 PM MANAGER STUDIO Hospital Encounter [facility] [address] [place] [phone] [place] [address] [place] [address] [place] [address] Gavin Pitts MD [address] [place] [address] Agusto Montoya MD [address] [place] [address] NEIL Rodriguez [phone] Severe obesity (BMI 35.0-39.9) with comorbidity Discharge Disposition: Home or Self Care Social [...] Comments Blood Pressure 147/76 05/03/2024 11:33 AM MANAGER STUDIO RN notified Pulse 61 05/03/2024 11:33 AM MANAGER STUDIO Temperature 36.6 ??C (97.8 ??F) 05/03/2024 11:[address] Respiratory Rate 18 05/03/2024 11:33 AM MANAGER STUDIO Oxygen Saturation 96% 05/03/2024 11:33 AM MANAGER STUDIO Inhaled Oxygen Concentration - - Weight 131.5 kg (290 lb) 05/02/2024 3:02 PM MANAGER STUDIO Height 185.4 cm (6' 1 ) 05/02/2024 3:02 PM MANAGER STUDIO Body Mass Index 38.26 05/02/2024 3:02 PM MANAGER STUDIO documented in this encounter Discharge Summaries * Aby Ferris, SIMONE - 05/03/2024 8:25 AM CST [facility] Adult Hospitalist Discharge Summary Howie Delaney 58 y.o. male 1965 CSN: [id number] Date of Admission: 05/02/2024 Date of Discharge: [...] Your Medications These medications were sent to [facility] [address], [address], [place] [address] Hours: Tuesday - Tuesday: 7:30 am - [...] Signed: Aby Ferris DNP 05/03/2024, 8:25 AM GER STUDIO documented in this encounter Discharge Instructions * Discharge Instructions* Aby Ferris DNP - 05/02/2024 3:34 PM MANAGER STUDIO MEDICATIONS: Zofran Hycet Home Medications: Acetaminophen (Tylenol) 3235 mg [...] or less than 60. Date AM PM GER STUDIO documented in this encounter Medications at Time [...] questions but he didn't ask any questions. GER STUDIO * Lilo Basilio MD - 05/03/2024 8:45 [...] 1 Patch 1 Patch Transdermal ONE time onlyShmuel Guerra MD 1 Patch at 05/02/24 6271 [COMPLETED] ceFAZolin (ANCEF,KEFZOL) 2,000 mg in sodium chloride 0.9% 50 mL IVPB (MBP) 2,000 mg IV pre-proc one time Lilo Basilio MD Stopped at 05/02/24 0935 [COMPLETED] metroNIDAZOLE (FLAGYL) IVPB 500 mg 500 mg IV ONE time only Lilo Basilio MD Stopped at 05/02/24 0917 BUPivacaine PF (SENSORCAINE MPF) 5 mg/mL (0.5%) 270 mL unilateral fixed rate On- Q pump Infiltrationcontinuous Lilo Basilio MD 4 mL/hr at 05/02/24 1319 4 [...] every 6 hours PRN Lilo Basilio MD ondansetron (ZOFRAN) [...] injection IV intra-proc PRN Lujan, Elbert K, ELECTRICAL LINE SPLICER 2 mg at 05/02/24 0912 [DISCONTINUED] fentaNYL PF (SUBLIMAZE) 50 mcg/mL injection IV intra-proc PRN Lujan, Elbert K, ELECTRICAL LINE SPLICER 25 mcg at 05/02/24 1305 [DISCONTINUED] lidocaine PF 2% (XYLOCAINE MPF) injection IV intra-proc PRN Lujan, Elbert K, ELECTRICAL LINE SPLICER 2.5 mL at 05/02/24 0924 [DISCONTINUED] propofoL (DIPRIVAN) injection IV intra-proc PRN Lujan, Elbert K, ELECTRICAL LINE SPLICER 25 mcg/kg/min at 05/02/24 1249 [DISCONTINUED] rocuronium injection IV intra-proc PRN Lujan, Elbert K, ELECTRICAL LINE SPLICER 10 mg at 05/02/24 1159 [DISCONTINUED] lidocaine 2 % (XYLOCAINE) injection IV intra-proc continuous PRN Lujan, Elbert K, ELECTRICAL LINE SPLICER Stopped at 05/02/24 1254 [DISCONTINUED] dexmedeTOMIDine in NS (PRECEDEX) 400 mcg/100 mL (4 mcg/mL) infusion IV intra-proc continuous PRN Lujan, Elbert K, ELECTRICAL LINE SPLICER Stopped at 05/02/24 1254 [DISCONTINUED] norepinephrine (LEVOPHED) 4 mg in dextrose 5% 250 mL infusion IV intra-proc continuous PRN Lujan, Elbert K, ELECTRICAL LINE SPLICER 4 mcg at 05/02/24 1220 [DISCONTINUED] glycopyrrolate (ROBINUL) injection IV intra-proc PRN Lujan, Elbert K, ELECTRICAL LINE SPLICER 0.2 mg at 05/02/24 1007 [DISCONTINUED] phenylephrine syringe IV intra-proc PRN Lujan, Elbert K, ELECTRICAL LINE SPLICER 100 mcg at 05/02/24 1133 [DISCONTINUED] ondansetron (ZOFRAN) 4 mg/2 mL injection IV intra-proc PRN Lujan, Elbert K, ELECTRICAL LINE SPLICER 4 mg at 05/02/24 1233 [DISCONTINUED] sugammadex (BRIDION) 100 mg/mL injection IV intra-proc PRN Lujan, Elbert K, ELECTRICAL LINE SPLICER 275 mgat 05/02/24 1240 Objective: Physical Exam: [...] intake,incentive spirometry and need for maintaining mobility. GER STUDIO * Sunshine Contreras RN - 04/26/2024 8:27 AM CST Spoke to patient via phone to obtain his CPAP settings and they are set between 11 and 20. Patient asked to bring his home CPAP machine, mask and hoses with him on the day of his Bariatric surgery which is scheduled for 05/02/24. GER STUDIO * Rosey Henson PHARMACIST - 04/25/2024 8:24 [...] tablet- dissolve in mouth R Elaine Henson GER STUDIO documented in this encounter H&P Notes * [...] SURGERY Artificial urinary sphincter-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 catheterized TN EGD TRANSORAL BIOPSY SINGLE/MULTIPLE N/A 03/02/2024 ESOPHAGOGASTRODUODENOSCOPY performed by Lilo Basilio MD at [facility] ENDOSCOPY TN LAPS GSTRC RSTRICTIV PX LONGITUDINAL GASTRECTOMY N/A 08/04/2020 SLEEVE GASTRECTOMY performed by Kelvin Woods MD at [facility] OR Medications Prior to Admission Medication Sig [...] significant clinical changes since the completion of theove H&P. Patient identified by surgeon and surgical site confirmed by patient and surgeon. 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 Morbid [...] coordination of care. [facility] We will gladly follow the patient throughout their stay. Aby Ferris DNP This note was transcribed using Speech Recognition software. May contain unintended grammar and spelling errors. If there are any questions or major errors, please contact me. GER STUDIO documented in this encounter OR Notes * [...] Upper GI endoscopy. SURGEON: Lilo Basilio MD MEDICAL PRACTICE ADMINISTRATOR: Gavin Pitts MD Preoperative Diagnosis: 1. Severe [...] measured and the bowel was transected witha CanoP linear stapler. The mesentery was divided with [...] Once this was done I made the certified medical coding specialist to insert a calibration tube.The gastric pouch [...] sent for pathology. At this time the certified medical coding specialist inserted the Lyndon 21 mm anvil into [...] recovery room awake and in stable condition. GER STUDIO * Jessie-OP - Leonela Lombardi RN - 05/02/2024 10:25 AM CST ST[employer] LO[employer] [id number] LOT# [id number] EXP. 01/20/29 ST[employer]LE LOADS [id number] LOT# [id number] EXP. 12/20/28, LOT# EXP. 11/19/28 AND LOT# [id number] EXP. 11/19/28 GER STUDIO * Jessie-OP - Leonela Lombardi RN - 05/02/2024 9:16 AM CST IDENTIFIED VERBALLY/WRIST BAND AND PER DATE. PROCEDURE VERIFIED AND CONSENT NOTED. SEEN PER SURGEON. ASSISTED TO BATHROOM PRIOR TO COMING TO OR. TO OR PER CART. TRANSFERRED TO OR TABLE PER HOVER MAT. POSITIONED FOR SAFETY AND COMFORT. TIME OUT AND FIRE SAFETY DONE. GER STUDIO documented in this encounter Miscellaneous Notes * [...] discharge or maintain baseline function Outcome: Progressing GER STUDIO * Care Plan - Kimberly Lu RN [...] 5.Intraoperative Upper GI endoscopy. RICKI Scott, RN, Hay Stacker [facility] Care Management GER STUDIO * Care Plan - Kimberly Bell RN [...] discharge or maintain baseline function Outcome: Variance GER STUDIO * Treatment Plan - Kimberly Bell RN - 05/03/2024 12:13 AM CST Images from the original note were not included. GER STUDIO * Treatment Plan - Azeb Loo RN [...] Hour One Blood administration and vital signs METAL BUFFER medication administration Per nurse's discretion based on patient's condition. Clinical Aldie Withdrawal Assessment (CIWA) patients Clinical Opiate Withdrawal Scale Rule out CVA patients Nursing Communication: If NEWS2 score is less than or equal to 4, two hours prior to 0001, nursing will hold the standard vital signs between 2300 and 0400. Standard Vital Signs will resume at 0400. Nursing Order by protocol to be placed: Enter the order in [facility] under EHM211 Nursing Communication (aka Miscellaneous) with the following comment: Hold 2300 to 0400 Standard Vital Sign if NEWS2 Score is less than or equal to 4 while admitted to Medical/Surgical GER STUDIO * Care Plan - Ana Quinones RN - 05/02/2024 2:49 PM CST Potential for pain related to surgical/procedural intervention Interventions: Assess level of pain/comfort utilizing verbal/nonverbal pain scales; assess culturalor druze indicators attached to pain; administer pain medications as prescribed; utilize non-pharmacologic pain control and comfort measures Expected Outcome: Patient demonstrates and reports adequate pain control Outcome Met: Pt denies discomfort at this time. GER STUDIO * Treatment Plan - Massimo Lira RN [...] pre op protocols, questions answered, verbalized understanding. GER STUDIO documented in this encounter Plan of Treatment Not on file documented as of this encounter Procedures Procedure Name Priority Date/Time Associated Diagnosis Comments HEMOGLOBIN AND HEMATOCRIT Routine 05/03/2024 1:01 PM MANAGER STUDIO DIFFERENTIAL, MANUAL Routine 05/03/2024 5:15 AM MANAGER STUDIO CBC WITH DIFFERENTIAL Routine 05/03/2024 5:15 AM MANAGER STUDIO BASIC METABOLIC PANEL Routine 05/03/2024 5:15 AM MANAGER STUDIO HEMOGLOBIN AND HEMATOCRIT Routine 05/02/2024 7:52 PM MANAGER STUDIO HEMOGLOBIN AND HEMATOCRIT Routine 05/02/2024 3:38 PM MANAGER STUDIO PATHOLOGY Pathology 05/02/2024 12:36 PM MANAGER STUDIO Diaphragmatic hernia Morbid (severe) obesity due to excess calories TN LAPS GSTR RSTCV PX W/BYP HARSHA-EN-Y LIMB <150 CM 05/02/2024 8:14 AM MANAGER STUDIO Diaphragmatic hernia Morbid (severe) obesity due to excess calories BASIC METABOLIC PANEL Routine 05/02/2024 7:28 AM MANAGER STUDIO documented in this encounter Results * (ABNORMAL) HEMOGLOBIN AND HEMATOCRIT (05/03/2024 1:01 PM MANAGER STUDIO) Pathologist [facility] HEMOGLOBIN 11.9(L) 13.5 - 17.0 g/dL 05/03/2024 1:[address] [facility] [place] HEMATOCRIT 37.9(L) 40.0 - 54.0 % 05/03/2024 1:09 [address]GER STUDIO [facility] Blood Venipuncture / Unknown 05/03/2024 1:01 PM MANAGER STUDIO 05/03/2024 1:08 PM MANAGER STUDIO Lilo Basilio MD [facility]OLOGY [facility]AB [facility] CLIA # [id number] [address] [place] [address] * MANUAL DIFFERENTIAL (05/03/2024 5:15 AM MANAGER STUDIO) Pathologist [facility] PLATELET EST. Adequate 05/03/2024 5:53 AM MANAGER STUDIO [facility] ANISOCYTOSIS 1+ /hpf 05/03/2024 5:53 AM MANAGER STUDIO [facility] POIKILOCYTES 1+ /hpf 05/03/2024 5:53 AM MANAGER STUDIO [facility] MACROCYTES 1+ /hpf 05/03/2024 5:53 AM MANAGER STUDIO [facility] STOMATOCYTES Present /hpf 05/03/2024 5:53 AM MANAGER STUDIO [facility] Blood Venipuncture / Unknown 05/03/2024 5:15 AM MANAGER STUDIO 05/03/2024 5:23 AM MANAGER STUDIO Lilo Basilio MD HEMATOLOGY ORDERAB LES [facility] CLIA # [id number] [facility] [address] [place] [address] * (ABNORMAL) BASIC METABOLIC PANEL (05/03/2024 5:15 AM [facility]) SODIUM 140 136 - 145 mmol/L 05/03/2024 6:03 AM [facility] POTASSIUM 5.1 3.5 - 5.1 mmol/L 05/03/2024 6:03 AM [facility] Comment:Moderate hemolysis p resent. Can cause significant falsely elevated result. Redraw if indicated. CHLORIDE 111(H) 98 - 107 mmol/L 05/03/2024 6:03 AM [facility] CO2 22 22 - 29 mmol/L 05/03/2024 6:03 AM [facility] CALCIUM 8.0(L) 8.6 - 10.0 mg/dL 05/03/2024 6:03 AM [facility] BUN 15 6 - 20 mg/dL 05/03/2024 6:03 AM [facility] CREATININE 1.04 0.67 - 1.17 mg/dL 05/03/2024 6:03 AM [facility] GLUCOSE 93 74 - 99 mg/dL 05/03/2024 6:03 AM [facility] GFR >60 >=60 mL/min/1.7 3 sq meter 05/03/2024 6:03 AM [facility] Comment:eGFR calculated with 2020 CKD-EPI equation. Vegetarian diet, extremely high or low muscle mass, and may affect results. Cystatin C with Glomerular Filtration Rate is a suitable alternative for these patients. ANION GAP 7 5 - 15 mmol/L 05/03/2024 6:03 AM [facility] Blood Venipuncture / Unknown 05/03/2024 5:15 AM MANAGER STUDIO 05/03/2024 5:35 AM [facility] Lilo Basilio MD CHEMISTRY ORDERABL ES [facility] CLIA # [id number] [facility] [address] [place] [id number] * (ABNORMAL) CBC WITH DIFFERENTIAL (05/03/2024 5:15 AM MANAGER STUDIO) [facility] WBC 10.5 4.0 - 11.0 K/uL 05/03/2024 5:53 AM [facility] [place] RBC 4.00(L) 4.60 - 6.20 M/uL 05/03/2024 5:53 AM [facility] [place] HEMOGLOBIN 11.7(L) 13.5 - 17.0 g/dL 05/03/2024 5:53 AM [facility] [place] HEMATOCRIT 37.5(L) 40.0 - 54.0 % 05/03/2024 5:53 AM [facility] [place] MCV 93.8 80.0 - 98.0 fL 05/03/2024 5:53 AM [facility] MCH 29.3 26.0 - 34.0 pg 05/03/2024 5:53 AM [facility] MCHC 31.2 31.0 - 37.0 g/dL 05/03/2024 5:53 AM [facility] RDW 16.9(H) 11.5 - 14.5 % 05/03/2024 5:53 AM [facility] [place] RDW-STDEV 58.8(H) 34.0 - 54.0 fL 05/03/2024 5:53 AM [facility] [place] PLATELETS 172 150 - 400 K/uL 05/03/2024 5:53 AM [facility] MPV 12.4 8.5 - 12.5 fL 05/03/2024 5:53 AM [facility] [employer] [facility] [place] NEUTROPHILS 79(H) 50 - 70 % 05/03/2024 5:53 AM MANAGER STUDIO [facility] [place] LYMPHOCYTES 12(L) 20 - 40 % 05/03/2024 5:53 AM [facility] MONOCYTES 7 2 - 8 % 05/03/2024 5:53 AM MANAGER STUDIO [facility] EOSINOPHILS 2 1 - 3 % 05/03/2024 5:53 AM MANAGER STUDIO [facility] BASOPHILS 0 0 - 1 % 05/03/2024 5:[address] MANAGER STUDIO [facility] [place] IMMATURE GRANULOCYTES 0 0 - 2 % 05/03/2024 5:53 AM MANAGER STUDIO [facility] [place] NEUTROPHIL ABSOLUTE 8.26(H) 1.80 - 7.70 K/uL 05/03/2024 5:53 AM MANAGER STUDIO [facility] [place] LYMPHOCYTE ABSOLUTE 1.24 1.00 - 3.30 K/uL 05/03/2024 5:53 AM MANAGER STUDIO [facility] MONOCYTE ABSOLUTE 0.77 0.00 - 0.80 K/uL 05/03/2024 5:53 AM MANAGER STUDIO [facility] EOSINOPHIL ABSOLUTE 0.19 0.00 - 0.45 K/uL 05/03/2024 5:53 AM MANAGER STUDIO [facility] [place] BASOPHILS ABSOLUTE 0.04 0.00 - 0.20 K/uL 05/03/2024 5:53 AM MANAGER STUDIO [facility] IMMATURE GRANULOCYTES ABSOLUTE 0.02 0.00 - 0.31 K/uL 05/03/2024 5:53 AM MANAGER STUDIO [facility] Blood Venipuncture / Unknown 05/03/2024 5:15 AM MANAGER STUDIO 05/03/2024 5:23 AM MANAGER STUDIO Lilo Basilio MD HEMATOLOGY ORDERAB LES [facility] CLIA # [id number] [address] [place] [address] * (ABNORMAL) HEMOGLOBIN AND HEMATOCRIT (05/02/2024 7:52 PM MANAGER STUDIO) [facility] HEMOGLOBIN 12.3(L) 13.5 - 17.0 g/dL 05/02/2024 8:13 [address]GER STUDIO [facility] [place] HEMATOCRIT 40.0 40.0 - 54.0 % 05/02/2024 8:13 PM MANAGER STUDIO [employer] [facility] Blood Venipuncture / Unknown 05/02/2024 7:52 PM MANAGER STUDIO 05/02/2024 8:12 PM MANAGER STUDIO Lilo Basilio MD HEMATOLOGY ORDERAB LES [facility] [id number] [address] [place] [id number] * (ABNORMAL) HEMOGLOBIN AND HEMATOCRIT (05/02/2024 3:38 PM MANAGER STUDIO) HEMOGLOBIN 13.4(L) 13.5 - 17.0 g/dL 05/02/2024 3:[address] ST[address]IO [facility] [place] HEMATOCRIT 43.8 40.0 - 54.0 % 05/02/2024 3:44 PM MANAGER STUDIO [facility] Blood Venipuncture / Unknown 05/02/2024 3:38 PM MANAGER STUDIO 05/02/2024 3:43 PM MANAGER STUDIO Lilo Basilio MD HEMATOLOGY ORDERAB LES Performing Organization Address [facility] Co de Phone Number [facility] CLIA # [id number] [address] [place] [address] * PATHOLOGY (05/02/2024 12:36 PM MANAGER STUDIO) CASE REPORT Surgical Pathology Report ? Case: [id number] ? Authorizing Provider: ??Lilo Basilio MD ?Collected: ? 05/02/2024 12:36 PM ? Ordering Location: ? [facility] ?? Received: ?05/03/2024 10:55 AM ? Operating Room ? Pathologist: ? Nicolas Moura MD ? Specimen: ?Stomach, portion of ? 05/07/2024 7:53 AM [facility] FINAL DIAGNOSIS Gastric, partial gastrectomy -Thickened gastric wall and focal chronic inflammation -See description 05/07/2024 7:53 AM [facility] S DESCRIPTION Received in a formalin container labeled with patient's name and stomach portion of is a segment of stomach, 5.8 x 3.4 x 2.4 cm. It is closed with a row of metal shannan. The specimen is opened to show a small amount of submucosal hemorrhage. Group Sales Representative sections are submitted in 3 cassettes. 05/07/2024 7:53 AM [facility] MICROSCOPIC DESCRIPTION Sections from the partial gastrectomy specimen show partially tangential cuts of gastric mucosa and wall. The sections show a focally thickened muscular gastric wall and mucosa demonstrating occasional chronic inflammatory cells though these are not markedly increased. Some extravasated peripheral blood elements are present though this is presumed procedure related. Clinical correlation and continued follow-up are recommended. 05/07/2024 7:53 AM [facility] OPERATIVE PROCEDURE 1: GASTRIC BYPASS LAPAROSCOPIC 05/07/2024 7:53 AM [facility] CLINICAL INFORMATION Diaphragmatic hernia [K44.9] Morbid (severe) obesity due to excess calories [E66.01] K44.9-Diaphragmat ic hernia E66.01-Morbid (severe) obesity due to excess calories 05/07/2024 7:53 AM [facility] LABORATORY [facility] Tissue ENTIRE STOMACH / Unknown Collection / Unknown 05/02/2024 12:36 PM MANAGER STUDIO 05/03/2024 10:55 AM MANAGER STUDIO Lilo Basilio MD PATHOLOGY/CYTOLOGY ORDERABLES [facility] CLIA # [id number] [address] [place] [address] * (ABNORMAL) BASIC METABOLIC PANEL (05/02/2024 7:28 AM MANAGER STUDIO) SODIUM 142 136 - 145 mmol/L 05/02/2024 7:58 AM [facility] Body [facility] POTASSIUM 3.8 3.5 - 5.1 mmol/L 05/02/2024 7:58 AM [facility] Body [facility] Soul [facility] CHLORIDE 106 98 - 107 mmol/L 05/02/2024 7:58 AM [facility] Body [facility] Soul [facility] CO2 26 22 - 29 mmol/L 05/02/2024 7:58 AM [facility] Body [facility] CALCIUM 9.4 8.6 - 10.0 mg/dL 05/02/2024 7:58 AM [facility] BUN 20 6 - 20 mg/dL 05/02/2024 7:58 AM [facility] CREATININE 1.33(H) 0.67 - 1.17 mg/dL 05/02/2024 7:58 AM [facility] Body [facility] Soul [facility] GLUCOSE 104(H) 74 - 99 mg/dL 05/02/2024 7:58 AM [facility] GFR >60 >=60 mL/min/1.7 3 sq meter 05/02/2024 7:58 AM [facility] Body & Soul [facility] Comment:eGFR calculated with 2020 CKD-EPI equation. Vegetarian diet, extremely high or low muscle mass, and may affect results. Cystatin C with Glomerular Filtration Rate is a suitable alternative for these patients. ANION GAP 10 5 - 15 mmol/L 05/02/2024 7:58 AM [facility] Body [facility] Soul [facility] Blood Venipuncture / Unknown 05/02/2024 7:28 AM MANAGER STUDIO 05/02/2024 7:43 AM MANAGER STUDIO Shmuel Guerra MD CHEMISTRY ORDERABLES [facility] LEIGH # [id number] [facility] [address] [place] [phone] documented in this encounter Visit Diagnoses Diagnosis Severe obesity (BMI 35.0-39.9) with comorbidity- Primary Diaphragmatic hernia Diaphragmatic hernia without mention of obstruction or gangrene Morbid (severe) obesity due to excess calories Postoperative nausea Other specified complications Postoperative pain Other acute postoperative pain Hypertension Unspecified essential hypertension Hyperlipidemia Other and unspecified hyperlipidemia Obstructive sleep apnea Obstructive sleep apnea (adult) (pediatric) Cervical stenosis of spine Spinal stenosis in cervical region General medical exam Unspecified general medical examination documented in this encounter Administered Medications Inactive Administered Medications - up to 3 most recent administrations Medication Order MAR Action Action Date Dose Rate Site acetaminophen (OFIRMEV) 10 mg/mL injection 1,000 mg 1,000 mg, IV, ONE TIME ONLY, 1 dose, On Tue05/02/24 at 2200, Routine, Post-op - Floor New Bag 05/02/2024 10:31 PM MANAGER STUDIO 1,000 mg 400 mL/hr acetaminophen (OFIRMEV) 10 mg/mL injection 1,000 mg 1,000 mg, IV, ONE TIME ONLY, 1 dose, On Tue05/02/24 at 1600, Routine, Post-op - Floor New Bag 05/02/2024 6:30 PM MANAGER STUDIO 1,000 mg 400 mL/hr acetaminophen (OFIRMEV) 10 mg/mL injection 1,000 mg 1,000 mg, IV, ONE TIME ONLY, 1 dose, On Tue05/03/24 at 0400, Routine, Post-op - Floor New Bag 05/03/2024 4:03 AM MANAGER STUDIO 1,000 mg 400 mL/hr albuterol (PROVENTIL,VENTOLIN) 2.5 mg /3 mL (0.083 [...] mL/hr total) New Bag 05/02/2024 1:19 PM MANAGER STUDIO 4 mL/hr 4 mL/hr ceFAZolin (ANCEF,KEFZOL) 2,000 mg in sodium chloride 0.9% 50 mL IVPB (MBP) 2,000 mg, IV, POST-PROCEDURE Q 8 HOURS, 2 doses, First dose on Tue05/02/24 at 1730, Last dose on Tue05/03/24 at 0130, Routine, Post-op - Floor, Antibiotic Indication: Surgical prophylaxis Rate Verify 05/03/2024 4:53 AM MANAGER STUDIO 118 mL/hr New Bag 05/03/2024 4:43 AM MANAGER STUDIO 2,000 mg 118 mL/hr New Bag 05/02/2024 9:21 PM MANAGER STUDIO 2,000 mg 118 mL/hr cloNIDine HCL (CATAPRES) tablet 0.1 mg 0.1 mg, Oral, EVERY 8 HOURS PRN, Starting on Tue05/02/24 at 1556, Until Tue05/03/24 at 1801, Blood Pressure, Blood pressure, Routine dextrose 5 % in water 250 mL flush bag 25 mL 25 mL, IV, SEE ADMIN INSTRUCTIONS, Starting on Tue05/03/24 at 0013, Until Tue05/03/24 at 1801, Routine diphenhydrAMINE (BENADRYL) injection 25 mg 25 mg, IV, EVERY 6 HOURS PRN, Starting on Tue05/02/24 at 1508, Until Tue05/03/24 at 1801, Itching, Routine, Post-op - Floor famotidine PF (PEPCID) 20 mg/2 mL injection 20 mg 20 mg, IV, PRE-PROCEDURE ONCE, 1 dose, Starting on Tue05/02/24 at 0700, Until Tue05/02/24 at 0736, Stat, Pre-op Given 05/02/2024 7:36 AM MANAGER STUDIO 20 mg famotidine PF (PEPCID) 20 mg/2 mL injection 20 mg 20 mg, IV, TWO TIMES DAILY, First dose on Tue05/02/24 at 2100, Until Discontinued, Routine, Post-op - Floor Given 05/03/2024 8:08 AM MANAGER STUDIO 20 mg Given 05/02/2024 9:22 PM MANAGER STUDIO 20 mg heparin injection 5,000 Units 5,000 Units, subCUT, PRE-PROCEDURE ONCE, 1 dose, Starting on Tue05/02/24 at 0700, Until Tue05/02/24 at 0736, Stat, Pre-op Given 05/02/2024 7:36 AM MANAGER STUDIO 5,000 Units Abdomen, Right Lower Quadrant HYDROcodone-acetamino phen 2.5-108 mg/5 mL oral solution 15 mL 15 mL (7.5 mg), Oral, EVERY 4 HOURS PRN, Starting on Tue05/03/24 at 1000, Until Sushila 05/03/24 at 1801, Pain (See admin instructions), Routine, Post-op - Floor HYDROcodone-acetamino phen 2.5-108 mg/5 mL oral solution 15 mL 15 mL (7.5 mg), Oral, EVERY 4 HOURS PRN, Starting on Tue05/03/24 at 1000, Until Tue05/03/24 at 1801, Pain (See admin [...] - Floor New Bag 05/03/2024 9:29 AM MANAGER STUDIO 200 mL/hr Restarted 05/03/2024 4:18 AM MANAGER STUDIO 200 mL/hr Restarted 05/03/2024 3:54 AM MANAGER STUDIO 200 mL/hr metoclopramide (REGLAN) 5 mg/mL injection 10 mg [...] by mouth daily. Given 05/03/2024 8:08 AM MANAGER STUDIO 25 mg metroNIDAZOLE (FLAGYL) IVPB 500 mg 500 mg, IV, ONE TIME ONLY, 1 dose, On Tue05/02/24 at 0715, Stat, Pre-op, Antibiotic Indication: Surgical prophylaxis [facility] 05/02/2024 8:17 AM MANAGER STUDIO 500 mg 100 mL/hr metroNIDAZOLE (FLAGYL) IVPB 500 mg 500 mg, IV, POST-PROCEDURE Q 8 HOURS, 2 doses, First dose on Tue05/02/24 at 1615, Last dose on Tue05/03/24 at 0015, Routine, Post-op - Floor, Antibiotic Indication: Surgical prophylaxis [facility] 05/03/2024 2:54 AM MANAGER STUDIO 500 mg 100 mL/hr New Bag 05/02/2024 7:42 PM MANAGER STUDIO 500 mg 100 mL/hr morphine 4 mg/mL injection 2 mg 2 mg, IV, EVERY 4 HOURS PRN, Starting on Tue05/02/24 at 1508, Until Tue05/03/24 at 1801, Pain (See admin instructions), Routine, Post-op - Floor Given 05/03/2024 9:00 AM MANAGER STUDIO 2 mg Given 05/03/2024 3:37 AM MANAGER STUDIO 2 mg morphine 4 mg/mL injection 2 [...] mL injection 4 mg 4 mg, IV, ONE TIME ONLY, 1 dose, On Tue05/02/24 at 0815, Routine Given 05/02/2024 8:15 AM MANAGER STUDIO 4 mg ondansetron (ZOFRAN) 4 mg/2 mL injection 4 mg 4 mg, IV, EVERY 6 HOURS PRN, Starting on Tue05/02/24 at 1508, Until Tue05/03/24 at 1801, Nausea/Emesis, Routine, Post-op - Floor Given 05/03/2024 8:07 AM MANAGER STUDIO 4 mg ondansetron (ZOFRAN) 4 mg/2 mL injection 4 mg 4 mg, IV, EVERY 6 HOURS PRN, Starting on Tue05/02/24 at 1508, Until Tue05/03/24 at 1801, Nausea/Emesis, Routine, Post-op - Floor scopolamine (TRANSDERM-SCOP) 1 mg/72 hr transdermal patch 1 Patch 1 Patch, Transdermal, ONE TIME ONLY, 1 dose, On Tue05/02/24 at 0715, Stat, Pre-op Applied 05/02/2024 7:35 AM MANAGER STUDIO 1 Patch Mastoid,Right simethicone (MYLICON) 40 mg/0.6 mL drops 40 mg 40 mg, Oral, EVERY 6 HOURS PRN, Starting on Tue05/02/24 at 1508, Until Tue05/03/24 at 1801, Gas, Routine, Post-op - Floor sodium chloride 0.9 % flush bag 25 mL 25 mL, IV, SEE ADMIN INSTRUCTIONS, Starting on Tue05/03/24 at 0013, Until Tue05/03/24 at 1801, Routine sodium chloride 0.9% bolus solution 2,000 mL 2,000 mL, IV, PRE-PROCEDURE ONCE, 1 dose, Starting on Tue05/02/24 at 0700, Until Tue05/02/24 at 0833, at 2,000 mL/hr, Administer over 60 Minutes, Stat, Pre-op New Bag 05/02/2024 7:33 AM MANAGER STUDIO 2,000 mL 2000 mL/hr sodium chloride 0.9% infusion IV, at 30 mL/hr, PRE-PROCEDURE CONTINUOUS, Starting on Tue05/02/24 at 0715, Until Tue05/02/24 at 1502, Routine, Pre-op New Bag 05/02/2024 11:46 AM MANAGER STUDIO New Bag 05/02/2024 9:17 AM MANAGER STUDIO Restarted 05/02/2024 9:16 AM MANAGER STUDIO sodium chloride flush injection 5 mL 5 mL, IV, EVERY 12 HOURS (BlD), First dose on Sushila 05/03/24 at 0900, Until Discontinued, Routine sodium chloride flush injection 5 mL 5 mL, IV, SEE ADMIN INSTRUCTIONS, Starting on Tue05/03/24 at 0013, Until Sushila 05/03/24 at 1801, Routine documented in this encounter Active and Recently Administered Medications Times are shown in MANAGER STUDIO. Scheduled Medication Order 05/01/2024 05/02/2024 05/03/2024 acetaminophen [...] 1830 (New Bag - Provider: Nanda Darby RN)1845 (Stopped - Provider: Nanda Darby RN)1846 (Stopped - Provider: Kimberly Bell, RN) acetaminophen [...] prophylaxis 0930 (New Bag - Provider: Elbert K Lujan, ELECTRICAL LINE SPLICER)0935 (Stopped - Provider: Elbert Lujan CRNA) ceFAZolin (ANCEF,KEFZOL) 2,000 mg in sodium chloride 0.9% 50 mL IVPB (MBP) (COMPLETED)(Linked Group 1) 2,000 mg, IV, POST-PROCEDURE Q 8 HOURS, 2 doses, First dose on Tue05/02/24 at 1730, Last dose on Tue05/03/24 at 0130, Routine, Post-op - Floor, Antibiotic Indication: Surgical prophylaxis 2120 (New Bag - Provider: Kimberly Blel, RN)215 (Stopped - Provider: Kimberly Bell, RN) 044 (New Bag - Provider: Kimberly Bell RN)0453 (Rate Verify - Provider: Kimberly Bell RN)0513 (Stopped - Provider: Kimberly Bell, RN) dextrose 5 % in water 250 mL flush bag 25 mL 25 mL, IV, SEE ADMIN INSTRUCTIONS, Starting on Tue05/03/24 at 0013, Until Tue05/03/24 at 1801, Routine famotidine PF (PEPCID) 20 [...] Floor 2121 (Given - Provider: Kimberly Bell, AVA) 08 (Given - Provider: Tosha Fisher RN) heparin injection 5,000 Units (COMPLETED) 5,000 Units, subCUT, PRE-PROCEDURE ONCE, 1 dose, Starting on Tue05/02/24 at 0700, Until Tue05/02/24 at 0736, Stat, Pre-op 0736 (Given - Provider: Massimo Lira, AVA) metoprolol succinate (TOPROL XL) SR 24 hour tablet 25 mg 25 mg, Oral, DAILY, First dose on Tue05/03/24 at 0900, Until Discontinued, Routine, Previous Med: metoprolol succinate (TOPROL XL) 25 mg Extended Release 24 hour tablet - Orig Sig - Take 25 mg by mouth daily. 0808 (Given - Provid er: Tosha Fisher RN) metroNIDAZOLE (FLAGYL) IVPB 500 mg (COMPLETED) 500 mg, IV, ONE TIME ONLY, 1 dose, On Tue05/02/24 at 0715, Stat, Pre-op, Antibiotic Indication: Surgical prophylaxis 0817 (New Bag - Provider: Massimo Lira RN)0917 (Stopped - Provider: Nanda Darby RN) metroNIDAZOLE (FLAGYL) IVPB 500 mg (COMPLETED)(Linked Group 1) 500 mg, IV, POST-PROCEDURE Q 8 HOURS, 2 doses, First dose on Tue05/02/24 at 1615, Last dose on Tue05/03/24 at 0015, Routine, Post-op - Floor, Antibiotic Indication: Surgical prophylaxis 194 (New Bag - Provider: Nanda Darby RN)2041 (Stopped - Provider: Kimberly Bell RN) 0254 (New Bag - Provider: Kimberly Bell RN)0354 (Stopped - Provider: Kimberly Bell, AVA) naloxone (NARCAN) 0.4 mg/mL injection 0.1-0.4 mg [...] Stat, Pre-op 0735 (Applied - Provider: Massimo Lira RN) 1551 (Due: Removed - Provider: PROVIDER, DISCHARGE PATIENT - Comment: Time automatically adjusted from order being discontinued) sodium chloride 0.9 % flush bag 25 mL 25 mL, IV, SEE ADMIN INSTRUCTIONS, Starting on Tue05/03/24 at 0013, Until Sushila 05/03/24 at 1801, [...] EVERY 12 HOURS (BlD), First dose on Sushila 05/03/24 at 0900, Until Discontinued, Routine 0900 (Not Given - Provider: Tosha Fisher RN - Reason: Clarify-Other (Comment) - Comment: IV fluids running.) sodium chloride flush injection 5 mL 5 mL, IV, SEE ADMIN INSTRUCTIONS, Starting on Sushila 05/03/24 at 0013, Until Sushila 05/03/24 at 1801, Routine Continuous Medication Order 05/01/2024 [...] 1526 (New Bag - Provider: Nanda Darby RN)1829 (Paused - Provider: Kimberly Bell, AVA)1845 (Restarted - Provider: Kimberly Bell, RN)1941 (Paused - Provider: Kimberly Bell RN)1941 (Paused - Provider: Kimberly Bell RN)2044 (Restarted - Provider: Kimberly Bell RN)2119 (Stopped - Provider: Kimberly Bell, RN)2119 (Bag Switched - Provider: Kimberly Bell RN)2120 (Paused - Provider: Kimberly Bell RN)2150 (Restarted - Provider: Kimberly Bell, RN)223 (Paused - Provider: Kimberly Bell, RN)224 (Restarted - Provider: Kimberly Bell RN) 025 (Stopped - Provider: Kimberly Bell RN)0253 (Bag Switched - Provider: Kimberly Bell RN)0254 (Paused - Provider: Kimberly Bell, RN)0354 (Restarted - Provider: Kimberly Bell, AVA)0403 (Paused - Provider: Kimberly Bell RN)0418 (Restarted - Provider: Kimberly Bell RN)0443 (Stopped - Provider: Kimberly Bell, RN)0929 (New Bag - Provider: Tosha Fisher RN) sodium chloride 0.9% infusion (CANCELED) IV, at 30 mL/hr, PRE-PROCEDURE CONTINUOUS, Starting on Tue05/02/24 at 0715, Until Tue05/02/24 at 1502, Routine, Pre-op 0819 (New Bag - Provider: Massimo Lira RN)0915 (Paused - Provider: Elbert Lujan CRNA - [...] PRN, Starting on Tue05/02/24 at 1556, Until Tue05/03/24 at 1801, Blood Pressure, Blood pressure, Routine diphenhydrAMINE (BENADRYL) injection 25 mg 25 mg, IV, EVERY 6 HOURS PRN, Starting on Tue05/02/24 at 1508, Until Tue05/03/24 at 1801, Itching, Routine, Post-op - Floor HYDROcodone-acetaminophen 2.5-108 mg/5 mL oral solution 15 mL 15 mL (7.5 mg), Oral, EVERY 4 HOURS PRN, Starting on Tue05/03/24 at 1000, Until Tue05/03/24 at 1801, Pain (See admin instructions), Routine, Post-op - Floor HYDROcodone-acetaminophen 2.5-108 mg/5 mL oral solution 15 mL 15 mL (7.5 mg), Oral, EVERY 4 HOURS PRN, Starting on Tue05/03/24 at 1000, Until Tue05/03/24 at 1801, Pain (See admin [...] at 1508, Until Sushila 05/03/24 at 1801, Nausea/Emesis, Routine, Post-op - Floor 0807 (Given - Provid er: Tosha Fisher RN) ondansetron (ZOFRAN) 4 mg/2 mL injection 4 mg 4 mg, IV, EVERY 6 HOURS PRN, Starting on Tue05/02/24 at 1508, Until Sushila 05/03/24 at 1801, Nausea/Emesis, Routine, Post-op - Floor simethicone (MYLICON) 40 mg/0.6 mL drops 40 mg 40 mg, Oral, EVERY 6 HOURS PRN, Starting on Tue05/02/24 at 1508, Until Sushila 12 at 1801, Gas, Routine, Post-op - Floor [...] 8 HOURS, 2 doses, First dose on 05/02/24 at 1615, Last dose on Sushila 05/03/24 at 0015, Routine, Post-op - Floor, Antibiotic Indication: Surgical prophylaxis documented in this encounter Care Teams Scuba Dive Training Instructor Relationship Specialty Start Date End Date Puneet Hughes MD [address] [place] [address] PCP - General Internal Medicine 01/03/24 documented as of this encounter
--- OUTSIDE RECORDS SUMMARY | 2024-05-22 05:50 | XMS_ITS | Encounter Summary ---
Author Organization [facility] Address [address] [place] [address] Care Team Providers Care Transmitter Engineer Name Role Phone Puneet Hughes MD Primary Care Provider [phone] Encounter Details Date Type Department Care Team (Late st Contact Info) Description 05/08/2024 External Device Data ST[facility] ABSTRACTION [...] on filedocumented in this encounter Care Teams Transmitter Engineer Relationship Specialty Start Date End Date Puneet Huhges MD [address] [place] [id number] PCP - General Internal Medicine 01/03/24 documented as of this encounter
--- OUTSIDE RECORDS SUMMARY | 2024-05-22 05:50 | XMS_ITS | Encounter Summary ---
Author Organization [facility] Address [address] [place]: Epic Prelude ADT [place] [address] Care Team Providers Care Hand Drawer In Helper Name Role Phone Puneet Hughes MD Primary Care Provider [phone] Encounter Details Date Type Department Care Team (Latest Contact Info) Description 04/24/2024 Travel Social History Tobacco Use Types Packs/Day [...] on filedocumented in this encounter Care Teams Hand Drawer In Helper Relationship Specialty Start Date End Date Puneet Hughes MD [address] [place] [address] PCP - General Internal Medicine 01/03/24 documented as of this encounter
--- OUTSIDE RECORDS SUMMARY | 2024-05-22 05:50 | XMS_ITS | Encounter Summary ---
Author Organization [facility] Address [address] [place] [address] Care Team Providers Care Project Management It Specialist Name Role Phone Puneet Hughes MD Primary Care Provider [phone] Encounter Details Date Type Department Care Team (Late st Contact Info) Description 03/27/2024 External Device Data STL ABSTRACTION Provider, [...] on filedocumented in this encounter Care Teams Project Management It Specialist Relationship Specialty Start Date End Date Puneet Hughes MD [address] [place] [address] PCP - General Internal Medicine 01/03/24 documented as of this encounter
--- OUTSIDE RECORDS SUMMARY | 2024-05-22 05:50 | XMS_ITS | Encounter Summary ---
Author Organization [facility] Address [address] [place] [address] Care Team Providers Care Carburizing Furnace Operator Name Role Phone Puneet Hughes MD Primary Care Provider [phone] Encounter Details Date Type Department Care Team [...] on filedocumented in this encounter Care Teams Carburizing Furnace Operator Relationship Specialty Start Date End Date Puneet Hughes MD [address] [place] [address] PCP - General Internal Medicine 01/03/24 documented as of this encounter
--- OUTSIDE RECORDS SUMMARY | 2024-05-22 05:51 | XMS_ITS | Encounter Summary ---
Author Organization [facility] Address [address] [place]: Epic Prelude ADT [place] [address] Care Team Providers Care Sql Server Dba Name Role Phone Unavailable Primary Care Provider Unavailabl e Encounter Details Date Type Department Care Team (Latest Contact Info) Description 07/01/2020 Travel Social History Tobacco Use Types Packs/Day [...] have Coronavirus / COVID-19? Unable to assess 07/01/2020 8:23 AM MANAGER TRAINING documented as of this encounter Plan of Treatment Not on file documented as of this encounter Visit Diagnoses Not on filedocumented in this encounter
--- OUTSIDE RECORDS SUMMARY | 2024-05-22 05:51 | XMS_ITS | Encounter Summary ---
Author Organization [facility] Address [address] [place] [address] Care Team Providers Care Director Food Safety Name Role Phone Puneet Hughes MD Primary Care Provider [phone] Encounter Details Date Type Department Care Team (Late st Contact Info) Description 01/31/2004 Outpatient Historical [facility] Internal Medicine [address] [place] [address] Enrico Stone MD [address] [place] [address] Social History Tobacco Use Types Packs/Day Years Used Date Smoking Tobacco: Never Assessed Sex and Gender Information Value Date Recorded Sex Assigned at Not on file Gender Identity Not on file Sexual Orientation Not on file documented as of this encounter Plan of Treatment Not on file documented as of this encounter Visit Diagnoses Not on filedocumented in this encounter Care Teams Director Food Safety Relationship Specialty Start Date End Date Puneet Hughes MD [address] [place] [address] PCP - General Internal Medicine 01/03/24 documented as of this encounter
--- OUTSIDE RECORDS SUMMARY | 2024-05-22 05:51 | XMS_ITS | Encounter Summary ---
Author Organization [facility] Address [address] [place] [address] Care Team Providers Care Real Estate Instructor Name Role Phone Natasha Bates Primary Care Provider [phone] Kimberly Bell DRILL DOCTOR Unavailable [phone] Reason for Visit * Reason Comments Successfully Completed Encounter Details Date Type Department Care Team (Late st Contact Info) Description 06/24/2021 SHOP/CHAP Subsequent Outreach [facility] [address] [place] [id number] Maggie Page, RN [address] [facility] [address] [place] [address] Social History Tobacco Use Types Packs/Day Years Used Date Smoking Tobacco: Never Smokeless Tobacco: Never Alcohol Use Standard Drinks/Week Comments No 0 (1 standard drink = 0.6 oz pur e alcohol) Social Connection and Isolat ion Panel [NHANES] Answer Date Recorded In a typical week, how many times do you talk on the phone with family, friends, or neighbors? More than three times a week 06/05/2021 How often do you get togethe r with friends or relatives? More than three times a week 06/05/2021 How often do you attend chur or voodoo services? More than 4 times per year 06/05/2021 Do you belong to any clubs o r organizations such as buddhist groups, unions, fraternal or athletic groups, or school groups? No 06/05/2021 How often do you attend meet ings of the clubs or organizations you belong to? Never 06/05/2021 Are you , , di vorced, , never , or living with a partner? 06/05/2021 AUDIT-C Answer Date Recorded Q1: How often do you have a drink containing alc ohol? 2-4 times a month 05/13/2021 Q2: How many drinks containi ng alcohol do you have on a typical day when you are drinking? 1 or 2 05/13/2021 Q3: How often do you have si x or more drinks on one occasion? Never 05/13/2021 Overall Financial Resource Strain (CARDIA) Answe r Date Recorded How hard is it for you to pa y for the very basics like food, housing, medical care, and heating? Not hard at all 06/05/2021 Hunger Vital Sign Answer Date Recorded Within the past 12 months, y ou worried that your food would run out before you got the money to buy more. Never true 06/05/19 Within the past 12 months, t he food you bought just didn't last and you didn't have money to get more. Never true 06/05/2021 PRAPARE - Transportation Answer Date Re corded In the past 12 months, has l ack of transportation kept you from medical appointments or from getting medications? No 05/23 In the past 12 months, has l ack of transportation kept you from meetings, work, or from getting things needed for daily living? No 06/05/2021 Housing Stability Vital Sign Answer Kelvin e Recorded In the last 12 months, was t here a time when you were not able to pay the mortgage or rent on time? No 06/05/2021 In the last 12 months, how many places have you lived? 1 06/05/2021 In the last 12 months, was t here a time when you did not have a steady place to sleep or slept in a [place] (including now)? No 06/05/2021 Sex and Gender Information Value Date Recorded Sex Assigned at Not on file Legal Sex 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 [place] ATTORNEY Gender Identity Not on file Sexual Orientation Not on file documented as of this encounter Progress Notes * Maggie Page RN - 06/24/2021 3:36 PM CST Weekly SHOP call. Patient states he is doing great at this time. Patient saw his urologist Dr. Rogers last week and states the follow up went well. Patient is scheduled again on 07/07 at 11 am at whichtime they will activate his artificial urinary sphincter. Patient states his suprapubic and perineal incisions are healing well with no signs of infection. Patient plans to return to work in a few days. He has no questions or concerns at this time. Reviewed [facility] contact information and encouraged patient to call with any needs. ED STATES ATTORNEY documented in this encounter Plan of Treatment Not on file documented as of this encounter Visit Diagnoses Not on filedocumented in this encounter Additional Health Concerns Infection Onset Date Last Indicated Resolved Time COVID: Recovered Comment:Added based on recent COVID infection. 06/14/2021 06/15/2021 10/12/2021 3:05 AM C DT documented as of this encounter Care Teams Real Estate Instructor Relationship Specialty Start Date End Date Natasha Bates PA [address] [place] [address] PCP - General Physician Regional Loss Prevention Manager 10/08/19 Kimberly Bell LCSW [address] [facility] ([facility] Mailstop [phone] [place] [address] SHOP Outpatient Wire Loop Machine Operator 06/05/21 07/05/21 documented as of this encounter
--- OUTSIDE RECORDS SUMMARY | 2024-05-22 05:51 | XMS_ITS | Encounter Summary ---
Author Organization [facility] Address [address] [place] [address] Care Team Providers Care Hardware Manager Name Role Phone Puneet Hughes MD Primary Care Provider [phone] Encounter Details Date Type Department Care Team (Late st Contact Info) Description 01/03/2004 Outpatient Historical [facility] Internal Medicine [address] [place] [address] Enrico Stone MD [address] [place] [address] Social History Tobacco Use Types [...] on filedocumented in this encounter Care Teams Hardware Manager Relationship Specialty Start Date End Date Puneet Hughes MD [address] [place] [address] PCP - General Internal Medicine 01/03/24 documented as of this encounter
--- OUTSIDE RECORDS SUMMARY | 2024-05-22 05:51 | XMS_ITS | Encounter Summary ---
Author Organization [facility] Address [address] [place] [address] Phone Care Team Providers Care Aircraft Electronics Technical Officer Name Role Phone Natasha Bates Primary Care Provider [phone] Kimberly Bell HOME OFFICE CLAIM SPECIALIST Unavailable [phone] Reason for Visit * Reason Comments Follow-up AUS placement * Consultation (Routine) - Closed Specialty Diagnoses / Procedures Referred By Malena sagastume Referred To Contact Urology Diagnoses Follow up Natasha Bates PA [address] [place] [address] Phone: tel: fax: [facility] (All Locations) Referral ID Status Reason Start Date Expiration Date V isits Requested Visits Authorized [id number] Closed Specialty Services Required 03/02/2021 04/01/2022 99 99 Encounter Details Date Type Department Care Team (Late st Contact Info) Description 06/18/2021 11:20 AM CAN DOFFER Office Visit [facility] Urology [address] [place] [address] Suzette Rogers MD [address] [facility] [address] [place] [address] LIZET (stress urinary incontinence), male (Primary Dx); Follow up Social History Tobacco Use Types Packs/Day Years [...] 06/05/2021 How often do you attend chur ch or mosque services? More than 4 times per year 06/05/2021 Do you belong to any clubs o r organizations such as shinto groups, unions, fraternal or athletic groups, or [...] place to sleep or slept in a care home (including now)? No 06/05/2021 Sex and Gender Information Value Date Recorded Sex Assigned at Not on file Legal Sex 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 CAN DOFFER Gender Identity Not on file Sexual Orientation Not on file documented as of this encounter Progress Notes * Suzette Rogers MD - 06/18/2021 11:20 AM CST HPI: Howie Delaney is a 55 y.o. male with male stress incontinence. He has a 4.5 cm artificial urinary sphincter placement in May 27, 2021. He has a prior AUS erosion, and has AUS removal in the past. Patient reported decreased urinary output. On examination, his AUS was deactivated, the dimple can be felt, there is no clinical infection of his prosthetics, and on cystoscopy, the AUS is open, without erosion. Because of the decreased urine output, he was admitted to the hospital, he was noted tohave acute renal insufficiency without elevated postvoid residual volume, his admission color test was also positive, he does not have symptoms from COVID. He was subsequently discharged, during the hospitalization he did not have self intermittent catheterization or Avila catheter. His postvoid residual volume remains low. He was follow-up with medicine team, and on serial creatinine, his creatinine his come down to 1.3 six days ago. Is here for follow-up. His AUS is not ready for activation, because of the prior history of erosion, and more difficult dissection to place this one, the cuff was located distal to his prior erosion site. the plan was to wait for 6 weeks before activation. ROS: Review Of Systems has been reviewed and can be found in the chart. The patient's past medical history, social history and family history are listed on their questionnaire, have been reviewed and can be found in the chart. UA: see lab results from today Physical examination: GENERAL: Patient is healthy appearing, who is well developed, well nourished in no acute distress. Eyes: Pupils equal, round. Sclera anicteric. Chest: Lungs clear to auscultation bilaterally. Heart: Regular rate and rhythm. Abdomen: Soft and non-tender, no masses, no hernia. No CVA tenderness. Skin: No rashes or lesions. Musculoskeletal: Normal strength. No edema. Neurologic: Alert, nonfocal. Psychiatric: Normal affect and mood, oriented x 3. Incisions suprapubic area has heal well, there is no induration infection. Perineal incision also looks fine. The pump can be palpated on the right hemiscrotum, there is still some edema around it, but no tenderness or induration. The pump is deactivated with a dimple that is palpable. Post-void residual: Measurement of postvoid residual urine and/or bladder capacity by ultrasound, non imaging. PVR = 6 cc. Assessment and Plan: AUS placement in May, with prior erosion history It was a 4.5 cm cuff His renal insufficiency has improved and trending down His PVR remains 0 Recent COVID positive during hospitalization 1. He will continue to follow up with the Nephrology team regarding his creatinine. 2. He has a follow-up set up with me in July 07, at that time I will plan to activate his artificial sphincter. Linda Rogers MD rehabilitation psychologist (Urology) Division of Urologic Surgery [facility] Office [phone] 06/18/2021 11:23 AM DOFFER DOFFER documented in this encounter Miscellaneous Notes * Addendum Note - Adalgisa Munoz LPN - 06/18/2021 11:20 AM CSTAddended by: ADALGISA MUNOZ on: 06/18/2021 12:00 PM Modules accepted: Orders DOFFER documented in this encounter Plan of Treatment Not on file documented as of this encounter Procedures Procedure Name Priority Date/Time Associated Diagnosis Comments POCT URINALYSIS DIPSTICK Routine 06/18/2021 11:59 AM CAN DOFFER LIZET (stress urinary incontinence), male documented in this encounter Results * (ABNORMAL) POCT urinalysis dipstick (06/18/2021 11:59 AM CAN DOFFER) Glucose, ur, POC Negative Negative mg/dL Ketones, ur, POC Negative Negative Blood, ur, POC Negative Negative pH, ur, POC 5.0 5.0 - 8.0 Protein, ur, POC 2+(A) Negative Nitrite, ur, POC Negative Negative Leukocytes, ur, POC Negative Negative Lot Number x Urine 06/18/2021 11:5 9 AM CAN DOFFER Suzette Rogers MD POINT OF CARE TEST ORDERABLES Final Result documented in this encounter Visit Diagnoses Diagnosis LIZET (stress urinary incontinence), male- Primary Follow up documented in this encounter Additional Health Concerns Infection Onset Date Last Indicated Resolved Time COVID: Recovered Comment:Added based on recent COVID infection. 06/14/2021 06/15/2021 10/12/2021 3:05 AM C DT documented as of this encounter Care Teams Aircraft Electronics Technical Officer Relationship Specialty Start Date End Date Natasha Bates PA [address] [place] [address] PCP - General Physician Senior Scrum Master 10/08/19 Kimberly Bell LCSW [address] [facility] [place] Mailstop [phone] [place] [address] SHOP Outpatient Car Bracer 06/05/21 07/05/21 documented as of this encounter
--- OUTSIDE RECORDS SUMMARY | 2024-05-22 05:51 | XMS_ITS | Encounter Summary ---
Author Organization [facility] Address [address] Barnes: Epic Prelude ADT [place] [address] Care Team Providers Care Consulting Analyst Name Role Phone Unavailable Primary Care Provider Unavailabl e Encounter Details Date Type Department Care Team (Latest Contact Info) Description 07/02/2020 Travel Social History Tobacco Use Types Packs/Day [...] have Coronavirus / COVID-19? No / Unsure 07/02/2020 3:12 PM TIP BANDER documented as of this encounter Plan of Treatment Not on file documented as of this encounter Visit Diagnoses Not on filedocumented in this encounter
--- OUTSIDE RECORDS SUMMARY | 2024-05-22 05:51 | XMS_ITS | Encounter Summary ---
Author Organization [facility] Address [address] [place] [address] Care Team Providers Care Director Community Center Name Role Phone Puneet Hughes MD Primary Care Provider [phone] Reason for Visit * Auth/Cert (Routine) Specialty Diagnoses / Procedures Referred By Malena sagastume Referred To Contact Perioperative Diagnoses Bariatric surgery status Bariatric surgery status [Z98.84] Procedures [place] EGD TRANSORAL BIOPSY SINGLE/MULTIPLE [place] [address] [address] [facility] [address] [place] [address] [facility] Endoscopy [address] [place] [address] Referral ID Status Reason Start Date Expiration Date Visits Re quested Visits Authorized [id number] 1 1 Encounter Details Date Type Department Care Team (Late st Contact Info) Description 03/02/2024 8:57 AM CDT Anesthesia Event [facility] [address] [place] [address] [place] [address] [place] [address] Anesthesia Record Procedure Summary Procedure Name Responsible Anesthesiologist Anesthesia Start Time Anesthesia Stop Time ESOPHAGOGASTRODUODENOSCOPY (Mouth) Wallace Brizuela MD 03/02/24 0857 03/02/24 0911 Events Date Time Event Comment 03/02/2024 0825 0857 In Room This event disp lays the In Room time documented in the Surgical Log. Deleting this event will not remove it from the log but will remove it from the Grid and Graph timeline. 0857 AN Equip Check Anesthesia eq uipment and materials checked in accordance with local policy. 0857 An Start 0859 An Start Data 0859 Pre-Induction Immediate pre- induction anesthetic assessment performed. Vital signs as noted on graphic. 0901 Anesthesia Ready 0904 Procedure Start This event d isplays the Procedure Start time documented in the Surgical Log. Deleting this event will not remove it from the log but will remove it from the Grid and Graph timeline. 0905 Procedure Stop This event di splays the Procedure Stop time documented in the Surgical Log. Deleting this event will not remove it from the log but will remove it from the Grid and Graph timeline. 0907 Out of Room This event disp lays the Out of Room time documented in the Surgical Log. Deleting this event will not remove it from the log but will remove it from the Grid and Graph timeline. 0907 an stop data 0911 An Stop 0911 Hand-off to Receiving Clinic moises Meds Name Total dexmedeTOMIDine (PRECEDEX) in NS 200??mc g/50 mL infusion 12 mcg lidocaine PF (XYLOCAINE MPF) 2% injectio n 2.5 mL propofol (DIPRIVAN) injection 200 mg lactated ringers infusion 150 mL * Agents Name O2 * Blood No blood administrations on file. Lines, Drains, and Airways Type Details Placement Removal Peripheral IV Pre-Hospital Start: No; Orientation: Posterior, Right; Location: Hand; Device: Angiocath; Gauge: 22 gauge; Needle Length: 1 in length; Insertion Attempts: 1; Patient Tolerance: tolerated well 03/02/24 0819 by Bong To, RN 03/02/24 0935 by Robert Cornelius RN documented in this encounter Social History Tobacco [...] OR Notes * Anesthesia Postprocedure Evaluation - Subbaiah, Kosuri V., MD - 03/02/2024 9:19 AM CDT Post Anesthesia Evaluation Vitals: Vitals Value Taken Time BP 116/70 03/02/24 0910 Temp 36.7 ??C 03/02/24 0910 Resp 14 03/02/24 0910 SpO2 99 % 03/02/24 0910 Pulse 62 03/02/24 0910 Heart Rate 54 bpm 03/02/2418 Vitals shown include unfiled device data. Pain Rating: Anesthesia Post Evaluation Patient location during evaluation: OB Patient participation: patient was able to participate in the post op evaluation Level of consciousness: 0 = alert, responsive, answers simple questions appropriately, able to perform simple tasks Pain management: adequate Multimodal analgesia pain management approach Airway patency: patent Nausea or Vomiting: controlled Cardiovascular status: regular rate and rhythm Respiratory status: no respiratory symptoms Hydration status: well hydrated No notable events documented. Wallace Brizuela MD * Anesthesia Handoff - Iain Stockton AA-C - 03/02/2024 9:11 AM CDT Post-Anesthetic transfer of care report elements to [...] Vital Signs: Vitals Value Taken Time BP 116/70 03/02/24 0910 Temp 36.7 ??C 03/02/24 0910 Resp 14 03/02/24 0910 SpO2 99 % 03/02/24 0910 Pulse 62 03/02/24 0910 Heart Rate 64 bpm 03/02/24 09 Vitals shown include unfiled device data. 9:11 AM DIEGO Mccracken * Anesthesia Preprocedure Evaluation - Wallace Brizuela MD - 03/02/2024 8:21 AM CDT Location of Pre-Procedure Assessment: Endoscopy. Anesthesia History: History of: PONV. Positive for: Anesthetic complications and aggressive post op, slow to wake. Endocrine History: neg endo/other ROS. Renal History: History of: Renal disease. Disease type: CRF. Pulmonary History: No shortness of breath History of: Sleep Apnea. Sleep apnea interventions: obstructive and CPAP. Cardiovascular History: Sob w/ FOS. Denies cpExercise tolerance: poor.History of: Hypertension. History of: CAD. Negative history of: Angina. Negative history of: past CO.History of: CHF. History of: PVD. GI/Hepatic History: nataliya liverHistory of: GERD. History of: Alcohol use. Neuro/Psych History: History of: Neuropathy. Musculoskeletal History: gout Hematologic/Oncologic History: History of: Depression. History of: Anxiety. Obstetric History: Nutrition Status: neg nutritional Negative history of:severe morbid obesity Other Findings: Cardiac clearance on paper . [facility] PHYSICAL EXAM: PHYSICAL EXAM: Habitus: Obese Mental Status: Oriented, Awake and Alert TMJ Mallampati:: III TM distance:: <3 FB Neck ROM:: Full Rhythm:: Regular Rate:: Normal periodontal disease Breath sounds clear to auscultation obesity Anesthesia Plan ASA Final: 3 MAC NPO status > 8 hours Anesthetic plan and risks discussed with Patient. [facility] FINAL DOS EXAM: ASA score (Day of Surgery): 3 Mallampati:: III Cardiovascular Neg Pulmonary Neg Plan: MAC documented in this encounter Plan of Treatment Not on file documented as of this encounter Visit Diagnoses Not on filedocumented in this encounter Administered Medications Inactive Administered Medications - up to 3 most recent administrations Medication Order MAR Action Action Date Dose Rate Site dexmedeTOMIDine in NS (PRECEDEX) 200 mcg/50 mL (4 mcg/mL) infusion IV, INTRA-PROCEDURE PRN, Starting on Tue03/02/24 at 0859, Until Tue03/02/24 at 0911, Anesthesia Intra-op Given 03/02/2024 8:59 AM CDT 12 mcg lactated ringers infusion IV, at 50 mL/hr, CONTINUOUS, Starting on Tue03/02/24 at 0815, Until Tue03/02/24 at 1150, Routine, Pre-op Restarted 03/02/2024 8:57 AM CDT New Bag 03/02/2024 8:26 AM CDT 50 mL/hr lidocaine PF 2% (XYLOCAINE MPF) injection IV, INTRA-PROCEDURE PRN, Starting on Tue03/02/24 at 0859, Until Tue03/02/24 at 0911, Routine, Anesthesia Intra-op Given 03/02/2024 8:59 AM CDT 2.5 mL propofoL (DIPRIVAN) injection IV, INTRA-PROCEDURE PRN, Starting on Tue03/02/24 at 0901, Until Tue03/02/24 at 0911, Anesthesia Intra-op Given 03/02/2024 9:04 AM CDT 50 mg Given 03/02/2024 9:01 AM CDT 150 mg documented in this encounter Care Teams Director Community Center Relationship Specialty Start Date End Date Puneet Hughes MD [address] [place] [id number] PCP - General Internal Medicine 01/03/24 documented as of this encounter
--- OUTSIDE RECORDS SUMMARY | 2024-05-22 05:51 | XMS_ITS | Encounter Summary ---
Author Organization [facility] Address [address] [address] Care Team Providers Care Nurse Paralegal Name Role Phone Natasha Bates Primary Care Provider [phone] Kimberly Bell SLITTER HELPER Unavailable [phone] Reason for Visit * Reason Onset Date Comments Covid-19 Home Monitoring 06/13/2021 Encounter Details Date Type Department Care Team (Late st Contact Info) Description 06/13/2021 Telephone [facility] Accountable Care Organization [address] [place] [address] Chelsie Bergman, RN Covid-19 Home Monitoring Social History Tobacco Use Types Packs/Day Years [...] often do you attend chur ch or episcopal services? More than 4 times per year 06/05/2021 Do you belong to any clubs o r organizations such as taoism groups, unions, fraternal or athletic groups, or [...] place to sleep or slept in a fpc (including now)? No 06/05/2021 Sex and Gender Information Value Date Recorded Sex Assigned at Not on file Legal Sex 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 MANAGER INTENSIVE CARE Gender Identity Not on file Sexual Orientation Not on file documented as of this encounter Miscellaneous Notes * Telephone Encounter - Chelsie Bergman RN - 06/13/2021 10:25 AM CST This patient is being disenrolled from the phone-only version of the COVID-19 home monitoring program for the following reason: Opted out This patient has requested to opt out of the phone-only COVID-19 home monitoring program before meeting completion criteria. The patient is also aware of the phone number to call if they have furtherquestions or if their symptoms get worse: . GER INTENSIVE CARE documented in this encounter Plan of Treatment Not on file documented as of this encounter Visit Diagnoses Not on filedocumented in this encounter Additional Health Concerns Infection Onset Date Last Indicated Resolved Time COVID19 06/03/2021 06/03/2021 06/14/2021 3:05 AM MANAGER INTENSIVE CARE documented as of this encounter Care Teams Nurse Paralegal Relationship Specialty Start Date End Date Natasha Bates PA [address] [place] [address] PCP - General Physician Card Processing Clerk 10/08/19 Kimberly Bell LCSW [address] [facility] ([facility]) Mailstop [phone] [place] [address] SHOP Outpatient Forensic Anthropologist 06/05/21 07/05/21 documented as of this encounter
--- OUTSIDE RECORDS SUMMARY | 2024-05-22 05:51 | XMS_ITS | Encounter Summary ---
Author Organization [facility] Address [address] [place] [address] Care Team Providers Care Cable Television Installer Name Role Phone Puneet Hughes MD Primary Care Provider [phone] Encounter Details Date Type Department Care Team (Late st Contact Info) Description 01/03/2004 Outpatient Historical [facility] Internal Medicine [address] [place] [address] Enrico Stone MD [address] [facility] [facility] [address] [place] [address] Social History Tobacco Use Types [...] on filedocumented in this encounter Care Teams Cable Television Installer Relationship Specialty Start Date End Date Puneet Hughes MD [address] [place] [address] PCP - General Internal Medicine 01/03/24 documented as of this encounter
--- OUTSIDE RECORDS SUMMARY | 2024-05-22 05:51 | XMS_ITS | Encounter Summary ---
Author Organization [facility] Address [address] [place] [address] Care Team Providers Care Feltmaker And Weigher Name Role Phone Puneet Hughes MD Primary Care Provider [phone] Encounter Details Date Type Department Care Team (Late st Contact Info) Description 01/03/2004 Outpatient Historical [facility] Internal Medicine [address] [place] [address] Enrico Stone MD [address] [facility] [facility] [address] [place] [address] Social History Tobacco Use Types [...] on filedocumented in this encounter Care Teams Feltmaker And Weigher Relationship Specialty Start Date End Date Puneet Hughes MD [address] [place] [address] PCP - General Internal Medicine 01/03/24 documented as of this encounter
--- OUTSIDE RECORDS SUMMARY | 2024-05-22 05:51 | XMS_ITS | Encounter Summary ---
Author Organization [facility] Address [address] Barnes: Epic Prelude ADT [place] [address] Care Team Providers Care Screen Print Operator Name Role Phone Unavailable Primary Care Provider Unavailabl e Encounter Details Date Type Department Care Team (Latest Contact Info) Description 07/15/2020 Travel Social History Tobacco Use Types Packs/Day [...] have Coronavirus / COVID-19? No / Unsure 07/15/2020 1:13 PM PRECIPITATOR OPERATOR documented as of this encounter Plan of Treatment Not on file documented as of this encounter Visit Diagnoses Not on filedocumented in this encounter
--- OUTSIDE RECORDS SUMMARY | 2024-05-22 05:51 | XMS_ITS | Encounter Summary ---
Author Organization [facility] Address [address] Barnes: Epic Prelude ADT [place] [address] Care Team Providers Care Proposal Engineer Name Role Phone Unavailable Primary Care Provider Unavailabl e Encounter Details Date Type Department Care Team (Latest Contact Info) Description 07/21/2020 Travel Social History Tobacco Use Types Packs/Day [...] or suspected to have Coronavirus / COVID-19? Yes 07/21/2020 9:34 AM INTELLIGENCE CLERK documented as of this encounter Plan of Treatment Not on file documented as of this encounter Visit Diagnoses Not on filedocumented in this encounter
--- OUTSIDE RECORDS SUMMARY | 2024-05-22 05:51 | XMS_ITS | Encounter Summary ---
Author Organization [facility] Address [address] [place] [address] Care Team Providers Care Stem Lead Former Name Role Phone Natasha Bates Primary Care Provider [phone] Kimberly Bell PRESIDENTIAL HELICOPTER CREW CHIEF Unavailable [phone] Reason for Visit * Reason Comments Successfully Completed Encounter Details Date Type Department Care Team (Late st Contact Info) Description 06/18/2021 SHOP/CHAP Subsequent Outreach [facility] OP CASE MANAGEMENT [address] [place] [address] Kimberly Bell, PRESIDENTIAL HELICOPTER CREW CHIEF [address] [facility] ([facility] Mailstop [phone] [place] [address] Social History Tobacco Use Types Packs/Day Years [...] How often do you attend chur or tenriism services? More than 4 times per year 06/05/2021 Do you belong to any clubs o r organizations such as jainism groups, unions, fraternal or athletic groups, or [...] place to sleep or slept in a assisted (including now)? No 06/05/2021 Sex and Gender Information Value Date Recorded Sex Assigned at Not on file Legal Sex 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 RESTAURANT EXPEDITOR Gender Identity Not on file Sexual Orientation Not on file documented as of this encounter Progress Notes * Kimberly Bell LCSW - 06/18/2021 3:04 PM CST OCM spoke with pt who stated that he has been feeling well over the past week. Pt confirmed that heattended [facility] app[facility] yesterday and surgery appt at [facility] today. Pt confirmed both appts went well. Pt confirmed he had his medications. Pt stated he had no needs at this time. OCM will continue to follow. AURANT EXPEDITOR documented in this encounter Plan of Treatment Not on file documented as of this encounter Visit Diagnoses Not on filedocumented in this encounter Additional Health Concerns Infection Onset Date Last Indicated Resolved Time COVID: Recovered Comment:Added based on recent COVID infection. 06/14/2021 06/15/2021 10/12/2021 3:05 AM C DT documented as of this encounter Care Teams Stem Lead Former Relationship Specialty Start Date End Date Natasha Bates PA [address] [place] [address] PCP - General Physician Header Boss 10/08/19 Kimberly Bell LCSW [address] [facility] ([facility]) Mailstop [phone] [place] [address] SHOP Outpatient Final Tester 06/05/21 07/05/21 documented as of this encounter
--- OUTSIDE RECORDS SUMMARY | 2024-05-22 05:51 | XMS_ITS | Encounter Summary ---
Author Organization [facility] Address [address] [place] [address] Care Team Providers Care Audience Coordinator Name Role Phone Puneet Hughes MD Primary Care Provider [phone] Encounter Details Date Type Department Care Team (Late st Contact Info) Description 01/03/2004 Outpatient Historical [facility] Internal Medicine [address] [place] [address] Enrico Stone MD [address] [facility] [address] [place] [address] Social History Tobacco Use Types [...] on filedocumented in this encounter Care Teams Audience Coordinator Relationship Specialty Start Date End Date Puneet Hughes MD [address] [place] [address] PCP - General Internal Medicine 01/03/24 documented as of this encounter
--- OUTSIDE RECORDS SUMMARY | 2024-05-22 05:51 | XMS_ITS | Encounter Summary ---
Author Organization [facility] Address [address] [place] [address] Phone Care Team Providers Care Erosion Control Coordinator Name Role Phone Natasha Bates Primary Care Provider [phone] Reason for Visit * Reason Comments Follow-up S/P AUS Encounter Details Date Type Department Care Team (Late st Contact Info) Description 11/19/2021 10:20 AM CDT Office Visit [facility] Medical Office Building [address] [place] [address] Suzette Rogers MD [address] [facility] [address] [place] [address] LIZET (stress urinary incontinence), male (Primary Dx); Erectile dysfunction after radical prostatectomy Social History Tobacco Use Types Packs/Day Years [...] often do you attend chur ch or sikhism services? More than 4 times per year 06/05/2021 Do you belong to any clubs o r organizations such as zoroastrian groups, unions, fraternal or athletic groups, or [...] place to sleep or slept in a group home (including now)? No 06/05/2021 Sex and Gender Information Value Date Recorded Sex Assigned at Not on file Legal Sex 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 ANNOUNCER Gender Identity Not on file Sexual Orientation Not on file documented as of this encounter Progress Notes * Suzette Rogers MD - 11/19/2021 10:20 AM CDT HPI: Howie Delaney is a 56 y.o. 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 His artificial sphincter was activated in June of this year. He is here for follow-upfor his new AUS. LURN SI-10 questionnaire revealed: 2 for urgency, 1 for urgency incontinence, 0 for stress incontinence with coughing/sneezing, 1 for stress incontinence with exercises/lifting, 1 for pain/discomfort with bladder filling, 1 for delay to start urine stream, 4 for slow or weak urine stream, 4 for dribble, Note: [4=every time, 3=most of the time, 2=about half of time, 1=a few times, 0=never] 4-7/day [score of 1] for frequency, 1/night [score of 1] for nocturia. The LUTS is extremely bothered. The LURN-SI is scanned into medical record. ROS: Review Of Systems has been reviewed [...] Normal affect and mood, oriented x 3. Assessment and Plan: Erectile dysfunction, 1. He has tried and failed PDE5 inhibitors from his primary care physician. He is interested in TriMix. We will set up the session for him to see our nurse practitioner to learn how to do TriMix for counseling and teaching. Male stress urine incontinence History of AUS erosion New implants was performed with a 4.5 cm cuff 2. Is doing well from that perspective, he has minimal stress incontinence, he leaks a few drops, he is not wearing pads. 3. He will call me for any future issues with his artificial urinary sphincter. Linda Rogers MD spinning machine operator (Urology) Division of Urologic Surgery [facility] Office [phone] 11/19/2021 8:09 AM documented in this encounter Plan of Treatment Not on file documented as of this encounter Procedures Procedure Name Priority Date/Time Associated Diagnosis Comments POCT URINALYSIS DIPSTICK Routine 11/19/2021 10:50 AM CDT LIZET (stress urinary incontinence), male documented in this encounter Results * (ABNORMAL) POCT urinalysis dipstick (11/19/2021 10:50 AM CDT) Glucose, ur, POC Negative Negative MG/DL Ketones, ur, POC Negative Negative Blood, ur, POC Negative Negative pH, ur, POC 5.0 5.0 - 8.0 Protein, ur, POC Trace(A) Negative Nitrite, ur, POC Negative Negative Leukocytes, ur, POC Negative Negative Lot Number x Urine 11/19/2021 10:5 0 AM CDT Suzette Rogers MD POINT OF CARE TEST ORDERABLES Final Result documented in this encounter Visit Diagnoses Diagnosis LIZET (stress urinary incontinence), male- Primary Erectile dysfunction after radical prostatectomy documented in this encounter Care Teams Erosion Control Coordinator Relationship Specialty Start Date End Date Natasha Bates PA [address] [place] [address] PCP - General Physician Nylon Hot Wire Cutter 10/08/19 documented as of this encounter
--- OUTSIDE RECORDS SUMMARY | 2024-05-22 05:51 | XMS_ITS | Encounter Summary ---
Author Organization [facility] Address [address] [place] [address] Phone Care Team Providers Care Vp Genetic Name Role Phone Natasha Bates Primary Care Provider [phone] Kimberly Bell YIELD IMPROVEMENT ENGINEER Unavailable Encounter Details Date Type Department Care Team (Late st Contact Info) Description 06/12/2021 Orders Only [facility] ([facility]) - [facility] Urology [address] [facility] 11th [place] [address] [place] [address] Suzette Rogers MD [address] [facility] [address] [place] [address] Social History Tobacco Use Types [...] week 06/05/2021 How often do you attend [facility] or faith services? More than 4 times per year 06/05/2021 Do you belong to any clubs o r organizations such as orthodox groups, unions, fraternal or athletic groups, or [...] place to sleep or slept in a correction (including now)? No 06/05/2021 Sex and Gender Information Value Date Recorded Sex Assigned at Not on file Legal Sex 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 APPEALS RN Gender Identity Not on file Sexual Orientation Not on file documented as of this encounter Plan of Treatment Not on file documented as of this encounter Procedures Procedure Name Priority Date/Time Associated Diagnosis Comments SPECIMEN STATUS REPORT Routine 06/12/2021 11:50 AM APPEALS RN BASIC METABOLIC PANEL Routine 06/12/2021 11:50 AM APPEALS RN documented in this encounter Results * Specimen Status Report (06/12/2021 11:50 AM APPEALS RN) Specimen Status Report Comment [facility] - 01 Comment: Ambig Abbrev BMP8 Default Ambig Abbrev BMP8 Default A hand-written panel/profile was received from your office. In accordance with the [facility] Ambiguous Test Code Policy dated November 2002, we have completed your order by using the closest currently or formerly recognized AMA panel. ??We have assigned Basic Metabolic Panel (8), Test Code #[id number] to this request. If this is not the testing you wished to receive on this specimen, please contact the [facility] Client Inquiry/Technical Services Department to clarify the test order. ??We appreciate your business. 06/12/2021 11:5 0 AM APPEALS RN 06/12/2021 Narrative [facility] - 06/13/2021 6:10 AM APPEALS RN Performed at: ??01 - [address] ??[id number] Human Resources Designate: Mane Sanchez PhD, Phone: ??[phone] us Suzette Rogers MD LAB BLOOD ORDERABLES Final Res ult [facility] - 01 * (ABNORMAL) Basic metabolic panel (06/12/2021 11:50 AM APPEALS RN) Glucose 94 65 - 99 mg/dL [facility] - 01 BUN 26(H) 6 - 24 mg/dL [facility] - 01 Creatinine, Serum 1.30(H) 0.76 - 1.27 mg/dL [facility] - 01 eGFR If NonAfricn Am 61 >59 mL/min/1. 73 [facility] - 01 eGFR If Africn Am 71 >59 mL/min/1. 73 [facility] - 01 Comment: In accordance with recommendations from the NKF-ASN Task force, ??[facility] is in the process of updating its eGFR calculation to the ??2020 CKD-EPI creatinine equation that estimates kidney function ??without a race variable. BUN/creat ratio 20 9 - 20 [facility] - 01 Sodium 144 134 - 144 mmol/L [facility] - 01 Potassium, sr 5.3(H) 3.5 - 5.2 mmol/L [facility] - 01 Chloride 107(H) 96 - 106 mmol/L [facility] - 01 CO2 27 20 - 29 mmol/L [facility] - 01 Calcium 9.0 8.7 - 10.2 mg/dL [facility] - 01 06/12/2021 11:5 0 AM APPEALS RN 06/12/2021 Narrative [facility] - 06/13/2021 6:10 AM APPEALS RN Performed at: ??01 - [facility] [address] ??[id number] Human Resources Designate: Mane Sanchez PhD, Phone: ??[phone] us Suzette Rogers MD LAB BLOOD ORDERABLES Final Res ult [facility] - 01 documented in this encounter Visit Diagnoses Not on filedocumented in this encounter Additional Health Concerns Infection Onset Date Last Indicated Resolved Time COVID19 06/03/2021 06/03/2021 06/14/2021 3:05 AM APPEALS RN documented as of this encounter Care Teams Vp Genetic Relationship Specialty Start Date End Date Natasha Bates PA [address] [place] [address] PCP - General Physician Medication Administration Professional 10/08/19 Kimberly Bell LCSW [address] [facility] [place] Mailstop [phone] [place] [address] SHOP Outpatient Hand Miter Operator 06/05/21 07/05/21 documented as of this encounter
--- OUTSIDE RECORDS SUMMARY | 2024-05-22 05:51 | XMS_ITS | Encounter Summary ---
Author Organization [facility] Address [address] [place] [address] Care Team Providers Care Drier And Grinder Tender Name Role Phone Natasha Bates Primary Care Provider [phone] Reason for Visit * Reason Comments Chart Review Encounter Details Date Type Department Care Team (Late st Contact Info) Description 07/06/2021 SHOP/CHAP Subsequent Outreach [facility] OP CASE MANAGEMENT [address] [place] [address] Kimberly Bell, [facility] [address] [facility] ([facility] Mailstop [phone] [place] [address] Social History Tobacco Use Types Packs/Day Years [...] often do you attend chur ch or jewish services? More than 4 times per year 06/05/2021 Do you belong to any clubs o r organizations such as adventist groups, unions, fraternal or athletic groups, or [...] place to sleep or slept in a usp (including now)? No 06/05/2021 Sex and Gender Information Value Date Recorded Sex Assigned at Not on file Legal Sex 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 ECONOMETRICS PROFESSOR Gender Identity Not on file Sexual Orientation Not on file documented as of this encounter Progress Notes * Kimberly Bell, JOAN - 07/06/2021 2:21 PM CST Pt has been discharged 30 days and SHOP episode will be closed. OMETRICS PROFESSOR documented in this encounter Plan of Treatment Not on file documented as of this encounter Visit Diagnoses Not on filedocumented in this encounter Additional Health Concerns Infection Onset Date Last Indicated Resolved Time COVID: Recovered Comment:Added based on recent COVID infection. 06/14/2021 06/15/2021 10/12/2021 3:05 AM C DT documented as of this encounter Care Teams Drier And Grinder Tender Relationship Specialty [place] [address] [place] [address] PCP - General Physician Special Agent Secret Service 10/08/19 documented as of this encounter
--- OUTSIDE RECORDS SUMMARY | 2024-05-22 05:51 | XMS_ITS | Clinical Summary ---
Author Organization [facility] Address [address] [place] [address] Care Team Providers Care Sales Promoter Name Role Phone Natasha Bates Primary Care Provider [phone] Allergies No known active allergies Medications furosemide (LASIX) 20 mg tabletIndicatio ns:Edema Take 20 mg by mouth daily as needed Active multivitamin tabletIndicatio ns:Vitamin Deficiency Take 1 tablet by mouth every morning Active allopurinoL (ZYLOPRIM) 100 mg tabletIndicatio ns:prevention of acute gout attack Take 100 mg by mouth 2 (two) times a day Active gabapentin (NEURONTIN) 600 mg tabletIndicatio ns:Neuropathic Pain Take 600-1,200 mg by mouth 2 (two) times a day as needed Active atorvastatin (LIPITOR) 40 mg tabletIndicatio ns:hyperlipidem ia Take 40 mg by mouth nightly Active CALCIUM ORALIndications :supplement Take 1 capsule by mouth every morning Active cyanocobalamin, vitamin B-12, (VITAMIN B-12 ORAL)Indication s:supplement Take 1 capsule by mouth every morning Active UNABLE TO FIND Administer into each nostril nightly 3 L Home oxygen with CPAP Active acetaminophen (TYLENOL) 500 mg tablet Take 2 tablets (1,000 mg total) by mouth every 6 (six) hours as needed for pain 40 tablet 1 Active ibuprofen (ADVIL,MOTRIN) 600 mg tablet Take 1 tablet (600 mg total) by mouth every 6 (six) hours as needed for pain for up to 20 doses 20 tablet 1 Active oxyCODONE (ROXICODONE) 5 mg immediate release tabletIndicatio ns:Pain Take 1 tablet (5 mg total) by mouth every 6 (six) hours as needed for pain for up to 10 doses 10 tablet 1 Active Additional Information Patient not taking.Reported on 07/07/2021 FLUoxetine (PROzac) 20 mg capsuleIndicati ons:depression Take 20 mg by mouth nightly 1 Active loratadine (CLARITIN) 10 mg tabletIndicatio ns:Allergic Rhinitis Take 10 mg by mouth daily as needed 1 Active Veltassa packetIndicatio ns:hyperkalemia Take 8.4 g by mouth nightly 1 Active oxyCODONE (ROXICODONE) 5 mg immediate release tabletIndicatio ns:Pain Take 1 tablet (5 mg total) by mouth every 6 (six) hours as needed for pain 10 tablet 2 Active Additional Information Patient not taking.Reported on 07/07/2021 Active Problems Problem Noted Date Diagnosed Date Male stress incontinence 04/30/2021 Overview (04/30/2021): Added automatically from request for surgery [id number] 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 Essential hypertension 07/22/2017 Assessment & Plan (07/22/2017 3:16 PM AUTO PARTS PROFESSIONAL): -continue healthy diet and exercise -continue metoprolol, lasix Encounters Date Type Department Care Team Description 04/27/[address] [facility] Surgery [address] [place] [address] Amanda Mak CMA from Last 3 Months Immunizations Name Administration Dates Next Due Influenza, Quadrivalent, Spl it, Preservative Free, Intramuscular 05/28/2021,05/11/2019,04/29/2015 Influenza, Unspecified 02/24/2020 Pneumococcal Polysaccharide PPV23 03/31/2020,12/2014 Surgical History Surgery Date Site/Laterality Comments BLADDER SURGERY 05/23/2017 - 05/22/2018 insertion of artificial sphincter OTHER SURGICAL HISTORY 05/23/2016 - 05/22/2017 x2 surgeries related to hematuria ESOPHAGOGASTRODUODENOSCOPY ? COLONOSCOPY 05/23/2013 - 05/22/2014 SLEEVE GASTROPLASTY 08/04/2020 gastric sleeve URINARY SPHINCTER REVISION 01/30/2021 removal Medical History Medical History Date Comments Angiospasm (HCC) Hypercholesterolemia Sleep apnea CPAP with 3 L ox ygen Hypertension CHF (congestive heart failure) (CMS/HCC) (HCC) CKD (chronic kidney disease), stage III (HCC) Pulmonary hypertension (HCC) Fatty liver Anemia Hematuria Bladder spasms History of blood transfusion Delayed emergence from general anesthesia denies any unplanned admission Social History Tobacco Use Types Packs/Day Years [...] often do you attend chur ch or evangelical services? More than 4 times per year 06/05/2021 Do you belong to any clubs o r organizations such as restoration groups, unions, fraternal or athletic groups, or [...] place to sleep or slept in a residential (including now)? No 06/05/2021 Sex and Gender Information Value Date Recorded Sex Assigned at Not on file Legal Sex 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 AUTO PARTS PROFESSIONAL Gender Identity Not on file Sexual Orientation Not on file Obstetrics History Last Filed Vital Signs Vital Sign Reading Time Taken Comments Blood Pressure 114/63 06/04/2021 3:18 PM AUTO PARTS PROFESSIONAL Pulse 58 06/04/2021 3:18 PM AUTO PARTS PROFESSIONAL Temperature 36.8 ??C (98.2 ??F) 06/04/2021 3:18 PM CS T Respiratory Rate 18 06/04/2021 3:18 PM AUTO PARTS PROFESSIONAL Oxygen Saturation 96% 06/04/2021 3:18 PM AUTO PARTS PROFESSIONAL Inhaled Oxygen Concentration - - Weight 127.5 kg (281 lb) 05/27/2021 11:00 AM AUTO PARTS PROFESSIONAL Height 182.9 cm (6') 05/27/2021 11:00 AM AUTO PARTS PROFESSIONAL Body Mass Index 38.11 05/27/2021 11:00 AM AUTO PARTS PROFESSIONAL Plan of Treatment Health Maintenance Due Date Last Done Comments Colon Cancer Screening-Colonoscopy 1964 Depression Screening 1964 Hepatitis C Screening 1964 Prostate Cancer Screening-PSA 1964 DTaP/Tdap/Td Vaccine (1 - Tdap) 11/13/1975 Hepatitis B Screening 1982 Regular Well Visit/Exam 18-64 1982 Zoster Vaccine (1 of 2) 2014 Covid-19 Vaccine ( season) 2024 04/27/2021, 07/09/2020, 06/06/2020 Influenza Vaccine (#1) 2024 , 02/24/2020, 05/11/2019, Additional history exists Pneumococcal vaccine <65 Aged Out 03/31/2020, 12/2014 No longer eligible based on patient's age to complete this topic Medical Devices Implanted Type Area Heel Layer Device Identifier Shelf Expiration Date Model / Serial / Lot [employer] [id number] [id number] 800 Kit Accessory Sterile Disposable Latex Free Urinary - [id number] - [id number] Implanted:Qty : 1 on 05/27/2021 by Suzette Rogers MD at [facility] Other - see comments N/A: Urethra [employer] 02/22/2026 [id number] / [id number] / [employer] [id number] Ams 800 Control Pump Sphincter Implant Urological Inhibizone - [id number] - [id number] Implanted:Qty : 1 on 05/27/2021 by Suzette Rogers MD at [facility] Other - see comments N/A: Urethra [employer] 04/03/2023 [id number] / [id number] / [employer] [id number] Ams 800 Pressure Balloon Sphincter 61-70cu Cm Implant Urological - [id number] Implanted:Qty : 1 on 05/27/2021 by Suzette Rogers MD at [facility] Other - see comments N/A: Urethra [employer] 03/23/2026 [id number] / / [employer] [id number] Ams 800 4.5cm Occlusive Cuff Sphincter Implant Urological - [id number] Implanted:Qty : 1 on 05/27/2021 by Suzette Rogers MD at [facility] Other - see comments N/A: Urethra [employer] 02/13/2023 [id number] / / Insurance [facility] [place] Advance [place] For more information, please contact: [phone] Documents on File Type Date Recorded Patient Assembly Line Robot Operator Expl anation ADVANCE DIRECTIVE 09/06/2017 3:37 PM ADVANCE DIRECTIVE 07/26/2017 8:24 AM * Full Code (Latest Code Status on File) Date Activated Date Inactivated Comments 06/03/2021 5:02 PM 06/04/2021 10:18 PM * Full Code Date Activated Date Inactivated Comments 05/27/2021 3:57 PM 05/28/2021 5:40 PM * Full Code Date Activated Date Inactivated Comments 01/30/2021 6:43 PM 01/31/2021 5:06 PM * Full Code Date Activated Date Inactivated Comments 07/22/2017 5:24 AM 07/22/2017 9:00 PM Care Teams Sales Promoter Relationship Specialty [place] [address] [place] [phone] PCP - General Physician Full Stack Web Developer 10/08/19
--- OUTSIDE RECORDS SUMMARY | 2024-05-22 05:51 | XMS_ITS | Encounter Summary ---
Author Organization [facility] Address [address] [place] [address] Care Team Providers Care Heavy Mobile Equipment Repairer Name Role Phone Puneet Hughes MD Primary Care Provider [phone] Encounter Details Date Type Department Care Team (Late st Contact Info) Description 01/03/2004 Outpatient Historical [facility] Internal Medicine [address] [facility] [place] [address] Enrico Stone MD [address] [facility] [address] [place] [address] Social History Tobacco Use Types [...] on filedocumented in this encounter Care Teams Heavy Mobile Equipment Repairer Relationship Specialty Start Date End Date Puneet Hughes MD [address] [place] [address] PCP - General Internal Medicine 01/03/24 documented as of this encounter
--- OUTSIDE RECORDS SUMMARY | 2024-05-22 05:51 | XMS_ITS | Encounter Summary ---
Author Organization [facility] Address [address] [place] [address] Care Team Providers Care Software Engineer Sales Name Role Phone Unavailable Primary Care Provider Unavailabl e Reason for Visit * Auth/Cert Specialty Diagnoses / Procedures Referred By Malena sagastume Referred To Contact Multi Specialty Diagnoses MORBID OBESITY Procedures KS LAP, FELICIANO RESTRICT PROC, LONGITUDINAL GASTRECTOMY SLEEVE GASTRECTOMY [facility] Operating Room [address] [place] [address] Referral ID Status Reason Start Date Expiration Date Visits Re quested Visits Authorized [id number] 1 1 Encounter Details Date Type Department Care Team (Latest Contact Info) Description 08/04/2020 8:18 AM CDT - 08/05/2020 3:54 PM CDT Hospital Encounter [facility] Surgery [address] [place] [address] Kelvin Woods MD [id number] [place] [address] [place] [address] Discharge Disposition: Home or Self Care Social [...] have Coronavirus / COVID-19? No / Unsure 08/04/2020 9:19 AM CDT documented as of this encounter Last Filed Vital Signs Vital Sign Reading Time Taken Comments Blood Pressure 111/54 08/05/2020 11:53 AM CDT Pulse 72 08/05/2020 11:53 AM CDT Temperature 36.6 ??C (97.9 ??F) 08/05/2020 1 1:53 AM CDT Respiratory Rate 20 08/05/2020 11:5 3 AM CDT Oxygen Saturation 93% 08/05/2020 11: 53 AM CDT Inhaled Oxygen Concentration - - Weight 161.3 kg (355 lb 9.6 oz) 021 10:17 AM CDT Height 185.4 cm (6' 1 ) 08/04/2020 10:1 7 AM CDT Body Mass Index 46.92 08/04/2020 10:17 AM CDT documented in this encounter Discharge Summaries * Kelvin Woods MD - 08/05/2020 1:22 PM CDT Diagnosis: Morbid obesity. Operation: Laparoscopic gastric sleeve. Complications: None. Patient discharged to home in stable condition. documented in this encounter Discharge Instructions * Discharge Instructions* Marisel Aguilar RN - 08/04/2020 10:18 PM CDT HOME DISCHARGE INSTRUCTIONS AND MEDICATIONS Physician Follow Up (bring all medications to office): See above. Medications for home home medication sheet reviewed by your physician and prescription(s) written for home Contact physician for continued temperature 101 degrees or greater, worsening pain or presence of pain unrelieved by medication, uncontrolled nausea/vomting, loss of appetite/liquid intake, increasing cough with shortness of breath, unusual redness, swelling, warmth, drainage or ordor from your incision or from your cast, tenderness, swelling or redness in the calf muscles of either leg, change in or no urine, change in or no bowel movement and increased shortness of breath, swelling in ankles,legs or feet, weight change of 5 pounds or more over 2 days, dizzziness or unusual fatigue or weakness Diet: ?? Clear liquid diet for 1 week ?? You will be advanced to full liquid diet at your follow-up visit ?? Maintain oral intake of at least 6-8 oz. of fluid per hour Activity: ?? Light activity as tolerated ?? No heavy lifting over 10-15 lbs until otherwise instructed by your surgeon ?? Walk several times daily to prevent blood clots, do sets of foot pumps while laying or sitting ?? Cough and deep breath to prevent pneumonia/continue with use of incentive spirometer x10/hourly ?? Check with Physician about returning to work or school ?? Do not drive while taking Narcotic (Pain) medications Dressing and wound care: ?? May wash incisions with soap and water and pat dry ?? May shower ?? Do not tub bathe or soak incision until otherwise instructed by your surgeon @ follow-up ?? Topical skin glue to laparoscopic incisional sites - OK to leave open to air, do not scrub ON-Q Pump: ?? If you have an ON-Q Pump: When ball is completely compressed (you should feel a hard tube in thecenter of the ball), you may remove the dressing and shower to remove the catheter. Make sure you see a black tip at the end of the catheter once removed. ?? If you have any of these symptoms, clamp pump and notify the physician: increased pain; fever; chills; difficulty breathing; redness, warmth, or draining at insertion site; blurred vision; ringingin the ears; metallic taste in mouth; numbness to mouth; drowsiness or confusion ?? If you are having increased pain, make sure the clamps are open. Keep the sensor taped to the skin. Ways to Reduce Surgical Site infections at Home: ?? Always clean your hands before and after caring for your wound. ?? Before you go home, make sure you know whom to contact if you have questions or problems after you go home. ?? Before and after surgery, it is important to keep you and your environment as clean as possible.Use clean linens, wear clean clothing, and use disinfectants to clean surfaces such as bathroom fixtures. Don't allow pets in your bed while you are recovering from surgery. ?? If you have any symptoms of and infection, such as redness and pain at the surgery site, drainage or fever, call your doctor immediately. Labs and Procedures Options During your hospitalization, the following tests and procedures were performed: lab work, surgery If you have any questions regarding your lab tests or procedures during your hospitalization, please contact your physician. documented in this encounter Medications at Time of Discharge Medication Sig Dispensed Refills Start Date End Date gabapentin (NEURONTIN) 300 mg capsule Take 600 mg by mouth daily at bedtime. atorvastatin (LIPITOR) 40 mg tablet Take 40 mg by mouth daily at bedtime. allopurinoL (ZYLOPRIM) 100 mg tablet Take 200 mg by mouth 2 times daily. albuterol HFA 90 mcg inhaler Take 2 Puffs by inhalation every 4 hours as needed for Shortness of Breath. 03/18/2020 ondansetron (Zofran ODT) 8 mg Tablet, Rapid Dissolve Dissolve 1 tablet on top of tongue then swallow with saliva every 8 hours as needed for nausea or vomiting 20 Tablet 2 08/05/2020 05/03/2024 multivitamin (DAILY-RAKESH) tablet Take 1 Tablet by mouth daily. 05/03/2024 isosorbide mononitrate (IMDUR) 30 mg Extended Release 24 hour tablet Take 45 mg by mouth daily. 12/14/2019 04/24/2024 furosemide (LASIX) 20 mg tablet Take 40 mg by mouth 1 time daily as needed. 05/03/2024 carvediloL (COREG) 25 mg tablet Take 25 mg by mouth 2 times daily. 04/24/2024 acetaminophen (TYLENOL) 325 mg tablet Take 650 mg by mouth every 6 hours as needed for Pain. Neck and arm pain 11/07/2019 05/03/2024 documented as of this encounter Progress Notes * Tamika Retana RCP - 08/05/2020 2:14 AM CDT Pt on home cpap. No concerns * Sully Boyer, PHARMACIST - 08/04/2020 8:55 AM CDT Clinical Pharmacy Note Cefazolin Surgical Prophylaxis Weight-Based Dosing Protocol: The preoperative surgical prophylaxis order for cefazolin 2 grams IV was changed to cefazolin 3 grams IV based on the patient???s weight of Wt Readings from Last 1 Encounters: 07/21/20 (!) 170.3 kg (375 lb 6.4 oz) per the Medical Executive and Pharmacy and Therapeutics Committee Cefazolin Surgical Prophylaxis Weight-Based Dosing Protocol (Adult). Sully Boyer, PHARMACIST 08/04/2020 documented in this encounter H&P Notes * Kelvin Woods MD - 08/04/2020 10:01 AM CDT [facility] History and Physical Patient: Howie Carr : 1965 Date: 08/04/2020 HISTORY OF PRESENT ILLNESS: Patient is a 54 y.o. male who is scheduled for VSG Past Medical History: Diagnosis Date ??? Anginal pain ??? Anxiety ??? Cervical stenosis of spine ??? CHF (congestive heart failure) ??? Chronic kidney failure, stage 3 (moderate) ??? Depression ??? Difficulty sleeping UNABLE TO LAY FLAT ??? Edema legs ??? Fainted with BP dropping ??? Fatty liver and enlarged ??? GERD (gastroesophageal reflux disease) h/o ??? Gout ??? Gross hematuria ??? History of complications due to general anesthesia difficulty awakening, got belligerent, N/V ??? Hyperlipidemia ??? Hypertension ??? Hypotension Generally runs low BP around 90/70, can be orthostatic ??? Neuropathy feet ??? Obstructive sleep apnea C-pap ??? Panic attack ??? Post-operative nausea and vomiting ??? Prediabetes ??? PVD (peripheral vascular disease) Possible, being tested for this-have numbess and tingling in legs ??? 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 ??? Varicose vein of leg Past Surgical History: Procedure Laterality Date ??? HX BLADDER SURGERY 2016 x2- exploratory surgery, sphincter muscles were cut; prostate was damaged, and hole in bladder ??? HX URETHRAL DILATION ??? HX URINARY SURGERY Artificial urinary sphincter-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 catheterized Medications Prior to Admission Medication Sig Dispense Refill Last Dose ??? isosorbide mononitrate (IMDUR) 30 mg Extended Release 24 hour tablet Take 45 mg by mouth daily.08/04/2020 at Unknown time ??? gabapentin (NEURONTIN) 300 mg capsule Take 300 mg by mouth 3 times daily. 08/03/2020 at Unknown time ??? furosemide (LASIX) 20 mg tablet Take 40 mg by mouth 2 times daily. 08/03/2020 at Unknown time ??? carvediloL (COREG) 25 mg tablet Take 25 mg by mouth 2 times daily. 08/04/2020 at Unknown time ??? atorvastatin (LIPITOR) 40 mg tablet Take 40 mg by mouth daily at bedtime. 08/03/2020 at Unknown time ??? allopurinoL (ZYLOPRIM) 100 mg tablet Take 200 mg by mouth 2 times daily. 08/03/2020 at Unknown time ??? acetaminophen (TYLENOL) 325 mg tablet Take 650 mg by mouth every 6 hours as needed for Pain. Neck and arm pain Past Month at Unknown time ??? multivitamin (DAILY-RAKESH) tablet Take 1 Tablet by mouth daily. 07/27/2020 ??? albuterol HFA 90 mcg inhaler Take 2 Puffs by inhalation every 4 hours as needed for Shortness of Breath. > Month at Unknown time No Known Allergies Social History Socioeconomic History [...] session: 1 or 2 Binge frequency: Never ??? Drug use: Never ??? Sexual activity: Not on file Lifestyle ??? Physical activity Days per week: Not on file Minutes per session: Not on file ??? Stress: Not on file Relationships ??? Social connections Talks on phone: Not on file Gets together: Not on file Attends latter-day service: Not on file Active member of [...] No family history on file. REVIEW OF SYSTEMS: Constitutional: no weight loss, no malaise Respiratory: no shortness of breath, no chest pain Cardiovascular: no angina, no palpitation Gastrointestinal: no dysphagia, no abdominal pain Musculoskeletal: no muscle pain PHYSICAL EXAM: There were no vitals taken for this visit. Head: Normal Lungs: Clear to auscultation bilaterally Airway: No apparent abnormalities Heart: Regular rate and rhythm Abdomen: soft, nontender, nondistended Neurologic: alert and oriented x 3 IMPRESSION: 1. Indications for procedure as noted in HPI. PLAN: Howie Carr is scheduled for VSG Risks, benefits, potential complications and the postoperative course were fully discussed with the patient and the surgical consent was obtained. Risks of theprocedure include but are not limited to sore throat, bleeding, perforation, and complications fromanesthesia.The patient verbally states they understand with no further questions and wish to proceed with the above planned procedure. All questions were answered to their verbally indicated satisfaction. Kelvin Woods MD documented in this encounter Consult Notes * Paul Manrique MD - 08/04/2020 6:13 PM CDTAssociated Order(s): [facility] DOS: 08/04/2020 DOA: 08/04/2020 Reason for consult: Medical management Referring physician: Kelvin Woods MD HPI: Howie Carr is a 54 y.o. male whom I was asked to see for medical management. he is admitted today for elective laparoscopic sleeve gastrectomy by her Bariatric surgeon. No complication postoperatively, estimated blood loss was 50cc. He has Hx of HTN, CHF, Gout, CKD III. Pt reports extensive workup in [facility] last year with heart cath that was neg for CAD. He is not on ASA because it caused hematuria in the past. He is somewhat lethargic from anesthesia but responds well to my questions. He has some abdominal pain however he denies chest pain or SOB, no N/V/D. No fever, chills or nightsweats. Past Medical History: Diagnosis Date ??? Anginal pain ??? Anxiety ??? Cervical stenosis of spine ??? CHF (congestive heart failure) ??? Chronic kidney failure, stage 3 (moderate) ??? Depression ??? Difficulty sleeping UNABLE TO LAY FLAT ??? Edema legs ??? Fainted with BP dropping ??? Fatty liver and enlarged ??? GERD (gastroesophageal reflux disease) h/o ??? Gout ??? Gross hematuria ??? History of complications due to general anesthesia difficulty awakening, got belligerent, N/V ??? Hyperlipidemia ??? Hypertension ??? Hypotension Generally runs low BP around 90/70, can be orthostatic ??? Neuropathy feet ??? Obstructive sleep apnea C-pap ??? Panic attack ??? Post-operative nausea and vomiting ??? Prediabetes ??? PVD (peripheral vascular disease) Possible, being tested for this-have numbess and tingling in legs ??? 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 ??? Varicose vein of leg Past surgical history : has a past surgical history that includes urinary surgery; bladder surgery (2017); and urethral dilation. Allergies: Allergies Allergen Reactions ??? Aspirin Other (See Comments) hematuria Home medications: Prior to Admission medications Medication Sig Start Date End Date Taking? Authorizing Provider isosorbide mononitrate (IMDUR) 30 mg Extended Release 24 hour tablet Take 45 mg by mouth daily. 12/14/19 Yes Provider, Historical gabapentin (NEURONTIN) 300 mg capsule Take 300 mg by mouth 3 times daily. Yes Provider, Historical furosemide (LASIX) 20 mg tablet Take 40 mg by mouth 2 times daily. Yes Provider, Historical carvediloL (COREG) 25 mg tablet Take 25 mg by mouth 2 times daily. Yes Provider, Historical atorvastatin (LIPITOR) 40 mg tablet Take 40 mg by mouth daily at bedtime. Yes Provider, Historical allopurinoL (ZYLOPRIM) 100 mg tablet Take 200 mg by mouth 2 times daily. Yes Provider, Historical acetaminophen (TYLENOL) 325 mg tablet Take 650 mg by mouth every 6 hours as needed for Pain. Neck and arm pain 11/07/19 Yes Provider, Historical multivitamin (DAILY-RAKESH) tablet Take 1 Tablet by mouth daily. Provider, Historical albuterol HFA 90 mcg inhaler Take 2 Puffs by inhalation every 4 hours as needed for Shortness of Breath. 03/18/20 Provider, Historical Family history: Family History Problem Relation Name Age of Onset ??? Heart Disease Mother Social history: reports that he has never smoked. He has never used smokeless tobacco. He reports current alcohol use. He reports that he does not use drugs. ROS: Positive (+) Constitutional : headache (-), weight loss (-), weight gain (-) fever (-), chills (-), night sweats(-) Eyes: blurring of vision (-), double vision (-), itching (-), dryness (-), tearing (-), loss of vision (-) wears glasses (-) Ears: decreased hearing (-), ear discharge (-), earache (-), ringing (-), Nose: itching (-), bleeding (-), congestion (-), drainage (-), sinus headache (- ) allergies(-) Respiratory: cough (-), wheezing (-), PND (-), orthopnea (-), shortness of breath (-), pleurisy (-), hemoptysis (-) Hoarseness of voice (-) Cardiac: Chest pain (-), exertional dyspnea (-), heart attack (-), angina (-), heart failure (-), swelling of feet (-) palpitations (-), arrythmia (-), Breast: discharge (-), pain (-), lump (-), cancer (-) Gynecologic history: menorrhagia (-),amenorhea (-), h/o STDs (-), vaginal discharge (-), irregular menses (-) Gastro intestinal: nausea (-), vomiting (-), diarrhea (-), abd pain (+), constipation (-), bleedingper rectum (-), hemorrhoids (-) heart burn (-) hepatitis (-) Genito urinary: burning urination (-), frequency urination (-), nocturia (-), blood in the urine (-), dysuria (-), kidney stones (-) urinary incontinence(-) Musculoskeletal: joint pain (-), limb pain (-), joint swelling (-), gout (-), arthritis (-), back pain (-), neck pain (-) Hematologic: anemia (-), low blood counts (-), transfusions (-), cancer (-) low platelets (-) Endocrine: Polyuria (-), polydypsia (-), polyphagia (-), hair loss (-), lethargy(-), weight gain (-) Skin: Rash (-), itching (-) mole (-), cancer (-) , dryness (-) Psychiatric: depression (-), anxiety (-), bipolar disorder (-), suicidal ideations (-), schizophrenia (-), insomnia (-) EMERGENCY PLANNING AND RESPONSE MANAGER: Lightheadedness (-), dizziness (-), seizures (-), strokes (-), weakness (- ), tingling (-), numbness (-), TIA (-), memory loss (-) On examination He appears in no apparent distress. Well developed well nourished. Alert and oriented times three, pleasant and cooperative. BP 112/66 (BP Location: Right arm, Patient Position (BP): Supine) Pulse 77 Temp 97.4 ??F (36.3 ??C) (Axillary) Resp 20 Ht 6' 1 (1.854 m) Wt (!) 161.3 kg (355 lb 9.6 oz) SpO2 93% BMI 46.92 kg/m?? HEENT: No pallor, No icterus, head atraumatic, normocephalic, PERRL Thoat: No exudates, mucosa moist Neck: supple, no JVD, no nodes, no thyromegaly, RS: CTA bilaterally CVS: S1, S2 heard, RRR Abdomen: soft, non tender, BS -ve, no organomegaly or mass Peripheries: no edema, no calf tenderness EMERGENCY PLANNING AND RESPONSE MANAGER: Grossly non focal Psych: AAOx3. Normal affect Skin: No rash Lab Results Component Value Date/Time WBC 11.9 (H) 08/04/2020 02:16 PM HGB 12.8 (L) 08/04/2020 02:16 PM HCT 39.5 (L) 08/04/2020 02:16 PM MCV 90.6 08/04/2020 02:16 PM PLT 205 08/04/2020 02:16 PM Lab Results Component Value Date/Time BUN 33 (H) 08/04/2020 09:05 AM NA 138 08/04/2020 09:05 AM K 4.7 08/04/2020 09:05 AM CL 98 08/04/2020 09:05 AM CO2 26 08/04/2020 09:05 AM No components found for: TROPT Lab Results Component Value Date/Time ALT 18 07/21/2020 10:53 AM AST 18 07/21/2020 10:53 AM ALKPHOS 91 07/21/2020 10:53 AM No results found for: WBCU, EPITHELIALC, BACTERIA Xr Upr Gi Air Contrast Result Date: 07/21/2020 AIR-CONTRAST UPPER GASTROINTESTINAL SERIES DATE: 07/21/2020 12:05 PM HISTORY: Preoperative evaluationfor gastric sleeve surgery Fluoroscopy time one minute, 15 images FINDINGS: An air-contrast upper gastrointestinal series is performed revealing normal esophageal mucosal contour, caliber, and motility. The stomach and duodenum are normal without mass or peptic ulcer disease. IMPRESSION: Normal. DICTATION LOCATION: [address] Chart reviewed, consults, progress notes, data, labs and imaging reviewed Assessment and plan: ?? Morbid obesity d/t excess calories with comorbidities: s/p laparoscopic vertical sleeve gastrectomy. postop mgt per bariatric surgery: pain control. NPO today, likely clear liquid from am ?? Ess HTN. Prn IV hydralazine added. Resume home meds from am ?? Leukocytosis. Reactive and postop. No evidence of infection. Monitor. ?? Chronic CHF (unknown syst vs diast). euvolemic on exam. Decreased LR rate. Resume HF meds from am ?? A/CKD III 2/2 Ess HTN. C/w LR. Avoid hepatotoxic drugs. ?? Hx of Gout. Allopurinol from am ?? MIRELLA. Supposedly on CPAP ?? DVT ppx: heparin ?? Gi ppx: Pepcid Disposition: per Primary team D/w RN Education was provided using Teach Back. Patient and/or family present, understands diagnosis, proposed treatment and instructions clearly. 44 minutes were spent in the care of this patient today; greater than 50% of which was spent in family conference, nursing conference and discussion with any consultants. Thanks for the consult will follow along with you Paul Manrique MD documented in this encounter OR Notes * Operative Report - Kelvin Woods MD - 08/04/2020 11:59 AM CDT [facility] PATIENT NAME: Howie Carr DATE OF : 1965 DATE OF SURGERY: 08/04/2020 PREOPERATIVE DIAGNOSIS: Morbid Obesity with Comorbidities POSTOPERATIVE DIAGNOSIS: Morbid Obesity with Comorbidities PROCEDURE: Laparoscopic Vertical Sleeve Gastrectomy with Insertion of Tunneled Abdominal Wall Catheters x2 SURGEON: Kelvin Woods MD BOX CLOSING MACHINE OPERATOR: Dr. Basilio ANESTHESIA: General Endotracheal SPECIMEN: Unremarkable remnant stomach was discarded. ESTIMATED BLOOD LOSS: 50 ml COMPLICATIONS: None OPERATIVE PROCEDURE: The patient was given intravenous antibiotics, sequential stockings, subcutaneous heparin in the preoperative area. After informed consent, the patient was brought to the operating room, placed in a supine position, and underwent general anesthesia. An oral ViSiGi gastric calibration tube was placed. The abdomen was prepped and draped in the usual sterile fashion using ChloraPrep. A Right paramedian incision was made with a scalpel. A 5 mm non-bladed obturator was placed into the peritoneal cavity under direct vision. Pneumoperitoneum was established with CO2 to a maximumpressure of 15. The camera was placed. The exposed liver was unremarkable without mass, and there was no visible abdominal mass. Next a 5 mm trocar in the RUQ, a 5 mm left paramedian then a 5 mm LUQ trocars were placed. The right paramedian was replaced with a 15 mm trocar. A long 45 degree scope was used. The patient was placed in a reverse Trendelenburg position. The diaphragmatic hiatus was inspected, and no dimpling was identified. The greater curvature of the stomach was dissected into the lesser sac using the harmonic scalpel. The greater curvature was devascularized with the harmonic scalpel and extended to the region of the spleen. The short gastric vessels were carefully taken down as dissection continued to the angle of His. Posterior attachments were freed up, the dissection was continued until about 5 cm of the left diaphragmatic richie was wellvisualized. The pylorus was then identified and marked approximately 4 cm proximally. The greater curvature dissection was extended distally to that area. The sleeve dissection was completed and inspe cted, and all posterior attachments were freed up. Next the ViSiGi gastric calibration tube was advanced to the antrum. The first two staple lines were performed using a 60 mm Covidien linear staplerwith black loads and SeamGuard. Subsequent staple loads were using the purple linear staplers with SeamGuard. Care was taken near the incisura to minimize encroachment, and the final staple load was fired approximately 1 cm away from the esophagus, to minimize injury to the esophagus. The gastric calibration tube was slowly withdrawn, and there was no twisting or kinking of the gastric sleeve. There was a technically good gastric sleeve formation and staple line, and with good hemostasis. Therewas no indication for a leak test. The patient was flattened. There remained good hemostasis. An abdominal wall introducer was placed through a separate incision in the xiphoid region. It was tunneled through the subcutaneous fat, theabdominal wall fascia, into the preperitoneal plane along the right subcostal margin. A catheter was placed, the sheath was removed, and the catheter was irrigated with half percent Marcaine. A second abdominal wall introducer was placed through a separate incision in the xiphoid region. The secondwas tunneled through the subcutaneous fat, through the abdominal wall fascia into the preperitonealplane along the left subcostal margin. A catheter was placed, the sheath was removed, and the catheter was irrigated with half percent Marcaine. Both catheters had good patency, they were secured to the skin with Dermabond, Steri-Strips, and Tegaderm. Both catheters were placed under direct laparoscopic visualization. The remnant stomach was then removed through the 15 mm trocar site under direct vision. The removedstomach was carefully inspected, it was unremarkable, and it was discarded. There was no leakage orspillage within the abdomen. The 15 mm trocar site was closed with an 0 Vicryl suture using the Daniel-Amol II system. Then the pneumoperitoneum was released, as the trochars were removed, and there was no bleeding. The wound was irrigated, there was good hemostasis, and the skin edges were approximated with interrupted subcuticular 4-0 PDS suture. Dermabond was applied. The patient did tolerate the procedure well, there were no complications, the patient was brought to the recovery room awake and in stable condition.. Kelvin Woods MD * Jessie-OP - Alejandrina Guthrie RN - 07/01/2020 12:49 PM CST Patient to obtain COVID testing at [facility] per protocol to be done on 08/01/2020 for surgery on 08/04/[address] Woods. DOS changed so covid testing date changed as well. Patient aware of newdate/time. RTISING DISPATCH CLERKS SUPERVISOR documented in this encounter Miscellaneous Notes * Care Plan - Shirin Hernandez RN - 08/05/2020 1:51 PM CDT Programmer Analyst Rounds: Patient sitting on the side of the bed, ambulating in the childress and tolerating small sips of clear liquids without nausea. Patient denies discomfort. Reviewed discharge instructions and contact information for the surgeons and coordinator: Clear liquid diet with protein water. Goal 6-8 oz of clear liquids every hour Ambulating at least 4 times a day Incisional care - [place] Care Shower daily No lifting over 10 - 15 pounds On-Q Pain Pump - Remove on 08/07/2020. Reviewed how to remove catheters Instructed to call the physician office to schedule a follow up appointment for next week. * Initial Assessments - Andrew Son RN - 08/05/2020 11:35 AM CDT Initial Discharge Planning Assessment completed. Discussed Care Management's role and Discharge planning. Discharge Plan: Home with physician follow up Patient's specific goal of care is: Patient's Individualized Goal: go home today Patient will potentially discharge to a SNF/NH? No Care Management visited with patient, via: phone. Prior to admission, patient resides at: own home. Home is one level with no steps, and no rails. Prior to admission, living arrangements: lives alone. Prior to admission, does patient use any of the following DME? Yes [employer] RESPIRATORY DME ORTHO EQUIPMENT BSC: Bedside commode BIPAP BSC: Bedside commode Cane CPAP CPM (Total Knee) Rollator Nebulizer Raised Toilet Seat or Comfort Height Toilet SC: Shower Chair Oxygen Activity at 3 Liter flow/min x SC: Shower Chair Standard Walker Oxygen Continuous Liter 3 flow/min x WW: Wheeled Walker WC: Wheelchair Other: Other: WW: Wheeled Walker Other: Other: Other: DME Provider Name: [employer] x DME Provider Name: How often: continuous Services in the home: NA with [facility]. Maintenance hemodialysis occurs on days NA with [facility]. Treatment time is NA. Emergency contact(s): Extended Emergency Contact Information Primary Emergency Contact: RENATE CARR Mobile Relation: Daughter Secondary Emergency Contact: TIANNA AMARAL Mobile Relation: Friend VICA/Surrogate Decision Maker: Edmar Chirinos Patient identified Edmar Chirinos as their Primary Caregiver. Patient does want caregiver involvedin discharge planning. Caregiver is willing and able to assist with patient's care. Caregiver has not been contacted. Insurance coverage verified: Payor: ANTHEM / Plan: OUT OF STATE BLUE PREFERRED / Product Type: [employer] / Prescription coverage: yes Preferred Pharmacy verified: [id number] [place] [id number] [facility] Employment Status: commentsSelf employed Has VA Benefits: no PCP verified as No primary care provider on file. Patient has not had a stay at an acute care hospital in the last 30 days. Recent Falls?: Last Known Fall: No falls Plan for transportation at discharge: Friend Tianna will transport Patient has a [employer] account: yes Patient has a smart device: Yes Patient's mobile number verified: Yes. Patient's number: Telephone Information: Patient is able to receive text messages: Yes Patient has access to the internet: Yes Readmission Risk Score is Readmission Risk (patient becomes high risk with a score of 8 or greater) 0 Total Score (Last filed: Aug 05, 2020 0600) Comments: None Care Management contact information provided. Care Management will continue to follow and assist asneeded. * Care Plan - Cherry Newman RN - 08/05/2020 8:10 AM CDT 0710 Bedside report received from AVA Pina. Pt up in chair, denies needs when asked. Call light within reach. 0910 Pt remains up in chair. AM medications given per orders. DYNAMOMETER MECHANIC Shirin at bedside. Head to toe assessment completed per flow sheet. 1445 IV removed for discharge. Catheter tip intact. 1530 Discharge instructions given to patient. Pt verbalized understanding. No questions or concernsvoiced at this time. Howie Carr will be discharged via wheelchair to home. Howie Carr is accompanied by spouse and will be transported via private vehicle. * Care Plan - Silvana Aggarwal RN - 08/04/2020 8:10 PM CDT Patient sitting in recliner. Assessment completed. Denies need for pain medication at this time. Coslight intermittent nausea without emesis. Scheduled Pepcid given. Encouraged ambulation and use ofIS. Verbalizes understanding. Abdominal incisions GUERRERO; intact with Exofen. All care explained. Calllight within reach. 2030- Ambulating in halls with SBA. 2230- Appears to be resting with eyes closed. NAD noted. 0010- Patient awake. Co slight intermittent nausea without emesis. PRN Reglan given as ordered. States abdominal incisional pain rated at 2-3 but declines need for Morphine. PRN pain medication education given. Verbalizes understanding. Call light remains within reach. 0200- Appears to be sleeping without distress. 0245- Wakes with movement in room. Denies needs at this time. Flagyl started as ordered. Repositions self in bed. 0350- Patient awake sitting at the side of his bed. IV Ancef started as ordered. 0400- Zofran 4mg given IVP for co slight nausea without emesis. Hycet 15 ML given po for co abdominal pain rated at 5-6/10. Assisted to sit in recliner. Noted VSS in Epic. Call light within reach. 0500- Remains in recliner. Appears to be resting with eyes closed. NAD noted. * Care Plan - Kriss Ward RN - 08/04/2020 2:37 PM CDT 1407 Pt arrival from PACU. AOx4, VSS. Incisions well approximated, no drainage. On-Q pump present, scant amount of moist drainage. Pt denies nausea, c/o soreness to the surgical site, heaviness/gas pain to the epigastric area. 1510 Pt appears to be sleeping * Treatment Plan - Sully Boyer PHARMACIST - 08/04/2020 8:55 AM CDT Cefazolin Surgical Prophylaxis Weight-Based Dosing Protocol (Adult) [facility] ORDERS ARE ENTERED ???PER PROTOCOL?? Enter the protocol in the patient's electronic health record using smartphrase: .rxmscefazolinsurgprotocol Medication Orders o All pre-operative surgical prophylaxis orders for cefazolin on adult patients will be adjusted based on the patients weight by the pharmacist as follows: - Patient weight < 120 kg: - Cefazolin 2000 mg, IV, pre-procedure, once, pre-op - Patient weight >= 120 kg: - Cefazolin 3000 mg IV, pre-procedure, once, pre-op Initiating Department(s): Date: 12/2017 Department: Pharmacy Reviewed: P&T 12/2018, 12/2019; [facility]: 12/2019 Revised: Approved by: Suze Ewing, Nurse Collision Repairer Date: 12/29/2017 Approved by: Mohamud Lemus MD, Electrocardiograph Repairer, Antimicrobial Stewardship Subcommittee Date: 12/20/2017 Approved by: Medical Executive Committee Date: 01/10/2018 Approved by: Pharmacy & Therapeutics Committee Date: 12/29/2017 documented in this encounter Plan of Treatment Not on file documented as of this encounter Procedures Procedure Name Priority Date/Time Associated Diagnosis Comments CBC WITH DIFFERENTIAL Routine 08/05/2020 5:26 AM CDT MAGNESIUM LEVEL Routine 08/05/2020 5:26 AM CDT COMPREHENSIVE METABOLIC PANEL Routine 08/05/2020 5:26 AM CDT CBC WITH DIFFERENTIAL Routine 08/04/2020 2:16 PM CDT POC GLUCOSE Routine 08/04/2020 12:19 PM CDT [place] LAPS GSTRC RSTRICTIV PX LONGITUDINAL GASTRECTOMY 08/04/2020 11:10 AM CDT MORBID OBESITY Special Needs [employer] INSURANCE BCBS. RUTHANN'D PER FAX. CASE BREONNA'D PER SHIRIN BRARIED PSA OF DATE CHANGE. POC GLUCOSE Routine 08/04/2020 9:36 AM CDT BASIC METABOLIC PANEL Stat 08/04/2020 9:05 AM CDT documented in this encounter Results * MAGNESIUM LEVEL (08/05/2020 5:26 AM CDT) MAGNESIUM 1.8 1.6 - 2.6 mg/dL 08/05/2020 6:40 AM CDT [facility] Blood Venipuncture / Unknown 08/05/2020 5:26 AM CDT 08/05/2020 6:09 AM CDT Paul Manrique MD CHEMISTRY ORDERABLES [facility] CLIA# [id number] [place] [address] * (ABNORMAL) COMPREHENSIVE METABOLIC PANEL (08/05/2020 5:26 AM CDT) SODIUM 139 136 - 145 mmol/L 08/05/2020 6:40 AM T [facility] POTASSIUM 4.6 3.4 - 5.1 mmol/L 08/05/2020 6:40 AM [facility] CHLORIDE 100 98 - 107 mmol/L 08/05/2020 6:40 AM T [facility] CO2 23 22 - 29 mmol/L 08/05/2020 6:40 AM T [facility] CALCIUM 8.5(L) 8.6 - 10.4 mg/dL 08/05/2020 6:40 AM T [facility] BUN 43(H) 6 - 20 mg/dL 08/05/2020 6:40 AM [facility] CREATININE 1.68(H) 0.67 - 1.17 mg/dL 08/05/2020 6:40 AM [facility] GLUCOSE 115(H) 74 - 99 mg/dL 08/05/2020 6:40 AM T [facility] TOTAL PROTEIN 7.0 6.3 - 8.7 g/dL 08/05/2020 6:40 AM [facility] ALBUMIN 3.2(L) 3.5 - 5.2 g/dL 08/05/2020 6:40 AM [facility] BILIRUBIN TOTAL 0.3 0.2 - 1.3 mg/dL 08/05/2020 6:40 AM [facility] ALKALINE PHOSPHATASE 102 40 - 150 U/L 08/05/2020 6:40 AM T [facility] AST 40 0 - 41 U/L 08/05/2020 6:40 AM [facility] ALT 27 0 - 41 U/L 08/05/2020 6:40 AM [facility] GFR 43(L) >=60 mL/min/1.7 3 sq meter 08/05/2020 6:40 AM T [facility] Comment: eGFR has not been validated for use in the elderly (> 70 years of age), women, patients with serious co-morbid conditions, or persons with extremes of body size or muscle mass and should also be interpreted with caution in patients with acute kidney failure, dialysis dependent patients, patients reporting exceptional dietary intake (e.g. vegetarian diet, high protein diets, creatine supplementation), and patients with severe liver disease. Based on National Kidney Disease Education Program If patient is , please refer to the GFR result. GFR, 52(L) >=60 mL/min/1.7 3 sq meter 08/05/2020 6:40 AM CDT [facility] ANION GAP 16 8 - 16 mmol/L 08/05/2020 6:40 AM CDT [facility] Blood Venipuncture / Unknown 08/05/2020 5:26 AM CDT 08/05/2020 6:09 AM CDT Paul Manrique MD CHEMISTRY ORDERABLES [facility] CLIA# [id number] [place] [address] * (ABNORMAL) CBC WITH DIFFERENTIAL (08/05/2020 5:26 AM CDT) WBC 8.5 4.5 - 10.5 K/uL 08/05/2020 6:26 AM CDT [facility] RBC 4.48(L) 4.50 - 5.40 M/uL 08/05/2020 6:26 AM CDT [facility] HEMOGLOBIN 13.3(L) 13.6 - 16.5 g/dL 08/05/2020 6:26 AM CDT [facility] HEMATOCRIT 40.6 40.0 - 48.0 % 08/05/2020 6:26 AM CDT [facility] MCV 90.6 82.0 - 99.0 fL 08/05/2020 6:26 AM CDT [facility] MCH 29.7 27.8 - 34.5 pg 08/05/2020 6:26 AM CDT [facility] MCHC 32.8 32.5 - 35.5 g/dL 08/05/2020 6:26 AM CDT [facility] RDW 16.9(H) 11.5 - 14.5 % 08/05/2020 6:26 AM CDT [facility] PLATELETS 215 160 - 420 K/uL 08/05/2020 6:26 AM CDT [facility] MPV 11.0 8.7 - 12.7 fL 08/05/2020 6:26 AM CDT [facility] NEUTROPHILS 79(H) 45 - 70 % 08/05/2020 6:26 AM CDT [facility] LYMPHOCYTES 16 16 - 45 % 08/05/2020 6:26 AM CDT [facility] MONOCYTES 4 3 - 13 % 08/05/2020 6:26 AM CDT [facility] EOSINOPHILS 0 0 - 7 % 08/05/2020 6:26 AM CDT [facility] BASOPHILS 0 0 - 2 % 08/05/2020 6:26 AM CDT [facility] NEUTROPHIL ABSOLUTE 6.70 1.90 - 7.00 K/uL 08/05/2020 6:26 AM CDT [facility] LYMPHOCYTE ABSOLUTE 1.40 0.70 - 4.50 K/uL 08/05/2020 6:26 AM CDT [facility] MONOCYTE ABSOLUTE 0.40 0.10 - 1.30 K/uL 08/05/2020 6:26 AM CDT [facility] EOSINOPHIL ABSOLUTE 0.00 0.00 - 0.70 K/uL 08/05/2020 6:26 AM CDT [facility] BASOPHILS ABSOLUTE 0.00 0.00 - 0.20 K/uL 08/05/2020 6:26 AM CDT [facility] Blood Venipuncture / Unknown 08/05/2020 5:26 AM CDT 08/05/2020 6:19 AM CDT Paul Manrique MD HEMATOLOGY ORDERABLE S [facility] CLIA# [id number] [place] [address] * (ABNORMAL) CBC WITH DIFFERENTIAL (08/04/2020 2:16 PM CDT) WBC 11.9(H) 4.5 - 10.5 K/uL 08/04/2020 2:46 PM CDT [facility] RBC 4.36(L) 4.50 - 5.40 M/uL 08/04/2020 2:46 PM CDT [facility] HEMOGLOBIN 12.8(L) 13.6 - 16.5 g/dL 08/04/2020 2:46 PM CDT [facility] HEMATOCRIT 39.5(L) 40.0 - 48.0 % 08/04/2020 2:46 PM CDT [facility] MCV 90.6 82.0 - 99.0 fL 08/04/2020 2:46 PM CDT [facility] MCH 29.4 27.8 - 34.5 pg 08/04/2020 2:46 PM CDT [facility] MCHC 32.4(L) 32.5 - 35.5 g/dL 08/04/2020 2:46 PM CDT [facility] RDW 16.8(H) 11.5 - 14.5 % 08/04/2020 2:46 PM CDT [facility] PLATELETS 205 160 - 420 K/uL 08/04/2020 2:46 PM CDT [facility] MPV 11.1 8.7 - 12.7 fL 08/04/2020 2:46 PM CDT [facility] NEUTROPHILS 87(H) 45 - 70 % 08/04/2020 2:46 PM CDT [facility] LYMPHOCYTES 12(L) 16 - 45 % 08/04/2020 2:46 PM CDT [facility] MONOCYTES 1(L) 3 - 13 % 08/04/2020 2:46 PM CDT [facility] EOSINOPHILS 0 0 - 7 % 08/04/2020 2:46 PM CDT [facility] BASOPHILS 1 0 - 2 % 08/04/2020 2:46 PM CDT [facility] NEUTROPHIL ABSOLUTE 10.30(H) 1.90 - 7.00 K/uL 08/04/2020 2:46 PM CDT [facility] LYMPHOCYTE ABSOLUTE 1.40 0.70 - 4.50 K/uL 08/04/2020 2:46 PM CDT [facility] MONOCYTE ABSOLUTE 0.10 0.10 - 1.30 K/uL 08/04/2020 2:46 PM CDT [facility] EOSINOPHIL ABSOLUTE 0.00 0.00 - 0.70 K/uL 08/04/2020 2:46 PM CDT [facility] BASOPHILS ABSOLUTE 0.10 0.00 - 0.20 K/uL 08/04/2020 2:46 PM CDT [facility] Blood Venipuncture / Unknown 08/04/2020 2:16 PM CDT 08/04/2020 2:34 PM CDT Kelvin Woods MD HEMATOLOGY ORDERABLE S [facility] CLIA# [id number] [place] [address] * POC GLUCOSE (08/04/2020 12:19 PM CDT) GLUCOSE POC 90 74 - 99 mg/dL 08/04/2020 12:19 PM CDT [facility] POINT OF CARE SEALING MACHINE OPERATOR NAME POC CATY WALTER 08/04/2020 12:19 PM CDT [facility] POINT OF CARE Blood, whole 08/04/2020 12:1 9 PM CDT 08/04/2020 12:20 PM CDT Kelvin Woods MD POINT OF CARE TESTIN G [facility] POINT OF CARE CLIA # [id number] [place] [address] * POC GLUCOSE (08/04/2020 9:36 AM CDT) GLUCOSE POC 74 74 - 99 mg/dL 08/04/2020 9:36 AM CDT [facility] POINT OF CARE SEALING MACHINE OPERATOR NAME POC JUANITA SOLARES 08/04/2020 9:36 AM CDT [facility] POINT OF CARE Blood, whole 08/04/2020 9:36 AM CDT 08/04/2020 9:44 AM CDT Kelvin Woods MD POINT OF CARE PAIN G Performing Organization Address [facility]/ZIP Co de Phone Number [facility] POINT OF CARE CLIA # [id number] [place] [address] * (ABNORMAL) BASIC METABOLIC PANEL (08/04/2020 9:05 AM CDT) SODIUM 138 136 - 145 mmol/L 08/04/2020 9:48 AM CDT [facility] POTASSIUM 4.7 3.4 - 5.1 mmol/L 08/04/2020 9:48 AM CDT [facility] Comment:Moderate hemolysis p resent. Can cause significant falsely elevated result. Redraw if indicated. CHLORIDE 98 98 - 107 mmol/L 08/04/2020 9:48 AM CDT [facility] CO2 26 22 - 29 mmol/L 08/04/2020 9:48 AM CDT [facility] CALCIUM 9.6 8.6 - 10.4 mg/dL 08/04/2020 9:48 AM CDT [facility] BUN 33(H) 6 - 20 mg/dL 08/04/2020 9:48 AM CDT [facility] CREATININE 1.85(H) 0.67 - 1.17 mg/dL 08/04/2020 9:48 AM CDT [facility] GLUCOSE 89 74 - 99 mg/dL 08/04/2020 9:48 AM T [facility] GFR 38(L) >=60 mL/min/1.7 3 sq meter 08/04/2020 9:48 AM T [facility] Comment: eGFR has not been validated for use in the elderly (> 70 years of age), women, patients with serious co-morbid conditions, or persons with extremes of body size or muscle mass and should also be interpreted with caution in patients with acute kidney failure, dialysis dependent patients, patients reporting exceptional dietary intake (e.g. vegetarian diet, high protein diets, creatine supplementation), and patients with severe liver disease. Based on National Kidney Disease Education Program If patient is , please refer to the GFR result. GFR, 46(L) >=60 mL/min/1.7 3 sq meter 08/04/2020 9:48 AM T [facility] ANION GAP 14 8 - 16 mmol/L 08/04/2020 9:48 AM [facility] Blood Venipuncture / Unknown 08/04/2020 9:05 AM CDT 08/04/2020 9:19 AM CDT Heidy Alfaro MD CHEMISTRY ORDERABLES [facility] [id number] [place] [address] * 2019 NOVEL CORONAVIRUS (COVID-19) PCR DETECTION (08/01/2020 12:32 PM ADVERTISING DISPATCH CLERKS SUPERVISOR) COVID-19 PCR NOT DETECTED Not Detected 08/03/19 3:07 PM ADVERTISING DISPATCH CLERKS SUPERVISOR [facility] PERFORMING LAB [facility] 08/02/2020 3:07 PM ADVERTISING DISPATCH CLERKS SUPERVISOR [facility] Upper Respiratory ENTIRE NASOPHARYNX / Unknown Collection / Unknown 08/01/2020 12:32 PM ADVERTISING DISPATCH CLERKS SUPERVISOR 08/01/2020 9:15 PM ADVERTISING DISPATCH CLERKS SUPERVISOR Narrative [facility] - 08/02/2020 3:07 PM ADVERTISING DISPATCH CLERKS SUPERVISOR This test has been authorized by the FDA under an Emergency Use Authorization for use by authorized laboratories.?? This test has been validated in accordance with the FDA's guidance regarding Coronavirus Disease-2019 testing.?? Optimum specimen types and timing for peak viral levels during infection have not been determined.?? A negative RT-PCR result does not rule out infection with the 2019-Novel Coronavirus. Kelvin Woods MD MICROBIOLOGY - [facility] AL ORDERABLES [facility] CLIA# [id number] [address] [place] [address] documented in this encounter Visit Diagnoses Diagnosis Preop examination- Primary Preoperative examination, unspecified documented in this encounter Administered Medications Inactive Administered Medications - up to 3 most recent administrations Medication Order MAR Action Action Date Dose Rate Site acetaminophen (OFIRMEV) 10 mg/ml injection 1,000 mg 1,000 mg, IV, ONE TIME ONLY, 1 dose, On Tue08/04/20 at 1415, Routine, Post-op - Floor New Bag 08/04/2020 2:23 PM CDT 1,000 mg 400 mL/hr acetaminophen (OFIRMEV) 10 mg/ml injection 1,000 mg 1,000 mg, IV, ONE TIME ONLY, 1 dose, On Tue08/04/20 at 2000, Routine, Post-op - Floor New Bag 08/04/2020 8:31 PM CDT 1,000 mg 400 mL/hr allopurinoL (ZYLOPRIM) tablet 200 mg 200 mg, Oral, TWO TIMES DAILY, First dose on Tue08/05/20 at 0900, Until Discontinued, Routine, Previous Med: allopurinoL (ZYLOPRIM) 100 mg tablet - Orig Sig - Take 200 mg by mouth 2 times daily. Given 08/05/2020 9:05 AM CDT 200 mg aprepitant (EMEND) capsule 40 mg 40 mg, Oral, ONE TIME ONLY, 1 dose, On Tue08/04/20 at 0900, Routine, Pre-op Given 08/04/2020 10:02 AM CDT 40 mg bupivacaine PF (SENSORCAINE MPF) 5 mg/mL (0.5%) 270 mL unilateral fixed rate On-Q pump Infiltration, CONTINUOUS, Starting on Tue08/04/20 at 0845, Until Tue08/05/20 at 1754, 270 mL, Routine, Pre-op, PUMP USE: Incisional Infiltration, FILL CAPACITY: 270-335 mL, LUMEN QTY: Dual Lumen, RATE: ALL OPTIONS EXCEED MAX RECOMMENDED RATE: EXCEED MAX RATE, SPECIFY RATE: 2 mL/hr/lumen (4 mL/hr total) Started by Another Clinician 08/04/2020 12:58 PM CDT 4 mL 2 mL/hr carvediloL (COREG) tablet 25 mg 25 mg, Oral, TWO TIMES DAILY, First dose on Tue08/05/20 at 0900, Until Discontinued, Routine, Previous Med: carvediloL (COREG) 25 mg tablet - Orig Sig - Take 25 mg by mouth 2 times daily. Given 08/05/2020 9:06 AM CDT 25 mg ceFAZolin (ANCEF,KEFZOL) 2000 mg in sodium chloride 0.9% 60 mL IVPB (PREMIX) 2,000 mg 2,000 mg, IV, POST-PROCEDURE Q 8 HOURS, 2 doses, First dose on Tue08/04/20 at 1800, Last dose on Tue08/05/20 at 0200, Routine, Post-op - Floor, Antibiotic Indication: Surgical prophylaxis New Bag 08/05/2020 3:52 AM CDT 2,000 mg 120 mL/hr New Bag 08/04/2020 5:27 PM CDT 2,000 mg 120 mL/hr dexamethasone (DECADRON) injection 8 mg 8 mg, IV, ONE TIME ONLY, 1 dose, On Tue08/04/20 at 0845, Routine, Intra-op Given 08/04/2020 10:03 AM CDT 8 mg diphenhydrAMINE (BENADRYL) 12.5 mg/5 mL elixir 25 mg 25 mg, Oral, EVERY 6 HOURS PRN, Starting on Tue08/04/20 at 1409, Until Tue08/05/20 at 1754, Itching, Routine, Post-op - Floor famotidine PF (PEPCID) 20 mg/2 mL injection 20 mg 20 mg, IV, PRE-PROCEDURE ONCE, 1 dose, Starting on Tue08/04/20 at 0854, Until Tue08/04/20 at 1002, Routine, Pre-op Given 08/04/2020 10:02 AM CDT 20 mg famotidine PF (PEPCID) 20 mg/2 mL injection 20 mg 20 mg, IV, TWO TIMES DAILY, First dose on Tue08/04/20 at 2100, Until Discontinued, Routine, Post-op - Floor Given 08/05/2020 9:06 AM CDT 20 mg Given 08/04/2020 8:23 PM CDT 20 mg furosemide (LASIX) tablet 40 mg 40 mg, Oral, TWO TIMES DAILY, 7 HOURS APART, First dose on Tue08/05/20 at 0800, Until Discontinued, Routine, Previous Med: furosemide (LASIX) 20 mg tablet - Orig Sig - Take 40 mg by mouth 2 times daily. Given 08/05/2020 9:06 AM CDT 40 mg gabapentin (NEURONTIN) capsule 300 mg 300 mg, Oral, THREE TIMES DAILY, First dose on Tue08/05/20 at 0900, Until Discontinued, Routine, Previous Med: gabapentin (NEURONTIN) 300 mg capsule - Orig Sig - Take 300 mg by mouth 3 times daily. Given 08/05/2020 9:05 AM CDT 300 mg heparin injection 5,000 Units 5,000 Units, subCUT, EVERY 8 HOURS, First dose on Tue08/04/20 at 2100, Until Discontinued, Routine, Post-op - Floor Given 08/04/2020 8:23 PM CDT 5,000 Units Abdominal Tissue HYDROcodone-acetaminophen (HYCET) 7.5-325 mg/15 mL oral solution 15 mL 15 mL (7.5 mg), Oral, EVERY 4 HOURS PRN, Starting on Tue08/04/20 at 1409, Until Tue08/05/20 at 1754, Pain (See admin instructions), Routine, Post-op - Floor HYDROcodone-acetaminophen (HYCET) 7.5-325 mg/15 mL oral solution 15 mL 15 mL (7.5 mg), Oral, EVERY 4 HOURS PRN, Starting on Tue08/04/20 at 1409, Until Tue08/05/20 at 1754, Pain (See admin instructions), Routine, Post-op - Floor Given 08/05/2020 3:57 AM CDT 15 mL HYDROmorphone (DILAUDID) 2 mg/mL injection 0.4 mg 0.4 mg, IV, POST-PROCEDURE Q 5 MINUTES PRN, 10 doses, Starting on Tue08/04/20 at 1046, Until Tue08/04/20 at 1407, Pain, Routine, PACU Given 08/04/2020 12:56 PM CDT 0.4 mg Given 08/04/2020 12:45 PM CDT 0.4 mg Given 08/04/2020 12:37 PM CDT 0.4 mg isosorbide mononitrate (IMDUR) SR 24 hour tablet 45 mg 45 mg, Oral, DAILY, First dose on Tue08/05/20 at 0900, Until Discontinued, Routine, Previous Med: isosorbide mononitrate (IMDUR) 30 mg Extended Release 24 hour tablet - Orig Sig - Take 45 mg by mouth daily. Given 08/05/2020 9:05 AM CDT 45 mg lactated ringers bolus solution 1,000 mL 1,000 mL, IV, ONE TIME ONLY, 1 dose, On Tue08/04/20 at 0900, at 2,000 mL/hr, Administer over 30 Minutes, Routine, Pre-op New Bag 08/04/2020 10:03 AM CDT 1,000 mL 2000 mL/hr lactated ringers infusion IV, at 125 mL/hr, CONTINUOUS, Starting on Tue08/04/20 at 1415, Until Tue08/04/20 at 1819, Routine, Post-op - Floor New Bag 08/04/2020 2:21 PM CDT 125 mL/hr lactated ringers infusion IV, at 50 mL/hr, CONTINUOUS, Starting on Tue08/04/20 at 1830, Until Tue08/05/20 at 0829, Routine, Post-op - Floor Rate Change 08/04/2020 6:30 PM CDT 50 mL/hr metoclopramide (REGLAN) 5 mg/mL injection 10 mg 10 mg, IV, EVERY 6 HOURS PRN, Starting on Tue08/04/20 at 1409, Until Tue08/05/20 at 1754, Nausea/Emesis, Routine, Post-op - Floor Given 08/05/2020 12:13 AM CDT 10 mg metroNIDAZOLE (FLAGYL) IVPB 500 mg 500 mg, IV, POST-PROCEDURE Q 8 HOURS, 2 doses, First dose on Tue08/04/20 at 1900, Last dose on Tue08/05/20 at 0300, Routine, Post-op - Floor, Antibiotic Indication: Surgical prophylaxis New Bag 08/05/2020 2:43 AM CDT 500 mg 100 mL/hr New Bag 08/04/2020 6:10 PM CDT 500 mg 100 mL/hr morphine 4 mg/mL injection 2 mg 2 mg, IV, EVERY 4 HOURS PRN, Starting on Tue08/04/20 at 1409, Until Tue08/05/20 at 1754, Pain (See admin instructions), Routine, Post-op - Floor Given 08/04/2020 5:30 PM CDT 2 mg morphine 4 mg/mL injection 2 mg 2 mg, IV, EVERY 4 HOURS PRN, Starting on Tue08/04/20 at 1409, Until Tue08/05/20 at 1754, Pain (See admin instructions), Routine, Post-op - Floor morphine 4 mg/mL injection 4 mg 4 mg, IV, EVERY 30 MINUTES PRN, Starting on Tue08/04/20 at 1409, Until Tue08/05/20 at 1754, Pain (See admin instructions), Routine, Post-op - Floor naloxone (NARCAN) 0.4 mg/mL injection 0.1 mg 0.1 mg, IV, SEE ADMIN INSTRUCTIONS, Starting on Tue08/04/20 at 1409, Until Tue08/05/20 at 1754, Routine, Post-op - Floor ondansetron (ZOFRAN) 4 mg/2 mL injection 4 mg 4 mg, IV, POST-PROCEDURE ONCE PRN, 1 dose, Starting on Tue08/04/20 at 1046, Until Tue08/04/20 at 1221, Nausea/Emesis, Routine, PACU Given 08/04/2020 12: 21 PM CDT 4 mg ondansetron (ZOFRAN) 4 mg/2 mL injection 4 mg 4 mg, IV, EVERY 6 HOURS PRN, Starting on Tue08/04/20 at 1409, Until Tue08/05/20 at 1754, Nausea/Emesis, Routine, Post-op - Floor Given 08/05/2020 3:57 AM CDT 4 mg Given 08/04/2020 5:30 PM CDT 4 mg prochlorperazine (COMPAZINE) injection 5 mg 5 mg, IV, POST-PROCEDURE ONCE PRN, 1 dose, Starting on Tue08/04/20 at 1046, Until Tue08/04/20 at 1236, Nausea/Emesis, Routine, PACU Given 08/04/2020 12:36 PM CDT 5 mg prochlorperazine maleate (COMPAZINE) tablet 10 mg 10 mg, Oral, EVERY 6 HOURS PRN, Starting on Tue08/04/20 at 1409, Until Tu08/05/20 at 1754, Nausea/Emesis, Routine, Post-op - Floor scopolamine (TRANSDERM-SCOP) 1 mg/72 hr transdermal patch 1 Patch 1 Patch, Transdermal, EVERY 72 HOURS, First dose on Tue08/04/20 at 0900, Until Discontinued, Routine, Pre-op Applied 08/04/2020 10:03 AM CDT 1 Patch E ar, Left documented in this encounter Active and Recently Administered Medications Due to Daylight Saving Time, this section may contain times in both ADVERTISING DISPATCH CLERKS SUPERVISOR and CDT. Scheduled Medication Order 08/03/2020 08/04/2020 08/05/2020 acetaminophen (OFIRMEV) 10 mg/ml injection 1,000 mg (COMPLETED) 1,000 mg, IV, ONE TIME ONLY, 1 dose, On Tue08/04/20 at 0845, Routine, Intra-op 1138 (Given - Provider: DANA Burton) acetaminophen (OFIRMEV) 10 mg/ml injection 1,000 mg (COMPLETED) 1,000 mg, IV, ONE TIME ONLY, 1 dose, On Tue08/04/20 at 1415, Routine, Post-op - Floor 1423 (New Bag - Provider: Kriss Ward RN)1438 (Stopped - Provider: Kriss Ward RN) acetaminophen (OFIRMEV) 10 mg/ml injection 1,000 mg (COMPLETED) 1,000 mg, IV, ONE TIME ONLY, 1 dose, On Tue08/04/20 at 2000, Routine, Post-op - Floor 2031 (New Bag - Provider: Silvana Aggarwal RN)204 (Stopped - Provider: Silvana Aggarwal RN) allopurinoL (ZYLOPRIM) tablet 200 mg 200 mg, Oral, TWO TIMES DAILY, First dose on Tue08/05/20 at 0900, Until Discontinued, Routine, Previous Med: allopurinoL (ZYLOPRIM) 100 mg tablet - Orig Sig - Take 200 mg by mouth 2 times daily. 904 (Given - Provid er: Cherry Newman RN) aprepitant (EMEND) capsule 40 mg (COMPLETED) 40 mg, Oral, ONE TIME ONLY, 1 dose, On Tue08/04/20 at 0900, Routine, Pre-op 1002 (Given - Provider: Nicole Retana RN) atorvastatin (LIPITOR) tablet 40 mg 40 mg, Oral, DAILY AT BEDTIME, First dose on Tue08/05/20 at 2100, Until Discontinued, Routine, Previous Med: atorvastatin (LIPITOR) 40 mg tablet - Orig Sig - Take 40 mg by mouth daily at bedtime. carvediloL (COREG) tablet 25 mg 25 mg, Oral, TWO TIMES DAILY, First dose on Tue08/05/20 at 0900, Until Discontinued, Routine, Previous Med: carvediloL (COREG) 25 mg tablet - Orig Sig - Take 25 mg by mouth 2 times daily. 905 (Given - Provid er: Cherry Newman RN) ceFAZolin (ANCEF,KEFZOL) 2000 mg in sodium chloride 0.9% 60 mL IVPB (PREMIX) 2,000 mg (COMPLETED)(Linked Group 1) 2,000 mg, IV, POST-PROCEDURE Q 8 HOURS, 2 doses, First dose on Tue08/04/20 at 1800, Last dose on Tue08/05/20 at 0200, Routine, Post-op - Floor, Antibiotic Indication: Surgical prophylaxis 1727 (New Bag - Provider: Kriss Ward RN)1757 (Stopped - Provider: Kriss Ward RN) 0352 (New Bag - Provider: Silvana Aggarwal RN)0422 (Due: Stopped - Provider: Silvana Aggarwal RN) ceFAZolin (ANCEF,KEFZOL) 3000 mg in sodium chloride 0.9% 115 mL IVPB (PREMIX) 3,000 mg (COMPLETED) 3,000 mg, IV, PRE-PROCEDURE ONCE, 1 dose, Starting on Tue08/04/20 at 0855, Until Tue08/04/20 at 1048, Routine, Antibiotic Indication: Surgical prophylaxis 1048 (Given - Provider: DANA Burton) dexamethasone (DECADRON) injection 8 mg (COMPLETED) 8 mg, IV, ONE TIME ONLY, 1 dose, On Tue08/04/20 at 0845, Routine, Intra-op 1003 (Given - Provider: Nicole Retana RN) famotidine PF (PEPCID) 20 mg/2 mL injection 20 mg (COMPLETED) 20 mg, IV, PRE-PROCEDURE ONCE, 1 dose, Starting on Tue08/04/20 at 0854, Until Tue08/04/20 at 1002, Routine, Pre-op 1002 (Given - Provider: Nicole Retana RN) famotidine PF (PEPCID) 20 mg/2 mL injection 20 mg 20 mg, IV, TWO TIMES DAILY, First dose on Tue08/04/20 at 2100, Until Discontinued, Routine, Post-op - Floor 2022 (Given - Provider: Silvana Aggarwal RN) 905 (Given - Provider: Cherry Newman RN) furosemide (LASIX) tablet 40 mg 40 mg, Oral, TWO TIMES DAILY, 7 HOURS APART, First dose on Tue08/05/20 at 0800, Until Discontinued, Routine, Previous Med: furosemide (LASIX) 20 mg tablet - Orig Sig - Take 40 mg by mouth 2 times daily. 905 (Given - Provid er: Cherry Newman RN)1500 (Due) gabapentin (NEURONTIN) capsule 300 mg 300 mg, Oral, THREE TIMES DAILY, First dose on Tue08/05/20 at 0900, Until Discontinued, Routine, Previous Med: gabapentin (NEURONTIN) 300 mg capsule - Orig Sig - Take 300 mg by mouth 3 times daily. 904 (Given - Provid er: Cherry Newman RN)1300 (Due) heparin injection 5,000 Units 5,000 Units, subCUT, EVERY 8 HOURS, First dose on Tue08/04/20 at 2100, Until Discontinued, Routine, Post-op - Floor 2022 (Given - Provider: Silvana Aggarwal RN) 0500 (Due)1300 (Due) isosorbide mononitrate (IMDUR) SR 24 hour tablet 45 mg 45 mg, Oral, DAILY, First dose on Tue08/05/20 at 0900, Until Discontinued, Routine, Previous Med: isosorbide mononitrate (IMDUR) 30 mg Extended Release 24 hour tablet - Orig Sig - Take 45 mg by mouth daily. 904 (Given - Provid er: Cherry Newman RN) lactated ringers bolus solution 1,000 mL (COMPLETED) 1,000 mL, IV, ONE TIME ONLY, 1 dose, On Tue08/04/20 at 0900, at 2,000 mL/hr, Administer over 30 Minutes, Routine, Pre-op 1003 (New Bag - Provider: Nicole Retana RN)1033 (Stopped - Provider: Kriss Ward RN) metroNIDAZOLE (FLAGYL) IVPB 500 mg (COMPLETED) 500 mg, IV, ONE TIME ONLY, 1 dose, On Tue08/04/20 at 0900, Routine, Pre-op, Antibiotic Indication: Surgical prophylaxis 1055 (Given - Provider: DANA Burton) metroNIDAZOLE (FLAGYL) IVPB 500 mg (COMPLETED)(Linked Group 1) 500 mg, IV, POST-PROCEDURE Q 8 HOURS, 2 doses, First dose on Tue08/04/20 at 1900, Last dose on Tue08/05/20 at 0300, Routine, Post-op - Floor, Antibiotic Indication: Surgical prophylaxis 1810 (New Bag - Provider: Kriss Ward RN)1910 (Stopped - Provider: Silvana Aggarwal RN) 0243 (New Bag - Provider: Silvana Aggarwal RN)0343 (Stopped - Provider: Silvana Aggarwal RN) naloxone (NARCAN) 0.4 mg/mL injection 0.1 mg 0.1 mg, IV, SEE ADMIN INSTRUCTIONS, Starting on Tue08/04/20 at 1409, Until Tue08/05/20 at 1754, Routine, Post-op - Floor scopolamine (TRANSDERM-SCOP) 1 mg/72 hr transdermal patch 1 Patch 1 Patch, Transdermal, EVERY 72 HOURS, First dose on Tue08/04/20 at 0900, Until Discontinued, Routine, Pre-op 1003 (Applied - Provider: Nicole Retana RN) 1554 (Due: Removed - Provider: PROVIDER, DISCHARGE PATIENT - Comment: Time automatically adjusted from order being discontinued) Continuous Medication Order 08/03/2020 08/04/2020 08/05/2020 bupivacaine PF (SENSORCAINE MPF) 5 mg/mL (0.5%) 270 mL unilateral fixed rate On-Q pump Infiltration, CONTINUOUS, Starting on Tue08/04/20 at 0845, Until Tue08/05/20 at 1754, 270 mL, Routine, Pre-op, PUMP USE: Incisional Infiltration, FILL CAPACITY: 270-335 mL, LUMEN QTY: Dual Lumen, RATE: ALL OPTIONS EXCEED MAX RECOMMENDED RATE: EXCEED MAX RATE, SPECIFY RATE: 2 mL/hr/lumen (4 mL/hr total) 1258 (Started by Another Clinician - Provider: Teresa Woods RN - Comment: started prior to arrival in PACU) lactated ringers infusion (CANCELED) IV, at 150 mL/hr, CONTINUOUS, Starting on Tue08/04/20 at 0900, Until Tue08/04/20 at 1414, Routine, Pre-op 0923 (New Bag - Provider: DANA Burton)1030 (Fluid Volume - Provider: DANA Burton)1140 (Fluid Volume - Provider: DANA Burton)1141 (New Bag - Provider: DANA Burton)1456 (Stopped - Provider: Kriss Ward RN) lactated ringers infusion (CANCELED) IV, at 125 mL/hr, CONTINUOUS, Starting on Tue08/04/20 at 1415, Until Tue08/04/20 at 1819, Routine, Post-op - Floor 1421 (New Bag - Provider: Kriss Ward RN)1826 (Stopped - Provider: Kriss Ward RN) lactated ringers infusion IV, at 50 mL/hr, CONTINUOUS, Starting on Tue08/04/20 at 1830, Until Tue08/05/20 at 0829, Routine, Post-op - Floor 1830 (Rate Change - Provider : Kriss Ward RN) PRN Medication Order 08/03/2020 08/04/2020 08/05/2020 acetaminophen (TYLENOL) tablet 650 mg 650 mg, Oral, EVERY 6 HOURS PRN, Starting on Tue08/05/20 at 0800, Until Tue08/05/20 at 1754, Pain, Routine, Previous Med: acetaminophen (TYLENOL) 325 mg tablet - Orig Sig - Take 650 mg by mouth every 6 hours as needed for Pain. Neck and arm pain albuterol sulfate 90 mcg/Actuation inhaler 2 Puff 2 Puff, Inhalation, EVERY 6 HOURS PRN RESPIRATORY, Starting on Tue08/04/20 at 1821, Until Tue08/05/20 at 1754, Shortness of Breath, Wheezing, Routine, Previous Med: albuterol HFA 90 mcg inhaler - Orig Sig - Take 2 Puffs by inhalation every 4 hours as needed for Shortness of Breath. bupivacaine PF (SENSORCAINE MPF) 5 mg/mL (0.5%) injection (CANCELED) INTRA-PROCEDURE PRN, Starting on Tue08/04/20 at 1152, Until Tue08/04/20 at 1213, Routine, Intra-op 1152 (Given - Provider: Kelvin Woods MD) diphenhydrAMINE (BENADRYL) 12.5 mg/5 mL elixir 25 mg 25 mg, Oral, EVERY 6 HOURS PRN, Starting on Tue08/04/20 at 1409, Until Tue08/05/20 at 1754, Itching, Routine, Post-op - Floor HYDROcodone-acetaminophen (HYCET) 7.5-325 mg/15 mL oral solution 15 mL 15 mL (7.5 mg), Oral, EVERY 4 HOURS PRN, Starting on Tue08/04/20 at 1409, Until Tue08/05/20 at 1754, Pain (See admin instructions), Routine, Post-op - Floor 0354 (Not Given - Provider: Silvana Aggarwal RN - Reason: Clarify-Other (Comment)) HYDROcodone-acetaminophen (HYCET) 7.5-325 mg/15 mL oral solution 15 mL 15 mL (7.5 mg), Oral, EVERY 4 HOURS PRN, Starting on Tue08/04/20 at 1409, Until Tue08/05/20 at 1754, Pain (See admin instructions), Routine, Post-op - Floor 0357 (Given - Provid er: Silvana Aggarwal RN) HYDROmorphone (DILAUDID) 2 mg/mL injection 0.4 mg (CANCELED) 0.4 mg, IV, POST-PROCEDURE Q 5 MINUTES PRN, 10 doses, Starting on Tue08/04/20 at 1046, Until Tue08/04/20 at 1407, Pain, Routine, PACU 1237 (Given - Provider: Teresa Woods RN - Comment: medication pulled per T Juli RN)1245 (Given - Provider: Teresa Woods RN)1256 (Given - Provider: Teresa Woods RN) metoclopramide (REGLAN) 5 mg/mL injection 10 mg 10 mg, IV, EVERY 6 HOURS PRN, Starting on Tue08/04/20 at 1409, Until Tue08/05/20 at 1754, Nausea/Emesis, Routine, Post-op - Floor 0013 (Given - Provid er: Silvana Aggarwal RN) morphine 4 mg/mL injection 2 mg 2 mg, IV, EVERY 4 HOURS PRN, Starting on Tue08/04/20 at 1409, Until Tue08/05/20 at 1754, Pain (See admin instructions), Routine, Post-op - Floor 1730 (Given - Provider: Kriss Ward RN) morphine 4 mg/mL injection 2 mg 2 mg, IV, EVERY 4 HOURS PRN, Starting on Tue08/04/20 at 1409, Until Tue08/05/20 at 1754, Pain (See admin instructions), Routine, Post-op - Floor morphine 4 mg/mL injection 4 mg 4 mg, IV, EVERY 30 MINUTES PRN, Starting on Tue08/04/20 at 1409, Until Tue08/05/20 at 1754, Pain (See admin instructions), Routine, Post-op - Floor ondansetron (ZOFRAN) 4 mg/2 mL injection 4 mg (COMPLETED) 4 mg, IV, POST-PROCEDURE ONCE PRN, 1 dose, Starting on Tue08/04/20 at 1046, Until Tue08/04/20 at 1221, Nausea/Emesis, Routine, PACU 1221 (Given - Provider: Teresa Woods RN) ondansetron (ZOFRAN) 4 mg/2 mL injection 4 mg 4 mg, IV, EVERY 6 HOURS PRN, Starting on Tue08/04/20 at 1409, Until Tue08/05/20 at 1754, Nausea/Emesis, Routine, Post-op - Floor 1730 (Given - Provider: Kriss Ward, RN) 0357 (Given - Provider: Silvana Aggarwal, AVA) prochlorperazine (COMPAZINE) injection 5 mg (COMPLETED) 5 mg, IV, POST-PROCEDURE ONCE PRN, 1 dose, Starting on Tue08/04/20 at 1046, Until Tue08/04/20 at 1236, Nausea/Emesis, Routine, PACU 1236 (Given - Provider: Teresa Woods, AVA) prochlorperazine maleate (COMPAZINE) tablet 10 mg 10 mg, Oral, EVERY 6 HOURS PRN, Starting on Tue08/04/20 at 1409, Until Tue08/05/20 at 1754, Nausea/Emesis, Routine, Post-op - Floor Linked Groups Order Group 1: ceFAZolin (ANCEF,KEFZOL) 2000 mg in sodium chloride 0.9% 60 mL IVPB (PREMIX) 2,000 mg (COMPLETED)Jump to med 2,000 mg, IV, POST-PROCEDURE Q 8 HOURS, 2 doses, First dose on Tue08/04/20 at 1800, Last dose on Tue08/05/20 at 0200, Routine, Post-op - Floor, Antibiotic Indication: Surgical prophylaxis And metroNIDAZOLE (FLAGYL) IVPB 500 mg (COMPLETED)Jump to med 500 mg, IV, POST-PROCEDURE Q 8 HOURS, 2 doses, First dose on Tue08/04/20 at 1900, Last dose on Tue08/05/20 at 0300, Routine, Post-op - Floor, Antibiotic Indication: Surgical prophylaxis documented in this encounter
--- OUTSIDE RECORDS SUMMARY | 2024-05-22 05:51 | XMS_ITS | Encounter Summary ---
Author Organization [facility] Address [address] [place]: Epic Prelude ADT [place] [address] Care Team Providers Care Pick Up Truck Driver Name Role Phone Unavailable Primary Care Provider Unavailabl e Encounter Details Date Type Department Care Team (Latest Contact Info) Description 07/18/2020 Travel Social History Tobacco Use Types Packs/Day [...] have Coronavirus / COVID-19? No / Unsure 07/18/2020 9:17 AM CHIEF LIBRARIAN CIRCULATION DEPARTMENT documented as of this encounter Plan of Treatment Not on file documented as of this encounter Visit Diagnoses Not on filedocumented in this encounter
--- OUTSIDE RECORDS SUMMARY | 2024-05-22 05:51 | XMS_ITS | Encounter Summary ---
Author Organization [facility] Address [address] [place] [address] Phone Care Team Providers Care Pigment Mixer Name Role Phone aNtasha Bates Primary Care Provider [phone] Reason for Visit * Reason Comments Urinary Incontinence hx of AUS * Consultation (Routine) - Closed Specialty Diagnoses / Procedures Referred By Contjhonny t Referred To Contact Urology Diagnoses Follow up Natasha Bates PA [address] [place] [address] Phone: tel: fax: [facility] (All Locations) Referral ID Status Reason Start Date Expiration Date V isits Requested Visits Authorized [id number] Closed Specialty Services Required 03/02/2021 04/01/[phone] Encounter Details Date Type Department Care Team (Late st Contact Info) Description 07/07/2021 11:00 AM HYDRAULIC ROCKBREAKER OPERATOR Office Visit [facility] Urology [address] [place] [address] Suzette Rogers MD [address] [place] [address] LIZET (stress urinary incontinence), male (Primary Dx) Social History Tobacco Use Types [...] often do you attend chur ch or orthodoxy services? More than 4 times per year 06/05/2021 Do you belong to any clubs o r organizations such as rastafari groups, unions, fraternal or athletic groups, or [...] on file Legal Sex 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 HYDRAULIC ROCKBREAKER OPERATOR Gender Identity Not on file Sexual Orientation Not on file documented as of this encounter Progress Notes * Suzette Rogers MD - 07/07/2021 11:00 AM CST HPI: Howie Delaney is a 55 y.o. male with AUS placed in May 2021 with a 4.5 cm cuff in the bulbar urethra. 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 Patient is here for AUS activation today. He is able to urinate well. His postvoid residual volume is 0 cc. His most recent basic mother better panel reveals a creatinine is back to his baseline at 1.3, it was 3 weeks ago. LURN SI-10 questionnaire revealed: 3 for urgency, 4 for urgency incontinence, 4 for stress incontinence with coughing/sneezing, 4 for stress incontinence with exercises/lifting, empty for pain/discomfort with bladder filling, empty for delay to start urine stream, empty for slow or weak urine stream, empty for dribble, Note: [4=every time, 3=most of the time, 2=about half of time, 1=a few times, 0=never] empty for frequency, empty for nocturia. The LUTS is empty. The LURN-SI is scanned into medical record. [...] Normal affect and mood, oriented x 3. Activated his artificial urinary sphincter activated and cycle normally. The perineal incision is healing without infection. The suprapubic incision has healed without infection. He showed me that he can not use his AUS, the pump is located in the right anterior hemiscrotum without induration or tenderness or infection. Post-void residual: Measurement of postvoid residual urine and/or bladder capacity by ultrasound, non imaging. PVR = 0 cc. Assessment and Plan: Male stress urine incontinence Prior history of AUS erosion New AUS placed in May of 2021, 4.5 cm cuff, filled with 22 cc of normal saline in the system 1. His AUS is activated today successfully. 2. He will see me back in 1 month 3. Call the office for any issues in the interim. Linda Rogers MD bill hiker (Urology) Division of Urologic Surgery [facility] Office [phone] 07/07/2021 11:10 AM AULIC ROCKBREAKER OPERATOR documented in this encounter Plan of Treatment Not on file documented as of this encounter Procedures Procedure Name Priority Date/Time Associated Diagnosis Comments POCT URINALYSIS DIPSTICK Routine 07/07/2021 11:14 AM HYDRAULIC ROCKBREAKER OPERATOR LIZET (stress urinary incontinence), male documented in this encounter Results * (ABNORMAL) POCT urinalysis dipstick (07/07/2021 11:14 AM HYDRAULIC ROCKBREAKER OPERATOR) Glucose, ur, POC Negative Negative mg/dL Ketones, ur, POC Negative Negative Blood, ur, POC Negative Negative pH, ur, POC 5.0 5.0 - 8.0 Protein, ur, POC 2+(A) Negative Nitrite, ur, POC Negative Negative Leukocytes, ur, POC Negative Negative Lot Number x Urine 07/07/2021 11:1 4 AM HYDRAULIC ROCKBREAKER OPERATOR us Suzette Rogers MD POINT OF CARE TEST ORDERABLES Final Result documented in this encounter Visit Diagnoses Diagnosis LIZET (stress urinary incontinence), male- Primary documented in this encounter Additional Health Concerns Infection Onset Date Last Indicated Resolved Time COVID: Recovered Comment:Added based on recent COVID infection. 06/14/2021 06/15/2021 10/12/2021 3:05 AM C DT documented as of this encounter Care Teams Pigment Mixer Relationship Specialty Start Date End Date Natasha Bates PA [address] [place] [address] PCP - General Physician Manager Work 10/08/19 documented as of this encounter
--- OUTSIDE RECORDS SUMMARY | 2024-05-22 05:51 | XMS_ITS | Encounter Summary ---
Author Organization [facility] Address [address] [place] [address] Care Team Providers Care Apartment Leasing Manager Name Role Phone Natasha Bates Primary Care Provider [phone] Kimberly Bell ENVIRONMENTAL SCIENCE TECHNICIAN Unavailable [phone] Reason for Visit * Reason Comments Unsuccessful Phone Call 1 Encounter Details Date Type Department Care Team (Late st Contact Info) Description 07/03/2021 SHOP/CHAP Subsequent Outreach [facility] OP CASE MANAGEMENT [address] [place] [address] Kimberly Bell, ENVIRONMENTAL SCIENCE TECHNICIAN [address] [facility] ([facility]) Mailstop [phone] [place] [address] Social History Tobacco Use Types [...] How often do you attend chur or shinto services? More than 4 times per year 06/05/2021 Do you belong to any clubs o r organizations such as samaritan groups, unions, fraternal or athletic groups, or [...] on file Legal Sex 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 TOOL INSPECTOR Gender Identity Not on file Sexual Orientation Not on file documented as of this encounter Progress Notes * Kimberly Bell LCSW - 07/03/2021 11:48 AM CST OCM called pt to complete 30 day outreach call. OCM left VM letting pt know that this would be lastoutreach. OCM encouraged pt to call in the next couple days if he has any needs or concerns. OCM will continue to follow. INSPECTOR documented in this encounter Plan of Treatment Not on file documented as of this encounter Visit Diagnoses Not on filedocumented in this encounter Additional Health Concerns Infection Onset Date Last Indicated Resolved Time COVID: Recovered Comment:Added based on recent COVID infection. 06/14/2021 06/15/2021 10/12/2021 3:05 AM C DT documented as of this encounter Care Teams Apartment Leasing Manager Relationship Specialty Start Date End Date Natasha Bates PA [address] [place] [address] PCP - General Physician Traffic Survey Technician 10/08/19 Kimberly Bell LCSW [address] [facility] ([facility]) Mailstop [phone] [place] [address] SHOP Outpatient Biological Plant Operator 06/05/21 07/05/21 documented as of this encounter
--- OUTSIDE RECORDS SUMMARY | 2024-05-22 05:51 | XMS_ITS | Encounter Summary ---
Author Organization [facility] Address [address] [place] [address] Care Team Providers Care Slicing Machine Operator Name Role Phone Unavailable Primary Care Provider Unavailabl e Reason for Visit * Auth/Cert Specialty Diagnoses / Procedures Referred By Malena t Referred To Contact Multi Specialty Diagnoses MORBID OBESITY Procedures [place] LAP, FELICIANO RESTRICT PROC, LONGITUDINAL GASTRECTOMY SLEEVE GASTRECTOMY [facility] Operating Room [id number] [place] [id number] Referral ID Status Reason Start Date Expiration Date Visits Re quested Visits Authorized [id number] 1 1 Encounter Details Date Type Department Care Team (Late st Contact Info) Description 08/04/2020 10:31 AM CDT Anesthesia Event [facility] Operating Room [address] [place] [address] [place] [address] [place] [address] Isabel Mccrary NP [address] [place] [phone] Anesthesia Record Procedure Summary Procedure Name Responsible Anesthesiologist Anesthesia Start Time Anesthesia Stop Time SLEEVE GASTRECTOMY (Abdomen) Astrid Tapia MD 08/04/20 1031 08/04/20 1219 Events Date Time Event Comment 08/04/2020 1031 An Start 1034 An Start Data 1035 In Room This event disp lays the In Room time documented in the Surgical Log. Deleting this event will not remove it from the log but will remove it from the Grid and Graph timeline. 1039 Pre-Induction Immediate pre- induction anesthetic assessment performed. Vital signs as noted on graphic. 1040 An Induction 1041 An Intubation 1043 Anesthesia Ready 1046 1058 Procedure Start This event d isplays the Procedure Start time documented in the Surgical Log. Deleting this event will not remove it from the log but will remove it from the Grid and Graph timeline. 1206 Procedure Stop This event di splays the Procedure Stop time documented in the Surgical Log. Deleting this event will not remove it from the log but will remove it from the Grid and Graph timeline. 1208 An Extubation Emergence unev entful Awake, spontaneous respirations. Adequate muscle strength demonstrated Adequate tidal volume. Orapharynx suctioned. Extubated with positive pressure ventilation. 1208 an stop data 1213 Out of Room This event disp lays the Out of Room time documented in the Surgical Log. Deleting this event will not remove it from the log but will remove it from the Grid and Graph timeline. 1219 An Stop Meds Name Total fentaNYL (SUBLIMAZE) PF 50??mcg/mL injec tion 100 mcg lidocaine PF (XYLOCAINE MPF) 2% injectio n 5 mL propofol (DIPRIVAN) injection 200 mg succinycholine (ANECTINE) 140 mg/7 mL iv syringe 120 mg rocuronium (ZEMURON) 10??mg/mL injection 30 mg phenylephrine (JUAN-SYNEPHRINE) 50 mg in sodium chloride 0.9% 250 mL infusion 3.48 mg ceFAZolin (ANCEF,KEFZOL) 300 0 mg in sodium chloride 0.9% 115 mL IVPB (PREMIX) 3,000 mg 3,000 mg metroNIDAZOLE (FLAGYL) IVPB 500 mg 500 m g acetaminophen (OFIRMEV) 10 mg/ml injecti on 1,000 mg 1,000 mg ondansetron (ZOFRAN) 4 mg/2 mL injection 8 mg glycopyrrolate (ROBINUL) 0.2 mg/ mL inje ction 0.6 mg neostigmine (PROSTIGMINE) 1 mg/mL inject ion 3 mg lactated ringers infusion 1,000 mL * Agents Name Air Desflurane % Desflurane O2 * Blood No blood administrations on file. Lines, Drains, and Airways Type Details Placement Removal Peripheral IV Orientation: Left; Location: Hand; Device: Angiocath; Gauge: 20 gauge; Needle Length: 1 in length; Insertion Attempts: 1; Patient Tolerance: tolerated well; Removal Indication: no longer indicated; Removal Interventions: pressure dressing, direct pressure 08/04/20 0954 by Nicole Retana RN 08/05/20 1451 by Hiral Wallace RN Endotracheal Airway Type: ETT; Size: 7.5 ; Attempts: 1; Verification: Auscultated bilateral breath sounds, Equal chest movement, Continuous waveform capnography 08/04/20 1041 by Dejah Alvarado AA 08/04/20 1208 by Dejah Alvarado AA Wound 08/04/20; 1058; No; 1; mid; umbilical area; 08/04/20; 1431 08/04/20 1058 by Puneet Souza RN 08/04/20 1431 by Kriss Ward RN Wound 08/04/20; 1102; No; 2; Left; upper quadrant; 08/04/20; 1433 08/04/20 1102 by Puneet Souza RN 08/04/20 1433 by Kriss Ward RN Wound 08/04/20; 1102; No; Right, lower; flank; 08/04/20; 1432 08/04/20 1102 by uPneet Souza RN 08/04/20 1432 by Kriss Ward RN Incision 08/04/20; 1115; surgical incision; other (comment); abdomen; 08/06/20; 0354 08/04/20 1115 by Puneet Souza RN 08/06/20 0354 by PROVIDER, DISCHARGE PATIENT documented in this [...] AM CDT documented as of this encounter OR Notes * Anesthesia Postprocedure Evaluation - Pavel Godoy MD - 08/04/2020 1:46 PM CDT Post Anesthesia Evaluation Vitals: Vitals Value Taken Time BP 125/68 08/04/20 1340 Temp 36.7 ??C 08/04/20 1219 Resp 11 08/04/20 1345 SpO2 91 % 08/04/20 1345 Pulse 73 08/04/20 1345 Heart Rate 72 bpm 08/04/20 1345 Pain Rating: Pain Rating: Rest: 8.5 (08/04/20 1256) Anesthesia Post Evaluation Patient location during evaluation: PACU Level of consciousness: 1 = not alert but arousable by minor stimulation to obey, answer or respond Pain management: adequate Airway patency: patent Nausea or Vomiting: controlled Anesthetic complications: no Comments: On CPAP Pavel Godoy MD * Anesthesia Handoff - Dejah Alvarado AA - 08/04/2020 12:19 PM CDT Post-Anesthetic transfer of care report elements [...] questions and acknowledgement of understanding. Vital Signs: BP: 120/74 (08/04/2020 12:19 PM) Pulse: 69 (08/04/2020 12:19 PM) Temp: 36.7 ??C (08/04/2020 12:19 PM) Resp: 17 (08/04/2020 12:19 PM) SpO2: 94 % (08/04/2020 12:19 PM) 12:19 PM DANA Shin * Anesthesia Procedure Notes - Dejah Alvarado AA - 08/04/2020 10:49 AM CDTAssociated Order(s): Airway Airway Date/Time: 08/04/2020 10:41 AM Location: OR Plan: routine intubation Patient Identity Confirmed by: Verbally with patient and armband Indications and Patient Condition: Indications for Airway Management: Anesthesia Preoxygenated: Yes Mask Difficulty Assessment: 1 - vent by mask Plan to extubate at end of case: Yes Final Airway Details: Final Airway Type: Endotracheal airway Final Endotracheal Airway: ETT Cuffed: Yes Technique Used for Successful ETT Placement: Direct laryngoscopy Devices/Methods Used in Placement: Curved blade Insertion Site: Oral Laryngoscope Blade/Videolaryngoscope Blade Size: 4 ETT Size (mm): 7.5 Measured from: Teeth Tube secured with: Tape Placement Verified by: auscultation, end tidal CO2 and chest rise Cormack-Lehane Classification: Grade IIb - view of arytenoids or posterior of glottis only Number of Attempts at Approach: 1 * Anesthesia Preprocedure Evaluation - Astrid Tapia MD - 07/21/2020 9:49 AM CST Location of Pre-Procedure Assessment: PSA-Authorization for Anesthetic. Anesthesia History: History of: PONV. Positive for: Anesthetic complications and aggressive post op, slow to wake. Endocrine History: neg endo/other ROS. Renal History: History of: Renal disease. Disease type: CRF. Pulmonary History: History of ; shortness of breath History of: Sleep Apnea. Sleep apnea interventions: obstructive and CPAP. Cardiovascular History: Sob w/ FOS. Denies cpExercise tolerance: poor.History of: Hypertension. History of: CAD. Negative history of: Angina. Negative history of: past SC.History of: CHF. History of: PVD. GI/Hepatic History: nataliya liverHistory of: GERD. History of: Alcohol use. Negative history of recreational No addiction problem. Neuro/Psych History: History of: Neuropathy. Musculoskeletal History: gout Hematologic/Oncologic History: History of: Depression. History of: Anxiety. Obstetric History: Nutrition Status: severe morbid obesity Other Findings: Cardiac clearance on paper chart Artificial urinary sphincter. States cannot have catheter. [facility] PHYSICAL EXAM: PHYSICAL EXAM: Habitus: Morbid obesity Mental Status: Oriented, Awake and Alert TMJ Mallampati:: III TM distance:: <3 FB Neck ROM:: Full Rhythm:: Regular Rate:: Normal periodontal disease Breath sounds clear to auscultation Anesthesia Plan ASA Final: 3 General Anesthetic plan and risks discussed with Patient. [facility] FINAL DOS EXAM: ASA score (Day of Surgery): 3 Mallampati:: II Rhythm:regular Pulmonary Neg Plan: General documented in this encounter Plan of Treatment Not on file documented as of this encounter Procedures Procedure Name Priority Date/Time Associated Diagnosis Comments KY ANES INSERT ENDOTRACHEAL AIRWAY Routine 08/04/2020 10:49 AM CDT documented in this encounter Results * KY ANES INSERT ENDOTRACHEAL AIRWAY (08/04/2020 10:49 AM CDT) Narrative Dejah Alvarado AA - 08/04/2020 10:49 AM CDT Dejah Alvarado AA ? 08/04/2020 10:50 AM Airway Date/Time: 08/04/2020 10:41 AM Location: OR Plan: routine intubation Patient Identity Confirmed by: ??Verbally with patient and armband Indications and Patient Condition: ??Indications for Airway Management: ??Anesthesia ??Preoxygenated: Yes ?Mask Difficulty Assessment: ??1 - vent by mask ??Plan to extubate at end of case: Yes ?? Final Airway Details: ??Final Airway Type: ??Endotracheal airway ??Final Endotracheal Airway: ??ETT ??Cuffed: Yes ?Technique Used for Successful ETT Placement: ??Direct laryngoscopy ??Devices/Methods Used in Placement: ??Curved blade ??Insertion Site: ??Oral ??Laryngoscope Blade/Videolaryngoscope Blade Size: ??4 ??ETT Size (mm): ??7.5 ??Measured from: ??Teeth ??Tube secured with: ??Tape ??Placement Verified by: auscultation, end tidal CO2 and chest rise ?Cormack-Lehane Classification: ??Grade IIb - view of arytenoids or posterior of glottis only ??Number of Attempts at Approach: ??1 Astrid Tapia MD PROCEDURE/MINOR SURG ICAL ORDERABLES documented in this encounter Visit Diagnoses Not on filedocumented in this encounter Administered Medications Inactive Administered Medications - up to 3 most recent administrations Medication Order MAR Action Action Date Dose Rate Site acetaminophen (OFIRMEV) 10 mg/ml injection 1,000 mg 1,000 mg, IV, ONE TIME ONLY, 1 dose, On Tue08/04/20 at 0845, Routine, Intra-op Given 08/04/2020 11:38 AM CDT 1,000 mg ceFAZolin (ANCEF,KEFZOL) 3000 mg in sodium chloride 0.9% 115 mL IVPB (PREMIX) 3,000 mg 3,000 mg, IV, PRE-PROCEDURE ONCE, 1 dose, Starting on Tue08/04/20 at 0855, Until Tue08/04/20 at 1048, Routine, Antibiotic Indication: Surgical prophylaxis Given 08/04/2020 10:48 AM CDT 3,000 mg fentaNYL PF (SUBLIMAZE) 50 mcg/mL injection INTRA-PROCEDURE PRN, Starting on Tue08/04/20 at 1047, Until Tue08/04/20 at 1219, Routine, Anesthesia Intra-op Given 08/04/2020 12:05 PM CDT 50 mcg Given 08/04/2020 10:47 AM CDT 50 mcg glycopyrrolate (ROBINUL) injection INTRA-PROCEDURE PRN, Starting on Tue08/04/20 at 1151, Until Tue08/04/20 at 1219, Routine, Anesthesia Intra-op Given 08/04/2020 11:51 AM CDT 0.6 mg lactated ringers infusion IV, at 150 mL/hr, CONTINUOUS, Starting on Tue08/04/20 at 0900, Until Tue08/04/20 at 1414, Routine, Pre-op New Bag 08/04/2020 11:41 AM CDT New Bag 08/04/2020 9:23 AM CDT lidocaine PF 2% (XYLOCAINE MPF) injection INTRA-PROCEDURE PRN, Starting on Tue08/04/20 at 1040, Until Tue08/04/20 at 1219, Routine, Anesthesia Intra-op Given 08/04/2020 10:40 AM CDT 5 mL metroNIDAZOLE (FLAGYL) IVPB 500 mg 500 mg, IV, ONE TIME ONLY, 1 dose, On Tue08/04/20 at 0900, Routine, Pre-op, Antibiotic Indication: Surgical prophylaxis Given 08/04/2020 10:55 AM CDT 500 mg neostigmine (PROSTIGMINE) 3 mg/3 mL (1 mg/mL) syringe INTRA-PROCEDURE PRN, Starting on Tue08/04/20 at 1151, Until Tue08/04/20 at 1219, Routine, Anesthesia Intra-op Given 08/04/2020 11:51 AM CDT 3 mg ondansetron (ZOFRAN) 4 mg/2 mL injection INTRA-PROCEDURE PRN, Starting on Tue08/04/20 at 1140, Until Tue08/04/20 at 1219, Routine, Anesthesia Intra-op Given 08/04/2020 11:40 AM CDT 8 mg phenylephrine (JUAN-SYNEPHRINE) 50 mg in sodium chloride 0.9% 250 mL infusion INTRA-PROCEDURE CONTINUOUS PRN, Starting on Tue08/04/20 at 1046, Until Tue08/04/20 at 1219, Anesthesia Intra-op New Bag 08/04/2020 10:46 AM CDT 0.4 mcg/kg/min 19.4 mL/hr propofoL (DIPRIVAN) injection INTRA-PROCEDURE PRN, Starting on Tue08/04/20 at 1040, Until Tue08/04/20 at 1219, Anesthesia Intra-op Given 08/04/2020 10:40 AM CDT 200 mg rocuronium injection INTRA-PROCEDURE PRN, Starting on Tue08/04/20 at 1051, Until Tue08/04/20 at 1219, Routine, Anesthesia Intra-op Given 08/04/2020 10:51 AM CDT 30 mg succinylcholine Chloride (ANECTINE) 140 mg/7 mL (20 mg/mL) injection INTRA-PROCEDURE PRN, Starting on Tue08/04/20 at 1040, Until Tue08/04/20 at 1219, Routine, Anesthesia Intra-op Given 08/04/2020 10:40 AM CDT 120 mg documented in this encounter
--- OUTSIDE RECORDS SUMMARY | 2024-05-22 05:51 | XMS_ITS | Encounter Summary ---
Author Organization [facility] Address [address] [place] [address] Phone Care Team Providers Care Logistics Team Leader Name Role Phone Natasha Bates Primary Care Provider [phone] Encounter Details Date Type Department Care Team (Late st Contact Info) Description 04/27/2024 Telephone [facility] Surgery [address] [place] [address] Amanda Mak, [facility] Social History Tobacco Use Types Packs/Day Years [...] often do you attend chur ch or oriental orthodox services? More than 4 times per year 06/05/2021 Do you belong to any clubs o r organizations such as zoroastrianism groups, unions, fraternal or athletic groups, or [...] place to sleep or slept in a jail (including now)? No 06/05/2021 Sex and Gender Information Value Date Recorded Sex Assigned at Not on file Legal Sex 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 SPICE FUMIGATOR Gender Identity Not on file Sexual Orientation Not on file documented as of this encounter Miscellaneous Notes * Telephone Encounter - Josue Will - 04/30/2024 3:51 PM CST Date: 04/30/2024 Reason for Call: The patient is calling back because he is scheduled this evening at 6 pm for an MRI of his neck and needs a letter stating that his AUS he has placed is MRI safe faxed to [phone] [facility] Patient Provider: Dr. Rogers Medical/Surgical Information: Outcome/Plan: E FUMIGATOR * Telephone Encounter - Amanda Mak CMA - 04/27/2024 10:47 AM SPICE FUMIGATOR Date: 04/27/2024 Reason for Call: patient is scheduled for a MRI on 04/30 and needs a letter stating that his AUS he has placed is MRI safe faxed to [phone] [facility] Patient Provider: Medical/Surgical Information: Outcome/Plan: E FUMIGATOR documented in this encounter Plan of Treatment Not on file documented as of this encounter Visit Diagnoses Not on filedocumented in this encounter Care Teams Logistics Team Leader Relationship Specialty [place] [address] [place] [id number] PCP - General Physician Hairspring Staker 10/08/19 documented as of this encounter
--- OUTSIDE RECORDS SUMMARY | 2024-05-22 05:51 | XMS_ITS | Encounter Summary ---
Author Organization [facility] Address [address] [place] [address] Care Team Providers Care Technology Development Intern Name Role Phone Puneet Hughes MD Primary Care Provider [phone] Encounter Details Date Type Department Care Team (Late st Contact Info) Description 01/31/2004 Outpatient Historical [facility] Internal Medicine [address] [place] [address] Enrico Stoen MD [address] [place] [address] Social History Tobacco Use Types [...] on filedocumented in this encounter Care Teams Technology Development Intern Relationship Specialty Start Date End Date Puneet Hughes MD [address] [place] [address] PCP - General Internal Medicine 01/03/24 documented as of this encounter
--- OUTSIDE RECORDS SUMMARY | 2024-05-22 05:51 | XMS_ITS | Encounter Summary ---
Author Organization [facility] Address [address] [place] [address] Care Team Providers Care [employer] Principal Name Role Phone Puneet Hughes MD Primary Care Provider [phone] Reason for Visit * Auth/Cert (Routine) Specialty Diagnoses / Procedures Referred By Malena sagastume Referred To Contact Perioperative Diagnoses Bariatric surgery status Bariatric surgery status [Z98.84] Procedures SC EGD TRANSORAL BIOPSY SINGLE/MULTIPLE [place] [address] [place] [address] [place] [address] [facility] [address] [place] [address] Referral ID Status Reason Start Date Expiration Date Visits Re quested Visits Authorized [id number] 1 1 Encounter Details Date Type Department Care Team (Latest Contact Info) Description 03/02/2024 8:45 AM CDT - 03/02/2024 9:00 AM CDT Surgery [facility] [address] [place] [address] [place] [address] [place] [address] [place] [address] ESOPHAGOGASTRODUODENOSCOPY Surgery Details Date/Time Status Location OR Service Patient Class Case Cl ass Case Type Trauma Case? 03/02/2024 8:45 AM Posted [facility] END[facility]COPY GI 02 Endoscopy Outpatient Elective No Panel 1 Procedure LRB Anes Op Region Wound Class Comments ESOPHAGOGASTRODUODENOSCOPY N/A [facility] Mouth Surgeon Surgeon Role Service Panel Lilo Basilio MD Primary Endoscopy 1 documented in this encounter Social History [...] Sign Reading Time Taken Comments Blood Pressure 142/81 03/02/2024 8:09 AM CDT Pulse 60 03/02/2024 8:09 AM CDT Temperature 36.6 ??C (97.9 ??F) 03/02/2024 8:09 AM CD T Respiratory Rate 18 03/02/2024 8:09 AM CDT Oxygen Saturation 95% 03/02/2024 8:09 AM CDT Inhaled Oxygen Concentration - - Weight 134.7 kg (297 lb) 03/02/2024 8:09 AM CDT Height 185.4 cm (6' 1 ) 03/02/2024 8:09 AM CDT Body Mass Index 39.18 03/02/2024 8:09 AM CDT documented in this encounter Discharge Instructions * Discharge Instructions* Lilo Basilio MD - 03/02/2024 8:59 AM CDT ENDOSCOPY CENTER DISCHARGE INSTRUCTIONS You have received sedation medication for your procedure. DO NOT drive or operate any machinery today. DO NOT consume any alcoholic beverages today. You may return to normal activity tomorrow. A feeling of fullness or cramping is normal. It is not uncommon to have localized irritation of the vein at the medication site. A warm moist washcloth over the site can help reduce pain and irritation. No heavy lifting, straining or exercising for the next 24 hours. You may consume a light meal and resume your diet prior to the procedure unless otherwise noted below. If samples were taken during your procedure, please allow 1-2 weeks to receive results. If you don't hear from us by 2 weeks please call the office. Contact your physician if you experience any of the following: Chills and/or fever over 101 degrees Increasing pain, nausea or vomiting Increased abdominal swelling or severe bloating Shortness of breath IF A COMPLICATION OR EMERGENCY SITUATION ARISES AND YOU ARE UNABLE TO REACH YOUR PHYSICIAN - PLEASEGO TO THE NEAREST EMERGENCY DEPARTMENT IMMEDIATELY WITH THIS FORM. Discharge patient to home (ambulatory). - The findings and recommendations were discussed with the patient's family. - Return to clinic as previously scheduled documented in this encounter Medications at Time [...] 11/07/2019 05/03/2024 documented as of this encounter H&P Notes * Lilo Basilio MD - 03/02/2024 8:58 AM CDT History and Physical Patient: Howie Delaney : 1965 Date: 03/02/2024 HISTORY OF PRESENT ILLNESS: Patient is a 58 y.o. male scheduled for EGD for bariatric surgery status. 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 03/01/2024 at 2200 HYDROcodone-acetaminophen (HYCET) 7.5-325 mg/15 mL Solution Take 15 mL by mouth every 4 hours as needed for moderate pain. Max Daily Amount: 90 mL 360 mL 0 ondansetron (Zofran ODT) 8 mg Tablet, Rapid Dissolve Dissolve 1 tablet on top of tongue then swallow with saliva every 8 hours as needed for nausea or vomiting 20 Tablet 2 multivitamin (DAILY-RAKESH) tablet Take 1 Tablet by mouth daily. isosorbide mononitrate (IMDUR) 30 mg Extended Release 24 hour tablet Take 45 mg by mouth daily. furosemide (LASIX) 20 mg tablet Take 40 mg by mouth 2 times daily. carvediloL (COREG) 25 mg tablet Take 25 mg by mouth 2 times daily. atorvastatin (LIPITOR) 40 mg tablet Take 40 mg by mouth daily at bedtime. allopurinoL (ZYLOPRIM) 100 mg tablet Take 200 mg by mouth 2 times daily. albuterol HFA 90 mcg inhaler Take 2 Puffs by inhalation every 4 hours as needed for Shortness of Breath. acetaminophen (TYLENOL) 325 mg tablet Take 650 mg by mouth every 6 hours as needed for Pain. Neck and arm pain Allergies Allergen Reactions Aspirin Other (See Comments) hematuria Social History Socioeconomic History Marital status: Single Spouse name: Not on file Number of children: Not on file Years of education: Not on file Highest education level: Not on file Occupational History Not on file Tobacco Use Smoking status: Never Smokeless tobacco: Never Vaping Use Vaping status: Never Used Substance and Sexual Activity Alcohol use: Yes Drug use: Never Sexual activity: Not on file Other Topics Concern Not on file Social History Narrative Not on file Social Determinants of Health Financial Resource Strain: Low Risk (06/05/2021) Received from [facility] Overall Financial Resource Strain (CARDIA) Difficulty of Paying Living Expenses: Not hard at all Food Insecurity: No Food Insecurity (06/05/2021) Received from [facility] Hunger Vital Sign Worried About Running Out of Food in the Last Year: Never true Ran Out of Food in the Last Year: Never true Transportation Needs: No Transportation Needs (06/05/2021) Received from [facility] PRAPARE - Transportation Lack of Transportation (Medical): No Lack of Transportation (Non-Medical): No Social Connections: Moderately Isolated (06/05/2021) Received from [facility] Social Connection and Isolation Panel [NHANES] Frequency of Communication with Friends and Family: More than three times a week Frequency of Social Gatherings with Friends and Family: More than three times a week Attends Episcopal Services: More than 4 times per year Active Member of Clubs or Organizations: No Attends Club or Organization Meetings: Never Marital Status: Intimate Partner Violence: Not At Risk (03/02/2024) Intimate Partner Violence Patient has indicated abuse: : No Housing Stability: Low Risk (06/05/2021) Received from [facility] Housing Stability Vital Sign Unable to Pay for Housing in the Last Year: No Number of Places Lived in the Last Year: 1 Unstable Housing in the Last Year: No Family History Problem Relation Name Age of Onset Heart Disease Mother REVIEW OF SYSTEMS: Constitutional: no weight loss, no malaise Respiratory: no shortness of breath, no chest pain Cardiovascular: no angina, no palpitation Gastrointestinal: positive for heartburn; no dysphagia, no abdominal pain Musculoskeletal: no muscle pain PHYSICAL EXAM: BP (!) 142/81 (Patient Position (BP): Sitting) Pulse 60 Temp 97.9 ??F (36.6 ??C) Resp 18 Ht6' 1 (1.854 m) Wt 134.7 kg (297 lb) SpO2 95% BMI 39.18 kg/m?? Head: Normal Lungs: Clear to auscultation bilaterally Airway: No apparent abnormalities Heart: Regular rate and rhythm Abdomen: soft, nontender, nondistended Neurologic: alert and oriented x 3 IMPRESSION: Indications for procedure as noted in HPI. PLAN: I discussed in depth with the patient his current clinical situation. Risks of the procedure include but are not limited to sore throat, bleeding, perforation, and complications from anesthesia. He understands and wishes to proceed with the procedure. All of his questions were answered. Lilo Basilio MD documented in this encounter Procedure Notes * Lilo Basilio MD - 03/02/2024 9:08 AM CDTAssociated Order(s): UPPER ENDOSCOPY REPORT [facility] Endoscopy Patient Name: Howie Delaney Procedure Date: [...] previously scheduled. Procedure Code(s): --- Professional --- 25105, Esophagogastroduodenoscopy, flexible, transoral; with biopsy, single or multiple CPT copyright 2020 [employer]. All rights reserved. The codes documented in this report are preliminary and upon senior maintenance mechanic review may be revised to meet current compliance requirements. Lilo Basilio MD 03/02/2024 9:08:01 AM Number of Addenda: [phone] [place] [address] documented in this encounter Plan of Treatment Not on file documented as of this encounter Procedures Procedure Name Priority Date/Time Associated Diagnosis Comments UPPER ENDOSCOPY REPORT 03/02/2024 9:08 AM CDT HELICOBACTER PYLORI RAPID UREASE TEST Routine 03/02/2024 9:00 AM CDT Bariatric surgery status SC EGD TRANSORAL BIOPSY SINGLE/MULTIPLE 03/02/2024 8:45 AM CDT Bariatric surgery status documented in this encounter Results * UPPER ENDOSCOPY REPORT (03/02/2024 9:08 AM CDT) Narrative Procedure Note Lilo Basilio MD - 03/02/2024 9:08 AM CDT [facility] Endoscopy Patient Name: Howie Delaney Procedure Date: [...] previously scheduled. Procedure Code(s): --- Professional --- 33455, Esophagogastroduodenoscopy, flexible, transoral; with biopsy, single or multiple CPT copyright 2020 [employer]. All rights reserved. The codes documented in this report are preliminary and upon senior maintenance mechanic review may be revised to meet current compliance requirements. Lilo Basilio MD 03/02/2024 9:08:01 AM Number of Addenda: [phone] [place] [address] Lilo Basilio MD GI PROCEDURE ORDER MONTEZ * HELICOBACTER PYLORI RAPID UREASE TEST (03/02/2024 9:00 AM CDT) H. PYLORI RAPID UREASE TEST Negative Negative, Indeterminate 03/03/2024 9:22 AM CDT [facility] Tissue ENTIRE STOMACH / Unknown Collection / Unknown 03/02/2024 9:00 AM CDT 03/02/2024 9:53 AM CDT Lilo Basilio MD MICROBIOLOGY - GEN ERAL ORDERABLES [facility] CLIA# [id number] [address] [place] [address] documented in this encounter Visit Diagnoses Diagnosis Bariatric surgery status Bariatric surgery status documented in this encounter Administered Medications Inactive Administered Medications - up to 3 most recent administrations Medication Order MAR Action Action Date Dose Rate Site lactated ringers infusion IV, at 50 mL/hr, CONTINUOUS, Starting on Tue03/02/24 at 0815, Until Tue03/02/24 at 1150, Routine, Pre-op Restarted 03/02/2024 8:57 AM CDT New Bag 03/02/2024 8:26 AM CDT 50 mL/hr documented in this encounter Active and Recently Administered Medications Times are shown in CDT. Continuous Medication Order 02/29/2024 03/01/2024 03/02/2024 lactated ringers infusion IV, at 50 mL/hr, CONTINUOUS, Starting on Tue03/02/24 at 0815, Until Tue03/02/24 at 1150, Routine, Pre-op 0826 (New Bag - Prov ider: Bong To RN)0856 (Paused - Provider: DIEGO Melendez - Comment: Switch to gravity)0857 (Restarted - Provider: DIEGO Melendez)0910 (Stopped - Provider: DIEGO Melendez) documented in this encounter Care Teams [employer] Principal Relationship Specialty Start Date End Date Puneet Hughes MD [address] [place] [id number] PCP - General Internal Medicine 01/03/24 documented as of this encounter
--- OUTSIDE RECORDS SUMMARY | 2024-05-22 05:51 | XMS_ITS | Encounter Summary ---
Author Organization [facility] Address [address] [place]: Epic Prelude ADT [place] [address] Care Team Providers Care Ground Support Equipment Mechanic Name Role Phone Unavailable Primary Care Provider Unavailabl e Encounter Details Date Type Department Care Team (Latest Contact Info) Description 08/01/2020 Travel Social History Tobacco Use Types Packs/Day [...] have Coronavirus / COVID-19? No / Unsure 08/01/2020 8:08 AM HOPS FARMWORKER documented as of this encounter Plan of Treatment Not on file documented as of this encounter Visit Diagnoses Not on filedocumented in this encounter
--- OUTSIDE RECORDS SUMMARY | 2024-05-22 05:51 | XMS_ITS | Encounter Summary ---
Author Organization [facility] Address [address] [place] [address] Care Team Providers Care Salesperson Automobiles Name Role Phone Natasha Bates Primary Care Provider [phone] Kimberly Bell CHIEF RESERVOIR ENGINEERING Unavailable [phone] Reason for Visit * Reason Onset Date Comments Covid-19 Home Monitoring 06/12/2021 Encounter Details Date Type Department Care Team (Late st Contact Info) Description 06/12/[address] [facility] Accountable Care Organization [address] [place] [address] Ghada Peñaloza, [address] [facility] [address] [place] [address] Covid-19 Home Monitoring Social History Tobacco Use [...] often do you attend [facility] or restorationism services? More than 4 times per year 06/05/2021 Do you belong to any clubs o r organizations such as muslim groups, unions, fraternal or athletic groups, or [...] place to sleep or slept in a halfway (including now)? No 06/05/2021 Sex and Gender Information Value Date Recorded Sex Assigned at Not on file Legal Sex 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 SALES STRATEGY MANAGER Gender Identity Not on file Sexual Orientation Not on file documented as of this encounter Miscellaneous Notes * Telephone Encounter - Ghada Peñaloza MA - 06/12/2021 8:17 AM CST COVID Home Monitoring Unable to Reach Called patient for home monitoring WILMER assessment Unable to reach patient. Patient will receive follow up call tomorrow [facility] day 2 S STRATEGY MANAGER documented in this encounter Plan of Treatment Not on file documented as of this encounter Visit Diagnoses Not on filedocumented in this encounter Additional Health Concerns Infection Onset Date Last Indicated Resolved Time COVID19 06/03/2021 06/03/2021 06/14/2021 3:05 AM SALES STRATEGY MANAGER documented as of this encounter Care Teams Salesperson Automobiles Relationship Specialty Start Date End Date Natasha Bates PA [address] [place] [address] PCP - General Physician Social Services 10/08/19 Kimberly Bell LCSW [address] [facility] ([facility] Mailstop [phone] [place] [address] SHOP Outpatient Concrete Inspector 06/05/21 07/05/21 documented as of this encounter
--- OUTSIDE RECORDS SUMMARY | 2024-05-22 05:51 | XMS_ITS | Referral Summary ---
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 Essential hypertension 07/22/2017 Assessment & Plan (07/22/2017 3:16 PM DIRECTOR OF MARKETING OPERATIONS): -continue healthy diet and exercise -continue metoprolol, lasix Immunizations Name Administration Dates Next Due Influenza, Quadrivalent, Spl it, Preservative Free, Intramuscular 05/28/2021,05/11/2019,04/29/2015 Influenza, Unspecified 02/24/2020 Pneumococcal Polysaccharide PPV23 03/31/2020,12/2014 Social History Tobacco Use Types Packs/Day Years [...] week 06/05/2021 How often do you attend [facility] or taoism services? More than 4 times per year [...] money to buy more. Never true 06/05/19 22 Within the past 12 months, t he [...] on file Legal Sex 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 DIRECTOR OF MARKETING OPERATIONS Gender Identity Not on file Sexual Orientation Not on file Last Filed Vital Signs Vital Sign Reading Time Taken Comments Blood Pressure 114/63 06/04/2021 3:18 PM DIRECTOR OF MARKETING OPERATIONS Pulse 58 06/04/2021 3:18 PM DIRECTOR OF MARKETING OPERATIONS Temperature 36.8 ??C (98.2 ??F) 06/04/2021 3:18 PM CS T Respiratory Rate 18 06/04/2021 3:18 PM DIRECTOR OF MARKETING OPERATIONS Oxygen Saturation 96% 06/04/2021 3:18 PM DIRECTOR OF MARKETING OPERATIONS Inhaled Oxygen Concentration - - Weight 127.5 kg (281 lb) 05/27/2021 11:00 AM DIRECTOR OF MARKETING OPERATIONS Height 182.9 cm (6') 05/27/2021 11:00 AM DIRECTOR OF MARKETING OPERATIONS Body Mass Index 38.11 05/27/2021 11:00 AM DIRECTOR OF MARKETING OPERATIONS Plan of Treatment Not on file Medical Devices Implanted Type Area Emissions Technician Device Identifier Shelf Expiration Date Model / Serial / Lot [employer] [id number] [id number] 800 Kit Accessory Sterile Disposable Latex Free Urinary - [id number] - [id number] Implanted:Qty : 1 on 05/27/2021 by Suzette Rogers MD at [facility] Other - see comments N/A: Urethra [employer] 02/22/2026 [id number] / [id number] / [employer] [id number] Ams 800 Control Pump Sphincter Implant Urological Inhibizone - [id number] - [id number] Implanted:Qty : 1 on 05/27/2021 by Suzette Rogers MD at [facility] Other - see comments N/A: Urethra [employer] 04/03/2023 [id number] / [id number] / [employer] [id number] Ams 800 Pressure Balloon Sphincter 61-70cu Cm Implant Urological - [id number] Implanted:Qty : 1 on 05/27/2021 by Suzette Rogers MD at [facility] Other - see comments N/A: Urethra [employer] 03/23/2026 [id number] / / [employer] [id number] Ams 800 4.5cm Occlusive Cuff Sphincter Implant Urological - [id number] Implanted:Qty : 1 on 05/27/2021 by Suzette Rogers MD at [facility] Other - see comments N/A: Urethra [employer] 02/13/2023 [id number] / / Insurance [facility] PLUS [facility] HMO/PPO Address: [facility] [address] [place] [address] CHOICE [place]F [place]PO [place] Member Subscriber Plan / Payer (Ef fective 2021-Present) Name:Howie Delaney Relation to Subscriber:Self Name:Howie Delaney Payer ID:[id number] (NAIC) Type:HEALTHCARE/EXCHANGE Address: [address] CHOICE [place]F [place] Advance Directives For more information, please contact: [phone] Documents on File Type Date Recorded Patient As400 Analyst Expl anation ADVANCE DIRECTIVE 09/06/2017 3:37 PM [...] 5:24 AM 07/22/2017 9:00 PM Care Teams Automobile Radiator Mechanic Relationship Specialty [place] [address] [place] [address] PCP - General Physician Edge Beader 10/08/19
--- OUTSIDE RECORDS SUMMARY | 2024-05-22 05:51 | XMS_ITS | Encounter Summary ---
Author Organization [facility] Address [address] [place] [address] Care Team Providers Care Senior Warehouse Clerk Name Role Phone Puneet Hughes MD Primary Care Provider [phone] Reason for Visit * Auth/Cert (Routine) Specialty Diagnoses / Procedures Referred By Malena sagastume Referred To Contact Perioperative Diagnoses Bariatric surgery status Bariatric surgery status [Z98.84] Procedures WA EGD TRANSORAL BIOPSY SINGLE/MULTIPLE [place] [address] [place] [address] [place] [address] [facility] Endoscopy [address] [place] [address] Referral ID Status Reason Start Date Expiration Date Visits Re quested Visits Authorized [id number] 1 1 Encounter Details Date Type Department Care Team (Latest Contact Info) Description 03/02/2024 7:38 AM CDT - 03/02/2024 9:50 AM CDT Hospital Encounter Person [facility] [address] [place] [address] [place] [address] [place] [address] [place] [address] Bariatric surgery status Discharge Disposition: Home or Self Care Social [...] Sign Reading Time Taken Comments Blood Pressure 121/67 03/02/2024 9:30 AM CDT Pulse 62 03/02/2024 9:30 AM CDT Temperature 36.7 ??C (98.1 ??F) 03/02/2024 9:10 AM CD T Respiratory Rate 16 03/02/2024 9:30 AM CDT Oxygen Saturation 90% 03/02/2024 9:30 AM CDT Inhaled Oxygen Concentration - - [...] SURGERY Artificial urinary sphincter-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 catheterized WA LAPS GSTRC RSTRICTIV PX LONGITUDINAL GASTRECTOMY N/A 08/04/2020 SLEEVE GASTRECTOMY performed by Kelvin Woods MD at [facility] OR Medications Prior to Admission Medication Sig [...] Resource Strain: Low Risk (06/05/2021) Received from [facility] Overall Financial Resource Strain (CARDIA) Difficulty of Paying Living Expenses: Not hard at all Food Insecurity: No Food Insecurity (06/05/2021) Received from [facility] Hunger Vital Sign Worried About Running Out of Food in the Last Year: Never true Ran Out of Food in the Last Year: Never true Transportation Needs: No Transportation Needs (06/05/2021) Received from [facility] PRAPARE - Transportation Lack of Transportation (Medical): No Lack of Transportation (Non-Medical): No Social Connections: Moderately Isolated (06/05/2021) Received from [facility] Social Connection and Isolation Panel [NHANES] Frequency of Communication with Friends and Family: More than three times a week Frequency of Social Gatherings with Friends and Family: More than three times a week Attends Worship Services: More than 4 times per year Active Member of Clubs or Organizations: No Attends Club or Organization Meetings: Never Marital Status: Intimate Partner Violence: Not At Risk (03/02/2024) Intimate Partner Violence Patient has indicated abuse: : No Housing Stability: Low Risk (06/05/2021) Received from [facility] Housing Stability Vital Sign Unable to [...] 9:08 AM CDTAssociated Order(s): UPPER ENDOSCOPY REPORT [facility] Endoscopy Patient Name: Howie Delaney Procedure Date: 03/02/2024 Date of : 1965 Attending MD: Lilo Basilio MD, Procedure: Upper GI endoscopy Indications: Postoperative assessment Providers: Lilo Basiloi MD Referring MD: Medicines: Monitored Anesthesia Care [...] previously scheduled. Procedure Code(s): --- Professional --- 45688, Esophagogastroduodenoscopy, flexible, transoral; with biopsy, single or multiple CPT copyright 2020 [employer]. All rights reserved. The codes documented in this report are preliminary and upon personnel officer review may be revised to meet current compliance requirements. Lilo Basilio MD 03/02/2024 9:08:01 AM Number of Addenda: 0 [id number] [place] [address] documented in this encounter Plan of Treatment Not on file documented as of this encounter Procedures Procedure Name Priority Date/Time Associated Diagnosis Comments UPPER ENDOSCOPY REPORT 03/02/2024 9:08 AM CDT HELICOBACTER PYLORI RAPID UREASE TEST Routine 03/02/2024 9:00 AM CDT Bariatric surgery status WA EGD TRANSORAL BIOPSY SINGLE/MULTIPLE 03/02/2024 8:45 AM CDT Bariatric surgery status documented in this encounter Results * UPPER ENDOSCOPY REPORT (03/02/2024 9:08 AM CDT) Narrative Procedure Note Lilo Basilio MD - 03/02/2024 9:08 AM CDT [facility] Endoscopy Patient Name: Howie Delaney Procedure [...] previously scheduled. Procedure Code(s): --- Professional --- 75687, Esophagogastroduodenoscopy, flexible, transoral; with biopsy, single or multiple CPT copyright 2020 [employer]. All rights reserved. The codes documented in this report are preliminary and upon personnel officer review may be revised to meet current compliance requirements. Lilo Basilio MD 03/02/2024 9:08:01 AM Number of Addenda: [phone] [place] [address] Lilo Basilio MD GI PROCEDURE ORDER MONTEZ * HELICOBACTER PYLORI RAPID UREASE TEST (03/02/2024 9:00 AM CDT) H. PYLORI RAPID UREASE TEST Negative Negative, Indeterminate 03/03/2024 9:22 AM CDT [facility] Tissue ENTIRE STOMACH / Unknown Collection / Unknown 03/02/2024 9:00 AM CDT 03/02/2024 9:53 AM CDT Lilo Basilio MD MICROBIOLOGY - GEN ERAL ORDERABLES [facility]# [id number] [address] [place] [address] documented in this encounter Visit Diagnoses Diagnosis Bariatric surgery status documented in this encounter [...] Melendez) documented in this encounter Care Teams Senior Warehouse Clerk Relationship Specialty Start Date End Date Puneet Hughes MD [address] [place] [address] PCP - General Internal Medicine 01/03/24 documented as of this encounter
--- OUTSIDE RECORDS SUMMARY | 2024-05-22 05:51 | XMS_ITS | Encounter Summary ---
Author Organization [facility] Address [address] [place] [address] Care Team Providers Care Sander Operator Name Role Phone Puneet Hughes MD Primary Care Provider [phone] Encounter Details Date Type Department Care Team (Late st Contact Info) Description 01/03/2004 Outpatient Historical [facility] Internal Medicine [address] [facility] [place] [address] Enrico Stone MD [address] [facility] [address] [place] [address] Social History Tobacco Use Types [...] on filedocumented in this encounter Care Teams Sander Operator Relationship Specialty Start Date End Date Puneet Hughes MD [address] [place] [address] PCP - General Internal Medicine 01/03/24 documented as of this encounter
--- OUTSIDE RECORDS SUMMARY | 2024-05-22 05:51 | XMS_ITS | Encounter Summary ---
Author Organization [facility] Address [address] [place] [address] Care Team Providers Care Japanese Interpreter Name Role Phone Puneet Hughes MD Primary Care Provider [phone] Encounter Details Date Type Department Care Team (Late st Contact Info) Description 01/03/2004 Outpatient Historical [facility] Internal Medicine [address] [facility] [place] [address] Enrico Stone MD [address] [facility] [address] [place] [address] Social History Tobacco Use Types [...] on filedocumented in this encounter Care Teams Japanese Interpreter Relationship Specialty Start Date End Date Puneet Hughes MD [address] [place] [address] PCP - General Internal Medicine 01/03/24 documented as of this encounter
--- OUTSIDE RECORDS SUMMARY | 2024-05-22 05:51 | XMS_ITS | Encounter Summary ---
Author Organization [facility] Address [address] [place] [address] Care Team Providers Care Roofer Gypsum Name Role Phone Unavailable Primary Care Provider Unavailabl e Encounter Details Date Type Department Care Team (Latest Contact Info) Description 07/21/2020 9:39 AM LIQUID FERTILIZER SERVICER - 07/21/2020 11:59 PM LIQUID FERTILIZER SERVICER Hospital Encounter [facility] Pre Surgical Assessment [address] [place] [address] [place] [id number] [place] [address] [place] [address] Discharge Disposition: Home or Self Care Anesthesia Record Procedure Summary Procedure Name Responsible [...] and Graph timeline. 1219 An Stop Meds * Agents No agents on file. * Blood No blood administrations on file. [...] Continuous waveform capnography 08/04/20 1041 by Dejah Alvarado, AA 08/04/20 1208 by Dejah Alvarado, DANA Wound 08/04/20; 1058; No; 1; mid; umbilical area; 08/04/20; 1431 08/04/20 1058 by Puneet Souza RN 08/04/20 1431 by Kriss Ward RN Wound 08/04/20; 1102; No; 2; Left; upper quadrant; 08/04/20; 1433 08/04/20 1102 by Puneet Souza RN 08/04/20 1433 by Kriss Ward RN Wound 08/04/20; 1102; No; Right, lower; flank; 08/04/20; 1432 08/04/20 1102 by Puneet Souza RN 08/04/20 1432 by Kriss Ward [...] Coronavirus / COVID-19? Yes 07/21/2020 9:34 AM LIQUID FERTILIZER SERVICER documented as of this encounter Last Filed Vital Signs Vital Sign Reading Time Taken Comments Blood Pressure 114/64 07/21/2020 10:08 AM LIQUID FERTILIZER SERVICER Pulse 64 07/21/2020 10:08 AM LIQUID FERTILIZER SERVICER Temperature - - Respiratory Rate - - Oxygen Saturation 90% 07/21/2020 10: 08 AM LIQUID FERTILIZER SERVICER Inhaled Oxygen Concentration - - Weight 170.3 kg (375 lb 6.4 oz) 021 10:08 AM LIQUID FERTILIZER SERVICER Height 185.4 cm (6' 1 ) 07/21/2020 10:0 8 AM LIQUID FERTILIZER SERVICER Body Mass Index 49.53 07/21/2020 10:08 AM LIQUID FERTILIZER SERVICER documented in this encounter Medications at Time [...] 11/07/2019 05/03/2024 documented as of this encounter OR Notes * Jessie-OP - Alejandrina Guthrie RN - 07/21/2020 9:45 AM CST TB Screen instructions: Complete the TB screening by asking your patient/family about symptoms/risk factors. Delete symptoms/risk factors that do not apply to your patient. Add up numbers in front of relevant symptoms/risk factors and type in total below. Symptoms/complaints: ??? 0=None Risk Factors: ??? 0=None Total symptom/risk factor values=0 If total is 5 or greater, initiate Airborne Isolation and contact provider. ID FERTILIZER SERVICER * Jessie-OP - Alejandrina Guthrie RN - 07/21/2020 9:45 AM CST Denies rashes, bruises, and open wounds. ID FERTILIZER SERVICER documented in this encounter Plan of Treatment Not on file documented as of this encounter Procedures Procedure Name Priority Date/Time Associated Diagnosis Comments EKG 12-LEAD Routine 07/21/2020 10:57 AM LIQUID FERTILIZER SERVICER CBC WITH DIFFERENTIAL Routine 07/21/2020 10:53 AM LIQUID FERTILIZER SERVICER COMPREHENSIVE METABOLIC PANEL Routine 07/21/2020 10:53 AM LIQUID FERTILIZER SERVICER documented in this encounter Results * EKG 12-LEAD (07/21/2020 10:57 AM LIQUID FERTILIZER SERVICER) 07/21/2020 10:5 7 AM LIQUID FERTILIZER SERVICER Narrative INTERFACE SYSTEM - 07/22/2020 12:26 AM LIQUID FERTILIZER SERVICER ? Stationary ECG Study ?[facility] ? Test Date: ?07/21/2020 10:57 AM Pat Name: ? SANDY FINE ? Department: ?? 60 ? Room: ? Gender: ? M ?Dry Room Operator: ?? LR : ?1965 ? Requested By: VAN WOODS L Order Number: [id number] ?Reading MD: ?? Puneet Martin ? Measurements Intervals ?[place] ? Rate: ? 65 ? P: ?22 [place]: ? 158 ?QRS: ?86 QRSD: ? 102 ?T: ?15 QT: ? 426 ? QTc: ?443 ? Interpretive Statements ? Normal sinus rhythm Possible Left atrial enlargement Borderline ECG Electronically Signed On 07-22-2020 0:26:14 LIQUID FERTILIZER SERVICER by Puneet Martin Procedure Note Puneet Martin MD - 07/22/2020 Stationary ECG Study [facility] Test Date: 07/21/2020 10:57 AM Pat Name: SANDY DELANEY Department: 60 Room: Gender: M Dry Room Operator: LR : 1965 Requested By: KELVIN Longo Order Number: [id number] Danette MD: Puneet Martin Measurements Intervals [place] Rate: 65 P: 22 [place]: 158 QRS: 86 QRSD: 102 T: 15 QT: 426 QTc: 443 Interpretive Statements Normal sinus rhythm Possible Left atrial enlargement Borderline ECG Electronically Signed On 07-22-2020 0:26:14 LIQUID FERTILIZER SERVICER by Puneet Martin Kelvin Woods MD ECG ORDERABLES INTERFACE SYSTEM Refer to clinic/hospital department * (ABNORMAL) COMPREHENSIVE METABOLIC PANEL (07/21/2020 10:53 AM LIQUID FERTILIZER SERVICER) [facility] SODIUM 142 136 - 145 mmol/L 07/21/2020 12:24 PM [facility] POTASSIUM 5.4(H) 3.4 - 5.1 mmol/L 07/21/2020 12:24 PM [facility] CHLORIDE 105 98 - 107 mmol/L 07/21/2020 12:24 PM [facility] CO2 28 22 - 29 mmol/L 07/21/2020 12:24 PM [facility] CALCIUM 9.1 8.6 - 10.4 mg/dL 07/21/2020 12:24 PM [facility] BUN 28(H) 6 - 20 mg/dL 07/21/2020 12:24 PM [facility] CREATININE 1.55(H) 0.67 - 1.17 mg/dL 07/21/2020 12:24 PM [facility] GLUCOSE 89 74 - 99 mg/dL 07/21/2020 12:24 PM [facility] TOTAL PROTEIN 7.3 6.3 - 8.7 g/dL 07/21/2020 12:24 PM [facility] ALBUMIN 3.1(L) 3.5 - 5.2 g/dL 07/21/2020 12:24 PM [facility] BILIRUBIN TOTAL 0.4 0.2 - 1.3 mg/dL 07/21/2020 12:24 PM [facility] ALKALINE PHOSPHATASE 91 40 - 150 U/L 07/21/2020 12:24 PM [facility] AST 18 0 - 41 U/L 07/21/2020 12:24 PM [facility] ALT 18 0 - 41 U/L 07/21/2020 12:24 PM [facility] GFR 47(L) >=60 mL/min/1.7 3 sq meter 07/21/2020 12:24 PM [facility] Comment: eGFR has not been validated for [...] please refer to the GFR result. GFR, 57(L) >=60 mL/min/1.7 3 sq meter 07/21/2020 12:24 PM [facility] [employer] [facility] ANION GAP 9 8 - 16 mmol/L 07/21/2020 12:24 PM [facility] Blood Venipuncture / Unknown 07/21/2020 10:53 AM LIQUID FERTILIZER SERVICER 07/21/2020 11:53 AM LIQUID FERTILIZER SERVICER Kelvin Woods MD CHEMISTRY ORDERABLES [facility] CLIA# [id number] [address] [place] [address] * (ABNORMAL) CBC WITH DIFFERENTIAL (07/21/2020 10:53 AM LIQUID FERTILIZER SERVICER) WBC 11.3(H) 4.5 - 10.5 K/uL 07/21/2020 11:55 AM [facility] RBC 4.68 4.50 - 5.40 M/uL 07/21/2020 11:55 AM [facility] HEMOGLOBIN 13.7 13.6 - 16.5 g/dL 07/21/2020 11:55 AM [facility] HEMATOCRIT 43.1 40.0 - 48.0 % 07/21/2020 11:55 AM [facility] MCV 92.0 82.0 - 99.0 fL 07/21/2020 11:55 AM [facility] MCH 29.2 27.8 - 34.5 pg 07/21/2020 11:55 AM [facility] [employer] [facility] MCHC 31.8(L) 32.5 - 35.5 g/dL 07/21/2020 11:55 AM LIQUID FERTILIZER SERVICER [facility] RDW 17.0(H) 11.5 - 14.5 % 07/21/2020 11:55 AM [facility] PLATELETS 248 160 - 420 K/uL 07/21/2020 11:55 AM [facility] MPV 10.3 8.7 - 12.7 fL 07/21/2020 11:55 AM LIQUID FERTILIZER SERVICER [facility] NEUTROPHILS 63 45 - 70 % 07/21/2020 11:55 AM LIQUID FERTILIZER SERVICER [facility] LYMPHOCYTES 24 16 - 45 % 07/21/2020 11:55 AM LIQUID FERTILIZER SERVICER [facility] MONOCYTES 8 3 - 13 % 07/21/2020 11:55 AM LIQUID FERTILIZER SERVICER [facility] EOSINOPHILS 4 0 - 7 % 07/21/2020 11:55 AM LIQUID FERTILIZER SERVICER [facility] BASOPHILS 1 0 - 2 % 07/21/2020 11:55 AM LIQUID FERTILIZER SERVICER [facility] NEUTROPHIL ABSOLUTE 7.10(H) 1.90 - 7.00 K/uL 07/21/2020 11:55 AM LIQUID FERTILIZER SERVICER [facility] LYMPHOCYTE ABSOLUTE 2.70 0.70 - 4.50 K/uL 07/21/2020 11:55 AM LIQUID FERTILIZER SERVICER [facility] MONOCYTE ABSOLUTE 0.80 0.10 - 1.30 K/uL 07/21/2020 11:55 AM LIQUID FERTILIZER SERVICER [facility] EOSINOPHIL ABSOLUTE 0.50 0.00 - 0.70 K/uL 07/21/2020 11:55 AM LIQUID FERTILIZER SERVICER [facility] BASOPHILS ABSOLUTE 0.10 0.00 - 0.20 K/uL 07/21/2020 11:55 AM LIQUID FERTILIZER SERVICER [facility] Blood Venipuncture / Unknown 07/21/2020 10:53 AM LIQUID FERTILIZER SERVICER 07/21/2020 11:50 AM LIQUID FERTILIZER SERVICER Kelvin Woods MD HEMATOLOGY ORDERABLE S [facility] [employer] [facility]# [id number] [place] [address] documented in this encounter Visit Diagnoses Not on filedocumented in this encounter
--- OUTSIDE RECORDS SUMMARY | 2024-05-22 05:51 | XMS_ITS | Continuity of Care Document ---
Author Organization [facility] Address [address] [place] [address] [place] [address] Phone Care Team Providers Care Talent Program Manager Name Role Phone Von Meyer MD Unavailable Unavailable Procedures Procedure Date Office/outpatient Visit, [facility] Advance Directives Directive Yes / No Effective Date File Name No Information Encounters Encounter Description Practice Location Reason(s) For Visit Diagnoses Date Provider Providers Copied on Encounter Office/outpat ient Visit, [facility], [address] [place], [place], [id number], [place] tel:[phone] [address] [facility] No Information [address]. [address], [address], [place], [place], [id number], [place]. tel:[phone] Family History Family Member Type Diagnosis Age At Onset No Information Payers Payer name Insurance type Covered democrat ID Josie tomlinson(s) [id number] Social History Type Description Quantity Date Captured Comments Sex Male Smoking Status No Information Chief Complaint And Reason For Visit No Information Reason For Referral Reason For Referral No Information History Of Present Illness Encounter Date Complaint History Of Prese nt Illness No Information Functional Status Date Functional Assessmen t No Information Instructions Date Instruction Additional Infor mation No Information Assessments Type Assessment Date No Information Patient Care Teams Name Effective Dates (start - stop) Status Members No Information
--- OUTSIDE RECORDS SUMMARY | 2024-05-22 05:51 | XMS_ITS | Encounter Summary ---
Author Organization [facility] Address [address] [place] [address] Phone Care Team Providers Care Game Farm Supervisor Name Role Phone Natasha Bates Primary Care Provider Encounter Details Date Type Department Care Team (Late st Contact Info) Description 02/09/2024 Orders Only [facility] [address] [place] [address] Unknown, Notinfile Social History Tobacco Use Types Packs/Day Years [...] often do you attend chur ch or church services? More than 4 times per year 06/05/2021 Do you belong to any clubs o r organizations such as hoahaoism groups, unions, fraternal or athletic groups, or [...] place to sleep or slept in a mcc (including now)? No 06/05/2021 Sex and Gender Information Value Date Recorded Sex Assigned at Not on file Legal Sex 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 PREBOARDER Gender Identity Not on file Sexual Orientation Not on file documented as of this encounter Plan of Treatment Not on file documented as of this encounter Procedures Procedure Name Priority Date/Time Associated Diagnosis Comments SURGICAL PATHOLOGY Routine 02/09/2024 11 :10 AM CDT documented in this encounter Results * Surgical pathology (02/09/2024 11:10 AM CDT) Skin, shave biopsy 02/09/2024 11:10 AM CDT 02/10/2024 8:33 AM CDT Narrative 02/13/2024 12:13 PM CDT EPIC results best viewed via link to PDF [facility] [address] [place] [address] Ave[address] ??[address], [place] [address] ? [email or web address] Note to Patients: ??This report may contain a detailed description of human tissue sent by a health care provider to the laboratory for pathologic evaluation. ??The content of this report is essential for diagnosis and may provide important critical findings. ??This information may be unfamiliar to patients to review without a medical professional present. ?? It is advised that the patient review this report in the presence of a health care provider who can answer questions and explain the details. FINAL REPORT Patient Information: PATIENT NAME: ??HOWIE DELANEY ? SEX: ??M ? : ??1965 (Age: 58) ? Specimen Information: COLLECTED: ??02/09/2024 ? RECEIVED: ??02/10/2024 ? REPORTED: ??02/13/2024 ? Submitting Physician Information: Melva Weldon, [facility], [address] [place] [address] ??[id number], ? DERMATOPATHOLOGY REPORT RESULTS ?? DIAGNOSIS: SKIN, LEFT CENTRAL ZYGOMA, SHAVE BIOPSY: ? SEBORRHEIC KERATOSIS jonn/lac By this signature, I attest that the above diagnosis is based upon my personal examination of the slides(and/or other material indicated in the diagnosis). Eri Martin M.D. ?? Report Electronically Reviewed and Signed Out By ??Eri Martin M.D. 02/13/2024 12:13:44 CLINICAL INFORMATION NEOPLASM OF UNCERTAIN BEHAVIOR VS IRRITATED SEBORRHEIC KERATOSIS VS DYSPLASTIC NEVUS SPECIMEN DATA MICROSCOPIC DESCRIPTION: There is hyperkeratosis, papillated and reticulated epithelial hyperplasia and horn pseudocysts. (L82.1) GROSS DESCRIPTION: Received in a formalin-containing bottle is a superficial fragment of crabtree-payton, finely scaling and semi-translucent skin measuring 0.7 by 0.5 by 0.1 cm. The surgical margin is inked blue. The specimen is sectioned into 2 pieces and submitted entirely in a single cassette. Due to shrinkage, measurements may be different than those at time of procedure. dh/dxv ICD-9 A; ZSD.1411 ? Clerical Data A; 74538 The characteristics of special, immunohistochemical, and immunofluorescence stains and in-situ hybridization tests performed by the [facility] were deemed acceptable in ongoing director supplier quality measures and in compliance with regulations drawn from the Clinical Laboratory Improvement Act ef5921 (CLIA '88). Control reactions for all stains performed were deemed adequate and appropriate by a pathologist prior to evaluation of patient tissue. Some diagnoses were rendered with the assistance of laboratory-developed tests utilizing analyte-specific reagents; the performance characteristic of these tests were determined by [facility] and are not cleared or approved by the [place] Food an Drug administration. Laboratory developed test may only be performed in a facility that is certified by the [facility] as a high-complexity laboratory under CLIA '88. These tests are used for clinical purposes and are not investigational. us Notinfile Unknown LAB PATHOLOGY ORDERABLES Final Result documented in this encounter Visit Diagnoses Not on filedocumented in this encounter Care Teams Game Farm Supervisor Relationship Specialty Start Date End Date Natasha Bates PA [address] [place] [address] PCP - General Physician [employer] Supervisor 10/08/19 documented as of this encounter
--- OUTSIDE RECORDS SUMMARY | 2024-05-22 05:51 | XMS_ITS | Encounter Summary ---
Author Organization [facility] Address [address] [place] [address] Care Team Providers Care Information Assurance Analyst Name Role Phone Unavailable Primary Care Provider Unavailabl e Reason for Visit * Auth/Cert Specialty Diagnoses / Procedures Referred By Malena sagastume Referred To Contact Multi Specialty Diagnoses MORBID OBESITY Procedures ND LAP, FELICIANO RESTRICT PROC, LONGITUDINAL GASTRECTOMY SLEEVE GASTRECTOMY [facility] Operating Room [id number] [place] [id number] Referral ID Status Reason Start Date Expiration Date Visits Re quested Visits Authorized [id number] 1 1 Encounter Details Date Type Department Care Team (Late st Contact Info) Description 08/04/2020 11:10 AM CDT - 08/04/2020 1:08 PM CDT Surgery [facility] Operating Room [address] [place] [address] Kelvin Woods MD [address] [place] [address] [place] [address] SLEEVE GASTRECTOMY Surgery Details Date/Time Status Location OR Service Patient Class Case Class Case Type Trauma Case? 08/04/2020 11:10 AM Posted [facility] OR OR 21 General Surgery Surgery Admit Elective No Panel 1 Procedure LRB Anes Op Region Wound Class Comments SLEEVE GASTRECTOMY N/A General Abdomen Clean-I Surgeon Surgeon Role Service Panel Lilo Basilio MD Assisting General Surgery 1 Kelvin Woods MD Primary General Surgery 1 Special Needs SLEEVE TRAY PT'S INSURANCE BCBS. RUTHANN'D PER FAX. CASE BREONNA'D PER SHIRIN Ugalde NOTIFIED PSA OF DATE CHANGE. documented in this encounter Social History Tobacco [...] Sign Reading Time Taken Comments Blood Pressure 122/76 08/04/2020 1:05 PM CDT Pulse 64 08/04/2020 1:05 PM CDT Temperature 36.7 ??C (98.1 ??F) 08/04/2020 1 2:19 PM CDT Respiratory Rate 11 08/04/2020 1:05 PM CDT Oxygen Saturation 92% 08/04/2020 1:05 PM CDT Inhaled Oxygen Concentration - - [...] on home cpap. No concerns * Sully Boyer PHARMACIST - 08/04/2020 8:55 AM CDT Clinical [...] Cefazolin Surgical Prophylaxis Weight-Based Dosing Protocol (Adult). OLIVER Wagner 08/04/2020 documented in this encounter H&P Notes * Kelvin Woods MD - 08/04/2020 10:01 AM CDT [facility] History and Physical Patient: Howie Carr : [...] Procedure Laterality Date ??? HX BLADDER SURGERY 2017 x2- exploratory surgery, sphincter muscles were cut; [...] file Gets together: Not on file Attends mu-ism service: Not on file Active member of [...] PM CDTAssociated Order(s): IP CONSULT TO HOSPITALIST [facility] Consult note DOS: 08/04/2020 DOA: 08/04/2020 [...] suicidal ideations (-), schizophrenia (-), insomnia (-) MOTOR CARRIER INSPECTOR: Lightheadedness (-), dizziness (-), seizures (-), strokes [...] mass Peripheries: no edema, no calf tenderness MOTOR CARRIER INSPECTOR: Grossly non focal Psych: AAOx3. Normal affect [...] peptic ulcer disease. IMPRESSION: Normal. DICTATION LOCATION: Location [address] [place] [address] Chart reviewed, consults, progress notes, data, labs [...] Woods MD - 08/04/2020 11:59 AM CDT [facility] PATIENT NAME: Howie Carr DATE OF : 1965 DATE OF SURGERY: 08/04/2020 PREOPERATIVE DIAGNOSIS: Morbid Obesity with Comorbidities POSTOPERATIVE DIAGNOSIS: Morbid Obesity with Comorbidities PROCEDURE: Laparoscopic Vertical Sleeve Gastrectomy with Insertion of Tunneled Abdominal Wall Catheters x2 SURGEON: Kelvin Woods MD GUNITE MIXER: Dr. Basilio ANESTHESIA: General Endotracheal SPECIMEN: Unremarkable [...] lines were performed using a 60 mm CovFormabilioen linear staplerwith black loads and SeamGuard. Subsequent [...] CST Patient to obtain COVID testing at [facility] per protocol to be done on 08/01/2020 for surgery on 08/04/[address] Woods. DOS changed so covid testing date changed as well. Patient aware of newdate/time. ICAL TECH documented in this encounter Miscellaneous Notes * Care Plan - Shirin Hernandez RN - 08/05/2020 1:51 PM CDT Tool Room Supervisor Rounds: Patient sitting on the side of the bed, ambulating in the childress and tolerating small sips of clear liquids without nausea. Patient denies discomfort. Reviewed discharge instructions and contact information for the surgeons and coordinator: Clear liquid diet with protein water. Goal 6-8 oz of clear liquids every hour Ambulating at least 4 times a day Incisional care - [place] [facility] Shower daily No lifting over [...] continuous Services in the home: NA with [employer]. Maintenance hemodialysis occurs on days NA with [employer]. Treatment time is NA. Emergency contact(s): Extended Emergency Contact Information Primary Emergency Contact: RENATE CARR Mobile Relation: Daughter Secondary Emergency Contact: TIANNA AMARAL Mobile Relation: Friend POA/Surrogate Decision Maker: Edmar Chirinos Patient identified Edmar Chirinos as their Primary Caregiver. Patient does want caregiver involvedin discharge planning. Caregiver is willing and able to assist with patient's care. Caregiver has not been contacted. Insurance coverage verified: Payor: ANTHEM / Plan: OUT OF STATE BLUE PREFERRED / Product Type: BlueCross / Prescription coverage: yes Preferred Pharmacy verified: [id number] - [place], [place] - [address] [facility] [address] Employment Status: commentsSelf employed Has VA Benefits: no PCP verified as No primary care provider on file. Patient has not had a stay at an acute care hospital in the last 30 days. Recent Falls?: Last Known Fall: No falls Plan for transportation at discharge: Friend Tianna will transport Patient has a [employer] account: yes Patient has a smart device: [...] in chair. AM medications given per orders. MEDICAL MALPRACTICE PARALEGAL Shirin at bedside. Head to toe assessment [...] and use ofIS. Verbalizes understanding. Abdominal incisions LEGAL EDITOR; intact with Exofen. All care explained. Calllight [...] Cefazolin Surgical Prophylaxis Weight-Based Dosing Protocol (Adult) [facility] ORDERS ARE ENTERED ???PER PROTOCOL?? Enter the [...] 12/2017 Department: Pharmacy Reviewed: P&T 12/2018, 12/2019; [facility]: 12/2018, 12/2019 Revised: Approved by: Suze Ewing, Nurse Link Wire Fabric Machine Operator Date: 12/29/2017 Approved by: Mohamud Lemus MD, Apprentice Cosmetologist, Antimicrobial Stewardship Subcommittee Date: 12/20/2017 Approved by: [...] POC GLUCOSE Routine 08/04/2020 12:19 PM CDT ND LAPS GSTRC RSTRICTIV PX LONGITUDINAL GASTRECTOMY 08/04/2020 11:10 AM CDT MORBID OBESITY Special Needs SLEEVE TRAY PT'S INSURANCE BCBS. RUTHANN'D PER FAX. CASE BREONNA'D PER SHIRIN PAZ PSA OF DATE CHANGE. POC GLUCOSE Routine 08/04/2020 9:36 AM CDT BASIC METABOLIC PANEL Stat 08/04/2020 9:05 AM CDT documented in this encounter Results * MAGNESIUM LEVEL (08/05/2020 5:26 AM CDT) MAGNESIUM 1.8 1.6 - 2.6 mg/dL 08/05/2020 6:40 AM CDT [facility] Blood Venipuncture / Unknown 08/05/2020 5:26 AM CDT 08/05/2020 6:09 AM CDT Paul Manrique MD CHEMISTRY ORDERABLES [facility] CLIA# [id number] [place] [address] * (ABNORMAL) COMPREHENSIVE METABOLIC PANEL (08/05/2020 5:26 AM CDT) SODIUM 139 136 - 145 mmol/L 08/05/2020 6:40 AM CDT [facility] POTASSIUM 4.6 3.4 - 5.1 mmol/L 08/05/2020 6:40 AM CDT [facility] CHLORIDE 100 98 - 107 mmol/L 08/05/2020 6:40 AM CDT [facility] CO2 23 22 - 29 mmol/L 08/05/2020 6:40 AM CDT [facility] CALCIUM 8.5(L) 8.6 - 10.4 mg/dL 08/05/2020 6:40 AM CDT [facility] BUN 43(H) 6 - 20 mg/dL 08/05/2020 6:40 AM T [facility] CREATININE 1.68(H) 0.67 - 1.17 mg/dL 08/05/2020 6:40 AM T [facility] GLUCOSE 115(H) 74 - 99 mg/dL 08/05/2020 6:40 AM T [facility] TOTAL PROTEIN 7.0 6.3 - 8.7 g/dL 08/05/2020 6:40 AM T [facility] ALBUMIN 3.2(L) 3.5 - 5.2 g/dL 08/05/2020 6:40 AM CDT [facility] BILIRUBIN TOTAL 0.3 0.2 - 1.3 mg/dL 08/05/2020 6:40 AM CDT [facility] ALKALINE PHOSPHATASE 102 40 - 150 U/L 08/05/2020 6:40 AM CDT [facility] AST 40 0 - 41 U/L 08/05/2020 6:40 AM CDT [facility] ALT 27 0 - 41 U/L 08/05/2020 6:40 AM CDT [facility] GFR 43(L) >=60 mL/min/1.7 3 sq meter 08/05/2020 6:40 AM CDT [facility] Comment: eGFR has not been validated for [...] 3 sq meter 08/05/2020 6:40 AM CDT [facility] ANION GAP 16 8 - 16 mmol/L 08/05/2020 6:40 AM T [facility] Blood Venipuncture / Unknown 08/05/2020 5:26 AM CDT 08/05/2020 6:09 AM CDT Paul Manrique MD CHEMISTRY ORDERABLES [facility] CLIA# [id number] [place] [address] * (ABNORMAL) CBC WITH DIFFERENTIAL (08/05/2020 5:26 AM CDT) WBC 8.5 4.5 - 10.5 K/uL 08/05/2020 6:26 AM CDT [facility] RBC 4.48(L) 4.50 - 5.40 M/uL 08/05/2020 6:26 AM CDT [facility] HEMOGLOBIN 13.3(L) 13.6 - 16.5 g/dL 08/05/2020 6:26 AM CDT [facility] HEMATOCRIT 40.6 40.0 - 48.0 % 08/05/2020 6:26 AM CDT [facility] MCV 90.6 82.0 - 99.0 fL 08/05/2020 6:26 AM CDT [facility] MCH 29.7 27.8 - 34.5 pg 08/05/2020 6:26 AM CDT [facility] MCHC 32.8 32.5 - 35.5 g/dL 08/05/2020 6:26 AM CDT [facility] RDW 16.9(H) 11.5 - 14.5 % 08/05/2020 6:26 AM CDT [facility] PLATELETS 215 160 - 420 K/uL 08/05/2020 6:26 AM CDT [facility] MPV 11.0 8.7 - 12.7 fL 08/05/2020 6:26 AM CDT [facility] NEUTROPHILS 79(H) 45 - 70 % 08/05/2020 6:26 AM CDT [facility] LYMPHOCYTES 16 16 - 45 % 08/05/2020 6:26 AM CDT [facility] MONOCYTES 4 3 - 13 % 08/05/2020 6:26 AM CDT [facility] EOSINOPHILS 0 0 - 7 % 08/05/2020 6:26 AM CDT [facility] BASOPHILS 0 0 - 2 % 08/05/2020 6:26 AM CDT [facility] NEUTROPHIL ABSOLUTE 6.70 1.90 - 7.00 K/uL 08/05/2020 6:26 AM CDT [facility] LYMPHOCYTE ABSOLUTE 1.40 0.70 - 4.50 K/uL 08/05/2020 6:26 AM CDT [facility] MONOCYTE ABSOLUTE 0.40 0.10 - 1.30 K/uL 08/05/2020 6:26 AM CDT [facility] EOSINOPHIL ABSOLUTE 0.00 0.00 - 0.70 K/uL 08/05/2020 6:26 AM CDT [facility] BASOPHILS ABSOLUTE 0.00 0.00 - 0.20 K/uL 08/05/2020 6:26 AM CDT [facility] Blood Venipuncture / Unknown 08/05/2020 5:26 AM CDT 08/05/2020 6:19 AM CDT Paul Manrique MD HEMATOLOGY ORDERABLE S [facility] CLIA# [id number] [place] [address] * (ABNORMAL) CBC WITH DIFFERENTIAL (08/04/2020 2:16 PM CDT) WBC 11.9(H) 4.5 - 10.5 K/uL 08/04/2020 2:46 PM CDT [facility] RBC 4.36(L) 4.50 - 5.40 M/uL 08/04/2020 2:46 PM CDT [facility] HEMOGLOBIN 12.8(L) 13.6 - 16.5 g/dL 08/04/2020 2:46 PM CDT [facility] HEMATOCRIT 39.5(L) 40.0 - 48.0 % 08/04/2020 2:46 PM CDT [facility] MCV 90.6 82.0 - 99.0 fL 08/04/2020 2:46 PM CDT [facility] MCH 29.4 27.8 - 34.5 pg 08/04/2020 2:46 PM CDT [facility] MCHC 32.4(L) 32.5 - 35.5 g/dL 08/04/2020 2:46 PM CDT [facility] RDW 16.8(H) 11.5 - 14.5 % 08/04/2020 2:46 PM CDT [facility] PLATELETS 205 160 - 420 K/uL 08/04/2020 2:46 PM CDT [facility] MPV 11.1 8.7 - 12.7 fL 08/04/2020 2:46 PM CDT [facility] NEUTROPHILS 87(H) 45 - 70 % 08/04/2020 2:46 PM CDT [facility] LYMPHOCYTES 12(L) 16 - 45 % 08/04/2020 2:46 PM CDT [facility] MONOCYTES 1(L) 3 - 13 % 08/04/2020 2:46 PM CDT [facility] EOSINOPHILS 0 0 - 7 % 08/04/2020 2:46 PM CDT [facility] BASOPHILS 1 0 - 2 % 08/04/2020 2:46 PM CDT [facility] NEUTROPHIL ABSOLUTE 10.30(H) 1.90 - 7.00 K/uL 08/04/2020 2:46 PM CDT [facility] LYMPHOCYTE ABSOLUTE 1.40 0.70 - 4.50 K/uL 08/04/2020 2:46 PM CDT [facility] MONOCYTE ABSOLUTE 0.10 0.10 - 1.30 K/uL 08/04/2020 2:46 PM CDT [facility] EOSINOPHIL ABSOLUTE 0.00 0.00 - 0.70 K/uL 08/04/2020 2:46 PM CDT [facility] BASOPHILS ABSOLUTE 0.10 0.00 - 0.20 K/uL 08/04/2020 2:46 PM CDT [facility] Blood Venipuncture / Unknown 08/04/2020 2:16 PM CDT 08/04/2020 2:34 PM CDT Kelvin Woods MD HEMATOLOGY ORDERABLE S [facility] CLIA# [id number] [place] [address] * POC GLUCOSE (08/04/2020 12:19 PM CDT) GLUCOSE POC 90 74 - 99 mg/dL 08/04/2020 12:19 PM CDT [facility] POINT OF CARE REGISTERED PHARMACY TECHNICIAN NAME POC CATY WALTER 08/04/2020 12:19 PM CDT [facility] POINT OF CARE Blood, whole 08/04/2020 12:1 9 PM CDT 08/04/2020 12:20 PM CDT Kelvin Woods MD POINT OF CARE TESTIN G Performing Organization Address City/[facility]/ZIP Co de Phone Number [facility] POINT OF CARE CLIA # [id number] [place] [address] * POC GLUCOSE (08/04/2020 9:36 AM CDT) GLUCOSE POC 74 74 - 99 mg/dL 08/04/2020 9:36 AM CDT [facility] POINT OF CARE REGISTERED PHARMACY TECHNICIAN NAME POC JUANITA SOLARES 08/04/2020 9:36 AM CDT [facility] POINT OF CARE Blood, whole 08/04/2020 9:36 AM CDT 08/04/2020 9:44 AM CDT Kelvin Woods MD POINT OF CARE TESTBRIGITTE Perera Performing Organization Address [facility]/ZIP Co de Phone Number [facility] POINT OF CARE CLIA # [id number] [place] [address] * (ABNORMAL) BASIC METABOLIC PANEL (08/04/2020 9:05 AM CDT) SODIUM 138 136 - 145 mmol/L 08/04/2020 9:48 AM CDT [facility] POTASSIUM 4.7 3.4 - 5.1 mmol/L 08/04/2020 9:48 AM CDT [facility] Comment:Moderate hemolysis p resent. Can cause significant falsely elevated result. Redraw if indicated. CHLORIDE 98 98 - 107 mmol/L 08/04/2020 9:48 AM CDT [facility] CO2 26 22 - 29 mmol/L 08/04/2020 9:48 AM T [facility] CALCIUM 9.6 8.6 - 10.4 mg/dL 08/04/2020 9:48 AM [facility] BUN 33(H) 6 - 20 mg/dL 08/04/2020 9:48 AM T [facility] CREATININE 1.85(H) 0.67 - 1.17 mg/dL 08/04/2020 9:48 AM T [facility] GLUCOSE 89 74 - 99 mg/dL 08/04/2020 9:48 AM T [facility] GFR 38(L) >=60 mL/min/1.7 3 sq meter 08/04/2020 9:48 AM T [facility] Comment: eGFR has not been validated for [...] mL/min/1.7 3 sq meter 08/04/2020 9:48 AM CDT [facility] ANION GAP 14 8 - 16 mmol/L 08/04/2020 9:48 AM T [facility] Blood Venipuncture / Unknown 08/04/2020 9:05 AM CDT 08/04/2020 9:19 AM CDT Heidy lAfaro MD CHEMISTRY ORDERABLES [facility] CLIA# [id number] [place] [address] * 2019 NOVEL CORONAVIRUS (COVID-19) PCR DETECTION (08/01/2020 12:32 PM SURGICAL TECH) COVID-19 PCR NOT DETECTED Not Detected 08/03/19 3:07 PM SURGICAL TECH [facility] PERFORMING LAB [facility] 08/02/2020 3:07 PM SURGICAL TECH [facility] Upper Respiratory ENTIRE NASOPHARYNX / Unknown Collection / Unknown 08/01/2020 12:32 PM SURGICAL TECH 08/01/2020 9:15 PM SURGICAL TECH [facility] - 08/02/2020 3:07 PM SURGICAL TECH This test has been authorized by the [...] 2019-Novel Coronavirus. Kelvin Woods MD MICROBIOLOGY - [facility] AL ORDERABLES [facility]# [id number] [address] [place] [id number] documented in this encounter Visit Diagnoses Not on filedocumented in this encounter Administered Medications Inactive Administered Medications - up to 3 most recent administrations Medication Order MAR Action Action Date Dose Rate Site allopurinoL (ZYLOPRIM) tablet 200 mg 200 mg, Oral, TWO TIMES DAILY, First dose on Tue08/05/20 at 0900, Until Discontinued, Routine, Previous Med: allopurinoL (ZYLOPRIM) 100 mg tablet - Orig Sig - Take 200 mg by mouth 2 times daily. Given 08/05/2020 9:05 AM CDT 200 mg bupivacaine PF (SENSORCAINE MPF) 5 mg/mL [...] 12:58 PM CDT 4 mL 2 mL/hr bupivacaine PF (SENSORCAINE MPF) 5 mg/mL (0.5%) injection INTRA-PROCEDURE PRN, Starting on Tue08/04/20 at 1152, Until Tue08/04/20 at 1213, Routine, Intra-op Given 08/04/2020 11:52 AM CDT 30 mL Abdominal Tissue carvediloL (COREG) tablet 25 mg 25 mg, Oral, TWO TIMES DAILY, First dose on Tue08/05/20 at 0900, Until Discontinued, Routine, Previous Med: carvediloL (COREG) 25 mg tablet - Orig Sig - Take 25 mg by mouth 2 times daily. Given 08/05/2020 9:06 AM CDT 25 mg diphenhydrAMINE (BENADRYL) 12.5 mg/5 mL elixir [...] Given 08/05/2020 3:57 AM CDT 15 mL isosorbide mononitrate (IMDUR) SR 24 hour tablet 45 mg 45 mg, Oral, DAILY, First dose on Tue08/05/20 at 0900, Until Discontinued, Routine, Previous Med: isosorbide mononitrate (IMDUR) 30 mg Extended Release 24 hour tablet - Orig Sig - Take 45 mg by mouth daily. Given 08/05/2020 9:05 AM CDT 45 mg metoclopramide (REGLAN) 5 mg/mL injection 10 mg 10 mg, IV, EVERY 6 HOURS PRN, Starting on Tue08/04/20 at 1409, Until Tue08/05/20 at 1754, Nausea/Emesis, Routine, Post-op - Floor Given 08/05/2020 12:13 AM CDT 10 mg morphine 4 mg/mL injection 2 mg [...] 08/04/2020 5:30 PM CDT 4 mg prochlorperazine maleate (COMPAZINE) tablet 10 mg [...] this section may contain times in both SURGICAL TECH and CDT. Scheduled Medication Order 08/03/2020 08/04/2020 [...] Floor 1423 (New Bag - Provider: Kriss Ward, AVA)1438 (Stopped - Provider: Kriss Ward RN) acetaminophen (OFIRMEV) 10 mg/ml injection 1,000 mg (COMPLETED) 1,000 mg, IV, ONE TIME ONLY, 1 dose, On Tue08/04/20 at 2000, Routine, Post-op - Floor 203 (New Bag - Provider: Silvana Aggarwal, AVA)204 (Stopped - Provider: Silvana Aggarwal RN) allopurinoL [...] prophylaxis 1727 (New Bag - Provider: Kriss Ward, AVA)1757 (Stopped - Provider: Kriss Ward RN) 0352 [...] 40 mg by mouth 2 times daily. 09 (Given - Provid er: Cherry Newman RN)1500 [...] Post-op - Floor, Antibiotic Indication: Surgical prophylaxis 181 (New Bag - Provider: Kriss Ward RN)1910 [...] Woods RN - Comment: medication pulled per Lance Bustos RN)1245 (Given - Provider: Teresa Woods RN)1256 [...] Routine, PACU 1221 (Given - Provider: Teresa Woods, AVA) ondansetron (ZOFRAN) 4 mg/2 mL injection 4 mg 4 mg, IV, EVERY 6 HOURS PRN, Starting on Tue08/04/20 at 1409, Until Tue08/05/20 at 1754, Nausea/Emesis, Routine, Post-op - Floor 1730 (Given - Provider: Kriss Ward RN) 0357 (Given - Provider: Silvana Aggarwal RN) prochlorperazine (COMPAZINE) injection 5 mg (COMPLETED) 5 [...]
--- OUTSIDE RECORDS SUMMARY | 2024-05-22 05:51 | XMS_ITS | Encounter Summary ---
Author Organization [facility] Address [address] [place]: Epic Prelude ADT [place] [address] Care Team Providers Care Architecture Internship Name Role Phone Unavailable Primary Care Provider Unavailabl e Encounter Details Date Type Department Care Team (Latest Contact Info) Description 08/04/2020 Travel Social History Tobacco Use Types Packs/Day [...] AM CDT documented as of this encounter Plan of Treatment Not on file documented as of this encounter Visit Diagnoses Not on filedocumented in this encounter
--- OUTSIDE RECORDS SUMMARY | 2024-05-22 05:51 | XMS_ITS | Encounter Summary ---
Author Organization [facility] Address [address] [place] [address] Care Team Providers Care Travertine Installer Name Role Phone Unavailable Primary Care Provider Unavailabl e Reason for Referral * Radiology Services (Routine) - Closed Specialty Diagnoses / Procedures Referred By Malena sagastume Referred To Contact Radiology Diagnoses Esophageal reflux Procedures XR UPR GI AIR CONTRAST Kelvin Woods MD [address] [place] [address] [facility] Diagnostic Xr [address] [place] [address] Referral ID Status Reason Start Date Expiration Date V isits Requested Visits Authorized [id number] Closed [facility] CTS 07/01/2020 08/01/2021 1 1 RY WORKER CONVEYOR LINE Reason for Visit * Radiology Services (Routine) - Closed Specialty Diagnoses / Procedures Referred By Malena sagastume Referred To Contact Radiology Diagnoses Esophageal reflux Procedures XR UPR GI AIR CONTRAST Kelvin Woods MD [address] [place] [address] [facility] Diagnostic Xr [address] [place] [address] Referral ID Status Reason Start Date Expiration Date V isits Requested Visits Authorized [id number] Closed [facility] CTS 07/01/2020 08/01/2021 1 1 Encounter Details Date Type Department Care Team (Latest Contact Info) Description 07/21/2020 11:12 AM BAKERY WORKER CONVEYOR LINE - 07/21/2020 11:59 PM BAKERY WORKER CONVEYOR LINE Hospital Encounter [facility] Diagnostic XR [address] [place] [address] [place] [address] [facility] [place] [address] [place] [address] Discharge Disposition: Home or Self Care Social [...] Coronavirus / COVID-19? Yes 07/21/2020 9:34 AM BAKERY WORKER CONVEYOR LINE documented as of this encounter Medications at [...] 11/07/2019 05/03/2024 documented as of this encounter Plan of Treatment Not on file documented as of this encounter Procedures Procedure Name Priority Date/Time Associated Diagnosis Comments XR UPR GI AIR CONTRAST Routine 07/21/2020 12:05 PM BAKERY WORKER CONVEYOR LINE Esophageal reflux documented in this encounter Results * XR UPR GI AIR CONTRAST (07/21/2020 12:05 PM BAKERY WORKER CONVEYOR LINE) Anatomical Region Laterality Modality Abdomen Computed Radiogr aphy 07/21/2020 12:1 0 PM BAKERY WORKER CONVEYOR LINE Impressions 07/21/2020 2:30 PM BAKERY WORKER CONVEYOR LINE IMPRESSION: Normal. DICTATION LOCATION: [address] Narrative 07/21/2020 2:30 PM BAKERY WORKER CONVEYOR LINE AIR-CONTRAST UPPER GASTROINTESTINAL SERIES DATE: 07/21/2020 12:05 PM HISTORY: Preoperative evaluation for gastric sleeve surgery Fluoroscopy time one minute, 15 images FINDINGS: An air-contrast upper gastrointestinal series is performed revealing normal esophageal mucosal contour, caliber, and motility. The stomach and duodenum are normal without mass or peptic ulcer disease. Procedure Note Spike Barrios MD - 07/21/2020 AIR-CONTRAST UPPER GASTROINTESTINAL SERIES DATE: 07/21/2020 12:05 PM HISTORY: Preoperative evaluation for gastric sleeve surgery Fluoroscopy time one minute, 15 images FINDINGS: An air-contrast upper gastrointestinal series is performed revealing normal esophageal mucosal contour, caliber, and motility. The stomach and duodenum are normal without mass or peptic ulcer disease. IMPRESSION: Normal. DICTATION LOCATION: [address] Kelvin Woods MD DIAGNOSTIC IMAGING O RDERABLES documented in this encounter Visit Diagnoses Diagnosis Esophageal reflux documented in this encounter Administered Medications Inactive Administered Medications - up to 3 most recent administrations Medication Order MAR Action Action Date Dose Rate Site barium sulfate (E-Z-HD) 98 % oral suspension 135 mL 135 mL, Oral, INTRA-PROCEDURE ONCE, 1 dose, Starting on Tue07/21/20 at 1206, Until Tue07/21/20 at 1206, Routine Given 07/21/2020 12:06 PM BAKERY WORKER CONVEYOR LINE 135 mL barium sulfate (E-Z-PAQUE) 96 % (w/w) oral suspension 240 mL 240 mL, Oral, INTRA-PROCEDURE ONCE, 1 dose, Starting on Tue07/21/20 at 1205, Until Tue07/21/20 at 1206, Routine Given 07/21/2020 12:06 PM BAKERY WORKER CONVEYOR LINE 240 mL documented in this encounter
--- OUTSIDE RECORDS SUMMARY | 2024-05-22 05:52 | XMS_ITS | Encounter Summary ---
Author Organization [facility] Address [address] [place] [address] Phone Care Team Providers Care Lesson Instructor Name Role Phone Natasha Bates Primary Care Provider [phone] Encounter Details Date Type Department Care Team (Late st Contact Info) Description 03/17/2021 Telephone [facility] Surgery [address] [place], [place] [id number] Suzette Rogers MD [address] [facility] [address] [place], [place] [id number] Social History Tobacco Use Types Packs/Day Years Used Date Smoking Tobacco: Never Smokeless Tobacco: Never Alcohol Use Standard Drinks/Week Comments No 0 (1 standard drink = 0.6 oz pur e alcohol) AUDIT-C Answer Date Recorded Q1: How often do you have a drink containing alc ohol? 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 He is goingtoday to get the urine culture. * Telephone Encounter - Josesito Juanita - 03/17/2021 11:22 AM CDT Pt called stated that he is having extreme Burning when he urine. Pt would like a call back documented in this encounter Plan of Treatment Not on file documented as of this encounter Visit Diagnoses Not on filedocumented in this encounter Care Teams Lesson Instructor Relationship Specialty Start Date End Date Natasha Bates PA [address] [place] [address] PCP - General Physician Sr. Director 10/08/19 documented as of this encounter
--- OUTSIDE RECORDS SUMMARY | 2024-05-22 05:52 | XMS_ITS | Encounter Summary ---
Author Organization [facility] Address [address] [place] [address] Phone Care Team Providers Care Environmental Sustainability Manager Name Role Phone Natasha Bates Primary Care Provider [phone] Reason for Visit * Reason Onset Date Comments Successful Phone Call 06/03/2021 Encounter Details Date Type Department Care Team (Late st Contact Info) Description 06/03/2021 Documentation [facility] Urology [address] [facility] [address] [place] [address] Suzette Rogers MD [address] [facility] [address] [place] [address] Successful Phone Call Social History Tobacco Use Types Packs/Day Years [...] more drinks on one occasion? 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 Will admit to [facility] and monitor Cr serially, also get CT non-contrast to rule out distended bladder. KEN HANGER documented in this encounter Plan of Treatment Not on file documented as of this encounter Visit Diagnoses Not on filedocumented in this encounter Care Teams Environmental Sustainability Manager Relationship Specialty Start Date End Date Natasha Bates PA [address] [place] [address] PCP - General Physician Catalyst Operator Chief 10/08/19 documented as of this encounter
--- OUTSIDE RECORDS SUMMARY | 2024-05-22 05:52 | XMS_ITS | Encounter Summary ---
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 ??If any questions, please call Urology Dept [phone]. Thank ;you Testing performed by [facility] ([phone]) us Suzette Rogers MD LAB MICROBIOLOGY - GENERAL ORD ERABLES Final Result YO DANA [facility] [place] [address] documented in this encounter Visit Diagnoses Diagnosis LIZET (stress urinary incontinence), male documented in this encounter Care Teams Group Chief Operator Relationship Specialty Start Date End Date aNtasha Bates PA [facility] [place] [address] PCP - General Physician Commissioned Defence Force Officer 10/08/19 documented as of this encounter
--- OUTSIDE RECORDS SUMMARY | 2024-05-22 05:52 | XMS_ITS | Encounter Summary ---
Author Organization [facility] Healthcare Address [address] [place] [address] Care Team Providers Care Radar Mechanic Name Role Phone Natasha Bates Primary Care Provider [phone] Encounter Details Date Type Department Care Team (Late st Contact Info) Description 06/03/2021 4:39 PM SOLAR ENERGY SYSTEM INSTALLER - 06/04/2021 6:13 PM SOLAR ENERGY SYSTEM INSTALLER Hospital Encounter [facility] [address] [place] [id number] Suzette Rogers MD [address] [facility] [address] [place] [address] Male stress incontinence (Primary Dx) Discharge Disposition: Discharge to home or self care Social History Tobacco Use Types Packs/Day Years [...] week 06/05/2021 How often do you attend [facility] or congregation services? More than 4 times per year 06/05/2021 Do you belong to any clubs o r organizations such as oriental orthodox groups, unions, fraternal or athletic groups, [...] on file Legal Sex 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 SOLAR ENERGY SYSTEM INSTALLER Gender Identity Not on file Sexual Orientation Not on file documented as of this encounter Last Filed Vital Signs Vital Sign Reading Time Taken Comments Blood Pressure 114/63 06/04/2021 3:18 PM SOLAR ENERGY SYSTEM INSTALLER Pulse 58 06/04/2021 3:18 PM SOLAR ENERGY SYSTEM INSTALLER Temperature 36.8 ??C (98.2 ??F) 06/04/2021 3:18 PM CS T Respiratory Rate 18 06/04/2021 3:18 PM SOLAR ENERGY SYSTEM INSTALLER Oxygen Saturation 96% 06/04/2021 3:18 PM SOLAR ENERGY SYSTEM INSTALLER Inhaled Oxygen Concentration - - Weight - - Height - - Body Mass Index - - documented in this encounter Discharge Diagnoses Diagnosis Acute kidney failure, unspecified (HCC) - ACUTE KIDNEY FAILURE, UNSPECIFIED Acute kidney failure, unspecified COVID-19 - COVID-19 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 chronic kidney disease, or unspecified chronic kidney disease (HCC) - HYPERTENSIVE HEART AND CHRONIC KIDNEY DISEASE WITH HEART FAILURE AND STAGE 1 THROUGH STAGE 4 CHRONIC Chronic kidney disease, stage 3 unspecified (HCC) - CHRONIC KIDNEY DISEASE, STAGE 3 UNSPECIFIED Heart failure, unspecified (CMS/HCC) (HCC) - HEART FAILURE, UNSPECIFIED Heart failure, unspecified Hyperkalemia - HYPERKALEMIA Hyperpotassemia Scrotal pain - SCROTAL PAIN Unspecified disorder of male genital organs Other specified postprocedural states - OTHER SPECIFIED POSTPROCEDURAL STATES Pure hypercholesterolemia, unspecified - PURE HYPERCHOLESTEROLEMIA, UNSPECIFIED Obstructive sleep apnea (adult) (pediatric) - OBSTRUCTIVE SLEEP APNEA (ADULT) (PEDIATRIC) Hyperlipidemia, unspecified - HYPERLIPIDEMIA, UNSPECIFIED Bariatric surgery status - BARIATRIC SURGERY STATUS Other intermodal dispatcher (current) drug therapy - OTHER FRICTION PAINT MACHINE TENDER (CURRENT) DRUG THERAPY residential (current) use of non-steroidal anti-inflammatories (nsaid) - FRICTION PAINT MACHINE TENDER (CURRENT) USE OF NON-STEROIDAL ANTI-INFLAMMATORIES (NSAID) documented in this encounter Discharge Summaries * Piyush Gómez MD - 06/04/2021 3:59 PM CST Inpatient Discharge Summary BRIEF OVERVIEW Admitting Provider: Suzette Rogers MD Discharge Provider: Suzette Rogers MD Primary Care Physician at Discharge: Natasha Bates PA [phone] Admission Date: 06/03/2021 Discharge Date: 06/04/2021 Admission Location: [facility] Hospital Problems/Diagnoses: Active Problems: No Active Problems: There are no active problems currently on the Problem List. Please update the Problem List and refresh. Resolved Problems: No resolved hospital problems. 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 The patient was in his usual state of health when he noticed decreasing urine output due to decreased pad usage. He presented to Dr. Rogers's clinic for a scheduled postoperative appointment and was found to have no erosion of AUS via cystoscopy, 0 volume on bladder scan, and increased Cr from 1.3 baseline to 1.8. Patient was then instructed to present to [facility] for evaluation to rule out retention and monitor ERIC. Labs were also notable for a potassium of 5.4. Patient notes decreased appetite but continued intake of64 ounces of fluid per day and a subjective feeling of being dry/thirsty. He has not noted hematuria, hematochezia, or changes in bowel movements. He has not noticed pus or drainage from his surgical incisions. He is having increased tenderness and swelling in the scrotum and perineum that has beenstable since the surgery. Hospital Course: Howie Delaney was admitted to the urology floor. Labs evaluating his renal function and imaging studies evaluating his anatomy were performed. He was found to be COVID positive but asymptomatic and creatinine was elevated likely due to an intrinsic kidney etiology. Nephrology was consulted and the team recommended follow up with his accounting instructor as an outpatient within 1-2 weeks with a BMP in 1 week. The patient will follow up in clinic in 2 weeks for follow up of his AUS that was placed during his prior hospitalization. Strict return precautions were provided and good understanding was confirmed. Active Issues Requiring Follow-up: Nephrology and Urology follow up Test Results Pending at Discharge: Pending Labs Order Current Status Protein / creatinine ratio, urine, random Collected (06/04/21 1403) Urinalysis reflex to microscopic Collected (06/04/21 1403) Pertinent Test Results: Collected: 06/03/211956 Result status: Final Resulting lab: [facility] Value: Detected??Abnormal?? Comment: Interpretive Data Synonyms for this test include: PCR and NAAT . ??Testing performed by the [facility]. The Novel Coronavirus Assay (COVID-19) Real Time RT-PCR assay is for in vitro diagnostic use under FDA emergency use authorization only. A negative RT-PCR result does not preclude infection with COVID-19 and should not be used as the sole basis for treatment or other patient management decisions. ??Additional sample types have been validated according to CLIA regulations. ?? Current Interpretive Data was last revised on June 26, 2020. *Additional information available - comment, narrative ??Contains abnormal data??COVID-19 Coronavirus RNA Nasopharyngeal Order: [id number] Collected 06/03/2021 19:57 ?? Status: Final result ?? Visible to patient: Yes (not seen) ?? Specimen Information: Nasopharyngeal ?? 0 Result Notes Component COVID-19 RNA Detected??Abnormal?? Comment: Interpretive Data Synonyms for this test include: PCR and NAAT . ??Testing performed by the [facility]. The Novel Coronavirus Assay (COVID-19) Real Time RT-PCR assay is for in vitro diagnostic use under FDA emergency use authorization only. A negative RT-PCR result does not preclude infection with COVID-19 and should not be used as the sole basis for treatment or other patient management decisions. ??Additional sample types have been validated according to [employer] regulations. ?? Current Interpretive Data was last revised on June 26, 2020. First COVID-19 test? No Employeed in healthcare? No Group care resident? Unknown Hospitalized? Yes Is patient in ICU? No Symptomatic as defined by CDC? No CT Abdomen Pelvis WO Contrast Status: Final result Study Result Narrative & Impression EXAMINATION: Computed tomography of the abdomen and pelvis without intravenous contrast ?? HISTORY: Artificial sphincter placement for urinary incontinence on 05/27/2021, now with acute renal injury, and decreased urinary output ?? TECHNIQUE: Transaxial computed tomographic images of the abdomen and pelvis were obtained without intravenous contrast according to the standard protocol . ?? COMPARISON: CT 01/21/2021 ?? FINDINGS: Left basilar atelectasis. ?? Liver has a normal noncontrast appearance. Gallbladder is normal. No intrahepatic or extrahepatic biliary ductal dilatation. Spleen is normal. Pancreas is unremarkable. Patient is status post partial gastrectomy. ?? There is unchanged small precaval lymph node (table position 621.5) ?? Both adrenals are normal. No hydronephrosis. Both kidneys are similar in morphology since prior examination. ?? There is unchanged abran mesentery with small mesenteric lymph nodes in keeping with prior panniculitis. ?? There are scattered diverticulosis. No diverticulitis. The sigmoid colon is redundant. There is no focal bowel wall thickening. No evidence of small bowel obstruction. There are small bowel loops that is lateral to the descending colon, best appreciated on the coronal views however this is unchanged. ?? There is submucosal fatty deposition of the urinary bladder, which is unchanged. Minimal perivesicular stranding is not significantly changed. There has been interval revision of a left urethral sphincter. There is stranding and gas along the tract of the catheter that connects to to the urethral sphincter from the reservoir. The perineum is not completely included in the [id number]. There appears to be mild skin thickening in the peritoneum without well-defined fluid collection. Multiple prominent but normal morphologic bilateral inguinal lymph nodes are present and are most certainly reactive. ?? On bone windows, there are multilevel degenerative disc disease. ?? IMPRESSION: ?? 1. Interval exchange of the artificial urethral sphincter with fluid, stranding and small amount of gas tracking along the catheter tubing. ?? 2. Mild skin thickening in the peritoneum, not completely included in the [id number], correlate with physical exam. ?? Dictated by: Danna Hamlin M.D. ?? The radiology attending physician has personally reviewed this study, and had reviewed and/or edited this written report and agrees with it. ?? Electronically signed by: Temo Lin M.D. Urine Creatinine 44.1 Urine Sodium 92 Serum Sodium 140 Serum creatinine 1.92 Discharge Details Physical Exam at Discharge: Discharge Condition: good Pulse: 58 Resp: 18 BP: 114/63 Temp: 36.8 ??C (98.2 ??F) Weight: Pertinent Exam Findings at Discharge: Constitutional: no acute distress Skin/Integumentary: no bruising or rashes on face or hands, scalp atraumatic Eyes: Extraocular muscles intact, mucous membranes moist, sclera white, conjunctiva pink Ears, Nose, Mouth/Throat: neck normal range of motion and trachea midline, no bleeding gums or nose Respiratory: No coarse breath sounds or wheezing, breathing symmetric Gastrointestinal: soft, non-tender, non-distended, no hernia, no masses Flank: no CVA tenderness bilaterally Psychiatric: Mood and affect appropriate, alert and oriented to person, place and time. Neurologic: Normal gait, speech clear, tongue midline, normal hand strength : Scrotum is swollen, exquisitely tender to palpation, and edematous. Incisions are clean dry andintact without drainage. Discharge Disposition: To home with self care Code Status at Discharge: Full Discharge Instructions: See AVS Discharge Medications: Current Medications TAKE these medications acetaminophen 500 mg tablet Take 2 tablets (1,000 mg total) by mouth every 6 (six) hours as needed for pain Commonly known as: TYLENOL allopurinoL 100 mg tablet Take 100 mg by mouth 2 (two) times a day For: treatment to prevent acute gout attack Commonly known as: ZYLOPRIM atorvastatin 40 mg tablet Take 40 mg by mouth nightly For: excessive fat in the blood Commonly known as: LIPITOR CALCIUM ORAL Take 1 capsule by mouth every morning For: supplement FLUoxetine 20 mg capsule Take 20 mg by mouth nightly For: depression Commonly known as: PROzac furosemide 20 mg tablet Take 20 mg by mouth daily as needed For: visible water retention Commonly known as: LASIX gabapentin 600 mg tablet Take 600-1,200 mg by mouth 2 (two) times a day as needed For: neuropathic pain Commonly known as: NEURONTIN ibuprofen 600 mg tablet Take 1 tablet (600 mg total) by mouth every 6 (six) hours as needed for pain for up to 20 doses Commonly known as: ADVIL,MOTRIN loratadine 10 mg tablet Take 10 mg by mouth daily as needed For: inflammation of the nose due to an allergy Commonly known as: CLARITIN multivitamin tablet Take 1 tablet by mouth every morning For: vitamin deficiency * oxyCODONE 5 mg immediate release tablet Take 1 tablet (5 mg total) by mouth every 6 (six) hours as needed for pain for up to 10 doses For: pain Commonly known as: ROXICODONE * oxyCODONE 5 mg immediate release tablet Take 1 tablet (5 mg total) by mouth every 6 (six) hours as needed for pain For: pain Commonly known as: ROXICODONE UNABLE TO FIND Administer into each nostril nightly 3 L Home oxygen with CPAP Veltassa packet Take 8.4 g by mouth nightly For: high levels of potassium in the blood Generic drug: patiromer calcium sorbitex VITAMIN B-12 ORAL Take 1 capsule by mouth every morning For: supplement * This list has 2 medication(s) that are the same as other medications prescribed for you. Read the directions carefully, and ask your doctor or other care provider to review them with you. Outpatient Follow-Up: Future Appointments Date Time Provider Department Center 06/18/2021 11:20 AM Suzette Rogers MD [facility] 07/07/2021 11:00 AM Suzette Rogers MD [facility] Cosigned by Suzette Rogers MD at 06/15/2021 1:44 PM SOLAR ENERGY SYSTEM INSTALLER R ENERGY SYSTEM INSTALLER R ENERGY SYSTEM INSTALLER documented in this encounter Discharge Instructions * Discharge Instructions* Piyush Gómez MD - 06/04/2021 3:10 PM SOLAR ENERGY SYSTEM INSTALLER DISCHARGE INSTRUCTIONS FOR URINARY RETENTION/ERIC Call your doctor if: * You have a fever higher than 101.5 F (38.6 C). * You have nausea, vomiting or diarrhea. * Your pain medicine is not helping your pain. * You feel dizzy, very tired or like you may faint. (It is normal to feel somewhat tired for 1-2 weeks after surgery.) * You have large blood clots in your urine. Call your surgeon???s office during regular business hours if you have questions or concerns. If you need to speak to someone after regular hours or on weekends or holidays, call . Diet: You may resume your usual home diet. Activity: * Remember heavy strenuous lifting may cause some blood in your urine, this should stop within 24 hours. Call if you see clots in your urine or are unable to urinate * Do NOT drive or operate machinery if you are taking narcotic pain medicine. * You may take showers. * Take short frequent walks every day. Climbing stairs is OK. Pain Control You should expect to have some pain after your procedure. This is a normal part of the recovery process. The pain is more tolerable for some patients and less tolerable for others. You should have been prescribed a medication for stent pain/bladder spasm, if you did not receive this prescription and are having stent pain, please call the urology office and they will be able to call this in for you. When you are in pain: - Start by applying ice packs or heating pads and using over the counter medications such as acetaminophen (Tylenol) or ibuprofen (Advil or Motrin) unless otherwise specified by your doctor. - If your pain is still uncontrolled, you may take a stronger, prescription medication that contains opioids. Take only as much of this medication as you need. - As you recover, your pain will decrease and you will need less pain medication. You should only take pain medication if you are in pain. - If you are no longer taking any of your opioid medication and have leftover pills, dispose of them by placing them in a plastic bag, adding dish soap, and throwing them in the trash. FOLLOW UP: Please attend your follow up with Suzette Mcdaniel MD on 06/18/2021.Please call with any questions Please follow up with your accounting instructor at [facility] within the next two weeks Active issues requiring follow up: AUS evaluation Test results pending at discharge: none R ENERGY SYSTEM INSTALLER documented in this encounter Medications at Time of Discharge acetaminophen (TYLENOL) 500 mg tablet Take 2 tablets (1,000 mg total) by mouth every 6 (six) hours as needed for pain 40 tablet 01/30/2021 allopurinoL (ZYLOPRIM) 100 mg tabletIndication s:prevention of acute gout attack Take 100 mg by mouth 2 (two) times a day atorvastatin (LIPITOR) 40 mg tabletIndication s:hyperlipidemia Take 40 mg by mouth nightly CALCIUM ORALIndications: supplement Take 1 capsule by mouth every morning cyanocobalamin, vitamin B-12, (VITAMIN B-12 ORAL)Indications :supplement Take 1 capsule by mouth every morning FLUoxetine (PROzac) 20 mg capsuleIndicatio ns:depression Take 20 mg by mouth nightly 04/25/2021 furosemide (LASIX) 20 mg tabletIndication s:Edema Take 20 mg by mouth daily as needed gabapentin (NEURONTIN) 600 mg tabletIndication s:Neuropathic Pain Take 600-1,200 mg by mouth 2 (two) times a day as needed ibuprofen (ADVIL,MOTRIN) 600 mg tablet Take 1 tablet (600 mg total) by mouth every 6 (six) hours as needed for pain for up to 20 doses 20 tablet 01/30/2021 loratadine (CLARITIN) 10 mg tabletIndication s:Allergic Rhinitis Take 10 mg by mouth daily as needed 04/16/2021 multivitamin tabletIndication s:Vitamin Deficiency Take 1 tablet by mouth every morning oxyCODONE (ROXICODONE) 5 mg immediate release tabletIndication s:Pain Take 1 tablet (5 mg total) by mouth every 6 (six) hours as needed for pain for up to 10 doses 10 tablet 01/30/2021 oxyCODONE (ROXICODONE) 5 mg immediate release tabletIndication s:Pain Take 1 tablet (5 mg total) by mouth every 6 (six) hours as needed for pain 10 tablet 05/28/2021 UNABLE TO FIND Administer into each nostril nightly 3 L Home oxygen with CPAP Veltassa packetIndication s:hyperkalemia Take 8.4 g by mouth nightly 04/06/2021 documented as of this encounter Discharge Disposition Disposition Code Departure Means Destination Discharge to home or self care documented in this encounter Progress Notes * Piyush Gómez MD - 06/04/2021 6:05 AM CST Urology Daily Progress SUBJECTIVE ID/CC: Patient is a 55 y.o. male with history of recent AUS placement and chief complaint of poor UOP. Interval History NAEON, VSS Tolerating diet without nausea or vomiting Labs notable for COVID + K 4.9 WBC 11.7(11.7 CT Pelvis - WNL but bladder not decompressed FENa 2.9% Current Facility-Administered Medications: ??? acetaminophen (TYLENOL) tablet 650 mg, 650 mg, oral, Q6H RUTHANN, Piyush Gómez MD, 650 mg at 06/04/21 0513 ??? allopurinoL (ZYLOPRIM) tablet 100 mg, 100 mg, oral, BID, Piyush Gómez MD, 100 mg at 06/03/212007 ??? atorvastatin (LIPITOR) tablet 40 mg, 40 mg, oral, Nightly, Piyush Gómez MD, 40 mg at 06/03/212006 ??? enoxaparin (LOVENOX) syringe 40 mg, 40 mg, subcutaneous, Daily-2100, Piyush Gómez MD, 40 mg at 06/03/212004 ??? FLUoxetine (PROzac) capsule 20 mg, 20 mg, oral, Nightly, Piyush Gómez MD, 20 mg at 06/03/212006 ??? gabapentin (NEURONTIN) tablet 600 mg, 600 mg, oral, BID, Piyush Gómez MD, 600 mg at 06/03/219 ??? Lactated Ringer's (LR) infusion, 75 mL/hr, intravenous, Continuous, Piyush Gómez MD, Last Rate: 75 mL/hr at 06/04/2130, 75 mL/hr at 06/04/2130 ??? oxyCODONE (ROXICODONE) tablet 5 mg, 5 mg, oral, Q4H PRN, Piyush Gómez MD ??? sodium chloride 0.9% flush 0.5-20 mL, 0.5-20 mL, intra-catheter, Q8H RUTHANN, Piyush Gómez MD, 10 mL at 06/04/2131 ??? sodium chloride 0.9% flush 0.5-20 mL, 0.5-20 mL, intra-catheter, PRN, Piyush Gómez MD ??? sulfamethoxazole-trimethoprim (BACTRIM DS) 800-160 mg per tablet 1 tablet, 1 tablet, oral, BID,Piyush Gómez MD, 1 tablet at 06/03/212006 OBJECTIVE Vitals: 24hr Min/Max: Temp Min: 36.2 ??C (97.1 ??F) Max: 36.3 ??C (97.4 ??F) Pulse Min: 51 Max: 59 BP Min: 108/56 Max: 111/64 Resp Min: 16 Max: 17 SpO2 Min: 96 % Max: 100 % Most Recent : Vitals: 06/04/21 0405 BP: 111/64 Pulse: 51 Resp: 17 Temp: 36.2 ??C (97.1 ??F) SpO2: 100% No intake/output data recorded. I/O this shift: In: 660 [P.O.:660] Out: 2175 [Urine:2175] Physical Exam: GEN: Pleasant man sitting comfortably in bed. No acute distress. HEENT: Sclera anicteric, EOMI. Moist mucous membranes. RESP: Normal effort on room air CV: Normal rate, warm & well-perfused ABD: Soft, mildly distended, appropriately tender. Incisions c/d/i without erythema or drainage EXT: Moving all extremities, no gross deformities NEURO: Alert & oriented, speech fluent and appropriate, smile symmetric : Scrotum is swollen, decreased tenderness to palpation, and edematous. Incisions are clean dry and intact without drainage. Lab/Radiology/Diagnostic Review: Laboratory review: Lab results in the last 24 hours: Recent Results (from the past 24 hour(s)) CBC without differential Collection Time: 06/03/21 7:12 PM Result Value Ref Range WBC 9.9 3.8 - 9.9 K/cumm Hgb 11.7 (L) 13.0 - 17.5 g/dL Hct 36.2 (L) 38.9 - 50.3 % Plt 178 150 - 400 K/cumm MPV 13.4 (H) 9.1 - 12.3 fL RBC 3.71 (L) 4.30 - 5.80 M/cumm MCV 97.6 (H) 81.3 - 96.4 fL MCH 31.5 27.1 - 33.3 pg MCHC 32.3 32.3 - 35.7 g/dL RDW CV 14.8 11.1 - 14.9 % RDW SD 52.9 (H) 35.7 - 48.1 fL NRBC abs 0.00 0.00 - 0.01 K/cumm Basic metabolic panel Collection Time: 06/03/21 7:12 PM Result Value Ref Range Sodium 140 135 - 145 mmol/L Potassium, pl 5.8 (H) 3.3 - 4.9 mmol/L Chloride 105 97 - 110 mmol/L CO2 28 22 - 32 mmol/L Anion gap 7 2 - 15 mmol/L BUN 17 8 - 25 mg/dL Creatinine 1.92 (H) 0.80 - 1.30 mg/dL Glucose 72 70 - 199 mg/dL Calcium 9.0 8.5 - 10.3 mg/dL eGFR Collection Time: 06/03/21 7:12 PM Result Value Ref Range eGFR 40 (L) 90 - 130 mL/min/1.73 m2 COVID-19 Coronavirus RNA Nasopharyngeal Collection Time: 06/03/21 7:57 PM Specimen: Nasopharyngeal Result Value Ref Range COVID-19 RNA Detected (A) First COVID-19 test? No Employeed in healthcare? No Group care resident? Unknown Hospitalized? Yes Is patient in ICU? No Symptomatic as defined by CDC? No Sodium, urine, random Collection Time: 06/03/21 7:57 PM Result Value Ref Range Sodium, ur 92 mmol/L Creatinine, urine, random Collection Time: 06/03/21 7:57 PM Result Value Ref Range Creatinine Ur 44.1 mg/dL Urea nitrogen, urine, random Collection Time: 06/03/21 7:57 PM Result Value Ref Range Urea nitrogen, ur 192 mg/dL Potassium, whole blood Collection Time: 06/04/21 12:30 AM Result Value Ref Range Potassium, bld 4.9 3.3 - 4.9 mmol/L ASSESSMENT & PLAN Plan -Consult nephrology for intrinsic ERIC in setting of COVID -pain control -regular diet -OOB, ambulate -DVT ppx: lovenox Piyush Gómez MD Resident Physician, Urology 06/04/2021 Cosigned by Suzette Rogers MD at 06/15/2021 1:47 PM SOLAR ENERGY SYSTEM INSTALLER R ENERGY SYSTEM INSTALLER R ENERGY SYSTEM INSTALLER Associated attestation - Suzette Rogers MD - 06/15/2021 1:47 PM SOLAR ENERGY SYSTEM INSTALLER I have seen and examined the patient on 06/04/2021. I agree with the findings and plan of care as documented in the resident's/fellow's note.. * Kianna Chandra RN - 06/03/2021 6:28 PM CST Patient admitted to unit [facility]00 from home via personal vehicle. Covering service notified. Patient presents with hematuria and incontinence. Orders reviewed & will continue to monitor. Patient and/or instruments sales representative oriented to environment, equipment, and informed of the following as found in admission booklet: patient rights & responsibilities, visitor policy, hand and respiratory hygiene practice. Other education includes safety precautions and pain control interventions. Patient verbalized understanding of education. R ENERGY SYSTEM INSTALLER documented in this encounter H&P Notes * Piyush Gómez MD - 06/03/2021 3:36 PM CST Surgery History and Physical Subjective Subjective Patient is a 55 y.o. male with history of recent AUS placement and chief complaint of poor UOP. 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 The patient was in his usual state of health when he noticed decreasing urine output due to decreased pad usage. He presented to Dr. Rogers's clinic for a scheduled postoperative appointment and was found to have no erosion of AUS via cystoscopy, 0 volume on bladder scan, and increased Cr from 1.3 baseline to 1.8. Patient was then instructed to present to [facility] for evaluation to rule out retention and monitor ERIC. Labs were also notable for a potassium of 5.4. Patient notes decreased appetite but continued intake of64 ounces of fluid per day and a subjective feeling of being dry/thirsty. He has not noted hematuria, hematochezia, or changes in bowel movements. He has not noticed pus or drainage from his surgical incisions. He is having increased tenderness and swelling in the scrotum and perineum that has beenstable since the surgery. Past Medical History: Diagnosis Date ??? Anemia ??? Angiospasm (CMS/HCC) (HCC) ??? Bladder spasms ??? CHF (congestive heart failure) (CMS/HCC) (HCC) ??? CKD (chronic kidney disease), stage III (HCC) ??? Delayed emergence from general anesthesia denies any unplanned admission ??? Fatty liver ??? Hematuria ??? History of blood transfusion ??? Hypercholesterolemia ??? Hypertension ??? Pulmonary hypertension (CMS/HCC) (HCC) ??? Sleep apnea CPAP with 3 L oxygen Past Surgical History: Procedure Laterality Date ??? BLADDER SURGERY 2018 insertion of artificial sphincter ??? COLONOSCOPY 2013 ??? ESOPHAGOGASTRODUODENOSCOPY ? OTHER SURGICAL HISTORY 2017 x2 surgeries related to hematuria ??? SLEEVE GASTROPLASTY 08/04/2020 gastric sleeve ??? URINARY SPHINCTER REVISION 01/30/2021 removal No medications prior to admission. No Known Allergies Social History Tobacco Use ??? Smoking status: Never Smoker ??? Smokeless tobacco: Never Used Substance Use Topics ??? Alcohol use: No No family history on file. Review of Systems A complete review of systems has been performed and was negative except for that mentioned in the HPI. Objective Vitals: There were no vitals filed for this visit. Ht Readings from Last 1 Encounters: 05/27/21 182.9 cm (6') Wt Readings from Last 1 Encounters: 05/27/21 127.5 kg (281 lb) Physical Exam: Constitutional: no acute distress Skin/Integumentary: no bruising or rashes on face or hands, scalp atraumatic Eyes: Extraocular muscles intact, mucous membranes moist, sclera white, conjunctiva pink Ears, Nose, Mouth/Throat: neck normal range of motion and trachea midline, no bleeding gums or nose Respiratory: No coarse breath sounds or wheezing, breathing symmetric Gastrointestinal: soft, non-tender, non-distended, no hernia, no masses Flank: no CVA tenderness bilaterally Psychiatric: Mood and affect appropriate, alert and oriented to person, place and time. Neurologic: Normal gait, speech clear, tongue midline, normal hand strength : Scrotum is swollen, exquisitely tender to palpation, and edematous. Incisions are clean dry andintact without drainage. Lab/Radiology/Diagnostic Review: Laboratory review: Lab results in the last 24 hours: Bmp 06/02/2021: reviewed and notable for hyperkalemia to 5.4 and ERIC to 1.80 from 1.3 Assessment Howie Delaney is a 55 y.o. male h/o AUS reimplantation 05/27 presenting with poor UOP and ERIC Plan -mIVF -Bladder scan -Urine lytes, CBC, BMP -Non con pelvis ct - SCDs, Lovenox for DVT prophylaxis Cosigned by Suzette Rogers MD at 06/15/2021 1:47 PM SOLAR ENERGY SYSTEM INSTALLER R ENERGY SYSTEM INSTALLER R ENERGY SYSTEM INSTALLER Associated attestation - Suzette Rogers MD - 06/15/2021 1:47 PM SOLAR ENERGY SYSTEM INSTALLER I have seen and examined the patient on 06/03/2021. I agree with the findings and plan of care as documented in the resident's/fellow's note.. documented in this encounter Consult Notes * Wilner Briones - 06/04/2021 10:00 AM CSTAssociated Order(s): IP CONSULT TO NEPHROLOGY NEPHROLOGY INITIAL CONSULTATION NOTE REASON FOR CONSULT: ERIC (FeNA 2.9%) in setting of COVID+, any inpatient workup/recs or outpatient? REQUESTING PROVIDER: Suzette Rogers MD CHIEF COMPLAINT: HPI: Patient is 55 y.o. year old, male with a history of Fatty Liver Dz, CKD Stage III, History of artificial sphincter s/p removal January 2021 with replacement on May 27, 2021 who presented [facility] with poor urine output over several days. Renal consultation is requested for the management of ERIC. Patient initially at outpatient urology office for post-op appointment, found to have erosion of his artificial urinary sphincter on cystoscopy with worsened Cr from baseline, additionally hyperkalemia 5.4. Was sent to the hospital. Pertinent workup on arrival showed K 5.8 (4.9 on whole blood), Cr 1.8 -> 1.92, Covid-19 positive. Urine lytes obtained on 06/03 with FeNa 2.9%, FeUrea 49%. No formal UA, but POC showing trace protein, trace blood. UOP charted on Jun [address] A/P showing no hydronephrosis, submucosal fatty deposition in urinary bladder unchanged from previous. Renal History: Baseline Cr appears to be about 1-1.2 with eGFR around 60. Patient has been seen by nephrology in the past, typically follows with [facility] every 2-3 months. Patient denies any shortness of breath, chest pain, nausea or vomiting. Past Medical History: Diagnosis Date ??? Anemia ??? Angiospasm (CMS/HCC) (HCC) ??? Bladder spasms ??? CHF (congestive heart failure) (CMS/HCC) (HCC) ??? CKD (chronic kidney disease), stage III (HCC) ??? Delayed emergence from general anesthesia denies any unplanned admission ??? Fatty liver ??? Hematuria ??? History of blood transfusion ??? Hypercholesterolemia ??? Hypertension ??? Pulmonary hypertension (CMS/HCC) (HCC) ??? Sleep apnea CPAP with 3 L oxygen Past Surgical History: Procedure Laterality Date ??? BLADDER SURGERY 2018 insertion of artificial sphincter ??? COLONOSCOPY 2013 ??? ESOPHAGOGASTRODUODENOSCOPY ? OTHER SURGICAL HISTORY 2017 x2 surgeries related to hematuria ??? SLEEVE GASTROPLASTY 08/04/2020 gastric sleeve ??? URINARY SPHINCTER REVISION 01/30/2021 removal Medications Prior to Admission Medication Sig Dispense Refill Last Dose ??? acetaminophen (TYLENOL) 500 mg tablet Take 2 tablets (1,000 mg total) by mouth every 6 (six) hours as needed for pain 40 tablet 0 ??? allopurinoL (ZYLOPRIM) 100 mg tablet Take 100 mg by mouth 2 (two) times a day ??? atorvastatin (LIPITOR) 40 mg tablet Take 40 mg by mouth nightly ??? CALCIUM ORAL Take 1 capsule by mouth every morning ??? cyanocobalamin, vitamin B-12, (VITAMIN B-12 ORAL) Take 1 capsule by mouth every morning ??? FLUoxetine (PROzac) 20 mg capsule Take 20 mg by mouth nightly ??? furosemide (LASIX) 20 mg tablet Take 20 mg by mouth daily as needed ??? gabapentin (NEURONTIN) 600 mg tablet Take 600-1,200 mg by mouth 2 (two) times a day as needed ??? ibuprofen (ADVIL,MOTRIN) 600 mg tablet Take 1 tablet (600 mg total) by mouth every 6 (six) hours as needed for pain for up to 20 doses (Patient not taking: Reported on 05/13/2021) 20 tablet 0 ??? loratadine (CLARITIN) 10 mg tablet Take 10 mg by mouth daily as needed ??? multivitamin tablet Take 1 tablet by mouth every morning ??? oxybutynin (DITROPAN) 5 mg tablet Take 1 tablet (5 mg total) by mouth 3 (three) times a day as needed (bladder spasms) for up to 20 doses (Patient not taking: Reported on 05/13/2021) 20 tablet 0 ??? oxyCODONE (ROXICODONE) 5 mg immediate release tablet Take 1 tablet (5 mg total) by mouth every 6 (six) hours as needed for pain for up to 10 doses (Patient not taking: Reported on 05/13/2021) 10 tablet 0 ??? oxyCODONE (ROXICODONE) 5 mg immediate release tablet Take 1 tablet (5 mg total) by mouth every 6 (six) hours as needed for pain 10 tablet 0 ??? phenazopyridine (PYRIDIUM) 100 mg tablet Take 1 tablet (100 mg total) by mouth 2 (two) times a day as needed for urinary pain (Patient not taking: Reported on 05/13/2021) 6 tablet 0 ??? solifenacin (VESIcare) 10 mg tablet Take 1 tablet (10 mg total) by mouth daily (Patient not taking: Reported on 05/13/2021) 30 tablet 0 ??? sulfamethoxazole-trimethoprim (BACTRIM DS) 800-160 mg per tablet Take 1 tablet by mouth 2 (two)times a day for 7 days 14 tablet 0 ??? UNABLE TO FIND Administer into each nostril nightly 3 L Home oxygen with CPAP ??? Veltassa packet Take 8.4 g by mouth nightly acetaminophen, 650 mg, oral, Q6H RUTHANN allopurinoL, 100 mg, oral, BID atorvastatin, 40 mg, oral, Nightly enoxaparin, 40 mg, subcutaneous, Daily-2100 FLUoxetine, 20 mg, oral, Nightly gabapentin, 600 mg, oral, BID sodium chloride 0.9%, 0.5-20 mL, intra-catheter, Q8H RUTHANN sulfamethoxazole-trimethoprim, 1 tablet, oral, BID No Known Allergies Social History Socioeconomic History [...] Substance and Sexual Activity ??? Alcohol use: No ??? Drug use: Never ??? Sexual activity: Defer Other Topics Concern ??? Not on file Social History Narrative ??? Not on file Social Determinants of Health Financial Resource Strain: Not on file Food Insecurity: Not on file Transportation Needs: Not on file Physical Activity: Not on file Stress: Not on file Social Connections: Not on file Intimate Partner Violence: Not on file Housing Stability: Not on file No family history on file. FH OF KIDNEY DISEASE: Non contributory REVIEW OF SYSTEMS: As per HPI. All other systems are negative. PHYSICAL EXAM: Vitals: 24hr Min/Max: Temp Min: 36.2 ??C (97.1 ??F) Max: 36.3 ??C (97.4 ??F) Pulse Min: 51 Max: 59 BP Min: 108/56 Max: 118/79 Resp Min: 16 Max: 18 SpO2 Min: 96 % Max: 100 % Most Recent: BP 118/79 (BP Location: Right arm, Patient Position: Sitting) Pulse 59 Temp 36.3 ??C (97.3 ??F)(Oral) Resp 18 SpO2 99% I/O last 2 completed shifts: In: 660 [P.O.:660] Out: 2175 [Urine:2175] No intake/output data recorded. General Awake, alert, lying in bed HEENT: moist oral mucosa. No JVD, no cervical lymphadenopathy CV: heart sounds RRR, no murmurs, rub or gallop PULM: clear to auscultation, no rales. Abdomen: Soft, non-tender, BS present. MSK: no edema, symmetric LE SKIN: no rashes Neuro: AOx3, no focal motor deficits Psych: appropriate affect Dialysis Access Exam: None Lab/Radiology/Diagnostic Review: Laboratory review: Lab results in the last 24 hours: Recent Results (from the past 24 hour(s)) CBC without differential Collection Time: 06/03/21 7:12 PM Result Value Ref Range WBC 9.9 3.8 - 9.9 K/cumm Hgb 11.7 (L) 13.0 - 17.5 g/dL Hct 36.2 (L) 38.9 - 50.3 % Plt 178 150 - 400 K/cumm MPV 13.4 (H) 9.1 - 12.3 fL RBC 3.71 (L) 4.30 - 5.80 M/cumm MCV 97.6 (H) 81.3 - 96.4 fL MCH 31.5 27.1 - 33.3 pg MCHC 32.3 32.3 - 35.7 g/dL RDW CV 14.8 11.1 - 14.9 % RDW SD 52.9 (H) 35.7 - 48.1 fL NRBC abs 0.00 0.00 - 0.01 K/cumm Basic metabolic panel Collection Time: 06/03/21 7:12 PM Result Value Ref Range Sodium 140 135 - 145 mmol/L Potassium, pl 5.8 (H) 3.3 - 4.9 mmol/L Chloride 105 97 - 110 mmol/L CO2 28 22 - 32 mmol/L Anion gap 7 2 - 15 mmol/L BUN 17 8 - 25 mg/dL Creatinine 1.92 (H) 0.80 - 1.30 mg/dL Glucose 72 70 - 199 mg/dL Calcium 9.0 8.5 - 10.3 mg/dL eGFR Collection Time: 06/03/21 7:12 PM Result Value Ref Range eGFR 40 (L) 90 - 130 mL/min/1.73 m2 COVID-19 Coronavirus RNA Nasopharyngeal Collection Time: 06/03/21 7:57 PM Specimen: Nasopharyngeal Result Value Ref Range COVID-19 RNA Detected (A) First COVID-19 test? No Employeed in healthcare? No Group care resident? Unknown Hospitalized? Yes Is patient in ICU? No Symptomatic as defined by CDC? No Sodium, urine, random Collection Time: 06/03/21 7:57 PM Result Value Ref Range Sodium, ur 92 mmol/L Creatinine, urine, random Collection Time: 06/03/21 7:57 PM Result Value Ref Range Creatinine Ur 44.1 mg/dL Urea nitrogen, urine, random Collection Time: 06/03/21 7:57 PM Result Value Ref Range Urea nitrogen, ur 192 mg/dL Potassium, whole blood Collection Time: 06/04/21 12:30 AM Result Value Ref Range Potassium, bld 4.9 3.3 - 4.9 mmol/L ASSESSMENT AND PLAN Active Problems: No Active Problems: There are no active problems currently on the Problem List. Please update the Problem List and refresh. 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 -At this time suspect etiology due to poor PO intake with COVID over the past several days - patient noted decreased UOP after he stopped eating and drinking due to feeling Ill -Now patient is hydrated with improved intake, noted good UOP at this time -Cr baseline around 1.2-1.5, expect that this should improve -Ok from renal perspective to discharge at this time, as expectation is that he should recover given his current trajectory - recommend outpatient renal [facility] -Recommend outpatient BMP in around one week Hyperkalemia -In setting of ERIC -Would recommend temporizing measures > 5.2 -Can start lokelma 10g PRN for > 5.5, up to TID dosing Wilner Briones DO Nephrology Fellow Consult 1 Service Contact (phone): [phone] After hours and weekends: please page [phone] Cosigned by Leonardo Haney MD at 06/05/2021 11:21 AM SOLAR ENERGY SYSTEM INSTALLER R ENERGY SYSTEM INSTALLER R ENERGY SYSTEM INSTALLER Associated attestation - Leonardo Haney MD - 06/05/2021 11:21 AM SOLAR ENERGY SYSTEM INSTALLER I have seen and examined the patient on 06/04/2021. I agree with the findings and plan of care as documented in the resident's/fellow's note.. documented in this encounter Nursing Notes * Ashley Bonoe RN - 06/04/2021 6:13 PM CST Patient is discharged home, with VSS, personal belongings returned. IV removed. Discharge instructions provided. Transportation c/o family member. Ashley ESCALANTE R ENERGY SYSTEM INSTALLER * Sharmila Pace RN - 06/04/2021 3:18 AM CST Assessment of patient???s baseline is established at the beginning of the shift in flowsheets. Patient reassessed per order, unexpected findings and/or deviations from baseline are captured in flowsheets. Frequent safety checks and comfort rounds provided. Orders and/or nursing care completed as indicated. Patient monitored for response to interventions and treatments as documented in flowsheets.Education provided includes pain management and VS monitoring. Patient and/or instruments sales representative understands to call for medication and for assistance with ADLs. Will continue to monitor. R ENERGY SYSTEM INSTALLER documented in this encounter Plan of Treatment Not on file documented as of this encounter Procedures Procedure Name Priority Date/Time Associated Diagnosis Comments URINALYSIS AND REFLEX TO MICROSCOPIC Routine 06/04/2021 5:48 PM SOLAR ENERGY SYSTEM INSTALLER PROTEIN / CREATININE RATIO, URINE, RANDOM Routine 06/04/2021 5:48 PM SOLAR ENERGY SYSTEM INSTALLER URINALYSIS, MICROSCOPIC ONLY Routine 06/04/2021 5:48 PM SOLAR ENERGY SYSTEM INSTALLER POTASSIUM, WHOLE BLOOD Routine 06/04/2021 12:30 AM SOLAR ENERGY SYSTEM INSTALLER CT ABDOMEN PELVIS WO CONTRAST ED Urgent/IP Urgent 06/03/2021 8:45 PM SOLAR ENERGY SYSTEM INSTALLER COVID-19 CORONAVIRUS RNA Routine 06/03/2021 7:57 PM SOLAR ENERGY SYSTEM INSTALLER UREA NITROGEN, URINE, RANDOM Routine 06/03/2021 7:57 PM SOLAR ENERGY SYSTEM INSTALLER SODIUM, URINE, RANDOM Routine 06/03/2021 7:57 PM SOLAR ENERGY SYSTEM INSTALLER CREATININE, URINE, RANDOM Routine 06/03/2021 7:57 PM SOLAR ENERGY SYSTEM INSTALLER EGFR STAT 06/03/2021 7:12 PM SOLAR ENERGY SYSTEM INSTALLER CBC WITHOUT DIFFERENTIAL STAT 06/03/2021 7:12 PM SOLAR ENERGY SYSTEM INSTALLER BASIC METABOLIC PANEL STAT 06/03/2021 7:12 PM SOLAR ENERGY SYSTEM INSTALLER documented in this encounter Results * Urinalysis, microscopic only (06/04/2021 5:48 PM SOLAR ENERGY SYSTEM INSTALLER) WBC, ur 0-5 0 - 5 /HPF [facility] RBC, ur 0-2 0 - 2 /HPF [facility] Epithelial cells, squamous, ur 1-5 0 - 5 /HPF [facility] Urine 06/04/2021 5:48 PM SOLAR ENERGY SYSTEM INSTALLER 06/04/2021 5:57 PM SOLAR ENERGY SYSTEM INSTALLER Suzette Rogers MD LAB URINE ORDERABLES Final Res ult Performing Organization Address [facility] de Phone Number [facility] [place] [address] * (ABNORMAL) Protein / creatinine ratio, urine, random (06/04/2021 5:48 PM SOLAR ENERGY SYSTEM INSTALLER) Protein, ur, quant 45.6 mg/dL [facility] Comment: Interpretive Data No reference range established. Current interpretive data was last revised 2018. Creatinine Ur 62.2 mg/dL [facility] Comment: Interpretive Data No reference range established. Current interpretive data was last revised 2018. Protein/creatinin e ratio 733.1(H) 0.0 - 180.0 mg/g CR [facility] Urine 06/04/2021 5:48 PM SOLAR ENERGY SYSTEM INSTALLER 06/04/2021 5:57 PM SOLAR ENERGY SYSTEM INSTALLER Suzette Rogers MD LAB URINE ORDERABLES Final Res ult Performing Organization Address [facility] Co de Phone Number [facility] [employer] [place] [address] * (ABNORMAL) Urinalysis reflex to microscopic (06/04/2021 5:48 PM SOLAR ENERGY SYSTEM INSTALLER) Color, ur Straw Yellow [facility] Clarity, ur Clear Clear [facility] Specific gravity, ur 1.013 1.003 - 1.030 [facility] pH, urine 7 [facility] Protein, ur ql 1+(A) Negative [facility] Glucose, ur ql Negative Negative [facility] Ketones, ur Negative Negative [facility] Bilirubin, ur Negative Negative [facility] Blood, ur Negative Negative [facility] Urobilinogen, ur 2.0(A) <2.0 mg/dL [facility] Nitrite, ur Negative Negative [facility] Leukocyte esterase, ur Negative Negative [facility] UA reflex comment Reflex to microscopic UA will be performed. [facility] Urine 06/04/2021 5:48 PM SOLAR ENERGY SYSTEM INSTALLER 06/04/2021 5:57 PM SOLAR ENERGY SYSTEM INSTALLER Narrative [facility] - 06/04/2021 6:04 PM SOLAR ENERGY SYSTEM INSTALLER ?? Urine pH is affected by diet, medications, systemic acid-base disturbances, and renal tubular function. ??pH may affect urinary stone formation. ??For example, urine pH below 6.0 may help reduce the tendency for calcium phosphate stones and pH greater than 6.0 may reduce the tendency for uric acid stone formation. Source: [employer]. Last revised 06-02-2017 Suzette Rogers MD LAB URINE ORDERABLES Final Res ult [facility] Department [employer] [place] [address] * Potassium, whole blood (06/04/2021 12:30 AM SOLAR ENERGY SYSTEM INSTALLER) Potassium, bld 4.9 3.3 - 4.9 mmol/L [facility] Blood 06/04/2021 12:3 0 AM SOLAR ENERGY SYSTEM INSTALLER 06/04/2021 12:44 AM SOLAR ENERGY SYSTEM INSTALLER Suzette Rogers MD LAB BLOOD ORDERABLES Final Res ult Performing Organization Address [facility] Co de Phone Number [facility] [place] [address] * CT Abdomen Pelvis WO Contrast (06/03/2021 8:45 PM SOLAR ENERGY SYSTEM INSTALLER) Anatomical Region Laterality Modality Body N/A Computed Tomogra phy 06/03/2021 9:42 PM SOLAR ENERGY SYSTEM INSTALLER Impressions 06/04/2021 6:53 AM SOLAR ENERGY SYSTEM INSTALLER 1. Interval exchange of the artificial urethral sphincter with fluid, stranding and small amount of gas tracking along the catheter tubing. 2. Mild skin thickening in the peritoneum, not completely included in the [id number], correlate with physical exam. Dictated by: Danna Hamlin M.D. The radiology attending physician has personally reviewed this study, and had reviewed and/or edited this written report and agrees with it. Electronically signed by: Temo Lin M.D. Narrative 06/04/2021 6:53 AM SOLAR ENERGY SYSTEM INSTALLER EXAMINATION: ??Computed tomography of the abdomen and pelvis without intravenous contrast HISTORY: Artificial sphincter placement for urinary incontinence on 05/27/2021, now with acute renal injury, and decreased urinary output TECHNIQUE: ??Transaxial computed tomographic images of the abdomen and pelvis ??were obtained without intravenous contrast according to the standard protocol . COMPARISON: CT 01/21/2021 FINDINGS: ?? Left basilar atelectasis. Liver has a normal noncontrast appearance. Gallbladder is normal. No intrahepatic or extrahepatic biliary ductal dilatation. Spleen is normal. Pancreas is unremarkable. Patient is status post partial gastrectomy. There is unchanged small precaval lymph node (table position 621.5) Both adrenals are normal. No hydronephrosis. Both kidneys are similar in morphology since prior examination. There is unchanged abran mesentery with small mesenteric lymph nodes in keeping with prior panniculitis. There are scattered diverticulosis. No diverticulitis. The sigmoid colon is redundant. There is no focal bowel wall thickening. No evidence of small bowel obstruction. There are small bowel loops that is lateral to the descending colon, best appreciated on the coronal views however this is unchanged. There is submucosal fatty deposition of the urinary bladder, which is unchanged. Minimal perivesicular stranding is not significantly changed. There has been interval revision of a left urethral sphincter. There is stranding and gas along the tract of the catheter that connects to to the urethral sphincter from the reservoir. The perineum is not completely included in the [id number]. There appears to be mild skin thickening in the peritoneum without well-defined fluid collection. Multiple prominent but normal morphologic bilateral inguinal lymph nodes are present and are most certainly reactive. On bone windows, there are multilevel degenerative disc disease. Procedure Note Temo Lin MD - 06/04/2021 EXAMINATION: Computed tomography of the abdomen and pelvis without intravenous contrast HISTORY: Artificial sphincter placement for urinary incontinence on 05/27/2021, now with acute renal injury, and decreased urinary output TECHNIQUE: Transaxial computed tomographic images of the abdomen and pelvis were obtained without intravenous contrast according to the standard protocol . COMPARISON: CT 01/21/2021 FINDINGS: Left basilar atelectasis. Liver has a normal noncontrast appearance. Gallbladder is normal. No intrahepatic or extrahepatic biliary ductal dilatation. Spleen is normal. Pancreas is unremarkable. Patient is status post partial gastrectomy. There is unchanged small precaval lymph node (table position 621.5) Both adrenals are normal. No hydronephrosis. Both kidneys are similar in morphology since prior examination. There is unchanged abran mesentery with small mesenteric lymph nodes in keeping with prior panniculitis. There are scattered diverticulosis. No diverticulitis. The sigmoid colon is redundant. There is no focal bowel wall thickening. No evidence of small bowel obstruction. There are small bowel loops that is lateral to the descending colon, best appreciated on the coronal views however this is unchanged. There is submucosal fatty deposition of the urinary bladder, which is unchanged. Minimal perivesicular stranding is not significantly changed. There has been interval revision of a left urethral sphincter. There is stranding and gas along the tract of the catheter that connects to to the urethral sphincter from the reservoir. The perineum is not completely included in the [id number]. There appears to be mild skin thickening in the peritoneum without well-defined fluid collection. Multiple prominent but normal morphologic bilateral inguinal lymph nodes are present and are most certainly reactive. On bone windows, there are multilevel degenerative disc disease. IMPRESSION: 1. Interval exchange of the artificial urethral sphincter with fluid, stranding and small amount of gas tracking along the catheter tubing. 2. Mild skin thickening in the peritoneum, not completely included in the [id number], correlate with physical exam. Dictated by: Danna Hamlin M.D. The radiology attending physician has personally reviewed this study, and had reviewed and/or edited this written report and agrees with it. Electronically signed by: Temo Lin M.D. Suzette Rogers MD IMG CT PROCEDURES Final Result * Urea nitrogen, urine, random (06/03/2021 7:57 PM SOLAR ENERGY SYSTEM INSTALLER) Urea nitrogen, ur 192 mg/dL [facility] Comment: Interpretive Data No reference range established. Current interpretive data was last revised 2018. Urine 06/03/2021 7:57 PM SOLAR ENERGY SYSTEM INSTALLER 06/03/2021 8:59 PM SOLAR ENERGY SYSTEM INSTALLER Suzette Rogers MD LAB URINE ORDERABLES Final Res ult Performing Organization Address [facility] de Phone Number [facility] [place] [address] * Creatinine, urine, random (06/03/2021 7:57 PM SOLAR ENERGY SYSTEM INSTALLER) Creatinine Ur 44.1 mg/dL [facility] Comment: Interpretive Data No reference range established. Current interpretive data was last revised 2018. Urine 06/03/2021 7:57 PM SOLAR ENERGY SYSTEM INSTALLER 06/03/2021 8:59 PM SOLAR ENERGY SYSTEM INSTALLER Suzette Rogers MD LAB URINE ORDERABLES Final Res ult Performing Organization Address [facility] de Phone Number [facility] Department [place] [address] * Sodium, urine, random (06/03/2021 7:57 PM SOLAR ENERGY SYSTEM INSTALLER) Sodium, ur 92 mmol/L [facility] Comment: Interpretive Data No reference range established. Current interpretive data was last revised 2018. Urine 06/03/2021 7:57 PM SOLAR ENERGY SYSTEM INSTALLER 06/03/2021 8:59 PM SOLAR ENERGY SYSTEM INSTALLER Suzette Rogers MD LAB URINE ORDERABLES Final Res ult Performing Organization Address [facility] de Phone Number [facility] Department [place] [address] * (ABNORMAL) COVID-19 Coronavirus RNA Nasopharyngeal (06/03/2021 7:57 PM SOLAR ENERGY SYSTEM INSTALLER) [facility] COVID-19 RNA Detected(A) [facility] Comment: Interpretive Data Synonyms for this test include: PCR and NAAT . ??Testing performed by the [facility] Molecular Infectious Disease Laboratory. The 2019-Novel Coronavirus Assay (COVID-19) Real Time RT-PCR assay is for in vitro diagnostic use under FDA emergency use authorization only. A negative RT-PCR result does not preclude infection with COVID-19 and should not be used as the sole basis for treatment or other patient management decisions. ??Additional sample types have been validated according to CLIA regulations. ?? Current Interpretive Data was last revised on June 26, 2020. First COVID-19 test? No [facility] Employeed in healthcare? No [facility] Group care resident? Unknown [facility] Hospitalized? Yes [facility] Is patient in ICU? No [facility] Symptomatic as defined by CDC? No [facility] Nasopharyngeal 06/03/2021 7: 57 PM SOLAR ENERGY SYSTEM INSTALLER 06/03/2021 9:21 PM SOLAR ENERGY SYSTEM INSTALLER Narrative [facility] - 06/04/2021 5:00 AM SOLAR ENERGY SYSTEM INSTALLER What is the reason for testing?->Asymptomatic screening prior to procedure or surgery (Batched) Suzette Rogers MD LAB MICROBIOLOGY - GENERAL ORD ERABLES Final Result [facility] Department [place] [address] * (ABNORMAL) eGFR (06/03/2021 7:12 PM SOLAR ENERGY SYSTEM INSTALLER) [facility] eGFR 40(L) 90 - 130 mL/min/1. 73 m2 [facility] Comment: Interpretive Data Reference Interval Normal ?>/= 90 mL/min/1.73m2 Mildly decreased* ? 60 - 89 mL/min/1.73m2 Mildly to moderately decreased ?45 - 59 mL/min/1.73m2 Moderately to severely decreased ??30 - 44 mL/min/1.73m2 Severely decreased ?15 - 29 mL/min/1.73m2 Kidney Failure ?< 15 ??mL/min/1.73m2 *Relative to young adult level Estimated glomerular filtration rate is determined by the 2020 CKD-EPI equation recommended by the National Kidney Foundation (A Unifying Approach to GFR Estimation: Recommendations of the NKF-ASK Task Force on Reassessing the Inclusion of Race in Diagnosing Kidney Disease, JASN 2020). The CKD-EPI equation should not be used for patients with unstable renal function and has not been validated in children and those over 70. Current interpretive data was last reviewed 2021. Blood 06/03/2021 7:12 PM SOLAR ENERGY SYSTEM INSTALLER 06/03/2021 9:06 PM SOLAR ENERGY SYSTEM INSTALLER us Suzette Rogers MD LAB BLOOD ORDERABLES Final Res ult [facility] Department [place] [address] * (ABNORMAL) Basic metabolic panel (06/03/2021 7:12 PM SOLAR ENERGY SYSTEM INSTALLER) Sodium 140 135 - 145 mmol/L [facility] Potassium, pl 5.8(H) 3.3 - 4.9 mmol/L [facility] Chloride 105 97 - 110 mmol/L [facility] CO2 28 22 - 32 mmol/L [facility] Anion gap 7 2 - 15 mmol/L [facility] BUN 17 8 - 25 mg/dL [facility] Creatinine 1.92(H) 0.80 - 1.30 mg/dL [facility] Glucose 72 70 - 199 mg/dL [facility] Comment: Interpretive Data Fasting glucose >/= 126 mg/dl is diagnostic for diabetes. ?? Fasting is defined as no caloric intake for at least 8 hours. Fasting glucose between 100 mg/dl to 125 mg/dl is diagnostic of prediabetes. In a patient with classic symptoms of hyperglycemia or hyperglycemic crisis, a random glucose >/= 200 mg/dl is diagnostic for diabetes. In the absence of unequivocal hyperglycemia, results should be confirmed by repeat testing. The classification and Diagnosis of Diabetes Diabetes Care 2017;40 (Suppl. 1):S11. Current interpretive data was last revised 2017. Calcium 9.0 8.5 - 10.3 mg/dL [facility] Blood 06/03/2021 7:12 PM SOLAR ENERGY SYSTEM INSTALLER 06/03/2021 9:06 PM SOLAR ENERGY SYSTEM INSTALLER us Suzette Rogers MD LAB BLOOD ORDERABLES Final Res ult [facility] Department [place] [address] * (ABNORMAL) CBC without differential (06/03/2021 7:12 PM SOLAR ENERGY SYSTEM INSTALLER) WBC 9.9 3.8 - 9.9 K/cumm [facility] Hgb 11.7(L) 13.0 - 17.5 g/dL [facility] Hct 36.2(L) 38.9 - 50.3 % [facility] Plt 178 150 - 400 K/cumm [facility] MPV 13.4(H) 9.1 - 12.3 fL [facility] RBC 3.71(L) 4.30 - 5.80 M/cumm [facility] MCV 97.6(H) 81.3 - 96.4 fL [facility] MCH 31.5 27.1 - 33.3 pg [facility] MCHC 32.3 32.3 - 35.7 g/dL [facility] RDW CV 14.8 11.1 - 14.9 % [facility] RDW SD 52.9(H) 35.7 - 48.1 fL [facility] NRBC abs 0.00 0.00 - 0.01 K/cumm [facility] Blood 06/03/2021 7:12 PM SOLAR ENERGY SYSTEM INSTALLER 06/03/2021 9:07 PM SOLAR ENERGY SYSTEM INSTALLER us uSzette Rogers MD LAB BLOOD ORDERABLES Final Res ult [facility] [place] [address] documented in this encounter Visit Diagnoses Diagnosis Male stress incontinence- Primary documented in this encounter Administered Medications Inactive Administered Medications - up to 3 most recent administrations Medication Order MAR Action Action Date Dose Rate Site acetaminophen (TYLENOL) tablet 650 mg 650 mg, oral, Every 6 hours scheduled, First dose on Tue06/03/21 at 1830 Given 06/04/2021 11:53 AM SOLAR ENERGY SYSTEM INSTALLER 650 mg Given 06/04/2021 5:13 AM SOLAR ENERGY SYSTEM INSTALLER 650 mg Given 06/04/2021 12:35 AM SOLAR ENERGY SYSTEM INSTALLER 650 mg allopurinoL (ZYLOPRIM) tablet 100 mg 100 mg, oral, 2 times daily, First dose on Tue06/03/21 at 2100, Indications: prevention of acute gout attackIndications:prevention of acute gout attack Given 06/04/2021 10:27 AM SOLAR ENERGY SYSTEM INSTALLER 100 mg Given 06/03/2021 8:08 PM SOLAR ENERGY SYSTEM INSTALLER 100 mg atorvastatin (LIPITOR) tablet 40 mg 40 mg, oral, Nightly, First dose on Tue06/03/21 at 2100, Indications: hyperlipidemiaIndications:hyp erlipidemia Given 06/03/2021 8:07 PM SOLAR ENERGY SYSTEM INSTALLER 40 mg enoxaparin (LOVENOX) syringe 40 mg 40 mg, subcutaneous, Daily (for enoxaparin), First dose on Tue06/03/21 at 2100, Indications: Deep Vein Thrombosis Prevention, On hold since Sushila 06/04/2021 at 1353 until manually unheldIndications:Deep Vein Thrombosis Prevention Given 06/03/2021 8:05 PM SOLAR ENERGY SYSTEM INSTALLER 40 mg Right Lower Abdomen FLUoxetine (PROzac) capsule 20 mg 20 mg, oral, Nightly, First dose on Tue06/03/21 at 2100, Indications: depressionIndications:depress ion Given 06/03/2021 8:07 PM SOLAR ENERGY SYSTEM INSTALLER 20 mg gabapentin (NEURONTIN) tablet 600 mg 600 mg, oral, 2 times daily, First dose (after last modification) on Tue06/03/21 at 2115, Indications: Neuropathic PainIndications:Neuropathic Pain Given 06/04/2021 10:27 AM SOLAR ENERGY SYSTEM INSTALLER 600 mg Given 06/03/2021 10:49 PM SOLAR ENERGY SYSTEM INSTALLER 600 mg Lactated Ringer's (LR) infusion 75 mL/hr, intravenous, Continuous, Starting on Tue06/03/21 at 1830 New Bag 06/04/2021 12:31 AM SOLAR ENERGY SYSTEM INSTALLER 75 mL/hr 75 mL/hr oxyCODONE (ROXICODONE) tablet 5 mg 5 mg, oral, Every 4 hours PRN, 1st line for pain, Starting on Tue06/03/21 at 1749, Indications: PainIndications:Pain sodium chloride 0.9% flush 0.5-20 mL 0.5-20 mL, intra-catheter, Every 8 hours scheduled, First dose on Tue06/03/21 at 1745, Flush volume based on line type and size. Given 06/04/2021 1:15 PM SOLAR ENERGY SYSTEM INSTALLER 10 mL Given 06/04/2021 12:32 AM SOLAR ENERGY SYSTEM INSTALLER 10 mL sodium chloride 0.9% flush 0.5-20 mL 0.5-20 mL, intra-catheter, As needed, line care, Starting on Tue06/03/21 at 1659, Flush volume based on line type and size. Flush before and after each use. sulfamethoxazole-trimethoprim (BACTRIM DS) 800-160 mg per tablet 1 tablet 1 tablet, oral, 2 times daily, First dose on Tue06/03/21 at 2100, For 1 day, Indications: Prophylaxis, MedicalIndications:Prophylaxis, Medical Given 06/04/2021 10:27 AM SOLAR ENERGY SYSTEM INSTALLER 1 t ablet Given 06/03/2021 8:07 PM SOLAR ENERGY SYSTEM INSTALLER 1 tablet documented in this encounter Discontinued Medications Medication Sig Discontinue Reason Start Date End Da te carvediloL (COREG) 12.5 mg tabletIndications:hype rtension Take 12.5 mg by mouth 2 (two) times a day with meals 01/06/2021 06/03/2021 oxybutynin (DITROPAN) 5 mg tablet Take 1 tablet (5 mg total) by mouth 3 (three) times a day as needed (bladder spasms) for up to 20 doses Stop Taking at Discharge 01/30/2021 06/04/2021 phenazopyridine (PYRIDIUM) 100 mg tablet Take 1 tablet (100 mg total) by mouth 2 (two) times a day as needed for urinary pain Stop Taking at Discharge 01/31/2021 06/04/2021 solifenacin (VESIcare) 10 mg tabletIndications:OAB (overactive bladder) Take 1 tablet (10 mg total) by mouth daily Stop Taking at Discharge 02/13/2021 06/04/2021 sulfamethoxazole-trime thoprim (BACTRIM DS) 800-160 mg per tablet Take 1 tablet by mouth 2 (two) times a day for 7 days Stop Taking at Discharge 05/28/2021 06/04/2021 documented as of this encounter Active and Recently Administered Medications Times are shown in SOLAR ENERGY SYSTEM INSTALLER. Scheduled Medication Order 06/02/2021 06/03/2021 06/04/2021 acetaminophen (TYLENOL) tablet 650 mg 650 mg, oral, Every 6 hours scheduled, First dose on Tue06/03/21 at 1830 2006 (Given - Provider: Sharmila Pace RN) 0035 (Given - Provider: Teresa Adamson RN)0513 (Given - Provider: Sharmila Pace RN)1153 (Given - Provider: Ashley Boone RN)1800 (Due) allopurinoL (ZYLOPRIM) tablet 100 mg 100 mg, oral, 2 times daily, First dose on Tue06/03/21 at 2100, Indications: prevention of acute gout attack 2007 (Given - Provider: Sharmila Pace RN) 1027 (Given - Provider: Ashley Boone RN) atorvastatin (LIPITOR) tablet 40 mg 40 mg, oral, Nightly, First dose on Tue06/03/21 at 2100, Indications: hyperlipidemia 2006 (Given - Provider: Sharmila Pace RN) enoxaparin (LOVENOX) syringe 40 mg 40 mg, subcutaneous, Daily (for enoxaparin), First dose on Tue06/03/21 at 2100, Indications: Deep Vein Thrombosis Prevention, On hold since Sushila 06/04/2021 at 1353 until manually unheld 2004 (Given - Provider: Sharmila Pace RN)2006 (Not Given - Provider: Sharmila Pace RN - Reason: Patient/family refused) 1353 (Held by Provider - Provider: Divina Pathak MD - Reason: Other - Comment: ERIC)2213 (Unheld by Provider - Provider: Automatic Discharge Provider) FLUoxetine (PROzac) capsule 20 mg 20 mg, oral, Nightly, First dose on Tue06/03/21 at 2100, Indications: depression 2006 (Given - Provider: Sharmila Pace, AVA) gabapentin (NEURONTIN) tablet 600 mg 600 mg, oral, 2 times daily, First dose (after last modification) on Tue06/03/21 at 2115, Indications: Neuropathic Pain 2249 (Given - Provider: Sharmila Pace RN) 1027 (Given - Provider: Ashley Boone RN) sodium chloride 0.9% flush 0.5-20 mL 0.5-20 mL, intra-catheter, Every 8 hours scheduled, First dose on Tue06/03/21 at 1745, Flush volume based on line type and size. 0032 (Given - Provid er: Teresa Adamson RN)0036 (Not Given - Provider: Teresa Adamson RN - Reason: Loss of IV access)0519 (Not Given - Provider: Teresa Adamson RN - Reason: IV Infusing)1315 (Given - Provider: Ashley Boone RN) sulfamethoxazole-trimethopri m (BACTRIM DS) 800-160 mg per tablet 1 tablet (COMPLETED) 1 tablet, oral, 2 times daily, First dose on Tue06/03/21 at 2100, For 1 day, Indications: Prophylaxis, Medical 2006 (Given - Provider: Sharmila Pace RN) 1027 (Given - Provider: Ashley Boone RN) Continuous Medication Order 06/02/2021 06/03/2021 06/04/2021 Lactated Ringer's (LR) infusion 75 mL/hr, intravenous, Continuous, Starting on Tue06/03/21 at 1830 1830 (Not Given - Provider: Teresa Adamson RN - Reason: Loss of IV access) 0031 (New Bag - Provider: Teresa Adamson RN)0700 (Stopped - Provider: Inna Love RN - Comment: for transfer to another floor COVID +) PRN Medication Order 06/02/2021 06/03/2021 06/04/2021 oxyCODONE (ROXICODONE) tablet 5 mg 5 mg, oral, Every 4 hours PRN, 1st line for pain, Starting on Tue06/03/21 at 1749, Indications: Pain sodium chloride 0.9% flush 0.5-20 mL 0.5-20 mL, intra-catheter, As needed, line care, Starting on Tue06/03/21 at 1659, Flush volume based on line type and size. Flush before and after each use. documented in this encounter Orders Medications Ordered That Pacheco ht Not Have Been Administered Count Last Ordered Date First Ordered Date gabapentin (NEURONTIN) tablet 1,200 mg 1 oxyCODONE (ROXICODONE) tablet 5 mg 1 2021 sodium chloride 0.9% flush 0.5-20 mL 1 05/23 Consult Count Last Ordered Date First Orde red Date IP CONSULT TO NEPHROLOGY 1 06/04/2021 documented in this encounter Additional Health Concerns Infection Onset Date Last Indicated Resolved Time COVID19 06/03/2021 06/03/2021 06/14/2021 3:05 AM SOLAR ENERGY SYSTEM INSTALLER documented as of this encounter Care Teams Radar Mechanic Relationship Specialty Start Date End Date Natasha Bates PA [address] [place] [address] PCP - General Physician Gravel Screener 10/08/19 documented as of this encounter
--- OUTSIDE RECORDS SUMMARY | 2024-05-22 05:52 | XMS_ITS | Encounter Summary ---
Author Organization [facility] Healthcare Address [address] [place] [address] Care Team Providers Care Investment Representative Name Role Phone Natasha Bates Primary Care Provider [phone] Encounter Details Date Type Department Care Team (Late st Contact Info) Description 06/02/2021 2:45 PM STORY READER Lab [facility] [address] [place] [address] Suzette Rogers MD [address] [facility] [address] [place] [address] LIZET (stress urinary incontinence), male; Weak urine stream; Strains to urinate Discharge Disposition: Discharge to home or self [...] How often do you attend chur or mormon services? More than 4 times per year 06/05/2021 Do you belong to any clubs o r organizations such as gnosticist groups, unions, fraternal or athletic groups, or [...] place to sleep or slept in a senior care (including now)? No 06/05/2021 Sex and Gender Information Value Date Recorded Sex Assigned at Not on file Legal Sex 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 STORY READER Gender Identity Not on file Sexual Orientation Not on file documented as of this encounter Discharge Disposition Disposition Code Departure Means Destination Discharge to home or self care documented in this encounter Plan of Treatment Not on file documented as of this encounter Procedures Procedure Name Priority Date/Time Associated Diagnosis Comments EGFR Routine 06/02/2021 2:48 PM STORY READER LIZET (stress urinary incontinence), male Weak urine stream Strains to urinate BASIC METABOLIC PANEL Routine 06/02/2021 2:48 PM STORY READER LIZET (stress urinary incontinence), male Weak urine stream Strains to urinate URINE CULTURE Routine 06/02/2021 2:44 PM STORY READER LIZET (stress urinary incontinence), male documented in this encounter Results * eGFR (06/02/2021 2:48 PM STORY READER) eGFR 44 mL/min/1. 73 m2 [facility] Comment: Interpretive Data Reference Interval Normal ?>/= [...] interpretive data was last reviewed 2021. Blood 06/02/2021 2:48 PM STORY READER 06/02/2021 3:05 PM STORY READER Suzette Rogers MD LAB BLOOD ORDERABLES Final Res ult Performing Organization Address City/[facility]/ZIP Co de Phone Number [facility] [address] [employer] Department of [employer] [place], [place] [id number] * (ABNORMAL) Basic metabolic panel (06/02/2021 2:48 PM STORY READER) Pathologist [facility] Sodium 140 135 - 145 mmol/L [facility] Potassium, pl 5.4(H) 3.3 - 4.9 mmol/L [facility] Chloride 102 97 - 110 mmol/L [facility] CO2 28 22 - 32 mmol/L [facility] Anion gap 10 2 - 15 mmol/L [facility] BUN 19 8 - 25 mg/dL [facility] Creatinine 1.80(H) 0.80 - 1.30 mg/dL [facility] Glucose 83 70 - 199 mg/dL [facility] Comment: Interpretive Data Fasting glucose >/= 126 [...] interpretive data was last revised 2017. Calcium 9.2 8.5 - 10.3 mg/dL [facility] Blood 06/02/2021 2:48 PM STORY READER 06/02/2021 3:05 PM STORY READER Suzette Rogers MD LAB BLOOD ORDERABLES Final Res ult Performing Organization Address [facility]/ZIP Co de Phone Number [facility] [address] [employer] Department of [employer] [place], [place] [id number] * Urine culture Urine, clean voided (06/02/2021 2:44 PM STORY READER) Report Final Report: No growth [facility] Comment:Testing performed by : [facility], [facility][note 2][address] [facility], [place]., [address] Urine, clean voided 06/02/2021 2:44 PM STORY READER 06/02/2021 5:57 PM STORY READER Suzette Rogers MD LAB MICROBIOLOGY - GENERAL ORD ERABLES Final Result [facility] [address] [facility] Department [place] [address] documented in this encounter Visit Diagnoses Diagnosis LIZET (stress urinary incontinence), male Weak urine stream Strains to urinate documented in this encounter Care Teams Investment Representative Relationship Specialty Start Date End Date Natasha Bates PA [address] [place] [id number] PCP - General Physician Solder Sprayer 10/08/19 documented as of this encounter
--- OUTSIDE RECORDS SUMMARY | 2024-05-22 05:52 | XMS_ITS | Encounter Summary ---
Author Organization [facility] Address [address] [place] [address] Phone Care Team Providers Care Mill Operator Head Name Role Phone Natasha Bates Primary Care Provider [phone] Encounter Details Date Type Department Care Team (Late st Contact Info) Description 03/26/2021 Orders Only [facility] Urology [address] [facility] [address] [place] [address] Suzette Rogers MD [address] [facility] [address] [place] [address] Urinary tract infection without hematuria, site unspecified (Primary Dx) Social History Tobacco Use Types [...] on file Legal Sex 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 WASTEWATER TREATMENT SUPERVISOR Gender Identity Not on file Sexual Orientation Not on file documented as of this encounter Ordered Prescriptions Prescription Sig Dispense Quantity Refills Last Filled Start Date End Date sulfamethoxazole-t rimethoprim (BACTRIM DS) 800-160 mg per tabletIndications: Urinary tract infection without hematuria, site unspecified Take 1 tablet by mouth 2 (two) times a day for 7 days 14 tablet 03/26/2021 04/02/2021 documented in this encounter Plan of Treatment Not on file documented as of this encounter Visit Diagnoses Diagnosis Urinary tract infection without hematuria, site unspecified- Primary documented in this encounter Care Teams Mill Operator Head Relationship Specialty Start Date End Date Natasha Bates PA [address] [place] [address] PCP - General Physician Senior Financial Reporting Analyst 10/08/19 documented as of this encounter
--- OUTSIDE RECORDS SUMMARY | 2024-05-22 05:52 | XMS_ITS | Encounter Summary ---
Author Organization [facility] Address [address] [address] Care Team Providers Care Landscape Foreman Name Role Phone Natasha Bates Primary Care Provider [phone] Kimberly Bell ASSOCIATE PROFESSOR OF ENGLISH Unavailable [phone] Encounter Details Date Type Department Care Team (Late st Contact Info) Description 06/06/2021 Orders Only [facility] Accountable Care Organization [address] [place] [address] Nanda Santos, AVA [address] [place] [address] [address] [place] [address] Social History Tobacco Use Types Packs/Day Years [...] often do you attend chur ch or zoroastrian services? More than 4 times per year [...] place to sleep or slept in a long term (including now)? No 06/05/2021 Sex and Gender Information Value Date Recorded Sex Assigned at Not on file Legal Sex 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 STEWARD/STEWARDESS RAILROAD DINING CAR Gender Identity Not on file Sexual Orientation Not on file documented as of this encounter Plan of Treatment Not on file documented as of this encounter Visit Diagnoses Not on filedocumented in this encounter Additional Health Concerns Infection Onset Date Last Indicated Resolved Time COVID19 06/03/2021 06/03/2021 06/14/2021 3:05 AM STEWARD/STEWARDESS RAILROAD DINING CAR documented as of this encounter Care Teams Landscape Foreman Relationship Specialty Start Date End Date Natasha Bates PA [address] [place] [address] PCP - General Physician Oxygen Therapy Teacher 10/08/19 Kimberly Bell, JOAN [address] [facility] ([facility] Mailstop [phone] [place] [address] SHOP Outpatient Hearing Dog Trainer 06/05/21 07/05/21 documented as of this encounter
--- OUTSIDE RECORDS SUMMARY | 2024-05-22 05:52 | XMS_ITS | Encounter Summary ---
Author Organization [facility] Healthcare Address [address] [place] [address] Care Team Providers Care Geometry Tutor Name Role Phone Natasha Bates Primary Care Provider [phone] Kimberly Bell PUMPING STATION SUPERVISOR Unavailable [phone] Reason for Visit * Reason Comments Successfully Completed Encounter Details Date Type Department Care Team (Late st Contact Info) Description 06/11/2021 SHOP/CHAP Subsequent Outreach [facility] OP CASE MANAGEMENT [address] [place] [address] Kimberly Bell, PUMPING STATION SUPERVISOR [address] [facility] ([facility] Mailstop [phone] [place] [address] Social History Tobacco Use Types [...] How often do you attend chur or congregation services? More than 4 times per year 06/05/2021 Do you belong to any clubs o r organizations such as temple groups, unions, fraternal or athletic groups, or [...] place to sleep or slept in a fdc (including now)? No 06/05/2021 Sex and Gender Information Value Date Recorded Sex Assigned at Not on file Legal Sex 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 ROUTER OPERATOR RADIAL Gender Identity Not on file Sexual Orientation Not on file documented as of this encounter Progress Notes * Kimberly Bell LCSW - 06/11/2021 3:15 PM CST OCM spoke with pt who stated that he has been having ongoing issues with decreased urine output andkidney pain. Pt stated that he has contacted his wheel truer at [facility] and they are working to get him an appt soon. Pt stated he was going to the lab today to complete lab work for Dr. Rogers. Pt is aware of follow up scheduled for 06/18. Pt had no questions or concerns at this time. OCM will continue to follow. ER OPERATOR RADIAL documented in this encounter Plan of Treatment Not on file documented as of this encounter Visit Diagnoses Not on filedocumented in this encounter Additional Health Concerns Infection Onset Date Last Indicated Resolved Time COVID19 06/03/2021 06/03/2021 06/14/2021 3:05 AM ROUTER OPERATOR RADIAL documented as of this encounter Care Teams Geometry Tutor Relationship Specialty Start Date End Date Natasha Bates PA [address] [place] [address] PCP - General Physician Logistics Engineer 10/08/19 Kimberly Bell LCSW [address] [facility] ([facility]) Mailstop [phone] [place] [address] SHOP Outpatient Finishing Wire Sawyer 06/05/21 07/05/21 documented as of this encounter
--- OUTSIDE RECORDS SUMMARY | 2024-05-22 05:52 | XMS_ITS | Encounter Summary ---
Author Organization [facility] Address [address] [place] [address] Phone Care Team Providers Care Shop Hand Name Role Phone Natasha Bates Primary Care Provider [phone] Reason for Visit * Reason Comments complex catheter/guidewire catheter fell out, urinary incontinence s/p 01/30/2021 ARTIFICIAL SPHINCTER REMOVAL Encounter Details Date Type Department Care Team (Late st Contact Info) Description 02/13/2021 2:30 PM CDT Office Visit [facility] ([facility] - [facility] Urology [address] [facility] Advanced [facility] 11th [place] [address] [place] [id number] Suzette Rogers MD [address] [facility] [address] [place] [address] OAB (overactive bladder) (Primary Dx); LIZET (stress urinary incontinence), male Social History [...] on file Legal Sex 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 LOANS CONSULTANT Gender Identity Not on file Sexual Orientation Not on file documented as of this encounter Ordered Prescriptions Prescription Sig Dispense Quantity Refills Last Filled Start Date End Date solifenacin (VESIcare) 10 mg tabletIndications: OAB (overactive bladder) Take 1 tablet (10 mg total) by mouth daily 30 tablet 02/13/2021 06/04/2021 documented in this encounter Progress Notes * Suzette Rogers MD - 02/13/2021 2:30 PM CDT Cystoscopy (male): Indication for cystoscopy: Avila fell our after AUS cuff erosion and AUS removal The risks and benefits of office cystoscopy are discussed with patient. Risks include but not limited to infection, bleeding, pain, etc. Patient understands the risks and benefits and consented to proceed with office cystoscopy and all indicated procedures. The skin was prepped with betadine. Lidocaine in lubricant jelly was instilled into the urethra. The flexible cystoscope was introduced into the urethra and advanced into the bladder. URETHRA: Normal without strictures or lesions. The bulbar urethral is open, there is still a small opening at around 11 o'clock position, small, no stricture, no BNC. PROSTATE: Present TRIGONE & UOs: Normal anatomy with efflux of clear urine. No mucosal lesions or subtrigonal masses. BLADDER MUCOSA: Normal, without neoplasms or other lesions. DETRUSOR: Normal capacity, without flaccidity, without excessive compliance, without trabeculation or diverticula, without uninhibited bladder contractions on fillings. ADDITIONAL PROCEDURES: A wire was placed inside bladder lumen, then assiniboine and sioux catheter is placed. UCsobtained The cystoscopy was performed in the presence of suki Christie. documented in this encounter Miscellaneous Notes * Addendum Note - Shahnaz Li RN - 02/13/2021 2:30 PM CDTAddended by: SHAHNAZ LI on: 02/13/2021 03:10 PM Modules accepted: Orders documented in this encounter Plan of Treatment Not on file documented as of this encounter Results * Urine culture Urine, cystoscopic (02/13/2021 3:10 PM CDT) Report Final Report: No growth [facility] Urine, cystoscopic 3:10 PM CDT 02/13/2021 5:55 PM CDT Narrative [facility] - 02/15/2021 8:17 PM CDT Please run urine culture completely. ??If any questions, please call Urology Dept [phone]. Thank ;you Testing performed by [facility] ([phone]) us Suzette Rogers MD LAB MICROBIOLOGY - GENERAL ORD ERABLES Final Result [facility] Department [place] [address] documented in this encounter Visit Diagnoses Diagnosis OAB (overactive bladder)- Primary LIZET (stress urinary incontinence), male LIZET (stress urinary incontinence), male documented in this encounter Discontinued Medications Medication Sig Discontinue Reason Start Date End Da te solifenacin (VESIcare) 10 mg tabletIndications:Bladde r spasms Take 1 tablet (10 mg total) by mouth daily 02/03/2021 02/13/2021 documented as of this encounter Care Teams Shop Hand Relationship Specialty [place] [address] [place] [address] PCP - General Physician Policy Cancellation Clerk 10/08/19 documented as of this encounter
--- OUTSIDE RECORDS SUMMARY | 2024-05-22 05:52 | XMS_ITS | Encounter Summary ---
Author Organization [facility] Address [address] [place] [address] Phone Care Team Providers Care Freight Forwarder Name Role Phone Natasha Bates Primary Care Provider [phone] Encounter Details Date Type Department Care Team (Late st Contact Info) Description 06/01/2021 Telephone [facility] Surgery [address], [place] [id number] Suzette Rogers MD [address] [facility] [address] [place], [place] [id number] Social History Tobacco Use Types Packs/Day Years [...] on file Legal Sex 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 EVP MARKETING Gender Identity Not on file Sexual Orientation Not on file documented as of this encounter Miscellaneous Notes * Telephone Encounter - Shirin Quintero LPN - 06/01/2021 2:01 PM EVP MARKETING Returned call, patient feels pressure to urinate. He feels like the cuff is activated. He is not leaking. Also has burning in an area under the scrotum. Appointment made to see Dr. Rogers MARKETING * Telephone Encounter - Juanita Bellamy - 06/01/2021 1:35 PM CST Pt called stated that when he urine it's a lot of pressure. Pt would like a call back MARKETING documented in this encounter Plan of Treatment Not on file documented as of this encounter Visit Diagnoses Not on filedocumented in this encounter Care Teams Freight Forwarder Relationship Specialty Start Date End Date Natasha Bates PA [address] [place] [address] PCP - General Physician Watch Dial Stoner 10/08/19 documented as of this encounter
--- OUTSIDE RECORDS SUMMARY | 2024-05-22 05:52 | XMS_ITS | Encounter Summary ---
Author Organization [facility] Healthcare Address [address] [place] [address] Care Team Providers Care Recreation Therapy Aides Teacher Name Role Phone Natasha Bates Primary Care Provider [phone] Kimberly Bell HOLDER PILE DRIVING Unavailable [phone] Reason for Visit * Reason Comments Successfully Completed Encounter Details Date Type Department Care Team (Late st Contact Info) Description 06/05/2021 SHOP/CHAP Initial Outreach [facility] OP CASE MANAGEMENT [address] [place] [address] Kimberly Bell, HOLDER PILE DRIVING [address] [facility] ([facility] [place] [place] Mailstop [phone] [place] [address] Social History Tobacco Use Types [...] How often do you attend chur or protestant services? 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 Pt was admitted for decreaed urine output. Pt stated that he has been feeling well since getting home from the hospital. OCM reviewed AVS. OCM reviewed pt's medications and pt confirmed he had them all. Pt stated that he had no medication changes and was familiar with his prescriptions. OCM reviewed upcoming appts and pt confirmed dates/times and transportation. Pt stated that he is quarenting until Friday 06/09. Pt stated he has sent a [place]atta message to his PCP to request follow up and to receive another covid test to confirm he is negative so he can return to work after quarantine. OCM completed SDOH and noted no concerns. Pt is independent in ADLs and drives himself. Pt continues to work and has stable income. Pt voiced no needs or concerns at this time. He is aware he can call if needs arise. OCM will continue to follow. OR SOLUTIONS CONSULTANT documented in this encounter Plan of Treatment Not on file documented as of this encounter Visit Diagnoses Not on filedocumented in this encounter Additional Health Concerns Infection Onset Date Last Indicated Resolved Time COVID19 06/03/2021 06/03/2021 06/14/2021 3:05 AM SENIOR SOLUTIONS CONSULTANT documented as of this encounter Care Teams Recreation Therapy Aides Teacher Relationship Specialty Start Date End Date Natasha Bates PA [address] [place] [address] PCP - General Physician Chief Of Staff 10/08/19 Kimberly Bell LCSW [address] [facility] ([facility] [place] [place] Mailstop [phone] [place] [address] SHOP Outpatient Coding Analyst 06/05/21 07/05/21 documented as of this encounter
--- OUTSIDE RECORDS SUMMARY | 2024-05-22 05:52 | XMS_ITS | Encounter Summary ---
Author Organization [facility] Medical Group Address [address] [facility] [address] [place] [address] Care Team Providers Care Packaging Sales Representative Name Role Phone Natasha Bates Primary Care Provider [phone] Kimberly Bell ARMED SECURITY PROFESSIONAL Unavailable [phone] Reason for Visit * Reason Onset Date Comments Covid-19 Home Monitoring 06/11/2021 daily c alls Encounter Details Date Type Department Care Team (Late st Contact Info) Description 06/11/[address] [facility] Accountable Care Organization [address] [place] [address] Lo Kaur MA [address] [place] [address] [address] [facility] [address] [place] [address] Covid-19 Home Monitoring (daily calls ) Social History Tobacco Use Types Packs/Day [...] you attend [facility] or orthodoxy services? More than 4 times per year 06/05/2021 Do you belong to any clubs o r organizations such as amish groups, unions, fraternal or athletic groups, or [...] on file Legal Sex 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 MULTIMEDIA EDITOR Gender Identity Not on file Sexual Orientation Not on file documented as of this encounter Miscellaneous Notes * Telephone Encounter - Lo Kaur MA - 06/11/2021 10:16 AM CST This patient has enrolled in the PHONE ONLY version of COVID-19 Home Monitoring Program. COVID-19 Symptom questionnaire was not completed today, because the patient could not be reached. Next Program Call Due: 06/12 [facility] pt x 1 IMEDIA EDITOR documented in this encounter Plan of Treatment Not on file documented as of this encounter Visit Diagnoses Not on filedocumented in this encounter Additional Health Concerns Infection Onset Date Last Indicated Resolved Time COVID19 06/03/2021 06/03/2021 06/14/2021 3:05 AM MULTIMEDIA EDITOR documented as of this encounter Care Teams Packaging Sales Representative Relationship Specialty Start Date End Date Natasha Bates PA [address] [place] [address] PCP - General Physician Conservation Educator 10/08/19 Kimberly Bell, ARMED SECURITY PROFESSIONAL [address] [facility] ([facility] Mailstop [phone] [place] [address] SHOP Outpatient Grievance Coordinator 06/05/21 07/05/21 documented as of this encounter
--- OUTSIDE RECORDS SUMMARY | 2024-05-22 05:52 | XMS_ITS | Encounter Summary ---
Author Organization [facility] Address [address] [place] [address] Phone Care Team Providers Care Juvenile Officer Name Role Phone Natasha Bates Primary Care Provider [phone] Encounter Details Date Type Department Care Team (Late st Contact Info) Description 06/03/2021 Telephone [facility] Urology [address] [facility] Medical Office Building [address] [place] [address] Shirin Quintero LPN Social History Tobacco Use Types Packs/Day Years [...] on file Legal Sex 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 TIME STUDY ENGINEER Gender Identity Not on file Sexual Orientation Not on file documented as of this encounter Miscellaneous Notes * Telephone Encounter - Shirin Quintero LPN - 06/03/2021 10:14 AM TIME STUDY ENGINEER Spoke to patient, he will be admitted this afternoon to [facility] for renal insufficiency. STUDY ENGINEER documented in this encounter Plan of Treatment Not on file documented as of this encounter Visit Diagnoses Not on filedocumented in this encounter Care Teams Juvenile Officer Relationship Specialty Start Date End Date Natasha Bates PA [address] [place] [address] PCP - General Physician Plain Clothes Police Officer 10/08/19 documented as of this encounter
--- OUTSIDE RECORDS SUMMARY | 2024-05-22 05:52 | XMS_ITS | Encounter Summary ---
Author Organization [facility] Medical Group Address [address] [facility] [address] [place] [address] Care Team Providers Care Tree Faller Name Role Phone Natasha Bates Primary Care Provider [phone] Kimberly Bell MEDICAL DIRECTOR Unavailable [phone] Reason for Visit * Reason Onset Date Comments Covid-19 Home Monitoring 06/09/2021 daily c all Encounter Details Date Type Department Care Team (Late st Contact Info) Description 06/09/2021 Telephone [facility] Accountable Care Organization [address] [place] [address] Yeyo Salas LPN [address] [facility] [address] [facility] [address] [place] [address] Covid-19 Home Monitoring (daily call ) Social History Tobacco Use Types Packs/Day [...] week 06/05/2021 How often do you attend [facility] or faith services? More than 4 times per year 06/05/2021 Do you belong to any clubs o r organizations such as episcopal groups, unions, fraternal or athletic groups, or [...] place to sleep or slept in a long-term (including now)? No 06/05/2021 Sex and Gender Information Value Date Recorded Sex Assigned at Not on file Legal Sex 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 HARVEST SUPERVISOR Gender Identity Not on file Sexual Orientation Not on file documented as of this encounter Miscellaneous Notes * Telephone Encounter - Yeyo Salas LPN - 06/09/2021 12:27 PM HARVEST SUPERVISOR COVID-19 Home Monitoring Flowsheet Answers: Temp/Pulse Ox Temp: (97.9) Symptom Monitoring Are you feeling short of breath today?: No Are you having a cough today?: No Are you experiencing weakness today?: No How is your appetite compared to yesterday?: Unchanged Are you vomiting?: No Are you experiencing diarrhea? : No This patient has enrolled in the PHONE ONLY version of COVID-19 Home Monitoring Program. COVID-19 Symptom questionnaire was completed today. Symptoms were addressed to be Mild. Escalation was not needed. Next Program Call Due: 06/10 EST SUPERVISOR documented in this encounter Plan of Treatment Not on file documented as of this encounter Visit Diagnoses Not on filedocumented in this encounter Additional Health Concerns Infection Onset Date Last Indicated Resolved Time COVID19 06/03/2021 06/03/2021 06/14/2021 3:05 AM HARVEST SUPERVISOR documented as of this encounter Care Teams Tree Faller Relationship Specialty Start Date End Date Natasha Bates PA [address] [place] [address] PCP - General Physician Football Scout 10/08/19 Kmiberly Bell LCSW [address] [facility] ([facility]) Mailstop [phone] [place] [address] SHOP Outpatient Rv Repairer 06/05/21 07/05/21 documented as of this encounter
--- OUTSIDE RECORDS SUMMARY | 2024-05-22 05:52 | XMS_ITS | Encounter Summary ---
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 Pt is scheduled for surgery tomorrow 05/27 and wants to know if this effects anything. R POLISHING WORKER documented in this encounter Plan of Treatment Not on file documented as of this encounter Visit Diagnoses Not on filedocumented in this encounter Care Teams Customer Associate Relationship Specialty Start Date End Date Natasha Bates PA [address] [place] [address] PCP - General Physician Assistant Professor Of Physics 10/08/19 documented as of this encounter
--- OUTSIDE RECORDS SUMMARY | 2024-05-22 05:52 | XMS_ITS | Encounter Summary ---
Author Organization [facility] Healthcare Address [address] [place] [address] Care Team Providers Care Principal Java Software Engineer Name Role Phone Natasha Bates Primary Care Provider [phone] Kimberly Bell HOUSE PAINTING INSTRUCTOR Unavailable [phone] Reason for Visit * Reason Comments Chart Review Encounter Details Date Type Department Care Team (Late st Contact Info) Description 06/05/2021 SHOP/CHAP Initial Eligibility Review [facility] OP CASE MANAGEMENT [address] [place] [address] Kimberly Bell, HOUSE PAINTING INSTRUCTOR [address] [facility] ([facility] Mailstop [phone] [place] [address] Social History Tobacco Use Types [...] How often do you attend chur or restorationism services? More than 4 times per year 06/05/2021 Do you belong to any clubs o r organizations such as religious groups, unions, fraternal or athletic groups, or [...] file Legal Sex 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 MANAGER SECURITY AND SAFETY Gender Identity Not on file Sexual Orientation Not on file documented as of this encounter Plan of Treatment Not on file documented as of this encounter Visit Diagnoses Not on filedocumented in this encounter Additional Health Concerns Infection Onset Date Last Indicated Resolved Time COVID19 06/03/2021 06/03/2021 06/14/2021 3:05 AM MANAGER SECURITY AND SAFETY documented as of this encounter Care Teams Principal Java Software Engineer Relationship Specialty Start Date End Date Natasha Bates PA [address] [place] [address] PCP - General Physician Legal Receptionist 10/08/19 Kimberly Bell LCSW [address] [facility] ([facility] Mailop [phone] [place] [address] SHOP Outpatient Service Center Representative 06/05/21 07/05/21 documented as of this encounter
--- OUTSIDE RECORDS SUMMARY | 2024-05-22 05:52 | XMS_ITS | Encounter Summary ---
Author Organization [facility] Address [address] [place] [address] Phone Care Team Providers Care Community Mental Health Worker Name Role Phone Natasha Bates Primary Care Provider [phone] Encounter Details Date Type Department Care Team (Late st Contact Info) Description 03/05/2021 Telephone [facility] Surgery [address] [place] [address] Karely Retana, [facility] Social History Tobacco Use Types Packs/Day Years [...] on file Legal Sex 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 PULPWOOD CONTRACTOR Gender Identity Not on file Sexual Orientation Not on file documented as of this encounter Miscellaneous Notes * Telephone Encounter - Shirin Quintero LPN - 03/09/2021 12:24 PM CDT My chart message sent to patient. * Telephone Encounter - Karely Retana, DONYA - 03/05/2021 12:41 PM CDT Pt states he was a squeezed in for Dr. Rogers's 04/[address] Rogers wanted to see him then. Now that clinic is being rescheduled and first available is 05/14. Pt asked that I send a message to see if he could be squeezed in sooner. Please advice documented in this encounter Plan of Treatment Not on file documented as of this encounter Visit Diagnoses Not on filedocumented in this encounter Care Teams Community Mental Health Worker Relationship Specialty Start Date End Date Natasha Bates PA [address] [place] [address] PCP - General Physician Ethylene Plant Operator 10/08/19 documented as of this encounter
--- OUTSIDE RECORDS SUMMARY | 2024-05-22 05:52 | XMS_ITS | Encounter Summary ---
Author Organization [facility] Medical Group Address [address] [facility] [address] [place] [address] Care Team Providers Care Digital Producer Name Role Phone Natasha Bates Primary Care Provider [phone] Kimberly Bell DUST BOX TENDER Unavailable [phone] Reason for Visit * Reason Onset Date Comments Covid-19 Home Monitoring 06/10/2021 Encounter Details Date Type Department Care Team (Late st Contact Info) Description 06/10/2021 Telephone [facility] Accountable Care Organization [address] [place] [address] Yelena Hernandez LPN [address] [place] [address] [address] [place] [address] Covid-19 Home Monitoring Social History Tobacco Use [...] week 06/05/2021 How often do you attend [facility] or restorationist services? More than 4 times per year 06/05/2021 Do you belong to any clubs o r organizations such as sabianist groups, unions, fraternal or athletic groups, or [...] on file Legal Sex 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 RESIDENTIAL SUBSTANCE ABUSE COUNSELOR Gender Identity Not on file Sexual Orientation Not on file documented as of this encounter Miscellaneous Notes * Telephone Encounter - Yelena Temple LPN - 06/10/2021 3:35 PM RESIDENTIAL SUBSTANCE ABUSE COUNSELOR COVID-19 Home Monitoring Flowsheet Answers: Temp/Pulse Ox Temp: (no fever) Symptom Monitoring Are you feeling short of [...] was not needed. Next Program Call Due: 06/11 DENTIAL SUBSTANCE ABUSE COUNSELOR DENTIAL SUBSTANCE ABUSE COUNSELOR * Telephone Encounter - Yelena Temple LPN - 06/10/2021 11:52 AM RESIDENTIAL SUBSTANCE ABUSE COUNSELOR COVID Home Monitoring Unable to Reach Called patient for home monitoring MA assessment. Unable to reach patient. Patient will receive follow up call today. DENTIAL SUBSTANCE ABUSE COUNSELOR documented in this encounter Plan of Treatment Not on file documented as of this encounter Visit Diagnoses Not on filedocumented in this encounter Additional Health Concerns Infection Onset Date Last Indicated Resolved Time COVID19 06/03/2021 06/03/2021 06/14/2021 3:05 AM RESIDENTIAL SUBSTANCE ABUSE COUNSELOR documented as of this encounter Care Teams Digital Producer Relationship Specialty Start Date End Date Natasha Bates PA [address] [place] [address] PCP - General Physician Project Management Specialist 10/08/19 Kimberly Bell LCSW [address] [facility] ([facility] Mailstop [phone] [place] [address] SHOP Outpatient Section Supervisor 06/05/21 07/05/21 documented as of this encounter
--- OUTSIDE RECORDS SUMMARY | 2024-05-22 05:52 | XMS_ITS | Encounter Summary ---
Author Organization [facility] Medical Group Address [address] [facility] [address] [place] [address] Care Team Providers Care Sponsorship Coordinator Name Role Phone Natasha Bates Primary Care Provider [phone] Kimberly Bell EMERGENCY RESPONSE OFFICER Unavailable [phone] Reason for Visit * Reason Onset Date Comments Covid-19 Home Monitoring 06/07/2021 Encounter Details Date Type Department Care Team (Late st Contact Info) Description 06/07/2021 Telephone [facility] [address] [facility] [address] [place] [address] Divina Carter MA Covid-19 Home Monitoring Social History Tobacco Use [...] often do you attend chur ch or synagogue services? More than 4 times per year 06/05/2021 Do you belong to any clubs o r organizations such as confucianism groups, unions, fraternal or athletic groups, or [...] on file Legal Sex 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 CROP PICKER Gender Identity Not on file Sexual Orientation Not on file documented as of this encounter Miscellaneous Notes * Telephone Encounter - Divina Carter MA - 06/07/2021 9:52 AM CROP PICKER COVID-19 Home Monitoring Flowsheet Answers: Temp/Pulse Ox Symptom Monitoring Are you feeling short of breath today?: No Are you having a cough today?: No Are you experiencing weakness today?: No How is your appetite compared to yesterday?: Better Are you vomiting?: No Are you experiencing diarrhea? : No This patient has enrolled in the PHONE ONLY version of COVID-19 Home Monitoring Program. COVID-19 Symptom questionnaire was completed today. Symptoms were addressed to be Mild. Escalation was not needed. Next Program Call Due: 06/08/21 PICKER * Telephone Encounter - Divina Carter MA - 06/07/2021 9:50 AM CROP PICKER ----- Message from Nanda Santos RN sent at 06/06/2021 2:48 PM CROP PICKER ----- Regarding: patient call 06/07 Patient received [employer] message for enrollment into HM program. Patient responded that he wanted to participate in the phone only program. PICKER documented in this encounter Plan of Treatment Not on file documented as of this encounter Visit Diagnoses Not on filedocumented in this encounter Additional Health Concerns Infection Onset Date Last Indicated Resolved Time COVID19 06/03/2021 06/03/2021 06/14/2021 3:05 AM CROP PICKER documented as of this encounter Care Teams Sponsorship Coordinator Relationship Specialty Start Date End Date Natasha Bates PA [address] [place] [address] PCP - General Physician Behavioral Intervention Specialist 10/08/19 Kimberly Bell LCSW [address] [facility] ([facility]) Mailstop [phone] [place] [address] SHOP Outpatient Manager Pediatric 06/05/21 07/05/21 documented as of this encounter
--- OUTSIDE RECORDS SUMMARY | 2024-05-22 05:52 | XMS_ITS | Encounter Summary ---
Author Organization [facility] Healthcare Address [address] [place] [address] Care Team Providers Care Petrologist Name Role Phone Natasha Bates Primary Care Provider [phone] Encounter Details Date Type Department Care Team (Late st Contact Info) Description 05/25/2021 10:50 PM ANALYTICS ANALYST Lab [address] [address] Pre-procedure lab exam Social History Tobacco Use Types Packs/Day Years [...] on file Legal Sex 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 ANALYTICS ANALYST Gender Identity Not on file Sexual Orientation Not on file documented as of this encounter Plan of Treatment Not on file documented as of this encounter Procedures Procedure Name Priority Date/Time Associated Diagnosis Comments COVID-19 CORONAVIRUS RNA Routine 05/25/2021 4:05 PM ANALYTICS ANALYST Pre-procedure lab exam documented in this encounter Results * COVID-19 Coronavirus RNA Nasopharyngeal (05/25/2021 4:05 PM ANALYTICS ANALYST) COVID-19 RNA Not Detected YO PORTER Comment: Interpretive Data Synonyms for this test include: PCR and NAAT . ??Testing performed by the [facility] Molecular Infectious Disease Laboratory. The 2018-Novel Coronavirus Assay (COVID-19) Real Time RT-PCR assay [...] June 26, 2020. First COVID-19 test? No YO CORTEZ Employeed in healthcare? No [facility] Group care resident? No [facility] Hospitalized? No [facility] Is patient in ICU? No [facility] Symptomatic as defined by CDC? No [facility] Nasopharyngeal 05/25/2021 4: 05 PM ANALYTICS ANALYST 05/25/2021 11:40 PM ANALYTICS ANALYST Narrative [facility] - 05/26/2021 1:40 PM ANALYTICS ANALYST What is the reason for testing?->Screening prior to scheduled procedure or surgery (batch) us Suzette Rogers MD LAB MICROBIOLOGY - GENERAL ORD ERABLES Final Result [facility] [address] [facility] [place] [address] documented in this encounter Visit Diagnoses Diagnosis Pre-procedure lab exam Pre-procedural laboratory examination documented in this encounter Care Teams Petrologist Relationship Specialty [place] [address] [place] [address] PCP - General Physician Copy Machine Operator 10/08/19 documented as of this encounter
--- OUTSIDE RECORDS SUMMARY | 2024-05-22 05:52 | XMS_ITS | Encounter Summary ---
Author Organization [facility] Address [address] [place] [address] Phone Care Team Providers Care Community Health Worker Name Role Phone Natasha Bates Primary Care Provider [phone] Encounter Details Date Type Department Care Team (Late st Contact Info) Description 04/18/2021 Telephone [facility] ([facility] - [facility] Urology [address] [facility] 11th [place] [address] [place] [address] Bob Martinez MD [address] [facility] [address] [place] [address] Social History Tobacco Use Types Packs/Day Years [...] on file Legal Sex 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 HAND I CUTTER Gender Identity Not on file Sexual Orientation Not on file documented as of this encounter Ordered Prescriptions Prescription Sig Dispense Quantity Refills Last Filled Start Date End Date sulfamethoxazole-t rimethoprim (BACTRIM DS) 800-160 mg per tablet Take 1 tablet by mouth 2 (two) times a day for 7 days 14 tablet 04/18/2021 04/25/2021 documented in this encounter Miscellaneous Notes * Telephone Encounter - Bob Martinez MD - 04/18/2021 3:17 PM CST Patient called the exchange, complaining of dysuria and gross hematuria. Had a UTI a few weeks ago with similar sx that was treated with antibiotics. Denies fevers, chills, nausea, or vomiting. He isunable to get a urine culture done today. Discussed that this is possibly another UTI. Will treat empirically with 7d Bactrim. He will still complete a urine culture on Tuesday. Strict return precautions provided. I CUTTER documented in this encounter Plan of Treatment Not on file documented as of this encounter Procedures Procedure Name Priority Date/Time Associated Diagnosis Comments URINE CULTURE Routine 04/20/2021 1:23 PM HAND I CUTTER Dysuria documented in this encounter Results * Urine culture Urine, clean voided (04/20/2021 1:23 PM HAND I CUTTER) Urine culture Final report [facility] - 01 Result 1 No growth [facility] - 01 Urine, clean voided 04/20/2021 1:23 PM HAND I CUTTER 04/20/2021 Comment:MARIA VICTORIA Narrative [facility] - 04/22/2021 6:10 AM HAND I CUTTER Performed at: ??01 - [facility] [address] ??[id number] Timber Packer: Mane Sanchez PhD, Phone: ??[phone] us Bob Martinez MD LAB MICROBIOLO GY - GENERAL ORDERABLES Final Result [facility] - 01 documented in this encounter Visit Diagnoses Diagnosis Dysuria- Primary documented in this encounter Care Teams Community Health Worker Relationship Specialty Start Date End Date Natasha Bates PA [address] [place] [address] PCP - General Physician Phlebotomist 10/08/19 documented as of this encounter
--- OUTSIDE RECORDS SUMMARY | 2024-05-22 05:52 | XMS_ITS | Encounter Summary ---
Author Organization [facility] Medical Group Address [address] [facility] [address] [place] [address] Care Team Providers Care Pullman Car Repairer Name Role Phone Natasha Bates Primary Care Provider [phone] Kimberly Bell DITCH TENDER Unavailable [phone] Reason for Visit * Reason Onset Date Comments Covid-19 Home Monitoring 06/08/2021 daily c all Encounter Details Date Type Department Care Team (Late st Contact Info) Description 06/08/2021 Telephone [facility] Accountable Care Organization [address] [place] [address] Yeyo Salsa LPN [address] [facility] [facility] [facility] [address] [facility] [address] [place] [address] Covid-19 Home Monitoring (daily call ) Social [...] week 06/05/2021 How often do you attend [facility] or yarsanism services? More than 4 times per year 06/05/2021 Do you belong to any clubs o r organizations such as sikhism groups, unions, fraternal or athletic groups, or [...] on file Legal Sex 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 COUNTRY PRINTER Gender Identity Not on file Sexual Orientation Not on file documented as of this encounter Miscellaneous Notes * Telephone Encounter - Rossana Wagner MA - 06/08/2021 10:58 AM COUNTRY PRINTER COVID-19 Home Monitoring Flowsheet Answers: Temp/Pulse Ox [...] was not needed. Next Program Call Due: 06/09 TRY PRINTER * Telephone Encounter - Yeyo Salas LPN - 06/08/2021 9:21 AM COUNTRY PRINTER This patient has enrolled in the PHONE ONLY version of COVID-19 Home Monitoring Program. COVID-19 Symptom questionnaire was not completed today, because the patient could not be reached. Next Program Call Due: 06/09 [facility] day 1 TRY PRINTER documented in this encounter Plan of Treatment Not on file documented as of this encounter Visit Diagnoses Not on filedocumented in this encounter Additional Health Concerns Infection Onset Date Last Indicated Resolved Time COVID19 06/03/2021 06/03/2021 06/14/2021 3:05 AM COUNTRY PRINTER documented as of this encounter Care Teams Pullman Car Repairer Relationship Specialty Start Date End Date Natasha Bates PA [address] [place] [address] PCP - General Physician Marketing Development Representative 10/08/19 Kimberly Bell LCSW [address] [facility] ([facility] Mailstop [phone] [place] [address] SHOP Outpatient Ophthalmic Technician Apprentice 06/05/21 07/05/21 documented as of this encounter
--- OUTSIDE RECORDS SUMMARY | 2024-05-22 05:52 | XMS_ITS | Encounter Summary ---
Author Organization [facility] Address [address] [place] [address] Phone Care Team Providers Care Environmental Programs Manager Name Role Phone Natasha Bates Primary Care Provider [phone] Reason for Visit * Reason Comments Follow-up Cysto for stress inc ontinence * Consultation (Routine) - Closed Specialty Diagnoses / Procedures Referred By Malena sagastume Referred To Contact Urology Diagnoses Follow up Natasha Bates PA [address] [place] [address] Phone: tel: fax: [facility] (All Locations) Referral ID Status Reason Start Date Expiration Date V isits Requested Visits Authorized [id number] Closed Specialty Services Required 03/02/2021 04/01/2022 99 99 Encounter Details Date Type Department Care Team (Late st Contact Info) Description 04/23/2021 11:00 AM OUTREACH ASSISTANT Office Visit [facility] ([facility]) - [facility] Urology [address] [facility] 11th [place] [address] [place] [id number] Suzette Rogers MD [address] [facility] [address] [place] [address] LIZET (stress urinary incontinence), male (Primary Dx); [...] on file Legal Sex 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 OUTREACH ASSISTANT Gender Identity Not on file Sexual Orientation Not on file documented as of this encounter Progress Notes * Suzette Rogers MD - 04/23/2021 11:00 AM CST HPI: Howie Delaney is a 55 y.o. 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 Patient is here for cystoscopy today to evaluate the health and the status ofhis urethra before we implanted the AUS back in him. As expected, he has significant recurrent malestress urine incontinence without the AUS in place, he is wearing diapers. His AUS was implanted in August 2017 with a 4.0 cm cuff in the bulbar urethra. ROS: Review Of Systems has been reviewed [...] Normal affect and mood, oriented x 3. 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 URETHRA: Normal without strictures or lesions. There no urethral stricture in the bulbar urethra. PROSTATE: normal TRIGONE & UOs: Normal anatomy with efflux of clear urine. No mucosal lesions or subtrigonal masses. BLADDER MUCOSA: Normal, without neoplasms or other lesions. DETRUSOR: Normal capacity, without flaccidity, without excessive compliance, without trabeculation or diverticula, without uninhibited bladder contractions on fillings. RETROFLEXED SCOPE VIEW: Normal ADDITIONAL PROCEDURES: None The cystoscopy was performed in the presence of doughnut batter mixer, Adalgisa Munoz. 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 We have discussed the pros and cons of doing reimplant of the artificial urinary sphincter 2. Urine culture, he had a urinary tract infection last week 3. Once he has decided whether not to proceed with the AUS reimplant, he will call the office and let us know. AUS: Patient has elected to consider the insertion of an artificial urinary sphincter (AUS) for treatment of his stress urinary incontinence. Discussed with patient in detail all risks, benefits and alternatives to the surgery. All questionswere answered. The patient wishes to proceed with the surgery as planned. Risks discussed and included, but were not limited to, wound/prosthesis infection, penile perforation/urethral injury, erosion, mechanical failure, cuff atrophy, the need for revision surgery in the future, recurrent or persistent incontinence, bleeding, and pump migration. We also discussed the very low risk of intra-abdominal organ/bowel injury with pressure regulating balloon placement. He is also aware that the AUS may not completely make him (1 or more pad per day)dry but should improve his incontinence. Time: My total encounter time on 04/23/2021 was 20 minutes which was spent in the activities documented inthe note. This includes time spent prior to the visit and after the visit in direct care of the patient. This time does not include time spent in any separately reportable services. I have spent the encounter time with the patient taking a history, doing a physical exam and treatment planning, greater than 50% of the visit was spent on counseling and coordinating care, and explaining the surgery, the pros and cons of surgery, the alternatives to and various options of surgery,benefits and potential complications of surgery, associated with the following diagnosis: male LIZET,and the management of this condition. Patient was given the opportunities to ask questions regarding the surgery and consented to proceed with the following surgery: AUS insertion, cystoscopy, and all indicated procedures. Linda Rogers MD paper bag making machinist (Urology) Division of Urologic Surgery [facility] Office [phone] 04/23/2021 11:32 AM EACH ASSISTANT documented in this encounter Miscellaneous Notes * Addendum Note - Adalgisa Munoz LPN - 04/23/2021 11:00 AM CSTAddended by: ADALGISA MUNOZ on: 04/23/2021 12:48 PM Modules accepted: Orders EACH ASSISTANT documented in this encounter Plan of Treatment Not on file documented as of this encounter Procedures Procedure Name Priority Date/Time Associated Diagnosis Comments POCT URINALYSIS DIPSTICK Routine 04/23/2021 11:40 AM OUTREACH ASSISTANT LIZET (stress urinary incontinence), male documented in this encounter Results * Urine culture Urine, clean voided (04/23/2021 4:16 PM OUTREACH ASSISTANT) Report Final Report: Less than 100,000 colonies/mL (clinically insignificant growth based on current clinical standards) YO CORTEZ Organism (CLINICALLY INSIGNIFICANT GROWTH [facility] Urine, clean voided 04/23/2021 4:16 PM OUTREACH ASSISTANT 04/23/2021 4:49 PM OUTREACH ASSISTANT Narrative [facility] - 04/24/2021 5:33 PM OUTREACH ASSISTANT Testing performed by [facility] Microbiology Laboratory ([phone]) Suzette Rogers MD LAB MICROBIOLOGY - GENERAL ORD ERABLES Final Result [facility] [address] [facility] Department [place] [address] * (ABNORMAL) POCT urinalysis dipstick (04/23/2021 11:40 AM OUTREACH ASSISTANT) Glucose, ur, POC Negative Negative mg/dL Ketones, ur, POC Negative Negative Blood, ur, POC Negative Negative pH, ur, POC 5.0 5.0 - 8.0 Protein, ur, POC 3+(A) Negative Nitrite, ur, POC Negative Negative Leukocytes, ur, POC Negative Negative Lot Number x Urine 04/23/2021 11:4 0 AM OUTREACH ASSISTANT Suzette Rogers MD POINT OF CARE TEST ORDERABLES Final Result documented in this encounter Visit Diagnoses Diagnosis LIZET (stress urinary incontinence), male- Primary Follow up LIZET (stress urinary incontinence), male documented in this encounter Orders Outpatient Referral Count Last Ordered Date Fir st Ordered Date AMB REFERRAL TO UROLOGY 1 04/23/2021 documented in this encounter Care Teams Environmental Programs Manager Relationship Specialty Start Date End Date Natasha Bates PA [address] [place] [address] PCP - General Physician Service Tech/Welder 10/08/19 documented as of this encounter
--- OUTSIDE RECORDS SUMMARY | 2024-05-22 05:52 | XMS_ITS | Encounter Summary ---
Author Organization [facility] Address [address] [place] [address] Phone Care Team Providers Care Instrument Tech Name Role Phone Natasha Bates Primary Care Provider [phone] Encounter Details Date Type Department Care Team (Late st Contact Info) Description 03/12/2021 Orders Only [facility] ([facility]) - [facility] Urology [address] [facility] 11th [place] [address] [place] [address] Suzette Rogers MD [address] [facility] [address] [place] [address] LIZET (stress urinary incontinence), male (Primary Dx) [...] on file Legal Sex 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 MECHANICAL INSPECTOR Gender Identity Not on file Sexual Orientation Not on file documented as of this encounter Plan of Treatment Not on file documented as of this encounter Procedures Procedure Name Priority Date/Time Associated Diagnosis Comments URINE CULTURE Routine 04/01/2021 2:46 PM MECHANICAL INSPECTOR LIZET (stress urinary incontinence), male documented in this encounter Results * Urine culture Urine, clean voided (04/01/2021 2:46 PM MECHANICAL INSPECTOR) Urine culture Final report [facility] - 01 Result 1 No growth [facility] - 01 Urine, clean voided 04/01/2021 2:46 PM MECHANICAL INSPECTOR 04/01/2021 Comment:UC Narrative [facility] - 04/03/2021 5:08 AM MECHANICAL INSPECTOR Performed at: ??01 - [facility] [address] ??[id number] Wine Steward: Mane Sanchez PhD, Phone: ??[phone] us Suzette Rogers MD LAB MICROBIOLOGY - GENERAL ORD ERABLES Final Result [facility] - 01 documented in this encounter Visit Diagnoses Diagnosis LIZET (stress urinary incontinence), male- Primary documented in this encounter Care Teams Instrument Tech Relationship Specialty Start Date End Date Natasha Bates PA [address] [place] [address] PCP - General Physician Strike Off Machine Operator 10/08/19 documented as of this encounter
--- OUTSIDE RECORDS SUMMARY | 2024-05-22 05:52 | XMS_ITS | Encounter Summary ---
Author Organization [facility] Healthcare Address [address] [place] [address] Care Team Providers Care Assistant Portfolio Manager Name Role Phone Natasha Bates Primary Care Provider [phone] Encounter Details Date Type Department Care Team (Late st Contact Info) Description 04/23/2021 4:20 PM HAND II BLOCKER Lab [address] [address] LIZET (stress urinary incontinence), male Social History [...] file Legal Sex 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 HAND II BLOCKER Gender Identity Not on file Sexual Orientation Not on file documented as of this encounter Plan of Treatment Not on file documented as of this encounter Procedures Procedure Name Priority Date/Time Associated Diagnosis Comments URINE CULTURE Routine 04/23/2021 4:16 PM HAND II BLOCKER LIZET (stress urinary incontinence), male documented in this encounter Results * Urine culture Urine, clean voided (04/23/2021 4:16 PM HAND II BLOCKER) Report Final Report: Less than 100,000 colonies/mL (clinically insignificant growth based on current clinical standards) [facility] Organism (CLINICALLY INSIGNIFICANT GROWTH [facility] Urine, clean voided 04/23/2021 4:16 PM HAND II BLOCKER 04/23/2021 4:49 PM HAND II BLOCKER Narrative [facility] - 04/24/2021 5:33 PM HAND II BLOCKER Testing performed by [facility] ([phone]) us Suzette Rogers MD LAB MICROBIOLOGY - GENERAL ORD ERABLES Final Result [facility] Department [place] [address] documented in this encounter Visit Diagnoses Diagnosis LIZET (stress urinary incontinence), male documented in this encounter Care Teams Assistant Portfolio Manager Relationship Specialty Start Date End Date Natasha Bates PA [address] [place] [id number] PCP - General Physician Wringer Operator 10/08/19 documented as of this encounter
--- OUTSIDE RECORDS SUMMARY | 2024-05-22 05:52 | XMS_ITS | Encounter Summary ---
Author Organization [facility] Healthcare Address [address] [place] [address] Care Team Providers Care Bridge Rigger Name Role Phone Natasha Bates Primary Care Provider [phone] Reason for Referral * Diagnostic Imaging (Routine) - Closed Specialty Diagnoses / Procedures Referred By Malena sagastume Referred To Contact Diagnoses Cuff erosion of artificial urinary sphincter, initial encounter (HCC) Procedures FL Voiding Urethrocystogram and Retrograde Urethrogram (C) Suzette Rogers MD [address] [address] Phone: tel: fax: [address] [address] Referral ID Status Reason Start Date Expiration Date Visits Re quested Visits Authorized [id number] Closed 01/23/2021 02/22/2022 1 1 Reason for Visit * Diagnostic Imaging (Routine) - Closed Specialty Diagnoses / Procedures Referred By Malena sagastume Referred To Contact Diagnoses Cuff erosion of artificial urinary sphincter, initial encounter (HCC) Procedures FL Voiding Urethrocystogram and Retrograde Urethrogram (C) Suzette Rogers MD [address] [address] Phone: tel: fax: [facility] [address] [phone] Referral ID Status Reason Start Date Expiration Date Visits Re quested Visits Authorized [id number] Closed 01/23/2021 02/22/2022 1 1 Encounter Details Date Type Department Care Team (Late st Contact Info) Description 02/24/2021 12:43 PM CDT - 02/24/2021 11:59 PM CDT Hospital Encounter [facility] [address] [address] Suzette Rogers MD [address] [facility] [address] [place] [address] Cuff erosion of artificial urinary sphincter, initial encounter ([facility]) Discharge Disposition: Discharge to home or self [...] on file 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 Gender Identity Not on file Sexual Orientation [...] Take 1 capsule by mouth every morning furosemide (LASIX) 20 mg tabletIndication s:Edema Take 20 mg by mouth daily as needed gabapentin (NEURONTIN) 600 mg tabletIndication s:Neuropathic Pain Take 600-1,200 mg by mouth 2 (two) times a day as needed ibuprofen (ADVIL,MOTRIN) 600 mg tablet Take 1 tablet (600 mg total) by mouth every 6 (six) hours as needed for pain for up to 20 doses 20 tablet 01/30/2021 multivitamin tabletIndication s:Vitamin Deficiency Take 1 tablet by mouth every morning oxyCODONE (ROXICODONE) 5 mg immediate release tabletIndication s:Pain Take 1 tablet (5 mg total) by mouth every 6 (six) hours as needed for pain for up to 10 doses 10 tablet 01/30/2021 UNABLE TO FIND Administer into each nostril nightly 3 L Home oxygen with CPAP acetaminophen (TYLENOL) 325 mg tablet Take 650 mg by mouth as needed for pain 11/07/2019 1 carvediloL (COREG) 12.5 mg tabletIndication s:hypertension Take 12.5 mg by mouth 2 (two) times a day with meals 01/06/2021 2 oxybutynin (DITROPAN) 5 mg tablet Take 1 tablet (5 mg total) by mouth 3 (three) times a day as needed (bladder spasms) for up to 20 doses 20 tablet 01/30/2021 2 phenazopyridine (PYRIDIUM) 100 mg tablet Take 1 tablet (100 mg total) by mouth 2 (two) times a day as needed for urinary pain 6 tablet 01/31/2021 2 solifenacin (VESIcare) 10 mg tabletIndication s:OAB (overactive bladder) Take 1 tablet (10 mg total) by mouth daily 30 tablet 02/13/2021 2 documented as of this encounter Discharge Disposition Disposition Code Departure Means Destination Discharge to home or self care documented in this encounter Plan of Treatment Not on file documented as of this encounter Procedures Procedure Name Priority Date/Time Associated Diagnosis Comments FL VOIDING URETHROCYSTOGRAM AND RETROGRADE URETHROGRAM (C) Schedule Routine, Read Routine (OP Routine) 02/24/2021 2:01 PM CDT Cuff erosion of artificial urinary sphincter, initial encounter (HCC) documented in this encounter Results * FL Voiding Urethrocystogram and Retrograde Urethrogram (C) (02/24/2021 2:01 PM CDT) Anatomical Region Laterality Modality Body, Pelvis N/A Radio Fluoroscop y 02/24/2021 2:20 PM CDT Impressions 02/24/2021 2:42 PM CDT 1. Postsurgical changes of artificial urethral sphincter removal without evidence of urethral leak or extravasation. 2. Mild urethral narrowing of the mid penile presumably at the site of prior artificial urethral sphincter cuff. Dictated by: Mayank Mcclain M.D. The radiology attending physician has personally reviewed this study, and had reviewed and/or edited this written report and agrees with it. Electronically signed by: Spike Pickett M.D. 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 TECHNIQUE: A education administrator radiograph of the pelvis was obtained. Using sterile technique, the urethral meatus was then cannulated with a pediatric feeding tube inserted alongside an indwelling Avila catheter. ??Cysto-Conray was then instilled into the urethra in a retrograde fashion and multiple fluoroscopic images obtained. The bladder was allowed to fill via gravity through the indwelling Avila catheter, and the catheter removed. The patient was then instructed to void, and multiple fluoroscopic images obtained. The patient tolerated the procedure well without complication. Dr. Spike Pickett M.D., the attending radiologist, was present from the beginning to the end of the procedure. FINDINGS: Observer Electrical Prospecting image demonstrates indwelling Avila catheter. There are degenerative changes of the lumbar spine. Urethra: The pericatheter retrograde urethrogram demonstrates a small mild urethral narrowing of the mid penile urethra, presumably the site of previous artificial urethral sphincter. This measures approximately 8 mm in length and is not urodynamically significant. No leak is identified. Bladder: There are multiple punctate bladder trabecula, which correlate to the appearance the bladder on prior CT abdomen pelvis. No bladder leak is identified. 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 TECHNIQUE: A education administrator radiograph of the pelvis was obtained. Using sterile technique, the urethral meatus was then cannulated with a pediatric feeding tube inserted alongside an indwelling Avila catheter. Cysto-Conray was then instilled into the urethra in a retrograde fashion and multiple fluoroscopic images obtained. The bladder was allowed to fill via gravity through the indwelling Avila catheter, and the catheter removed. The patient was then instructed to void, and multiple fluoroscopic images obtained. The patient tolerated the procedure well without complication. Dr. Spike Pickett M.D., the attending radiologist, was present from the beginning to the end of the procedure. FINDINGS: Observer Electrical Prospecting image demonstrates indwelling Avila catheter. There are degenerative changes of the lumbar spine. Urethra: The pericatheter retrograde urethrogram demonstrates a small mild urethral narrowing of the mid penile urethra, presumably the site of previous artificial urethral sphincter. This measures approximately 8 mm in length and is not urodynamically significant. No leak is identified. Bladder: There are multiple punctate bladder trabecula, which correlate to the appearance the bladder on prior CT abdomen pelvis. No bladder leak is identified. IMPRESSION: 1. Postsurgical changes of artificial urethral sphincter removal without evidence of urethral leak or extravasation. 2. Mild urethral narrowing of the mid penile presumably at the site of prior artificial urethral sphincter cuff. Dictated by: Mayank Mcclain M.D. The radiology attending physician has personally reviewed this study, and had reviewed and/or edited this written report and agrees with it. Electronically signed by: Spike Pickett M.D. Suzette Rogers MD [facility] Fin al Result documented in this encounter Visit Diagnoses Diagnosis Cuff erosion of artificial urinary sphincter, initial encounter (HCC) documented in this encounter Administered Medications Inactive Administered Medications - up to 3 most recent administrations Medication Order MAR Action Action Date Dose Rate Site iothalamate meglumine (CYSTO-CONRAY II) 17.2 % urinary solution 325 mL 325 mL, retrograde into bladder, Once in imaging, contrast, Starting on Tue02/24/21 at 1330, For 1 dose Contrast Given 02/24/2021 1:30 PM CDT 325 mL iothalamate meglumine (CYSTO-CONRAY II) 17.2 % urinary solution 40 mL 40 mL, urethral, Once in imaging, contrast, Starting on Tue02/24/21 at 1330, For 1 dose Contrast Given 02/24/2021 1:30 PM CDT 40 mL documented in this encounter Care Teams Bridge Rigger Relationship Specialty Start Date End Date Natasha Bates PA [address] [place] [address] PCP - General Physician Director Of Curriculum 10/08/19 documented as of this encounter
--- OUTSIDE RECORDS SUMMARY | 2024-05-22 05:52 | XMS_ITS | Encounter Summary ---
Author Organization [facility] Address [address] [place] [address] Phone Care Team Providers Care Air Pollution Control Engineer Name Role Phone Natasha Bates Primary Care Provider [phone] Encounter Details Date Type Department Care Team (Late st Contact Info) Description 06/03/2021 Telephone [facility] Urology [address] [place] [address] Suzette Rogers MD [address] [facility] [address] [place] [address] Social History Tobacco Use Types [...] file 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 assisted living/alf facility, fci, alf)?: No Have you tested positive for COVID-19 within the last 14 days? No, had a negative COVID test on 05/25/2021??pre-surgical. Have you previously tested positive for COVID-19? No ?? 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 S ASSISTANT ENTERTAINMENT AND MEDIA documented in this encounter Plan of Treatment Not on file documented as of this encounter Visit Diagnoses Not on filedocumented in this encounter Care Teams Air Pollution Control Engineer Relationship Specialty Start Date End Date Natasha Bates PA [address] [place] [address] PCP - General Physician Stump Blower 10/08/19 documented as of this encounter
--- OUTSIDE RECORDS SUMMARY | 2024-05-22 05:52 | XMS_ITS | Encounter Summary ---
Author Organization [facility] Healthcare Address [address] [place] [address] Care Team Providers Care Medical Reviewer Name Role Phone Natasha Bates Primary Care Provider [phone] Encounter Details Date Type Department Care Team (Late st Contact Info) Description 05/27/2021 11:52 AM WOOD AND HARDWARE OUTFITTER Anesthesia Event [facility] [address] [place] [address] [place] [address] [place] [address] Ranjana Romero, MARY [address] [facility] [phone] [place] [address] Anesthesia Record Procedure Summary Procedure Name Responsible Anesthesiologist Anesthesia Start Time Anesthesia Stop Time PLACEMENT ARTIFICIAL SPHINCTER Bobo Jerome MD 05/27/21 1152 05/27/21 1452 Events Date Time Event Comment 05/27/2021 1043 In Preop 1105 1107 AN Equip Check 1152 In Room 1152 An Start 1154 An Start Data 1155 An Induction The patient was reevaluated immediately before moderate or deep sedation use and before anesthesia induction. 1156 An Intubation 1158 Anesthesia Ready 1226 Proc Start 1227 Incision Start 1437 Proc Fin 1440 An Extubation 1442 an stop data 1442 Out of Room 1452 Handoff to RN I completed my handoff to the receiving nurse during which we: 1. Patient identified 2. Responsible provider identified 3. Pertinent medical history reviewed 4. Procedure type and surgical course discussed 5. Intraoperative anesthetic management and any significant issues discussed 6. Expectations and concerns for postop period discussed 7. Questions solicited from receiving nurse 8. Patient disposition at the time of handoff: PACU 1452 An Stop Meds Name Total midazolam 2 mg/2 mL 2 mg fentaNYL PF 200 mcg Lidocaine IV 1% PF 50 mg propofol 200 mg rocuronium 80 mg neostigmine syringe 1 mg/mL 3 mg glycopyrrolate 0.6 mg ampicillin-sulbactam 3 g vancomycin 1000 mg 2,000 mg Lactated Ringer's (LR) infusion 2,000 mL * Agents Name O2 N2O Sevoflurane Inspired Sevoflurane * Blood No blood administrations on file. Lines, Drains, and Airways Type Details Placement Removal RETIRED Surgical Site 01/30/21; 1418; Abdomen; 04/24/24 (Retired LDA, Removed/Completed by [facility] with LDA Utility); 1213 (Retired LDA, Removed/Completed by [facility] with LDA Utility) 01/30/21 1418 by Meaghan Andres RN 04/24/24 1213 by Discharge Provider, Automatic RETIRED Surgical Site 01/30/21; 1418; Perineum; 04/24/24 (Retired LDA, Removed/Completed by [facility] with LDA Utility); 1213 (Retired LDA, Removed/Completed by [facility] with LDA Utility) 01/30/21 1418 by Meaghan Andres RN 04/24/24 1213 by Discharge Provider, Automatic RETIRED Surgical Site 01/30/21; 1540; Right; Scrotum; 04/24/24 (Retired LDA, Removed/Completed by [facility] with LDA Utility); 1213 (Retired LDA, Removed/Completed by [facility] with LDA Utility) 01/30/21 1540 by Meaghan Andres RN 04/24/24 1213 by Discharge Provider, Automatic Urethral Catheter Placement Date: 01/30/21; Placement Time: 1543; Inserted by: Dr. Rogers; Type: Latex; Balloon Size: 10 mL; Urine Returned: Yes; Removal Date: 05/28/21; Removal Time: 1329 01/30/21 1543 by Meaghan Andres RN 05/28/21 1329 by Jessica Sheridan Peripheral IV Placement Date: 05/27/21; Placement Time: 1055; Catheter Size: 20 G; Orientation: Right; Location: Forearm; Site Prep: Chlorhexidine; Removal Date: 05/28/21; Removal Time: 1327 05/27/21 1055 by Joleen Craig RN 05/28/21 1327 by Jessica Sheridan ETT Placement Date: 05/27/21; Placement Time: 1220 (created via procedure documentation); Technique: Video laryngoscopy; Type: ETT - single; Single Lumen Tube Size: 8.5 mm; Cuffed: Yes; Laryngoscope: Avi; Blade Size: 4; Placement Verification: Auscultation; Removal Date: 05/27/21; Removal Time: 1440 05/27/21 1220 by Bobo Jerome MD 05/27/21 1440 by Bobo Jerome MD Urethral Catheter Placement Date: 05/27/21; Placement Time: 1245; Inserted by: Dr. Rogers; Type: Coude; Balloon Size: 10 mL; Urine Returned: Yes; Removal Date: 05/28/21; Removal Time: 1327 05/27/21 1245 by Spike Mccain RN 05/28/21 1327 by Jessica Sheridan RETIRED Surgical Site 05/27/21; 1426; Jessie-anal; dermabond; 04/24/24 (Retired LDA, Removed/Completed by [facility] with LDA Utility); 1213 (Retired LDA, Removed/Completed by [facility] with LDA Utility) 05/27/21 1426 by Spike Mccain RN 04/24/24 1213 by Discharge Provider, Automatic documented in this encounter Social History Tobacco [...] on file Legal Sex 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 WOOD AND HARDWARE OUTFITTER Gender Identity Not on file Sexual Orientation Not on file documented as of this encounter OR Notes * Anesthesia Postprocedure Evaluation - Calos Youngblood MD - 05/27/2021 4:36 PM CST Patient: Howie Delaney Procedure Summary Date: 05/27/21 Room / Location: [facility]PERATING [facility] 14 / [facility] Anesthesia Start: 1152 Anesthesia Stop: 1452 Procedures: PLACEMENT ARTIFICIAL SPHINCTER (N/A ) CYSTOSCOPY (N/A Urethra) Diagnosis: Male stress incontinence (Male stress incontinence [N39.3]) Surgeons: Suzette Rogers MD Responsible Provider: Bobo Jerome MD Anesthesia Type: general ASA Status: 3 Anesthesia Type: general Last vitals BP 110/56 Pulse 72 Temp (!) 35.6 ??C (96.08 ??F) Resp 12 SpO2 96% Anesthesia Post Evaluation Patient location during evaluation: PACU Patient participation: complete - patient participated Level of consciousness: fully awake Pain score: 4 Pain management: adequate Airway patency: adequate Evidence of recall: no Cardiovascular status: hemodynamically stable and acceptable Respiratory status: acceptable and room air Hydration status: acceptable Pt is: normothermic Nausea/Vomiting status: none No complications documented. AND HARDWARE OUTFITTER * Anesthesia Procedure Notes - Bobo Jerome MD - 05/27/2021 12:18 PM CSTAssociated Order(s): Airway Airway Patient location: OR Urgency: elective Indications for airway management: anesthesia Difficult airway: no Staff: Placed by: Anesthesiologist: Bobo Jerome MD Airway prep: Preoxygenated: yes Patient position: sniffing Spontaneous ventilation during airway: absent Sedation level during airway: GA Final airway details: Final airway type: endotracheal airway Tube type: ETT ETT size: 8.5 mm Cuffed: yes Technique used for successful ETT placement: video laryngoscopy Devices/Methods used in placement: intubating stylet Blade type: Avi Video blade type: Glidescope Blade size: 4 Cormack-Lehane (video): grade I - full view of glottis Cuff inflated with: air ETT to teeth: 24 cm Placement verified by: auscultation Airway secured with: silk tape AND HARDWARE OUTFITTER * Anesthesia Preprocedure Evaluation - Bobo Jerome MD - 05/14/2021 9:03 AM CST Images from the original note were not included. [facility] Preoperative Assessment and Planning Preoperative Evaluation Record Evaluation type/location: TPAP from [facility] Planned procedure site: [facility] OR Date: 05/14/21 NOTE: This note represents a preoperative evaluation initiated via telephone interview. NO PHYSICALEXAM was performed at the time of initial assessment. A physical exam may be added to this note anddocumented below. Anesthesia Evaluation Howie Delaney is a 55 y.o. 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 He is being evaluated prior to undergoing artificial sphincter placement. Past Medical History Information obtained from: patient and chart. Neurological Pertinent negatives: seizures; neuromuscular disease; CVA/stroke; TIA; CEA; ICA stenosis; dementia/mild cognitive impairment and carotid artery stent Cardiovascular + Hypertension Hypertension year diagnosed: 2010. Typical systolic BP - 120 Typical diastolic BP - 75 + CHF (TTE 11/2020- EF 75-80%) CHF Etiology: non-ischemic. Diastolic function: normal LVEF: >70%. + PAD/Aorta disease (seen by vascular 01/16/2021 for possible venous insufficiency 2/2 BLE edema, continue to wear compression stockings plan to check venous reflux study) - Pertinent negatives: CAD ; [place] ; CABG ; valvular heart disease; valve replacement; atrial fibrillation; arrhythmia; pacemaker/ICD; DVT/PE; drug- eluting stent(s); bare metal stent(s) and coronary angioplasty Comments: Last office visit with cardiology ANESTHESIOLOGY CRNA 08/25/2020, carvedilol decreased at this visit Respiratory + Sleep apnea (MIRELLA) (pressure 6-10) Prescribed device: PAP compliant and CPAP. + Pulmonary hypertension (OSH TTE 11/2020) Echo PA systolic: 37. RV function: normal. + O2 use outside the hospital - Rest O2: 0L/min. Sleep O2: 3L/min. Activity O2: 0L/min. Pertinent negatives: COPD; asthma and non-smoker Comments: Hospitalized 11/20/2020 for respiratory acidosis with hypoxia after falling asleep without CPAP machine, he had passed out/fell in kitchen, taken to OSH and CVA ruled out Hepatic / Heme + Liver disease (fatty liver) + History of anemia (last H&H 13.6/41.9 on 04/20/21) Pertinent negatives: history of thrombocytopenia and history of Sheila positive Gastrointestinal Pertinent negatives: GERD and hiatal hernia Renal / + Renal disease (nephrology Dr Sauer, last office visit 02/18/2021, stage III CKD with baseline creatinine 1.3-1.4. Most recent Cr 1.33 on 04/20/21) - CKD Pertinent negatives: dialysis and nephrolithiasis Musculoskeletal/Pain + Chronic pain (cervical stenosis, DDD) - neck pain and back pain. Pertinent negatives: chronic opioid use and previous treatment for opioid use disorder Comments: Fall in 11/2020 resulting in right fibula fracture Endocrine / Other + Obesity (BMI >30) (BMI 38.11) Pertinent negatives: diabetes mellitus; thyroid disease; cancer history; rheumatological disease and transplanted organ Functional Capacity Functional capacity: <4 METs Comments: Walks 0.5-1 mile daily Can climb 2 flights of stairs without CP, however would have SOB, however would recover quickly Functional capacity has improved since weight loss. Review of Systems + SOB (with activity such as climbing stairs, chronic and unchanged) + palpitations (occasionally, last palpitations prior to 07/2020) + orthopnea (sleeps at an incline with adjustable bed) + pedal edema (Left leg- chronic and unchanged) + previous transfusion (06/24 hematuria, denies reactions) + syncope (11/2020 when getting up in middle of night r/t hypotensive episod) + chronic pain (cervical stenosis, DDD) + numbness/tingling (tingling to left arm, orthopedic following for pinched ulnar nerve) + vision loss (wears corrective lenses) Pertinent negatives: productive cough; wheezing; recent cold/flu; fever; chest pain; PND; Sickle Cell disease/trait; transfusion reaction; melena/hematochezia; easy bruising; bleeding problems; dizziness; muscle weakness; hard of hearing; heartburn; nausea; dysphagia; diarrhea; dentures/partials; chipped/loose teeth; abdominal pain; diaphoresis and no unexpected weight change Comments: Intentional weight loss of 100 pounds since gastric bypass surgery in 07/2020 Urinary incontinence PAT Summary and Plans Cardiac risk classification of planned procedure: low cardiac risk. Preoperative assessment status: outside records required. Initial preoperative evaluation discussed with: Jamarcus Cid MD Additional comments: Howie Delaney is a 55 y.o. male who is being evaluated prior to undergoing a low cardiac risk surgery. Revised Cardiac Risk Index factors are (history of CHF) for a total RCRI of 1 out of 6. Functional capacity is <4 METs. Obstructive sleep apnea (MIRELLA) screening status is HIGH RISK due to known MIRELLA. MIRELLA order set initiated. This assessment was performed via telephone. Therefore the physical exam has been deferred to the day of surgery team. The patient was provided with preoperative instructions for their medications. The patient was instructed to shower/bathe the night prior and the morning of the planned procedure using an antibacterial soap. Patient instructions were provided electronically sent via [employer].Instructed verbally also. Patient verbalized understanding of preoperative plan. Blood bank needs for day of procedure: No type and screen needed Pending labs/tests include: None Labs 04/20/21 without significant findings from an anesthesia standpoint. 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 The patient currentlyhas no concerning symptoms of COVID19. . Patient's COVID-19 vaccination status is Fully vaccinated.Documentation of vaccination status is available in the Epic Immunization tab. . Plan for pre-procedure COVID19 testing: Telephone assessment performed. Request placed for pre-procedure COVID19 testing to be performed on 05/25/21. [facility] will place the order for testing. Result to be reviewed by surgeon's office. Patient with syncopal episode 11/2020 when waking up in night to go to the bathroom. Admitted to [facility], CVA and cardiac etiology ruled out. Syncopal attributed to hypotensive episode patient with significant weight loss and HTN medications had not been adjusted. Bps now normalized and [id number] since decreasing BP medication. TPAP assessment complete. Preoperative evaluation performed by Ranjana Romero NP on 05/14/21 at 9:10 AM. Patient Active Problem List Diagnosis ??? Chest pain ??? Hyperlipidemia ??? Essential hypertension ??? Urethral erosion ??? Male stress incontinence Past Medical History: Diagnosis Date ??? Anemia [...] ??? URINARY SPHINCTER REVISION 01/30/2021 removal No Known Allergies Med List Status: Nurse Complete Set By: Sheba Zhu RN at 05/13/2021 10:45 AM Taking? Last Dose Start Date End Date Provider acetaminophen (TYLENOL) 500 mg tablet Past Week 01/30/21 -- Jeffry Conroy MD Take 2 tablets (1,000 mg total) by mouth every 6 (six) hours as needed for pain allopurinoL (ZYLOPRIM) 100 mg tablet 05/13/2021 -- -- Krysta Aldridge MD atorvastatin (LIPITOR) 40 mg tablet 05/12/2021 -- -- Krysta Aldridge MD CALCIUM ORAL 05/13/2021 -- -- Krysta Aldridge MD carvediloL (COREG) 12.5 mg tablet Not Taking 01/06/21 -- Krysta Aldridge MD cyanocobalamin, vitamin B-12, (VITAMIN B-12 ORAL) 05/13/2021 -- -- Krysta Aldridge MD FLUoxetine (PROzac) 20 mg capsule 05/12/2021 04/25/21 -- Krysta Aldridge MD furosemide (LASIX) 20 mg tablet Past Week -- -- Krysta Aldridge MD gabapentin (NEURONTIN) 600 mg tablet 05/12/2021 -- -- Krysta Aldridge MD ibuprofen (ADVIL,MOTRIN) 600 mg tablet Not Taking 01/30/21 -- Jeffry Conroy MD Take 1 tablet (600 mg total) by mouth every 6 (six) hours as needed for pain for up to 20 doses Patient not taking: Reported on 05/13/2021 loratadine (CLARITIN) 10 mg tablet Past Week 04/16/21 -- Krysta Aldridge MD multivitamin tablet 05/13/2021 -- -- Krysta Aldridge MD oxybutynin (DITROPAN) 5 mg tablet Not Taking 01/30/21 -- Jeffry Conroy MD Take 1 tablet (5 mg total) by mouth 3 (three) times a day as needed (bladder spasms) for up to 20 doses Patient not taking: Reported on 05/13/2021 oxyCODONE (ROXICODONE) 5 mg immediate release tablet Not Taking 01/30/21 -- Jeffry Conroy MD Take 1 tablet (5 mg total) by mouth every 6 (six) hours as needed for pain for up to 10 doses Patient not taking: Reported on 05/13/2021 phenazopyridine (PYRIDIUM) 100 mg tablet Not Taking 01/31/21 -- Toby Ibrahim MD Take 1 tablet (100 mg total) by mouth 2 (two) times a day as needed for urinary pain Patient not taking: Reported on 05/13/2021 solifenacin (VESIcare) 10 mg tablet () Not Taking 02/13/21 04/14/21 Suzette Rogers MD Take 1 tablet (10 mg total) by mouth daily Patient not taking: Reported on 05/13/2021 UNABLE TO FIND 05/12/2021 -- -- Krysta Aldridge MD Veltassa packet 05/12/2021 04/06/21 -- ProviderKrysta MD No current facility-administered medications for this encounter. Current Outpatient Medications: ??? acetaminophen (TYLENOL) 500 mg tablet ??? allopurinoL (ZYLOPRIM) 100 mg tablet ??? atorvastatin (LIPITOR) 40 mg tablet ??? CALCIUM ORAL ??? cyanocobalamin, vitamin B-12, (VITAMIN B-12 ORAL) ??? FLUoxetine (PROzac) 20 mg capsule ??? furosemide (LASIX) 20 mg tablet ??? gabapentin (NEURONTIN) 600 mg tablet ??? loratadine (CLARITIN) 10 mg tablet ??? multivitamin tablet ??? UNABLE TO FIND ??? Velt[place] packet ??? carvediloL (COREG) 12.5 mg tablet ??? ibuprofen (ADVIL,MOTRIN) 600 mg tablet ??? oxybutynin (DITROPAN) 5 mg tablet ??? oxyCODONE (ROXICODONE) 5 mg immediate release tablet ??? phenazopyridine (PYRIDIUM) 100 mg tablet ??? solifenacin (VESIcare) 10 mg tablet Social History Tobacco Use Smoking Status Never Smoker Smokeless Tobacco Never Used Substance and Sexual Activity Alcohol Use No Substance and Sexual Activity Drug Use Never History reviewed. No pertinent family history. There were no vitals filed for this visit. Relevant diagnostics: ECG(s): 11/20/20:(OSH) Normal sinus rhythm, possible LAE ?? Echocardiogram(s): 11/20/20: (OSH) SUMMARY: Technically difficult/suboptimal echo LV systolic function is hyperdynamic with an EF of 75-80%. The LV diastolic function is normal, consistent with normal LV filling pressures. Normal RV systolic function. No significant valvular dysfunction. Mild pulmonary hypertension, estimated PASP is 37 mmHg. There is no evidence of ASD/PFO by color Doppler and bubble study interrogation. ?? Stress test(s): N/A ?? Cardiac catheterization(s): N/A ?? PFT(s): OS ([facility] Everywhere) 04/30/2020: IMPRESSION: 1. ??Moderate Restrictive Ventilatory Limitation - low ERV is suggestive of extraparenchymal restriction. 2. No bronchodilator response, however this does not preclude the use of bronchodilators 3. There is no previous study available for comparison ?? Vascular studies: N/A ?? Other: OS ([facility] Everywhere) MRI Brain 11/20/2020: IMPRESSION: 1. No acute intracranial hemorrhage or evidence of acute ischemic infarct. ?? OS ([facility] Everywhere) CT Angio Brain Neck Stroke 11/20/2020: IMPRESSION: 1.Occlusion of left MCA M3 branch in the distal sylvian fissure. Otherwise, no abnormality of the intracranial arteries. 2.No stenosis of the cervical segment of carotid and vertebral arteries. The findings were discussed with Dr. Turner at 7:[address] Dudley. This report was electronically signed by DIVINA DUDLEY ??on 11/20/2020 8:00 AM . ADDENDUM #1 Upon further review, the left??MCA branch vessel that was originally thought to be occluded is probably a vein. ?? OS ([facility] Everywhere) Holter Read 14 day 08/19/2020: Summary: *The predominant rhythm was sinus bradycardia to sinus tachycardia with sinus arrhythmia. *The Maximum Heart Rate recorded was??128 bpm, Day :34:20 am, the Minimum Heart [...] ectopic atrial beats. Conclusion: No sustained arrhythmias. PT: No results found for requested labs within last 720 hours. INR: No results found for requested labs within last 720 hours. APTT: No results found for requested labs within last 720 hours. Hgb A1C: No results found for requested labs within last 720 hours. CBC RBC: No results found for requested labs within last 720 hours. RDW: No results found for requested labs within last 720 hours. MCHC: No results found for requested labs within last 720 hours. MCH: No results found for requested labs within last 720 hours. MCV: No results found for requested labs within last 720 hours. Hct: No results found for requested labs within last 720 hours. Hgb: No results found for requested labs within last 720 hours. WBC: No results found for requested labs within last 720 hours. MPV: No results found for requested labs within last 720 hours. Platelets: No results found for requested labs within last 720 hours. RDW CV: No results found for requested labs within last 720 hours. RDW Sd: No results found for requested labs within last 720 hours. BMP Glucose: No results found for requested labs within last 720 hours. Calcium: No results found for requested labs within last 720 hours. Sodium: No results found for requested labs within last 720 hours. Potassium: No results found for requested labs within last 720 hours. CO2: No results found for requested labs within last 720 hours. Chloride: No results found for requested labs within last 720 hours. BUN: No results found for requested labs within last 720 hours. Creatinine: No results found for requested labs within last 720 hours. Alexis index score: 95 DOS Physical Exam Medical history, medications, and allergies reviewed. Attestation: This PAT evaluation Airway Exam: Mallampati: IV Cervical ROM: FROM Patient presents with poor mouth opening. Cardiovascular Exam: Rate: regular Rhythm: regular Pulmonary Exam: LCTA, bilat Anesthesia Plan ASA 3 My patient is approved for the Anesthesia Controlled Medication protocol when under care of a SUPERVISOR FERTILIZER Planned anesthesia: General Informed Consent: Anesthesia plan and risks discussed with patient. Consent and Attending signature: I and/or my designee have discussed the anesthesia plan, benefits, possible alternatives, parental presence at time of induction (if indicated), and clinically relevant risks that may include dental injury, unintentional awareness, and/or other complications. The patient and/or parent/legal guardian understand, and agree to proceed. All questions answered. AND HARDWARE OUTFITTER AND HARDWARE OUTFITTER documented in this encounter Plan of Treatment Not on file documented as of this encounter Procedures Procedure Name Priority Date/Time Associated Diagnosis Comments GA AN PROCEDURE PLACEHOLDER Routine 05/27/2021 12:18 PM WOOD AND HARDWARE OUTFITTER GA AN ELECTIVE ENDOTRACHEAL AIRWAY Routine 05/27/2021 12:18 PM WOOD AND HARDWARE OUTFITTER documented in this encounter Results * GA AN ELECTIVE ENDOTRACHEAL AIRWAY, GA AN PROCEDURE PLACEHOLDER (05/27/2021 12:18 PM WOOD AND HARDWARE OUTFITTER) Narrative Bobo Jerome MD - 05/27/2021 12:18 PM WOOD AND HARDWARE OUTFITTER Bobo Jerome MD ? 05/27/2021 12:20 PM Airway Patient location: OR Urgency: elective Indications for airway management: anesthesia Difficult airway: no Staff: Placed by: Anesthesiologist: Bobo Jerome MD Airway prep: Preoxygenated: yes Patient position: sniffing Spontaneous ventilation during airway: absent Sedation level during airway: GA Final airway details: Final airway type: endotracheal airway Tube type: ETT ETT size: 8.5 mm Cuffed: yes Technique used for successful ETT placement: video laryngoscopy Devices/Methods used in placement: intubating stylet Blade type: Avi Video blade type: Glidescope Blade size: 4 Cormack-Lehane (video): grade I - full view of glottis Cuff inflated with: air ETT to teeth: 24 cm Placement verified by: auscultation Airway secured with: silk tape us Bobo Jerome MD ANESTHESIA ORDERABLES Fin al Result documented in this encounter Visit Diagnoses Not on filedocumented in this encounter Administered Medications Inactive Administered Medications - up to 3 most recent administrations Medication Order MAR Action Action Date Dose Rate Site ampicillin-sulbactam (UNASYN) injection intravenous, As needed, Starting on Tue05/27/21 at 1130, Anesthesia Intra-op Given 05/27/2021 11:30 AM WOOD AND HARDWARE OUTFITTER 3 g fentaNYL (SUBLIMAZE) preservative free injection intravenous, As needed, Starting on Tue05/27/21 at 1155, Anesthesia Intra-op Given 05/27/2021 2:07 PM WOOD AND HARDWARE OUTFITTER 25 mcg Given 05/27/2021 1:54 PM WOOD AND HARDWARE OUTFITTER 25 mcg Given 05/27/2021 1:28 PM WOOD AND HARDWARE OUTFITTER 50 mcg glycopyrrolate (ROBINUL) injection intravenous, Administer over 1 Minutes, As needed, Starting on Tue05/27/21 at 1425, Anesthesia Intra-op Given 05/27/2021 2:25 PM WOOD AND HARDWARE OUTFITTER 0.6 mg Lactated Ringer's (LR) infusion 30 mL/hr, intravenous, Continuous, Starting on Tue05/27/21 at 1115, For 4 hours, Pre-Op, Use a 500 ml bag for End Stage Renal Disease Patients. Discontinue if fluid still running once patient arrives to floor. New Bag 05/27/2021 2:22 PM WOOD AND H[employer]WARE OUTFITTER New Bag 05/27/2021 1:12 PM WOOD AND HARDWARE OUTFITTER Restarted 05/27/2021 12:17 PM WOOD AND HARDWARE OUTFITTER lidocaine PF (XYLOCAINE) 10 mg/mL (1 %) preservative free injection intravenous, As needed, Starting on Tue05/27/21 at 1155, Anesthesia Intra-op Given 05/27/2021 11:55 AM WO[employer] AND HARDWARE OUTFITTER 50 mg midazolam (VERSED) 1 mg/mL injection intravenous, As needed, Starting on Tue05/27/21 at 1150, Anesthesia Intra-op Given 05/27/2021 11:50 AM WO[employer] AND HARDWARE OUTFITTER 2 mg neostigmine injection intravenous, Administer over 3 Minutes, As needed, Starting on Tue05/27/21 at 1425, Anesthesia Intra-op Given 05/27/2021 2:25 PM WO[employer] AND HARDWARE OUTFITTER 3 mg propofoL (DIPRIVAN) 10 mg/mL IV intravenous, As needed, Starting on Tue05/27/21 at 1155, Anesthesia Intra-op Given 05/27/2021 11:55 AM WO[employer] AND HARDWARE OUTFITTER 200 mg rocuronium (ZEMURON) injection intravenous, As needed, Starting on Tue05/27/21 at 1155, Anesthesia Intra-op Given 05/27/2021 1:19 PM WO[employer] AND H[employer]WARE OUTFITTER 10 mg Given 05/27/2021 12:31 PM WO[employer] AND HARDWARE OUTFITTER 20 mg Given 05/27/2021 11:55 AM WO[employer] AND HARDWARE OUTFITTER 50 mg vancomycin (VANCOCIN) solution intravenous, As needed, Starting on Tue05/27/21 at 1100, Anesthesia Intra-op Given 05/27/2021 11:00 AM WO[employer] AND HARDWARE OUTFITTER 2,000 m g documented in this encounter Care Teams Medical Reviewer Relationship Specialty Start Date End Date Natasha Bates PA [address] [place] [address] PCP - General Physician Road Mechanic 10/08/19 documented as of this encounter
--- OUTSIDE RECORDS SUMMARY | 2024-05-22 05:52 | XMS_ITS | Encounter Summary ---
Author Organization [facility] Healthcare Address [address] [place] [address] Care Team Providers Care Subwarehouse Supervisor Name Role Phone Natasha Bates Primary Care Provider [phone] Encounter Details Date Type Department Care Team (Late st Contact Info) Description 06/02/2021 3:10 PM FRAME POLISHER Lab [address] [address] Social History Tobacco Use Types Packs/Day Years [...] any clubs o r organizations such as synagogue groups, unions, fraternal or athletic groups, or [...] on file Legal Sex 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 FRAME POLISHER Gender Identity Not on file Sexual Orientation Not on file documented as of this encounter Plan of Treatment Not on file documented as of this encounter Procedures Procedure Name Priority Date/Time Associated Diagnosis Comments URINE CULTURE Routine 06/02/2021 2:42 PM FRAME POLISHER documented in this encounter Results * Urine culture Urine, clean voided (06/02/2021 2:42 PM FRAME POLISHER) Report Final Report: No growth [facility] Urine, clean voided 06/02/2021 2:42 PM FRAME POLISHER 06/02/2021 5:15 PM FRAME POLISHER Narrative YO [facility] - 06/04/2021 7:05 AM FRAME POLISHER Testing performed by [facility] Microbiology Laboratory ([phone]) us Suzette Rogers MD LAB MICROBIOLOGY - GENERAL ORD ERABLES Final Result [facility] [place] [address] documented in this encounter Visit Diagnoses Not on filedocumented in this encounter Care Teams Subwarehouse Supervisor Relationship Specialty [place] [address] [place] [id number] PCP - General Physician Clinical Specialist Vascular 10/08/19 documented as of this encounter
--- OUTSIDE RECORDS SUMMARY | 2024-05-22 05:52 | XMS_ITS | Encounter Summary ---
Author Organization [facility] Healthcare Address [address] [place] [address] Care Team Providers Care Hadoop Consultant Name Role Phone Natasha Bates Primary Care Provider [phone] Encounter Details Date Type Department Care Team (Late st Contact Info) Description 05/27/2021 11:30 AM EXPORT SALES MANAGER - 05/27/2021 2:00 PM EXPORT SALES MANAGER Surgery [facility] Operating Room [address] [place] [address] Suzette Rogers MD [address] [facility] [address] [place] [address] PLACEMENT ARTIFICIAL SPHINCTER Surgery Details Date/Time Status Location OR Service Patient Class Case Cl ass Case Type Trauma Case? 05/27/2021 11:30 AM Posted [facility] OPERATING ROOM OR 14 Urology Outpatient in Bed Elective Panel 1 Procedure LRB Anes Op Region Wound Class Comments PLACEMENT ARTIFICIAL SPHINCTER N/A General Class I - Clean CYSTOSCOPY N/A General Urethra Class II - Colby an Contaminated Surgeon Surgeon Role Service Panel Suzette Rogers MD Primary Urology 1 Bob Martinez MD Resident - [facility] 1 Special Needs [facility] AMS rep present for the case: Flexible cysto; irrigant antibiotics; sterile spray bottle documented in this encounter Social History Tobacco [...] on file Legal Sex 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 EXPORT SALES MANAGER Gender Identity Not on file Sexual Orientation Not on file documented as of this encounter Last Filed Vital Signs Vital Sign Reading Time Taken Comments Blood Pressure 129/75 05/27/2021 11:00 AM EXPORT SALES MANAGER Pulse 71 05/27/2021 11:00 AM EXPORT SALES MANAGER Temperature 36.5 ??C (97.7 ??F) 05/27/2021 11:[address] Respiratory Rate 21 05/27/2021 11:00 AM EXPORT SALES MANAGER Oxygen Saturation 97% 05/27/2021 11:00 AM EXPORT SALES MANAGER Inhaled Oxygen Concentration - - Weight 127.5 kg (281 lb) 05/27/2021 11:00 AM EXPORT SALES MANAGER Height 182.9 cm (6') 05/27/2021 11:00 AM EXPORT SALES MANAGER Body Mass Index 38.11 05/27/2021 11:00 AM EXPORT SALES MANAGER documented in this encounter Discharge Summaries * Bob Martinez MD - 05/28/2021 8:11 AM CST Inpatient Discharge Summary BRIEF OVERVIEW Admitting Provider: Suzette Rogers MD Discharge Provider: Suzette Rogers MD Primary Care Physician at Discharge: Natasha Bates PA [phone] Admission Date: 05/27/2021 Discharge Date: 05/28/2021 Admission Location: [facility] Problems/Diagnoses: Principal Problem: Male stress incontinence Resolved Problems: No resolved hospital problems. DETAILS OF HOSPITAL STAY Presenting Problem/History of Present Illness: 55 y.o. male with stress urinary incontinence. Hospital Course: Howie Delaney underwent Artificial urinary sphincter placement on 05/27/21 by Suzette Rogers MD, was admitted to the urology floor after stabilization in the PACU. Souza catheter in place draining clear yellow urine. Scrotal dressing dry and intact with mesh panties in place for support. IV fluids for hydration. IV antibiotics were administered. Vital signs closely monitored, pain controlled with multimodal agents. He was given a regular diet and tolerated well. POD# 1 pain controlled on oral agents, VSS, ambulating at baseline, tolerating regular diet. Souza catheter was removed, patient continued to leak per baseline. Provided with education on locating pump in scrotum and gently pulling downward 2-3 times per day to prevent retraction while healing. He was instructed not to activate the device until he see his surgeon for follow up and is cleared to do so. Discharged home on 05/28/21 on antibiotic of Bactrim for 7 days at home. The patient will follow up with Suzette Rogers MD in clinic in 6 weeks. Strict return precautions were provided and good understanding was confirmed. Active Issues Requiring Follow-up: AUS activation Test Results Pending at Discharge: Operative Procedures Performed: Procedure(s): PLACEMENT ARTIFICIAL SPHINCTER CYSTOSCOPY Other Procedures: None Pertinent Test Results: None Discharge Details Physical Exam at Discharge: Discharge Condition: good Pulse: 57 Resp: 16 BP: 117/58 Temp: 36.1 ??C (96.9 ??F) Weight: 127.5 kg (281 lb) Pertinent Exam Findings at Discharge: see progress note from day of discharge Discharge Disposition: Code Status at Discharge: Full Code Discharge Instructions: DISCHARGE INSTRUCTIONS FOR ARTIFICIAL URINARY SPHINCTER Call your doctor if: * You have a fever higher than 101.5 F (38.6 C). * You have nausea, vomiting or diarrhea. * Your pain medicine is not helping your pain. * You feel dizzy, very tired or like you may faint. (It is normal to feel somewhat tired for 1-2 weeks after surgery.) * You have large blood clots in your urine. * You have pus or bright red drainage from your incision. * You have difficulty urinating. Call your surgeon???s office during regular business hours. If you need to speak to someone after hours or on weekends or holidays, call . Diet: At first eat a bland diet; avoiding foods that are high in fiber, have a lot of spices, or are highin fat. You can begin slowly eating these foods when you are feeling better. Activity: * Do NOT lift anything over 10 pounds for 4 weeks. * Do NOT drive or operate machinery if you are taking narcotic pain medicine. * Do NOT take baths or swim in pools for 4 weeks. * You may take showers. Gently wash over wounds with soap and water, and dab or pat dry with a towel. * Take short frequent walks every day. Climbing stairs is OK. Care Instructions: * Continued urine leaking is normal. You may need to wear pads until you go back to see your doctorand the device is activated. * Do NOT use the device until you have seen your doctor for a follow up visit in the clinic. * 2-3 times per day, locate the pump and gently pull down on your scrotum for 15-20 seconds where the pump is located. * Wear your scrotal support such as a jock strap or snug-fitting briefs or underwear every day to minimize swelling. * It is normal to have some swelling in your penis and scrotum. This should improve over the next few days. To minimize or reduce the swelling, supportive briefs or a jock strap should be worn. When sitting or lying, scrotal elevation with a pillow or rolled up towel will help. Special Instructions: Smoking increases wound healing time. Please refrain, or at least, reduce smoking for 4 weeks. If you would like a prescription for a nicotine patch, please contact your care provider who will be happy to help. ADDITIONAL INSTRUCTIONS: Pain Control You should expect to have some pain after your procedure. This is a normal part of the recovery process. The pain is more tolerable for some patients and less tolerable for others. When you are in pain: - Start by applying ice packs or heating pads and using over the counter medications such as acetaminophen (Tylenol) or ibuprofen (Advil or Motrin) unless otherwise specified by your doctor. - If your pain is still uncontrolled, you may take a stronger, precription medication that containsopioids. Take only as much of this medication [...] throwing them in the trash. FOLLOW UP: Suzette Mcdaniel MD would like to see you in 6 weeks. If you need to reschedule, please call . Future Appointments Date Time Provider Department Center 07/07/2021 11:00 AM Suzette Rogers MD [facility] Active issues requiring follow up: AUS activation Test results pending at discharge: none Discharge Medications: Current Medications TAKE these medications [...] capsule by mouth every morning For: supplement carvediloL 12.5 mg tablet Take 12.5 mg by mouth 2 (two) times a day with meals For: high blood pressure Commonly known as: COREG FLUoxetine 20 mg capsule Take 20 mg [...] by mouth every morning For: vitamin deficiency oxybutynin 5 mg tablet Take 1 tablet (5 mg total) by mouth 3 (three) times a day as needed (bladder spasms) for up to 20 doses Commonly known as: DITROPAN * oxyCODONE 5 mg immediate release tablet Take 1 tablet (5 mg total) by mouth every 6 (six) hours as needed for pain for up to 10 doses For: pain Commonly known as: ROXICODONE * oxyCODONE 5 mg immediate release tablet Take 1 tablet (5 mg total) by mouth every 6 (six) hours as needed for pain For: pain Commonly known as: ROXICODONE phenazopyridine 100 mg tablet Take 1 tablet (100 mg total) by mouth 2 (two) times a day as needed for urinary pain Commonly known as: PYRIDIUM solifenacin 10 mg tablet Take 1 tablet (10 mg total) by mouth daily Commonly known as: VESIcare sulfamethoxazole-trimethoprim 800-160 mg per tablet Take 1 tablet by mouth 2 (two) times a day for 7 days Commonly known as: BACTRIM DS UNABLE TO FIND Administer into each nostril [...] Future Appointments Date Time Provider Department Center 07/07/2021 11:00 AM Suzette Rogers MD [facility] Cosigned by Suzette Rogers MD at 06/03/2021 7:49 AM EXPORT SALES MANAGER RT SALES MANAGER RT SALES MANAGER documented in this encounter Discharge Instructions * Discharge Instructions* Bob Martinez MD - 05/28/2021 8:11 AM EXPORT SALES MANAGER DISCHARGE INSTRUCTIONS FOR ARTIFICIAL URINARY SPHINCTER Call your doctor if: * You have a fever higher than 101.5 F (38.6 C). * You have nausea, vomiting or diarrhea. * Your pain medicine is not helping your pain. * You feel dizzy, very tired or like you may faint. (It is normal to feel somewhat tired for 1-2 weeks after surgery.) * You have large blood clots in your urine. * You have pus or bright red drainage from your incision. * You have difficulty urinating. Call your surgeon???s office during regular business hours. If you need to speak to someone after hours or on weekends or holidays, call . Diet: At first eat a bland diet; avoiding foods that are high in fiber, have a lot of spices, or are highin fat. You can begin slowly eating these foods when you are feeling better. Activity: * Do NOT lift anything over 10 pounds for 4 weeks. * Do NOT drive or operate machinery if you are taking narcotic pain medicine. * Do NOT take baths or swim in pools for 4 weeks. * You may take showers. Gently wash over wounds with soap and water, and dab or pat dry with a towel. * Take short frequent walks every day. Climbing stairs is OK. Care Instructions: * Continued urine leaking is normal. You may need to wear pads until you go back to see your doctorand the device is activated. * Do NOT use the device until you have seen your doctor for a follow up visit in the clinic. * 2-3 times per day, locate the pump and gently pull down on your scrotum for 15-20 seconds where the pump is located. * Wear your scrotal support such as a jock strap or snug-fitting briefs or underwear every day to minimize swelling. * It is normal to have some swelling in your penis and scrotum. This should improve over the next few days. To minimize or reduce the swelling, supportive briefs or a jock strap should be worn. When sitting or lying, scrotal elevation with a pillow or rolled up towel will help. Special Instructions: Smoking increases wound healing time. Please refrain, or at least, reduce smoking for 4 weeks. If you would like a prescription for a nicotine patch, please contact your care provider who will be happy to help. ADDITIONAL INSTRUCTIONS: Pain Control You should expect to have some pain after your procedure. This is a normal part of the recovery process. The pain is more tolerable for some patients and less tolerable for others. When you are in pain: - Start by applying ice packs or heating pads and using over the counter medications such as acetaminophen (Tylenol) or ibuprofen (Advil or Motrin) unless otherwise specified by your doctor. - If your pain is still uncontrolled, you may take a stronger, precription medication that containsopioids. Take only as much of this medication [...] throwing them in the trash. FOLLOW UP: Suzette Mcdaniel MD would like to see you in 6 weeks. If you need to reschedule, please call . Future Appointments Date Time Provider Department Center 07/07/2021 11:00 AM Suzette Rogers MD [facility] Active issues requiring follow up: AUS activation Test results pending at discharge: none RT SALES MANAGER documented in this encounter Medications at Time [...] Take 8.4 g by mouth nightly 04/06/2021 carvediloL (COREG) 12.5 mg tabletIndication s:hypertension Take [...] by mouth daily 30 tablet 02/13/2021 2 sulfamethoxazole -trimethoprim (BACTRIM DS) 800-160 mg per tablet Take 1 tablet by mouth 2 (two) times a day for 7 days 14 tablet 05/28/2021 2 documented as of this encounter Ordered Prescriptions Prescription Sig Dispense Quantity Refills Last Filled Start Date End Date oxyCODONE (ROXICODONE) 5 mg immediate release tabletIndications: Pain Take 1 tablet (5 mg total) by mouth every 6 (six) hours as needed for pain 10 tablet 05/28/2021 sulfamethoxazole-t rimethoprim (BACTRIM DS) 800-160 mg per tablet Take 1 tablet by mouth 2 (two) times a day for 7 days 14 tablet 05/28/2021 06/04/2021 documented in this encounter Discharge Disposition Disposition Code Departure Means Destination Discharge to home or self care documented in this encounter Progress Notes * Bob Martinez MD - 05/28/2021 8:06 AM CST Urology Daily Progress Note Howie Delaney : 1965 Brief History: 55 y.o. male s/p AUS Subjective Interval History: NAEON Tolerating diet, no nausea or vomiting Pain moderately controlled Good UOP Objective Recent Vitals(24hr Range): Vitals: 05/27/21 2121 05/27/21 2313 05/28/21 0335 05/28/21 0752 BP: 117/69 114/74 114/67 117/58 BP Location: Left arm Left arm Left arm Patient Position: Lying HOB 30 degrees HOB 30 degrees Pulse: 52 53 64 57 Resp: 12 12 14 16 Temp: 36.1 ??C (96.9 ??F) 36 ??C (96.8 ??F) 36.1 ??C (96.9 ??F) 36.1 ??C (96.9 ??F) TempSrc: Temporal Temporal Temporal SpO2: 97% 96% 99% 99% Weight: Height: I and Os: I/O last 3 completed shifts: In: 4102 [P.O.:950; I.V.:3052; IV Piggyback:100] Out: 1300 [Urine:1300] I/O this shift: In: 348 [I.V.:348] Out: - Physical Exam: Constitutional: Appears comfortable. No acute distress. Alert and oriented x 3 Resp: Good inspiratory effort, symmetric chest wall movements CVS: Regular rate and rhythm Abdomen: Soft, non distended, appropriately tender, wounds c/d/i with Dermabond, souza draining clear yellow urine Musculoskeletal: Motor strength grossly normal all 4 extremities Psych: Normal affect Lab/Radiology/Diagnostic Review: Chem/LFT Lab History Some values may be hidden. Unless noted otherwise, only the newest values recorded on each date aredisplayed. Labs-Chem/LFT Latest Ref Range 01/31/21 05/27/21 Sodium 135 - 145 mmol/L 137 136 Creatinine 0.80 - 1.30 mg/dL 1.41 (A) 1.30 CrCl- Actual Body Weight (Cockcroft-Gault) 114.5 114.4 (A) Abnormal value Hematology Lab History Some values may be hidden. Unless noted otherwise, only the newest values recorded on each date aredisplayed. Labs - Hematology Latest Ref Range 05/27/21 WBC 3.8 - 9.9 K/cumm 9.3 Total Hb, POC 13.0 - 17.5 g/dL 11.7 (A) Hct 38.9 - 50.3 % 37.6 (A) Plt 150 - 400 K/cumm 162 (A) Abnormal value Assessment Howie Delaney is a 55 y.o. male w/ h/o stress urinary incontinence now POD1 s/p AUS Plan - SLIV - Remove souza - Pain control - Ambulate - Reg diet - Discharge on 7d Bactrim The care plan above has been or will be discussed with attending physician, Dr. Rogers. Bob Martinez MD 05/28/2021 Cosigned by Suzette Rogers MD at 06/15/2021 1:54 PM EXPORT SALES MANAGER RT SALES MANAGER RT SALES MANAGER RT SALES MANAGER documented in this encounter H&P Notes * Suzette Rogers MD - 05/27/2021 10:38 AM CST I have reviewed the H&P, examined the patient, and endorse the findings as written. Plan of Care : Based on the above findings, I consider Howie Delaney to be an acceptable risk for : Procedure(s): PLACEMENT ARTIFICIAL SPHINCTER CYSTOSCOPY Physical examination: GENERAL: Patient is a healthy appearing who is well developed, well nourished in no acute distress. Eyes: Pupils equal, round. Sclera anicteric. Chest: Lungs clear to auscultation bilaterally. Heart: Regular rate and rhythm. Abdomen: Soft and non-tender, no masses, no hernia. No CVA tenderness. Skin: No rashes or lesions. Musculoskeletal: Normal strength. No edema. Neurologic: Alert, nonfocal. Psychiatric: Normal affect and mood, oriented x 3. RT SALES MANAGER Source Note - Ranjana Romero NP - 05/14/2021 9:03 AM EXPORT SALES MANAGER Images from the original note were not included. Center for Preoperative Assessment and Planning Preoperative Evaluation Record Evaluation type/location: TPAP from [facility] Planned procedure site: [facility] OR Date: 05/14/21 NOTE: This note [...] reflux study) - Pertinent negatives: CAD ; [place] ; CABG ; valvular heart disease; valve replacement; atrial fibrillation; arrhythmia; pacemaker/ICD; DVT/PE; drug- eluting stent(s); bare metal stent(s) and coronary angioplasty Comments: Last office visit with cardiology TUR[employer] EGG GATHERER 08/25/2020, carvedilol decreased at this visit Respiratory [...] Patient instructions were provided electronically sent via [employer].Instructed verbally also. Patient verbalized understanding of preoperative [...] COVID19 testing to be performed on 05/25/21. [facility] will place the order for testing. Result to be reviewed by surgeon's office. Patient with syncopal episode 11/2020 when waking up in night to go to the bathroom. [facility] CVA and cardiac etiology ruled out. Syncopal attributed to hypotensive episode patient with significant weight loss and HTN medications had not been adjusted. Bps now normalized and [id number] since decreasing BP medication. TPAP assessment complete. [...] (ZYLOPRIM) 100 mg tablet 05/13/2021 -- -- ProviderKrysta MD atorvastatin (LIPITOR) 40 mg tablet 05/12/2021 [...] 05/13/2021 UNABLE TO FIND 05/12/2021 -- -- ProviderKrysta MD [place] packet 05/12/2021 04/06/21 -- Provider, MD Krysta No current facility-administered medications for this encounter. [...] N/A ?? Cardiac catheterization(s): N/A ?? PFT(s): OSH (Care Everywhere) 04/30/2020: IMPRESSION: 1. ??Moderate Restrictive Ventilatory [...] last 720 hours. Alexis index score: 95 RT SALES MANAGER documented in this encounter Miscellaneous Notes * Plan of Care - Jessica Sheridan - 05/28/2021 8:21 AM CST Goals: Clinical Goals for the Shift: pain <4, dc souza after breakfast, then void before discharge Summary: discharge instructions reviewed with patient and spouse. Aware to picker / packer meds from [facility] in [place], follow up 07.07.2021, urine may be pink and incontinent--patient stated his baseline is incontinence and wears briefs. Tolerating PO and pain well controlled. Incision well approximated and GUERRERO. Problem: Health Behavior: Goal: Understanding of discharge needs will improve Outcome: Adequate for Discharge Problem: Lack of Knowledge: Goal: Ability to state ways to decrease the risk of falls will improve Outcome: Adequate for Discharge Problem: Safety: Goal: Will remain free from falls Outcome: Adequate for Discharge Goal: Will remain free from injury from falls Outcome: Adequate for Discharge RT SALES MANAGER * Plan of Care - Berenice Smalls RN - 05/28/2021 1:56 AM CST Goals: Clinical Goals for the Shift: pain 4 or less with intervention, IS 10x/hr while awake, ankle pumps hourly, urine output wnl Problem: Health Behavior: Goal: Understanding of discharge needs will improve Outcome: Progressing Problem: Lack of Knowledge: Goal: Ability to state ways to decrease the risk of falls will improve Outcome: Progressing Problem: Safety: Goal: Will remain free from falls Outcome: Progressing Goal: Will remain free from injury from falls Outcome: Progressing Summary: pts pain has been well controlled, catheter draining pale yellow urine, pt able to sleep with cpap in place RT SALES MANAGER * Plan of Care - Cydney Stone RN - 05/27/2021 4:41 PM CST Problem: Lack of Knowledge: Goal: Ability to state ways to decrease the risk of falls will improve Outcome: Progressing Goals: Summary: RT SALES MANAGER * Op Note - Suzette Rogers MD - 05/27/2021 12:27 PM CST Date of Surgery: 05/27/2021 Preoperative diagnosis: Male stress urinary incontinence, post-prostatectomy urinary incontinence, intrinsic sphincteric deficiency, prior history of artificial urinary sphincter bulbar urethral cufferosion Post-operative diagnosis: Male stress urinary incontinence, Post-prostatectomy urinary incontinence, intrinsic sphincteric deficiency, prior history of artificial urinary sphincter bulbar urethral cuff erosion Procedure: Cystoscopy, Placement artificial urinary sphincter, 4.5 cm cuff in the bulbar urethra, pump, and 61-70 cm pressure regulating balloon in prevesical space, with Inhibizone Statement on Addition Complexity of Surgery: Because of the previous surgery and significant scarring in the bulbar urethra from prior history of artificial urinary sphincter bulbar urethral cuff erosion, and morbid obesity BMI of 38, and also because of patient difficult anatomy, with a very deep perineum and the abdominal fascia from obesity, the operation is significantly more difficult, takessignificantly more time than usual (60 more minutes than typically required), and requires significantly more surgical skills to complete than typically required. Surgeon: Suzette Rogers MD Burr Picker: Bob Martinez MD Anesthesia: General Complications: None Estimated blood loss: None Specimen: None Intraoperative findings: 4.5 cm cuff placed in bulbar urethra, 61-70 cm pressure regulating balloon, system filled was with 22 mL of normal saline the pressure regulating balloon in the prevesical space. The placement of this new bulbar urethral cuff is away from the previous scar where the erosion occurred. The AMS 800 AUS system with Inhibizone was used. Indication for surgery: Patient had postprostatectomy male stress urinary incontinence and intrinsic sphincteric deficiency. Patient is here for placement of the artificial urinary sphincter the risks and benefits of the surgery have been discussed with the patient he consented to proceed. Risks discussed and included, but were not limited to, bleeding, wound/prosthesis infection, perforation/urethral injury, erosion, mechanical failure, leak from the system, pump migration, cuff atrophy, the need for revision surgery in the future, and recurrent or persistent urinary incontinence. We also discussed the very low risk of intra-abdominal organ/bowel injury with pressure regulating balloon plac ement. He is also aware that the AUS may not completely make him (1 or more pad per day) dry but should improve his incontinence. He consented to proceed with placement of the AUS. Because of his prior history artificial urinary sphincter erosion into the bulbar urethra, renal from studies there is a higher risk for a repeat erosion from this AUS surgery. In addition, because of surgical scarring, there is a higher risk for having intraoperative unrecognized urethral injury, resulting in erosion or infection of the system. There is also a higher risk for AUS infections for redo surgeries. All of this increased risks for we implant surgery has been discussed with the patient's, he fully understands increased risks, he consented to proceed with we implant of AUS. Surgery in details: Patient was identified in the preop area, started on IV (weight based) vancomycin and Unasyn 3 gramone hour prior to the procedure. Bilateral SCDs placed for DVT prophylaxis. He was prepped with ChloraPrep x2. He was then prepped and draped in standard surgical fashion. A 12-Barbadian coude catheter was then placed inside the bladder without difficulties. We then make an incision in the perineal area. We were able to identify and isolate the bulbar urethra, we identified an area of the bulbar urethra away from the previous scarring and erosion, identify a healthy-looking area of the urethra, todo our reimplant. Despite that, because of the previous surgery and significant scarring in the bulbar urethra from prior history of artificial urinary sphincter bulbar urethral cuff erosion, and morbid obesity BMI of 38, and also because of patient difficult anatomy, with a very deep perineum, theoperation is significantly more difficult, takes significantly more time than usual, and requires si gnificantly more surgical skills to complete than typically required. Dissection was then carried very carefully until I can passed safely pass away angle clamp behind the bulbar urethra under direct vision, and passed a vessel loop behind the urethra. There was no urethral injury. Before enlarging the window of the dissection, I performed flexible cystoscopy on the patient's and confirmed there is no urethral injury from this dissection. Again, it appears a new bulbar urethral site is distal to the previous one. Next we enlarged the space of the right angle to approximately 2-3 cm wide. We then able to with the measuring tape behind the bulbar urethra. With the catheter in place the cuff site measures 4.5 cm with the measuring tape. I then performed flexible cystoscopy. There is no injury to the bulbar urethra. There was no leak of any fluid inside the perineal incision. There is no bladder neck contracture. The bladder mucosa looks normal. No foreign bodies or stones. The 12-Barbadian coude catheter wasthen replaced. Next we prepped a new 4.5 cm cuff, a new 61-70 cm pressure regulating balloon, and the pump, with normal saline. Next we made an incision in the midline above the pubic symphysis. Dissection was thencarried away until we could identify the rectus fascia. The midline incision was then made on the rectus fascia. Rectus muscle was then split using the hemostat. We were then able to identify the prev esical space in front of the bladder the patient's left side. This is where the pressure in balloonis going to lie. We irrigated the incision and space with irrigant antibiotics solution. I was then able to put the pressure regulating balloon inside the space. The rectus fascia was then closed using 2 Vicryl stitch in a running fashion. This was done carefully so that the tubing of the of systems not nicked. This dissection is also more difficult than usual because of his large body size and morbid obesity. The rectus fascia is deeper, with a lot of subcutaneous fat. And because of the body size, we actually have to make a counter incision in the right sub inguinal area so we could passed a clamp to that area, before passing the ring forceps into the right anterior hemiscrotum. Next we developed a space in the anterior hemiscrotum on the right side in a subdartos space away from and anterior to the right testicle. I irrigated incision and the space of antibiotic solution containing irrigant antibiotic solution. I placed the pump in this space. The new pump was resting in the dependent position and is easy from the testicle. I then filled the pressure regulating balloon with 22 mL of normal saline. I overfilled by 1 mL and we took out that extra 1 mL to ensure the pressure regulating balloon has not ruptured. I then passed the new cuff around the urethra. It seemed to have a very good fit. We passed the tubing into the retropubic space under finger guid ance and connected all the system with QuickConnect. I then cycled the system a couple of times. All the incisions are washed with ample amount of irrigant antibiotics solution throughout the procedure. I used absorbable suture for all the incisions. In the perineal incision I used the PDS stitch followed by 3-0 chromic. For the midline incision I used a 3-0 Vicryl followed by 4-0 Monocryl. There was no bleeding. No drains were needed. We double-checked the pump to ensure that the system wasdeactivated at the end of the case. The Souza catheter is draining clear urine at the end of the case. Counts at the conclusion of the case: Correct Presence Statement: I, Dr. Suzette Rogers, was present throughout the surgery. RT SALES MANAGER * Brief Op Note - Suzette Rogers MD - 05/27/2021 12:27 PM CST Operative Progress Note Surgical Team: Surgeon(s) and Role: * Suzette Rogers MD - Primary Anesthesiologist: Bobo Jerome MD Waste Transportation Technician: Spike Mccain RN Scrub: Rambo Marie ST DATE OF SURGERY : 05/27/2021 Preoperative Diagnosis: Pre-op Diagnosis * Male stress incontinence [N39.3] Postoperative Diagnosis: Post-op Diagnosis * Male stress incontinence [N39.3] Procedure(s): Procedure(s) (LRB): PLACEMENT ARTIFICIAL SPHINCTER (N/A) CYSTOSCOPY (N/A) Operative Findings: 4.5 cm, placed in bulbar urethra away from previous scar, 61-70 cm PRB, filled with 22 cc Normal Saline Estimated Blood Loss: No blood loss documented. Intraoperative Fluids: See Anesthesia record for mls Specimens: No specimen collected in procedure Implants: Implant Name Type Inv. Item Serial No. Instrument Technician Apprentice Lot No. LRB No. Used [employer] [id number] AMS 800 KIT ACCESSORY STERILE DISPOSABLE LATEX FREE URINARY - [id number] - [id number] Other - see comments [employer] [id number] Ams 800 Kit Accessory Sterile Disposable Latex Free Urinary [id number] [employer] N/A 1 Implanted [employer] [id number] AMS 800 PRESSURE BALLOON SPHINCTER 61-70CU CM IMPLANT UROLOGICAL - [id number] Other - see comments [employer] [id number] Ams 800 Pressure Balloon Sphincter 61-70cu Cm Implant Urological [employer] N/A 1 Implanted [employer] [id number] AMS 800 CONTROL PUMP SPHINCTER IMPLANT UROLOGICAL INHIBIZONE - [id number] - [id number] Other - see comments [employer] [id number] Ams 800 Control Pump Sphincter Implant Urological Inhibizone [id number] [employer] N/A 1 Implanted [employer] [id number] AMS 800 4.5CM OCCLUSIVE CUFF SPHINCTER IMPLANT UROLOGICAL - [id number] Other - see comments [employer] [id number] Ams 800 4.5cm Occlusive Cuff Sphincter Implant Urological [employer] N/A 1 Implanted Blood/Blood Products Transfused: 0 mls Complications: None Condition on Discharge from the operating room was stable Roberto Rogers MD Date: 05/27/2021 Time: 2:45 PM TEACHING ATTESTATION : I was present and directly participated in the entire procedure (including opening and closing). RT SALES MANAGER * Perioperative Nursing Note - Joleen Craig RN - 05/27/2021 11:24 AM EXPORT SALES MANAGER K 5.2 4 weeks ago per care everywhere. Discussed with Dr. Hernandez. No repeat K needed. RT SALES MANAGER * Pre-Procedure Instructions - Ranjana Romero NP - 05/14/2021 9:02 AM CST [facility] CPAP Clinic Location: [facility] The night before your surgery: * Do not eat anything after midnight the night before your procedure. and * Do not smoke after midnight the night before surgery. It is best to stop smoking now to improve your health. The morning of your surgery: * You may have clear liquids on your surgery day. You must stop drinking two hours before you arrive to the surgery facility. Acceptable clear liquids include water, clear sports drinks, black coffee, or clear soda. DO NOT drink any milk, creamer, or alcohol. * Your surgeon's office may have provided additional instructions or restrictions. Please follow those instructions. ?? * You may brush your teeth and rinse your mouth out. * Do not glue your dentures. * Do not wear jewelry, body piercings, makeup, hairpins, false eyelashes or contact lenses to the hospital. * Leave any valuables at home or with your family. Outpatient Surgery: * You must have a responsible adult drive you home and stay with you for 24 hours after your surgery * You cannot be alone at home or in a hotel * Please call your surgeon's office if you do not have someone to drive you home and/or stay with you after surgery * Please bring any items you may need to spend the night in the hospital. Sometimes patients need to be cared for in the hospital overnight. If you have Sleep Apnea (MIRELLA): * Bring your CPAP/BiPAP/VPAP machine to the hospital the day of your surgery * For a few days after your surgery, you will need to wear your CPAP/ BiPAP/VPAP machine any time your are sleeping. This includes when you take a nap. Instructions For Your Medications: Pre-Surgery Instructions: Medication Instructions ??? acetaminophen (TYLENOL) 500 mg tablet Take on day of surgery if needed ??? allopurinoL (ZYLOPRIM) 100 mg tablet Take morning of surgery ??? atorvastatin (LIPITOR) 40 mg tablet Take the night before surgery as normal ??? CALCIUM ORAL Don't take on day of surgery ??? cyanocobalamin, vitamin B-12, (VITAMIN B-12 ORAL) Don't take on day of surgery ??? FLUoxetine (PROzac) 20 mg capsule Take morning of surgery ??? furosemide (LASIX) 20 mg tablet Don't take on day of surgery ??? gabapentin (NEURONTIN) 600 mg tablet Take morning of surgery ??? loratadine (CLARITIN) 10 mg tablet Don't take on day of surgery ??? multivitamin tablet Stop taking 1 week prior to surgery ??? Veltassa packet Don't take on day of surgery ??? carvediloL (COREG) 12.5 mg tablet Take morning of surgery ??? ibuprofen (ADVIL,MOTRIN) 600 mg tablet Stop taking 5 days prior to surgery General Instructions For Medications: ?? * Stop all of these medications 5 days prior to your surgery: excedrin, motrin, advil, ibuprofen, aleve, naproxen, meloxicam, celebrex, celecoxib.? For medications that you are instructed to take on the morning of surgery, take the medications with a few sips of water. ?? Stop all of these medications 7-14 days prior to your surgery: Vitamin E, Herbal medicines, DietPills ?? If you have pain, you may take tylenol (acetaminophen). Do not take more than 6 tablets or 3000 mg (3 g) within a 24 period. Call your surgeon and the CPAP clinic if any of the following happens before surgery: ?? Any changes in your health ?? You have a fever ?? You have any signs of an infection (chest, urinary tract or tooth) ?? You have been to the Emergency Room or were in the hospital ?? You have started taking any new medications ?? You have questions about a bowel prep or special diet before surgery RT SALES MANAGER * Perioperative Nursing Note - Sheba Zhu, RN - 05/13/2021 10:56 AM EXPORT SALES MANAGER Center for Preoperative Assessment and Planning Perioperative Nursing Note Telephone Preoperative Evaluation ([facility]) - TELEPHONE ONLY, NO PHYSICAL EXAM Date: 05/13/21 Vitals: 05/13/21 1045 Weight: 127.5 kg (281 lb) Height: 182.9 cm (6') CHEST CIRCUMFERENCE: NA Social History Tobacco Use Smoking Status Never Smoker Smokeless Tobacco Never Used Substance and Sexual Activity Drug Use Never Alcohol Use How often do you have a drink containing alcohol?: 2-4 times a month How many drinks containing alcohol do you have on a typical day when you are drinking?: 1 or 2 How often do you have six or more drinks on one occasion?: Never Outpatient Medications Marked as Taking for the 05/27/21 encounter (Hospital Encounter) Medication Sig Dispense Refill ??? acetaminophen (TYLENOL) 500 mg tablet Take [...] (two) times a day as needed ??? loratadine (CLARITIN) 10 mg tablet Take 10 mg by mouth daily as needed ??? multivitamin tablet Take 1 tablet by mouth every morning ??? UNABLE TO FIND Administer into each nostril nightly 3 L Home oxygen with CPAP ??? Veltassa packet Take 8.4 g by mouth nightly ??? [DISCONTINUED] acetaminophen (TYLENOL) 325 mg tablet Take 650 mg by mouth as needed for pain Implants No active implants to display in this view. SKIN Piercings Remaining: No Wound (LDAs) Type of Wound (LDA): (Denies) SCREENINGS Alexis index score: 95 PATIENT CARE PLANNING Advance Directives (For Healthcare) Have you reviewed your Advance Directive and is it valid for this stay?: Yes Advance Directive: Patient has advance directive, copy not in chart Advance Directive not in Chart: Copy requested from other (Comment) Information Provided on Healthcare Directives: No Assistive Devices/DME: Eyeglasses,CPAP/BiPAP,Oxygen Discharge Planning Type of Residence: Private residence Living Arrangements: Children Support Systems: Family members Patient expects to be discharged to:: Private residence (Freight Rate Specialist and Caregiver: Daughter or Girlfriend) COVID Screening Covid-19 Screening In the last 10 days have you had any new or worsening cough, SOB, fever (>=100F), body aches, loss of taste or smell, diarrhea or vomiting, or sore throat?: No Have you had close contact with anyone with confirmed or suspected COVID-19 in the past 2 weeks?: No Do you live in or work in a congregate living facility (ex. assisted living/fpc facility, halfway, shelter)?: No Have you tested positive for COVID-19 within the last 14 days?: No Have you previously tested positive for COVID-19? No Have you had a COVID -19 exposure within the past 14 days? No Were both or all people exposed wearing masks (cloth, isolation, surgical or N95)? N/A TESTING PLAN-See Instructions for plan We recommend you Self-Isolate after COVID Testing: Stay at home, if possible until your surgery date. Maintain a 6 foot distance from other people (social distancing). Avoid touching your eyes, nose and mouth with unwashed hands. Wash your hands often with soap and water for at least 20 seconds. Use an alcohol- based hand toll testboard worker that contains at least 60% alcohol if soap and water are not available. ADDITIONAL COMMENTS/ FOLLOW UP RT SALES MANAGER * Pre-Procedure Instructions - Sheba Zhu RN - 05/13/2021 10:51 AM EXPORT SALES MANAGER CENTER FOR PREOPERATIVE ASSESSMENT AND PLANNING (CPAP) PRE-SURGICAL NURSING INSTRUCTIONS Telephone Assessment General Information Discussed with Patient: 1. Surgery location provided to patient. 2. Arrival time and surgical time will be provided to the patient by their surgeon. 3. You should wear clothing that is clean, loose, comfortable and easy to get in and out of on the day of surgery. 4. You should leave your valuables and any jewelry at home. No metal or piercings are allowed in the operating room. 5. You should bring your insurance card, a photo ID (example: Freight Rate Specialist's License) and a method of payment for any insurance copay, deductible or copay for discharge medications. 6. You should bring a complete, up-to-date list of all your medications on the day of surgery, including any over the counter medications or supplements you may take. 7. You should bring your Advanced Directive and/or Living Will with you on the day of surgery if you have not verified a copy is already in your Epic Chart. How To Prepare Your Skin For Surgery Below is the Pre-Surgical Bathing Protocol you should follow for your surgery. If your surgeon provides you different bathing instructions, please follow your surgeon's orders. 2 Day CHG Bathing Protocol (no nasal ointment) PREVENTING INFECTION (DECOLONIZATION): Decolonization is the use of a topical antiseptic soap and sometimes a nasal ointment to remove bacteria (germs) from the skin's surface. Antiseptic soap: Chlorhexidine gluconate or CHG (brand name: Hibiclens??) ??? Before surgery, your entire body must be thoroughly cleaned. CHG helps to reduce the bacteria on your skin. ??? You may be given one or more bottles of CHG or you may be asked to obtain from your preferred pharmacy. Be sure to ask your pharmacist if you need help finding this product. Nasal ointment: Mupirocin (brand name: Bactroban) ??? Your surgeon may also prescribe a topical ointment that is rubbed inside each of the nostrils to reduce the bacteria in your nose. ??? Mupirocin ointment requires a prescription. If needed, it will be prescribed by your surgeon and obtained from your preferred pharmacy. SHOWERING WITH ANTISEPTIC SOAP (CHG) What You Need For Each Shower ??? 60 mL (?? cup) of CHG ??? 2 clean washcloths CHG Bathing Instructions 1. First, shampoo and rinse your hair with your own shampoo (no conditioners). Do this so the antiseptic soap isn't washed off by your shampoo. 2. Wash face with warm water. 3. Turn off shower and stand away from the water. 4. Use 2 clean washcloths to apply the antiseptic soap to all areas as described below: Pour 30 mL (1/8 cup) of CHG on washcloth #1: Using washcloth- start at jawline and firmly massage the soap into the skin in a circular motion to clean neck, shoulders, chest, back, both armpits, arms, hands and abdomen. Finish with legs and feet. Pour 30 mL (1/8 cup) of CHG on washcloth #2: Using washcloth- firmly massage the soap into the skinin a circular motion to clean groin area, perineum and buttocks. (Do not use CHG on genital area.) [place]: ??? The CHG antiseptic soap will not bubble or lather very much. ??? If you get soap in your eyes, ears or mouth, rinse well with cool water. ??? When finished, leave the soap on your skin for 2 minutes before rinsing. ??? Dry off with a clean fresh towel. ??? Wear clean clothes or pajamas to sleep in. ??? After showering DO NOT put on deodorant, hair products or conditioners, lotions or creams, powders, Vaseline or any non-essential products. ??? If you cannot reach the surgical site, such as the back, please have someone help you. Shaving: ??? You may shave your face, legs and underarms during your evening shower before you apply the CHGantiseptic soap. Be careful not to cut or linden your skin. ??? Avoid shaving on the day of surgery. Deodorant: ??? Patients following the 5-Day CHG protocol may apply deodorant on the days leading up to surgery, being sure, however, to avoid use on the evening before and day of surgery. All other products should be avoided for the full 5 days. 2-Day CHG Bathing Protocol The Evening Before Surgery: Take a shower with Antiseptic soap (CHG). Follow the steps for ???Showering with Antiseptic Soap (CHG)?? above. ??? Change all linens on your bed so you are sleeping in clean fresh sheets and pillowcases. ??? Remove nail coverings, artificial nails and nail kyrgyz. The Morning of Surgery: Take a shower with Antiseptic soap (CHG). Follow the steps for ???Showering with Antiseptic Soap (CHG)?? above. ??? Put clean clothes on after you shower. COVID TESTING PLAN: Please note, the below is the Pre-Procedure COVID Testing Plan for the Center for Preoperative Assessment & Planning for Anesthesia. Surgeon's offices may require additional testing. If so, the surgeon's office will reach out to the patient to discuss further testing. Patient's COVID-19 vaccination status: Patient states that they are fully COVID vaccinated and COVID vaccination information verified through [facility] Immunization Registry Database. COVID Test Plan: COVID Test Request Placed in Epic to [facility]. HOLIDAY hours may vary at testing site. Test jocy performed on 05/25/2020 at [place] [place] [address], M-F 8:30a-4:30p, Sat/Sun 8a-12:30p, Call once on site@[phone]. If you are going to a [facility] Testing Site for COVID testing, please arrive at least 30 minutes PRIOR to lab closing time. If you have COVID testing or should have COVID testing for your surgery/procedure, please read below section: If you need to reschedule your COVID test to a different location or if your surgery gets rescheduled, you MUST call [phone] Tuesday-Tuesday 8am-4:30pm to get your COVID testing rescheduled or your lab order will not be available at Testing Sites. COVID Testing is only valid for up to 96 hours prior to surgery date, unless otherwise specified. If you are unable to reach staff at the above phone number, please call the CPAP Staff at [phone]. This number cannot order a lab test, but can attempt to contact the above number/staff to assist you. CPAP Staff are available Tuesday- Tuesday 8am-5pm. We recommend you Self-Isolate after COVID Testing: Stay at home, if possible, until your surgery date. Maintain a 6-foot distance from other people (social distancing) and wear a face mask if you areable. Avoid touching your eyes, nose and mouth with unwashed hands. Wash your hands often with soapand water for at least 20 seconds. Use an alcohol-based hand toll testboard worker that contains at least 60% alcohol if soap and water are not available. These are general guidelines, but if have been told by aphysician that you should not perform any of the above, please follow physician's guidelines. All patients should read below section: All visitors/patients are being asked to wear a clean face mask when entering the hospital. COVID 19 Updates & Visitor Policy: Please access [email or web address] for the most updated information. Information on [facility]: Please view [email or web address] (Patient & Visitor Information) for additional details regarding Advanced Directive forms, AWARE, directions, parking information, lodging, Internet access, dining and more. Information on [facility]: Please view [email or web address] (Patient and Visitor Information) for parking/directions and more. For MyChart information, to activate account or password recovery, please go to [email or web address] or call [phone] (toll-free: [phone]). Information for Suicide Prevention: National Suicide Prevention Lifeline (0-504- 843-NCZY (8144)). Surgery Times: For patients having surgery @ [facility] or [facility], if your surgeon's office has not notified you of your surgery time by NOON THE BUSINESS DAY BEFORE your surgery, please call [phone] and ask for your surgeon'soffice Dr. Rogers. RT SALES MANAGER documented in this encounter Plan of Treatment Not on file documented as of this encounter Procedures Procedure Name Priority Date/Time Associated Diagnosis Comments EGFR Timed 05/27/2021 11:02 PM EXPORT SALES MANAGER CBC WITHOUT DIFFERENTIAL Timed 05/27/2021 11:02 PM EXPORT SALES MANAGER BASIC METABOLIC PANEL Timed 05/27/2021 11:02 PM EXPORT SALES MANAGER CYSTOSCOPY 05/27/2021 11:52 AM EXPORT SALES MANAGER Male stress incontinence [facility] AMS rep present for the case: Flexible cysto; irrigant antibiotics; sterile spray bottle PLACEMENT ARTIFICIAL SPHINCTER 05/27/2021 11:52 AM EXPORT SALES MANAGER Male stress incontinence [facility] AMS rep present for the case: Flexible cysto; irrigant antibiotics; sterile spray bottle POC ISTAT Routine 05/27/2021 11:36 AM EXPORT SALES MANAGER documented in this encounter Results * eGFR (05/27/2021 11:02 PM EXPORT SALES MANAGER) Pathologist [facility] eGFR 64 mL/min/1. 73 m2 YO CRAFT Comment: Interpretive [...] interpretive data was last reviewed 2021. Blood 05/27/2021 11:0 2 PM EXPORT SALES MANAGER 05/27/2021 11:35 PM EXPORT SALES MANAGER us Suzette Rogers MD LAB BLOOD ORDERABLES Final Res ult [facility]O [place] [address] [facility] [address] * (ABNORMAL) CBC without differential (05/27/2021 11:02 PM EXPORT SALES MANAGER) WBC 9.3 3.8 - 9.9 K/cumm [facility] Hgb 11.7(L) 13.0 - 17.5 g/dL [facility] Hct 37.6(L) 38.9 - 50.3 % [facility] Plt 162 150 - 400 K/cumm [facility] MPV 11.7 9.1 - 12.3 fL [facility] RBC 3.72(L) 4.30 - 5.80 M/cumm [facility] MCV 101.1(H) 81.3 - 96.4 fL [facility] MCH 31.5 27.1 - 33.3 pg [facility] MCHC 31.1(L) 32.3 - 35.7 g/dL [facility] RDW CV 14.9 11.1 - 14.9 % [facility] RDW SD 56.0(H) 35.7 - 48.1 fL [facility] NRBC abs 0.00 0.00 - 0.01 K/cumm [facility] Blood 05/27/2021 11:0 2 PM EXPORT SALES MANAGER 05/27/2021 11:36 PM EXPORT SALES MANAGER Suzette Rogers MD LAB BLOOD ORDERABLES Final Res ult Performing Organization Address [facility] Co de Phone Number YO CRAFT [address] [facility] [place] [address] * Basic metabolic panel (05/27/2021 11:02 PM EXPORT SALES MANAGER) Pathologist [facility] Sodium 136 135 - 145 mmol/L [facility] Potassium, pl 4.6 3.3 - 4.9 mmol/L [facility] Chloride 101 97 - 110 mmol/L [facility] CO2 29 22 - 32 mmol/L [facility] [facility] Anion gap 6 2 - 15 mmol/L [facility] BUN 21 8 - 25 mg/dL [facility] Creatinine 1.30 0.80 - 1.30 mg/dL [facility] Glucose 122 70 - 199 mg/dL [facility] Comment: Interpretive Data Fasting glucose >/= 126 [...] interpretive data was last revised 2017. Calcium 8.6 8.5 - 10.3 mg/dL [facility] Blood 05/27/2021 11:0 2 PM EXPORT SALES MANAGER 05/27/2021 11:35 PM EXPORT SALES MANAGER Suzette Rogers MD LAB BLOOD ORDERABLES Final Res ult Performing Organization Address [facility] Co de Phone Number YO SHIRLEYCH [id number] [facility] [place] [address] * POC ISTAT (05/27/2021 11:36 AM EXPORT SALES MANAGER) K POC 4.5 3.3 - 4.9 mmol/L [facility] Comment: Interpretive Data Unable to assess hemolysis. ??Invitro hemolysis causes falsely elevated potassium. Current Interpretive Data was last revised on 2019. POC Device Number [id number] [facility] POC Performer [id number] [facility] CRAFT Blood 05/27/2021 11:3 6 AM EXPORT SALES MANAGER 05/27/2021 11:36 AM EXPORT SALES MANAGER us Suzette Rogers MD LAB BLOOD ORDERABLES Final Res ult YO SHIRLEY [address] [facility]. [place] [address] documented in this encounter Visit Diagnoses Diagnosis Male stress incontinence- Primary Male stress incontinence documented in this encounter Admitting Diagnoses Diagnosis Male stress incontinence documented in this encounter Administered Medications Inactive Administered Medications - up to 3 most recent administrations Medication Order MAR Action Action Date Dose Rate Site acetaminophen (TYLENOL) tablet 1,000 mg 1,000 mg, oral, Every 6 hours scheduled, First dose on Tue05/27/21 at 1700, Indications: PainIndications:Pain Given 05/28/2021 11:08 AM EXPORT SALES MANAGER 1,000 mg Given 05/28/2021 5:10 AM EXPORT SALES MANAGER 1,000 mg Given 05/27/2021 11:03 PM EXPORT SALES MANAGER 1,000 mg allopurinoL (ZYLOPRIM) tablet 100 mg 100 mg, oral, 2 times daily, First dose on Tue05/27/21 at 2100, Indications: prevention of acute gout attackIndications:prevention of acute gout attack Given 05/28/2021 8:12 AM EXPORT SALES MANAGER 100 mg ampicillin-sulbactam (UNASYN) 3 g in sodium chloride 0.9% 100 mL IVPB 3 g, intravenous, at 200 mL/hr, Administer over 30 Minutes, Every 6 hours scheduled, First dose on Tue05/27/21 at 1800, Mini-Bag Plus bag, Indications: Prophylaxis, SurgicalIndications:Prophylaxis, Surgical New Bag 05/28/2021 12:15 PM EXPORT SALES MANAGER 3 g 200 mL/hr New Bag 05/28/2021 5:12 AM EXPORT SALES MANAGER 3 g 200 mL/hr New Bag 05/27/2021 11:05 PM EXPORT SALES MANAGER 3 g 200 mL/hr atorvastatin (LIPITOR) tablet 40 mg 40 mg, oral, Nightly, First dose on Tue05/27/21 at 2100, Indications: hyperlipidemiaIndications:h yperlipidemia Given 05/27/2021 9:14 PM EXPORT SALES MANAGER 40 mg carvediloL (COREG) tablet 12.5 mg 12.5 mg, oral, 2 times daily with meals (bkfst, dinner), First dose on Tue05/27/21 at 1800, Indications: hypertensionIndications:hyp ertension Given 05/28/2021 8:12 AM EXPORT SALES MANAGER 12.5 mg dextrose 5% and sodium chloride 0.45% infusion (premix) 75 mL/hr, intravenous, Continuous, Starting on Tue05/27/21 at 1630 New Bag 05/27/2021 5:31 PM EXPORT SALES MANAGER 75 mL/hr 75 mL/hr docusate sodium (COLACE) capsule 100 mg 100 mg, oral, 2 times daily, First dose on Tue05/28/21 at 0900, Indications: constipationIndications:con stipation Given 05/28/2021 8:12 AM EXPORT SALES MANAGER 100 mg enoxaparin (LOVENOX) syringe 40 mg 40 mg, subcutaneous, Daily (for enoxaparin), First dose on Tue05/27/21 at 2100, Indications: Deep Vein Thrombosis PreventionIndications:Deep Vein Thrombosis Prevention Given 05/27/2021 9:15 PM EXPORT SALES MANAGER 40 mg Left Upper Abdomen FLUoxetine (PROzac) capsule 20 mg 20 mg, oral, Nightly, First dose on Tue05/27/21 at 2100, Indications: depressionIndications:depre ssion Given 05/27/2021 9:14 PM EXPORT SALES MANAGER 20 mg HYDROmorphone (DILAUDID) injection 0.2 mg 0.2 mg, intravenous, Administer over 2 Minutes, Every 5 min PRN, 1st line for pain, Use as 1st line pain med for inpatients or for patients with extremely severe pain., Starting on Tue05/27/21 at 1446, Phase I, Use as first line pain medication for inpatients. May use as first line medication for outpatients with extremely severe pain, history of opioid tolerance, or history of Chronic Pain with opioid tolerance, after consulting with Anesthesiologist. Inform anesthesiologist when dose reaches 2 mg for inpatients or 1 mg for outpatients., Indications: Chronic Pain with Opioid Tolerance, Pain, Severe Pain with Opioid ToleranceIndications:Chroni c Pain with Opioid Tolerance,Pain,Severe Pain with Opioid Tolerance Given 05/27/2021 3:22 PM EXPORT SALES MANAGER 0.2 mg Given 05/27/2021 3:17 PM EXPORT SALES MANAGER 0.2 mg Given 05/27/2021 3:12 PM EXPORT SALES MANAGER 0.2 mg influenza quadrivalent [id number] (FLULAVAL,FLUARIX,FLUZONE) 60 mcg (15 mcg x 4)/0.5 mL vaccine (STANDARD age 6 months and up) 0.5 mL 0.5 mL, intramuscular, During hospitalization, immunization, Starting on Sushila 05/28/21 at 0818, For 1 dose, Indications: influenza vaccinationIndications:influenza vaccination Given 05/28/2021 11:11 AM EXPORT SALES MANAGER 0.5 mL Righ t Deltoid ketorolac (TORADOL) 15 mg/mL injection 15 mg 15 mg, intravenous, Every 6 hours scheduled, First dose on Tue05/27/21 at 1800, For 3 days, For Adult IV push, administer over 15 seconds, Indications: PainIndications:Pain Given 05/28/2021 11:09 AM EXPORT SALES MANAGER 15 mg Given 05/28/2021 5:12 AM EXPORT SALES MANAGER 15 mg Given 05/27/2021 11:04 PM EXPORT SALES MANAGER 15 mg Lactated Ringer's (LR) infusion 30 mL/hr, intravenous, Continuous, Starting on Tue05/27/21 at 1115, For 4 hours, Pre-Op, Use a 500 ml bag for End Stage Renal Disease Patients. Discontinue if fluid still running once patient arrives to floor. New Bag 05/27/2021 2:22 PM EXPORT SALES MANAGER New Bag 05/27/2021 1:12 PM EXPORT SALES MANAGER Restarted 05/27/2021 12:17 PM EXPORT SALES MANAGER neomycin-polymyxin B (NEOSPORIN-) 3 mL in sodium chloride 0.9% 500 mL irrigation solution As needed, Starting on Tue05/27/21 at 1234, Intra-Op Given 05/27/2021 12:34 PM EXPORT SALES MANAGER Surgical Site ondansetron (ZOFRAN) injection 4 mg 4 mg, intravenous, Administer over 2 Minutes, Every 6 hours PRN, nausea, vomiting, if not tolerating PO, Starting on Tue05/27/21 at 1557, Indications: nausea and vomitingIndications:nausea and vomiting ondansetron ODT (ZOFRAN-ODT) disintegrating tablet 4 mg 4 mg, oral, Every 6 hours PRN, nausea, vomiting, Starting on Tue05/27/21 at 1557, Indications: nausea and vomitingIndications:nausea and vomiting oxybutynin (DITROPAN) tablet 5 mg 5 mg, oral, 3 times daily PRN, bladder spasms, Starting on Tue05/27/21 at 1557 Given 05/27/2021 4:09 PM EXPORT SALES MANAGER 5 mg oxyCODONE (ROXICODONE) tablet 5 mg 5 mg, oral, Every 4 hours PRN, 1st line for pain, Starting on Tue05/27/21 at 1557, May repeat in 1 hour if pain is uncontrolled or increasing. Max 2 doses within 1 dosing interval., Indications: PainIndications:Pain Given 05/27/2021 11:03 PM EXPORT SALES MANAGER 5 mg Given 05/27/2021 5:22 PM EXPORT SALES MANAGER 5 mg Given 05/27/2021 4:09 PM EXPORT SALES MANAGER 5 mg sodium chloride 0.9% flush 0.5-20 mL 0.5-20 mL, intra-catheter, As needed, line care, Starting on Tue05/27/21 at 1557, Flush volume based on line type and size. Flush before and after each use. Given 05/27/2021 11:05 PM EXPORT SALES MANAGER 10 mL sodium chloride 0.9% irrigation As needed, Starting on Tue05/27/21 at 1234, Intra-Op Given 05/27/2021 12:34 PM EXPORT SALES MANAGER 500 mL Surgical Site sterile water irrigation As needed, Starting on Tue05/27/21 at 1234, Intra-Op Given 05/27/2021 12:34 PM EXPORT SALES MANAGER 1,000 mL Surgical Site vancomycin (VANCOCIN) 2,000 mg in sodium chloride 0.9% 500 mL IVPB 2,000 mg, intravenous, at 260 mL/hr, Administer over 120 Minutes, Once, On Tue05/27/21 at 1115, For 1 dose, Pre-Op, Administer within 120 minutes of incision., Indications: Prophylaxis, SurgicalIndications:Prophy laxis, Surgical New Bag 05/27/2021 10:55 AM EXPORT SALES MANAGER 2,000 mg 260 mL/hr vancomycin 1500 mg/250 mL in sodium chloride 0.9% (premix) 1,500 mg 1,500 mg, intravenous, Administer over 90 Minutes, Every 12 hours, First dose on Tue05/27/21 at 2300, Administer 12 hours after pre-operative dose., Indications: Prophylaxis, SurgicalIndications:Prophy laxis, Surgical New Bag 05/28/2021 10:33 AM EXPORT SALES MANAGER 1,500 mg New Bag 05/27/2021 11:03 PM EXPORT SALES MANAGER 1,500 mg documented in this encounter Discontinued Medications Medication Sig Discontinue Reason Start Date End Da te acetaminophen (TYLENOL) 325 mg tablet Take 650 mg by mouth as needed for pain Error 11/07/2019 05/13/2021 documented as of this encounter Historical Medications * This list may reflect changes made after this encounter. Shwetha packetIndications :hyperkalemia Take 8.4 g by mouth nightly 04/06/2021 loratadine (CLARITIN) 10 mg tabletIndications :Allergic Rhinitis Take 10 mg by mouth daily as needed 04/16/2021 FLUoxetine (PROzac) 20 mg capsuleIndication s:depression Take 20 mg by mouth nightly 04/25/2021 added in this encounter Active and Recently Administered Medications Times are shown in EXPORT SALES MANAGER. Scheduled Medication Order 05/26/2021 05/27/2021 05/28/2021 acetaminophen (TYLENOL) tablet 1,000 mg 1,000 mg, oral, Every 6 hours scheduled, First dose on Tue05/27/21 at 1700, Indications: Pain 1720 (Given - Provider: Cydney Stone RN)2303 (Given - Provider: Berenice Smalls RN) 0510 (Given - Provider: Berenice Smalls RN)1108 (Given - Provider: Jessica Sheridan) allopurinoL (ZYLOPRIM) tablet 100 mg 100 mg, oral, 2 times daily, First dose on Tue05/27/21 at 2100, Indications: prevention of acute gout attack 2114 (Not Given - Provider: Berenice Smalls RN - Reason: Patient/family refused) 0812 (Given - Provider: Jessica Sheridan) ampicillin-sulbactam (UNASYN) 3 g in sodium chloride 0.9% 100 mL IVPB 3 g, intravenous, at 200 mL/hr, Administer over 30 Minutes, Every 6 hours scheduled, First dose on Tue05/27/21 at 1800, Mini-Bag Plus bag, Indications: Prophylaxis, Surgical 1724 (New Bag - Provider: Cydney Stone RN)230 (New Bag - Provider: Berenice Smalls RN) 0512 (New Bag - Provider: Berenice Smalls RN)1215 (New Bag - Provider: Jessica Sheridan)1326 (Stopped - Provider: Jessica Sheridan) atorvastatin (LIPITOR) tablet 40 mg 40 mg, oral, Nightly, First dose on Tue05/27/21 at 2100, Indications: hyperlipidemia 2113 (Given - Provider: Berenice Smalls RN) carvediloL (COREG) tablet 12.5 mg 12.5 mg, oral, 2 times daily with meals (bkfst, dinner), First dose on Tue05/27/21 at 1800, Indications: hypertension 172 (Not Given - Provider: Cydney Stone RN - Reason: Patient/family refused - Comment: patient states he no longer takes d/t weight loss) 811 (Given - Provider: Jessica Sheridan) docusate sodium (COLACE) capsule 100 mg 100 mg, oral, 2 times daily, First dose on Tue05/28/21 at 0900, Indications: constipation 811 (Given - Provid er: Jessica Sheridan) enoxaparin (LOVENOX) syringe 40 mg 40 mg, subcutaneous, Daily (for enoxaparin), First dose on Tue05/27/21 at 2100, Indications: Deep Vein Thrombosis Prevention 2114 (Given - Provider: Berenice Smalls RN) FLUoxetine (PROzac) capsule 20 mg 20 mg, oral, Nightly, First dose on Tue05/27/21 at 2100, Indications: depression 2113 (Given - Provider: Berenice Smalls, AVA) ketorolac (TORADOL) 15 mg/mL injection 15 mg 15 mg, intravenous, Every 6 hours scheduled, First dose on Tue05/27/21 at 1800, For 3 days, For Adult IV push, administer over 15 seconds, Indications: Pain 172 (Given - Provider: Cydney Stone RN)230 (Given - Provider: Berenice Smalls RN) 0512 (Given - Provider: Berenice Smalls RN)1109 (Given - Provider: Jessica Sheridan) sodium chloride 0.9% flush 0.5-20 mL 0.5-20 mL, intra-catheter, Every 8 hours scheduled, First dose on Tue05/27/21 at 1630, Flush volume based on line type and size. 1632 (Not Given - Provider: Cydney Stone RN - Reason: IV Infusing)2156 (Not Given - Provider: Berenice Smalls RN - Reason: IV Infusing) 0408 (Not Given - Provider: Berenice Smalls RN - Reason: IV Infusing) vancomycin (VANCOCIN) 2,000 mg in sodium chloride 0.9% 500 mL IVPB (COMPLETED) 2,000 mg, intravenous, at 260 mL/hr, Administer over 120 Minutes, Once, On Tue05/27/21 at 1115, For 1 dose, Pre-Op, Administer within 120 minutes of incision., Indications: Prophylaxis, Surgical 1055 (New Bag - Provider: Joleen Craig RN) 1215 (Stopped - Provider: Jessica Sheridan) vancomycin 1500 mg/250 mL in sodium chloride 0.9% (premix) 1,500 mg 1,500 mg, intravenous, Administer over 90 Minutes, Every 12 hours, First dose on Tue05/27/21 at 2300, Administer 12 hours after pre-operative dose., Indications: Prophylaxis, Surgical 2303 (New Bag - Provider: Berenice Smalls RN) 1033 (New Bag - Provider: Jessica Sheridan) Continuous Medication Order 05/26/2021 05/27/2021 05/28/2021 dextrose 5% and sodium chloride 0.45% infusion (premix) (CANCELED) 75 mL/hr, intravenous, Continuous, Starting on Tue05/27/21 at 1630 1730 (Canceled Entry - Provider: Cydney Stone RN)1731 (New Bag - Provider: Cydney Stone RN) Lactated Ringer's (LR) infusion (CANCELED) 30 mL/hr, intravenous, Continuous, Starting on Tue05/27/21 at 1115, For 4 hours, Pre-Op, Use a 500 ml bag for End Stage Renal Disease Patients. Discontinue if fluid still running once patient arrives to floor. 1055 (New Bag - Provider: Neri Craig RN)1152 (Rate/Dose Verify - Provider: Bobo Jerome MD)1216 (Paused - Provider: Bobo Jerome MD - Comment: Switch to gravity)1217 (Restarted - Provider: Bobo Jerome MD)1312 (New Bag - Provider: Bobo Jerome MD)1422 (New Bag - Provider: Bobo Jerome MD) PRN Medication Order 05/26/2021 05/27/2021 05/28/2021 gabapentin (NEURONTIN) capsule 600 mg 600 mg, oral, 2 times daily PRN, neuropathic pain, Starting on Tue05/27/21 at 1557, Indications: Neuropathic Pain HYDROmorphone (DILAUDID) injection 0.2 mg (CANCELED) 0.2 mg, intravenous, Administer over 2 Minutes, Every 5 min PRN, 1st line for pain, Use as 1st line pain med for inpatients or for patients with extremely severe pain., Starting on Tue05/27/21 at 1446, Phase I, Use as first line pain medication for inpatients. May use as first line medication for outpatients with extremely severe pain, history of opioid tolerance, or history of Chronic Pain with opioid tolerance, after consulting with Anesthesiologist. Inform anesthesiologist when dose reaches 2 mg for inpatients or 1 mg for outpatients., Indications: Chronic Pain with Opioid Tolerance, Pain, Severe Pain with Opioid Tolerance 1512 (Given - Provider: Christie Obrien RN)1517 (Given - Provider: Christie Obrien, AVA)1522 (Given - Provider: Christie Obrien, AVA) influenza quadrivalent [id number] (FLULAVAL,FLUARIX,FLUZONE) 60 mcg (15 mcg x 4)/0.5 mL vaccine (STANDARD age 6 months and up) 0.5 mL (COMPLETED) 0.5 mL, intramuscular, During hospitalization, immunization, Starting on Sushila 05/28/21 at 0818, For 1 dose, Indications: influenza vaccination 1111 (Given - Provider: Jessica Sheridan) neomycin-polymyxin B (NEOSPORIN-) 3 mL in sodium chloride 0.9% 500 mL irrigation solution (CANCELED) As needed, Starting on Tue05/27/21 at 1234, Intra-Op 1234 (Given - Provider: Suzette Rogers MD) ondansetron (ZOFRAN) injection 4 mg(Linked Group 1) 4 mg, intravenous, Administer over 2 Minutes, Every 6 hours PRN, nausea, vomiting, if not tolerating PO, Starting on Tue05/27/21 at 1557, Indications: nausea and vomiting ondansetron ODT (ZOFRAN-ODT) disintegrating tablet 4 mg(Linked Group 1) 4 mg, oral, Every 6 hours PRN, nausea, vomiting, Starting on Tue05/27/21 at 1557, Indications: nausea and vomiting oxybutynin (DITROPAN) tablet 5 mg 5 mg, oral, 3 times daily PRN, bladder spasms, Starting on Tue05/27/21 at 1557 1609 (Given - Provider: Cydney Stone RN) oxyCODONE (ROXICODONE) tablet 5 mg 5 mg, oral, Every 4 hours PRN, 1st line for pain, Starting on Tue05/27/21 at 1557, May repeat in 1 hour if pain is uncontrolled or increasing. Max 2 doses within 1 dosing interval., Indications: Pain 1609 (Given - Provider: Cydney Stone RN)1722 (Given - Provider: Cydney Stone RN)212 (Return to Cabinet - Provider: Berenice Smalls RN - Comment: pt decided to wait on pain meds)2302 (Given - Provider: Berenice Smalls RN) sodium chloride 0.9% flush 0.5-20 mL 0.5-20 mL, intra-catheter, As needed, line care, Starting on Tue05/27/21 at 1557, Flush volume based on line type and size. Flush before and after each use. 2304 (Given - Provider: Berenice Smalls RN) sodium chloride 0.9% irrigation (CANCELED) As needed, Starting on Tue05/27/21 at 1234, Intra-Op 1234 (Given - Provider: Suzette Rogers MD) sterile water irrigation (CANCELED) As needed, Starting on Tue05/27/21 at 1234, Intra-Op 1234 (Given - Provider: Suzette Rogers MD) Linked Groups Order Group 1: ondansetron ODT (ZOFRAN-ODT) disintegrating tablet 4 mgJump to med 4 mg, oral, Every 6 hours PRN, nausea, vomiting, Starting on Tue05/27/21 at 1557, Indications: nausea and vomiting Or ondansetron (ZOFRAN) injection 4 mgJump to med 4 mg, intravenous, Administer over 2 Minutes, Every 6 hours PRN, nausea, vomiting, if not tolerating PO, Starting on Tue05/27/21 at 1557, Indications: nausea and vomiting documented in this encounter Orders Medications Ordered That Pacheco ht Not Have Been Administered Count Last Ordered Date First Ordered Date acetaminophen (TYLENOL) tablet 500 mg 1 09/2021 ampicillin-sulbactam (UNASYN ) 3 g in sodium chloride 0.9% 100 mL IVPB 1 05/27/2021 diphenhydrAMINE (BENADRYL) i njection 12.5 mg 1 05/27/2021 famotidine (PEPCID) injection 20 mg 1 05/27 fentaNYL (SUBLIMAZE) preserv ative free injection 25 mcg 1 05/27/2021 gabapentin (NEURONTIN) capsule 600 mg 1 09/2021 hydrALAZINE (APRESOLINE) injection 5 mg 1 0 05/27/2021 HYDROcodone-acetaminophen (N ORCO) 5-325 mg per tablet 1 tablet 1 05/27/2021 labetaloL (NORMODYNE,TRANDAT E) injection 5 mg 1 05/27/2021 Lactated Ringer's (LR) infusion 1 2 meperidine (DEMEROL) preserv ative free injection 12.5 mg 1 05/27/2021 naloxone (NARCAN) 0.4 mg/mL injection 0.04-0.4 mg 1 05/27/2021 ondansetron (ZOFRAN) injection 4 mg 2 05/27 ondansetron ODT (ZOFRAN-ODT) disintegrating tablet 4 mg 1 05/27/2021 prochlorperazine (COMPAZINE) injection 5 mg 1 05/27/2021 scopolamine patch 72 hour 1 patch 1 022 sodium chloride 0.9% flush 0.5-20 mL 2 09/2021 documented in this encounter Care Teams Hadoop Consultant Relationship Specialty Start Date End Date Natasha Bates PA [address] [id number] PCP - General Physician Burr Picker 10/08/19 documented as of this encounter
--- OUTSIDE RECORDS SUMMARY | 2024-05-22 05:52 | XMS_ITS | Encounter Summary ---
Author Organization [facility] Address [address] [place] [address] Phone Care Team Providers Care Wire Stripper Name Role Phone Natasha Bates Primary Care Provider [phone] Reason for Visit * Reason Comments Follow-up S/P AUS placement, f eels pressure like the cuff is activated * Consultation (Routine) - Closed Specialty Diagnoses / Procedures Referred By Malena sagastume Referred To Contact Urology Diagnoses Follow up Natasha Bates PA [address] [place] [address] Phone: tel: fax: [facility] (All Locations) Referral ID Status Reason Start Date Expiration Date V isits Requested Visits Authorized [id number] Closed Specialty Services Required 03/02/2021 04/01/2022 99 99 Encounter Details Date Type Department Care Team (Late st Contact Info) Description 06/02/2021 1:00 PM CS ASSOCIATE Office Visit [facility] Urology [address] [facility] [address] [place] [id number] Suzette Rogers MD [address] [facility] [address] [place] [address] LIZET (stress urinary incontinence), male (Primary Dx); Weak urine stream; Strains to urinate; Follow up Social History Tobacco Use Types [...] on file Legal Sex 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 CS ASSOCIATE Gender Identity Not on file Sexual Orientation Not on file documented as of this encounter Last Filed Vital Signs Vital Sign Reading Time Taken Comments Blood Pressure 137/77 06/02/2021 1:04 PM CS ASSOCIATE Pulse 85 06/02/2021 1:04 PM CS ASSOCIATE Temperature - - Respiratory Rate - - Oxygen Saturation - - Inhaled Oxygen Concentration - - Weight - - Height - - Body Mass Index - - documented in this encounter Progress Notes * Suzette Rogers MD - 06/02/2021 1:00 PM CST HPI: Howie Delaney is a 55 y.o. male with male stress urinary incontinence, he has artificial urinary sphincter implant about 8 days ago on May 27, 2021, replacement of bulbar urethral cuff, 4.5 cm. 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 Patient was discharged on postoperative day 1 after surgery, initially he was leaking is able to urinate well. He noticed starting about 2 days ago, he has more difficulty emptying his bladder. When he tried to urinate, he has to strain and push. He feels like he is not emptying his bladder. Urine stream is weak. The degree of incontinence is relatively mild, currently he is wearing about 1-2 small pads per day. His AUS was deactivated during surgery. ROS: Review Of Systems has been reviewed [...] Normal affect and mood, oriented x 3. The suprapubic incision looks fine with no evidence of clinical infection. The perineal incision looks fine with no evidence of clinical infection. There is some expected edema in his right hemiscrotum where the pump is placed. I can palpate the pump, there is no fluid collections around the pump, there is some edema around the pump, which is expected, and the pump is deactivated, with a proper dimple inside, and I can alsofeel the activating button on the pump. AUS pump is deactivated based on my assessment. Post-void residual: Measurement of postvoid residual urine and/or bladder capacity by ultrasound, non imaging. PVR = 0 cc. Cystoscopy (male): Indication for cystoscopy: Patient reported difficulty emptying the bladder after artificial urinary sphincter surgery The risks and benefits of office cystoscopy [...] bladder. URETHRA: Normal without strictures or lesions. I can see all the way up to the level of the bulbar urethral cuff. There is no erosion around the AUS cuff, there is still a lumen where patient can urinate through in the urethra. Because this is a fresh surgery, I did not try to advanced the flexible cystoscope through the bulbar urethral cuff area. The cystoscopy was performed in the presence of public policy professor, Adalgisa Munoz. I repeated the bladder scan a several times, since patient is obese, to make sure we have an egg crate reading. All the bladder scan readings (I have done this multiple times in different positions),were 0 cc. Post-void residual: Measurement of postvoid residual urine and/or bladder capacity by ultrasound, non imaging. PVR = 0 cc. Assessment and Plan: Status post artificial urinary sphincter implant last week History of bulbar urethral AUS cuff erosion Reporting weak stream and straining to urinate 1. His postvoid residual volume is 0 cc. Patient is not in retention. 2. The AUS system remains deactivated after the surgery. 3. There is no cuff erosion on cystoscopy, there is still a lumen where patient can not urinate through in the urethra. 4. I suspect he still have postsurgical edema around the AUS cuff, he should still be able to emptyhis bladder with some straining. 5. I will check his basic metabolic panel lab work to make sure it is not a renal insufficiency issue. He is going to the lab to get BMP today. 6. I will see him back in about 1 week or so, to recheck and see how he is doing. Linda Rogers MD x ray electronics wireman (Urology) Division of Urologic Surgery [facility] Office [phone] 06/02/2021 1:32 PM ASSOCIATE documented in this encounter Miscellaneous Notes * Addendum Note - Adalgisa Munoz LPN - 06/02/2021 1:00 PM CSTAddended by: ADALGISA MUNOZ on: 06/02/2021 01:55 PM Modules accepted: Orders ASSOCIATE * Addendum Note - Gerardo Retana - 06/02/2021 1:00 PM CSTAddended by: GERARDO RETANA on: 06/02/2021 02:43 PM Modules accepted: Orders ASSOCIATE documented in this encounter Plan of Treatment Not on file documented as of this encounter Procedures Procedure Name Priority Date/Time Associated Diagnosis Comments POCT URINALYSIS DIPSTICK Routine 06/02/2021 1:18 PM CS ASSOCIATE LIZET (stress urinary incontinence), male documented in this encounter Results * (ABNORMAL) Basic metabolic panel (06/02/2021 2:48 PM CS ASSOCIATE) Sodium 140 135 - 145 mmol/L CERNER [...] 2017. Calcium 9.2 8.5 - 10.3 mg/dL [facility] Blood 06/02/2021 2:48 PM CS ASSOCIATE 06/02/2021 3:05 PM CS ASSOCIATE us Suzette Rogers MD LAB BLOOD ORDERABLES Final Res ult [facility] [id number] [facility]. [place] [address] * Urine culture Urine, clean voided (06/02/2021 2:44 PM CS ASSOCIATE) Report Final Report: No growth [facility] Comment:Testing performed by : [facility] [facility], [place]., [address] Urine, clean voided 06/02/2021 2:44 PM CS ASSOCIATE 06/02/2021 5:57 PM CS ASSOCIATE Suzette Rogers MD LAB MICROBIOLOGY - GENERAL ORD ERABLES Final Result [facility] [id number] [facility]. [place] [address] * (ABNORMAL) POCT urinalysis dipstick (06/02/2021 1:18 PM CS ASSOCIATE) Glucose, ur, POC Negative Negative mg/dL Ketones, ur, POC Negative Negative Blood, ur, POC Trace(A) Negative pH, ur, POC 8.0 5.0 - 8.0 Protein, ur, POC Trace(A) Negative Nitrite, ur, POC Negative Negative Leukocytes, ur, POC Negative Negative Lot Number x Urine 06/02/2021 1:18 PM CS ASSOCIATE Suzette Rogers MD POINT OF CARE TEST ORDERABLES Final Result documented in this encounter Visit Diagnoses Diagnosis LIZET (stress urinary incontinence), male- Primary Weak urine stream Strains to urinate Follow up documented in this encounter Care Teams Wire Stripper Relationship Specialty Start Date End Date Natasha Bates PA [address] [place] [id number] PCP - General Physician Corporate Legal Secretary 10/08/19 documented as of this encounter
--- OUTSIDE RECORDS SUMMARY | 2024-05-22 05:52 | XMS_ITS | Encounter Summary ---
Author Organization [facility] Address [address] [place] [address] Phone Care Team Providers Care Matrix Bath Attendant Name Role Phone Natasha Bates Primary Care Provider [phone] Reason for Visit * Reason Comments Follow-up Had vucg today and h ad souza removed in Radiology. * Consultation (Routine) - Closed Specialty Diagnoses / Procedures Referred By Malena sagastume Referred To Contact Urology Diagnoses Scrotal swelling Natasha Bates PA [address] [place] [address] Phone: tel: fax: Suzette Rogers MD [address] [facility] [address] [place] [address] Phone: tel: fax: Referral ID Status Reason Start Date Expiration Date V isits Requested Visits Authorized [id number] Closed Specialty Services Required 10/08/2019 04/18/2021 99 99 Encounter Details Date Type Department Care Team (Late st Contact Info) Description 02/24/2021 2:00 PM CDT Office Visit [facility] Urology [address] [facility] Medical Office [address] [place] [address] Suzette Rogers MD [address] [facility] [address] [place] [address] LIZET (stress urinary incontinence), male (Primary Dx) [...] on file Legal 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 There are no extravasation of contrast in the urethra. There is some narrowing that corresponds artificial urinary sphincter cuff removal surgery. He has significant male stress urine incontinence, he is wearing diapers per ROS: Review Of Systems has been reviewed [...] mood, oriented x 3. Assessment and Plan: History artificial urinary sphincter erosion History of AUS removal 1. If he has bladder spasm or pain, he will call the office and we can get a urine culture 2. I will bring him back in 1 month to perform cystoscopy hopefully he does not develop a stricturein the bulbar urethral cuff location area where we removed his eroded AUS 3. If things go well, we can contemplate replacing the AUS in the future. Linda Rogers MD sales trader (Urology) Division of Urologic Surgery [facility] Office [phone] 02/24/2021 2:40 PM documented in this encounter Plan of Treatment Not on file documented as of this encounter Visit Diagnoses Diagnosis LIZET (stress urinary incontinence), male- Primary documented in this encounter Care Teams Matrix Bath Attendant Relationship Specialty Start Date End Date Natasha Bates PA [address] [place] [address] PCP - General Physician Accordion Repairer 10/08/19 documented as of this encounter
--- OUTSIDE RECORDS SUMMARY | 2024-05-22 05:52 | XMS_ITS | Encounter Summary ---
Author Organization [facility] Address [address] [place] [address] Phone Care Team Providers Care Treasury Consultant Name Role Phone Natasha Bates Primary Care Provider [phone] Encounter Details Date Type Department Care Team (Late st Contact Info) Description 04/30/2021 Orders Only [facility] Urology [address] [facility] [address] Office [address] [place] [address] Suzette Rogers MD [address] [facility] [address] [place] [address] Elective surgery (Primary Dx); LIZET (stress urinary incontinence), male [...] on file Legal Sex 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 INVENTORY MANAGER Gender Identity Not on file Sexual Orientation Not on file documented as of this encounter Plan of Treatment Not on file documented as of this encounter Procedures Procedure Name Priority Date/Time Associated Diagnosis Comments URINE CULTURE Routine 05/26/2021 9:57 AM INVENTORY MANAGER LIZET (stress urinary incontinence), male documented in this encounter Results * Urine culture Urine, clean voided (05/26/2021 9:57 AM INVENTORY MANAGER) Urine culture Final report [facility] - 01 Result 1 Comment [facility] - 01 Comment: Mixed urogenital willian Less than 10,000 colonies/mL Urine, clean voided 05/26/2021 9:57 AM INVENTORY MANAGER 05/26/2021 Comment:UC Narrative [facility] - 05/28/2021 3:07 AM INVENTORY MANAGER Performed at: ??01 - [facility] [address] ??[id number] Air Quality Engineer: Mane Sanchez PhD, Phone: ??[phone] us Suzette Rogers MD LAB MICROBIOLOGY - GENERAL ORD ERABLES Final Result [facility] 01 documented in this encounter Visit Diagnoses Diagnosis Elective surgery- Primary LIZET (stress urinary incontinence), male documented in this encounter Care Teams Treasury Consultant Relationship Specialty [place] [address] [place] [id number] PCP - General Physician Information Assurance Specialist 10/08/19 documented as of this encounter
--- OUTSIDE RECORDS SUMMARY | 2024-05-22 05:52 | XMS_ITS | Encounter Summary ---
Author Organization [facility] Healthcare Address [address] [place] [address] Care Team Providers Care Fern Picker Name Role Phone Natasha Bates Primary Care Provider Encounter Details Date Type Department Care Team (Late st Contact Info) Description 05/27/2021 10:31 AM DIRECT MAIL CLERK - 05/28/2021 1:34 PM DIRECT MAIL CLERK Hospital Encounter [facility] [address] [id number] [place] [address] Suzette Rogers MD [address] [facility] [address] [place] [address] Discharge Disposition: Discharge to home or self [...] on file Legal Sex 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 DIRECT MAIL CLERK Gender Identity Not on file Sexual Orientation Not on file documented as of this encounter Last Filed Vital Signs Vital Sign Reading Time Taken Comments Blood Pressure 117/58 05/28/2021 7:52 AM DIRECT MAIL CLERK Pulse 57 05/28/2021 7:52 AM DIRECT MAIL CLERK Temperature 36.1 ??C (96.9 ??F) 05/28/2021 7:52 AM CS T Respiratory Rate 16 05/28/2021 7:52 AM DIRECT MAIL CLERK Oxygen Saturation 99% 05/28/2021 7:52 AM DIRECT MAIL CLERK Inhaled Oxygen Concentration - - Weight 127.5 kg (281 lb) 05/27/2021 11:00 AM DIRECT MAIL CLERK Height 182.9 cm (6') 05/27/2021 11:00 AM DIRECT MAIL CLERK Body Mass Index 38.11 05/27/2021 11:00 AM DIRECT MAIL CLERK documented in this encounter Discharge Diagnoses Diagnosis Stress incontinence (female) (male) - STRESS INCONTINENCE (FEMALE) (MALE) 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 chronic kidney disease, or unspecified chronic kidney disease (HCC) - HYPERTENSIVE HEART AND CHRONIC KIDNEY DISEASE WITH HEART FAILURE AND STAGE 1 THROUGH STAGE 4 CHRONIC Heart failure, unspecified (CMS/HCC) (HCC) - HEART FAILURE, UNSPECIFIED Heart failure, unspecified Chronic kidney disease, stage 3 unspecified (HCC) - CHRONIC KIDNEY DISEASE, STAGE 3 UNSPECIFIED Hyperlipidemia, unspecified - HYPERLIPIDEMIA, UNSPECIFIED Pure hypercholesterolemia, unspecified - PURE HYPERCHOLESTEROLEMIA, UNSPECIFIED Pulmonary hypertension, unspecified (HCC) - PULMONARY HYPERTENSION, UNSPECIFIED Obstructive sleep apnea (adult) (pediatric) - OBSTRUCTIVE SLEEP APNEA (ADULT) (PEDIATRIC) Fatty (change of) liver, not elsewhere classified - FATTY (CHANGE OF) LIVER, NOT ELSEWHERE CLASSIFIED Morbid (severe) obesity due to excess calories (HCC) - MORBID (SEVERE) OBESITY DUE TO EXCESS CALORIES Body mass index (BMI) 38.0-38.9, adult - BODY MASS INDEX [BMI] 38.0-38.9, ADULT Other jail (current) drug therapy - OTHER PENITENTIARY (CURRENT) DRUG THERAPY documented in this encounter Discharge Summaries * Bob Martinez MD - 05/28/2021 8:11 AM CST Inpatient Discharge Summary BRIEF OVERVIEW Admitting Provider: Suzette Rogers MD Discharge Provider: Suzette Rogers MD Primary Care Physician at Discharge: Natasha Bates PA [phone] Admission Date: 05/27/2021 Discharge Date: 05/28/2021 Admission Location: [facility] Problems/Diagnoses: Principal Problem: Male stress incontinence Resolved [...] Suzette Rogers MD at 06/03/2021 7:[address] MAIL CLERK CT MAIL CLERK documented in this encounter Discharge Instructions * Discharge Instructions* Bob Martinez MD - 05/28/2021 8:11 AM DIRECT MAIL CLERK DISCHARGE INSTRUCTIONS FOR ARTIFICIAL URINARY SPHINCTER Call [...] Center 07/07/2021 11:00 AM Suzette Rogers MD [facility] Active issues requiring follow up: AUS activation Test results pending at discharge: none CT MAIL CLERK documented in this encounter Medications at Time [...] Suzette Rogers MD at 06/15/2021 1:[address] CL[address] CT MAIL CLERK CT MAIL CLERK CT MAIL CLERK documented in this encounter H&P Notes * [...] Normal affect and mood, oriented x 3. CT MAIL CLERK Source Note - Ranjana Romero NP - 05/14/2021 9:03 AM DIRECT MAIL CLERK Images from the original note were not included. Center for Preoperative Assessment and Planning Preoperative Evaluation Record Evaluation type/location: TPAP from [facility] Planned procedure site: [facility] OR Date: 05/14/21 NOTE: This note [...] reflux study) - Pertinent negatives: CAD ; FL ; CABG ; valvular heart disease; valve replacement; atrial fibrillation; arrhythmia; pacemaker/ICD; DVT/PE; drug- eluting stent(s); bare metal stent(s) and coronary angioplasty Comments: Last office visit with cardiology DRUM TESTER 08/25/2020, carvedilol decreased at this visit Respiratory [...] Patient instructions were provided electronically sent via Mediam[employer].Instructed verbally also. Patient verbalized understanding of preoperative [...] COVID19 testing to be performed on 05/25/21. [facility] will place the order for testing. Result to be reviewed by surgeon's office. Patient with syncopal episode 11/2020 when waking up in night to go to the bathroom. Admitted to [facility], CVA and cardiac etiology ruled out. Syncopal attributed to hypotensive episode patient with significant weight loss and HTN medications had not been adjusted. Bps now normalized and [id number] since decreasing BP medication. TPAP assessment complete. [...] 20 mg tablet Past Week -- -- ProviderKrysta MD gabapentin (NEURONTIN) 600 mg tablet 05/12/2021 [...] ProviderKrysta MD [place] packet 05/12/2021 04/06/21 -- ProviderKrysta [...] N/A ?? Cardiac catheterization(s): N/A ?? PFT(s): [facility] ([facility]) 04/30/2020: IMPRESSION: 1. ??Moderate Restrictive Ventilatory Limitation - low ERV is suggestive of extraparenchymal restriction. 2. No bronchodilator response, however this does not preclude the use of bronchodilators 3. There is no previous study available for comparison ?? Vascular studies: N/A ?? Other: [facility] ([facility] Everywhere) MRI Brain 11/20/2020: IMPRESSION: 1. No acute intracranial hemorrhage or evidence of acute ischemic infarct. ?? OS ([facility] Everywhere) CT Angio Brain Neck Stroke 11/20/2020: [...] occluded is probably a vein. ?? OS ([facility] Everywhere) Holter Read 14 day 08/19/2020: Summary: [...] last 720 hours. Alexis index score: 95 CT MAIL CLERK documented in this encounter Miscellaneous Notes * Plan of Care - Jessica Sheridan - 05/28/2021 8:21 AM CST Goals: Clinical Goals for the Shift: pain <4, dc souza after breakfast, then void before discharge Summary: discharge instructions reviewed with patient and spouse. Aware to pick out hand meds from [facility] in [place], follow up 07.07.2021, urine may be pink and incontinent--patient stated his baseline is incontinence and wears briefs. Tolerating PO and pain well controlled. Incision well approximated and LIGHT BULB REPLACER. Problem: Health Behavior: Goal: Understanding of discharge needs will improve Outcome: Adequate for Discharge Problem: Lack of Knowledge: Goal: Ability to state ways to decrease the risk of falls will improve Outcome: Adequate for Discharge Problem: Safety: Goal: Will remain free from falls Outcome: Adequate for Discharge Goal: Will remain free from injury from falls Outcome: Adequate for Discharge CT MAIL CLERK * Plan of Care - Berenice Smalls [...] able to sleep with cpap in place CT MAIL CLERK * Plan of Care - Cdyney Stone RN - 05/27/2021 4:41 PM CST Problem: Lack of Knowledge: Goal: Ability to state ways to decrease the risk of falls will improve Outcome: Progressing Goals: Summary: CT MAIL CLERK * Op Note - Suzette Rogers MD [...] than typically required. Surgeon: Suzette Rogers MD C Engineer: Bob Martinez MD Anesthesia: General Complications: None [...] organ/bowel injury with pressure regulating balloon plac emblanche. He is also aware that the AUS [...] and draped in standard surgical fashion. A 12-Jordanian coude catheter was then placed inside the [...] in place the cuff site measures 4.5 cmwith the measuring tape. I then performed flexible cystoscopy. There is no injury to the bulbar urethra. There was no leak of any fluid inside the perineal incision. There is no bladder neck contracture. The bladder mucosa looks normal. No foreign bodies or stones. The 12-Jordanian coude catheter wasthen replaced. Next we prepped [...] ance and connected all the system with [employer]. I then cycled the system a couple [...] Suzette Rogers, was present throughout the surgery. CT MAIL CLERK * Brief Op Note - Suzette Rogers MD - 05/27/2021 12:27 PM CST Operative Progress Note Surgical Team: Surgeon(s) and Role: * Suzette Rogers MD - Primary Anesthesiologist: Bobo Jerome MD Funeral Driver: Spike Mccain RN Scrub: Rambo Marie ST [...] Implant Name Type Inv. Item Serial No. Programmer Operator Numerical Control Lot No. LRB No. Used Action [employer]er[employer] [id number] AMS 800 KIT ACCESSORY STERILE DISPOSABLE LATEX FREE URINARY - [id number] - [id number] Other - see comments [employer] [id number] Ams 800 Kit Accessory Sterile Disposable Latex Free Urinary [id number] [employer] N/A 1 Implanted [employer] [id number] AMS 800 PRESSURE BALLOON SPHINCTER 61-70CU CM IMPLANT UROLOGICAL - [id number] Other - see comments [employer]born [id number] Ams 800 Pressure Balloon Sphincter 61-70cu Cm Implant Urological [employer] N/A 1 Implanted [employer]erborn [id number] AMS 800 CONTROL PUMP SPHINCTER IMPLANT UROLOGICAL INHIBIZONE - [id number] - [id number] Other - see comments [employer] [id number] Ams 800 Control Pump Sphincter Implant Urological Inhibizone [id number] [employer] N/A 1 Implanted [employer] [id number] AMS 800 4.5CM OCCLUSIVE CUFF SPHINCTER IMPLANT UROLOGICAL - [id number] Other - see comments [employer] [id number] Ams 800 4.5cm Occlusive Cuff Sphincter Implant Urological [employer] An[employer] N/A 1 Implanted Blood/Blood Products Transfused: 0 mls Complications: None Condition on Discharge from the operating room was stable Roberto Rogers MD Date: 05/27/2021 Time: 2:45 PM TEACHING ATTESTATION : I was present and directly participated in the entire procedure (including opening and closing). CT MAIL CLERK * Perioperative Nursing Note - Joleen Craig RN - 05/27/2021 11:24 AM DIRECT MAIL CLERK K 5.2 4 weeks ago per care everywhere. Discussed with Dr. Hernandez. No repeat K needed. CT MAIL CLERK * Pre-Procedure Instructions - Ranjana Romero NP - 05/14/2021 9:02 AM CST Center for Preoperative Assessment and Planning CPAP Clinic Location: [facility] The night before your surgery: * Do [...] bowel prep or special diet before surgery CT MAIL CLERK * Perioperative Nursing Note - Sheba Zuh RN - 05/13/2021 10:56 AM DIRECT MAIL CLERK Center for Preoperative Assessment and Planning Perioperative Nursing Note Telephone Preoperative Evaluation ([facility]) - TELEPHONE ONLY, NO PHYSICAL EXAM Date: [...] expects to be discharged to:: Private residence (Chopper Feeder and Caregiver: Daughter or Girlfriend) COVID Screening [...] in a congregate living facility (ex. assisted living/group home facility, shelter, alf)?: No Have you tested positive for [...] 20 seconds. Use an alcohol- based hand supervisor files that contains at least 60% alcohol if soap and water are not available. ADDITIONAL COMMENTS/ FOLLOW UP CT MAIL CLERK * Pre-Procedure Instructions - Sheba Zhu RN - 05/13/2021 10:51 AM DIRECT MAIL CLERK CENTER FOR PREOPERATIVE ASSESSMENT AND PLANNING (CPAP) [...] your insurance card, a photo ID (example: Chopper Feeder's License) and a method of payment for [...] Remove nail coverings, artificial nails and nail occitan. The Morning of Surgery: Take a shower [...] vaccinated and COVID vaccination information verified through [facility] Immunization Registry Database. COVID Test Plan: COVID Test Request Placed in Epic to [facility]. HOLIDAY hours may vary at testing site. Test jocy performed on 05/25/2020 at [facility] [place] [address], M-F 8:30a-4:30p, Sat/Sun 8a-12:30p, Call once on [phone]. If you are going to a [facility] Testing Site for COVID testing, please arrive at least 30 minutes PRIOR to lab closing time. If you have COVID testing or should have COVID testing for your surgery/procedure, please read below section: If you need to reschedule your COVID test to a different location or if your surgery gets rescheduled, you MUST call [phone] Tuesday-Tuesday 8am-4:30pm to get your COVID testing rescheduled or your lab order will not be available at Testing Sites. COVID Testing is only valid for up to 96 hours prior to surgery date, unless otherwise specified. If you are unable to reach staff at the above phone number, please call the CPAP Staff at [phone]. This number cannot order a lab test, [...] least 20 seconds. Use an alcohol-based hand supervisor files that contains at least 60% alcohol if [...] for the most updated information. Information on [facility]: Please view [email or web address] (Patient & Visitor Information) for additional details regarding Advanced Directive forms, AWARE, directions, parking information, lodging, Internet access, dining and more. Information on [facility]: Please view [email or web address] (Patient and Visitor Information) for parking/directions and more. For MyChart information, to activate account or password recovery, please go to [email or web address] or call [phone] (toll-free: [phone]). Information for Suicide Prevention: National Suicide Prevention Lifeline (6-587- 913-HXXY (2996)). Surgery Times: For patients having surgery @ [facility] or [facility], if your surgeon's office has not notified you of your surgery time by NOON THE BUSINESS DAY BEFORE your surgery, please call [phone] and ask for your surgeon'soffice Dr. Rogers. CT MAIL CLERK documented in this encounter Plan of Treatment Not on file documented as of this encounter Procedures Procedure Name Priority Date/Time Associated Diagnosis Comments EGFR Timed 05/27/2021 11:02 PM DIRECT MAIL CLERK CBC WITHOUT DIFFERENTIAL Timed 05/27/2021 11:02 PM DIRECT MAIL CLERK BASIC METABOLIC PANEL Timed 05/27/2021 11:02 PM DIRECT MAIL CLERK CYSTOSCOPY 05/27/2021 11:52 AM DIRECT MAIL CLERK Male stress incontinence Special Needs [facility] AMS rep present for the case: Flexible cysto; irrigant antibiotics; sterile spray bottle PLACEMENT ARTIFICIAL SPHINCTER 05/27/2021 11:52 AM DIRECT MAIL CLERK Male stress incontinence Special Needs [facility] AMS rep present for the case: Flexible cysto; irrigant antibiotics; sterile spray bottle POC ISTAT Routine 05/27/2021 11:36 AM DIRECT MAIL CLERK documented in this encounter Results * eGFR (05/27/2021 11:02 PM DIRECT MAIL CLERK) [facility] eGFR 64 mL/min/1. 73 m2 YO CRAFT [...] reviewed 2021. Blood 05/27/2021 11:0 2 PM DIRECT MAIL CLERK 05/27/2021 11:35 PM DIRECT MAIL CLERK us Suzette Rogers MD LAB BLOOD ORDERABLES Final Res ult [facility] [address] [facility]. Department [place] [address] * (ABNORMAL) CBC without differential (05/27/2021 11:02 PM DIRECT MAIL CLERK) Pathologist [facility] WBC 9.3 3.8 - 9.9 K/cumm [facility] Hgb 11.7(L) 13.0 - 17.5 g/dL [facility] Hct 37.6(L) 38.9 - 50.3 % [facility] Plt 162 150 - 400 K/cumm [facility] MPV 11.7 9.1 - 12.3 fL [facility] RBC 3.72(L) 4.30 - 5.80 M/cumm [facility] MCV 101.1(H) 81.3 - 96.4 fL [facility] MCH 31.5 27.1 - 33.3 pg [facility] MCHC 31.1(L) 32.3 - 35.7 g/dL [facility] RDW CV 14.9 11.1 - 14.9 % [facility] RDW SD 56.0(H) 35.7 - 48.1 fL [facility] NRBC abs 0.00 0.00 - 0.01 K/cumm [facility] Blood 05/27/2021 11:0 2 PM DIRECT MAIL CLERK 05/27/2021 11:36 PM DIRECT MAIL CLERK us Suzette Rogers MD LAB BLOOD ORDERABLES Final Res ult [facility] [address] [facility]. Department [place] [address] * Basic metabolic panel (05/27/2021 11:02 PM DIRECT MAIL CLERK) Sodium 136 135 - 145 mmol/L [facility] Potassium, pl 4.6 3.3 - 4.9 mmol/L [facility] Chloride 101 97 - 110 mmol/L [facility] CO2 29 22 - 32 mmol/L [facility] Anion gap 6 2 - 15 mmol/L [facility] BUN 21 8 - 25 mg/dL [facility] Creatinine 1.30 0.80 - 1.30 mg/dL [facility] Glucose 122 70 - 199 mg/dL [facility] Comment: Interpretive Data Fasting glucose >/= 126 [...] 2017. Calcium 8.6 8.5 - 10.3 mg/dL [facility] Blood 05/27/2021 11:0 2 PM DIRECT MAIL CLERK 05/27/2021 11:35 PM DIRECT MAIL CLERK Suzette Rogers MD LAB BLOOD ORDERABLES Final Res ult Performing Organization Address [facility] Co de Phone Number [facility] [address] [facility] [place] [address] * POC ISTAT (05/27/2021 11:36 AM DIRECT MAIL CLERK) K POC 4.5 3.3 - 4.9 mmol/L [facility] Comment: Interpretive Data Unable to assess hemolysis. ??Invitro hemolysis causes falsely elevated potassium. Current Interpretive Data was last revised on 2019. POC Device Number [id number] [facility] POC Performer [id number] [facility] Blood 05/27/2021 11:3 6 AM DIRECT MAIL CLERK 05/27/2021 11:36 AM DIRECT MAIL CLERK Suzette Rogers MD LAB BLOOD ORDERABLES Final Res t Performing Organization Address [facility] Co de Phone Number [facility] [address] [facility] [place] [address] documented in this encounter Visit Diagnoses Diagnosis Male stress incontinence- Primary documented in this encounter Admitting Diagnoses Diagnosis Male stress incontinence documented in this encounter Administered Medications Inactive Administered Medications - up to 3 most recent administrations Medication Order MAR Action Action Date Dose Rate Site acetaminophen (TYLENOL) tablet 1,000 mg 1,000 mg, oral, Every 6 hours scheduled, First dose on Tue05/27/21 at 1700, Indications: PainIndications:Pain Given 05/28/2021 11:08 AM DIRECT MAIL CLERK 1,000 mg Given 05/28/2021 5:10 AM DIRECT MAIL CLERK 1,000 mg Given 05/27/2021 11:03 PM DIRECT MAIL CLERK 1,000 mg allopurinoL (ZYLOPRIM) tablet 100 mg 100 mg, oral, 2 times daily, First dose on Tue05/27/21 at 2100, Indications: prevention of acute gout attackIndications:prevention of acute gout attack Given 05/28/2021 8:12 AM DIRECT MAIL CLERK 100 mg ampicillin-sulbactam (UNASYN) 3 g in sodium chloride 0.9% 100 mL IVPB 3 g, intravenous, at 200 mL/hr, Administer over 30 Minutes, Every 6 hours scheduled, First dose on Tue05/27/21 at 1800, Mini-Bag Plus bag, Indications: Prophylaxis, SurgicalIndications:Prophylaxis, Surgical New Bag 05/28/2021 12:15 PM DIRECT MAIL CLERK 3 g 200 mL/hr New Bag 05/28/2021 5:12 AM DIRECT MAIL CLERK 3 g 200 mL/hr New Bag 05/27/2021 11:05 PM DIRECT MAIL CLERK 3 g 200 mL/hr atorvastatin (LIPITOR) tablet 40 mg 40 mg, oral, Nightly, First dose on Tue05/27/21 at 2100, Indications: hyperlipidemiaIndications:h yperlipidemia Given 05/27/2021 9:14 PM DIRECT MAIL CLERK 40 mg carvediloL (COREG) tablet 12.5 mg 12.5 mg, oral, 2 times daily with meals (bkfst, dinner), First dose on Tue05/27/21 at 1800, Indications: hypertensionIndications:hyp ertension Given 05/28/2021 8:12 AM DIRECT MAIL CLERK 12.5 mg dextrose 5% and sodium chloride 0.45% infusion (premix) 75 mL/hr, intravenous, Continuous, Starting on Tue05/27/21 at 1630 New Bag 05/27/2021 5:31 PM DIRECT MAIL CLERK 75 mL/hr 75 mL/hr docusate sodium (COLACE) capsule 100 mg 100 mg, oral, 2 times daily, First dose on Tue05/28/21 at 0900, Indications: constipationIndications:con stipation Given 05/28/2021 8:12 AM DIRECT MAIL CLERK 100 mg enoxaparin (LOVENOX) syringe 40 mg 40 mg, subcutaneous, Daily (for enoxaparin), First dose on Tue05/27/21 at 2100, Indications: Deep Vein Thrombosis PreventionIndications:Deep Vein Thrombosis Prevention Given 05/27/2021 9:15 PM DIRECT MAIL CLERK 40 mg Left Upper Abdomen FLUoxetine (PROzac) capsule 20 mg 20 mg, oral, Nightly, First dose on Tue05/27/21 at 2100, Indications: depressionIndications:depre ssion Given 05/27/2021 9:14 PM DIRECT MAIL CLERK 20 mg HYDROmorphone (DILAUDID) injection 0.2 mg [...] with Opioid Tolerance Given 05/27/2021 3:22 PM DIRECT MAIL CLERK 0.2 mg Given 05/27/2021 3:17 PM DIRECT MAIL CLERK 0.2 mg Given 05/27/2021 3:12 PM DIRECT MAIL CLERK 0.2 mg influenza quadrivalent [id number] (FLULAVAL,FLUARIX,FLUZONE) 60 mcg (15 mcg x 4)/0.5 mL vaccine (STANDARD age 6 months and up) 0.5 mL 0.5 mL, intramuscular, During hospitalization, immunization, Starting on Sushila 05/28/21 at 0818, For 1 dose, Indications: influenza vaccinationIndications:influenza vaccination Given 05/28/2021 11:11 AM DIRECT MAIL CLERK 0.5 mL Righ t Deltoid ketorolac (TORADOL) 15 mg/mL injection 15 mg 15 mg, intravenous, Every 6 hours scheduled, First dose on Tue05/27/21 at 1800, For 3 days, For Adult IV push, administer over 15 seconds, Indications: PainIndications:Pain Given 05/28/2021 11:09 AM DIRECT MAIL CLERK 15 mg Given 05/28/2021 5:12 AM DIRECT MAIL CLERK 15 mg Given 05/27/2021 11:04 PM DIRECT MAIL CLERK 15 mg Lactated Ringer's (LR) infusion 30 mL/hr, intravenous, Continuous, Starting on Tue05/27/21 at 1115, For 4 hours, Pre-Op, Use a 500 ml bag for End Stage Renal Disease Patients. Discontinue if fluid still running once patient arrives to floor. New Bag 05/27/2021 2:22 PM DIRECT MAIL CLERK New Bag 05/27/2021 1:12 PM DIRECT MAIL CLERK Restarted 05/27/2021 12:17 PM DIRECT MAIL CLERK ondansetron (ZOFRAN) injection 4 mg 4 mg, [...] Tue05/27/21 at 1557 Given 05/27/2021 4:09 PM DIRECT MAIL CLERK 5 mg oxyCODONE (ROXICODONE) tablet 5 mg 5 mg, oral, Every 4 hours PRN, 1st line for pain, Starting on Tue05/27/21 at 1557, May repeat in 1 hour if pain is uncontrolled or increasing. Max 2 doses within 1 dosing interval., Indications: PainIndications:Pain Given 05/27/2021 11:03 PM DIRECT MAIL CLERK 5 mg Given 05/27/2021 5:22 PM DIRECT MAIL CLERK 5 mg Given 05/27/2021 4:09 PM DIRECT MAIL CLERK 5 mg sodium chloride 0.9% flush 0.5-20 mL 0.5-20 mL, intra-catheter, As needed, line care, Starting on Tue05/27/21 at 1557, Flush volume based on line type and size. Flush before and after each use. Given 05/27/2021 11:05 PM DIRECT MAIL CLERK 10 mL vancomycin (VANCOCIN) 2,000 mg in sodium chloride 0.9% 500 mL IVPB 2,000 mg, intravenous, at 260 mL/hr, Administer over 120 Minutes, Once, On Tue05/27/21 at 1115, For 1 dose, Pre-Op, Administer within 120 minutes of incision., Indications: Prophylaxis, SurgicalIndications:Prophylaxis, Surgical New Bag 05/27/2021 10:55 AM DIRECT MAIL CLERK 2,000 mg 260 mL/hr vancomycin 1500 mg/250 mL in sodium chloride 0.9% (premix) 1,500 mg 1,500 mg, intravenous, Administer over 90 Minutes, Every 12 hours, First dose on Tue05/27/21 at 2300, Administer 12 hours after pre-operative dose., Indications: Prophylaxis, SurgicalIndications:Prophylaxis, Surgical New Bag 05/28/2021 10:33 AM DIRECT MAIL CLERK 1,500 mg New Bag 05/27/2021 11:03 PM DIRECT MAIL CLERK 1,500 mg documented in this encounter Discontinued Medications Medication Sig Discontinue Reason Start Date End Da te acetaminophen (TYLENOL) 325 mg tablet Take 650 mg by mouth as needed for pain Error 11/07/2019 05/13/2021 documented as of this encounter Historical Medications * This list may reflect changes made after this encounter. Veltarachellea packetIndications :hyperkalemia Take 8.4 g by mouth nightly 04/06/2021 loratadine (CLARITIN) 10 mg tabletIndications :Allergic Rhinitis Take 10 mg by mouth daily as needed 04/16/2021 FLUoxetine (PROzac) 20 mg capsuleIndication s:depression Take 20 mg by mouth nightly 04/25/2021 added in this encounter Active and Recently Administered Medications Times are shown in DIRECT MAIL CLERK. Scheduled Medication Order 05/26/2021 05/27/2021 05/28/2021 acetaminophen [...] 2100, Indications: prevention of acute gout attack 2113 (Not Given - Provider: Berenice Smalls RN - Reason: Patient/family refused) 0812 (Given - Provider: Jessica Sheridan) ampicillin-sulbactam (UNASYN) 3 g in sodium chloride 0.9% 100 mL IVPB 3 g, intravenous, at 200 mL/hr, Administer over 30 Minutes, Every 6 hours scheduled, First dose on Tue05/27/21 at 1800, Mini-Bag Plus bag, Indications: Prophylaxis, Surgical 172 (New Bag - Provider: Cydney Stone RN)2305 (New Bag - Provider: Berenice Smalls RN) [...] he no longer takes d/t weight loss) 08 (Given - Provider: Jessica Sheridan) docusate sodium (COLACE) capsule 100 mg 100 mg, oral, 2 times daily, First dose on Sushila 05/28/21 at 0900, Indications: constipation 08 (Given - Provid er: Jessica Sheridan) enoxaparin (LOVENOX) syringe 40 mg 40 mg, subcutaneous, Daily (for enoxaparin), First dose on Tue05/27/21 at 2100, Indications: Deep Vein Thrombosis Prevention 2114 (Given - Provider: Berenice Smalls RN) FLUoxetine (PROzac) capsule 20 mg 20 mg, oral, Nightly, First dose on Tue05/27/21 at 2100, Indications: depression 2113 (Given - Provider: Berenice Smalls RN) ketorolac (TORADOL) 15 mg/mL injection 15 mg 15 mg, intravenous, Every 6 hours scheduled, First dose on Tue05/27/21 at 1800, For 3 days, For Adult IV push, administer over 15 seconds, Indications: Pain 172 (Given - Provider: Cydney Stone RN)2304 (Given - Provider: Berenice Smalls RN) 0512 [...] 1630 1730 (Canceled Entry - Provider: Cydney Stone, AVA)1731 (New Bag - Provider: Cydney Stone, AVA) Lactated Ringer's (LR) infusion (CANCELED) 30 mL/hr, [...] Christie Obrien RN)1517 (Given - Provider: Christie Obrien RN)1522 (Given - Provider: Christie Obrien RN) influenza quadrivalent [id number] (FLULAVAL,FLUARIX,FLUZONE) 60 mcg (15 mcg x 4)/0.5 mL vaccine (STANDARD age 6 months and up) 0.5 mL (COMPLETED) 0.5 mL, intramuscular, During hospitalization, immunization, Starting on Tue05/28/21 at 0818, For 1 dose, Indications: influenza [...] Stone RN)1722 (Given - Provider: Cydney Stone RN)2120 (Return to Cabinet - Provider: Berenice Smalls RN - Comment: pt decided to wait on pain meds)2303 (Given - Provider: Berenice Smalls RN) sodium chloride 0.9% flush 0.5-20 mL 0.5-20 mL, intra-catheter, As needed, line care, Starting on Tue05/27/21 at 1557, Flush volume based on line type and size. Flush before and after each use. 230 (Given - Provider: Berenice Smalls RN) sodium [...] 1 05/27/2021 Lactated Ringer's (LR) infusion 1 meperidine (DEMEROL) preserv ative free injection 12.5 mg 1 05/27/2021 naloxone (NARCAN) 0.4 mg/mL injection 0.04-0.4 mg 1 05/27/2021 neomycin-polymyxin B (JUAN SPORIN-) 3 mL in sodium chloride 0.9% 500 mL irrigation solution 1 05/27/2021 ondansetron (ZOFRAN) injection 4 mg 2 05/27 ondansetron ODT (ZOFRAN-ODT) disintegrating tablet 4 mg 1 05/27/2021 prochlorperazine (COMPAZINE) injection 5 mg 1 05/27/2021 scopolamine patch 72 hour 1 patch 1 022 sodium chloride 0.9% flush 0.5-20 mL 2 09/2021 sodium chloride 0.9% irrigation 1 2 sterile water irrigation 1 05/27/2021 documented in this encounter Care Teams Fern Picker Relationship Specialty [place] [address] [place] [id number] PCP - General Physician C Engineer 10/08/19 documented as of this encounter
--- OUTSIDE RECORDS SUMMARY | 2024-05-22 05:52 | XMS_ITS | Encounter Summary ---
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 ETIC TAPE WINDER * Telephone Encounter - Shirin Quintero LPN - 04/30/2021 11:34 AM MAGNETIC TAPE WINDER ----- Message from Suzette Rogers MD sent at 04/28/2021 1:42 PM MAGNETIC TAPE WINDER ----- Regarding: #prep for case Please start prep for case for this patient: Surgery: Cystoscopy, placement of artificial urinary sphincter, and all indicated procedures Diagnosis: Male stress urinary incontinence CPAP: Yes Other instructions: (check urine culture to see if up to date) Return visit: 4 weeks ETIC TAPE WINDER documented in this encounter Plan of Treatment Not on file documented as of this encounter Visit Diagnoses Not on filedocumented in this encounter Care Teams Real Estate Firm Manager Relationship Specialty Start Date End Date Natasha Bates PA [address] [place] [id number] PCP - General Physician Presser Hand 10/08/19 documented as of this encounter
--- OUTSIDE RECORDS SUMMARY | 2024-05-22 05:52 | XMS_ITS | Encounter Summary ---
Author Organization [facility] Address [address] [place] [address] Care Team Providers Care Medical Typist Name Role Phone Natasha Bates Primary Care Provider Encounter Details Date Type Department Care Team (Late st Contact Info) Description 05/22/2021 Orders Only [facility] Testing Site - [facility]. 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 Date of Px/chemo/treatment/placement/transfer 05/27/2021 ?? Testing site patient will be sent to: [place], [place] ?? Date testing requested: 05/25/2021 ?? Testing: COVID-19 RNA ?? Does the patient currently work in a healthcare facility with direct patient contact? No ?? Is the patient a resident of a congregate care or living setting? No FACTURING SYSTEMS ENGINEER documented in this encounter Plan of Treatment Not on file documented as of this encounter Results * COVID-19 Coronavirus RNA Nasopharyngeal (05/25/2021 4:05 PM MANUFACTURING SYSTEMS ENGINEER) COVID-19 RNA Not Detected [facility] Comment: Interpretive Data Synonyms for this test include: PCR and NAAT . ??Testing performed by the [facility] Molecular Infectious Disease [facility]. The 2019-Novel [...] 26, 2020. First COVID-19 test? No [facility] Employeed in healthcare? No [facility] Group care resident? No [facility] Hospitalized? No [facility] Is patient in ICU? No [facility] Symptomatic as defined by CDC? No [facility] Nasopharyngeal 05/25/2021 4: 05 PM MANUFACTURING SYSTEMS ENGINEER 05/25/2021 11:40 PM MANUFACTURING SYSTEMS ENGINEER Narrative [facility] - 05/26/2021 1:40 PM MANUFACTURING SYSTEMS ENGINEER What is the reason for testing?->Screening prior to scheduled procedure or surgery (batch) Suzette Rogers MD LAB MICROBIOLOGY - GENERAL ORD ERABLES Final Result [facility] Department [place] [address] documented in this encounter Visit Diagnoses Diagnosis Pre-procedure lab exam- Primary Pre-procedural laboratory examination Pre-procedure lab exam Pre-procedural laboratory examination documented in this encounter Care Teams Medical Typist Relationship Specialty [place] [address] [place] [id number] PCP - General Physician Water Treatment Specialist 10/08/19 documented as of this encounter
--- OUTSIDE RECORDS SUMMARY | 2024-05-22 05:53 | XMS_ITS | Encounter Summary ---
Author Organization [facility] Healthcare Address [address] [place] [address] Care Team Providers Care Information Technology Associate Name Role Phone Natasha Bates Primary Care Provider [phone] Reason for Visit * Reason Comments Urinary Retention Encounter Details Date Type Department Care Team (Late st Contact Info) Description 01/21/2021 5:03 PM CDT - 01/21/2021 9:12 PM CDT Emergency [facility] Emergency Department [address] [place] [address] Adonis Baer MD [address] [place] [address] Disorder of urinary sphincter implant, initial encounter (HCC) (Primary Dx) Discharge Disposition: Discharge to home or self care Social History Tobacco Use Types Packs/Day Years Used Date Smoking Tobacco: Never Alcohol Use Standard Drinks/Week Comments No 0 (1 standard drink = 0.6 oz pur e alcohol) Sex and Gender Information Value Date Recorded Sex Assigned at Not on file Legal Sex 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 [employer] Gender Identity Not on file Sexual Orientation Not on file documented as of this encounter Last Filed Vital Signs Vital Sign Reading Time Taken Comments Blood Pressure 140/85 01/21/2021 4:17 PM CDT Pulse 62 01/21/2021 4:17 PM CDT Temperature 36.3 ??C (97.4 ??F) 01/21/2021 4:17 PM CD T Respiratory Rate 20 01/21/2021 4:17 PM CDT Oxygen Saturation 95% 01/21/2021 4:17 PM CDT Inhaled Oxygen Concentration - - Weight - - Height - - Body Mass Index - - documented in this encounter Discharge Diagnoses Diagnosis Unspecified complication of genitourinary prosthetic device, implant and graft, initial encounter ([facility]) - UNSPECIFIED COMPLICATION OF GENITOURINARY PROSTHETIC DEVICE, IMPLANT AND GRAFT, INITIAL ENCOUNTER Pure hypercholesterolemia, unspecified - PURE HYPERCHOLESTEROLEMIA, UNSPECIFIED Other tank terminal gauger (current) drug therapy - OTHER AGENT (CURRENT) DRUG THERAPY Personal history of urinary (tract) infections - PERSONAL HISTORY OF URINARY (TRACT) INFECTIONS Acquired absence of other genital organ(s) - ACQUIRED ABSENCE OF OTHER GENITAL ORGAN(S) Other surgical procedures as the cause of abnormal reaction of the patient, or of later complication, without mention of misadventure at the time of the procedure - OTHER SURGICAL PROCEDURES THE CAUSE OF ABNORMAL REACTION OF THE PATIENT, OR OF LATER COMPLICATION Activity, unspecified - ACTIVITY, UNSPECIFIED Unspecified place or not applicable - UNSPECIFIED PLACE OR NOT APPLICABLE Other external cause status - OTHER EXTERNAL CAUSE STATUS documented in this encounter Discharge Instructions * Discharge Instructions* Adonis Baer MD - 01/21/2021 8:56 PM CDT Your artificial urinary sphincter was left in the open position today. Follow up with Dr. Rogers tomorrow as is planned. Return to the ED if you re-develop urinary retention and worsening pelvic pain/pressure. documented in this encounter Medications at Time of Discharge furosemide (LASIX) 20 mg tabletIndications :Edema Take 20 mg by mouth daily as needed multivitamin tabletIndications :Vitamin Deficiency Take 1 tablet by mouth every morning acetaminophen (TYLENOL) 325 mg tablet Take 650 mg by mouth as needed for pain 11/07/2019 05/13/2021 amitriptyline (ELAVIL) 25 mg tabletIndications :depression Take 25 mg by mouth nightly 01/23/2021 carvediloL (COREG) 12.5 mg tabletIndications :hypertension Take 12.5 mg by mouth 2 (two) times a day with meals 01/06/2021 06/03/2021 isosorbide mononitrate ER (IMDUR) 30 mg 24 hr tablet Take 30 mg by mouth daily. 01/23/2021 isosorbide mononitrate ER (IMDUR) 60 mg 24 hr tablet Take 60 mg by mouth daily. 01/23/2021 metoprolol XL (TOPROL-XL) 50 mg 24 hr tablet Take 50 mg by mouth daily. 01/23/2021 pravastatin (PRAVACHOL) 20 mg tablet Take 20 mg by mouth nightly. 01/23/2021 tamsulosin (FLOMAX) 0.4 mg extended release capsule 0.4 mg nightly. 01/23/2021 documented as of this encounter Discharge Disposition Disposition Code Departure Means Destination Discharge to home or self care documented in this encounter Consult Notes * Robert Brennan MD - 01/21/2021 7:10 PM CDT Urology Consult Chief Complaint: Urinary retention HPI: Patient is a 55 y.o. male with h/o LIZET after TURP s/p AUS placement in 2017 (4cm bulbar urethral cuff, 61-70 cm pressure regulating balloon). He had a symptomatic UTI in 10/2019 and office cysto was performed showing no signs of cuff erosion. He presents to the ED today with difficulty voiding and a distended bladder on imaging. In the ED he is afebrile with stable vitals. He was able to void 300cc of yellow urine but felt it to be difficult to do so. He has had difficulty activating his pump to void over the past few days and feels it is higher in his scrotum and with increased fluid around it. Denies fevers, chills, nausea, vomiting, hematuria, or scrotal pain. On exam scrotal pump is high in the right hemiscrotum. It is mobile and nontender. There is some palpable fluid surrounding the pump, making it hard to reach the button well. There seems to be some AUS tubing wrapped around the pump. I was evantually able to deactivate the pump and the dimple stayed in the pump. He was able to void several more times and leak prior to discharge. He is planned to see Dr. Rogers in clinic tomorrow. Past Medical History: Diagnosis Date ??? Angiospasm (CMS/HCC) (HCC) ??? Hypercholesterolemia History reviewed. No pertinent surgical history. (Not in a hospital admission) Allergies Allergen Reactions ??? No Known Allergies Other (See comments) Reaction: Social History Tobacco Use ??? Smoking status: Never Smoker Substance Use Topics ??? Alcohol use: No History reviewed. No pertinent family history. Review of Systems: See HPI. Objective Vitals: Arrival Vitals [01/21/21 161] Temp 36.3 ??C (97.4 ??F) Pulse 62 Resp 20 BP 140/85 SpO2 95 % Temp src Temporal Heart Rate Source Patient Position BP Location FiO2 (%) 24hr Min/Max: Temp Min: 36.3 ??C (97.4 ??F) Max: 36.3 ??C (97.4 ??F) Pulse Min: 62 Max: 62 BP Min: 140/85 Max: 140/85 Resp Min: 20 Max: 20 SpO2 Min: 95 % Max: 95 % Most Recent : Vitals: 01/21/21 1617 BP: 140/85 Pulse: 62 Resp: 20 Temp: 36.3 ??C (97.4 ??F) SpO2: 95% No intake/output data recorded. No intake/output data recorded. Physical Exam: General: NAD Neuro: AAOx3, moving all extremities HEENT: Moist mucous membranes Abdomen: Soft, non-tender, non-distended : Normal circumcised phallus, orthotopic meatus, normal bilateral testicles in scrotum, scrotal pump is high in the right hemiscrotum. It is mobile and nontender. There is some palpable fluid surrounding the pump, making it hard to reach the button well. There seems to be some AUS tubing wrapped around the pump. I was evantually able to deactivate the pump and the dimple stayed in the pump. Lab/Radiology/Diagnostic Review: Labs and imaging reviewed as above. Assessment /Plan Patient is a 55 y.o. male with h/o LIZET after TURP s/p AUS placement in Spr 2018 (4cm bulbar urethral cuff, 61-70 cm pressure regulating balloon). He had a symptomatic UTI in 10/2019 and office cystowas performed showing no signs of cuff erosion. He presents to the ED today with difficulty voiding and a distended bladder on imaging. In the ED he is afebrile with stable vitals. He was able to void 300cc of yellow urine but felt it to be difficult to do so. He has had difficulty activating his pump to void over the past few days and feels it is higher in his scrotum and with increased fluid around it. Denies fevers, chills, nausea, vomiting, hematuria, or scrotal pain. On exam scrotal pump is high in the right hemiscrotum. It is mobile and nontender. There is some palpable fluid surrounding the pump, making it hard to reach the button well. There seems to be some AUS tubing wrapped around the pump. I was evantually able to deactivate the pump and the dimple stayed in the pump. He was able to void several more times and leak prior to discharge. He is planned to see Dr. Rogers in clinic tomorrow. No signs of AUS infection at this time given mobile pump with no associated pain and no fevers, chills, erythema, drainage. - Pump kept deactivated - Return if no longer able to void - Clinic apt with Dr Rogers tomorrow for further evaluation - may need cystoscopy, repeat exam, and Christiano can determine if he needs any revision of his pump Robert Brennan MD documented in this encounter ED Notes * Adonis Baer MD - 01/21/2021 5:59 PM CDT HPI Chief Complaint Patient presents with ??? Urinary Retention HPI Howie Delaney is a 55 y.o. male w/ hx of artificial urinary sphincter placed 2018 for urinary incontinence after TURP who p/w cc of AUS malfunction. Started yesterday. Noted his stream was reduced andthe scrotal pump felt different . Today he believes the pump has completely malfunctioned. Last void was this morning and took him 30 minutes via dribble. Has been leaking more than usual today throughout the day. Reports progressive pelvic pressure. Denies abd pain, fever, dysuria, hematuria, chills, n/v/d. Patient History: Patient Active Problem List Diagnosis Date Noted ??? Chest pain 07/22/2017 ??? Hyperlipidemia 07/22/2017 ??? Essential hypertension 07/22/2017 Past Medical History: Diagnosis Date ??? Angiospasm (CMS/HCC) (HCC) ??? Hypercholesterolemia History reviewed. No pertinent surgical history. TURP AUS History reviewed. No pertinent family history. Social History Tobacco Use ??? Smoking status: Never Smoker Substance Use Topics ??? Alcohol use: No ??? Drug use: Not on file Social History Social History Narrative ??? Not on file MEDS & ALLERGIES: No current facility-administered medications on file prior to encounter. Current Outpatient Medications on File Prior to Encounter Medication Sig Dispense Refill ??? amitriptyline (ELAVIL) 25 mg tablet Take 25 mg by mouth nightly. ??? furosemide (LASIX) 20 mg tablet Take 20 mg by mouth daily. ??? isosorbide mononitrate ER (IMDUR) 30 mg 24 hr tablet Take 30 mg by mouth daily. ??? isosorbide mononitrate ER (IMDUR) 60 mg 24 hr tablet Take 60 mg by mouth daily. ??? metoprolol XL (TOPROL-XL) 50 mg 24 hr tablet Take 50 mg by mouth daily. ??? multivitamin tablet Take 1 tablet by mouth daily. ??? pravastatin (PRAVACHOL) 20 mg tablet Take 20 mg by mouth nightly. ??? tamsulosin (FLOMAX) 0.4 mg extended release capsule 0.4 mg nightly. Allergies Allergen Reactions ??? No Known Allergies Other (See comments) Reaction: Review of Systems Review of Systems All other systems reviewed and are negative. Physical Exam ED Triage Vitals [01/21/21 1617] Temp Pulse Resp BP SpO2 36.3 ??C (97.4 ??F) 62 20 140/85 95 % Temp src Heart Rate Source Patient Position BP Location FiO2 (%) Temporal -- -- -- -- Physical Exam Vitals signs and nursing note reviewed. Constitutional: General: Not in acute distress. Appearance: They are well-developed HENT: Head: Normocephalic and atraumatic. Eyes: Conjunctiva/sclera: No conjunctival injection, no scleral icterus Pupils: Pupils are equal and round Neck: Musculoskeletal: Neck supple. No neck rigidity. Cardiovascular: Heart sounds: S1 normal and S2 normal. RRR Pulmonary: Effort: Pulmonary effort is normal. Breath sounds: Normal breath sounds Abdominal: General: Bowel sounds are normal. Palpations: Abdomen is soft, nontender Musculoskeletal: Findings: No lower extremity edema or erythema Skin: General: Skin is warm and dry. Findings: No rash Neurological: Mental Status: They are alert. Cranial Nerves: No facial asymmetry. Psychiatric: Mood and Affect: Affect normal. Behavior: Behavior is cooperative Clinical lab tests: reviewed Tests in the radiology section of CPT??: reviewed MDM MDM DDx: AUS malfunction, urinary retention, clinical picture not congruent with UTI, orchitis, epididymitis Reviewed previous records: N/A History obtained from: N/A 55-year-old male presenting with 1 day of artificial urinary sphincter pump malfunction and difficulty urinating. Also having worsening urinary incontinence. Having a little bit of pain at the site of his pump. Scrotum appears normal and has nontender testicles. No erythema or fluctuance under exam. Belly does not feel distended. Has a lot of suprapubic scar tissue. Bedside ultrasound does notreveal a distended bladder but at the same time to resolve scar tissue and a cystic structure that I am unable to precisely identify as bladder. Given his complaint of progressive pelvic pressure andthe equivocal bedside ultrasound plan for CT. Touch base with Urology to see if he can be followed up as an outpatient if he is not retaining. ED Course as of Jan 22 2104 Time: 01/21 1906 Comment: CRUX provider is urology fellow. Aware of consult, will come see By: Adonis Baer MD Time: 01/22 2048 Comment: Urology fellow has seen. CT unremarkable. Urology fellow was able to get him to void afterde-activating his sphincter. Sphincter was left in the open position. Patient able to go home and follow up tomorrow with Dr. Rogers as long as he remains incontinent after the permanent de-activation of the sphincter. By: Adonis Baer MD Time: 01/21 2100 Comment: Patient able to pass urine in the ED. wants try weaning 1 more time before going home. Ready for discharge soon as patient feels ready to go home. By: Adonis Baer MD 1. Disorder of urinary sphincter implant, initial encounter (HCC) Adonis Baer MD Resident 01/21/212100 Adonis Baer MD Resident 01/21/212103 * Johanna Fuentes RN - 01/21/2021 4:18 PM CDT Patient arrives to the ED with complaints of not being able to properly urinate since yesterday. Patient stated he has a artificial sphincter and it is not opening correctly. Patient reports discomfort in lower abdomen. documented in this encounter Plan of Treatment Not on file documented as of this encounter Procedures Procedure Name Priority Date/Time Associated Diagnosis Comments CT ABDOMEN PELVIS W CONTRAST ED 01/21/2021 6:25 PM CDT POC ISTAT Routine 01/21/2021 6:16 PM CDT documented in this encounter Results * CT Abdomen Pelvis W Contrast (01/21/2021 6:25 PM CDT) Anatomical Region Laterality Modality Body N/A Computed Tomogra phy 01/22/2021 9:48 AM CDT Impressions 01/22/2021 1:56 PM CDT 1. Artificial urethral sphincter with fluid about the partially visualized pump in the right hemiscrotum and catheter tubing. 2. Skin thickening extending from the midline perineum and underlying the scrotum. Recommend correlation with physical examination. A preliminary report was issued by the teleradiologist on 01/21/2021 at 7:24 PM. Dictated by: Brianna Lopez M.D. The radiology attending physician has personally reviewed this study, and had reviewed and/or edited this written report and agrees with it. Electronically signed by: Travis Baxter M.D. Narrative 01/22/2021 1:56 PM CDT EXAMINATION: ??Computed tomography of the abdomen and pelvis with intravenous contrast HISTORY: Urinary incontinence status post TURP with subsequent artificial urinary sphincter presenting with urinary retention. TECHNIQUE: ??Transaxial computed tomographic images of the abdomen and pelvis were obtained with intravenous contrast according to the standard protocol after the uneventful administration of 100 mL Opti-Ray 350 intravenous contrast. COMPARISON: 07/27/2017 FINDINGS: ?? There is mild bibasilar atelectasis. Enlargement of the main pulmonary artery is partially visualized. The heart size is normal without pericardial effusion. Liver is normal without focal lesion. Gallbladder, spleen, adrenal glands, and pancreas are normal. Left kidney is mildly atrophic. The kidneys contain cysts bilaterally. No hydronephrosis. There is unchanged bladder wall thickening with submucosal fat deposition throughout the urinary bladder. There is a partially visualized artificial urinary sphincter with intraabdominal reservoir, and catheter extending into the right aspect of the scrotum with there is a partially visualized in the right scrotum. There is fluid surrounding the pump in the right scrotum, small amount of fluid tracking along the tubing superiorly. No free fluid. No free air. No abdominal or pelvic lymphadenopathy. There is mild diffuse body wall edema. There are incompletely evaluated fat-containing bilateral inguinal hernias. There is skin thickening extending from the midline perineum and underlying the scrotum. Scattered colonic diverticuli. The large and small bowel are normal in caliber without evidence of obstruction. 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 Multilevel advanced degenerative changes are noted in the lumbar spine. No suspicious osseous lesion. Procedure Note Travis Baxter MD - 01/22/2021 EXAMINATION: Computed tomography of the abdomen and pelvis with intravenous contrast HISTORY: Urinary incontinence status post TURP with subsequent artificial urinary sphincter presenting with urinary retention. TECHNIQUE: Transaxial computed tomographic images of the abdomen and pelvis were obtained with intravenous contrast according to the standard protocol after the uneventful administration of 100 mL Opti-Ray 350 intravenous contrast. COMPARISON: 07/27/2017 FINDINGS: There is mild bibasilar atelectasis. Enlargement of the main pulmonary artery is partially visualized. The heart size is normal without pericardial effusion. Liver is normal without focal lesion. Gallbladder, spleen, adrenal glands, and pancreas are normal. Left kidney is mildly atrophic. The kidneys contain cysts bilaterally. No hydronephrosis. There is unchanged bladder wall thickening with submucosal fat deposition throughout the urinary bladder. There is a partially visualized artificial urinary sphincter with intraabdominal reservoir, and catheter extending into the right aspect of the scrotum with there is a partially visualized in the right scrotum. There is fluid surrounding the pump in the right scrotum, small amount of fluid tracking along the tubing superiorly. No free fluid. No free air. No abdominal or pelvic lymphadenopathy. There is mild diffuse body wall edema. There are incompletely evaluated fat-containing bilateral inguinal hernias. There is skin thickening extending from the midline perineum and underlying the scrotum. Scattered colonic diverticuli. The large and small bowel are normal in caliber without evidence of obstruction. 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 Multilevel advanced degenerative changes are noted in the lumbar spine. No suspicious osseous lesion. IMPRESSION: 1. Artificial urethral sphincter with fluid about the partially visualized pump in the right hemiscrotum and catheter tubing. 2. Skin thickening extending from the midline perineum and underlying the scrotum. Recommend correlation with physical examination. A preliminary report was issued by the teleradiologist on 01/21/2021 at 7:24 PM. Dictated by: Brianna Lopez M.D. The radiology attending physician has personally reviewed this study, and had reviewed and/or edited this written report and agrees with it. Electronically signed by: Travis Baxter M.D. Adonis Baer MD IMG CT PROCEDURES Final Result * POC ISTAT (01/21/2021 6:16 PM CDT) Creatinine, POC, bld 1.3 0.6 - 1.3 mg/dL YO CRAFT Comment: Interpretive data Creatinine <1.5 mg/dL and stable receive IV contrast. Creatinine 1.5-1.9 mg/dL and stable use Visipaque IV contrast. Current interpretive data last reviewed 2015. POC Device Number [id number] [facility] POC Performer [id number] Y[facility] Blood 01/21/2021 6:16 PM CDT 01/21/2021 6:16 PM CDT us Adonis Baer MD LAB BLOOD ORDERABLES Fin al Result Performing Organization Address City/State/[facility] Co de Phone Number [facility] [id number] [facility]. Department [place] [address] documented in this encounter Visit Diagnoses Diagnosis Disorder of urinary sphincter implant, initial encounter (HCC)- Primary documented in this encounter Care Teams Information Technology Associate Relationship Specialty Start Date End Date Natasha Bates PA [address] [place] [id number] PCP - General Physician Fleet Dispatch Manager 10/08/19 documented as of this encounter
--- OUTSIDE RECORDS SUMMARY | 2024-05-22 05:53 | XMS_ITS | Encounter Summary ---
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 Gender Identity Not on file Sexual Orientation Not on file documented as of this encounter Last Filed Vital Signs Vital Sign Reading Time Taken Comments Blood Pressure 101/45 01/31/2021 12:25 PM CDT Pulse 74 01/31/2021 12:25 PM CDT Temperature 36.2 ??C (97.1 ??F) 01/31/2021 7:35 AM CD T Respiratory Rate 16 01/31/2021 7:35 AM CDT Oxygen Saturation 96% 01/31/2021 12:25 PM CDT Inhaled Oxygen Concentration - - Weight 138.3 kg (305 lb) 01/30/2021 11:42 AM CDT Height 182.9 cm (6') 01/30/2021 11:42 AM CDT Body Mass Index 41.37 01/30/2021 11:42 AM CDT documented in this encounter Discharge Diagnoses Diagnosis Other mechanical complication of implanted urinary sphincter, initial encounter (HCC) - OTHER MECHANICAL COMPLICATION OF IMPLANTED URINARY SPHINCTER, INITIAL ENCOUNTER Retention of urine, unspecified - RETENTION OF URINE, UNSPECIFIED Dysuria - DYSURIA Other surgical procedures as the cause of abnormal reaction of the patient, or of later complication, without mention of misadventure at the time of the procedure - OTHER SURGICAL PROCEDURES THE CAUSE OF ABNORMAL REACTION OF THE PATIENT, OR OF LATER COMPLICATION Unspecified place or not applicable - UNSPECIFIED PLACE OR NOT APPLICABLE Hypertensive heart and chronic kidney disease with [...] - CHRONIC KIDNEY DISEASE, STAGE 3 UNSPECIFIED Obstructive sleep apnea (adult) (pediatric) - OBSTRUCTIVE SLEEP APNEA (ADULT) (PEDIATRIC) Pulmonary hypertension, unspecified (HCC) - PULMONARY HYPERTENSION, UNSPECIFIED Fatty (change of) liver, not elsewhere classified - FATTY (CHANGE OF) LIVER, NOT ELSEWHERE CLASSIFIED Anemia in chronic kidney disease (CODE) - ANEMIA IN CHRONIC KIDNEY DISEASE (MANIFESTATION) Other chronic pain - OTHER CHRONIC PAIN Spinal stenosis, cervical region - SPINAL STENOSIS, CERVICAL REGION Dorsalgia, unspecified - DORSALGIA, UNSPECIFIED Morbid (severe) obesity due to excess calories (HCC) - MORBID (SEVERE) OBESITY DUE TO EXCESS CALORIES Body mass index (BMI)40.0-44.9, adult - BODY MASS INDEX [BMI] 40.0-44.9, ADULT Pure hypercholesterolemia, unspecified - PURE HYPERCHOLESTEROLEMIA, UNSPECIFIED Other long term care administrator (current) drug therapy - OTHER [facility] (CURRENT) DRUG THERAPY documented in this encounter Discharge Summaries * Toby Ibrahim MD - 01/31/2021 12:38 PM CDT Inpatient Discharge Summary BRIEF OVERVIEW Admitting Provider: Suzette Rogers MD Discharge Provider: Suzette Rogers MD Primary Care Physician at Discharge: Natasha Bates PA [phone] Admission Date: 01/30/2021 Discharge Date: 01/31/2021 Admission Location: [facility] Problems/Diagnoses: Principal Problem: Urethral erosion Resolved Problems: No resolved hospital problems. DETAILS OF HOSPITAL STAY Presenting Problem/History of Present Illness: Howie Delaney is a 55 y.o. 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 He was doing fine until a few days ago when he noticed that the pump may be moving higher inside his scrotum, and he has having more difficulty using the pump, and went to the emergency room yesterday with a distended bladder, and difficulty using the pump. On exam, the pump appears to have fluid collections around it, and also potentially AUS tubing wrapped around the pump, making the difficult to use and palpate. The AUS pump was deactivated yesterday after some difficulties, due to the fluid collection around the palm and some tubing wrapping around the pump, and he was discharged home with a deactivated AUS. Since his AUS deactivation, he is able to urinate, he has stress urinary incontinence. There is no longer any sensation of retention. There is no fever, chills, or discharge or burning. Hospital Course: The patient was taken to the operating room on 01/30/2021 and underwent Procedure(s) (LRB): ARTIFICIAL SPHINCTER REMOVAL (N/A) CYSTOSCOPY (N/A). Intraoperative findings: Small 2 mm erosion of the bulbar urethral cuff into the bulbar urethra onthe dorsal side and 11 o'clock position on cystoscopy, there is urine collection around the artificial urinary sphincter pump in the right anterior hemiscrotum, there is no pus or prudent drainage . Patient was admitted to the inpatient service and transferred to the floor. We provided fluid resuscitation and pain control, and diet was advanced. Diet was advanced to a regular diet without issues. Subcutaneous DVT prophylaxis was administered, pain medications were transitioned from IV to oral medications with adequate pain control, and home medications were restarted. Patient had sustained bradycardia overnight after POD 0. EKG was performed which showed sinus bradycardia. Labs demonstrated electrolytes were within normal range. Patient's coreg was held the morning of POD 1. Throughout the morning and early afternoon of POD 1, heart rate normalized to HR 60-70s. At time of discharge, erica thapa'kavya pain was well-controlled on oral pain medications, tolerating adequate oral intake on a regular diet with normal bowel function, voiding spontaneously without difficulty, and ambulating well. 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 Will be scheduled for VCUG in 3 weeks prior to souza catheter removal. Test Results Pending at Discharge: Pending Labs Order Current Status Aerobic and anaerobic culture and gram stain Miscellaneous Ureter, right Preliminary result Operative Procedures Performed: Procedure(s): ARTIFICIAL SPHINCTER REMOVAL CYSTOSCOPY Other Procedures: none Pertinent Test Results: none Discharge Details Physical Exam at Discharge: Discharge Condition: good Pulse: 74 Resp: 16 BP: 101/45 Temp: 36.2 ??C (97.1 ??F) Weight: (!) 138.3 kg (305 lb) Pertinent Exam Findings at Discharge: Constitutional: NAD, well developed, well nourished. A&O x 4. HEENT: PERRL, EOMI, anicteric. Lungs: Unlabored breathing. Trachea midline. Cardiovascular: Regular rate. No JVD. GI: Abdomen soft, non-distended Wound: Incision clean, dry, intact with suture. No erythema/swelling/drainage noted. Skin: No new rashes, lesions or bruises Extremities: Normal without edema or cyanosis Neurologic: Non-focal, CNII-XII grossly intact Psychiatric: Normal affect and mood. Discharge Disposition: Code Status at Discharge: Full code Discharge Instructions: Activity Instructions Discharge Activity: Driving restrictions -Do not drive while taking prescription pain medications. Discharge Activity: Stairs -You may climb stairs Discharge Activity: Walking -You may walk as tolerated. Diet Instructions Adult Discharge Diet Diet Type: Return to previous diet Other Instructions Call provider for: increased temperature -Temperature greater than 101 degrees F Call provider for: nausea, vomiting, diarrhea -If you have persistent nausea, vomiting or diarrhea (more than 10 stools per day) that does not stop Call provider for: redness, tenderness, or signs of infection (pain, swelling, redness, odor or green/yellow discharge around incision site) Call provider for: severe uncontrolled pain Call provider for: any other concerns or questions Call provider if: you feel dizzy, very tired or like you may faint Discharge Medications: Current Medications TAKE these medications * acetaminophen 325 mg tablet Take 650 mg by mouth as needed for pain Commonly known as: TYLENOL * acetaminophen 500 mg tablet Take 2 tablets [...] high blood pressure Commonly known as: COREG docusate sodium 100 mg capsule Take 1 capsule (100 mg total) by mouth 2 (two) times a day as needed for constipation for up to 7 days For: constipation Commonly known as: COLACE furosemide 20 mg tablet Take 20 mg by mouth every morning For: visible water retention Commonly known as: LASIX gabapentin 100 mg capsule Take 200 mg by mouth nightly For: neuropathic pain Commonly known as: NEURONTIN ibuprofen 600 mg tablet Take 1 tablet (600 mg total) by mouth every 6 (six) hours as needed for pain for up to 20 doses Commonly known as: ADVIL,MOTRIN multivitamin tablet Take 1 tablet by mouth every morning For: vitamin deficiency oxybutynin 5 mg tablet Take 1 tablet (5 mg total) by mouth 3 (three) times a day as needed (bladder spasms) for up to 20 doses Commonly known as: DITROPAN oxyCODONE 5 mg immediate release tablet Take 1 tablet (5 mg total) by mouth every 6 (six) hours as needed for pain for up to 10 doses For: pain Commonly known as: ROXICODONE phenazopyridine 100 mg tablet Take 1 tablet (100 mg total) by mouth 2 (two) times a day as needed for urinary pain Commonly known as: PYRIDIUM * sulfamethoxazole-trimethoprim 800-160 mg per tablet Take 1 tablet by mouth 2 (two) times a day for 3 days Commonly known as: BACTRIM DS * sulfamethoxazole-trimethoprim 800-160 mg per tablet Take 1 tablet by mouth 2 (two) times a day for 7 days Commonly known as: BACTRIM DS UNABLE TO FIND Administer into each nostril nightly 3 L Home oxygen with CPAP VITAMIN B-12 ORAL Take 1 capsule by mouth every morning For: supplement * This list has 4 medication(s) that are the same as other medications prescribed for you. Read the directions carefully, and ask your doctor or other care provider to review them with you. Outpatient Follow-Up: Future Appointments Date Time Provider Department Center 02/24/2021 1:00 PM [id number] 02/24/2021 2:00 PM Suzette Rogers MD [id number] Cosigned by Suzette Rogers MD at 02/04/2021 9:38 AM CDT documented in this encounter Discharge Instructions * Discharge Instructions* Toby Ibrahim MD - 01/31/2021 12:36 PM CDT DISCHARGE INSTRUCTIONS FOR ARTIFICIAL URINARY SPHINCTER REMOVAL Call your doctor if: * You have [...] resume your usual home diet. Activity: * Do NOT lift anything over [...] Climbing stairs is OK. Care Instructions: * You have a souza catheter in. Please do not remove it. * Wear your scrotal support such as [...] MD would like to see you in 3 weeks with results of a VCUG to decide if the catheter can be removed or not. Please call with any questions or concerns. Please also schedule follow-up with your PCP as soon as possible in order to be evaluated for bradycardia that was noted during hospital stay. Active issues requiring follow up: none Test results pending at discharge: none documented in this encounter Medications at Time [...] nightly 3 L Home oxygen with CPAP docusate sodium (COLACE) 100 mg capsuleIndicatio ns:constipation Take 1 capsule (100 mg total) by mouth 2 (two) times a day as needed for constipation for up to 7 days 14 capsule 01/30/2021 sulfamethoxazole -trimethoprim (BACTRIM DS) 800-160 mg per tablet Take 1 tablet by mouth 2 (two) times a day for 3 days 6 tablet 01/29/2021 1 sulfamethoxazole -trimethoprim (BACTRIM DS) 800-160 mg per tablet Take 1 tablet by mouth 2 (two) times a day for 7 days 14 tablet 01/30/2021 1 acetaminophen (TYLENOL) 325 mg tablet Take 650 [...] for urinary pain 6 tablet 01/31/2021 2 documented as of this encounter Ordered Prescriptions Prescription Sig Dispense Quantity Refills Last Filled Start Date End Date oxyCODONE (ROXICODONE) 5 mg immediate release tabletIndications :Pain Take 1 tablet (5 mg total) by mouth every 6 (six) hours as needed for pain for up to 10 doses 10 tablet 01/30/2021 ibuprofen (ADVIL,MOTRIN) 600 mg tablet Take 1 tablet (600 mg total) by mouth every 6 (six) hours as needed for pain for up to 20 doses 20 tablet 01/30/2021 acetaminophen (TYLENOL) 500 mg tablet Take 2 tablets (1,000 mg total) by mouth every 6 (six) hours as needed for pain 40 tablet 01/30/2021 phenazopyridine (PYRIDIUM) 100 mg tablet Take 1 tablet (100 mg total) by mouth 2 (two) times a day as needed for urinary pain 6 tablet 01/31/2021 2 sulfamethoxazole- trimethoprim (BACTRIM DS) 800-160 mg per tablet Take 1 tablet by mouth 2 (two) times a day for 7 days 14 tablet 01/30/2021 1 oxybutynin (DITROPAN) 5 mg tablet Take 1 tablet (5 mg total) by mouth 3 (three) times a day as needed (bladder spasms) for up to 20 doses 20 tablet 01/30/2021 2 docusate sodium (COLACE) 100 mg capsuleIndication s:constipation Take 1 capsule (100 mg total) by mouth 2 (two) times a day as needed for constipation for up to 7 days 14 capsule 01/30/2021 1 documented in this encounter Discharge Disposition Disposition Code Departure Means Destination Discharge to home or self care documented in this encounter Progress Notes * Toby Ibrahim MD - 01/31/2021 9:35 AM CDT [facility] Daily Progress Note Urology PATIENT NAME: Howie Delaney : 1965 ADMIT DATE: 01/30/2021 11:21 AM LOS: 0 Subjective CHIEF COMPLAINT: Urethral erosion INTERVAL HISTORY: Mild bradycardia overnight with HR high 40s. BP stable. Reporting lightheadednessstarting around 0500. EKG completed demonstrating sinus osbaldo. Coreg dose held this AM. Pain well controlled. Objective MEDICATIONS: Scheduled: acetaminophen, 1,000 mg, oral, Q6H RUTHANN allopurinoL, 100 mg, oral, BID ampicillin-sulbactam, 1.5 g, intravenous, Q6H atorvastatin, 40 mg, oral, Nightly carvediloL, 12.5 mg, oral, BID with meals (bkfst, dinner) enoxaparin, 40 mg, subcutaneous, Q12H RUTHANN furosemide, 20 mg, oral, QAM gabapentin, 200 mg, oral, Nightly ketorolac, 15 mg, intravenous, Q6H RUTHANN vancomycin, 15 mg/kg, intravenous, Q12H Infusions: PRN: docusate sodium ??? ondansetron ODT OR ondansetron ??? oxybutynin ??? oxyCODONE ??? phenazopyridine VITALS: 24hr Min/Max: Temp Min: 35.6 ??C (96.1 ??F) Max: 36.7 ??C (98.1 ??F) Pulse Min: 44 Max: 80 BP Min: 93/55 Max: 129/71 Resp Min: 10 Max: 47 SpO2 Min: 91 % Max: 100 % Most Recent: Vitals: 01/30/21 2035 01/31/21 0037 01/31/21 0450 01/31/21 0735 BP: 101/54 110/61 96/55 103/58 BP Location: Right arm Right arm Right arm Right arm Patient Position: HOB 30 degrees HOB 30 degrees HOB 30 degrees HOB 30 degrees Pulse: 79 50 (!) 47 (!) 44 Resp: 18 18 18 16 Temp: 36.3 ??C (97.4 ??F) 36.2 ??C (97.2 ??F) (!) 35.8 ??C (96.4 ??F) 36.2 ??C (97.1 ??F) TempSrc: Temporal Temporal Temporal Temporal SpO2: 100% 96% 96% 96% Weight: Height: I/O last 2 completed shifts: In: 4091 [P.O.:1200; I.V.:2791; IV Piggyback:100] Out: 1650 [Urine:1650] Intake/Output Summary (Last 24 hours) at 01/31/2021 0935 Last data filed at 01/31/2021 0735 Gross per 24 hour Intake 4091 ml Output 1850 ml Net 2241 ml PHYSICAL EXAM: Constitutional: NAD, well developed, well nourished. A&O x 4. HEENT: PERRL, EOMI, anicteric. Lungs: Unlabored breathing. Trachea midline. Cardiovascular: Regular rate. No JVD. GI: Abdomen soft, non-distended Wound: Incision clean, dry, intact with suture. No erythema/swelling/drainage noted. Skin: No new rashes, lesions or bruises Extremities: Normal without edema or cyanosis Neurologic: Non-focal, CNII-XII grossly intact Psychiatric: Normal affect and mood. LAB/ RADIOLOGY/ DIAGNOSTIC REVIEW: Recent Labs Lab Units 01/31/21 0559 SODIUM mmol/L 137 POTASSIUM PLASMA mmol/L 5.3* CHLORIDE mmol/L 103 CO2 mmol/L 28 BUN SERUM mg/dL 28* CREATININE mg/dL 1.41* GLUCOSE mg/dL 163 CALCIUM mg/dL 9.0 I have reviewed the laboratory results. ASSESSMENT/ PLAN: Howie Delaney is a 55 y.o. male with Urethral erosion, status post explant of AUS. Now POD 1. Pain: Scheduled tylenol, NSAID, gabapentin, PRN oxycodone Diet: regular DVT PPx: lovenox, SCDs Activity: with assist, PT, OT Dispo: likely home today Toby Ibrahim MD General Surgery Cosigned by Suzette Rogers MD at 02/04/2021 9:38 AM CDT * Carla Del Valle, [facility] - 01/30/2021 6:52 PM CDT Howie Delaney has been consulted for vancomycin dosing for surgical prophylaxis and UTI. Initiate vancomycin dose of 2000 mg IV every 12 hours per protocol for weight of 138.3 kg and CrCl= 69.6 ml/min. Pharmacy will monitor renal function daily and adjust dosing if necessary. The guidelines below were used to determine the initial dose and interval: Empiric Vancomycin Dose: 15-20 mg/kg per dose based on actual body weight 15 mg/kg for most patients 20 mg/kg considered in severely ill patients Doses will be rounded to the nearest 250mg dose Maximum empiric dose: 2000mg per dose For bariatric patients (Weight >100kg and BMI >40kg/m2): 10-15 mg/kg per dose based on actualbody weight A higher first dose (15-20 mg/kg) may be considered in severely ill patients, and decreased to 10-15mg/kg for subsequent doses. Maximum empiric dose: 2000mg per dose Initial Frequency: Table 1. Recommended Dosing Interval Estimated Creatinine Clearance (mL/min) Recommended Interval Age < 35 years with normal renal function Every 8 hours >90 Every 8 hours 50-90 Every 12 hours 30-49 Every 24 hours < 30* dose x1, with random level drawn 24 hours later IHD See IHD recommendations below *Because of the potential for vancomycin-induced nephrotoxicity, use IV vancomycin cautiously in patients with a CrCl < 30 mL/min who are not on dialysis. Consider alternatives in this situation Vancomycin Troughs: Vancomycin troughs will be ordered by pharmacy when appropriate. Doses and intervals will be adjusted to reach the recommended therapeutic range. Therapeutic Ranges: Uncomplicated skin and soft tissue infections: 10-20 mcg/mL All other infections: 15-20 mcg/mL Dosing in Intermittent Hemodialysis (IHD): Empiric dose: 10-15 mg/kg per dose based on actual body weight Maximum empiric dose: 1500mg per dose A first dose should be given as soon as possible Subsequent doses should be administered after each HD session The trough should be obtained just prior to the 3rd HD session Trough goal: 20-30 mcg/mL Table 2. Dose Adjustment in IHD Pre-dialysis vancomycin level (mcg/mL) Dosage adjustment <= 20 Increase dose by 250-500 mg 20 - 30 No change in current therapy > 30 Decrease dose by 250-500 mg * Carla Del Valle RPh - 01/30/2021 6:46 PM CDT Patient weight = 138.3 kg, BMI = 41.37, CrCl = 69.6 ml/min Change enoxaparin dose from 40 mg every 24 hours to 40 mg every 12 hours per pharmacy dosing protocol. Enoxaparin (subcutaneous) Indication Patient Weight 'And' BMI Creatinine Clearance Dose VTE-Prophylaxis Dosing (for medical patients with acute illness and non-orthopedic surgical patients) Any - < 10 ml/min Recommend Heparin 5,000 units BID < 50 kg - >= 10 ml/min Enoxaparin 30 mg every 24 hours (or Recommend Heparin 5,000 units BID) 50 - 100 kg - 10 - 30 ml/min Enoxaparin 30 mg every 24 hours > 100 kg <= 40 50 - 100 kg - > 30 ml/min Enoxaparin 40 mg every 24 hours > 100 kg <= 40 > 100 kg > 40 10 - 30 ml/min Enoxaparin 40 mg every 24 hours > 100 kg > 40 > 30 ml/min Enoxaparin 40 mg every 12 hours VTE-Prophylaxis Dosing (for orthopedic surgical patients- Do NOT adjust per protocol) < 50 kg - Recommend Heparin 5,000 units BID 50 - 100 kg - > 30 ml/min Recommend Enoxaparin 30 mg every 12 hours > 100 kg <= 40 > 100 kg > 40 > 30 ml/min Recommend Enoxaparin 40 mg every 12 hours In patients undergoing a neuraxial procedure or with an epidural catheter in place, the maximum dose of enoxaparin is 40 mg daily (avoid twice daily dosing). References: [facility] Toolbook/Dors[employer], last reviewed 05/02/18 [facility] Drug Information Handbook, 28th Edition [facility] / [facility] approval 04/2020 documented in this encounter H&P Notes * Suzette Rogers MD - 01/30/2021 11:27 AM CDT I have reviewed the H&P, examined the patient, and endorse the findings as written. Plan of Care : Based on the above findings, I consider Howie Delaney to be an acceptable risk for : Procedure(s): ARTIFICIAL SPHINCTER REMOVAL CYSTOSCOPY Physical examination: GENERAL: Patient is a [...] Normal affect and mood, oriented x 3. Source Note - Ranjana Coker NP - 01/27/2021 10:10 AM CDT Images from the original note were not included. Center for Preoperative Assessment and Planning Preoperative Evaluation Record Evaluation type/location: TPAP from [facility] Planned procedure site: [facility] OR Date: 01/27/21 Anesthesia Evaluation NOTE: This note represents a preoperative evaluation initiated via telephone interview. NO PHYSICALEXAM was performed at the time of initial assessment. A physical exam may be added to this note anddocumented below. Procedure(s): ARTIFICIAL SPHINCTER REMOVAL CYSTOSCOPY Pre-Op Diagnosis Codes: * Urethral erosion [N36.8] HISTORY HPI 55 yo male with a history of HTN, HLD, CHF, pulmonary hypertension, MIRELLA on CPAP with supplemental O2, fatty liver, CKD stage III, and failed artificial sphincter being evaluated prior to artificial sphincter removal. Past Medical History Information obtained from: patient and chart. Neurological Pertinent negatives: seizures; neuromuscular disease; CVA/stroke; TIA; CEA; ICA stenosis; dementia/mild cognitive impairment and carotid artery stent Cardiovascular + Hypertension (states average BP now is 106/70, however occasionally SBP can drop under 100, managed by engineering inspector at [facility], carvedilol has been lowered) Hypertension year diagnosed: 2010. + CHF + PAD/Aorta disease (seen by vascular 01/16/2021 for possible venous insufficiency 2/2 BLE edema, continue to wear compression stockings plan to check venous reflux study) - Pertinent negatives: CAD ; [place] ; CABG ; valvular heart disease; valve replacement; atrial fibrillation; arrhythmia; pacemaker/ICD; DVT/PE; drug- eluting stent(s); bare metal stent(s) and coronary angioplasty Comments: Last office visit with cardiology TECHNICAL EXPERT 08/25/2020, carvedilol decreased at this visit Respiratory + Sleep apnea (MIRELLA) (pressure 6-10) Prescribed device: PAP compliant and CPAP. + Pulmonary hypertension (per patient report, OSH echo pending review) + O2 use outside the hospital - Rest O2: 0L/min. Sleep O2: 3L/min. Activity O2: 0L/min. Pertinent negatives: COPD; asthma and non-smoker Comments: Hospitalized 11/20/2020 for respiratory acidosis with hypoxia after falling asleep without CPAP machine, he had passed out/fell in kitchen, taken to OSH and CVA ruled out Hepatic / Heme + Liver disease (fatty liver) + History of anemia (last H&H 13.1/39.3 on 11/21/2020) Pertinent negatives: history of thrombocytopenia and history of Sheila positive Gastrointestinal Pertinent negatives: GERD and hiatal hernia Renal / + Renal disease (nephrology Dr Sauer, last office visit 11/26/2020, stage III CKD with baseline creatinine 1.3-1.4) - CKD Pertinent negatives: dialysis and nephrolithiasis Musculoskeletal/Pain + Chronic pain (cervical stenosis, DDD) - neck pain and back pain. Pertinent negatives: chronic opioid use and previous treatment for opioid use disorder Comments: Fall in 11/2020 resulting in right fibula fracture Endocrine / Other + Obesity (BMI >30) (BMI 40.55)- morbid obesity (BMI>40). Pertinent negatives: diabetes mellitus; thyroid disease; cancer history; rheumatological disease and transplanted organ Functional Capacity Functional capacity: 4-6 METs Comments: Walks 0.5-1 mile daily Can climb 2 flights of stairs without CP, however would have SOB, however would recover quickly Review of Systems + SOB (with activity such as climbing stairs, chronic and unchanged) + palpitations (occasionally, last palpitations prior to 07/2020) + orthopnea (sleeps at an incline with adjustable bed) + pedal edema (chronic, recently seen by vascular, possibly venous insufficiency) + previous transfusion (2017 2/ hematuria, denies reactions) + syncope (11/2020-led to OSH work up in ) + chronic pain (cervical stenosis, DDD) + numbness/tingling (tingling to left arm, orthopedic following for pinched ulnar nerve) + vision loss (wears corrective lenses) + abdominal pain (2/2 bladder distention for the past week) Pertinent negatives: productive cough; wheezing; recent cold/flu; fever; chest pain; PND; Sickle Cell disease/trait; transfusion reaction; melena/hematochezia; easy bruising; bleeding problems; dizziness; muscle weakness; hard of hearing; heartburn; nausea; dysphagia; diarrhea; dentures/partials; chipped/loose teeth; diaphoresis and no unexpected weight change Comments: Intentional weight loss of 80 pounds since gastric bypass surgery in 07/2020 [...] 1 out of 6. Functional capacity is 4-6 METs. Obstructive sleep apnea (MIRELLA) screening status [...] Patient instructions were provided electronically sent via [employer].Instructed verbally also. Patient verbalized understanding of preoperative plan. Blood bank needs for day of procedure: No type and screen needed Pending labs/tests include: None OSH labs from 11/21/2020: BMP: Na+ 141, K+ 3.7, cl 103, CO2 31, Ca+ 8.5, BUN 26, creatinine 1.32, gl 81, A. 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 The patient currentlyhas no concerning symptoms of COVID19. . Patient's COVID-19 vaccination status is Fully vaccinated.Documentation of vaccination status is available in the [employer] Immunization tab. . Plan for pre-procedure COVID19 testing: Telephone assessment performed. Request placed for pre-procedure COVID19 testing to be performed on 01/27/2021. [facility] will place the order for testing. Result to be reviewed by surgeon's office. Patient with recent OSH admission 11/2020: patient had fallen asleep without his CPAP machine and supplemental O2. He then woke up, ambulated throughout the house and his daughter later found him downon the kitchen floor, difficult to arouse, and had slurred speech. CVA event ruled out at OSH, was found to be in respiratory acidosis and hypoxic. Patient also had echo with bubble study completed 11/20/2020. Given patient's reported history of CHF and pulmonary HTN will need to obtain this record prior to DOS. Discussed with CPAP attending, will need to obtain EKG and echo which will need to be discussed with CPAP attending to determine if [facility] appropriate location for this surgery. [employer] staff message sent to surgeon's office of pending retrievals. OSH discharge summary note: Hospital Course: Howie Delaney is a 55 year old male with history of MIRELLA with nightly CPAP, OSH, CHRF, HTN, HLD, gout, peripheral neuropathy, CKD stage 3, HFpEF with EF75% (05/2020) who presented to [facility] this morning after a fall at home. [...] BID d/t BLE swelling. Upon arrival to [facility], pt a afebrile with stable VS. Labs [...] Stroke service believed that no stroke occurred. Patient states he has had burning with urination for the past week, urine culture completed 01/22/2021 without significant findings. Transferred patient call to surgeon's office to further discuss. Also, sent [employer] staff message. Preoperative evaluation performed by Olivia Jaimes NP on 01/27/21 at 10:55 AM. Follow up note OSH ECHO obtained and reviewed. See diagnostics. TPAP complete Follow-up completed by: Ranjana Coker NP on 01/27/21 at 1:59 PM Patient Active Problem List Diagnosis ??? Chest pain ??? Hyperlipidemia ??? Essential hypertension ??? Urethral erosion Past Medical History: Diagnosis Date ??? Anemia [...] 2017 x2 surgeries related to hematuria ??? STOMACH SURGERY 07/2020 gastric sleeve No Known Allergies Med List Status: Nurse Complete Set By: Aurora Sousa RN at 01/23/2021 1:18 PM Taking? Last Dose Start Date End Date Provider acetaminophen (TYLENOL) 325 mg tablet Past Month 11/07/19 -- Krysta Aldridge MD allopurinoL (ZYLOPRIM) 100 mg tablet 01/23/2021 -- -- Krysta Aldridge MD atorvastatin (LIPITOR) 40 mg tablet 01/22/2021 -- -- Krysta Aldridge MD CALCIUM ORAL 01/23/2021 -- -- Krysta Aldridge MD carvediloL (COREG) 12.5 mg tablet 01/23/2021 01/06/21 -- Krysta Aldridge MD cyanocobalamin, vitamin B-12, (VITAMIN B-12 ORAL) 01/23/2021 -- -- Krysta Aldridge MD furosemide (LASIX) 20 mg tablet 01/23/2021 -- -- Krysta Aldridge MD gabapentin (NEURONTIN) 100 mg capsule 01/22/2021 -- -- Krysta Aldridge MD multivitamin tablet 01/23/2021 -- -- Krysta Aldridge MD UNABLE TO FIND 01/22/2021 -- -- Krysta Aldridge MD No current facility-administered medications for this encounter. Current Outpatient Medications: ??? acetaminophen (TYLENOL) 325 mg tablet ??? allopurinoL (ZYLOPRIM) 100 mg tablet ??? atorvastatin (LIPITOR) 40 mg tablet ??? CALCIUM ORAL ??? carvediloL (COREG) 12.5 mg tablet ??? cyanocobalamin, vitamin B-12, (VITAMIN B-12 ORAL) ??? furosemide (LASIX) 20 mg tablet ??? gabapentin (NEURONTIN) 100 mg capsule ??? multivitamin tablet ??? UNABLE TO FIND Social History Tobacco Use Smoking Status Never Smoker Smokeless Tobacco Never Used Substance and Sexual Activity Alcohol Use No Substance and Sexual Activity Drug Use Never History reviewed. No pertinent family history. There were no vitals filed for this visit. Relevant diagnostics: ECG(s): 11/20/20:(OSH) Normal sinus rhythm, possible LAE Echocardiogram(s): 11/20/20: (OSH) SUMMARY: Technically difficult/suboptimal echo LV systolic function is hyperdynamic with an EF of 75-80%. The LV diastolic function is normal, consistent with normal LV filling pressures. Normal RV systolic function. No significant valvular dysfunction. Mild pulmonary hypertension, estimated PASP is 37 mmHg. There is no evidence of ASD/PFO by color Doppler and bubble study interrogation. Stress test(s): N/A Cardiac catheterization(s): N/A PFT(s): OS ([facility] Everywhere) 04/30/2020: IMPRESSION: 1. ??Moderate Restrictive Ventilatory Limitation - low ERV is suggestive of extraparenchymal restriction. 2. No bronchodilator response, however this does not preclude the use of bronchodilators 3. There is no previous study available for comparison Vascular studies: N/A Other: OS ([facility]) MRI Brain 11/20/2020: IMPRESSION: 1. No acute intracranial hemorrhage or evidence of acute ischemic infarct. OS ([facility] Everywhere) CT Angio Brain Neck [...] to be occluded is probably a vein. OS ([facility] Everywhere) Holter Read 14 day [...] ectopic atrial beats. Conclusion: No sustained arrhythmias. Creatinine: 01/21/2021: 1.3 mg/dL Alexis index score: 90 documented in this encounter Nursing Notes * Jessica Soto RN - 01/31/2021 6:55 AM CDT Noted pt's heart rate ranging from 38-54. And b/p 96/55. Pt stated he was light headed . Notified Dr Castillo of above. EKG ordered. Dr Castillo here to see ekg and speak with pt.. Labs were ordered.Will monitor. * Marisel Cotto RN - 01/30/2021 4:36 PM CDT MD Dela Cruz contacted; patient reports not having anyone to stay with him overnight; discussed admitting patient; MD Berry recommends admitting patient as well; documented in this encounter Miscellaneous Notes * Plan of Care - Jenifer Martell RRT - 01/31/2021 10:48 AM CDT Patient was ordered on NPPV for respiratory distress. Patient is tolerating well. Plan - Continue NPPV as ordered Patient was ordered on NPPV for respiratory distress. Patient is tolerating well. Plan - Continue NPPV as ordered * Plan of Care - Rossana Fitzgerald RN - 01/31/2021 10:38 AM CDT Problem: Health Behavior: Goal: Understanding of discharge needs will improve Outcome: Progressing Problem: Respiratory: Goal: Ability to maintain adequate ventilation will improve Outcome: Progressing Goal: Identification of resources available to assist in meeting health care needs will improve Outcome: Progressing Problem: Urinary Elimination: Goal: Amount of urine per voiding will increase Outcome: Progressing Goal: Experiences of bladder distention will decrease Outcome: Progressing Problem: Bowel/Gastric: Goal: Gastrointestinal status for postoperative course will improve Outcome: Progressing Problem: Fluid Volume: Goal: Ability to maintain a balanced intake and output will improve Outcome: Progressing Problem: Physical Regulation: Goal: Postoperative complications will be avoided or minimized Outcome: Progressing Problem: Respiratory: Goal: Ability to maintain adequate ventilation will improve Outcome: Progressing Goal: Respiratory status will improve Outcome: Progressing Problem: Safety: Goal: Ability to remain free from injury will improve Outcome: Progressing Problem: Sensory: Goal: Pain level will decrease Outcome: Progressing Problem: Skin Integrity: Goal: Evidence of wound healing without infection will improve Outcome: Progressing Problem: Urinary Elimination: Goal: Will remain free from infection Outcome: Progressing Goals: Clinical Goals for the Shift: Pain <4; I/S 10x/hr, ankle pumps, out of bed Summary: * Plan of Care - Jessica Soto RN - 01/31/2021 5:43 AM CDT Problem: Health Behavior: Goal: Understanding of discharge needs will improve Outcome: Progressing Problem: Respiratory: Goal: Ability to maintain adequate ventilation will improve Outcome: Progressing Goal: Identification of resources available to assist in meeting health care needs will improve Outcome: Progressing Problem: Urinary Elimination: Goal: Amount of urine per voiding will increase Outcome: Progressing Goal: Experiences of bladder distention will decrease Outcome: Progressing Problem: Bowel/Gastric: Goal: Gastrointestinal status for postoperative course will improve Outcome: Progressing Problem: Fluid Volume: Goal: Ability to maintain a balanced intake and output will improve Outcome: Progressing Problem: Physical Regulation: Goal: Postoperative complications will be avoided or minimized Outcome: Progressing Problem: Respiratory: Goal: Ability to maintain adequate ventilation will improve Outcome: Progressing Goal: Respiratory status will improve Outcome: Progressing Problem: Safety: Goal: Ability to remain free from injury will improve Outcome: Progressing Problem: Sensory: Goal: Pain level will decrease Outcome: Progressing Problem: Skin Integrity: Goal: Evidence of wound healing without infection will improve Outcome: Progressing Problem: Urinary Elimination: Goal: Will remain free from infection Outcome: Progressing Goals: Clinical Goals for the Shift: pain 4 or less this shift, ankle pumps 15min/hr, i/s 10/hr * Perioperative Nursing Note - Meaghan Andres RN - 01/30/2021 3:08 PM CDT Sphincter Explant hand delivered to lab for aerobic, anaerobic, gram stain. Herbert Andres RN * Op Note - Suzette Rogers MD - 01/30/2021 2:19 PM CDT Date of Surgery: 01/30/2021 Preoperative diagnosis: Suspect erosion of the artificial urinary sphincter, incomplete bladder emptying, fluid collection around the artificial urinary sphincter pump, and dysuria during urination Post-operative diagnosis: erosion of the artificial urinary sphincter in the bulbar urethra on the dorsal side at 11:00 a.m. position on cystoscopy, incomplete bladder emptying, urine collection around the artificial urinary sphincter pump, and dysuria during urination Procedure: Cystoscopy, Removal of artificial urinary sphincter for the entire system, including thepump, cuff, tubings, and pressure ring balloon Surgeon: Suzette Rogers MD Superintendent Cemetery: Jeffry Bunn MD Anesthesia: General Complications: None Estimated blood loss: None Specimen: artificial urinary sphincter sent for culture, aerobic and anaerobic Intraoperative findings: There is a small 2 mm erosion of the bulbar urethral cuff into the bulbar urethra on the dorsal side and 11 o'clock position on cystoscopy, there is urine collection around the artificial urinary sphincter pump in the right anterior hemiscrotum, there is no pus or prudent drainage Indication for surgery: Patient had a history of male stress urine incontinence, he has artificial urinary sphincter placement in August 2017. He was actually doing well until about a week ago when hestarted to have difficulty emptying the bladder, incomplete bladder emptying, and more recently dysuria during urination. He also noticed increasing fluid collection around the pump, making it difficult to use. His AUS was deactivated, on office cystoscopy I suspect there may be a pinhole erosion of his AUS around the bulbar urethral cuff. We leave his AUS deactivated, and bring the patient to the operating room today for AUS removal. He has no clinical infections, no tenderness or induration or crepitus in the perineum, scrotum, or the suprapubic area, or around the tubing. I recommend the patient to undergo AUS removal. We will start with a cystoscopy today in the operating room. If thereis an erosion will remove the entire artificial urinary sphincter system, and leave the Souza catheter in place to allow the urethral erosion to heal. If there is absolutely no erosion of the AUS system, it does not appears to be infected, we may upsize the AUS cuff, although this is not a common scenario. Patient understand the risks and benefits consented send to proceed. He consented to proceed with removal of the AUS, versus revision of the AUS, cystoscopy, and all indicated procedures Surgery in details: Patient was identified in the preop area, started on IV (weight based) vancomycin and Unasyn 3 gramone hour prior to the procedure. Bilateral SCDs placed for DVT prophylaxis. He was prepped with ChloraPrep. He was then prepped and draped in standard surgical fashion. Flexible cystoscopy was then performed, at the bulbar urethral area, we could see a small 2 mm erosion of the bulbar urethra, on the dorsal side, at 11:00 a.m. position on cystoscopy. Underneath the urethral erosion opening, I could see the cuff of the AUS. There is no pus draining through the urethral erosion. I put a wire inside the cystoscope and able to scope it into the bladder, we put a Nenana tip catheter into the bladder lumen. Next we make incision in the perineum, we dissected until we get down to the bulbar urethral cuff, I was able to put a vessel loop around the cuff while removing the cuff. The cuff itself is intact. With the vessel behind the urethra inspect the urethra. The erosion occurs on the dorsal side, it isnot amendable for direct visual repair because his behind the urethra. Is also small measuring onlyabout 2 mm. The urethra actually looks very healthy otherwise. We irrigated incision ample amount antibiotics containing irrigant. Next we make a suprapubic incision over the previous connector site. All the connectors, the pressure ring balloon, the pump and the tubings were removed from the patient's. Again there is no purulence or pus or clinical infection in the system. However the pump has fluid collection around and looks like there is a small urine collection around the pump. Urine is clearly and is not infected. After entire system has in removed from the patient's, we irrigated usual incision with ample amount normal saline containing irrigant. We then closed the pseudocapsule over the AUS cuff site to isolate this away from the scrotum. We closed the dartos and the skin using absorbable suture. We also closed the other incision using absorbable suture. Prior to that, we also put a suture on the rectus fascia with interrupted 2-0 Vicryl. All counts was correct at the conclusion of the case. The Souza catheter is draining clear urine. The plan is for the patient to have a Souza catheter to go home for the next 3 weeks or so. That will get a periurethral retrograde urethrogram, then a VCUG to make sure that the urethral erosion/opening is healed without extravasation of contrast. Radiology can remove the Souza catheter to do the VCUG portion for the could see the bulbar urethra well on VCUG. Counts at the conclusion of the case: Correct Presence Statement: IDr. Suzette, was present throughout the surgery. * Brief Op Note - Suzette Rogers MD - 01/30/2021 2:19 PM CDT Operative Progress Note Surgical Team: Surgeon(s) and Role: * Suzette Rogers MD - Primary * Jeffry Conroy MD - Resident - Assisting Anesthesiologist: Neftali Berry MD; Geovany Osorio MD ASSEMBLY ASSOCIATE: Ashly Brewster CRNA [place] Apprentice: Natali Freeman RN; Meaghan Andres RN Scrub: Letitia Spangler ST DATE OF SURGERY : 01/30/2021 Preoperative Diagnosis: Pre-op Diagnosis * Urethral erosion [N36.8] Postoperative Diagnosis: Post-op Diagnosis * Urethral erosion [N36.8] Procedure(s): Procedure(s) (LRB): ARTIFICIAL SPHINCTER REMOVAL (N/A) CYSTOSCOPY (N/A) Operative Findings: Erosion of bulbar urethral cuff in the dorsal side at 11:00 a.m. position on cystoscopy, a small fluid collection around the pump Estimated Blood Loss: No blood loss documented. Intraoperative Fluids: See anesthesia record mls Specimens: No specimen collected in procedure Implants: Nothing was implanted during the procedure Blood/Blood Products Transfused: 0 mls Complications: None Condition on Discharge from the operating room was stable Roberto Rogers MD Date: 01/30/2021 Time: 3:19 PM TEACHING ATTESTATION : I was present and directly participated in the entire procedure (including opening and closing). * Pre-Procedure Instructions - Olivia Jaimes NP - 01/27/2021 10:04 AM CDT [facility] Planning CPAP Clinic Location: [facility] The night before your surgery: * Do not eat or drink anything after midnight. This includes candy, mint, gums, chewable antacids (TUMS, Rolaids) and cough drops * Do not smoke after midnight the night before surgery. It is best to stop smoking now to improve your health. The morning of your surgery: * You may brush your teeth and [...] Pre-Surgery Instructions: Medication Instructions ??? acetaminophen (TYLENOL) 325 mg tablet Take on day of surgery if needed ??? allopurinoL (ZYLOPRIM) 100 mg tablet Take morning of surgery ??? atorvastatin (LIPITOR) 40 mg tablet Take per usual schedule. ??? CALCIUM ORAL Don't take on day of surgery ??? carvediloL (COREG) 12.5 mg tablet Take morning of surgery ??? cyanocobalamin, vitamin B-12, (VITAMIN B-12 ORAL) Don't take on day of surgery ??? furosemide (LASIX) 20 mg tablet Take on day of surgery if needed ??? gabapentin (NEURONTIN) 100 mg capsule Take per usual schedule. ??? multivitamin tablet Stop taking 1 week prior to surgery ??? UNABLE TO FIND (3Liter oxygen) Take per usual schedule. General Instructions For Medications: ?? * Stop [...] bowel prep or special diet before surgery * Perioperative Nursing Note - Aurora Sousa RN - 01/23/2021 1:26 PM CDT [facility] for Preoperative Assessment and Planning Perioperative Nursing Note Telephone Preoperative Evaluation ([facility]) - TELEPHONE ONLY, NO PHYSICAL EXAM Date: 01/23/21 Vitals: 01/23/21 1303 Weight: 135.6 kg (299 lb) Height: 182.9 cm (6') CHEST CIRCUMFERENCE: N/A Social History Tobacco Use Smoking Status Never Smoker Smokeless Tobacco Never Used Substance and Sexual Activity Drug Use Never Alcohol Use How often do you have a drink containing alcohol?: Never Outpatient Medications Marked as Taking for the 01/30/21 encounter (Hospital Encounter) Medication Sig Dispense Refill ??? acetaminophen (TYLENOL) 325 mg tablet Take 650 mg by mouth as needed for pain ??? allopurinoL (ZYLOPRIM) 100 mg tablet Take 100 mg by mouth 2 (two) times a day ??? atorvastatin (LIPITOR) 40 mg tablet Take 40 mg by mouth nightly ??? CALCIUM ORAL Take 1 capsule by mouth every morning ??? carvediloL (COREG) 12.5 mg tablet Take 12.5 mg by mouth 2 (two) times a day with meals ??? cyanocobalamin, vitamin B-12, (VITAMIN B-12 ORAL) Take 1 capsule by mouth every morning ??? furosemide (LASIX) 20 mg tablet Take 20 mg by mouth every morning ??? gabapentin (NEURONTIN) 100 mg capsule Take 200 mg by mouth nightly ??? multivitamin tablet Take 1 tablet by mouth every morning ??? UNABLE TO FIND Administer into each nostril nightly 3 L Home oxygen with CPAP Implants No active implants to display in this view. SKIN Piercings Remaining: No Wound (LDAs) Type of Wound (LDA): (None) SCREENINGS Evans Fall Risk Score (Retired): 40 Alexis index score: 90 PATIENT CARE PLANNING Advance Directives (For Healthcare) Advance Directive: Patient has advance directive, copy in chart Communication/Acid Splicer Needs Communication Needs: Glasses Patient's Preferred Language: Bengali Does caregiver's language differ from patient's?: No Is an cook helper needed? : No Assistive Devices/DME: Eyeglasses, CPAP/BiPAP, Oxygen Hearing - Right Ear: Functional Hearing - Left Ear: Functional Discharge Planning Type of Residence: Private residence Living Arrangements: Children Support Systems: Children, Friends/neighbors Patient expects to be discharged to:: Private residence (Friend, Tianna Martinez will be mechanic driver after surgery.) COVID Screening Covid-19 Screening In the last [...] in a congregate living facility (ex. assisted living/assisted facility, prison, [facility])?: No Have you tested positive for COVID-19 within the last 14 days?: No Have you previously tested positive for COVID-19? No Have you had a COVID -19 exposure within the past 14 days? Yes Were both or all people exposed wearing [...] 20 seconds. Use an alcohol- based hand wheat washer that contains at least 60% alcohol if soap and water are not available. ADDITIONAL COMMENTS/ FOLLOW UP * Pre-Procedure Instructions - Aurora Sousa RN - 01/23/2021 1:25 PM CDT PRE-SURGICAL INSTRUCTIONS ??? General Information ?? Surgery location provided to patient. ?? Arrival time and surgical time will be provided by your surgeon. ?? Wear something clean, loose, comfortable and easy to get in and out of. ?? Leave your valuables and any jewelry at home (No metal or piercings are allowed in the operatingroom) ?? Bring your insurance card, a photo ID (like a Safety Sitter's license) and a method of payment for any insurance copay, deductible, or copay for discharge medications. ?? Bring a complete, up to date list of all of your medications including any over the counter medications or supplements you may take. ? How To Prepare Your Skin For Surgery Antiseptic/antibacterial soap will decrease the amount of germs on your skin. It is important to minimize the risk of getting an infection by doing the following: ?? Change all the linens on the bed the night before surgery so you are sleeping on clean fresh sheets and pillowcases. ?? Shower the evening before and the morning of surgery with an antibacterial soap such as Dial or a surgical soap known as chlorhexidine (Hibiclens). You can purchase this soap at any pharmacy or department store or come by our CPAP clinic and we will give it to you free of charge. Do not use thissoap on your face or hair. ?? Wash your hair and face with your regular shampoo (no conditioners) and facial cleanser. ?? Take a shower using ?? cup (2 oz.) of antiseptic soap applied to a clean fresh washcloth. Scrub your entire body from the neck down. If you can't reach the surgical site, such as your back, have someone help you with your shower. Step out of the water and leave soap on your skin for 2 minutes prior to rinsing off. Rinse thoroughly and dry yourself off with a clean fresh dry towel. ?? Wear clean clothes or pajamas to sleep in and on morning of surgery. ?? Nothing extra on the skin or hair such as deodorant, makeup, hair products, lotions, powders, Vaseline, creams, or perfumes the evening before and the morning of surgery. ?? The morning of the surgery repeat the shower process with the remaining ?? cup (2 oz.) of surgical scrub using another fresh wash cloth and towel. ?? Do not shave the morning of surgery. ?? REMEMBER no deodorant, make-up, lotions, powders, creams, Vaseline, oils, conditioners or hair products the morning of the surgery. COVID TESTING PLAN: Please note, the below is the Pre-Procedure COVID Testing Plan for the Center for Preoperative Assessment & Planning for Anesthesia. Surgeon's offices may require additional testing. If so, the surgeon's office will reach out to the patient to discuss further testing. COVID Test Request Placed in Epic to [facility]. HOLIDAY hours may vary at testing site. Test to be performed on 01/27/21 at [facility] ([facility] [place] [address], M-F 8:30a-4:30p, Sat/Sun 8a-12:30p, Call once on site@[phone]. Telephone assessment performed. Patient states that they are fully COVID vaccinated and [facility]. If you have COVID testing or should have COVID testing for your surgery/procedure, please read below section: If you need to reschedule your COVID test to a different location or if your surgery gets rescheduled, you MUST call [phone] Tuesday-Tuesday 8am-4:30pm to get your COVID testing rescheduled or your lab order will not be available at Testing Sites. COVID Testing is only valid for up to 96 hours prior to surgery date, unless otherwise specified. If you are unable to reach staff at the above phone number, please call the CPAP Staff at [phone]. This number cannot order a lab test, but can attempt to contact the above number/staff to assist you. We are available Tuesday-Tuesday 8am-4:30pm . We recommend you Self-Isolate after COVID Testing: Stay at home, if possible until your surgery date. Maintain a 6 foot distance from other people (social distancing). Avoid touching your eyes, nose and mouth with unwashed hands. Wash your hands often with soap and water for at least 20 seconds. Use an alcohol- based hand wheat washer that contains at least 60% alcohol if soap and water are not available. All patients should read below section: All visitors/patients are being asked to wear a clean mask when entering the hospital. COVID 19 Updates & Visitor Policy: Please access [email or web address] for the most updated information. Information on [facility]: Please view [email or web address] (Patient & Visitor Information) for additional details regarding Advanced Directive forms, AWARE, directions, parking information, lodging, Internet access, dining and more. Information on [facility]: Please view [email or web address] (Patient and Visitor Information) for parking/directions and more. For MyChart information, to activate account or password recovery, please go to [email or web address] or call [phone] (toll-free: [phone]). Information for Suicide Prevention: National Suicide Prevention Lifeline (3-830-077-EOFE (1457)). Surgery Times: For patients having surgery @ [facility], [facility] or [facility], if your surgeon's office has not notified you of your surgery time by NOON THE BUSINESS DAY BEFORE your surgery, please call [phone] and ask for your surgeon'soffice Dr. Rogers. documented in this encounter Plan of Treatment Not on file documented as of this encounter Procedures Procedure Name Priority Date/Time Associated Diagnosis Comments EGFR STAT 01/31/2021 5:59 AM CDT PHOSPHORUS STAT 01/31/2021 5:59 AM CDT MAGNESIUM STAT 01/31/2021 5:59 AM CDT BASIC METABOLIC PANEL STAT 01/31/2021 5:59 AM CDT ECG 12-LEAD STAT 01/31/2021 5:16 AM CDT AEROBIC AND ANAEROBIC CULTURE AND GRAM STAIN Routine 01/30/2021 3:05 PM CDT CYSTOSCOPY 01/30/2021 1:25 PM CDT Urethral erosion Case Notes [facility] AMS rep present for the case: Flexible cysto; irrigant antibiotics; sterile spray bottle Special Needs [facility] AMS rep present for the case: Flexible cysto; irrigant antibiotics; sterile spray bottle PLACEMENT ARTIFICIAL SPHINCTER 01/30/2021 1:25 PM CDT Urethral erosion Case Notes [facility] AMS rep present for the case: Flexible cysto; irrigant antibiotics; sterile spray bottle Special Needs [facility] AMS rep present for the case: Flexible cysto; irrigant antibiotics; sterile spray bottle POC ISTAT Routine 01/30/2021 12:00 PM CDT documented in this encounter Results * eGFR (01/31/2021 5:59 AM CDT) Pathologist [facility] eGFR 55 mL/min/1.7 3 m2 [facility] Comment: Interpretive Data Reference Interval Normal ?>/= 90 mL/min/1.73m2 Mildly decreased* ? 60 - 89 mL/min/1.73m2 Mildly to moderately decreased ?45 - 59 mL/min/1.73m2 Moderately to severely decreased ??30 - 44 mL/min/1.73m2 Severely decreased ?15 - 29 mL/min/1.73m2 Kidney Failure ?< 15 ??mL/min/1.73m2 *Relative to young adult level Estimated glomerular filtration rate is determined by the CKD-EPI equation recommended by the National Kidney Foundation (KDIGO 2012 Clinical Practice Guideline for the Evaluation and Management of Chronic Kidney Disease. Kidney Intnl Suppl May 2012;3:1). The CKD-EPI equation should not be used for patients with unstable renal function and has not been validated in children and those over 70. Current interpretive data was last reviewed 2020 Blood 01/31/2021 5:59 AM CDT 01/31/2021 6:16 AM CDT Suzette Rogers MD LAB BLOOD ORDERABLES Final Res ult Performing Organization Address [facility] de Phone Number [facility] [id number] [facility]. [facility] [place] [address] * Phosphorus (01/31/2021 5:59 AM CDT) Phosphorus, pl 4.0 2.3 - 4.5 mg/dL [facility] Blood 01/31/2021 5:59 AM CDT 01/31/2021 6:16 AM CDT Suzette Rogers MD LAB BLOOD ORDERABLES Final Res ult Performing Organization Address [facility] de Phone Number [facility] [address] [facility]. [facility] [place] [address] * Magnesium (01/31/2021 5:59 AM CDT) Magnesium 2.0 1.4 - 2.5 mg/dL [facility] Comment: Reference Data. Reference values for Labor and Delivery patients: < or = 0.7 mg/dL to > or = 7.3 mg/dL Current reference data last reviewd on 02/19/2015. Blood 01/31/2021 5:59 AM CDT 01/31/2021 6:16 AM CDT Suzette Rogers MD LAB BLOOD ORDERABLES Final Res ult Performing Organization Address [facility]/ZIP Co de Phone Number [facility] [address] [address] [address] * (ABNORMAL) Basic metabolic panel (01/31/2021 5:59 AM CDT) [facility] Sodium 137 135 - 145 mmol/L [facility] Potassium, pl 5.3(H) 3.3 - 4.9 mmol/L [facility] Chloride 103 97 - 110 mmol/L [facility] CO2 28 22 - 32 mmol/L [facility] Anion gap 6 2 - 15 mmol/L [facility] BUN 28(H) 8 - 25 mg/dL [facility] Creatinine 1.41(H) 0.80 - 1.30 mg/dL [facility] Glucose 163 70 - 199 mg/dL [facility] Comment: [...] 2017. Calcium 9.0 8.5 - 10.3 mg/dL [facility] Blood 01/31/2021 5:59 AM CDT 01/31/2021 6:16 AM CDT Suzette Rogers MD LAB BLOOD ORDERABLES Final Res ult Performing Organization Address City/[facility]/ZIP Co de Phone Number [facility] [address] [address] [place] [address] * ECG 12 lead (01/31/2021 5:16 AM CDT) 01/31/2021 5:16 AM CDT Narrative [facility] - 02/02/2021 11:24 AM CDT Vent Rate: 49 bpm RR Interval: 1207 msec TX Interval: 173 msec QRS Duration: 120 msec QT Interval: 488 msec QTC Interval: 459 msec P-R-T [place]: 45 - 45 - 19 degrees SINUS BRADYCARDIA POSSIBLE LEFT ATRIAL ENLARGEMENT INTRAVENTRICULAR CONDUCTION DELAY [REASON: QRS 120 MS OR WIDER] Poor R wave progression. ABNORMAL ECG Electronically Signed By: Starla Richardson [facility] Suzette Rogers MD ECG ORDERABLES Final Result Performing Organization Address [facility] Co de Phone Number [facility] * (ABNORMAL) Aerobic and anaerobic culture and gram stain Miscellaneous Ureter, right (01/30/2021 3:05 PM CDT) Direct Specimen Exam Stain: No organisms seen. No polymorphonuclear leukocytes seen. [facility] Comment:Testing performed by : [facility], [address] [place] [address]., [id number] Report Amended Report: Very light growth Propionibacterium (Cutibacterium) avidum Susceptibility not performed on this isolate (.) [facility] Comment:Testing performed by : [facility], [address] [place] [address]., [id number] Organism PROPIONIBACTERIUM AVIDUM [facility] Miscellaneous (Ureter, right) 01/30/2021 3:05 PM CDT 01/30/2021 4:20 PM CDT Suzette Rogers MD LAB MICROBIOLOGY - GENERAL ORD ERABLES Edited Result - Final Performing Organization Address [facility] Co de Phone Number [facility] [address] [facility]. [facility] [place] [address] * POC ISTAT (01/30/2021 12:00 PM CDT) K POC 4.6 3.3 - 4.9 mmol/L [facility] Comment: Interpretive Data Unable to assess hemolysis. ??Invitro hemolysis causes falsely elevated potassium. Current Interpretive Data was last revised on 2019. POC Device Number [id number] [facility] POC Performer [id number] [facility] Blood 01/30/2021 12:0 0 PM CDT 01/30/2021 12:00 PM CDT us Suzette Rogers MD LAB BLOOD ORDERABLES Final Res ult [facility] [id number] [facility]. [place] [address] documented in this encounter Visit Diagnoses Diagnosis Urethral erosion- Primary documented in this encounter Admitting Diagnoses Diagnosis Urethral erosion documented in this encounter Administered Medications Inactive Administered Medications - up to 3 most recent administrations Medication Order MAR Action Action Date Dose Rate Site acetaminophen (TYLENOL) tablet 1,000 mg 1,000 mg, oral, Every 6 hours scheduled, First dose on Tue01/30/21 at 1915, Indications: PainIndications:Pain Given 01/31/2021 12:20 PM CDT 1,000 mg Given 01/31/2021 5:13 AM CDT 1,000 mg Given 01/31/2021 12:54 AM CDT 1,000 mg allopurinoL (ZYLOPRIM) tablet 100 mg 100 mg, oral, 2 times daily, First dose on Tue01/30/21 at 2100, Indications: prevention of acute gout attackIndications:prevention of acute gout attack Given 01/31/2021 8:41 AM CDT 100 mg Given 01/30/2021 8:41 PM CDT 100 mg ampicillin-sulbactam (UNASYN) 1.5 g in sodium chloride 0.9% 100 mL IVPB 1.5 g, intravenous, at 200 mL/hr, Administer over 30 Minutes, Every 6 hours, First dose on Tue01/30/21 at 2000, Mini-Bag Plus bag, Indications: Prophylaxis, Surgical, Urinary Tract/Genitourinary InfectionIndications:Prophylaxis, Surgical,Urinary Tract/Genitourinary Infection New Bag 01/31/2021 8:41 AM CDT 1.5 g 200 mL/hr New Bag 01/31/2021 1:04 AM CDT 1.5 g 200 mL/hr New Bag 01/30/2021 8:41 PM CDT 1.5 g 200 mL/hr atorvastatin (LIPITOR) tablet 40 mg 40 mg, oral, Nightly, First dose on Tue01/30/21 at 2100, Indications: hyperlipidemiaIndication s:hyperlipidemia Given 01/30/2021 8:41 PM CDT 40 mg carvediloL (COREG) tablet 12.5 mg 12.5 mg, oral, 2 times daily with meals (bkfst, dinner), First dose on Tue01/30/21 at 1800, Hold for HR <60, Indications: hypertensionIndications: hypertension Given 01/30/2021 6:52 PM CDT 12.5 mg dextrose 5% and sodium chloride 0.45% infusion (premix) 75 mL/hr, intravenous, Continuous, Starting on Tue01/30/21 at 1915 New Bag 01/30/2021 6:52 PM CDT 75 mL/hr 75 mL/hr docusate sodium (COLACE) capsule 100 mg 100 mg, oral, 2 times daily PRN, constipation, Starting on Tue01/30/21 at 1843, Indications: constipationIndications: constipation enoxaparin (LOVENOX) syringe 40 mg 40 mg, subcutaneous, Every 12 hours scheduled, First dose (after last reorder) on Tue01/30/21 at 2100, Indications: Deep Vein Thrombosis PreventionIndications:De ep Vein Thrombosis Prevention Given 01/31/2021 8:41 AM CDT 40 mg Left Lower Abdomen Given 01/30/2021 8:40 PM CDT 40 mg Ri ght Lower Abdomen gabapentin (NEURONTIN) capsule 200 mg 200 mg, oral, Nightly, First dose on Tue01/30/21 at 2100, Do not crush, break, or open., Indications: Neuropathic PainIndications:Neuropathic Pain Given 01/30/2021 8:41 PM CDT 200 mg HYDROcodone-acetaminophen (NORCO) 5-325 mg per tablet 1 tablet 1 tablet, oral, Every 20 min PRN, 3rd line for pain, breakthrough pain, May use as 1st line pain medication if pain not extremely severe and patient able to tolerate PO meds. If unable to tolerate PO meds or outpatient complaining of extremely severe pain, start with Fentanyl and follow with Oral meds., Starting on Tue01/30/21 at 1554, For 2 doses, Phase I, May administer TWO pills together if pain moderate to severe and patient able to tolerate PO meds, after consulting with Anesthesiologist., Indications: PainIndications:Pain Given 01/30/2021 4:45 PM CDT 1 tablet ketorolac (TORADOL) 15 mg/mL injection 15 mg 15 mg, intravenous, Every 6 hours scheduled, First dose on Tue01/31/21 at 0000, For 3 days, For Adult IV push, administer over 15 seconds, Indications: PainIndications:Pain Given 01/31/2021 12:20 PM CDT 15 mg Given 01/31/2021 5:14 AM CDT 15 mg Given 01/31/2021 12:54 AM CDT 15 mg ketorolac (TORADOL) injection 30 mg 30 mg, intravenous, Once, On Tue01/30/21 at 1745, For 1 dose, Phase I, For Adult IV push, administer over 15 seconds Given 01/30/2021 5:17 PM CDT 30 mg Lactated Ringer's (LR) infusion 30 mL/hr, intravenous, Continuous, Starting on Tue01/30/21 at 1215, For 4 hours, Pre-Op, Use a 500 ml bag for End Stage Renal Disease Patients. Discontinue if fluid still running once patient arrives to floor. New Bag 01/30/2021 1:38 PM CDT Restarted 01/30/2021 1:26 PM CDT Rate/Dose Verify 01/30/2021 1:20 PM CDT 30 mL/h r ondansetron (ZOFRAN) injection 4 mg 4 mg, intravenous, Administer over 2 Minutes, Every 6 hours PRN, nausea, vomiting, if not tolerating PO, Starting on Tue01/30/21 at 1843, Indications: nausea and vomitingIndications:nausea and vomiting ondansetron ODT (ZOFRAN-ODT) disintegrating tablet 4 mg 4 mg, oral, Every 6 hours PRN, nausea, vomiting, Starting on Tue01/30/21 at 1843, Indications: nausea and vomitingIndications:nausea and vomiting oxybutynin (DITROPAN) tablet 5 mg 5 mg, oral, Every 6 hours PRN, bladder spasms, Starting on Tue01/30/21 at 1843, Indications: Bladder HyperactivityIndications:Bladder Hyperactivity oxyCODONE (ROXICODONE) tablet 5 mg 5 mg, oral, Every 4 hours PRN, 1st line for pain, Starting on Tue01/30/21 at 1843, Indications: PainIndications:Pain Given 01/31/2021 5:13 AM CDT 5 mg Given 01/30/2021 8:42 PM CDT 5 mg phenazopyridine (PYRIDIUM) tablet 100 mg 100 mg, oral, 2 times daily PRN, urinary pain, Starting on Tue01/30/21 at 1732, Phase I, May discolor urine and sclera. Can stain undergarments and contact lenses. Given 01/30/2021 5:41 PM CDT 100 mg phenazopyridine (PYRIDIUM) tablet 100 mg 100 mg, oral, 2 times daily PRN, urinary pain, Starting on Tue01/30/21 at 2245, Phase I, May discolor urine and sclera. Can stain undergarments and contact lenses. Given 01/31/2021 1:04 AM CDT 100 mg phenazopyridine (PYRIDIUM) tablet 100 mg 100 mg, oral, 2 times daily PRN, urinary pain, Starting on Tue01/31/21 at 1210, May discolor urine and sclera. Can stain undergarments and contact lenses. Given 01/31/2021 12:48 PM CDT 100 mg vancomycin (VANCOCIN) 2,000 mg in sodium chloride 0.9% 500 mL IVPB 2,000 mg, intravenous, at 260 mL/hr, Administer over 120 Minutes, Once, On Tue01/30/21 at 1215, For 1 dose, Pre-Op, Administer within 120 minutes of incision., Indications: Prophylaxis, SurgicalIndications:Prophylaxis, Surgical New Bag 01/30/2021 12:19 PM CDT 2,000 mg 260 mL/hr vancomycin 2,000 mg/520 mL in sodium chloride 0.9% (premix) 2,000 mg 2,000 mg (rounded from 2,074.5 mg = 15 mg/kg ? 138.3 kg), intravenous, Administer over 120 Minutes, Every 12 hours, First dose on 01/31/21 at 0000, Indications: Prophylaxis, Surgical, Urinary Tract/Genitourinary InfectionIndications:Prophylaxis, Surgical,Urinary Tract/Genitourinary Infection New Bag 01/31/2021 2:00 AM CDT 2,000 mg documented in this encounter Discontinued Medications Medication Sig Discontinue Reason Start Date End Da te amitriptyline (ELAVIL) 25 mg tabletIndications:depres jorje Take 25 mg by mouth nightly 01/23/2021 metoprolol XL (TOPROL-XL) 50 mg 24 hr tablet Take 50 mg by mouth daily. 01/23/2021 isosorbide mononitrate ER (IMDUR) 60 mg 24 hr tablet Take 60 mg by mouth daily. 01/23/2021 isosorbide mononitrate ER (IMDUR) 30 mg 24 hr tablet Take 30 mg by mouth daily. 01/23/2021 tamsulosin (FLOMAX) 0.4 mg extended release capsule 0.4 mg nightly. 01/23/2021 pravastatin (PRAVACHOL) 20 mg tablet Take 20 mg by mouth nightly. 01/23/2021 atorvastatin (LIPITOR) 20 mg tabletIndications:hyperl ipidemia Take 20 mg by mouth daily 01/23/2021 carvedilol CR (COREG CR) 10 mg 24 hr capsuleIndications:hyper tension Take 10 mg by mouth 2 (two) times a day 01/23/2021 documented as of this encounter Historical Medications * This list may reflect changes made after this encounter. UNABLE TO FIND Administer into each nostril nightly 3 L Home oxygen with CPAP cyanocobalamin, vitamin B-12, (VITAMIN B-12 ORAL)Indications :supplement Take 1 capsule by mouth every morning CALCIUM ORALIndications: supplement Take 1 capsule by mouth every morning atorvastatin (LIPITOR) 40 mg tabletIndication s:hyperlipidemia Take 40 mg by mouth nightly gabapentin (NEURONTIN) 600 mg tabletIndication s:Neuropathic Pain Take 600-1,200 mg by mouth 2 (two) times a day as needed allopurinoL (ZYLOPRIM) 100 mg tabletIndication s:prevention of acute gout attack Take 100 mg by mouth 2 (two) times a day carvediloL (COREG) 12.5 mg tabletIndication s:hypertension Take 12.5 mg by mouth 2 (two) times a day with meals 01/06/2021 2 acetaminophen (TYLENOL) 325 mg tablet Take 650 mg by mouth as needed for pain 11/07/2019 1 carvedilol CR (COREG CR) 10 mg 24 hr capsuleIndicatio ns:hypertension Take 10 mg by mouth 2 (two) times a day 1 atorvastatin (LIPITOR) 20 mg tabletIndication s:hyperlipidemia Take 20 mg by mouth daily 1 added in this encounter Active and Recently Administered Medications Times are shown in CDT. Scheduled Medication Order 01/29/2021 01/30/2021 01/31/2021 acetaminophen (TYLENOL) tablet 1,000 mg 1,000 mg, oral, Every 6 hours scheduled, First dose on Tue01/30/21 at 1915, Indications: Pain 1852 (Given - Provider: Rossana Fitzgerald RN) 0054 (Given - Provider: Jessica Soto RN)0513 (Given - Provider: Jessica Soto RN)1220 (Given - Provider: Rossana Fitzgerald, AVA) allopurinoL (ZYLOPRIM) tablet 100 mg 100 mg, oral, 2 times daily, First dose on Tue01/30/21 at 2100, Indications: prevention of acute gout attack 2040 (Given - Provider: Jessica Soto RN) 0841 (Given - Provider: Rossana Fitzgerald RN) ampicillin-sulbactam (UNASYN) 1.5 g in sodium chloride 0.9% 100 mL IVPB 1.5 g, intravenous, at 200 mL/hr, Administer over 30 Minutes, Every 6 hours, First dose on Tue01/30/21 at 2000, Mini-Bag Plus bag, Indications: Prophylaxis, Surgical, Urinary Tract/Genitourinary Infection 2040 (New Bag - Provider: Jessica Soto RN) 0104 (New Bag - Provider: Jessica Soto RN)0841 (New Bag - Provider: Rossana Fitzgerald RN) ampicillin-sulbactam (UNASYN) 3 g in sodium chloride 0.9% 100 mL IVPB (COMPLETED) 3 g, intravenous, at 200 mL/hr, Administer over 30 Minutes, Once, On Tue01/30/21 at 1215, For 1 dose, Pre-Op, Administer within 60 minutes of incision. Mini-Bag Plus bag, Indications: Prophylaxis, Surgical 1327 (New Bag - Provider: Ashly Brewster CRNA) atorvastatin (LIPITOR) tablet 40 mg 40 mg, oral, Nightly, First dose on Tue01/30/21 at 2100, Indications: hyperlipidemia 2040 (Given - Provider: Jessica Soto, AVA) carvediloL (COREG) tablet 12.5 mg 12.5 mg, oral, 2 times daily with meals (bkfst, dinner), First dose on Tue01/30/21 at 1800, Hold for HR <60, Indications: hypertension 185 (Given - Provider: Rossana Fitzgerald RN) 0919 (Not Given - Provider: Rossana Fitzgerald RN - Reason: Other - Comment: Ok to hold per MD d/t HR and BP) enoxaparin (LOVENOX) syringe 40 mg 40 mg, subcutaneous, Every 12 hours scheduled, First dose (after last reorder) on Tue01/30/21 at 2100, Indications: Deep Vein Thrombosis Prevention 2039 (Given - Provider: Jessica Soto RN) 0841 (Given - Provider: Rossana Fitzgerald, AVA) furosemide (LASIX) tablet 20 mg 20 mg, oral, Every morning, First dose on Tue01/31/21 at 0900, Indications: Edema 918 (Not Given - Provider: Rossana Fitzgerald RN - Reason: Other - Comment: Ok to hold per MD d/t HR and BP) gabapentin (NEURONTIN) capsule 200 mg 200 mg, oral, Nightly, First dose on Tue01/30/21 at 2100, Do not crush, break, or open., Indications: Neuropathic Pain 2040 (Given - Provider: Jessica Soto, AVA) ketorolac (TORADOL) 15 mg/mL injection 15 mg 15 mg, intravenous, Every 6 hours scheduled, First dose on Tue01/31/21 at 0000, For 3 days, For Adult IV push, administer over 15 seconds, Indications: Pain 0054 (Given - Provid er: Jessica Soto RN)0514 (Given - Provider: Jessica Soto, AVA)1220 (Given - Provider: Rossana Fitzgerald, AVA) ketorolac (TORADOL) injection 30 mg (COMPLETED) 30 mg, intravenous, Once, On Tue01/30/21 at 1745, For 1 dose, Phase I, For Adult IV push, administer over 15 seconds 1717 (Given - Provider: Marisel Cotto RN) vancomycin (VANCOCIN) 2,000 mg in sodium chloride 0.9% 500 mL IVPB (COMPLETED) 2,000 mg, intravenous, at 260 mL/hr, Administer over 120 Minutes, Once, On Tue01/30/21 at 1215, For 1 dose, Pre-Op, Administer within 120 minutes of incision., Indications: Prophylaxis, Surgical 1219 (New Bag - Provider: Елена Flanagan RN) vancomycin 2,000 mg/520 mL in sodium chloride 0.9% (premix) 2,000 mg 2,000 mg (rounded from 2,074.5 mg = 15 mg/kg ? 138.3 kg), intravenous, Administer over 120 Minutes, Every 12 hours, First dose on Tue01/31/21 at 0000, Indications: Prophylaxis, Surgical, Urinary Tract/Genitourinary Infection 0200 (New Bag - Provider: Jessica Soto RN) Continuous Medication Order 01/29/2021 01/30/2021 01/31/2021 dextrose 5% and sodium chloride 0.45% infusion (premix) (CANCELED) 75 mL/hr, intravenous, Continuous, Starting on Tue01/30/21 at 1915 1850 (Not Given - Provider: Rossana Fitzgerald, AVA - Reason: Other)1852 (New Bag - Provider: Rossana Fitzgerald, AVA) Lactated Ringer's (LR) infusion (CANCELED) 30 mL/hr, intravenous, Continuous, Starting on Tue01/30/21 at 1215, For 4 hours, Pre-Op, Use a 500 ml bag for End Stage Renal Disease Patients. Discontinue if fluid still running once patient arrives to floor. 1218 (New Bag - Provider: Елена Flanagan RN)1320 (Rate/Dose Verify - Provider: Ashly Brewster CRNA)1325 (Paused - Provider: Ashly Brewster CRNA - Comment: Switch to gravity)1326 (Restarted - Provider: Ashly Brewster CRNA)1338 (New Bag - Provider: Ashly Brewster CRNA)1548 (Anesthesia Volume Adjustment - Provider: Ashly Brewster CRNA) PRN Medication Order 01/29/2021 01/30/2021 01/31/2021 bupivacaine (MARCAINE) 0.25 % (2.5 mg/mL) preservative free injection (CANCELED) As needed, Starting on Tue01/30/21 at 1518, Intra-Op 1518 (Given - Provider: Suzette Rogers MD) docusate sodium (COLACE) capsule 100 mg 100 mg, oral, 2 times daily PRN, constipation, Starting on Tue01/30/21 at 1843, Indications: constipation famotidine (PEPCID) injection 20 mg (COMPLETED) 20 mg, intravenous, Administer over 2 Minutes, Once as needed, heartburn, Starting on Tue01/30/21 at 1133, For 1 dose, Pre-Op, Indications: gastroesophageal reflux disease, Heartburn, Heartburn Prevention, Reflux 1320 (Given - Provider: Ashly Brewster CRNA) HYDROcodone-acetaminophen (NORCO) 5-325 mg per tablet 1 tablet (CANCELED) 1 tablet, oral, Every 20 min PRN, 3rd line for pain, breakthrough pain, May use as 1st line pain medication if pain not extremely severe and patient able to tolerate PO meds. If unable to tolerate PO meds or outpatient complaining of extremely severe pain, start with Fentanyl and follow with Oral meds., Starting on Tue01/30/21 at 1554, For 2 doses, Phase I, May administer TWO pills together if pain moderate to severe and patient able to tolerate PO meds, after consulting with Anesthesiologist., Indications: Pain 1645 (Given - Provider: Marisel Cotto RN) neomycin-polymyxin B (NEOSPORIN-) 3 mL in sodium chloride 0.9% 1,000 mL irrigation solution (CANCELED) As needed, Starting on Tue01/30/21 at 1325, Intra-Op 1325 (Given - Provider: Suzette Rogers MD) ondansetron (ZOFRAN) injection 4 mg(Linked Group 1) 4 mg, intravenous, Administer over 2 Minutes, Every 6 hours PRN, nausea, vomiting, if not tolerating PO, Starting on Tue01/30/21 at 1843, Indications: nausea and vomiting ondansetron ODT (ZOFRAN-ODT) disintegrating tablet 4 mg(Linked Group 1) 4 mg, oral, Every 6 hours PRN, nausea, vomiting, Starting on Tue01/30/21 at 1843, Indications: nausea and vomiting oxybutynin (DITROPAN) tablet 5 mg 5 mg, oral, Every 6 hours PRN, bladder spasms, Starting on Tue01/30/21 at 1843, Indications: Bladder Hyperactivity oxyCODONE (ROXICODONE) tablet 5 mg 5 mg, oral, Every 4 hours PRN, 1st line for pain, Starting on Tue01/30/21 at 1843, Indications: Pain 2041 (Given - Provider: Jessica Soto RN) 0513 (Given - Provider: Jessica Soto RN) phenazopyridine (PYRIDIUM) tablet 100 mg (CANCELED) 100 mg, oral, 2 times daily PRN, urinary pain, Starting on Tue01/30/21 at 1732, Phase I, May discolor urine and sclera. Can stain undergarments and contact lenses. 1741 (Given - Provider: Marisel Cotto RN) phenazopyridine (PYRIDIUM) tablet 100 mg (CANCELED) 100 mg, oral, 2 times daily PRN, urinary pain, Starting on Tue01/30/21 at 2245, Phase I, May discolor urine and sclera. Can stain undergarments and contact lenses. 0104 (Given - Provider: Jessica Soto RN) phenazopyridine (PYRIDIUM) tablet 100 mg 100 mg, oral, 2 times daily PRN, urinary pain, Starting on Tue01/31/21 at 1210, May discolor urine and sclera. Can stain undergarments and contact lenses. 1248 (Given - Provider: Rossana Fitzgerald RN) sodium chloride 0.9% irrigation (CANCELED) As needed, Starting on Tue01/30/21 at 1414, Intra-Op 1414 (Given - Provider: Suzette Rogers MD - Comment: cysto) Linked Groups Order Group 1: ondansetron ODT (ZOFRAN-ODT) disintegrating tablet 4 mgJump to med 4 mg, oral, Every 6 hours PRN, nausea, vomiting, Starting on Tue01/30/21 at 1843, Indications: nausea and vomiting Or ondansetron (ZOFRAN) injection 4 mgJump to med 4 mg, intravenous, Administer over 2 Minutes, Every 6 hours PRN, nausea, vomiting, if not tolerating PO, Starting on Tue01/30/21 at 1843, Indications: nausea and vomiting documented in this encounter Orders Medications Ordered That [place]acheco ht Not Have Been Administered Count Last Ordered Date First Ordered Date acetaminophen (TYLENOL) tablet 500 mg 1 02/2021 ampicillin-sulbactam (UNASYN ) 3 g in sodium chloride 0.9% 100 mL IVPB 1 01/30/2021 bupivacaine (MARCAINE) 0.25 % (2.5 mg/mL) preservative free injection 1 01/30/2021 diphenhydrAMINE (BENADRYL) i njection 12.5 mg 1 01/30/2021 docusate sodium (COLACE) capsule 100 mg 1 0 01/30/2021 enoxaparin (LOVENOX) syringe 40 mg 1 2020 famotidine (PEPCID) injection 20 mg 1 01/30 fentaNYL (SUBLIMAZE) preserv ative free injection 25 mcg 1 01/30/2021 furosemide (LASIX) tablet 20 mg 1 hydrALAZINE (APRESOLINE) injection 5 mg 1 0 01/30/2021 HYDROmorphone (DILAUDID) injection 0.2 mg 1 01/30/2021 labetaloL (NORMODYNE,TRANDAT E) injection 5 mg 1 01/30/2021 Lactated Ringer's (LR) infusion 1 meperidine (DEMEROL) preserv ative free injection 12.5 mg 1 01/30/2021 naloxone (NARCAN) 0.4 mg/mL injection 0.04-0.4 mg 1 01/30/2021 neomycin-polymyxin B (JUAN SPORIN-) 3 mL in sodium chloride 0.9% 1,000 mL irrigation solution 1 01/30/2021 ondansetron (ZOFRAN) injection 4 mg 2 01/30 ondansetron ODT (ZOFRAN-ODT) disintegrating tablet 4 mg 1 01/30/2021 oxybutynin (DITROPAN) tablet 5 mg 1 prochlorperazine (COMPAZINE) injection 5 mg 1 01/30/2021 scopolamine patch 72 hour 1 patch 1 sodium chloride 0.9% flush 0.5-20 mL 1 01/21 sodium chloride 0.9% irrigation 1 Diet Count Last Ordered Date First Orde red Date ADULT DISCHARGE DIET 1 01/31/2021 Nursing Count Last Ordered Date First Orde red Date DISCHARGE ACTIVITY 3 01/31/2021 DISCHARGE CALL PROVIDER 6 01/31/2021 documented in this encounter Care Teams Iron Worker Relationship Specialty Start Date End Date Natasha Bates PA [address] [place] [address] PCP - General Physician Superintendent Cemetery 10/08/19 documented as of this encounter
--- OUTSIDE RECORDS SUMMARY | 2024-05-22 05:53 | XMS_ITS | Encounter Summary ---
Author Organization [facility] Address [address] [place] [address] Phone Care Team Providers Care Airframe Design Engineer Name Role Phone Natasha Bates Primary Care Provider [phone] Reason for Referral * Diagnostic Imaging (Routine) - Closed Specialty Diagnoses / Procedures Referred By Malena sagastume Referred To Contact Diagnoses Cuff erosion of artificial urinary sphincter, initial encounter (HCC) Procedures [place] Voiding Urethrocystogram and Retrograde Urethrogram (C) Suzette Rogers MD [address] [facility] [address] [place] [address] Phone: tel: fax: [address] [phone] Referral ID Status Reason Start Date Expiration Date Visits Re quested Visits Authorized [id number] Closed 01/23/2021 02/22/2022 1 1 Encounter Details Date Type Department Care Team (Late st Contact Info) Description 01/23/2021 Orders Only [facility] Urology [address] [place] [address] Medical Office Building [address] [place] [address] Suzette Rogers MD [address] [facility] [address] [place] [address] Cuff erosion of artificial urinary sphincter, initial encounter ([facility]) (Primary Dx) Social History Tobacco Use Types Packs/Day Years Used Date Smoking Tobacco: Never Smokeless Tobacco: Never Alcohol Use Standard Drinks/Week Comments No 0 (1 standard drink = 0.6 oz pur e alcohol) AUDIT-C Answer Date Recorded Q1: How often do you have a drink containing alc ohol? Never 01/23/2021 Average Number of Drinks Not on file 021 Frequency of Binge Drinking Not on file 07/2020 Sex and Gender Information Value Date Recorded Sex Assigned at Not on file Legal Sex 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 APPLICATIONS DEVELOPMENT ANALYST Gender Identity Not on file Sexual Orientation Not on file documented as of this encounter Plan of Treatment Not on file documented as of this encounter Results * [place] Voiding Urethrocystogram [...] urethral sphincter status post excision. TECHNIQUE: A renal dietitian radiograph of the pelvis was obtained. Using [...] to the end of the procedure. FINDINGS: Customer Support Manager image demonstrates indwelling Avila catheter. There are [...] urethral sphincter status post excision. TECHNIQUE: A renal dietitian radiograph of the pelvis was obtained. Using [...] to the end of the procedure. FINDINGS: Customer Support Manager image demonstrates indwelling Avila catheter. There are [...] by: Spike Pickett M.D. Suzette Rogers MD IMG FLUOROSCOPY PROCEDURES Fin al Result documented in this encounter Visit Diagnoses Diagnosis Cuff erosion of artificial urinary sphincter, initial encounter (HCC)- Primary Cuff erosion of artificial urinary sphincter, initial encounter (HCC) documented in this encounter Care Teams Airframe Design Engineer Relationship Specialty [place] [address] [place] [address] PCP - General Physician Rubber Goods Assembler 10/08/19 documented as of this encounter
--- OUTSIDE RECORDS SUMMARY | 2024-05-22 05:53 | XMS_ITS | Encounter Summary ---
Author Organization [facility] Address [address] [place] [address] Phone Care Team Providers Care Family Services Coordinator Name Role Phone Natasha Bates Primary Care Provider [phone] Encounter Details Date Type Department Care Team (Late st Contact Info) Description 11/01/2019 Orders Only [facility] Urology [address] [facility] Medical Office Building [address] [place] [address] Suzette Rogers MD [address] [facility] [address] [place] [address] Dysuria (Primary Dx); Urinary incontinence, unspecified type Social History Tobacco Use Types Packs/Day Years Used Date Smoking Tobacco: Never Alcohol Use Standard Drinks/Week Comments No 0 (1 standard drink = 0.6 oz pur e alcohol) Sex and Gender Information Value Date Recorded Sex Assigned at Not on file Legal Sex 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 CLEARANCE REP Gender Identity Not on file Sexual Orientation Not on file documented as of this encounter Plan of Treatment Scheduled Orders Name Type Priority Associated Diagnoses Orde r Schedule Urine culture Urine, clean voided Microbiology Routine Dysuria Urinary incontinence, unspecified type Expected: 11/08/2019, Expires: 10/31/2020 documented as of this encounter Visit Diagnoses Diagnosis Dysuria- Primary Urinary incontinence, unspecified type documented in this encounter Care Teams Family Services Coordinator Relationship Specialty Start Date End Date Natasha Bates PA [address] [place] [address] PCP - General Physician Hearing Screen Coordinator 10/08/19 documented as of this encounter
--- OUTSIDE RECORDS SUMMARY | 2024-05-22 05:53 | XMS_ITS | Encounter Summary ---
Author Organization [facility] Address [address] [place] [address] Phone Care Team Providers Care Director Of Design Name Role Phone Natasha Bates Primary Care Provider [phone] Encounter Details Date Type Department Care Team (Late st Contact Info) Description 02/03/2021 Orders Only [facility] Urology [address] [facility] [address] [place] [address] Suzette Rogers MD [address] [facility] [address] [place] [address] Bladder spasms (Primary Dx) Social History Tobacco Use Types [...] on file Legal Sex 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 GOLF BALL MARKER Gender Identity Not on file Sexual Orientation Not on file documented as of this encounter Ordered Prescriptions Prescription Sig Dispense Quantity Refills Last Filled Start Date End Date solifenacin (VESIcare) 10 mg tabletIndications: Bladder spasms Take 1 tablet (10 mg total) by mouth daily 30 tablet 5 02/03/2021 02/13/2021 documented in this encounter Plan of Treatment Not on file documented as of this encounter Visit Diagnoses Diagnosis Bladder spasms- Primary Hypertonicity of bladder documented in this encounter Care Teams Director Of Design Relationship Specialty [place] [address] [place] [address] PCP - General Physician Invas Tech 10/08/19 documented as of this encounter
--- OUTSIDE RECORDS SUMMARY | 2024-05-22 05:53 | XMS_ITS | Encounter Summary ---
Author Organization [facility] Address [address] [place] [address] Phone Care Team Providers Care Moving Worker Name Role Phone Natasha Bates Primary Care Provider [phone] Encounter Details Date Type Department Care Team (Late st Contact Info) Description 07/29/2020 Telephone [facility] - [facility] Urology [address] [place] [address] [place] [address] Carrillo Keenan RMA Social History Tobacco Use Types Packs/Day Years Used Date Smoking Tobacco: Never Alcohol Use Standard Drinks/Week Comments No 0 (1 standard drink = 0.6 oz pur e alcohol) Sex and Gender Information Value Date Recorded Sex Assigned at Not on file Legal Sex 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 ACCOUNT CONSULTANT Gender Identity Not on file Sexual Orientation Not on file documented as of this encounter Miscellaneous Notes * Telephone Encounter - Carrillo Keenan MA - 07/29/2020 12:47 PM ACCOUNT CONSULTANT Patient called the triage line asking for information about his artificial urinary sphincter placement, it was a 4.0 cm cuff in the bulbar urethra, 61-70 cm pressure ring balloon. He was scheduled for a MRI, but the hospital will not do it until they receive the exact information on the device thathe has, model number included. I placed a call to [facility] and the stated that they will return all calls within 24 hours. I called patient to inform him and he stated that the hospital that he is going to has reached out to [facility] twice and they have not heard anything back. Patient also states that he has the brochure that he was given prior to his procedure, and that it has the make,model, and serial number. He will send me a copy of what he has via [employer] or Fax. I will show it to Dr. Rogers to see if patient can use that information. The hospital will not take it from him it has to come from us. UNT CONSULTANT documented in this encounter Plan of Treatment Not on file documented as of this encounter Visit Diagnoses Not on filedocumented in this encounter Care Teams Moving Worker Relationship Specialty Start Date End Date Natasha Bates PA [address] [place] [address] PCP - General Physician Web Content Executive 10/08/19 documented as of this encounter
--- OUTSIDE RECORDS SUMMARY | 2024-05-22 05:53 | XMS_ITS | Encounter Summary ---
Author Organization [facility] Address [address] [place] [address] Phone Care Team Providers Care Integrated Marketing Intern Name Role Phone Natasha Bates Primary Care Provider [phone] Encounter Details Date Type Department Care Team (Late st Contact Info) Description 02/05/2021 Telephone [facility] Surgery [address] [place] [address] Bony Coker, [facility] Social History Tobacco Use Types Packs/Day [...] on file Legal Sex 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 TRANSFORMER BUILDER Gender Identity Not on file Sexual Orientation Not on file documented as of this encounter Miscellaneous Notes * Telephone Encounter - DomingaShirin santanaSHARDA - 02/13/2021 9:10 AM CDT Spoke to patient, urine culture on 02/05 was negative but she still have burning off and on. He feels it could be spasms and feels the cath is rubbing and he feels raw. He is taking Oxybutynin 5 mg TID. Do you want him to try something else. He is taking Tylenol daily for pain. I will discuss with Dr. Rogers. * Telephone Encounter - Bony Coker CMA - 02/05/2021 12:56 PM CDT Patient has severe burning in urethra. He has not left urine culture should he go to ER documented in this encounter Plan of Treatment Not on file documented as of this encounter Visit Diagnoses Not on filedocumented in this encounter Care Teams Integrated Marketing Intern Relationship Specialty Start Date End Date Natasha Bates PA [address] [place] [address] PCP - General Physician Trauma Registrar 10/08/19 documented as of this encounter
--- OUTSIDE RECORDS SUMMARY | 2024-05-22 05:53 | XMS_ITS | Encounter Summary ---
Author Organization [facility] Address [address] [facility] [address] [place] [address] Phone Care Team Providers Care Solar Design Engineer Name Role Phone Natasha Bates Primary Care Provider [phone] Encounter Details Date Type Department Care Team (Late st Contact Info) Description 02/13/2021 Telephone [facility] Surgery [address] [place] [address] Makayla Webber CMA Social History Tobacco Use Types Packs/Day Years [...] on file Legal Sex 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 PUMP OPERATOR Gender Identity Not on file Sexual Orientation Not on file documented as of this encounter Miscellaneous Notes * Telephone Encounter - Shirin Quintero LPN - 02/13/2021 11:49 AM CDT Spoke to patient, he will come to the [facility] today at 2:30 for cysto with souza over guidewire placement with Dr. Rogers. Spoke to Shahnaz Mckeon RN aware patient is coming today. * Telephone Encounter - Makayla Webber CMA - 02/13/2021 10:30 AM CDT Pt called today, he said after he spoke with you his cath came out of his penis completely and he isnt sure if this is a big deal or not. Please call him. documented in this encounter Plan of Treatment Not on file documented as of this encounter Visit Diagnoses Not on filedocumented in this encounter Care Teams Solar Design Engineer Relationship Specialty [place] [address] [place] [address] PCP - General Physician Node Js Developer 10/08/19 documented as of this encounter
--- OUTSIDE RECORDS SUMMARY | 2024-05-22 05:53 | XMS_ITS | Encounter Summary ---
Author Organization [facility] Address [address] [place] [address] Phone Care Team Providers Care Ocean Rescue Lieutenant Name Role Phone Natasha Bates Primary Care Provider [phone] Encounter Details Date Type Department Care Team (Late st Contact Info) Description 01/20/2021 Telephone [facility] Surgery [address] [place] [address] Shannon Sanchez Social History Tobacco Use Types Packs/Day Years [...] on file Legal Sex 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 ROTARY SHEAR CUTTER Gender Identity Not on file Sexual Orientation Not on file documented as of this encounter Miscellaneous Notes * Telephone Encounter - Shirin Quintero LPN - 01/20/2021 12:45 PM CDT Spoke to patient,moved his appointment to see Dr. Rogers to 01/22/2021. * Telephone Encounter - Shannon Sanchez - 01/20/2021 9:01 AM CDT Patient called and wanted to know if there is a way for him to be seen sooner. Says the [facility] is not opening up which is causing him to have pain. He would like a c/b documented in this encounter Plan of Treatment Not on file documented as of this encounter Visit Diagnoses Not on filedocumented in this encounter Care Teams Ocean Rescue Lieutenant Relationship Specialty [place] [address] [place] [address] PCP - General Physician Silk Screen Processor 10/08/19 documented as of this encounter
--- OUTSIDE RECORDS SUMMARY | 2024-05-22 05:53 | XMS_ITS | Encounter Summary ---
Author Organization [facility] Address [address] [place] [address] Phone Care Team Providers Care Appeals Reviewer Veteran Name Role Phone Natasha Bates Primary Care Provider [phone] Reason for Visit * Reason Comments Follow-up Cysto patient AUS no t working. Was seen in the ER last night. * Consultation (Routine) - Closed Specialty Diagnoses / Procedures Referred By Malena sagastume Referred To Contact Urology Diagnoses Scrotal swelling Natasha Bates PA [address] [place] [address] Phone: tel: fax: Suzette Rogers MD [address] [facility] [address] [place] [address] Phone: tel: fax: Referral ID Status Reason Start Date Expiration Date V isits Requested Visits Authorized [id number] Closed Specialty Services Required 10/08/2019 04/18/2021 99 99 Encounter Details Date Type Department Care Team (Late st Contact Info) Description 01/22/2021 2:00 PM CDT Office Visit [place] [facility] ([facility]) - [facility] Urology [address] [facility] 11th [place] [address] [place] [address] Suzette Rogers MD [address] [facility] [address] [place] [address] LIZET (stress urinary incontinence), male (Primary Dx); Cuff erosion of artificial urinary sphincter, initial encounter ([facility]); History of urinary retention Social History Tobacco Use Types Packs/Day Years [...] on file Legal Sex 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 TRAVEL PTA Gender Identity Not on file Sexual Orientation Not on file documented as of this encounter Progress Notes * Suzette Rogers MD - 01/22/2021 2:00 PM CDT HPI: Howie Delaney is a 55 y.o. male with an artificial urinary sphincter in place, it was implanted in August 2017 with a [...] was discharged home with a deactivated AUS. He is here for follow up, he will need a cystoscopy today to rule out erosion. Since his AUS deactivation, he is able to urinate, he has stress urinary incontinence. There is no longer any sensation of retention. There is no fever, chills, or discharge or burning. ROS: Review Of Systems has been reviewed [...] Normal affect and mood, oriented x 3. On examination of his scrotum, there is some edema and possibly fluid collection around the pump. The pump can be palpated, the dimple of the pump is still there, confirming that his AUS has been deactivated. There is no tenderness, crepitus, warmth or redness around the AUS pump. Cystoscopy (male): Indication for cystoscopy: Rule out erosion for artificial urinary sphincter The risks and benefits of office cystoscopy [...] bladder. URETHRA: Normal without strictures or lesions. At 1:00 a.m. position at the expected location of the bulbar urethral cuff, I see a pinhole 2 mm opening of the urethra, I cannot visualize any cuff plastic behind it, but I suspect the patient is going to have an impending urethral erosion from the AUS cuff soon. PROSTATE: n/a TRIGONE & UOs: Normal anatomy with efflux of clear urine. No mucosal lesions or subtrigonal masses. BLADDER MUCOSA: Normal, without neoplasms or other lesions. DETRUSOR: Normal capacity, without flaccidity, without excessive compliance, without trabeculation or diverticula, without uninhibited bladder contractions on fillings. RETROFLEXED SCOPE VIEW: Normal ADDITIONAL PROCEDURES: None The cystoscopy was performed in the presence of coffee blender, Shirin Quintero. Assessment and Plan: Impending AUS erosion The opening in his bulbar urethra is actually very small, only about the size of the pinhole to 2 mm in size I suspect there is also some fluid collection around his AUS pump in his right anterior hemiscrotum. 1. I explained the findings to the patient's. I recommend the patient to undergo an artificial urinary sphincter explant, including the cuff, and also the pump at least, due to an impending artificial urinary sphincter erosion into the bulbar urethra. The opening is still small, however I think this needs to be addressed and let the urethra heal. I explained to him that after the AUS explant, he will need a Avila catheter for about 3 weeks time or so, afterwards he will needs a VCUG to make sure the urethra has completely healed, before Avila catheter removal. And I think he will have stress incontinence again after Avila removal. We have to demonstrated he does not develop a stricture at the urethra before a reimplant can be performed. We may have to leave the pressure regulating balloonbehind because I do not think there is gross infection at this time, and he may be difficult to remove the since his morbid obesity. He is losing weight from his gastric surgery. 2. I offered to do this tomorrow for the patient. He would not be able to do this tomorrow because he is covering for another co-worker. I will schedule the patient for AUS explant next week. 3. Urine culture 4. His AUS is still deactivated. He is able to urinate/leak without retention Time: My total encounter time on 01/22/2021 was 30 minutes which was spent in the activities documented in the note. This includes time spent prior to [...] of surgery, associated with the following diagnosis: Impendingartificial urinary sphincter erosion, and the management of this condition. Patient was given the opportunities to ask questions regarding the surgery and consented to proceed with the following surgery: AUS explant, Avila catheter placement. Linda Rogers MD water operator (Urology) Division of Urologic Surgery [facility] Office [phone] 01/22/2021 8:28 AM documented in this encounter Plan of Treatment Not on file documented as of this encounter Procedures Procedure Name Priority Date/Time Associated Diagnosis Comments POCT URINALYSIS DIPSTICK Routine 01/22/2021 2:52 PM CDT LIZET (stress urinary incontinence), male documented in this encounter Results * Urine culture Urine, clean voided (01/22/2021 4:50 PM CDT) Report Final Report: Less than 100,000 colonies/mL (clinically insignificant growth based on current clinical standards) [facility] Organism (CLINICALLY INSIGNIFICANT GROWTH YO [facility] Urine, clean voided 01/22/2021 4:50 PM CDT 01/22/2021 5:37 PM CDT Narrative [facility] - 01/23/2021 8:07 PM CDT Testing performed by [facility] Laboratory ([phone]) Suzette Rogers MD LAB MICROBIOLOGY - GENERAL ORD ERABLES Final Result [facility] Department [place] [address] * (ABNORMAL) POCT urinalysis dipstick (01/22/2021 2:52 PM CDT) Glucose, ur, POC Negative Negative mg/dL Ketones, ur, POC Negative Negative Blood, ur, POC Trace(A) Negative pH, ur, POC 5.0 5.0 - 8.0 Protein, ur, POC 1+(A) Negative Nitrite, ur, POC Negative Negative Leukocytes, ur, POC 1+(A) Negative Lot Number x Urine 01/22/2021 2:52 PM CDT Suzette Rogers MD POINT OF CARE TEST ORDERABLES Final Result documented in this encounter Visit Diagnoses Diagnosis LIZET (stress urinary incontinence), male- Primary Cuff erosion of artificial urinary sphincter, initial encounter ([facility]) History of urinary retention LIZET (stress urinary incontinence), male documented in this encounter Care Teams Appeals Reviewer Veteran Relationship Specialty Start Date End Date Natasha Bates PA [address] [place] [address] PCP - General Physician Compliance Testing Analyst 10/08/19 documented as of this encounter
--- OUTSIDE RECORDS SUMMARY | 2024-05-22 05:53 | XMS_ITS | Encounter Summary ---
Author Organization [facility] Healthcare Address [address] [place] [address] Care Team Providers Care Air Carrier Operations Inspector Name Role Phone Natasha Bates Primary Care Provider [phone] Encounter Details Date Type Department Care Team (Latest Contact Info) Description 01/21/2021 6:10 PM CDT - 01/21/2021 11:59 PM CDT Hospital Encounter [facility] [address] [place] [address] Discharge Disposition: Discharge to home or self care Social History Tobacco Use Types Packs/Day Years Used Date Smoking Tobacco: Never Alcohol Use Standard Drinks/Week Comments No 0 (1 standard drink = 0.6 oz pur e alcohol) Sex and Gender Information Value Date Recorded Sex Assigned at Not on file Legal Sex 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 MEDICAL INSURANCE CLAIMS PROCESSOR Gender Identity Not on file Sexual Orientation [...] W CONTRAST ED 01/21/2021 6:25 PM CDT documented in this encounter Visit Diagnoses Not on filedocumented in this encounter Administered Medications Inactive Administered Medications - up to 3 most recent administrations Medication Order MAR Action Action Date Dose Rate Site ioversoL (OPTIRAY 350) syringe syringe 100 mL 100 mL, intravenous, Once in imaging, contrast, Starting on Tue01/21/21 at 1819, For 1 dose Contrast Given 01/21/2021 6:20 PM CDT 100 mL documented in this encounter Orders Medications Ordered That [place] ht Not Have Been Administered Count Last Ordered Date First Ordered Date ioversoL (OPTIRAY 350) syrin ge syringe 100 mL 1 01/21/2021 documented in this encounter Care Teams Air Carrier Operations Inspector Relationship Specialty Start Date End Date Natasha Bates PA [address] [place] [address] PCP - General Physician Assistant Womens Volleyball Coach 10/08/19 documented as of this encounter
--- OUTSIDE RECORDS SUMMARY | 2024-05-22 05:53 | XMS_ITS | Encounter Summary ---
Author Organization [facility] Healthcare Address [address] [place] [address] Care Team Providers Care Recreation Adviser Name Role Phone Natasha Bates Primary Care Provider [phone] Encounter Details Date Type Department Care Team (Late st Contact Info) Description 11/01/2019 9:45 PM CDT Lab [address] [address] Dysuria; LIZET (stress urinary incontinence), male Social History Tobacco Use Types Packs/Day Years Used Date Smoking Tobacco: Never Alcohol Use Standard Drinks/Week Comments No 0 (1 standard drink = 0.6 oz pur e alcohol) Sex and Gender Information Value Date Recorded Sex Assigned at Not on file 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 Gender Identity Not on file Sexual Orientation Not on file documented as of this encounter Plan of Treatment Not on file documented as of this encounter Procedures Procedure Name Priority Date/Time Associated Diagnosis Comments URINE CULTURE Routine 11/01/2019 9:44 PM CDT Dysuria LIZET (stress urinary incontinence), male documented in this encounter Results * Urine culture Urine, clean voided (11/01/2019 9:44 PM CDT) Report Final Report: Less than 100,000 colonies/mL (clinically insignificant growth based on current clinical standards) [facility] Organism (CLINICALLY INSIGNIFICANT GROWTH [facility] Urine, clean voided 11/01/2019 9:44 PM CDT 11/01/2019 10:15 PM CDT Narrative [facility] - 11/03/2019 7:36 AM CDT Testing performed by [facility]biology Laboratory ([phone]) us Suzette Rogers MD LAB MICROBIOLOGY - GENERAL ORD ERABLES Final Result [facility] Department [place] [address] documented in this encounter Visit Diagnoses Diagnosis Dysuria LIZET (stress urinary incontinence), male documented in this encounter Care Teams Recreation Adviser Relationship Specialty Start Date End Date Natasha Bates PA [address] [place] [address] PCP - General Physician Qa Automation Architect 10/08/19 documented as of this encounter
--- OUTSIDE RECORDS SUMMARY | 2024-05-22 05:53 | XMS_ITS | Encounter Summary ---
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 * Telephone Encounter - Makayla Webber CMA - 02/03/2021 1:07 PM CDT Pt called he is having a lot of pain and discomfort with spasms. He stated he is taking something for the spasms but it doesn't seem to be helping much. documented in this encounter Plan of Treatment Not on file documented as of this encounter Visit Diagnoses Not on filedocumented in this encounter Care Teams Restaurant Kitchen Manager Relationship Specialty Start Date End Date Natasha Bates PA [address] [place] [address] PCP - General Physician Pairing Machine Operator 10/08/19 documented as of this encounter
--- OUTSIDE RECORDS SUMMARY | 2024-05-22 05:53 | XMS_ITS | Encounter Summary ---
Author Organization [facility] Healthcare Address [address] [place] [address] Care Team Providers Care Party Host Name Role Phone Natasha Bates Primary Care Provider [phone] Encounter Details Date Type Department Care Team (Late st Contact Info) Description 01/22/2021 4:50 PM CDT Lab [address] [address] LIZET (stress urinary incontinence), male Social History [...] on file Legal Sex 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 DISH UP PERSON Gender Identity Not on file Sexual Orientation Not on file documented as of this encounter Plan of Treatment Not on file documented as of this encounter Procedures Procedure Name Priority Date/Time Associated Diagnosis Comments URINE CULTURE Routine 01/22/2021 4:50 PM CDT LIZET (stress urinary incontinence), male documented in this encounter Results * Urine culture Urine, clean voided (01/22/2021 4:50 PM CDT) Report Final Report: Less than 100,000 colonies/mL (clinically insignificant growth based on current clinical standards) [facility] Organism (CLINICALLY INSIGNIFICANT GROWTH YO [facility] Urine, clean voided 01/22/2021 4:50 PM CDT 01/22/2021 5:37 PM CDT Narrative [facility] - 01/23/2021 8:07 PM CDT Testing performed by [facility] Laboratory ([phone]) us Suzette Rogers MD LAB MICROBIOLOGY - GENERAL ORD ERABLES Final Result [facility] Department [place] [address] documented in this encounter Visit Diagnoses Diagnosis LIZET (stress urinary incontinence), male documented in this encounter Care Teams Party Host Relationship Specialty [place] [address] [place] [address] PCP - General Physician Steno Typist 10/08/19 documented as of this encounter
--- OUTSIDE RECORDS SUMMARY | 2024-05-22 05:53 | XMS_ITS | Encounter Summary ---
Author Organization [facility] Address [address] [place] [address] Phone Care Team Providers Care Outside Repairer Special Name Role Phone Natasha Bates Primary Care Provider [phone] Encounter Details Date Type Department Care Team (Late st Contact Info) Description 07/16/2020 Telephone [place] [facility] ([facility]) - [facility] Urology [address] [facility] 11th [place] [address] [place] [address] Bony Coker CMA Social History Tobacco Use Types Packs/Day Years Used Date Smoking Tobacco: Never Alcohol Use Standard Drinks/Week Comments No 0 (1 standard drink = 0.6 oz pur e alcohol) Sex and Gender Information Value Date Recorded Sex Assigned at Not on file 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 WARE BUILD ENGINEER * Telephone Encounter - Bony Coker CMA - 07/16/2020 2:56 PM CST The hospital needs the exact information on the device that he has. They need the model number included as well WARE BUILD ENGINEER documented in this encounter Plan of Treatment Not on file documented as of this encounter Visit Diagnoses Not on filedocumented in this encounter Care Teams Outside Repairer Special Relationship Specialty [place] [address] [place] [id number] PCP - General Physician Enterprise Resource Analyst 10/08/19 documented as of this encounter
--- OUTSIDE RECORDS SUMMARY | 2024-05-22 05:53 | XMS_ITS | Encounter Summary ---
Author Organization [facility] Address [address] [facility] [address] [place] [address] Care Team Providers Care Grinder Set Up Operator Name Role Phone Natasha Bates Primary Care Provider [phone] Encounter Details Date Type Department Care Team (Late st Contact Info) Description 01/24/2021 Orders Only [facility] Testing Site - [facility]. 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 Date of Px/chemo/treatment/placement/transfer 01/30/2021 ?? Testing site patient will be sent to: [place] [place] ?? Date testing requested: 01/27/2021 ?? Testing: COVID-19 RNA ?? Is this the first COVID-19 test for this patient? Unknown ?? Does the patient currently work in a healthcare facility with direct patient contact? No ?? Is the patient a resident of a congregate care or living setting? No ?? Is the patient ? No ?? Please select the performing region: [facility] documented in this encounter Miscellaneous Notes * Addendum Note - Eda Batres - 01/24/2021 8:12 AM CDTAddended by: EDA BATRES on: 01/27/2021 05:41 PM Modules accepted: Orders documented in this encounter Plan of Treatment Not on file documented as of this encounter Results * COVID-19 Coronavirus RNA Nasopharyngeal (01/27/2021 11:58 AM CDT) COVID-19 RNA Not Detected [facility] Comment: Interpretive Data Synonyms for this test include: PCR and NAAT . ??Testing performed by the [facility] Molecular Infectious Disease Laboratory. The 2019-Novel [...] on June 26, 2020. First COVID-19 test? Unknown [facility] Employeed in healthcare? No [facility] status? No [facility] Group care resident? No [facility] Hospitalized? Unknown [facility] Is patient in ICU? Unknown [facility] Symptomatic as defined by CDC? No [facility]opharyngeal 01/27/2021 11 :58 AM CDT 01/27/2021 6:57 PM CDT Narrative [facility] - 01/28/2021 3:20 AM CDT What is the reason for testing?->Screening prior to scheduled procedure or surgery (batch) Suzette Rogers MD LAB MICROBIOLOGY - GENERAL ORD ERABLES Final Result [facility] Department [place] [address] documented in this encounter Visit Diagnoses Diagnosis Preop testing- Primary Unspecified pre-operative examination Preop testing Unspecified pre-operative examination documented in this encounter Care Teams Grinder Set Up Operator Relationship Specialty [place] [address] [place] [id number] PCP - General Physician Drum Stock Clerk 10/08/19 documented as of this encounter
--- OUTSIDE RECORDS SUMMARY | 2024-05-22 05:53 | XMS_ITS | Encounter Summary ---
Author Organization [facility] Address [address] [place] [address] Phone Care Team Providers Care Fresh Foods Clerk Name Role Phone Natasha Bates Primary Care Provider [phone] Encounter Details Date Type Department Care Team (Late st Contact Info) Description 07/01/2020 Telephone [place] [facility] ([facility]) - [facility] Urology [address] [facility] Advanced [facility] 11th [place] [address] [place] [address] Jamaica Covarrubias RMA Social History Tobacco Use Types Packs/Day Years Used Date Smoking Tobacco: Never Alcohol Use Standard Drinks/Week Comments No 0 (1 standard drink = 0.6 oz pur e alcohol) Sex and Gender Information Value Date Recorded Sex Assigned at Not on file Legal Sex 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 GRAIN OILSEED OR PASTURE GROWER Gender Identity Not on file Sexual Orientation Not on file documented as of this encounter Miscellaneous Notes * Telephone Encounter - Shirin Quintero LPN - 07/02/2020 11:22 AM GRAIN OILSEED OR PASTURE GROWER Returned call to patient, the AUS is MRI safe. Mailed letter from [employer] to patient. N OILSEED OR PASTURE GROWER * Telephone Encounter - Jamaica Covarrubias RMA - 07/01/2020 2:44 PM CST Pt calling he is scheduled for an MRI of his spine (scheduled for 07/09/2020) and is needing to knowif the artificial sphenciator that Dr. Rogers inserted in his scrotum has any metal that would affect the MRI N OILSEED OR PASTURE GROWER documented in this encounter Plan of Treatment Not on file documented as of this encounter Visit Diagnoses Not on filedocumented in this encounter Care Teams Fresh Foods Clerk Relationship Specialty Start Date End Date Natasha Bates PA [address] [place] [address] PCP - General Physician Medical Office Receptionist 10/08/19 documented as of this encounter
--- OUTSIDE RECORDS SUMMARY | 2024-05-22 05:53 | XMS_ITS | Encounter Summary ---
Author Organization [facility] Address [address] [place] [address] Phone Care Team Providers Care Billing Coordinator Name Role Phone Natasha Bates Primary Care Provider [phone] Encounter Details Date Type Department Care Team (Late st Contact Info) Description 01/21/2021 Telephone 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 Rogers tomorrow, but now he is having trouble urinating and it feels as if the AUS is pressing up on the scrotum. Patient is going to ER. Message sent to Dr. Rogers. documented in this encounter Plan of Treatment Not on file documented as of this encounter Visit Diagnoses Not on filedocumented in this encounter Care Teams Billing Coordinator Relationship Specialty Start Date End Date Natasha Bates PA [address] [place] [address] PCP - General Physician Charge Coordinator 10/08/19 documented as of this encounter
--- OUTSIDE RECORDS SUMMARY | 2024-05-22 05:53 | XMS_ITS | Encounter Summary ---
Author Organization [facility] Address [address] [place] [address] Phone Care Team Providers Care Gravel Machine Operator Name Role Phone Natasha Bates Primary Care Provider [phone] Encounter Details Date Type Department Care Team (Late st Contact Info) Description 01/29/2021 Orders Only [facility] Urology [address] [facility] [address] [place] [address] Suzette Rogers MD [address] [facility] [address] [place] [address] Social History Tobacco Use Types [...] 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 SOLAR ENERGY SYSTEM INSTALLER HELPER Gender Identity Not on file Sexual Orientation Not on file documented as of this encounter Ordered Prescriptions Prescription Sig Dispense Quantity Refills Last Filled Start Date End Date sulfamethoxazole-t rimethoprim (BACTRIM DS) 800-160 mg per tablet Take 1 tablet by mouth 2 (two) times a day for 3 days 6 tablet 01/29/2021 02/01/2021 documented in this encounter Plan of Treatment Not on file documented as of this encounter Visit Diagnoses Not on filedocumented in this encounter Care Teams Gravel Machine Operator Relationship Specialty Start Date End Date Natasha Bates PA [address] [phone] PCP - General Physician Machine Compositor 10/08/19 documented as of this encounter
--- OUTSIDE RECORDS SUMMARY | 2024-05-22 05:53 | XMS_ITS | Encounter Summary ---
Author Organization [facility] Address [address] [place] [address] Phone Care Team Providers Care Web Page Developer Name Role Phone Natasha Bates Primary Care Provider [phone] Encounter Details Date Type Department Care Team (Late st Contact Info) Description 02/04/2021 Orders Only [facility] Urology [address] [facility] [address] [place] [address] Suzette Rogers MD [address] [facility] [address] [place], [place] [id number] Dysuria (Primary Dx) Social History Tobacco Use Types [...] on file Legal 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 Gender Identity Not on file Sexual Orientation Not on file documented as of this encounter Plan of Treatment Not on file documented as of this encounter Procedures Procedure Name Priority Date/Time Associated Diagnosis Comments URINE CULTURE Routine 02/05/2021 3:15 PM CDT Dysuria documented in this encounter Results * Urine culture Urine, indwelling catheter (02/05/2021 3:15 PM CDT) Urine culture Final report [facility] - 01 Result 1 No growth [facility] - 01 Urine, indwelling catheter 02/05/2021 3:15 PM CDT 02/05/2021 Comment:UC Narrative [facility] - 02/07/2021 4:07 AM CDT Performed at: ??01 - [facility] [address] ??[id number] Test Case Developer: Mane Sanchez PhD, Phone: ??[phone] us Suzette Rogers MD LAB MICROBIOLOGY - GENERAL ORD ERABLES Final Result [facility] - 01 documented in this encounter Visit Diagnoses Diagnosis Dysuria- Primary documented in this encounter Care Teams Web Page Developer Relationship Specialty Start Date End Date Natasha Bates PA [address] [place] [id number] PCP - General Physician Automobile Body Repairer 10/08/19 documented as of this encounter
--- OUTSIDE RECORDS SUMMARY | 2024-05-22 05:53 | XMS_ITS | Encounter Summary ---
Author Organization [facility] Healthcare Address [address] [place] [address] Care Team Providers Care Office Machines Wirer Name Role Phone Natasha Bates Primary Care Provider [phone] Encounter Details Date Type Department Care Team (Late st Contact Info) Description 01/30/2021 1:15 PM CDT - 01/30/2021 3:15 PM CDT Surgery [facility] Operating Room [address] [place] [address] Suzette Rogers MD [address] [facility] [address] [place] [address] ARTIFICIAL SPHINCTER REMOVAL Surgery Details Date/Time Status Location OR Service Patient Class Case Cl ass Case Type Trauma Case? 01/30/2021 1:15 PM Posted [facility] OPERATING ROOM OR Urology Outpatient Elective Panel 1 Procedure LRB Anes Op Region Wound Class Comments ARTIFICIAL SPHINCTER REMOVAL N/A General Class II - Clean Contaminated CYSTOSCOPY N/A General Urethra Class II - Colby an Contaminated Surgeon Surgeon Role Service Panel Suzette Rogers MD Primary Urology 1 Jeffry Conroy MD Resident - Assisting Urology 1 Case Notes [facility] AMS rep present for the case: Flexible cysto; irrigant antibiotics; sterile spray bottle Special Needs [facility] AMS rep present for the [...] file 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 Gender Identity Not on file Sexual Orientation Not on file documented as of this encounter Last Filed Vital Signs Vital Sign Reading Time Taken Comments Blood Pressure 108/71 01/30/2021 1:05 PM CDT Pulse 63 01/30/2021 1:15 PM CDT Temperature 36.2 ??C (97.2 ??F) 01/30/2021 1:10 PM CD T Respiratory Rate 26 01/30/2021 1:15 PM CDT Oxygen Saturation 94% 01/30/2021 1:15 PM CDT Inhaled Oxygen Concentration - - [...] Care Physician at Discharge: Natasha Bates PA [phone] Admission Date: 01/30/2021 Discharge Date: 01/31/2021 Admission Location: [facility] Hospital Problems/Diagnoses: Principal Problem: Urethral erosion Resolved Problems: [...] HR 60-70s. At time of discharge, erica htapa's pain was well-controlled on oral pain medications, tolerating adequate oral intake on a regular diet with normal bowel function, voiding spontaneously without difficulty, and ambulating well. Consults: Physical Therapy Occupational Therapy Saw Setter Active Issues Requiring Follow-up: Please follow-up with [...] Time Provider Department Center 02/24/2021 1:00 PM [facility] [id number] [facility] DxIMG BJWCHMainIMG 02/24/2021 2:00 PM Suzette Rogers MD URO BW MOB4 JAIME [...] to 7 days 14 capsule 01/30/2021 1 sulfamethoxazole -trimethoprim (BACTRIM DS) 800-160 mg [...] Ibrahim MD - 01/31/2021 9:[address] [facility] Daily Progress Note Urology PATIENT NAME: Howie [...] 02/04/2021 9:38 AM CDT * Carla Del Valle [facility] - 01/30/2021 6:52 PM CDT Howie Delaney [...] mg daily (avoid twice daily dosing). References: [facility] Toolbook/Dorsata, last reviewed 05/02/18 [facility] Drug Information Handbook, 28th Edition [facility] approval 04/2020 documented in this encounter H&P [...] Preoperative Evaluation Record Evaluation type/location: [place] Planned procedure site: [facility] OR Date: 01/27/21 Anesthesia Evaluation NOTE: This [...] SBP can drop under 100, managed by oliver filter operator at [facility], carvedilol has been lowered) Hypertension year diagnosed: [...] angioplasty Comments: Last office visit with cardiology [facility] 08/25/2020, carvedilol decreased at this visit Respiratory [...] vascular, possibly venous insufficiency) + previous transfusion (06/24 hematuria, denies reactions) + syncope (11/2020-led to [...] Patient instructions were provided electronically sent via Yowza.Instructed verbally also. Patient verbalized understanding of preoperative [...] COVID19 testing to be performed on 01/27/2021. [facility] will place the order for testing. [...] discussed with CPAP attending to determine if [facility] appropriate location for this surgery. [facility] staff message sent to surgeon's office of pending retrievals. OSH discharge summary note: Hospital Course: Howie Delaney is a 55 year old male with history of MIRELLA with nightly CPAP, OSH, CHRF, HTN, HLD, gout, peripheral neuropathy, CKD stage 3, HFpEF with EF75% (05/2020) who presented to [facility] this morning after a fall at [...] BID d/t BLE swelling. Upon arrival to [facility], pt a afebrile with stable VS. [...] surgeon's office to further discuss. Also, sent [facility] staff message. Preoperative evaluation performed by Olivia [...] 325 mg tablet Past Month 11/07/19 -- ProviderKrysta MD allopurinoL (ZYLOPRIM) 100 mg tablet 01/23/2021 -- -- Krysta Aldridge MD atorvastatin (LIPITOR) 40 mg tablet 01/22/2021 -- -- Krysta Aldrdige MD CALCIUM ORAL 01/23/2021 -- -- Krysta [...] test(s): N/A Cardiac catheterization(s): N/A PFT(s): OS (Care Everywhere) 04/30/2020: IMPRESSION: 1. ??Moderate Restrictive Ventilatory Limitation - low ERV is suggestive of extraparenchymal restriction. 2. No bronchodilator response, however this does not preclude the use of bronchodilators 3. There is no previous study available for comparison Vascular studies: N/A Other: OSH (Care Everywhere) MRI Brain 11/20/2020: IMPRESSION: 1. No acute intracranial hemorrhage or evidence of acute ischemic infarct. OSH (Care Everywhere) CT Angio Brain Neck Stroke [...] out of bed Summary: * Plan of Feroz - Jessica Soto RN - 01/31/2021 5:43 [...] pressure ring balloon Surgeon: Suzette Rogers MD Medical Csr: Jeffry Bunn MD Anesthesia: General Complications: None [...] it into the bladder, we put a [place] tip catheter into the bladder lumen. Next [...] Suzette Rogers, was present throughout the surgery. * Brief Op Note - Suzette Rogers MD - 01/30/2021 2:19 PM CDT Operative Progress Note Surgical Team: Surgeon(s) and Role: * Suzette Rogers MD - Primary * Jeffry Conroy MD - Resident - Assisting Anesthesiologist: Neftali Berry MD; Geovany Osorio MD WAITRESS: Ashly Brewster CRNA Roadway Designer: Natali Freeman RN; Meaghan Andres RN Scrub: [...] Preoperative Assessment and Planning CPAP Clinic Location: [facility] The night before your surgery: [...] Planning Perioperative Nursing Note Telephone Preoperative Evaluation ([facility]) - TELEPHONE ONLY, NO PHYSICAL EXAM Date: [...] (LDAs) Type of Wound (LDA): (None) SCREENINGS Nathan Fall Risk Score (Retired): 40 Alexis index score: 90 PATIENT CARE PLANNING Advance Directives (For Healthcare) Advance Directive: Patient has advance directive, copy in chart Communication/Sheetfed Press Operator Needs Communication Needs: Glasses Patient's Preferred Language: Mexican Does caregiver's language differ from patient's?: No Is an pulp refiner operator needed? : No Assistive Devices/DME: Eyeglasses, CPAP/BiPAP, Oxygen Hearing - Right Ear: Functional Hearing - Left Ear: Functional Discharge Planning Type of Residence: Private residence Living Arrangements: Children Support Systems: Children, Friends/neighbors Patient expects to be discharged to:: Private residence (Friend, Tianna Martinez will be school bus driver/mechanic after surgery.) COVID Screening Covid-19 Screening In [...] in a congregate living facility (ex. assisted living/retirement facility, skilled nursing, senior care)?: No Have you tested positive for COVID-19 [...] 20 seconds. Use an alcohol- based hand bending roll hand that contains at least 60% alcohol if [...] insurance card, a photo ID (like a Typesetters Printer's license) and a method of payment for [...] COVID Test Request Placed in Epic to [facility]. HOLIDAY hours may vary at testing site. Test to be performed on 01/27/21 at [place] [facility] [place] [address], M-F 8:30a-4:30p, Sat/Sun 8a-12:30p, Call once on [phone]. Telephone assessment performed. Patient states that they are fully COVID vaccinated and [facility]. If you have COVID testing or should have COVID testing for your surgery/procedure, please read below section: If you need to reschedule your COVID test to a different location or if your surgery gets rescheduled, you MUST call [phone] Tuesday-Tuesday 8am-4:30pm to get your COVID testing rescheduled or your lab order will not be available at Testing Sites. COVID Testing is only valid for up to 96 hours prior to surgery date, unless otherwise specified. If you are unable to reach staff at the above phone number, please call the CPAP Staff at [phone]. This number cannot order a lab test, [...] 20 seconds. Use an alcohol- based hand bending roll hand that contains at least 60% alcohol if soap and water are not available. All patients should read below section: All visitors/patients are being asked to wear a clean mask when entering the hospital. COVID 19 Updates & Visitor Policy: Please access [email or web address] for the most updated information. Information on [facility]: Please view [email or web address] (Patient & Visitor Information) for additional details regarding Advanced Directive forms, AWARE, directions, parking information, lodging, Internet access, dining and more. Information on [facility]: Please view [email or web address] (Patient and Visitor Information) for parking/directions and more. For MyChart information, to activate account or password recovery, please go to [email or web address] or call [phone] (toll-free: [phone]). Information for Suicide Prevention: National Suicide Prevention Lifeline (4-453-366-[facility] (8040)). Surgery Times: For patients having surgery @ [facility] or [facility], if your surgeon's office has not notified you of your surgery time by NOON THE BUSINESS DAY BEFORE your surgery, please call [phone] and ask for your surgeon'soffice Dr. Rogers. [...] 1:25 PM CDT Urethral erosion Case Notes [facility] AMS rep present for the case: Flexible cysto; irrigant antibiotics; sterile spray bottle Special Needs [facility] AMS rep present for the case: Flexible cysto; irrigant antibiotics; sterile spray bottle PLACEMENT ARTIFICIAL SPHINCTER 01/30/2021 1:25 PM CDT Urethral erosion Case Notes [facility] AMS rep present for the case: Flexible cysto; irrigant antibiotics; sterile spray bottle Special Needs [facility] AMS rep present for the case: Flexible cysto; irrigant antibiotics; sterile spray bottle POC ISTAT Routine 01/30/2021 12:00 PM CDT documented in this encounter Results * eGFR (01/31/2021 5:59 AM CDT) eGFR 55 mL/min/1.7 3 m2 YO CRAFT Comment: Interpretive Data Reference [...] 5:59 AM CDT 01/31/2021 6:16 AM CDT us Suzette Rogers MD LAB BLOOD ORDERABLES Final Res ult Performing Organization Address City/State/[facility] de Phone Number YO [facility] [address] [facility] [address] [place], [place] [id number] * Phosphorus (01/31/2021 5:59 AM CDT) Pathologist [facility] Phosphorus, pl 4.0 2.3 - 4.5 mg/dL [facility] Blood 01/31/2021 5:59 AM CDT 01/31/2021 6:16 AM CDT Suzette Rogers MD LAB BLOOD ORDERABLES Final Res ult Performing Organization Address [facility] de Phone Number [facility] [address] [facility] [place] [address] * Magnesium (01/31/2021 5:59 AM CDT) [facility] Magnesium 2.0 1.4 - 2.5 mg/dL [facility] Comment: Reference Data. Reference values for Labor and Delivery patients: < or = 0.7 mg/dL to > or = 7.3 mg/dL Current reference data last reviewd on 02/19/2015. Blood 01/31/2021 5:59 AM CDT 01/31/2021 6:16 AM CDT Suzette Rogers MD LAB BLOOD ORDERABLES Final Res ult Performing Organization Address [facility] de Phone Number YO CORTEZCH [address] [facility] [place] [address] * (ABNORMAL) Basic metabolic panel (01/31/2021 5:59 AM CDT) Pathologist [facility] Sodium 137 135 - 145 mmol/L [facility] Potassium, pl 5.3(H) 3.3 - 4.9 mmol/L [facility] Chloride 103 97 - 110 mmol/L [facility] CO2 28 22 - 32 mmol/L [facility] Anion gap 6 2 - 15 mmol/L [facility] BUN 28(H) 8 - 25 mg/dL [facility] Creatinine 1.41(H) 0.80 - 1.30 mg/dL [facility] Glucose 163 70 - 199 mg/dL [facility] Comment: Interpretive Data Fasting glucose >/= [...] 2017. Calcium 9.0 8.5 - 10.3 mg/dL [facility] Blood 01/31/2021 5:59 AM CDT 01/31/2021 6:16 AM CDT Suzette Rogers MD LAB BLOOD ORDERABLES Final Res ult Performing Organization Address [facility] Co de Phone Number [facility] [address] [facility] [place] [address] * ECG 12 lead (01/31/2021 5:16 AM CDT) 01/31/2021 5:16 AM CDT Narrative [facility] - 02/02/2021 11:24 AM CDT Vent Rate: 49 bpm RR Interval: 1207 msec ID Interval: 173 msec QRS Duration: 120 msec QT Interval: 488 msec QTC Interval: 459 msec P-R-T Amelia: 45 - 45 - 19 degrees SINUS BRADYCARDIA POSSIBLE LEFT ATRIAL ENLARGEMENT INTRAVENTRICULAR CONDUCTION DELAY [REASON: QRS 120 MS OR WIDER] Poor R wave progression. ABNORMAL ECG Electronically Signed By: Starla Richardson [facility] Suzette Rogers MD ECG ORDERABLES Final Result Performing Organization Address [facility]/ZIP Co de Phone Number [facility] * (ABNORMAL) Aerobic and anaerobic culture and gram stain Miscellaneous Ureter, right (01/30/2021 3:05 PM CDT) Pathologist [facility] Direct Specimen Exam Stain: No organisms seen. No polymorphonuclear leukocytes seen. YO CRAFT Comment:Testing performed by : [facility], [address] [place] [address]., [address] Report Amended Report: Very light growth Propionibacterium (Cutibacterium) avidum Susceptibility not performed on this isolate (.) YO CRAFT Comment:Testing performed by : [facility], [address] [place] [address]., [id number] Organism PROPIONIBACTERIUM AVIDUM YO [facility]FT Miscellaneous (Ureter, right) 01/30/2021 3:05 PM CDT 01/30/2021 4:20 PM CDT Suzette Rogers MD LAB MICROBIOLOGY - GENERAL ORD ERABLES Edited Result - Final Performing Organization Address [facility] de Phone Number [facility] [address] [address] [place], [place] [id number] * POC ISTAT (01/30/2021 12:00 PM CDT) [facility] K POC 4.6 3.3 - 4.9 mmol/L YO CRAFT Comment: Interpretive Data Unable to assess hemolysis. ??Invitro hemolysis causes falsely elevated potassium. Current Interpretive Data was last revised on 2019. POC Device Number [id number] YO [facility]IRLEY POC Performer [id number] YO [facility] Blood 01/30/2021 12:0 0 PM CDT 01/30/2021 12:00 PM CDT Suzette Rogers MD LAB BLOOD ORDERABLES Final Res ult Performing Organization Address [facility] de Phone Number [facility] [address] [facility] [employer] [place], [place] [phone] documented in this encounter Visit Diagnoses Diagnosis Urethral erosion- Primary Urethral erosion documented in this encounter Admitting Diagnoses Diagnosis [...] First dose on Tue01/30/21 at 2100, Indications: hyperlipidemiaIndications :hyperlipidemia Given 01/30/2021 8:41 PM CDT 40 mg bupivacaine (MARCAINE) 0.25 % (2.5 mg/mL) preservative free injection As needed, Starting on Tue01/30/21 at 1518, Intra-Op Given 01/30/2021 3:18 PM CDT 20 mL Surgical Site carvediloL (COREG) tablet 12.5 mg 12.5 mg, oral, 2 times daily with meals (bkfst, dinner), First dose on Tue01/30/21 at 1800, Hold for HR <60, Indications: hypertensionIndications:h ypertension Given 01/30/2021 6:52 PM CDT 12.5 mg dextrose 5% and sodium chloride 0.45% infusion (premix) 75 mL/hr, intravenous, Continuous, Starting on Tue01/30/21 at 1915 New Bag 01/30/2021 6:52 PM CDT 75 mL/hr 75 mL/hr docusate sodium (COLACE) capsule 100 mg 100 mg, oral, 2 times daily PRN, constipation, Starting on Tue01/30/21 at 1843, Indications: constipationIndications:c onstipation enoxaparin (LOVENOX) syringe 40 mg 40 mg, subcutaneous, Every 12 hours scheduled, First dose (after last reorder) on Tue01/30/21 at 2100, Indications: Deep Vein Thrombosis PreventionIndications:Anny p Vein Thrombosis Prevention Given 01/31/2021 8:41 AM [...] 01/30/2021 1:20 PM CDT 30 mL/h r neomycin-polymyxin B (NEOSPORIN-) 3 mL in sodium chloride 0.9% 1,000 mL irrigation solution As needed, Starting on Tue01/30/21 at 1325, Intra-Op Given 01/30/2021 1:25 PM CDT 1,003 mL Surgical Site ondansetron (ZOFRAN) injection 4 mg [...] times daily PRN, urinary pain, Starting on 01/31/21 at 1210, May discolor urine and sclera. Can stain undergarments and contact lenses. Given 01/31/2021 12:48 PM CDT 100 mg sodium chloride 0.9% irrigation As needed, Starting on Tue01/30/21 at 1414, Intra-Op Given 01/30/2021 2:14 PM CDT 3,000 mL Surgical Site vancomycin (VANCOCIN) 2,000 mg in sodium chloride 0.9% 500 mL IVPB 2,000 mg, intravenous, at 260 mL/hr, Administer over 120 Minutes, Once, On Tue01/30/21 at 1215, For 1 dose, Pre-Op, Administer within 120 minutes of incision., Indications: Prophylaxis, SurgicalIndications:Prophyl axis, Surgical New Bag 01/30/2021 12:19 PM CDT 2,000 mg 260 mL/hr vancomycin 2,000 mg/520 mL in sodium chloride 0.9% (premix) 2,000 mg 2,000 mg (rounded from 2,074.5 mg = 15 mg/kg ? 138.3 kg), intravenous, Administer over 120 Minutes, Every 12 hours, First dose on 01/31/21 at 0000, Indications: Prophylaxis, Surgical, Urinary Tract/Genitourinary InfectionIndications:Prophy laxis, Surgical,Urinary Tract/Genitourinary Infection New Bag 01/31/2021 2:00 AM CDT 2,000 mg documented in this encounter Discontinued Medications Medication Sig Discontinue Reason Start Date End Da te amitriptyline (ELAVIL) 25 mg tabletIndications:deprgisselle jorje Take 25 mg by mouth nightly [...] (two) times a day with meals 01/06/2021 acetaminophen (TYLENOL) 325 mg tablet Take 650 [...] dose on Tue01/30/21 at 1915, Indications: Pain 185 (Given - Provider: Rossana Fitzgerald RN) 0054 (Given - Provider: Jessica Soto RN)0513 (Given - Provider: Jessica Soto RN)1220 (Given - Provider: Rossana Fitzgerald RN) allopurinoL (ZYLOPRIM) tablet 100 mg 100 mg, [...] 0841 (Given - Provider: Rossana Fitzgerald RN) furosemide (LASIX) tablet 20 mg 20 mg, oral, Every morning, First dose on Tue01/31/21 at 0900, Indications: Edema 0919 (Not Given - Provider: Rossana Fitzgerald RN - Reason: Other - Comment: Ok to hold per MD d/t HR and BP) gabapentin (NEURONTIN) capsule 200 mg 200 mg, oral, Nightly, First dose on Tue01/30/21 at 2100, Do not crush, break, or open., Indications: Neuropathic Pain 2040 (Given - Provider: Jessica Soto RN) ketorolac (TORADOL) 15 mg/mL injection 15 mg 15 mg, intravenous, Every 6 hours scheduled, First dose on Tue01/31/21 at 0000, For 3 days, For Adult IV push, administer over 15 seconds, Indications: Pain 0054 (Given - Provid er: Jessica Soto RN)0514 (Given - Provider: Jessica Soto RN)1220 (Given - Provider: Rossana Fitzgerald, AVA) ketorolac [...] 1915 1850 (Not Given - Provider: Rossana Fitzgerald RN - Reason: Other)185 (New Bag - Provider: Rossana Fitzgerald, AVA) [...] chloride 0.9% 100 mL IVPB 1 01/30/2021 diphenhydrAMINE (BENADRYL) i njection 12.5 mg 1 01/30/2021 docusate sodium (COLACE) capsule 100 mg 1 0 01/30/2021 enoxaparin (LOVENOX) syringe 40 mg 1 2020 famotidine (PEPCID) injection 20 mg 1 01/30 fentaNYL (SUBLIMAZE) preserv ative free injection 25 mcg 1 01/30/2021 furosemide (LASIX) tablet 20 mg 1 1 hydrALAZINE (APRESOLINE) injection 5 mg 1 0 01/30/2021 HYDROmorphone (DILAUDID) injection 0.2 mg 1 01/30/2021 labetaloL (NORMODYNE,TRANDAT E) injection 5 mg 1 01/30/2021 Lactated Ringer's (LR) infusion 1 1 meperidine (DEMEROL) preserv ative free injection 12.5 mg 1 01/30/2021 naloxone (NARCAN) 0.4 mg/mL injection 0.04-0.4 mg 1 01/30/2021 ondansetron (ZOFRAN) injection 4 mg 2 01/30 ondansetron ODT (ZOFRAN-ODT) disintegrating tablet 4 mg 1 01/30/2021 oxybutynin (DITROPAN) tablet 5 mg 1 021 prochlorperazine (COMPAZINE) injection 5 mg 1 01/30/2021 scopolamine patch 72 hour 1 patch 1 021 sodium chloride 0.9% flush 0.5-20 mL 1 01/21 Diet Count Last Ordered Date First Orde red Date ADULT DISCHARGE DIET 1 01/31/2021 Nursing Count Last Ordered Date First Orde red Date DISCHARGE ACTIVITY 3 01/31/2021 DISCHARGE CALL PROVIDER 6 01/31/2021 documented in this encounter Care Teams Office Machines Wirer Relationship Specialty Start Date End Date Natasha Bates PA [address] [place] [address] PCP - General Physician Medical Csr 10/08/19 documented as of this encounter
--- OUTSIDE RECORDS SUMMARY | 2024-05-22 05:53 | XMS_ITS | Encounter Summary ---
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 ??Testing performed by the [facility] Molecular Infectious Disease Laboratory. The 2019-Novel Coronavirus [...] June 26, 2020. First COVID-19 test? Unknown [facility] Employeed in healthcare? No [facility] status? No [facility] Group care resident? No [facility] Hospitalized? Unknown [facility] Is patient in ICU? Unknown [facility] Symptomatic as defined by CDC? No [facility] Nasopharyngeal 01/27/2021 11 :58 AM CDT 01/27/2021 6:57 PM CDT Narrative YO [facility] - 01/28/2021 3:20 AM CDT What is the reason for testing?->Screening prior to scheduled procedure or surgery (batch) Suzette Rogers MD LAB MICROBIOLOGY - GENERAL ORD ERABLES Final Result [facility] Department [place] [address] documented in this encounter Visit Diagnoses Diagnosis Preop testing Unspecified pre-operative examination documented in this encounter Care Teams Manager Game Relationship Specialty Start Date End Date Natasha Bates PA [address] [place] [id number] PCP - General Physician Relay Shop Tester 10/08/19 documented as of this encounter
--- OUTSIDE RECORDS SUMMARY | 2024-05-22 05:53 | XMS_ITS | Encounter Summary ---
Author Organization [facility] Address [address] [place] [address] Phone Care Team Providers Care Latin Teacher Name Role Phone Natasha Bates Primary Care Provider [phone] Encounter Details Date Type Department Care Team (Late st Contact Info) Description 11/05/2019 Orders Only [facility] Urology [address] [facility] [address] [place] [address] Suzette Rogers MD [address] [facility] [address] [place] [address] Urinary tract infection without hematuria, site unspecified (Primary Dx) Social History Tobacco Use Types Packs/Day Years Used Date Smoking Tobacco: Never Alcohol Use Standard Drinks/Week Comments No 0 (1 standard drink = 0.6 oz pur e alcohol) Sex and Gender Information Value Date Recorded Sex Assigned at Not on file 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 Gender Identity Not on file Sexual Orientation Not on file documented as of this encounter Ordered Prescriptions Prescription Sig Dispense Quantity Refills Last Filled Start Date End Date nitrofurantoin monohydrate (MACROBID) 100 mg capsuleIndications :Urinary tract infection without hematuria, site unspecified Take 1 capsule (100 mg total) by mouth 2 (two) times a day for 7 days 14 capsule 11/05/2019 0 documented in this encounter Plan of Treatment Not on file documented as of this encounter Visit Diagnoses Diagnosis Urinary tract infection without hematuria, site unspecified- Primary documented in this encounter Discontinued Medications Medication Sig Discontinue Reason Start Date End Da te nitrofurantoin monohydrate (MACROBID) 100 mg capsuleIndications:Urina ry Tract/Genitourinary Infection Take 1 capsule (100 mg total) by mouth 2 (two) times a day for 7 days 11/01/2019 11/05/2019 documented as of this encounter Care Teams Latin Teacher Relationship Specialty Start Date End Date Natasha Bates PA [address] [place] [address] PCP - General Physician Chemical Technician 10/08/19 documented as of this encounter
--- OUTSIDE RECORDS SUMMARY | 2024-05-22 05:53 | XMS_ITS | Encounter Summary ---
Author Organization [facility] Address [address] [place] [address] Care Team Providers Care Heater Installer Name Role Phone Natasha Bates Primary Care Provider [phone] Encounter Details Date Type Department Care Team (Late st Contact Info) Description 01/30/2021 1:20 PM CDT Anesthesia Event [facility] Operating Room [address] [place] [address] Neftali Berry MD [address] [place] [address] Tiffani Ma NP [address] [place] [address] Anesthesia Record Procedure Summary Procedure Name Responsible Anesthesiologist Anesthesia Start Time Anesthesia Stop Time ARTIFICIAL SPHINCTER REMOVAL Neftali Berry MD 01/30/21 1320 01/30/21 1606 Events Date Time Event Comment 01/30/2021 1132 In Preop 1210 1256 AN Equip Check 1320 An Start 1325 In Room 1327 An Start Data 1334 An Induction The patient was reevaluated immediately before moderate or deep sedation use and before anesthesia induction. 1336 An Intubation 1338 Anesthesia Ready 1359 Proc Start 1419 Incision Start [address] lesly lindsey nearly closed, no implant, no need to redose Unasyn 1545 Proc Fin 1559 An Extubation 1559 an stop data 1600 Out of Room 1606 Handoff to RN I completed my handoff [...] disposition at the time of handoff: PACU 1606 An Stop Meds Name Total midazolam 2 mg/2 mL 2 mg fentaNYL PF 150 mcg Lidocaine IV 1% PF 80 mg propofol 170 mg rocuronium 5 mg succinylcholine syringe 100 mg/5 mL 160 mg ePHEDrine 10 mg glycopyrrolate 0.4 mg ondansetron PF 8 mg dexamethasone 4 mg/ml 8 mg ampicillin-sulbactam (UNASYN) 3 g in sod ium chloride 0.9% 100 mL IVPB 3 g famotidine (PEPCID) injection 20 mg 20 m g vancomycin (VANCOCIN) 2,000 mg in sodium chloride 0.9% 500 mL IVPB 0 mg Lactated Ringer's (LR) infusion 1,600 mL * Agents Name O2 N2O Air Sevoflurane Inspired Sevoflurane * Blood No blood administrations on file. Lines, Drains, and Airways Type Details Placement Removal Peripheral IV Placement Date: 01/30/21; Placement Time: 1155; Catheter Size: 20 G; Orientation: Anterior, Left; Location: Forearm; Site Prep: Chlorhexidine; Insertion Attempts: 1; Patient Tolerance: Tolerated well; Removal Date: 01/31/21; Removal Time: 1240 01/30/21 1155 by Елена Flanagan RN 01/31/21 1240 by Rossana Fitzgerald NP ETT Placement Date: 01/30/21; Placement Time: 1400 (created via procedure documentation); Mask Ventilation: 1; Technique: Video laryngoscopy; Type: ETT - single; Single Lumen Tube Size: 7.5 mm; Cuffed: Yes; Laryngoscope: Avi; Blade Size: 4; Location: Oral; Insertion Attempts: 1; Placement Verification: Auscultation, Capnometry; Airway Comment: Atraumatic. Taped and secured. ; Removal Date: 01/30/21; Removal Time: 1559 01/30/21 1400 by Ashly Brewster CRNA 01/30/21 1559 by Ashly Brewster CRNA RETIRED Surgical Site 01/30/21; 1418; Abdomen; 04/24/24 (Retired LDA, Removed/Completed by Epic with LDA Utility); 1213 (Retired LDA, Removed/Completed by Epic with LDA Utility) 01/30/21 1418 by Meaghan Andres RN 04/24/24 1213 by Discharge Provider, Automatic RETIRED Surgical Site 01/30/21; 1418; Perineum; 04/24/24 (Retired LDA, Removed/Completed by Epic with LDA Utility); 1213 (Retired LDA, Removed/Completed by Epic with LDA Utility) 01/30/21 1418 by Meaghan Andres RN 04/24/24 1213 by Discharge Provider, Automatic RETIRED Surgical Site 01/30/21; 1540; Right; Scrotum; 04/24/24 (Retired LDA, Removed/Completed by Epic with LDA Utility); 1213 (Retired LDA, Removed/Completed by Epic with LDA Utility) 01/30/21 1540 by Maeghan Andres RN 04/24/24 1213 by Discharge Provider, Automatic Urethral Catheter Placement Date: 01/30/21; Placement Time: 1543; Inserted by: Dr. 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 OPERATING ROOM 02 / 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]) Surgeons: Suzette [place] MD Responsible Provider: Neftali Berry MD Anesthesia Type: general ASA Status: 3 Anesthesia Type: general Last vitals BP 125/70 Pulse 69 Temp (!) 35.7 ??C (96.3 ??F) Resp 19 SpO2 98% Anesthesia Post Evaluation Patient location during evaluation: PACU Patient participation: complete - patient participated Level of consciousness: fully awake Pain score: 5 Pain management: satisfactory to patient Airway patency: patent Evidence of recall: no Cardiovascular status: hemodynamically stable Respiratory status: nasal cannula Hydration status: acceptable Pt is: normothermic Nausea/Vomiting status: none Comments: Patient will be d/c to floor with continuous pulse oximetry and his CPAP device overnight. No complications documented. * Anesthesia Procedure Notes - Ashly Brewster CRNA - 01/30/2021 1:59 PM CDTAssociated Order(s): Airway Airway Patient location: OR Urgency: elective Indications for airway management: anesthesia Difficult airway: no Staff: Placed by: MANAGER TRANSPORTATION PLANNING: Ashly Brewster CRNA Airway prep: Preoxygenated: yes Patient position: sniffing Mask difficulty assessment: 1 - vent by mask Spontaneous ventilation during airway: absent Sedation level during airway: GA Final airway details: Final airway type: endotracheal airway Tube type: ETT ETT size: 7.5 mm Cuffed: yes Technique used for successful ETT placement: video laryngoscopy Insertion site: oral Blade type: Avi Video blade type: Thompson Blade size: 4 Cormack-Lehane (video): grade I - full view of glottis Cuff volume: 8 mL Cuff inflated with: air ETT to teeth: 24 cm Placement verified by: auscultation and CO2 detection Airway secured with: silk tape Number of attempts: 1 Additional comments: Atraumatic. Taped and secured. * Anesthesia Preprocedure Evaluation - Geovany Osorio MD - 01/27/2021 10:10 AM CDT Images from the original note were not included. [facility] Preoperative Assessment and Planning Preoperative Evaluation Record Evaluation [place] [facility] [place] procedure site: [facility] OR Date: 01/27/21 Anesthesia Evaluation NOTE: This [...] SBP can drop under 100, managed by cte teacher at [facility], carvedilol has been lowered) Hypertension year diagnosed: 2010. + CHF + PAD/Aorta disease (seen by vascular 01/16/2021 for possible venous insufficiency 2/2 BLE edema, continue to wear compression stockings plan to check venous reflux study) - Pertinent negatives: CAD ; IA ; CABG ; valvular heart disease; valve replacement; atrial fibrillation; arrhythmia; pacemaker/ICD; DVT/PE; drug- eluting stent(s); bare metal stent(s) and coronary angioplasty Comments: Last office visit with cardiology BUS COMPANY MANAGER 08/25/2020, carvedilol decreased at this visit Respiratory [...] Patient instructions were provided electronically sent via [employer].Instructed verbally also. Patient verbalized understanding of preoperative [...] COVID19 testing to be performed on 01/27/2021. [facility] will place the order for testing. Result [...] discussed with CPAP attending to determine if [facility] appropriate location for this surgery. [employer] staff message sent to surgeon's office of pending retrievals. OSH discharge summary note: Hospital Course: Howie Delaney is a 55 year old male with history of MIRELLA with nightly CPAP, OSH, CHRF, HTN, HLD, gout, peripheral neuropathy, CKD stage 3, HFpEF with EF75% (05/2020) who presented to [facility] this morning after a fall at home. [...] d/t BLE swelling. Upon arrival to [facility], pt a afebrile with stable VS. Labs [...] surgeon's office to further discuss. Also, sent [employer] staff message. Preoperative evaluation performed by Olivia [...] 325 mg tablet Past Month 11/07/19 -- Provider, Historical, MD allopurinoL (ZYLOPRIM) 100 mg tablet 01/23/2021 [...] test(s): N/A Cardiac catheterization(s): N/A PFT(s): OS ([facility]) 04/30/2020: IMPRESSION: 1. ??Moderate Restrictive Ventilatory Limitation - low ERV is suggestive of extraparenchymal restriction. 2. No bronchodilator response, however this does not preclude the use of bronchodilators 3. There is no previous study available for comparison Vascular studies: N/A Other: OS ([facility]) MRI Brain 11/20/2020: IMPRESSION: 1. No acute intracranial hemorrhage or evidence of acute ischemic infarct. OS ([facility]) CT Angio Brain Neck Stroke 11/20/2020: [...] be occluded is probably a vein. OS ([facility]) Holter Read 14 day 08/19/2020: Summary: [...] 01/21/2021: 1.3 mg/dL Alexis index score: 90 DOS Physical Exam Medical history, medications, and allergies reviewed. Attestation: This PAT evaluation Airway Exam: Mallampati: III Cervical ROM: FROM Cardiovascular Exam: Rate: regular Rhythm: regular Pulmonary Exam: LCTA, bilat Anesthesia Plan ASA 3 My patient is approved for the Anesthesia Controlled Medication protocol when under care of a MANAGER TRANSPORTATION PLANNING Planned anesthesia: General Team communication plan: oral ET tube Comments: Glidescope at hand Informed Consent: Anesthesia plan and risks discussed with patient. Consent and Attending signature: I and/or my designee have discussed the anesthesia plan, benefits, possible alternatives, parental presence at time of induction (if indicated), and clinically relevant risks that may include dental injury, unintentional awareness, and/or other complications. The patient and/or parent/legal guardian understand, and agree to proceed. All questions answered. documented in this encounter Plan of Treatment Not on file documented as of this encounter Procedures Procedure Name Priority Date/Time Associated Diagnosis Comments PA AN PROCEDURE PLACEHOLDER Routine 01/30/2021 1:59 PM CDT PA AN ELECTIVE ENDOTRACHEAL AIRWAY Routine 01/30/2021 1:59 PM CDT documented in this encounter Results * PA AN ELECTIVE ENDOTRACHEAL AIRWAY, PA AN PROCEDURE PLACEHOLDER (01/30/2021 1:59 PM CDT) Narrative Ashly Brewster CRNA - 01/30/2021 1:59 PM CDT Ashly Brewster CRNA ? 01/30/2021 ??2:00 PM Airway Patient location: OR Urgency: elective Indications for airway management: anesthesia Difficult airway: no Staff: Placed by: MANAGER TRANSPORTATION PLANNING: Ashly Brewster CRNA Airway prep: Preoxygenated: yes Patient position: sniffing Mask difficulty assessment: 1 - vent by mask Spontaneous ventilation during airway: absent Sedation level during airway: GA Final airway details: Final airway type: endotracheal airway Tube type: ETT ETT size: 7.5 mm Cuffed: yes Technique used for successful ETT placement: video laryngoscopy Insertion site: oral Blade type: Avi Video blade type: Thompson Blade size: 4 Cormack-Lehane (video): grade I - full view of glottis Cuff volume: 8 mL Cuff inflated with: air ETT to teeth: 24 cm Placement verified by: auscultation and CO2 detection Airway secured with: silk tape Number of attempts: 1 Additional comments: Atraumatic. Taped and secured. us Geovany Osorio MD ANESTHESIA ORDERABLES Fi nal Result documented in this encounter Visit Diagnoses Not on filedocumented in this encounter Administered Medications Inactive Administered Medications - up to 3 most recent administrations Medication Order MAR Action Action Date Dose Rate Site ampicillin-sulbactam (UNASYN) 3 g in sodium chloride 0.9% 100 mL IVPB 3 g, intravenous, at 200 mL/hr, Administer over 30 Minutes, Once, On Tue01/30/21 at 1215, For 1 dose, Pre-Op, Administer within 60 minutes of incision. Mini-Bag Plus bag, Indications: Prophylaxis, SurgicalIndications:Prophylaxis, Surgical New Bag 01/30/2021 1:27 PM CDT 3 g dexAMETHasone (DECADRON) 4 mg/mL injection intravenous, Administer over 2 Minutes, As needed, Starting on Tue01/30/21 at 1340, Anesthesia Intra-op Given 01/30/2021 1:40 PM CDT 8 mg ePHEDrine injection intravenous, Administer over 5 Minutes, As needed, Starting on Tue01/30/21 at 1346, Anesthesia Intra-op Given 01/30/2021 1:57 PM CDT 5 mg Given 01/30/2021 1:46 PM CDT 5 mg famotidine (PEPCID) injection 20 mg 20 mg, intravenous, Administer over 2 Minutes, Once as needed, heartburn, Starting on Tue01/30/21 at 1133, For 1 dose, Pre-Op, Indications: gastroesophageal reflux disease, Heartburn, Heartburn Prevention, RefluxIndications:gastroesophageal reflux disease,Heartburn,Heartburn Prevention,Reflux Given 01/30/2021 1:2 0 PM CDT 20 mg fentaNYL (SUBLIMAZE) preservative free injection intravenous, As needed, Starting on Tue01/30/21 at 1334, Anesthesia Intra-op Given 01/30/2021 2:21 PM CDT 25 mcg Given 01/30/2021 2:17 PM CDT 25 mcg Given 01/30/2021 1:34 PM CDT 100 mcg glycopyrrolate (ROBINUL) injection intravenous, Administer over 1 Minutes, As needed, Starting on Tue01/30/21 at 1338, Anesthesia Intra-op Given 01/30/2021 1:45 PM CDT 0.2 mg Given 01/30/2021 1:38 PM CDT 0.2 mg Lactated Ringer's (LR) infusion 30 mL/hr, intravenous, Continuous, Starting on Tue01/30/21 at 1215, For 4 hours, Pre-Op, Use a 500 ml bag for End Stage Renal Disease Patients. Discontinue if fluid still running once patient arrives to floor. New Bag 01/30/2021 1:38 PM CDT Restarted 01/30/2021 1:26 PM CDT Rate/Dose Verify 01/30/2021 1:20 PM CDT 30 mL/h r lidocaine PF (XYLOCAINE) 10 mg/mL (1 %) preservative free injection intravenous, As needed, Starting on Tue01/30/21 at 1334, Anesthesia Intra-op Given 01/30/2021 1:34 PM CDT 80 mg midazolam (VERSED) 1 mg/mL injection intravenous, As needed, Starting on Tue01/30/21 at 1320, Anesthesia Intra-op Given 01/30/2021 1:20 PM CDT 2 mg ondansetron (ZOFRAN) injection intravenous, Administer over 2 Minutes, As needed, Starting on Tue01/30/21 at 1320, Anesthesia Intra-op Given 01/30/2021 2:56 PM CDT 4 mg Given 01/30/2021 1:20 PM CDT 4 mg propofoL (DIPRIVAN) 10 mg/mL IV intravenous, As needed, Starting on Tue01/30/21 at 1334, Anesthesia Intra-op Given 01/30/2021 1:34 PM CDT 170 mg rocuronium (ZEMURON) injection intravenous, As needed, Starting on Tue01/30/21 at 1334, Anesthesia Intra-op Given 01/30/2021 1:34 PM CDT 5 mg succinylcholine syringe intravenous, As needed, Starting on Tue01/30/21 at 1334, Anesthesia Intra-op Given 01/30/2021 1:34 PM CDT 160 mg documented in this encounter Care Teams Heater Installer Relationship Specialty Start Date End Date Natasha Bates PA [address] [place] [address] PCP - General Physician Objects Conservator 10/08/19 documented as of this encounter
--- OUTSIDE RECORDS SUMMARY | 2024-05-22 05:53 | XMS_ITS | Encounter Summary ---
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 Order for urine culture to [facility] placed. Patient will go tomorrow to the lab. * Telephone Encounter - Josesito Juanita - 02/04/2021 2:51 PM CDT Pt called stated that he is having a lot of pain . Pt would like a call back documented in this encounter Plan of Treatment Not on file documented as of this encounter Visit Diagnoses Not on filedocumented in this encounter Care Teams Fire Dispatcher Relationship Specialty Start Date End Date Natasha Bates PA [address] [place] [address] PCP - General Physician Lens Coater 10/08/19 documented as of this encounter
--- OUTSIDE RECORDS SUMMARY | 2024-05-22 05:53 | XMS_ITS | Encounter Summary ---
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 He will have some burning and incomplete bladder emptying due to the problem with his AUS. We can call in Bactrim DS 1 tab po bid for 3 days prior to surgery. * Telephone Encounter - Mattie Bell RMA - 01/27/2021 2:45 PM CDT Please advise * Telephone Encounter - Makayla Webber CMA - 01/27/2021 1:35 PM CDT Pt called he said he is scheduled to have surg on Tuesday but is having some burning when he urinates and difficulty getting urine out. He is asking if we can send antibiotic if its needed prior to surgery. [facility]; confirmed in chart. documented in this encounter Plan of Treatment Not on file documented as of this encounter Visit Diagnoses Not on filedocumented in this encounter Care Teams Airplane Woodworker Relationship Specialty Start Date End Date Natasha Bates PA [address] [place] [address] PCP - General Physician Dehydrator Operator 10/08/19 documented as of this encounter
--- OUTSIDE RECORDS SUMMARY | 2024-05-22 05:54 | XMS_ITS | Encounter Summary ---
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 Gender Identity Not on file Sexual Orientation Not on file documented as of this encounter Plan of Treatment Not on file documented as of this encounter Procedures Procedure Name Priority Date/Time Associated Diagnosis Comments MICROBIOLOGY SPECIMEN REPORT (CONVERTED) Routine 12/06/2014 1:44 PM CDT URINALYSIS AND REFLEX TO MICROSCOPIC AND CULTURE Routine 12/06/2014 1:44 PM CDT documented in this encounter Results * Microbiology Specimen Report (Converted) (12/06/2014 1:44 PM CDT) 12/06/2014 1:44 PM CDT 12/06/2014 2:00 PM CDT Narrative [facility] HISTORICAL RESULTS - 12/06/2014 1:44 PM CDT Microbiology Specimen Report (Converted) SPECIMEN [id number] ?? COLLECTED: 2014-12-06 13:44:00 KMS ?? REQ#: [id number] REQUESTING DR: Christopher Diop MD ?? SOURCE: URINE ?? SP DESC: CLEAN CATC --- PROCEDURE --- ?--- RESULT --- ?? CULTURE URINE ??(Final) ??- ??Performed at [facility] ?* NO GROWTH DAY 2 <1,000 CFU/ML - [facility] ? [address] [place] [address] ? [place] [address] ? Andrew Agudelo MD Procedure Note 08/12/2018 Microbiology Specimen Report (Converted) SPECIMEN [id number] COLLECTED: 2014-12-06 13:44:00 KMS REQ#:[id number] REQUESTING DR: Christopher Diop MD SOURCE: URINE SP DESC: CLEAN CATC --- PROCEDURE --- --- RESULT --- CULTURE URINE (Final) - Performed at [facility] * NO GROWTH DAY 2 <1,000 CFU/[place] [address] Andrew Agudelo MD Christopher Diop MD LAB BLOOD ORDERABLES Final Result [facility] HISTORICAL RESULTS * (ABNORMAL) Urinalysis reflex to microscopic and culture (12/06/2014 1:44 PM CDT) Ur Collection Type CLEAN CATCH Ur Culture Indicated? C&S NOT INDICATED Urine Color YELLOW YELLOW Urine Clarity HAZY CLEAR Urine Glucose (UA) NORMAL NORMAL mg/dL 12/06/2014 2:17 PM [facility] HISTORICAL RESULTS Urine Bilirubin NEGATIVE NEGATIVE mg/dl 12/06/2014 2:17 PM [facility] HISTORICAL RESULTS Urine Ketones NEGATIVE NEGATIVE mg/dL 12/06/2014 2:17 PM [facility] HISTORICAL RESULTS Ur Specific [place] 1.011 1.005 - 1.025 12/06/2014 2:17 PM [facility] HISTORICAL RESULTS Urine Blood 0.2(H) NEGATIVE mg/dl 12/06/2014 2:17 PM [facility] HISTORICAL RESULTS Urine pH 5.0 5.0 - 8.0 12/06/2014 2:17 PM [facility] HISTORICAL RESULTS Urine Protein NEGATIVE NEGATIVE mg/dL 12/06/2014 2:17 PM [facility] HISTORICAL RESULTS Urine Urobilinogen NORMAL NORMAL mg/dL 12/06/2014 2:17 PM [facility] HISTORICAL RESULTS Urine Nitrite NEGATIVE NEGATIVE 12/06/2014 2:17 PM [facility] HISTORICAL RESULTS Ur Leukocyte Esterase NEGATIVE NEGATIVE Bib/ul 12/06/2014 2:17 PM [facility] HISTORICAL RESULTS Ur Microscopic Review Indicated or Ordered 12/06/2014 2:17 PM [facility] HISTORICAL RESULTS Urine RBC 69 0 - 2 /HPF 12/06/2014 2:17 PM [facility] HISTORICAL RESULTS Urine WBC 1 0 - 2 /HPF 12/06/2014 2:17 PM [facility] HISTORICAL RESULTS Urine Mucus Rare /LPF 12/06/2014 2:17 PM [facility] HISTORICAL RESULTS 12/06/2014 1:44 PM CDT 12/06/2014 1:52 PM [facility] [place] 2[place] Narrative [facility] HISTORICAL RESULTS - 12/06/2014 2:17 PM CDT us Christopher Diop MD LAB MICROBIOLOGY - GENERAL ORDERABLES Final Result [facility] HISTORICAL RESULTS documented in this encounter Visit Diagnoses Diagnosis Edema Chronic kidney disease Chronic kidney disease, unspecified documented in this encounter
--- OUTSIDE RECORDS SUMMARY | 2024-05-22 05:54 | XMS_ITS | Encounter Summary ---
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 Role Phone Unavailable Primary Care Provider Unavailabl e Encounter Details Date Type Department Care Team (Latest Contact Info) Description 01/24/2017 11:01 PM CDT - 02/11/2017 3:45 PM CDT Hospital Encounter [facility] Edd Curry MD [address] [place] [address] Acute cystitis with hematuria; Acute posthemorrhagic anemia; Other specified disorders of bladder; Body mass index (BMI) of 45.0-49.9 in adult (CMS/HCC); Morbid (severe) obesity due to excess calories (CMS/HCC); Congestion and hemorrhage of prostate; Hyperlipidemia; Essential (primary) hypertension; Other constipation; Accidental puncture and laceration of a genitourinary system organ or structure during a genitourinary system procedure; 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 Social History Tobacco Use Types Packs/Day Years Used Date Smoking Tobacco: Never Assessed Sex and Gender Information Value Date Recorded Sex Assigned at Not on file 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 Gender Identity Not on file Sexual Orientation Not on file documented as of this encounter Last Filed Vital Signs Vital Sign Reading Time Taken Comments Blood Pressure 115/71 01/31/2017 6:29 PM CDT Pulse 74 01/31/2017 6:29 PM CDT Temperature 36.7 ??C (98 ??F) 01/31/2017 6:29 PM CDT Respiratory Rate - - Oxygen Saturation 98% 01/31/2017 6:29 PM CDT Inhaled Oxygen Concentration - - Weight 162 kg (357 lb 2 oz) 01/31/2017 6:29 PM C DT Height 188 cm (6' 2 ) 01/31/2017 6:29 PM CDT Body Mass Index 45.85 01/31/2017 6:29 PM CDT documented in this encounter Plan of Treatment Not on file documented as of this encounter Procedures Procedure Name Priority Date/Time Associated Diagnosis Comments CYSTOGRAM Routine 02/10/2017 12:00 AM CDT CBC WITH AUTO DIFFERENTIAL Routine 02/08/2017 6:50 AM CDT CBC WITH AUTO DIFFERENTIAL Routine 02/07/2017 6:21 AM CDT BASIC METABOLIC PANEL Routine 02/07/2017 6:21 AM CDT CBC WITH AUTO DIFFERENTIAL Routine 02/06/2017 7:48 AM CDT BASIC METABOLIC PANEL Routine 02/06/2017 7:48 AM CDT CBC WITH AUTO DIFFERENTIAL Routine 02/05/2017 8:11 AM CDT BASIC METABOLIC PANEL Routine 02/05/2017 8:11 AM CDT CBC WITH AUTO DIFFERENTIAL Routine 02/04/2017 7:43 AM CDT BASIC METABOLIC PANEL Routine 02/04/2017 7:43 AM CDT CBC WITH AUTO DIFFERENTIAL Routine 02/03/2017 7:43 AM CDT BASIC METABOLIC PANEL Routine 02/03/2017 7:38 AM CDT CBC WITH AUTO DIFFERENTIAL Routine 02/02/2017 7:23 PM CDT CBC WITH AUTO DIFFERENTIAL Routine 02/02/2017 6:41 AM CDT BASIC METABOLIC PANEL Routine 02/02/2017 6:41 AM CDT CBC WITH AUTO DIFFERENTIAL Routine 02/01/2017 6:06 PM CDT CBC WITH AUTO DIFFERENTIAL Routine 02/01/2017 8:31 AM CDT BASIC METABOLIC PANEL Routine 02/01/2017 8:31 AM CDT SCAN - PATHOLOGY 02/01/2017 12:0 0 AM CDT CBC WITH AUTO DIFFERENTIAL Routine 01/31/2017 10:38 AM CDT COMPREHENSIVE METABOLIC PANEL Routine 01/31/2017 10:38 AM CDT BASIC METABOLIC PANEL Routine 01/30/2017 6:00 AM CDT HEMOGLOBIN AND HEMATOCRIT Routine 01/29/2017 2:24 PM CDT ELECTROLYTE PANEL Routine 01/29/2017 2:2 4 PM CDT PROCEDURE - RESULT 01/29/2017 12 :00 AM CDT CBC WITH AUTO DIFFERENTIAL Routine 01/27/2017 6:35 AM CDT BASIC METABOLIC PANEL Routine 01/27/2017 6:35 AM CDT CBC WITH AUTO DIFFERENTIAL Routine 01/26/2017 6:38 AM CDT BASIC METABOLIC PANEL Routine 01/26/2017 6:38 AM CDT PROCEDURE - RESULT 01/26/2017 12 :00 AM CDT RETROGRADE PYELOGRAM Routine 01/26/2017 12:00 AM CDT MICROBIOLOGY SPECIMEN REPORT (CONVERTED) Routine 01/25/2017 12:45 PM CDT MICROBIOLOGY SPECIMEN REPORT (CONVERTED) Routine 01/25/2017 12:45 PM CDT LACTATE Routine 01/25/2017 12:45 PM CDT CBC WITH AUTO DIFFERENTIAL Routine 01/25/2017 6:30 AM CDT BASIC METABOLIC PANEL Routine 01/25/2017 6:30 AM CDT CBC WITH AUTO DIFFERENTIAL Routine 01/24/2017 8:05 PM CDT APTT Routine 01/24/2017 8:05 PM CDT PROTIME-INR Routine 01/24/2017 8:05 PM CDT COMPREHENSIVE METABOLIC PANEL Routine 01/24/2017 8:05 PM CDT URINALYSIS, MACRO AND MICRO Routine 01/24/2017 8:[address] ABDOMEN PELVIS W CONTRAST Routine 01/24/2017 12:00 AM CDT documented in this encounter Results * FL Cystogram (02/10/2017 12:00 AM CDT) Anatomical Region Laterality Modality Body N/A Radiographic Maribel ging 02/10/2017 Impressions 02/10/2017 1:27 PM CDT ?? 1. ??No contrast extravasation from the urinary bladder. 2. ??Mild irregularity of the posterior wall of the urinary bladder inferiorly, likely reflecting underlying inflammation/edema. THIS IS AN ELECTRONICALLY VERIFIED REPORT 02/10/2017 1:23 PM: ??Zoraida Pepe M.D. ?? Zoraida Pepe M.D. TB:tb 01:23 PM 01:23 PM BM [EOD] Narrative 02/10/2017 1:27 PM CDT EXAMINATION: ??Static cystogram HISTORY: Injury during caught evacuation, along the posterior wall. TECHNIQUE: ??Static cystogram was performed. ??Licensed Vocational Nurse radiographs of the abdomen and pelvis were performed. ??Following this, contrast was instilled via the indwelling catheter. ??250 mL of contrast was instilled into the urinary bladder. ??2 minutes and 8 seconds of fluoro time were utilized during the procedure. ??17 images were obtained. COMPARISON: ??Retrograde pyelogram 01/26/[address] abdomen and pelvis 01/24/17 FINDINGS: ??Licensed Vocational Nurse radiograph of the abdomen reveals a small amount of air presumably within the urinary bladder. ??There are pelvic phleboliths noted, similar to the prior examination. ??Underlying degenerative changes are noted at the hips, and within the lower lumbar spine. The urinary bladder distends normally with contrast. ??The balloon from a Avila catheters present in the inferior aspect of the urinary bladder. ??There is no contrast extravasation from the urinary bladder. ??There is very mild irregularity noted along the posterior wall of the urinary bladder inferiorly, which could reflect a small amount of inflammation/edema in this region related to recent procedures. Procedure Note Provider, MD Krysta - 10/07/2020 EXAMINATION: Static cystogram HISTORY: Injury during caught evacuation, along the posterior wall. TECHNIQUE: Static cystogram was performed. Licensed Vocational Nurse radiographs of theabdomen and pelvis were performed. Following this, contrast was instilled via the indwelling catheter. 250 mL of contrast was instilled into the urinary bladder. 2 minutes and 8 seconds of fluoro time were utilized during the procedure. 17 images were obtained. COMPARISON: Retrograde pyelogram 01/26/[address] abdomen and pelvis 01/24/17 FINDINGS: Licensed Vocational Nurse radiograph of the abdomen reveals a small amount of air presumably within the urinary bladder. There are pelvic phlebolithsnoted, similar to the prior examination. Underlying degenerative changes arenoted at the hips, and within the lower lumbar spine. The urinary bladder distends normally with contrast. The balloon from aFoley catheters present in the inferior aspect of the urinary bladder. There isno contrast extravasation from the urinary bladder. There is very mild irregularity noted along the posterior wall of the urinary bladderinferiorly, which could reflect a small amount of inflammation/edema in this region related to recent procedures. IMPRESSION: 1. No contrast extravasation from the urinary bladder. 2. Mild irregularity of the posterior wall of the urinary bladderinferiorly, likely reflecting underlying inflammation/edema. THIS IS AN ELECTRONICALLY VERIFIED REPORT 02/10/2017 1:23 PM: Zoraida Pepe M.D. Zoraida Pepe M.D. TB:tb 01:23 PM 01:23 PM BM [EOD] us Sonny Christian MD IMG FLUOROSCOPY PROCEDURES Fin al Result * (ABNORMAL) CBC with auto differential (02/08/2017 6:50 AM CDT) WBC 10.4(H) 4.6 - 10.2 x10 3/ul 02/08/2017 7:43 AM CDT [employer] HISTORICAL RESULTS RBC 3.14(L) 4.11 - 5.71 x10 6/ul 02/08/2017 7:43 AM CDT [facility] [employer] HISTORICAL RESULTS Hemoglobin 9.0(L) 13.0 - 17.0 g/dl 02/08/2017 7:43 AM CDT [facility] [employer] HISTORICAL RESULTS Hct 28.1(L) 38.2 - 48.5 % 02/08/2017 7:43 AM CDT [facility] HISTORICAL RESULTS MCV 89.5 80.0 - 97.0 fl 02/08/2017 7:43 AM CDT [facility] [employer] HISTORICAL RESULTS MCH 28.7 27.0 - 31.2 pg 02/08/2017 7:43 AM CDT [facility] [employer] HISTORICAL RESULTS MCHC 32.0 31.8 - 35.4 g/dl 02/08/2017 7:43 AM CDT [employer] HISTORICAL RESULTS RDW 16.2(H) 11.6 - 14.8 % 02/08/2017 7:43 AM CDT [employer] HISTORICAL RESULTS Plt Count 273 124 - 400 x10 3/ul MPV 12.0(H) 7.4 - 10.4 fl Neut % 64.4 37.0 - 85.0 % Immature Gran % 0.3 0.0 - 3.0 % Lymph % 20.7 5.0 - 45.0 % [place] % 8.9 3.0 - 15.0 % Eos % 5.2 0.0 - 7.0 % Baso % 0.5 0.0 - 2.0 % Absolute Neuts (auto) 6.7 1.7 - 8.7 x10 3/ul Immature Gran # 0.0 0.0 - 0.3 x10 3/ul Absolute Lymphs (auto) 2.2 0.2 - 4.6 x10 3/ul Absolute Monos (auto) 0.9 0.1 - 1.5 x10 3/ul Absolute Eos (auto) 0.5 0.0 - 0.7 x10 3/ul Absolute Basos (auto) 0.1 0.0 - 0.2 x10 3/ul Nucleat RBC Rel Count 0.0 0 - 3 #/100WBC Absolute Nucleated RBC 0.00 x10 3/ul Absolute Neutrophils 6700 200 - 8000 /ul 02/08/2017 6:50 AM CDT 02/08/2017 7:32 AM CDT Summer Tadeo MD LAB BLOOD ORDERABLES F inal Result [facility] HISTORICAL RESULTS * (ABNORMAL) Basic metabolic panel (02/07/2017 6:21 AM CDT) Sodium 141 135 - 145 mmol/L Potassium 4.3 3.3 - 5.1 mmol/L Chloride 102 96 - 108 mmol/L Carbon Dioxide 27 22 - 32 mmol/L Anion Gap 12 7 - 16 Glucose 97 70 - 100 mg/dL BUN 13 6 - 20 mg/dL Creatinine 1.0 0.5 - 1.3 mg/dL Comment: NOTE: Estimated GFR (Cockroft-Gault) will NOT be calculated unless patient Height and Weight were entered. Also, Kidney Disease Stage (GFR) and Estimated GFR (Cockroft-Gault) will NOT be calculated if Creatinine result is <0.2. Kidney Disease Stage 83 mL/MIN Comment: NOTE; ??The GFR is an estimated value using the creatinine, sex, age, and race of the patient. THE Estimated Kidney Disease GFR is validated for AGES 18-70 YEARS STAGE ?mL/Min ?DESCRIPTION ??1 ?90 mL/min or more ?Normal or elevated GFR ??2 ? 60-89 mL/min ?Mildly decreased GFR ??3 ? 30-59 mL/min ?Moderately decreased GFR ??4 ? 15-29 mL/min ?Severely decreased GFR ??5 ? <15 mL/min ? Kidney failure or on dialysis @ Est GFR (Cockcroft-G) 139 ml/MIN 02/07/2017 6:53 AM CDT [employer] HISTORICAL RESULTS Comment: Estimated GFR(Cockroft-Gault)is used to calculate patient medication dosage Calcium 8.2(L) 8.6 - 10.0 mg/dL 02/07/2017 6:53 AM T [employer] HISTORICAL RESULTS 02/07/2017 6:21 AM CDT 02/07/2017 6:29 AM CDT Summer Tadeo MD LAB BLOOD ORDERABLES F inal Result [employer] HISTORICAL RESULTS * (ABNORMAL) CBC with auto differential (02/07/2017 6:21 AM CDT) WBC 10.1 4.6 - 10.2 x10 3/ul 02/07/2017 6:32 AM CDT [employer] HISTORICAL RESULTS RBC 3.08(L) 4.11 - 5.71 x10 6/ul 02/07/2017 6:32 AM T [employer] HISTORICAL RESULTS Hemoglobin 8.8(L) 13.0 - 17.0 g/dl 02/07/2017 6:32 AM T [employer] HISTORICAL RESULTS Hct 27.9(L) 38.2 - 48.5 % 02/07/2017 6:32 AM CDT [facility] [facility] H[facility] RES[facility] MCV 90.6 80.0 - 97.0 fl 02/07/2017 6:32 AM CDT [facility] MCH 28.6 27.0 - 31.2 pg 02/07/2017 6:32 AM CDT [facility] [employer] [facility] HISTORICAL RESULTS MCHC 31.5(L) 31.8 - 35.4 g/dl 02/07/2017 6:32 AM CDT [facility] [employer] HISTORICAL RESULTS RDW 16.3(H) 11.6 - 14.8 % 02/07/2017 6:32 AM CDT [facility] [employer] HISTORICAL RESULTS Plt Count 248 124 - 400 x10 3/ul 02/07/2017 6:32 AM CDT [employer] HISTORICAL RESULTS MPV 11.8(H) 7.4 - 10.4 fl 02/07/2017 6:32 AM [employer] HISTORICAL RESULTS Neut % 61.4 37.0 - 85.0 % 02/07/2017 6:32 AM [employer] HISTORICAL RESULTS Immature Gran % 0.3 0.0 - 3.0 % 02/07/2017 6:32 AM CDT [facility] [employer] [facility] HIST[facility] RESULTS Lymph % 23.5 5.0 - 45.0 % 02/07/2017 6:32 AM CDT [facility] [employer] HISTORICAL RESULTS [place] % 9.0 3.0 - 15.0 % 02/07/2017 6:32 AM CDT [facility] [employer] [facility] H[facility] RESULTS Eos % 5.5 0.0 - 7.0 % 02/07/2017 6:32 AM [employer] [facility] [employer] HISTORICAL RESULTS Baso % 0.3 0.0 - 2.0 % 02/07/2017 6:32 AM CDT [facility] [employer] HISTORICAL RESULTS Absolute Neuts (auto) 6.2 1.7 - 8.7 x10 3/ul 02/07/2017 6:32 AM CDT [facility] [employer] HISTORICAL RESULTS Immature Gran # 0.0 0.0 - 0.3 x10 3/ul 02/07/2017 6:32 AM CDT [facility] [employer] [facility] Absolute Lymphs (auto) 2.4 0.2 - 4.6 x10 3/ul 02/07/2017 6:32 AM CDT [facility] HISTORICAL RESULTS Absolute Monos (auto) 0.9 0.1 - 1.5 x10 3/ul 02/07/2017 6:32 AM CDT [facility] HISTORICAL RESULTS Absolute Eos (auto) 0.6 0.0 - 0.7 x10 3/ul 02/07/2017 6:32 AM CDT [facility] HISTORICAL RESULTS Absolute Basos (auto) 0.0 0.0 - 0.2 x10 3/ul 02/07/2017 6:32 AM CDT [facility] HISTORICAL RESULTS Nucleat RBC Rel Count 0.0 0 - 3 #/100WBC 02/07/2017 6:32 AM CDT [facility] HISTORICAL RESULTS Absolute Nucleated RBC 0.00 x10 3/ul 02/07/2017 6:32 AM T [facility] HISTORICAL RESULTS Absolute Neutrophils 6200 200 - 8000 /ul 02/07/2017 6:32 AM T [facility] HISTORICAL RESULTS 02/07/2017 6:21 AM CDT 02/07/2017 6:29 AM CDT us Summer Tadeo MD LAB BLOOD ORDERABLES F inal Result [facility] HISTORICAL RESULTS * (ABNORMAL) CBC with auto differential (02/06/2017 7:48 AM CDT) WBC 10.0 4.6 - 10.2 x10 3/ul 02/06/2017 8:06 AM T [facility] HISTORICAL RESULTS RBC 2.96(L) 4.11 - 5.71 x10 6/ul 02/06/2017 8:06 AM T [facility] HISTORICAL RESULTS Hemoglobin 8.6(L) 13.0 - 17.0 g/dl 02/06/2017 8:06 AM T [facility] HISTORICAL RESULTS Hct 26.9(L) 38.2 - 48.5 % 02/06/2017 8:06 AM T [facility] HISTORICAL RESULTS MCV 90.9 80.0 - 97.0 fl 02/06/2017 8:06 AM T [facility] HISTORICAL RESULTS MCH 29.1 27.0 - 31.2 pg MCHC 32.0 31.8 - 35.4 g/dl RDW 16.3(H) 11.6 - 14.8 % Plt Count 233 124 - 400 x10 3/ul MPV 11.8(H) 7.4 - 10.4 fl Neut % 56.3 37.0 - 85.0 % Immature Gran % 0.3 0.0 - 3.0 % Lymph % 27.2 5.0 - 45.0 % [place] % 8.9 3.0 - 15.0 % Eos % 7.0 0.0 - 7.0 % Baso % 0.3 0.0 - 2.0 % Absolute Neuts (auto) 5.6 1.7 - 8.7 x10 3/ul Immature Gran # 0.0 0.0 - 0.3 x10 3/ul Absolute Lymphs (auto) 2.7 0.2 - 4.6 x10 3/ul Absolute Monos (auto) 0.9 0.1 - 1.5 x10 3/ul Absolute Eos (auto) 0.7 0.0 - 0.7 x10 3/ul 02/06/2017 8:06 AM CDT [facility] HISTORICAL RESULTS Absolute Basos (auto) 0.0 0.0 - 0.2 x10 3/ul 02/06/2017 8:06 AM CDT [facility] HISTORICAL RESULTS Nucleat RBC Rel Count 0.0 0 - 3 #/100WBC 02/06/2017 8:06 AM T [facility] HISTORICAL RESULTS Absolute Nucleated RBC 0.00 x10 3/ul 02/06/2017 8:06 AM T [facility] HISTORICAL RESULTS Absolute Neutrophils 5600 200 - 8000 /ul 02/06/2017 8:06 AM T [facility] HISTORICAL RESULTS 02/06/2017 7:48 AM CDT 02/06/2017 7:59 AM CDT Summer Tadeo MD LAB BLOOD ORDERABLES F inal Result [facility] HISTORICAL RESULTS * (ABNORMAL) Basic metabolic panel (02/06/2017 7:48 AM CDT) Sodium 140 135 - 145 mmol/L 02/06/2017 8:34 AM T [facility] HISTORICAL RESULTS Potassium 4.2 3.3 - 5.1 mmol/L Chloride 100 96 - 108 mmol/L Carbon Dioxide 31 22 - 32 mmol/L Anion Gap 9 7 - 16 Glucose 95 70 - 100 mg/dL 02/06/2017 8:34 AM T [facility] HISTORICAL RESULTS BUN 13 6 - 20 mg/dL Creatinine 1.0 0.5 - 1.3 mg/dL Comment: NOTE: Estimated GFR (Cockroft-Gault) will NOT be calculated unless patient Height and Weight were entered. Also, Kidney Disease Stage (GFR) and Estimated GFR (Cockroft-Gault) will NOT be calculated if Creatinine result is <0.2. Kidney Disease Stage 83 mL/MIN 02/06/2017 8:34 AM T [facility] HISTORICAL RESULTS Comment: NOTE; ??The GFR is an estimated value using the creatinine, sex, age, and race of the patient. THE Estimated Kidney Disease GFR is validated for AGES 18-70 YEARS STAGE ?mL/Min ?DESCRIPTION ??1 ?90 mL/min or more ?Normal or elevated GFR ??2 ? 60-89 mL/min ?Mildly decreased GFR ??3 ? 30-59 mL/min ?Moderately decreased GFR ??4 ? 15-29 mL/min ?Severely decreased GFR ??5 ? <15 mL/min ? Kidney failure or on dialysis @ Est GFR (Cockcroft-G) 139 ml/MIN 02/06/2017 8:34 AM T [facility] HISTORICAL RESULTS Comment: Estimated GFR(Cockroft-Gault)is used to calculate patient medication dosage Calcium 8.1(L) 8.6 - 10.0 mg/dL 02/06/2017 8:34 AM T [facility] HISTORICAL RESULTS 02/06/2017 7:48 AM CDT 02/06/2017 7:59 AM CDT us Summer Tadeo MD LAB BLOOD ORDERABLES F inal Result [facility] HISTORICAL RESULTS * (ABNORMAL) CBC with auto differential (02/05/2017 8:11 AM CDT) WBC 10.2 4.6 - 10.2 x10 3/ul 02/05/2017 8:28 AM CDT [facility] H[facility] RES[facility] RBC 2.98(L) 4.11 - 5.71 x10 6/ul 02/05/2017 8:28 AM CDT [facility] H[facility] RESULTS Hemoglobin 8.6(L) 13.0 - 17.0 g/dl 02/05/2017 8:28 AM CDT [facility] H[facility] RESULTS Hct 26.9(L) 38.2 - 48.5 % MCV 90.3 80.0 - 97.0 fl 02/05/2017 8:28 AM CDT [facility] H[facility] RESULTS MCH 28.9 27.0 - 31.2 pg 02/05/2017 8:28 AM CDT [facility] HISTORICAL RESULTS MCHC 32.0 31.8 - 35.4 g/dl 02/05/2017 8:28 AM CDT [facility] HISTORICAL RESULTS RDW 16.5(H) 11.6 - 14.8 % 02/05/2017 8:28 AM CDT [facility] [employer] [facility] HISTORICAL RESULTS Plt Count 234 124 - 400 x10 3/ul 02/05/2017 8:28 AM CDT [facility] [employer] [facility] HISTORICAL RESULTS MPV 11.5(H) 7.4 - 10.4 fl 02/05/2017 8:28 AM CDT [facility] Neut % 57.9 37.0 - 85.0 % 02/05/2017 8:28 AM CDT [facility] [employer] [facility] HISTORICAL RESULTS Immature Gran % 0.4 0.0 - 3.0 % 02/05/2017 8:28 AM CDT [facility] [employer] [facility] HISTORICAL RESULTS Lymph % 26.7 5.0 - 45.0 % 02/05/2017 8:28 AM CDT [facility] HISTORICAL RESULTS [place] % 8.5 3.0 - 15.0 % 02/05/2017 8:28 AM CDT [facility] [employer] [facility] HISTORICAL RESULTS Eos % 6.2 0.0 - 7.0 % Baso % 0.3 0.0 - 2.0 % 02/05/2017 8:28 AM CDT [facility] [employer] [facility] HISTORICAL RESULTS Absolute Neuts (auto) 5.9 1.7 - 8.7 x10 3/ul 02/05/2017 8:28 AM T [facility] HISTORICAL RESULTS Immature Gran # 0.0 0.0 - 0.3 x10 3/ul 02/05/2017 8:28 AM CDT [facility] HISTORICAL RESULTS Absolute Lymphs (auto) 2.7 0.2 - 4.6 x10 3/ul 02/05/2017 8:28 AM CDT [facility] HISTORICAL RESULTS Absolute Monos (auto) 0.9 0.1 - 1.5 x10 3/ul 02/05/2017 8:28 AM T [facility] HISTORICAL RESULTS Absolute Eos (auto) 0.6 0.0 - 0.7 x10 3/ul 02/05/2017 8:28 AM T [facility] HISTORICAL RESULTS Absolute Basos (auto) 0.0 0.0 - 0.2 x10 3/ul 02/05/2017 8:28 AM T [facility] HISTORICAL RESULTS Nucleat RBC Rel Count 0.0 0 - 3 #/100WBC 02/05/2017 8:28 AM T [facility] HISTORICAL RESULTS Absolute Nucleated RBC 0.00 x10 3/ul 02/05/2017 8:28 AM T [facility] HISTORICAL RESULTS Absolute Neutrophils 5900 200 - 8000 /ul 02/05/2017 8:28 AM T [facility] HISTORICAL RESULTS 02/05/2017 8:11 AM CDT 02/05/2017 8:19 AM CDT us Summer Tadeo MD LAB BLOOD ORDERABLES F inal Result [facility] HISTORICAL RESULTS * (ABNORMAL) Basic metabolic panel (02/05/2017 8:11 AM CDT) Sodium 140 135 - 145 mmol/L 02/05/2017 8:43 AM T [facility] HISTORICAL RESULTS Potassium 4.5 3.3 - 5.1 mmol/L 02/05/2017 8:43 AM T [facility] HISTORICAL RESULTS Chloride 101 96 - 108 mmol/L 02/05/2017 8:43 AM T [facility] HISTORICAL RESULTS Carbon Dioxide 32 22 - 32 mmol/L Anion Gap 7 7 - 16 Glucose 101(H) 70 - 100 mg/dL BUN 13 6 - 20 mg/dL Creatinine 1.0 0.5 - 1.3 mg/dL Comment: NOTE: Estimated GFR (Cockroft-Gault) will NOT be calculated unless patient Height and Weight were entered. Also, Kidney Disease Stage (GFR) and Estimated GFR (Cockroft-Gault) will NOT be calculated if Creatinine result is <0.2. Kidney Disease Stage 83 mL/MIN Comment: NOTE; ??The GFR is an estimated value using the creatinine, sex, age, and race of the patient. THE Estimated Kidney Disease GFR is validated for AGES 18-70 YEARS STAGE ?mL/Min ?DESCRIPTION ??1 ?90 mL/min or more ?Normal or elevated GFR ??2 ? 60-89 mL/min ?Mildly decreased GFR ??3 ? 30-59 mL/min ?Moderately decreased GFR ??4 ? 15-29 mL/min ?Severely decreased GFR ??5 ? <15 mL/min ? Kidney failure or on dialysis @ Est GFR (Cockcroft-G) 139 ml/MIN Comment: Estimated GFR(Cockroft-Gault)is used to calculate patient medication dosage Calcium 8.5(L) 8.6 - 10.0 mg/dL 02/05/2017 8:43 AM CDT [employer] HISTORICAL RESULTS 02/05/2017 8:11 AM CDT 02/05/2017 8:19 AM CDT Summer Tadeo MD LAB BLOOD ORDERABLES F inal Result [facility] [employer] HISTORICAL RESULTS * (ABNORMAL) CBC with auto differential (02/04/2017 7:43 AM CDT) WBC 11.1(H) 4.6 - 10.2 x10 3/ul 02/04/2017 8:10 AM CDT [employer] HISTORICAL RESULTS RBC 3.12(L) 4.11 - 5.71 x10 6/ul 02/04/2017 8:10 AM CDT [employer] HISTORICAL RESULTS Hemoglobin 9.1(L) 13.0 - 17.0 g/dl 02/04/2017 8:10 AM CDT [employer] HISTORICAL RESULTS Comment:Results reviewed Hct 28.0(L) 38.2 - 48.5 % 02/04/2017 8:10 AM CDT [employer] HISTORICAL RESULTS MCV 89.7 80.0 - 97.0 fl 02/04/2017 8:10 AM CDT [employer] HISTORICAL RESULTS MCH 29.2 27.0 - 31.2 pg 02/04/2017 8:10 AM CDT [employer] HISTORICAL RESULTS MCHC 32.5 31.8 - 35.4 g/dl 02/04/2017 8:10 AM CDT [employer] HISTORICAL RESULTS RDW 16.5(H) 11.6 - 14.8 % 02/04/2017 8:10 AM CDT [employer] HISTORICAL RESULTS Plt Count 256 124 - 400 x10 3/ul 02/04/2017 8:10 AM CDT [employer] [employer] HISTORICAL RESULTS MPV 12.3(H) 7.4 - 10.4 fl 02/04/2017 8:10 AM CDT [employer] [employer] HISTORICAL RESULTS Neut % 68.7 37.0 - 85.0 % Immature Gran % 0.5 0.0 - 3.0 % Lymph % 20.7 5.0 - 45.0 % [place] % 6.5 3.0 - 15.0 % Eos % 3.4 0.0 - 7.0 % Baso % 0.2 0.0 - 2.0 % Absolute Neuts (auto) 7.6 1.7 - 8.7 x10 3/ul Immature Gran # 0.1 0.0 - 0.3 x10 3/ul Absolute Lymphs (auto) 2.3 0.2 - 4.6 x10 3/ul Absolute Monos (auto) 0.7 0.1 - 1.5 x10 3/ul Absolute Eos (auto) 0.4 0.0 - 0.7 x10 3/ul Absolute Basos (auto) 0.0 0.0 - 0.2 x10 3/ul Nucleat RBC Rel Count 0.0 0 - 3 #/100WBC Absolute Nucleated RBC 0.00 x10 3/ul Absolute Neutrophils 7700 200 - 8000 /ul 02/04/2017 7:43 AM T 02/04/2017 8:04 AM CDT us Summer Tadeo MD LAB BLOOD ORDERABLES F inal Result [facility] HISTORICAL RESULTS * Basic metabolic panel (02/04/2017 7:43 AM CDT) Sodium 141 135 - 145 mmol/L 02/04/2017 9:05 AM T [facility] HISTORICAL RESULTS Potassium 4.4 3.3 - 5.1 mmol/L 02/04/2017 9:05 AM T [facility] HISTORICAL RESULTS Chloride 103 96 - 108 mmol/L 02/04/2017 9:05 AM T [facility] HISTORICAL RESULTS Carbon Dioxide 27 22 - 32 mmol/L 02/04/2017 9:05 AM T [facility] HISTORICAL RESULTS Anion Gap 11 7 - 16 02/04/2017 9:05 AM T [facility] HISTORICAL RESULTS Glucose 96 70 - 100 mg/dL 02/04/2017 9:05 AM T [facility] [facility] BUN 11 6 - 20 mg/dL 02/04/2017 9:05 AM T [facility] HISTORICAL RESULTS Creatinine 1.0 0.5 - 1.3 mg/dL 02/04/2017 9:05 AM T [facility] HISTORICAL RESULTS Comment: NOTE: Estimated GFR (Cockroft-Gault) will NOT be calculated unless patient Height and Weight were entered. Also, Kidney Disease Stage (GFR) and Estimated GFR (Cockroft-Gault) will NOT be calculated if Creatinine result is <0.2. Kidney Disease Stage 83 mL/MIN Comment: NOTE; ??The GFR is an estimated value using the creatinine, sex, age, and race of the patient. THE Estimated Kidney Disease GFR is validated for AGES 18-70 YEARS STAGE ?mL/Min ?DESCRIPTION ??1 ?90 mL/min or more ?Normal or elevated GFR ??2 ? 60-89 mL/min ?Mildly decreased GFR ??3 ? 30-59 mL/min ?Moderately decreased GFR ??4 ? 15-29 mL/min ?Severely decreased GFR ??5 ? <15 mL/min ? Kidney failure or on dialysis @ Est GFR (Cockcroft-G) 139 ml/MIN 02/04/2017 9:05 AM T [employer] HISTORICAL RESULTS Comment: Estimated GFR(Cockroft-Gault)is used to calculate patient medication dosage Calcium 8.7 8.6 - 10.0 mg/dL 02/04/2017 9:05 AM [facility] [employer] HISTORICAL RESULTS 02/04/2017 7:43 AM CDT 02/04/2017 8:04 AM CDT Summer Tadeo MD LAB BLOOD ORDERABLES F inal Result [facility] [employer] HISTORICAL RESULTS * (ABNORMAL) CBC with auto differential (02/03/2017 7:43 AM CDT) WBC 8.8 4.6 - 10.2 x10 3/ul 02/03/2017 11:02 AM [facility] [employer] HISTORICAL RESULTS RBC 2.75(L) 4.11 - 5.71 x10 6/ul 02/03/2017 11:02 AM [facility] [employer] HISTORICAL RESULTS Hemoglobin 7.8(L) 13.0 - 17.0 g/dl 02/03/2017 11:02 AM [facility] [employer] HISTORICAL RESULTS Hct 25.1(L) 38.2 - 48.5 % 02/03/2017 11:02 AM [facility] [employer] HISTORICAL RESULTS MCV 91.3 80.0 - 97.0 fl 02/03/2017 11:02 AM [facility] [employer] HISTORICAL RESULTS MCH 28.4 27.0 - 31.2 pg MCHC 31.1(L) 31.8 - 35.4 g/dl RDW 16.8(H) 11.6 - 14.8 % Plt Count 227 124 - 400 x10 3/ul MPV 12.7(H) 7.4 - 10.4 fl Neut % 61.7 37.0 - 85.0 % Immature Gran % 0.7 0.0 - 3.0 % Lymph % 26.3 5.0 - 45.0 % [place] % 5.8 3.0 - 15.0 % Eos % 5.2 0.0 - 7.0 % Baso % 0.3 0.0 - 2.0 % Absolute Neuts (auto) 5.4 1.7 - 8.7 x10 3/ul Immature Gran # 0.1 0.0 - 0.3 x10 3/ul Absolute Lymphs (auto) 2.3 0.2 - 4.6 x10 3/ul Absolute Monos (auto) 0.5 0.1 - 1.5 x10 3/ul Absolute Eos (auto) 0.5 0.0 - 0.7 x10 3/ul Absolute Basos (auto) 0.0 0.0 - 0.2 x10 3/ul 02/03/2017 11:02 AM CDT [facility] HISTORICAL RESULTS Nucleat RBC Rel Count 0.0 0 - 3 #/100WBC 02/03/2017 11:02 AM T [facility] HISTORICAL RESULTS Absolute Nucleated RBC 0.00 x10 3/ul 02/03/2017 11:02 AM T [facility] HISTORICAL RESULTS Absolute Neutrophils 5500 200 - 8000 /ul 02/03/2017 11:02 AM T [facility] HISTORICAL RESULTS 02/03/2017 7:43 AM CDT 02/03/2017 10:31 AM CDT Summer Tadeo MD LAB BLOOD ORDERABLES F inal Result [facility] HISTORICAL RESULTS * (ABNORMAL) Basic metabolic panel (02/03/2017 7:38 AM CDT) Sodium 141 135 - 145 mmol/L Potassium 4.8 3.3 - 5.1 mmol/L Chloride 106 96 - 108 mmol/L Carbon Dioxide 28 22 - 32 mmol/L Anion Gap 7 7 - 16 Glucose 89 70 - 100 mg/dL BUN 12 6 - 20 mg/dL Creatinine 1.0 0.5 - 1.3 mg/dL Comment: NOTE: Estimated GFR (Cockroft-Gault) will NOT be calculated unless patient Height and Weight were entered. Also, Kidney Disease Stage (GFR) and Estimated GFR (Cockroft-Gault) will NOT be calculated if Creatinine result is <0.2. Kidney Disease Stage 83 mL/MIN 02/03/2017 11:10 AM T [facility] HISTORICAL RESULTS Comment: NOTE; ??The GFR is an estimated value using the creatinine, sex, age, and race of the patient. THE Estimated Kidney Disease GFR is validated for AGES 18-70 YEARS STAGE ?mL/Min ?DESCRIPTION ??1 ?90 mL/min or more ?Normal or elevated GFR ??2 ? 60-89 mL/min ?Mildly decreased GFR ??3 ? 30-59 mL/min ?Moderately decreased GFR ??4 ? 15-29 mL/min ?Severely decreased GFR ??5 ? <15 mL/min ? Kidney failure or on dialysis @ Est GFR (Cockcroft-G) 139 ml/MIN 02/03/2017 11:10 AM T [facility] HISTORICAL RESULTS Comment: Estimated GFR(Cockroft-Gault)is used to calculate patient medication dosage Calcium 8.4(L) 8.6 - 10.0 mg/dL 02/03/2017 11:10 AM T [facility] HISTORICAL RESULTS 02/03/2017 7:38 AM CDT 02/03/2017 10:25 AM CDT us Summer Tadeo MD LAB BLOOD ORDERABLES F inal Result [facility] HISTORICAL RESULTS * (ABNORMAL) CBC with auto differential (02/02/2017 7:23 PM CDT) Pathologist [facility] WBC 9.8 4.6 - 10.2 x10 3/ul 02/02/2017 8:16 PM CDT [facility] HISTORICAL RESULTS RBC 3.07(L) 4.11 - 5.71 x10 6/ul Hemoglobin 8.8(L) 13.0 - 17.0 g/dl 02/02/2017 8:16 PM CDT [facility] HISTORICAL RESULTS Hct 27.9(L) 38.2 - 48.5 % 02/02/2017 8:16 PM CDT [facility] HISTORICAL RESULTS MCV 90.9 80.0 - 97.0 fl 02/02/2017 8:16 PM CDT [facility] HISTORICAL RESULTS MCH 28.7 27.0 - 31.2 pg 02/02/2017 8:16 PM CDT [facility] HISTORICAL RESULTS MCHC 31.5(L) 31.8 - 35.4 g/dl 02/02/2017 8:16 PM CDT [facility] HISTORICAL RESULTS RDW 16.8(H) 11.6 - 14.8 % 02/02/2017 8:16 PM CDT [facility] HISTORICAL RESULTS Plt Count 231 124 - 400 x10 3/ul 02/02/2017 8:16 PM CDT [facility] HISTORICAL RESULTS MPV 12.4(H) 7.4 - 10.4 fl 02/02/2017 8:16 PM CDT [facility] HISTORICAL RESULTS Neut % 60.3 37.0 - 85.0 % 02/02/2017 8:16 PM CDT [facility] HISTORICAL RESULTS Immature Gran % 0.2 0.0 - 3.0 % 02/02/2017 8:16 PM CDT [facility] HISTORICAL RESULTS Lymph % 30.0 5.0 - 45.0 % 02/02/2017 8:16 PM CDT [facility] HISTORICAL RESULTS [place] % 4.6 3.0 - 15.0 % Eos % 4.6 0.0 - 7.0 % 02/02/2017 8:16 PM CDT [facility] HISTORICAL RESULTS Baso % 0.3 0.0 - 2.0 % 02/02/2017 8:16 PM CDT [facility] HISTORICAL RESULTS Absolute Neuts (auto) 5.9 1.7 - 8.7 x10 3/ul 02/02/2017 8:16 PM T [facility] HISTORICAL RESULTS Immature Gran # 0.0 0.0 - 0.3 x10 3/ul 02/02/2017 8:16 PM CDT [facility] HISTORICAL RESULTS Absolute Lymphs (auto) 2.9 0.2 - 4.6 x10 3/ul 02/02/2017 8:16 PM T [facility] HISTORICAL RESULTS Absolute Monos (auto) 0.5 0.1 - 1.5 x10 3/ul 02/02/2017 8:16 PM T [facility] HISTORICAL RESULTS Absolute Eos (auto) 0.5 0.0 - 0.7 x10 3/ul 02/02/2017 8:16 PM T [facility] HISTORICAL RESULTS Absolute Basos (auto) 0.0 0.0 - 0.2 x10 3/ul 02/02/2017 8:16 PM T [facility] HISTORICAL RESULTS Nucleat RBC Rel Count 0.0 0 - 3 #/100WBC 02/02/2017 8:16 PM T [facility] HISTORICAL RESULTS Absolute Nucleated RBC 0.00 x10 3/ul 02/02/2017 8:16 PM T [facility] HISTORICAL RESULTS Absolute Neutrophils 5900 200 - 8000 /ul 02/02/2017 7:23 PM CDT 02/02/2017 8:14 PM CDT Summer Tadeo MD LAB BLOOD ORDERABLES F inal Result [facility] HISTORICAL RESULTS * (ABNORMAL) CBC with auto differential (02/02/2017 6:41 AM CDT) [facility] WBC 8.0 4.6 - 10.2 x10 3/ul 02/02/2017 7:07 AM T [facility] HISTORICAL RESULTS RBC 2.80(L) 4.11 - 5.71 x10 6/ul 02/02/2017 7:07 AM T [facility] HISTORICAL RESULTS Hemoglobin 8.0(L) 13.0 - 17.0 g/dl Hct 25.5(L) 38.2 - 48.5 % MCV 91.1 80.0 - 97.0 fl MCH 28.6 27.0 - 31.2 pg MCHC 31.4(L) 31.8 - 35.4 g/dl RDW 16.6(H) 11.6 - 14.8 % Plt Count 205 124 - 400 x10 3/ul MPV 12.2(H) 7.4 - 10.4 fl Neut % 53.0 37.0 - 85.0 % Immature Gran % 0.2 0.0 - 3.0 % Lymph % 33.2 5.0 - 45.0 % [place] % 6.7 3.0 - 15.0 % Eos % 6.7 0.0 - 7.0 % Baso % 0.2 0.0 - 2.0 % Absolute Neuts (auto) 4.2 1.7 - 8.7 x10 3/ul 02/02/2017 7:[facility] Immature Gran # 0.0 0.0 - 0.3 x10 3/ul Absolute Lymphs (auto) 2.7 0.2 - 4.6 x10 3/ul 02/02/2017 7:07 AM T [facility] HISTORICAL RESULTS Absolute Monos (auto) 0.5 0.1 - 1.5 x10 3/ul 02/02/2017 7:07 AM T [facility] HISTORICAL RESULTS Absolute Eos (auto) 0.5 0.0 - 0.7 x10 3/ul 02/02/2017 7:07 AM T [facility] HISTORICAL RESULTS Absolute Basos (auto) 0.0 0.0 - 0.2 x10 3/ul 02/02/2017 7:07 AM T [facility] HISTORICAL RESULTS Nucleat RBC Rel Count 0.0 0 - 3 #/100WBC 02/02/2017 7:07 AM T [facility] HISTORICAL RESULTS Absolute Nucleated RBC 0.00 x10 3/ul 02/02/2017 7:07 AM T [facility] HISTORICAL RESULTS Absolute Neutrophils 4200 200 - 8000 /ul 02/02/2017 6:41 AM CDT 02/02/2017 6:58 AM CDT us Summer Tadeo MD LAB BLOOD ORDERABLES F inal Result [facility] HISTORICAL RESULTS * (ABNORMAL) Basic metabolic panel (02/02/2017 6:41 AM CDT) Sodium 140 135 - 145 mmol/L 02/02/2017 7:23 AM T [facility] HISTORICAL RESULTS Potassium 4.6 3.3 - 5.1 mmol/L Chloride 105 96 - 108 mmol/L 02/02/2017 7:23 AM T [facility] HISTORICAL RESULTS Carbon Dioxide 25 22 - 32 mmol/L Anion Gap 10 7 - 16 02/02/2017 7:23 AM T [facility] HISTORICAL RESULTS Glucose 94 70 - 100 mg/dL 02/02/2017 7:23 AM T [facility] HISTORICAL RESULTS BUN 14 6 - 20 mg/dL Creatinine 0.9 0.5 - 1.3 mg/dL Comment: NOTE: Estimated GFR (Cockroft-Gault) will NOT be calculated unless patient Height and Weight were entered. Also, Kidney Disease Stage (GFR) and Estimated GFR (Cockroft-Gault) will NOT be calculated if Creatinine result is <0.2. Kidney Disease Stage > 90 mL/MIN Comment: NOTE; ??The GFR is an estimated value using the creatinine, sex, age, and race of the patient. THE Estimated Kidney Disease GFR is validated for AGES 18-70 YEARS STAGE ?mL/Min ?DESCRIPTION ??1 ?90 mL/min or more ?Normal or elevated GFR ??2 ? 60-89 mL/min ?Mildly decreased GFR ??3 ? 30-59 mL/min ?Moderately decreased GFR ??4 ? 15-29 mL/min ?Severely decreased GFR ??5 ? <15 mL/min ? Kidney failure or on dialysis @ Est GFR (Cockcroft-G) 155 ml/MIN Comment: Estimated GFR(Cockroft-Gault)is used to calculate patient medication dosage Calcium 8.2(L) 8.6 - 10.0 mg/dL 02/02/2017 6:41 AM CDT 02/02/2017 6:58 AM CDT Summer Tadeo MD LAB BLOOD ORDERABLES F inal Result [facility] HISTORICAL RESULTS * (ABNORMAL) CBC with auto differential (02/01/2017 6:06 PM CDT) WBC 10.5(H) 4.6 - 10.2 x10 3/ul 02/01/2017 6:38 PM CDT [facility] [employer] HISTORICAL RESULTS RBC 2.78(L) 4.11 - 5.71 x10 6/ul 02/01/2017 6:38 PM CDT [facility] [employer] HISTORICAL RESULTS Hemoglobin 8.0(L) 13.0 - 17.0 g/dl 02/01/2017 6:38 PM CDT [facility] [employer] HISTORICAL RESULTS Hct 24.9(L) 38.2 - 48.5 % 02/01/2017 6:38 PM CDT [facility] [employer] HISTORICAL RESULTS MCV 89.6 80.0 - 97.0 fl 02/01/2017 6:38 PM CDT [employer] HISTORICAL RESULTS MCH 28.8 27.0 - 31.2 pg 02/01/2017 6:38 PM CDT [facility] [employer] HISTORICAL RESULTS MCHC 32.1 31.8 - 35.4 g/dl 02/01/2017 6:38 PM CDT [facility] [employer] HISTORICAL RESULTS RDW 16.4(H) 11.6 - 14.8 % 02/01/2017 6:38 PM CDT [facility] [employer] HISTORICAL RESULTS Plt Count 222 124 - 400 x10 3/ul 02/01/2017 6:38 PM CDT [employer] HISTORICAL RESULTS MPV 12.0(H) 7.4 - 10.4 fl 02/01/2017 6:38 PM CDT [facility] [employer] HISTORICAL RESULTS Neut % 68.2 37.0 - 85.0 % 02/01/2017 6:38 PM CDT [employer] HISTORICAL RESULTS Immature Gran % 0.4 0.0 - 3.0 % 02/01/2017 6:38 PM CDT [employer] HISTORICAL RESULTS Lymph % 20.8 5.0 - 45.0 % 02/01/2017 6:38 PM CDT [facility] [employer] HISTORICAL RESULTS [place] % 4.7 3.0 - 15.0 % 02/01/2017 6:38 PM CDT [facility] HISTORICAL RESULTS Eos % 5.7 0.0 - 7.0 % 02/01/2017 6:38 PM T [facility] HISTORICAL RESULTS Baso % 0.2 0.0 - 2.0 % 02/01/2017 6:38 PM T [facility] HISTORICAL RESULTS Absolute Neuts (auto) 7.2 1.7 - 8.7 x10 3/ul 02/01/2017 6:38 PM T [facility] HISTORICAL RESULTS Immature Gran # 0.0 0.0 - 0.3 x10 3/ul 02/01/2017 6:38 PM T [facility] HISTORICAL RESULTS Absolute Lymphs (auto) 2.2 0.2 - 4.6 x10 3/ul 02/01/2017 6:38 PM T [facility] HISTORICAL RESULTS Absolute Monos (auto) 0.5 0.1 - 1.5 x10 3/ul 02/01/2017 6:38 PM T [facility] HISTORICAL RESULTS Absolute Eos (auto) 0.6 0.0 - 0.7 x10 3/ul 02/01/2017 6:38 PM T [facility] HISTORICAL RESULTS Absolute Basos (auto) 0.0 0.0 - 0.2 x10 3/ul 02/01/2017 6:38 PM T [facility] HISTORICAL RESULTS Nucleat RBC Rel Count 0.0 0 - 3 #/100WBC 02/01/2017 6:38 PM T [facility] HISTORICAL RESULTS Absolute Nucleated RBC 0.00 x10 3/ul 02/01/2017 6:38 PM T [facility] HISTORICAL RESULTS Absolute Neutrophils 7200 200 - 8000 /ul 02/01/2017 6:06 PM CDT 02/01/2017 6:35 PM CDT us Summer Tadeo MD LAB BLOOD ORDERABLES F inal Result [facility] HISTORICAL RESULTS * (ABNORMAL) CBC with auto differential (02/01/2017 8:31 AM CDT) WBC 12.1(H) 4.6 - 10.2 x10 3/ul 02/01/2017 8:50 AM CDT [facility] RES[facility] RBC 3.17(L) 4.11 - 5.71 x10 6/ul 02/01/2017 8:51 AM CDT [facility] Comment:Results reviewed Hemoglobin 9.1(L) 13.0 - 17.0 g/dl 02/01/2017 8:51 AM CDT [facility] RES[facility] Comment:Results reviewed Hct 29.1(L) 38.2 - 48.5 % 02/01/2017 8:50 AM CDT [facility] [employer] HISTORICAL RESULTS MCV 91.8 80.0 - 97.0 fl 02/01/2017 8:50 AM CDT [facility] [employer] HISTORICAL RESULTS MCH 28.7 27.0 - 31.2 pg 02/01/2017 8:50 AM CDT [facility] [employer] HISTORICAL RESULTS MCHC 31.3(L) 31.8 - 35.4 g/dl 02/01/2017 8:50 AM CDT [employer] HISTORICAL RESULTS RDW 16.3(H) 11.6 - 14.8 % 02/01/2017 8:50 AM CDT [employer] HISTORICAL RESULTS Plt Count 242 124 - 400 x10 3/ul 02/01/2017 8:50 AM CDT [employer] HISTORICAL RESULTS MPV 11.8(H) 7.4 - 10.4 fl 02/01/2017 8:50 AM CDT [employer] HISTORICAL RESULTS Neut % 60.6 37.0 - 85.0 % 02/01/2017 8:50 AM CDT [employer] HISTORICAL RESULTS Immature Gran % 0.2 0.0 - 3.0 % 02/01/2017 8:50 AM CDT [facility] [employer] HISTORICAL RESULTS Lymph % 25.4 5.0 - 45.0 % 02/01/2017 8:50 AM CDT [facility] [employer] HISTORICAL RESULTS [place] % 6.0 3.0 - 15.0 % 02/01/2017 8:50 AM CDT [facility] [employer] HISTORICAL RESULTS Eos % 7.5(H) 0.0 - 7.0 % 02/01/2017 8:50 AM CDT [employer] HISTORICAL RESULTS Baso % 0.3 0.0 - 2.0 % 02/01/2017 8:50 AM CDT [facility] HISTORICAL RESULTS Absolute Neuts (auto) 7.3 1.7 - 8.7 x10 3/ul 02/01/2017 8:50 AM T [facility] HISTORICAL RESULTS Immature Gran # 0.0 0.0 - 0.3 x10 3/ul 02/01/2017 8:50 AM T [facility] HISTORICAL RESULTS Absolute Lymphs (auto) 3.1 0.2 - 4.6 x10 3/ul 02/01/2017 8:50 AM CDT [facility] HISTORICAL RESULTS Absolute Monos (auto) 0.7 0.1 - 1.5 x10 3/ul 02/01/2017 8:50 AM T [facility] HISTORICAL RESULTS Absolute Eos (auto) 0.9(H) 0.0 - 0.7 x10 3/ul 02/01/2017 8:50 AM T [facility] HISTORICAL RESULTS Absolute Basos (auto) 0.0 0.0 - 0.2 x10 3/ul 02/01/2017 8:50 AM T [facility] HISTORICAL RESULTS Nucleat RBC Rel Count 0.0 0 - 3 #/100WBC 02/01/2017 8:50 AM T [facility] HISTORICAL RESULTS Absolute Nucleated RBC 0.00 x10 3/ul 02/01/2017 8:50 AM T [facility] HISTORICAL RESULTS Absolute Neutrophils 7300 200 - 8000 /ul 02/01/2017 8:50 AM T [facility] HISTORICAL RESULTS 02/01/2017 8:31 AM CDT 02/01/2017 8:40 AM CDT Narrative [facility] HISTORICAL RESULTS - 02/01/2017 8:50 AM CDT us Summer Tadeo MD LAB BLOOD ORDERABLES F inal Result [facility] HISTORICAL RESULTS * (ABNORMAL) Basic metabolic panel (02/01/2017 8:31 AM CDT) Sodium 142 135 - 145 mmol/L 02/01/2017 9:06 AM T [facility] HISTORICAL RESULTS Potassium 4.9 3.3 - 5.1 mmol/L Chloride 105 96 - 108 mmol/L Carbon Dioxide 25 22 - 32 mmol/L Anion Gap 12 7 - 16 Glucose 94 70 - 100 mg/dL BUN 20 6 - 20 mg/dL Creatinine 1.0 0.5 - 1.3 mg/dL Comment: NOTE: Estimated GFR (Cockroft-Gault) will NOT be calculated unless patient Height and Weight were entered. Also, Kidney Disease Stage (GFR) and Estimated GFR (Cockroft-Gault) will NOT be calculated if Creatinine result is <0.2. Kidney Disease Stage 83 mL/MIN Comment: NOTE; ??The GFR is an estimated value using the creatinine, sex, age, and race of the patient. THE Estimated Kidney Disease GFR is validated for AGES 18-70 YEARS STAGE ?mL/Min ?DESCRIPTION ??1 ?90 mL/min or more ?Normal or elevated GFR ??2 ? 60-89 mL/min ?Mildly decreased GFR ??3 ? 30-59 mL/min ?Moderately decreased GFR ??4 ? 15-29 mL/min ?Severely decreased GFR ??5 ? <15 mL/min ? Kidney failure or on dialysis @ Est GFR (Cockcroft-G) 139 ml/MIN 02/01/2017 9:06 AM T [facility] [employer] HISTORICAL RESULTS Comment: Estimated GFR(Cockroft-Gault)is used to calculate patient medication dosage Calcium 8.0(L) 8.6 - 10.0 mg/dL 02/01/2017 9:06 AM CDT [facility] 02/01/2017 8:31 AM CDT 02/01/2017 8:40 AM CDT Narrative [facility] - 02/01/2017 9:06 AM CDT Summer Tadeo MD LAB BLOOD ORDERABLES F inal Result [facility] HISTORICAL RESULTS * SCAN - PATHOLOGY (02/01/2017 12:00 AM CDT) Narrative 02/01/2017 12:00 AM CDT Ordered by an unspecified provider. Historical Provider Final Res ult * (ABNORMAL) Comprehensive metabolic panel (01/31/2017 10:38 AM CDT) Sodium 141 135 - 145 mmol/L 01/31/2017 11:13 AM [facility] [employer] HISTORICAL RESULTS Potassium 4.4 3.3 - 5.1 mmol/L 01/31/2017 11:13 AM [facility] [employer] HISTORICAL RESULTS Chloride 105 96 - 108 mmol/L 01/31/2017 11:13 AM T [facility] [employer] HISTORICAL RESULTS Carbon Dioxide 29 22 - 32 mmol/L 01/31/2017 11:13 AM T [facility] [employer] HISTORICAL RESULTS Anion Gap 7 7 - 16 01/31/2017 11:13 AM T [facility] [employer] HISTORICAL RESULTS Glucose 104(H) 70 - 100 mg/dL 01/31/2017 11:13 AM T [facility] [employer] HISTORICAL RESULTS BUN 23(H) 6 - 20 mg/dL 01/31/2017 11:13 AM [facility] [employer] [facility] Creatinine 1.3 0.5 - 1.3 mg/dL Comment: NOTE: Estimated GFR (Cockroft-Gault) will NOT be calculated unless patient Height and Weight were entered. Also, Kidney Disease Stage (GFR) and Estimated GFR (Cockroft-Gault) will NOT be calculated if Creatinine result is <0.2. Kidney Disease Stage 62 mL/MIN Comment: NOTE; ??The GFR is an estimated value using the creatinine, sex, age, and race of the patient. THE Estimated Kidney Disease GFR is validated for AGES 18-70 YEARS STAGE ?mL/Min ?DESCRIPTION ??1 ?90 mL/min or more ?Normal or elevated GFR ??2 ? 60-89 mL/min ?Mildly decreased GFR ??3 ? 30-59 mL/min ?Moderately decreased GFR ??4 ? 15-29 mL/min ?Severely decreased GFR ??5 ? <15 mL/min ? Kidney failure or on dialysis @ Est GFR (Cockcroft-G) 107 ml/MIN Comment: Estimated GFR(Cockroft-Gault)is used to calculate patient medication dosage Calcium 7.5(L) 8.6 - 10.0 mg/dL Total Protein 6.0(L) 6.4 - 8.3 g/dL Albumin 2.8(L) 3.5 - 5.2 g/dL Globulin 3.2 2.3 - 3.5 gm/dL 01/31/2017 11:13 AM CDT [facility] HISTORICAL RESULTS Albumin/Globulin Ratio 0.9(L) 1.1 - 1.8 01/31/2017 11:13 AM CDT [facility] HISTORICAL RESULTS Total Bilirubin < 0.2 0.0 - 1.2 mg/dL 01/31/2017 11:13 AM T [facility] HISTORICAL RESULTS AST 13 0 - 40 U/L 01/31/2017 11:13 AM T [facility] HISTORICAL RESULTS ALT 10 0 - 41 U/L 01/31/2017 11:13 AM T [facility] HISTORICAL RESULTS Alkaline Phosphatase 49 40 - 129 U/L 01/31/2017 11:13 AM T [facility] HISTORICAL RESULTS 01/31/2017 10:3 8 AM CDT 01/31/2017 10:43 AM CDT Summer Tadeo MD LAB BLOOD ORDERABLES F inal Result [facility] HISTORICAL RESULTS * (ABNORMAL) CBC with auto differential (01/31/2017 10:38 AM CDT) WBC 9.8 4.6 - 10.2 x10 3/ul 01/31/2017 10:52 AM T [facility] HISTORICAL RESULTS RBC 2.50(L) 4.11 - 5.71 x10 6/ul 01/31/2017 10:52 AM T [facility] HISTORICAL RESULTS Hemoglobin 7.0(L) 13.0 - 17.0 g/dl Comment:Results reviewed Hct 22.9(L) 38.2 - 48.5 % MCV 91.6 80.0 - 97.0 fl 01/31/2017 10:52 AM T [facility] HISTORICAL RESULTS MCH 28.0 27.0 - 31.2 pg 01/31/2017 10:52 AM T [facility] HISTORICAL RESULTS MCHC 30.6(L) 31.8 - 35.4 g/dl RDW 16.6(H) 11.6 - 14.8 % Plt Count 210 124 - 400 x10 3/ul MPV 11.9(H) 7.4 - 10.4 fl Neut % 45.5 37.0 - 85.0 % Immature Gran % 0.2 0.0 - 3.0 % Lymph % 39.7 5.0 - 45.0 % [place] % 6.5 3.0 - 15.0 % Eos % 7.8(H) 0.0 - 7.0 % Baso % 0.3 0.0 - 2.0 % Absolute Neuts (auto) 4.5 1.7 - 8.7 x10 3/ul Immature Gran # 0.0 0.0 - 0.3 x10 3/ul Absolute Lymphs (auto) 3.9 0.2 - 4.6 x10 3/ul Absolute Monos (auto) 0.6 0.1 - 1.5 x10 3/ul Absolute Eos (auto) 0.8(H) 0.0 - 0.7 x10 3/ul Absolute Basos (auto) 0.0 0.0 - 0.2 x10 3/ul Nucleat RBC Rel Count 0.0 0 - 3 #/100WBC 01/31/2017 10:52 AM T [facility] HISTORICAL RESULTS Absolute Nucleated RBC 0.00 x10 3/ul 01/31/2017 10:52 AM T [facility] HISTORICAL RESULTS Absolute Neutrophils 4500 200 - 8000 /ul 01/31/2017 10:52 AM T [facility] HISTORICAL RESULTS 01/31/2017 10:3 8 AM CDT 01/31/2017 10:43 AM CDT us Summer Tadeo MD LAB BLOOD ORDERABLES F inal Result [facility] HISTORICAL RESULTS * (ABNORMAL) Basic metabolic panel (01/30/2017 6:00 AM CDT) Sodium 139 135 - 145 mmol/L Potassium 5.3(H) 3.3 - 5.1 mmol/L Chloride 105 96 - 108 mmol/L Carbon Dioxide 27 22 - 32 mmol/L Anion Gap 7 7 - 16 Glucose 123(H) 70 - 100 mg/dL BUN 22(H) 6 - 20 mg/dL Creatinine 1.3 0.5 - 1.3 mg/dL Comment: NOTE: Estimated GFR (Cockroft-Gault) will NOT be calculated unless patient Height and Weight were entered. Also, Kidney Disease Stage (GFR) and Estimated GFR (Cockroft-Gault) will NOT be calculated if Creatinine result is <0.2. Kidney Disease Stage 62 mL/MIN 01/30/2017 7:29 AM T [facility] HISTORICAL RESULTS Comment: NOTE; ??The GFR is an estimated value using the creatinine, sex, age, and race of the patient. THE Estimated Kidney Disease GFR is validated for AGES 18-70 YEARS STAGE ?mL/Min ?DESCRIPTION ??1 ?90 mL/min or more ?Normal or elevated GFR ??2 ? 60-89 mL/min ?Mildly decreased GFR ??3 ? 30-59 mL/min ?Moderately decreased GFR ??4 ? 15-29 mL/min ?Severely decreased GFR ??5 ? <15 mL/min ? Kidney failure or on dialysis @ Est GFR (Cockcroft-G) 107 ml/MIN 01/30/2017 7:29 AM [facility] [employer] HISTORICAL RESULTS Comment: Estimated GFR(Cockroft-Gault)is used to calculate patient medication dosage Calcium 7.9(L) 8.6 - 10.0 mg/dL 01/30/2017 7:29 AM T [employer] HISTORICAL RESULTS 01/30/2017 6:00 AM CDT 01/30/2017 7:00 AM CDT us Edd Curry MD LAB BLOOD ORDERABLES Final Result [employer] HISTORICAL RESULTS * Electrolyte panel (01/29/2017 2:24 PM CDT) Sodium 139 135 - 145 mmol/L 01/29/2017 3:02 PM T [employer] HISTORICAL RESULTS Potassium 4.9 3.3 - 5.1 mmol/L 01/29/2017 3:02 PM T [facility] Truli HISTORICAL RESULTS Chloride 104 96 - 108 mmol/L 01/29/2017 3:02 PM CDT [facility] HISTORICAL RESULTS Carbon Dioxide 28 22 - 32 mmol/L 01/29/2017 3:02 PM CDT [facility] HISTORICAL RESULTS Anion Gap 7 7 - 16 01/29/2017 3:02 PM CDT [facility] HISTORICAL RESULTS 01/29/2017 2:24 PM CDT 01/29/2017 2:28 PM CDT Narrative [facility] HISTORICAL RESULTS - 01/29/2017 3:02 PM CDT Comment pt in gi 8 us Sonny Christian MD LAB BLOOD ORDERABLES Final Res ult [facility] HISTORICAL RESULTS * (ABNORMAL) Hemoglobin and hematocrit (01/29/2017 2:24 PM CDT) Hemoglobin 9.0(L) 13.0 - 17.0 g/dl 01/29/2017 2:32 PM CDT [facility] HISTORICAL RESULTS Hct 29.1(L) 38.2 - 48.5 % 01/29/2017 2:32 PM CDT [facility] HISTORICAL RESULTS 01/29/2017 2:24 PM CDT 01/29/2017 2:28 PM CDT us Sonny Christian MD LAB BLOOD ORDERABLES Final Res ult [facility] HISTORICAL RESULTS * PROCEDURE - RESULT (01/29/2017 12:00 AM CDT) Narrative 01/29/2017 12:00 AM CDT Ordered by an unspecified provider. us Historical Provider Final Res ult * (ABNORMAL) CBC with auto differential (01/27/2017 6:35 AM CDT) WBC 11.2(H) 4.6 - 10.2 x10 3/ul 01/27/2017 7:05 AM CDT [facility] HISTORICAL RESULTS RBC 3.46(L) 4.11 - 5.71 x10 6/ul 01/27/2017 7:05 AM T [facility] HISTORICAL RESULTS Hemoglobin 9.5(L) 13.0 - 17.0 g/dl 01/27/2017 7:05 AM CDT [facility] HISTORICAL RESULTS Hct 31.4(L) 38.2 - 48.5 % 01/27/2017 7:05 AM T [facility] HISTORICAL RESULTS MCV 90.8 80.0 - 97.0 fl MCH 27.5 27.0 - 31.2 pg MCHC 30.3(L) 31.8 - 35.4 g/dl RDW 16.4(H) 11.6 - 14.8 % Plt Count 228 124 - 400 x10 3/ul MPV 11.7(H) 7.4 - 10.4 fl Neut % 65.5 37.0 - 85.0 % Immature Gran % 0.3 0.0 - 3.0 % Lymph % 22.4 5.0 - 45.0 % [place] % 7.0 3.0 - 15.0 % Eos % 4.4 0.0 - 7.0 % 01/27/2017 7:05 AM T [facility] HISTORICAL RESULTS Baso % 0.4 0.0 - 2.0 % Absolute Neuts (auto) 7.4 1.7 - 8.7 x10 3/ul Immature Gran # 0.0 0.0 - 0.3 x10 3/ul 01/27/2017 7:05 AM T [facility] HISTORICAL RESULTS Absolute Lymphs (auto) 2.5 0.2 - 4.6 x10 3/ul 01/27/2017 7:05 AM T [facility] HISTORICAL RESULTS Absolute Monos (auto) 0.8 0.1 - 1.5 x10 3/ul 01/27/2017 7:05 AM T [facility] HISTORICAL RESULTS Absolute Eos (auto) 0.5 0.0 - 0.7 x10 3/ul 01/27/2017 7:05 AM T [facility] HISTORICAL RESULTS Absolute Basos (auto) 0.0 0.0 - 0.2 x10 3/ul 01/27/2017 7:05 AM T [facility] HISTORICAL RESULTS Nucleat RBC Rel Count 0.0 0 - 3 #/100WBC 01/27/2017 7:05 AM T [facility] HISTORICAL RESULTS Absolute Nucleated RBC 0.00 x10 3/ul 01/27/2017 7:05 AM T [facility] HISTORICAL RESULTS Absolute Neutrophils 7400 200 - 8000 /ul 01/27/2017 6:35 AM CDT 01/27/2017 6:53 AM CDT Summer Tadeo MD LAB BLOOD ORDERABLES F inal Result [facility] HISTORICAL RESULTS * (ABNORMAL) Basic metabolic panel (01/27/2017 6:35 AM CDT) Sodium 141 135 - 145 mmol/L 01/27/2017 7:32 AM T [facility] HISTORICAL RESULTS Potassium 4.8 3.3 - 5.1 mmol/L 01/27/2017 7:32 AM T [facility] HISTORICAL RESULTS Chloride 105 96 - 108 mmol/L 01/27/2017 7:32 AM T [facility] HISTORICAL RESULTS Carbon Dioxide 28 22 - 32 mmol/L 01/27/2017 7:32 AM T [facility] HISTORICAL RESULTS Anion Gap 8 7 - 16 Glucose 102(H) 70 - 100 mg/dL BUN 20 6 - 20 mg/dL Creatinine 1.2 0.5 - 1.3 mg/dL Comment: NOTE: Estimated GFR (Cockroft-Gault) will NOT be calculated unless patient Height and Weight were entered. Also, Kidney Disease Stage (GFR) and Estimated GFR (Cockroft-Gault) will NOT be calculated if Creatinine result is <0.2. Kidney Disease Stage 68 mL/MIN Comment: NOTE; ??The GFR is an estimated value using the creatinine, sex, age, and race of the patient. THE Estimated Kidney Disease GFR is validated for AGES 18-70 YEARS STAGE ?mL/Min ?DESCRIPTION ??1 ?90 mL/min or more ?Normal or elevated GFR ??2 ? 60-89 mL/min ?Mildly decreased GFR ??3 ? 30-59 mL/min ?Moderately decreased GFR ??4 ? 15-29 mL/min ?Severely decreased GFR ??5 ? <15 mL/min ? Kidney failure or on dialysis @ Est GFR (Cockcroft-G) 116 ml/MIN Comment: Estimated GFR(Cockroft-Gault)is used to calculate patient medication dosage Calcium 8.1(L) 8.6 - 10.0 mg/dL 01/27/2017 6:35 AM CDT 01/27/2017 6:53 AM CDT Summer Tadeo MD LAB BLOOD ORDERABLES F inal Result [facility] HISTORICAL RESULTS * (ABNORMAL) CBC with auto differential (01/26/2017 6:38 AM CDT) WBC 10.5(H) 4.6 - 10.2 x10 3/ul 01/26/2017 7:12 AM CDT [facility] [employer] HISTORICAL RESULTS RBC 3.95(L) 4.11 - 5.71 x10 6/ul 01/26/2017 7:12 AM T [facility] [employer] HISTORICAL RESULTS Hemoglobin 10.9(L) 13.0 - 17.0 g/dl 01/26/2017 7:12 AM T [facility] [employer] HISTORICAL RESULTS Hct 35.4(L) 38.2 - 48.5 % 01/26/2017 7:12 AM T [facility] [employer] HISTORICAL RESULTS MCV 89.6 80.0 - 97.0 fl 01/26/2017 7:12 AM [facility] MCH 27.6 27.0 - 31.2 pg 01/26/2017 7:12 AM T [facility] [employer] HISTORICAL RESULTS MCHC 30.8(L) 31.8 - 35.4 g/dl 01/26/2017 7:12 AM T [facility] [employer] HISTORICAL RESULTS RDW 16.2(H) 11.6 - 14.8 % 01/26/2017 7:12 AM T [facility] [employer] HISTORICAL RESULTS Plt Count 241 124 - 400 x10 3/ul 01/26/2017 7:12 AM T [facility] [employer] HISTORICAL RESULTS MPV 11.9(H) 7.4 - 10.4 fl 01/26/2017 7:12 AM [facility] Truli HISTORICAL RESULTS Neut % 66.1 37.0 - 85.0 % 01/26/2017 7:12 AM T [facility] [employer] HISTORICAL RESULTS Immature Gran % 0.3 0.0 - 3.0 % Lymph % 22.5 5.0 - 45.0 % [place] % 6.7 3.0 - 15.0 % Eos % 3.9 0.0 - 7.0 % Baso % 0.5 0.0 - 2.0 % Absolute Neuts (auto) 6.9 1.7 - 8.7 x10 3/ul Immature Gran # 0.0 0.0 - 0.3 x10 3/ul Absolute Lymphs (auto) 2.4 0.2 - 4.6 x10 3/ul Absolute Monos (auto) 0.7 0.1 - 1.5 x10 3/ul Absolute Eos (auto) 0.4 0.0 - 0.7 x10 3/ul Absolute Basos (auto) 0.1 0.0 - 0.2 x10 3/ul Nucleat RBC Rel Count 0.0 0 - 3 #/100WBC Absolute Nucleated RBC 0.00 x10 3/ul Absolute Neutrophils 6900 200 - 8000 /ul 01/26/2017 6:38 AM CDT 01/26/2017 7:04 AM CDT Summer Tadeo MD LAB BLOOD ORDERABLES F inal Result [facility] HISTORICAL RESULTS * (ABNORMAL) Basic metabolic panel (01/26/2017 6:38 AM CDT) Sodium 139 135 - 145 mmol/L 01/26/2017 7:57 AM T [facility] HISTORICAL RESULTS Potassium 4.7 3.3 - 5.1 mmol/L 01/26/2017 7:57 AM T [facility] HISTORICAL RESULTS Chloride 103 96 - 108 mmol/L 01/26/2017 7:57 AM T [facility] HISTORICAL RESULTS Carbon Dioxide 26 22 - 32 mmol/L Anion Gap 10 7 - 16 01/26/2017 7:57 AM T [facility] HISTORICAL RESULTS Glucose 107(H) 70 - 100 mg/dL 01/26/2017 7:57 AM T [facility] HISTORICAL RESULTS BUN 24(H) 6 - 20 mg/dL 01/26/2017 7:57 AM T [facility] HISTORICAL RESULTS Creatinine 1.3 0.5 - 1.3 mg/dL 01/26/2017 7:57 AM T [facility] HISTORICAL RESULTS Comment: NOTE: Estimated GFR (Cockroft-Gault) will NOT be calculated unless patient Height and Weight were entered. Also, Kidney Disease Stage (GFR) and Estimated GFR (Cockroft-Gault) will NOT be calculated if Creatinine result is <0.2. Kidney Disease Stage 62 mL/MIN Comment: NOTE; ??The GFR is an estimated value using the creatinine, sex, age, and race of the patient. THE Estimated Kidney Disease GFR is validated for AGES 18-70 YEARS STAGE ?mL/Min ?DESCRIPTION ??1 ?90 mL/min or more ?Normal or elevated GFR ??2 ? 60-89 mL/min ?Mildly decreased GFR ??3 ? 30-59 mL/min ?Moderately decreased GFR ??4 ? 15-29 mL/min ?Severely decreased GFR ??5 ? <15 mL/min ? Kidney failure or on dialysis @ Est GFR (Cockcroft-G) 107 ml/MIN 01/26/2017 7:57 AM CDT [facility] HISTORICAL RESULTS Comment: Estimated GFR(Cockroft-Gault)is used to calculate patient medication dosage Calcium 8.6 8.6 - 10.0 mg/dL 01/26/2017 7:57 AM CDT [facility] HISTORICAL RESULTS 01/26/2017 6:38 AM CDT 01/26/2017 7:04 AM CDT Summer Tadeo MD LAB BLOOD ORDERABLES F inal Result [facility] HISTORICAL RESULTS * PROCEDURE - RESULT (01/26/2017 12:00 AM CDT) Narrative 01/26/2017 12:00 AM CDT Ordered by an unspecified provider. Historical Provider Final Res ult * FL Retrograde Pyelogram (01/26/2017 12:00 AM CDT) Anatomical Region Laterality Modality Body N/A Radiographic Maribel ging 01/26/2017 Narrative 01/26/2017 5:53 PM CDT EXAMINATION: ??Retrograde pyelogram. Date: ??01/26/2017 Comparison: ??None HISTORY: ??Lower abdominal pain for 3 days TECHNIQUE: ??Multiple fluoroscopic images of a retrograde pyelogram were obtained. FLUOROSCOPY TIME: ??54 seconds. ??4 fluoroscopic images were obtained. ??20 mL of contrast was injected. FINDINGS: ?? Images demonstrate injection of the right sided collecting system. ??No significant hydronephrosis is present. ??Please see procedure notes for further comments. THIS IS AN ELECTRONICALLY VERIFIED REPORT 01/26/2017 5:50 PM: ??Gareth Ferris M.D. ?? Gareth Ferris M.D. AT:at 05:50 PM 05:50 PM [facility] [EOD] Procedure Note Provider, Krysta, - 10/07/2020 EXAMINATION: Retrograde pyelogram. Date: 01/26/2017 Comparison: None HISTORY: Lower abdominal pain for 3 days TECHNIQUE: Multiple fluoroscopic images of a retrograde pyelogram were obtained. FLUOROSCOPY TIME: 54 seconds. 4 fluoroscopic images were obtained. 20mL of contrast was injected. FINDINGS: Images demonstrate injection of the right sided collecting system. No significant hydronephrosis is present. Please see procedure notes forfurther comments. THIS IS AN ELECTRONICALLY VERIFIED REPORT 01/26/2017 5:50 PM: Gareth Ferris M.D. Gareth Ferris M.D. AT:at 05:50 PM 05:50 PM [facility] [EOD] Sonny Christian MD [facility] FLUOROSCOPY PROCEDURES Fin al Result * Microbiology Specimen Report (Converted) (01/25/2017 12:45 PM CDT) 01/25/2017 12:4 5 PM CDT 01/26/2017 5:48 AM CDT [facility] HISTORICAL RESULTS - 01/25/2017 12:45 PM CDT Microbiology Specimen Report (Converted) SPECIMEN [id number] ?? COLLECTED: 2017-01-25 12:45:00 [id number] ?? REQ#: [id number] REQUESTING DR: Summer Tadeo MD ?? SOURCE: BLOOD ?? SP DESC: --- PROCEDURE --- ?--- RESULT --- ?? CULTURE BLOOD ADULT (SET OF 2) ??(Final) ??- ??Performed at [facility] ?* NO GROWTH DAY 5 - [facility] ? [address] ? [place] [address] ? Andrew Agudelo MD Procedure Note 08/12/2018 Microbiology Specimen Report (Converted) SPECIMEN [id number] COLLECTED: 2017-01-25 12:45:00 [id number] REQ#:[id number] REQUESTING DR: Summer Tadeo MD SOURCE: BLOOD SP DESC: --- PROCEDURE --- --- RESULT --- CULTURE BLOOD ADULT (SET OF 2) (Final) - Performed at [facility] * NO GROWTH DAY 5 - [address] [address] Andrew Agudelo MD Summer Tadeo MD LAB BLOOD ORDERABLES F inal Result [facility] HISTORICAL RESULTS * Microbiology Specimen Report (Converted) (01/25/2017 12:45 PM CDT) 01/25/2017 12:4 5 PM CDT 01/25/2017 12:53 PM CDT Narrative [facility] HISTORICAL RESULTS - 01/25/2017 12:45 PM CDT Microbiology Specimen Report (Converted) SPECIMEN [id number] ?? COLLECTED: 2017-01-25 12:45:00 [id number] ?? REQ#: [id number] REQUESTING DR: Summer Tadeo MD ?? SOURCE: BLOOD ?? SP DESC: --- PROCEDURE --- ?--- RESULT --- ?? CULTURE BLOOD ADULT (SET OF 2) ??(Final) ??- ??Performed at [facility] ?* NO GROWTH DAY 5 - [facility] ? [address] ? [place] [address] ? Andrew Agudelo MD Procedure Note 08/12/2018 Microbiology Specimen Report (Converted) SPECIMEN [id number] COLLECTED: 2017-01-25 12:45:00 [id number] REQ#:[id number] REQUESTING DR: Summer Tadeo MD SOURCE: BLOOD SP DESC: --- PROCEDURE --- --- RESULT --- CULTURE BLOOD ADULT (SET OF 2) (Final) - Performed at [facility] * NO GROWTH DAY 5 - [id number] [place] [address] Andrew Agudelo MD Summer Tadeo MD LAB BLOOD ORDERABLES F inal Result Performing Organization Address [facility]/ZIP Co de Phone Number [facility] HISTORICAL RESULTS * Lactate (01/25/2017 12:45 PM CDT) Pathologist [facility] L-Lactate 0.5 mmol/L 01/25/2017 1:26 PM CDT [facility] HISTORICAL RESULTS Comment:Lactate Reference Ra nge: 0.5 - 2.2 mmol/L 01/25/2017 12:4 5 PM CDT 01/25/2017 12:51 PM CDT Narrative [facility] HISTORICAL RESULTS - 01/25/2017 1:26 PM CDT Summer Tadeo MD LAB BLOOD ORDERABLES F inal Result Performing Organization Address [facility]/ZIP Co de Phone Number [facility] HISTORICAL RESULTS * (ABNORMAL) CBC with auto differential (01/25/2017 6:30 AM CDT) Pathologist [facility] WBC 10.3(H) 4.6 - 10.2 x10 3/ul 01/25/2017 7:00 AM CDT [facility] HISTORICAL RESULTS RBC 3.87(L) 4.11 - 5.71 x10 6/ul 01/25/2017 7:00 AM CDT [facility] HISTORICAL RESULTS Hemoglobin 10.7(L) 13.0 - 17.0 g/dl Hct 33.9(L) 38.2 - 48.5 % MCV 87.6 80.0 - 97.0 fl MCH 27.6 27.0 - 31.2 pg MCHC 31.6(L) 31.8 - 35.4 g/dl RDW 16.3(H) 11.6 - 14.8 % Plt Count 236 124 - 400 x10 3/ul MPV 11.4(H) 7.4 - 10.4 fl Neut % 54.7 37.0 - 85.0 % Immature Gran % 0.3 0.0 - 3.0 % Lymph % 30.6 5.0 - 45.0 % [place] % 8.2 3.0 - 15.0 % Eos % 5.8 0.0 - 7.0 % Baso % 0.4 0.0 - 2.0 % Absolute Neuts (auto) 5.7 1.7 - 8.7 x10 3/ul Immature Gran # 0.0 0.0 - 0.3 x10 3/ul 01/25/2017 7:00 AM CDT [facility] HISTORICAL RESULTS Absolute Lymphs (auto) 3.2 0.2 - 4.6 x10 3/ul 01/25/2017 7:00 AM T [facility] HISTORICAL RESULTS Absolute Monos (auto) 0.9 0.1 - 1.5 x10 3/ul 01/25/2017 7:00 AM T [facility] HISTORICAL RESULTS Absolute Eos (auto) 0.6 0.0 - 0.7 x10 3/ul 01/25/2017 7:00 AM T [facility] HISTORICAL RESULTS Absolute Basos (auto) 0.0 0.0 - 0.2 x10 3/ul 01/25/2017 7:00 AM T [facility] HISTORICAL RESULTS Nucleat RBC Rel Count 0.0 0 - 3 #/100WBC Absolute Nucleated RBC 0.00 x10 3/ul Absolute Neutrophils 5700 200 - 8000 /ul 01/25/2017 6:30 AM CDT 01/25/2017 6:56 AM CDT Edd Curry MD LAB BLOOD ORDERABLES Final Result [facility] HISTORICAL RESULTS * (ABNORMAL) Basic metabolic panel (01/25/2017 6:30 AM CDT) Sodium 140 135 - 145 mmol/L 01/25/2017 7:33 AM T [facility] HISTORICAL RESULTS Potassium 4.5 3.3 - 5.1 mmol/L Chloride 103 96 - 108 mmol/L Carbon Dioxide 29 22 - 32 mmol/L Anion Gap 8 7 - 16 Glucose 94 70 - 100 mg/dL BUN 22(H) 6 - 20 mg/dL Creatinine 1.1 0.5 - 1.3 mg/dL Comment: NOTE: Estimated GFR (Cockroft-Gault) will NOT be calculated unless patient Height and Weight were entered. Also, Kidney Disease Stage (GFR) and Estimated GFR (Cockroft-Gault) will NOT be calculated if Creatinine result is <0.2. Kidney Disease Stage 75 mL/MIN Comment: NOTE; ??The GFR is an estimated value using the creatinine, sex, age, and race of the patient. THE Estimated Kidney Disease GFR is validated for AGES 18-70 YEARS STAGE ?mL/Min ?DESCRIPTION ??1 ?90 mL/min or more ?Normal or elevated GFR ??2 ? 60-89 mL/min ?Mildly decreased GFR ??3 ? 30-59 mL/min ?Moderately decreased GFR ??4 ? 15-29 mL/min ?Severely decreased GFR ??5 ? <15 mL/min ? Kidney failure or on dialysis @ Est GFR (Cockcroft-G) 127 ml/MIN Comment: Estimated GFR(Cockroft-Gault)is used to calculate patient medication dosage Calcium 8.6 8.6 - 10.0 mg/dL 01/25/2017 6:30 AM CDT 01/25/2017 6:56 AM CDT Edd Curry MD LAB BLOOD ORDERABLES Final Result Performing Organization Address [facility] de Phone Number [facility] HISTORICAL RESULTS * Protime-INR (01/24/2017 8:05 PM CDT) PT 13.7 11.8 - 14.5 SECONDS 01/24/2017 8:22 PM CDT [facility] HISTORICAL RESULTS INR 1.05 0.01 - 5.99 01/24/2017 8:22 PM CDT [facility] HISTORICAL RESULTS Comment: Recommended Therapeutic range for Oral Anticoagulant Therapy No anti-coagulation therapy ? Normal Range: ?0.8-1.4 Anti-coagulation therapy ? Low intensity therapy ?2.0-3.0 ? High intensity therapy ?? 2.5-3.5 Critical Value ? Greater than or equal to 6.0 Patients should be monitored for serious bleeding. ?? 01/24/2017 8:05 PM CDT 01/24/2017 8:10 PM [facility]T [facility] LAB BLOOD ORDERABLES Greer l Result Performing Organization Address [facility] de Phone Number [facility] HISTORICAL RESULTS * aPTT (01/24/2017 8:05 PM CDT) APTT 28 26 - 33 SECONDS 01/24/2017 8:23 PM CDT [facility] HISTORICAL RESULTS 01/24/2017 8:05 PM CDT 01/24/2017 8:10 PM CDT [facility] Joy Morgan LAB BLOOD ORDERABLES Greer l Result Performing Organization Address [facility] de Phone Number [facility] HISTORICAL RESULTS * (ABNORMAL) Comprehensive metabolic panel (01/24/2017 8:05 PM CDT) Sodium 141 135 - 145 mmol/L Potassium 5.1 3.3 - 5.1 mmol/L Chloride 101 96 - 108 mmol/L Carbon Dioxide 28 22 - 32 mmol/L Anion Gap 12 7 - 16 Glucose 95 70 - 100 mg/dL BUN 26(H) 6 - 20 mg/dL Creatinine 1.1 0.5 - 1.3 mg/dL Comment: NOTE: Estimated GFR (Cockroft-Gault) will NOT be calculated unless patient Height and Weight were entered. Also, Kidney Disease Stage (GFR) and Estimated GFR (Cockroft-Gault) will NOT be calculated if Creatinine result is <0.2. Kidney Disease Stage 75 mL/MIN Comment: NOTE; ??The GFR is an estimated value using the creatinine, sex, age, and race of the patient. THE Estimated Kidney Disease GFR is validated for AGES 18-70 YEARS STAGE ?mL/Min ?DESCRIPTION ??1 ?90 mL/min or more ?Normal or elevated GFR ??2 ? 60-89 mL/min ?Mildly decreased GFR ??3 ? 30-59 mL/min ?Moderately decreased GFR ??4 ? 15-29 mL/min ?Severely decreased GFR ??5 ? <15 mL/min ? Kidney failure or on dialysis @ Est GFR (Cockcroft-G) 127 ml/MIN Comment: Estimated GFR(Cockroft-Gault)is used to calculate patient medication dosage Calcium 8.9 8.6 - 10.0 mg/dL 01/24/2017 8:37 PM T [facility] HISTORICAL RESULTS Total Protein 8.1 6.4 - 8.3 g/dL Albumin 3.4(L) 3.5 - 5.2 g/dL Globulin 4.7(H) 2.3 - 3.5 gm/dL Albumin/Globulin Ratio 0.7(L) 1.1 - 1.8 Total Bilirubin 0.3 0.0 - 1.2 mg/dL AST 19 0 - 40 U/L ALT 15 0 - 41 U/L Alkaline Phosphatase 73 40 - 129 U/L 01/24/2017 8:05 PM CDT 01/24/2017 8:10 PM CDT Yelena Davisers LAB BLOOD ORDERABLES Greer l Result [facility] HISTORICAL RESULTS * (ABNORMAL) CBC with auto differential (01/24/2017 8:05 PM CDT) WBC 13.9(H) 4.6 - 10.2 x10 3/ul 01/24/2017 8:14 PM T [facility] HISTORICAL RESULTS RBC 4.38 4.11 - 5.71 x10 6/ul 01/24/2017 8:14 PM CDT [facility] HISTORICAL RESULTS Hemoglobin 12.1(L) 13.0 - 17.0 g/dl Hct 38.8 38.2 - 48.5 % MCV 88.6 80.0 - 97.0 fl 01/24/2017 8:14 PM CDT [facility] HISTORICAL RESULTS MCH 27.6 27.0 - 31.2 pg MCHC 31.2(L) 31.8 - 35.4 g/dl 01/24/2017 8:14 PM CDT [facility] HISTORICAL RESULTS RDW 16.2(H) 11.6 - 14.8 % 01/24/2017 8:14 PM CDT [facility] HISTORICAL RESULTS Plt Count 279 124 - 400 x10 3/ul 01/24/2017 8:14 PM CDT [facility] HISTORICAL RESULTS MPV 11.9(H) 7.4 - 10.4 fl 01/24/2017 8:14 PM T [facility] HISTORICAL RESULTS Neut % 57.7 37.0 - 85.0 % 01/24/2017 8:14 PM CDT [facility] HISTORICAL RESULTS Immature Gran % 0.3 0.0 - 3.0 % 01/24/2017 8:14 PM CDT [facility] HISTORICAL RESULTS Lymph % 31.3 5.0 - 45.0 % [place] % 6.2 3.0 - 15.0 % 01/24/2017 8:14 PM CDT [facility] HISTORICAL RESULTS Eos % 4.0 0.0 - 7.0 % Baso % 0.5 0.0 - 2.0 % Absolute Neuts (auto) 8.0 1.7 - 8.7 x10 3/ul Immature Gran # 0.0 0.0 - 0.3 x10 3/ul 01/24/2017 8:14 PM T [facility] HISTORICAL RESULTS Absolute Lymphs (auto) 4.4 0.2 - 4.6 x10 3/ul 01/24/2017 8:14 PM T [facility] HISTORICAL RESULTS Absolute Monos (auto) 0.9 0.1 - 1.5 x10 3/ul 01/24/2017 8:14 PM T [facility] HISTORICAL RESULTS Absolute Eos (auto) 0.6 0.0 - 0.7 x10 3/ul 01/24/2017 8:14 PM T [facility] HISTORICAL RESULTS Absolute Basos (auto) 0.1 0.0 - 0.2 x10 3/ul 01/24/2017 8:14 PM T [facility] HISTORICAL RESULTS Nucleat RBC Rel Count 0.0 0 - 3 #/100WBC Absolute Nucleated RBC 0.00 x10 3/ul 01/24/2017 8:14 PM T [facility] HISTORICAL RESULTS Absolute Neutrophils 8000 200 - 8000 /ul 01/24/2017 8:14 PM T [facility] HISTORICAL RESULTS 01/24/2017 8:05 PM CDT 01/24/2017 8:10 PM CDT us Yelena Morgan LAB BLOOD ORDERABLES [place] l Result [facility] HISTORICAL RESULTS * (ABNORMAL) Urinalysis, macro and micro (01/24/2017 8:00 PM CDT) Ur Collection Type CLEAN CATCH 01/24/2017 8:37 PM T [facility] HISTORICAL RESULTS Urine Color DARK RED YELLOW 01/24/2017 8:37 PM T [facility] HISTORICAL RESULTS Urine Clarity TURBID CLEAR 01/24/2017 8:37 PM T [facility] HISTORICAL RESULTS Urine Glucose (UA) 50(H) NORMAL mg/dL 01/24/2017 8:37 PM T [facility] HISTORICAL RESULTS Urine Bilirubin NEGATIVE NEGATIVE mg/dl Urine Ketones 5(H) NEGATIVE mg/dL 01/24/2017 8:37 PM T [facility] HISTORICAL RESULTS Ur Specific [place] 1.017 1.005 - 1.025 01/24/2017 8:37 PM T [facility] HISTORICAL RESULTS Urine Blood >=1.0 NEGATIVE mg/dl Urine pH 6.0 5.0 - 8.0 01/24/2017 8:37 PM T [facility] HISTORICAL RESULTS Urine Protein 100(H) NEGATIVE mg/dL Urine Urobilinogen NORMAL NORMAL mg/dL Urine Nitrite NEGATIVE NEGATIVE Ur Leukocyte Esterase NEGATIVE NEGATIVE Bib/ul Ur Microscopic Review Indicated or Ordered Urine RBC 40380 0 - 2 /HPF Urine WBC 266 0 - 2 /HPF 01/24/2017 8:00 PM CDT 01/24/2017 8:06 PM CDT Narrative [facility] HISTORICAL RESULTS - 01/24/2017 8:37 PM CDT Yelena Davisers LAB URINE ORDERABLES Greer l Result [facility] HISTORICAL RESULTS * CT Abdomen Pelvis W Contrast (01/24/2017 12:00 AM CDT) Anatomical Region Laterality Modality Body N/A Computed Tomogra phy 01/24/2017 Impressions 01/24/2017 10:08 PM CDT ?? 1. ??Irregular bladder wall thickening is evidence for cystitis. 2. ??Haziness throughout the mesentery may represent third spacing due to aggressive fluid hydration. ??No clear origin is identified. 3. ??Advanced lower lumbar degenerative disc disease.Automated exposure control was used as a dose optimization technique for this examination. THIS IS AN ELECTRONICALLY VERIFIED REPORT 01/24/2017 10:04 PM: ??Calos Carter M.D. ?? Calos Carter M.D. AR:ar 10:04 PM 10:04 PM RYN [EOD] Narrative 01/24/2017 10:08 PM CDT EXAMINATION: ??CT abdomen pelvis without contrast HISTORY: ??Hematuria times 1 day with lower abdominal pain COMPARISON: ??None TECHNIQUE: ??Unenhanced CT sections were obtained through the abdomen and pelvis FINDINGS: ??Abdomen: ??Linear infiltrates in the left lung base are nonspecific, likely atelectatic. Heart size is normal. ??No effusion. Liver, gallbladder, spleen, pancreas, adrenal glands, and kidneys reveal no acute abnormality. ??Stomach and small bowel appear normal. ??Haziness is present throughout the mesentery and extending into the inguinal canals, around the rectal fat, and around the renal fascia. ??No clear origin is identified. ??Major vascular structures are normal in caliber. ??No enlarged lymph node or free fluid is seen. Pelvis: ??Bladder appears collapsed but possibly inflamed. ??No enlarged lymph node or free fluid. ??Bilateral fat containing inguinal hernias with haziness as above. ??Moderate lumbar degenerative change moderate advanced lower lumbar degenerative disc disease and facet arthropathy. ??No acute osseous abnormality identified. Procedure Note Provider, MD Krysta - 10/07/2020 EXAMINATION: CT abdomen pelvis without contrast HISTORY: Hematuria times 1 day with lower abdominal pain COMPARISON: None TECHNIQUE: Unenhanced CT sections were obtained through the abdomen andpelvis FINDINGS: Abdomen: Linear infiltrates in the left lung base arenonspecific, likely atelectatic. Heart size is normal. No effusion. Liver, gallbladder, spleen, pancreas, adrenal glands, and kidneys revealno acute abnormality. Stomach and small bowel appear normal. Haziness is present throughout the mesentery and extending into the inguinal canals, around the rectal fat, and around the renal fascia. No clear origin is identified. Major vascular structures are normal in caliber. No enlarged lymph node or free fluid is seen. Pelvis: Bladder appears collapsed but possibly inflamed. No enlargedlymph node or free fluid. Bilateral fat containing inguinal hernias withhaziness as above. Moderate lumbar degenerative change moderate advanced lowerlumbar degenerative disc disease and facet arthropathy. No acute osseousabnormality identified. IMPRESSION: 1. Irregular bladder wall thickening is evidence for cystitis. 2. Haziness throughout the mesentery may represent third spacing due to aggressive fluid hydration. No clear origin is identified. 3. Advanced lower lumbar degenerative disc disease.Automated exposurecontrol was used as a dose optimization technique for this examination. THIS IS AN ELECTRONICALLY VERIFIED REPORT 01/24/2017 10:04 PM: Calos Carter M.D. Calos Carter M.D. AR:yang 10:04 PM 10:04 PM RYN [EOD] Yelena Morgan [facility] CT PROCEDURES Final R esult documented in this encounter Visit Diagnoses Diagnosis Acute cystitis with hematuria Acute posthemorrhagic anemia Other specified disorders of bladder Body mass index (BMI) of 45.0-49.9 in adult (HCC) Morbid (severe) obesity due to excess calories (HCC) Congestion and hemorrhage of prostate Hyperlipidemia Other and unspecified hyperlipidemia Essential (primary) hypertension Unspecified essential hypertension Other constipation Accidental puncture and laceration of a genitourinary system organ or structure during a genitourinary system procedure Other shelter (current) drug therapy documented in this encounter
--- OUTSIDE RECORDS SUMMARY | 2024-05-22 05:54 | XMS_ITS | Encounter Summary ---
Author Organization [facility] Address [address] [place] [address] Phone Care Team Providers Care Merchandise Complaint Adjuster Name Role Phone Jessica Kurtz NP Primary Care Provider [phone] Reason for Visit * Reason Comments Urinary Incontinence Patient is here for AUS activation Encounter Details Date Type Department Care Team (Late st Contact Info) Description 10/27/2017 11:00 AM CDT Office Visit [facility]) [facility] Urology [address] [place] [address] 11[address] [place] [address] [place] [address] Suzette Rogers MD [address] [facility] [address] [place] [address] Urinary incontinence, unspecified type (Primary Dx); LIZET (stress urinary incontinence), male Social History Tobacco Use Types Packs/Day Years Used Date Smoking Tobacco: Never Alcohol Use Standard Drinks/Week Comments No 0 (1 standard drink = 0.6 oz pur e alcohol) Sex and Gender Information Value Date Recorded Sex Assigned at Not on file 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 male with a history of transurethral resection of the prostate he done towork with severe male stress urinary incontinence. He also prior history of gross hematuria the etiology is not known. He underwent artificial urinary sphincter placement in August of 2017. We use of 4.0 cm cuff at the bulbar urethra, a 61-70 cm pressure regulating balloon, and with the system filled with normal saline. Patient is here for 1st postop visit for his artificial urinary sphincter surgery. Male Exam: His phallus is normal. Glans normal appearing. Urethral meatus normal. Genital skin without lesions. Epididymis: Normal size and symmetry, no masses. Scrotum: no lesions,cysts or masses. Lymphatic: inguinal nodes are not palpable. Testes descended bilaterally, no palpable masses. His artificial urinary sphincter pump is located in his right anterior hemiscrotum. It is activatedwithout any difficulties. There is no evidence of pain or induration or infection from the sphincter system. I activated the artificial urinary sphincter at the flu cycle normally. Next patient try used the artificial urinary sphincter he is able use it without any difficulties. UA: pH of 56 negative for nitrites negative for leukocytes 1+ for protein negative for glucose negative for ketones negative for blood Assessment and Plan: Male stress urinary incontinence Status post artificial urinary sphincter in August 2017 was 4.0 cm cuff History of prostatectomy resulting in urinary incontinence History of gross hematuria etiology is unknown 1. Patient will use artificial urinary sphincter at home. He is going to call me if he had any issues. 2. Patient is to see me in 3 months time to check and check on his incontinence status Linda Rogers MD psychological aide (Urology) Division of Urologic Surgery [facility] Office [phone] 10/27/2017 11:25 AM documented in this encounter Plan of Treatment Not on file documented as of this encounter Procedures Procedure Name Priority Date/Time Associated Diagnosis Comments POCT URINALYSIS DIPSTICK Routine 10/27/2017 11:42 AM CDT Urinary incontinence, unspecified type documented in this encounter Results * (ABNORMAL) POCT urinalysis dipstick (10/27/2017 11:42 AM CDT) Ketones, ur, POC Negative Negative Blood, ur, POC Negative Negative pH, ur, POC 6.0 5.0 - 8.0 Protein, ur, POC 1+(A) Negative Nitrite, ur, POC Negative Negative Leukocytes, ur, POC Negative Negative Lot Number [id number] Urine 10/27/2017 11:4 2 AM CDT Suzette Rogers MD POINT OF CARE TEST ORDERABLES Final Result documented in this encounter Visit Diagnoses Diagnosis Urinary incontinence, unspecified type- Primary LIZET (stress urinary incontinence), male documented in this encounter Historical Medications * This list may reflect changes made after this encounter. isosorbide mononitrate ER (IMDUR) 60 mg 24 hr tablet Take 60 mg by mouth daily. 01/23/2021 added in this encounter Care Teams Merchandise Complaint Adjuster Relationship Specialty Start Date End Date Jessica Kurtz NP [address] [place] [id number] PCP - General 07/21/17 10/07/19 documented as of this encounter
--- OUTSIDE RECORDS SUMMARY | 2024-05-22 05:54 | XMS_ITS | Encounter Summary ---
Author Organization [facility] Address [address] [place] [address] Care Team Providers Care Water Control Supervisor Name Role Phone Unavailable Primary Care Provider Unavailabl e Encounter Details Date Type Department Care Team (Late st Contact Info) Description 06/28/2017 8:00 AM CASH REGISTER SERVICER - 06/28/2017 11:59 PM CASH REGISTER SERVICER Hospital Encounter [facility] OP INTERIM [phone] Suzette Rogers MD [address] [facility] [address] [place] [address] Discharge Disposition: Discharge to home or self care Social History Tobacco Use Types Packs/Day Years Used Date Smoking Tobacco: Never Assessed Sex and Gender Information Value Date Recorded Sex Assigned at Not on file Legal Sex 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 CASH REGISTER SERVICER Gender Identity Not on file Sexual Orientation Not on file documented as of this encounter Discharge Disposition Disposition Code Departure Means Destination Discharge to home or self care documented in this encounter Plan of Treatment Not on file documented as of this encounter Procedures Procedure Name Priority Date/Time Associated Diagnosis Comments URINE CULTURE Routine Gen Lab 06/28/2017 8:43 AM CASH REGISTER SERVICER DISCHARGE LABORATORY CUMULATIVE REPORT 06/28/2017 12:00 AM CASH REGISTER SERVICER documented in this encounter Results * Urine culture (06/28/2017 8:43 AM CASH REGISTER SERVICER) Report Final Report: Insignificant growth based on current clinical standards. [facility] Urine, clean voided 06/28/2017 8:43 AM CASH REGISTER SERVICER 06/28/2017 7:22 PM CASH REGISTER SERVICER Narrative [facility] - 06/29/2017 1:08 PM CASH REGISTER SERVICER us Suzette Rogers MD LAB MICROBIOLOGY - GENERAL ORD ERABLES Final Result [facility] Department [place] [address] * DISCHARGE LABORATORY CUMULATIVE REPORT (06/28/2017 12:00 AM CASH REGISTER SERVICER) Narrative 06/28/2017 12:00 AM CASH REGISTER SERVICER Ordered by an unspecified provider. us Historical Provider LAB BLOOD ORDERABLES Greer l Result documented in this encounter Visit Diagnoses Not on filedocumented in this encounter
--- OUTSIDE RECORDS SUMMARY | 2024-05-22 05:54 | XMS_ITS | Encounter Summary ---
Author Organization [facility] Healthcare Address [address] [place] [address] Care Team Providers Care Pediatric Assistant Name Role Phone Jessica Kurtz NP Primary Care Provider Encounter Details Date Type Department Care Team (Late st Contact Info) Description 09/22/2017 12:20 AM CDT - 09/23/2017 12:17 PM CDT Emergency [facility] OP INTERIM [phone] Jeremy Payne MD 1 [facility] [phone] [place] [address] Suzette Rogers MD [address] [facility] [address] [place], [place] [phone] Discharge Disposition: Discharge to home or self care Social History Tobacco Use Types Packs/Day Years Used Date Smoking Tobacco: Never Alcohol Use Standard Drinks/Week Comments No 0 (1 standard drink = 0.6 oz pur e alcohol) Sex and Gender Information Value Date Recorded Sex Assigned at Not on file Legal 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 Gender Identity Not on file Sexual Orientation Not on file documented as of this encounter Last Filed Vital Signs Vital Sign Reading Time Taken Comments Blood Pressure 111/54 09/23/2017 7:45 AM CDT Pulse 74 09/23/2017 7:45 AM CDT Temperature - - Respiratory Rate - - Oxygen Saturation 97% 09/23/2017 7:45 AM CDT Inhaled Oxygen Concentration - - Weight 158.3 kg (348 lb 15.8 oz) 2017 12:59 PM CDT Height 188 cm (6' 2 ) 09/22/2017 12:59 PM CDT Body Mass Index 44.81 09/22/2017 12:59 PM CDT documented in this encounter Medications at Time of Discharge furosemide (LASIX) 20 mg tabletIndications :Edema Take 20 mg by mouth daily as needed multivitamin tabletIndications :Vitamin Deficiency Take 1 tablet by mouth every morning amitriptyline (ELAVIL) 25 mg tabletIndications :depression Take 25 mg by mouth nightly 01/23/2021 isosorbide mononitrate ER (IMDUR) 30 mg 24 hr tablet Take 30 mg by mouth daily. 01/23/2021 metoprolol XL [...] Procedure Name Priority Date/Time Associated Diagnosis Comments TROPONIN I STAT 09/23/2017 6:44 AM CDT DISCHARGE LABORATORY CUMULATIVE REPORT 09/23/2017 12:00 AM CDT TROPONIN I After X-Ray 09/22/2017 7:37 PM CDT BASIC METABOLIC PANEL After X-Ray 09/22/2017 7:37 PM CDT CBC WITHOUT DIFFERENTIAL After X-Ray 09/22/2017 7:02 PM CDT URINALYSIS STAT 09/22/2017 3:38 PM CDT URINALYSIS AND REFLEX TO MICROSCOPIC STAT 09/22/2017 3:38 PM CDT URINALYSIS, MICROSCOPIC ONLY STAT 09/22/2017 3:38 PM CDT CBC WITHOUT DIFFERENTIAL STAT 09/22/2017 4:58 AM CDT B CHECK SAMPLE STAT 09/22/2017 1:31 AM CDT APTT STAT 09/22/2017 12:50 AM CDT PROTIME-INR STAT 09/22/2017 12:50 AM CDT CBC WITHOUT DIFFERENTIAL STAT 09/22/2017 12:50 AM CDT TYPE AND SCREEN STAT 09/22/2017 12:50 AM CDT BASIC METABOLIC PANEL STAT 09/22/2017 12:50 AM CDT GLUCOSE POC Routine Gen Lab 09/22/2017 12:47 AM CDT documented in this encounter Results * Troponin I (09/23/2017 6:44 AM CDT) Pathologist [facility] Troponin I <0.03 0.00 - 0.03 ng/mL [facility] Comment: Interpretive Data Serial determinations are recommended for the diagnosis of myocardial infarction (Third Cordova Definition of Myocardial Infarction. ??J Am Ariadna Cardiol 2012;60:1581-98). Current interpretive data was last revised on 13. Blood specimen (specimen) 09/23/2017 6:44 AM CDT 09/23/2017 7:56 AM CDT Narrative [facility] - 09/23/2017 8:27 AM CDT us Divina Pathak MD LAB BLOOD ORDERABLES Final Result [facility] [address] [place] [address] * DISCHARGE LABORATORY CUMULATIVE REPORT (09/23/2017 12:00 AM CDT) Narrative 09/23/2017 12:00 AM CDT Ordered by an unspecified provider. [facility] Provider LAB BLOOD ORDERABLES Greer l Result * Troponin I (09/22/2017 7:37 PM CDT) Troponin I <0.03 0.00 - 0.03 ng/mL [facility] Comment: Interpretive Data Serial determinations are recommended for the diagnosis of myocardial infarction (Third Cordova Definition of Myocardial Infarction. ??J Am Ariadna Cardiol 2012;60:1581-98). Current interpretive data was last revised on 13. Blood specimen (specimen) 09/22/2017 7:37 PM CDT 09/22/2017 9:12 PM CDT Narrative [facility] - 09/22/2017 9:59 PM CDT Divina Pathak MD LAB BLOOD ORDERABLES Final Result [facility] [address] [place] [address] * (ABNORMAL) Basic metabolic panel (09/22/2017 7:37 PM CDT) Sodium 139 135 - 145 mmol/L [facility] Potassium, pl 4.4 3.3 - 4.9 mmol/L [facility] Chloride 106 97 - 110 mmol/L [facility] CO2 28 22 - 32 mmol/L [facility] BUN 17 8 - 25 mg/dL [facility] Glucose 73 70 - 199 mg/dL [facility] Comment: Interpretive Data Fasting glucose >/= [...] Current interpretive data was last revised 2017. Creatinine 1.14 0.80 - 1.30 mg/dL [facility] Calcium 8.4(L) 8.5 - 10.3 mg/dL [facility] Anion gap 5 2 - 15 mmol/L [facility] Blood specimen (specimen) 09/22/2017 7:37 PM CDT 09/22/2017 9:12 PM CDT Narrative [facility] - 09/22/2017 9:49 PM CDT us Suzette Rogers MD LAB BLOOD ORDERABLES Final Res ult [facility] [address] [place] [address] * (ABNORMAL) CBC without differential (09/22/2017 7:02 PM CDT) WBC 10.0(H) 3.8 - 9.9 K/cumm [facility] RBC 3.68(L) 4.30 - 5.80 M/cumm [facility] Hgb 9.4(L) 13.0 - 17.5 g/dL [facility] Hct 30.8(L) 38.9 - 50.3 % [facility] MCV 83.7 81.3 - 96.4 fL [facility] MCH 25.5(L) 27.1 - 33.3 pg [facility] MCHC 30.5(L) 32.3 - 35.7 g/dL [facility] RDW CV 17.4(H) 11.1 - 14.9 % [facility] RDW SD 53.3(H) 35.7 - 48.1 fL [facility] NRBC abs 0.00 0.00 - 0.01 K/cumm [facility] Plt 264 150 - 400 K/cumm [facility] MPV 11.9 9.1 - 12.3 fL [facility] Blood specimen (specimen) 09/22/2017 7:02 PM CDT 09/22/2017 7:24 PM CDT Narrative [facility] - 09/22/2017 7:33 PM CDT Leticia Bustamante MD LAB BLOOD ORDERABLES Final Resul t Performing Organization Address [facility] de Phone Number [facility] [place] [address] * (ABNORMAL) Urinalysis, microscopic only (09/22/2017 3:38 PM CDT) RBC, ur >50(H) 0 - 3 /HPF [facility] WBC, ur 0 0 - 5 /HPF [facility] Bacteria, ur Trace Trace [facility] Epithelial cells, renal, ur 0 0 - 0 /HPF [facility] Epithelial cells, squamous, ur 4 /LPF [facility] Urine 09/22/2017 3:38 PM CDT 09/22/2017 5:01 PM CDT Narrative [facility] - 09/22/2017 5:12 PM CDT Leticia Bustamante MD LAB URINE ORDERABLES Final Resul t Performing Organization Address [facility] de Phone Number [facility] Department [place] [address] * (ABNORMAL) Urinalysis (09/22/2017 3:38 PM CDT) Color, ur Straw Yellow [facility] Clarity, ur Clear Clear [facility] Specific gravity, ur 1.011 1.003 - 1.030 [facility] pH, ur 6.0 5.0 - 8.0 [facility] Albumin, ur Negative Trace [facility] Glucose, ur ql Negative Negative [facility] Ketones, ur Negative Negative [facility] Bilirubin, ur Negative Negative [facility] Blood, ur 2+(A) Negative [facility] Urobilinogen, ur <2.0 <2.0 mg/dL [facility] Nitrites, ur Negative Negative [facility] Leukocyte esterase, ur Negative Negative [facility] Urine 09/22/2017 3:38 PM CDT 09/22/2017 5:01 PM CDT Narrative [facility] - 09/22/2017 5:09 PM CDT Leticia Bustamante MD LAB URINE ORDERABLES Final Resul t Performing Organization Address [facility] Co de Phone Number [facility] Department [place] [address] * (ABNORMAL) Urinalysis reflex to microscopic (09/22/2017 3:38 PM CDT) Color, ur Straw Yellow [facility] Clarity, ur Clear Clear [facility] Specific gravity, ur 1.012 1.003 - 1.030 [facility] pH, ur 6.0 5.0 - 8.0 [facility] Albumin, ur Negative Trace [facility] Glucose, ur ql Negative Negative [facility] Ketones, ur Negative Negative [facility] Bilirubin, ur Negative Negative [facility] Blood, ur 2+(A) Negative [facility] Urobilinogen, ur <2.0 <2.0 mg/dL [facility] Nitrites, ur Negative Negative [facility] Leukocyte esterase, ur Negative Negative [facility] Urine 09/22/2017 3:38 PM CDT 09/22/2017 4:39 PM CDT Narrative [facility] - 09/22/2017 4:49 PM CDT us Cam Harkins MD LAB URINE ORDERABLE S Final Result Performing Organization Address [facility] Co de Phone Number [facility] Department [place] [address] * (ABNORMAL) CBC without differential (09/22/2017 4:58 AM CDT) WBC 10.4(H) 3.8 - 9.9 K/cumm [facility] RBC 3.60(L) 4.30 - 5.80 M/cumm [facility] Hgb 8.8(L) 13.0 - 17.5 g/dL [facility] Hct 30.0(L) 38.9 - 50.3 % [facility] MCV 83.3 81.3 - 96.4 fL [facility] MCH 24.4(L) 27.1 - 33.3 pg [facility] MCHC 29.3(L) 32.3 - 35.7 g/dL [facility] RDW CV 17.3(H) 11.1 - 14.9 % [facility] RDW SD 52.9(H) 35.7 - 48.1 fL [facility] NRBC abs 0.00 0.00 - 0.01 K/cumm [facility] Plt 270 150 - 400 K/cumm [facility] MPV 12.3 9.1 - 12.3 fL [facility] Blood specimen (specimen) 09/22/2017 4:58 AM CDT 09/22/2017 5:53 AM CDT Narrative [facility] - 09/22/2017 6:00 AM CDT us Beatrice Burch CUT PRESS OPERATOR LAB BLOOD ORDERABLES Final Result [facility] [place] [address] * B Check Sample (09/22/2017 1:31 AM CDT) ABO Rh A Positive [facility] HCLL OTHER 09/22/2017 1:31 AM CDT 09/22/2017 1:58 AM CDT Narrative [facility] - 09/22/2017 4:24 AM CDT us Notinfile Unknown LAB BLOOD ORDERABLES Final Res ult [facility] [place] [address] * Type and screen (09/22/2017 12:50 AM CDT) Sheila, indirect Negative [facility] ABO Rh A Positive [facility] Blood specimen (specimen) 09/22/2017 12:50 AM CDT 09/22/2017 1:14 AM CDT Narrative [facility] - 09/22/2017 2:58 AM CDT Cam Harkins MD LAB BLOOD BANK TEST ORDERABLES Final Result [facility] [address] [place] [address] * (ABNORMAL) Basic metabolic panel (09/22/2017 12:50 AM CDT) Sodium 141 135 - 145 mmol/L [facility] Potassium, pl 4.0 3.3 - 4.9 mmol/L [facility] Chloride 105 97 - 110 mmol/L [facility] CO2 30 22 - 32 mmol/L [facility] BUN 22 8 - 25 mg/dL [facility] Glucose 101 70 - 199 mg/dL [facility] Comment: Interpretive Data Fasting glucose >/= [...] Current interpretive data was last revised 2017. Creatinine 1.34(H) 0.80 - 1.30 mg/dL [facility] Calcium 8.5 8.5 - 10.3 mg/dL [facility] Anion gap 6 2 - 15 mmol/L [facility] Blood specimen (specimen) 09/22/2017 12:50 AM CDT 09/22/2017 12:59 AM CDT Narrative [facility] - 09/22/2017 1:23 AM CDT Cam Harkins MD LAB BLOOD ORDERABLE S Final Result Performing Organization Address [facility] de Phone Number [facility] [address] [place] [address] * Protime-INR (09/22/2017 12:50 AM CDT) [facility] PT 12.1 8.5 - 13.0 sec [facility] INR 1.13 0.80 - 1.21 [facility] Comment: Interpretive Data Inpatient therapeutic ranges* Atrial fibrillation ?2.0-3.0 INR Venous thrombo-embolism ?2.0-3.0 INR Bioprosthetic heart valve ?* Mechanical heart valve, bileaflet or tilting disk,aortic position ? 2.0-3.0 INR All other,or bileaflet or tilting disk, in mitral position ? 2.5-3.5 INR *See the pharmacy resource directory (PHRED) for an updated copy of the Tool Book at [email or web address] Current Interpretive Data was last revised 2011. Blood specimen (specimen) 09/22/2017 12:50 AM CDT 09/22/2017 12:55 AM CDT Narrative [facility] - 09/22/2017 1:21 AM CDT Cam Harkins MD LAB BLOOD ORDERABLE S Final Result Performing Organization Address [facility]/ZIP Co de Phone Number [facility] [place] [address] * aPTT (09/22/2017 12:50 AM CDT) [facility] aPTT 26.4 25.0 - 37.0 sec [facility] Comment: Interpretive Data Therapeutic heparin range:60.0 - 94.0 sec based on correlation with therapeutic heparin activity range of 0.3 -0.7 Units/mL. Current interpretive data was last revised on 2011. Blood specimen (specimen) 09/22/2017 12:50 AM CDT 09/22/2017 12:55 AM CDT Narrative [facility] - 09/22/2017 1:21 AM CDT Cam Harkins MD LAB BLOOD ORDERABLE S Final Result [facility] [place] [address] * (ABNORMAL) CBC without differential (09/22/2017 12:50 AM CDT) [facility] WBC 12.4(H) 3.8 - 9.9 K/cumm [facility] RBC 4.12(L) 4.30 - 5.80 M/cumm [facility] Hgb 10.4(L) 13.0 - 17.5 g/dL [facility] Hct 34.6(L) 38.9 - 50.3 % [facility] MCV 84.0 81.3 - 96.4 fL [facility] MCH 25.2(L) 27.1 - 33.3 pg [facility] MCHC 30.1(L) 32.3 - 35.7 g/dL [facility] RDW CV 17.4(H) 11.1 - 14.9 % [facility] RDW SD 53.4(H) 35.7 - 48.1 fL [facility] NRBC abs 0.00 0.00 - 0.01 K/cumm [facility] Plt 286 150 - 400 K/cumm [facility] MPV 11.7 9.1 - 12.3 fL [facility] Blood specimen (specimen) 09/22/2017 12:50 AM CDT 09/22/2017 12:59 AM CDT Narrative [facility] - 09/22/2017 1:06 AM CDT us Cam Harkins MD LAB BLOOD ORDERABLE S Final Result Performing Organization Address [facility] Co de Phone Number [facility] [place] [address] * Glucose POC (09/22/2017 12:47 AM CDT) Glucose, POC 108 70 - 199 mg/dL [facility] Blood specimen (specimen) 09/22/2017 12:47 AM CDT 09/22/2017 12:47 AM CDT Narrative [facility] - 09/22/2017 12:48 AM CDT us Notinfile Unknown POINT OF CARE TEST ORDERABLES Final Result Performing Organization Address [facility] [place] [address] documented in this encounter Visit Diagnoses Not on filedocumented in this encounter Care Teams Pediatric Assistant Relationship Specialty Start Date End Date Jessica Kurtz NP [address] [place] [id number] PCP - General 07/21/17 10/07/19 documented as of this encounter
--- OUTSIDE RECORDS SUMMARY | 2024-05-22 05:54 | XMS_ITS | Encounter Summary ---
Author Organization [facility] Healthcare Address [address] [place] [address] Care Team Providers Care Keyboard Instrument Repairer Name Role Phone Jessica Kurtz NP Primary Care Provider [phone] Encounter Details Date Type Department Care Team (Latest Contact Info) Description 07/21/2017 9:02 PM REMEDY DEVELOPER - 07/22/2017 1:19 AM REMEDY DEVELOPER Hospital Encounter [facility] Emergency Department [address] [place] [address] [place] [address] [place] [address] Discharge Disposition: Discharge to a short term hospital for IP Social History Tobacco Use Types Packs/Day Years Used Date Smoking Tobacco: Never Alcohol Use Standard Drinks/Week Comments No 0 (1 standard drink = 0.6 oz pur e alcohol) Sex and Gender Information Value Date Recorded Sex Assigned at Not on file Legal Sex 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 REMEDY DEVELOPER Gender Identity Not on file Sexual Orientation [...] Disposition Code Departure Means Destination Discharge to a short term hospital for IP documented in this encounter Plan of Treatment Not on file documented as of this encounter Procedures Procedure Name Priority Date/Time Associated Diagnosis Comments XR CHEST 1 VIEW Routine 07/22/2017 3:18 AM REMEDY DEVELOPER DISCHARGE LABORATORY CUMULATIVE REPORT 07/22/2017 12:00 AM REMEDY DEVELOPER APTT STAT 07/21/2017 11:00 PM REMEDY DEVELOPER PROTIME-INR STAT 07/21/2017 11:00 PM REMEDY DEVELOPER EGFR STAT 07/21/2017 9:30 PM REMEDY DEVELOPER DIFFERENTIAL AUTO STAT 07/21/2017 9:3 0 PM REMEDY DEVELOPER CBC WITH AUTO DIFFERENTIAL STAT 07/21/2017 9:30 PM REMEDY DEVELOPER TROPONIN T STAT 07/21/2017 9:30 PM REMEDY DEVELOPER COMPREHENSIVE METABOLIC PANEL STAT 07/21/2017 9:30 PM REMEDY DEVELOPER documented in this encounter Results * XR Chest 1 Vw (07/22/2017 3:18 AM REMEDY DEVELOPER) Anatomical Region Laterality Modality Body, Chest N/A Radiographic Maribel ging 07/22/2017 3:18 AM REMEDY DEVELOPER Narrative 07/22/2017 2:20 PM REMEDY DEVELOPER JC BAKER M.D. JIMMY MARIE M.D. FINAL REPORT The radiology attending physician has personally reviewed this study, and has reviewed and/or edited this written report and agrees with it. ACC# ??Date Time ??Exam [id number] Jul 21, 2017 21:18:00 [id number] Chest 1 view Frontal EXAMINATION: ??1 view chest radiograph IMPRESSION: ??Comparison to 07/27/2006. Blunting of the left costophrenic angle could be due to combination of small posteriorly layering left pleural effusion and atelectasis. Mild bibasilar atelectasis. ??No focal pneumonic consolidation. ??There is minimal pulmonary vascular redistribution, no samantha pulmonary edema. ??No pneumothorax. There is mild to moderate cardiomegaly, unchanged. Electronically signed by: Jc Baker M.D. Requested By: STAR CEDENO M.D. Dictated By: ?? JIMMY MARIE M.D. ??on Jul ??2017 ??8:18A This document has been electronically signed by: JC BAKER M.D. on Jul ??2017 ??8:18A [id number] GRAFF M.D. FINAL REPORT The radiology attending physician has personally reviewed this study, and has reviewed and/or edited this written report and agrees with it. Attending: ??PAO, ??STAR Requesting: ??PAO, ??STAR Requesting Fax: ?? Attending Fax: ?? Attending ID: ??[id number] Requesting ID: ??[id number] Report To 1 ID: ??[id number] ? Report To 1 Name: ??, ?? Report To 1 FAX: ?? NextGen Order #: ?? Procedure Note Miscellaneous, Not In File - 07/22/2017 Akua GRAFF M.D. FINAL REPORT The radiology attending physician has personally reviewed this study, and has reviewed and/or edited this written report and agrees with it. ACC# Date Time Exam [id number] Jul 21, 2017 21:18:00 [id number] Chest 1 view Frontal EXAMINATION: 1 view chest radiograph IMPRESSION: Comparison to 07/27/2006. Blunting of the left costophrenic angle could be due to combination of small posteriorly layering left pleural effusion and atelectasis. Mild bibasilar atelectasis. No focal pneumonic consolidation. There is minimal pulmonary vascular redistribution, no samantha pulmonary edema. No pneumothorax. There is mild to moderate cardiomegaly, unchanged. Electronically signed by: Jc Baker M.D. Requested By: STAR CEDENO M.D. Dictated By: JIMMY MARIE M.D. on Jul 22 2017 8:18A This document has been electronically signed by: JC BAKER M.D. on Jul 22 2017 8:18A [id number] MINAYA M.D. FINAL REPORT The radiology attending physician has personally reviewed this study, and has reviewed and/or edited this written report and agrees with it. Attending: STAR CEDENO Requesting: STAR CEDENO Requesting Fax: Attending Fax: Attending ID: [id number] Requesting ID: [id number] Report To 1 ID: [id number] Report To 1 Name: , Report To 1 FAX: NextGen Order #: Star Cedeno MD IMG XR PROCEDURES Final Result * DISCHARGE LABORATORY CUMULATIVE REPORT (07/22/2017 12:00 AM REMEDY DEVELOPER) Narrative 07/22/2017 12:00 AM REMEDY DEVELOPER Ordered by an unspecified provider. Historical Provider LAB BLOOD ORDERABLES Greer l Result * aPTT (07/21/2017 11:00 PM REMEDY DEVELOPER) aPTT 31.0 24.0 - 36.1 sec YO CRAFT Comment: Interpretive Data Heparin Therapeutic Range aPTT: ??60 - 100 seconds. Current interpretive data was last revised on 2014. Blood specimen (specimen) 07/21/2017 11:00 PM REMEDY DEVELOPER 07/21/2017 11:25 PM REMEDY DEVELOPER Narrative YO CRAFT - 07/21/2017 11:32 PM REMEDY DEVELOPER Star Cedeno MD LAB BLOOD ORDERABLES Final Res ult [facility] [address] Department of [employer] [place] [phone] * Protime-INR (07/21/2017 11:00 PM REMEDY DEVELOPER) PT 13.6 11.5 - 14.0 sec YO CRAFT INR 1.1 0.9 - 1.1 YO CRAFT Comment: Interpretive Data ORTHOPEDIC Total Hip and Knee Arthroplasty ?1.8 to 2.6 Hip Fracture ? 1.8 to 2.6 CARDIOLOGY Atrial Fibrillation ?2.0 to 3.0 Cardiomyopathy ? 2.0 to 3.0 Myocardial Infarction ?2.0 to 3.0 Bioprosthetic Heart Valve ?2.0 to 3.0 Mechanical Valve Replacement ? 2.[address] [place] Mechanical Aortic Valve ? 2.0 to 3.0 TREATMENT OF VENOUS THRMBOSIS Deep Vein Thrombosis ? 2.0 to 3.0 Pulmonary Embolism ? 2.0 to 3.0 Current interpretive data was last revised on 2014. Blood specimen (specimen) 07/21/2017 11:00 PM REMEDY DEVELOPER 07/21/2017 11:25 PM REMEDY DEVELOPER Narrative SPRINGKARAN LUANA - 07/21/2017 11:31 PM REMEDY DEVELOPER us Star Cedeno MD LAB BLOOD ORDERABLES Final Res ult [facility] [address] Department [place] [address] * Troponin T (07/21/2017 9:30 PM REMEDY DEVELOPER) Troponin T <0.01 0.00 - 0.01 ng/mL YO CRAFT Comment: Reference data. NOTE: Serial measurements are recommended according to ? the 3rd [place] Definition of M.I. <0.02 ng/mL ? No Measurable cardiac damage 0.02 - 0.09 ng/mL ?? Indeterminate, May indicate risk, ? requires further evaluation ? (Ref. Beth Baker et al: AM J Med. 2003: ?115:178-184) >=0.10 ng/mL ? Positive, 0.10 ng/mL is the World Health ? Organization diagnosis point for ? Acute M.I.: >=0.30 ng/mL is High ? probablility of Acute M.I. [facility] implemented the immunoassay for the quantitative determination of Troponin T (replacing the troponin I assay). Please note the interpretive guidelines noted with patient results. A cardiac Troponin T level >0.10 ng/mL or greater indicates myocardial damage and increased risk. Shirley should be used in conjunction with history, patient symptoms, and ECG changes. Serial measurements are important to assess the possibility of myocardial infarction. Other non-acute coronary syndrome conditions including tachycardia, coronary vasospasm, congestive heart failure, myocarditis, pulmonary embolus, renal failure, and sepsis could result in myocardial damage and persistent low level increase in Troponin levels. An increased level of Shirley in patients with kidney disease is indicative of heart damage and can identify renal patients who are at greater risk for cardiovascular morbidity and mortality. Contact process laboratory specialist for further assistance. Current reference data was last reviewed on 02/19/15. Blood specimen (specimen) 07/21/2017 9:30 PM REMEDY DEVELOPER 07/21/2017 9:37 PM REMEDY DEVELOPER Narrative YO CRAFT - 07/21/2017 10:02 PM REMEDY DEVELOPER us Star Cedeno MD LAB BLOOD ORDERABLES Final Res ult [facility] [address] [facility] Department [place] [address] * eGFR (07/21/2017 9:30 PM REMEDY DEVELOPER) eGFR >60 mL/min/1.7 3 m2 YO CRAFT Comment: Interpretive Data Reference Interval Normal ?>/= 90 mL/min/1.73m2 Mildly decreased* ? 60 - 89 mL/min/1.73m2 Mildly to moderately decreased ?45 - 59 mL/min/1.73m2 Moderately to severely decreased ??30 - 44 mL/min/1.73m2 Severely decreased ?15 - 29 mL/min/1.73m2 Kidney Failure ?< 15 ??mL/min/1.73m2 *Relative to young adult level If -Ugand[place] multiply value by 1.16. Estimated glomerular filtration rate is determined by [...] 70. Current interpretive data was last reviewed 2015. Blood specimen (specimen) 07/21/2017 9:30 PM REMEDY DEVELOPER 07/21/2017 9:37 PM REMEDY DEVELOPER Narrative YO SHIRLEYCH - 07/21/2017 10:00 PM REMEDY DEVELOPER us Star Cedeno MD LAB BLOOD ORDERABLES Final Res ult [facility] [address] [facility] Department [place] [address] * (ABNORMAL) Comprehensive metabolic panel (07/21/2017 9:30 PM REMEDY DEVELOPER) Sodium 139 135 - 145 mmol/L [facility] Potassium, pl 4.1 3.3 - 4.9 mmol/L [facility] CO2 25 22 - 32 mmol/L [facility] BUN 20 8 - 25 mg/dL [facility] Glucose 101 70 - 199 mg/dL [facility] Comment: [...] interpretive data was last revised 2017. Creatinine 1.10 0.80 - 1.30 mg/dL [facility] Calcium 8.7 8.5 - 10.3 mg/dL [facility] Chloride 102 97 - 110 mmol/L [facility] Albumin 3.3(L) 3.5 - 5.0 g/dL [facility] AST 22 10 - 50 Units/L [facility] ALT 17 7 - 55 Units/L [facility] Alk phos 72 40 - 130 Units/L [facility] Bilirubin, total 0.3 0.1 - 1.2 mg/dL [facility] Protein, pl 7.9 6.5 - 8.5 g/dL [facility] Anion gap 12 2 - 15 mmol/L [facility] Blood specimen (specimen) 07/21/2017 9:30 PM REMEDY DEVELOPER 07/21/2017 9:37 PM REMEDY DEVELOPER Narrative YO CRAFT - 07/21/2017 10:00 PM REMEDY DEVELOPER us Star Cedeno MD LAB BLOOD ORDERABLES Final Res ult Performing Organization Address [facility] Co de Phone Number YO CRAFT [address] [facility] of [employer] [place], [place] [id number] * (ABNORMAL) Differential, auto (07/21/2017 9:30 PM REMEDY DEVELOPER) Neutrophil pct 64.6 % [facility] Imm gran pct 0.3 % [facility] Lymphocyte pct 24.3 % [facility] Monocyte pct 6.7 % [facility] Eosinophil pct 3.7 % [facility] Basophil pct 0.4 % [facility] Neutrophil abs 8.12(H) 1.70 - 6.50 K/cumm [facility] Imm gran abs 0.04 0.00 - 0.10 K/cumm [facility] Lymphocyte abs 3.06 0.80 - 3.30 K/cumm [facility] Monocyte abs 0.84(H) 0.20 - 0.80 K/cumm [facility] Eosinophil abs 0.46 0.00 - 0.50 K/cumm [facility] Basophil abs 0.05 0.00 - 0.10 K/cumm [facility] Blood specimen (specimen) 07/21/2017 9:30 PM REMEDY DEVELOPER 07/21/2017 9:37 PM REMEDY DEVELOPER Narrative YO RCAFT - 07/21/2017 9:39 PM REMEDY DEVELOPER us Star Cedeno MD LAB BLOOD ORDERABLES Final Res ult Performing Organization Address [facility]/ZIP Co de Phone Number YO CRAFT [address] [facility] [employer] [place], [place] [phone] * (ABNORMAL) CBC with auto differential (07/21/2017 9:30 PM REMEDY DEVELOPER) WBC 12.6(H) 3.8 - 9.9 K/cumm [facility] RBC 4.22(L) 4.30 - 5.80 M/cumm [facility] Hgb 10.5(L) 13.0 - 17.5 g/dL [facility] Hct 35.3(L) 38.9 - 50.3 % [facility] MCV 83.6 81.3 - 96.4 fL [facility] MCH 24.9(L) 27.1 - 33.3 pg [facility] MCHC 29.7(L) 32.3 - 35.7 g/dL [facility] RDW CV 16.7(H) 11.1 - 14.9 % [facility] RDW SD 51.0(H) 35.7 - 48.1 fL [facility] Plt 300 150 - 400 K/cumm [facility] MPV 11.9 9.1 - 12.3 fL [facility] NRBC abs 0.00 0.00 - 0.01 K/cumm [facility] Blood specimen (specimen) 07/21/2017 9:30 PM REMEDY DEVELOPER 07/21/2017 9:37 PM REMEDY DEVELOPER Narrative [facility] - 07/21/2017 9:39 PM REMEDY DEVELOPER us Star Cedeno MD LAB BLOOD ORDERABLES Final Res ult Performing Organization Address City/State/[facility] Co de Phone Number [facility] [address] [facility] Department [place] [address] documented in this encounter Visit Diagnoses Not on filedocumented in this encounter Care Teams Keyboard Instrument Repairer Relationship Specialty Start Date End Date Jessica Kurtz NP [address] [place] [address] PCP - General 07/21/17 10/07/19 documented as of this encounter
--- OUTSIDE RECORDS SUMMARY | 2024-05-22 05:54 | XMS_ITS | Encounter Summary ---
Author Organization [facility] Healthcare Address [address] [place] [address] Care Team Providers Care Jewelry Designer Name Role Phone Jessica Kurtz NP Primary Care Provider [phone] Encounter Details Date Type Department Care Team (Late st Contact Info) Description 08/31/2017 2:28 PM CDT - 08/31/2017 11:59 PM CDT Hospital Encounter [facility] [phone] Suzette Rogers MD [address] [facility] [address] [place] [address] Discharge Disposition: Discharge to home or self care Social History Tobacco Use Types Packs/Day Years Used Date Smoking Tobacco: Never Alcohol Use Standard Drinks/Week Comments No 0 (1 standard drink = 0.6 oz pur e alcohol) Sex and Gender Information Value Date Recorded Sex Assigned at Not on file Legal Sex 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 DATA CENTER OPERATOR Gender Identity Not on file Sexual Orientation Not on file documented as of this encounter Last Filed Vital Signs Vital Sign Reading Time Taken Comments Blood Pressure - - Pulse - - Temperature - - Respiratory Rate - - Oxygen Saturation - - Inhaled Oxygen Concentration - - Weight 159.4 kg (351 lb 7.7 oz) 08/31/2017 3:23 PM CDT Height 188 cm (6' 2 ) 08/31/2017 3:23 PM CDT Body Mass Index 45.13 08/31/2017 3:23 PM CDT documented in this encounter Medications [...] Priority Date/Time Associated Diagnosis Comments URINE CULTURE RTNm 08/31/2017 4:35 PM CDT CBC WITHOUT DIFFERENTIAL After X-Ray 08/31/2017 4:00 PM CDT BASIC METABOLIC PANEL After X-Ray 08/31/2017 4:00 PM CDT DISCHARGE LABORATORY CUMULATIVE REPORT 08/31/2017 12:00 AM CDT documented in this encounter Results * Urine culture (08/31/2017 4:35 PM CDT) Report Final Report: Insignificant growth based on current clinical standards. [facility] Urine, clean voided 08/31/2017 4:35 PM CDT 08/31/2017 5:06 PM CDT Narrative YO COR[facility] - 09/01/2017 11:00 AM CDT us Richa Fitzpatrick LAB MICROBIOLOGY - GENERAL HERNANDEZ SAL Final Result YO [facility] [place] [address] * (ABNORMAL) Basic metabolic panel (08/31/2017 4:00 PM CDT) Pathologist [facility] Sodium 143 135 - 145 mmol/L [facility] Potassium, pl 5.1(H) 3.3 - 4.9 mmol/L [facility] Chloride 106 97 - 110 mmol/L [facility] CO2 32 22 - 32 mmol/L [facility] BUN 23 8 - 25 mg/dL [facility] Glucose 91 70 - 199 mg/dL [facility] Comment: Interpretive Data Fasting glucose >/= [...] interpretive data was last revised 2017. Creatinine 1.26 0.80 - 1.30 mg/dL [facility] Calcium 8.8 8.5 - 10.3 mg/dL [facility] Anion gap 5 2 - 15 mmol/L [facility] Blood specimen (specimen) 08/31/2017 4:00 PM CDT 08/31/2017 4:59 PM CDT Narrative [facility] - 08/31/2017 5:27 PM CDT us Richa Fitzpatrick LAB BLOOD ORDERABLES Final [facility]u lt [facility] Department [place] [address] * (ABNORMAL) CBC without differential (08/31/2017 4:00 PM CDT) WBC 10.9(H) 3.8 - 9.9 K/cumm [facility] RBC 4.23(L) 4.30 - 5.80 M/cumm [facility] Hgb 10.7(L) 13.0 - 17.5 g/dL [facility] Hct 35.1(L) 38.9 - 50.3 % [facility] MCV 83.0 81.3 - 96.4 fL [facility] MCH 25.3(L) 27.1 - 33.3 pg [facility] MCHC 30.5(L) 32.3 - 35.7 g/dL [facility] RDW CV 17.0(H) 11.1 - 14.9 % [facility] RDW SD 51.4(H) 35.7 - 48.1 fL [facility] NRBC abs 0.00 0.00 - 0.01 K/cumm [facility] Plt 303 150 - 400 K/cumm [facility] MPV 11.4 9.1 - 12.3 fL [facility] Blood specimen (specimen) 08/31/2017 4:00 PM CDT 08/31/2017 4:59 PM CDT Narrative [facility] - 08/31/2017 5:09 PM CDT us Richa Fitzpatrick LAB BLOOD ORDERABLES Final Resu lt [facility] [place] [address] * DISCHARGE LABORATORY CUMULATIVE REPORT (08/31/2017 12:00 AM CDT) Narrative 08/31/2017 12:00 AM CDT Ordered by an unspecified provider. us Historical Provider LAB BLOOD ORDERABLES Greer l Result documented in this encounter Visit Diagnoses Not on filedocumented in this encounter Care Teams Jewelry Designer Relationship Specialty Start Date End Date Jessica Kurtz NP [address] [place] [address] PCP - General 07/21/17 10/07/19 documented as of this encounter
--- OUTSIDE RECORDS SUMMARY | 2024-05-22 05:54 | XMS_ITS | Encounter Summary ---
Author Organization [facility] Healthcare Address [address] [place] [address] Care Team Providers Care Farm Laborer Name Role Phone Jessica Kurtz NP Primary Care Provider [phone] Encounter Details Date Type Department Care Team (Late st Contact Info) Description 09/07/2017 7:29 AM CDT - 09/09/2017 12:25 PM CDT Hospital Encounter [facility] OP INTERIM [phone] Isai Martinez MD [address] [facility] [address] [place], [place] [id number] Discharge Disposition: Discharge to home or self care Social History Tobacco Use Types Packs/Day Years Used Date Smoking Tobacco: Never Alcohol Use Standard Drinks/Week Comments No 0 (1 standard drink = 0.6 oz pur e alcohol) Sex and Gender Information Value Date Recorded Sex Assigned at Not on file 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 Gender Identity Not on file Sexual Orientation Not on file documented as of this encounter Last Filed Vital Signs Vital Sign Reading Time Taken Comments Blood Pressure 130/64 09/09/2017 9:07 AM CDT Pulse 83 09/09/2017 9:07 AM CDT Temperature - - Respiratory Rate - - Oxygen Saturation 92% 09/09/2017 9:07 AM CDT Inhaled Oxygen Concentration - - Weight 159.2 kg (350 lb 15.9 oz) 09/07/2017 3:06 PM CDT Height 188 cm (6' 2 ) 09/07/2017 3:06 PM CDT Body Mass Index 45.07 09/07/2017 3:06 PM CDT documented in this encounter Discharge Summaries * Miscellaneous, Not In File - 09/09/2017 5:00 AM CDT [facility] Patient: SANDY DELANEY Account: [id number] Room No: 1458-B : 1965 Admit Date: 09/07/2017 Attending: ISAI MARTINEZ MD Disch. Date: 09/09/2017 Dictating: JUSTIN BROWN MD Patient Type: SDS DISCHARGE SUMMARY DISCHARGE DIAGNOSIS Stress urinary incontinence. PROCEDURE PERFORMED Artificial urinary sphincter placement. HISTORY OF PRESENT ILLNESS Mr. 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 The patient, therefore, presents for artificial urinary sphincter placement. HOSPITAL COURSE Mr. Delaney underwent an artificial urinary sphincter placement on September 07, 2017. The patient tolerated the procedure well and there were no complications. On postop, he was admitted to the Urology floor where he was advanced on diet. On postop day 1, Avila catheter was removed and patient was allowed to void. However, on Avila catheter removal, there was noted to be bloody urine. A hemoglobin was performed that showed a hemoglobin of 9.5 and a creatinine of 1.3. Throughout the day, the patient was continuing to receive IV fluids as well as increasing oral hydration in order to flush out his urine. By the end of the day, the patient was voiding much better with pink to clear urine; however, he was having significant dysuria. By postop day 2, dysuria improved significantly and urine was clear; therefore, the patient was deemed ready for discharge. He was ambulating and tolerating a regular diet without any nausea or vomiting. CONDITION ON DISCHARGE Stable. MEDICATION ON DISCHARGE 1. Bactrim. 2. Percocet. Colace. 3. Pyridium. FOLLOW-UP PLAN Patient will follow up in 6 weeks with activation of his artificial urinary sphincter. Electronically Authenticated and Edited by: Ericka Martinez MD On 09/26/2017 02:10 PM CDT ISAI MARTINEZ MD Dictated by: JUSTIN BROWN MD BP/ams TD: 09/13/2017 22:07 CC: ISAI MARTINEZ MD documented in this encounter Medications at Time [...] or self care documented in this encounter Miscellaneous Notes * Op Note - Provider, MD Krysta - 09/07/2017 12:00 AM CDT [facility] Patient: SANDY DELANEY Account: [id number] Room No: 1458-B : 1965 Proc. Date: 09/07/2017 Surgeon: ISAI MARTINEZ MD Admit Date: 09/07/2017 Disch. Date: 09/09/2017 Patient Type: SDS OPERATIVE REPORT SURGEON Isai Martinez MD TROUBLE TRACER Justin Brown MD PREOPERATIVE DIAGNOSIS Male stress urinary incontinence, intrinsic sphincteric deficiency. POSTOPERATIVE DIAGNOSIS Male stress urinary incontinence, intrinsic sphincteric deficiency. PROCEDURE Placement artificial urinary sphincter and cystoscopy. ANESTHESIA General anesthesia. COMPLICATIONS None. SPECIMEN None. ESTIMATED BLOOD LOSS Less than 50 mL. 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 He is here for artificial urinary sphincter placement. The risks and benefits of the artificial urinary sphincter have been discussed with the patient. The risks include but are not limited to incomplete resolution of the stress urinary incontinence, recurrent or persistent stress incontinence, incomplete bladder emptying, urinary retention, frequency, urgency of the urination, mechanical failure of the device, infection of the device, urethral atrophy that would require further revision or removal or revision of the procedure. The risks and benefits have been discussed with the patient. He consented to proceed. DETAILS OF SURGERY Patient identified in the preoperative area. He started 1 g of vancomycin and 3 g of Unasyn 1 hour prior to beginning of procedure. He was then shaved, prepped and draped in standard surgical fashion. We used 2 ChloraPrep's on all the skin area perineal, scrotal and penis area prior to making incision. A 12 coude catheter was placed inside the bladder. We then made a perineal incision 2 to 3 cm distal to the turn of the perineum, and dissection was then carried down until we could visualize and palpate the urethra. The urethra was opened in the midline sharply using the Metzenbaum scissors. We then dissected carefully around the left and on the right side of the urethra, it from the corpus cavernosum. This was done carefully so that we did not back-wall or injure the urethra. We were able to bluntly dissect and create a space between the bulbous cavernosum and spongiosum. We were then able to pass a right angle hugging the spongiosum and pass it straight horizontally to come out through the other lumen. We then passed a Vesseloop behind the urethra. With that in place, we removed the Avila and performed cystoscopy on the patient. There was no evidence of a urethral injury. At this point, we put the Avila catheter back in. We then enlarged the incision to approximately 3 cm wide and put a measuring tape behind the urethra. We then performed cystoscopy again, and there was no urethral injury or back-walling or thinning of the urethra. After that had been done, we put a Avila catheter inside the bladder. We measured the size of the cuff. The patient would accommodate a 4.0 cm cuff pretty well. A 4.5 was too large and 3.0 way too small on the patient. We then asked the shipping services sales representative to prep the 4.0 cm artificial urinary sphincter cuff with normal saline. We also filled the pressure-regulating balloon and prepped the pump using normal saline. We made a midline suprapubic incision above the pubic symphysis. Dissection was then carried down until we reached the rectus fascia in the midline. The rectus was then incised. Using a [place], we then grabbed onto the fascia and then opened the midline by doing a muscle-splitting technique behind the rectus muscle. We then developed a space in the space of Retzius below the muscle and above the bladder, where we created a space for the artificial urinary sphincter pressure-regulating balloon. There was no bleeding during this portion of the case. All the spaces were then irrigated with a irrigant antibiotic solution. We also created a right anterior scrotal subdartos pouch. Because patient had a very large and redundant scrotum that was far away from his suprapubic incision, we did make a counterincision in the right pre-scrotal area to ease the development of that scrotal pouch for dissection. After the anterior subdartos pouch had been created, we then dropped the pump in there through the pre-scrotal incision and then pulled the tubing back to the suprapubic incision. We irrigated the entire tract with antibiotic solution. Next, we passed a 4.0 cm cuff around the urethra and passed it back to the retropubic area. We filled the pressure-regulating balloon with 22 mL of normal saline. Next, we irrigated all the tubing. We then connected all the tubing using the quick connect kit. The artificial urinary sphincter cycled very normally when we visualized it in the perineal incision. It opened and closed properly. We then locked the artificial urinary sphincter in a deactivated position. After that had been done, we irrigated all the incisions with ample amount of normal saline containing antibiotic solution. We then closed all the incisions very carefully using absorbable sutures in multiple layers. This was being done carefully so as not to linden any of the tubing. We also closed the pre-scrotal incision in 2 layers, 1 layer with the dartos with 3-0 Vicryl and the 2nd layer with 4-0 Monocryl in the skin. Urine was draining now clear. The artificial urinary sphincter remained deactivated at the end of the case. All counts were correct at the conclusion of the case. PRESENCE STATEMENT Dr. Isai Martinez was present for the procedure. Electronically Authenticated by: Ericka Martinez MD On 09/26/2017 02:10 PM CDT ISAI MARTINEZ MD HL/ams TD: 09/14/2017 20:21 documented in this encounter Plan of Treatment Not on file documented as of this encounter Procedures Procedure Name Priority Date/Time Associated Diagnosis Comments DISCHARGE LABORATORY CUMULATIVE REPORT 09/09/2017 12:00 AM CDT EGFR Routine 09/08/2017 3:56 AM CDT DIFFERENTIAL AUTO Routine 09/08/2017 3:5 6 AM CDT CBC WITH AUTO DIFFERENTIAL Routine 09/08/2017 3:56 AM CDT BASIC METABOLIC PANEL Routine 09/08/2017 3:56 AM CDT POC ISTAT Routine 09/07/2017 8:26 AM CDT documented in this encounter Results * DISCHARGE LABORATORY CUMULATIVE REPORT (09/09/2017 12:00 AM CDT) Narrative 09/09/2017 12:00 AM CDT Ordered by an unspecified provider. us Historical Provider LAB BLOOD ORDERABLES Greer l Result * eGFR (09/08/2017 3:56 AM CDT) eGFR >60 mL/min/1.7 3 m2 [facility] Comment: Interpretive Data Reference Interval Normal ?>/= 90 mL/min/1.73m2 Mildly decreased* ? 60 - 89 mL/min/1.73m2 Mildly to moderately decreased ?45 - 59 mL/min/1.73m2 Moderately to severely decreased ??30 - 44 mL/min/1.73m2 Severely decreased ?15 - 29 mL/min/1.73m2 Kidney Failure ?< 15 ??mL/min/1.73m2 *Relative to young adult level If -Iranian multiply value by 1.16. Estimated glomerular filtration [...] was last reviewed 2015. Blood specimen (specimen) 09/08/2017 3:56 AM CDT 09/08/2017 4:57 AM CDT Narrative [facility] - 09/08/2017 5:25 AM CDT us Justin Brown MD LAB BLOOD ORDERABLES Final Resu lt [facility] [address] [facility]. Department [place] [address] * (ABNORMAL) Basic metabolic panel (09/08/2017 3:56 AM CDT) Sodium 142 135 - 145 mmol/L [facility] Potassium, pl 4.0 3.3 - 4.9 mmol/L [facility] Chloride 105 97 - 110 mmol/L [facility] CO2 28 22 - 32 mmol/L [facility] BUN 21 8 - 25 mg/dL [facility] Glucose 101 70 - 199 mg/dL [facility] Comment: Interpretive Data Fasting glucose >/= [...] interpretive data was last revised 2017. Creatinine 1.30 0.80 - 1.30 mg/dL [facility] Calcium 7.7(L) 8.5 - 10.3 mg/dL [facility] Anion gap 9 2 - 15 mmol/L [facility] Blood specimen (specimen) 09/08/2017 3:56 AM CDT 09/08/2017 4:57 AM CDT Narrative [facility] - 09/08/2017 5:25 AM CDT us Justin Brown MD LAB BLOOD ORDERABLES Final Resu lt [facility] [address] [facility]. Department [place] [address] * (ABNORMAL) Differential, auto (09/08/2017 3:56 AM CDT) Pathologist [facility] Neutrophil pct 64.8 % [facility] Imm gran pct 0.3 % [facility] Lymphocyte pct 22.2 % [facility] Monocyte pct 7.8 % [facility] Eosinophil pct 4.6 % [facility] Basophil pct 0.3 % [facility] Neutrophil abs 6.64(H) 1.70 - 6.50 K/cumm [facility] Imm gran abs 0.03 0.00 - 0.10 K/cumm [facility] Lymphocyte abs 2.27 0.80 - 3.30 K/cumm [facility] Monocyte abs 0.80 0.20 - 0.80 K/cumm [facility] Eosinophil abs 0.47 0.00 - 0.50 K/cumm [facility] Basophil abs 0.03 0.00 - 0.10 K/cumm [facility] Blood specimen (specimen) 09/08/2017 3:56 AM CDT 09/08/2017 4:57 AM CDT Narrative [facility] - 09/08/2017 5:17 AM CDT Justin Brown MD LAB BLOOD ORDERABLES Final Resu lt [facility] [address] [facility]. Department [place] [address] * (ABNORMAL) CBC with auto differential (09/08/2017 3:56 AM CDT) Pathologist [facility] WBC 10.2(H) 3.8 - 9.9 K/cumm [facility] RBC 3.75(L) 4.30 - 5.80 M/cumm [facility] Hgb 9.5(L) 13.0 - 17.5 g/dL [facility] Hct 32.2(L) 38.9 - 50.3 % [facility] MCV 85.9 81.3 - 96.4 fL [facility] MCH 25.3(L) 27.1 - 33.3 pg [facility] MCHC 29.5(L) 32.3 - 35.7 g/dL [facility] RDW CV 17.3(H) 11.1 - 14.9 % [facility] RDW SD 54.4(H) 35.7 - 48.[address] [facility] Plt 249 150 - 400 K/cumm [facility] MPV 12.1 9.1 - 12.[address] [facility] NRBC abs 0.00 0.00 - 0.01 K/cumm [facility] Blood specimen (specimen) 09/08/2017 3:56 AM CDT 09/08/2017 4:57 AM CDT Narrative [facility] - 09/08/2017 5:17 AM CDT us Justin Brown MD LAB BLOOD ORDERABLES Final Resu lt Performing Organization Address [facility] Co de Phone Number [facility] [address] [address] [facility] [place] [address] * Flu Test (A or B), POC (09/07/2017 8:26 AM CDT) Hct, POC 35 39.0 - 52.0 % [facility] Hgb, POC 11.9 g/dL [facility] Comment: Interpretive data. No reference ranges established. The Hemoglobin is a calculated value based on the measured Hematocrit. Current interpretive data last reviewed 2015. K POC 4.5 3.5 - 4.5 mmol/L [facility] Blood specimen (specimen) 09/07/2017 8:26 AM CDT 09/07/2017 8:26 AM CDT Narrative [facility] - 09/07/2017 8:39 AM CDT Isai Martinez MD LAB BLOOD ORDERABLES Final Res ult Performing Organization Address [facility] Co de Phone Number [facility] [address] [address] [facility] [place] [address] documented in this encounter Visit Diagnoses Not on filedocumented in this encounter Care Teams Farm Laborer Relationship Specialty Start Date End Date Jessica Kurtz NP [address] [place] [address] PCP - General 07/21/17 10/07/19 documented as of this encounter
--- OUTSIDE RECORDS SUMMARY | 2024-05-22 05:54 | XMS_ITS | Encounter Summary ---
Author Organization [facility] Address [address] [place] [address] Phone Care Team Providers Care Cnc Mill Programmer Name Role Phone Natasha Bates Primary Care Provider [phone] Reason for Visit * Consultation (Routine) - Closed Specialty Diagnoses / Procedures Referred By Malena sagastume Referred To Contact Urology Diagnoses Scrotal swelling Natasha Bates PA [address] [place] [address] Phone: tel: fax: Suzette Rogers MD [address] [facility] [address] [place] [address] Phone: tel: fax: Referral ID Status Reason Start Date Expiration Date V isits Requested Visits Authorized [id number] Closed Specialty Services Required 10/08/2019 04/18/[phone] Encounter Details Date Type Department Care Team (Late st Contact Info) Description 10/23/2019 2:20 PM CDT Telemedicine [facility] Urology [facility] Building [address] [place] [id number] Suzette Rogers MD [address] [facility] [address] [place] [address] Scrotal swelling Social History Tobacco Use Types Packs/Day Years Used Date Smoking Tobacco: Never Alcohol Use Standard Drinks/Week Comments No 0 (1 standard drink = 0.6 oz pur e alcohol) Sex and Gender Information Value Date Recorded Sex Assigned at Not on file 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 male with an artificial urinary sphincter in place for his male stress urinary incontinence. He said for the past week or so he has intermittent scrotal swelling, he said there is some scrotal pain as well as some pain and tenderness around the pump. This was worse last week now he is back to his usual. His AUS is still working, helping him about 80% of the time. He doesnotice some worsening stress urinary incontinence recently compared to immediate after the surgery when he said it was working 95% of the time. He has an episode of gross hematuria recently, did not get a urine culture, he suspect he may have a urinary tract infections. He is going to the lab laterthis week to get a urine specimen as well as a metabolic panel. I think it would be marina for me to get a urine culture at the same time to rule out UTI. He still able to use the pump is able to urinate on his own. But I also think I need to check out his artificial urinary sphincter. Assessment and Plan: Scrotal swelling Tenderness in the scrotum Increasing urinary incontinence Has an artificial urinary sphincter in place Dysuria 1. We will send patient to the lab for a urine culture to rule out UTI given the dysuria and scrotal swelling 2. I urged the patient to see me either this week or next week so I could check of his artificial urinary sphincter and also do a scrotal examination on the patient. He said for the past related symptoms is improved, he is very busy this week, but she he agrees to see me next week in the office. Ifthe pain gets worse he can go to the emergency room or urgent care. Telemedicine Statement: This was a telemedicine visit with Howie Delaney alone which took place via Telephone. During the visit, I was located at [facility] Office and the patient was located Home. The session started at 3:00 pm and ended at 3:21 pm. The patient has been informed that the visit may not be secure and acknowledged the information. I have explained the option of participating in a telephone or video visit during the COVID-19 public health emergency to the patient. After being given an opportunity to ask questions about and discuss this type of visit, the patient verbally consented to proceeding with the telephone / video visit. The patient understands that this service replaces an office visit and they may be billed and/or responsible for any applicable copayments. Linda Rogers MD television repairer (Urology) Division of Urologic Surgery [facility] Office [phone] 10/23/2019 3:19 PM documented in this encounter Plan of Treatment Not on file documented as of this encounter Visit Diagnoses Diagnosis Scrotal swelling Edema of male genital organs documented in this encounter Orders Outpatient Referral Count Last Ordered Date Fir st Ordered Date AMB REFERRAL TO UROLOGY 1 10/23/2019 documented in this encounter Care Teams Cnc Mill Programmer Relationship Specialty [place] [address] [place] [id number] PCP - General Physician Prescriptionist 10/08/19 documented as of this encounter
--- OUTSIDE RECORDS SUMMARY | 2024-05-22 05:54 | XMS_ITS | Encounter Summary ---
Author Organization [facility] Address [address] [place] [address] Phone Care Team Providers Care Pattern Maker Programer Name Role Phone Natasha Bates Primary Care Provider [phone] Encounter Details Date Type Department Care Team (Late st Contact Info) Description 10/23/2019 Orders Only [facility] Urology [address] [facility] Building [address] [place] [address] Suzette Rogers MD [address] [facility] [address] [place] [address] Urinary incontinence, unspecified type (Primary Dx) Social History Tobacco Use Types Packs/Day Years Used Date Smoking Tobacco: Never Alcohol Use Standard Drinks/Week Comments No 0 (1 standard drink = 0.6 oz pur e alcohol) Sex and Gender Information Value Date Recorded Sex Assigned at Not on file 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 Gender Identity Not on file Sexual Orientation Not on file documented as of this encounter Plan of Treatment Not on file documented as of this encounter Procedures Procedure Name Priority Date/Time Associated Diagnosis Comments URINE CULTURE Routine 10/30/2019 1:50 PM CDT Urinary incontinence, unspecified type documented in this encounter Results * (ABNORMAL) Urine culture Urine, clean voided (10/30/2019 1:50 PM CDT) Urine culture Final report(A) [facility] - Result 1 Enterococcus faecalis(A) [facility] - Comment: 10,000-25,000 colony forming units per mL Note: this isolate is vancomycin-susceptible. This information is provided for epidemiologic purposes only: vancomycin is not among the antibiotics recommended for therapy of urinary tract infections caused by Enterococcus. For Enterococcus species, aminoglycosides (except for high-level resistance screening), cephalosporins, clindamycin, and trimethoprim-sulfamethoxazole are not effective clinically. (CLSI, F818-V61, 2016) Antimicrobial Susceptibility Comment [facility] - Comment: ? S = Susceptible; I = Intermediate; R = Resistant ? P = Positive; N = Negative ?MICS are expressed in micrograms per mL ?? Antibiotic ? RSLT#1 ?RSLT#2 ?RSLT#3 ?RSLT#4 Ciprofloxacin ?S Levofloxacin ? S Nitrofurantoin ? S Penicillin ? S Tetracycline ? R Vancomycin ? S Urine, clean voided 10/30/2019 1:50 PM CDT 10/30/2019 Comment:BILL Silva [facility] - 11/01/2019 5:11 PM CDT Performed at: ??01 - [facility] [address], [place], [place] ??[id number] Clay Pigeon Setter: Mane Sanchez PhD, Phone: ??[phone] us Suzette Rogers MD LAB MICROBIOLOGY - GENERAL ORD ERABLES Final Result [facility] - 01 documented in this encounter Visit Diagnoses Diagnosis Urinary incontinence, unspecified type- Primary documented in this encounter Care Teams Pattern Maker Programer Relationship Specialty [place] [address] [place] [address] PCP - General Physician Battery Container Inspector 10/08/19 documented as of this encounter
--- OUTSIDE RECORDS SUMMARY | 2024-05-22 05:54 | XMS_ITS | Encounter Summary ---
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 Phone Unavailable Primary Care Provider Unavailabl e Encounter Details Date Type Department Care Team (Latest Contact Info) Description 12/30/2014 5:43 PM CDT Hospital Encounter [facility] Christopher Diop MD [address] [address] Proteinuria; Chronic kidney disease Social History Tobacco Use Types Packs/Day Years Used Date Smoking Tobacco: Never Assessed Sex and Gender Information Value Date Recorded Sex Assigned at Not on file Legal Sex 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 [employer] Gender Identity Not on file Sexual Orientation Not on file documented as of this encounter Plan of Treatment Not on file documented as of this encounter Procedures Procedure Name Priority Date/Time Associated Diagnosis Comments SCAN - LABS 12/31/2014 12:00 AM CDT C4 COMPLEMENT Routine 12/30/2014 5:56 PM CDT IRON PROFILE W/ IBC Routine 12/30/2014 5 :56 PM CDT CBC WITH AUTO DIFFERENTIAL Routine 12/30/2014 5:56 PM CDT VANESSA REFLEX TO QUANTITATIVE Routine 12/30/2014 5:56 PM CDT HEPATITIS B CORE IGM Routine 12/30/2014 5:56 PM CDT HEPATITIS B SURFACE ANTIGEN Routine 12/30/2014 5:56 PM CDT COMPLEMENT, TOTAL Routine 12/30/2014 5: 56 PM CDT C3 COMPLEMENT Routine 12/30/2014 5:56 PM CDT PROTEIN ELECTROPHORESIS, WITH REFLEX, SERUM Routine 12/30/2014 5:56 PM CDT PTH Routine 12/30/2014 5:56 PM CDT FERRITIN Routine 12/30/2014 5:56 PM CDT RENAL FUNCTION PANEL Routine 12/30/2014 5:56 PM CDT URINALYSIS AND REFLEX TO MICROSCOPIC AND CULTURE Routine 12/30/2014 5:45 PM CDT ALBUMIN, RANDOM URINE WITHOUT CREATININE Routine 12/30/2014 5:45 PM CDT documented in this encounter Results * SCAN - LABS (12/31/2014 12:00 AM CDT) Narrative 12/31/2014 12:00 AM CDT Ordered by an unspecified provider. us Historical Provider Final Res ult * Complement, total (12/30/2014 5:56 PM CDT) Tot Complement (CH50) 132 60 - 144 Units 01/02/2015 8:19 PM CDT [facility] HISTORICAL RESULTS Comment: INTERPRETIVE INFORMATION: Complement Activity, Total EIA ?59 ??Units or less .......... Low ?60-144 ?? Units .............. Normal ?145 Units or greater ....... High ?? Performed by [facility], ?? [address] [address] ?? [email or web address], Mehran Mathews MD, Lab. Director ?? 12/30/2014 5:56 PM CDT 12/30/2014 6:20 PM CDT Christopher Diop MD LAB BLOOD ORDERABLES Final Result Performing Organization Address [facility] de Phone Number [facility] HISTORICAL RESULTS * C3 complement (12/30/2014 5:56 PM CDT) Complement C3 131 88 - 201 mg/dL 01/02/2015 9:37 AM CDT [facility] HISTORICAL RESULTS Comment: REFERENCE INTERVAL: Complement Component 3 ?? Access complete set of age- and/or gender-specific ?? reference intervals for this test in the [facility] ?? Test Directory ([facility]quee[facility]). ?? Performed by [facility], ?? [address] [address] ?? [email or web address], Mehran Mathews MD, Lab. Director ?? 12/30/2014 5:56 PM CDT 12/30/2014 6:20 PM CDT us Christopher Diop MD LAB BLOOD ORDERABLES Final Result Performing Organization Address [facility] Phone Number [facility] HISTORICAL RESULTS * C4 complement (12/30/2014 5:56 PM CDT) Complement C4 33 10 - 40 mg/dL 01/02/2015 9:37 AM CDT [facility] Comment: REFERENCE INTERVAL: Complement Component 4 ?? Access complete set of age- and/or gender-specific ?? reference intervals for this test in the [facility] ?? Test Directory ([facility]quee[facility]M). ?? Performed by [facility], ?? [address] [address] ?? [email or web address], Mehran Mathews MD, Lab. Director ?? 12/30/2014 5:56 PM CDT 12/30/2014 6:20 PM CDT us Christopher Diop MD LAB BLOOD ORDERABLES Final Result Performing Organization Address [facility] de Phone Number [facility] HISTORICAL RESULTS * VANESSA reflex to quantitative (12/30/2014 5:56 PM CDT) Pathologist [facility] VANESSA Screen None Detected None Detected 01/02/2015 7:16 AM CDT [facility] HISTORICAL RESULTS Comment: No antibodies to Anti-Nuclear Antibodies (VANESSA) detected. No ?? further testing will be performed. ?? INTERPRETIVE INFORMATION: Anti-Nuclear Antibodies (VANESSA), ?? IgG by MARY ?? VANESSA specimens are screened using enzyme-linked ?? immunosorbent assay (MARY) methodology. All MARY results ?? reported as Detected are further tested by indirect ?? fluorescent assay (IFA) using HEp-2 substrate with an ?? IgG-specific conjugate. The VANESSA MARY screen is designed to ?? detect antibodies against dsDNA, histone, SS-A (Ro), SS-B ?? (La), Solis, snRNP/Sm, Scl-70, Faviola-1, centromere, and an ?? extract of lysed HEp-2 cells. VANESSA MARY assays have been ?? reported to have lower sensitivities for antibodies ?? associated with nucleolar and speckled VANESSA-IFA patterns. ?? Performed by [facility], ?? [address] [place] [id number] ?? [email or web address], Mehran Mathews MD, Lab. Director ?? 12/30/2014 5:56 PM CDT 12/30/2014 6:20 PM CDT Christopher Diop MD LAB BLOOD ORDERABLES Final Result Performing Organization Address [facility] de Phone Number [facility] HISTORICAL RESULTS * (ABNORMAL) CBC with auto differential (12/30/2014 5:56 PM CDT) Pathologist [facility] WBC 11.9(H) 4.6 - 10.2 x10 3/ul 12/30/2014 6:29 PM CDT [facility] HISTORICAL RESULTS RBC 3.69(L) 4.11 - 5.71 x10 6/ul 12/30/2014 6:29 PM CDT [facility] HISTORICAL RESULTS Hemoglobin 9.9(L) 13.0 - 17.0 g/dl 12/30/2014 6:29 PM CDT [facility] HISTORICAL RESULTS Hct 32.4(L) 38.2 - 48.5 % 12/30/2014 6:29 PM CDT [facility] HISTORICAL RESULTS MCV 87.8 80.0 - 97.0 fl 12/30/2014 6:29 PM CDT [facility] HISTORICAL RESULTS MCH 26.8(L) 27.0 - 31.2 pg 12/30/2014 6:29 PM CDT [facility] HISTORICAL RESULTS MCHC 30.6(L) 31.8 - 35.4 g/dl 12/30/2014 6:29 PM T [facility] HISTORICAL RESULTS RDW 15.8(H) 11.6 - 14.8 % 12/30/2014 6:29 PM T [facility] HISTORICAL RESULTS Plt Count 382 124 - 400 x10 3/ul 12/30/2014 6:29 PM T [facility] HISTORICAL RESULTS MPV 11.4(H) 7.4 - 10.4 fl Differential Method AUTOMATED DIFF --------- -- Neut % 61.8 37.0 - 85.0 % 12/30/2014 6:29 PM CDT [facility] HISTORICAL RESULTS Immature Gran % 0.3 0.0 - 3.0 % 12/30/2014 6:29 PM CDT [facility] HISTORICAL RESULTS Lymph % 26.1 5.0 - 45.0 % 12/30/2014 6:29 PM CDT [facility] HISTORICAL RESULTS Fajardo % 6.8 3.0 - 15.0 % 12/30/2014 6:29 PM CDT [facility] HISTORICAL RESULTS Eos % 4.2 0.0 - 7.0 % 12/30/2014 6:29 PM CDT [facility] HISTORICAL RESULTS Baso % 0.8 0.0 - 2.0 % 12/30/2014 6:29 PM T [facility] HISTORICAL RESULTS ABSOLUTE COUNTS ABSOLUTE COUNTS --------- -- 12/30/2014 6:29 PM T [facility] HISTORICAL RESULTS Absolute Neuts (auto) 7.4 1.7 - 8.7 x10 3/ul 12/30/2014 6:29 PM T [facility] HISTORICAL RESULTS Immature Gran # 0.0 0.0 - 0.3 x10 3/ul 12/30/2014 6:29 PM T [facility] HISTORICAL RESULTS Absolute Lymphs (auto) 3.1 0.2 - 4.6 x10 3/ul 12/30/2014 6:29 PM T [facility] HISTORICAL RESULTS Absolute Monos (auto) 0.8 0.1 - 1.5 x10 3/ul 12/30/2014 6:29 PM T [facility] HISTORICAL RESULTS Absolute Eos (auto) 0.5 0.0 - 0.7 x10 3/ul 12/30/2014 6:29 PM T [facility] HISTORICAL RESULTS Absolute Basos (auto) 0.1 0.0 - 0.2 x10 3/ul 12/30/2014 6:29 PM T [facility] HISTORICAL RESULTS 12/30/2014 5:56 PM CDT 12/30/2014 6:20 PM CDT us Christopher Diop MD LAB BLOOD ORDERABLES Final Result [facility] HISTORICAL RESULTS * Protein Electrophoresis, With Reflex, Serum (12/30/2014 5:56 PM CDT) Total Protein 7.8 6.4 - 8.3 g/dL 12/30/2014 6:46 PM CDT [facility] HISTORICAL RESULTS Prot Electrophoresis 12/31/2014 12:57 PM T [facility] HISTORICAL RESULTS Comment: PATHOLOGIST COMMENT: ?? No paraproteins identified ?? Please see scanned result in the patient's EMR 12/30/2014 5:56 PM CDT 12/30/2014 6:20 PM CDT Christopher Diop MD LAB BLOOD ORDERABLES Final Result Performing Organization Address [facility] Number [facility] HISTORICAL RESULTS * Hepatitis B core antibody, IgM (12/30/2014 5:56 PM CDT) Hep B core IgM NONREACT NONREACTIVE 5 7:32 PM CDT [facility] HISTORICAL RESULTS Comment: Siemens CentaurXP using CHUCKY (chemiluminescent immunoassay) technology. NONREACTIVE: IgM antibodies to Hepatitis B Core antigen not detected. EQUIVOCAL: IgM antibodies to Hepatitis B Core antigen may or may not be present. Obtain a ??new specimen and retest. REACTIVE: IgM antibodies to Hepatitis B Core antigen detected. 12/30/2014 5:56 PM CDT 12/30/2014 6:20 PM CDT Christopher Diop MD LAB MICROBIOLOGY - GENERAL ORDERABLES Final Result Performing Organization Address [facility] Number [facility] HISTORICAL RESULTS * Hepatitis B Surface Antigen (12/30/2014 5:56 PM CDT) HepBsAg NONREACT NONREACTIVE 12/30/2014 7:04 PM CDT [facility] HISTORICAL RESULTS Comment: Siemens CentaurXP using CHUCKY (chemiluminescent immunoassay) technology. NONREACTIVE: IgM antibodies to Hepatitis B Surface antigen not detected. REACTIVE: IgM antibodies to Hepatitis B Surface antigen detected. Reactive results will be confirmed by neutralization testing. 12/30/2014 5:56 PM CDT 12/30/2014 6:20 PM CDT Christopher Diop MD LAB MICROBIOLOGY - GENERAL ORDERABLES Final Result Performing Organization Address [facility] Phone Number [facility] HISTORICAL RESULTS * PTH, intact (12/30/2014 5:56 PM CDT) PTH Intact 16 15 - 65 pg/mL 12/30/2014 6:47 PM CDT [facility] HISTORICAL RESULTS 12/30/2014 5:56 PM CDT 12/30/2014 6:20 PM CDT us Christopher Diop MD LAB BLOOD ORDERABLES Final Result Performing Organization Address [facility] Co de Phone Number [facility] HISTORICAL RESULTS * Ferritin (12/30/2014 5:56 PM CDT) Ferritin 159.0 30.0 - 400.0 ng/mL 12/30/2014 6:56 PM CDT [facility] HISTORICAL RESULTS 12/30/2014 5:56 PM CDT 12/30/2014 6:20 PM CDT us Christopher iDop MD LAB BLOOD ORDERABLES Final Result Performing Organization Address [facility] Number [facility] HISTORICAL RESULTS * (ABNORMAL) Iron profile w/ IBC (12/30/2014 5:56 PM CDT) Iron 31(L) 59 - 158 ug/dL 12/30/2014 6:46 PM CDT [facility] HISTORICAL RESULTS Comment:Fasting specimen pre ferred TIBC 209(L) 228 - 428 ug/dL 12/30/2014 6:46 PM CDT [facility] HISTORICAL RESULTS Transferrin % Sat 15(L) 20 - 50 % 12/30/2014 6:46 PM CDT [facility] HISTORICAL RESULTS 12/30/2014 5:56 PM CDT 12/30/2014 6:20 PM CDT us Christopher Diop MD LAB BLOOD ORDERABLES Final Result Performing Organization Address [facility] Co de Phone Number [facility] HISTORICAL RESULTS * (ABNORMAL) Renal function panel (12/30/2014 5:56 PM CDT) Sodium 134(L) 135 - 145 mmol/L 12/30/2014 6:46 PM CDT [facility] HISTORICAL RESULTS Potassium 4.7 3.3 - 5.1 mmol/L 12/30/2014 6:46 PM CDT [facility] HISTORICAL RESULTS Chloride 96 96 - 108 mmol/L Carbon Dioxide 26 22 - 32 mmol/L Anion Gap 12 7 - 16 Glucose 97 70 - 100 mg/dL BUN 37(H) 6 - 20 mg/dL Creatinine 1.6(H) 0.5 - 1.3 mg/dL Kidney Disease Stage 49 mL/MIN Comment: NOTE; ??The GFR is an estimated value using the creatinine, sex, age, and race of the patient. THE ESTIMATED GFR IS VALIDATED FOR AGES 18-70 YEARS STAGE ?mL/Min ?DESCRIPTION ??1 ?90 mL/min or more ?Normal or elevated GFR ??2 ? 60-89 mL/min ?Mildly decreased GFR ??3 ? 30-59 mL/min ?Moderately decreased GFR ??4 ? 15-29 mL/min ?Severely decreased GFR ??5 ? <15 mL/min ? Kidney failure or on dialysis @ Calcium 9.2 8.6 - 10.0 mg/dL Albumin 3.2(L) 3.5 - 5.2 g/dL Phosphorus 4.1 2.5 - 4.5 mg/dL 12/30/2014 5:56 PM CDT 12/30/2014 6:20 PM CDT us Christopher Diop MD LAB BLOOD ORDERABLES Final Result [facility] HISTORICAL RESULTS * (ABNORMAL) Urinalysis reflex to microscopic and culture (12/30/2014 5:45 PM CDT) Ur Collection Type CLEAN CATCH Ur Culture Indicated? C&S NOT INDICATED Urine Color YELLOW YELLOW Urine Clarity HAZY CLEAR Urine Glucose (UA) NORMAL NORMAL mg/dL Urine Bilirubin NEGATIVE NEGATIVE mg/dl Urine Ketones NEGATIVE NEGATIVE mg/dL Ur Specific [place] 1.014 1.005 - 1.025 Urine Blood NEGATIVE NEGATIVE mg/dl Urine pH 5.0 5.0 - 8.0 Urine Protein 10(H) NEGATIVE mg/dL Urine Urobilinogen NORMAL NORMAL mg/dL Urine Nitrite NEGATIVE NEGATIVE Ur Leukocyte Esterase NEGATIVE NEGATIVE Bib/ul Ur Microscopic Review Indicated or Ordered Urine RBC 1 0 - 2 /HPF 12/30/2014 9:33 PM CDT [facility] HISTORICAL RESULTS Urine WBC 3 0 - 2 /HPF 12/30/2014 9:33 PM T [facility] HISTORICAL RESULTS Ur Squamous Epith Cells Rare /HPF 12/30/2014 9:33 PM T [facility] HISTORICAL RESULTS Hyaline Casts 9 0 - 2 /LPF 12/30/2014 9:33 PM T [facility] HISTORICAL RESULTS 12/30/2014 5:45 PM CDT 12/30/2014 9:20 PM CDT [facility] HISTORICAL RESULTS - 12/30/2014 9:33 PM CDT us Christopher Diop MD LAB MICROBIOLOGY - GENERAL ORDERABLES Final Result Performing Organization Address [facility] Co de Phone Number [facility] HISTORICAL RESULTS * (ABNORMAL) Microalbumin, urine, random (12/30/2014 5:45 PM CDT) Ur Random Creatinine 251.0 mg/dL 12/30/2014 9:51 PM T [facility] HISTORICAL RESULTS Comment: Reference Range First morning urine: Males 39 - 259 mg/dLRandom Specimen: ??No reference ranges U Random Total Protein 18(H) 0 - 12 mg/dL 12/30/2014 9:51 PM T [facility] HISTORICAL RESULTS Ur Random Microalbumin 31.0(H) 0.0 - 19.9 mg/L 12/30/2014 9:51 PM T [facility] HISTORICAL RESULTS Comment: [place] [employer] Guidelines Microalbuminuria: 30-300 ug albumin /mg creatinine Clinical Albuminuria: >300 ug albumin /mg creatinine Microalb/Creat Ratio 12.4 0.0 - 19.9 ug/mg 12/30/2014 9:51 PM T [facility] HISTORICAL RESULTS 12/30/2014 5:45 PM CDT 12/30/2014 9:20 PM CDT [facility] HISTORICAL RESULTS - 12/30/2014 9:51 PM CDT us Christopher Diop MD LAB URINE ORDERABLES Final Result [facility] HISTORICAL RESULTS documented in this encounter Visit Diagnoses Diagnosis Proteinuria Chronic kidney disease Chronic kidney disease, unspecified documented in this encounter
--- OUTSIDE RECORDS SUMMARY | 2024-05-22 05:54 | XMS_ITS | Encounter Summary ---
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 Phone Unavailable Primary Care Provider Unavailabl e Encounter Details Date Type Department Care Team (Latest Contact Info) Description 12/25/2014 12:34 PM CDT Hospital Encounter [facility] Christopher Diop MD [address] [address] Chronic kidney disease; Proteinuria Social History Tobacco Use Types Packs/Day Years Used Date Smoking Tobacco: Never Assessed Sex and Gender Information Value Date Recorded Sex Assigned at Not on file Legal Sex 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 THIS IS AN ELECTRONICALLY VERIFIED REPORT 12/25/2014 1:26 PM: ??Bob Lowe M.D. Bob Lowe M.D. NH:rik 01:26 PM 01:26 PM [facility] [EOD] Narrative 12/25/2014 1:29 PM CDT EXAMINATION: ??Renal ultrasound HISTORY: ??Unspecified chronic kidney disease, proteinuria. TECHNIQUE: ??Killian-scale and color Doppler ultrasound evaluation of the kidneys and urinary bladder. FINDINGS: ??No comparison. ??Right kidney measured 12.2 cm in length with normal cortical echogenicity and thickness. ??Left kidney measured 12.9 cm in length with normal cortical echogenicity and thickness. ??No hydronephrosis. ??No focal renal lesion. ??Urinary bladder is unremarkable. ??Both ureteral jets were demonstrated on color Doppler imaging. Procedure Note Provider, MD Krysta - 10/07/2020 EXAMINATION: Renal ultrasound HISTORY: Unspecified chronic kidney disease, proteinuria. TECHNIQUE: Killian-scale and color Doppler ultrasound evaluation of thekidneys and urinary bladder. FINDINGS: No comparison. Right kidney measured 12.2 cm in length withnormal cortical echogenicity and thickness. Left kidney measured 12.9 cm inlength with normal cortical echogenicity and thickness. No hydronephrosis. Nofocal renal lesion. Urinary bladder is unremarkable. Both ureteral jets were demonstrated on color Doppler imaging. IMPRESSION: Unremarkable renal ultrasound. THIS IS AN ELECTRONICALLY VERIFIED REPORT 12/25/2014 1:26 PM: Bob Lowe M.D. Bob Lowe M.D. NH:rik 01:26 PM 01:26 PM [facility] [EOD] us Christopher Diop MD IMG US PROCEDURES Final Re sult documented in this encounter Visit Diagnoses Diagnosis Chronic kidney disease Chronic kidney disease, unspecified Proteinuria documented in this encounter
--- OUTSIDE RECORDS SUMMARY | 2024-05-22 05:54 | XMS_ITS | Encounter Summary ---
Author Organization [facility] Healthcare Address [address] [place] [address] In Teller Name Role Phone Jessica Kurtz NP Primary Care Provider [phone] Reason for Visit * Reason Comments Chest Pain Encounter Details Date Type Department Care Team (Late st Contact Info) Description 07/22/2017 1:26 AM CARD READER - 07/22/2017 6:55 PM CARD READER Emergency [facility] [address] [place] [address] Camilo Hodges DO [address] [place], [place] [id number] Srinivasa Jordan MD [address] [facility] [place], [place] [id number] Agusto Lee MD [address] [place], [place] [id number] Chest pain, unspecified type (Primary Dx) Discharge Disposition: Discharge to home or self care Social History Tobacco Use Types Packs/Day Years Used Date Smoking Tobacco: Never Alcohol Use Standard Drinks/Week Comments No 0 (1 standard drink = 0.6 oz pur e alcohol) Sex and Gender Information Value Date Recorded Sex Assigned at Not on file Legal Sex 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 CARD READER Gender Identity Not on file Sexual Orientation Not on file documented as of this encounter Last Filed Vital Signs Vital Sign Reading Time Taken Comments Blood Pressure 113/58 07/22/2017 2:45 PM CARD READER Pulse 71 07/22/2017 3:00 PM CARD READER Temperature 36.6 ??C (97.9 ??F) 07/22/2017 2:45 PM CS T Respiratory Rate 18 07/22/2017 2:45 PM CARD READER Oxygen Saturation 95% 07/22/2017 2:45 PM CARD READER Inhaled Oxygen Concentration - - Weight 161.8 kg (356 lb 11.3 oz) 07/22/2017 4:30 AM CARD READER Height 188 cm (6' 2 ) 07/22/2017 4:30 AM CARD READER Body Mass Index 45.8 07/22/2017 4:30 AM CARD READER documented in this encounter Discharge Summaries * Aby Robles, MARY - 07/22/2017 3:19 PM CST Admit & Discharge SUBJECTIVE Patient is a 51 y.o. male with chief complaint of chest pain. HPI: This is a 51 y/o male with history of obesity, HTN, HLD, and coronary spasms who presented to ED for evaluation of chest pain. For past 3 days he has noticed increasing shortness of breath with exertion. 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 No associated shortness of breath. These symptoms were similar to an episode approx 10 years ago and at that time the patient went for cath which was reportedly unremarkable. He was diagnosed with coronary angiospasms at that time. He presented to OSH last night and there was initially concern for unstable angina so he was started on heparin gtt and transferred here for further evaluation. This am, he had recurrence of his chest pain. This time he felt like someone was literally squeezing his heart. It was located in center of chest and radiated to his left arm again. He was clinically stable, no troponin elevation or EKG change. He was seen in consultation by cardiology and underwent stress test which was also unremarkable. Exact cause unclear. Could be coronary spasm but also at least in part musculoskeletal. In addition, he reports significant increased stress lately both at work and regarding his health. Past Medical History: Diagnosis Date ??? Angiospasm (CMS/HCC) ??? Hypercholesterolemia No past surgical history on file. Prescriptions Prior to Admission Medication Sig Dispense Refill Last Dose ??? amitriptyline (ELAVIL) 25 mg tablet Take 25 mg by mouth nightly. ??? furosemide (LASIX) 20 mg tablet Take 20 mg by mouth daily. ??? isosorbide mononitrate ER (IMDUR) 30 mg 24 hr tablet Take 30 mg by mouth daily. ??? metoprolol XL (TOPROL-XL) 50 mg 24 hr tablet Take 50 mg by mouth daily. ??? multivitamin tablet Take 1 tablet by mouth daily. ??? pravastatin (PRAVACHOL) 20 mg tablet Take 20 mg by mouth nightly. ??? tamsulosin (FLOMAX) 0.4 mg extended release capsule 0.4 mg nightly. No Known Allergies Social History Substance Use Topics ??? Smoking status: Never Smoker ??? Smokeless tobacco: Not on file ??? Alcohol use No No family history on file. Review of Systems: Review of Systems Constitutional: Negative for chills and fatigue. Respiratory: Positive for shortness of breath. Negative for cough. Cardiovascular: Positive for chest pain and leg swelling. Negative for palpitations. Chronic leg swelling Gastrointestinal: Negative for abdominal pain, diarrhea and nausea. Genitourinary: Negative for dysuria and hematuria. Incontinence, not new Musculoskeletal: Negative for arthralgias and myalgias. Skin: Negative for rash and wound. Neurological: Negative for dizziness and light-headedness. OBJECTIVE Vitals: Arrival Vitals Temp 07/22/17 0130 36.6 ??C (97.8 ??F) Pulse 07/22/17 0130 92 Resp 07/22/17 0130 20 BP 07/22/17 0145 125/70 SpO2 07/22/17 0130 97 % Temp src 07/22/17 0130 Oral Heart Rate Source -- Patient Position -- BP Location 07/22/17 0425 Right arm FiO2 (%) -- 24hr Min/Max: Temp Min: 36.4 ??C (97.5 ??F) Max: 36.6 ??C (97.9 ??F) Pulse Min: 69 Max: 92 BP Min: 103/60 Max: 135/81 Resp Min: 18 Max: 20 SpO2 Min: 93 % Max: 97 % Most Recent : Vitals: 07/22/17 1500 BP: Pulse: 71 Resp: Temp: SpO2: No intake/output data recorded. I/O this shift: In: 60 [I.V.:60] Out: - Physical exam: Physical Exam Constitutional: He is oriented to person, place, and time. He appears well- developed and well-nourished. HENT: Head: Normocephalic and atraumatic. Mouth/Throat: Oropharynx is clear and moist. Eyes: Conjunctivae and EOM are normal. Pupils are equal, round, and reactive to light. No scleral icterus. Neck: Normal range of motion. Cardiovascular: Normal rate, regular rhythm and normal heart sounds. Left chest wall tenderness Pulmonary/Chest: Effort normal and breath sounds normal. No respiratory distress. Abdominal: Soft. Bowel sounds are normal. Musculoskeletal: Normal range of motion. He exhibits edema. Neurological: He is alert and oriented to person, place, and time. Skin: Skin is warm and dry. Psychiatric: He has a normal mood and affect. His behavior is normal. Vitals reviewed. Lab/Radiology/Diagnostic Review: Xr Chest 1 Vw Result Date: 07/22/2017 Narrative: JC BAKER M.D. JIMMY MARIE M.D. FINAL REPORT The radiology attending physician has personally reviewed this study, and has reviewed and/or edited this written report and agrees withit. [facility]# Date Time Exam [id number] Jul 21, 2017 21:18:00 [id number] Chest 1 view Frontal EXAMINATION: 1 view [...] signed by: Jc Baker M.D. Requested By: NAHUN CEDENO M.D. Dictated By: JIMMY MARIE M.D. on Jul 22 2017 8:18A This document has been electronically signed by: JC BAKER M.D. on Jul 22 2017 8:18A [id number] BAKER M.D. JIMMY MARIE M.D. FINAL REPORT The radiology attending physician has personally reviewed this study, and has reviewed and/or edited this writtenreport and agrees with it. Attending: NAHUN CEDENO Requesting: NAHUN CEDENO Requesting Fax: Attending Fax: Attending ID: [id number] Requesting ID: [id number] Report To 1 ID: [id number] ReportTo 1 Name: , Report To 1 FAX: [employer] Order #: Nm Mpi Spect (rest And/or Stress) Multiple Studies Result Date: 07/22/2017 Narrative: Myocardial imaging (rest/stress/SPECT/gated images with ejection fraction calculation) HISTORY: Chest pain. FINDINGS: No prior studies available for correlation. Patient received 8.6mCi technetium 99 Myoview, 25.8mCi technetium 99 Myoview, and Lexiscan. Images limited from obesity. No definite evidence of ischemia or infarction.. Wall motion normal with normal left ventricular ejectionfraction of greater than 70%. Impression: Normal study. Electronically signed by: Eulogio Hood M.D. Recent Results (from the past 24 hour(s)) CBC with auto differential Collection Time: 07/21/17 9:30 PM Result Value Ref Range WBC 12.6 (H) 3.8 - 9.9 K/cumm RBC 4.22 (L) 4.30 - 5.80 M/cumm Hgb 10.5 (L) 13.0 - 17.5 g/dL Hct 35.3 (L) 38.9 - 50.3 % MCV 83.6 81.3 - 96.4 fL MCH 24.9 (L) 27.1 - 33.3 pg MCHC 29.7 (L) 32.3 - 35.7 g/dL RDW CV 16.7 (H) 11.1 - 14.9 % RDW SD 51.0 (H) 35.7 - 48.1 fL Platelets 300 150 - 400 K/cumm MPV 11.9 9.1 - 12.3 fL NRBC Abs 0.00 0.00 - 0.01 K/cumm Differential, auto Collection Time: 07/21/17 9:30 PM Result Value Ref Range Neutrophils 64.6 % Immature granulocytes 0.3 % Lymphocytes 24.3 % Monos 6.7 % Eosinophils 3.7 % Basophils 0.4 % Neutrophil absolute 8.12 (H) 1.70 - 6.50 K/cumm Immature granulocyte, abs 0.04 0.00 - 0.10 K/cumm Lymphocytes, abs 3.06 0.80 - 3.30 K/cumm Monos, abs 0.84 (H) 0.20 - 0.80 K/cumm Eosinophils, abs 0.46 0.00 - 0.50 K/cumm Basophils, abs 0.05 0.00 - 0.10 K/cumm Comprehensive metabolic panel Collection Time: 07/21/17 9:30 PM Result Value Ref Range Sodium 139 135 - 145 mmol/L Potassium 4.1 3.3 - 4.9 mmol/L CO2 25 22 - 32 mmol/L BUN 20 8 - 25 mg/dL Glucose 101 70 - 199 mg/dL Creatinine 1.10 0.80 - 1.30 mg/dL Calcium 8.7 8.5 - 10.3 mg/dL Chloride 102 97 - 110 mmol/L Albumin 3.3 (L) 3.5 - 5.0 g/dL AST 22 10 - 50 Units/L ALT 17 7 - 55 Units/L Alk phos 72 40 - 130 Units/L Bilirubin 0.3 0.1 - 1.2 mg/dL Protein, pl 7.9 6.5 - 8.5 g/dL Anion Gap 12 2 - 15 mmol/L eGFR Collection Time: 07/21/17 9:30 PM Result Value Ref Range GFR >60 mL/min/1.73 m2 Troponin T Collection Time: 07/21/17 9:30 PM Result Value Ref Range Troponin T <0.01 0.00 - 0.01 ng/mL Protime-INR Collection Time: 07/21/17 11:00 PM Result Value Ref Range PT 13.6 11.5 - 14.0 sec INR 1.1 0.9 - 1.1 aPTT Collection Time: 07/21/17 11:00 PM Result Value Ref Range APTT 31.0 24.0 - 36.1 sec aPTT Collection Time: 07/22/17 5:23 AM Result Value Ref Range APTT 29.2 26.0 - 36.0 sec CBC with auto differential Collection Time: 07/22/17 6:53 AM Result Value Ref Range WBC 9.9 3.8 - 9.9 K/cumm RBC 3.96 (L) 4.30 - 5.80 M/cumm Hgb 9.7 (L) 13.0 - 17.5 g/dL Hct 32.4 (L) 38.9 - 50.3 % MCV 81.8 81.3 - 96.4 fL MCH 24.5 (L) 27.1 - 33.3 pg MCHC 29.9 (L) 32.3 - 35.7 g/dL RDW CV 16.7 (H) 11.1 - 14.9 % RDW SD 49.8 (H) 35.7 - 48.1 fL Platelets 275 150 - 400 K/cumm MPV 11.6 9.1 - 12.3 fL NRBC Abs 0.00 0.00 - 0.01 K/cumm Comprehensive metabolic panel Collection Time: 07/22/17 6:53 AM Result Value Ref Range Sodium 143 135 - 145 mmol/L Potassium 4.0 3.3 - 4.9 mmol/L CO2 29 22 - 32 mmol/L BUN 18 8 - 25 mg/dL Glucose 91 70 - 199 mg/dL Creatinine 1.27 0.80 - 1.30 mg/dL Calcium 8.7 8.5 - 10.3 mg/dL Chloride 105 97 - 110 mmol/L Albumin 3.0 (L) 3.5 - 5.0 g/dL AST 16 10 - 50 Units/L ALT 13 7 - 55 Units/L Alk phos 71 40 - 130 Units/L Bilirubin 0.4 0.1 - 1.2 mg/dL Protein, pl 7.0 6.5 - 8.5 g/dL Anion Gap 9 2 - 15 mmol/L Troponin T Collection Time: 07/22/17 6:53 AM Result Value Ref Range Troponin T <0.01 <=0.01 ng/mL Differential, auto Collection Time: 07/22/17 6:53 AM Result Value Ref Range Neutrophils 56.2 44.0 - 80.0 % Immature granulocytes 0.2 0.0 - 1.0 % Lymphocytes 31.2 13.0 - 44.0 % Monos 7.5 2.0 - 11.0 % Eosinophils 4.3 0.0 - 6.0 % Basophils 0.6 0.0 - 3.0 % Neutrophil absolute 5.58 1.70 - 6.50 K/cumm Immature granulocyte, abs 0.02 0.00 - 0.10 K/cumm Lymphocytes, abs 3.10 0.80 - 3.30 K/cumm Monos, abs 0.75 0.20 - 0.80 K/cumm Eosinophils, abs 0.43 0.00 - 0.50 K/cumm Basophils, abs 0.06 0.00 - 0.10 K/cumm eGFR Collection Time: 07/22/17 6:53 AM Result Value Ref Range GFR 65 mL/min/1.73 m2 Hospital Course: Please see above. He was ruled out with troponins and normal stress test. Cause unclear but at least in part musculoskeletal. Assessment /Plan Chest pain -at least in part, musculoskeletal but also history of coronary spasms -troponin, ekg, and stress test unremarkable; will dc home Essential hypertension -continue healthy diet and exercise -continue metoprolol, lasix Hyperlipidemia -continue pravastatin. Primary Discharge Diagnosis: Atypical chest pain with normal stress test, troponin, and ekg Secondary Discharge Diagnosis: Chest pain Hyperlipidemia Essential hypertension Test Results Pending at Discharge: Order Current Status Lipid panel In process Troponin T In process Discharge Details Physical Exam at Discharge: Discharge Condition: good Pulse: 71 Resp: 18 BP: 113/58 Temp: 36.6 ??C (97.9 ??F) Weight: (!) 161.8 kg (356 lb 11.3 oz) Pertinent Exam Findings at Discharge: no change Discharge Disposition: home Code Status at Discharge: full Discharge Instructions: Resume activity as tolerated. Resume home diet. Discharge Medications: CONTINUE these medications which have NOT CHANGED Details amitriptyline (ELAVIL) 25 mg tablet Take 25 mg by mouth nightly. furosemide (LASIX) 20 mg tablet Take 20 mg by mouth daily. isosorbide mononitrate ER (IMDUR) 30 mg 24 hr tablet Take 30 mg by mouth daily. metoprolol XL (TOPROL-XL) 50 mg 24 hr tablet Take 50 mg by mouth daily. multivitamin tablet Take 1 tablet by mouth daily. pravastatin (PRAVACHOL) 20 mg tablet Take 20 mg by mouth nightly. tamsulosin (FLOMAX) 0.4 mg extended release capsule 0.4 mg nightly. Outpatient Follow-Up: F/u with PCP within 1-2 weeks Patient went for chest ct prior to discharge. This was reviewed by Dr Lee and also unremarkable thus the patient was discharged home. Aby Robles NP 07/22/2017 READER documented in this encounter Medications at Time [...] documented in this encounter Progress Notes * Bear Anderson MD - 07/22/2017 3:41 PM CST Daily Progress SUBJECTIVE Chief complaint of chest pain Interval History: I have seen and examined the patient. Agree with Aby. Patient presented with chest pain. Evaluated by Cardiology. Review of Systems OBJECTIVE Vitals: 24hr Min/Max: Temp Min: 36.4 ??C (97.5 ??F) Max: 36.6 ??C (97.9 ??F) Pulse Min: 69 Max: 92 BP Min: 103/60 Max: 135/81 Resp Min: 18 Max: 20 SpO2 Min: 93 % Max: 97 % Most Recent : Vitals: 07/22/17 1500 BP: Pulse: 71 Resp: Temp: SpO2: No intake/output data recorded. I/O this shift: In: 60 [I.V.:60] Out: - Physical Exam: Physical Exam Constitutional: He is oriented to person, place, and time. He appears well- developed and well-nourished. Neck: Normal range of motion. Neck supple. Cardiovascular: Normal rate, regular rhythm and normal heart sounds. Pulmonary/Chest: Effort normal and breath sounds normal. Abdominal: Soft. Bowel sounds are normal. Musculoskeletal: Normal range of motion. Neurological: He is alert and oriented to person, place, and time. Medication List Reviewed Lab/Radiology/Diagnostic Review: Recent Labs Lab Units 07/22/17 0653 WHITE BLOOD CELLS K/cumm 9.9 HEMOGLOBIN g/dL 9.7* HEMATOCRIT % 32.4* PLATELET COUNT K/cumm 275 Recent Labs Lab Units 07/22/17 0653 SODIUM mmol/L 143 POTASSIUM PLASMA mmol/L 4.0 CHLORIDE mmol/L 105 CO2 mmol/L 29 ANIONGAP mmol/L 9 BUN SERUM mg/dL 18 CREATININE mg/dL 1.27 GLUCOSE mg/dL 91 CALCIUM mg/dL 8.7 Radiology results reviewed ASSESSMENT/PLAN Chest pain patient has been ruled out for acute AZ by doing serial cardiac enzymes. His stress testis negative. It is possible he has costochondritis. Will suggest to take anti inflammatory medications. Patient will be discharged today. READER documented in this encounter H&P Notes * Aby Robles NP - 07/22/2017 3:17 PM CST Please see admit/dc note READER documented in this encounter Consult Notes * Ajith Lloyd DO - 07/22/2017 10:57 AM CSTAssociated Order(s): IP CONSULT TO CARDIOLOGY Cardiology Consult Patient Name: Sandy Carr Provider: Gustavo LIRA : 1965 Date of Service: 07/22/2017 CHIEF COMPLAINT: Chest Pain HISTORY: 51 y.o. male with a history of hypertension, hyperlipidemia, and reported angiospasm who presents to [facility] with complaints of chest pain. Patient states that 3 days ago he startednoticing having dyspnea on exertion when he would go up stairs. This is out of the ordinary for him. He then states that yesterday while he was sitting on his desk he started developing left-sided chest pain that radiated to his left arm and hand numbness. This episode lasted between 10 and 20 min and then subsided on its own. He did had more discomfort while he was driving home once again lasting about 10 min. Once he got home he states he laid down on the couch he was feeling fine whenever helaid down he took a nap for about 30 min and then woke up with more discomfort. Due to the recurrence of the chest discomfort he presented to [facility]. On arrival to the emergency room his EKG shows no acute ST-T wave abnormality. His troponins have been negative x3. Currently he is sitting up in the chair without any complaints. Patient does have a history of having chest pain back in 2006. At that time he had ruled out for anMI. He did have a thallium stress test in approximately 5 min after the test he developed chest pain which continued intermittently. He had a nuclear scan which showed a probable anterior apical ischemia. He was taken to the cardiac catheterization lab which showed normal LV function with completely normal coronary arteries. He states he has been doing well since that time. He has had occasional chest discomfort last year for short time that never reoccurred. ALLERGY: Patient has no known allergies. MEDICATIONS amitriptyline 25 mg oral Nightly aspirin 325 mg oral Daily furosemide 20 mg oral Daily metoprolol XL 50 mg oral Daily multivitamin 1 tablet oral Daily nitroglycerin 0.5 inch topical Q6H RUTHANN pravastatin 20 mg oral Nightly tamsulosin 0.4 mg oral Nightly PAST MEDICAL HISTORY Past Medical History: Diagnosis Date ??? Angiospasm (CMS/HCC) ??? Hypercholesterolemia Hypertension FAMILY HISTORY Negative for any premature coronary artery disease. His mother did have an AZ he thinks in her 70s. SOCIAL HISTORY Social History Social History ??? Marital status: Single Spouse name: N/A ??? Number of children: N/A ??? Years of education: N/A Social History Main Topics ??? Smoking status: Never Smoker ??? Smokeless tobacco: Not on file ??? Alcohol use No ??? Drug use: Unknown ??? Sexual activity: Not on file Other Topics Concern ??? Not on file Social History Narrative ??? No narrative on file ROS General: Positive for a 40 lb weight loss over the last year., no fever or chills HEENT: Denies any blurred vision, change in vision or hearing loss. Cardiovascular: Please see HPI. Denies any lightheadedness, dizziness or syncopal episodes. Denies any PND or orthopnea. Respiratory: Positive for recent LUZ, denies any coughing or hemoptysis. Gastrointestinal: Denies any diarrhea, constipation, or hematochezia. Gu: Denies any hematuria or dysuria. Neurological: Denies any TIA, CVA's, or change in cognitive function. Musculoskeletal: Denies any claudication or myalgia's. Endocrine: Denies any sensitivity to heat or cold. Psychiatric: Denies any depression or anxiety. Hematological: Denies any evidence of bleeding or bruising. PHYSICAL EXAM: Vitals: 07/22/17 0930 07/22/17 0935 07/22/17 0945 07/22/17 1005 BP: 119/72 103/60 108/57 115/59 BP Location: Left arm Left arm Left arm Left arm Pulse: 74 Resp: Temp: TempSrc: SpO2: 97% Weight: Height: No intake or output data in the 24 hours ending 07/22/17 1058 General: Well appearing, No pain or distress, well nourished Eyes: ISMALE/EOMI, Conjuctiva Clear ENT: External ears/nose normal Neck: Supple Respiratory: Diminished breath sounds bilaterally. Respirations not labored. Cardiovascular: RRR, normal S1 and S2. No S3 or S4. No murmers or rubs. Carotid upstrokes brisk bilaterally and without bruits. Gastrointestinal: soft, non-tender abdomen Extremities: no cyanosis or clubbing or edema Musculoskeletal: no obvious joint deformities Skin: no obvious rash or bruising Psychiatric: normal affect Neurologic: awake/alert, no focal deficits Lab/Radiology/Diagnostic Review: Recent Results (from the past 36 hour(s)) CBC with auto differential Collection Time: 07/21/17 9:30 PM Result Value Ref Range WBC 12.6 (H) 3.8 - 9.9 K/cumm RBC 4.22 (L) 4.30 - 5.80 M/cumm Hgb 10.5 (L) 13.0 - 17.5 g/dL Hct 35.3 (L) 38.9 - 50.3 % MCV 83.6 81.3 - 96.4 fL MCH 24.9 (L) 27.1 - 33.3 pg MCHC 29.7 (L) 32.3 - 35.7 g/dL RDW CV 16.7 (H) 11.1 - 14.9 % RDW SD 51.0 (H) 35.7 - 48.1 fL Platelets 300 150 - 400 K/cumm MPV 11.9 9.1 - 12.3 fL NRBC Abs 0.00 0.00 - 0.01 K/cumm Differential, auto Collection Time: 07/21/17 9:30 PM Result Value Ref Range Neutrophils 64.6 % Immature granulocytes 0.3 % Lymphocytes 24.3 % Monos 6.7 % Eosinophils 3.7 % Basophils 0.4 % Neutrophil absolute 8.12 (H) 1.70 - 6.50 K/cumm Immature granulocyte, abs 0.04 0.00 - 0.10 K/cumm Lymphocytes, abs 3.06 0.80 - 3.30 K/cumm Monos, abs 0.84 (H) 0.20 - 0.80 K/cumm Eosinophils, abs 0.46 0.00 - 0.50 K/cumm Basophils, abs 0.05 0.00 - 0.10 K/cumm Comprehensive metabolic panel Collection Time: 07/21/17 9:30 PM Result Value Ref Range Sodium 139 135 - 145 mmol/L Potassium 4.1 3.3 - 4.9 mmol/L CO2 25 22 - 32 mmol/L BUN 20 8 - 25 mg/dL Glucose 101 70 - 199 mg/dL Creatinine 1.10 0.80 - 1.30 mg/dL Calcium 8.7 8.5 - 10.3 mg/dL Chloride 102 97 - 110 mmol/L Albumin 3.3 (L) 3.5 - 5.0 g/dL AST 22 10 - 50 Units/L ALT 17 7 - 55 Units/L Alk phos 72 40 - 130 Units/L Bilirubin 0.3 0.1 - 1.2 mg/dL Protein, pl 7.9 6.5 - 8.5 g/dL Anion Gap 12 2 - 15 mmol/L eGFR Collection Time: 07/21/17 9:30 PM Result Value Ref Range GFR >60 mL/min/1.73 m2 Troponin T Collection Time: 07/21/17 9:30 PM Result Value Ref Range Troponin T <0.01 0.00 - 0.01 ng/mL Protime-INR Collection Time: 07/21/17 11:00 PM Result Value Ref Range PT 13.6 11.5 - 14.0 sec INR 1.1 0.9 - 1.1 aPTT Collection Time: 07/21/17 11:00 PM Result Value Ref Range APTT 31.0 24.0 - 36.1 sec aPTT Collection Time: 07/22/17 5:23 AM Result Value Ref Range APTT 29.2 26.0 - 36.0 sec CBC with auto differential Collection Time: 07/22/17 6:53 AM Result Value Ref Range WBC 9.9 3.8 - 9.9 K/cumm RBC 3.96 (L) 4.30 - 5.80 M/cumm Hgb 9.7 (L) 13.0 - 17.5 g/dL Hct 32.4 (L) 38.9 - 50.3 % MCV 81.8 81.3 - 96.4 fL MCH 24.5 (L) 27.1 - 33.3 pg MCHC 29.9 (L) 32.3 - 35.7 g/dL RDW CV 16.7 (H) 11.1 - 14.9 % RDW SD 49.8 (H) 35.7 - 48.1 fL Platelets 275 150 - 400 K/cumm MPV 11.6 9.1 - 12.3 fL NRBC Abs 0.00 0.00 - 0.01 K/cumm Comprehensive metabolic panel Collection Time: 07/22/17 6:53 AM Result Value Ref Range Sodium 143 135 - 145 mmol/L Potassium 4.0 3.3 - 4.9 mmol/L CO2 29 22 - 32 mmol/L BUN 18 8 - 25 mg/dL Glucose 91 70 - 199 mg/dL Creatinine 1.27 0.80 - 1.30 mg/dL Calcium 8.7 8.5 - 10.3 mg/dL Chloride 105 97 - 110 mmol/L Albumin 3.0 (L) 3.5 - 5.0 g/dL AST 16 10 - 50 Units/L ALT 13 7 - 55 Units/L Alk phos 71 40 - 130 Units/L Bilirubin 0.4 0.1 - 1.2 mg/dL Protein, pl 7.0 6.5 - 8.5 g/dL Anion Gap 9 2 - 15 mmol/L Troponin T Collection Time: 07/22/17 6:53 AM Result Value Ref Range Troponin T <0.01 <=0.01 ng/mL Differential, auto Collection Time: 07/22/17 6:53 AM Result Value Ref Range Neutrophils 56.2 44.0 - 80.0 % Immature granulocytes 0.2 0.0 - 1.0 % Lymphocytes 31.2 13.0 - 44.0 % Monos 7.5 2.0 - 11.0 % Eosinophils 4.3 0.0 - 6.0 % Basophils 0.6 0.0 - 3.0 % Neutrophil absolute 5.58 1.70 - 6.50 K/cumm Immature granulocyte, abs 0.02 0.00 - 0.10 K/cumm Lymphocytes, abs 3.10 0.80 - 3.30 K/cumm Monos, abs 0.75 0.20 - 0.80 K/cumm Eosinophils, abs 0.43 0.00 - 0.50 K/cumm Basophils, abs 0.06 0.00 - 0.10 K/cumm eGFR Collection Time: 07/22/17 6:53 AM Result Value Ref Range GFR 65 mL/min/1.73 m2 No results found. Impression/Plan: 1. Chest pain With negative troponins and no acute ischemic EKG changes. His chest pain does not sound typical for angina. Questionable if it could be GI. He does have a possible history of coronary spasm however I do not see this in his chart. Either way would recommend undergoing a stress test. Discussed with patient and will do this today. 2. Dyspnea on exertion New onset of dyspnea on exertion the last couple days. Unclear etiology. Will obtain stress test 3. Hyperlipidemia Continue pravastatin 4. Hypertension Blood pressure well controlled. He takes metoprolol at home. He was on lisinopril which was recently discontinued due to his 40 lb weight loss. His blood pressure has been well controlled on the metoprolol. I personally interviewed and examined the patient and reviewed the case with the mid-level providerdocumenting above. I agree with the assessment and plan with any exceptions noted below. Physical Exam: No apparent distress. Heart RR, Pulses full. Normal strength. Nonfocal. Lungs clear Gustavo Huizar NP READER READER documented in this encounter ED Notes * Falguni Salomon, RN - 07/22/2017 2:04 AM CST Patient c/o sudden onset chest pain that has returned, VSS, NSR on the monitor, no ST elevation noted. Dr. Hodges aware, morphine order received. Nitro paste remains in place. Falguni Salomon 07/22/17 0205 READER * Camilo Hodges DO - 07/22/2017 1:32 AM CST HPI Chief Complaint Patient presents with ??? Chest Pain HPI 51 year old male, with history of angiospasm and hypercholesterolemia, presenting in transfer from [facility] with chest pain. Patient presented to [facility] last night d/t complaintof left-side chest pain, described as a ???sharp pressure?? and rated 4/10 in severity, with radiation down left arm and mouth numbness since 1200 yesterday. +dyspnea on exertion for the past week. No N/V/diaphoresis. Hx of similar symptoms 10 years ago and had negative cath at [facility]. Patient is a non-smoker. Denies family cardiac history. Patient History There are no active problems to display for this patient. Past Medical History: Diagnosis Date ??? Angiospasm (CMS/HCC) ??? Hypercholesterolemia No past surgical history on file. No family history on file. Social History Substance Use Topics ??? Smoking status: Never Smoker ??? Smokeless tobacco: Not on file ??? Alcohol use No Social History Social History Narrative ??? No narrative on file Review of Systems Review of Systems Constitutional: No fever Chest: SEE HPI. Respiratory: SEE HPI. GI: No N/V/D, no abdominal pain All other symptoms negative except as noted above. Physical Exam ED Triage Vitals [07/22/17 0130] Temp Pulse Resp BP SpO2 36.6 ??C (97.8 ??F) 92 20 -- 97 % Temp src Heart Rate Source Patient Position BP Location FiO2 (%) Oral -- -- -- -- Physical Exam Constitutional: He is oriented to person, place, and time. He appears well- developed and well-nourished. No distress. HENT: Head: Normocephalic and atraumatic. Nose: Nose normal. Mouth/Throat: Oropharynx is clear and moist. Eyes: Conjunctivae and EOM are normal. Pupils are equal, round, and reactive to light. Neck: Neck supple. No JVD present. Cardiovascular: Normal rate and regular rhythm. Pulmonary/Chest: Effort normal and breath sounds normal. Abdominal: Soft. Bowel sounds are normal. There is no tenderness. Musculoskeletal: Normal range of motion. He exhibits no tenderness. Neurological: He is alert and oriented to person, place, and time. Skin: Skin is warm and dry. Psychiatric: He has a normal mood and affect. Nursing note and vitals reviewed. ED Course & MDM ED Course as of Jul 23 239TueJul 22, 2017 0144 Merza accepts [KD] ED Course User Index [KD] Laine Chatman [facility] Vitals: 07/22/17 0215 BP: 132/67 Pulse: 83 Resp: Temp: SpO2: 95% Labs Reviewed - No data to display No orders to display Chest pain, unspecified type This note was prepared by Laine Chatman acting as Scribe for Dr. Hodges. I personally performed the services described in this documentation, reviewed and edited the documentation which was dictated to the scribe in my presence, and it accurately records my words and actions. Camilo Hodges DO 07/22/2017 2:40 AM Camilo Hodges DO 07/22/17 0240 READER * Lakesha Teixeira RN - 07/22/2017 1:27 AM CST Bed: ED05 Expected date: 07/22/17 Expected time: 1:21 AM Means of arrival: Comments: EMS Syncopal Lakesha Teixeira RN 07/22/17 0127 READER documented in this encounter Miscellaneous Notes * Plan of Care - Yelena Weathers RN - 07/22/2017 4:01 PM CST Goals: Clinical Goals for the Shift: No chest pain; VSS. End of Shift Summary: Pt currently denies pain, sob. Trops and stress test negative. Possible d/c to home this evening. READER * Assessment & Plan Note - Aby Robles NP - 07/22/2017 3:17 PM CARD READER Associated Problem(s): Hyperlipidemia -continue pravastatin. READER * Assessment & Plan Note - Aby Robles NP - 07/22/2017 3:16 PM CARD READER Associated Problem(s): Essential hypertension -continue healthy diet and exercise -continue metoprolol, lasix READER * Assessment & Plan Note - Aby Robles NP - 07/22/2017 3:13 PM CARD READER Associated Problem(s): Chest pain -at least in part, musculoskeletal but also history of coronary spasms -troponin, ekg, and stress test unremarkable; will dc home READER * Plan of Care - Kina Singh RN - 07/22/2017 9:40 AM CST Evaluated for initial discharge planning needs. High Risk criteria applied: None Identified. Social Service Consult: no. Anticipated Discharge need: no. Note: Will continue to monitor patient???s progress and assess for discharge needs. READER * Plan of Care - Dayanara Ulrich RN - 07/22/2017 5:08 AM CST Goals: Clinical Goals for the Shift: remain pain free End of Shift Summary: Pt admitted with Cp. Currently on heparin gtt. Pt has had no c/o of pain. SR 70s. VSS. Health Behavior: ??? Understanding of discharge needs will improve Progressing ??? Ability to state signs and symptoms to report to health care provider will improve Progressing Lack of Knowledge: ??? Knowledge of diagnostic tests will improve Progressing ??? Knowledge of disease or condition will improve Progressing ??? Knowledge of safety precautions will improve Progressing ??? Knowledge of the prescribed therapeutic regimen will improve Progressing Safety: ??? Ability to remain free from injury will improve Progressing ??? Will remain free from falls Progressing Sensory: ??? Pain level will decrease Progressing ??? Ability to develop a pain control plan will improve Progressing READER * ED Procedure Note - Camilo Hodges DO - 07/22/2017 1:40 AM CARD READER Associated Order(s): ECG 12-LEAD Procedure ECG 12 lead Date/Time: 07/22/2017 1:40 AM Performed by: CAMILO HODGES Authorized by: CAMILO HODGES Comments: NSR at rate of 86. No STEMI. Camilo Hodges DO 07/22/17 0408 READER documented in this encounter Plan of Treatment Not on file documented as of this encounter Procedures Procedure Name Priority Date/Time Associated Diagnosis Comments CT CHEST PE W CONTRAST ED Urgent/IP Urgent 07/22/2017 4:49 PM CARD READER TROPONIN T Timed 07/22/2017 2:55 PM CARD READER LIPID PANEL Routine 07/22/2017 2:55 PM CARD READER NM MPI SPECT (REST AND/OR STRESS) MULTIPLE STUDIES IP Routine 07/22/2017 2:23 PM CARD READER STRESS TEST FOR DUAL READ IP Routine 07/22/2017 2:23 PM CARD READER ECG 12-LEAD STAT 07/22/2017 9:40 AM CARD READER ECG 12-LEAD Routine 07/22/2017 7:22 AM CARD READER EGFR Routine 07/22/2017 6:53 AM CARD READER DIFFERENTIAL AUTO Routine 07/22/2017 6:5 3 AM CARD READER CBC WITH AUTO DIFFERENTIAL Routine 07/22/2017 6:53 AM CARD READER TROPONIN T Timed 07/22/2017 6:53 AM CARD READER COMPREHENSIVE METABOLIC PANEL Routine 07/22/2017 6:53 AM CARD READER APTT Routine 07/22/2017 5:23 AM CARD READER ECG 12-LEAD STAT 07/22/2017 1:33 AM CARD READER DISCHARGE LABORATORY CUMULATIVE REPORT 07/22/2017 12:00 AM CARD READER documented in this encounter Results * CT Chest PE W Contrast (07/22/2017 4:49 PM CARD READER) Anatomical Region Laterality Modality Body N/A Computed Tomogra phy Impressions 07/22/2017 5:43 PM CARD READER 1. ??No evidence of pulmonary embolism. ??Patchy areas of atelectasis within the lungs bilaterally, but otherwise no definite acute intrathoracic abnormality. 2. ??Hazy mesenteric edema within the upper abdomen, only partially visualized. ??Clinical correlation recommended. Electronically signed by: ELIEZER MARSHALL MD Narrative 07/22/2017 5:43 PM CARD READER EXAM: ??CT CHEST WITH CONTRAST UTILIZING PULMONARY EMBOLISM PROTOCOL HISTORY: ??Dyspnea. TECHNIQUE: CT chest was done with contrast after the patient received 120 mL of Optiray 350 intravenously. ??Pulmonary embolism protocol was utilized. COMPARISONS: No relevant priors. FINDINGS: Pulmonary arteries: No definite pulmonary embolus. Pulmonary artery opacification is good. ??Main pulmonary artery normal in caliber. Thyroid: Unremarkable. Heart: Normal heart size without pericardial effusion. No coronary arterial calcification. Aorta and vascular: Unremarkable. Mediastinum and boom: No mass. No adenopathy. Airway: Unremarkable. Lungs/Pleura: There are scattered patchy areas of dependent atelectasis bilaterally but no focal pneumonia or pulmonary edema. No pleural effusion or pneumothorax. Chest wall: Unremarkable. No axillary adenopathy. Upper abdomen: There is a hazy mesenteric edema within the upper abdomen, only partially visualized. Osseous structures: No destructive osseous lesions. Procedure Note Eliezer Marshall MD - 07/22/2017 EXAM: CT CHEST WITH CONTRAST UTILIZING PULMONARY EMBOLISM PROTOCOL HISTORY: Dyspnea. TECHNIQUE: CT chest was done with contrast after the patient received 120 mL of Optiray 350 intravenously. Pulmonary embolism protocol was utilized. COMPARISONS: No relevant priors. FINDINGS: Pulmonary arteries: No definite pulmonary embolus. Pulmonary artery opacification is good. Main pulmonary artery normal in caliber. Thyroid: Unremarkable. Heart: Normal heart size without pericardial effusion. No coronary arterial calcification. Aorta and vascular: Unremarkable. Mediastinum and boom: No mass. No adenopathy. Airway: Unremarkable. Lungs/Pleura: There are scattered patchy areas of dependent atelectasis bilaterally but no focal pneumonia or pulmonary edema. No pleural effusion or pneumothorax. Chest wall: Unremarkable. No axillary adenopathy. Upper abdomen: There is a hazy mesenteric edema within the upper abdomen, only partially visualized. Osseous structures: No destructive osseous lesions. IMPRESSION: 1. No evidence of pulmonary embolism. Patchy areas of atelectasis within the lungs bilaterally, but otherwise no definite acute intrathoracic abnormality. 2. Hazy mesenteric edema within the upper abdomen, only partially visualized. Clinical correlation recommended. Electronically signed by: ELIEZER MARSHALL MD Bear Anderson MD IMG CT PROCEDURES Final Result * Lipid panel (07/22/2017 2:55 PM CARD READER) Cholesterol 130 30 - 200 mg/dL [facility] Comment: Interpretive Data Desirable: ?<200 mg/dL Borderline high: ??200-239 mg/dL High: ? >240 mg/dL Literature Reference: National Cholesterol Education Program (NCEP) Expert Panel on Detection, Evaluation, and Treatment of High Blood Cholesterol in Adults (Adult Treatment Panel III). Circulation 2004; 110:227. Current Interpretive Data was last revised on 2016. HDL 42 >=40 mg/dL [facility] Comment: Interpretive Data Males: Desireable: = or > 60 mg/dL Hirgher risk: < 40 mg/dL Females: Desireable: = or > 60 mg/dL Hirgher risk: < 50 mg/dL Literature Reference: National Cholesterol Education Program (NCEP) Expert Panel on Detection, Evaluation, and Treatment of High Blood Cholesterol in Adults (Adult Treatment Panel III).Circulation 2004; 110:227. Current interpretive data was last revised on 2016.. LDL, calculated 73.40 10.00 - 129.00 mg/dL [facility] Comment: Interpretive Data Desirable: ? < 100 mg/dL Borderline High: ?? 130 - 159 mg/dL High: ?160-189 mg/dL Very High: ? = or > 190 mg/dL Literature Reference: National Cholesterol Education Program (NCEP) Expert Panel on Detection, Evaluation, and Treatment of High Blood Cholesterol in Adults (Adult Treatment Panel III).Circulation 2004; 110:227. Current Interpretive Data was last revised on 2016. Chol/HDL ratio 3.1 <=4.9 [facility] Triglycerides 73 0 - 150 mg/dL [facility] Comment: Interpretive Data Desirable: ?<150 mg/dL Borderline high: ??150-199 mg/dL High: ? >200 mg/dL Literature Reference: National Cholesterol Education Program (NCEP) Expert Panel on Detection, Evaluation, and Treatment of High Blood Cholesterol in Adults (Adult Treatment Panel III). Circulation 2004; 110:227. Current Interpretive Data was last revised on 2016. Blood specimen (specimen) 07/22/2017 2:55 PM CARD READER 07/22/2017 3:16 PM CARD READER Narrative [facility] - 07/22/2017 3:42 PM CARD READER us Ajith Lloyd DO LAB BLOOD ORDERABLES Final Result Performing Organization Address [facility] Co de Phone Number [facility] [address] Department [place] [address] * Troponin T (07/22/2017 2:55 PM CARD READER) Troponin T <0.01 <=0.01 ng/mL [facility] Comment: Interpretive Data. <0.01 ng/mL is Negative >0.01 ng/mL is above the 99th Percentile cutoff for a healthy population. May indicate risk, requires further evaluation. (Ref. Cb Baker. et al.: AM J Med. 2003; 115:178-184) 0.1 ng/mL is World Health Organization diagnosis point for Acute M.I. 0.3 ng/mL is high probability of Acute M.I. Current Interpretive Data was last revised 2016. On August 17, 2016 Troponin I testing has been replaced with Troponin T. ??If you have any questions, please contact the Laboratory at [phone] Blood specimen (specimen) 07/22/2017 2:55 PM CARD READER 07/22/2017 3:16 PM CARD READER Narrative [facility] - 07/22/2017 3:42 PM CARD READER Aby Farr DESKTOP SPECIALIST LAB BLOOD ORDERABLES Final Result Performing Organization Address [facility] Co de Phone Number [facility] [address] Department of Laboratories [place], [place] [id number] * Stress Test Exercise for Myocardial Perfusion (07/22/2017 2:23 PM CARD READER) Anatomical Region Laterality Modality Nuclear Medicine 07/22/2017 1:05 PM CARD READER Narrative 07/22/2017 3:26 PM CARD READER [facility] [address] [place] [address] MPI Imaging Report Patient Name: SANDY CARR S : 1965 Study Date: 07/22/2017 1:05:44 PM Gender: M Tech: DORA RN Location: [id number] Ref.Physician: NAHUN CEDENO Height(Cm): BSA: Weight(Kg): Heart Rate: 143 Order Physician: GUSTAVO HUIZAR Procedures: Pharmacologic SPECT Report.: Stress Test performed in conjunction with Myocardial perfusion imaging with Sestamibi SPECT at rest and post regadenoson (Lexiscan) infusion. Results of MPI are reported separately. Indications: Chest Pain. Findings: Procedure Data: One day rest/stress protocol was used. Lexiscan Protocol. Resting HR 76 bpm. Peak HR: 97 bpm. Predicted Maximal HR 168 bpm. Target HR: 143 bpm. Percent Max Predicted HR Achieved: 57.74 %. Baseline BP: 114/75 mmHg. Peak BP: 126/68 mmHg. Exercise Time: 02:11. Reason for Termination: Lexiscan protocol complete. Resting ECG: Normal resting ECG. Post Pharm ECG: No diagnostic ST changes. Arrhythmia: No arrhythmias seen. BP Response: Blood pressure response is appropriate. Conclusions: 1. Nuclear medicine imaging portion to be reported separately. Heart rate increase is not required for adequate pharmacologic vasodilator stress. 2. Negative pharmacologic stress ECG. Electronically Signed By: Puneet Mathew MD 2017-07-22 15:26:13 CARD READER CC: CC: Procedure Note Puneet Mathew MD - 07/22/2017 [facility] [address] [place] [address] MPI Imaging Report Patient Name: SANDY CARR SPatient ID: [id number] : [id number] Date: 07/22/2017 1:05:44 PM Gender: MAccession #: [id number] Tech: DORA RNLocation: [id number] Ref.Physician: NAHUN CEDENOHeight(Cm): BSA: Weight(Kg): Heart Rate: 143Order Physician: GUSTAVO HUIZAR Procedures: Pharmacologic SPECT Report.: Stress Test performed in conjunction with Myocardial perfusion imagingwith Sestamibi SPECT at rest and post regadenoson (Lexiscan) infusion. Results of MPI arereported separately. Indications: Chest Pain. Findings: Procedure Data: One day rest/stress protocol was used. Lexiscan Protocol. Resting HR 76bpm. Peak HR: 97 bpm. Predicted Maximal HR 168 bpm. Target HR: 143 bpm. Percent MaxPredicted HR Achieved: 57.74 %. Baseline BP: 114/75 mmHg. Peak BP: 126/68 mmHg. Exercise Time:02:11. Reason for Termination: Lexiscan protocol complete. Resting ECG: Normal resting ECG. Post Pharm ECG: No diagnostic ST changes. Arrhythmia: No arrhythmias seen. BP Response: Blood pressure response is appropriate. Conclusions: 1. Nuclear medicine imaging portion to be reported separately. Heart rateincrease is not required for adequate pharmacologic vasodilator stress. 2. Negative pharmacologic stress ECG. Electronically Signed By: Puneet Mathew MD 2017-07-22 15:26:13 CARD READER CC: CC: Result [facility] Gustavo Huizar NP CV STRESS PROCEDURES Final Re sult * NM MPI SPECT (Rest and/or Stress) Multiple Studies (07/22/2017 2:23 PM CARD READER) Anatomical Region Laterality Modality Body N/A Nuclear Medicine Impressions 07/22/2017 2:41 PM CARD READER Normal study. Electronically signed by: Eulogio Hood M.D. Narrative 07/22/2017 2:41 PM CARD READER Myocardial imaging (rest/stress/SPECT/gated images with ejection fraction calculation) HISTORY: Chest pain. FINDINGS: No prior studies available for correlation. Patient received 8.6mCi technetium 99 Myoview, 25.8mCi technetium 99 Myoview, and Lexiscan. Images limited from obesity. ??No definite evidence of ischemia or infarction.. Wall motion normal with normal left ventricular ejection fraction of greater than 70%. Procedure Note Eulogio Hood MD - 07/22/2017 Myocardial imaging (rest/stress/SPECT/gated images with ejection fraction calculation) HISTORY: Chest pain. FINDINGS: No prior studies available for correlation. Patient received 8.6mCi technetium 99 Myoview, 25.8mCi technetium 99 Myoview, and Lexiscan. Images limited from obesity. No definite evidence of ischemia or infarction.. Wall motion normal with normal left ventricular ejection fraction of greater than 70%. IMPRESSION: Normal study. Electronically signed by: Eulogio Hood M.D. Gustavo Huizar DESKTOP SPECIALIST IMG NM PROCEDURES Final Resul t * ECG 12 lead (07/22/2017 9:40 AM CARD READER) Patient age 51 years [facility] Interpretation Text SINUS RHYTHMLEFT ATRIAL ENLARGEMENTPOSSIBLE ANTERIOR MYOCARDIAL INFARCTION , OF INDETERMINATE AGEABNORMAL ECGPREVIOUS TRACIN07/22/2017 07.22 [facility] Comment:Physician Interprete r Dr. Puneet Mathew M.D. Ventricular Rate EKG/Min 79 /min [facility] P Wave Duration 137 ms [facility] QRS-Interval (MSEC) 118 ms [facility] CT-Interval (MSEC) 153 ms [facility] QT Interval 403 ms [facility] QTc 436 ms [facility] QTC Interval ms [facility] P [place] 60 deg [facility] QRS [place] 67 deg [facility] T [place] 55 deg [facility] 07/22/2017 9:40 AM CARD READER us Aby Farr DESKTOP SPECIALIST ECG ORDERABLES Final Resu lt Performing Organization Address City/[facility] Co de Phone Number [facility] * ECG 12 lead (07/22/2017 7:22 AM CARD READER) Patient age 51 years [facility] Interpretation Text SINUS RHYTHMLEFT ATRIAL ENLARGEMENTMODERATE INTRAVENTRICULAR CONDUCTION DELAYABNORMAL ECGPREVIOUS TRACIN07/22/2017 01.33 [facility] Comment:Physician Interprete r Dr. Puneet Mathew M.D. Ventricular Rate EKG/Min 70 /min [facility] P Wave Duration 143 ms [facility] QRS-Interval (MSEC) 112 ms [facility] CT-Interval (MSEC) 169 ms [facility] QT Interval 410 ms [facility] QTc 427 ms [facility] QTC Interval ms [facility] P [place] 60 deg [facility] QRS [place] 54 deg [facility] T [place] 52 deg [facility] 07/22/2017 7:22 AM CARD READER us Camilo Hodges DO ECG ORDERABLES Final Res ult Performing Organization Address City/[facility]/ZIP Co de Phone Number [facility] * eGFR (07/22/2017 6:53 AM CARD READER) eGFR 65 mL/min/1.7 3 m2 [facility] Comment: Interpretive Data Reference Interval Normal ?>/= 90 mL/min/1.73m2 Mildly decreased* ? 60 - 89 mL/min/1.73m2 Mildly to moderately decreased ?45 - 59 mL/min/1.73m2 Moderately to severely decreased ??30 - 44 mL/min/1.73m2 Severely decreased ?15 - 29 mL/min/1.73m2 Kidney Failure ?< 15 ??mL/min/1.73m2 *Relative to young adult level If -Marshallese multiply value by 1.16. Estimated glomerular filtration [...] 70. Current interpretive data was last reviewed 2016. Blood specimen (specimen) 07/22/2017 6:53 AM CARD READER 07/22/2017 7:33 AM CARD READER Narrative [facility] - 07/22/2017 8:00 AM CARD READER us Camilo Hodges DO LAB BLOOD ORDERABLES Greer l Result [facility] [address] Department [place] [address] * Differential, auto (07/22/2017 6:53 AM CARD READER) Neutrophil pct 56.2 44.0 - 80.0 % [facility] Imm gran pct 0.2 0.0 - 1.0 % [facility] Lymphocyte pct 31.2 13.0 - 44.0 % [facility] Monocyte pct 7.5 2.0 - 11.0 % [facility] Eosinophil pct 4.3 0.0 - 6.0 % [facility] Basophil pct 0.6 0.0 - 3.0 % [facility] Neutrophil abs 5.58 1.70 - 6.50 K/cumm [facility] Imm gran abs 0.02 0.00 - 0.10 K/cumm [facility] Lymphocyte abs 3.10 0.80 - 3.30 K/cumm [facility] Monocyte abs 0.75 0.20 - 0.80 K/cumm [facility] Eosinophil abs 0.43 0.00 - 0.50 K/cumm [facility] Basophil abs 0.06 0.00 - 0.10 K/cumm [facility] Blood specimen (specimen) 07/22/2017 6:53 AM CARD READER 07/22/2017 7:33 AM CARD READER Narrative [facility] - 07/22/2017 7:40 AM CARD READER Camilo Hodges DO LAB BLOOD ORDERABLES Greer l Result [facility] [address] Department [place] [address] * Troponin T (07/22/2017 6:53 AM CARD READER) Troponin T <0.01 <=0.01 ng/mL [facility] Comment: Interpretive Data. <0.01 ng/mL is Negative >0.01 ng/mL is above the 99th Percentile cutoff for a healthy population. May indicate risk, requires further evaluation. (Ref. Cb Baker. et al.: AM J Med. 2003; 115:178-184) 0.1 ng/mL is World Health Organization diagnosis point for Acute M.I. 0.3 ng/mL is high probability of Acute M.I. Current Interpretive Data was last revised 2016. On August 17, 2016 Troponin I testing has been replaced with Troponin T. ??If you have any questions, please contact the Laboratory at [phone] Blood specimen (specimen) 07/22/2017 6:53 AM CARD READER 07/22/2017 7:33 AM CARD READER Narrative [facility] - 07/22/2017 8:00 AM CARD READER us Ayb Farr DESKTOP SPECIALIST LAB BLOOD ORDERABLES Final Result [facility] [address] Department [place] [address] * (ABNORMAL) Comprehensive metabolic panel (07/22/2017 6:53 AM CARD READER) Sodium 143 135 - 145 mmol/L [facility] Potassium, pl 4.0 3.3 - 4.9 mmol/L [facility] CO2 29 22 - 32 mmol/L [facility] BUN 18 8 - 25 mg/dL [facility] Glucose 91 70 - 199 mg/dL [facility] Comment: Interpretive Data Fasting glucose >/= 126 [...] interpretive data was last revised 2017. Creatinine 1.27 0.80 - 1.30 mg/dL [facility] Calcium 8.7 8.5 - 10.3 mg/dL [facility] Chloride 105 97 - 110 mmol/L [facility] Albumin 3.0(L) 3.5 - 5.0 g/dL [facility] AST 16 10 - 50 Units/L [facility] ALT 13 7 - 55 Units/L [facility] Alk phos 71 40 - 130 Units/L [facility] Bilirubin, total 0.4 0.1 - 1.2 mg/dL [facility] Protein, pl 7.0 6.5 - 8.5 g/dL [facility] Anion gap 9 2 - 15 mmol/L [facility] Blood specimen (specimen) 07/22/2017 6:53 AM CARD READER 07/22/2017 7:33 AM CARD READER Narrative [facility] - 07/22/2017 8:00 AM CARD READER Camilo Hodges DO LAB BLOOD ORDERABLES Greer espinosa Result [facility] [address] Department [place] [address] * (ABNORMAL) CBC with auto differential (07/22/2017 6:53 AM CARD READER) WBC 9.9 3.8 - 9.9 K/cumm [facility] RBC 3.96(L) 4.30 - 5.80 M/cumm [facility] Hgb 9.7(L) 13.0 - 17.5 g/dL [facility] Hct 32.4(L) 38.9 - 50.3 % [facility] MCV 81.8 81.3 - 96.4 fL [facility] MCH 24.5(L) 27.1 - 33.3 pg [facility] MCHC 29.9(L) 32.3 - 35.7 g/dL [facility] RDW CV 16.7(H) 11.1 - 14.9 % [facility] RDW SD 49.8(H) 35.7 - 48.1 fL [facility] Plt 275 150 - 400 K/cumm [facility] MPV 11.6 9.1 - 12.3 fL [facility] NRBC abs 0.00 0.00 - 0.01 K/cumm [facility] Blood specimen (specimen) 07/22/2017 6:53 AM CARD READER 07/22/2017 7:33 AM CARD READER Narrative [facility] - 07/22/2017 7:40 AM CARD READER Camilo L. Galkowski DO LAB BLOOD ORDERABLES Greer l Result Performing Organization Address [facility] Co de Phone Number [facility] [address] [facility] [place] [address] * aPTT (07/22/2017 5:23 AM CARD READER) Pathologist [facility] aPTT 29.2 26.0 - 36.0 sec [facility] Comment: Interpretive Data Therapeutic Heparin Range: ??52-80 seconds. Note: Coagulation specimens must be collected peripherally for best results. As a result of changes in our Laboratory Information System, selected coagulation test results may be reported prior to identification of contaminated or clotted samples. In such cases, affected tests may subsequently be canceled and re-collection ordered, with notification to nursing. Please contact Hematology at with any questions. Current Interpretive Data was last revised on 2016. Blood specimen (specimen) 07/22/2017 5:23 AM CARD READER 07/22/2017 6:12 AM CARD READER Narrative [facility] - 07/22/2017 6:38 AM CARD READER Camilo Hodges DO LAB BLOOD ORDERABLES Greer l Result Performing Organization Address [facility] Co de Phone Number [facility] [address] [place] [address] * ECG 12 lead (07/22/2017 1:33 AM CARD READER) Patient age 51 years [facility] Interpretation Text SINUS RHYTHMPOSSIBLE LEFT ATRIAL ENLARGEMENTBORDERLINE ECGNO PREVIOUS TRACING [facility] Comment:Physician Interprete r Dr. Puneet Mathew M.D. Ventricular Rate EKG/Min 86 /min [facility] P Wave Duration 119 ms [facility] QRS-Interval (MSEC) 114 ms [facility] CT-Interval (MSEC) 149 ms [facility] QT Interval 382 ms [facility] QTc 427 ms [facility] QTC Interval ms [facility] P [place] 69 deg [facility] QRS [place] 52 deg [facility] T [place] 38 deg [facility] 07/22/2017 1:33 AM CARD READER Camilo Hodges DO ECG ORDERABLES Final Res ult [facility] * DISCHARGE LABORATORY CUMULATIVE REPORT (07/22/2017 12:00 AM CARD READER) Narrative 07/22/2017 12:00 AM CARD READER Ordered by an unspecified provider. Historical Provider LAB BLOOD ORDERABLES Greer l Result documented in this encounter Visit Diagnoses Diagnosis Chest pain- Primary Unspecified chest pain Chest pain, unspecified type Hyperlipidemia Other and unspecified hyperlipidemia Essential hypertension Unspecified essential hypertension documented in this encounter Administered Medications Inactive Administered Medications - up to 3 most recent administrations Medication Order MAR Action Action Date Dose Rate Site aspirin enteric coated tablet 325 mg 325 mg, oral, Daily, First dose on Tue07/22/17 at 0900, Do not crush or chew Given 07/22/2017 8:31 AM CARD READER 325 mg aspirin enteric coated tablet 81 mg 81 mg, oral, Daily, First dose (after last modification) on Tue07/23/17 at 0900, Do not crush or chew furosemide (LASIX) tablet 20 mg 20 mg, oral, Daily, First dose on Tue07/22/17 at 0900 Given 07/22/2017 8:31 AM CARD READER 20 mg heparin 10,000 unit/mL injection 2,000-3,000 Units 2,000-3,000 Units, intravenous, Every 6 hours PRN, low PTT, Starting on Tue07/22/17 at 0147, PTT less than 40 seconds: 3000 units PTT 40-50 seconds: 2000 units, Indications: Acute Coronary SyndromeIndications:Ac hannah Coronary Syndrome Given 07/22/2017 6:45 AM CARD READER 3,000 Units heparin infusion 100 units/mL 0.45 % NS (premix) 1-33 Units/kg/hr ? 166 kg (1.66-54.78 mL/hr), intravenous, Titrated, Starting on Tue07/22/17 at 0200, Initial Rate: 6 Units/kg/hr. Max initial rate 1,000 units/hr. Adjust infusion based upon nomogram: PTT < 40 seconds: Bolus if ordered (see PRN bolus order) , then increase infusion rate 3 units/kg/hour PTT 40 - 50 seconds: Bolus if ordered (see PRN bolus order), then increase infusion rate 2 units/kg/hour PTT 51 - 59 seconds: No bolus, increase infusion rate 1 unit/kg/hour PTT 60 - 94 seconds: No change PTT 95 - 104 seconds: No bolus, decrease infusion rate 1 unit/kg/hour PTT 105-114 seconds: Hold infusion for 30 minutes, then decrease infusion rate 2 units/kg/hour PTT > 114 seconds: Hold infusion for 1 hour, then decrease infusion rate 3 units/kg/hour Draw STAT PTT 6 hrs after initial heparin bolus, after each rate change, and every 6 hours until 2 consecutive PTTs are within therapeutic range. Once two consecutive PTT's are therapeutic (60-94 seconds), then draw PTT every AM until heparin is discontinued., Indications: Acute Coronary SyndromeIndications:Ac hannah Coronary Syndrome Rate/Dose Verify 07/22/2017 7:30 AM CARD READER 9 Units/kg/hr 14.94 mL/hr Rate/Dose Change 07/22/2017 6:46 AM CARD READER 9 Units/kg/hr 14.9 4 mL/hr New Bag 07/22/2017 1:58 AM CARD READER 6 Units/kg/hr 9.96 mL/hr influenza quadrivalent [id number] (FLUZONE/FLUARIX) 60 mcg (15 mcg x 4)/0.5 mL vaccine (STANDARD age 36 months and up) 0.5 mL 0.5 mL, intramuscular, During hospitalization, immunization, Starting on Tue07/22/17 at 0511, For 1 dose ioversol (OPTIRAY 350) syringe syringe 125 mL 125 mL, intravenous, Once in imaging, contrast, Starting on Tue07/22/17 at 1639, For 1 dose Given 07/22/2017 4:50 PM CARD READER 120 mL metoprolol XL (TOPROL-XL) extended release tablet 50 mg 50 mg, oral, Daily, First dose on Tue07/22/17 at 0900, Do not crush or chew Given 07/22/2017 8:31 AM CARD READER 50 mg morphine 2 mg/mL injection - ADS Override Pull Starting on Tue07/22/17 at 1000, For 1 dose, Yelena Weathers: francisco javier override morphine injection 1 mg 1 mg, intravenous, Once, On Tue07/22/17 at 1030, For 1 dose Given 07/22/2017 10:02 AM CARD READER 1 mg morphine injection 4 mg 4 mg, intravenous, Once, On Tue07/22/17 at 0200, For 1 dose, Indications: PainIndications:Pain Given 07/22/2017 1:57 AM CARD READER 4 mg multivitamin tablet 1 tablet 1 tablet, oral, Daily, First dose on Tue07/22/17 at 0900, Indications: Vitamin Deficiency PreventionIndications:Vitamin Deficiency Prevention Given 07/22/2017 8:31 AM CARD READER 1 tablet nitroglycerin (NITRO-BID) 2 % ointment 1 inch 1 inch, topical, Once, On Tue07/22/17 at 0600, For 1 dose, Apply to chest or back with the applicator or dose-measuring paper. Given 07/22/2017 6:53 AM CARD READER 1 inch nitroglycerin (NITROSTAT) sublingual tablet 0.4 mg 0.4 mg, sublingual, Every 5 min PRN, chest pain, cp, Starting on Tue07/22/17 at 0932, May administer up to 3 doses per episode. Given 07/22/2017 9:46 AM CARD READER 0. 4 mg Given 07/22/2017 9:36 AM CARD READER 0.4 mg Given 07/22/2017 9:30 AM CARD READER 0.4 mg regadenoson (LEXISCAN) 0.4 mg/5 mL injection 0.4 mg 0.4 mg, intravenous, Once, On Tue07/22/17 at 1315, For 1 dose, Indications: Myocardial Perfusion Imaging AdjunctIndications:Myocardial Perfusion Imaging Adjunct Given 07/22/2017 1:27 PM CARD READER 0.4 mg sodium chloride 0.9% flush 125 mL 125 mL, intravenous, Once in imaging, line care, Starting on Tue07/22/17 at 1639, For 1 dose Given 07/22/2017 4:50 PM CARD READER 125 mL tc-99m tetrofosmin (MYOVIEW) injection 1,310 millicurie 1,310 millicurie, intravenous, Once in imaging, radiopharmaceutical, Starting on Tue07/22/17 at 1310, For 1 dose, Indications: Diagnostic RadiographyIndications:Diagnostic Radiography Given 07/22/2017 1:10 PM CARD READER 1,310 millicuries tc-99m tetrofosmin (MYOVIEW) injection 8.64 millicurie 8.64 millicurie, intravenous, Once in imaging, radiopharmaceutical, Starting on Tue07/22/17 at 1149, For 1 dose, Indications: Diagnostic RadiographyIndications:Diagnostic Radiography Given 07/22/2017 11:49 AM CARD READER 8.64 millicuries documented in this encounter Historical Medications * This list may reflect changes made after this encounter. multivitamin tabletIndications :Vitamin Deficiency Take 1 tablet by mouth every morning furosemide (LASIX) 20 mg tabletIndications :Edema Take 20 mg by mouth daily as needed isosorbide mononitrate ER (IMDUR) 30 mg 24 hr tablet Take 30 mg by mouth daily. 01/23/2021 amitriptyline (ELAVIL) 25 mg tabletIndications :depression Take 25 mg by mouth nightly 01/23/2021 tamsulosin (FLOMAX) 0.4 mg extended release capsule 0.4 mg nightly. 01/23/2021 metoprolol XL (TOPROL-XL) 50 mg 24 hr tablet Take 50 mg by mouth daily. 01/23/2021 pravastatin (PRAVACHOL) 20 mg tablet Take 20 mg by mouth nightly. 01/23/2021 added in this encounter Active and Recently Administered Medications Times are shown in CARD READER. Scheduled Medication Order 07/20/2017 07/21/2017 07/22/2017 amitriptyline (ELAVIL) tablet 25 mg 25 mg, oral, Nightly, First dose on Tue07/22/17 at 2100 aspirin enteric coated tablet 325 mg (CANCELED) 325 mg, oral, Daily, First dose on Tue07/22/17 at 0900, Do not crush or chew 0831 (Given - Provid er: Yelena Weathers, AVA) aspirin enteric coated tablet 81 mg 81 mg, oral, Daily, First dose (after last modification) on Tue07/23/17 at 0900, Do not crush or chew furosemide (LASIX) tablet 20 mg 20 mg, oral, Daily, First dose on Tue07/22/17 at 0900 0831 (Given - Provid er: Yelena Weathers RN) metoprolol XL (TOPROL-XL) extended release tablet 50 mg 50 mg, oral, Daily, First dose on Tue07/22/17 at 0900, Do not crush or chew 0831 (Given - Provid er: Yelena Weathers, AVA) morphine injection 1 mg (COMPLETED) 1 mg, intravenous, Once, On Tue07/22/17 at 1030, For 1 dose 1002 (Given - Provid er: Yelena Weathers RN) morphine injection 4 mg (COMPLETED) 4 mg, intravenous, Once, On Tue07/22/17 at 0200, For 1 dose, Indications: Pain 0157 (Given - Provid er: Falguni Salomon RN) multivitamin tablet 1 tablet 1 tablet, oral, Daily, First dose on Tue07/22/17 at 0900, Indications: Vitamin Deficiency Prevention 0831 (Given - Provid er: Yelena Weathers, AVA) nitroglycerin (NITRO-BID) 2 % ointment 1 inch (COMPLETED) 1 inch, topical, Once, On Tue07/22/17 at 0600, For 1 dose, Apply to chest or back with the applicator or dose-measuring paper. 0653 (Given - Provid er: Dayanara Ulrich RN) pravastatin (PRAVACHOL) tablet 20 mg 20 mg, oral, Nightly, First dose on Tue07/22/17 at 2100 regadenoson (LEXISCAN) 0.4 mg/5 mL injection 0.4 mg (COMPLETED) 0.4 mg, intravenous, Once, On Tue07/22/17 at 1315, For 1 dose, Indications: Myocardial Perfusion Imaging Adjunct 1327 (Given - Provid er: Karime David, R-RT) tamsulosin (FLOMAX) extended release capsule 0.4 mg 0.4 mg, oral, Nightly, First dose on Tue07/22/17 at 2100, Do not crush or chew Continuous Medication Order 07/20/2017 07/21/2017 07/22/2017 heparin infusion 100 units/mL 0.45 % NS (premix) (CANCELED) 1-33 Units/kg/hr ? 166 kg (1.66-54.78 mL/hr), intravenous, Titrated, Starting on Tue07/22/17 at 0200, Initial Rate: 6 Units/kg/hr. Max initial rate 1,000 units/hr. Adjust infusion based upon nomogram: PTT < 40 seconds: Bolus if ordered (see PRN bolus order) , then increase infusion rate 3 units/kg/hour PTT 40 - 50 seconds: Bolus if ordered (see PRN bolus order), then increase infusion rate 2 units/kg/hour PTT 51 - 59 seconds: No bolus, increase infusion rate 1 unit/kg/hour PTT 60 - 94 seconds: No change PTT 95 - 104 seconds: No bolus, decrease infusion rate 1 unit/kg/hour PTT 105-114 seconds: Hold infusion for 30 minutes, then decrease infusion rate 2 units/kg/hour PTT > 114 seconds: Hold infusion for 1 hour, then decrease infusion rate 3 units/kg/hour Draw STAT PTT 6 hrs after initial heparin bolus, after each rate change, and every 6 hours until 2 consecutive PTTs are within therapeutic range. Once two consecutive PTT's are therapeutic (60-94 seconds), then draw PTT every AM until heparin is discontinued., Indications: Acute Coronary Syndrome 0158 (New Bag - Prov ider: Falguni Salomon RN)0646 (Rate/Dose Change - Provider: Dayanara Ulrich RN - Comment: incresing by 3 units PTT 29.2)0730 (Rate/Dose Verify - Provider: Yelena Weathers RN)0910 (Canceled Entry - Provider: Yelena Weathers RN)1130 (Stopped - Provider: Yelena Weathers RN) PRN Medication Order 07/20/2017 07/21/2017 07/22/2017 heparin 10,000 unit/mL injection 2,000-3,000 Units (CANCELED) 2,000-3,000 Units, intravenous, Every 6 hours PRN, low PTT, Starting on Tue07/22/17 at 0147, PTT less than 40 seconds: 3000 units PTT 40-50 seconds: 2000 units, Indications: Acute Coronary Syndrome 0645 (Given - Provid er: Dayanara Ulrich RN - Comment: PTT 29.2) influenza quadrivalent [id number] (FLUZONE/FLUARIX) 60 mcg (15 mcg x 4)/0.5 mL vaccine (STANDARD age 36 months and up) 0.5 mL 0.5 mL, intramuscular, During hospitalization, immunization, Starting on Tue07/22/17 at 0511, For 1 dose ioversol (OPTIRAY 350) syringe syringe 125 mL (COMPLETED) 125 mL, intravenous, Once in imaging, contrast, Starting on Tue07/22/17 at 1639, For 1 dose 1650 (Given - Provid er: Yumiko Toribio R-RT) nitroglycerin (NITROSTAT) sublingual tablet 0.4 mg 0.4 mg, sublingual, Every 5 min PRN, chest pain, cp, Starting on Tue07/22/17 at 0932, May administer up to 3 doses per episode. 0930 (Given - Provid er: Yelena Weathers, RN)0936 (Given - Provider: Yelena Weathers, RN)0946 (Given - Provider: Yelena Weathers, AVA) sodium chloride 0.9% flush 125 mL (COMPLETED) 125 mL, intravenous, Once in imaging, line care, Starting on Tue07/22/17 at 1639, For 1 dose 1650 (Given - Provid er: Yumiko Toribio R-RT) tc-99m tetrofosmin (MYOVIEW) injection 1,310 millicurie (COMPLETED) 1,310 millicurie, intravenous, Once in imaging, radiopharmaceutical, Starting on Tue07/22/17 at 1310, For 1 dose, Indications: Diagnostic Radiography 1310 (Given - Provid er: Karime David, R-RT) tc-99m tetrofosmin (MYOVIEW) injection 8.64 millicurie (COMPLETED) 8.64 millicurie, intravenous, Once in imaging, radiopharmaceutical, Starting on Tue07/22/17 at 1149, For 1 dose, Indications: Diagnostic Radiography 1149 (Given - Provid er: Torri Martell, R-RT) documented in this encounter Orders Medications Ordered That Pacheco ht Not Have Been Administered Count Last Ordered Date First Ordered Date amitriptyline (ELAVIL) tablet 25 mg 1 07/22 aspirin enteric coated tablet 81 mg 1 07/22 heparin infusion 100 units/m L 0.45 % NS (premix) 1 07/22/2017 influenza quadrivalent 2017- 2017 (FLUZONE/FLUARIX) 60 mcg (15 mcg x 4)/0.5 mL vaccine (STANDARD age 36 months and up) 0.5 mL 1 07/22/2017 nitroglycerin (NITRO-BID) 2 % ointment 0.5 inch 1 07/22/2017 pravastatin (PRAVACHOL) tablet 20 mg 06/2017 tamsulosin (FLOMAX) extended release capsule 0.4 mg 1 07/22/2017 Diet Count Last Ordered Date First Orde red Date ADULT DISCHARGE DIET 1 07/22/2017 Nursing Count Last Ordered Date First Orde red Date DISCHARGE ACTIVITY 1 07/22/2017 FOLLOW UP PRIMARY PHYSICIAN 1 07/22/2017 Consult Count Last Ordered Date First Orde red Date IP CONSULT TO CARDIOLOGY 1 07/22/2017 IV Count Last Ordered Date First Orde red Date SALINE LOCK IV 1 07/22/2017 Admission Count Last Ordered Date First Orde red Date ASSIGN PATIENT STATUS 1 07/22/2017 Discharge Count Last Ordered Date First Orde red Date DISCHARGE PATIENT 1 07/22/2017 CORE MEASURES Count Last Ordered Date First Ord ered Date REASON FOR NO VTE PROPHYLAXIS AT ADMISSION 1 07/22/2017 ADT Patient Update Count Last Ordered Date Firs t Ordered Date ED IP DECISION TO ADMIT 1 07/22/2017 documented in this encounter Care Teams Drive In Teller Relationship Specialty Start Date End Date Jessica Kurtz NP [address] [place] [address] PCP - General 07/21/17 10/07/19 documented as of this encounter
--- OUTSIDE RECORDS SUMMARY | 2024-05-22 05:54 | XMS_ITS | Encounter Summary ---
Author Organization [facility] Address [address] [place] [address] Phone Care Team Providers Care Airport Security Screener Name Role Phone Natasha Bates Primary Care Provider [phone] Reason for Visit * Reason Comments Follow-up * Consultation (Routine) - Closed Specialty Diagnoses / Procedures Referred By Malena sagastume Referred To Contact Urology Diagnoses Scrotal swelling Natasha Bates PA [address] [place] [address] Phone: tel: fax: Suzette Rogers MD [address] [facility] [address] [place] [address] Phone: tel: fax: Referral ID Status Reason Start Date Expiration Date V isits Requested Visits Authorized [id number] Closed Specialty Services Required 10/08/2019 04/18/2021 99 [phone] Encounter Details Date Type Department Care Team (Late st Contact Info) Description 11/01/2019 2:20 PM CDT Office Visit [facility] Urology [address] [facility] [address] [place] [id number] Suzette Rogers MD [address] [facility] [address] [place] [address] Dysuria (Primary Dx); LIZET (stress urinary incontinence), male; Acute cystitis with hematuria Social History Tobacco Use Types Packs/Day Years Used Date Smoking Tobacco: Never Alcohol Use Standard Drinks/Week Comments No 0 (1 standard drink = 0.6 oz pur e alcohol) Sex and Gender Information Value Date Recorded Sex Assigned at Not on file Legal Sex 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 HORSER UP Gender Identity Not on file Sexual Orientation Not on file documented as of this encounter Ordered Prescriptions Prescription Sig Dispense Quantity Refills Last Filled Start Date End Date nitrofurantoin monohydrate (MACROBID) 100 mg capsuleIndications :Urinary Tract/Genitourinar y Infection Take 1 capsule (100 mg total) by mouth 2 (two) times a day for 7 days 14 capsule 11/01/2019 0 documented in this encounter Progress Notes * Suzette Rogers MD - 11/01/2019 2:20 PM CDT HPI: Howie Delaney is a 53 y.o. male with history of male stress urinary incontinence. 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 In August of 2017, he underwent an artificial urinary sphincter placement, it was a 4.0 cm cuff in the bulbar urethra, 61-70 cm pressure ring balloon, and thesystem was filled with normal saline. The system has been working well for him high, he does not have much urinary incontinence. More recently he complain about scrotal swelling, and also dysuria when he urinates. Because he has an AUS in place, I recommend patient is to come to the office for cystoscopy and for further evaluation. We want to make sure he does not have an erosion of the sphincter given his symptomatology. UA: see lab results from today Physical examination: GENERAL: Patient is a healthy appearing female who is well developed, well nourished in no acute distress. Eyes: Pupils equal, round. Sclera anicteric. Chest: Lungs clear to auscultation bilaterally. Heart: Regular rate and rhythm. Abdomen: Soft and non-tender, no masses, no hernia. No CVA tenderness. Skin: No rashes or lesions. Musculoskeletal: Normal strength. No edema. Neurologic: Alert, nonfocal. Psychiatric: Normal affect and mood, oriented x 3. The AUS pump is located in the right anterior hemiscrotum. There is no induration or tenderness or scarring around the pump. The AUS appears to cycle normally. The appears to be fluid inside the system. Cystoscopy (male): Indication for cystoscopy: Dysuria, we artificial urinary sphincter in place, need to rule out AUS erosion in the bulbar urethral area Patient has a very sensitive urethra, we give him extra 2% intraurethral lidocaine jelly prior to cystoscopy. His AUS was deactivated prior to cystoscopy The risks and benefits of office cystoscopy [...] URETHRA: Normal without strictures or lesions. I saw before I go to the prostate. Is no erosion of the artificial urinary sphincter His AUS was activated after cystoscopy. Assessment and Plan: History of TURP, History of AUS placement, 2018, 4.0 cm, 61-70, with normal saline History of male stress urinary incontinence Dysuria UTI 1. There is no swelling around the scrotal pump of the AUS. There is no evidence of clinical infections. 2. Cystoscopy is normal. There is no evidence of erosion. His urine culture from 2 days ago show Enterococcus 3. We will put him on culture sensitive antibiotics nitrofurantoin for 7 days. He has enterococcus for UTI. Will repeat urine culture after that. His Cr 1.5 H. Roberto Rogers MD interlocking machine operator (Urology) Division of Urologic Surgery [facility] Office [phone] 11/01/2019 4:15 PM documented in this encounter Miscellaneous Notes * Addendum Note - Parag Bullock - 11/01/2019 2:20 PM CDTAddended by: PARAG BULLOCK on: 11/01/2019 09:44 PM Modules accepted: Orders documented in this encounter Plan of Treatment Not on file documented as of this encounter Procedures Procedure Name Priority Date/Time Associated Diagnosis Comments POCT URINALYSIS DIPSTICK Routine 11/01/2019 4:27 PM CDT Dysuria LIZET (stress urinary incontinence), male documented in this encounter Results * Urine culture Urine, clean voided (11/01/2019 9:44 PM CDT) Report Final Report: Less than 100,000 colonies/mL (clinically insignificant growth based on current clinical standards) [facility] Organism (CLINICALLY INSIGNIFICANT GROWTH [facility] Urine, clean voided 11/01/2019 9:44 PM CDT 11/01/2019 10:15 PM CDT Narrative YO CORTEZ - 11/03/2019 7:36 AM CDT Testing performed by [facility] ([phone]) Suzette Rogers MD LAB MICROBIOLOGY - GENERAL ORD ERABLES Final Result [facility] Department [place] [address] * POCT urinalysis dipstick (11/01/2019 4:27 PM CDT) Glucose, ur, POC Negative Negative mg/dL Ketones, ur, POC Negative Negative Blood, ur, POC Negative Negative pH, ur, POC 5.0 5.0 - 8.0 Protein, ur, POC Negative Negative Nitrite, ur, POC Negative Negative Leukocytes, ur, POC Negative Negative Lot Number [id number] Urine 11/01/2019 4:27 PM CDT Suzette Rogers MD POINT OF CARE TEST ORDERABLES Final Result documented in this encounter Visit Diagnoses Diagnosis Dysuria- Primary LIZET (stress urinary incontinence), male Acute cystitis with hematuria Dysuria LIZET (stress urinary incontinence), male documented in this encounter Care Teams Airport Security Screener Relationship Specialty Start Date End Date Natasha Bates PA [address] [place] [address] PCP - General Physician Product Marketing Coordinator 10/08/19 documented as of this encounter
--- OUTSIDE RECORDS SUMMARY | 2024-05-22 05:54 | XMS_ITS | Encounter Summary ---
Author Organization [facility] Address [address] [place] [address] Care Team Providers Care Personal Finance Instructor Name Role Phone Unavailable Primary Care Provider Unavailabl e Encounter Details Date Type Department Care Team (Late st Contact Info) Description 07/28/2006 6:20 PM FIRST BREAKER FEEDER - 07/29/2006 1:25 PM FIRST BREAKER FEEDER Hospital Encounter [facility] Deidre De La Rosa MD [address] [place] [id number] Social History Tobacco Use Types Packs/Day Years Used Date Smoking Tobacco: Never Assessed Sex and Gender Information Value Date Recorded Sex Assigned at Not on file Legal Sex 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 FIRST BREAKER FEEDER Gender Identity Not on file Sexual Orientation Not on file documented as of this encounter Plan of Treatment Not on file documented as of this encounter Visit Diagnoses Not on filedocumented in this encounter
--- OUTSIDE RECORDS SUMMARY | 2024-05-22 05:54 | XMS_ITS | Encounter Summary ---
Author Organization [facility] Healthcare Address [address] [place] [address] Care Team Providers Care Sew On Operator Name Role Phone Jessica Kurtz NP Primary Care Provider [phone] Encounter Details Date Type Department Care Team (Late st Contact Info) Description 07/27/2017 2:22 PM PUBLIC TRANSPORTATION INSPECTOR - 07/27/2017 11:59 PM [facility] [place] Hospital Encounter [facility] INTERIM [phone] Isai Martinez MD [address] [facility] [address] [place] [address] Discharge Disposition: Discharge to home or self care Social History Tobacco Use Types Packs/Day Years Used Date Smoking Tobacco: Never Alcohol Use Standard Drinks/Week Comments No 0 (1 standard drink = 0.6 oz pur e alcohol) Sex and Gender Information Value Date Recorded Sex Assigned at Not on file Legal Sex 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 PUBLIC TRANSPORTATION INSPECTOR Gender Identity Not on file Sexual [...] Procedure Name Priority Date/Time Associated Diagnosis Comments 3-D RENDERING ON MODALITY Routine 07/27/2017 8:57 PM PUBLIC TRANSPORTATION INSPECTOR CT ABDOMEN PELVIS W WO CONTRAST Routine 07/27/2017 8:57 PM PUBLIC TRANSPORTATION INSPECTOR documented in this encounter Results * CT Abdomen Pelvis W WO Contrast (07/27/2017 8:57 PM PUBLIC TRANSPORTATION INSPECTOR) Anatomical Region Laterality Modality Body N/A Computed Tomogra phy 07/27/2017 8:57 PM PUBLIC TRANSPORTATION INSPECTOR Narrative 07/27/2017 9:32 PM PUBLIC TRANSPORTATION INSPECTOR ROLANDO ROMERO M.D. FINAL REPORT ACC# ??Date Time ??Exam [id number] Jul 27, 2017 14:57:00 [id number] 3-DRendering sep Modality [id number] Jul 27, 2017 14:57:[address] Abd & ??Pelvis w/wo EXAMINATION: ?? 1. CT UROGRAPHY WITH AND WITHOUT CONTRAST 2. 3D RENDERING HISTORY: Hematuria TECHNIQUE: ??CT urography of the abdomen and pelvis was performed prior to and following the uneventful intravenous administration of mL Optiray 350 in the combined nephrographic and excretory phases according to a split bolus protocol. Post-processed 3D images were generated on a dedicated workstation and also reviewed. COMPARISON: No prior studies were available for comparison. FINDINGS: UROGRAPHIC FINDINGS: Right Kidney: The right kidney measures 13.5 cm pole to pole. ??Small cyst is noted in the upper pole of the right kidney. ??There are no suspicious focal lesions. No calculi are seen. There is no hydronephrosis. The distal ureter is nonopacified, but the opacified portions appear normal. The urothelium appears normal. Left Kidney: The left kidney measures 13.7 cm pole to pole. ??Small cyst is noted in the interpolar region. ??There are no suspicious focal lesions. No calculi are seen. There is no hydronephrosis. Several short segments of the proximal ureter are not opacified, but the opacified portions appear normal. The urothelium appears normal. Bladder: There is moderate circumferential bladder wall thickening. Anterior lumen of the urinary bladder is not well-opacified. Submucosal fat deposition is seen throughout the urinary bladder. No discrete masses are seen. NON-UROGRAPHIC FINDINGS: There is mild left basilar atelectasis. Lung bases are otherwise clear. ??Trace pericardial fluid is seen. Heart size is normal. ??There is suggestion of some central liver atrophy. ??The caudate lobe may be mildly enlarged. ??No focal liver lesions are seen. ??No biliary ductal dilatation. ??The gallbladder is decompressed. ??The spleen is normal. ??Stranding is seen throughout the retroperitoneum and the mesentery. ??Some of the stranding surrounds the pancreas, which is otherwise normal in appearance. ??The adrenal glands are normal. ??There are no dilated loops of small or large bowel. ??Mesenteric vessels appear patent. ??There are multiple prominent retroperitoneal and pelvic lymph nodes. ??These nodes are increased in number but only minimally increased in size. ??For reference, a left retroperitoneal lymph node measures 2.0 x 1.3 cm (SP -1004). ??A right external iliac lymph node measures 2.9 x 1.3 cm (SP -831). Multilevel degenerative changes are seen in the lumbar spine. IMPRESSION: ??1. ??Circumferential moderate urinary bladder wall-thickening without discrete mass, though evaluation of the urothelium is limited by incomplete opacification urinary bladder lumen. ??Consider cystoscopy for further evaluation given the history of hematuria. ??There are no suspicious upper tract lesions. 2. ??Diffuse stranding throughout the retroperitoneum and mesentery of uncertain significance. ??These findings could be secondary to generalized volume overload, such as in the setting of heart failure, or potentially secondary to liver disease, as there is some suggestion of hepatic fibrosis without gross surface nodularity. Correlation with clinical volume status and echocardiogram is recommended. ??Additionally, MR or US elastography could be performed to assess for evidence of cirrhosis. 3. ??Scattered mildly enlarged lymph nodes throughout the retroperitoneum and pelvis that are also increased in number. Although these lymph nodes are likely reactive and could be related to the above-described edema, malignancy remains a less likely consideration. ??Consider a short-term (3 months) follow-up CT to assess for stability or comparison with prior cross-sectional imaging, if available. Electronically signed by: Rolando Romero M.D. Requested By: ISAI MARTINEZ ??M.D. ? Dictated By: ?? ROLANDO ROMERO M.D. ??on Jul ??2017 ??3:30P This document has been electronically signed by: ROLANDO ROMERO M.D. on Jul 27 2017 ??3:30P [id number] ROMERO M.D. FINAL REPORT Attending: ??JUAN, ??ISAI Requesting: ??JUAN, ??ISAI Requesting Fax: ?? Attending Fax: ?? Attending ID: ??[id number] Requesting ID: ??[id number] Report To 1 ID: ??[id number] ? Report To 1 Name: ??, ?? Report To 1 FAX: ?? [facility] Order #: ?? Procedure Note Miscellaneous, Not In File - 07/27/2017 ROLANDO ROMERO M.D. FINAL REPORT ACC# Date Time Exam [id number] Jul 27, 2017 14:57:00 [id number] 3-DRendering sep Modality [id number] Jul 27, 2017 14:57:[id number] Abd & Pelvis w/wo EXAMINATION: 1. CT UROGRAPHY WITH AND WITHOUT CONTRAST 2. 3D RENDERING HISTORY: Hematuria TECHNIQUE: CT urography of the abdomen and pelvis was performed prior to and following the uneventful intravenous administration of mL Optiray 350 in the combined nephrographic and excretory phases according to a split bolus protocol. Post-processed 3D images were generated on a dedicated workstation and also reviewed. COMPARISON: No prior studies were available for comparison. FINDINGS: UROGRAPHIC FINDINGS: Right Kidney: The right kidney measures 13.5 cm pole to pole. Small cyst is noted in the upper pole of the right kidney. There are no suspicious focal lesions. No calculi are seen. There is no hydronephrosis. The distal ureter is nonopacified, but the opacified portions appear normal. The urothelium appears normal. Left Kidney: The left kidney measures 13.7 cm pole to pole. Small cyst is noted in the interpolar region. There are no suspicious focal lesions. No calculi are seen. There is no hydronephrosis. Several short segments of the proximal ureter are not opacified, but the opacified portions appear normal. The urothelium appears normal. Bladder: There is moderate circumferential bladder wall thickening. Anterior lumen of the urinary bladder is not well-opacified. Submucosal fat deposition is seen throughout the urinary bladder. No discrete masses are seen. NON-UROGRAPHIC FINDINGS: There is mild left basilar atelectasis. Lung bases are otherwise clear. Trace pericardial fluid is seen. Heart size is normal. There is suggestion of some central liver atrophy. The caudate lobe may be mildly enlarged. No focal liver lesions are seen. No biliary ductal dilatation. The gallbladder is decompressed. The spleen is normal. Stranding is seen throughout the retroperitoneum and the mesentery. Some of the stranding surrounds the pancreas, which is otherwise normal in appearance. The adrenal glands are normal. There are no dilated loops of small or large bowel. Mesenteric vessels appear patent. There are multiple prominent retroperitoneal and pelvic lymph nodes. These nodes are increased in number but only minimally increased in size. For reference, a left retroperitoneal lymph node measures 2.0 x 1.3 cm (SP -1004). A right external iliac lymph node measures 2.9 x 1.3 cm (SP -831). Multilevel degenerative changes are seen in the lumbar spine. IMPRESSION: 1. Circumferential moderate urinary bladder wall-thickening without discrete mass, though evaluation of the urothelium is limited by incomplete opacification urinary bladder lumen. Consider cystoscopy for further evaluation given the history of hematuria. There are no suspicious upper tract lesions. 2. Diffuse stranding throughout the retroperitoneum and mesentery of uncertain significance. These findings could be secondary to generalized volume overload, such as in the setting of heart failure, or potentially secondary to liver disease, as there is some suggestion of hepatic fibrosis without gross surface nodularity. Correlation with clinical volume status and echocardiogram is recommended. Additionally, MR or US elastography could be performed to assess for evidence of cirrhosis. 3. Scattered mildly enlarged lymph nodes throughout the retroperitoneum and pelvis that are also increased in number. Although these lymph nodes are likely reactive and could be related to the above-described edema, malignancy remains a less likely consideration. Consider a short-term (3 months) follow-up CT to assess for stability or comparison with prior cross-sectional imaging, if available. Electronically signed by: Rolando Romero M.D. Requested By: ISAI MARTINEZ M.D. Dictated By: ROLANDO ROMERO M.D. on Jul 27 2017 3:30P This document has been electronically signed by: ROLANDO ROMERO M.D. on Jul 27 2017 3:30P [id number] ROMERO M.D. FINAL REPORT Attending: ISAI MARTINEZ Requesting: ISAI MARTINEZ Requesting Fax: Attending Fax: Attending ID: [id number] Requesting ID: [id number] Report To 1 ID: [id number] Report To 1 Name: , Report To 1 FAX: [facility] Order #: Isai Martinez MD IMG CT PROCEDURES Final Result * 3-D Rendering On Modality (07/27/2017 8:57 PM PUBLIC TRANSPORTATION INSPECTOR) Anatomical Region Laterality Modality N/A Magnetic Resonan ce 07/27/2017 8:57 PM PUBLIC TRANSPORTATION INSPECTOR Narrative 07/27/2017 9:32 PM PUBLIC TRANSPORTATION INSPECTOR ROLANDO ROMERO M.D. FINAL REPORT ACC# ??Date Time ??Exam [id number] Jul 27, 2017 14:57:00 [id number] 3-DRendering sep Modality [id number] Jul 27, 2017 14:57:[address] Abd & ??Pelvis w/wo EXAMINATION: ?? 1. CT UROGRAPHY WITH AND WITHOUT CONTRAST 2. 3D RENDERING HISTORY: Hematuria TECHNIQUE: ??CT urography of the abdomen and pelvis was performed prior to and following the uneventful intravenous administration of mL Optiray 350 in the combined nephrographic and excretory phases according to a split bolus protocol. Post-processed 3D images were generated on a dedicated workstation and also reviewed. COMPARISON: No prior studies were available for comparison. FINDINGS: UROGRAPHIC FINDINGS: Right Kidney: The right kidney measures 13.5 cm pole to pole. ??Small cyst is noted in the upper pole of the right kidney. ??There are no suspicious focal lesions. No calculi are seen. There is no hydronephrosis. The distal ureter is nonopacified, but the opacified portions appear normal. The urothelium appears normal. Left Kidney: The left kidney measures 13.7 cm pole to pole. ??Small cyst is noted in the interpolar region. ??There are no suspicious focal lesions. No calculi are seen. There is no hydronephrosis. Several short segments of the proximal ureter are not opacified, but the opacified portions appear normal. The urothelium appears normal. Bladder: There is moderate circumferential bladder wall thickening. Anterior lumen of the urinary bladder is not well-opacified. Submucosal fat deposition is seen throughout the urinary bladder. No discrete masses are seen. NON-UROGRAPHIC FINDINGS: There is mild left basilar atelectasis. Lung bases are otherwise clear. ??Trace pericardial fluid is seen. Heart size is normal. ??There is suggestion of some central liver atrophy. ??The caudate lobe may be mildly enlarged. ??No focal liver lesions are seen. ??No biliary ductal dilatation. ??The gallbladder is decompressed. ??The spleen is normal. ??Stranding is seen throughout the retroperitoneum and the mesentery. ??Some of the stranding surrounds the pancreas, which is otherwise normal in appearance. ??The adrenal glands are normal. ??There are no dilated loops of small or large bowel. ??Mesenteric vessels appear patent. ??There are multiple prominent retroperitoneal and pelvic lymph nodes. ??These nodes are increased in number but only minimally increased in size. ??For reference, a left retroperitoneal lymph node measures 2.0 x 1.3 cm (SP -1004). ??A right external iliac lymph node measures 2.9 x 1.3 cm (SP -831). Multilevel degenerative changes are seen in the lumbar spine. IMPRESSION: ??1. ??Circumferential moderate urinary bladder wall-thickening without discrete mass, though evaluation of the urothelium is limited by incomplete opacification urinary bladder lumen. ??Consider cystoscopy for further evaluation given the history of hematuria. ??There are no suspicious upper tract lesions. 2. ??Diffuse stranding throughout the retroperitoneum and mesentery of uncertain significance. ??These findings could be secondary to generalized volume overload, such as in the setting of heart failure, or potentially secondary to liver disease, as there is some suggestion of hepatic fibrosis without gross surface nodularity. Correlation with clinical volume status and echocardiogram is recommended. ??Additionally, MR or US elastography could be performed to assess for evidence of cirrhosis. 3. ??Scattered mildly enlarged lymph nodes throughout the retroperitoneum and pelvis that are also increased in number. Although these lymph nodes are likely reactive and could be related to the above-described edema, malignancy remains a less likely consideration. ??Consider a short-term (3 months) follow-up CT to assess for stability or comparison with prior cross-sectional imaging, if available. Electronically signed by: Rolando Romero M.D. Requested By: ISAI MARTINEZ ??Chip. ? Dictated By: ?? ROLANDO ROMERO M.D. ??on Jul ??2017 ??3:30P This document has been electronically signed by: ROLANDO ROMERO M.D. on Jul 27 2017 ??3:30P ROLANDO ROMERO M.D. FINAL REPORT Attending: ??JUAN, ??ISAI Requesting: ??JUAN, ??ISAI Requesting Fax: ?? Attending Fax: ?? Attending ID: ??[id number] Requesting ID: ??[id number] Report To 1 ID: ??[id number] ? Report To 1 Name: ??, ?? Report To 1 FAX: ?? Next[facility] Order #: ?? Procedure Note Miscellaneous, Not In File - 07/27/2017 ROLANDO ROMERO M.D. FINAL REPORT ACC# Date Time Exam [id number] Jul 27, 2017 14:57:00 [id number] 3-DRendering sep Modality [id number] Jul 27, 2017 14:57:[id number] Abd & Pelvis w/wo EXAMINATION: 1. CT UROGRAPHY WITH AND WITHOUT CONTRAST 2. 3D RENDERING HISTORY: Hematuria TECHNIQUE: CT urography of the abdomen and pelvis was performed prior to and following the uneventful intravenous administration of mL Optiray 350 in the combined nephrographic and excretory phases according to a split bolus protocol. Post-processed 3D images were generated on a dedicated workstation and also reviewed. COMPARISON: No prior studies were available for comparison. FINDINGS: UROGRAPHIC FINDINGS: Right Kidney: The right kidney measures 13.5 cm pole to pole. Small cyst is noted in the upper pole of the right kidney. There are no suspicious focal lesions. No calculi are seen. There is no hydronephrosis. The distal ureter is nonopacified, but the opacified portions appear normal. The urothelium appears normal. Left Kidney: The left kidney measures 13.7 cm pole to pole. Small cyst is noted in the interpolar region. There are no suspicious focal lesions. No calculi are seen. There is no hydronephrosis. Several short segments of the proximal ureter are not opacified, but the opacified portions appear normal. The urothelium appears normal. Bladder: There is moderate circumferential bladder wall thickening. Anterior lumen of the urinary bladder is not well-opacified. Submucosal fat deposition is seen throughout the urinary bladder. No discrete masses are seen. NON-UROGRAPHIC FINDINGS: There is mild left basilar atelectasis. Lung bases are otherwise clear. Trace pericardial fluid is seen. Heart size is normal. There is suggestion of some central liver atrophy. The caudate lobe may be mildly enlarged. No focal liver lesions are seen. No biliary ductal dilatation. The gallbladder is decompressed. The spleen is normal. Stranding is seen throughout the retroperitoneum and the mesentery. Some of the stranding surrounds the pancreas, which is otherwise normal in appearance. The adrenal glands are normal. There are no dilated loops of small or large bowel. Mesenteric vessels appear patent. There are multiple prominent retroperitoneal and pelvic lymph nodes. These nodes are increased in number but only minimally increased in size. For reference, a left retroperitoneal lymph node measures 2.0 x 1.3 cm (SP -1004). A right external iliac lymph node measures 2.9 x 1.3 cm (SP -831). Multilevel degenerative changes are seen in the lumbar spine. IMPRESSION: 1. Circumferential moderate urinary bladder wall-thickening without discrete mass, though evaluation of the urothelium is limited by incomplete opacification urinary bladder lumen. Consider cystoscopy for further evaluation given the history of hematuria. There are no suspicious upper tract lesions. 2. Diffuse stranding throughout the retroperitoneum and mesentery of uncertain significance. These findings could be secondary to generalized volume overload, such as in the setting of heart failure, or potentially secondary to liver disease, as there is some suggestion of hepatic fibrosis without gross surface nodularity. Correlation with clinical volume status and echocardiogram is recommended. Additionally, MR or US elastography could be performed to assess for evidence of cirrhosis. 3. Scattered mildly enlarged lymph nodes throughout the retroperitoneum and pelvis that are also increased in number. Although these lymph nodes are likely reactive and could be related to the above-described edema, malignancy remains a less likely consideration. Consider a short-term (3 months) follow-up CT to assess for stability or comparison with prior cross-sectional imaging, if available. Electronically signed by: Rolando Romero M.D. Requested By: ISAI MARTINEZ M.D. Dictated By: ROLANDO ROMERO M.D. on Jul 27 2017 3:30P This document has been electronically signed by: ROLANDO ROMERO M.D. on Jul 27 2017 3:30P ROLANDO ROMERO M.D. FINAL REPORT Attending: ISAI MARTINEZ Requesting: ISAI MARTINEZ Requesting Fax: Attending Fax: Attending ID: [id number] Requesting ID: [id number] Report To 1 ID: [id number] Report To 1 Name: , Report To 1 FAX: [facility] Order #: Isai Martinez MD IMG MRI PROCEDURES Final Resul t documented in this encounter Visit Diagnoses Not on filedocumented in this encounter Care Teams Sew On Operator Relationship Specialty Start Date End Date Jessica Kurtz NP [address] [place] [address] PCP - General 07/21/17 10/07/19 documented as of this encounter
== END 2024-05-15 08:06 | disposition home or self-care (01) ==
PROVIDERS: PCP Internal Medicine; Visit Provider Physician Assistant Surgical
DX: M47.892 Other spondylosis, cervical region (principal)
CPT/HCPCS: 72141